=== PATIENT | female | born 1985 | race Caucasian/White ===

== ENCOUNTER 2016-07-07 12:25 | Emergency (ER) | payer OTHER ==
[~2016-07-07] VITALS: Ht 152.4 cm; Wt 105.0 kg
[~2016-07-07 12:25] MED LIST: ALBUAER19 INH; BUSP15TA70 PO; TIZA4CAP PO
[2016-07-07 12:39] VITALS: TEMP 36.7; Ht 152.4 cm; Wt 105.0 kg
[2016-07-07] MEDS ORDERED: SODIUM CHLORIDE 0.9% 1000ML 1,000 ML IV STA (13:09)
[2016-07-07] MEDS ORDERED: MoRPHine SULFATE 10 MG/ML CARP/VIAL IV STA (13:09)
[2016-07-07] MEDS ORDERED: ONDANSETRON INJ 2 MG/ML 2 ML VIAL IV STA (13:09)
[2016-07-07 13:36] LABS: BASO % 0.5 %; BASO ABS # 0.04 K/uL (0-0.2); COMPLETE YES; EOS % 1.3 %; HEMATOCRIT 38.7 % (37-47); IG% 0.3 %; LYMPH % 19.6 %; MEAN CELL VOLUME 88.6 fL (80-100); MEAN CORPUSCULAR HEMOGLOBIN 30.7 pg (25-34); MEAN CORPUSCULAR HGB CONC 34.6 g/dl (32-36); MEAN PLATELET VOLUME 9.7 fL (7.4-10.4); MONO % 5.7 %; NEUT % 72.6 %; PLATELET COUNT 280 K/uL (130-400); RED BLOOD COUNT 4.37 M/uL (4.2-5.4); WHITE BLOOD COUNT 7.66 K/uL (4.8-10.8)
[2016-07-07 14:03] LABS: BUN/CREATININE RATIO 12.2 (10-20); CALCIUM 9.2 mg/dl (8.5-10.1); CREATININE 0.72 mg/dl (0.60-1.20); POTASSIUM 3.5 mmol/L (3.5-5.1)
--- NOTE | 2016-07-07 14:11 | DIAGNOSTIC IMAGING REPORT ---
L-SPINE MIN 4 VIEWS ROUTINE CLINICAL HISTORY: Fall, back pain COMPARISON STUDY: 09/28/2015 FINDINGS: The bones are osteopenic. There is gaseous distention of the colon. There is an exaggerated lumbar lordosis. No acute fractures or traumatic subluxations are visualized. There are postsurgical changes of a presumed prior posterior spinal decompression. There is gaseous distention of the colon. IMPRESSION: 1. Exaggerated lumbar lordosis. No acute fractures or traumatic subluxations identified 2. Gaseous distention of the colon Electronically signed by: Jeff Oro M.D. 07/07/2016 2:09 PM Dictated Date/Time: 07/07/2016 2:07 PM
--- NOTE | 2016-07-07 14:13 | DIAGNOSTIC IMAGING REPORT ---
PELVIS/RIGHT HIP 2-3VIEWS CLINICAL HISTORY: Fall, back pain, right hip pain Right COMPARISON STUDY: None. FINDINGS: No fracture or dislocation within the pelvis or hips. The sacrum appears intact. Soft tissues are unremarkable. IMPRESSION: No fracture or dislocation within the pelvis or hips. Electronically signed by: Jonn Ling M.D. 07/07/2016 2:12 PM Dictated Date/Time: 07/07/2016 2:09 PM
--- NOTE | 2016-07-07 14:14 | DIAGNOSTIC IMAGING REPORT ---
THORACIC SPINE 3 VIEWS ROUTINE CLINICAL HISTORY: Fall, back pain COMPARISON STUDY: 05/02/2015 FINDINGS: The paraspinal line is not displaced. No acute fractures are visualized. There are no subluxations. There are minimal degenerative changes. There are surgical clips in the right upper quadrant consistent with a prior cholecystectomy. IMPRESSION: No acute fractures or subluxations identified. Electronically signed by: Jeff Oro M.D. 07/07/2016 2:12 PM Dictated Date/Time: 07/07/2016 2:11 PM
[2016-07-07] MEDS ORDERED: MoRPHine SULFATE 4 MG/ML 1 ML CARP\\VIAL IV STA (14:23)
--- NOTE | 2016-07-07 15:33 | DIAGNOSTIC IMAGING REPORT ---
LUMBAR SPINE CT CT DOSE: 3970.13 mGy.cm HISTORY: Fall, back pain, severe pain TECHNIQUE: Multiaxial CT images of the lumbar spine were performed and reformatted in the sagittal and coronal plane without the use of contrast. COMPARISON: Lumbar spine MRI 07/14/2013. Lumbar spine radiograph 07/07/2016. 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 Exaggeration of the lumbar lordosis. Partial fusion of the narrowed L5-S1 disc space remains unchanged. There are laminectomies at L3 and S1. There is fusion of the L5-S1 facets. Moderate facet degenerative changes within the mid to lower lumbar spine. No acute fracture or subluxation. Soft tissue density within the subcutaneous fat of the lower lumbar region favors postoperative change/scarring. IMPRESSION: 1. No acute fractures or subluxation within the lumbar spine. 2. Postoperative changes as described above. Electronically signed by: Jonn Ling M.D. 07/07/2016 3:31 PM Dictated Date/Time: 07/07/2016 3:25 PM
--- NOTE | 2016-07-07 15:34 | DIAGNOSTIC IMAGING REPORT ---
CT PELVIS NO IV/ORAL CONT (CT) CT DOSE: CLINICAL HISTORY: Severe pelvic pain status post trauma TECHNIQUE: Helical images were acquired in the transverse plane. Reformatted images were acquired COMPARISON STUDY: CT scan of the abdomen pelvis dated 06/03/2015 FINDINGS: There is no evidence of SI joint diastases. There is no evidence of symphysis diastases. No acute fractures are visualized. There is a stable spur/osteochondroma arising from the posterior aspect of the right iliac bone. The uterus is surgically absent. There is no free pelvic fluid. There is mild fecal retention. There are postsurgical changes present within the lumbar spine. IMPRESSION: 1. Postsurgical changes within the lumbar spine 2. No acute fractures or subluxations are visualized. Electronically signed by: Jeff Oro M.D. 07/07/2016 3:32 PM Dictated Date/Time: 07/07/2016 3:28 PM
--- NOTE | 2016-07-07 15:41 | DIAGNOSTIC IMAGING REPORT ---
THORACIC SPINE CT CT DOSE: HISTORY: Fall, back pain, severe pain TECHNIQUE: Multiaxial CT images of the thoracic spine were performed and reformatted in the sagittal and coronal plane without the use of contrast. COMPARISON: Thoracic spine 07/07/2016. FINDINGS: There is bilateral lower lobe subsegmental atelectasis. No pneumothorax. The paraspinal soft tissues are unremarkable. Mild degenerative disc disease throughout the thoracic spine with tiny endplate osteophytes. Vertebral body heights are maintained. No fracture or subluxation within the thoracic spine. IMPRESSION: No fractures within the thoracic spine. Electronically signed by: Jonn Ling M.D. 07/07/2016 3:40 PM Dictated Date/Time: 07/07/2016 3:31 PM
[2016-07-07] MEDS ORDERED: DiphenhydrAMINE HCL 50 MG/ML VIAL IV STA (16:34)
[2016-07-07] MEDS ORDERED: HYDROmorphone INJ 0.5 MG/0.5 ML SYR IV STA (17:04)
--- NOTE | 2016-07-07 17:17 | EMERGENCY ROOM VISIT NOTE ---
History First contact with patient: 12:56 Chief Complaint: BACK PAIN Stated Complaint: BACK AND HIP PAIN History of Present Illness The patient is a 30 year old female who presents to the Emergency Room with complaints of "back and hip pain". The patient states that around 8:30 AM she was at home, and was walking and believe her right leg gave out on her, causing her to slip and her legs buckled under her and she fell down, twisting her back and striking her right hip, buttock and right lower back off of the floor. She was able to stand up with help then. She points to her right lower back and right hip as a location of the pain. She states these regions feels that they are popping. She also has a shooting pain going down her leg on the right. She rates her pain as a 9/10 and notes she can take morphine or Dilaudid and usually takes Zofran for nausea. She notes she also has cervical palsy. The patient notes that she has not had any incontinence. She does believe that her leg does feel little weak and she doesn't believe that her genital region does feel a little numb. Review of Systems A complete 10-point Review of Systems was discussed with the patient, with pertinent positives and negatives listed in the History of Present Illness. All remaining Review of Systems questions can be considered negative unless otherwise specified. Past Medical/Surgical History Medical Problems: (1) Anxiety disorder (2) Asthma (3) Cerebral palsy (4) Depression (5) GERD (gastroesophageal reflux disease) (6) Hypertension (7) Insulin resistance (8) lysis of adhesions (9) MRSA (methicillin resistant Staphylococcus aureus) (10) Paralysis of both lower limbs (11) Suicidal ideations Surgical Problems: (1) H/O dilation and curettage (2) H/O shoulder surgery (3) History of hysterectomy (4) History of laminectomy (5) Hx of cholecystectomy (6) Hx of eye surgery (7) Hx of spinal fusion (8) S/P surgical manipulation of ankle joint Family History Diabetes mellitus FHx: gallbladder disease Hypertension Social History Smoking Status: Never Smoker Alcohol Use: none Drug Use: none Marital Status: single Housing Status: lives alone Occupation Status: employed, disabled Current/Historical Medications Scheduled Baclofen (Lioresal), 10 MG PO TID Buspirone Hcl (Buspar), 10 MG PO TID Cetirizine (Zyrtec), 10 MG PO QAM Diazepam (Valium), 5 MG PO BID Duloxetine Hcl (Cymbalta), 60 MG PO QAM Duloxetine Hcl (Cymbalta), 20 MG PO QAM Esomeprazole Magnesium (Nexium), 40 MG PO DAILY Fluticasone-Salmeterol 115/21 Mcg (Advair Hfa 115/21 Mcg), 1 PUFF INH BID Lactobacillus-Inulin (Culturelle), 1 CAP PO QAM Lisinopril (Lisinopril), 10 MG PO DAILY Mometasone Furoate-Formoterol (Dulera 200/5 Mcg), 2 PUFFS INH BID Montelukast Sodium (Singulair), 10 MG PO HS Topiramate (Topamax), 200 MG PO BID Scheduled PRN Albuterol Inhaler (Ventolin Inhaler), 2 PUFFS INH QID PRN for RESP SX Allergies Coded Allergies: Aztreonam (Verified Allergy, Severe, SHORTNESS OF BREATH, 07/07/16) Cephalosporins (Verified Allergy, Severe, SHORTNESS OF BREATH, 07/07/16) Linezolid (Verified Allergy, Severe, SHORTNESS OF BREATH, 07/07/16) Penicillins (Verified Allergy, Severe, SHORTNESS OF BREATH, 07/07/16) Sulfa Antibiotics (Verified Allergy, Severe, SHORTNESS OF BREATH, 07/07/16) TOLERATED TAMSULOSIN; REPORTS SOB WITH BACTRIM Fexofenadine (Verified Allergy, Intermediate, HIVES, 07/07/16) Oxycodone (Verified Allergy, Intermediate, HIVES-ABLE TO TAKE DILAUDID, ) Beta Adrenergic Blockers (Verified Allergy, Unknown, unknown, 07/07/16) Latex1 -Allergic Contact Dermititis (Verified Allergy, Unknown, RASH, 07/07) Meperidine (Verified Allergy, Unknown, RESPIRATORY DISTRESS, 07/07/16) Neomycin (Verified Allergy, Unknown, 07/07/16) Propoxyphene (Verified Allergy, Unknown, UNKNOWN, 07/07/16) Quinolones (Verified Allergy, Unknown, QUINOLONES-SOB, CAN TAKE CIPRO W/O PROBLEM, 07/07/16) Pt denies cipro allergy. States she has taken in the past Tetracycline (Verified Allergy, Unknown, 07/07/16) Verapamil (Verified Allergy, Unknown, UNKNOWN, 07/07/16) Physical Exam Vital Signs Date Time Temp Pulse Resp B/P Pulse Ox O2 Delivery O2 Flow Rate FiO2 07/07/16 17:51 65 20 107/73 94 07/07/16 16:49 110 21 107/73 94 Room Air 07/07/16 14:38 93 20 110/62 98 Room Air 07/07/16 12:39 36.7 101 18 132/83 98 Room Air Pain Rating (0-10): 10.0 Physical Exam VITAL SIGNS - Vital signs and nursing notes were reviewed. Patient is afebrile , normotensive, she is slightly tachycardic at a rate of 101 bpm, but saturating on room air 98%. GENERAL -30-year-old female appearing her stated age who is in no acute distress. Communicates well with provider and answers questions appropriately. SKIN - Without rashes. No breaks in the integument. HEAD - NC/AT. EYES - PERRL with EOMI bilaterally. Sclera anicteric. Palpebral conjunctiva pink and moist with no injection noted. EARS - No deformities of external structures noted on gross examination bilaterally. NOSE - Midline and without cyanosis. No epistaxis or purulent drainage noted. MOUTH/OROPHARYNX - Without perioral cyanosis. NECK/MUSUCULOSKEKETAL - Neck with FROM. No C-spine tenderness. There is tenderness to palpation overlying the thoracic, lumbar and right hip region. LUNGS - Chest wall symmetric without accessory muscle use, intercostals retractions, or central cyanosis. Normal vesicular breath sounds CTA B/L. No wheezes, rales, or rhonchi appreciated. CARDIAC - RRR with S1/S2. No murmur, rubs, or gallops appreciated. ABDOMEN - Abdominal contour without pulsations or visible masses. BS normoactive all four quadrants. No tenderness, palpable masses, hepatosplenomegaly, or ascites noted. EXTREMITIES - No clubbing or peripheral cyanosis. No pretibial edema present. Patient vascular intact in her extremities. +5/5 strength noted in UE/LE bilaterally. No evidence of cauda equina syndrome. NEUROLOGIC - Cranial nerves II through XII grossly intact. Sensory intact to light touch throughout. PSYCH - A&Ox3 and cooperates fully with examiner. Pt is very pleasant and interacts well with examiner. Medical Decision & Procedures ER Provider Diagnostic Interpretation: LUMBAR SPINE CT CT DOSE: 3970.13 mGy.cm HISTORY: Fall, back pain, severe pain TECHNIQUE: Multiaxial CT images of the lumbar spine were performed and reformatted in the sagittal and coronal plane without the use of contrast. COMPARISON: Lumbar spine MRI 07/14/2013. Lumbar spine radiograph 07/07/2016. 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 Exaggeration of the lumbar lordosis. Partial fusion of the narrowed L5-S1 disc space remains unchanged. There are laminectomies at L3 and S1. There is fusion of the L5-S1 facets. Moderate facet degenerative changes within the mid to lower lumbar spine. No acute fracture or subluxation. Soft tissue density within the subcutaneous fat of the lower lumbar region favors postoperative change/scarring. IMPRESSION: 1. No acute fractures or subluxation within the lumbar spine. 2. Postoperative changes as described above. Electronically signed by: Jonn Ling M.D. 07/07/2016 3:31 PM Dictated Date/Time: 07/07/2016 3:[address] PELVIS NO IV/ORAL CONT (CT) CT DOSE: CLINICAL HISTORY: Severe pelvic pain status post trauma TECHNIQUE: Helical images were acquired in the transverse plane. Reformatted images were acquired COMPARISON STUDY: CT scan of the abdomen pelvis dated 06/03/2015 FINDINGS: There is no evidence of SI joint diastases. There is no evidence of symphysis diastases. No acute fractures are visualized. There is a stable spur/osteochondroma arising from the posterior aspect of the right iliac bone. The uterus is surgically absent. There is no free pelvic fluid. There is mild fecal retention. There are postsurgical changes present within the lumbar spine. IMPRESSION: 1. Postsurgical changes within the lumbar spine 2. No acute fractures or subluxations are visualized. Electronically signed by: Jeff Oro M.D. 07/07/2016 3:32 PM Dictated Date/Time: 07/07/2016 3:[address] DOSE: HISTORY: Fall, back pain, severe pain TECHNIQUE: Multiaxial CT images of the thoracic spine were performed and reformatted in the sagittal and coronal plane without the use of contrast. COMPARISON: Thoracic spine 07/07/2016. FINDINGS: There is bilateral lower lobe subsegmental atelectasis. No pneumothorax. The paraspinal soft tissues are unremarkable. Mild degenerative disc disease throughout the thoracic spine with tiny endplate osteophytes. Vertebral body heights are maintained. No fracture or subluxation within the thoracic spine. IMPRESSION: No fractures within the thoracic spine. Electronically signed by: Jnon Ling M.D. 07/07/2016 3:40 PM Dictated Date/Time: 07/07/2016 3:31 PM PELVIS/RIGHT HIP 2-3VIEWS CLINICAL HISTORY: Fall, back pain, right hip pain Right COMPARISON STUDY: None. FINDINGS: No fracture or dislocation within the pelvis or hips. The sacrum appears intact. Soft tissues are unremarkable. IMPRESSION: No fracture or dislocation within the pelvis or hips. Electronically signed by: Jonn Ling M.D. 07/07/2016 2:12 PM Dictated Date/Time: 07/07/2016 2:09 PM L-SPINE MIN 4 VIEWS ROUTINE CLINICAL HISTORY: Fall, back pain COMPARISON STUDY: 09/28/2015 FINDINGS: The bones are osteopenic. There is gaseous distention of the colon. There is an exaggerated lumbar lordosis. No acute fractures or traumatic subluxations are visualized. There are postsurgical changes of a presumed prior posterior spinal decompression. There is gaseous distention of the colon. IMPRESSION: 1. Exaggerated lumbar lordosis. No acute fractures or traumatic subluxations identified 2. Gaseous distention of the colon Electronically signed by: Jeff Oro M.D. 07/07/2016 2:09 PM Dictated Date/Time: 07/07/2016 2:07 PM THORACIC SPINE 3 VIEWS ROUTINE CLINICAL HISTORY: Fall, back pain COMPARISON STUDY: 05/02/2015 FINDINGS: The paraspinal line is not displaced. No acute fractures are visualized. There are no subluxations. There are minimal degenerative changes. There are surgical clips in the right upper quadrant consistent with a prior cholecystectomy. IMPRESSION: No acute fractures or subluxations identified. Electronically signed by: Jeff Oro M.D. 07/07/2016 2:12 PM Dictated Date/Time: 07/07/2016 2:11 PM Laboratory Results 07/07/16 13:20 Red Blood Count 4.37, Mean Corpuscular Volume 88.6, Mean Corpuscular Hemoglobin 30.7, Mean Corpuscular Hemoglobin Concent 34.6, Mean Platelet Volume 9.7, Neutrophils (%) (Auto) 72.6, Lymphocytes (%) (Auto) 19.6, Monocytes (%) (Auto) 5.7, Eosinophils (%) (Auto) 1.3, Basophils (%) (Auto) 0.5, Neutrophils # (Auto) 5.56, Lymphocytes # (Auto) 1.50, Monocytes # (Auto) 0.44, Eosinophils # (Auto) 0.10, Basophils # (Auto) 0.04 07/07/16 13:20 Test 07/07/16 13:20 White Blood Count 7.66 K/uL (4.8-10.8) Red Blood Count 4.37 M/uL (4.2-5.4) Hemoglobin 13.4 g/dL (12.0-16.0) Hematocrit 38.7 % (37-47) Mean Corpuscular Volume 88.6 fL (80-100) Mean Corpuscular Hemoglobin 30.7 pg (25-34) Mean Corpuscular Hemoglobin Concent 34.6 g/dl (32-36) Platelet Count 280 K/uL (130-400) Mean Platelet Volume 9.7 fL (7.4-10.4) Neutrophils (%) (Auto) 72.6 % Lymphocytes (%) (Auto) 19.6 % Monocytes (%) (Auto) 5.7 % Eosinophils (%) (Auto) 1.3 % Basophils (%) (Auto) 0.5 % Neutrophils # (Auto) 5.56 K/uL (1.4-6.5) Lymphocytes # (Auto) 1.50 K/uL (1.2-3.4) Monocytes # (Auto) 0.44 K/uL (0.11-0.59) Eosinophils # (Auto) 0.10 K/uL (0-0.5) Basophils # (Auto) 0.04 K/uL (0-0.2) RDW Standard Deviation 49.6 fL (36.4-46.3) RDW Coefficient of Variation 15.3 % (11.5-14.5) Immature Granulocyte % (Auto) 0.3 % Immature Granulocyte # (Auto) 0.02 K/uL (0.00-0.02) Anion Gap 11.0 mmol/L (3-11) Est Creatinine Clear Calc Drug Dose 126.1 ml/min Estimated GFR () 131.2 Estimated GFR (Non- 113.2 BUN/Creatinine Ratio 12.2 (10-20) Calcium Level 9.2 mg/dl (8.5-10.1) Medications Administered Medications (Trade) Dose Ordered Sig/[place] Route Start Time Stop Time Status Last Admin Dose Admin Sodium Chloride (Nss 1000ml) 1,000 ml @ 999 mls/hr Q1H1M STAT IV 07/07/16 13:09 07/07/16 14:09 DC 07/07/16 13:22 999 MLS/HR Morphine Sulfate (MoRPHine SULFATE INJ) 6 mg NOW STAT IV 07/07/16 13:09 07/07/16 13:13 DC 07/07/16 13:22 6 MG Ondansetron HCl (Zofran Inj) 4 mg NOW STAT IV 07/07/16 13:09 07/07/16 13:13 DC 07/07/16 13:22 4 MG Morphine Sulfate (MoRPHine SULFATE INJ) 4 mg NOW STAT IV 07/07/16 14:23 07/07/16 14:25 DC 07/07/16 14:36 4 MG Diphenhydramine HCl (Benadryl Inj) 25 mg NOW STAT IV 07/07/16 16:34 07/07/16 16:35 DC 07/07/16 16:47 25 MG Hydromorphone HCl (Dilaudid Inj) 0.25 mg NOW STAT IV 07/07/16 17:04 07/07/16 17:05 DC 07/07/16 17:38 0.25 MG Medical Decision Patient was seen and evaluated as above. After obtaining a thorough history and physical examination IV access was obtained and a CBC, PRP, UA clean catch culture if indicated was ordered secondary to subjective and objective examination findings. For imaging thoracic spine, L-spine and pelvis with unilateral hip of the right was ordered secondary to subjective and objective examination findings. 6 mg of morphine and 4 mg of Zofran were ordered secondary to pain. 1000 mL of NSS secondary to her appearing to be slightly dehydrated. The Zofran was to help with any nausea. Results as above of the radiographs. I agree with the radiologists findings. In the absence of any fracture but with persistence of the patient's pain I was concerned for underlying occult fracture. CT scan of the lumbar, thoracic and pelvic region was ordered to rule out occult fracture. Results as above. Negative for acute findings. Incidental findings discussed with the patient. She then requested more pain medication therefore an additional 4 mg of morphine was provided to the patient as well as 25 mg of Benadryl per her request as she noted that she was experiencing itching but states this is a typical side effect of these medications and did request them. CBC reveals no leukocytosis or anemia. PRP revealed normal electrolytes with slight elevation in chloride at 111. No evidence of kidney failure. She was then reevaluated and still noted to be feeling pain and requested Dilaudid. I was very hesitant to do such but did agree to provide her with 0.25 mg of Dilaudid after a period of time and also to ensure that she did not have any respiratory depression. She initially wanted a voucher to go home or have the ambulance take her home but I started her that ambulance would not be able to take her home but I could perhaps request a voucher for taxi. She then noted that her mother would be coming to pick her up. The patient at this time I believe is stable for discharge and does not have any fractures and is likely experiencing musculoskeletal strain without emergent findings. The incidental findings she is to follow-up with her family doctor for. She was educated upon management of today's findings. She was educated upon worrisome symptoms in which to return. She had questions answered prior to discharge and was discharged home in good condition. In the evaluation and treatment of this patient the following differential diagnoses were entertained: Contusion of the spine, fracture of the thoracic, lumbar, pelvis and hip region, malingering, factitious disorder, drug-seeking behavior, among others. I do not suspect cauda equina syndrome in this case. [place] Drug Monitoring Program Search Results: patient reviewed within database, no issues identified Impression Primary Impression: Fall Additional Impression: Back pain due to injury Departure Information Dispostion Home / Self-Care Condition GOOD Referrals No Doctor, Assigned (PCP) Patient Instructions [facility] Additional Instructions You have been treated in the Emergency Department for Back Pain after a fall. You have received pain medicine in the emergency department which impairs your ability to operate a vehicle. It is illegal for you to drive after receiving these medicines. 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 PLEASE FOLLOW UP WITH YOUR FAMILY DOCTOR FOR THIS If this is an acute injury, ice can be applied to the area of pain for the first 3 days to help decrease pain and inflammation. After the first 3 days, a heating pad can be used over the area for continued soothing relief. You should schedule a follow-up appointment in 2-3 days with your Primary Care Provider for further evaluation and treatment of your back pain. Return to the Emergency Department if your current symptoms worsen despite treatment course outlined above, or if you develop any of the following symptoms : intractable pain despite aforementioned treatment course, loss of control of your bowel or bladder, numbness or tingling in your groin, or development of a fever. Problem Qualifiers Primary Impression: Fall Encounter type: initial encounter Qualified Codes: W19.XXXA - Unspecified fall, initial encounter
[2016-07-07 17:51] VITALS: BP 107/73; PULSE 65; O2SAT 94
[2016-07-11] MEDS ORDERED: NXM/40 PO (13:54)
[2016-07-11] MEDS ORDERED: DULO60CA44 PO (13:54)
[2016-08-18] MEDS ORDERED: DULO-24 PO (14:29)
[2016-12-17] MEDS ORDERED: NXM/40 PO (06:51)
[2016-12-17] MEDS ORDERED: CETI10TA84 PO (13:34)
[2016-12-17] MEDS ORDERED: LISI-461 PO (13:47)
[2016-12-17] MEDS ORDERED: LACT10CA3 PO (14:30)
[2016-12-17] MEDS ORDERED: FLUT115A INH (14:31)
[2016-12-17] MEDS ORDERED: ONDA4TAB10 SL (15:11)
[2016-12-17] MEDS ORDERED: VLM5CL PO (15:11)
[2016-12-17] MEDS ORDERED: PRVHFAIN INH (15:57)
[2016-12-17] MEDS ORDERED: CMP/10 PO (17:09)
== END 2016-07-07 17:52 | disposition home or self-care (01) ==
LOC: C.EDB 12:30 → C.EDC 17:52
DX: M54.9 Dorsalgia, unspecified (principal); W01.0XXA Fall on same level from slipping, tripping and stumbling without subsequent striking against object, initial encounter; F41.9 Anxiety disorder, unspecified; G80.9 Cerebral palsy, unspecified; F32.9 Major depressive disorder, single episode, unspecified; K21.9 Gastro-esophageal reflux disease without esophagitis; I10 Essential (primary) hypertension

== ENCOUNTER 2016-07-09 10:55 | Emergency (ER) | payer OTHER ==
[~2016-07-09] VITALS: Ht 152.4 cm; Wt 105.0 kg
[~2016-07-09 10:55] MED LIST changes: -TIZA4CAP PO
[2016-07-09 11:05] VITALS: Ht 152.4 cm; Wt 105.0 kg
[2016-07-09] MEDS ORDERED: HYDROmorphone INJ 2 MG/ML SYR/VIAL IM STA (11:42)
[2016-07-09] MEDS ORDERED: DiphenhydrAMINE HCL 50 MG/ML VIAL IM STA (12:19)
[2016-07-09] MEDS ORDERED: HYDROmorphone INJ 1 MG/ML SYR IV STA (14:10)
[2016-07-09] MEDS ORDERED: LORAZEPAM 2 MG/ML 1 ML VIAL IV STA (14:10)
[2016-07-09] MEDS ORDERED: LORAZEPAM 1 MG TAB PO STA (15:17)
[2016-07-09] MEDS ORDERED: HYDROmorphone INJ 1 MG/ML SYR IM STA ×2 (15:17→17:27)
--- NOTE | 2016-07-09 16:30 | DIAGNOSTIC IMAGING REPORT ---
MRI LUMBAR SPINE W/O CONTRAST CLINICAL HISTORY: Back pain, trauma, lower extremity numbness. TECHNIQUE: Sagittal and axial T1, T2 and STIR images were obtained. COMPARISON STUDY: CT scan dated 07/07/2016 OBSERVATIONS: The vertebral bodies and posterior elements appear intact. There is no abnormal bony signal present to suggest a marrow replacement process. L1-2: No disc protrusions or extrusions. No evidence of spinal canal or neural foraminal compromise. L2-3: No disc protrusions or extrusions. No evidence of spinal canal or neural foraminal compromise. Postlaminectomy changes are visualized. L3-4: There is a circumferential disc bulge. There are equivocal small foraminal disc protrusions. There is mild bilateral foraminal narrowing. There are postlaminectomy changes. There is no significant spinal stenosis L4-5: There is a mild circumferential disc bulge. There are postlaminectomy changes. There is no significant spinal or foraminal stenosis. L5-S1: There is an annular fissure. There are postlaminectomy changes. There is no significant spinal or foraminal stenosis. The conus medullaris and cauda equina appear normal. IMPRESSION: 1. There are no areas of marrow edema to indicate occult fracture 2. No lesions of the distal spinal cord are visualized. 3. Postlaminectomy changes at the L2-L5 level 4. L3-4 disc bulge/protrusion. No evidence of spinal stenosis. Mild bilateral foraminal narrowing. Electronically signed by: Jeff Oro M.D. 07/09/2016 4:29 PM Dictated Date/Time: 07/09/2016 4:22 PM
[2016-07-09 17:07] LABS: URINE APPEARANCE CLEAR (CLEAR); URINE BILIRUBIN NEG (NEG); URINE COLOR YELLOW; URINE EPITHELIAL CELL AUTO >30 /lpf (0-5); URINE NITRITE NEG (NEG); URINE PH 5.5 (4.5-7.5); URINE SPECIFIC GRAVITY 1.019 (1.000-1.030); UROBILINOGEN NEG (NEG); ZZURINE CULT IF INDIC CATH NO
[2016-07-09 17:11] LABS: MANUAL MICROSCOPIC REQUIRED? NO; REVIEW REQ? YES
[2016-07-09 17:23] VITALS: BP 126/78; PULSE 77; O2SAT 98
--- NOTE | 2016-07-09 17:27 | EMERGENCY ROOM VISIT NOTE ---
History First contact with patient: 11:27 Chief Complaint: BACK PAIN Stated Complaint: INCREASED BACK AND LEG PAIN History of Present Illness The patient is a 30 year old female who presents to the Emergency Room with complaints of low back pain. The patient reports that she fell 2 days ago and was seen here. She states that she had imaging done at that time which was negative. She states that her pain is worsening and while she was at physical therapy today her pain worsened significantly. She states the pain is in her low back and she rates it a 9/10. She reports that she is having difficulty walking and moving secondary to pain. The patient does have chronic back issues and states that she sees [facility] neurology for these problems. She has been taking ibuprofen without relief. She denies any new numbness, weakness , urinary retention or incontinence. Review of Systems A complete 10-point Review of Systems was discussed with the patient, with pertinent positives and negatives listed in the History of Present Illness. All remaining Review of Systems questions can be considered negative unless otherwise specified. Past Medical/Surgical History Medical Problems: (1) Anxiety disorder (2) Asthma (3) Cerebral palsy (4) Depression (5) GERD (gastroesophageal reflux disease) (6) Hypertension (7) Insulin resistance (8) lysis of adhesions (9) MRSA (methicillin resistant Staphylococcus aureus) (10) Paralysis of both lower limbs (11) Suicidal ideations Surgical Problems: (1) H/O dilation and curettage (2) H/O shoulder surgery (3) History of hysterectomy (4) History of laminectomy (5) Hx of cholecystectomy (6) Hx of eye surgery (7) Hx of spinal fusion (8) S/P surgical manipulation of ankle joint Family History Diabetes mellitus FHx: gallbladder disease Hypertension Social History Smoking Status: Never Smoker Alcohol Use: none Drug Use: none Marital Status: single Housing Status: lives alone Occupation Status: employed, disabled Current/Historical Medications Scheduled Baclofen (Lioresal), 10 MG PO TID Buspirone Hcl (Buspar), 10 MG PO TID Cetirizine (Zyrtec), 10 MG PO QAM Diazepam (Valium), 5 MG PO BID Duloxetine Hcl (Cymbalta), 60 MG PO QAM Duloxetine Hcl (Cymbalta), 20 MG PO QAM Esomeprazole Magnesium (Nexium), 40 MG PO DAILY Fluticasone-Salmeterol 115/21 Mcg (Advair Hfa 115/21 Mcg), 1 PUFF INH BID Lactobacillus-Inulin (Culturelle), 1 CAP PO QAM Lisinopril (Lisinopril), 10 MG PO DAILY Mometasone Furoate-Formoterol (Dulera 200/5 Mcg), 2 PUFFS INH BID Montelukast Sodium (Singulair), 10 MG PO HS Topiramate (Topamax), 200 MG PO BID Scheduled PRN Albuterol Inhaler (Ventolin Inhaler), 2 PUFFS INH QID PRN for RESP SX Allergies Coded Allergies: Aztreonam (Verified Allergy, Severe, SHORTNESS OF BREATH, 07/09/16) Cephalosporins (Verified Allergy, Severe, SHORTNESS OF BREATH, 07/09/16) Linezolid (Verified Allergy, Severe, SHORTNESS OF BREATH, 07/09/16) Penicillins (Verified Allergy, Severe, SHORTNESS OF BREATH, 07/09/16) Sulfa Antibiotics (Verified Allergy, Severe, SHORTNESS OF BREATH, 07/09/16) TOLERATED TAMSULOSIN; REPORTS SOB WITH BACTRIM Fexofenadine (Verified Allergy, Intermediate, HIVES, 07/09/16) Oxycodone (Verified Allergy, Intermediate, HIVES-ABLE TO TAKE DILAUDID, ) Beta Adrenergic Blockers (Verified Allergy, Unknown, unknown, 07/09/16) Latex1 -Allergic Contact Dermititis (Verified Allergy, Unknown, RASH, 07/09) Meperidine (Verified Allergy, Unknown, RESPIRATORY DISTRESS, 07/09/16) Neomycin (Verified Allergy, Unknown, 07/09/16) Propoxyphene (Verified Allergy, Unknown, UNKNOWN, 07/09/16) Quinolones (Verified Allergy, Unknown, QUINOLONES-SOB, CAN TAKE CIPRO W/O PROBLEM, 07/09/16) Pt denies cipro allergy. States she has taken in the past Tetracycline (Verified Allergy, Unknown, 07/09/16) Verapamil (Verified Allergy, Unknown, UNKNOWN, 07/09/16) Physical Exam Vital Signs Date Time Temp Pulse Resp B/P Pulse Ox O2 Delivery O2 Flow Rate FiO2 07/09/16 17:23 77 20 126/78 98 Room Air 07/09/16 15:28 90/60 NIBP 07/09/16 15:20 88/57 07/09/16 15:18 81 18 89/44 96 Room Air 07/09/16 12:55 100 132/71 94 07/09/16 11:05 36.6 88 18 130/89 98 Room Air Physical Exam VITALS: Vitals are noted on the nurse's note and reviewed by myself. Vital signs stable. GENERAL: This is a 30-year-old female, in no acute distress, nondiaphoretic, well-developed well-nourished. SKIN: Capillary reflex less than 2 seconds. HEENT: Normocephalic. PERRLA. EOMI. Nares patent. Mucous membranes moist. Neck is supple without nuchal rigidity. HEART: Regular rate and rhythm without murmurs gallops or rubs. LUNGS: Clear to auscultation bilaterally without wheezes, rales or rhonchi. No retractions or accessory muscle use. ABDOMEN: Positive bowel sounds x 4. Soft, nontender to palpation. MUSCULOSKELETAL: Minimal tenderness to palpation of the lumbar region without focal tenderness. Full range of motion of the spine. Full range of motion of bilateral lower extremity. Strength 5/5. NEURO: Patient was alert and oriented to person place and time. Normal sensation to light and sharp touch. Deep tendon reflexes 2+ throughout. No focal neurological deficits. Medical Decision & Procedures ER Provider Diagnostic Interpretation: MRI LUMBAR SPINE W/O CONTRAST CLINICAL HISTORY: Back pain, trauma, lower extremity numbness. TECHNIQUE: Sagittal and axial T1, T2 and STIR images were obtained. COMPARISON STUDY: CT scan dated 07/07/2016 OBSERVATIONS: The vertebral bodies and posterior elements appear intact. There is no abnormal bony signal present to suggest a marrow replacement process. L1-2: No disc protrusions or extrusions. No evidence of spinal canal or neural foraminal compromise. L2-3: No disc protrusions or extrusions. No evidence of spinal canal or neural foraminal compromise. Postlaminectomy changes are visualized. L3-4: There is a circumferential disc bulge. There are equivocal small foraminal disc protrusions. There is mild bilateral foraminal narrowing. There are postlaminectomy changes. There is no significant spinal stenosis L4-5: There is a mild circumferential disc bulge. There are postlaminectomy changes. There is no significant spinal or foraminal stenosis. L5-S1: There is an annular fissure. There are postlaminectomy changes. There is no significant spinal or foraminal stenosis. The conus medullaris and cauda equina appear normal. IMPRESSION: 1. There are no areas of marrow edema to indicate occult fracture 2. No lesions of the distal spinal cord are visualized. 3. Postlaminectomy changes at the L2-L5 level 4. L3-4 disc bulge/protrusion. No evidence of spinal stenosis. Mild bilateral foraminal narrowing. Laboratory Results Test 07/09/16 16:47 Urine Color YELLOW Urine Appearance CLEAR (CLEAR) Urine pH 5.5 (4.5-7.5) Urine Specific [place] 1.019 (1.000-1.030) Urine Protein NEG (NEG) Urine Glucose (UA) NEG (NEG) Urine Ketones NEG (NEG) Urine Occult Blood NEG (NEG) Urine Nitrite NEG (NEG) Urine Bilirubin NEG (NEG) Urine Urobilinogen NEG (NEG) Urine Leukocyte Esterase SMALL (NEG) Urine WBC (Auto) 1-5 /hpf (0-5) Urine RBC (Auto) 0-4 /hpf (0-4) Urine Hyaline Casts (Auto) 5-10 /lpf (0-5) Urine Epithelial Cells (Auto) >30 /lpf (0-5) Urine Bacteria (Auto) NEG (NEG) Urine Renal Epithelial Cells /lpf (0-5) Medications Administered Medications (Trade) Dose Ordered Sig/[place] Route Start Time Stop Time Status Last Admin Dose Admin Hydromorphone HCl (Dilaudid Inj) 2 mg NOW STAT IM 07/09/16 11:42 07/09/16 11:43 DC 07/09/16 11:50 2 MG Diphenhydramine HCl (Benadryl Inj) 25 mg NOW STAT IM 07/09/16 12:19 07/09/16 12:20 DC 07/09/16 12:24 25 MG Ondansetron HCl (Zofran Odt) 4 mg ONE ONCE PO 07/09/16 17:30 07/09/16 17:31 DC 07/09/16 17:35 4 MG Hydromorphone HCl (Dilaudid Inj) 1 mg NOW STAT IM 07/09/16 17:27 07/09/16 17:28 DC 07/09/16 17:35 1 MG Medical Decision Differential diagnosis includes lumbar radiculopathy, cauda equina syndrome, cord compression, metabolic abnormality, infection, malignancy, among others. The patient was evaluated as above. Previous records were reviewed. Initially , the patient's only complaint was lumbar back pain after a fall a few days ago. Her initial physical exam was within normal limits. She was given 2 mg Dilaudid IM with minimal relief of her pain. On reexamination of the patient, she was then complaining of bilateral lower leg numbness and weakness. He did take the patient's sensation with an 18-gauge needle and she was not able to feel sharp touch on either leg. She reported she was apparently not able to move either leg at all. At that time, I did choose to perform an MRI of the lumbar spine. The patient repeatedly requested additional doses of Dilaudid, however she was mildly hypotensive and I told her that I was not comfortable giving her any further pain medication. MRI was read by radiology with minimal findings. She does have a disc bulge at L3 to L4, but there is no evidence of cord compression. The patient complained of urinary retention. A straight cath was performed and did not show any evidence of UTI. The patient was then able to void on her own. Of note, I was informed by the nurses that the patient was able to swing her legs over the bed and sit up on her own, despite her complaints of lower leg numbness and weakness. I discussed this case with the on-call neurologist, Dr. Arellano, who was very familiar with this patient. Apparently, this patient has had multiple episodes of similar symptoms in the past few years and has had extensive workup with no significant findings. He did not feel the patient needed to be admitted for further evaluation at this time given her negative MRI. I discussed findings with the patient, who will be discharged home to follow-up with her neurologist and primary care provider this week. She was given 1 additional dose of 1 mg Dilaudid prior to discharge. She verbalized understanding of my assessment and treatment plan and was discharged home with a family member driving. Impression Primary Impression: Radicular low back pain Departure Information Dispostion Home / Self-Care Condition GOOD Referrals No Doctor, Assigned (PCP) Patient Instructions My [facility] Additional Instructions You have been treated in the Emergency Department for Back Pain. You have received pain medicine in the emergency department which impairs your ability to operate a vehicle. It is illegal for you to drive after receiving these medicines. For pain control, you can use the following [id number] medicines (if >12 yo): - Regular strength (325mg/tab) Tylenol (acetaminophen) 2 tabs every 4-6 hours as needed. Do not exceed 12 tablets in a 24 hour period. Avoid taking more than 4 grams (4000 mg) of Tylenol per day. This includes any other sources of acetaminophen you may take on a regular basis. - Regular strength (200 mg/tab) Advil (ibuprofen) 1-2 tabs every 4-6 hours as needed. Do not exceed a dose of 3200 mg per day. If this is an acute injury, ice can be applied to the area of pain for the first 3 days to help decrease pain and inflammation. After the first 3 days, a heating pad can be used over the area for continued soothing relief. You should schedule a follow-up appointment in 2-3 days with your Primary Care Provider for further evaluation and treatment of your back pain. You should follow-up with your neurologist next week for further evaluation of your symptoms. Return to the Emergency Department if your current symptoms worsen despite treatment course outlined above, or if you develop any of the following symptoms : intractable pain despite aforementioned treatment course, loss of control of your bowel or bladder, numbness or tingling in your groin, or development of a fever.
[2016-07-09] MEDS ORDERED: ONDANSETRON 4MG OD TAB PO ONE (17:30)
[2016-07-11] MEDS ORDERED: DULO60CA44 PO (13:54)
[2016-07-11] MEDS ORDERED: NXM/40 PO (13:54)
[2016-08-18] MEDS ORDERED: DULO-24 PO (14:29)
[2016-12-17] MEDS ORDERED: NXM/40 PO (06:51)
[2016-12-17] MEDS ORDERED: CETI10TA84 PO (13:34)
[2016-12-17] MEDS ORDERED: LISI-461 PO (13:47)
[2016-12-17] MEDS ORDERED: LACT10CA3 PO (14:30)
[2016-12-17] MEDS ORDERED: FLUT115A INH (14:31)
[2016-12-17] MEDS ORDERED: VLM5CL PO (15:11)
[2016-12-17] MEDS ORDERED: ONDA4TAB10 SL (15:11)
[2016-12-17] MEDS ORDERED: PRVHFAIN INH (15:57)
[2016-12-17] MEDS ORDERED: CMP/10 PO (17:09)
== END 2016-07-09 17:40 | disposition home or self-care (01) ==
LOC: C.EDB 10:56 → C.EDD 17:40
DX: M54.5 Low back pain (principal); F41.9 Anxiety disorder, unspecified; G80.9 Cerebral palsy, unspecified; F32.9 Major depressive disorder, single episode, unspecified; K21.9 Gastro-esophageal reflux disease without esophagitis; I10 Essential (primary) hypertension; E88.81 Metabolic syndrome and other insulin resistance; Z90.49 Acquired absence of other specified parts of digestive tract

== ENCOUNTER 2016-07-11 14:45 | Emergency (ER) | payer OTHER ==
[~2016-07-11] VITALS: Ht 152.4 cm; Wt 108.0 kg
[~2016-07-11 14:45] MED LIST changes: +DULO60CA44 PO; +NXM/40 PO
[2016-07-11 14:49] VITALS: TEMP 36.6; Ht 152.4 cm; Wt 108.0 kg
[2016-07-11] MEDS ORDERED: FENTANYL CITRATE INJ 50 MCG/1 ML 2 ML VIAL IM ONE (16:15)
[2016-07-11 16:50] VITALS: BP 136/65; PULSE 61; O2SAT 100
--- NOTE | 2016-07-11 16:51 | DIAGNOSTIC IMAGING REPORT ---
CHEST 2 VIEWS ROUTINE CLINICAL HISTORY: fall. Rt rib pain trauma. Pain. COMPARISON STUDY: 09/10/2015 FINDINGS: The bones soft tissues and hemidiaphragms are normal. The cardiomediastinal silhouette is normal. The lungs are clear. The pulmonary vasculature is normal. IMPRESSION: Negative chest. Electronically signed by: Lawrence Roberts M.D. 07/11/2016 4:49 PM Dictated Date/Time: 07/11/2016 4:48 PM
--- NOTE | 2016-07-11 16:53 | DIAGNOSTIC IMAGING REPORT ---
CERVICAL SPINE 7 VIEWS HISTORY: Pain. Trauma. neck pain after fall COMPARISON: None. FINDINGS: The cervical spine is visualized from C1 through the superior endplate of T1. There is no fracture. No subluxation. Disc spaces are preserved. Prevertebral soft tissues and the atlantodens interval are intact. IMPRESSION: No fracture or subluxation within the cervical spine. Mild cervical scoliosis possibly related to muscular spasm Electronically signed by: Lawrence Roberts M.D. 07/11/2016 4:52 PM Dictated Date/Time: 07/11/2016 4:49 PM
--- NOTE | 2016-07-11 16:59 | EMERGENCY ROOM VISIT NOTE ---
History Report prepared by [place]: Kirsten Lopez Under the Supervision of: Dr. Samson Burnett D.O. First contact with patient: 16:09 Chief Complaint: FALL Stated Complaint: FELL IN SHOWER History of Present Illness The patient is a 30 year old female who presents to the Emergency Room with complaints of constant pain from injuries following a fall in the shower occurring earlier today. The patient rates her pain as 8/10 in severity. She notes that she is experiencing rib pain that radiates to the right side of her back. The patient is also experiencing neck pain from the angle her fall occurred. Source of History: patient Onset: earlier today Position: other (global) Quality: other (injuries from fall) Timing: constant Associated Symptoms: + back pain, + neck pain Note: The patient is experiencing rib pain. Review of Systems See HPI for pertinent positives & negatives. A total of 10 systems reviewed and were otherwise negative. Past Medical & Surgical Medical Problems: (1) Anxiety disorder (2) Asthma (3) Cerebral palsy (4) Depression (5) GERD (gastroesophageal reflux disease) (6) Hypertension (7) Insulin resistance (8) lysis of adhesions (9) MRSA (methicillin resistant Staphylococcus aureus) (10) Paralysis of both lower limbs (11) Suicidal ideations Surgical Problems: (1) H/O dilation and curettage (2) H/O shoulder surgery (3) History of hysterectomy (4) History of laminectomy (5) Hx of cholecystectomy (6) Hx of eye surgery (7) Hx of spinal fusion (8) S/P surgical manipulation of ankle joint Family History Diabetes mellitus FHx: gallbladder disease Hypertension Social History Smoking Status: Never Smoker Alcohol Use: none Drug Use: none Marital Status: single Housing Status: lives alone Occupation Status: employed, disabled Current/Historical Medications Scheduled Baclofen (Lioresal), 10 MG PO TID Buspirone Hcl (Buspirone Hcl), 10 MG PO TID Cetirizine (Zyrtec), 10 MG PO QAM Diazepam (Valium), 5 MG PO BID Duloxetine Hcl (Cymbalta), 60 MG PO QAM Duloxetine Hcl (Cymbalta), 20 MG PO QAM Esomeprazole Magnesium (Nexium), 40 MG PO DAILY Fluticasone-Salmeterol 115/21 Mcg (Advair Hfa 115/21 Mcg), 1 PUFF INH BID Lactobacillus-Inulin (Culturelle), 1 CAP PO QAM Lisinopril (Lisinopril), 10 MG PO DAILY Montelukast Sodium (Singulair), 10 MG PO HS Topiramate (Topamax), 200 MG PO BID Scheduled PRN Albuterol (Ventolin Hfa), 2 PUFFS INH QID PRN for SOB/Wheezing Mometasone Furoate-Formoterol (Dulera 200/5 Mcg), 2 PUFFS INH BID PRN for In place of Advair Allergies Coded Allergies: Aztreonam (Verified Allergy, Severe, SHORTNESS OF BREATH, 07/09/16) Cephalosporins (Verified Allergy, Severe, SHORTNESS OF BREATH, 07/09/16) Linezolid (Verified Allergy, Severe, SHORTNESS OF BREATH, 07/09/16) Penicillins (Verified Allergy, Severe, SHORTNESS OF BREATH, 07/09/16) Sulfa Antibiotics (Verified Allergy, Severe, SHORTNESS OF BREATH, 07/09/16) TOLERATED TAMSULOSIN; REPORTS SOB WITH BACTRIM Fexofenadine (Verified Allergy, Intermediate, HIVES, 07/09/16) Oxycodone (Verified Allergy, Intermediate, HIVES-ABLE TO TAKE DILAUDID, ) Beta Adrenergic Blockers (Verified Allergy, Unknown, unknown, 07/09/16) Latex1 -Allergic Contact Dermititis (Verified Allergy, Unknown, RASH, 07/09) Meperidine (Verified Allergy, Unknown, RESPIRATORY DISTRESS, 07/09/16) Neomycin (Verified Allergy, Unknown, 07/09/16) Propoxyphene (Verified Allergy, Unknown, UNKNOWN, 07/09/16) Quinolones (Verified Allergy, Unknown, QUINOLONES-SOB, CAN TAKE CIPRO W/O PROBLEM, 07/09/16) Pt denies cipro allergy. States she has taken in the past Tetracycline (Verified Allergy, Unknown, 07/09/16) Verapamil (Verified Allergy, Unknown, UNKNOWN, 07/09/16) Physical Exam Vital Signs Date Time Temp Pulse Resp B/P Pulse Ox O2 Delivery O2 Flow Rate FiO2 07/11/16 16:50 61 18 136/65 100 Room Air 07/11/16 14:49 36.6 90 18 118/74 99 Room Air Physical Exam CONSTITUTIONAL/VITAL SIGNS: Reviewed / noted above. GENERAL: Non-toxic in appearance. INTEGUMENTARY: Warm, dry, and [place]. HEAD: Normocephalic. EYES: without scleral icterus or trauma. ENT/OROPHARYNX: clear and moist. LYMPHADENOPATHY/NECK: Is supple without lymphadenopathy or meningismus. Mild cervical tenderness posteriorly. RESPIRATORY: Lungs clear and equal. CARDIOVASCULAR: Regular rate and rhythm. GI/ABDOMEN: Soft and nontender. No organomegaly or pulsatile mass. No rebound or guarding. Normal bowel sounds. EXTREMITIES: Warm and well perfused. BACK: No CVA tenderness. NEUROLOGICAL: Intact without focal deficits. PSYCHIATRIC: normal affect. MUSCULOSKELETAL: Normally developed with good muscle tone. Right chest wall tender with small abrasion to the upper chest wall. Medical Decision & Procedures ER Provider Diagnostic Interpretation: X ray results and stated below per my interpretation and radiology interpretation. CHEST 2 VIEWS ROUTINE CLINICAL HISTORY: fall. Rt rib pain trauma. Pain. COMPARISON STUDY: 09/10/2015 FINDINGS: The bones soft tissues and hemidiaphragms are normal. The cardiomediastinal silhouette is normal. The lungs are clear. The pulmonary vasculature is normal. IMPRESSION: Negative chest. Electronically signed by: Lawrence Roberts M.D. 07/11/2016 4:49 PM Dictated Date/Time: 07/11/2016 4:48 PM CERVICAL SPINE 7 VIEWS HISTORY: Pain. Trauma. neck pain after fall COMPARISON: None. FINDINGS: The cervical spine is visualized from C1 through the superior endplate of T1. There is no fracture. No subluxation. Disc spaces are preserved. Prevertebral soft tissues and the atlantodens interval are intact. IMPRESSION: No fracture or subluxation within the cervical spine. Mild cervical scoliosis possibly related to muscular spasm Electronically signed by: Lawrence Roberts M.D. 07/11/2016 4:52 PM Dictated Date/Time: 07/11/2016 4:49 PM Medications Administered Medications (Trade) Dose Ordered Sig/[place] Route Start Time Stop Time Status Last Admin Dose Admin Fentanyl Citrate (Fentanyl Inj) 100 mcg NOW ONCE IM 07/11/16 16:15 07/11/16 16:16 DC 07/11/16 16:45 100 MCG ED Course 1611: Previous medical records were reviewed. The patient was evaluated in room A4. A complete history and physical examination was performed. 1615: Fentanyl Inj 100 mcg IM. 1706: On reevaluation, the patient is hemodynamically stable. I discussed the results and findings with the patient. She verbalized agreement of the treatment plan. She was discharged home. Medical Decision The patient is a 30 year old female who presents to the ED with complaints of injuries from fall. The patient complains of pain in the right ribs, has a small abrasion in the right upper anterior chest wall and complains of some neck pain. She denies loss of consciousness. She denies any other injuries. Chest x-ray did not show any acute disease. Cervical spine x-rays did not show any abnormalities. Her vital signs are normal. Her exam was suggestive of some mild discomfort in the right and her chest wall and cervical spine area. The patient was treated with fentanyl IM. She is felt to be stable for discharge. Differential includes close head injury, intracranial bleed, facial trauma, cervical spine trauma, chest and thoracic trauma, abdominal and intra-abdominal trauma, spine neurologic trauma, extremity trauma. Impression Primary Impression: Fall Additional Impression: Contusion of multiple sites Scribe Attestation The scribe's documentation has been prepared under my direction and personally reviewed by me in its entirety. I confirm that the note above accurately reflects all work, treatment, procedures, and medical decision making performed by me. Departure Information Dispostion Home / Self-Care Referrals No Doctor, Assigned (PCP) Forms HOME CARE DOCUMENTATION FORM, IMPORTANT VISIT INFORMATION Patient Instructions My [facility] Additional Instructions Follow-up with your doctor for further care and evaluation in 1-5 days. Return to the emergency department for worsening or new symptoms or any concerns. You have been examined and treated today on an emergency basis only. This is not a substitute for, or an effort to provide, complete comprehensive medical care. It is impossible to recognize and treat all injuries or illnesses in a single emergency department visit. It is therefore important that you follow up closely with your doctor. Call as soon as possible for an appointment. Problem Qualifiers
[2016-07-11] MEDS ORDERED: DIAZ-165 PO (19:13)
[2016-07-11] MEDS ORDERED: MOME200A INH (19:13)
[2016-08-18] MEDS ORDERED: DULO-24 PO (14:29)
[2016-12-17] MEDS ORDERED: NXM/40 PO (06:51)
[2016-12-17] MEDS ORDERED: CETI10TA84 PO (13:34)
[2016-12-17] MEDS ORDERED: LISI-461 PO (13:47)
[2016-12-17] MEDS ORDERED: LACT10CA3 PO (14:30)
[2016-12-17] MEDS ORDERED: FLUT115A INH (14:31)
[2016-12-17] MEDS ORDERED: ONDA4TAB10 SL (15:11)
[2016-12-17] MEDS ORDERED: VLM5CL PO (15:11)
[2016-12-17] MEDS ORDERED: PRVHFAIN INH (15:57)
[2016-12-17] MEDS ORDERED: CMP/10 PO (17:09)
== END 2016-07-11 17:20 | disposition home or self-care (01) ==
LOC: C.EDB 14:46 → C.EDA 17:20
DX: T14.8 Other injury of unspecified body region (principal); R07.81 Pleurodynia; M54.2 Cervicalgia; F41.9 Anxiety disorder, unspecified; G80.9 Cerebral palsy, unspecified; J45.909 Unspecified asthma, uncomplicated; K21.9 Gastro-esophageal reflux disease without esophagitis; I10 Essential (primary) hypertension; Z79.899 Other long term (current) drug therapy; Z88.0 Allergy status to penicillin; Z88.1 Allergy status to other antibiotic agents; Z88.2 Allergy status to sulfonamides; Z88.5 Allergy status to narcotic agent; Z88.8 Allergy status to other drugs, medicaments and biological substances; Z91.040 Latex allergy status; Z86.19 Personal history of other infectious and parasitic diseases; Z83.3 Family history of diabetes mellitus; Z82.49 Family history of ischemic heart disease and other diseases of the circulatory system; W16.212A Fall in (into) filled bathtub causing other injury, initial encounter

== ENCOUNTER 2016-07-17 13:59 | Emergency (ER) | payer OTHER ==
[~2016-07-17] VITALS: Ht 152.4 cm; Wt 107.0 kg
[~2016-07-17 13:59] MED LIST changes: -ALBUAER19 INH; -BUSP15TA70 PO; +DIAZ-165 PO; +MOME200A INH
[2016-07-17 14:14] VITALS: TEMP 36.3; Ht 152.4 cm; Wt 107.0 kg
[2016-07-17] MEDS ORDERED: KETOROLAC TROMETHAMINE 30 MG/ML VIAL IV STA (14:58)
[2016-07-17] MEDS ORDERED: SODIUM CHLORIDE 0.9% 1000ML 1,000 ML IV STA (14:58)
[2016-07-17] MEDS ORDERED: ONDANSETRON INJ 2 MG/ML 2 ML VIAL IV STA (14:58)
--- NOTE | 2016-07-17 15:01 | EMERGENCY ROOM VISIT NOTE ---
History Report prepared by Alma: Mekhi Purdy Under the Supervision of: Dr. Dionisio Mujica D.O. First contact with patient: 14:48 Chief Complaint: BACK PAIN Stated Complaint: NUMB FROM WAIST DOWN, CAN'T MOVE LEGS Nursing Triage Summary: pt c/o not being able to move legs and stabbing back pain started 1.5 hours ago. fallen 6 x in last 2 weeks. pt has hx of cerebral palsy History of Present Illness The patient is a 30 year old female who presents to the Emergency Room with complaints of persistent middle back pain all day. The pain is sharp. The patient also notes that she is having trouble moving her legs, which feel numb. The patient has been having frequent falls secondary to weakness. Her last fall was two days ago. The patient has not started any new medications. The patient is s/p back surgery. The patient is not on blood thinners. Source of History: patient Onset: today Position: back Quality: sharp Timing: other (persistent) Associated Symptoms: + numbness, + weakness Review of Systems See HPI for pertinent positives & negatives. A total of 10 systems reviewed and were otherwise negative. Past Medical & Surgical Medical Problems: (1) Anxiety disorder (2) Asthma (3) Cerebral palsy (4) Depression (5) GERD (gastroesophageal reflux disease) (6) Hypertension (7) Insulin resistance (8) lysis of adhesions (9) MRSA (methicillin resistant Staphylococcus aureus) (10) Paralysis of both lower limbs (11) Suicidal ideations Surgical Problems: (1) H/O dilation and curettage (2) H/O shoulder surgery (3) History of hysterectomy (4) History of laminectomy (5) Hx of cholecystectomy (6) Hx of eye surgery (7) Hx of spinal fusion (8) S/P surgical manipulation of ankle joint Family History Diabetes mellitus FHx: gallbladder disease Hypertension Social History Smoking Status: Never Smoker Alcohol Use: none Drug Use: none Marital Status: single Housing Status: lives alone Occupation Status: employed, disabled Current/Historical Medications Scheduled Baclofen (Lioresal), 10 MG PO TID Buspirone Hcl (Buspirone Hcl), 10 MG PO TID Cetirizine (Zyrtec), 10 MG PO QAM Diazepam (Valium), 5 MG PO BID Duloxetine Hcl (Cymbalta), 60 MG PO QAM Duloxetine Hcl (Cymbalta), 20 MG PO QAM Esomeprazole Magnesium (Nexium), 40 MG PO DAILY Fluticasone-Salmeterol 115/21 Mcg (Advair Hfa 115/21 Mcg), 1 PUFF INH BID Lactobacillus-Inulin (Culturelle), 1 CAP PO QAM Lisinopril (Lisinopril), 10 MG PO DAILY Montelukast Sodium (Singulair), 10 MG PO HS Topiramate (Topamax), 200 MG PO BID Scheduled PRN Albuterol (Ventolin Hfa), 2 PUFFS INH QID PRN for SOB/Wheezing Mometasone Furoate-Formoterol (Dulera 200/5 Mcg), 2 PUFFS INH BID PRN for In place of Advair Olanzapine (Zyprexa), 5 MG PO Q4 PRN for Anxiety Allergies Coded Allergies: Aztreonam (Verified Allergy, Severe, SHORTNESS OF BREATH, 07/17/16) Cephalosporins (Verified Allergy, Severe, SHORTNESS OF BREATH, 07/17/16) Linezolid (Verified Allergy, Severe, SHORTNESS OF BREATH, 07/17/16) Penicillins (Verified Allergy, Severe, SHORTNESS OF BREATH, 07/17/16) Sulfa Antibiotics (Verified Allergy, Severe, SHORTNESS OF BREATH, 07/17/16) TOLERATED TAMSULOSIN; REPORTS SOB WITH BACTRIM Fexofenadine (Verified Allergy, Intermediate, HIVES, 07/17/16) Oxycodone (Verified Allergy, Intermediate, HIVES-ABLE TO TAKE DILAUDID, 07/17/16) Beta Adrenergic Blockers (Verified Allergy, Unknown, unknown, 07/17/16) Latex1 -Allergic Contact Dermititis (Verified Allergy, Unknown, RASH, ) Meperidine (Verified Allergy, Unknown, RESPIRATORY DISTRESS, 07/17/16) Neomycin (Verified Allergy, Unknown, 07/09/16) Propoxyphene (Verified Allergy, Unknown, UNKNOWN, 07/17/16) Quinolones (Verified Allergy, Unknown, QUINOLONES-SOB, CAN TAKE CIPRO W/O PROBLEM, 07/17/16) Pt denies cipro allergy. States she has taken in the past Tetracycline (Verified Allergy, Unknown, 07/17/16) Verapamil (Verified Allergy, Unknown, UNKNOWN, 07/17/16) Physical Exam Vital Signs Date Time Temp Pulse Resp B/P Pulse Ox O2 Delivery O2 Flow Rate FiO2 07/17/16 18:51 70 16 106/74 99 07/17/16 17:15 90 20 125/70 99 Room Air 07/17/16 15:28 82 07/17/16 15:20 90 16 141/75 98 Room Air 07/17/16 14:14 36.3 95 18 143/80 98 Room Air Physical Exam GENERAL: Patient is awake, alert, and in no acute distress. Patient is resting comfortably and showing no signs of anxiety EYES: The conjunctivae are clear. The pupils are round and reactive. EARS, NOSE, MOUTH AND THROAT: The nose is without any evidence of any deformity. Mucous membranes are moist tongue is midline NECK: The neck is nontender and supple. RESPIRATORY: Normal respiratory effort is noted there is no evidence of wheezing rhonchi or rales CARDIOVASCULAR: Regular rate and rhythm noted there no murmurs rubs or gallops normal S1 normal S2 GASTROINTESTINAL: The abdomen is soft. Bowel sounds are present in all quadrants. Abdomen is nontender BACK: Lower thoracic and upper lumbar tenderness to palpation,no stepoff noted , range of motion appeared intact. MUSCULOSKELETAL/EXTREMITIES: There is no evidence of gross deformity full range of motion is noted in the hips and shoulders. Diffuse muscle rigidity noted in both lower extremities. SKIN: There is no obvious evidence of any rash. There are no petechiae, pallor or cyanosis noted. Trace pedal edema bilaterally. NEUROLOGIC: Patient is awake alert and oriented x3, patellar tendon reflex is 3 + bilaterally. Medical Decision & Procedures ER Provider Diagnostic Interpretation: X-ray results as stated below per interpretation by me and the radiologist. LUMBAR SPINE 5 VIEWS HISTORY: Pain fall COMPARISON: 07/07/2016 FINDINGS: No change from the prior study. No evidence for compression deformity. Mild scoliosis. IMPRESSION: Mild scoliosis. No acute process. Stable postoperative changes of the mid to lower lumbar region. No change from the prior study. Electronically signed by: Lawrence Roberts M.D. 07/17/2016 4:02 PM Dictated Date/Time: 07/17/2016 4:01 PM THORACIC SPINE 3 VIEWS HISTORY: Pain frequent falls COMPARISON: 07/07/2016 FINDINGS: There is no fracture. No subluxation. Disc spaces are preserved. IMPRESSION: No fracture or subluxation within the thoracic spine. No change from the prior study Electronically signed by: Lawrence Roberts M.D. 07/17/2016 4:01 PM Dictated Date/Time: 07/17/2016 3:59 PM Laboratory Results 07/17/16 15:15 Red Blood Count 4.59, Mean Corpuscular Volume 88.5, Mean Corpuscular Hemoglobin 30.5, Mean Corpuscular Hemoglobin Concent 34.5, Mean Platelet Volume 10.0, Neutrophils (%) (Auto) 60.9, Lymphocytes (%) (Auto) 31.3, Monocytes (%) (Auto) 5.0, Eosinophils (%) (Auto) 2.2, Basophils (%) (Auto) 0.3, Neutrophils # (Auto) 3.88, Lymphocytes # (Auto) 2.00, Monocytes # (Auto) 0.32, Eosinophils # (Auto) 0.14, Basophils # (Auto) 0.02 07/17/16 15:15 Test 07/17/16 15:15 White Blood Count 6.38 K/uL (4.8-10.8) Red Blood Count 4.59 M/uL (4.2-5.4) Hemoglobin 14.0 g/dL (12.0-16.0) Hematocrit 40.6 % (37-47) Mean Corpuscular Volume 88.5 fL (80-100) Mean Corpuscular Hemoglobin 30.5 pg (25-34) Mean Corpuscular Hemoglobin Concent 34.5 g/dl (32-36) Platelet Count 268 K/uL (130-400) Mean Platelet Volume 10.0 fL (7.4-10.4) Neutrophils (%) (Auto) 60.9 % Lymphocytes (%) (Auto) 31.3 % Monocytes (%) (Auto) 5.0 % Eosinophils (%) (Auto) 2.2 % Basophils (%) (Auto) 0.3 % Neutrophils # (Auto) 3.88 K/uL (1.4-6.5) Lymphocytes # (Auto) 2.00 K/uL (1.2-3.4) Monocytes # (Auto) 0.32 K/uL (0.11-0.59) Eosinophils # (Auto) 0.14 K/uL (0-0.5) Basophils # (Auto) 0.02 K/uL (0-0.2) RDW Standard Deviation 49.3 fL (36.4-46.3) RDW Coefficient of Variation 15.1 % (11.5-14.5) Immature Granulocyte % (Auto) 0.3 % Immature Granulocyte # (Auto) 0.02 K/uL (0.00-0.02) Anion Gap 10.0 mmol/L (3-11) Est Creatinine Clear Calc Drug Dose 116.3 ml/min Estimated GFR () 117.2 Estimated GFR (Non- 101.2 BUN/Creatinine Ratio 25.2 (10-20) Calcium Level 8.6 mg/dl (8.5-10.1) Total Bilirubin 0.2 mg/dl (0.2-1) Direct Bilirubin < 0.1 mg/dl (0-0.2) Aspartate Amino Transf (AST/SGOT) 17 U/L (15-37) Alanine Aminotransferase (ALT/SGPT) 26 U/L (12-78) Alkaline Phosphatase 128 U/L (45-117) Total Creatine Kinase 38 U/L (26-192) Total Protein 7.8 gm/dl (6.4-8.2) Albumin 3.6 gm/dl (3.4-5.0) Lipase 263 U/L (73-393) Human Chorionic Gonadotropin, Qual NEG (NEG) Laboratory results per my review. Medications Administered Medications (Trade) Dose Ordered Sig/[place] Route Start Time Stop Time Status Last Admin Dose Admin Ketorolac Tromethamine 30 mg 30 mg NOW STAT IV 07/17/16 14:58 07/17/16 15:00 DC 07/17/16 15:18 30 MG Sodium Chloride (Nss 1000ml) 1,000 ml @ 999 mls/hr Q1H1M STAT IV 07/17/16 14:58 07/17/16 15:58 DC 07/17/16 15:18 999 MLS/HR Ondansetron HCl (Zofran Inj) 4 mg NOW STAT IV 07/17/16 14:58 07/17/16 15:00 DC 07/17/16 15:17 4 MG Morphine Sulfate (MoRPHine SULFATE INJ) 4 mg Q15M PRN IV 07/17/16 15:00 07/17/16 19:20 DC 07/17/16 17:15 4 MG Diphenhydramine HCl (Benadryl Inj) 25 mg NOW STAT IV 07/17/16 16:07 07/17/16 16:08 DC 07/17/16 16:46 25 MG Oxycodone HCl (Roxicodone Immediate Rel 5MG Home Pack) 1 homepack UD ONCE PO 07/17/16 18:30 07/17/16 18:31 DC 07/17/16 18:56 1 HOMEPACK ED Course 1455: The patient was evaluated in room C7. A complete history and physical examination were performed. 1458: Zofran 4 mg IV, NSS 1000 ml @ 999 mls/hr, Toradol 30 mg IV. 1500: Morphine Sulfate 4 mg IV. 1607: Benadryl 25 mg IV. 1700: Updated the patient. 1830: Oxycodone IR 5 mg PO home pack. 1850: Reassessed the patient. Discussed the findings with her. She verbalized understanding and agreement of the treatment plan. The patient is ready for discharge. Medical Decision Etiologies such as musculoskeletal, disc herniation, fracture, aortic disease, metastatic disease, cord compression, discitis, infection, renal colic, gastrointestinal, acute exacerbation of chronic back pain, sciatica, cauda equina, as well as others were entertained. Nursing notes reviewed. Patient's previous electronic medical records reviewed. The patient is a 30-year-old female who presented to the emergency department for an evaluation back pain. The patient has mid back pain and upper lumbar pain. She states that she's had frequent falls recently. The patient has been seen in our facility recently for similar complaints. She's had multiple CAT scans as well as MRIs of her back. I did review these recent radiographic studies. The patient was treated with IV fluids IV pain medicine IV antiemetics. On subsequent reevaluation she was feeling much better. 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 They reviewed the patient's medications as well as her help that she has at home. At this time she does not meet any specific criteria for inpatient management. She was offered inpatient rehabilitation but this time does not wish to have that because she has not done well with that in the past. The patient was encouraged to rest and avoid any strenuous activity. She was encouraged to continue all medications as prescribed and follow-up with her primary care physician for further evaluation but return to emergency department immediately if symptoms change worsen or the need arises. Impression Primary Impression: Chronic back pain Additional Impressions: Falls Lumbar contusion Contusion of thoracic wall Scribe Attestation The scribe's documentation has been prepared under my direction and personally reviewed by me in its entirety. I confirm that the note above accurately reflects all work, treatment, procedures, and medical decision making performed by me. Departure Information Dispostion Home / Self-Care Referrals Naz Gordon PA-C (PCP) Forms HOME CARE DOCUMENTATION FORM, IMPORTANT VISIT INFORMATION Patient Instructions ED Back Pain Acute Chronic, My [facility] Additional Instructions Continue all medications as prescribed. Follow-up with your family this week for reevaluation. Avoid any strenuous activity. Problem Qualifiers
[2016-07-17] MEDS: MoRPHine SULFATE 4 MG/ML 1 ML CARP\\VIAL IV PRN ×2 (15:18→17:15)
[2016-07-17 15:31] LABS: HEMATOCRIT 40.6 % (37-47); MEAN CELL VOLUME 88.5 fL (80-100); MEAN CORPUSCULAR HEMOGLOBIN 30.5 pg (25-34); MEAN CORPUSCULAR HGB CONC 34.5 g/dl (32-36); PLATELET COUNT 268 K/uL (130-400); RED BLOOD COUNT 4.59 M/uL (4.2-5.4); WHITE BLOOD COUNT 6.38 K/uL (4.8-10.8)
[2016-07-17 15:47] LABS: ALT/SGPT 26 U/L (12-78); BLOOD UREA NITROGEN 20 mg/dl (7-18); BUN/CREATININE RATIO 25.2 (10-20); CALCIUM 8.6 mg/dl (8.5-10.1); CARBON DIOXIDE 21 mmol/L (21-32); CHLORIDE 113 mmol/L (98-107); CREATININE 0.79 mg/dl (0.60-1.20); GLUCOSE 72 mg/dl (70-99); POTASSIUM 3.9 mmol/L (3.5-5.1); SODIUM 144 mmol/L (136-145)
[2016-07-17 15:50] LABS: ALKALINE PHOSPHATASE 128 U/L (45-117); AST/SGOT 17 U/L (15-37)
[2016-07-17 15:55] LABS: PREG INTERNAL NEGATIVE QC NEG CLEAR BACKGROUND; PREG INTERNAL POSITIVE QC POS CONTROL LINE
[2016-07-17 15:58] LABS: BASO % 0.3 %; BASO ABS # 0.02 K/uL (0-0.2); COMPLETE YES; EOS % 2.2 %; IG% 0.3 %; LYMPH % 31.3 %; NEUT % 60.9 %
--- NOTE | 2016-07-17 16:02 | DIAGNOSTIC IMAGING REPORT ---
THORACIC SPINE 3 VIEWS HISTORY: Pain frequent falls COMPARISON: 07/07/2016 FINDINGS: There is no fracture. No subluxation. Disc spaces are preserved. IMPRESSION: No fracture or subluxation within the thoracic spine. No change from the prior study Electronically signed by: Lawrence Roberts M.D. 07/17/2016 4:01 PM Dictated Date/Time: 07/17/2016 3:59 PM
--- NOTE | 2016-07-17 16:03 | DIAGNOSTIC IMAGING REPORT ---
LUMBAR SPINE 5 VIEWS HISTORY: Pain fall COMPARISON: 07/07/2016 FINDINGS: No change from the prior study. No evidence for compression deformity. Mild scoliosis. IMPRESSION: Mild scoliosis. No acute process. Stable postoperative changes of the mid to lower lumbar region. No change from the prior study. Electronically signed by: Lawrence Roberts M.D. 07/17/2016 4:02 PM Dictated Date/Time: 07/17/2016 4:01 PM
[2016-07-17] MEDS ORDERED: DiphenhydrAMINE HCL 50 MG/ML VIAL IV STA (16:07)
[2016-07-17] MEDS ORDERED: OLAN-111 PO (17:43)
[2016-07-17] MEDS ORDERED: OXYCODONE IR HOME PACK PO ONE (18:30)
[2016-07-17 18:51] VITALS: BP 106/74; PULSE 70; O2SAT 99
[2016-08-18] MEDS ORDERED: DULO-24 PO (14:29)
[2016-12-17] MEDS ORDERED: NXM/40 PO (06:51)
[2016-12-17] MEDS ORDERED: CETI10TA84 PO (13:34)
[2016-12-17] MEDS ORDERED: LISI-461 PO (13:47)
[2016-12-17] MEDS ORDERED: LACT10CA3 PO (14:30)
[2016-12-17] MEDS ORDERED: FLUT115A INH (14:31)
[2016-12-17] MEDS ORDERED: ONDA4TAB10 SL (15:11)
[2016-12-17] MEDS ORDERED: VLM5CL PO (15:11)
[2016-12-17] MEDS ORDERED: PRVHFAIN INH (15:57)
[2016-12-17] MEDS ORDERED: CMP/10 PO (17:09)
== END 2016-07-17 19:04 | disposition home or self-care (01) ==
LOC: C.EDB 14:00 → C.EDC 19:04
DX: M54.9 Dorsalgia, unspecified (principal); G89.29 Other chronic pain; S30.0XXA Contusion of lower back and pelvis, initial encounter; S20.219A Contusion of unspecified front wall of thorax, initial encounter; W19.XXXA Unspecified fall, initial encounter; F41.9 Anxiety disorder, unspecified; G80.9 Cerebral palsy, unspecified; K21.9 Gastro-esophageal reflux disease without esophagitis; I10 Essential (primary) hypertension; Z90.49 Acquired absence of other specified parts of digestive tract

== ENCOUNTER 2016-07-19 11:40 | Emergency (ER) | payer OTHER ==
[~2016-07-19] VITALS: Ht 152.4 cm; Wt 103.0 kg
[~2016-07-19 11:40] MED LIST changes: +OLAN-111 PO
[2016-07-19 11:46] VITALS: TEMP 36.9; Ht 152.4 cm; Wt 103.0 kg
[2016-07-19] MEDS ORDERED: ONDANSETRON INJ 2 MG/ML 2 ML VIAL IV STA ×2 (12:19→13:46)
[2016-07-19] MEDS ORDERED: SODIUM CHLORIDE 0.9% 1000ML 1,000 ML IV STA ×2 (12:19→14:06)
--- NOTE | 2016-07-19 12:23 | EMERGENCY ROOM VISIT NOTE ---
History Report prepared by Alma: Martine Vides Under the Supervision of: Deejay ReddingO. First contact with patient: 12:04 Chief Complaint: VOMITING Stated Complaint: VOMITING, DIRREHEA, STOMACH JPAIN Nursing Triage Summary: Triage note: Pt reports nausea, vomitting, diarrhea, right abd pain since last night. History of Present Illness The patient is a 30 year old female who presents to the Emergency Room with complaints of persistent diarrhea that began last evening. She currently rates her discomfort as a 9/10 in severity. The patient additionally notes that she developed nausea and vomiting last night. She states that she took Compazine last evening for her nausea and additionally took a dose this morning. The patient states that this morning she developed right sided abdominal pain. She denies seeing her primary care physician for her symptoms. The patient states that she is currently on Azithromycin for bronchitis. She states that it was prescribed by her primary care physician and has been on it for the past five days. The patient additionally notes intermittent low-grade fevers and chills. She notes a history of a hysterectomy, cholecystectomy, and appendectomy. Source of History: patient Onset: last evening Position: other (global) Symptom Intensity: 9/10 Quality: other (diarrhea) Timing: other (persistent) Associated Symptoms: + abdominal pain, + chills, + fevers, + nausea, + vomiting Review of Systems See HPI for pertinent positives & negatives. A total of 10 systems reviewed and were otherwise negative. Past Medical & Surgical Medical Problems: (1) Anxiety disorder (2) Asthma (3) Cerebral palsy (4) Depression (5) GERD (gastroesophageal reflux disease) (6) Hypertension (7) Insulin resistance (8) lysis of adhesions (9) MRSA (methicillin resistant Staphylococcus aureus) (10) Paralysis of both lower limbs (11) Suicidal ideations Surgical Problems: (1) H/O dilation and curettage (2) H/O shoulder surgery (3) History of hysterectomy (4) History of laminectomy (5) Hx of cholecystectomy (6) Hx of eye surgery (7) Hx of spinal fusion (8) S/P surgical manipulation of ankle joint Family History Diabetes mellitus FHx: gallbladder disease Hypertension Social History Smoking Status: Never Smoker Alcohol Use: none Drug Use: none Marital Status: single Housing Status: lives alone Occupation Status: employed, disabled Current/Historical Medications Scheduled Baclofen (Lioresal), 10 MG PO TID Buspirone Hcl (Buspirone Hcl), 10 MG PO TID Cetirizine (Zyrtec), 10 MG PO QAM Diazepam (Valium), 5 MG PO BID Duloxetine Hcl (Cymbalta), 60 MG PO QAM Duloxetine Hcl (Cymbalta), 20 MG PO QAM Esomeprazole Magnesium (Nexium), 40 MG PO DAILY Fluticasone-Salmeterol 115/21 Mcg (Advair Hfa 115/21 Mcg), 1 PUFF INH BID Lactobacillus-Inulin (Culturelle), 1 CAP PO QAM Lisinopril (Lisinopril), 10 MG PO DAILY Montelukast Sodium (Singulair), 10 MG PO HS Ondasetron Odt (Zofran Odt), 4 MG SL Q6H Topiramate (Topamax), 200 MG PO BID Scheduled PRN Albuterol (Ventolin Hfa), 2 PUFFS INH QID PRN for SOB/Wheezing Olanzapine (Zyprexa), 5 MG PO Q4 PRN for Anxiety Allergies Coded Allergies: Aztreonam (Verified Allergy, Severe, SHORTNESS OF BREATH, 07/17/16) Cephalosporins (Verified Allergy, Severe, SHORTNESS OF BREATH, 07/17/16) Linezolid (Verified Allergy, Severe, SHORTNESS OF BREATH, 07/17/16) Penicillins (Verified Allergy, Severe, SHORTNESS OF BREATH, 07/17/16) Sulfa Antibiotics (Verified Allergy, Severe, SHORTNESS OF BREATH, 07/17/16) TOLERATED TAMSULOSIN; REPORTS SOB WITH BACTRIM Fexofenadine (Verified Allergy, Intermediate, HIVES, 07/17/16) Oxycodone (Verified Allergy, Intermediate, HIVES-ABLE TO TAKE DILAUDID, 07/17/16) Beta Adrenergic Blockers (Verified Allergy, Unknown, unknown, 07/17/16) Latex1 -Allergic Contact Dermititis (Verified Allergy, Unknown, RASH, ) Meperidine (Verified Allergy, Unknown, RESPIRATORY DISTRESS, 07/17/16) Neomycin (Verified Allergy, Unknown, 07/09/16) Propoxyphene (Verified Allergy, Unknown, UNKNOWN, 07/17/16) Quinolones (Verified Allergy, Unknown, QUINOLONES-SOB, CAN TAKE CIPRO W/O PROBLEM, 07/17/16) Pt denies cipro allergy. States she has taken in the past Tetracycline (Verified Allergy, Unknown, 07/17/16) Verapamil (Verified Allergy, Unknown, UNKNOWN, 07/17/16) Physical Exam Vital Signs Date Time Temp Pulse Resp B/P Pulse Ox O2 Delivery O2 Flow Rate FiO2 07/19/16 15:00 97 16 152/88 96 07/19/16 12:47 85 07/19/16 11:46 36.9 121 18 151/84 98 Room Air Physical Exam GENERAL: Patient is awake, alert, and in no acute distress. Patient is resting comfortably and showing no signs of anxiety EYES: The conjunctivae are clear. The pupils are round and reactive. EARS, NOSE, MOUTH AND THROAT: The nose is without any evidence of any deformity. Mucous membranes are moist tongue is midline NECK: The neck is nontender and supple. RESPIRATORY: Normal respiratory effort is noted there is no evidence of wheezing rhonchi or rales CARDIOVASCULAR: Tachycardic rate, but regular rhythm. No definite murmur noted to auscultation. GASTROINTESTINAL: Mildly distended, but soft. Diffuse tenderness to palpation with no definite guarding or rigidity. MUSCULOSKELETAL/EXTREMITIES: There is no evidence of gross deformity full range of motion is noted in the hips and shoulders SKIN: Pedal edema noted bilaterally. There is no obvious evidence of any rash. There are no petechiae, pallor or cyanosis noted. NEUROLOGIC: Patient is awake alert and oriented x3. Medical Decision & Procedures ER Provider Diagnostic Interpretation: CT results as stated below per my review and radiologist interpretation. CT SCAN OF THE ABDOMEN AND PELVIS WITHOUT IV CONTRAST CLINICAL HISTORY: Right-sided abdominal pain. COMPARISON STUDY: Abdominal CT dated 06/03/2015. TECHNIQUE: CT scan of the abdomen and pelvis is performed from the lung bases to the proximal femora. Images are reviewed in the axial, sagittal, and coronal planes. IV contrast was not administered for this examination as per the referring clinician. Note that the examination was performed in suboptimal fashion without oral and IV contrast. The examination is also degraded by large body habitus, and streak artifact from the body wall abutting the CT gantry. Automated dose control exposure was utilized. CT DOSE: 1567.32 mGy.cm FINDINGS: Lung bases: The heart is normal in size and without pericardial effusion. Linear scarring versus atelectasis is present in the lower lobe. The lung bases are otherwise clear. There is a tiny hiatal hernia. Liver: The unenhanced liver is enlarged, measuring 19.2 cm in length. The liver demonstrates diffusely diminished attenuation consistent with hepatic steatosis. There is no intrahepatic biliary ductal dilatation. Gallbladder: Surgically absent noting clips in the gallbladder fossa. Spleen: Normal in size and attenuation. Pancreas: Atrophic for age. Adrenal glands: Unremarkable. Kidneys: The unenhanced kidneys are normal in size and without hydronephrosis. There are no renal calculi identified. There is no evidence of contour deforming renal mass lesion. Abdominal vasculature: The abdominal aorta is normal in course and caliber. Bowel: The small bowel and colon are normal in course and caliber. Liquid stool is noted throughout the colon. There is no associated colonic wall thickening or pericolonic inflammation. The appendix is well-visualized and normal. Peritoneum: There is no intraperitoneal free air or abdominal ascites. Lymphadenopathy: None. Pelvic viscera: The bladder is normal as visualized. The uterus is surgically absent. No adnexal lesion is seen. Skeletal structures: There are postoperative changes from lumbar spinal fusion. A bone graft donor site is noted in the right ilium. There is minimal spondylotic change and scoliosis. No lytic or blastic lesions are seen. Postoperative change is identified in the posterior paraspinous soft tissues. IMPRESSION: 1. Suboptimal examination without oral and IV contrast. 2. Liquid stool is noted throughout the colon. Correlate clinically for evidence of a diarrheal illness. There is no colonic wall thickening or pericolonic inflammation. 3. Hepatomegaly and hepatic steatosis. 4. Additional findings as above. Electronically signed by: Derrell Uriarte M.D. 07/19/2016 1:39 PM Dictated Date/Time: 07/19/2016 1:34 PM Laboratory Results 07/19/16 12:22 Red Blood Count 4.44, Mean Corpuscular Volume 87.8, Mean Corpuscular Hemoglobin 30.2, Mean Corpuscular Hemoglobin Concent 34.4, Mean Platelet Volume 9.9, Neutrophils (%) (Auto) 59.0, Lymphocytes (%) (Auto) 30.7, Monocytes (%) (Auto) 6.5, Eosinophils (%) (Auto) 3.1, Basophils (%) (Auto) 0.2, Neutrophils # (Auto) 3.44, Lymphocytes # (Auto) 1.79, Monocytes # (Auto) 0.38, Eosinophils # (Auto) 0.18, Basophils # (Auto) 0.01 07/19/16 12:22 Test 07/19/16 12:22 White Blood Count 5.83 K/uL (4.8-10.8) Red Blood Count 4.44 M/uL (4.2-5.4) Hemoglobin 13.4 g/dL (12.0-16.0) Hematocrit 39.0 % (37-47) Mean Corpuscular Volume 87.8 fL (80-100) Mean Corpuscular Hemoglobin 30.2 pg (25-34) Mean Corpuscular Hemoglobin Concent 34.4 g/dl (32-36) Platelet Count 283 K/uL (130-400) Mean Platelet Volume 9.9 fL (7.4-10.4) Neutrophils (%) (Auto) 59.0 % Lymphocytes (%) (Auto) 30.7 % Monocytes (%) (Auto) 6.5 % Eosinophils (%) (Auto) 3.1 % Basophils (%) (Auto) 0.2 % Neutrophils # (Auto) 3.44 K/uL (1.4-6.5) Lymphocytes # (Auto) 1.79 K/uL (1.2-3.4) Monocytes # (Auto) 0.38 K/uL (0.11-0.59) Eosinophils # (Auto) 0.18 K/uL (0-0.5) Basophils # (Auto) 0.01 K/uL (0-0.2) RDW Standard Deviation 49.0 fL (36.4-46.3) RDW Coefficient of Variation 15.2 % (11.5-14.5) Immature Granulocyte % (Auto) 0.5 % Immature Granulocyte # (Auto) 0.03 K/uL (0.00-0.02) Anion Gap 13.0 mmol/L (3-11) Est Creatinine Clear Calc Drug Dose 110.8 ml/min Estimated GFR () 113.8 Estimated GFR (Non- 98.1 BUN/Creatinine Ratio 23.6 (10-20) Calcium Level 8.7 mg/dl (8.5-10.1) Total Bilirubin 0.3 mg/dl (0.2-1) Direct Bilirubin < 0.1 mg/dl (0-0.2) Aspartate Amino Transf (AST/SGOT) 17 U/L (15-37) Alanine Aminotransferase (ALT/SGPT) 24 U/L (12-78) Alkaline Phosphatase 127 U/L (45-117) Total Protein 7.5 gm/dl (6.4-8.2) Albumin 3.5 gm/dl (3.4-5.0) Lipase 133 U/L (73-393) Date/Time Source Procedure Growth Status 07/19/16 12:30 Stool C.difficile Toxin B Gene (PCR) - Final No C. difficile toxin B gene detected Complete Laboratory results per my review. Medications Administered Medications (Trade) Dose Ordered Sig/[place] Route Start Time Stop Time Status Last Admin Dose Admin Sodium Chloride (Nss 1000ml) 1,000 ml @ 999 mls/hr Q1H1M STAT IV 07/19/16 12:19 07/19/16 13:19 DC 07/19/16 12:30 999 MLS/HR Ondansetron HCl (Zofran Inj) 4 mg NOW STAT IV 07/19/16 12:19 07/19/16 12:21 DC 07/19/16 12:30 4 MG Diphenhydramine HCl (Benadryl Inj) 25 mg NOW STAT IV 07/19/16 13:46 07/19/16 13:47 DC 07/19/16 13:55 25 MG Ondansetron HCl 4 mg 4 mg NOW STAT IV 07/19/16 13:46 07/19/16 13:47 DC 07/19/16 13:55 4 MG Sodium Chloride (Nss 1000ml) 1,000 ml @ 999 mls/hr Q1H1M STAT IV 07/19/16 14:06 07/19/16 15:06 DC 07/19/16 14:06 999 MLS/HR Acetaminophen (Tylenol Tab) 1,000 mg NOW STAT PO 07/19/16 14:27 07/19/16 14:28 DC 07/19/16 14:42 1,000 MG ED Course 1217: The patient was evaluated in room C8. A complete history and physical examination were performed. 1219: Ordered Zofran Inj 4 mg IV, Sodium Chloride 1000 ml @ 999 mls/hr IV. 1346: Ordered Benadryl Inj 25 mg IV, Zofran Inj 4 mg IV. 1406: Ordered Sodium Chloride 1000 ml @ 999 mls/hr IV. 1427: Ordered Tylenol Tab 1000 mg PO. 1545: I reevaluated the patient and she is resting comfortably. I discussed the exam findings with her and I discussed the treatment plan. She verbalized complete understanding and agreement. She is ready to go home. Medical Decision Differential diagnosis: Etiologies such as gastroenteritis, food borne illness, infections, appendicitis , diverticulitis, inflammatory bowel disease, obstruction, GI bleed, biliary pathology, as well as others were entertained. Nursing notes reviewed. The patient's previous electronic medical records reviewed. The patient is a 30-year-old female who presented to the emergency department for an evaluation of nausea vomiting and diarrhea. She was found have dehydration on laboratory studies. Her abdominal exam was not consistent with an acute surgical abdomen but a CT was also obtained. She did not have signs of appendicitis. The patient was treated with IV fluids and IV antiemetics. On subsequent reevaluation she was somewhat improved. She was encouraged to rest and avoid any strenuous activity. She was encouraged to drink plenty clear liquids and continue all medications as prescribed. She was also encouraged to follow-up with her family doctor soon as possible but return to the emergency department immediately if symptoms change worsen or if the need arises. Impression Primary Impression: Diarrhea Additional Impressions: Dehydration Abdominal pain Scribe Attestation The scribe's documentation has been prepared under my direction and personally reviewed by me in its entirety. I confirm that the note above accurately reflects all work, treatment, procedures, and medical decision making performed by me. Departure Information Dispostion Home / Self-Care Prescriptions Ondasetron Odt (ZOFRAN ODT) 4 Mg Tab 4 MG SL Q6H for Nausea, #20 TAB Prov: Dionisio Mujica, 07/19/16 Referrals Naz Gordon PA-C (PCP) Forms HOME CARE DOCUMENTATION FORM, IMPORTANT VISIT INFORMATION Patient Instructions Dehydration, Diarrhea, My [facility] Additional Instructions Continue all medications as prescribed. Drink plenty of clear liquids. Call your family to schedule a follow-up appointment. Problem Qualifiers Primary Impression: Diarrhea Diarrhea type: unspecified type Qualified Codes: R19.7 - Diarrhea, unspecified Additional Impressions: Abdominal pain Abdominal location: right lower quadrant Qualified Codes: R10.31 - Right lower quadrant pain
[2016-07-19 12:41] LABS: BASO % 0.2 %; BASO ABS # 0.01 K/uL (0-0.2); COMPLETE YES; EOS % 3.1 %; IG% 0.5 %; LYMPH % 30.7 %; LYMPH ABS # 1.79 K/uL (1.2-3.4); MEAN CELL VOLUME 87.8 fL (80-100); MEAN CORPUSCULAR HEMOGLOBIN 30.2 pg (25-34); MEAN CORPUSCULAR HGB CONC 34.4 g/dl (32-36); MEAN PLATELET VOLUME 9.9 fL (7.4-10.4); MONO % 6.5 %; PLATELET COUNT 283 K/uL (130-400); RED BLOOD COUNT 4.44 M/uL (4.2-5.4); WHITE BLOOD COUNT 5.83 K/uL (4.8-10.8)
[2016-07-19 13:03] LABS: ALKALINE PHOSPHATASE 127 U/L (45-117); ALT/SGPT 24 U/L (12-78); AST/SGOT 17 U/L (15-37); BLOOD UREA NITROGEN 19 mg/dl (7-18); BUN/CREATININE RATIO 23.6 (10-20); CALCIUM 8.7 mg/dl (8.5-10.1); CARBON DIOXIDE 18 mmol/L (21-32); CHLORIDE 113 mmol/L (98-107); CREATININE 0.81 mg/dl (0.60-1.20); GLUCOSE 81 mg/dl (70-99); POTASSIUM 3.3 mmol/L (3.5-5.1); SODIUM 144 mmol/L (136-145)
--- NOTE | 2016-07-19 13:40 | DIAGNOSTIC IMAGING REPORT ---
CT SCAN OF THE ABDOMEN AND PELVIS WITHOUT IV CONTRAST CLINICAL HISTORY: Right-sided abdominal pain. COMPARISON STUDY: Abdominal CT dated 06/03/2015. TECHNIQUE: CT scan of the abdomen and pelvis is performed from the lung bases to the proximal femora. Images are reviewed in the axial, sagittal, and coronal planes. IV contrast was not administered for this examination as per the referring clinician. Note that the examination was performed in suboptimal fashion without oral and IV contrast. The examination is also degraded by large body habitus, and streak artifact from the body wall abutting the CT gantry. Automated dose control exposure was utilized. CT DOSE: 1567.32 mGy.cm FINDINGS: Lung bases: The heart is normal in size and without pericardial effusion. Linear scarring versus atelectasis is present in the lower lobe. The lung bases are otherwise clear. There is a tiny hiatal hernia. Liver: The unenhanced liver is enlarged, measuring 19.2 cm in length. The liver demonstrates diffusely diminished attenuation consistent with hepatic steatosis. There is no intrahepatic biliary ductal dilatation. Gallbladder: Surgically absent noting clips in the gallbladder fossa. Spleen: Normal in size and attenuation. Pancreas: Atrophic for age. Adrenal glands: Unremarkable. Kidneys: The unenhanced kidneys are normal in size and without hydronephrosis. There are no renal calculi identified. There is no evidence of contour deforming renal mass lesion. Abdominal vasculature: The abdominal aorta is normal in course and caliber. Bowel: The small bowel and colon are normal in course and caliber. Liquid stool is noted throughout the colon. There is no associated colonic wall thickening or pericolonic inflammation. The appendix is well-visualized and normal. Peritoneum: There is no intraperitoneal free air or abdominal ascites. Lymphadenopathy: None. Pelvic viscera: The bladder is normal as visualized. The uterus is surgically absent. No adnexal lesion is seen. Skeletal structures: There are postoperative changes from lumbar spinal fusion. A bone graft donor site is noted in the right ilium. There is minimal spondylotic change and scoliosis. No lytic or blastic lesions are seen. Postoperative change is identified in the posterior paraspinous soft tissues. IMPRESSION: 1. Suboptimal examination without oral and IV contrast. 2. Liquid stool is noted throughout the colon. Correlate clinically for evidence of a diarrheal illness. There is no colonic wall thickening or pericolonic inflammation. 3. Hepatomegaly and hepatic steatosis. 4. Additional findings as above. Electronically signed by: Derrell Uriarte M.D. 07/19/2016 1:39 PM Dictated Date/Time: 07/19/2016 1:34 PM
[2016-07-19] MEDS ORDERED: DiphenhydrAMINE HCL 50 MG/ML VIAL ONE (13:46)
[2016-07-19] MEDS ORDERED: DiphenhydrAMINE HCL 50 MG/ML VIAL IV STA (13:46)
[2016-07-19] MEDS ORDERED: ACETAMINOPHEN 500 MG TAB PO STA (14:27)
[2016-07-19 15:00] VITALS: BP 152/88; PULSE 97; O2SAT 96
[2016-07-19] MEDS ORDERED: ONDA4TAB10 SL (15:08)
[2016-08-18] MEDS ORDERED: DULO-24 PO (14:29)
[2016-12-17] MEDS ORDERED: NXM/40 PO (06:51)
[2016-12-17] MEDS ORDERED: CETI10TA84 PO (13:34)
[2016-12-17] MEDS ORDERED: LISI-461 PO (13:47)
[2016-12-17] MEDS ORDERED: LACT10CA3 PO (14:30)
[2016-12-17] MEDS ORDERED: FLUT115A INH (14:31)
[2016-12-17] MEDS ORDERED: ONDA4TAB10 SL (15:11)
[2016-12-17] MEDS ORDERED: VLM5CL PO (15:11)
[2016-12-17] MEDS ORDERED: PRVHFAIN INH (15:57)
[2016-12-17] MEDS ORDERED: CMP/10 PO (17:09)
== END 2016-07-19 22:19 | disposition home or self-care (01) ==
LOC: C.EDB 11:41 → C.EDC 22:19
DX: R19.7 Diarrhea, unspecified (principal); E86.0 Dehydration; R10.9 Unspecified abdominal pain; F41.9 Anxiety disorder, unspecified; J45.909 Unspecified asthma, uncomplicated; G80.9 Cerebral palsy, unspecified; E88.89 Other specified metabolic disorders; K21.9 Gastro-esophageal reflux disease without esophagitis; I10 Essential (primary) hypertension; Z90.710 Acquired absence of both cervix and uterus

== ENCOUNTER 2016-08-08 10:11 | Emergency (ER) | payer OTHER ==
[~2016-08-08] VITALS: Ht 152.4 cm; Wt 112.0 kg
[~2016-08-08 10:11] MED LIST changes: -MOME200A INH; +ONDA4TAB10 SL
[2016-08-08 10:16] VITALS: TEMP 36.7; Ht 152.4 cm; Wt 112.0 kg
[2016-08-08] MEDS ORDERED: SODIUM CHLORIDE 0.9% 1000ML 1,000 ML IV STA (10:48)
[2016-08-08] MEDS ORDERED: SODIUM CHLORIDE 0.9% 500ML 500 ML IV STA (10:48)
[2016-08-08] MEDS ORDERED: MoRPHine SULFATE 10 MG/ML CARP/VIAL IV STA (10:48)
--- NOTE | 2016-08-08 10:59 | EMERGENCY ROOM VISIT NOTE ---
History Report prepared by Alma: Martine Vides Under the Supervision of: Dr. Derrell Pardo M.D. First contact with patient: 10:43 Chief Complaint: FALL Stated Complaint: BACK PAIN History of Present Illness The patient is a 31 year old female who presents to the Emergency Room with complaints of a sudden fall that occurred yesterday morning. She currently rates her discomfort as a 9/10 in severity. Per records the patient arrives via ALS. The patient states that she has chronic low back issues, but states that since the fall, she has experienced worsened mid-upper back pain. She states that there is increased pain with breathing. The patient notes a previous lower back operation on the L5 and S1, but denies any hardware. She states that she has had previous MRIs. The patient states that she has taken ibuprofen without relief. She notes right leg numbness and difficulty urinating since the fall. The patient states that she has an appointment tomorrow to be set up with a nerve stimulator. The patient states that she has a history of cerebral palsy, noting that is the reason behind her falls. She states that she has a walker at home to assist with ambulation. The patient notes a decrease in appetite and fluid intake. Source of History: patient Onset: yesterday morning Position: other (global) Symptom Intensity: 9/10 Quality: other (fall) Timing: other (sudden) Modifying Factors (Worsening): breathing Associated Symptoms: + back pain (mid-upper), + numbness (right leg), + urinary symptoms (difficulty urinating) Review of Systems See HPI for pertinent positives & negatives. A total of 10 systems reviewed and were otherwise negative. Past Medical & Surgical Medical Problems: (1) Anxiety disorder (2) Asthma (3) Cerebral palsy (4) Depression (5) GERD (gastroesophageal reflux disease) (6) Hypertension (7) Insulin resistance (8) lysis of adhesions (9) MRSA (methicillin resistant Staphylococcus aureus) (10) Paralysis of both lower limbs (11) Suicidal ideations Surgical Problems: (1) H/O dilation and curettage (2) H/O shoulder surgery (3) History of hysterectomy (4) History of laminectomy (5) Hx of cholecystectomy (6) Hx of eye surgery (7) Hx of spinal fusion (8) S/P surgical manipulation of ankle joint Family History Diabetes mellitus FHx: gallbladder disease Hypertension Social History Smoking Status: Never Smoker Alcohol Use: none Drug Use: none Marital Status: single Housing Status: lives alone Occupation Status: employed, disabled Current/Historical Medications Scheduled Baclofen (Lioresal), 10 MG PO TID Buspirone Hcl (Buspirone Hcl), 10 MG PO TID Cetirizine (Zyrtec), 10 MG PO QAM Diazepam (Valium), 5 MG PO BID Duloxetine Hcl (Cymbalta), 60 MG PO QAM Duloxetine Hcl (Cymbalta), 20 MG PO QAM Esomeprazole Magnesium (Nexium), 40 MG PO DAILY Fluticasone-Salmeterol 115/21 Mcg (Advair Hfa 115/21 Mcg), 1 PUFF INH BID Lactobacillus-Inulin (Culturelle), 1 CAP PO QAM Lisinopril (Lisinopril), 10 MG PO DAILY Montelukast Sodium (Singulair), 10 MG PO HS Ondasetron Odt (Zofran Odt), 4 MG SL Q6H Topiramate (Topamax), 200 MG PO BID Scheduled PRN Albuterol (Ventolin Hfa), 2 PUFFS INH QID PRN for SOB/Wheezing Allergies Coded Allergies: Aztreonam (Verified Allergy, Severe, SHORTNESS OF BREATH, 07/17/16) Cephalosporins (Verified Allergy, Severe, SHORTNESS OF BREATH, 07/17/16) Linezolid (Verified Allergy, Severe, SHORTNESS OF BREATH, 07/17/16) Penicillins (Verified Allergy, Severe, SHORTNESS OF BREATH, 07/17/16) Sulfa Antibiotics (Verified Allergy, Severe, SHORTNESS OF BREATH, 07/17/16) TOLERATED TAMSULOSIN; REPORTS SOB WITH BACTRIM Fexofenadine (Verified Allergy, Intermediate, HIVES, 07/17/16) Oxycodone (Verified Allergy, Intermediate, HIVES-ABLE TO TAKE DILAUDID, 07/17/16) Beta Adrenergic Blockers (Verified Allergy, Unknown, unknown, 07/17/16) Latex1 -Allergic Contact Dermititis (Verified Allergy, Unknown, RASH, ) Meperidine (Verified Allergy, Unknown, RESPIRATORY DISTRESS, 07/17/16) Neomycin (Verified Allergy, Unknown, 07/09/16) Propoxyphene (Verified Allergy, Unknown, UNKNOWN, 07/17/16) Quinolones (Verified Allergy, Unknown, QUINOLONES-SOB, CAN TAKE CIPRO W/O PROBLEM, 07/17/16) Pt denies cipro allergy. States she has taken in the past Tetracycline (Verified Allergy, Unknown, 07/17/16) Verapamil (Verified Allergy, Unknown, UNKNOWN, 07/17/16) Physical Exam Vital Signs Date Time Temp Pulse Resp B/P Pulse Ox O2 Delivery O2 Flow Rate FiO2 08/08/16 14:32 78 16 129/77 08/08/16 13:15 103 16 117/83 94 Room Air 08/08/16 10:19 94 08/08/16 10:16 36.7 85 20 143/68 98 Physical Exam GENERAL: Patient is in no acute distress. HEENT: No acute trauma, normocephalic atraumatic, mucous membranes moist, no nasal congestion, no scleral icterus. NECK: No stridor, no adenopathy, no meningismus, trachea is midline. LUNGS: Clear to auscultation bilaterally, no wheeze, no rhonchi, breath sounds equal. HEART: Without murmurs gallops or rubs, regular rate and rhythm. ABDOMEN: Soft, nontender, bowel sounds positive, no hernias, no peritonitis. BACK: Tender to the mid and lower thoracic spine, no low step off, no contusion. EXTREMITIES: No cyanosis or edema, full range of motion of all the joints without pain or difficulty, no signs for acute trauma. NEUROLOGIC: Oriented x 3, no acute motor or sensory deficits, no focal weakness. Evidence for cerebral palsy noted. SKIN: No rash, no jaundice, no diaphoresis. Medical Decision & Procedures ER Provider Diagnostic Interpretation: X ray results and stated below per my interpretation and radiologist interpretation. Other radiology results and stated below per my review and radiologist interpretation: THORACIC SPINE MRI HISTORY: Fall with right leg numbness. Difficulty urinating. TECHNIQUE: Multiplanar multisequence MRI of the thoracic spine was performed without the use of contrast. COMPARISON: Thoracic spine 07/17/2016. Thoracic spine CT 07/07/2016. FINDINGS: Alignment and curvature are intact. No fracture or subluxation. No significant central canal or neural foraminal narrowing. Minimal disc space narrowing within the mid to lower thoracic spine. Paraspinal soft tissues are unremarkable. The thoracic spinal cord demonstrates a normal signal intensity. IMPRESSION: No fracture or subluxation within the thoracic spine. The thoracic spinal cord is within normal limits. Electronically signed by: Jonn Ling M.D. 08/08/2016 1:47 PM Dictated Date/Time: 08/08/2016 1:43 PM LUMBAR SPINE MRI HISTORY: Fall. Right leg numbness. Difficulty urinating. TECHNIQUE: Multiplanar multisequence MRI of the lumbar spine was performed without the use of contrast. COMPARISON: Lumbar spine MRI 07/09/2016. FINDINGS: For the purpose of the report the L5-S1 disc space will be located on axial image 29 of 33. Exaggerated lordosis within the lumbar spine. There is posterior decompression at L2-L5. Postoperative changes within the lumbar soft tissues remain unchanged. Moderately distended bladder. The bone harvesting defect within the right posterior iliac bone. Moderate disc space narrowing at L5-S1 with partial fusion. This remains unchanged. Remaining disc spaces are preserved. No fractures within the lumbar spine. The visualized sacrum appears intact. There is again noted a broad-based posterior disc bulge at L3-L4 without significant central canal narrowing. There is mild bilateral neural foraminal narrowing at this level. No new disc herniations. The conus terminates at the T12-L1 disc space level. IMPRESSION: 1. No significant change compared to the 07/09/2016 lumbar spine MRI. 2. No acute fracture or subluxation within the lumbar spine. 3. Degenerative changes as described above most pronounced at the L3-L4 level. There is no significant central canal narrowing. There is mild bilateral neural foraminal narrowing. 4. Postoperative changes as described above. 5. Moderate distention of the bladder. Electronically signed by: Jonn Ling M.D. 08/08/2016 1:52 PM Dictated Date/Time: 08/08/2016 1:47 PM Laboratory Results 08/08/16 11:15 08/08/16 11:15 Test 08/08/16 11:15 08/08/16 14:30 Red Blood Count 4.21 M/uL (4.2-5.4) Mean Corpuscular Volume 87.4 fL (80-100) Mean Corpuscular Hemoglobin 30.4 pg (25-34) Mean Corpuscular Hemoglobin Concent 34.8 g/dl (32-36) RDW Standard Deviation 49.3 fL (36.4-46.3) RDW Coefficient of Variation 15.3 % (11.5-14.5) Mean Platelet Volume 8.9 fL (7.4-10.4) Anion Gap 6.0 mmol/L (3-11) Est Creatinine Clear Calc Drug Dose 126.5 ml/min Estimated GFR () 126.0 Estimated GFR (Non- 108.7 BUN/Creatinine Ratio 24.2 (10-20) Calcium Level 8.7 mg/dl (8.5-10.1) Urine Color YELLOW Urine Appearance CLEAR (CLEAR) Urine pH 7.0 (4.5-7.5) Urine Specific [place] 1.014 (1.000-1.030) Urine Protein NEG (NEG) Urine Glucose (UA) NEG (NEG) Urine Ketones NEG (NEG) Urine Occult Blood NEG (NEG) Urine Nitrite NEG (NEG) Urine Bilirubin NEG (NEG) Urine Urobilinogen NEG (NEG) Urine Leukocyte Esterase NEG (NEG) Laboratory results reviewed by me. Medications Administered Medications (Trade) Dose Ordered Sig/[place] Route Start Time Stop Time Status Last Admin Dose Admin Sodium Chloride 1,000 ml @ 125 mls/hr Q8H STAT IV 08/08/16 10:48 08/08/16 18:47 08/08/16 11:32 125 MLS/HR Sodium Chloride (Nss 500ml) 500 ml @ 999 mls/hr Q31M STAT IV 08/08/16 10:48 08/08/16 11:18 DC 08/08/16 11:32 999 MLS/HR Morphine Sulfate (MoRPHine SULFATE INJ) 6 mg NOW STAT IV 08/08/16 10:48 08/08/16 10:56 DC 08/08/16 11:32 6 MG Lorazepam (Ativan Inj) 1 mg NOW STAT IV 08/08/16 11:37 08/08/16 11:38 DC 08/08/16 11:42 1 MG ED Course 1045: The patient was evaluated in room C3. A complete history and physical exam was performed. 1048: Ordered Morphine Sulfate 6 mg IV, Sodium Chloride 500 ml @ 999 mls/hr IV, Sodium Chloride 1000 ml @ 125 mls/hr IV. 1443: Per Case Management, the patient does not wish to discuss various outpatient treatment options. 1458: Per Case Management, the patient states that she is going to kill herself if she goes home. She is going to be evaluated by [facility]. 1500: The patient was signed out to Dr. Charles at change of shift. 1507: I reevaluated the patient and updated her on her exam findings. She is awaiting a psych evaluation. Medical Decision The patient is a 31 year old female who presents to the ED with complaints of a sudden fall. Differential diagnoses considered include urinary retention, UTI, thoracic or lumbar fracture, spinal cord compression, nerve root compression, electrolyte imbalance, anemia, dehydration, acute on chronic pain. There is a mild leukocytosis which could be consistent with infection or with the stress of her situation, no anemia. No significant electrolyte abnormality or kidney failure. Urinalysis does not show infection. Cath urine produced about 500 mL, mild to moderate urinary retention. Urine tox is pending. MRIs of the thoracic and lumbar spine do not show any cord compression or acute fracture. The patient was given IV Ativan in preparation for her MRI. She received IV saline. She received 1 dose of IV morphine for pain. No further narcotic was given as there have been previous concerns for drug-seeking behavior. Since the MRI is unrevealing, I do not think further narcotic injections are necessary. The patient was being readied for discharge when she said that she could not go home, she apparently had some issues with her family today. The patient was seen by our case briefer and really there were no other services that could be offered. She then stated that if she went home she would take all her pills and end her life. At this point, psychiatry was consulted and we await their evaluation. The patient is presently resting comfortably, she has no complaints other than the back pain for which she appears to have chronically. The patient's care was assumed by Dr. Cristobal Charles, he is the oncoming ER physician. Impression Primary Impression: Thoracic back pain Additional Impressions: Urinary retention Cerebral palsy Suicidal ideation Scribe Attestation The scribe's documentation has been prepared under my direction and personally reviewed by me in its entirety. I confirm that the note above accurately reflects all work, treatment, procedures, and medical decision making performed by me. Departure Information Dispostion Still a Patient Referrals Naz Gordon PA-C (PCP) Patient Instructions My [facility] Problem Qualifiers
[2016-08-08 11:28] LABS: HEMATOCRIT 36.8 % (37-47); MEAN CELL VOLUME 87.4 fL (80-100); MEAN CORPUSCULAR HEMOGLOBIN 30.4 pg (25-34); MEAN CORPUSCULAR HGB CONC 34.8 g/dl (32-36); MEAN PLATELET VOLUME 8.9 fL (7.4-10.4); PLATELET COUNT 310 K/uL (130-400); RED BLOOD COUNT 4.21 M/uL (4.2-5.4); WHITE BLOOD COUNT 13.77 K/uL (4.8-10.8)
[2016-08-08] MEDS ORDERED: LORAZEPAM 2 MG/ML 1 ML VIAL IV STA (11:37)
[2016-08-08 11:45] LABS: BUN/CREATININE RATIO 24.2 (10-20); CALCIUM 8.7 mg/dl (8.5-10.1); CREATININE 0.74 mg/dl (0.60-1.20); POTASSIUM 3.7 mmol/L (3.5-5.1)
--- NOTE | 2016-08-08 13:48 | DIAGNOSTIC IMAGING REPORT ---
THORACIC SPINE MRI HISTORY: Fall with right leg numbness. Difficulty urinating. TECHNIQUE: Multiplanar multisequence MRI of the thoracic spine was performed without the use of contrast. COMPARISON: Thoracic spine 07/17/2016. Thoracic spine CT 07/07/2016. FINDINGS: Alignment and curvature are intact. No fracture or subluxation. No significant central canal or neural foraminal narrowing. Minimal disc space narrowing within the mid to lower thoracic spine. Paraspinal soft tissues are unremarkable. The thoracic spinal cord demonstrates a normal signal intensity. IMPRESSION: No fracture or subluxation within the thoracic spine. The thoracic spinal cord is within normal limits. Electronically signed by: Jonn Ling M.D. 08/08/2016 1:47 PM Dictated Date/Time: 08/08/2016 1:43 PM
--- NOTE | 2016-08-08 13:53 | DIAGNOSTIC IMAGING REPORT ---
LUMBAR SPINE MRI HISTORY: Fall. Right leg numbness. Difficulty urinating. TECHNIQUE: Multiplanar multisequence MRI of the lumbar spine was performed without the use of contrast. COMPARISON: Lumbar spine MRI 07/09/2016. FINDINGS: For the purpose of the report the L5-S1 disc space will be located on axial image 29 of 33. Exaggerated lordosis within the lumbar spine. There is posterior decompression at L2-L5. Postoperative changes within the lumbar soft tissues remain unchanged. Moderately distended bladder. The bone harvesting defect within the right posterior iliac bone. Moderate disc space narrowing at L5-S1 with partial fusion. This remains unchanged. Remaining disc spaces are preserved. No fractures within the lumbar spine. The visualized sacrum appears intact. There is again noted a broad-based posterior disc bulge at L3-L4 without significant central canal narrowing. There is mild bilateral neural foraminal narrowing at this level. No new disc herniations. The conus terminates at the T12-L1 disc space level. IMPRESSION: 1. No significant change compared to the 07/09/2016 lumbar spine MRI. 2. No acute fracture or subluxation within the lumbar spine. 3. Degenerative changes as described above most pronounced at the L3-L4 level. There is no significant central canal narrowing. There is mild bilateral neural foraminal narrowing. 4. Postoperative changes as described above. 5. Moderate distention of the bladder. Electronically signed by: Jonn Ling M.D. 08/08/2016 1:52 PM Dictated Date/Time: 08/08/2016 1:47 PM
[2016-08-08 14:51] LABS: MANUAL MICROSCOPIC REQUIRED? NO; REVIEW REQ? NO; URINE APPEARANCE CLEAR (CLEAR); URINE BILIRUBIN NEG (NEG); URINE COLOR YELLOW; URINE NITRITE NEG (NEG); URINE SPECIFIC GRAVITY 1.014 (1.000-1.030); UROBILINOGEN NEG (NEG)
--- NOTE | 2016-08-08 15:43 | EMERGENCY ROOM VISIT NOTE ---
ED Visit Note First contact with patient: 15:42 Patient taken in sign out from Dr. Pardo. Case management met with the patient. She states that she does not want to hurt herself and only said that to get attention. The patient's family was called and she has no access to pills. They are comfortable with her going home. I spoke with the patient and she is feeling better and is comfortable with going home.
[2016-08-08 15:45] LABS: BENZODIAZEPINE, URINE POS (NEG); COCAINE,URINE NEG (NEG); PHENCYCLIDINE, URINE NEG (NEG)
[2016-08-08 17:34] VITALS: BP 152/81; PULSE 81; O2SAT 100
[2016-08-11 02:49] LABS: COD UR NEGATIVE NG/ML (CUTOFF=50); HYDROCOD UR NEGATIVE NG/ML (CUTOFF=50); HYDROMOR UR NEGATIVE NG/ML (CUTOFF=50); HYDROXYETHYLFLURAZEPAM CONF NEGATIVE NG/ML (CUTOFF=50); HYDROXYMIDAZOLAM NEGATIVE NG/ML (CUTOFF=50); HYDROXYTRIAZOLAM CONF NEGATIVE NG/ML (CUTOFF=50); MORPHINE UR 2960 NG/ML (CUTOFF=50); NORHYDROCODONE CONF UR NEGATIVE NG/ML (CUTOFF=50); OXYMORPH UR NEGATIVE NG/ML (CUTOFF=50); TEMAZEPAM CONF 1200 NG/ML (CUTOFF=50)
[2016-08-18] MEDS ORDERED: DULO-24 PO (14:29)
[2016-12-17] MEDS ORDERED: NXM/40 PO (06:51)
[2016-12-17] MEDS ORDERED: CETI10TA84 PO (13:34)
[2016-12-17] MEDS ORDERED: LISI-461 PO (13:47)
[2016-12-17] MEDS ORDERED: LACT10CA3 PO (14:30)
[2016-12-17] MEDS ORDERED: FLUT115A INH (14:31)
[2016-12-17] MEDS ORDERED: VLM5CL PO (15:11)
[2016-12-17] MEDS ORDERED: ONDA4TAB10 SL (15:11)
[2016-12-17] MEDS ORDERED: PRVHFAIN INH (15:57)
[2016-12-17] MEDS ORDERED: CMP/10 PO (17:09)
== END 2016-08-08 17:35 | disposition home or self-care (01) ==
LOC: EDBD 10:11 → C.EDC 10:12
DX: M54.6 Pain in thoracic spine (principal); R33.9 Retention of urine, unspecified; G80.9 Cerebral palsy, unspecified; R45.851 Suicidal ideations; F41.9 Anxiety disorder, unspecified; J45.909 Unspecified asthma, uncomplicated; I10 Essential (primary) hypertension; Z90.49 Acquired absence of other specified parts of digestive tract

== ENCOUNTER 2016-08-13 17:30 | Emergency (ER) | payer OTHER ==
[~2016-08-13] VITALS: Ht 152.4 cm; Wt 106.8 kg
[~2016-08-13 17:30] MED LIST changes: -OLAN-111 PO
[2016-08-13 17:37] VITALS: TEMP 37; Ht 152.4 cm; Wt 106.8 kg
--- NOTE | 2016-08-13 18:03 | EMERGENCY ROOM VISIT NOTE ---
History Report prepared by Alma: Martine Vides Under the Supervision of: Dr. Jacqueline Mendoza D.O. First contact with patient: 17:46 Chief Complaint: UNABLE TO VOID Stated Complaint: CAN'T PEE, KIDNEY PAIN Nursing Triage Summary: pt reports unable to void since 0500 today , reports low back pain and L flank pain X 3 days , pt reports dysuria History of Present Illness The patient is a 31 year old female who presents to the Emergency Room with complaints of persistent urinary retention that began 12 hours ago. She currently rates her discomfort as a 7/10 in severity. The patient states that this has happened in the past, noting that she previously had a suprapubic catheter. She states that she is additionally noticing left flank pain. The patient associates nausea, but denies any vomiting. She states that she had a recent fall one week ago. Source of History: patient Onset: 12 hours ago Position: other (global) Symptom Intensity: 7/10 Quality: other (urinary retention) Timing: other (persistent) Associated Symptoms: + nausea, No vomiting Note: Associated Symptoms: left flank pain Review of Systems See HPI for pertinent positives & negatives. A total of 10 systems reviewed and were otherwise negative. Past Medical & Surgical Medical Problems: (1) Anxiety disorder (2) Asthma (3) Cerebral palsy (4) Depression (5) GERD (gastroesophageal reflux disease) (6) Hypertension (7) Insulin resistance (8) lysis of adhesions (9) MRSA (methicillin resistant Staphylococcus aureus) (10) Paralysis of both lower limbs (11) Suicidal ideations Surgical Problems: (1) H/O dilation and curettage (2) H/O shoulder surgery (3) History of hysterectomy (4) History of laminectomy (5) Hx of cholecystectomy (6) Hx of eye surgery (7) Hx of spinal fusion (8) S/P surgical manipulation of ankle joint Family History Diabetes mellitus FHx: gallbladder disease Hypertension Social History Smoking Status: Never Smoker Alcohol Use: none Drug Use: none Marital Status: single Housing Status: lives alone Occupation Status: employed, disabled Current/Historical Medications Scheduled Baclofen (Lioresal), 10 MG PO TID Buspirone Hcl (Buspirone Hcl), 10 MG PO TID Cetirizine (Zyrtec), 10 MG PO QAM Diazepam (Valium), 5 MG PO BID Duloxetine Hcl (Cymbalta), 60 MG PO QAM Duloxetine Hcl (Cymbalta), 20 MG PO QAM Esomeprazole Magnesium (Nexium), 40 MG PO DAILY Fluticasone-Salmeterol 115/21 Mcg (Advair Hfa 115/21 Mcg), 1 PUFF INH BID Lactobacillus-Inulin (Culturelle), 1 CAP PO QAM Lisinopril (Lisinopril), 10 MG PO DAILY Montelukast Sodium (Singulair), 10 MG PO HS Ondasetron Odt (Zofran Odt), 4 MG SL Q6H Topiramate (Topamax), 200 MG PO BID Scheduled PRN Albuterol (Ventolin Hfa), 2 PUFFS INH QID PRN for SOB/Wheezing Allergies Coded Allergies: Aztreonam (Verified Allergy, Severe, SHORTNESS OF BREATH, 08/13/16) Cephalosporins (Verified Allergy, Severe, SHORTNESS OF BREATH, 08/13/16) Linezolid (Verified Allergy, Severe, SHORTNESS OF BREATH, 08/13/16) Penicillins (Verified Allergy, Severe, SHORTNESS OF BREATH, 08/13/16) Sulfa Antibiotics (Verified Allergy, Severe, SHORTNESS OF BREATH, 08/13/16) TOLERATED TAMSULOSIN; REPORTS SOB WITH BACTRIM Fexofenadine (Verified Allergy, Intermediate, HIVES, 08/13/16) Oxycodone (Verified Allergy, Intermediate, HIVES-ABLE TO TAKE DILAUDID, 08/13/16) Beta Adrenergic Blockers (Verified Allergy, Unknown, unknown, 08/13/16) Latex1 -Allergic Contact Dermititis (Verified Allergy, Unknown, RASH, ) Meperidine (Verified Allergy, Unknown, RESPIRATORY DISTRESS, 08/13/16) Neomycin (Verified Allergy, Unknown, 08/13/16) Propoxyphene (Verified Allergy, Unknown, UNKNOWN, 08/13/16) Quinolones (Verified Allergy, Unknown, QUINOLONES-SOB, CAN TAKE CIPRO W/O PROBLEM, 08/13/16) Pt denies cipro allergy. States she has taken in the past Tetracycline (Verified Allergy, Unknown, 08/13/16) Verapamil (Verified Allergy, Unknown, UNKNOWN, 08/13/16) Physical Exam Vital Signs Date Time Temp Pulse Resp B/P Pulse Ox O2 Delivery O2 Flow Rate FiO2 08/13/16 19:34 86 18 122/71 95 08/13/16 18:54 82 18 119/66 98 Room Air 08/13/16 17:37 37.0 112 20 136/87 98 Room Air Physical Exam HEENT: Head - normocephalic and atraumatic Pupils are equal, round, and reactive to light. Extraocular eye muscles are intact, and sclera are anicteric. Nose - moist nasal mucosa without discharge. Mouth - moist buccal mucosa. Oropharynx is nonerythematous and there is no tonsillar exudate or edema noted. Neck: Supple; no JVD, nuchal rigidity, cervical lymphadenopathy. Heart: Regular rate and rhythm. There is a normal S1 and S2 with no murmurs, clicks, or gallops appreciated. Lungs: Clear to auscultation bilaterally with no wheezes, rales, or rhonchi. Abdomen: Mild, suprapubic tenderness with palpation. Soft, nondistended, with good bowel sounds. There are no palpable pulsatile masses or hepatosplenomegaly. There is no guarding, rigidity, or rebound noted. Extremities: No evidence of cyanosis, clubbing, or edema. There are easily palpable peripheral pulses. Skin: warm and dry with good turgor and no rashes. Medical Decision & Procedures Laboratory Results Test 08/13/16 18:56 Urine Color YELLOW Urine Appearance CLEAR (CLEAR) Urine pH 6.5 (4.5-7.5) Urine Specific [place] 1.003 (1.000-1.030) Urine Protein NEG (NEG) Urine Glucose (UA) NEG (NEG) Urine Ketones NEG (NEG) Urine Occult Blood NEG (NEG) Urine Nitrite NEG (NEG) Urine Bilirubin NEG (NEG) Urine Urobilinogen NEG (NEG) Urine Leukocyte Esterase NEG (NEG) Laboratory results per my review. Medications Administered Medications (Trade) Dose Ordered Sig/[place] Route Start Time Stop Time Status Last Admin Dose Admin Ketorolac Tromethamine (Toradol Inj) 60 mg NOW STAT IM 08/13/16 19:00 08/13/16 19:01 DC 08/13/16 19:13 60 MG Procedure The patient was treated with Toradol Inj 60 mg IM. ED Course 1751: Past medical records reviewed. The patient was evaluated in room C4. A complete history and physical exam was performed. 181: Per nursing staff, the patient is refusing Rayo, wants a straight cath. 182: The patient refused the bladder scan and wants a straight cath, she wants to refuse the Rayo because it hurts too much. 183: Per nursing staff the patients bladder scan showed 900 cc of urine retained. 185: I reevaluated the patient and she argued with me about giving pain medications. 190: Ordered Toradol Inj 60 mg IM. I recommended that the patient having Rayo catheter placed and follow-up with urology for urinary retention. 192: I reevaluated the patient and she is doing fine. I discussed the exam findings with her and I discussed the treatment plan. She verbalized complete understanding and agreement. She is going to follow up with a urologist in [place]. She is ready to go home. Medical Decision The patient is a 31 year old female who presents to the ED with urinary retention. Differential diagnosis includes drug seeking behavior, urinary retention, UTI. Lab interpretation: Urinalysis is unremarkable The patient has had urinary retention for the past 12 hours. She is resting comfortably after the Rayo catheter was placed. Urinalysis was unremarkable and showed no signs of infection. I offered to refer the patient to a urologist here in [place] but she would rather follow with the urologist in [place]. Impression Primary Impression: Urinary retention Scribe Attestation The scribe's documentation has been prepared under my direction and personally reviewed by me in its entirety. I confirm that the note above accurately reflects all work, treatment, procedures, and medical decision making performed by me. Departure Information Dispostion Home / Self-Care Referrals No Doctor, Assigned (PCP) Forms HOME CARE DOCUMENTATION FORM, IMPORTANT VISIT INFORMATION, WORK / SCHOOL INSTRUCTIONS Patient Instructions ED Retention Urinary Female, My [facility] [employer] Additional Instructions leave rayo cath in place. Follow up with Urology by Tuesday Use ibuprofen for pain
[2016-08-13] MEDS ORDERED: KETOROLAC TROMETHAMINE 60 MG/2 ML VIAL IM STA (19:00)
[2016-08-13 19:14] LABS: URINE APPEARANCE CLEAR (CLEAR); URINE BILIRUBIN NEG (NEG); URINE COLOR YELLOW; URINE NITRITE NEG (NEG); URINE PH 6.5 (4.5-7.5); URINE SPECIFIC GRAVITY 1.003 (1.000-1.030); UROBILINOGEN NEG (NEG)
[2016-08-13 19:16] LABS: MANUAL MICROSCOPIC REQUIRED? NO; REVIEW REQ? NO
[2016-08-13 19:34] VITALS: BP 122/71; PULSE 86; O2SAT 95
[2016-08-18] MEDS ORDERED: DULO-24 PO (14:29)
[2016-12-17] MEDS ORDERED: NXM/40 PO (06:51)
[2016-12-17] MEDS ORDERED: CETI10TA84 PO (13:34)
[2016-12-17] MEDS ORDERED: LISI-461 PO (13:47)
[2016-12-17] MEDS ORDERED: LACT10CA3 PO (14:30)
[2016-12-17] MEDS ORDERED: FLUT115A INH (14:31)
[2016-12-17] MEDS ORDERED: ONDA4TAB10 SL (15:11)
[2016-12-17] MEDS ORDERED: VLM5CL PO (15:11)
[2016-12-17] MEDS ORDERED: PRVHFAIN INH (15:57)
[2016-12-17] MEDS ORDERED: CMP/10 PO (17:09)
== END 2016-08-13 19:34 | disposition home or self-care (01) ==
LOC: C.EDB 17:31 → C.EDC 19:34
DX: R33.9 Retention of urine, unspecified (principal); F41.9 Anxiety disorder, unspecified; J45.909 Unspecified asthma, uncomplicated; G80.9 Cerebral palsy, unspecified; F32.9 Major depressive disorder, single episode, unspecified; K21.9 Gastro-esophageal reflux disease without esophagitis; I10 Essential (primary) hypertension; E88.81 Metabolic syndrome and other insulin resistance; Z90.710 Acquired absence of both cervix and uterus

== ENCOUNTER 2016-08-15 16:14 | Emergency (ER) | payer OTHER ==
[~2016-08-15] VITALS: Ht 152.4 cm; Wt 107.0 kg
[2016-08-15 16:16] VITALS: TEMP 36.7; Ht 152.4 cm; Wt 107.0 kg
[2016-08-15] MEDS ORDERED: KETOROLAC TROMETHAMINE 60 MG/2 ML VIAL IM STA (16:47)
[2016-08-15] MEDS ORDERED: DiphenhydrAMINE HCL 50 MG/ML VIAL IM STA ×2 (17:09→17:43)
[2016-08-15 17:38] LABS: URINE APPEARANCE CLEAR (CLEAR); URINE BILIRUBIN NEG (NEG); URINE COLOR YELLOW; URINE EPITHELIAL CELL AUTO 0-5 /lpf (0-5); URINE NITRITE NEG (NEG); URINE PH 7.5 (4.5-7.5); URINE SPECIFIC GRAVITY 1.006 (1.000-1.030); UROBILINOGEN NEG (NEG); ZZURINE CULT IF INDIC CATH NO
[2016-08-15 17:39] LABS: MANUAL MICROSCOPIC REQUIRED? NO; REVIEW REQ? NO
--- NOTE | 2016-08-15 17:40 | DIAGNOSTIC IMAGING REPORT ---
HEAD CT NONCONTRAST CT DOSE: 1261.91 mGy.cm HISTORY: Trauma fall hit head TECHNIQUE: Multiaxial CT images of the head were performed without the use of intravenous contrast. Comparison: 09/11/2015 Findings: The paranasal sinuses and mastoid air cells are clear. The calvarium and skull base are intact. The ventricles and sulci are within normal limits. There is no mass, hematoma, midline shift, or acute infarct. Impression: No acute intracranial abnormality. Electronically signed by: Lawrence Roberts M.D. 08/15/2016 5:38 PM Dictated Date/Time: 08/15/2016 5:37 PM
--- NOTE | 2016-08-15 17:41 | DIAGNOSTIC IMAGING REPORT ---
CERVICAL SPINE CT CT DOSE: HISTORY: Trauma fall hit head TECHNIQUE: Multiaxial CT images of the cervical spine were performed and reformatted in the sagittal and coronal plane without the use of contrast. COMPARISON: 05/10/2015 FINDINGS: No fractures. No subluxation. Prevertebral soft tissues and the C1-C2 interval are intact. No pneumothorax. IMPRESSION: No fractures within the cervical spine. Electronically signed by: Lawrence Roberts M.D. 08/15/2016 5:39 PM Dictated Date/Time: 08/15/2016 5:38 PM
[2016-08-15] MEDS ORDERED: DEXAMETHASONE SOD INJ 10 MG/ML VIAL IM ONE (17:45)
--- NOTE | 2016-08-15 18:50 | DIAGNOSTIC IMAGING REPORT ---
CHEST ONE VIEW PORTABLE CLINICAL HISTORY: fall trauma COMPARISON STUDY: 07/11/2016 FINDINGS: The bones soft tissues and hemidiaphragms are normal. The cardiomediastinal silhouette is normal. The lungs are clear. The pulmonary vasculature is normal. IMPRESSION: Negative chest. Electronically signed by: Lawrence Roberts M.D. 08/15/2016 6:49 PM Dictated Date/Time: 08/15/2016 6:49 PM
--- NOTE | 2016-08-15 18:51 | DIAGNOSTIC IMAGING REPORT ---
THORACIC SPINE 3 VIEWS HISTORY: Trauma upper back pain s/p fall COMPARISON: None. FINDINGS: There is no fracture. No subluxation. Mild degenerative disc change throughout IMPRESSION: No acute process Electronically signed by: Lawrence Roberts M.D. 08/15/2016 6:50 PM Dictated Date/Time: 08/15/2016 6:49 PM
--- NOTE | 2016-08-15 18:52 | DIAGNOSTIC IMAGING REPORT ---
RIGHT PELVIS/UNILATERAL HIP 2-3VIEWS CLINICAL HISTORY: right hip pain Right trauma. Pain. COMPARISON: None. DISCUSSION: The bones and joint spaces appear intact. There is no evidence of fracture, dislocation or bony disease. There is no evidence for soft tissue swelling. Mild degenerative narrowing of the hip joint spaces bilaterally. No evidence for acetabular protrusion. IMPRESSION: No acute process Electronically signed by: Lawrence Roberts M.D. 08/15/2016 6:51 PM Dictated Date/Time: 08/15/2016 6:50 PM
[2016-08-15 19:39] VITALS: BP 115/79; PULSE 72; O2SAT 99
--- NOTE | 2016-08-15 20:32 | EMERGENCY ROOM VISIT NOTE ---
History Report prepared by Alma: Jayne Elizabeth Under the Supervision of: Dr. Nadir Fagan D.O. First contact with patient: 16:27 Chief Complaint: FALL Stated Complaint: FALL,CAN'T PEE History of Present Illness The patient is a 31 year old female who presents to the Emergency Room with complaints of an episode of a fall beginning 2 hours ago. The patient states that she has had difficulty urinating before and this has been going on since this past fall. She was seen here the other day for the same thing and had a catheter placed following a cath and bladder scan for 900 MLS. She reports that today she fell at her house walking to try to go in the bathroom and hit her head and upper back. She notes that she lives in [place] and came here today because the people are nice here. The patient complains of right hip pain, difficulty urinating and feeling like her bladder is going to "explode", headache, neck pain and back pain. She denies any change in vision, leg pain, and arm pain. Her headache is in the back of her head where she hit her head. The patient states that she can't take Tylenol because of her liver because she says that it reduces the function. Patient notes that she has diminished feelings in the legs which is unchanged. No new weakness or numbness. Source of History: patient Onset: 2 hours ago Position: other (global) Quality: other (fall) Timing: other (episode) Associated Symptoms: + back pain, + headache, + neck pain Note: The patient complains of right hip pain, difficulty urinating and feeling like her bladder is going to "explode". She denies any change in vision, leg pain, and arm pain. Review of Systems See HPI for pertinent positives & negatives. A total of 10 systems reviewed and were otherwise negative. Past Medical & Surgical Medical Problems: (1) Anxiety disorder (2) Asthma (3) Cerebral palsy (4) Depression (5) GERD (gastroesophageal reflux disease) (6) Hypertension (7) Insulin resistance (8) lysis of adhesions (9) MRSA (methicillin resistant Staphylococcus aureus) (10) Paralysis of both lower limbs (11) Suicidal ideations Surgical Problems: (1) H/O dilation and curettage (2) H/O shoulder surgery (3) History of hysterectomy (4) History of laminectomy (5) Hx of cholecystectomy (6) Hx of eye surgery (7) Hx of spinal fusion (8) S/P surgical manipulation of ankle joint Family History Diabetes mellitus FHx: gallbladder disease Hypertension Social History Smoking Status: Never Smoker Alcohol Use: none Drug Use: none Marital Status: single Housing Status: lives alone Occupation Status: employed, disabled Current/Historical Medications Scheduled Baclofen (Lioresal), 10 MG PO TID Buspirone Hcl (Buspirone Hcl), 10 MG PO TID Cetirizine (Zyrtec), 10 MG PO QAM Diazepam (Valium), 5 MG PO BID Duloxetine Hcl (Cymbalta), 60 MG PO QAM Duloxetine Hcl (Cymbalta), 20 MG PO QAM Esomeprazole Magnesium (Nexium), 40 MG PO DAILY Fluticasone-Salmeterol 115/21 Mcg (Advair Hfa 115/21 Mcg), 1 PUFF INH BID Lactobacillus-Inulin (Culturelle), 1 CAP PO QAM Lisinopril (Lisinopril), 10 MG PO DAILY Montelukast Sodium (Singulair), 10 MG PO HS Ondasetron Odt (Zofran Odt), 4 MG SL Q6H Topiramate (Topamax), 200 MG PO BID Scheduled PRN Albuterol (Ventolin Hfa), 2 PUFFS INH QID PRN for SOB/Wheezing Allergies Coded Allergies: Aztreonam (Verified Allergy, Severe, SHORTNESS OF BREATH, 08/13/16) Cephalosporins (Verified Allergy, Severe, SHORTNESS OF BREATH, 08/13/16) Linezolid (Verified Allergy, Severe, SHORTNESS OF BREATH, 08/13/16) Penicillins (Verified Allergy, Severe, SHORTNESS OF BREATH, 08/13/16) Sulfa Antibiotics (Verified Allergy, Severe, SHORTNESS OF BREATH, 08/13/16) TOLERATED TAMSULOSIN; REPORTS SOB WITH BACTRIM Fexofenadine (Verified Allergy, Intermediate, HIVES, 08/13/16) Oxycodone (Verified Allergy, Intermediate, HIVES-ABLE TO TAKE DILAUDID, 08/13/16) Latex (Verified Allergy, Mild, Itching, 08/15/16) Beta Adrenergic Blockers (Verified Allergy, Unknown, unknown, 08/13/16) Latex1 -Allergic Contact Dermititis (Verified Allergy, Unknown, RASH, ) Meperidine (Verified Allergy, Unknown, RESPIRATORY DISTRESS, 08/13/16) Neomycin (Verified Allergy, Unknown, 08/13/16) Propoxyphene (Verified Allergy, Unknown, UNKNOWN, 08/13/16) Quinolones (Verified Allergy, Unknown, QUINOLONES-SOB, CAN TAKE CIPRO W/O PROBLEM, 08/13/16) Pt denies cipro allergy. States she has taken in the past Tetracycline (Verified Allergy, Unknown, 08/13/16) Verapamil (Verified Allergy, Unknown, UNKNOWN, 08/13/16) Physical Exam Vital Signs Date Time Temp Pulse Resp B/P Pulse Ox O2 Delivery O2 Flow Rate FiO2 08/15/16 19:39 72 18 115/79 99 Room Air 08/15/16 18:06 77 18 122/81 99 Room Air 08/15/16 16:16 36.7 118 20 132/77 99 Room Air Physical Exam GENERAL: sitting up in bed, no distress, non-toxic EYE EXAM: normal conjunctiva OROPHARYNX: no exudate, no erythema, lips, buccal mucosa, and tongue normal and mucous membranes are moist NECK: supple, no nuchal rigidity, no adenopathy, non-tender. Midline cervical tenderness on palpation LUNGS: Clear to auscultation. Normal chest wall mechanics HEART: no murmurs, S1 normal and S2 normal ABDOMEN: abdomen soft, non-tender, normo-active bowel sounds, no masses, no rebound or guarding. BACK: Back is symmetrical on inspection and there is no deformity. Mild upper thoracic pain on patient SKIN: no rashes and no bruising UPPER EXTREMITIES: upper extremities are grossly normal. LOWER EXTREMITIES: No pitting edema. Minimal flexion at hips, able to lift heels off the bed. NEURO EXAM: Alert, cranial nerves II-XII grossly intact. No weakness of upper extremities or lower extremities with only slight flexion in the hip which is old per patient. Medical Decision & Procedures ER Provider Diagnostic Interpretation: Xray results per the radiologist and my interpretation. Other results have been interpreted by the radiologist and reviewed by me. HEAD CT NONCONTRAST Findings: The paranasal sinuses and mastoid air cells are clear. The calvarium and skull base are intact. The ventricles and sulci are within normal limits. There is no mass, hematoma, midline shift, or acute infarct. Impression: No acute intracranial abnormality. Electronically signed by: Lawrence Roberts M.D. 08/15/2016 5:38 PM Dictated Date/Time: 08/15/2016 5:[address] FINDINGS: No fractures. No subluxation. Prevertebral soft tissues and the C1-C2 interval are intact. No pneumothorax. IMPRESSION: No fractures within the cervical spine. Electronically signed by: Lawrence Roberts M.D. 08/15/2016 5:39 PM Dictated Date/Time: 08/15/2016 5:[address] FINDINGS: No fractures. No subluxation. Prevertebral soft tissues and the C1-C2 interval are intact. No pneumothorax. IMPRESSION: No fractures within the cervical spine. Electronically signed by: Lawrence Roberts M.D. 08/15/2016 5:39 PM Dictated Date/Time: 08/15/2016 5:38 PM RIGHT PELVIS/UNILATERAL HIP 2-3VIEWS DISCUSSION: The bones and joint spaces appear intact. There is no evidence of fracture, dislocation or bony disease. There is no evidence for soft tissue swelling. Mild degenerative narrowing of the hip joint spaces bilaterally. No evidence for acetabular protrusion. IMPRESSION: No acute process Electronically signed by: Lawrence Roberts M.D. 08/15/2016 6:51 PM Dictated Date/Time: 08/15/2016 6:50 PM RIGHT PELVIS/UNILATERAL HIP 2-3VIEWS DISCUSSION: The bones and joint spaces appear intact. There is no evidence of fracture, dislocation or bony disease. There is no evidence for soft tissue swelling. Mild degenerative narrowing of the hip joint spaces bilaterally. No evidence for acetabular protrusion. IMPRESSION: No acute process Electronically signed by: Lawrence Roberts M.D. 08/15/2016 6:51 PM Dictated Date/Time: 08/15/2016 6:50 PM Laboratory Results Test 08/15/16 16:57 Urine Color YELLOW Urine Appearance CLEAR (CLEAR) Urine pH 7.5 (4.5-7.5) Urine Specific [place] 1.006 (1.000-1.030) Urine Protein NEG (NEG) Urine Glucose (UA) NEG (NEG) Urine Ketones NEG (NEG) Urine Occult Blood NEG (NEG) Urine Nitrite NEG (NEG) Urine Bilirubin NEG (NEG) Urine Urobilinogen NEG (NEG) Urine Leukocyte Esterase NEG (NEG) Urine WBC (Auto) 0 /hpf (0-5) Urine RBC (Auto) 0-4 /hpf (0-4) Urine Hyaline Casts (Auto) 0 /lpf (0-5) Urine Epithelial Cells (Auto) 0-5 /lpf (0-5) Urine Bacteria (Auto) NEG (NEG) Laboratory results per my review. Medications Administered Medications (Trade) Dose Ordered Sig/[place] Route Start Time Stop Time Status Last Admin Dose Admin Ketorolac Tromethamine (Toradol Inj) 60 mg NOW STAT IM 08/15/16 16:47 08/15/16 16:48 DC 08/15/16 17:16 60 MG Diphenhydramine HCl (Benadryl Inj) 25 mg NOW STAT IM 08/15/16 17:09 08/15/16 17:11 DC 08/15/16 17:15 25 MG Diphenhydramine HCl (Benadryl Inj) 25 mg NOW STAT IM 08/15/16 17:43 08/15/16 17:44 DC 08/15/16 17:54 25 MG Dexamethasone Sodium Phosphate (Decadron Inj) 10 mg NOW ONCE IM 08/15/16 17:45 08/15/16 17:46 DC 08/15/16 17:54 10 MG ECG Indication: other (fall) Rate (beats per minute): 77 Rhythm: sinus rhythm Findings: no acute ischemic change, no ectopy, other (normal axis) ED Course ED COURSE: Vital signs were reviewed and showed tachycardia The patients medical record was reviewed The above diagnostic studies were performed and reviewed. ED treatments and interventions as stated above. 163: The patient was evaluated in room B12B. A complete history and physical examination was performed. The patient had an MRI of thoracic and lumbar spine that was unremarkable on 08/08. 1647: Toradol Inj 60mg IM. 170: I reevaluated and updated the patient. 1709: Benadryl Inj 25mg IM. 1723: On 08/08 the patient stated she has had trouble urinating since the fall. She had a lumbar MRI that showed distension of the bladder and cath urine removed 500mls. 1743: Benadryl Inj 25mg IM. 1745: Decadron Inj 10mg Im. 1757: I updated the patient. She is feeling itchy 1913: Upon reevaluation, the patient is hemodynamically stable.I discussed my findings with the patient and she understands and agrees with the treatment plan. Based on the patients age, coexisting illnesses, exam and lab findings the decision to treat as an outpatient was made. The patient remained stable while under my care. The patient appeared well at the time of discharge. Medical Decision Differential diagnoses include major intracranial, cervical, spinal, thoracic, abdominal, pelvic and neurologic injury. Fracture, contusion, sprain, strain, laceration, abrasions included as well. Patient is a 31-year-old female who is paralyzed in the lower extremities that presents following a fall. She notes that she fell backwards and hit her head. She did not pass out. She has a headache neck pain and upper thoracic pain along with right hip pain. CT of her head and cervical spine were negative. X- rays of the thoracic and pelvis/right hip were negative as well. Patient was also complaining of urinary retention which has been present since this past fall per the patient. On her multiple recent visits June she was bladder scanned and had a Pedraza placed. She removed the Perdaza at home. Again tonight she was cathed and Pedraza was placed that she had 900mls removed. This does appear to be a chronic issue per the patient and per review of her chart. I do not believe that this is acute secondary to the fall since it has been present and unchanged since the fall. Patient was updated regards to findings. Following her initial cath she notes that she is allergic to latex has been extremely itchy following the catheterization. She is given 2 doses of Benadryl with improvement. She was given Toradol with improvement of her pain. He did not resolve and she requests narcotics but I did not feel this is reasonable especially since she is under treatment plan and there is no acute injury. Patient was discharged to follow-up with urology and her PCP. Discussed with Pt concerning signs and symptoms to watch out for. Pt was instructed to follow up with their PCP and discussed with the patient their option to return to the ED at anytime for persistent or worsening symptoms. The appropriate anticipatory guidance and out-patient management, including indications for return to the emergency department, were explained at length to the patient and understood. Impression Primary Impression: Fall Additional Impressions: Headache Neck strain Urinary retention Scribe Attestation The scribe's documentation has been prepared under my direction and personally reviewed by me in its entirety. I confirm that the note above accurately reflects all work, treatment, procedures, and medical decision making performed by me. Departure Information Dispostion Home / Self-Care Referrals No Doctor, Assigned (PCP) Forms HOME CARE DOCUMENTATION FORM, IMPORTANT VISIT INFORMATION Patient Instructions ED Retention Urinary Female, ED Sprain Strain Neck, My [facility] Additional Instructions Please follow up with your primary care doctor with in the next 24 hours. Any worsening of your symptoms, please return to the ED immediately. This includes any fevers greater than 100.4, worsening pain, confusion, with new weakness or numbness, or any other concerning signs or symptoms from your standpoint. Any new pain or worsening of your pain should follow-up for repeat evaluation immediately. You currently have a Pedraza in place which is the catheter in your ureter. You must follow up with your primary care doctor tomorrow and a urologist within the week. The reason for this as this Pedraza cannot remain in for a prolonged period of time/greater than a week without it being followed by a physician as you are at a high risk for infection. Problem Qualifiers Primary Impression: Fall Encounter type: initial encounter Qualified Codes: W19.XXXA - Unspecified fall, initial encounter Additional Impressions: Headache Headache type: unspecified Headache chronicity pattern: acute headache Intractability: not intractable Qualified Codes: R51 - Headache Neck strain Encounter type: initial encounter Qualified Codes: S16.1XXA - Strain of muscle, fascia and tendon at neck level, initial encounter
[2016-08-18] MEDS ORDERED: DULO-24 PO (14:29)
[2016-12-17] MEDS ORDERED: NXM/40 PO (06:51)
[2016-12-17] MEDS ORDERED: CETI10TA84 PO (13:34)
[2016-12-17] MEDS ORDERED: LISI-461 PO (13:47)
[2016-12-17] MEDS ORDERED: LACT10CA3 PO (14:30)
[2016-12-17] MEDS ORDERED: FLUT115A INH (14:31)
[2016-12-17] MEDS ORDERED: ONDA4TAB10 SL (15:11)
[2016-12-17] MEDS ORDERED: VLM5CL PO (15:11)
[2016-12-17] MEDS ORDERED: PRVHFAIN INH (15:57)
[2016-12-17] MEDS ORDERED: CMP/10 PO (17:09)
== END 2016-08-15 19:41 | disposition home or self-care (01) ==
LOC: C.EDB 16:15
DX: R33.9 Retention of urine, unspecified (principal); S16.1XXA Strain of muscle, fascia and tendon at neck level, initial encounter; W19.XXXA Unspecified fall, initial encounter; R51 Headache; M25.551 Pain in right hip; F41.9 Anxiety disorder, unspecified; J45.909 Unspecified asthma, uncomplicated; G80.9 Cerebral palsy, unspecified; F32.9 Major depressive disorder, single episode, unspecified; K21.9 Gastro-esophageal reflux disease without esophagitis; I10 Essential (primary) hypertension; E88.81 Metabolic syndrome and other insulin resistance; Z90.710 Acquired absence of both cervix and uterus; Z90.49 Acquired absence of other specified parts of digestive tract; Z98.1 Arthrodesis status; Z83.3 Family history of diabetes mellitus; Z82.49 Family history of ischemic heart disease and other diseases of the circulatory system; Z79.4 Long term (current) use of insulin; Z79.899 Other long term (current) drug therapy

== ENCOUNTER 2016-08-18 14:33 | Emergency (ER) | payer OTHER ==
[~2016-08-18] VITALS: Ht 152.4 cm; Wt 110.0 kg
[~2016-08-18 14:33] MED LIST changes: +DULO-24 PO
[2016-08-18 14:39] VITALS: TEMP 37; Ht 152.4 cm; Wt 110.0 kg
[2016-08-18] MEDS ORDERED: ESOM1CAP34 PO (15:11)
[2016-08-18] MEDS ORDERED: ONDANSETRON INJ 2 MG/ML 2 ML VIAL IV STA (15:19)
[2016-08-18] MEDS ORDERED: SODIUM CHLORIDE 0.9% 500ML 500 ML IV STA (15:19)
[2016-08-18] MEDS ORDERED: OPTIRAY 320 IV PRN (15:30)
[2016-08-18] MEDS ORDERED: MORP15TA PO (15:41)
[2016-08-18] MEDS ORDERED: TOPI200T14 PO (15:45)
[2016-08-18 15:46] LABS: HEMATOCRIT 40.9 % (37-47); MEAN CELL VOLUME 86.8 fL (80-100); MEAN CORPUSCULAR HEMOGLOBIN 29.7 pg (25-34); MEAN CORPUSCULAR HGB CONC 34.2 g/dl (32-36); MEAN PLATELET VOLUME 8.8 fL (7.4-10.4); PLATELET COUNT 384 K/uL (130-400); RED BLOOD COUNT 4.71 M/uL (4.2-5.4); WHITE BLOOD COUNT 11.61 K/uL (4.8-10.8)
[2016-08-18 15:47] LABS: ISTAT CREATININE 0.6 mg/dl (0.6-1.3); ISTAT IONIZED CALCIUM 1.18 mmol/l (1.12-1.32)
[2016-08-18] MEDS ORDERED: BUSP-8 PO (16:02)
[2016-08-18 16:05] LABS: ALT/SGPT 30 U/L (12-78); BLOOD UREA NITROGEN 15 mg/dl (7-18); BUN/CREATININE RATIO 18.9 (10-20); CALCIUM 9.2 mg/dl (8.5-10.1); CARBON DIOXIDE 20 mmol/L (21-32); CHLORIDE 107 mmol/L (98-107); CREATININE 0.79 mg/dl (0.60-1.20); GLUCOSE 80 mg/dl (70-99); POTASSIUM 3.4 mmol/L (3.5-5.1); SODIUM 140 mmol/L (136-145)
[2016-08-18 16:08] LABS: ALKALINE PHOSPHATASE 144 U/L (45-117); AST/SGOT 14 U/L (15-37)
--- NOTE | 2016-08-18 16:15 | DIAGNOSTIC IMAGING REPORT ---
CT SCAN OF THE ABDOMEN AND PELVIS WITH IV CONTRAST CLINICAL HISTORY: Right lower quadrant abdominal pain. COMPARISON STUDY: Abdominal CT dated 07/19/2016. TECHNIQUE: Following the IV administration of 92 cc of Optiray 320, CT scan of the abdomen and pelvis is performed from the lung bases to the proximal femora. Images are reviewed in the axial, sagittal, and coronal planes. IV contrast was administered without complication. The examination is degraded by large body habitus, and streak artifact from the body wall abutting the CT gantry. Automated dose control exposure was utilized. CT DOSE: 1077.42 mGycm FINDINGS: Lung bases: The heart is normal in size and without pericardial effusion. Linear scarring versus atelectasis is present in the lower lobes. The lung bases are otherwise clear. There is a tiny hiatal hernia. Liver: The contrast-enhanced liver is enlarged, measuring 19.2 cm in length. The liver demonstrates diffusely diminished attenuation consistent with hepatic steatosis. There is no intrahepatic biliary ductal dilatation. Gallbladder: Surgically absent noting clips in the gallbladder fossa. Spleen: Normal in size and attenuation. Pancreas: Unremarkable. Adrenal glands: Unremarkable. Kidneys: The contrast-enhanced kidneys are normal in size and without hydronephrosis. The kidneys enhance symmetrically. Abdominal vasculature: The abdominal aorta is normal in course and caliber. Bowel: The small bowel and colon are normal in course and caliber. The appendix is well-visualized and normal. Peritoneum: There is no intraperitoneal free air or abdominal ascites. Lymphadenopathy: None. Pelvic viscera: The bladder is normal as visualized. The uterus is surgically absent. No adnexal lesion is seen. Skeletal structures: There are postoperative changes from lumbar spinal fusion. A bone graft donor site is noted in the right ilium. There is minimal spondylotic change and scoliosis. No lytic or blastic lesions are seen. Postoperative change is identified in the posterior paraspinous soft tissues. IMPRESSION: 1. There are no acute infectious or inflammatory findings in the abdomen or pelvis. 2. Postoperative changes as above. 3. Hepatomegaly and hepatic steatosis. Electronically signed by: Derrell Uriarte M.D. 08/18/2016 4:14 PM Dictated Date/Time: 08/18/2016 4:08 PM
[2016-08-18 16:31] LABS: BASO % 0.3 %; BASO ABS # 0.04 K/uL (0-0.2); COMPLETE YES; EOS % 1.1 %; IG% 0.6 %; LYMPH % 17.8 %; LYMPH ABS # 2.07 K/uL (1.2-3.4); MONO % 6.7 %; NEUT % 73.5 %
[2016-08-18 16:34] LABS: URINE APPEARANCE CLEAR (CLEAR); URINE BILIRUBIN NEG (NEG); URINE COLOR YELLOW; URINE EPITHELIAL CELL AUTO 20-30 /lpf (0-5); URINE NITRITE NEG (NEG); URINE PH 6.5 (4.5-7.5); URINE SPECIFIC GRAVITY 1.024 (1.000-1.030); UROBILINOGEN NEG (NEG); ZZUR CULT IF INDIC CLEAN CATCH NO
[2016-08-18] MEDS ORDERED: KETOROLAC TROMETHAMINE 30 MG/ML VIAL IV STA (16:41)
[2016-08-18 16:45] LABS: MANUAL MICROSCOPIC REQUIRED? NO; REVIEW REQ? NO
--- NOTE | 2016-08-18 16:50 | EMERGENCY ROOM VISIT NOTE ---
History Report prepared by Alma: Medhat Arroyo Under the Supervision of: Dr. Nadir Fagan D.O. First contact with patient: 15:12 Chief Complaint: ABDOMINAL PAIN Stated Complaint: HERE TO ROLE OUT APPENDICITIS Nursing Triage Summary: Triage note: Pt reports right lower abd since last night. pt reports nausea and "i have diarrhea too." pt reports she was seen at [facility] and sent for further testing. pt reports "i didn't go to [facility] they won't see me i got thrown out of their er." History of Present Illness The patient is a 31 year old female who presents to the Emergency Room with complaints of persistent right lower quadrant abdominal paint that began yesterday, one day prior to arrival. She describes the pain as a "stabbing" sensation. The patient is also complaining of nausea and diarrhea. She had 6 bowel movements of diarrhea. No vomiting. She recently had a Pedraza catheter placed, but removed it herself yesterday due to pain. She is now passing her urine fine on her own. Patient denies headache, change in vision, fevers, chest pain, shortness of breath, diarrhea, pain with urination, and melena. Patient denies any vaginal bleeding or vaginal discharge. She notes that she is completely emptying her bladder at this point. No exacerbating or remitting factors of abdominal pain. 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 A total of 10 systems reviewed and were otherwise negative. Past Medical & Surgical Medical Problems: (1) Anxiety disorder (2) Asthma (3) Cerebral palsy (4) Depression (5) GERD (gastroesophageal reflux disease) (6) Hypertension (7) Insulin resistance (8) lysis of adhesions (9) MRSA (methicillin resistant Staphylococcus aureus) (10) Paralysis of both lower limbs (11) Suicidal ideations Surgical Problems: (1) H/O dilation and curettage (2) H/O shoulder surgery (3) History of hysterectomy (4) History of laminectomy (5) Hx of cholecystectomy (6) Hx of eye surgery (7) Hx of spinal fusion (8) S/P surgical manipulation of ankle joint Family History Diabetes mellitus FHx: gallbladder disease Hypertension Social History Smoking Status: Never Smoker Alcohol Use: none Drug Use: none Marital Status: single Housing Status: lives alone Occupation Status: employed, disabled Current/Historical Medications Scheduled Baclofen (Lioresal), 10 MG PO TID Buspirone Hcl (Buspirone Hcl), 10 MG PO TID Cetirizine (Zyrtec), 10 MG PO QAM Diazepam (Diazepam), 5 MG PO BID Duloxetine Hcl (Cymbalta), 60 MG PO QAM Duloxetine Hcl (Cymbalta), 20 MG PO QAM Esomeprazole Magnesium (Esomeprazole Magnesium), 40 MG PO DAILY Fluticasone-Salmeterol 115/21 Mcg (Advair Hfa 115/21 Mcg), 1 PUFF INH BID Lactobacillus-Inulin (Culturelle), 1 CAP PO QAM Lisinopril (Lisinopril), 10 MG PO DAILY Montelukast Sodium (Singulair), 10 MG PO HS Topiramate (Topamax), 200 MG PO BID Scheduled PRN Albuterol (Ventolin Hfa), 2 PUFFS INH QID PRN for SOB/Wheezing Morphine Sulfate Ir (Morphine Sulfate Ir), 15 MG PO BID PRN for Pain Ondasetron Odt (Zofran Odt), 4 MG SL Q6H PRN for Nausea Allergies Coded Allergies: Aztreonam (Verified Allergy, Severe, SHORTNESS OF BREATH, 08/13/16) Cephalosporins (Verified Allergy, Severe, SHORTNESS OF BREATH, 08/13/16) Linezolid (Verified Allergy, Severe, SHORTNESS OF BREATH, 08/13/16) Penicillins (Verified Allergy, Severe, SHORTNESS OF BREATH, 08/13/16) Sulfa Antibiotics (Verified Allergy, Severe, SHORTNESS OF BREATH, 08/13/16) TOLERATED TAMSULOSIN; REPORTS SOB WITH BACTRIM Fexofenadine (Verified Allergy, Intermediate, HIVES, 08/13/16) Oxycodone (Verified Allergy, Intermediate, HIVES-ABLE TO TAKE DILAUDID, 08/13/16) Latex (Verified Allergy, Mild, Itching, 08/15/16) Beta Adrenergic Blockers (Verified Allergy, Unknown, unknown, 08/13/16) Latex1 -Allergic Contact Dermititis (Verified Allergy, Unknown, RASH, ) Meperidine (Verified Allergy, Unknown, RESPIRATORY DISTRESS, 08/13/16) Neomycin (Verified Allergy, Unknown, 08/13/16) Propoxyphene (Verified Allergy, Unknown, UNKNOWN, 08/13/16) Quinolones (Verified Allergy, Unknown, QUINOLONES-SOB, CAN TAKE CIPRO W/O PROBLEM, 08/13/16) Pt denies cipro allergy. States she has taken in the past Tetracycline (Verified Allergy, Unknown, 08/13/16) Verapamil (Verified Allergy, Unknown, UNKNOWN, 08/13/16) Physical Exam Vital Signs Date Time Temp Pulse Resp B/P Pulse Ox O2 Delivery O2 Flow Rate FiO2 08/18/16 17:28 78 18 131/86 99 08/18/16 16:23 83 18 120/95 99 Room Air 08/18/16 14:39 37.0 95 18 116/74 99 Room Air Physical Exam GENERAL: Patient is sitting up in bed, well appearing, well nourished, no distress, non-toxic EYE EXAM: normal conjunctiva OROPHARYNX: no exudate, no erythema, lips, buccal mucosa, and tongue normal and mucous membranes are moist NECK: supple, no nuchal rigidity, no adenopathy, non-tender LUNGS: Clear to auscultation. Normal chest wall mechanics HEART: no murmurs, S1 normal and S2 normal ABDOMEN: NO pain when distracted. abdomen soft, non-tender, normo-active bowel sounds, no masses, no rebound or guarding. BACK: Back is symmetrical on inspection and there is no deformity, no midline tenderness, no CVA tenderness. SKIN: no rashes and no bruising UPPER EXTREMITIES: upper extremities are grossly normal. LOWER EXTREMITIES: No pitting edema. NEURO EXAM: Normal sensorium. No movement of lower extremities. Medical Decision & Procedures ER Provider Diagnostic Interpretation: Xray results per the radiologist and my interpretation. Other results have been interpreted by the radiologist and reviewed by me. CT SCAN OF THE ABDOMEN AND PELVIS WITH IV CONTRAST CLINICAL HISTORY: Right lower quadrant abdominal pain. COMPARISON STUDY: Abdominal CT dated 07/19/2016. TECHNIQUE: Following the IV administration of 92 cc of Optiray 320, CT scan of the abdomen and pelvis is performed from the lung bases to the proximal femora. Images are reviewed in the axial, sagittal, and coronal planes. IV contrast was administered without complication. The examination is degraded by large body habitus, and streak artifact from the body wall abutting the CT gantry. Automated dose control exposure was utilized. CT DOSE: 1077.42 mGycm FINDINGS: Lung bases: The heart is normal in size and without pericardial effusion. Linear scarring versus atelectasis is present in the lower lobes. The lung bases are otherwise clear. There is a tiny hiatal hernia. Liver: The contrast-enhanced liver is enlarged, measuring 19.2 cm in length. The liver demonstrates diffusely diminished attenuation consistent with hepatic steatosis. There is no intrahepatic biliary ductal dilatation. Gallbladder: Surgically absent noting clips in the gallbladder fossa. Spleen: Normal in size and attenuation. Pancreas: Unremarkable. Adrenal glands: Unremarkable. Kidneys: The contrast-enhanced kidneys are normal in size and without hydronephrosis. The kidneys enhance symmetrically. Abdominal vasculature: The abdominal aorta is normal in course and caliber. Bowel: The small bowel and colon are normal in course and caliber. The appendix is well-visualized and normal. Peritoneum: There is no intraperitoneal free air or abdominal ascites. Lymphadenopathy: None. Pelvic viscera: The bladder is normal as visualized. The uterus is surgically absent. No adnexal lesion is seen. Skeletal structures: There are postoperative changes from lumbar spinal fusion. A bone graft donor site is noted in the right ilium. There is minimal spondylotic change and scoliosis. No lytic or blastic lesions are seen. Postoperative change is identified in the posterior paraspinous soft tissues. IMPRESSION: 1. There are no acute infectious or inflammatory findings in the abdomen or pelvis. 2. Postoperative changes as above. 3. Hepatomegaly and hepatic steatosis. Electronically signed by: Derrell Uriarte M.D. 08/18/2016 4:14 PM Dictated Date/Time: 08/18/2016 4:08 PM Laboratory Results 08/18/16 15:30 Red Blood Count 4.71, Mean Corpuscular Volume 86.8, Mean Corpuscular Hemoglobin 29.7, Mean Corpuscular Hemoglobin Concent 34.2, Mean Platelet Volume 8.8, Neutrophils (%) (Auto) 73.5, Lymphocytes (%) (Auto) 17.8, Monocytes (%) (Auto) 6.7, Eosinophils (%) (Auto) 1.1, Basophils (%) (Auto) 0.3, Neutrophils # (Auto) 8.52, Lymphocytes # (Auto) 2.07, Monocytes # (Auto) 0.78, Eosinophils # (Auto) 0.13, Basophils # (Auto) 0.04 08/18/16 15:30 Test 08/18/16 15:19 08/18/16 15:30 08/18/16 15:37 08/18/16 16:10 Urine Test NEG (NEG) White Blood Count 11.61 K/uL (4.8-10.8) Red Blood Count 4.71 M/uL (4.2-5.4) Hemoglobin 14.0 g/dL (12.0-16.0) Hematocrit 40.9 % (37-47) Mean Corpuscular Volume 86.8 fL (80-100) Mean Corpuscular Hemoglobin 29.7 pg (25-34) Mean Corpuscular Hemoglobin Concent 34.2 g/dl (32-36) Platelet Count 384 K/uL (130-400) Mean Platelet Volume 8.8 fL (7.4-10.4) Neutrophils (%) (Auto) 73.5 % Lymphocytes (%) (Auto) 17.8 % Monocytes (%) (Auto) 6.7 % Eosinophils (%) (Auto) 1.1 % Basophils (%) (Auto) 0.3 % Neutrophils # (Auto) 8.52 K/uL (1.4-6.5) Lymphocytes # (Auto) 2.07 K/uL (1.2-3.4) Monocytes # (Auto) 0.78 K/uL (0.11-0.59) Eosinophils # (Auto) 0.13 K/uL (0-0.5) Basophils # (Auto) 0.04 K/uL (0-0.2) RDW Standard Deviation 46.9 fL (36.4-46.3) RDW Coefficient of Variation 14.6 % (11.5-14.5) Immature Granulocyte % (Auto) 0.6 % Immature Granulocyte # (Auto) 0.07 K/uL (0.00-0.02) Est Creatinine Clear Calc Drug Dose 117.2 ml/min Estimated GFR () 116.4 Estimated GFR (Non- 100.5 BUN/Creatinine Ratio 18.9 (10-20) Calcium Level 9.2 mg/dl (8.5-10.1) Total Bilirubin 0.2 mg/dl (0.2-1) Direct Bilirubin < 0.1 mg/dl (0-0.2) Aspartate Amino Transf (AST/SGOT) 14 U/L (15-37) Alanine Aminotransferase (ALT/SGPT) 30 U/L (12-78) Alkaline Phosphatase 144 U/L (45-117) Total Protein 8.1 gm/dl (6.4-8.2) Albumin 3.8 gm/dl (3.4-5.0) Lipase 187 U/L (73-393) Bedside Hemoglobin 15.0 g/dl (12.0-16.0) Bedside Hematocrit 44 % (37-47) Bedside Sodium 141 mEq/L (135-144) Bedside Potassium 3.5 mEq/L (3.3-5.0) Bedside Chloride 106 mEq/L (101-112) Bedside Total CO2 19 mEq/l (24-31) Anion Gap 20.0 mmol/L (16-25) Bedside Blood Urea Nitrogen 16 mg/dl (7-18) Bedside Creatinine 0.6 mg/dl (0.6-1.3) Bedside Glucose (other) 84 mg/dl (70-99) Bedside Ionized Calcium (Jessi) 1.18 mmol/l (1.12-1.32) Urine Color YELLOW Urine Appearance CLEAR (CLEAR) Urine pH 6.5 (4.5-7.5) Urine Specific [place] 1.024 (1.000-1.030) Urine Protein NEG (NEG) Urine Glucose (UA) NEG (NEG) Urine Ketones NEG (NEG) Urine Occult Blood NEG (NEG) Urine Nitrite NEG (NEG) Urine Bilirubin NEG (NEG) Urine Urobilinogen NEG (NEG) Urine Leukocyte Esterase SMALL (NEG) Urine WBC (Auto) 1-5 /hpf (0-5) Urine RBC (Auto) 0-4 /hpf (0-4) Urine Hyaline Casts (Auto) 0 /lpf (0-5) Urine Epithelial Cells (Auto) 20-30 /lpf (0-5) Urine Bacteria (Auto) NEG (NEG) Laboratory results per my review. Medications Administered Medications (Trade) Dose Ordered Sig/[place] Route Start Time Stop Time Status Last Admin Dose Admin Sodium Chloride (Nss 500ml) 500 ml @ 999 mls/hr Q31M STAT IV 08/18/16 15:19 08/18/16 15:49 DC 08/18/16 16:08 999 MLS/HR Ondansetron HCl (Zofran Inj) 4 mg NOW STAT IV 08/18/16 15:19 08/18/16 15:22 DC 08/18/16 16:08 4 MG Ketorolac Tromethamine (Toradol Inj) 30 mg NOW STAT IV 08/18/16 16:41 08/18/16 16:42 DC 08/18/16 16:49 30 MG ED Course ED COURSE: Vital signs were reviewed and showed Normal Vitals The patients medical record was reviewed The above diagnostic studies were performed and reviewed. ED treatments and interventions as stated above. 1513: The patient was evaluated in room C3. A complete history and physical examination was performed. 1519: Ordered Zofran 4 mg IV, Sodium Chloride 500 mL @ 999 mL/hr IV. 1638: I checked on the patient and updated her on her visit so far. 1641: Ordered Toradol 30 mg IV. 1648: The patient was bladder scanned for 106 mL at this time. 1729: Upon reevaluation, the patient is resting in bed.I discussed my findings with the patient and she understands and agrees with the treatment plan. Based on the patients age, coexisting illnesses, exam and lab findings the decision to treat as an outpatient was made. The patient remained stable while under my care. The patient appeared well at the time of discharge. Medical Decision Differential diagnosis: Etiologies such as appendicitis, diverticulitis, PUD, biliary pathology, UTI, pancreatitis, obstruction, mesenteric ischemia, aortic pathology, infections, inflammatory bowel disease, renal colic, as well as others were entertained. 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 She notes that this started yesterday at associated with diarrhea. She denies any vaginal bleeding or vaginal discharge. Abdominal exam is unremarkable and distracted. Vitals are unremarkable. Labs show a mild leukocytosis of 11.6 thousand. BMP shows a CO2 of 20 which I favor secondary to the diarrhea. LFTs along with bilirubin and lipase are negative. UA was negative. CT of the abdomen and pelvis was unremarkable. Patient was given fluids along with Toradol. She requested to see patient excellence as she was not given narcotics. She was not given narcotics per the request of her neurologist and her frequent visits which do lead me to believe that she is drug-seeking. She also had no acute reproducible muscle tenderness. Urine was negative. Discussed with Pt concerning signs and symptoms to watch out for. Pt was instructed to follow up with their PCP and discussed with the patient their option to return to the ED at anytime for persistent or worsening symptoms. The appropriate anticipatory guidance and out-patient management, including indications for return to the emergency department, were explained at length to the patient and understood. Impression Primary Impression: Right lower quadrant abdominal pain Additional Impression: Diarrhea Scribe Attestation The scribe's documentation has been prepared under my direction and personally reviewed by me in its entirety. I confirm that the note above accurately reflects all work, treatment, procedures, and medical decision making performed by me. Departure Information Dispostion Home / Self-Care Referrals No Doctor, Assigned (PCP) Forms HOME CARE DOCUMENTATION FORM, IMPORTANT VISIT INFORMATION Patient Instructions [facility] Additional Instructions Please follow up with your primary care doctor with in the next 24 hours. Any worsening of your symptoms, please return to the ED immediately. This includes fevers greater than 100.4, persistent nausea vomiting, unable to urinate, worsening pain, or any other concerning signs or symptoms from your standpoint. Please take Motrin or Tylenol as needed for your pain. Problem Qualifiers Additional Impression: Diarrhea Diarrhea type: unspecified type Qualified Codes: R19.7 - Diarrhea, unspecified
[2016-08-18] MEDS ORDERED: BACL10TA PO (17:06)
[2016-08-18 17:28] VITALS: BP 131/86; PULSE 78; O2SAT 99
[2016-08-18] MEDS ORDERED: MONT1TAB3 PO (22:14)
[2016-12-17] MEDS ORDERED: NXM/40 PO (06:51)
[2016-12-17] MEDS ORDERED: CETI10TA84 PO (13:34)
[2016-12-17] MEDS ORDERED: LISI-461 PO (13:47)
[2016-12-17] MEDS ORDERED: LACT10CA3 PO (14:30)
[2016-12-17] MEDS ORDERED: FLUT115A INH (14:31)
[2016-12-17] MEDS ORDERED: VLM5CL PO (15:11)
[2016-12-17] MEDS ORDERED: ONDA4TAB10 SL (15:11)
[2016-12-17] MEDS ORDERED: PRVHFAIN INH (15:57)
[2016-12-17] MEDS ORDERED: CMP/10 PO (17:09)
== END 2016-08-18 17:29 | disposition home or self-care (01) ==
LOC: C.EDB 14:35 → C.EDC 17:29
DX: R19.7 Diarrhea, unspecified (principal); F41.9 Anxiety disorder, unspecified; G80.9 Cerebral palsy, unspecified; F32.9 Major depressive disorder, single episode, unspecified; K21.9 Gastro-esophageal reflux disease without esophagitis; I10 Essential (primary) hypertension; Z90.49 Acquired absence of other specified parts of digestive tract; Z90.710 Acquired absence of both cervix and uterus; Z98.1 Arthrodesis status; Z83.3 Family history of diabetes mellitus; Z82.49 Family history of ischemic heart disease and other diseases of the circulatory system; Z79.899 Other long term (current) drug therapy

== ENCOUNTER 2016-10-17 06:06 | Emergency (ER) | payer OTHER ==
[~2016-10-17] VITALS: Ht 152.4 cm; Wt 114.0 kg
[~2016-10-17 06:06] MED LIST changes: +BACL10TA PO; +BUSP-8 PO; -DIAZ-165 PO; +ESOM1CAP34 PO; +MONT1TAB3 PO; +MORP15TA PO; -NXM/40 PO; -ONDA4TAB10 SL; +TOPI200T14 PO
[2016-10-17 06:12] VITALS: TEMP 36.6; Ht 152.4 cm; Wt 114.0 kg
[2016-10-17] MEDS ORDERED: PROCHLORPERAZINE 5 MG/ML 2 ML VIAL IV STA (06:37)
[2016-10-17] MEDS ORDERED: DiphenhydrAMINE HCL 50 MG/ML VIAL IV STA ×2 (06:37→08:10)
[2016-10-17] MEDS ORDERED: KETOROLAC TROMETHAMINE 30 MG/ML VIAL IV STA (06:37)
[2016-10-17] MEDS ORDERED: SODIUM CHLORIDE 0.9% 1000ML 1,000 ML IV STA (06:37)
[2016-10-17 06:44] VITALS: O2SAT 97
--- NOTE | 2016-10-17 06:45 | EMERGENCY ROOM VISIT NOTE ---
History Report prepared by Alma: Nasir Mahajan Under the Supervision of: Dr. Samson Zuniga M.D. First contact with patient: 06:24 Chief Complaint: ABDOMINAL PAIN Stated Complaint: ABD PAIN,MOORE,NAUSEA Nursing Triage Summary: patient reports abd pain, chest pain, moore, and nausea History of Present Illness The patient is a 31 year old female who presents to the Emergency Room with complaints of a headache that began 3 days ago. She rates her pain a 9/10 in severity. She has had headaches like this in the past, which she received lumbar punctures for. She states that she does not want to receive one, but her pain is worse than it has ever been. She is experiencing neck pain, abdominal pain, chest pain, and nausea as well. She denies any abnormal urinary symptoms. Source of History: patient Onset: 3 days ago Position: head Symptom Intensity: 9/10 Quality: ache Timing: constant Associated Symptoms: + abdominal pain, + chest pain, + nausea, + neck pain, No urinary symptoms Review of Systems See HPI for pertinent positives & negatives. A total of 10 systems reviewed and were otherwise negative. Past Medical & Surgical Medical Problems: (1) Anxiety disorder (2) Asthma (3) Cerebral palsy (4) Depression (5) GERD (gastroesophageal reflux disease) (6) Hypertension (7) Insulin resistance (8) lysis of adhesions (9) MRSA (methicillin resistant Staphylococcus aureus) (10) Paralysis of both lower limbs (11) Suicidal ideations Surgical Problems: (1) H/O dilation and curettage (2) H/O shoulder surgery (3) History of hysterectomy (4) History of laminectomy (5) Hx of cholecystectomy (6) Hx of eye surgery (7) Hx of spinal fusion (8) S/P surgical manipulation of ankle joint Family History Diabetes mellitus FHx: gallbladder disease Hypertension Social History Smoking Status: Never Smoker Alcohol Use: none Drug Use: none Marital Status: single Housing Status: lives alone Occupation Status: employed, disabled Current/Historical Medications Scheduled Baclofen (Lioresal), 10 MG PO TID Buspirone Hcl (Buspirone Hcl), 10 MG PO TID Cetirizine (Zyrtec), 10 MG PO QAM Diazepam (Diazepam), 5 MG PO BID Duloxetine Hcl (Cymbalta), 60 MG PO QAM Duloxetine Hcl (Cymbalta), 30 MG PO QPM Esomeprazole Magnesium (Nexium), 40 MG PO QAM Fluticasone-Salmeterol 115/21 Mcg (Advair Hfa 115/21 Mcg), 1 PUFF INH BID Lactobacillus-Inulin (Culturelle), 1 CAP PO QAM Lisinopril (Lisinopril), 10 MG PO DAILY Montelukast Sodium (Singulair), 10 MG PO HS Topiramate (Topamax), 200 MG PO BID Scheduled PRN Albuterol (Ventolin Hfa), 2 PUFFS INH QID PRN for SOB/Wheezing Hydroxyzine Pamoate (Vistaril), 25 MG PO DAILY PRN for Anxiety Morphine Sulfate Ir (Morphine Sulfate Ir), 15 MG PO BID PRN for Pain Ondasetron Odt (Zofran Odt), 4 MG SL Q6H PRN for Nausea Allergies Coded Allergies: Aztreonam (Verified Allergy, Severe, SHORTNESS OF BREATH, 10/17/16) Cephalosporins (Verified Allergy, Severe, SHORTNESS OF BREATH, 10/17/16) Linezolid (Verified Allergy, Severe, SHORTNESS OF BREATH, 10/17/16) Penicillins (Verified Allergy, Severe, SHORTNESS OF BREATH, 10/17/16) Sulfa Antibiotics (Verified Allergy, Severe, SHORTNESS OF BREATH, 10/17/16) TOLERATED TAMSULOSIN; REPORTS SOB WITH BACTRIM Fexofenadine (Verified Allergy, Intermediate, HIVES, 10/17/16) Oxycodone (Verified Allergy, Intermediate, HIVES-ABLE TO TAKE DILAUDID, 10/17/16) Latex (Verified Allergy, Mild, Itching, 10/17/16) Beta Adrenergic Blockers (Verified Allergy, Unknown, unknown, 10/17/16) Latex1 -Allergic Contact Dermititis (Verified Allergy, Unknown, RASH, ) Meperidine (Verified Allergy, Unknown, RESPIRATORY DISTRESS, 10/17/16) Neomycin (Verified Allergy, Unknown, 10/17/16) Propoxyphene (Verified Allergy, Unknown, UNKNOWN, 10/17/16) Quinolones (Verified Allergy, Unknown, QUINOLONES-SOB, CAN TAKE CIPRO W/O PROBLEM, 10/17/16) Pt denies cipro allergy. States she has taken in the past Tetracycline (Verified Allergy, Unknown, 10/17/16) Verapamil (Verified Allergy, Unknown, UNKNOWN, 10/17/16) Physical Exam Vital Signs Date Time Temp Pulse Resp B/P Pulse Ox O2 Delivery O2 Flow Rate FiO2 10/17/16 08:55 80 10/17/16 08:00 80 16 111/64 10/17/16 07:17 115 20 126/82 10/17/16 06:44 97 Room Air 10/17/16 06:44 97 Room Air 10/17/16 06:37 96 10/17/16 06:12 36.6 107 16 124/72 99 Room Air Physical Exam GENERAL: Patient is a healthy-appearing well-nourished HEAD: Normocephalic atraumatic EYES: Ocular movements intact pupils equal and react to light OROPHARYNX mucous membranes are moist no exudates present no erythema or edema present NECK: Supple no nuchal rigidity. No evidence of meningitis or encephalitis on exam. CHEST: Good equal expansion LUNGS: Clear and equal to auscultation CARDIAC: Normal S1 and S2 ABDOMEN: Soft nontender no guarding BACK: No CVA tenderness EXTREMITIES: No pain upon palpation normal muscle strength in all groups no clubbing cyanosis or edema NEURO: Patient is following commands is answering questions appropriately. Alert and oriented x3 Cranial Nerves 2-12 grossly intact Medical Decision & Procedures ER Provider Diagnostic Interpretation: Radiology results as stated below per my review and radiologist interpretation: CHEST ONE VIEW PORTABLE CLINICAL HISTORY: Atypical chest pain COMPARISON STUDY: 08/15/2016 FINDINGS: The cardiac and mediastinal contours are normal. There is no evidence of focal pulmonary consolidation. There is no evidence of failure. No pleural effusions are visualized.[ There is mild right perihilar atelectasis/scarring IMPRESSION: No active disease in the chest. Electronically signed by: Jeff Oro M.D. 10/17/2016 7:13 AM Dictated Date/Time: 10/17/2016 7:13 AM Laboratory Results 10/17/16 06:55 Red Blood Count 4.27, Mean Corpuscular Volume 88.1, Mean Corpuscular Hemoglobin 30.2, Mean Corpuscular Hemoglobin Concent 34.3, Mean Platelet Volume 9.0, Neutrophils (%) (Auto) 69.0, Lymphocytes (%) (Auto) 20.3, Monocytes (%) (Auto) 6.3, Eosinophils (%) (Auto) 3.6, Basophils (%) (Auto) 0.4, Neutrophils # (Auto) 5.32, Lymphocytes # (Auto) 1.57, Monocytes # (Auto) 0.49, Eosinophils # (Auto) 0.28, Basophils # (Auto) 0.03 10/17/16 06:55 Test 10/17/16 06:55 White Blood Count 7.72 K/uL (4.8-10.8) Red Blood Count 4.27 M/uL (4.2-5.4) Hemoglobin 12.9 g/dL (12.0-16.0) Hematocrit 37.6 % (37-47) Mean Corpuscular Volume 88.1 fL (80-100) Mean Corpuscular Hemoglobin 30.2 pg (25-34) Mean Corpuscular Hemoglobin Concent 34.3 g/dl (32-36) Platelet Count 273 K/uL (130-400) Mean Platelet Volume 9.0 fL (7.4-10.4) Neutrophils (%) (Auto) 69.0 % Lymphocytes (%) (Auto) 20.3 % Monocytes (%) (Auto) 6.3 % Eosinophils (%) (Auto) 3.6 % Basophils (%) (Auto) 0.4 % Neutrophils # (Auto) 5.32 K/uL (1.4-6.5) Lymphocytes # (Auto) 1.57 K/uL (1.2-3.4) Monocytes # (Auto) 0.49 K/uL (0.11-0.59) Eosinophils # (Auto) 0.28 K/uL (0-0.5) Basophils # (Auto) 0.03 K/uL (0-0.2) RDW Standard Deviation 45.2 fL (36.4-46.3) RDW Coefficient of Variation 14.1 % (11.5-14.5) Immature Granulocyte % (Auto) 0.4 % Immature Granulocyte # (Auto) 0.03 K/uL (0.00-0.02) Anion Gap 9.0 mmol/L (3-11) Est Creatinine Clear Calc Drug Dose 119.8 ml/min Estimated GFR () 116.4 Estimated GFR (Non- 100.5 BUN/Creatinine Ratio 23.4 (10-20) Calcium Level 8.9 mg/dl (8.5-10.1) Total Bilirubin 0.2 mg/dl (0.2-1) Direct Bilirubin < 0.1 mg/dl (0-0.2) Aspartate Amino Transf (AST/SGOT) 12 U/L (15-37) Alanine Aminotransferase (ALT/SGPT) 22 U/L (12-78) Alkaline Phosphatase 152 U/L (45-117) Total Creatine Kinase 52 U/L (26-192) Creatine Kinase MB < 0.5 ng/ml (0.5-3.6) Creatine Kinase MB Ratio (0-3.0) Troponin I < 0.015 ng/ml (0-0.045) Total Protein 7.3 gm/dl (6.4-8.2) Albumin 3.5 gm/dl (3.4-5.0) Lipase 192 U/L (73-393) Labs reviewed by ED physician. Medications Administered Medications (Trade) Dose Ordered Sig/[place] Route Start Time Stop Time Status Last Admin Dose Admin Sodium Chloride (Nss 1000ml) 1,000 ml @ 999 mls/hr Q1H1M STAT IV 10/17/16 06:37 10/17/16 07:37 DC 10/17/16 07:14 999 MLS/HR Prochlorperazine Edisylate (Compazine Inj) 10 mg NOW STAT IV 10/17/16 06:37 10/17/16 06:40 DC 10/17/16 07:14 10 MG Diphenhydramine HCl (Benadryl Inj) 50 mg NOW STAT IV 10/17/16 06:37 10/17/16 06:40 DC 10/17/16 07:13 50 MG Ketorolac Tromethamine (Toradol Inj) 30 mg NOW STAT IV 10/17/16 06:37 10/17/16 06:40 DC 10/17/16 07:14 30 MG Dexamethasone Sodium Phosphate (Decadron Inj) 10 mg NOW ONCE IV 10/17/16 07:45 10/17/16 07:46 DC 10/17/16 07:57 10 MG Magnesium Sulfate (Magnesium Sulfate) 1 gm NOW STAT IV 10/17/16 07:31 10/17/16 07:32 DC 10/17/16 07:58 1 GM Dicyclomine HCl (Bentyl Inj) 20 mg NOW STAT IM 10/17/16 07:31 10/17/16 07:32 DC 10/17/16 07:57 20 MG Diphenhydramine HCl (Benadryl Inj) 50 mg NOW STAT IV 10/17/16 08:10 10/17/16 08:11 DC 10/17/16 08:37 50 MG ECG Indication: chest pain Rate (beats per minute): 87 Rhythm: normal sinus Findings: no acute ischemic change, no ectopy ED Course 0624: Past medical records reviewed. The patient was evaluated in room B8. A complete history and physical examination was performed. 0637: Ordered Toradol Inj 30 mg IV, Benadryl Inj 50 mg IV, Compazine Inj 10 mg IV, Sodium Chloride 1000 ml @ 999 mls/hr IV 0731: Ordered Bentyl Inj 20 mg IM, Magnesium Sulfate 1 mg IV 0745: Ordered Decadron Inj 10 mg IV 0810: Ordered Ranitidine HCl 50 mg IV, Diphenhydramine 50 mg IV 0910: Upon reexamination the patient is resting. I discussed results and treatment plan with the patient. She verbalizes agreement and understanding. The patient is ready for discharge. Medical Decision Differential diagnosis: Etiologies such as migraine headache, meningitis, sinusitis, CO exposure, ICH, SAH, infection, tumor, headache, sinus thrombosis, arterial dissection, as well as others were entertained. This is a 31-year-old female who is on the no narcotics treatment plan who is from the [facility] presents to the emergency department complaining of multiple complaints. The patient is complaining of headache, chest pain, abdominal pain. Serial abdominal examinations were performed on the patient in the emergency department and at no time did the patient exhibit abdominal tenderness or even a surgical abdomen. She has a normal EKG she has normal CK- MB and troponin she also has a normal CBC with no evidence of white blood cell count. The patient is allergic to a large amount of medications however an IV was established she was given normal saline bolus. The patient is more concerned about her headache. I gave my customary talk about meningitis and the use of a lumbar puncture to rule out meningitis. The patient is refusing a lumbar puncture at this time however she was encouraged to return to the emergency department if her symptoms worsened. She was given normal saline bolus, Toradol, Compazine, Benadryl. Repeat exam revealed improvement patient' s symptoms. She was also given Decadron as well as magnesium. She was given further Benadryl as well as Zantac as she is complaining of itchiness after the Decadron. The patient will be referred to neurology for continued headache pain. Patient was in agreement with the treatment plan. Impression Primary Impression: Abdominal pain Additional Impressions: Headache Chest pain Scribe Attestation The scribe's documentation has been prepared under my direction and personally reviewed by me in its entirety. I confirm that the note above accurately reflects all work, treatment, procedures, and medical decision making performed by me. Departure Information Dispostion Home / Self-Care Referrals Maureen Bowie M.D. Forms Call Back Authorization, HOME CARE DOCUMENTATION FORM, IMPORTANT VISIT INFORMATION, School Instructions, Work Instructions Patient Instructions Headache Migraine Meds Lifestyle, Headache Migraine Triggers Prevent, Headache Pain, My [facility] Additional Instructions Follow up with Dr Bowie's office You have been examined and treated today on an emergency basis only. This is not a substitute for, or an effort to provide, complete comprehensive medical care. It is impossible to recognize and treat all injuries or illnesses in a single emergency department visit. It is therefore important that you follow up closely with your PCP. Call as soon as possible for an appointment. Thank you for your time and consideration. I look forward to speaking with you again soon. Please don't hesitate to call us if you have any questions. Problem Qualifiers Primary Impression: Abdominal pain Abdominal location: generalized Qualified Codes: R10.84 - Generalized abdominal pain Additional Impressions: Headache Headache type: unspecified Headache chronicity pattern: unspecified pattern Intractability: not intractable Qualified Codes: R51 - Headache Chest pain Chest pain type: precordial pain Qualified Codes: R07.2 - Precordial pain
[2016-10-17] MEDS ORDERED: CYM/30 PO (06:51)
[2016-10-17] MEDS ORDERED: HYDR25CA PO (06:51)
[2016-10-17 07:04] LABS: BASO % 0.4 %; BASO ABS # 0.03 K/uL (0-0.2); COMPLETE YES; EOS % 3.6 %; HEMATOCRIT 37.6 % (37-47); IG% 0.4 %; LYMPH % 20.3 %; LYMPH ABS # 1.57 K/uL (1.2-3.4); MEAN CELL VOLUME 88.1 fL (80-100); MEAN CORPUSCULAR HEMOGLOBIN 30.2 pg (25-34); MEAN CORPUSCULAR HGB CONC 34.3 g/dl (32-36); MONO % 6.3 %; PLATELET COUNT 273 K/uL (130-400); RED BLOOD COUNT 4.27 M/uL (4.2-5.4); WHITE BLOOD COUNT 7.72 K/uL (4.8-10.8)
--- NOTE | 2016-10-17 07:15 | DIAGNOSTIC IMAGING REPORT ---
CHEST ONE VIEW PORTABLE CLINICAL HISTORY: Atypical chest pain COMPARISON STUDY: 08/15/2016 FINDINGS: The cardiac and mediastinal contours are normal. There is no evidence of focal pulmonary consolidation. There is no evidence of failure. No pleural effusions are visualized.[ There is mild right perihilar atelectasis/scarring IMPRESSION: No active disease in the chest. Electronically signed by: Jeff Oro M.D. 10/17/2016 7:13 AM Dictated Date/Time: 10/17/2016 7:13 AM
[2016-10-17 07:21] LABS: ALT/SGPT 22 U/L (12-78); AST/SGOT 12 U/L (15-37); BLOOD UREA NITROGEN 18 mg/dl (7-18); BUN/CREATININE RATIO 23.4 (10-20); CALCIUM 8.9 mg/dl (8.5-10.1); CARBON DIOXIDE 24 mmol/L (21-32); CHLORIDE 111 mmol/L (98-107); CREATININE 0.79 mg/dl (0.60-1.20); GLUCOSE 87 mg/dl (70-99); POTASSIUM 3.9 mmol/L (3.5-5.1); SODIUM 144 mmol/L (136-145)
[2016-10-17 07:26] LABS: ALKALINE PHOSPHATASE 152 U/L (45-117)
[2016-10-17] MEDS ORDERED: DICYCLOMINE HCL 10 MG/ML 2 ML AMP IM STA (07:31)
[2016-10-17] MEDS ORDERED: MAGNESIUM SULFATE 1GM / D5W 1 GM BAG IV STA (07:31)
[2016-10-17] MEDS ORDERED: DEXAMETHASONE SOD INJ 10 MG/ML VIAL IV ONE (07:45)
[2016-10-17] MEDS ORDERED: RANITIDINE HCL 50 MG/100 ML D5W IV STA (08:10)
[2016-10-17 09:13] VITALS: BP 107/62; PULSE 78; O2SAT 95
[2016-12-17] MEDS ORDERED: LACT10CA3 PO (14:30)
[2017-04-10] MEDS ORDERED: NXM/40 PO (06:51)
[2017-04-10] MEDS ORDERED: CETI10TA84 PO (13:34)
[2017-04-10] MEDS ORDERED: LISI-461 PO (13:47)
[2017-04-10] MEDS ORDERED: FLUT115A INH (14:31)
[2017-04-10] MEDS ORDERED: ONDA4TAB10 SL (15:11)
[2017-04-10] MEDS ORDERED: VLM5CL PO (15:11)
[2017-04-10] MEDS ORDERED: PRAZ2CAP2 PO (15:46)
[2017-04-10] MEDS ORDERED: PRVHFAIN INH (15:57)
[2017-04-10] MEDS ORDERED: ZLF50 PO (15:57)
[2017-04-10] MEDS ORDERED: CYM30 PO (16:45)
[2017-04-10] MEDS ORDERED: CMP/10 PO (17:09)
[2017-04-10] MEDS ORDERED: TOPI200T20 PO (19:08)
[2017-04-10] MEDS ORDERED: SNG10 PO (19:08)
[2017-04-10] MEDS ORDERED: BACL1TAB PO (19:08)
[2017-04-10] MEDS ORDERED: HYDR-3126 PO (19:08)
[2017-04-10] MEDS ORDERED: CYM60 PO (19:08)
[2017-04-10] MEDS ORDERED: BSP/10 PO (19:08)
== END 2016-10-17 09:14 | disposition home or self-care (01) ==
LOC: C.EDB 06:07
DX: R51 Headache (principal); R10.84 Generalized abdominal pain; R07.2 Precordial pain; F41.9 Anxiety disorder, unspecified; J45.909 Unspecified asthma, uncomplicated; G80.9 Cerebral palsy, unspecified; F32.9 Major depressive disorder, single episode, unspecified; K21.9 Gastro-esophageal reflux disease without esophagitis; I10 Essential (primary) hypertension; Z90.710 Acquired absence of both cervix and uterus; Z90.49 Acquired absence of other specified parts of digestive tract; Z98.1 Arthrodesis status; Z83.3 Family history of diabetes mellitus; Z82.49 Family history of ischemic heart disease and other diseases of the circulatory system; Z79.899 Other long term (current) drug therapy

== ENCOUNTER 2016-12-03 14:51 | Emergency (ER) | payer OTHER ==
[~2016-12-03] VITALS: Ht 152.4 cm; Wt 115.0 kg
[~2016-12-03 14:51] MED LIST changes: +CYM/30 PO; -DULO-24 PO; -ESOM1CAP34 PO; +HYDR25CA PO
[2016-12-03 14:59] VITALS: TEMP 36.7; Ht 152.4 cm; Wt 115.0 kg
[2016-12-03 17:00] VITALS: O2SAT 95
--- NOTE | 2016-12-03 17:24 | EMERGENCY ROOM VISIT NOTE ---
History Report prepared by Alma: Kirsten Lopez Under the Supervision of: Dr. Samson Zuniga M.D. First contact with patient: 17:18 Chief Complaint: CHEST PAIN Stated Complaint: CHEST PAIN, STOMACH PAIN, MOORE Nursing Triage Summary: abd pain since last night, L sided cp for 2 hours History of Present Illness The patient is a 31 year old female who presents to the Emergency Room with complaints of constant left sided chest pain beginning 2 hours prior to arrival. The patient also noted abdominal pain that began yesterday. She notes the abdominal pain is on both sides her of abdomen. The patient is nauseated. She denies vomiting. She has normal bowel movements and denies decreased appetite. The patient has had her gall bladder removed. She still has her appendix. 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 A total of 10 systems reviewed and were otherwise negative. Past Medical & Surgical Medical Problems: (1) Anxiety disorder (2) Asthma (3) Cerebral palsy (4) Depression (5) GERD (gastroesophageal reflux disease) (6) Hypertension (7) Insulin resistance (8) lysis of adhesions (9) MRSA (methicillin resistant Staphylococcus aureus) (10) Paralysis of both lower limbs (11) Suicidal ideations Surgical Problems: (1) H/O dilation and curettage (2) H/O shoulder surgery (3) History of hysterectomy (4) History of laminectomy (5) Hx of cholecystectomy (6) Hx of eye surgery (7) Hx of spinal fusion (8) S/P surgical manipulation of ankle joint Family History Diabetes mellitus FHx: gallbladder disease Hypertension Social History Smoking Status: Never Smoker Alcohol Use: none Drug Use: none Marital Status: single Housing Status: lives alone Occupation Status: employed, disabled Current/Historical Medications Scheduled Baclofen (Lioresal), 10 MG PO TID Buspirone Hcl (Buspirone Hcl), 10 MG PO TID Cetirizine (Zyrtec), 10 MG PO QAM Diazepam (Diazepam), 5 MG PO BID Duloxetine Hcl (Cymbalta), 60 MG PO QAM Duloxetine Hcl (Cymbalta), 30 MG PO QPM Esomeprazole Magnesium (Nexium), 40 MG PO QAM Fluticasone-Salmeterol 115/21 Mcg (Advair Hfa 115/21 Mcg), 1 PUFF INH BID Lactobacillus-Inulin (Culturelle), 1 CAP PO QAM Lisinopril (Lisinopril), 10 MG PO DAILY Montelukast Sodium (Singulair), 10 MG PO HS Topiramate (Topamax), 200 MG PO BID Scheduled PRN Albuterol (Ventolin Hfa), 2 PUFFS INH QID PRN for SOB/Wheezing Hydroxyzine Pamoate (Vistaril), 25 MG PO DAILY PRN for Anxiety Morphine Sulfate Ir (Morphine Sulfate Ir), 15 MG PO BID PRN for Pain Ondasetron Odt (Zofran Odt), 4 MG SL Q6H PRN for Nausea Prochlorperazine Maleate (Prochlorperazine Maleate), 10 MG PO Q8 PRN for Nausea Allergies Coded Allergies: Aztreonam (Verified Allergy, Severe, SHORTNESS OF BREATH, 10/17/16) Cephalosporins (Verified Allergy, Severe, SHORTNESS OF BREATH, 10/17/16) Linezolid (Verified Allergy, Severe, SHORTNESS OF BREATH, 10/17/16) Penicillins (Verified Allergy, Severe, SHORTNESS OF BREATH, 10/17/16) Sulfa Antibiotics (Verified Allergy, Severe, SHORTNESS OF BREATH, 10/17/16) TOLERATED TAMSULOSIN; REPORTS SOB WITH BACTRIM Fexofenadine (Verified Allergy, Intermediate, HIVES, 10/17/16) Oxycodone (Verified Allergy, Intermediate, HIVES-ABLE TO TAKE DILAUDID, 10/17/16) Latex (Verified Allergy, Mild, Itching, 10/17/16) Beta Adrenergic Blockers (Verified Allergy, Unknown, unknown, 10/17/16) Latex1 -Allergic Contact Dermititis (Verified Allergy, Unknown, RASH, ) Meperidine (Verified Allergy, Unknown, RESPIRATORY DISTRESS, 10/17/16) Neomycin (Verified Allergy, Unknown, 10/17/16) Propoxyphene (Verified Allergy, Unknown, UNKNOWN, 10/17/16) Quinolones (Verified Allergy, Unknown, QUINOLONES-SOB, CAN TAKE CIPRO W/O PROBLEM, 10/17/16) Pt denies cipro allergy. States she has taken in the past Tetracycline (Verified Allergy, Unknown, 10/17/16) Verapamil (Verified Allergy, Unknown, UNKNOWN, 10/17/16) Physical Exam Vital Signs Date Time Temp Pulse Resp B/P (MAP) Pulse Ox O2 Delivery O2 Flow Rate FiO2 12/03/16 21:05 85 138/78 97 12/03/16 21:02 118/75 12/03/16 20:51 85 17 12/03/16 20:38 142/81 12/03/16 20:38 70 20 142/81 95 Room Air 12/03/16 20:06 94 20 97 12/03/16 19:51 81 15 100 12/03/16 19:36 84 18 98 12/03/16 19:21 88 19 97 12/03/16 19:06 116 19 12/03/16 18:51 98 16 12/03/16 18:36 87 18 12/03/16 18:21 99 21 12/03/16 18:06 85 15 12/03/16 17:51 73 23 12/03/16 17:36 96 22 12/03/16 17:21 90 20 99 12/03/16 17:21 88 12/03/16 17:19 95 Room Air 12/03/16 17:15 156/90 12/03/16 17:00 95 Room Air 12/03/16 17:00 106 20 118/78 97 Room Air 12/03/16 15:08 100 Room Air 12/03/16 14:59 36.7 107 18 124/91 100 Room Air Physical Exam GENERAL: Patient is a healthy-appearing well-nourished female HEAD: Normocephalic atraumatic EYES: Ocular movements intact pupils equal and react to light OROPHARYNX mucous membranes are moist no exudates present no erythema or edema present NECK: Supple no nuchal rigidity CHEST: Good equal expansion LUNGS: Clear and equal to auscultation CARDIAC: Normal S1 and S2 ABDOMEN: Soft nontender no guarding BACK: No CVA tenderness EXTREMITIES: No pain upon palpation normal muscle strength in all groups no clubbing cyanosis or edema NEURO: Patient is following commands and answering questions appropriately. Alert and oriented x3 Cranial Nerves 2-12 grossly intact Medical Decision & Procedures ER Provider Diagnostic Interpretation: X-ray results as stated below per interpretation by me and the radiologist: ABDOMEN 2VIEW W/PA CHEST RTN CLINICAL HISTORY: Pt c/o chest, abd pain pain COMPARISON STUDY: No previous studies for comparison. FINDINGS: The soft tissues, psoas shadows, renal outlines and intestinal gas pattern appear normal. There is no evidence for bowel obstruction. There is no evidence for free intraperitoneal air. No abnormal abdominal calcifications are seen. A frontal view of the chest was performed and is unremarkable. IMPRESSION: Normal study. Electronically signed by: Lawrence Roberts M.D. 12/03/2016 8:50 PM Dictated Date/Time: 12/03/2016 8:49 PM Laboratory Results 12/03/16 19:20 Red Blood Count 4.58, Mean Corpuscular Volume 86.0, Mean Corpuscular Hemoglobin 29.5, Mean Corpuscular Hemoglobin Concent 34.3, Mean Platelet Volume 9.4, Neutrophils (%) (Auto) 62.4, Lymphocytes (%) (Auto) 27.5, Monocytes (%) (Auto) 7.6, Eosinophils (%) (Auto) 1.1, Basophils (%) (Auto) 0.5, Neutrophils # (Auto) 5.70, Lymphocytes # (Auto) 2.51, Monocytes # (Auto) 0.69, Eosinophils # (Auto) 0.10, Basophils # (Auto) 0.05 12/03/16 19:20 Test 12/03/16 19:20 White Blood Count 9.13 K/uL (4.8-10.8) Red Blood Count 4.58 M/uL (4.2-5.4) Hemoglobin 13.5 g/dL (12.0-16.0) Hematocrit 39.4 % (37-47) Mean Corpuscular Volume 86.0 fL (80-100) Mean Corpuscular Hemoglobin 29.5 pg (25-34) Mean Corpuscular Hemoglobin Concent 34.3 g/dl (32-36) Platelet Count 295 K/uL (130-400) Mean Platelet Volume 9.4 fL (7.4-10.4) Neutrophils (%) (Auto) 62.4 % Lymphocytes (%) (Auto) 27.5 % Monocytes (%) (Auto) 7.6 % Eosinophils (%) (Auto) 1.1 % Basophils (%) (Auto) 0.5 % Neutrophils # (Auto) 5.70 K/uL (1.4-6.5) Lymphocytes # (Auto) 2.51 K/uL (1.2-3.4) Monocytes # (Auto) 0.69 K/uL (0.11-0.59) Eosinophils # (Auto) 0.10 K/uL (0-0.5) Basophils # (Auto) 0.05 K/uL (0-0.2) RDW Standard Deviation 45.6 fL (36.4-46.3) RDW Coefficient of Variation 14.5 % (11.5-14.5) Immature Granulocyte % (Auto) 0.9 % Immature Granulocyte # (Auto) 0.08 K/uL (0.00-0.02) Anion Gap 12.0 mmol/L (3-11) Est Creatinine Clear Calc Drug Dose 112.0 ml/min Estimated GFR () 106.6 Estimated GFR (Non- 91.9 BUN/Creatinine Ratio 23.1 (10-20) Calcium Level 9.0 mg/dl (8.5-10.1) Total Bilirubin 0.2 mg/dl (0.2-1) Direct Bilirubin < 0.1 mg/dl (0-0.2) Aspartate Amino Transf (AST/SGOT) 12 U/L (15-37) Alanine Aminotransferase (ALT/SGPT) 26 U/L (12-78) Alkaline Phosphatase 107 U/L (45-117) Total Creatine Kinase 34 U/L (26-192) Creatine Kinase MB < 0.5 ng/ml (0.5-3.6) Creatine Kinase MB Ratio (0-3.0) Troponin I < 0.015 ng/ml (0-0.045) Total Protein 7.2 gm/dl (6.4-8.2) Albumin 3.7 gm/dl (3.4-5.0) Lipase 178 U/L (73-393) Labs reviewed by ED physician. Medications Administered Medications (Trade) Dose Ordered Sig/[place] Route Start Time Stop Time Status Last Admin Dose Admin Ketorolac Tromethamine (Toradol Inj) 30 mg NOW STAT IV 12/03/16 17:26 12/03/16 17:28 DC 12/03/16 18:51 30 MG Prochlorperazine Edisylate (Compazine Inj) 10 mg NOW STAT IV 12/03/16 17:26 12/03/16 17:28 DC 12/03/16 18:51 10 MG Diphenhydramine HCl (Benadryl Inj) 50 mg NOW STAT IV 12/03/16 17:26 12/03/16 17:28 DC 12/03/16 18:50 50 MG Diphenhydramine HCl (Benadryl Inj) 25 mg NOW STAT IV 12/03/16 19:59 12/03/16 20:00 DC 12/03/16 20:04 25 MG ECG Indication: abdominal pain, chest pain Rate (beats per minute): 106 Rhythm: sinus tachycardia Findings: no acute ischemic change, no ectopy ED Course 1719: Past medical records reviewed. The patient was evaluated in room C8. A complete history and physical examination was performed. 1725: Benadryl Inj 50 mg IV, Compazine Inj 10 mg IV, Toradol Inj 30 mg IV. 1958: Benadryl Inj 25 mg IV. 2119: The patient left against medical advice due to her ride being here. Medical Decision Differential diagnosis: Etiologies such as appendicitis, diverticulitis, PUD, biliary pathology, UTI, pancreatitis, obstruction, mesenteric ischemia, aortic pathology, infections, inflammatory bowel disease, renal colic, as well as others were entertained. Medication Reconciliation: I attest that I have personally reviewed the patient' s current medication list. This is a 31-year-old female who presents emergency Department with multiple complaints including chest pain and abdominal pain. I will note that the patient is on the no narcotics treatment plan. An IV was established, the patient was given Toradol, Compazine, Benadryl. Repeat examination revealed much improvement the patient's symptoms. The patient decided she wishes to leave AGAINST MEDICAL ADVICE before her laboratory work and x-rays were back. The patient has demonstrated no significant defect in the decision-making capacity to make choices. The encounter had a good level of communication with language the patient can easily understand. I feel trust was present and conveyed that our action/intentions were the best interest of the patient. The patient was given all relevant information and reiterated the explained risks and benefits. The patient explained the reasoning for refusing treatment clearly. The patient possesses and expresses a set of values and goals, the ability to communicate and understand, and an ability to reason and deliberate. Despite acting emphatically, attentively and with the utmost patient's the patient declined further treatment. I offered options, negotiated, and explored every reasonable choice. I must respect the patient's autonomy and that they feel that their choices are best for them despite the associated risks of leaving without completing the evaluation. The patient was informed about the findings as listed above. All questions were answered and he was pleased with the treatment. Return instructions were outlined and the patient was discharged in stable condition. Impression Primary Impression: Chest wall pain Additional Impression: Abdominal pain Scribe Attestation The scribe's documentation has been prepared under my direction and personally reviewed by me in its entirety. I confirm that the note above accurately reflects all work, treatment, procedures, and medical decision making performed by me. Departure Information Dispostion Against Medical Advice Referrals No Doctor, Assigned (PCP) Patient Instructions My [facility] Problem Qualifiers Additional Impression: Abdominal pain Abdominal location: generalized Qualified Codes: R10.84 - Generalized abdominal pain
[2016-12-03] MEDS ORDERED: PROCHLORPERAZINE 5 MG/ML 2 ML VIAL IV STA (17:26)
[2016-12-03] MEDS ORDERED: KETOROLAC TROMETHAMINE 30 MG/ML VIAL IV STA (17:26)
[2016-12-03] MEDS ORDERED: DiphenhydrAMINE HCL 50 MG/ML VIAL IV STA ×2 (17:26→19:59)
[2016-12-03 19:37] LABS: BASO % 0.5 %; BASO ABS # 0.05 K/uL (0-0.2); COMPLETE YES; EOS % 1.1 %; HEMATOCRIT 39.4 % (37-47); IG% 0.9 %; LYMPH % 27.5 %; LYMPH ABS # 2.51 K/uL (1.2-3.4); MEAN CORPUSCULAR HEMOGLOBIN 29.5 pg (25-34); MEAN CORPUSCULAR HGB CONC 34.3 g/dl (32-36); MEAN PLATELET VOLUME 9.4 fL (7.4-10.4); MONO % 7.6 %; NEUT % 62.4 %; PLATELET COUNT 295 K/uL (130-400); RED BLOOD COUNT 4.58 M/uL (4.2-5.4); WHITE BLOOD COUNT 9.13 K/uL (4.8-10.8)
[2016-12-03 20:00] LABS: ALT/SGPT 26 U/L (12-78); BLOOD UREA NITROGEN 20 mg/dl (7-18); BUN/CREATININE RATIO 23.1 (10-20); CARBON DIOXIDE 18 mmol/L (21-32); CHLORIDE 113 mmol/L (98-107); CREATININE 0.85 mg/dl (0.60-1.20); GLUCOSE 70 mg/dl (70-99); POTASSIUM 3.7 mmol/L (3.5-5.1); SODIUM 143 mmol/L (136-145)
[2016-12-03 20:06] LABS: ALKALINE PHOSPHATASE 107 U/L (45-117); AST/SGOT 12 U/L (15-37)
--- NOTE | 2016-12-03 20:51 | DIAGNOSTIC IMAGING REPORT ---
ABDOMEN 2VIEW W/PA CHEST RTN CLINICAL HISTORY: Pt c/o chest, abd pain pain COMPARISON STUDY: No previous studies for comparison. FINDINGS: The soft tissues, psoas shadows, renal outlines and intestinal gas pattern appear normal. There is no evidence for bowel obstruction. There is no evidence for free intraperitoneal air. No abnormal abdominal calcifications are seen. A frontal view of the chest was performed and is unremarkable. IMPRESSION: Normal study. Electronically signed by: Lawrence Roberts M.D. 12/03/2016 8:50 PM Dictated Date/Time: 12/03/2016 8:49 PM
[2016-12-03 21:05] VITALS: BP 138/78; PULSE 85; O2SAT 97
[2016-12-17] MEDS ORDERED: LACT10CA3 PO (14:30)
[2017-04-10] MEDS ORDERED: NXM/40 PO (06:51)
[2017-04-10] MEDS ORDERED: CETI10TA84 PO (13:34)
[2017-04-10] MEDS ORDERED: LISI-461 PO (13:47)
[2017-04-10] MEDS ORDERED: FLUT115A INH (14:31)
[2017-04-10] MEDS ORDERED: VLM5CL PO (15:11)
[2017-04-10] MEDS ORDERED: ONDA4TAB10 SL (15:11)
[2017-04-10] MEDS ORDERED: PRAZ2CAP2 PO (15:46)
[2017-04-10] MEDS ORDERED: ZLF50 PO (15:57)
[2017-04-10] MEDS ORDERED: PRVHFAIN INH (15:57)
[2017-04-10] MEDS ORDERED: CYM30 PO (16:45)
[2017-04-10] MEDS ORDERED: CMP/10 PO (17:09)
[2017-04-10] MEDS ORDERED: BACL1TAB PO (19:08)
[2017-04-10] MEDS ORDERED: SNG10 PO (19:08)
[2017-04-10] MEDS ORDERED: CYM60 PO (19:08)
[2017-04-10] MEDS ORDERED: HYDR-3126 PO (19:08)
[2017-04-10] MEDS ORDERED: BSP/10 PO (19:08)
[2017-04-10] MEDS ORDERED: TOPI200T20 PO (19:08)
== END 2016-12-03 21:08 | disposition left against medical advice (07) ==
LOC: C.EDB 14:53 → C.EDC 21:08
DX: R07.89 Other chest pain (principal); R10.84 Generalized abdominal pain; R11.0 Nausea; J45.909 Unspecified asthma, uncomplicated; G80.9 Cerebral palsy, unspecified; I10 Essential (primary) hypertension; F32.9 Major depressive disorder, single episode, unspecified; K21.9 Gastro-esophageal reflux disease without esophagitis; F41.9 Anxiety disorder, unspecified; Z86.14 Personal history of Methicillin resistant Staphylococcus aureus infection; Z90.710 Acquired absence of both cervix and uterus; Z90.49 Acquired absence of other specified parts of digestive tract; Z98.1 Arthrodesis status; Z98.890 Other specified postprocedural states; Z83.3 Family history of diabetes mellitus; Z82.49 Family history of ischemic heart disease and other diseases of the circulatory system; Z79.899 Other long term (current) drug therapy

== ENCOUNTER 2016-12-12 14:30 | Emergency (ER) | payer OTHER ==
[~2016-12-12] VITALS: Ht 152.4 cm; Wt 113.0 kg
[2016-12-12 14:34] VITALS: TEMP 36.8; Ht 152.4 cm; Wt 113.0 kg
[2016-12-12] MEDS ORDERED: KETOROLAC TROMETHAMINE 30 MG/ML VIAL IV STA (14:54)
[2016-12-12] MEDS ORDERED: PROCHLORPERAZINE 5 MG/ML 2 ML VIAL IV STA (14:54)
[2016-12-12] MEDS ORDERED: DiphenhydrAMINE HCL 50 MG/ML VIAL IV STA ×2 (14:54→17:10)
[2016-12-12] MEDS ORDERED: SODIUM CHLORIDE 0.9% 1000ML 1,000 ML IV STA (14:54)
[2016-12-12] MEDS ORDERED: NITR-5 PO (16:20)
[2016-12-12 16:26] LABS: BASO % 0.3 %; BASO ABS # 0.02 K/uL (0-0.2); COMPLETE YES; EOS % 1.7 %; HEMATOCRIT 39.3 % (37-47); IG% 0.6 %; LYMPH ABS # 2.09 K/uL (1.2-3.4); MEAN CELL VOLUME 86.2 fL (80-100); MEAN CORPUSCULAR HEMOGLOBIN 29.4 pg (25-34); MEAN CORPUSCULAR HGB CONC 34.1 g/dl (32-36); MEAN PLATELET VOLUME 9.3 fL (7.4-10.4); NEUT % 59.4 %; PLATELET COUNT 248 K/uL (130-400); RED BLOOD COUNT 4.56 M/uL (4.2-5.4); WHITE BLOOD COUNT 6.53 K/uL (4.8-10.8)
[2016-12-12 16:48] LABS: ALT/SGPT 27 U/L (12-78); AST/SGOT 13 U/L (15-37); BLOOD UREA NITROGEN 11 mg/dl (7-18); BUN/CREATININE RATIO 14.3 (10-20); CALCIUM 9.2 mg/dl (8.5-10.1); CARBON DIOXIDE 21 mmol/L (21-32); CHLORIDE 112 mmol/L (98-107); GLUCOSE 72 mg/dl (70-99); POTASSIUM 3.7 mmol/L (3.5-5.1); SODIUM 144 mmol/L (136-145)
--- NOTE | 2016-12-12 16:53 | DIAGNOSTIC IMAGING REPORT ---
AP CHEST WITH ABDOMINAL SERIES CLINICAL HISTORY: Nausea and vomiting. Diarrhea. Atypical chest pain and dyspnea. FINDINGS: An AP semierect chest radiograph is compared to study dated 12/03/2016. Examination is significantly degraded by patient rotation. The cardiomediastinal silhouette is unremarkable. The lungs and pleural spaces are clear. No pneumothorax is seen. The bony thorax is grossly intact. Supine and decubitus abdominal radiographs are compared to study dated 12/03/2016 and correlated with abdominal CT dated 08/18/2016. There is a nonobstructed abdominal bowel gas pattern. No evidence of intraperitoneal free air is seen. Moderate colonic fecal retention is observed. Cholecystectomy clips are noted in the right upper quadrant. There are no abnormal abdominal calcifications. The lumbosacral spine and bony pelvis appear intact. IMPRESSION: 1. No active disease in the chest. 2. Unremarkable abdominal radiographs. Electronically signed by: Derrell Uriarte M.D. 12/12/2016 4:52 PM Dictated Date/Time: 12/12/2016 4:49 PM
[2016-12-12 16:57] LABS: ALKALINE PHOSPHATASE 112 U/L (45-117); C-REACTIVE PROTEIN 1.03 mg/dl (0-0.29); PHOSPHORUS 2.3 mg/dl (2.5-4.9)
[2016-12-12] MEDS ORDERED: ONDANSETRON INJ 2 MG/ML 2 ML VIAL IV STA (17:10)
--- NOTE | 2016-12-12 18:23 | DIAGNOSTIC IMAGING REPORT ---
CT ANGIOGRAM OF THE CHEST CLINICAL HISTORY: Atypical chest pain. COMPARISON STUDY: Chest x-ray dated 12/12/2016. Chest CT dated 12/15/2007. TECHNIQUE: Following the IV administration of 107 cc of Optiray 320, CT angiogram of the chest was performed from the upper abdomen to the thoracic inlet utilizing the pulmonary embolus protocol. Images are reviewed in the axial, sagittal, and coronal planes. 3-D MIPS images are created and assessed. IV contrast was administered without complication. The examination is degraded by large body habitus, and by streak artifact from the body wall abutting the CT gantry. The examination is also degraded by motion artifact. CT DOSE: 681.36 mGy.cm FINDINGS: Thyroid: Imaged portions of the thyroid gland are normal in size and attenuation. Thoracic aorta: The thoracic aorta is normal in caliber and demonstrates standard 3-vessel arch anatomy. No dissection is seen. Pulmonary vasculature: The pulmonary trunk is normal in caliber. There are no filling defects identified in main, lobar, or proximal segmental pulmonary branches to suggest pulmonary embolus. Evaluation of the peripheral vessels is degraded by motion artifact. Heart: The heart is normal in size and configuration, and without pericardial effusion. Lungs and pleural spaces: Evaluation of the lung parenchyma is degraded by motion artifact. Foci of linear atelectasis are present in the lower lobes bilaterally. There is no airspace consolidation typical for pneumonia or pleural effusion. Subcentimeter cysts are incidentally noted in the right lung. The trachea and central airways are clear. Mediastinum: There is no mediastinal lymphadenopathy. Colleen: Clear. Axillae: There is no axillary lymphadenopathy. Upper abdomen: The liver is enlarged and steatotic. Cholecystectomy clips are noted. There is a tiny hiatal hernia. Skeletal structures: No lytic or blastic bony lesions are seen. IMPRESSION: 1. There is no evidence of pulmonary embolus in the main, lobar, or proximal segmental pulmonary arteries. 2. No airspace consolidation or pleural effusion is identified. 3. Hepatic steatosis. Electronically signed by: Derrell Uriarte M.D. 12/12/2016 6:22 PM Dictated Date/Time: 12/12/2016 6:18 PM
[2016-12-12] MEDS ORDERED: OPTIRAY 320 IV PRN (18:30)
--- NOTE | 2016-12-12 19:13 | EMERGENCY ROOM VISIT NOTE ---
ED Visit Note First contact with patient: 14:42 I did evaluate and examine this patient myself. I did guide management for the patient. I agree with the APC's assessment as discussed. Please see the APC's dictation for further details. I did independently review the x-ray, 12-lead EKG, CT scan and blood work. Her chest pain as well. She was advised to follow closely with her doctor for further evaluation.
[2016-12-12 19:33] VITALS: BP 133/88; PULSE 77; O2SAT 96
--- NOTE | 2016-12-12 20:29 | EMERGENCY ROOM VISIT NOTE ---
History First contact with patient: 14:42 Chief Complaint: CHEST PAIN Stated Complaint: CHEST PAIN,STOMACH PAIN, NAUSEA, HEADACHE Nursing Triage Summary: pt to the ED with c/o chest pain abd pain nausea and MOORE for 3 days History of Present Illness The patient is a 31 year old female who presents to the Emergency Room with complaints of persistent left-sided chest pain radiating into the left arm, mild shortness of breath, nausea, headache, vomiting and diarrhea. The patient reports that her chest pain has been intermittent and ongoing since her last ED evaluation 9 days ago. She did follow up with her PCP regarding her last visit on 12/03, and had no further workup or referrals. Her nausea, vomiting and diarrhea been ongoing for the past 24 hours. She denies eating any unusual foods, and has had no recent travel. She denies any recent sick contacts as well. The patient has a significant history of cerebral palsy. She also reports a history of asthma, but does not feel that this is an asthma exacerbation. She has had no fevers or chills. She rates her discomfort a 9 out of 10. Review of Systems HEENT: Denies dizziness, visual problems, hearing loss, tinnitus. Denies difficulty swallowing or oral lesions. PULMONARY: Denies cough, sputum production or hemoptysis. CARDIOVASCULAR: Denies palpitations, dyspnea on exertion, orthopnea or peripheral edema. GASTROINTESTINAL: See history of present illness. GENITOURINARY: Denies dysuria, frequency, urgency or nocturia. NEUROLOGIC: History of cerebral palsy. MUSCULOSKELETAL: Denies history of joint tenderness/swelling. SKIN: Denies rashes or lesions. PSYCHIATRIC: History of anxiety and depression. ENDOCRINE: Denies history of diabetes or thyroid disorders. Past Medical/Surgical History Medical Problems: (1) Anxiety disorder (2) Asthma (3) Cerebral palsy (4) Depression (5) GERD (gastroesophageal reflux disease) (6) Hypertension (7) Insulin resistance (8) lysis of adhesions (9) MRSA (methicillin resistant Staphylococcus aureus) (10) Paralysis of both lower limbs (11) Suicidal ideations Surgical Problems: (1) H/O dilation and curettage (2) H/O shoulder surgery (3) History of hysterectomy (4) History of laminectomy (5) Hx of cholecystectomy (6) Hx of eye surgery (7) Hx of spinal fusion (8) S/P surgical manipulation of ankle joint Family History Diabetes mellitus FHx: gallbladder disease Hypertension Social History Smoking Status: Never Smoker Alcohol Use: none Drug Use: none Marital Status: single Housing Status: lives alone Occupation Status: employed, disabled Current/Historical Medications Scheduled Baclofen (Lioresal), 10 MG PO TID Buspirone Hcl (Buspirone Hcl), 10 MG PO TID Cetirizine (Zyrtec), 10 MG PO QAM Diazepam (Diazepam), 5 MG PO BID Duloxetine Hcl (Cymbalta), 60 MG PO QAM Duloxetine Hcl (Cymbalta), 30 MG PO QPM Esomeprazole Magnesium (Nexium), 40 MG PO QAM Fluticasone-Salmeterol 115/21 Mcg (Advair Hfa 115/21 Mcg), 1 PUFF INH BID Lactobacillus-Inulin (Culturelle), 1 CAP PO QAM Lisinopril (Lisinopril), 10 MG PO DAILY Montelukast Sodium (Singulair), 10 MG PO HS Nitrofurantoin Monohyd Macrocr (Macrobid), 100 MG PO BID Topiramate (Topamax), 200 MG PO BID Scheduled PRN Albuterol (Ventolin Hfa), 2 PUFFS INH QID PRN for SOB/Wheezing Hydroxyzine Pamoate (Vistaril), 25 MG PO DAILY PRN for Anxiety Ondasetron Odt (Zofran Odt), 4 MG SL Q6H PRN for Nausea Prochlorperazine Maleate (Prochlorperazine Maleate), 10 MG PO Q8 PRN for Nausea Allergies Coded Allergies: Aztreonam (Verified Allergy, Severe, SHORTNESS OF BREATH, 10/17/16) Cephalosporins (Verified Allergy, Severe, SHORTNESS OF BREATH, 10/17/16) Linezolid (Verified Allergy, Severe, SHORTNESS OF BREATH, 10/17/16) Penicillins (Verified Allergy, Severe, SHORTNESS OF BREATH, 10/17/16) Sulfa Antibiotics (Verified Allergy, Severe, SHORTNESS OF BREATH, 10/17/16) TOLERATED TAMSULOSIN; REPORTS SOB WITH BACTRIM Fexofenadine (Verified Allergy, Intermediate, HIVES, 10/17/16) Oxycodone (Verified Allergy, Intermediate, HIVES-ABLE TO TAKE DILAUDID, 10/17/16) Latex (Verified Allergy, Mild, Itching, 10/17/16) Beta Adrenergic Blockers (Verified Allergy, Unknown, unknown, 10/17/16) Latex1 -Allergic Contact Dermititis (Verified Allergy, Unknown, RASH, ) Meperidine (Verified Allergy, Unknown, RESPIRATORY DISTRESS, 10/17/16) Neomycin (Verified Allergy, Unknown, 10/17/16) Propoxyphene (Verified Allergy, Unknown, UNKNOWN, 10/17/16) Quinolones (Verified Allergy, Unknown, QUINOLONES-SOB, CAN TAKE CIPRO W/O PROBLEM, 10/17/16) Pt denies cipro allergy. States she has taken in the past Tetracycline (Verified Allergy, Unknown, 10/17/16) Verapamil (Verified Allergy, Unknown, UNKNOWN, 10/17/16) Physical Exam Vital Signs Date Time Temp Pulse Resp B/P (MAP) Pulse Ox O2 Delivery O2 Flow Rate FiO2 12/12/16 19:33 77 16 133/88 96 12/12/16 17:33 89 17 127/79 99 Room Air 12/12/16 16:14 76 18 131/88 99 Room Air 12/12/16 14:49 97 12/12/16 14:34 36.8 90 18 116/72 99 Room Air Physical Exam CONSTITUTIONAL: Obese female, alert and oriented X 3. Patient does not appear in any acute distress on exam. PSYCHIATRIC: Positive affect. HEENT: Normocephalic, atraumatic. Pupils equal, round and reactive. Ears and nares are clear. OROPHARYNX: No posterior pharyngeal erythema, tonsillar hypertrophy, postnasal drip or exudates. NECK: No JVD or carotid bruits. RESPIRATORY: Clear to auscultation bilaterally with no wheezing, crackles, rhonchi or stridor. CARDIOVASCULAR: Regular rate and rhythm with no murmurs, rubs or gallops. GASTROINTESTINAL: Bowel sounds present in all quadrants. Patient has generalized nonfocal tenderness to palpation of the abdomen. Negative No sign. Negative McBurney's point tenderness. No rigidity, guarding or rebound. MUSCULOSKELETAL: Patient has no tenderness to palpation over the left anterior chest wall. She also has no significant worsening pain with passive range of motion of the left shoulder. Physical exam is otherwise difficult because of the patient's cerebral palsy. INTEGUMENTARY: No rash or other significant dermatologic conditions noted. HEMATOLOGIC: No ecchymosis or petechiae. NEUROLOGIC: Examination is difficult secondary to history of cerebral palsy. Ankle reflexes are 1+ and symmetric bilaterally. Medical Decision & Procedures ER Provider Diagnostic Interpretation: My interpretation of an ECG shows a normal sinus rhythm of [address] elevation or other conduction abnormalities. My interpretation of an abdomen obstruction series with a PA chest view does not show any lung consolidations, pneumothorax, widened mediastinum, cardiomegaly, bowel obstruction, significant constipation or free air. Radiologist report is as follows: AP CHEST WITH ABDOMINAL SERIES CLINICAL HISTORY: Nausea and vomiting. Diarrhea. Atypical chest pain and dyspnea. FINDINGS: An AP semierect chest radiograph is compared to study dated 12/03/2016. Examination is significantly degraded by patient rotation. The cardiomediastinal silhouette is unremarkable. The lungs and pleural spaces are clear. No pneumothorax is seen. The bony thorax is grossly intact. Supine and decubitus abdominal radiographs are compared to study dated 12/03/2016 and correlated with abdominal CT dated 08/18/2016. There is a nonobstructed abdominal bowel gas pattern. No evidence of intraperitoneal free air is seen. Moderate colonic fecal retention is observed. Cholecystectomy clips are noted in the right upper quadrant. There are no abnormal abdominal calcifications. The lumbosacral spine and bony pelvis appear intact. IMPRESSION: 1. No active disease in the chest. 2. Unremarkable abdominal radiographs. Chest CT angiography was performed because of an elevated d-dimer and clinical history. CT scan does not show any evidence for pulmonary emboli, consolidations or other acute findings. Radiologist report is as follows: CT ANGIOGRAM OF THE CHEST CLINICAL HISTORY: Atypical chest pain. COMPARISON STUDY: Chest x-ray dated 12/12/2016. Chest CT dated 12/15/2007. TECHNIQUE: Following the IV administration of 107 cc of Optiray 320, CT angiogram of the chest was performed from the upper abdomen to the thoracic inlet utilizing the pulmonary embolus protocol. Images are reviewed in the axial, sagittal, and coronal planes. 3-D MIPS images are created and assessed. IV contrast was administered without complication. The examination is degraded by large body habitus, and by streak artifact from the body wall abutting the CT gantry. The examination is also degraded by motion artifact. CT DOSE: 681.36 mGy.cm FINDINGS: Thyroid: Imaged portions of the thyroid gland are normal in size and attenuation. Thoracic aorta: The thoracic aorta is normal in caliber and demonstrates standard 3-vessel arch anatomy. No dissection is seen. Pulmonary vasculature: The pulmonary trunk is normal in caliber. There are no filling defects identified in main, lobar, or proximal segmental pulmonary branches to suggest pulmonary embolus. Evaluation of the peripheral vessels is degraded by motion artifact. Heart: The heart is normal in size and configuration, and without pericardial effusion. Lungs and pleural spaces: Evaluation of the lung parenchyma is degraded by motion artifact. Foci of linear atelectasis are present in the lower lobes bilaterally. There is no airspace consolidation typical for pneumonia or pleural effusion. Subcentimeter cysts are incidentally noted in the right lung. The trachea and central airways are clear. Mediastinum: There is no mediastinal lymphadenopathy. Colleen: Clear. Axillae: There is no axillary lymphadenopathy. Upper abdomen: The liver is enlarged and steatotic. Cholecystectomy clips are noted. There is a tiny hiatal hernia. Skeletal structures: No lytic or blastic bony lesions are seen. IMPRESSION: 1. There is no evidence of pulmonary embolus in the main, lobar, or proximal segmental pulmonary arteries. 2. No airspace consolidation or pleural effusion is identified. 3. Hepatic steatosis. Laboratory Results 12/12/16 16:06 Red Blood Count 4.56, Mean Corpuscular Volume 86.2, Mean Corpuscular Hemoglobin 29.4, Mean Corpuscular Hemoglobin Concent 34.1, Mean Platelet Volume 9.3, Neutrophils (%) (Auto) 59.4, Lymphocytes (%) (Auto) 32.0, Monocytes (%) (Auto) 6.0, Eosinophils (%) (Auto) 1.7, Basophils (%) (Auto) 0.3, Neutrophils # (Auto) 3.88, Lymphocytes # (Auto) 2.09, Monocytes # (Auto) 0.39, Eosinophils # (Auto) 0.11, Basophils # (Auto) 0.02 12/12/16 16:06 Test 12/12/16 16:06 White Blood Count 6.53 K/uL (4.8-10.8) Red Blood Count 4.56 M/uL (4.2-5.4) Hemoglobin 13.4 g/dL (12.0-16.0) Hematocrit 39.3 % (37-47) Mean Corpuscular Volume 86.2 fL (80-100) Mean Corpuscular Hemoglobin 29.4 pg (25-34) Mean Corpuscular Hemoglobin Concent 34.1 g/dl (32-36) Platelet Count 248 K/uL (130-400) Mean Platelet Volume 9.3 fL (7.4-10.4) Neutrophils (%) (Auto) 59.4 % Lymphocytes (%) (Auto) 32.0 % Monocytes (%) (Auto) 6.0 % Eosinophils (%) (Auto) 1.7 % Basophils (%) (Auto) 0.3 % Neutrophils # (Auto) 3.88 K/uL (1.4-6.5) Lymphocytes # (Auto) 2.09 K/uL (1.2-3.4) Monocytes # (Auto) 0.39 K/uL (0.11-0.59) Eosinophils # (Auto) 0.11 K/uL (0-0.5) Basophils # (Auto) 0.02 K/uL (0-0.2) RDW Standard Deviation 45.0 fL (36.4-46.3) RDW Coefficient of Variation 14.3 % (11.5-14.5) Immature Granulocyte % (Auto) 0.6 % Immature Granulocyte # (Auto) 0.04 K/uL (0.00-0.02) Erythrocyte Sedimentation Rate 24 mm/hr (0-21) D-Dimer 600 ug/L FEU (0-500) Anion Gap 11.0 mmol/L (3-11) Est Creatinine Clear Calc Drug Dose 117.7 ml/min Estimated GFR () 114.7 Estimated GFR (Non- 98.9 BUN/Creatinine Ratio 14.3 (10-20) Calcium Level 9.2 mg/dl (8.5-10.1) Phosphorus Level 2.3 mg/dl (2.5-4.9) Magnesium Level 2.0 mg/dl (1.8-2.4) Total Bilirubin 0.2 mg/dl (0.2-1) Direct Bilirubin < 0.1 mg/dl (0-0.2) Aspartate Amino Transf (AST/SGOT) 13 U/L (15-37) Alanine Aminotransferase (ALT/SGPT) 27 U/L (12-78) Alkaline Phosphatase 112 U/L (45-117) Total Creatine Kinase 68 U/L (26-192) Troponin I < 0.015 ng/ml (0-0.045) C-Reactive Protein 1.03 mg/dl (0-0.29) Total Protein 7.3 gm/dl (6.4-8.2) Albumin 3.6 gm/dl (3.4-5.0) Thyroid Stimulating Hormone (TSH) 3.220 uIu/ml (0.300-4.500) The above labs were reviewed. D-dimer is elevated. Sedimentation rate and CRP are also elevated. Troponin is normal. Medications Administered Medications (Trade) Dose Ordered Sig/[place] Route Start Time Stop Time Status Last Admin Dose Admin Sodium Chloride 1,000 ml @ 999 mls/hr Q1H1M STAT IV 12/12/16 14:54 12/12/16 15:54 DC 12/12/16 14:54 999 MLS/HR Diphenhydramine HCl (Benadryl Inj) 50 mg NOW STAT IV 12/12/16 14:54 12/12/16 14:58 DC 12/12/16 16:10 50 MG Ketorolac Tromethamine (Toradol Inj) 30 mg NOW STAT IV 12/12/16 14:54 12/12/16 14:58 DC 12/12/16 16:10 30 MG Prochlorperazine Edisylate (Compazine Inj) 10 mg NOW STAT IV 12/12/16 14:54 12/12/16 14:58 DC 12/12/16 16:10 10 MG Diphenhydramine HCl (Benadryl Inj) 25 mg NOW STAT IV 12/12/16 17:10 12/12/16 17:12 DC 12/12/16 17:29 25 MG Ondansetron HCl (Zofran Inj) 4 mg NOW STAT IV 12/12/16 17:10 12/12/16 17:12 DC 12/12/16 17:29 4 MG Procedure 1. IV hydration: The patient received a liter normal saline bolus 2. IV medications: The patient was initially administered Benadryl 50 mg, Toradol 30 mg and Compazine 10 mg IVP. She was administered an additional Benadryl 25 mg and Zofran 4 mg IVP. ED Course Patient history and physical exam were performed. Nurse's notes were reviewed. I did review prior medical records, including her ED notes from her last visit on 12/03/16. Her workup was normal. The patient left AMA as she reports that her sister got off from work and came to the emergency department to pick her up, and she could not wait. She reports that her sister does not get off work until 8:00 tonight, or 5 hours from now. IV access was established, and labs were drawn. The patient was hydrated with normal saline, and received IV medications as discussed in the previous Procedure section. Review medical records also shows that the patient is on our NO NARCOTICS list at the request of her neurologist for concerning narcotic seeking behavior. The patient asked for her typical treatment of Benadryl, Compazine and Toradol after my evaluation was completed. Review of labs shows no leukocytosis or major electrolyte abnormality. She does have an elevated sedimentation rate and CRP. Troponin is normal. ECG and an abdomen obstruction series with a PA chest view were both normal. After the medication treatment as described in the previous Procedure section, the patient did report significant relief of her symptoms. The patient was also seen and examined by Dr. Montoya, ED attending physician, who agrees with outpatient management. The patient was instructed to call her family doctor for further reevaluation in the next 2 or 3 days. She was instructed to seek further emergent reevaluation for any progressively worsening chest pain, shortness of breath, fever, bloody diarrhea or other concerning symptoms. The patient was happy with plan of care, and rated her discomfort a 2 out of 10 at the time of discharge. Medical Decision Patient presents with multiple symptoms, including symptoms consistent with gastroenteritis. The patient was here several days ago with a complete workup that was also normal. A chest CT angiography does not show any acute intrathoracic findings, including pulmonary embolus, pneumonia or other suspicious lesions. Impression Primary Impression: Left sided chest pain Additional Impressions: Headache Nausea, vomiting and diarrhea Departure Information Referrals No Doctor, Assigned (PCP) Patient Instructions My [facility] Problem Qualifiers Additional Impressions: Headache Headache type: unspecified Headache chronicity pattern: acute headache Intractability: not intractable Qualified Codes: R51 - Headache
[2016-12-17] MEDS ORDERED: NXM/40 PO (06:51)
[2016-12-17] MEDS ORDERED: CETI10TA84 PO (13:34)
[2016-12-17] MEDS ORDERED: LISI-461 PO (13:47)
[2016-12-17] MEDS ORDERED: LACT10CA3 PO (14:30)
[2016-12-17] MEDS ORDERED: FLUT115A INH (14:31)
[2016-12-17] MEDS ORDERED: ONDA4TAB10 SL (15:11)
[2016-12-17] MEDS ORDERED: VLM5CL PO (15:11)
[2016-12-17] MEDS ORDERED: PRVHFAIN INH (15:57)
[2016-12-17] MEDS ORDERED: CMP/10 PO (17:09)
== END 2016-12-12 19:33 | disposition home or self-care (01) ==
LOC: C.EDB 14:31 → C.EDC 19:33
DX: R07.89 Other chest pain (principal); R51 Headache; R11.2 Nausea with vomiting, unspecified; R19.7 Diarrhea, unspecified; Z91.19 Patient's noncompliance with other medical treatment and regimen; I10 Essential (primary) hypertension; F32.9 Major depressive disorder, single episode, unspecified; K21.9 Gastro-esophageal reflux disease without esophagitis; F41.9 Anxiety disorder, unspecified; J45.909 Unspecified asthma, uncomplicated; G80.9 Cerebral palsy, unspecified; Z86.14 Personal history of Methicillin resistant Staphylococcus aureus infection; Z90.710 Acquired absence of both cervix and uterus; Z90.49 Acquired absence of other specified parts of digestive tract; Z98.1 Arthrodesis status; Z98.890 Other specified postprocedural states; Z79.899 Other long term (current) drug therapy; Z88.0 Allergy status to penicillin; Z88.2 Allergy status to sulfonamides; Z88.5 Allergy status to narcotic agent; Z88.8 Allergy status to other drugs, medicaments and biological substances; Z83.3 Family history of diabetes mellitus; Z83.79 Family history of other diseases of the digestive system; Z82.49 Family history of ischemic heart disease and other diseases of the circulatory system

== ENCOUNTER 2016-12-17 18:03 | Emergency (ER) | payer OTHER ==
[~2016-12-17 18:03] MED LIST changes: +CETI10TA84 PO; +CMP/10 PO; +FLUT115A INH; +LACT10CA3 PO; +LISI-461 PO; -MORP15TA PO; +NITR-5 PO; +NXM/40 PO; +ONDA4TAB10 SL; +PRVHFAIN INH; +VLM5CL PO
[2016-12-17 18:06] VITALS: TEMP 36.7; Ht 152.4 cm
[2016-12-17] MEDS ORDERED: PROCHLORPERAZINE 5 MG/ML 2 ML VIAL IM STA (18:58)
[2016-12-17] MEDS ORDERED: DiphenhydrAMINE HCL 50 MG/ML VIAL IM STA (18:58)
[2016-12-17] MEDS ORDERED: KETOROLAC TROMETHAMINE 60 MG/2 ML VIAL IM STA (18:58)
[2016-12-17] MEDS ORDERED: ALBUT/IPRATROP 3MG/0.5MG NEB 3 ML VIAL INH STA (18:58)
[2016-12-17] MEDS ORDERED: ALBUTEROL HFA 8 GM INHALER INH ONE (19:00)
[2016-12-17] MEDS ORDERED: HYDR-3126 PO (19:08)
[2016-12-17] MEDS ORDERED: TOPI200T20 PO (19:08)
[2016-12-17] MEDS ORDERED: SNG10 PO (19:08)
[2016-12-17] MEDS ORDERED: BACL1TAB PO (19:08)
[2016-12-17] MEDS ORDERED: CYM60 PO (19:08)
[2016-12-17] MEDS ORDERED: CYM30 PO (19:08)
[2016-12-17] MEDS ORDERED: BSP/10 PO (19:08)
--- NOTE | 2016-12-17 19:27 | DIAGNOSTIC IMAGING REPORT ---
SINGLE VIEW CHEST CLINICAL HISTORY: Left-sided chest pain. FINDINGS: An AP, portable, semierect chest radiograph is compared to chest x-ray and chest CT dated 12/12/2016. The examination is degraded by portable technique, large body habitus, and patient rotation. The cardiomediastinal silhouette is unremarkable. The lungs and pleural spaces are clear. No pneumothorax is seen. The bony thorax is grossly intact. IMPRESSION: No active disease in the chest and no significant change from studies dated 12/12/2016. Electronically signed by: Derrell Uriarte M.D. 12/17/2016 7:25 PM Dictated Date/Time: 12/17/2016 7:24 PM
[2016-12-17] MEDS ORDERED: hydrOXYzine HCL 25 MG TAB PO STA (20:43)
[2016-12-17 22:09] VITALS: BP 145/78; PULSE 73; O2SAT 97
--- NOTE | 2016-12-17 22:53 | EMERGENCY ROOM VISIT NOTE ---
History Report prepared by Alma: Kelly Ames Under the Supervision of: Dr. Samson Zuniga M.D. First contact with patient: 18:47 Chief Complaint: PAIN (GENERALIZED) Stated Complaint: CHEST PAIN,NAUSEA,HEADACHE History of Present Illness The patient is a 31 year old female who presents to the Emergency Room with complaints of persistent chest pain starting at noon today. The patient was seen here 1 week ago for chest pain. She had a normal chest CT and elevated D dimer. She will see her PCP next week to follow up. Her current chest pain is different from her previous chest pain. It is now going down her arm. It started while she was walking around her apartment. She currently rates her discomfort as a 9/10 in severity. Her pain worsens when she walks around. She also complains of a headache. Source of History: patient Onset: noon today Position: chest Symptom Intensity: 9/10 Quality: other (pain) Timing: other (persistent) Modifying Factors (Worsening): other (walking) Associated Symptoms: + headache Note: Pt reports arm pain. Review of Systems See HPI for pertinent positives & negatives. A total of 10 systems reviewed and were otherwise negative. Past Medical & Surgical Medical Problems: (1) Anxiety disorder (2) Asthma (3) Cerebral palsy (4) Depression (5) GERD (gastroesophageal reflux disease) (6) Hypertension (7) Insulin resistance (8) lysis of adhesions (9) MRSA (methicillin resistant Staphylococcus aureus) (10) Paralysis of both lower limbs (11) Suicidal ideations Surgical Problems: (1) H/O dilation and curettage (2) H/O shoulder surgery (3) History of hysterectomy (4) History of laminectomy (5) Hx of cholecystectomy (6) Hx of eye surgery (7) Hx of spinal fusion (8) S/P surgical manipulation of ankle joint Family History Diabetes mellitus FHx: gallbladder disease Hypertension Social History Smoking Status: Never Smoker Alcohol Use: none Drug Use: none Marital Status: single Housing Status: lives alone Occupation Status: employed, disabled Current/Historical Medications Scheduled Baclofen (Lioresal), 10 MG PO TID Buspirone HCl (Buspirone HCl), 10 MG PO TID Cetirizine (Zyrtec), 10 MG PO QAM Diazepam (Diazepam), 5 MG PO BID Duloxetine HCl (Duloxetine HCl), 30 MG PO QPM Duloxetine HCl (Duloxetine HCl), 60 MG PO QAM Esomeprazole Magnesium (Nexium), 40 MG PO QAM Fluticasone-Salmeterol 115/21 Mcg (Advair Hfa 115/21 Mcg), 1 PUFF INH BID Lactobacillus-Inulin (Culturelle), 1 CAP PO QAM Lisinopril (Lisinopril), 10 MG PO DAILY Montelukast Sod (Montelukast Sodium), 10 MG PO HS Topiramate (Topamax), 200 MG PO BID Scheduled PRN Albuterol (Ventolin Hfa), 2 PUFFS INH QID PRN for SOB/Wheezing Hydroxyzine Hcl (Atarax), 50 MG PO DAILY PRN for Anxiety Ondasetron Odt (Zofran Odt), 4 MG SL Q6H PRN for Nausea Prochlorperazine Maleate (Prochlorperazine Maleate), 10 MG PO Q8 PRN for Nausea Allergies Coded Allergies: Aztreonam (Verified Allergy, Severe, SHORTNESS OF BREATH, 10/17/16) Cephalosporins (Verified Allergy, Severe, SHORTNESS OF BREATH, 10/17/16) Linezolid (Verified Allergy, Severe, SHORTNESS OF BREATH, 10/17/16) Penicillins (Verified Allergy, Severe, SHORTNESS OF BREATH, 10/17/16) Sulfa Antibiotics (Verified Allergy, Severe, SHORTNESS OF BREATH, 10/17/16) TOLERATED TAMSULOSIN; REPORTS SOB WITH BACTRIM Fexofenadine (Verified Allergy, Intermediate, HIVES, 10/17/16) Oxycodone (Verified Allergy, Intermediate, HIVES-ABLE TO TAKE DILAUDID, 10/17/16) Latex (Verified Allergy, Mild, Itching, 10/17/16) Beta Adrenergic Blockers (Verified Allergy, Unknown, unknown, 10/17/16) Latex1 -Allergic Contact Dermititis (Verified Allergy, Unknown, RASH, ) Meperidine (Verified Allergy, Unknown, RESPIRATORY DISTRESS, 10/17/16) Neomycin (Verified Allergy, Unknown, 10/17/16) Propoxyphene (Verified Allergy, Unknown, UNKNOWN, 10/17/16) Quinolones (Verified Allergy, Unknown, QUINOLONES-SOB, CAN TAKE CIPRO W/O PROBLEM, 10/17/16) Pt denies cipro allergy. States she has taken in the past Tetracycline (Verified Allergy, Unknown, 10/17/16) Verapamil (Verified Allergy, Unknown, UNKNOWN, 10/17/16) Physical Exam Vital Signs Date Time Temp Pulse Resp B/P (MAP) Pulse Ox O2 Delivery O2 Flow Rate FiO2 12/17/16 22:09 73 18 145/78 97 12/17/16 20:50 97 18 143/95 96 Room Air 12/17/16 20:15 80 18 12/17/16 18:06 36.7 75 18 126/83 95 Room Air Physical Exam GENERAL: Patient is a healthy-appearing well-nourished female HEAD: Normocephalic atraumatic EYES: Ocular movements intact pupils equal and react to light OROPHARYNX mucous membranes are moist no exudates present no erythema or edema present NECK: Supple no nuchal rigidity CHEST: Good equal expansion LUNGS: Clear and equal to auscultation CARDIAC: Normal S1 and S2 ABDOMEN: Soft nontender no guarding BACK: No CVA tenderness EXTREMITIES: No pain upon palpation normal muscle strength in all groups no clubbing cyanosis or edema NEURO: Patient is following commands and answering questions appropriately. Alert and oriented x3 Cranial Nerves 2-12 grossly intact Medical Decision & Procedures ER Provider Diagnostic Interpretation: X-ray results as stated below per interpretation by me and the radiologist: SINGLE VIEW CHEST CLINICAL HISTORY: Left-sided chest pain. FINDINGS: An AP, portable, semierect chest radiograph is compared to chest x-ray and chest CT dated 12/12/2016. The examination is degraded by portable technique, large body habitus, and patient rotation. The cardiomediastinal silhouette is unremarkable. The lungs and pleural spaces are clear. No pneumothorax is seen. The bony thorax is grossly intact. IMPRESSION: No active disease in the chest and no significant change from studies dated 12/12/2016. Electronically signed by: Derrell Uriarte M.D. 12/17/2016 7:25 PM Dictated Date/Time: 12/17/2016 7:24 PM Medications Administered Medications (Trade) Dose Ordered Sig/[place] Route Start Time Stop Time Status Last Admin Dose Admin Ketorolac Tromethamine (Toradol Inj) 60 mg NOW STAT IM 12/17/16 18:58 12/17/16 19:01 DC 12/17/16 18:58 60 MG Prochlorperazine Edisylate (Compazine Inj) 10 mg NOW STAT IM 12/17/16 18:58 12/17/16 19:01 DC 12/17/16 18:58 10 MG Diphenhydramine HCl (Benadryl Inj) 50 mg NOW STAT IM 12/17/16 18:58 12/17/16 19:01 DC 12/17/16 18:58 50 MG Albuterol/ Ipratropium (Duoneb) 3 ml NOW STAT INH 12/17/16 18:58 12/17/16 19:01 DC 12/17/16 18:58 3 ML Albuterol (Ventolin Hfa Inhaler) 2 puffs NOW ONCE INH 12/17/16 19:00 12/17/16 19:01 DC 12/17/16 19:00 2 PUFFS Hydroxyzine HCl (Vistaril Tab) 25 mg NOW STAT PO 12/17/16 20:43 12/17/16 20:44 DC 12/17/16 20:43 25 MG ECG Indication: chest pain Rate (beats per minute): 67 Rhythm: normal sinus Findings: no acute ischemic change, no ectopy ED Course 1854: Past medical records reviewed. The patient was evaluated in room B8. A complete history and physical examination was performed. 1857: Duoneb 3 ml INH, Benadryl Inj 50 mg IM, Compazine Inj 10 mg IM, Toradol Inj 60 mg IM. 1899: Albuterol 2 puffs INH. 2042: Vistaril Tab 25 mg PO. 2122: Upon reexamination the patient is resting comfortably. I discussed results and treatment plan with the patient. She verbalizes agreement and understanding. The patient is ready for discharge. Medical Decision Prior records/ancillary studies reviewed. Triage Nursing notes reviewed. The patient's history was concerning for chest pain. Differential diagnosis: Etiologies such as cardiac ischemia, aortic dissection, pulmonary embolism, pneumonia, pneumothorax, musculoskeletal, infections, pericarditis, myocarditis , esophageal rupture, gastrointestinal, as well as others were entertained. Medication Reconciliation: I attest that I have personally reviewed the patient' s current medication list Blood Pressure Screening: Patient was found to have normal blood pressure on screening and does not require follow up. This is a 31-year-old female who presents emergency department for chest pain. I will note that the patient has been here multiple times for chest pain at this point I recommended she follow up with her primary care physician. She does not appear to be in any acute distress. She was given here in the emergency department. Chest x-ray looks normal. She was given shots for her pain including Toradol Compazine and Benadryl. I do believe that this patient can safely discharged home for follow-up with her primary care physician. Impression Primary Impression: Chest wall pain Scribe Attestation The scribe's documentation has been prepared under my direction and personally reviewed by me in its entirety. I confirm that the note above accurately reflects all work, treatment, procedures, and medical decision making performed by me. Departure Information Dispostion Home / Self-Care Referrals No Doctor, Assigned (PCP) Forms HOME CARE DOCUMENTATION FORM, IMPORTANT VISIT INFORMATION, WORK / SCHOOL INSTRUCTIONS Patient Instructions My [facility] Additional Instructions Use inhaler twice every 6 hours Follow up with DR Fierro's office You have been examined and treated today on an emergency basis only. This is not a substitute for, or an effort to provide, complete comprehensive medical care. It is impossible to recognize and treat all injuries or illnesses in a single emergency department visit. It is therefore important that you follow up closely with your PCP. Call as soon as possible for an appointment. Thank you for your time and consideration. I look forward to speaking with you again soon. Please don't hesitate to call us if you have any questions.
== END 2016-12-17 22:00 | disposition home or self-care (01) ==
LOC: C.EDB 18:04
DX: R07.89 Other chest pain (principal); I10 Essential (primary) hypertension; J45.909 Unspecified asthma, uncomplicated; F41.9 Anxiety disorder, unspecified; K21.9 Gastro-esophageal reflux disease without esophagitis; F32.9 Major depressive disorder, single episode, unspecified; Z86.14 Personal history of Methicillin resistant Staphylococcus aureus infection; Z98.1 Arthrodesis status; Z90.49 Acquired absence of other specified parts of digestive tract; Z98.890 Other specified postprocedural states; Z79.899 Other long term (current) drug therapy; Z88.0 Allergy status to penicillin; Z88.2 Allergy status to sulfonamides; Z88.5 Allergy status to narcotic agent; Z88.8 Allergy status to other drugs, medicaments and biological substances; Z91.040 Latex allergy status; Z83.3 Family history of diabetes mellitus; Z83.79 Family history of other diseases of the digestive system; Z82.49 Family history of ischemic heart disease and other diseases of the circulatory system

== ENCOUNTER 2016-12-23 21:33 | Emergency (ER) | payer OTHER ==
[~2016-12-23] VITALS: Ht 152.4 cm; Wt 113.5 kg
[~2016-12-23 21:33] MED LIST changes: -BACL10TA PO; +BACL1TAB PO; +BSP/10 PO; -BUSP-8 PO; -CYM/30 PO; +CYM30 PO; +CYM60 PO; -DULO60CA44 PO; +HYDR-3126 PO; -HYDR25CA PO; -MONT1TAB3 PO; -NITR-5 PO; +SNG10 PO; -TOPI200T14 PO; +TOPI200T20 PO
[2016-12-23 21:35] VITALS: TEMP 36.4; Ht 152.4 cm; Wt 113.5 kg
[2016-12-23] MEDS ORDERED: KETOROLAC TROMETHAMINE 30 MG/ML VIAL IV STA (21:42)
[2016-12-23] MEDS ORDERED: DiphenhydrAMINE HCL 50 MG/ML VIAL IV STA (21:42)
[2016-12-23] MEDS ORDERED: LORAZEPAM 2 MG/ML 1 ML VIAL IV STA (21:56)
[2016-12-23] MEDS ORDERED: LORAZEPAM 2 MG/ML 1 ML VIAL ONE (21:57)
[2016-12-24] MEDS ORDERED: DIAZEPAM INJ 5 MG/ML 2 ML CARP IV STA (01:07)
--- NOTE | 2016-12-24 02:48 | EMERGENCY ROOM VISIT NOTE ---
ED Visit Note First contact with patient: 21:36 Patient seen and examined at bedside. Patient wanted to the emergency department here frequently with complaints of pain. Does see pain management as an outpatient and has a history of drug-seeking behavior. Patient complained of back pain today, different compared to prior. Stated that she couldn't walk because her "legs didn't work". Patient also complained of urinary incontinence. Physician reference assistant performed a thorough bedside exam was not highly suggestive of cauda equina, however given inability to walk and complaints of leg dysfunction and MRI was ordered. Patient then refused MRI due to persistent pain and claustrophobia, although several attempts were made to medicate the patient. Patient then refused transfer to rehabilitation facility as offered by case management. Upon my evaluation patient continued to request narcotic pain medication. Her our concerns over their use and her being a monitored on MRI machine for an extended period of time. We discussed a dose of a muscle relaxer similar patient takes at home to help with her comfort during the MRI. She was agreeable with the plan at that time. We will await MRI results to make final disposition. Of note patient did have a normal MRI of both her thoracic and lumbar spine in July.
[2016-12-24 04:59] VITALS: BP 125/76; PULSE 84; O2SAT 100
--- NOTE | 2016-12-24 05:06 | EMERGENCY ROOM VISIT NOTE ---
History First contact with patient: 21:36 Chief Complaint: BACK INJURY Stated Complaint: HURT BACK,CANT MOVE LEGS History of Present Illness The patient is a 31 year old female who presents to the Emergency Room with complaints of severe back pain after she heard a pop in the back when she is tried to sit up and unable to move her legs. Patient had difficulties moving her legs for quite some time. She ambulates with a walker. She's had leg paralysis before. Patient lives alone. Patient does have CP. Patient describe the pain as severe, 9 out of 10. Worse with movement and better with rest. Patient denies fevers, loss of bowel or bladder control, chest pain, dyspnea, IV drug abuse, abdominal pain, saddle anesthesia. Patient had imaging in the past. Patient states that she needs pain meds right away. Review of Systems See HPI for pertinent positives & negatives. A total of 10 systems reviewed and were otherwise negative. Past Medical/Surgical History Medical Problems: (1) Anxiety disorder (2) Asthma (3) Cerebral palsy (4) Depression (5) GERD (gastroesophageal reflux disease) (6) Hypertension (7) Insulin resistance (8) lysis of adhesions (9) MRSA (methicillin resistant Staphylococcus aureus) (10) Paralysis of both lower limbs (11) Suicidal ideations Surgical Problems: (1) H/O dilation and curettage (2) H/O shoulder surgery (3) History of hysterectomy (4) History of laminectomy (5) Hx of cholecystectomy (6) Hx of eye surgery (7) Hx of spinal fusion (8) S/P surgical manipulation of ankle joint Family History Diabetes mellitus FHx: gallbladder disease Hypertension Social History Smoking Status: Never Smoker Alcohol Use: none Drug Use: none Marital Status: single Housing Status: lives alone Occupation Status: employed, disabled Current/Historical Medications Scheduled Baclofen (Lioresal), 10 MG PO TID Buspirone HCl (Buspirone HCl), 10 MG PO TID Cetirizine (Zyrtec), 10 MG PO QAM Diazepam (Diazepam), 5 MG PO BID Duloxetine HCl (Duloxetine HCl), 30 MG PO QPM Duloxetine HCl (Duloxetine HCl), 60 MG PO QAM Esomeprazole Magnesium (Nexium), 40 MG PO QAM Fluticasone-Salmeterol 115/21 Mcg (Advair Hfa 115/21 Mcg), 1 PUFF INH BID Lactobacillus-Inulin (Culturelle), 1 CAP PO QAM Lisinopril (Lisinopril), 10 MG PO DAILY Montelukast Sod (Montelukast Sodium), 10 MG PO HS Topiramate (Topamax), 200 MG PO BID Scheduled PRN Albuterol (Ventolin Hfa), 2 PUFFS INH QID PRN for SOB/Wheezing Hydroxyzine Hcl (Atarax), 50 MG PO DAILY PRN for Anxiety Ondasetron Odt (Zofran Odt), 4 MG SL Q6H PRN for Nausea Prochlorperazine Maleate (Prochlorperazine Maleate), 10 MG PO Q8 PRN for Nausea Allergies Coded Allergies: Aztreonam (Verified Allergy, Severe, SHORTNESS OF BREATH, 10/17/16) Cephalosporins (Verified Allergy, Severe, SHORTNESS OF BREATH, 10/17/16) Linezolid (Verified Allergy, Severe, SHORTNESS OF BREATH, 10/17/16) Penicillins (Verified Allergy, Severe, SHORTNESS OF BREATH, 10/17/16) Sulfa Antibiotics (Verified Allergy, Severe, SHORTNESS OF BREATH, 10/17/16) TOLERATED TAMSULOSIN; REPORTS SOB WITH BACTRIM Fexofenadine (Verified Allergy, Intermediate, HIVES, 10/17/16) Oxycodone (Verified Allergy, Intermediate, HIVES-ABLE TO TAKE DILAUDID, 10/17/16) Latex (Verified Allergy, Mild, Itching, 10/17/16) Beta Adrenergic Blockers (Verified Allergy, Unknown, unknown, 10/17/16) Latex1 -Allergic Contact Dermititis (Verified Allergy, Unknown, RASH, ) Meperidine (Verified Allergy, Unknown, RESPIRATORY DISTRESS, 10/17/16) Neomycin (Verified Allergy, Unknown, 10/17/16) Propoxyphene (Verified Allergy, Unknown, UNKNOWN, 10/17/16) Quinolones (Verified Allergy, Unknown, QUINOLONES-SOB, CAN TAKE CIPRO W/O PROBLEM, 10/17/16) Pt denies cipro allergy. States she has taken in the past Tetracycline (Verified Allergy, Unknown, 10/17/16) Verapamil (Verified Allergy, Unknown, UNKNOWN, 10/17/16) Physical Exam Vital Signs Date Time Temp Pulse Resp B/P (MAP) Pulse Ox O2 Delivery O2 Flow Rate FiO2 12/24/16 04:59 84 125/76 100 12/24/16 03:37 89 122/76 100 Room Air 12/24/16 01:28 87 18 134/76 97 Room Air 12/23/16 23:45 84 18 133/71 97 Room Air 12/23/16 21:35 36.4 95 22 126/82 100 Room Air Physical Exam VITALS: Vitals are noted on the nurse's note and reviewed by myself. Vital signs stable. GENERAL: White female requesting narcotics immediately morbidly obese, in no acute distress, nondiaphoretic, well-developed well-nourished. SKIN: Capillary reflex less than 2 seconds. HEENT: Normocephalic. PERRLA. EOMI. Nares patent. Mucous membranes moist. Neck is supple without nuchal rigidity. HEART: Regular rate and rhythm without murmurs gallops or rubs. LUNGS: Clear to auscultation bilaterally without wheezes, rales or rhonchi. No retractions or accessory muscle use. ABDOMEN: Positive bowel sounds x 4. Normal tympanic percussion. Soft, protuberant, obese, nontender, without masses or organomegaly. No sign negative. No guarding or rebound tenderness. MUSCULOSKELETAL: No gross musculoskeletal defects. No calf tenderness. Patient states she is unable to lift her legs or plantarflex or dorsiflex her feet. Patient was then log rolled as she was unable to sit up to examine her back and was able to hold her legs up by herself when she was log rolled by nursing. Patient had minimal lumbar spinal tenderness on exam and had rectal tone present. NEURO: Patient was alert and oriented to person place and time. Normal sensation to light and sharp touch. Deep tendon reflexes 2+ patella bilaterally. No focal neurological deficits. Medical Decision & Procedures Medications Administered Medications (Trade) Dose Ordered Sig/[place] Route Start Time Stop Time Status Last Admin Dose Admin Ketorolac Tromethamine (Toradol Inj) 30 mg NOW STAT IV 12/23/16 21:42 12/23/16 21:48 DC 12/23/16 22:02 30 MG Diphenhydramine HCl (Benadryl Inj) 25 mg NOW STAT IV 12/23/16 21:42 12/23/16 21:48 DC 12/23/16 22:02 25 MG Lorazepam (Ativan Inj) 1 mg NOW STAT IV 12/23/16 21:56 12/23/16 21:57 DC 12/23/16 22:02 1 MG ED Course Prior records/ancillary studies reviewed. Triage Nursing notes reviewed. The patient's history was concerning for back pain. Differential diagnosis: Etiologies such as drug seeking behavior, musculoskeletal, disc herniation, fracture, aortic disease, metastatic disease, cord compression, discitis, infection, renal colic, gastrointestinal, acute exacerbation of chronic back pain, sciatica, cauda equina, as well as others were entertained. Physical findings: As above. ER treatment provided: Toradol, Benadryl, Ativan On reassessment the patient felt better. Diagnostics interpreted by me: Imaging studies: [] Patient refused to do MRI without narcotics. I explained to the patient multiple times that she is on no narcotic list. She has had ongoing back pain and leg weakness quite some time. She was in MRI and refused to do the test as she was not receiving any narcotics. She was informed multiple times she would not be receiving any narcotics tonight. She then requested to speak to another provider and my attending spoke with her and informed her that she would not be receiving any narcotics. We did offer to do the MRI for her. Patient states she would do this as long as she got 1 dose of Valium. Patient then started demanding for more narcotics. She was informed she would not be receiving anything else. I did observe the patient moving her legs multiple times. Her patellar reflexes were intact. She refused to plantarflex or dorsiflex her feet for me. She did have rectal tone present. Patient then refused the MRI and requested to leave. She then demanded her diet. She was informed that she just got sick adnexal with the Valium filled yesterday. She then got in the wheelchair and left the ER. She refused the MRI and understands that we cannot rule out any neurological deficits without this. She is advised to follow-up with her spine doctor home neurologist or family care doctor this week or here in the ER sooner for inability to walk, fevers, weakness, worsening signs or symptoms or as needed. Exam and history seem consistent with chronic back pain with chronic leg weakness and drug-seeking behavior. Patient sat in the ER for 7 hours demanding narcotics and refusing her MRI. She then requested to leave. She refused any more testing. By the evaluation outlined above emergent etiologies such as fracture, aortic disease, metastatic disease, infection, renal colic, gastrointestinal, cord compression, cauda equina, as well as others were deemed relatively unlikely. The pt informed about the findings as listed above. All questions were answered and displeased with the treatment. Return instructions were outlined and the patient was discharged in stable condition. Referral: The patient was referred back to pain management, orthopedic spine and primary care physician for follow-up in 2 to 3 days for a recheck of the current condition. Case reviewed with my attending Medical Decision As above [place] Drug Monitoring Program Search Results: patient reviewed within database, see additional documentation (multiple narcotic scripts) Impression Primary Impression: Chronic back pain Additional Impressions: Drug-seeking behavior Bilateral leg weakness Departure Information Dispostion Home / Self-Care Condition GOOD Referrals No Doctor, Assigned (PCP) Patient Instructions My [facility] Additional Instructions DO NOT drive, drink alcohol, operate machinery, or perform dangerous activities today. You were given medications in the ER that can affect your ability to safely function or operate a vehicle. Ibuprofen(Motrin, Advil) may be used for fever or pain. Use 600mg every six hours as needed. Take with food. Avoid using more than 2400mg in a 24 hour period. Do not use 2400mg per day for more than three consecutive days without physician direction. Prolonged inappropriate use can lead to stomach upset or ulcers. This medication can be taken if you need to drive, work, or perform activities which may be dangerous when taking narcotic pain medication. Rest and avoid heavy lifting until your symptoms resolve and then gradually return to full activity. A good rule of thumb is if it hurts your back to perform a certain activity, then it should be avoided until you are healthy again. A heating pad, warm compresses, or a hot shower may help with tight muscles and can be done several times a day as needed. Continue current medications. Return to the ER immediately for any numbness, tingling, severe pain, loss of control of your bowels or bladder, inability to walk, or as needed. Follow up with your primary care physician within 3-5 days for a recheck of your current condition. Problem Qualifiers Primary Impression: Chronic back pain Back pain location: low back pain Back pain laterality: bilateral Sciatica presence: unspecified whether sciatica present Qualified Codes: M54.5 - Low back pain; G89.29 - Other chronic pain
== END 2016-12-24 05:01 | disposition home or self-care (01) ==
LOC: C.EDB 21:34 → C.EDA 12-24 05:01
DX: M54.5 Low back pain (principal); G89.29 Other chronic pain; Z76.5 Malingerer [conscious simulation]; M62.81 Muscle weakness (generalized); F41.9 Anxiety disorder, unspecified; J45.909 Unspecified asthma, uncomplicated; G80.9 Cerebral palsy, unspecified; F32.9 Major depressive disorder, single episode, unspecified; K21.9 Gastro-esophageal reflux disease without esophagitis; I10 Essential (primary) hypertension; E88.81 Metabolic syndrome and other insulin resistance; Z83.3 Family history of diabetes mellitus; Z82.49 Family history of ischemic heart disease and other diseases of the circulatory system

== ENCOUNTER 2017-01-01 15:35 | Emergency (ER) | payer OTHER ==
[~2017-01-01] VITALS: Ht 165.1 cm; Wt 114.0 kg
[2017-01-01 15:37] VITALS: TEMP 36.7; Ht 165.1 cm; Wt 114.0 kg
[2017-01-01] MEDS ORDERED: ZLF50 PO (15:57)
[2017-01-01] MEDS ORDERED: DiphenhydrAMINE HCL 50 MG/ML VIAL IV STA (15:58)
[2017-01-01] MEDS ORDERED: KETOROLAC TROMETHAMINE 30 MG/ML VIAL IV STA (15:58)
--- NOTE | 2017-01-01 16:11 | DIAGNOSTIC IMAGING REPORT ---
CHEST ONE VIEW PORTABLE CLINICAL HISTORY: Chest pain. COMPARISON STUDY: Chest CT December 12, 2016 and chest radiograph December 17, 2016. FINDINGS: Lung volumes are normal. There is no pneumothorax or pleural effusion. Linear right perihilar opacities suggest atelectasis. Cardiac size is normal. Mediastinal contours are unremarkable. There is no evidence of pulmonary edema. IMPRESSION: No acute cardiopulmonary findings. Electronically signed by: Aaron Hernandez M.D. 01/01/2017 4:10 PM Dictated Date/Time: 01/01/2017 4:09 PM
[2017-01-01 17:51] VITALS: BP 156/67; PULSE 109; O2SAT 97
[2017-01-01 17:52] LABS: BASO % 0.6 %; BASO ABS # 0.05 K/uL (0-0.2); COMPLETE YES; EOS % 2.6 %; HEMATOCRIT 37.8 % (37-47); IG% 0.7 %; LYMPH % 25.2 %; LYMPH ABS # 2.12 K/uL (1.2-3.4); MEAN CELL VOLUME 87.5 fL (80-100); MEAN CORPUSCULAR HEMOGLOBIN 29.4 pg (25-34); MEAN CORPUSCULAR HGB CONC 33.6 g/dl (32-36); MONO % 8.9 %; PLATELET COUNT 315 K/uL (130-400); RED BLOOD COUNT 4.32 M/uL (4.2-5.4)
[2017-01-01 18:17] LABS: INR 0.9 (0.9-1.1); PROTHROMBIN TIME (PATIENT) 9.9 SECONDS (9.0-12.0)
--- NOTE | 2017-01-12 17:51 | EMERGENCY ROOM VISIT NOTE ---
History Report prepared by Alma: Nissa Barrera Under the Supervision of: Dr. Marielos Frankel D.O. First contact with patient: 15:42 Chief Complaint: PAIN (GENERALIZED) Stated Complaint: CHEST/BACK PAIN,LEG SWELLING History of Present Illness The patient is a 31 year old female who presents to the Emergency Room with complaints of an episode of generalized pain starting 3 days ago. The patient states that she noticed her legs were swelling and that is not normal. She states that she is having back pain that is worse than the times she has been here before. The patient notes that she is having chest pain that started 3 hours ago, but notes that she think it is associated with her back pain. She notes that she did follow up with her PCP after the last visit and states that they do not know what is wrong with her. The patient states that she is experiencing intermittent shortness of breath, nausea, chills, and diarrhea. She notes that her pain is worse when laying down. The patient denies ever having a blood clot. She denies the use of blood thinners, vomiting, and fevers. Denies recent trauma, change in meds, recent travel. Source of History: patient Onset: 3 days ago Position: other (global) Quality: other (global) Timing: other (episode) Modifying Factors (Worsening): other (laying down) Associated Symptoms: + chills, + chest pain, + SOB, + nausea, + back pain, + diarrhea, No fevers, No vomiting Note: The patient complains of leg swelling. Review of Systems Pt denies headache, change in vision, fevers, chest pain, shortness of breath, nausea, vomiting, diarrhea, pain with urination, and melena. Past Medical & Surgical Medical Problems: (1) Anxiety disorder (2) Asthma (3) Cerebral palsy (4) Depression (5) GERD (gastroesophageal reflux disease) (6) Hypertension (7) Insulin resistance (8) lysis of adhesions (9) MRSA (methicillin resistant Staphylococcus aureus) (10) Paralysis of both lower limbs (11) Suicidal ideations Surgical Problems: (1) H/O dilation and curettage (2) H/O shoulder surgery (3) History of hysterectomy (4) History of laminectomy (5) Hx of cholecystectomy (6) Hx of eye surgery (7) Hx of spinal fusion (8) S/P surgical manipulation of ankle joint Family History Diabetes mellitus FHx: gallbladder disease Hypertension Social History Smoking Status: Never Smoker Alcohol Use: none Drug Use: none Marital Status: single Housing Status: lives alone Occupation Status: employed, disabled Current/Historical Medications Scheduled Baclofen (Lioresal), 10 MG PO TID Buspirone HCl (Buspirone HCl), 10 MG PO TID Cetirizine (Zyrtec), 10 MG PO QAM Diazepam (Diazepam), 5 MG PO BID Duloxetine HCl (Duloxetine HCl), 60 MG PO QAM Esomeprazole Magnesium (Nexium), 40 MG PO QAM Fluticasone-Salmeterol 115/21 Mcg (Advair Hfa 115/21 Mcg), 1 PUFF INH BID Hydroxyzine Hcl (Atarax), 50 MG PO HS Lactobacillus-Inulin (Culturelle), 1 CAP PO QAM Lisinopril (Lisinopril), 10 MG PO DAILY Montelukast Sod (Montelukast Sodium), 10 MG PO HS Sertraline HCl (Sertraline HCl), 50 MG PO QAM Topiramate (Topamax), 200 MG PO BID Scheduled PRN Albuterol (Ventolin Hfa), 2 PUFFS INH QID PRN for SOB/Wheezing Ondasetron Odt (Zofran Odt), 4 MG SL Q6H PRN for Nausea Prochlorperazine Maleate (Prochlorperazine Maleate), 10 MG PO Q8 PRN for Nausea Allergies Coded Allergies: Aztreonam (Verified Allergy, Severe, SHORTNESS OF BREATH, 01/01/17) Cephalosporins (Verified Allergy, Severe, SHORTNESS OF BREATH, 01/01/17) Linezolid (Verified Allergy, Severe, SHORTNESS OF BREATH, 01/01/17) Penicillins (Verified Allergy, Severe, SHORTNESS OF BREATH, 01/01/17) Sulfa Antibiotics (Verified Allergy, Severe, SHORTNESS OF BREATH, 01/01/17) TOLERATED TAMSULOSIN; REPORTS SOB WITH BACTRIM Fexofenadine (Verified Allergy, Intermediate, HIVES, 01/01/17) Latex (Verified Allergy, Mild, Itching, 01/01/17) Beta Adrenergic Blockers (Verified Allergy, Unknown, unknown, 01/01/17) Latex1 -Allergic Contact Dermititis (Verified Allergy, Unknown, RASH, 01/01) Meperidine (Verified Allergy, Unknown, RESPIRATORY DISTRESS, 01/01/17) Neomycin (Verified Allergy, Unknown, 01/01/17) Propoxyphene (Verified Allergy, Unknown, UNKNOWN, 01/01/17) Quinolones (Verified Allergy, Unknown, QUINOLONES-SOB, CAN TAKE CIPRO W/O PROBLEM, 01/01/17) Pt denies cipro allergy. States she has taken in the past Tetracycline (Verified Allergy, Unknown, 01/01/17) Verapamil (Verified Allergy, Unknown, UNKNOWN, 01/01/17) Physical Exam Vital Signs Date Time Temp Pulse Resp B/P (MAP) Pulse Ox O2 Delivery O2 Flow Rate FiO2 01/01/17 17:51 109 20 156/67 97 Room Air 01/01/17 15:37 36.7 107 20 146/86 95 Room Air Physical Exam GENERAL: alert, well appearing, well nourished, no distress, non-toxic, morbidly obese, patient with chronic mobility issues appears at baseline EYE EXAM: normal conjunctiva, PERRL and EOM's grossly intact OROPHARYNX: no exudate, no erythema, lips, buccal mucosa, and tongue normal and mucous membranes are moist NECK: supple, no nuchal rigidity, no adenopathy, non-tender LUNGS: Clear to auscultation. Normal chest wall mechanics HEART: no murmurs, S1 normal and S2 normal,no reproducible chest pain ABDOMEN: abdomen soft, non-tender, normo-active bowel sounds, no masses, no rebound or guarding. BACK: Back is symmetrical on inspection and there is no deformity, no midline tenderness, no CVA tenderness. SKIN: no rashes and no bruising UPPER EXTREMITIES: upper extremities are grossly normal. LOWER EXTREMITIES: No pitting edema. Compression stockings present, no calf tenderness. NEURO EXAM: Normal sensorium, cranial nerves II-XII grossly intact, normal speech, no gross weakness of arms, no gross weakness of legs. Medical Decision & Procedures ER Provider Diagnostic Interpretation: Radiology results have been interpreted by the radiologist and reviewed by me. CHEST ONE VIEW PORTABLE CLINICAL HISTORY: Chest pain. COMPARISON STUDY: Chest CT December 12, 2016 and chest radiograph December 17, 2016. FINDINGS: Lung volumes are normal. There is no pneumothorax or pleural effusion. Linear right perihilar opacities suggest atelectasis. Cardiac size is normal. Mediastinal contours are unremarkable. There is no evidence of pulmonary edema. IMPRESSION: No acute cardiopulmonary findings. Electronically signed by: Aaron Hernandez M.D. 01/01/2017 4:10 PM Dictated Date/Time: 01/01/2017 4:09 PM Laboratory Results 01/01/17 17:37 Red Blood Count 4.32, Mean Corpuscular Volume 87.5, Mean Corpuscular Hemoglobin 29.4, Mean Corpuscular Hemoglobin Concent 33.6, Mean Platelet Volume 9.0, Neutrophils (%) (Auto) 62.0, Lymphocytes (%) (Auto) 25.2, Monocytes (%) (Auto) 8.9, Eosinophils (%) (Auto) 2.6, Basophils (%) (Auto) 0.6, Neutrophils # (Auto) 5.20, Lymphocytes # (Auto) 2.12, Monocytes # (Auto) 0.75, Eosinophils # (Auto) 0.22, Basophils # (Auto) 0.05 Test 01/01/17 17:37 01/01/17 17:58 White Blood Count 8.40 K/uL (4.8-10.8) Red Blood Count 4.32 M/uL (4.2-5.4) Hemoglobin 12.7 g/dL (12.0-16.0) Hematocrit 37.8 % (37-47) Mean Corpuscular Volume 87.5 fL (80-100) Mean Corpuscular Hemoglobin 29.4 pg (25-34) Mean Corpuscular Hemoglobin Concent 33.6 g/dl (32-36) Platelet Count 315 K/uL (130-400) Mean Platelet Volume 9.0 fL (7.4-10.4) Neutrophils (%) (Auto) 62.0 % Lymphocytes (%) (Auto) 25.2 % Monocytes (%) (Auto) 8.9 % Eosinophils (%) (Auto) 2.6 % Basophils (%) (Auto) 0.6 % Neutrophils # (Auto) 5.20 K/uL (1.4-6.5) Lymphocytes # (Auto) 2.12 K/uL (1.2-3.4) Monocytes # (Auto) 0.75 K/uL (0.11-0.59) Eosinophils # (Auto) 0.22 K/uL (0-0.5) Basophils # (Auto) 0.05 K/uL (0-0.2) RDW Standard Deviation 48.7 fL (36.4-46.3) RDW Coefficient of Variation 15.1 % (11.5-14.5) Immature Granulocyte % (Auto) 0.7 % Immature Granulocyte # (Auto) 0.06 K/uL (0.00-0.02) Troponin I < 0.015 ng/ml (0-0.045) Prothrombin Time 9.9 SECONDS (9.0-12.0) Prothromb Time International Ratio 0.9 (0.9-1.1) D-Dimer 600 ug/L FEU (0-500) Laboratory results per my review. Medications Administered Medications (Trade) Dose Ordered Sig/[place] Route Start Time Stop Time Status Last Admin Dose Admin Ketorolac Tromethamine (Toradol Inj) 30 mg NOW STAT IV 01/01/17 15:58 01/01/17 15:59 DC 01/01/17 16:25 30 MG Diphenhydramine HCl (Benadryl Inj) 25 mg NOW STAT IV 01/01/17 15:58 01/01/17 15:59 DC 01/01/17 16:25 25 MG ECG Indication: chest pain Rate (beats per minute): 93 Rhythm: sinus rhythm Findings: no acute ischemic change, other (normal axis, normal intervals) ED Course 1545: The patient was evaluated in room C2B. A complete history and physical exam was performed. 1558: Ordered Benadryl Inj 25 mg IV, Toradol Inj 30 mg IV. 1746: I reevaluated the patient and updated her on the test results we have back. 1814: The nurse called and said the patient does not want to proceed with the MRI and is trying to find someone to come get her home. 1818; The patient signed out AMA. I explained the risks of this and she still wants to leave. The patient will be discharged home. Medical Decision Differential diagnosis: Etiologies such as cardiac ischemia, aortic dissection, pulmonary embolism, pneumonia, pneumothorax, musculoskeletal, infections, pericarditis, myocarditis , esophageal rupture, gastrointestinal, as well as others were entertained. Discussed with pt ddx of chest pain/back pain. Labs and VS reassuring. Offered MRI to r/o other concerning causes of back pain and pt initially agreeable, then opted to leave AMA. Pt ambulated with a steady gait upon leaving. Low suspicion for cauda equina, epidural abscess/hematoma, acute discitis or nerve impingement. Doubt acute cardiac or vascular cause of chest pain. Pt well known to the ER. Doubt occult infectious etiology. Doubt other GI pathology related to diarrhea. Medication Reconcilliation Current Medication List: was personally reviewed by me Blood Pressure Screening Patient's blood pressure: Elevated blood pressure Blood pressure disposition: Elevated BP felt to be situational Impression Primary Impression: Chest pain Additional Impression: Chronic back pain Scribe Attestation The scribe's documentation has been prepared under my direction and personally reviewed by me in its entirety. I confirm that the note above accurately reflects all work, treatment, procedures, and medical decision making performed by me. Departure Information Dispostion Home / Self-Care Referrals No Doctor, Assigned (PCP) Forms HOME CARE DOCUMENTATION FORM, IMPORTANT VISIT INFORMATION, WORK / SCHOOL INSTRUCTIONS Patient Instructions My [facility] Problem Qualifiers Primary Impression: Chest pain Chest pain type: unspecified Qualified Codes: R07.9 - Chest pain, unspecified Additional Impression: Chronic back pain Back pain location: low back pain Back pain laterality: bilateral Sciatica presence: without sciatica Qualified Codes: M54.5 - Low back pain; G89.29 - Other chronic pain
== END 2017-01-01 18:22 | disposition left against medical advice (07) ==
LOC: C.EDB 15:36 → C.EDC 18:22
DX: R07.9 Chest pain, unspecified (principal); M54.5 Low back pain; G89.29 Other chronic pain; R06.02 Shortness of breath; R19.7 Diarrhea, unspecified; J45.909 Unspecified asthma, uncomplicated; G80.9 Cerebral palsy, unspecified; I10 Essential (primary) hypertension; F32.9 Major depressive disorder, single episode, unspecified; K21.9 Gastro-esophageal reflux disease without esophagitis; F41.9 Anxiety disorder, unspecified; Z90.710 Acquired absence of both cervix and uterus; Z90.49 Acquired absence of other specified parts of digestive tract; Z98.1 Arthrodesis status; Z98.890 Other specified postprocedural states; Z83.3 Family history of diabetes mellitus; Z82.49 Family history of ischemic heart disease and other diseases of the circulatory system; Z79.899 Other long term (current) drug therapy

== ENCOUNTER 2017-03-15 14:59 | Emergency (ER) | payer OTHER ==
[~2017-03-15] VITALS: Ht 152.4 cm; Wt 105.0 kg
[~2017-03-15 14:59] MED LIST changes: -CYM30 PO; +ZLF50 PO
[2017-03-15 15:11] VITALS: TEMP 37.2; Ht 152.4 cm; Wt 105.0 kg
[2017-03-15] MEDS ORDERED: FAMOTIDINE 20MG/102 ML D5W IV STA (16:19)
[2017-03-15] MEDS ORDERED: SODIUM CHLORIDE 0.9% 1000ML 1,000 ML IV STA (16:19)
[2017-03-15] MEDS ORDERED: FENTANYL CITRATE INJ 50 MCG/1 ML 2 ML VIAL IV STA (16:19)
[2017-03-15] MEDS ORDERED: ONDANSETRON INJ 2 MG/ML 2 ML VIAL IV STA (16:19)
[2017-03-15] MEDS ORDERED: OPTIRAY 320 IV PRN (16:30)
[2017-03-15] MEDS ORDERED: CYM30 PO (16:45)
--- NOTE | 2017-03-15 16:45 | EMERGENCY ROOM VISIT NOTE ---
History Report prepared by Alma: Kelly Ames Under the Supervision of: Dr. Isaiah Lomax M.D. First contact with patient: 16:15 Chief Complaint: ABDOMINAL PAIN Stated Complaint: STOMACH PAIN, NOT ABLE TO EAT OR DRINK History of Present Illness The patient is a 31 year old female who presents to the Emergency Room with complaints of persistent right sided abdominal pain starting 1 week ago. The pain worsens with eating. She also complains of nausea and vomiting. She has been unable to eat or drink. She has been having 2 episodes of diarrhea a day which is brown and watery. She has intermittent fever and chills. She has some burning with urination, but feels she is able to void completely. She is having back pain which started after she had a spinal cord stimulator placed 2 months ago. She denies any cough, congestion, chest pain, or SOB. She has been taking her medications as directed. She denies any recent antibiotic use. She has had a hysterectomy and cholecystectomy. She has a history of cerebral palsy. Source of History: patient Onset: 1 week ago Position: abdomen (right sided) Quality: other (pain) Timing: other (persistent) Modifying Factors (Worsening): eating Associated Symptoms: + fevers, + chills, + nausea, + vomiting, + back pain, + diarrhea, + urinary symptoms, No cough, No chest pain, No SOB Note: Pt denies congestion. Review of Systems See HPI for pertinent positives and negatives. A total of ten systems were reviewed and were otherwise negative. Past Medical & Surgical Medical Problems: (1) Anxiety disorder (2) Asthma (3) Cerebral palsy (4) Depression (5) GERD (gastroesophageal reflux disease) (6) Hypertension (7) Insulin resistance (8) lysis of adhesions (9) MRSA (methicillin resistant Staphylococcus aureus) (10) Paralysis of both lower limbs (11) Suicidal ideations Surgical Problems: (1) H/O dilation and curettage (2) H/O shoulder surgery (3) History of hysterectomy (4) History of laminectomy (5) Hx of cholecystectomy (6) Hx of eye surgery (7) Hx of spinal fusion (8) S/P surgical manipulation of ankle joint Family History Diabetes mellitus FHx: gallbladder disease Hypertension Social History Smoking Status: Never Smoker Alcohol Use: none Drug Use: none Marital Status: single Housing Status: lives alone Occupation Status: employed, disabled Current/Historical Medications Scheduled Baclofen (Lioresal), 10 MG PO TID Buspirone HCl (Buspirone HCl), 10 MG PO TID Cetirizine (Zyrtec), 10 MG PO QAM Diazepam (Diazepam), 5 MG PO BID Duloxetine HCl (Duloxetine HCl), 60 MG PO QAM Duloxetine HCl (Duloxetine HCl), 30 MG PO DAILY Esomeprazole Magnesium (Nexium), 40 MG PO QAM Fluticasone-Salmeterol 115/21 Mcg (Advair Hfa 115/21 Mcg), 1 PUFF INH BID Hydroxyzine Hcl (Atarax), 50 MG PO HS Lactobacillus-Inulin (Culturelle), 1 CAP PO QAM Lisinopril (Lisinopril), 10 MG PO DAILY Montelukast Sod (Montelukast Sodium), 10 MG PO HS Sertraline HCl (Sertraline HCl), 50 MG PO QAM Topiramate (Topamax), 200 MG PO BID Scheduled PRN Albuterol (Ventolin Hfa), 2 PUFFS INH QID PRN for SOB/Wheezing Ondasetron Odt (Zofran Odt), 4 MG SL Q6H PRN for Nausea Prochlorperazine Maleate (Prochlorperazine Maleate), 10 MG PO Q8 PRN for Nausea Allergies Coded Allergies: Aztreonam (Verified Allergy, Severe, SHORTNESS OF BREATH, 03/15/17) Cephalosporins (Verified Allergy, Severe, SHORTNESS OF BREATH, 03/15/17) Linezolid (Verified Allergy, Severe, SHORTNESS OF BREATH, 03/15/17) Penicillins (Verified Allergy, Severe, SHORTNESS OF BREATH, 03/15/17) Sulfa Antibiotics (Verified Allergy, Severe, SHORTNESS OF BREATH, 03/15/17) TOLERATED TAMSULOSIN; REPORTS SOB WITH BACTRIM Fexofenadine (Verified Allergy, Intermediate, HIVES, 03/15/17) Latex (Verified Allergy, Mild, Itching, 03/15/17) Beta Adrenergic Blockers (Verified Allergy, Unknown, unknown, 03/15/17) Latex1 -Allergic Contact Dermititis (Verified Allergy, Unknown, RASH, 03/15) Meperidine (Verified Allergy, Unknown, RESPIRATORY DISTRESS, 03/15/17) Neomycin (Verified Allergy, Unknown, 03/15/17) Propoxyphene (Verified Allergy, Unknown, UNKNOWN, 03/15/17) Quinolones (Verified Allergy, Unknown, QUINOLONES-SOB, CAN TAKE CIPRO W/O PROBLEM, 03/15/17) Pt denies cipro allergy. States she has taken in the past Tetracycline (Verified Allergy, Unknown, 03/15/17) Vancomycin (Unverified Allergy, Unknown, REDNESS, 03/15/17) Verapamil (Verified Allergy, Unknown, UNKNOWN, 03/15/17) Physical Exam Vital Signs Date Time Temp Pulse Resp B/P (MAP) Pulse Ox O2 Delivery O2 Flow Rate FiO2 03/15/17 20:01 76 18 128/88 98 03/15/17 18:58 58 18 127/75 96 Room Air 03/15/17 16:40 82 03/15/17 15:11 37.2 83 18 119/76 98 Room Air Physical Exam GENERAL: Awake, alert, well-appearing, in no distress HENT: Normocephalic, atraumatic. Dry mucous membranes. EYES: Normal conjunctiva. Sclera non-icteric. NECK: Supple. No nuchal rigidity. FROM. No JVD. RESPIRATORY: Clear to auscultation. CARDIAC: Regular rate, normal rhythm. Extremities warm and well perfused. Pulses equal. ABDOMEN: Soft, non-distended. Diffuse generalized abdominal tenderness to palpation, most tender in the RLQ. No rebound or guarding. No masses. RECTAL: Deferred. MUSCULOSKELETAL: Chest examination reveals no tenderness. Tenderness in the lumbar region of the back at baseline. No areas of fluctuance, erythema, or induration around the stimulator site or battery site. There is no CVA tenderness to palpation. No joint edema. LOWER EXTREMITIES: Calves are equal size bilaterally and non-tender. No edema. No discoloration. NEURO: Normal sensorium. No sensory or motor deficits noted. SKIN: No rash or jaundice noted. Medical Decision & Procedures Laboratory Results 03/15/17 18:27 Red Blood Count 4.48, Mean Corpuscular Volume 86.2, Mean Corpuscular Hemoglobin 28.6, Mean Corpuscular Hemoglobin Concent 33.2, Mean Platelet Volume 10.3, Neutrophils (%) (Auto) 58.8, Lymphocytes (%) (Auto) 30.4, Monocytes (%) (Auto) 8.9, Eosinophils (%) (Auto) 1.4, Basophils (%) (Auto) 0.4, Neutrophils # (Auto) 4.29, Lymphocytes # (Auto) 2.22, Monocytes # (Auto) 0.65, Eosinophils # (Auto) 0.10, Basophils # (Auto) 0.03 03/15/17 18:27 Test 03/15/17 18:27 03/15/17 18:33 White Blood Count 7.30 K/uL (4.8-10.8) Red Blood Count 4.48 M/uL (4.2-5.4) Hemoglobin 12.8 g/dL (12.0-16.0) Hematocrit 38.6 % (37-47) Mean Corpuscular Volume 86.2 fL (80-100) Mean Corpuscular Hemoglobin 28.6 pg (25-34) Mean Corpuscular Hemoglobin Concent 33.2 g/dl (32-36) Platelet Count 236 K/uL (130-400) Mean Platelet Volume 10.3 fL (7.4-10.4) Neutrophils (%) (Auto) 58.8 % Lymphocytes (%) (Auto) 30.4 % Monocytes (%) (Auto) 8.9 % Eosinophils (%) (Auto) 1.4 % Basophils (%) (Auto) 0.4 % Neutrophils # (Auto) 4.29 K/uL (1.4-6.5) Lymphocytes # (Auto) 2.22 K/uL (1.2-3.4) Monocytes # (Auto) 0.65 K/uL (0.11-0.59) Eosinophils # (Auto) 0.10 K/uL (0-0.5) Basophils # (Auto) 0.03 K/uL (0-0.2) RDW Standard Deviation 44.9 fL (36.4-46.3) RDW Coefficient of Variation 14.3 % (11.5-14.5) Immature Granulocyte % (Auto) 0.1 % Immature Granulocyte # (Auto) 0.01 K/uL (0.00-0.02) Est Creatinine Clear Calc Drug Dose 118.4 ml/min Estimated GFR () 122.0 Estimated GFR (Non- 105.3 BUN/Creatinine Ratio 8.9 (10-20) Lactic Acid Level 1.3 mmol/L (0.4-2.0) Calcium Level 9.1 mg/dl (8.5-10.1) Total Bilirubin 0.2 mg/dl (0.2-1) Direct Bilirubin < 0.1 mg/dl (0-0.2) Aspartate Amino Transf (AST/SGOT) 46 U/L (15-37) Alanine Aminotransferase (ALT/SGPT) 46 U/L (12-78) Alkaline Phosphatase 111 U/L (45-117) Total Protein 7.2 gm/dl (6.4-8.2) Albumin 3.5 gm/dl (3.4-5.0) Lipase 197 U/L (73-393) Bedside Hemoglobin 11.9 g/dl (12.0-16.0) Bedside Hematocrit 35 % (37-47) Bedside Sodium 141 mEq/L (135-144) Bedside Potassium 4.0 mEq/L (3.3-5.0) Bedside Chloride 111 mEq/L (101-112) Bedside Total CO2 20 mEq/l (24-31) Anion Gap 15.0 mmol/L (16-25) Bedside Blood Urea Nitrogen 6 mg/dl (7-18) Bedside Creatinine 0.7 mg/dl (0.6-1.3) Bedside Glucose (other) 79 mg/dl (70-99) Bedside Ionized Calcium (Jessi) 1.21 mmol/l (1.12-1.32) Laboratory results reviewed by me Medications Administered Medications (Trade) Dose Ordered Sig/[place] Route Start Time Stop Time Status Last Admin Dose Admin Sodium Chloride 1,000 ml @ 999 mls/hr Q1H1M STAT IV 03/15/17 16:19 03/15/17 17:19 DC 03/15/17 16:38 999 MLS/HR Ondansetron HCl (Zofran Inj) 4 mg NOW STAT IV 03/15/17 16:19 03/15/17 16:27 DC 03/15/17 16:38 4 MG Famotidine (Pepcid 20mg/100 ml) 20 mg ONE STAT IV 03/15/17 16:19 03/15/17 16:27 DC 03/15/17 16:38 20 MG Fentanyl Citrate (Fentanyl Inj) 50 mcg NOW STAT IV 03/15/17 16:19 10/3/17 16:27 DC 03/15/17 16:38 50 MCG Diphenhydramine HCl (Benadryl Inj) 25 mg NOW STAT IV 03/15/17 16:49 03/15/17 16:51 DC 03/15/17 16:59 25 MG Metoclopramide HCl (Reglan Inj) 10 mg STK-MED ONCE .ROUTE 03/15/17 18:16 03/15/17 18:17 DC 03/15/17 18:18 10 MG Acetaminophen (Tylenol Tab) 1,000 mg NOW STAT PO 03/15/17 19:47 03/15/17 19:50 DC 03/15/17 20:01 1,000 MG ED Course 161: The patient was evaluated in room B8. A complete history and physical exam was performed. 161: Fentanyl Inj 50 mcg IV, Zofran Inj 4 mg IV, NSS 1000 ml @ 999 mls/hr IV. 1648: Benadryl Inj 25 mg IV. 1815: Reglan Inj 10 mg IV. 1909: I reevaluated the patient. I discussed results and discharge instructions : she verbalized understanding and agreement. The patient is ready for discharge. 1946: Acetaminophen 1000 mg PO. Medical Decision I reviewed the patient's past medical history, medications, and the nursing notes as described above. Differential diagnosis: gastritis, gastroenteritis, diverticulitis, appendicitis , bowel obstruction, gastroparesis, retained gallstone, pancreatitis. The patient is a 31-year-old woman with a past medical history of cerebral palsy on baclofen, chronic pain status post lumbar neurostimulator, multiple ED visits to different EDs for varying pain complaints presents to the emergency department with nausea vomiting generalized abdominal pain and diarrhea for the past week that has worsened to the point that she cannot tolerate oral intake history of present illness. Arrival the patient appears uncomfortable but in no acute distress, afebrile with stable vital signs. Patient has diffuse generalized abdominal pain with particular discomfort in the right lower quadrant, no peritoneal signs. Of note the patient reports having had her neurostimulator placed in January and has had waxing and waning nausea and vomiting and diarrhea since then. CM assisting obtaining records from [facility] ED where patient had CT on 03/05 for same complaints that was unremarkable. Repeat ED visit on 03/10 with unremarkable labs and d/c with GI appointment set up for 03/18. Was seen by her SW/CM today on home visit and while review of patient's chronic complaints was documented, no mention of referral to ED was documented. Labs today unremarkable. given patient's report of sx, CT abd/pelvis ordered to further evaluate for new pathology however patient declining and preferring discharge as her ride was arriving to pick her up. Given labs not concerning at this time and patient has close GI f/u patient d/c'd. Findings and plan for follow-up d/w patient. Patient agreeable and d/c'd per discharge instructions. Medication Reconcilliation Current Medication List: was personally reviewed by me Blood Pressure Screening Patient's blood pressure: Normal blood pressure Blood pressure disposition: Did not require urgent referral Impression Primary Impression: Abdominal pain Additional Impression: Gastroenteritis Scribe Attestation The scribe's documentation has been prepared under my direction and personally reviewed by me in its entirety. I confirm that the note above accurately reflects all work, treatment, procedures, and medical decision making performed by me. Departure Information Dispostion Home / Self-Care Referrals No Doctor, Assigned (PCP) Patient Instructions Abdominal Pain, ED Food Poison Or Gastroenteritis, My [facility] Additional Instructions Please follow up with your primary care physician in the next 1-3 days as well as with gastroenterology on Tuesday as scheduled for re-evaluation. Otherwise, your exam and lab results did not show signs of an emergent condition at this time. Continue your current medications. Drink plenty of fluids to ensure hydration. Return to the emergency department for worsening symptoms as described in the accompanying instructions. Problem Qualifiers
[2017-03-15] MEDS ORDERED: DiphenhydrAMINE HCL 50 MG/ML VIAL IV STA (16:49)
[2017-03-15] MEDS ORDERED: METOCLOPRAMIDE HCL INJ 5 MG/ML 2 ML VIAL ONE (18:16)
[2017-03-15 18:39] LABS: BASO % 0.4 %; BASO ABS # 0.03 K/uL (0-0.2); COMPLETE YES; EOS % 1.4 %; HEMATOCRIT 38.6 % (37-47); IG% 0.1 %; LYMPH % 30.4 %; LYMPH ABS # 2.22 K/uL (1.2-3.4); MEAN CELL VOLUME 86.2 fL (80-100); MEAN CORPUSCULAR HEMOGLOBIN 28.6 pg (25-34); MEAN CORPUSCULAR HGB CONC 33.2 g/dl (32-36); MEAN PLATELET VOLUME 10.3 fL (7.4-10.4); MONO % 8.9 %; NEUT % 58.8 %; PLATELET COUNT 236 K/uL (130-400); RED BLOOD COUNT 4.48 M/uL (4.2-5.4)
[2017-03-15 18:49] LABS: ISTAT CREATININE 0.7 mg/dl (0.6-1.3); ISTAT HEMOGLOBIN 11.9 g/dl (12.0-16.0); ISTAT IONIZED CALCIUM 1.21 mmol/l (1.12-1.32)
[2017-03-15 19:00] LABS: ALT/SGPT 46 U/L (12-78); BLOOD UREA NITROGEN 7 mg/dl (7-18); BUN/CREATININE RATIO 8.9 (10-20); CALCIUM 9.1 mg/dl (8.5-10.1); CARBON DIOXIDE 19 mmol/L (21-32); CHLORIDE 112 mmol/L (98-107); CREATININE 0.76 mg/dl (0.60-1.20); GLUCOSE 81 mg/dl (70-99); POTASSIUM 4.1 mmol/L (3.5-5.1); SODIUM 141 mmol/L (136-145)
[2017-03-15 19:03] LABS: ALKALINE PHOSPHATASE 111 U/L (45-117); AST/SGOT 46 U/L (15-37)
[2017-03-15] MEDS ORDERED: ACETAMINOPHEN 500 MG TAB PO STA (19:47)
[2017-03-15 20:01] VITALS: BP 128/88; PULSE 76; O2SAT 98
== END 2017-03-15 20:02 | disposition home or self-care (01) ==
LOC: C.EDB 15:00
DX: K52.9 Noninfective gastroenteritis and colitis, unspecified (principal); I10 Essential (primary) hypertension; G80.9 Cerebral palsy, unspecified; F41.9 Anxiety disorder, unspecified; J45.909 Unspecified asthma, uncomplicated; F32.9 Major depressive disorder, single episode, unspecified; K21.9 Gastro-esophageal reflux disease without esophagitis; Z79.4 Long term (current) use of insulin; Z86.14 Personal history of Methicillin resistant Staphylococcus aureus infection; Z90.710 Acquired absence of both cervix and uterus; Z98.1 Arthrodesis status; Z90.49 Acquired absence of other specified parts of digestive tract; Z98.890 Other specified postprocedural states; Z79.899 Other long term (current) drug therapy; Z88.0 Allergy status to penicillin; Z88.2 Allergy status to sulfonamides; Z88.8 Allergy status to other drugs, medicaments and biological substances; Z91.040 Latex allergy status; Z83.3 Family history of diabetes mellitus; Z82.49 Family history of ischemic heart disease and other diseases of the circulatory system

== ENCOUNTER 2017-07-14 15:29 | Inpatient (IN) | payer OTHER ==
[~2017-07-14] VITALS: Ht 152.4 cm; Wt 109.1 kg
[~2017-07-14 15:29] MED LIST changes: -BSP/10 PO; -CYM60 PO; -HYDR-3126 PO; -LACT10CA3 PO; +METHYLPREDNISOLONE 4 MG TAB PO SCH; -PRVHFAIN INH; -SNG10 PO; -TOPI200T20 PO; -ZLF50 PO
[2017-07-14] MEDS ORDERED: PRAZ2CAP2 PO (15:46)
--- NOTE | 2017-07-14 15:54 | EMERGENCY ROOM VISIT NOTE ---
History Report prepared by Alma: Medhat Arroyo. Under the Supervision of: Dr. Isaiah Lomax M.D. First contact with patient: 15:40 Chief Complaint: BACK PAIN Stated Complaint: FALL/ LEG&BACK PAIN History of Present Illness The patient is a 31 year old female who presents to the Emergency Room with complaints of back pain that onset following a falling episode that occurred a couple hours prior to arrival. The patient states that she was walking and lost her balance. She fell directly backward, onto an extended reclining chair. She notes that she currently has no sensation in her lower extremities, and cannot move them at all. She states that she actually has no feeling below her chest, but she does have pain in her lower back. She has a history of Cerebral Palsy, and needs to walk with a walker. She has been feeling healthy recently, and denies any other fevers, chest pain, or coughs. Denies history of chronic back pain or similar episodes like this in the past. Source of History: patient Onset: A couple hours prior to arrival Position: back Timing: other (Falling episode) Associated Symptoms: No cough, No chest pain Review of Systems See HPI for pertinent positives and negatives. A total of ten systems were reviewed and were otherwise negative. Past Medical & Surgical Medical Problems: (1) Anxiety disorder (2) Asthma (3) Cerebral palsy (4) Depression (5) GERD (gastroesophageal reflux disease) (6) Hypertension (7) Insulin resistance (8) lysis of adhesions (9) MRSA (methicillin resistant Staphylococcus aureus) (10) Paralysis of both lower limbs (11) Suicidal ideations Surgical Problems: (1) H/O dilation and curettage (2) H/O shoulder surgery (3) History of hysterectomy (4) History of laminectomy (5) Hx of cholecystectomy (6) Hx of eye surgery (7) Hx of spinal fusion (8) S/P surgical manipulation of ankle joint Family History Diabetes mellitus FHx: gallbladder disease Hypertension Social History Smoking Status: Never Smoker Alcohol Use: none Drug Use: none Marital Status: single Housing Status: lives alone Occupation Status: employed, disabled Current/Historical Medications Scheduled Buspirone HCl (Buspirone HCl), 10 MG PO TID Cetirizine (Zyrtec), 10 MG PO QAM Cyclobenzaprine Hcl (Flexeril), 10 MG PO TID Diazepam (Diazepam), 5 MG PO BID Duloxetine HCl (Duloxetine HCl), 60 MG PO QAM Duloxetine HCl (Duloxetine HCl), 30 MG PO HS Esomeprazole Magnesium (Nexium), 40 MG PO QAM Fluticasone-Salmeterol 115/21 Mcg (Advair Hfa 115/21 Mcg), 1 PUFF INH BID Gabapentin (Gabapentin), 300 MG PO BID Hydroxyzine Hcl (Atarax), 50 MG PO HS Lisinopril (Lisinopril), 10 MG PO QAM Montelukast Sod (Montelukast Sodium), 10 MG PO HS Naproxen (Aleve), 440 MG PO PRN UD Prazosin Hcl (Prazosin), 2 MG PO DAILY Sertraline HCl (Sertraline HCl), 75 MG PO QAM Topiramate (Topamax), 200 MG PO BID Scheduled PRN Albuterol (Ventolin Hfa), 2 PUFFS INH QID PRN for SOB/Wheezing Ondasetron Odt (Zofran Odt), 4 MG SL Q6H PRN for Nausea Allergies Coded Allergies: Aztreonam (Verified Allergy, Severe, SHORTNESS OF BREATH, 04/04/17) Cephalosporins (Verified Allergy, Severe, SHORTNESS OF BREATH, 04/04/17) Ketorolac Tromethamine (Verified Allergy, Severe, ITCHY, 07/14/17) Linezolid (Verified Allergy, Severe, SHORTNESS OF BREATH, 04/04/17) Penicillins (Verified Allergy, Severe, SHORTNESS OF BREATH, 04/04/17) Sulfa Antibiotics (Verified Allergy, Severe, SHORTNESS OF BREATH, 04/04/17 ) TOLERATED TAMSULOSIN; REPORTS SOB WITH BACTRIM Fexofenadine (Verified Allergy, Intermediate, HIVES, 04/04/17) Latex (Verified Allergy, Mild, Itching, 04/04/17) Beta Adrenergic Blockers (Verified Allergy, Unknown, unknown, 04/04/17) Latex1 -Allergic Contact Dermititis (Verified Allergy, Unknown, RASH, ) Meperidine (Verified Allergy, Unknown, RESPIRATORY DISTRESS, 04/04/17) Neomycin (Verified Allergy, Unknown, ., 04/04/17) Propoxyphene (Verified Allergy, Unknown, UNKNOWN, 04/04/17) Quinolones (Verified Allergy, Unknown, QUINOLONES-SOB, CAN TAKE CIPRO W/O PROBLEM, 04/04/17) Pt denies cipro allergy. States she has taken in the past Tetracycline (Verified Allergy, Unknown, UNKNOWN, 04/04/17) Vancomycin (Unverified Allergy, Unknown, REDNESS, 04/04/17) Verapamil (Verified Allergy, Unknown, UNKNOWN, 04/04/17) Physical Exam Vital Signs Date Time Temp Pulse Resp B/P (MAP) Pulse Ox O2 Delivery O2 Flow Rate FiO2 07/14/17 21:08 110 18 98/57 97 Room Air 07/14/17 18:38 117 16 119/60 94 Room Air 07/14/17 16:34 63 18 149/89 99 Room Air 07/14/17 15:52 54 07/14/17 15:45 36.9 55 18 134/86 100 Room Air Physical Exam GENERAL: Awake, alert, uncomfortable c/o severe pain HENT: Normocephalic, atraumatic. Oropharynx unremarkable. EYES: Normal conjunctiva. Sclera non-icteric. NECK: Supple. No nuchal rigidity. FROM. No JVD. RESPIRATORY: Clear to auscultation. CARDIAC: Regular rate, normal rhythm. Extremities warm and well perfused. Pulses equal. ABDOMEN: Soft, non-distended. No tenderness to palpation. No rebound or guarding. No masses. RECTAL: resting rectal tone however no contraction when asked to contract sphincter. MUSCULOSKELETAL: Chest examination reveals no tenderness. The back is symmetrical on inspection without obvious abnormality. There is tenderness throughout the T-L spine. No Step offs appreciated. No joint edema. LOWER EXTREMITIES: There is 0/5 strength in the Bilateral lower extremities despite painful stimulus. Calves are equal size bilaterally. No edema. No discoloration. NEURO: Reports no sensation anteriorly from T4 distally. Pain sensation throughout thoracic and lumbar region. Equivocal Babinski. SKIN: No rash or jaundice noted. Medical Decision & Procedures ER Provider Diagnostic Interpretation: Radiology results as stated below per my review and radiologist interpretation: MRI OF THE CERVICAL SPINE WITHOUT CONTRAST CLINICAL HISTORY: Fall. Back pain. Bilateral lower extremity paralysis. Cerebral palsy. COMPARISON: MRI of the cervical spine September 13, 2015, CT of the cervical spine August 25, 2016 and cervical spine radiographs April 10, 2017. TECHNIQUE: Utilizing a 1.5 Carola magnet and dedicated coil, multiplanar, multiecho imaging of the cervical spine was performed without IV contrast. FINDINGS: Alignment of the cervical spine is anatomic. Vertebral body heights are maintained. No fracture or suspicious marrow replacement. No intracanalicular mass or fluid collection is present. There is no prevertebral edema. There is no MRI evidence for ligamentous injury within the cervical spine. The appearance of the cervical spine is similar to MRI of September 13, 2015. Paravertebral soft tissues are unremarkable. Mild inherent T1 hyperintensity within the cerebellum is unchanged since prior exam of September 13, 2015. C2-C3: The central canal and the neural foramen are patent. C3-C4: The central canal and the neural foramen are patent. C4-C5: There is mild disc bulge with annular tear and tiny central disc protrusion. Central canal and neural foramen are patent. C5-C6: There is minimal disc bulge. The central canal and neural foramen are patent. C6-C7: The central canal and neural from are patent. C7-T1: Central canal and neural foramen are patent. IMPRESSION: 1. No acute abnormality within the cervical spine. 2. Unchanged appearance of the cervical spine since MRI of September 13, 2015 with mild multilevel degenerative disc disease at C4-C5 and C5-C6. Patent central canal. 3. Normal cervical cord signal and caliber. Electronically signed by: Aaron Hernandez M.D. 07/14/2017 5:46 PM Dictated Date/Time: 07/14/2017 5:37 PM MRI OF THE LUMBAR SPINE WITHOUT CONTRAST CLINICAL HISTORY: Fall with back pain. Bilateral lower extremity paralysis. Multiple lumbar spinal surgeries. COMPARISON STUDY: Lumbar spine MRI August 08, 2016. TECHNIQUE: Utilizing a 1.5 Carola magnet and dedicated coil, multiplanar, multiecho imaging of the lumbar spine was performed without IV contrast. FINDINGS: For purposes of numbering on this exam, the L5-S1 disc space is assigned to axial image 23 of 25. Alignment of the lumbar spine is anatomic. Vertebral body heights are maintained. There is no intracanalicular mass or fluid collection. The conus terminates at the T12-L1 level. Posterior decompression at L2-L5 is noted. Signal abnormality within the operative bed is similar to MRI of August 08, 2016. Moderate disc space narrowing at L5-S1 is unchanged. Mild disc space narrowing at L3-L4 is unchanged. Susceptibility artifact within the right aspect of L5 vertebra is unchanged. L1-2: The central canal and neural foramen are patent. L2-3: The central canal neural foramen are patent. L3-4: A central disc protrusion is unchanged. There is no significant central canal stenosis. There is mild bilateral neural foraminal stenosis. L4-5: Central canal is patent. Neural foramen are patent. L5-S1: Central canal and neural foramen are patent. IMPRESSION: 1. No change in appearance of the lumbar spine since MRI of August 08, 2016. 2. No acute abnormality within the lumbar spine. 3. No change in a central disc protrusion at L3-L4 without central canal stenosis. Mild bilateral neural foraminal stenosis at this level. Electronically signed by: Aaron Hernandez M.D. 07/14/2017 6:32 PM Dictated Date/Time: 07/14/2017 6:25 PM THORACIC SPINE MRI HISTORY: Fall back pain, bilateral lower extremity paralysis TECHNIQUE: Multiplanar multisequence MRI of the thoracic spine was performed without the use of contrast. COMPARISON: Thoracic spine 04/10/2017. FINDINGS: Alignment and curvature are intact. No fracture or subluxation. No significant central canal or neural foraminal narrowing. The thoracic spinal cord is normal in course, caliber, and signal intensity. Paraspinal soft tissues are unremarkable. Minimal disc space narrowing within the mid thoracic spine. Normal marrow signal intensity seen throughout the visualized osseous structures. Evidence for prior posterior decompression within the lower thoracic spine. IMPRESSION: No fracture or subluxation within the thoracic spine. Electronically signed by: Jonn Ling M.D. 07/14/2017 6:12 PM Dictated Date/Time: 07/14/2017 6:08 PM Laboratory Results 07/14/17 16:35 Red Blood Count 4.18, Mean Corpuscular Volume 88.3, Mean Corpuscular Hemoglobin 29.4, Mean Corpuscular Hemoglobin Concent 33.3, Mean Platelet Volume 8.9, Neutrophils (%) (Auto) 65.6, Lymphocytes (%) (Auto) 25.1, Monocytes (%) (Auto) 6.1, Eosinophils (%) (Auto) 1.8, Basophils (%) (Auto) 0.5, Neutrophils # (Auto) 5.71, Lymphocytes # (Auto) 2.19, Monocytes # (Auto) 0.53, Eosinophils # (Auto) 0.16, Basophils # (Auto) 0.04 07/14/17 16:35 Test 07/14/17 16:35 07/14/17 16:46 White Blood Count 8.71 K/uL (4.8-10.8) Red Blood Count 4.18 M/uL (4.2-5.4) Hemoglobin 12.3 g/dL (12.0-16.0) Hematocrit 36.9 % (37-47) Mean Corpuscular Volume 88.3 fL (80-100) Mean Corpuscular Hemoglobin 29.4 pg (25-34) Mean Corpuscular Hemoglobin Concent 33.3 g/dl (32-36) Platelet Count 315 K/uL (130-400) Mean Platelet Volume 8.9 fL (7.4-10.4) Neutrophils (%) (Auto) 65.6 % Lymphocytes (%) (Auto) 25.1 % Monocytes (%) (Auto) 6.1 % Eosinophils (%) (Auto) 1.8 % Basophils (%) (Auto) 0.5 % Neutrophils # (Auto) 5.71 K/uL (1.4-6.5) Lymphocytes # (Auto) 2.19 K/uL (1.2-3.4) Monocytes # (Auto) 0.53 K/uL (0.11-0.59) Eosinophils # (Auto) 0.16 K/uL (0-0.5) Basophils # (Auto) 0.04 K/uL (0-0.2) RDW Standard Deviation 50.0 fL (36.4-46.3) RDW Coefficient of Variation 15.5 % (11.5-14.5) Immature Granulocyte % (Auto) 0.9 % Immature Granulocyte # (Auto) 0.08 K/uL (0.00-0.02) Anion Gap 6.0 mmol/L (3-11) Est Creatinine Clear Calc Drug Dose 102.9 ml/min Estimated GFR () 96.8 Estimated GFR (Non- 83.6 BUN/Creatinine Ratio 16.2 (10-20) Calcium Level 8.8 mg/dl (8.5-10.1) Total Bilirubin 0.2 mg/dl (0.2-1) Direct Bilirubin < 0.1 mg/dl (0-0.2) Aspartate Amino Transf (AST/SGOT) 19 U/L (15-37) Alanine Aminotransferase (ALT/SGPT) 38 U/L (12-78) Alkaline Phosphatase 110 U/L (45-117) Total Protein 7.5 gm/dl (6.4-8.2) Albumin 3.3 gm/dl (3.4-5.0) Lipase 225 U/L (73-393) Urine Color YELLOW Urine Appearance CLEAR (CLEAR) Urine pH 8.0 (4.5-7.5) Urine Specific [place] 1.011 (1.000-1.030) Urine Protein NEG (NEG) Urine Glucose (UA) NEG (NEG) Urine Ketones NEG (NEG) Urine Occult Blood NEG (NEG) Urine Nitrite NEG (NEG) Urine Bilirubin NEG (NEG) Urine Urobilinogen NEG (NEG) Urine Leukocyte Esterase NEG (NEG) Laboratory results reviewed by me Medications Administered Medications (Trade) Dose Ordered Sig/[place] Route Start Time Stop Time Status Last Admin Dose Admin Sodium Chloride 1,000 ml @ 999 mls/hr Q1H1M STAT IV 07/14/17 15:58 07/14/17 16:58 DC 07/14/17 16:31 999 MLS/HR Morphine Sulfate (MoRPHine SULFATE INJ) 6 mg NOW STAT IV 07/14/17 15:58 07/14/17 16:03 DC 07/14/17 16:31 6 MG Lorazepam (Ativan Inj) 0.5 mg NOW STAT IV 07/14/17 16:53 07/14/17 16:54 DC 07/14/17 16:57 0.5 MG Morphine Sulfate (MoRPHine SULFATE INJ) 6 mg NOW STAT IV 07/14/17 17:33 07/14/17 17:34 DC 07/14/17 17:33 6 MG Ondansetron HCl (Zofran Inj) 4 mg NOW STAT IV 07/14/17 18:38 07/14/17 18:40 DC 07/14/17 18:44 4 MG Diphenhydramine HCl (Benadryl Inj) 25 mg NOW STAT IV 07/14/17 18:38 07/14/17 18:40 DC 07/14/17 18:44 25 MG Acetaminophen 100 ml @ 400 mls/hr NOW STAT IV 07/14/17 19:55 07/14/17 20:09 DC 07/14/17 20:17 400 MLS/HR Dexamethasone Sodium Phosphate (Dexamethasone Inj Pf) 10 mg NOW ONCE IV 07/14/17 20:15 07/14/17 20:16 DC 07/14/17 20:27 10 MG Lidocaine (Lidoderm Patch 5%) 1 patch STK-MED ONCE .ROUTE 07/14/17 20:24 07/14/17 20:25 DC 07/14/17 20:27 1 PATCH Morphine Sulfate (MoRPHine SULFATE INJ) 1 mg Q4 PRN IV 07/14/17 21:15 07/28/17 21:14 07/14/17 22:42 1 MG ED Course 1543: The patient was evaluated in room C3. A complete history and physical exam was performed. 1558: Ordered Morphine Sulfate 6 mg IV, Sodium Chloride 1000 mL @ 999 mL/hr IV. 1602: Ordered Sodium Chloride 1000 mL @ 999 mL/hr IV. 1653: Ordered Lorazepam 0.5 mg IV. 1733: Ordered Morphine Sulfate 6 mg IV. 1838: Ordered Benadryl 25 mg IV, Zofran 4 mg IV. 1953: I reevaluated the patient at this time. She is still unable to move her lower extremities. She has no response to painful stimuli or rectal tone. 1956: I discussed the case with Dr. Angelia Sow Spine. He agrees that this case seem Psychogenic. The mechanism does not support a spinal shock, but it is possible. 2015: I reviewed a hospital admission report of the patient from 2015. She presented with similar symptoms with 0/5 strength in the lower extremities. She was exhibiting narcotic seeking behavior during this visit. 2016: I discussed the case with Dr. Adan Chung Neurology at this time. 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 He states The patient will need to be admitted if she is not moving her legs. 2023: Ordered Lidocaine Patch. 2041: I discussed the case with Dr. Dylon Chung Hospitalist. He will evaluate the patient for further treatment. Medical Decision I reviewed the patient's past medical history, medications, and the nursing notes as described above. Differential diagnosis: Etiologies such as musculoskeletal, disc herniation, fracture, aortic disease, metastatic disease, cord compression, discitis, infection, renal colic, gastrointestinal, acute exacerbation of chronic back pain, sciatica, cauda equina, as well as others were entertained. The patient is a 31-year-old woman with a past medical history of cerebral palsy , chronic back pain (though patient denies), muscle spasticity and lower extremity paresis with prior admission for lower extremity paralysis presents to emergency department with lower extremity paralysis and loss of sensation after having a mechanical fall hitting her back on a chair per hpi. On arrival , the patient reports/expresses severe mid to lower back pain, she is afebrile with stable vital signs. Patient will not move her lower extremities despite signficant painful stimulus. Equivocal babinski. The patient has some resting rectal tone however when asked to squeeze her rectum there is no muscle contraction despite her endorsing that she is "trying". Patient was given morphine given her presentation with severe pain in the setting of presumed trauma with neurologic symptoms. However, of note, the patient was frequently is requesting narcotic medication which upon review of prior admission in 2016 is similar in behavior. MRI was performed of the cervical thoracic and lumbar spine with findings unchanged from previous. Given the patients mechanism was minor and the patient has been hemodynamically stable it is unlikely that the patient is experiencing spinal shock. Moreover, given the patient has sensation throughout her back and thus there is inconsistency in her exam with her report of anterior loss of sensation. Prior to full chart review of prior episodes of similar symptoms, case was discussed with Dr. Galan, Ortho-spine on-call, who agrees that unlikely to require transfer given that there are no imaging findings. Upon review of patient's last 2016 admission, case was additionally d/ w Dr. Gramajo, neurology, who is familiar with the patients prior admission and additionally agrees that there is no indication for transfer at this time. Thus, will admit here. Moreover, I did discuss with the patient that we will limit narcotic medication going forward given her lack of objective findings. Case d/w Dr. Pereyra, who will admit the patient for further management. Of note, subsequent [place] documentation obtained by CM of recent 07/12/2017 pcp visit that documents recent d/c from [facility] on 06/30/2017 with MRI of Lspine that was unchanged. Subsquently, she went to the [facility] ED twice after her discharge. During her 07/12/2017 visit she reports to her PCP that she cannot move her legs and requested that she be given a letter so she may be permitted to receive narcotics in the ED. This request was denied. 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 Galan -- [facility] Returned Call: 1956 I discussed the case with Dr. Angelia Sow Spine. He agrees that this case appears Psychogenic. The mechanism does not support a spinal shock. Additional Consults: Time Called: 2010 Consulted Physician: Dr. Eduardo Chung Neurology Returned Call: 2016 Additional Comments: I discussed the case with Dr. Adan Chung Neurology at this time. 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 The patient will need to be admitted if she is not moving her legs. Time Called: 2034 Consulted Physician: Dr. Dylon Chung Hospitalist Returned Call: 2041 Additional Comments: I discussed the case with Dr. Dylon Chung Hospitalist. He will evaluate the patient for further treatment. Impression Primary Impression: Paraparesis of both lower limbs Additional Impressions: Thoracic back pain Lumbar back pain Scribe Attestation The scribe's documentation has been prepared under my direction and personally reviewed by me in its entirety. I confirm that the note above accurately reflects all work, treatment, procedures, and medical decision making performed by me. Departure Information Dispostion Being Evaluated By Hospitalist Referrals Williams Velásquez M.D. (PCP) Patient Instructions My [facility] Problem Qualifiers
[2017-07-14] MEDS ORDERED: ZLF50 PO (15:57)
[2017-07-14] MEDS ORDERED: PRVHFAIN INH (15:57)
[2017-07-14] MEDS ORDERED: MoRPHine SULFATE 4 MG/ML 1 ML CARP\\VIAL IV STA ×2 (15:58→17:33)
[2017-07-14] MEDS ORDERED: SODIUM CHLORIDE 0.9% 1000ML 1,000 ML IV STA ×2 (15:58→16:02)
[2017-07-14 16:41] LABS: BASO % 0.5 %; BASO ABS # 0.04 K/uL (0-0.2); EOS % 1.8 %; EOS ABS # 0.16 K/uL (0-0.5); HEMATOCRIT 36.9 % (37-47); HEMOGLOBIN 12.3 g/dL (12.0-16.0); IG# 0.08 K/uL (0.00-0.02); LYMPH % 25.1 %; LYMPH ABS # 2.19 K/uL (1.2-3.4); MEAN CELL VOLUME 88.3 fL (80-100); MEAN CORPUSCULAR HEMOGLOBIN 29.4 pg (25-34); MEAN CORPUSCULAR HGB CONC 33.3 g/dl (32-36); MEAN PLATELET VOLUME 8.9 fL (7.4-10.4); MONO % 6.1 %; MONO ABS # 0.53 K/uL (0.11-0.59); NEUT % 65.6 %; NEUT ABS # 5.71 K/uL (1.4-6.5); PLATELET COUNT 315 K/uL (130-400); RED CELL DISTRIBUTION WIDTH CV 15.5 % (11.5-14.5); WHITE BLOOD COUNT 8.71 K/uL (4.8-10.8)
[2017-07-14] MEDS ORDERED: CYM30 PO (16:45)
[2017-07-14] MEDS ORDERED: LORAZEPAM 2 MG/ML 1 ML VIAL IV STA (16:53)
[2017-07-14 17:05] LABS: ALBUMIN 3.3 gm/dl (3.4-5.0); ALT/SGPT 38 U/L (12-78); AST/SGOT 19 U/L (15-37); BLOOD UREA NITROGEN 15 mg/dl (7-18); CALCIUM 8.8 mg/dl (8.5-10.1); CARBON DIOXIDE 22 mmol/L (21-32); CREATININE 0.92 mg/dl (0.60-1.20); GLUCOSE 79 mg/dl (70-99); LIPASE 225 U/L (73-393); POTASSIUM 4.3 mmol/L (3.5-5.1); SODIUM 141 mmol/L (136-145)
[2017-07-14 17:08] LABS: ALKALINE PHOSPHATASE 110 U/L (45-117); TOTAL PROTEIN 7.5 gm/dl (6.4-8.2)
[2017-07-14] MEDS ORDERED: CYCL10TA6 PO (17:18)
[2017-07-14] MEDS ORDERED: GABA1CAP4 PO (17:18)
[2017-07-14] MEDS ORDERED: NAPR1TAB9 PO (17:18)
--- NOTE | 2017-07-14 17:47 | DIAGNOSTIC IMAGING REPORT ---
MRI OF THE CERVICAL SPINE WITHOUT CONTRAST CLINICAL HISTORY: Fall. Back pain. Bilateral lower extremity paralysis. Cerebral palsy. COMPARISON: MRI of the cervical spine September 13, 2015, CT of the cervical spine August 25, 2016 and cervical spine radiographs April 10, 2017. TECHNIQUE: Utilizing a 1.5 Carola magnet and dedicated coil, multiplanar, multiecho imaging of the cervical spine was performed without IV contrast. FINDINGS: Alignment of the cervical spine is anatomic. Vertebral body heights are maintained. No fracture or suspicious marrow replacement. No intracanalicular mass or fluid collection is present. There is no prevertebral edema. There is no MRI evidence for ligamentous injury within the cervical spine. The appearance of the cervical spine is similar to MRI of September 13, 2015. Paravertebral soft tissues are unremarkable. Mild inherent T1 hyperintensity within the cerebellum is unchanged since prior exam of September 13, 2015. C2-C3: The central canal and the neural foramen are patent. C3-C4: The central canal and the neural foramen are patent. C4-C5: There is mild disc bulge with annular tear and tiny central disc protrusion. Central canal and neural foramen are patent. C5-C6: There is minimal disc bulge. The central canal and neural foramen are patent. C6-C7: The central canal and neural from are patent. C7-T1: Central canal and neural foramen are patent. IMPRESSION: 1. No acute abnormality within the cervical spine. 2. Unchanged appearance of the cervical spine since MRI of September 13, 2015 with mild multilevel degenerative disc disease at C4-C5 and C5-C6. Patent central canal. 3. Normal cervical cord signal and caliber. Electronically signed by: Aaron Hernandez M.D. 07/14/2017 5:46 PM Dictated Date/Time: 07/14/2017 5:37 PM
--- NOTE | 2017-07-14 18:14 | DIAGNOSTIC IMAGING REPORT ---
THORACIC SPINE MRI HISTORY: Fall back pain, bilateral lower extremity paralysis TECHNIQUE: Multiplanar multisequence MRI of the thoracic spine was performed without the use of contrast. COMPARISON: Thoracic spine 04/10/2017. FINDINGS: Alignment and curvature are intact. No fracture or subluxation. No significant central canal or neural foraminal narrowing. The thoracic spinal cord is normal in course, caliber, and signal intensity. Paraspinal soft tissues are unremarkable. Minimal disc space narrowing within the mid thoracic spine. Normal marrow signal intensity seen throughout the visualized osseous structures. Evidence for prior posterior decompression within the lower thoracic spine. IMPRESSION: No fracture or subluxation within the thoracic spine. Electronically signed by: Jonn Ling M.D. 07/14/2017 6:12 PM Dictated Date/Time: 07/14/2017 6:08 PM
--- NOTE | 2017-07-14 18:33 | DIAGNOSTIC IMAGING REPORT ---
MRI OF THE LUMBAR SPINE WITHOUT CONTRAST CLINICAL HISTORY: Fall with back pain. Bilateral lower extremity paralysis. Multiple lumbar spinal surgeries. COMPARISON STUDY: Lumbar spine MRI August 08, 2016. TECHNIQUE: Utilizing a 1.5 Carola magnet and dedicated coil, multiplanar, multiecho imaging of the lumbar spine was performed without IV contrast. FINDINGS: For purposes of numbering on this exam, the L5-S1 disc space is assigned to axial image 23 of 25. Alignment of the lumbar spine is anatomic. Vertebral body heights are maintained. There is no intracanalicular mass or fluid collection. The conus terminates at the T12-L1 level. Posterior decompression at L2-L5 is noted. Signal abnormality within the operative bed is similar to MRI of August 08, 2016. Moderate disc space narrowing at L5-S1 is unchanged. Mild disc space narrowing at L3-L4 is unchanged. Susceptibility artifact within the right aspect of L5 vertebra is unchanged. L1-2: The central canal and neural foramen are patent. L2-3: The central canal neural foramen are patent. L3-4: A central disc protrusion is unchanged. There is no significant central canal stenosis. There is mild bilateral neural foraminal stenosis. L4-5: Central canal is patent. Neural foramen are patent. L5-S1: Central canal and neural foramen are patent. IMPRESSION: 1. No change in appearance of the lumbar spine since MRI of August 08, 2016. 2. No acute abnormality within the lumbar spine. 3. No change in a central disc protrusion at L3-L4 without central canal stenosis. Mild bilateral neural foraminal stenosis at this level. Electronically signed by: Aaron Hernandez M.D. 07/14/2017 6:32 PM Dictated Date/Time: 07/14/2017 6:25 PM
[2017-07-14] MEDS ORDERED: ONDANSETRON INJ 2 MG/ML 2 ML VIAL IV STA (18:38)
[2017-07-14] MEDS ORDERED: DiphenhydrAMINE HCL 50 MG/ML VIAL IV STA (18:38)
[2017-07-14] MEDS ORDERED: TOPI200T20 PO (19:08)
[2017-07-14] MEDS ORDERED: SNG10 PO (19:08)
[2017-07-14] MEDS ORDERED: BSP/10 PO (19:08)
[2017-07-14] MEDS ORDERED: HYDR-3126 PO (19:08)
[2017-07-14] MEDS ORDERED: CYM60 PO (19:08)
[2017-07-14] MEDS ORDERED: ACETAMINOPHEN IV 100 ML IV STA (19:55)
[2017-07-14] MEDS ORDERED: DEXAMETHASONE **PF** INJ 10 MG/ML VIAL IV ONE (20:15)
[2017-07-14] MEDS ORDERED: LIDODERM (LIDOCAINE) PATCH 5% ONE (20:24)
[2017-07-14] MEDS ORDERED: ALBUTEROL HFA 8 GM INHALER INH PRN (21:15)
[2017-07-14] MEDS ORDERED: METHYLPREDNISOLONE 4MG TAB, 6 DAY TAPER PO SCH (21:15)
[2017-07-14] MEDS ORDERED: ONDANSETRON INJ 2 MG/ML 2 ML VIAL IV PRN (21:30)
--- NOTE | 2017-07-14 21:51 | History and Physical ---
History & Physical Date & Time of Service: Jul 14, 2017 at 21:32 Chief Complaint: Fall/ Leg&Back Pain Primary Care Physician: Williams Velásquez M.D. History of Present Illness Source: patient, clinic records, hospital records This is a 31 year old female with a PMH of cerebral palsy/congenital paraparesis , depression/anxiety, asthma, HTN, chronic back pain - presents with low back pain and lower extremity weakness. Patient has had previous admissions related to this. MRI performed of cervical, thoracic and lumbar spine, with no acute findings. Patient has had a spinal cord stimulator in the past year, but that was removed due to it being defective. Currently, denies fevers/chills or any other symptoms besides the pain, weakness and numbness/tingling. At baseline: uses a walker for ambulation if short distances, uses a wheelchair for long distances. Past Medical/Surgical History Medical Problems: (1) Anxiety disorder Status: Chronic (2) Asthma Status: Chronic (3) Cerebral palsy Status: Chronic (4) Depression Status: Chronic (5) GERD (gastroesophageal reflux disease) Status: Chronic (6) Hypertension Status: Chronic (7) Insulin resistance Status: Chronic (8) lysis of adhesions Status: Chronic (9) MRSA (methicillin resistant Staphylococcus aureus) Status: Resolved (10) Paralysis of both lower limbs Status: Chronic (11) Suicidal ideations Status: Chronic Surgical Problems: (1) H/O dilation and curettage Status: Resolved (2) H/O shoulder surgery Status: Resolved (3) History of hysterectomy Status: Resolved (4) History of laminectomy Status: Resolved (5) Hx of cholecystectomy Status: Resolved (6) Hx of eye surgery Status: Resolved (7) Hx of spinal fusion Status: Resolved (8) S/P surgical manipulation of ankle joint Status: Resolved Family History Diabetes mellitus FHx: gallbladder disease Hypertension Social History Smoking Status: Never Smoker Drug Use: none Marital Status: single Occupational Status: employed, disabled Immunizations History of Influenza Vaccine: Yes Influenza Vaccine Date: Apr 12, 2007 History of Tetanus Vaccine?: No History of Pneumococcal: No History of Hepatitis B Vaccine: Yes Hepatitis Immunization Date: Aug 10, 2001 Multi-Drug Resistant Organisms History of MDRO: Yes Type of MDRO: MRSA Allergies Coded Allergies: Aztreonam (Verified Allergy, Severe, SHORTNESS OF BREATH, 04/04/17) Cephalosporins (Verified Allergy, Severe, SHORTNESS OF BREATH, 04/04/17) Ketorolac Tromethamine (Verified Allergy, Severe, ITCHY, 07/14/17) Linezolid (Verified Allergy, Severe, SHORTNESS OF BREATH, 04/04/17) Penicillins (Verified Allergy, Severe, SHORTNESS OF BREATH, 04/04/17) Sulfa Antibiotics (Verified Allergy, Severe, SHORTNESS OF BREATH, 04/04/17 ) TOLERATED TAMSULOSIN; REPORTS SOB WITH BACTRIM Fexofenadine (Verified Allergy, Intermediate, HIVES, 04/04/17) Latex (Verified Allergy, Mild, Itching, 04/04/17) Beta Adrenergic Blockers (Verified Allergy, Unknown, unknown, 04/04/17) Latex1 -Allergic Contact Dermititis (Verified Allergy, Unknown, RASH, ) Meperidine (Verified Allergy, Unknown, RESPIRATORY DISTRESS, 04/04/17) Neomycin (Verified Allergy, Unknown, ., 04/04/17) Propoxyphene (Verified Allergy, Unknown, UNKNOWN, 04/04/17) Quinolones (Verified Allergy, Unknown, QUINOLONES-SOB, CAN TAKE CIPRO W/O PROBLEM, 04/04/17) Pt denies cipro allergy. States she has taken in the past Tetracycline (Verified Allergy, Unknown, UNKNOWN, 04/04/17) Vancomycin (Unverified Allergy, Unknown, REDNESS, 04/04/17) Verapamil (Verified Allergy, Unknown, UNKNOWN, 04/04/17) Home Medications Scheduled Buspirone HCl (Buspirone HCl), 10 MG PO TID Cetirizine (Zyrtec), 10 MG PO QAM Cyclobenzaprine Hcl (Flexeril), 10 MG PO TID Diazepam (Diazepam), 5 MG PO BID Duloxetine HCl (Duloxetine HCl), 60 MG PO QAM Duloxetine HCl (Duloxetine HCl), 30 MG PO HS Esomeprazole Magnesium (Nexium), 40 MG PO QAM Fluticasone-Salmeterol 115/21 Mcg (Advair Hfa 115/21 Mcg), 1 PUFF INH BID Gabapentin (Gabapentin), 300 MG PO BID Hydroxyzine Hcl (Atarax), 50 MG PO HS Lisinopril (Lisinopril), 10 MG PO QAM Montelukast Sod (Montelukast Sodium), 10 MG PO HS Naproxen (Aleve), 440 MG PO PRN UD Prazosin Hcl (Prazosin), 2 MG PO DAILY Sertraline HCl (Sertraline HCl), 75 MG PO QAM Topiramate (Topamax), 200 MG PO BID Scheduled PRN Albuterol (Ventolin Hfa), 2 PUFFS INH QID PRN for SOB/Wheezing Ondasetron Odt (Zofran Odt), 4 MG SL Q6H PRN for Nausea Review of Systems Constitutional: + weakness, No fever, No chills Eyes: No worsening of vision ENT: No hearing loss Respiratory: No cough, No sputum, No shortness of breath, No dyspnea on exertion, No dyspnea at rest, No hemoptysis Cardiovascular: No chest pain, No edema, No palpitations Abdomen: No pain, No nausea, No vomiting, No diarrhea Musculoskeletal: + joint pain, + muscle pain, No swelling, No calf pain Genitourinary - Female: No dysuria, No urinary frequency Neurologic: + weakness, + numbness/tingling, + balance problems, No memory loss , No paralysis, No vertigo Endocrine: No fatigue, No excessive thirst, No excessive urination Hematologic / Lymphatic: No abnormal bleeding/bruising Integumentary: No rash Allergic / Immunologic: No environmental allergies, No seasonal allergies Physical Exam Vital Signs Date Time Temp Pulse Resp B/P (MAP) Pulse Ox O2 Delivery O2 Flow Rate FiO2 07/14/17 21:08 110 18 98/57 97 Room Air 07/14/17 18:38 117 16 119/60 94 Room Air 07/14/17 16:34 63 18 149/89 99 Room Air 07/14/17 15:52 54 07/14/17 15:45 36.9 55 18 134/86 100 Room Air General Appearance: WD/WN, no apparent distress, + obese Head: normocephalic, atraumatic Eyes: normal inspection ENT: hearing grossly normal Respiratory/Chest: lungs clear, normal breath sounds, no respiratory distress, no accessory muscle use Cardiovascular: regular rate, rhythm, no edema, no murmur Abdomen/GI: non tender, soft Extremities/Musculoskelatal: no pedal edema, + pertinent finding (chronic weakness of b/l LE; decreased/painful ROM of back/LE) Neurologic/Psych: no motor/sensory deficits, alert, normal mood/affect Skin: normal color Lymphatic: no adenopathy Diagnostics Laboratory Results Results Past 24 Hours Test 07/14/17 16:35 07/14/17 16:46 Range/Units White Blood Count 8.71 4.8-10.8 K/uL Red Blood Count 4.18 4.2-5.4 M/uL Hemoglobin 12.3 12.0-16.0 g/dL Hematocrit 36.9 37-47 % Mean Corpuscular Volume 88.3 80-100 fL Mean Corpuscular Hemoglobin 29.4 25-34 pg Mean Corpuscular Hemoglobin Concent 33.3 32-36 g/dl Platelet Count 315 130-400 K/uL Mean Platelet Volume 8.9 7.4-10.4 fL Neutrophils (%) (Auto) 65.6 % Lymphocytes (%) (Auto) 25.1 % Monocytes (%) (Auto) 6.1 % Eosinophils (%) (Auto) 1.8 % Basophils (%) (Auto) 0.5 % Neutrophils # (Auto) 5.71 1.4-6.5 K/uL Lymphocytes # (Auto) 2.19 1.2-3.4 K/uL Monocytes # (Auto) 0.53 0.11-0.59 K/uL Eosinophils # (Auto) 0.16 0-0.5 K/uL Basophils # (Auto) 0.04 0-0.2 K/uL RDW Standard Deviation 50.0 36.4-46.3 fL RDW Coefficient of Variation 15.5 11.5-14.5 % Immature Granulocyte % (Auto) 0.9 % Immature Granulocyte # (Auto) 0.08 0.00-0.02 K/uL Sodium Level 141 136-145 mmol/L Potassium Level 4.3 3.5-5.1 mmol/L Chloride Level 113 98-107 mmol/L Carbon Dioxide Level 22 21-32 mmol/L Anion Gap 6.0 3-11 mmol/L Blood Urea Nitrogen 15 7-18 mg/dl Creatinine 0.92 0.60-1.20 mg/dl Est Creatinine Clear Calc Drug Dose 102.9 ml/min Estimated GFR () 96.8 Estimated GFR (Non- 83.6 BUN/Creatinine Ratio 16.2 10-20 Random Glucose 79 70-99 mg/dl Calcium Level 8.8 8.5-10.1 mg/dl Total Bilirubin 0.2 0.2-1 mg/dl Direct Bilirubin < 0.1 0-0.2 mg/dl Aspartate Amino Transf (AST/SGOT) 19 15-37 U/L Alanine Aminotransferase (ALT/SGPT) 38 12-78 U/L Alkaline Phosphatase 110 45-117 U/L Total Protein 7.5 6.4-8.2 gm/dl Albumin 3.3 3.4-5.0 gm/dl Lipase 225 73-393 U/L Urine Color YELLOW Urine Appearance CLEAR CLEAR Urine pH 8.0 4.5-7.5 Urine Specific [place] 1.011 1.000-1.030 Urine Protein NEG NEG Urine Glucose (UA) NEG NEG Urine Ketones NEG NEG Urine Occult Blood NEG NEG Urine Nitrite NEG NEG Urine Bilirubin NEG NEG Urine Urobilinogen NEG NEG Urine Leukocyte Esterase NEG NEG Diagnostic Radiology THORACIC SPINE MRI HISTORY: Fall back pain, bilateral lower extremity paralysis TECHNIQUE: Multiplanar multisequence MRI of the thoracic spine was performed without the use of contrast. COMPARISON: Thoracic spine 04/10/2017. FINDINGS: Alignment and curvature are intact. No fracture or subluxation. No significant central canal or neural foraminal narrowing. The thoracic spinal cord is normal in course, caliber, and signal intensity. Paraspinal soft tissues are unremarkable. Minimal disc space narrowing within the mid thoracic spine. Normal marrow signal intensity seen throughout the visualized osseous structures. Evidence for prior posterior decompression within the lower thoracic spine. IMPRESSION: No fracture or subluxation within the thoracic spine. MRI OF THE LUMBAR SPINE WITHOUT CONTRAST CLINICAL HISTORY: Fall with back pain. Bilateral lower extremity paralysis. Multiple lumbar spinal surgeries. COMPARISON STUDY: Lumbar spine MRI August 08, 2016. TECHNIQUE: Utilizing a 1.5 Carola magnet and dedicated coil, multiplanar, multiecho imaging of the lumbar spine was performed without IV contrast. FINDINGS: For purposes of numbering on this exam, the L5-S1 disc space is assigned to axial image 23 of 25. Alignment of the lumbar spine is anatomic. Vertebral body heights are maintained. There is no intracanalicular mass or fluid collection. The conus terminates at the T12-L1 level. Posterior decompression at L2-L5 is noted. Signal abnormality within the operative bed is similar to MRI of August 08, 2016. Moderate disc space narrowing at L5-S1 is unchanged. Mild disc space narrowing at L3-L4 is unchanged. Susceptibility artifact within the right aspect of L5 vertebra is unchanged. L1-2: The central canal and neural foramen are patent. L2-3: The central canal neural foramen are patent. L3-4: A central disc protrusion is unchanged. There is no significant central canal stenosis. There is mild bilateral neural foraminal stenosis. L4-5: Central canal is patent. Neural foramen are patent. L5-S1: Central canal and neural foramen are patent. IMPRESSION: 1. No change in appearance of the lumbar spine since MRI of August 08, 2016. 2. No acute abnormality within the lumbar spine. 3. No change in a central disc protrusion at L3-L4 without central canal stenosis. Mild bilateral neural foraminal stenosis at this level. MRI OF THE CERVICAL SPINE WITHOUT CONTRAST CLINICAL HISTORY: Fall. Back pain. Bilateral lower extremity paralysis. Cerebral palsy. COMPARISON: MRI of the cervical spine September 13, 2015, CT of the cervical spine August 25, 2016 and cervical spine radiographs April 10, 2017. TECHNIQUE: Utilizing a 1.5 Carola magnet and dedicated coil, multiplanar, multiecho imaging of the cervical spine was performed without IV contrast. FINDINGS: Alignment of the cervical spine is anatomic. Vertebral body heights are maintained. No fracture or suspicious marrow replacement. No intracanalicular mass or fluid collection is present. There is no prevertebral edema. There is no MRI evidence for ligamentous injury within the cervical spine. The appearance of the cervical spine is similar to MRI of September 13, 2015. Paravertebral soft tissues are unremarkable. Mild inherent T1 hyperintensity within the cerebellum is unchanged since prior exam of September 13, 2015. C2-C3: The central canal and the neural foramen are patent. C3-C4: The central canal and the neural foramen are patent. C4-C5: There is mild disc bulge with annular tear and tiny central disc protrusion. Central canal and neural foramen are patent. C5-C6: There is minimal disc bulge. The central canal and neural foramen are patent. C6-C7: The central canal and neural from are patent. C7-T1: Central canal and neural foramen are patent. IMPRESSION: 1. No acute abnormality within the cervical spine. 2. Unchanged appearance of the cervical spine since MRI of September 13, 2015 with mild multilevel degenerative disc disease at C4-C5 and C5-C6. Patent central canal. 3. Normal cervical cord signal and caliber. Impression Assessment and Plan This is a 31 year old female with a PMH of cerebral palsy/congenital paraparesis , depression/anxiety, asthma, HTN, chronic back pain - presents with low back pain and lower extremity weakness. Low Back Pain/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 MRI of cervical, thoracic, lumbar spine negative for any acute process at this point; she will be observed in med/surg will need pain control; for now, will try IV morphine 1mg q4 PRN added medrol dosepak increase gabapentin lidocaine patch taper off narcotics as soon as possible consulted neurology PT/OT ordered HTN holding Lisinopril due to low BP monitor and adjust accordingly Depression/Anxiety continue home medications DVT ppx Lovenox FULL CODE VTE Prophylaxis VTE Risk Assessment Done? Y/N: Yes Risk Level: Moderate
[2017-07-14 22:28] VITALS: BP 135/67; PULSE 73; TEMP 36.7; O2SAT 95
[2017-07-14 22:42] VITALS: BP 135/67; PULSE 70; TEMP 36.7; O2SAT 95; Ht 152.4 cm; Wt 109.1 kg
[2017-07-14] MEDS: MoRPHine SULFATE 2 MG/ML CARP IV PRN (22:42)
[2017-07-14] MEDS: DiphenhydrAMINE HCL 50 MG/ML VIAL IV PRN (22:45)
[2017-07-14 23:31] LABS: INR 0.9 (0.9-1.1); PTT PATIENT 24.8 SECONDS (21.0-31.0)
[2017-07-15] MEDS ORDERED: IV FLUIDS COMPLETED PRN (00:30)
[2017-07-15] MEDS: MoRPHine SULFATE 2 MG/ML CARP IV PRN ×4 (02:59→18:06)
[2017-07-15 06:25] VITALS: BP 123/76; PULSE 55; TEMP 36.4; O2SAT 98
[2017-07-15] MEDS ORDERED: METHYLPREDNISOLONE 4 MG TAB PO SCH ×4 (07:00→21:00)
[2017-07-15] MEDS: DIAZEPAM 5MG TAB PO SCH ×2 (07:40→20:52)
[2017-07-15] MEDS: DiphenhydrAMINE HCL 50 MG/ML VIAL IV PRN (07:45)
[2017-07-15] MEDS: ENOXAPARIN 40 MG/0.4 ML SYR SQ SCH (07:48)
[2017-07-15] MEDS: DULOXETINE HCL 60 MG CAP PO SCH (07:50)
[2017-07-15] MEDS: GABAPENTIN 600 MG TAB PO SCH ×2 (07:51→20:55)
[2017-07-15] MEDS: CYCLOBENZAPRINE HCL 10 MG TAB PO SCH ×3 (07:51→20:56)
[2017-07-15] MEDS: TOPIRAMATE 100 MG TAB PO SCH ×2 (07:52→20:54)
[2017-07-15] MEDS: PANTOprazole SOD 40 MG TAB PO SCH (07:52)
[2017-07-15] MEDS: SERTRALINE HCL 50 MG TAB PO SCH (07:53)
[2017-07-15] MEDS: CETIRIZINE HCL 10 MG TAB PO SCH (07:54)
[2017-07-15 08:00] VITALS: O2SAT 98
[2017-07-15] MEDS ORDERED: [UNRECOGNIZED DRUG - OTHER] INH SCH (08:00)
[2017-07-15] MEDS ORDERED: PNEUMOCOCCAL POLYSACCHARIDES 25 MCG/0.5 ML VIAL/SYR IM. ONE (08:00)
[2017-07-15] MEDS ORDERED: PRAZOSIN HCL 1 MG CAP PO SCH (08:00)
[2017-07-15] MEDS ORDERED: FLUTICASONE SALMETEROL INH SCH (08:00)
[2017-07-15] MEDS ORDERED: LIDODERM (LIDOCAINE) PATCH 5% TD SCH (08:00)
[2017-07-15] MEDS ORDERED: PNEUMOCOCCAL ADMINISTRATION CHARGE ONE (08:00)
[2017-07-15] MEDS ORDERED: NURSING VERBAL MED ORDER ONE (08:15)
--- NOTE | 2017-07-15 12:29 | Neurology Consultation ---
Neurology Consultation Date of Consultation: Jul 15, 2017. Attending Physician: Kavya Vasquez M.D. Primary Care Physician: Williams Velásquez M.D. Reason for Consultation: cerebral palsy History of Present Illness Source: patient Gricel is a 31 year old female with a PMH of cerebral palsy/congenital paraparesis, depression/anxiety, asthma, HTN, chronic back pain - presents with low back pain and lower extremity weakness. There were no acute findings on the MRI performed of cervical, thoracic and lumbar spine. She has had a spinal cord stimulator in the past year, but that was removed due to it being defective. She states her ambulation now is around 50 feet with no assistive devices but currently she can not feel her legs. She is not sure what happen with the fall but she does not think she hit her head. She denies that she was dizzy, lightheaded or weak before the fall. She states they started gabapentin 100 mg BID and Flexeril recently but she states that does not make her dizzy. She has not been seeing a neurologist but is being managed by her PCP. She was having PT /OT come to the home to work with her but that has ended. denies CP, SOB, abdominal pain, headache, vision changes, N, V. +loss of feeling in her legs, back pain. Past Medical/Surgical History Medical Problems: (1) 19505 Status: Acute (2) Abdominal pain Status: Acute (3) Back pain Status: Acute (4) Back pain due to injury Status: Acute (5) Bilateral leg weakness Status: Acute (6) Bilateral paresis Status: Acute (7) Cervical strain, acute Status: Acute (8) Chest wall pain Status: Acute (9) Chest wall pain Status: Acute (10) Contusion of multiple sites Status: Acute (11) Dehydration Status: Acute (12) Diarrhea Status: Acute (13) Diarrhea Status: Acute (14) Diarrhea Status: Acute (15) Drug-seeking behavior Status: Acute (16) Fall Status: Acute (17) Flank pain Status: Acute (18) Frequent falls Status: Acute (19) Gastroenteritis Status: Acute (20) Left sided chest pain Status: Acute (21) Lumbar back pain Status: Acute (22) Lumbar strain Status: Acute (23) Lumbar strain Status: Acute (24) Migraine Status: Acute (25) Multiple contusions Status: Acute (26) Nausea Status: Acute (27) Nausea, vomiting and diarrhea Status: Acute (28) Neck muscle strain Status: Acute (29) Paraparesis of both lower limbs Status: Acute (30) Paresis of lower extremity Status: Acute (31) Right lower quadrant abdominal pain Status: Acute (32) Rigidity Status: Acute (33) Strain of left hip Status: Acute (34) Strain of thoracic spine Status: Acute (35) Suicidal ideation Status: Acute (36) Thoracic back pain Status: Acute (37) Thoracic back pain Status: Acute (38) Urinary retention Status: Acute (39) Urinary retention Status: Acute (40) Urinary retention Status: Acute (41) Weakness Status: Acute Social History Smoking Status: Never smoker Drug Use: none Marital Status: single Housing Status: lives alone Occupation Status: employed, disabled Allergies Coded Allergies: Aztreonam (Verified Allergy, Severe, SHORTNESS OF BREATH, 04/04/17) Cephalosporins (Verified Allergy, Severe, SHORTNESS OF BREATH, 04/04/17) Ketorolac Tromethamine (Verified Allergy, Severe, ITCHY, 07/14/17) Linezolid (Verified Allergy, Severe, SHORTNESS OF BREATH, 04/04/17) Penicillins (Verified Allergy, Severe, SHORTNESS OF BREATH, 04/04/17) Sulfa Antibiotics (Verified Allergy, Severe, SHORTNESS OF BREATH, 04/04/17 ) TOLERATED TAMSULOSIN; REPORTS SOB WITH BACTRIM Fexofenadine (Verified Allergy, Intermediate, HIVES, 04/04/17) Latex (Verified Allergy, Mild, Itching, 04/04/17) Beta Adrenergic Blockers (Verified Allergy, Unknown, unknown, 04/04/17) Latex1 -Allergic Contact Dermititis (Verified Allergy, Unknown, RASH, ) Meperidine (Verified Allergy, Unknown, RESPIRATORY DISTRESS, 04/04/17) Neomycin (Verified Allergy, Unknown, ., 04/04/17) Propoxyphene (Verified Allergy, Unknown, UNKNOWN, 04/04/17) Quinolones (Verified Allergy, Unknown, QUINOLONES-SOB, CAN TAKE CIPRO W/O PROBLEM, 04/04/17) Pt denies cipro allergy. States she has taken in the past Tetracycline (Verified Allergy, Unknown, UNKNOWN, 04/04/17) Vancomycin (Unverified Allergy, Unknown, REDNESS, 04/04/17) Verapamil (Verified Allergy, Unknown, UNKNOWN, 04/04/17) Current Inpatient Medications Current Inpatient Medications Medications (Trade) Dose Ordered Sig/[place] Route Start Time Stop Time Status Last Admin Dose Admin Acetaminophen (Tylenol Tab) 650 mg Q4H PRN PO 07/14/17 21:15 08/13/17 21:14 Buspirone HCl (Buspar Tab) 10 mg TID PO 07/15/17 08:00 08/14/17 08:59 07/15/17 07:49 10 MG Pantoprazole Sodium (Protonix Tab) 40 mg QAM PO 07/15/17 08:00 08/14/17 07:59 07/15/17 07:52 40 MG Albuterol (Ventolin Hfa Inhaler) 2 puffs QID PRN INH 07/14/17 21:15 08/13/17 21:14 Cetirizine HCl (zyrTEC TAB) 10 mg QAM PO 07/15/17 08:00 08/14/17 08:59 07/15/17 07:54 10 MG Cyclobenzaprine HCl (Flexeril Tab) 10 mg TID PO 07/15/17 08:00 08/14/17 08:59 07/15/17 07:51 10 MG Diazepam (Valium Tab) 5 mg BID PO 07/15/17 08:00 08/14/17 08:59 07/15/17 07:40 5 MG Duloxetine HCl (Cymbalta Cap) 30 mg HS PO 07/15/17 21:00 08/14/17 20:59 Duloxetine HCl (Cymbalta Cap) 60 mg QAM PO 07/15/17 08:00 08/14/17 08:59 07/15/17 07:50 60 MG Hydroxyzine HCl (Vistaril Tab) 50 mg HS PO 07/15/17 21:00 08/14/17 20:59 Montelukast Sodium (Singulair Tab) 10 mg HS PO 07/15/17 21:00 08/14/17 20:59 Ondansetron HCl (Zofran Odt) 4 mg Q6H PRN SL 07/14/17 21:15 08/13/17 21:14 Sertraline HCl (Zoloft Tab) 75 mg QAM PO 07/15/17 08:00 08/14/17 08:59 07/15/17 07:53 75 MG Topiramate (Topamax Tab) 200 mg BID PO 07/15/17 08:00 08/14/17 08:59 07/15/17 07:52 200 MG Gabapentin (Neurontin Tab) 600 mg BID PO 07/15/17 08:00 08/14/17 08:59 07/15/17 07:51 600 MG Morphine Sulfate (MoRPHine SULFATE INJ) 1 mg Q4 PRN IV 07/14/17 21:15 07/28/17 21:14 07/15/17 12:08 1 MG Enoxaparin Sodium (Lovenox Inj) 40 mg Q24H SQ 07/15/17 06:00 08/14/17 05:59 07/15/17 07:48 40 MG Ondansetron HCl (Zofran Inj) 4 mg Q6H PRN IV 07/14/17 21:30 08/13/17 21:29 Diphenhydramine HCl (Benadryl Inj) 50 mg TID PRN IV 07/14/17 21:30 08/13/17 21:29 07/15/17 07:45 50 MG Miscellaneous Information (Order Awaiting Action) 1 ea QS N/A 07/15/17 00:00 08/14/17 00:00 Miscellaneous (Iv Fluids Completed) 1 ea PRN PRN N/A 07/15/17 00:30 07/15/18 00:29 Prazosin HCl (Prazosin) 2 mg HS PO 07/15/17 21:00 08/14/17 20:59 Methylprednisolone (Medrol Tab) 8 mg 07,21 PO 07/15/17 21:00 07/15/17 21:01 Methylprednisolone (Medrol Tab) 4 mg 13,18 PO 07/15/17 13:00 07/15/17 18:01 Methylprednisolone (Medrol Tab) 4 mg 07,13,18 PO 07/16/17 07:00 07/16/17 18:01 Methylprednisolone (Medrol Tab) 8 mg HS PO 07/16/17 21:00 07/16/17 21:01 Methylprednisolone (Medrol Tab) 4 mg 07,13,18,21 PO 07/17/17 07:00 2/4/18 21:01 Methylprednisolone (Medrol Tab) 4 mg 07,13,21 PO 07/18/17 07:00 07/18/17 21:01 Methylprednisolone (Medrol Tab) 4 mg 07,21 PO 07/19/17 07:00 07/19/17 21:01 Methylprednisolone (Medrol Tab) 4 mg 07 PO 07/20/17 07:00 07/20/17 07:01 Physical Exam Vital Signs (Past 24 Hrs): Date Time Temp Pulse Resp B/P (MAP) Pulse Ox O2 Delivery O2 Flow Rate FiO2 07/15/17 06:25 36.4 55 18 123/76 (92) 98 Room Air 07/15/17 00:00 Room Air 07/14/17 22:42 36.7 70 16 135/67 95 Room Air 07/14/17 22:28 36.7 73 20 135/67 (89) 95 Room Air 07/14/17 22:02 75 18 129/70 95 07/14/17 21:08 110 18 98/57 97 Room Air 07/14/17 18:38 117 16 119/60 94 Room Air 07/14/17 16:34 63 18 149/89 99 Room Air 07/14/17 15:52 54 07/14/17 15:45 36.9 55 18 134/86 100 Room Air Physical Exam: Constitutional: appearance nourished, healthy and obese Ears, Nose, Mouth and Throat: mucous membranes moist, no injection and skin normal, eyes normal Cardiovascular: normal S-1 and S-2 and regular rate and rhythm Respiratory: clear to auscultation (CTA) and no rales, ronchi or wheeze Musculoskeletal: no peripheral edema and good distal pulses Skin: no stigmata of neurocutaneous disease noted and normal and intact Eyes: extraocular muscles intact (EOMI) and pupils equal, round and reactive to light (PERRL), left eye lateral ptosis NEUROLOGIC EXAMINATION: Mental status: Alert and interactive Oriented to full date and location Oriented to person Speech fluent with no evidence of aphasia Cranial Nerves no facial asymmetry Reflexes: Deep tendon reflexes were symmetrical and graded 2/5. patellar brisk bilaterally Sensory: loss of sensation to light touch Coordination: finger to nose no bipass Gait/Stance: lying in bed Motor: Negative for pronator drift of out stretched arms with eyes closed. 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 5/5, lower extremities with pointing toes distally only flex manually slightly Laboratory Results Past 24 Hours: 07/14/17 16:35 Red Blood Count 4.18, Mean Corpuscular Volume 88.3, Mean Corpuscular Hemoglobin 29.4, Mean Corpuscular Hemoglobin Concent 33.3, Mean Platelet Volume 8.9, Neutrophils (%) (Auto) 65.6, Lymphocytes (%) (Auto) 25.1, Monocytes (%) (Auto) 6.1, Eosinophils (%) (Auto) 1.8, Basophils (%) (Auto) 0.5, Neutrophils # (Auto) 5.71, Lymphocytes # (Auto) 2.19, Monocytes # (Auto) 0.53, Eosinophils # (Auto) 0.16, Basophils # (Auto) 0.04 07/14/17 16:35 Test 07/14/17 16:35 07/14/17 16:46 07/14/17 23:00 White Blood Count 8.71 K/uL (4.8-10.8) Red Blood Count 4.18 M/uL (4.2-5.4) Hemoglobin 12.3 g/dL (12.0-16.0) Hematocrit 36.9 % (37-47) Mean Corpuscular Volume 88.3 fL (80-100) Mean Corpuscular Hemoglobin 29.4 pg (25-34) Mean Corpuscular Hemoglobin Concent 33.3 g/dl (32-36) Platelet Count 315 K/uL (130-400) Mean Platelet Volume 8.9 fL (7.4-10.4) Neutrophils (%) (Auto) 65.6 % Lymphocytes (%) (Auto) 25.1 % Monocytes (%) (Auto) 6.1 % Eosinophils (%) (Auto) 1.8 % Basophils (%) (Auto) 0.5 % Neutrophils # (Auto) 5.71 K/uL (1.4-6.5) Lymphocytes # (Auto) 2.19 K/uL (1.2-3.4) Monocytes # (Auto) 0.53 K/uL (0.11-0.59) Eosinophils # (Auto) 0.16 K/uL (0-0.5) Basophils # (Auto) 0.04 K/uL (0-0.2) RDW Standard Deviation 50.0 fL (36.4-46.3) RDW Coefficient of Variation 15.5 % (11.5-14.5) Immature Granulocyte % (Auto) 0.9 % Immature Granulocyte # (Auto) 0.08 K/uL (0.00-0.02) Anion Gap 6.0 mmol/L (3-11) Est Creatinine Clear Calc Drug Dose 102.9 ml/min Estimated GFR () 96.8 Estimated GFR (Non- 83.6 BUN/Creatinine Ratio 16.2 (10-20) Calcium Level 8.8 mg/dl (8.5-10.1) Total Bilirubin 0.2 mg/dl (0.2-1) Direct Bilirubin < 0.1 mg/dl (0-0.2) Aspartate Amino Transf (AST/SGOT) 19 U/L (15-37) Alanine Aminotransferase (ALT/SGPT) 38 U/L (12-78) Alkaline Phosphatase 110 U/L (45-117) Total Protein 7.5 gm/dl (6.4-8.2) Albumin 3.3 gm/dl (3.4-5.0) Lipase 225 U/L (73-393) Urine Color YELLOW Urine Appearance CLEAR (CLEAR) Urine pH 8.0 (4.5-7.5) Urine Specific [place] 1.011 (1.000-1.030) Urine Protein NEG (NEG) Urine Glucose (UA) NEG (NEG) Urine Ketones NEG (NEG) Urine Occult Blood NEG (NEG) Urine Nitrite NEG (NEG) Urine Bilirubin NEG (NEG) Urine Urobilinogen NEG (NEG) Urine Leukocyte Esterase NEG (NEG) Prothrombin Time 9.7 SECONDS (9.0-12.0) Prothromb Time International Ratio 0.9 (0.9-1.1) Activated Partial Thromboplast Time 24.8 SECONDS (21.0-31.0) Partial Thromboplastin Ratio 1.0 Imaging MRIs c spine- No acute abnormality within the cervical spine. Unchanged appearance of the cervical spine since MRI of September 13, 2015 with mild multilevel degenerative disc disease at C4-C5 and C5-C6. Patent central canal. Normal cervical cord signal and caliber. lumbar spine- change in appearance of the lumbar spine since MRI of July. No acute abnormality within the lumbar spine. No change in a central disc protrusion at L3-L4 without central canal stenosis. Mild bilateral neural foraminal stenosis at this level. T spine- No fracture or subluxation within the thoracic spine. Impression 31 year old female with CP s/p fall -MRI negative for acute injury Plan 1. would not start narcotics treat with steroid taper etc 2. question why baclofen was changed to Flexeril -baclofen is more effective in spasms 3. gabapentin -was started as out patient and according to patient -300 mg BID this is a TID drug which may be more helpful would increase gradually 4. PT/OT for discharge needs 5. if unable to move legs should be considered for rehab will need to consider SNF if [facility] is unwilling to take her for rehab 6. psychiatry should be involved do to the past history of depression/anxiety- secondary gain from previous visits 7. will be available for further input if needed I have seen and discussed above patient with Dr Cristobal Painter, neurology Patient known to me from the prior stay in 2016 with a very similar presentation of subacute to acute worsening in her longstanding bilateral spastic paraparesis and urinary retention with no clear recent trauma ( [facility] now denises a significant fall as the precipitating event ) and neagative spinal imaging for cord compromise or increeased signal Now back to her prior desires for regular narcotic analgesics but we need to resist this if possible as in the past their use simply prolonged her rosd to recovery exam again shows the severe spasticity of both legs ( some of this however may well be volitional as the tome is variable and she can be to some degree distracted out of maintaining it and toes are at most neutral ) Management may well prove difficult but would suggest referral for rehab stay or ecf stay which ws offered lst visit and refused Would make no major medication changes at this time but consider restart of low dose baclofen or even zanaflex will follow up tomorrow Cristobal Painter MD
[2017-07-15] MEDS: METHYLPREDNISOLONE 4 MG TAB PO SCH ×2 (13:41→18:07)
--- NOTE | 2017-07-15 13:48 | Progress Note ---
Medicine Progress Note Date & Time of Visit: Jul 15, 2017 at 13:33. Subjective Pt was seen and examined Lying in bed with no distress Pt said that she continue to have numbness/ weakness in her lower extremity She said that she is having pain and the pain med help Denies any chest pain, palpitation, bladder and bowel loss Objective Last 8 Hrs Date Time Temp Pulse Resp B/P (MAP) Pulse Ox O2 Delivery O2 Flow Rate FiO2 07/15/17 08:00 98 Room Air 07/15/17 06:25 36.4 55 18 123/76 (92) 98 Room Air Physical Exam: General- no acute distress/obese Head- atraumatic Eyes- PERRL, EOMI ENT- oropharynx clear Neck- supple, no JVD Lungs- clear to auscultation Heart- regular rhythm; no murmur Abdomen- normal bowel sounds, soft Extremities- no calf tenderness, no edema Neuro- alert, oriented x 3; PERRL, EOMI; no facial palsy; no dysarthria; unable to move B/L LE, no sensation in b/L LE Skin- warm & dry Laboratory Results: Last 24 Hours Test 07/14/17 16:35 07/14/17 16:46 07/14/17 23:00 White Blood Count 8.71 K/uL Red Blood Count 4.18 M/uL Hemoglobin 12.3 g/dL Hematocrit 36.9 % Mean Corpuscular Volume 88.3 fL Mean Corpuscular Hemoglobin 29.4 pg Mean Corpuscular Hemoglobin Concent 33.3 g/dl Platelet Count 315 K/uL Mean Platelet Volume 8.9 fL Neutrophils (%) (Auto) 65.6 % Lymphocytes (%) (Auto) 25.1 % Monocytes (%) (Auto) 6.1 % Eosinophils (%) (Auto) 1.8 % Basophils (%) (Auto) 0.5 % Neutrophils # (Auto) 5.71 K/uL Lymphocytes # (Auto) 2.19 K/uL Monocytes # (Auto) 0.53 K/uL Eosinophils # (Auto) 0.16 K/uL Basophils # (Auto) 0.04 K/uL RDW Standard Deviation 50.0 fL RDW Coefficient of Variation 15.5 % Immature Granulocyte % (Auto) 0.9 % Immature Granulocyte # (Auto) 0.08 K/uL Sodium Level 141 mmol/L Potassium Level 4.3 mmol/L Chloride Level 113 mmol/L Carbon Dioxide Level 22 mmol/L Anion Gap 6.0 mmol/L Blood Urea Nitrogen 15 mg/dl Creatinine 0.92 mg/dl Est Creatinine Clear Calc Drug Dose 102.9 ml/min Estimated GFR () 96.8 Estimated GFR (Non- 83.6 BUN/Creatinine Ratio 16.2 Random Glucose 79 mg/dl Calcium Level 8.8 mg/dl Total Bilirubin 0.2 mg/dl Direct Bilirubin < 0.1 mg/dl Aspartate Amino Transf (AST/SGOT) 19 U/L Alanine Aminotransferase (ALT/SGPT) 38 U/L Alkaline Phosphatase 110 U/L Total Protein 7.5 gm/dl Albumin 3.3 gm/dl Lipase 225 U/L Urine Color YELLOW Urine Appearance CLEAR Urine pH 8.0 Urine Specific [place] 1.011 Urine Protein NEG Urine Glucose (UA) NEG Urine Ketones NEG Urine Occult Blood NEG Urine Nitrite NEG Urine Bilirubin NEG Urine Urobilinogen NEG Urine Leukocyte Esterase NEG Prothrombin Time 9.7 SECONDS Prothromb Time International Ratio 0.9 Activated Partial Thromboplast Time 24.8 SECONDS Partial Thromboplastin Ratio 1.0 Assessment & Plan Low Back Pain/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 MRI of cervical, thoracic, lumbar spine negative for any acute process No bladder/Bowel loss On pain control with morphine Continue gabapentin Case discussed with neuro recommended to avoid narcotic as possible Will transition to tramadol tomorrow On Lidocaine patch Continue PT/OT HTN Lisinopril on hold due to low BP BP stable Will resume lisinopril tomorrow Depression/Anxiety continue home medications DVT ppx Lovenox FULL CODE Current Inpatient Medications: Current Inpatient Medications Medications (Trade) Dose Ordered Sig/[place] Route Start Time Stop Time Status Last Admin Dose Admin Acetaminophen (Tylenol Tab) 650 mg Q4H PRN PO 07/14/17 21:15 08/13/17 21:14 Buspirone HCl (Buspar Tab) 10 mg TID PO 07/15/17 08:00 08/14/17 08:59 07/15/17 07:49 10 MG Pantoprazole Sodium (Protonix Tab) 40 mg QAM PO 07/15/17 08:00 08/14/17 07:59 07/15/17 07:52 40 MG Albuterol (Ventolin Hfa Inhaler) 2 puffs QID PRN INH 2/1/18 21:15 08/13/17 21:14 Cetirizine HCl (zyrTEC TAB) 10 mg QAM PO 07/15/17 08:00 08/14/17 08:59 07/15/17 07:54 10 MG Cyclobenzaprine HCl (Flexeril Tab) 10 mg TID PO 07/15/17 08:00 08/14/17 08:59 07/15/17 07:51 10 MG Diazepam (Valium Tab) 5 mg BID PO 07/15/17 08:00 08/14/17 08:59 07/15/17 07:40 5 MG Duloxetine HCl (Cymbalta Cap) 30 mg HS PO 07/15/17 21:00 08/14/17 20:59 Duloxetine HCl (Cymbalta Cap) 60 mg QAM PO 07/15/17 08:00 08/14/17 08:59 07/15/17 07:50 60 MG Hydroxyzine HCl (Vistaril Tab) 50 mg HS PO 07/15/17 21:00 08/14/17 20:59 Montelukast Sodium (Singulair Tab) 10 mg HS PO 07/15/17 21:00 08/14/17 20:59 Ondansetron HCl (Zofran Odt) 4 mg Q6H PRN SL 07/14/17 21:15 08/13/17 21:14 Sertraline HCl (Zoloft Tab) 75 mg QAM PO 07/15/17 08:00 08/14/17 08:59 07/15/17 07:53 75 MG Topiramate (Topamax Tab) 200 mg BID PO 07/15/17 08:00 08/14/17 08:59 07/15/17 07:52 200 MG Gabapentin (Neurontin Tab) 600 mg BID PO 07/15/17 08:00 08/14/17 08:59 07/15/17 07:51 600 MG Morphine Sulfate (MoRPHine SULFATE INJ) 1 mg Q4 PRN IV 07/14/17 21:15 07/28/17 21:14 07/15/17 12:08 1 MG Enoxaparin Sodium (Lovenox Inj) 40 mg Q24H SQ 07/15/17 06:00 08/14/17 05:59 07/15/17 07:48 40 MG Ondansetron HCl (Zofran Inj) 4 mg Q6H PRN IV 07/14/17 21:30 08/13/17 21:29 Diphenhydramine HCl (Benadryl Inj) 50 mg TID PRN IV 07/14/17 21:30 08/13/17 21:29 07/15/17 07:45 50 MG Miscellaneous Information (Order Awaiting Action) 1 ea QS N/A 07/15/17 00:00 08/14/17 00:00 Miscellaneous (Iv Fluids Completed) 1 ea PRN PRN N/A 07/15/17 00:30 07/15/18 00:29 Prazosin HCl (Prazosin) 2 mg HS PO 07/15/17 21:00 08/14/17 20:59 Methylprednisolone (Medrol Tab) 8 mg 07,21 PO 07/15/17 21:00 07/15/17 21:01 Methylprednisolone (Medrol Tab) 4 mg 13,18 PO 07/15/17 13:00 07/15/17 18:01 Methylprednisolone (Medrol Tab) 4 mg 07,13,18 PO 07/16/17 07:00 07/16/17 18:01 Methylprednisolone (Medrol Tab) 8 mg HS PO 07/16/17 21:00 07/16/17 21:01 Methylprednisolone (Medrol Tab) 4 mg 07,13,18,21 PO 07/17/17 07:00 07/17/17 21:01 Methylprednisolone (Medrol Tab) 4 mg 07,13,21 PO 07/18/17 07:00 07/18/17 21:01 Methylprednisolone (Medrol Tab) 4 mg 07,21 PO 07/19/17 07:00 07/19/17 21:01 Methylprednisolone (Medrol Tab) 4 mg 07 PO 07/20/17 07:00 07/20/17 07:01
[2017-07-15 15:47] VITALS: BP 148/89; PULSE 54; TEMP 36.5; O2SAT 100
[2017-07-15 16:00] VITALS: O2SAT 100
[2017-07-15 20:00] VITALS: O2SAT 100
[2017-07-15] MEDS: MONTELUKAST SOD 10 MG TAB PO SCH (20:54)
[2017-07-15] MEDS: hydrOXYzine HCL 25 MG TAB PO SCH (20:55)
[2017-07-15] MEDS: PRAZOSIN HCL 1 MG CAP PO SCH (20:56)
[2017-07-15] MEDS: DULOXETINE (CYMBALTA) 30 MG CAP PO SCH (20:56)
[2017-07-15] MEDS: ACETAMINOPHEN 325 MG TAB PO PRN (23:24)
[2017-07-16] VITALS: O2SAT 100
[2017-07-16] MEDS: MoRPHine SULFATE 2 MG/ML CARP IV PRN ×4 (00:23→18:34)
[2017-07-16 00:30] VITALS: BP 117/72; PULSE 95; TEMP 36.5; O2SAT 94
[2017-07-16] MEDS: METHYLPREDNISOLONE 4 MG TAB PO SCH ×3 (06:04→17:43)
[2017-07-16] MEDS: ENOXAPARIN 40 MG/0.4 ML SYR SQ SCH (06:04)
[2017-07-16] MEDS ORDERED: METHYLPREDNISOLONE 4 MG TAB PO SCH ×2 (07:00→21:00)
[2017-07-16 07:58] VITALS: BP 144/74; PULSE 53; TEMP 36.7; O2SAT 93
[2017-07-16] MEDS: DULOXETINE HCL 60 MG CAP PO SCH (08:37)
[2017-07-16] MEDS: PANTOprazole SOD 40 MG TAB PO SCH (08:38)
[2017-07-16] MEDS: GABAPENTIN 600 MG TAB PO SCH (08:38)
[2017-07-16] MEDS: CYCLOBENZAPRINE HCL 10 MG TAB PO SCH ×3 (08:38→20:50)
[2017-07-16] MEDS: DIAZEPAM 5MG TAB PO SCH ×2 (08:39→20:47)
[2017-07-16] MEDS: SERTRALINE HCL 50 MG TAB PO SCH (08:39)
[2017-07-16] MEDS: TOPIRAMATE 100 MG TAB PO SCH ×2 (08:39→20:49)
[2017-07-16] MEDS: CETIRIZINE HCL 10 MG TAB PO SCH (08:40)
[2017-07-16] MEDS: ACETAMINOPHEN 325 MG TAB PO PRN ×2 (10:57→17:43)
--- NOTE | 2017-07-16 13:35 | PROGRESS NOTE ---
DATE: 07/16/2017 SUBJECTIVE: Gricel is a 31-year-old woman with cerebral palsy, bilateral lower extremity chronic spasticity, diffuse bilateral leg weakness, chronic back pain, cervical pain, chest wall pain, history of dehydration and diarrhea, and drug seeking behavior. She has frequent falls. She lives at home in [facility] and requires a fair amount of assistance, and at best can walk perhaps 50 feet using her walker without having to rest. It sounds as though she has been declining over the past several weeks, although the initial history suggests that she had an acute fall but whatever the case, she had a sudden step off in her lower extremity weakness, presented to the ER with more pain and inability to use her lower extremities, increased spasticity of lower extremities and had imaging studies of spine; all of which were negative at least in terms revealing no evidence for compressive myelopathy or intrinsic cord lesion. She is now in the hospital. She has a lot of pain and is requesting narcotic analgesics frequently. I saw her yesterday with Maureen Bateman, and Dr. Vasquez and I discussed the case this morning. On exam, she appears awake, alert, oriented in 3 spheres, and while she claims to be in pain, her affect seems to be detached from this and she is actually smiling at times and quite pleasant when talking on the phone. She moves her upper extremities well. Cranial nerves are normal. Lower extremities are very stiff, held on extension with plantar flexion of both feet. She can wiggle her toes a little bit but cannot or will not raise her legs against gravity and I cannot break down the contractions at this time, although yesterday with some distraction I thought the tone did break a little bit ____ at least on the right leg. Reflexes are detectable because of the hypertonicity. Toe signs are neutral. There is no Ramon sign. Upper extremity reflexes are fine as a strength and sensation in the lower extremities is off to all modalities up to about the thighs. There is no real sensory level. There is no clear history for sphincter dysfunction, although she is catheterized at present, which often happens when she comes in to the hospital. She had a very similar presentation several years ago and was actually at [facility] for several weeks I believe with intractable pain. There was a lot of difficulty getting her placed, but she then suddenly turned around her lower extremity function, got back to old baseline. She was able to be discharged home and apparently has been free of neurologic care and attention for several years now. I believe that at one point she was on Zanaflex, which apparently was ineffective in the past. Baclofen was stopped. She is now on Flexeril and host of other medications as per the EMR. Right now we are going to try reintroducing Zanaflex in low doses 2 mg twice a day, we are going to move her Neurontin up to 300 mg 3 times a day rather than 600 twice a day, we are going to try to minimize the amount of narcotic analgesics and transition her over to tramadol which itself is also an opiate but of lesser long-term addictive potential, and we will try to get [facility] involved to see if some time the rehabilitation institution might help here. At some point, we may have to ask pain management to get involved but they had been involved in the past without any real added value to the case, and frankly she does not have a single point where an injection would be of value. I do not think she is a great candidate for baclofen pump or even a pain pump at this point in time. Hopefully, things will begin to turnaround tomorrow or Tuesday, but for now the plan is to gradually reintroduce Zanaflex and continue most of the other medications and go from there. JACOBY
[2017-07-16] MEDS: GABAPENTIN 300 MG CAP PO SCH ×2 (14:00→20:48)
[2017-07-16] MEDS ORDERED: NURSING VERBAL MED ORDER ONE (15:00)
[2017-07-16 15:51] VITALS: BP 136/76; PULSE 82; TEMP 36.7; O2SAT 96
--- NOTE | 2017-07-16 16:25 | Progress Note ---
Medicine Progress Note Date & Time of Visit: Jul 16, 2017 at 16:16. Subjective Pt was seen and examined Lying in bed with no distress when I entered the her room she has playing on her cell phone She is very comfortable in bed She said that she cannot move and feel her legs She continues to request for the narcotic she said that tramadol does not help. She said that she had Percocet in the past and worked She continues to worry about when I am going to D/C the IV morphine so she knows when to get the last dose Denies any chest pain, palpitation, SOB and dizziness Objective Last 8 Hrs Date Time Temp Pulse Resp B/P (MAP) Pulse Ox O2 Delivery O2 Flow Rate FiO2 07/16/17 15:51 36.7 82 18 136/76 (96) 96 Room Air Physical Exam: General- no acute distress/obese Head- atraumatic Eyes- PERRL, EOMI ENT- oropharynx clear Neck- supple, no JVD Lungs- clear to auscultation Heart- regular rhythm; no murmur Abdomen- normal bowel sounds, soft Extremities- no calf tenderness, no edema Neuro- alert, oriented x 3; PERRL, EOMI; no facial palsy; no dysarthria; unable to move B/L LE, no sensation in b/L LE, feet are hyperextended/contraction Skin- warm & dry Assessment & Plan Low Back Pain/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 MRI of cervical, thoracic, lumbar spine negative for any acute process No bladder/Bowel loss On pain control with morphine Gabapentin changed to 300mg TID Case discussed with neuro recommended to avoid narcotic as possible She said that tramadol does not help in the past' Will d/c morphine and start on Percocet and will titrate off by Tuesday starting on Zanaflex by neurology Baclofen discontinue On Lidocaine patch Continue PT/OT HTN Lisinopril was on hold due to low BP Resume lisinorpil BP stable Depression/Anxiety continue home medications stable DVT ppx Lovenox FULL CODE Current Inpatient Medications: Current Inpatient Medications Medications (Trade) Dose Ordered Sig/[place] Start Time Stop Time Status Last Admin Dose Admin Acetaminophen (Tylenol Tab) 650 mg Q4H PRN PO 07/14/17 21:15 08/13/17 21:14 07/16/17 10:57 650 MG Buspirone HCl (Buspar Tab) 10 mg TID PO 07/15/17 08:00 08/14/17 08:59 07/16/17 14:27 10 MG Pantoprazole Sodium (Protonix Tab) 40 mg QAM PO 07/15/17 08:00 08/14/17 07:59 07/16/17 08:38 40 MG Albuterol (Ventolin Hfa Inhaler) 2 puffs QID PRN INH 07/14/17 21:15 08/13/17 21:14 Cetirizine HCl (zyrTEC TAB) 10 mg QAM PO 07/15/17 08:00 08/14/17 08:59 07/16/17 08:40 10 MG Cyclobenzaprine HCl (Flexeril Tab) 10 mg TID PO 07/15/17 08:00 08/14/17 08:59 07/16/17 14:27 10 MG Diazepam (Valium Tab) 5 mg BID PO 07/15/17 08:00 08/14/17 08:59 07/16/17 08:39 5 MG Duloxetine HCl (Cymbalta Cap) 30 mg HS PO 07/15/17 21:00 08/14/17 20:59 07/15/17 20:56 30 MG Duloxetine HCl (Cymbalta Cap) 60 mg QAM PO 07/15/17 08:00 08/14/17 08:59 07/16/17 08:37 60 MG Hydroxyzine HCl (Vistaril Tab) 50 mg HS PO 07/15/17 21:00 08/14/17 20:59 07/15/17 20:55 50 MG Montelukast Sodium (Singulair Tab) 10 mg HS PO 07/15/17 21:00 08/14/17 20:59 07/15/17 20:54 10 MG Ondansetron HCl (Zofran Odt) 4 mg Q6H PRN SL 07/14/17 21:15 08/13/17 21:14 Sertraline HCl (Zoloft Tab) 75 mg QAM PO 07/15/17 08:00 08/14/17 08:59 07/16/17 08:39 75 MG Topiramate (Topamax Tab) 200 mg BID PO 07/15/17 08:00 08/14/17 08:59 07/16/17 08:39 200 MG Enoxaparin Sodium (Lovenox Inj) 40 mg Q24H SQ 07/15/17 06:00 08/14/17 05:59 07/16/17 06:04 40 MG Ondansetron HCl (Zofran Inj) 4 mg Q6H PRN IV 07/14/17 21:30 08/13/17 21:29 Miscellaneous Information (Order Awaiting Action) 1 ea QS N/A 07/15/17 00:00 08/14/17 00:00 Miscellaneous (Iv Fluids Completed) 1 ea PRN PRN N/A 07/15/17 00:30 07/15/18 00:29 Prazosin HCl (Prazosin) 2 mg HS PO 07/15/17 21:00 08/14/17 20:59 07/15/17 20:56 2 MG Methylprednisolone (Medrol Tab) 4 mg 07,13,18 PO 07/16/17 07:00 07/16/17 18:01 07/16/17 12:39 4 MG Methylprednisolone (Medrol Tab) 8 mg HS PO 07/16/17 21:00 07/16/17 21:01 Methylprednisolone (Medrol Tab) 4 mg 07,13,18,21 PO 07/17/17 07:00 07/17/17 21:01 Methylprednisolone (Medrol Tab) 4 mg 07,13,21 PO 07/18/17 07:00 07/18/17 21:01 Methylprednisolone (Medrol Tab) 4 mg 07,21 PO 07/19/17 07:00 07/19/17 21:01 Methylprednisolone (Medrol Tab) 4 mg 07 PO 07/20/17 07:00 07/20/17 07:01 Morphine Sulfate (MoRPHine SULFATE INJ) 1 mg Q6 PRN IV 07/15/17 13:45 07/28/17 21:14 07/16/17 12:36 1 MG Diphenhydramine HCl (Benadryl Cap) 50 mg Q8H PRN PO 07/15/17 13:45 08/14/17 13:44 07/15/17 16:51 50 MG Tizanidine HCl (Zanaflex Tab) 2 mg BID PO 07/16/17 20:00 08/15/17 19:59 Gabapentin (Neurontin Cap) 300 mg TID PO 07/16/17 14:00 08/15/17 13:59 Polyethylene (Miralax Powder Packet) 17 gm QAM PO 07/17/17 08:00 08/16/17 07:59
[2017-07-16] MEDS: hydrOXYzine HCL 25 MG TAB PO SCH (20:49)
[2017-07-16] MEDS: MONTELUKAST SOD 10 MG TAB PO SCH (20:51)
[2017-07-16] MEDS: DULOXETINE (CYMBALTA) 30 MG CAP PO SCH (20:52)
[2017-07-16] MEDS: TiZANIdine 1 MG TAB PO SCH (20:52)
[2017-07-16] MEDS: PRAZOSIN HCL 1 MG CAP PO SCH (20:53)
[2017-07-16 21:00] VITALS: O2SAT 100
[2017-07-16] MEDS: OXYCODONE/ACETAMINOPHEN 5-325 TAB PO PRN (21:44)
[2017-07-16 23:50] VITALS: BP 132/80; PULSE 81; TEMP 36.6; O2SAT 95
[2017-07-17] MEDS: OXYCODONE/ACETAMINOPHEN 5-325 TAB PO PRN ×3 (04:19→19:36)
[2017-07-17] MEDS: ENOXAPARIN 40 MG/0.4 ML SYR SQ SCH (06:36)
[2017-07-17] MEDS: METHYLPREDNISOLONE 4 MG TAB PO SCH ×4 (06:38→19:40)
[2017-07-17] MEDS ORDERED: METHYLPREDNISOLONE 4 MG TAB PO SCH (07:00)
[2017-07-17] MEDS: ONDANSETRON 4MG OD TAB SL PRN (07:47)
[2017-07-17 07:58] VITALS: BP 127/84; PULSE 87; TEMP 36.9; O2SAT 97
[2017-07-17] MEDS: DULOXETINE HCL 60 MG CAP PO SCH (08:29)
[2017-07-17] MEDS: CYCLOBENZAPRINE HCL 10 MG TAB PO SCH ×3 (08:29→19:40)
[2017-07-17] MEDS: TOPIRAMATE 100 MG TAB PO SCH ×2 (08:30→19:43)
[2017-07-17] MEDS: GABAPENTIN 300 MG CAP PO SCH ×3 (08:30→19:40)
[2017-07-17] MEDS: PANTOprazole SOD 40 MG TAB PO SCH (08:30)
[2017-07-17] MEDS: TiZANIdine 1 MG TAB PO SCH ×2 (08:31→19:44)
[2017-07-17] MEDS: DIAZEPAM 5MG TAB PO SCH ×2 (08:31→19:51)
[2017-07-17] MEDS: LISINOPRIL 10 MG TAB PO SCH (08:32)
[2017-07-17] MEDS: SERTRALINE HCL 50 MG TAB PO SCH (08:32)
[2017-07-17] MEDS: POLYETHYLENE (MIRALAX) 17 GM PACK PO SCH (08:33)
[2017-07-17] MEDS: CETIRIZINE HCL 10 MG TAB PO SCH (08:33)
--- NOTE | 2017-07-17 12:20 | PROGRESS NOTE ---
DATE: 07/17/2017 SUBJECTIVE: Gricel looks much the same today. Her legs are held in a very tense posture. I cannot break down the tone in the knees or the ankles. The left foot is now a little more dorsiflexed rather than plantar flexed and this is the change and she can wiggle her right toes, actually in relatively facile fashion when attention was diverted away from them. She still has a Pedraza catheter in place, she continues to have global back pain. Dr. Vasquez is going to back down on morphine and is going to switch her tramadol tomorrow. Thus far, this seems to be acceptable to her, she is not requesting updates from the nurses about what her next dose of morphine is due. She is on Neurontin 3 times a day and I started the Zanaflex 2 mg twice a day, I am not sure either one is going to make a change in any of this. Plans are to try to get into a rehabilitation facility, but it looks as though she is going to be turned down by most of them and an extended care facility with rehabilitation services might be what needs to be her destination. The patient; however, states she wants to go home as this is her long-term plan and my suspicions are she she will do pretty much which did last time and that her leg function will begin to improve over the next few days to the point that she will be able to be discharged. I am not sure what needs to be done with her catheter. My suspicions are her bladder function is normal, but she has had a catheter in place for some time and withdrawing it may prove to be a problem. Urology possibly could be consulted in this regard, but I believe she has seen them in the past and there has been no clearcut organic neurologic pathology found. I do not know how much of an upper motor neuron process is involved in her bladder dysfunction any way, but at baseline she is certainly not doing self catheterization, apparently does not get infections and sphincter function seems to be normal. 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 I am going to be off service tomorrow. Dr. Bowie who seen her in the past, will be assuming her care and Maureen Bateman will of course be back. 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 She certainly has gone several years without neurologic attention now, and I suspect this will happen again in the future. JACOBY
--- NOTE | 2017-07-17 15:00 | Progress Note ---
Medicine Progress Note Date & Time of Visit: Jul 17, 2017 at 14:50. Subjective Pt was seen and examined Lying in bed with no distress Pt was sleeping this morning I informed her that i am going to titrate percocet to q8h She continues to request the narcotic around the clock She said that she is starting to wiggle the toes slightly Continue unable to move or feels lower extremities Denies any chest pain, palpitation, dizziness and SOB Objective Last 8 Hrs Date Time Temp Pulse Resp B/P (MAP) Pulse Ox O2 Delivery O2 Flow Rate FiO2 07/17/17 08:00 Room Air 07/17/17 07:58 36.9 87 18 127/84 (98) 97 Room Air Physical Exam: General- no acute distress/obese Head- atraumatic Eyes- PERRL, EOMI ENT- oropharynx clear Neck- supple, no JVD Lungs- clear to auscultation Heart- regular rhythm; no murmur Abdomen- normal bowel sounds, soft Extremities- no calf tenderness, no edema Neuro- alert, oriented x 3; PERRL, EOMI; no facial palsy; no dysarthria; unable to move B/L LE, slightly wiggle the toes, no sensation in b/L LE, feet are hyperextended/contraction Skin- warm & dry Assessment & Plan Low Back Pain/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 MRI of cervical, thoracic, lumbar spine negative for any acute process No bladder/Bowel loss On pain control with morphine Gabapentin changed to 300mg TID Case discussed with neuro recommended to avoid narcotic as possible She said that tramadol does not help in the past' Morphine D/C On percocet 5mg q8hr Plan to transition to tramadol tomorrow Continue Zanaflex that was starting by neurology Continue Cymbalta Baclofen discontinued On Lidocaine patch Continue PT/OT Waiting for placement HTN Lisinopril was on hold due to low BP Resume lisinorpil BP stable Depression/Anxiety On Cymbalta and diazepam continue home medications stable DVT ppx Lovenox FULL CODE Consultants: Neuro Current Inpatient Medications: Current Inpatient Medications Medications (Trade) Dose Ordered Sig/[place] Start Time Stop Time Status Last Admin Dose Admin Acetaminophen (Tylenol Tab) 650 mg Q4H PRN PO 07/14/17 21:15 08/13/17 21:14 07/16/17 17:43 650 MG Buspirone HCl (Buspar Tab) 10 mg TID PO 07/15/17 08:00 08/14/17 08:59 07/17/17 13:44 10 MG Pantoprazole Sodium (Protonix Tab) 40 mg QAM PO 07/15/17 08:00 08/14/17 07:59 07/17/17 08:30 40 MG Albuterol (Ventolin Hfa Inhaler) 2 puffs QID PRN INH 07/14/17 21:15 08/13/17 21:14 Cetirizine HCl (zyrTEC TAB) 10 mg QAM PO 07/15/17 08:00 08/14/17 08:59 07/17/17 08:33 10 MG Cyclobenzaprine HCl (Flexeril Tab) 10 mg TID PO 07/15/17 08:00 08/14/17 08:59 07/17/17 13:45 10 MG Diazepam (Valium Tab) 5 mg BID PO 07/15/17 08:00 08/14/17 08:59 07/17/17 08:31 5 MG Duloxetine HCl (Cymbalta Cap) 30 mg HS PO 07/15/17 21:00 08/14/17 20:59 07/16/17 20:52 30 MG Duloxetine HCl (Cymbalta Cap) 60 mg QAM PO 07/15/17 08:00 08/14/17 08:59 07/17/17 08:29 60 MG Hydroxyzine HCl (Vistaril Tab) 50 mg HS PO 07/15/17 21:00 08/14/17 20:59 07/16/17 20:49 50 MG Montelukast Sodium (Singulair Tab) 10 mg HS PO 07/15/17 21:00 08/14/17 20:59 07/16/17 20:51 10 MG Ondansetron HCl (Zofran Odt) 4 mg Q6H PRN SL 07/14/17 21:15 08/13/17 21:14 07/17/17 07:47 4 MG Sertraline HCl (Zoloft Tab) 75 mg QAM PO 07/15/17 08:00 08/14/17 08:59 07/17/17 08:32 75 MG Topiramate (Topamax Tab) 200 mg BID PO 07/15/17 08:00 08/14/17 08:59 07/17/17 08:30 200 MG Enoxaparin Sodium (Lovenox Inj) 40 mg Q24H SQ 07/15/17 06:00 08/14/17 05:59 07/17/17 06:36 40 MG Ondansetron HCl (Zofran Inj) 4 mg Q6H PRN IV 07/14/17 21:30 08/13/17 21:29 Miscellaneous Information (Order Awaiting Action) 1 ea QS N/A 07/15/17 00:00 08/14/17 00:00 Miscellaneous (Iv Fluids Completed) 1 ea PRN PRN N/A 07/15/17 00:30 07/15/18 00:29 Prazosin HCl (Prazosin) 2 mg HS PO 07/15/17 21:00 08/14/17 20:59 07/16/17 20:53 2 MG Methylprednisolone (Medrol Tab) 4 mg 07,13,18,21 PO 07/17/17 07:00 07/17/17 21:01 07/17/17 13:44 4 MG Methylprednisolone (Medrol Tab) 4 mg 07,13,21 PO 07/18/17 07:00 07/18/17 21:01 Methylprednisolone (Medrol Tab) 4 mg 07,21 PO 07/19/17 07:00 07/19/17 21:01 Methylprednisolone (Medrol Tab) 4 mg 07 PO 07/20/17 07:00 07/20/17 07:01 Diphenhydramine HCl (Benadryl Cap) 50 mg Q8H PRN PO 07/15/17 13:45 08/14/17 13:44 07/15/17 16:51 50 MG Tizanidine HCl (Zanaflex Tab) 2 mg BID PO 07/16/17 20:00 08/15/17 19:59 07/17/17 08:31 2 MG Gabapentin (Neurontin Cap) 300 mg TID PO 07/16/17 14:00 08/15/17 13:59 07/17/17 13:45 300 MG Polyethylene (Miralax Powder Packet) 17 gm QAM PO 07/17/17 08:00 08/16/17 07:59 07/17/17 08:33 17 GM Lisinopril (Zestril Tab) 10 mg QAM PO 07/17/17 08:00 08/16/17 07:59 07/17/17 08:32 10 MG Oxycodone/ Acetaminophen (Percocet 5-325mg Tab) 1 tab Q8 PRN PO 07/17/17 11:15 07/30/17 21:14
[2017-07-17 16:40] VITALS: BP 136/79; PULSE 94; TEMP 36.6; O2SAT 97
[2017-07-17] MEDS ORDERED: PHENAZOPYRIDINE HCL 200 MG TAB PO PRN (17:30)
[2017-07-17] MEDS: PRAZOSIN HCL 1 MG CAP PO SCH (19:37)
[2017-07-17] MEDS: MONTELUKAST SOD 10 MG TAB PO SCH (19:41)
[2017-07-17] MEDS: DULOXETINE (CYMBALTA) 30 MG CAP PO SCH (19:42)
[2017-07-17] MEDS: hydrOXYzine HCL 25 MG TAB PO SCH (19:42)
[2017-07-17 20:00] VITALS: O2SAT 100
[2017-07-17 23:00] VITALS: BP 104/66; PULSE 89; TEMP 36.6; O2SAT 94
[2017-07-17] MEDS: ACETAMINOPHEN 325 MG TAB PO PRN (23:27)
[2017-07-18] VITALS: O2SAT 100
[2017-07-18] MEDS: ENOXAPARIN 40 MG/0.4 ML SYR SQ SCH (05:48)
[2017-07-18] MEDS: ACETAMINOPHEN 325 MG TAB PO PRN (05:48)
[2017-07-18] MEDS ORDERED: METHYLPREDNISOLONE 4 MG TAB PO SCH ×2 (07:00)
[2017-07-18] MEDS: OXYCODONE/ACETAMINOPHEN 5-325 TAB PO PRN (08:16)
[2017-07-18] MEDS: PANTOprazole SOD 40 MG TAB PO SCH (08:17)
[2017-07-18] MEDS: TiZANIdine 1 MG TAB PO SCH (08:17)
[2017-07-18] MEDS: DIAZEPAM 5MG TAB PO SCH (08:17)
[2017-07-18] MEDS: TOPIRAMATE 100 MG TAB PO SCH (08:17)
[2017-07-18] MEDS: CYCLOBENZAPRINE HCL 10 MG TAB PO SCH (08:18)
[2017-07-18] MEDS: SERTRALINE HCL 50 MG TAB PO SCH (08:18)
[2017-07-18] MEDS: POLYETHYLENE (MIRALAX) 17 GM PACK PO SCH (08:18)
[2017-07-18] MEDS: LISINOPRIL 10 MG TAB PO SCH (08:18)
[2017-07-18] MEDS: CETIRIZINE HCL 10 MG TAB PO SCH (08:19)
[2017-07-18] MEDS: GABAPENTIN 300 MG CAP PO SCH (08:19)
[2017-07-18] MEDS: DULOXETINE HCL 60 MG CAP PO SCH (08:19)
[2017-07-18 08:34] VITALS: BP 135/77; PULSE 86; TEMP 36.6; O2SAT 96
--- NOTE | 2017-07-18 11:11 | Progress Note ---
Medicine Progress Note Date & Time of Visit: Jul 18, 2017 at 10:57. Subjective Pt was seen and examined Sitting in chair with no distress eating her breakfast Pt said that she feels fine She said that her pain improves significantly She said that she is able to move and feel her lower extremities She said that she used her walker to us the bathroom Pt said that she is back to her baseline to go home I told the nurse to call physical therapy to walk with pt Denies any chest pain, palpitation, dizziness and SOB Objective Last 8 Hrs Date Time Temp Pulse Resp B/P (MAP) Pulse Ox O2 Delivery O2 Flow Rate FiO2 07/18/17 08:34 36.6 86 18 135/77 (96) 96 Room Air Physical Exam: General- no acute distress/obese Head- atraumatic Eyes- PERRL, EOMI ENT- oropharynx clear Neck- supple, no JVD Lungs- clear to auscultation Heart- regular rhythm; no murmur Abdomen- normal bowel sounds, soft Extremities- no calf tenderness, no edema Neuro- alert, oriented x 3; PERRL, EOMI; no facial palsy; no dysarthria; able to move lower extremities, normal sensation Skin- warm & dry Laboratory Results: Last 24 Hours Test 07/18/17 04:44 Assessment & Plan Low Back Pain/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 MRI of cervical, thoracic, lumbar spine negative for any acute process No bladder/Bowel loss On pain control with morphine Gabapentin changed to 300mg TID Case discussed with neuro recommended to avoid narcotic as possible She said that tramadol does not help in the past' Morphine D/C On percocet 5mg q8hr Plan to transition to tramadol tomorrow Continue Zanaflex that was starting by neurology Continue Cymbalta Baclofen discontinued On Lidocaine patch Continue PT/OT Waiting for placement 2/5 Back to her baseline Able to move and feel Lower extremities Back pain improves significantly Continue gabapentin 300mg TID and Zanaflex Case discussed with physical therapist and said that pt walked with her walker Follow up with neurology D/C Percocet Continue PT/OT Fall precaution Discharge with home services HTN Lisinopril was on hold due to low BP Continue lisinopril BP stable Depression/Anxiety On Cymbalta and diazepam Denies any suicidal ideation continue home medications stable DVT ppx Lovenox FULL CODE Consultants: Neuro Current Inpatient Medications: Current Inpatient Medications Medications (Trade) Dose Ordered Sig/[place] Start Time Stop Time Status Last Admin Dose Admin Acetaminophen (Tylenol Tab) 650 mg Q4H PRN PO 07/14/17 21:15 08/13/17 21:14 07/18/17 05:48 650 MG Buspirone HCl (Buspar Tab) 10 mg TID PO 07/15/17 08:00 08/14/17 08:59 07/18/17 08:18 10 MG Pantoprazole Sodium (Protonix Tab) 40 mg QAM PO 07/15/17 08:00 08/14/17 07:59 07/18/17 08:17 40 MG Albuterol (Ventolin Hfa Inhaler) 2 puffs QID PRN INH 07/14/17 21:15 08/13/17 21:14 Cetirizine HCl (zyrTEC TAB) 10 mg QAM PO 07/15/17 08:00 08/14/17 08:59 07/18/17 08:19 10 MG Cyclobenzaprine HCl (Flexeril Tab) 10 mg TID PO 07/15/17 08:00 08/14/17 08:59 07/18/17 08:18 10 MG Diazepam (Valium Tab) 5 mg BID PO 07/15/17 08:00 08/14/17 08:59 07/18/17 08:17 5 MG Duloxetine HCl (Cymbalta Cap) 30 mg HS PO 07/15/17 21:00 08/14/17 20:59 07/17/17 19:42 30 MG Duloxetine HCl (Cymbalta Cap) 60 mg QAM PO 07/15/17 08:00 08/14/17 08:59 07/18/17 08:19 60 MG Hydroxyzine HCl (Vistaril Tab) 50 mg HS PO 07/15/17 21:00 08/14/17 20:59 07/17/17 19:42 50 MG Montelukast Sodium (Singulair Tab) 10 mg HS PO 07/15/17 21:00 08/14/17 20:59 07/17/17 19:41 10 MG Ondansetron HCl (Zofran Odt) 4 mg Q6H PRN SL 07/14/17 21:15 08/13/17 21:14 07/17/17 07:47 4 MG Sertraline HCl (Zoloft Tab) 75 mg QAM PO 07/15/17 08:00 08/14/17 08:59 07/18/17 08:18 75 MG Topiramate (Topamax Tab) 200 mg BID PO 07/15/17 08:00 08/14/17 08:59 07/18/17 08:17 200 MG Enoxaparin Sodium (Lovenox Inj) 40 mg Q24H SQ 07/15/17 06:00 08/14/17 05:59 07/18/17 05:48 40 MG Ondansetron HCl (Zofran Inj) 4 mg Q6H PRN IV 07/14/17 21:30 08/13/17 21:29 Miscellaneous Information (Order Awaiting Action) 1 ea QS N/A 07/15/17 00:00 08/14/17 00:00 Miscellaneous (Iv Fluids Completed) 1 ea PRN PRN N/A 07/15/17 00:30 07/15/18 00:29 Prazosin HCl (Prazosin) 2 mg HS PO 07/15/17 21:00 08/14/17 20:59 07/17/17 19:37 2 MG Methylprednisolone (Medrol Tab) 4 mg 07,13,21 PO 07/18/17 07:00 07/18/17 21:01 07/18/17 05:48 4 MG Methylprednisolone (Medrol Tab) 4 mg 07,21 PO 07/19/17 07:00 07/19/17 21:01 Methylprednisolone (Medrol Tab) 4 mg 07 PO 07/20/17 07:00 07/20/17 07:01 Diphenhydramine HCl (Benadryl Cap) 50 mg Q8H PRN PO 07/15/17 13:45 08/14/17 13:44 07/15/17 16:51 50 MG Tizanidine HCl (Zanaflex Tab) 2 mg BID PO 07/16/17 20:00 08/15/17 19:59 07/18/17 08:17 2 MG Gabapentin (Neurontin Cap) 300 mg TID PO 07/16/17 14:00 08/15/17 13:59 07/18/17 08:19 300 MG Polyethylene (Miralax Powder Packet) 17 gm QAM PO 07/17/17 08:00 08/16/17 07:59 07/18/17 08:18 17 GM Lisinopril (Zestril Tab) 10 mg QAM PO 07/17/17 08:00 08/16/17 07:59 07/18/17 08:18 10 MG Oxycodone/ Acetaminophen (Percocet 5-325mg Tab) 1 tab Q8 PRN PO 07/17/17 11:15 07/30/17 21:14 07/18/17 08:16 1 TAB Phenazopyridine HCl (Pyridium Tab) 200 mg TID PRN PO 07/17/17 17:30 08/16/17 17:29 07/17/17 18:00 200 MG
[2017-07-18] MEDS ORDERED: GABA1CAP4 PO (11:24)
[2017-07-18] MEDS ORDERED: TIZANIDINE PO (11:24)
[2017-07-18] MEDS: ONDANSETRON 4MG OD TAB SL PRN (11:40)
[2017-07-18 11:43] VITALS: BP 135/77; PULSE 86; TEMP 36.6; O2SAT 96
--- NOTE | 2017-07-18 11:44 | Discharge Instructions ---
Discharge Instructions Date of Service Jul 18, 2017. Admission Reason for Admission: Back Pain, Paresis Of Lower Extremity Discharge Discharge Diagnosis / Problem: Low back Pain/ Lower extremities numbness and weakness Discharge Goals Goal(s): Decrease discomfort, Improve function, Increase independence, Improve disease control Activity Recommendations Activity Limitations: resume your previous activity (as tolerated) . Instructions / Follow-Up Instructions / Follow-Up Follow up with your primary care provider Dr. Harley on 07/25 @ 10:45 AM Follow up with neurology (Neurology office will call you to schedule the appointment) Take your medications as prescribed Continue PT/OT Fall precaution Use your walker to ambulate Current Hospital Diet Patient's current hospital diet: Regular Diet Discharge Diet Recommended Diet: Regular Diet Pending Studies Studies pending at discharge: no Medical Emergencies . Who to Call and When: Medical Emergencies: If at any time you feel your situation is an emergency, please call 911 immediately. . Non-Emergent Contact Non-Emergency issues call your: Primary Care Provider Call Non-Emergent contact if: your pain is not controlled, you have any medication questions . . "Provider Documentation" section prepared by Kavya Vasquez. . VTE Core Measure Inpt VTE Proph given/why not?: Enoxaparin (Lovenox)SQ
--- NOTE | 2017-07-18 19:06 | Discharge Summary ---
Discharge Summary Date of Service Jul 18, 2017. Discharge Summary Admission Date: Jul 16, 2017 at 17:26 Discharge Date: Jul 18, 2017 Discharge Disposition: Home with services Principal Diagnosis: Low back Pain Lower extremities numbness and weakness Secondary Diagnoses/Problems: Depression/Anxiety HTN Procedures: MRI OF THE CERVICAL SPINE WITHOUT CONTRAST CLINICAL HISTORY: Fall. Back pain. Bilateral lower extremity paralysis. Cerebral palsy. COMPARISON: MRI of the cervical spine September 13, 2015, CT of the cervical spine August 25, 2016 and cervical spine radiographs April 10, 2017. TECHNIQUE: Utilizing a 1.5 Carola magnet and dedicated coil, multiplanar, multiecho imaging of the cervical spine was performed without IV contrast. FINDINGS: Alignment of the cervical spine is anatomic. Vertebral body heights are maintained. No fracture or suspicious marrow replacement. No intracanalicular mass or fluid collection is present. There is no prevertebral edema. There is no MRI evidence for ligamentous injury within the cervical spine. The appearance of the cervical spine is similar to MRI of September 13, 2015. Paravertebral soft tissues are unremarkable. Mild inherent T1 hyperintensity within the cerebellum is unchanged since prior exam of September 13, 2015. C2-C3: The central canal and the neural foramen are patent. C3-C4: The central canal and the neural foramen are patent. C4-C5: There is mild disc bulge with annular tear and tiny central disc protrusion. Central canal and neural foramen are patent. C5-C6: There is minimal disc bulge. The central canal and neural foramen are patent. C6-C7: The central canal and neural from are patent. C7-T1: Central canal and neural foramen are patent. IMPRESSION: 1. No acute abnormality within the cervical spine. 2. Unchanged appearance of the cervical spine since MRI of September 13, 2015 with mild multilevel degenerative disc disease at C4-C5 and C5-C6. Patent central canal. 3. Normal cervical cord signal and caliber. Electronically signed by: Aaron Hernandez M.D. 07/14/2017 5:46 PM Dictated Date/Time: 07/14/2017 5:37 PM MRI OF THE LUMBAR SPINE WITHOUT CONTRAST CLINICAL HISTORY: Fall with back pain. Bilateral lower extremity paralysis. Multiple lumbar spinal surgeries. COMPARISON STUDY: Lumbar spine MRI August 08, 2016. TECHNIQUE: Utilizing a 1.5 Carola magnet and dedicated coil, multiplanar, multiecho imaging of the lumbar spine was performed without IV contrast. FINDINGS: For purposes of numbering on this exam, the L5-S1 disc space is assigned to axial image 23 of 25. Alignment of the lumbar spine is anatomic. Vertebral body heights are maintained. There is no intracanalicular mass or fluid collection. The conus terminates at the T12-L1 level. Posterior decompression at L2-L5 is noted. Signal abnormality within the operative bed is similar to MRI of August 08, 2016. Moderate disc space narrowing at L5-S1 is unchanged. Mild disc space narrowing at L3-L4 is unchanged. Susceptibility artifact within the right aspect of L5 vertebra is unchanged. L1-2: The central canal and neural foramen are patent. L2-3: The central canal neural foramen are patent. L3-4: A central disc protrusion is unchanged. There is no significant central canal stenosis. There is mild bilateral neural foraminal stenosis. L4-5: Central canal is patent. Neural foramen are patent. L5-S1: Central canal and neural foramen are patent. IMPRESSION: 1. No change in appearance of the lumbar spine since MRI of August 08, 2016. 2. No acute abnormality within the lumbar spine. 3. No change in a central disc protrusion at L3-L4 without central canal stenosis. Mild bilateral neural foraminal stenosis at this level. Electronically signed by: Aaron Hernandez M.D. 07/14/2017 6:32 PM Dictated Date/Time: 07/14/2017 6:25 PM THORACIC SPINE MRI HISTORY: Fall back pain, bilateral lower extremity paralysis TECHNIQUE: Multiplanar multisequence MRI of the thoracic spine was performed without the use of contrast. COMPARISON: Thoracic spine 04/10/2017. FINDINGS: Alignment and curvature are intact. No fracture or subluxation. No significant central canal or neural foraminal narrowing. The thoracic spinal cord is normal in course, caliber, and signal intensity. Paraspinal soft tissues are unremarkable. Minimal disc space narrowing within the mid thoracic spine. Normal marrow signal intensity seen throughout the visualized osseous structures. Evidence for prior posterior decompression within the lower thoracic spine. IMPRESSION: No fracture or subluxation within the thoracic spine. Electronically signed by: Jonn Lnig M.D. 07/14/2017 6:12 PM Dictated Date/Time: 07/14/2017 6:08 PM Consultations: Neuro Medication Reconciliation New Medications: [TiZANIdine TAB] () 1 MG TAB 2 MG PO BID for 15 Days Changed Medications: Gabapentin (Gabapentin) 300 Mg Cap 300 MG PO TID, #30 (Changed from: BID) Continued Medications: Albuterol (Ventolin Hfa) 60 Puffs/5400 Mcg Aers 2 PUFFS INH QID PRN for SOB/Wheezing Buspirone HCl (Buspirone HCl) 10 Mg Tab 10 MG PO TID Cetirizine (Zyrtec) 10 Mg Tab 10 MG PO QAM, TAB Diazepam (Diazepam) 5 Mg Tab 5 MG PO BID Duloxetine HCl (Duloxetine HCl) 60 Mg Cap 60 MG PO QAM Duloxetine HCl (Duloxetine HCl) 30 Mg Cap 30 MG PO HS Esomeprazole Magnesium (Nexium) 40 Mg Capcr 40 MG PO QAM, CAP Fluticasone-Salmeterol 115/21 Mcg (Advair Hfa 115/21 Mcg) 1 Aer Aer 1 PUFF INH BID, AER Hydroxyzine Hcl (Atarax) 50 Mg Tab 50 MG PO HS Lisinopril (Lisinopril) 10 Mg Tab 10 MG PO QAM Montelukast Sod (Montelukast Sodium) 10 Mg Tab 10 MG PO HS Naproxen (Aleve) 220 Mg Tab 440 MG PO PRN UD, TAB Ondasetron Odt (Zofran Odt) 4 Mg Tab 4 MG SL Q6H PRN for Nausea, TAB Prazosin Hcl (Prazosin) 2 Mg Cap 2 MG PO DAILY Sertraline HCl (Sertraline HCl) 50 Mg Tab 75 MG PO QAM, #10 Topiramate (Topamax) 200 Mg Tab 200 MG PO BID Discontinued Medications: Cyclobenzaprine Hcl (Flexeril) 10 Mg Tab 10 MG PO TID Admission Information HPI (per Admitting provider): This is a 31 year old female with a PMH of cerebral palsy/congenital paraparesis , depression/anxiety, asthma, HTN, chronic back pain - presents with low back pain and lower extremity weakness. Patient has had previous admissions related to this. MRI performed of cervical, thoracic and lumbar spine, with no acute findings. Patient has had a spinal cord stimulator in the past year, but that was removed due to it being defective. Currently, denies fevers/chills or any other symptoms besides the pain, weakness and numbness/tingling. At baseline: uses a walker for ambulation if short distances, uses a wheelchair for long distances. Physical Exam (per Admitting): General Appearance: WD/WN, no apparent distress, + obese Head: normocephalic, atraumatic Eyes: normal inspection ENT: hearing grossly normal Respiratory/Chest: lungs clear, normal breath sounds, no respiratory distress, no accessory muscle use Cardiovascular: regular rate, rhythm, no edema, no murmur Abdomen/GI: non tender, soft Extremities/Musculoskelatal: no pedal edema, + pertinent finding (chronic weakness of b/l LE; decreased/painful ROM of back/LE) Neurologic/Psych: no motor/sensory deficits, alert, normal mood/affect Skin: normal color Lymphatic: no adenopathy Hospital Course Low Back Pain/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 MRI of cervical, thoracic, lumbar spine negative for any acute process No bladder/Bowel loss On pain control with morphine Gabapentin changed to 300mg TID Case discussed with neuro recommended to avoid narcotic as possible She said that tramadol does not help in the past' Morphine D/C On percocet 5mg q8hr Plan to transition to tramadol tomorrow Continue Zanaflex that was starting by neurology Continue Cymbalta Baclofen discontinued On Lidocaine patch Continue PT/OT Waiting for placement 2/5 Back to her baseline Able to move and feel Lower extremities Back pain improves significantly Continue gabapentin 300mg TID and Zanaflex Case discussed with physical therapist and said that pt walked with her walker Follow up with neurology D/C Percocet Continue PT/OT Fall precaution Discharge with home services HTN Lisinopril was on hold due to low BP Continue lisinopril BP stable Depression/Anxiety On Cymbalta and diazepam Denies any suicidal ideation continue home medications stable DVT ppx Lovenox FULL CODE Total time spent on discharge = 35 minutes This includes examination of the patient, discharge planning, medication reconciliation, and communication with other providers. Discharge Instructions Discharge Instructions Date of Service Jul 18, 2017. Admission Reason for Admission: Back Pain, Paresis Of Lower Extremity Discharge Discharge Diagnosis / Problem: Low back Pain/ Lower extremities numbness and weakness Discharge Goals Goal(s): Decrease discomfort, Improve function, Increase independence, Improve disease control Activity Recommendations Activity Limitations: resume your previous activity (as tolerated) . Instructions / Follow-Up Instructions / Follow-Up Follow up with your primary care provider Dr. Harley on 07/25 @ 10:45 AM Follow up with neurology (Neurology office will call you to schedule the appointment) Take your medications as prescribed Continue PT/OT Fall precaution Use your walker to ambulate Current Hospital Diet Patient's current hospital diet: Regular Diet Discharge Diet Recommended Diet: Regular Diet Pending Studies Studies pending at discharge: no Medical Emergencies . Who to Call and When: Medical Emergencies: If at any time you feel your situation is an emergency, please call 911 immediately. . Non-Emergent Contact Non-Emergency issues call your: Primary Care Provider Call Non-Emergent contact if: your pain is not controlled, you have any medication questions . . "Provider Documentation" section prepared by Kavya Vasquez. . VTE Core Measure Inpt VTE Proph given/why not?: Enoxaparin (Lovenox)SQ Additional Copies To Williams Velásquez M.D.
[2017-07-19] MEDS ORDERED: METHYLPREDNISOLONE 4 MG TAB PO SCH ×2 (07:00)
[2017-07-20] MEDS ORDERED: METHYLPREDNISOLONE 4 MG TAB PO SCH (07:00)
== END 2017-07-18 12:55 | disposition home health service (06) | DRG 552 ==
LOC: C.EDC 15:29 → EDBD 15:29 → C.4E 21:24 → ENRESERV 21:52 → OBSVTOIN 07-16 17:26
PROVIDERS: ADMIT Family Medicine; ATTEND Internal Medicine
DX: M54.9 Dorsalgia, unspecified (principal); F41.9 Anxiety disorder, unspecified; J45.909 Unspecified asthma, uncomplicated; G80.9 Cerebral palsy, unspecified; F32.9 Major depressive disorder, single episode, unspecified; K21.9 Gastro-esophageal reflux disease without esophagitis; I10 Essential (primary) hypertension; E88.81 Metabolic syndrome and other insulin resistance; G89.29 Other chronic pain; Z90.710 Acquired absence of both cervix and uterus; Z90.49 Acquired absence of other specified parts of digestive tract; Z83.3 Family history of diabetes mellitus; R29.6 Repeated falls; Z88.0 Allergy status to penicillin; Z88.2 Allergy status to sulfonamides; Z88.5 Allergy status to narcotic agent; Z88.8 Allergy status to other drugs, medicaments and biological substances; Z82.49 Family history of ischemic heart disease and other diseases of the circulatory system

== ENCOUNTER 2017-07-22 04:26 | Emergency (ER) | payer OTHER ==
[~2017-07-22] VITALS: Ht 152.4 cm; Wt 111.2 kg
[~2017-07-22 04:26] MED LIST changes: -BACL1TAB PO; +BSP/10 PO; -CMP/10 PO; +CYM30 PO; +CYM60 PO; +GABA1CAP4 PO; +HYDR-3126 PO; -METHYLPREDNISOLONE 4 MG TAB PO SCH; +NAPR1TAB9 PO; +PRAZ2CAP2 PO; +PRVHFAIN INH; +SNG10 PO; +TIZANIDINE PO; +TOPI200T20 PO; +ZLF50 PO
[2017-07-22 04:37] VITALS: TEMP 36.5; Ht 152.4 cm; Wt 111.2 kg
[2017-07-22] MEDS ORDERED: ACETAMINOPHEN 500 MG TAB PO STA (05:30)
[2017-07-22] MEDS ORDERED: GABA-113 PO (06:12)
[2017-07-22] MEDS ORDERED: TIZA2CAP PO (06:13)
[2017-07-22] MEDS ORDERED: IBUPROFEN 800 MG TAB PO STA (06:17)
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
[2017-07-22 06:23] VITALS: BP 125/84; PULSE 65; O2SAT 98
== END 2017-07-22 06:43 | disposition home or self-care (01) ==
LOC: EDBD 04:26 → C.EDA 04:28
DX: M54.6 Pain in thoracic spine (principal); F41.9 Anxiety disorder, unspecified; J45.909 Unspecified asthma, uncomplicated; G80.9 Cerebral palsy, unspecified; F32.9 Major depressive disorder, single episode, unspecified; K21.9 Gastro-esophageal reflux disease without esophagitis; I10 Essential (primary) hypertension; A41.02 Sepsis due to Methicillin resistant Staphylococcus aureus; Z83.3 Family history of diabetes mellitus; Z82.49 Family history of ischemic heart disease and other diseases of the circulatory system

== ENCOUNTER 2017-10-11 13:11 | Emergency (ER) | payer OTHER ==
[~2017-10-11] VITALS: Ht 152.4 cm; Wt 112.2 kg
[~2017-10-11 13:11] MED LIST changes: +GABA-113 PO; -GABA1CAP4 PO; +TIZA2CAP PO; -TIZANIDINE PO
[2017-10-11 13:18] VITALS: TEMP 37.6; Ht 152.4 cm; Wt 112.2 kg
[2017-10-11] MEDS ORDERED: DiphenhydrAMINE HCL 50 MG/ML VIAL IV STA (14:20)
[2017-10-11] MEDS ORDERED: KETOROLAC TROMETHAMINE 30 MG/ML VIAL IV STA (14:20)
[2017-10-11] MEDS ORDERED: GABA-113 PO (15:06)
[2017-10-11] MEDS ORDERED: TIZA2CAP PO (15:06)
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
[2017-10-11 15:55] VITALS: BP 134/81; PULSE 86; O2SAT 96
== END 2017-10-11 16:08 | disposition home or self-care (01) ==
LOC: EDBD 13:11 → C.EDA 13:13
DX: T14.90XA Injury, unspecified, initial encounter (principal); M54.9 Dorsalgia, unspecified; M79.604 Pain in right leg; V89.0XXA Person injured in unspecified motor-vehicle accident, nontraffic, initial encounter; Y92.488 Other paved roadways as the place of occurrence of the external cause; F41.9 Anxiety disorder, unspecified; G80.9 Cerebral palsy, unspecified; F32.9 Major depressive disorder, single episode, unspecified; K21.9 Gastro-esophageal reflux disease without esophagitis; Z88.0 Allergy status to penicillin; Z88.8 Allergy status to other drugs, medicaments and biological substances; R19.7 Diarrhea, unspecified; Z82.49 Family history of ischemic heart disease and other diseases of the circulatory system; Z79.899 Other long term (current) drug therapy

== ENCOUNTER 2019-08-09 10:52 | Inpatient (IN) ==
[2019-08-09] MEDS ORDERED: ONDANSETRON INJ 2 MG/ML 2 ML VIAL IV STA ×2 (11:17→18:30)
[2019-08-09] MEDS ORDERED: MoRPHine SULFATE 4 MG/ML 1 ML CARP\\VIAL IV STA ×4 (11:17→17:08)
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
[2019-08-09] MEDS ORDERED: LORazepam 1 MG TAB SL STA (12:06)
[2019-08-09 12:23] LABS: Basophils # (auto) 0.03 K/uL (0-0.2); Basophils % (auto) 0.4 %; Eosinophils # (auto) 0.11 K/uL (0-0.5); Eosinophils % (auto) 1.4 %; Hematocrit (blood only) 44.3 % (37-47); Hemoglobin 14.9 g/dL (12.0-16.0); Immature Granulocytes # (auto) 0.02 K/uL (0.00-0.02); Immature Granulocytes % (auto) 0.2 %; Lymphocytes # (auto) 2.79 K/uL (1.2-3.4); Lymphocytes % (auto) 34.7 %; Mean Corpuscular Hemoglobin 29.5 pg (25-34); Mean Corpuscular Hgb Conc 33.6 g/dL (32-36); Mean Corpuscular Volume 87.7 fL (80-100); Mean Platelet Volume 9.5 fL (7.4-10.4); Monocytes # (auto) 0.37 K/uL (0.11-0.59); Monocytes % (auto) 4.6 %; Neutrophils # (auto) 4.73 K/uL (1.4-6.5); Neutrophils % (auto) 58.7 %; Platelet Count 263 K/uL (130-400); RDW Coefficient of Variation 14.6 % (11.5-14.5); RDW Standard Deviation 46.8 fL (36.4-46.3); Red Blood Count 5.05 M/uL (4.2-5.4); White Blood Count 8.05 K/uL (4.8-10.8)
[2019-08-09 12:38] LABS: Alanine Aminotransferase 26 U/L (12-78); Albumin Level 3.7 gm/dl (3.4-5.0); Aspartate Aminotransferase 15 U/L (15-37); BUN Creatinine Ratio 15.8 (10-20); Blood Urea Nitrogen 14 mg/dl (7-18); Calcium 9.7 mg/dl (8.5-10.1); Carbon Dioxide 22 mmol/L (21-32); Chloride 109 mmol/L (98-107); Est GFR (African American) 102.9; Est GFR (Non-African American) 88.8; Glucose 79 mg/dl (70-99); Potassium 4.1 mmol/L (3.5-5.1); Sodium 138 mmol/L (136-145)
[2019-08-09 12:41] LABS: Albumin Globulin Ratio 0.8 (0.9-2); Alkaline Phosphatase 85 U/L (45-117); Bilirubin,Total 0.3 mg/dl (0.2-1); Globulin 4.4 gm/dl (2.5-4.0); Total Protein 8.1 gm/dl (6.4-8.2)
[2019-08-09 13:55] LABS: Appearance Urine Cloudy (Clear); Bilirubin Urine Negative (Negative); Blood Urine Negative (Negative); Color Urine Yellow; Epithelial Cell Urine Auto >30 /lpf (0-5); Glucose Urine UA Negative (Negative); Ketones Urine Negative (Negative); Leukocyte Esterase Urine 2+ (Negative); Nitrite Urine Negative (Negative); Protein Urine Negative (Negative); RBC Urine Automated 0-4 /hpf (0-4); Urobilinogen Urine Negative (Negative)
[2019-08-09 14:10] LABS: Bacteria Urine Automated 1+ (Negative)
[2019-08-09] MEDS ORDERED: LORazepam 1 MG TAB ONE ×2 (14:43→14:49)
--- NOTE | 2019-08-09 15:43 | Magnetic Resonance Report ---
MR lumbar spine wo con HISTORY: Pain urinary incontinence, back pain TECHNIQUE: Multiplanar multisequence MRI of the lumbar spine was performed without the use of contras t. COMPARISON: 07/14/2017 FINDINGS: For the purpose of the report the L5-S1 disc space will be located on axial image 2126. This operative findings of the low lumbar spine are again noted. Posterior disc herniation L3-L4 base of the sagittal images is progressive. L1-L2: No significant central canal or neural foraminal narrowing. L2-L3: No significant central canal or neural foraminal narrowing. L3-L4: Broad-based posterior disc herniation L3-L4 considered mildly progressive from the prior exam. Operative changes consistent with posterior laminectomy and fusion are noted. L4-L5: No significant central canal or neural foraminal narrowing. L5-S1: No significant central canal or neural foraminal narrowing. IMPRESSION: 1. Mildly progressive disc herniation L3-L4 compared to the prior study. 2. The remainder the examination is similar ACT 112: Negative or not required by law. The above report was generated using voice recognition software. It may contain grammatical, syntax or spelling errors. Electronically signed by: Lawrence Roberts M.D. 08/09/2019 3:42 PM
[2019-08-09] MEDS ORDERED: DEXAMETHASONE **PF** INJ 10 MG/ML VIAL IV ONE (17:08)
[2019-08-09] MEDS ORDERED: ACETAMINOPHEN 325 MG TAB PO STA (17:08)
--- NOTE | 2019-08-09 18:25 | XRay Report ---
XR femur RT 2V routine CLINICAL HISTORY: Low back and leg pain COMPARISON: None. DISCUSSION: The bones and joint spaces appear intact. There is no evidence of fracture, dislocation o r bony disease. There is no evidence for soft tissue swelling. IMPRESSION: Negative study. ACT 112: Negative or not required by law. The above report was generated using voice recognition software. It may contain grammatical, syntax or spelling errors. Electronically signed by: Lawrence Roberts M.D. 08/09/2019 6:24 PM
--- NOTE | 2019-08-09 18:26 | XRay Report ---
XR pelvis 1-2V routine CLINICAL HISTORY: Low back and leg pain COMPARISON: None. DISCUSSION: The bones and joint spaces appear intact. There is no evidence of fracture, dislocation o r bony disease. Moderate degenerative change of the hips as well as sacroiliac joints bilaterally. IMPRESSION: Moderate degenerative change. No acute process. ACT 112: Negative or not required by law. The above report was generated using voice recognition software. It may contain grammatical, syntax or spelling errors. Electronically signed by: Lawrence Roberts M.D. 08/09/2019 6:25 PM
--- NOTE | 2019-08-09 18:27 | XRay Report ---
XR lumbar spine min 4V routine HISTORY: Pain Low back and leg pain COMPARISON: None. FINDINGS: Vertebral body stature is normal. There is degenerative disc changes throughout. No evidenc e for subluxation. Degenerative changes of posterior elements. Moderate scoliosis IMPRESSION: Moderate degenerative change. Scoliosis. No acute process. ACT 112: Negative or not required by law. The above report was generated using voice recognition software. It may contain grammatical, syntax or spelling errors. Electronically signed by: Lawrence Roberts M.D. 08/09/2019 6:26 PM
--- NOTE | 2019-08-09 18:28 | XRay Report ---
XR femur LT 2V routine CLINICAL HISTORY: Low back and leg pain pain COMPARISON: None. DISCUSSION: The bones and joint spaces appear intact. There is no evidence of fracture, dislocation o r bony disease. There is no evidence for soft tissue swelling. IMPRESSION: Negative study. ACT 112: Negative or not required by law. The above report was generated using voice recognition software. It may contain grammatical, syntax or spelling errors. Electronically signed by: Lawrence Roberts M.D. 08/09/2019 6:27 PM
[2019-08-09] MEDS ORDERED: IBUPROFEN 600 MG TAB PO STA (19:30)
[2019-08-09] MEDS ORDERED: BACLOFEN 20 MG TAB PO STA (19:30)
--- NOTE | 2019-08-09 19:40 | History & Physical Report ---
Date of Service August 09, 2019 Assessment & Plan (1) Acute radicular low back pain: (2) Lumbar disc herniation: (3) Ambulatory dysfunction: This is a 34-year-old male with a significant past medical history of cerebral palsy, bipolar depression, asthma, GERD, IBS, vitamin D deficiency, spina bifida, history of MRSA, migraines, chronic past pain, spastic HP, conversion disorder, history of narcotic abuse who presents to ED secondary to acute back pain prior to arrival. She has a history of chronic back pain requiring multiple lumbar surgeries in the past at [facility]. In ED MRI revealed Lumbar disc herniation L3-L4, mildly progressive from prior study Pt established with [facility], hx of previous lumbar surgeries, last 2013 B/L Lami L5-S1, L3-4 foraminotomy ED provider reviewed images with [facility] who felt were stable and unchanged Cauda equina r/o with report of incontinence, LANI done with good tone, PVR pending Pt requesting narcotics, but refusing steroids Hx of Narcotic abuse admit to med/surg conservative management PT/OT Ibuprofen 600mg TID tylenol #3 q6prn Limit narcotic use, pt with hx of abuse continue baclofen for spasticity (4) Cerebral palsy: supportive care PT/OT consulted (5) Hypertension: blood pressure elevated 2/2 to pain and anxiety continue lisinopril (6) Bipolar depression: continue latuda, buspar, cymbalta, prazosin (7) Migraine: continue topamax and ajovy (8) GERD (gastroesophageal reflux disease): continue PPI (9) DVT prophylaxis: SCD/TEDS for now if prolonged immobility consider lovenox Disposition: admit to med/surg, case management consulted - may need acute rehab Follow up: PCP Dr. Post upon discharge Pt was seen and examined in collaboration with Dr. New, please see addendum History of Present Illness Chief Complaint: Acute back pain prior to arrival. Primary Care Provider: Percy Post MD This is a 34-year-old male with a significant past medical history of cerebral palsy, bipolar depression, asthma, GERD, IBS, vitamin D deficiency, spina bifid a, history of MRSA, migraines, chronic past pain, spastic HP, conversion disorder, history of narcotic abuse who presents to ED secondary to acute back pain prior to arrival. She has a history of chronic back pain requiring multiple lumbar surgeries in the past at [facility]. She was on a transport van in route to Dr. Schafer office, pain management with [facility]. In route she they traveled over a bump and she felt a, "pop in her back causing acute pain and urinary incontinence. "She was seen and evaluated in Dr. Schafer's office in which she was supposed to receive a Botox injection and was transferred over to ED for further evaluation given symptoms. At the onset of the pop in her back she developed acute central low back pain with radiation down right lateral leg to foot with associated tingling. She had 2 episodes of urinary incontinence per patient. She further complains of generalized nausea. At baseline she does live alone and is able to ambulate with a walker. She has a scooter for longer distance. She denies any recent illness, fever, chills, sweats, lightheadedness, dizziness, chest pain, shortness, palpitations, emesis, abdominal pain. Last BM was yesterday. She has not urinated in ED. Her appetite has been okay. Of significance she recently did have left foot surgery by Dr. Hernández on 07/30/2019. She has been taking tylenol with codeine for this as well as tramadol. In ED patient underwent work-up to rule out cauda equina. She underwent lumbar spine MRI Which revealed mildly progressive stagnation L3-4 compared to prior study. Per Shiva Molina PA-C in ED he spoke with [facility] provider and reviewed images which felt images were similar and stable to prior. She further underwent pelvic xray and femur xray negative for fracture. Attempt was to discharge home; however pt unable to ambulate. per ED provider LANI was performed which revealed good sphincter tone, PVR was pending. CBC, CMP unremarkable. Urine + leuks, > 30 epis, likely contaminated specimen. Allergies Allergy/AdvReac Type Severity Reaction Status Date / Time aztreonam Allergy Severe SHORTNESS Verified 08/09/19 12:46 OF BREATH Cephalosporins Allergy Severe SHORTNESS Verified 08/09/19 12:46 OF BREATH ketorolac Allergy Severe ITCHY Verified 08/09/19 12:46 linezolid Allergy Severe SHORTNESS Verified 08/09/19 12:46 OF BREATH Penicillins Allergy Severe SHORTNESS Verified 02/27/20 12:46 OF BREATH propranolol Allergy Severe Anaphylaxis Verified 08/09/19 19:02 Sulfa (Sulfonamide Allergy Severe SHORTNESS Verified 08/09/19 12:46 Antibiotics) OF BREATH fexofenadine Allergy Intermediate HIVES Verified 08/09/19 12:46 latex Allergy Mild Itching Verified 08/09/19 12:46 Beta-Blockers Allergy Unknown unknown Verified 08/09/19 12:46 (Beta-Adrenergic Bloc meperidine Allergy Unknown RESPIRATORY Verified 08/09/19 12:46 DISTRESS neomycin Allergy Unknown . Verified 08/09/19 12:46 propoxyphene Allergy Unknown UNKNOWN Verified 08/09/19 12:46 Quinolones Allergy Unknown QUINOLONES-SOB, Verified 08/09/19 12:46 CAN TAKE CIPRO W/O PROBLEM tetracycline Allergy Unknown UNKNOWN Verified 08/09/19 12:46 vancomycin Allergy Unknown REDNESS Unverified 08/09/19 12:46 verapamil Allergy Unknown UNKNOWN Verified 08/09/19 12:46 aripiprazole [From Abilify] Allergy Verified 08/09/19 19:02 lithium Allergy Verified 08/09/19 19:02 Home Medications Home Medications Medication Instructions Recorded Confirmed Type albuterol sulfate [Ventolin HFA] 2 puff INHALATION QID PRN 04/13/18 08/09/19 History aspirin 81 mg PO QAM 04/13/18 08/09/19 History buspirone 15 mg PO TID 04/13/18 08/09/19 History cetirizine [Zyrtec] 10 mg PO QAM 04/13/18 08/09/19 History duloxetine [Cymbalta] 60 mg PO BID 04/13/18 08/09/19 History esomeprazole magnesium [Nexium] 40 mg PO QAM 04/13/18 08/09/19 History hydroxyzine HCl 50 mg PO HS PRN 04/13/18 08/09/19 History polyethylene glycol 3350 [Miralax] 17 g PO BID PRN 04/13/18 08/09/19 History prazosin 2 mg PO HS 04/13/18 08/09/19 History prochlorperazine maleate 10 mg PO Q8 PRN 04/13/18 08/09/19 History [Compazine] prazosin 1 mg PO HS 08/06/18 08/09/19 History cyclobenzaprine 10 mg PO HS PRN 12/15/18 08/09/19 History ibuprofen 200 mg PO Q6H PRN 02/22/19 08/09/19 History phenazopyridine [Pyridium] 100 mg PO Q8H PRN #6 tab 03/16/19 08/09/19 Rx baclofen 20 mg PO TID 08/09/19 08/09/19 History fremanezumab-vfrm [Ajovy] 225 mg SUBCUT MONTHLY 08/09/19 08/09/19 History lisinopril 5 mg PO QAM 08/09/19 08/09/19 History lurasidone [Latuda] 80 mg PO HS 08/09/19 08/09/19 History topiramate 100 mg PO BID 08/09/19 08/09/19 History Past Med/Surg History Medical History Anxiety disorder (Chronic) Asthma (Chronic) Cerebral palsy (Chronic) Depression (Chronic) GERD (gastroesophageal reflux disease) (Chronic) Hypertension (Chronic) Insulin resistance (Chronic) MRSA (methicillin resistant Staphylococcus aureus) (Resolved) Paralysis of both lower limbs (Chronic) Suicidal ideations Surgical History H/O dilation and curettage (Resolved) H/O shoulder surgery (Resolved) History of laminectomy (Resolved) Hx of cholecystectomy (Resolved) Hx of eye surgery (Resolved) Hx of spinal fusion (Resolved) S/P surgical manipulation of ankle joint (Resolved) Family History Father Alive and well Hypertension Mother Alive and well Hypertension Social History Preferred Language: Iranian Communication Ability: Effective Team Manager Required: No Beliefs That Will Affect Care: None Current Living Situation: Alone Current Living Situation Comment: caregivers come in daily, 8hr shifts Other Information That Helps Us Care for You: No Feels Safe at Home: Yes Safety Concerns: Feels Safe At This Time Smoking Status: Never smoker Hx Alcohol Use: No Hx Substance Use: No Review of Systems Review of Systems: All systems reviewed & are unremarkable except as noted in HPI & below Physical Exam Physical Exam: Constitutional: WD/WN, vitals as above, NAD, sitting up in bed, pleasant, conversing easily Head: Normocephalic, Atraumatic Eyes: PERRL, conjunctivae normal, anicteric sclerae ENMT: external ear and nose normal, oropharynx normal Neck: trachea midline, no thyromegaly normal visual inspection Respiratory: normal respiratory effort, lungs clear to auscultation, no wheeze, rales, rhonchi. Normal insp/exp effort, no accessory muscle use Cardiovascular: RRR, no murmur, no edema Vessels: no JVD or carotid bruit Chest: normal inspection of chest Abdomen: normal bowel sounds, soft, nontender, no hepatosplenomegaly Musculoskeletal: no cyanosis or clubbing, bilateral upper extremities good active range of motion, strength 5 out of 5. Bilateral lower extremities very spastic, limited active range of motion, difficult passive range of motion secondary to spasticity, bilateral patellar reflex intact +2, left foot dressing CDI Skin: no rashes, warm and dry normal turgor Neurologic: PERRL, EOMI, accommodation nl, no face palsy, no dysarthria CN's II-XI intact bilaterally and moves all extremities Psychiatric: A+Ox3, euthymic affect Lymphatic: no cervical or axillary lymphadenopathy : deferred Results & Data Vital Signs (Past 12 Hours) Vital Signs Temp Pulse Pulse Resp BP BP Pulse Ox 08/09/19 18:14 118 H 18 137/119 H 97 08/09/19 16:00 111 H 20 135/95 95 08/09/19 14:57 80 20 150/89 H 97 08/09/19 12:55 90 20 157/87 H 97 08/09/19 10:56 36.8 C 96 H 20 133/83 99 Laboratory Results Short CBC 08/09/19 Range/Units 12:10 WBC 8.05 (4.8-10.8) K/uL Hgb 14.9 (12.0-16.0) g/dL Hct 44.3 (37-47) % Plt Count 263 (130-400) K/uL BMP 08/09/19 12:10 Sodium 138 Potassium 4.1 Chloride 109 H Carbon Dioxide 22 BUN 14 Creatinine 0.86 Glucose 79 Calcium 9.7 Liver Function 08/09/19 Range/Units 12:10 Total Bilirubin 0.3 (0.2-1) mg/dl AST 15 (15-37) U/L ALT 26 (12-78) U/L Alkaline Phosphatase 85 (45-117) U/L Albumin 3.7 (3.4-5.0) gm/dl Urine 08/09/19 Range/Units 13:40 Urine Color Yellow Urine Appearance Cloudy A (Clear) Urine pH 5.0 (4.5-7.5) Ur Specific Boaz 1.020 (1.000-1.030) Urine Protein Negative (Negative) Urine Glucose (UA) Negative (Negative) Diagnostic Findings Lumbar MRI: FINDINGS: For the purpose of the report the L5-S1 disc space will be located on axial image 2126. This operative findings of the low lumbar spine are again noted. Posterior disc herniation L3-L4 base of the sagittal images is progressive. L1-L2: No significant central canal or neural foraminal narrowing. L2-L3: No significant central canal or neural foraminal narrowing. L3-L4: Broad-based posterior disc herniation L3-L4 considered mildly progressive from the prior exam. Operative changes consistent with posterior laminectomy and fusion are noted. L4-L5: No significant central canal or neural foraminal narrowing. L5-S1: No significant central canal or neural foraminal narrowing. IMPRESSION: 1. Mildly progressive disc herniation L3-L4 compared to the prior study. 2. The remainder the examination is similar Femur Xray b/l: IMPRESSION: Negative study. Lumbar Spine Xray: IMPRESSION: Moderate degenerative change. Scoliosis. No acute process. Pelvis Xray: IMPRESSION: Moderate degenerative change. No acute process. Medications Administered Discontinued Medications Acetaminophen (Tylenol) 650 mg PO NOW STA Stop: 08/09/19 17:09 Last Admin: 08/09/19 17:13 Dose: 650 mg Documented by: [id number] Dexamethasone Sodium Phosphate (Decadron Pf) 10 mg IV NOW ONE Stop: 08/09/19 17:09 Last Admin: 08/09/19 17:14 Dose: Not Given Documented by: [id number] Lorazepam (Ativan) 1 mg SL NOW STA Stop: 08/09/19 12:07 Last Admin: 08/09/19 14:49 Dose: 1 mg Documented by: [id number] Lorazepam (Ativan) Confirm Administered Dose 1 mg .ROUTE .STK-MED ONE Stop: 08/09/19 14:44 Last Admin: 08/09/19 14:50 Dose: Not Given Documented by: [id number] Lorazepam (Ativan) Confirm Administered Dose 1 mg .ROUTE .STK-MED ONE Stop: 08/09/19 14:50 Last Admin: 08/09/19 14:50 Dose: Not Given Documented by: [id number] Morphine Sulfate (Morphine Sulfate) 4 mg IV NOW STA Stop: 08/09/19 11:18 Last Admin: 08/09/19 12:18 Dose: 4 mg Documented by: [id number] Morphine Sulfate (Morphine Sulfate) 4 mg IV NOW STA Stop: 08/09/19 13:02 Last Admin: 08/09/19 14:49 Dose: 4 mg Documented by: [id number] Morphine Sulfate (Morphine Sulfate) 4 mg IV NOW STA Stop: 08/09/19 15:52 Last Admin: 08/09/19 15:56 Dose: 4 mg Documented by: [id number] Morphine Sulfate (Morphine Sulfate) 4 mg IV NOW STA Stop: 08/09/19 17:09 Last Admin: 08/09/19 17:13 Dose: 4 mg Documented by: [id number] Ondansetron HCl (Zofran) 4 mg IV NOW STA Stop: 08/09/19 11:18 Last Admin: 08/09/19 12:19 Dose: 4 mg Documented by: [id number] Ondansetron HCl (Zofran) 4 mg IV NOW STA Stop: 08/09/19 18:31 Last Admin: 08/09/19 18:43 Dose: 4 mg Documented by: [id number] Code Status & VTE Plan Code Status Full Code VTE Prophylaxis Plan VTE Prophylaxis will be ordered: Yes Supervising Physician Co-Signing Physician Notes Care coordinated with Taylor Moya PA-C on Aug 09 2019.. Agree with above note. Patient seen and examined. Please refer to her notes for full details. Vital signs reviewed. Physical exam: General exam: Alert and oriented. Not in acute distress. CVS: S1 and S2 heard, regular rate and rhythm, no murmurs. RS: Clear to auscultation, no wheezing or crackles. ABD: Soft, bowel sounds present, nontender, no distention. API DEVELOPER: lower extremity weakness, sensations intact. EXT: No edema, no erythema. Labs: Reviewed. Assessment and plan: 34F with PMH of cerebral palsy,Chronic pain, bipolar/depression, conversion disorder, hx of narcotic abuse, had multiple back surgeries at [facility], Lives aloe, ambulates with walker at home and uses scooter for long distances, Was on her way to pain clinic when the van bumped she seemed felt pop in her back and complained of pain in her lower extremities and urinary incontinence and was sent to Er from pain clinic. MRI done in ER showed slightly progressed disc bulge at L3-L4 compared to prior scan, otherwise unremarkable study. Pain control, pt/ot. Observe in medical floor. Other diagnosis and plan of care as per Taylor Moya PA-C. Ap bonilla MD.
[2019-08-09] MEDS ORDERED: POLYETHYLENE (MIRALAX) 17 GM PACK PO PRN (21:49)
[2019-08-09] MEDS ORDERED: ONDANSETRON INJ 2 MG/ML 2 ML VIAL IV PRN (21:49)
[2019-08-09] MEDS ORDERED: PRAZOSIN HCL 1 MG CAP PO SCH (21:49)
[2019-08-09] MEDS: BusPIRone 15 MG TAB PO SCH (22:43)
[2019-08-09] MEDS: LURASIDONE HCL 40 MG TAB PO SCH (22:43)
[2019-08-09] MEDS: DULOXETINE HCL 60 MG CAP PO SCH (22:43)
[2019-08-09] MEDS: TOPIRAMATE 100 MG TAB PO SCH (22:44)
[2019-08-09] MEDS: PRAZOSIN HCL 1 MG CAP PO SCH (22:44)
[2019-08-09] MEDS: ACETAMINOPHEN W/CODEINE #3 1 TAB PO PRN (22:57)
[2019-08-10] MEDS ORDERED: MAGNESIUM SULFATE / D5W 1 GM/100 ML BAG IV ONE (00:23)
[2019-08-10] MEDS ORDERED: SODIUM CHLORIDE 0.9% 1000ML 1,000 ML IV ONE (00:23)
[2019-08-10] MEDS: OXYCODONE HCL IR 5 MG TAB (IMMEDIATE RELEASE) PO PRN ×5 (00:54→23:32)
[2019-08-10] MEDS: LIDOCAINE 5% 1 PATCH TD SCH (00:56)
[2019-08-10 02:24] LABS: Basophils # (auto) 0.04 K/uL (0-0.2); Basophils % (auto) 0.6 %; Eosinophils # (auto) 0.13 K/uL (0-0.5); Eosinophils % (auto) 1.8 %; Hematocrit (blood only) 40.9 % (37-47); Hemoglobin 13.6 g/dL (12.0-16.0); Immature Granulocytes # (auto) 0.02 K/uL (0.00-0.02); Immature Granulocytes % (auto) 0.3 %; Lymphocytes % (auto) 40.5 %; Mean Corpuscular Hemoglobin 29.5 pg (25-34); Mean Corpuscular Hgb Conc 33.3 g/dL (32-36); Mean Corpuscular Volume 88.7 fL (80-100); Mean Platelet Volume 9.3 fL (7.4-10.4); Monocytes # (auto) 0.42 K/uL (0.11-0.59); Monocytes % (auto) 5.9 %; Neutrophils # (auto) 3.65 K/uL (1.4-6.5); Neutrophils % (auto) 50.9 %; Platelet Count 280 K/uL (130-400); RDW Coefficient of Variation 14.7 % (11.5-14.5); RDW Standard Deviation 47.8 fL (36.4-46.3); Red Blood Count 4.61 M/uL (4.2-5.4); White Blood Count 7.16 K/uL (4.8-10.8)
[2019-08-10 02:34] LABS: Partial Thromboplastin Ratio 0.9
[2019-08-10 02:45] LABS: Calcium 8.9 mg/dl (8.5-10.1); Creatinine Clr Calc Pharmacy 88.5 ml/min; Est GFR (African American) 80.8; Est GFR (Non-African American) 69.7; Magnesium 2.3 mg/dl (1.8-2.4); Potassium 3.2 mmol/L (3.5-5.1)
[2019-08-10 02:58] LABS: Thyroid Stimulating Hormone 7.13 uIu/ml (0.300-4.500)
[2019-08-10] MEDS ORDERED: POTASSIUM CHLORIDE 20 MEQ TABCR PO STA (03:20)
[2019-08-10] MEDS ORDERED: POTASSIUM CHLORIDE 40 MEQ in SODIUM CHLORIDE 0.9% 1000ML 1,000 ML IV ONE (03:21)
[2019-08-10] MEDS ORDERED: IBUPROFEN 600 MG TAB PO SCH (06:00)
--- NOTE | 2019-08-10 08:42 | Hospitalist Progress Note ---
Date of Service August 10, 2019 Assessment & Plan (1) Acute radicular low back pain: (2) Lumbar disc herniation: (3) Ambulatory dysfunction: This is a 34-year-old female with a significant past medical history of cerebral palsy, bipolar depression, asthma, GERD, IBS, vitamin D deficiency, spina bifida, history of MRSA, migraines, chronic past pain, spastic HP, conversion disorder, history of narcotic abuse who presents to ED secondary to acute back pain prior to arrival. She has a history of chronic back pain requiring multiple lumbar surgeries in the past at [facility]. In ED MRI revealed Lumbar disc herniation L3-L4, mildly progressive from prior study Pt established with [facility], hx of previous lumbar surgeries, last 2013 B/L Lami L5-S1, L3-4 foraminotomy ED provider reviewed images with [facility] who felt were stable and unchanged Cauda equina r/o with report of incontinence, LANI done with good tone, PVR pending Pt requesting narcotics, but refusing steroids Hx of Narcotic abuse admit to med/surg conservative management PT/OT Ibuprofen 600mg TID tylenol #3 q6prn Limit narcotic use, pt with hx of abuse continue baclofen for spasticity May try Elavil (4) Cerebral palsy: supportive care PT/OT consulted (5) Hypertension: blood pressure elevated 2/2 to pain and anxiety continue lisinopril (6) Bipolar depression: continue latuda, buspar, cymbalta, prazosin (7) Migraine: continue topamax and ajovy (8) GERD (gastroesophageal reflux disease): continue PPI (9) DVT prophylaxis: SCD/TEDS for now if prolonged immobility consider lovenox Disposition: admit to med/surg, case management consulted - may need acute rehab Follow up: PCP Dr. Post upon discharge Labs checked ROS-No Headache, No Visual Changes, No Nausea, No Vomiting, No Fever, No Chills, No Neck Pain or Stiffness, No Chest Pain, No Palpitations, No SOB, No COREAS, No Cough, No Sputum, No Wheezing, No Abdominal Pain, No Diarrhea, No Hematemesis, No Hemoptysis, No Unexpected Weight Loss, No Flank pain, No Melena, No Hematochezia, No Frequency, No Urgency, No Burning, No Hematuria, No Rashes, No Diaphoresis. Appetite is Normal, c/o back pain Physical Exam Gen-AAO x 3, NAD, Afebrile Head-NCAT, EOMI, PERRLA, Anicteric Sclera, No Posterior Pharyngeal Erythema Neck-Supple, No JVD, No Thyromegaly, No Masses, No LAD, No Bruits Lungs-Clear to Auscultation Bilaterally, No Rales, No Rhonchi, No Wheezing, No Crepitus Chest-No S4, +S1, +S2, No S3, No Murmurs, No Rubs, No Gallops, No Ectopy Abdomen-Soft, Bowel Sounds Present, Non Tender, Non Distended, No Hepatomegaly, No Splenomegaly, No Palpable Masses, No Rebound, No Rigidity, No Guarding Musculoskeletal-Full Range of Motion Bilaterally, No CVAT Extremities-No Cyanosis, No Clubbing, No Edema Nuero-Cranial Nerves II-XII grossly intact, Motor WNL, DTRs WNL, Strength WNL, Non Focal Psych-Normal Mood Admission and Anticipated Discharge Date Admission Date: August 09, 2019 Results & Data ([facility]) Vital Signs (Past 12 Hours) Vital Signs Temp Pulse Pulse Pulse Resp BP BP 08/10/19 07:18 36.5 C 108 H 18 08/10/19 06:09 107 H 08/10/19 03:08 113 H 08/10/19 01:17 124 H 08/09/19 23:55 122 H 08/09/19 23:31 36.6 C 120 H 18 08/09/19 22:03 37 C 100 H 20 118/82 08/09/19 20:56 98 H 19 137/96 BP Pulse Ox 08/10/19 07:18 121/79 96 08/10/19 06:09 08/10/19 03:08 08/10/19 01:17 08/09/19 23:55 08/09/19 23:31 105/64 93 08/09/19 22:03 95 08/09/19 20:56 98
[2019-08-10] MEDS: TOPIRAMATE 100 MG TAB PO SCH ×2 (08:51→20:49)
[2019-08-10] MEDS: lisinopriL 5 MG TAB PO SCH (08:51)
[2019-08-10] MEDS: CETIRIZINE HCL 10 MG TABLET PO SCH (08:51)
[2019-08-10] MEDS: DULOXETINE HCL 60 MG CAP PO SCH ×2 (08:51→20:48)
[2019-08-10] MEDS: PANTOprazole 40 MG TAB PO SCH (08:51)
[2019-08-10] MEDS: BusPIRone 15 MG TAB PO SCH ×3 (08:51→20:48)
[2019-08-10] MEDS: BACLOFEN 20 MG TAB PO SCH ×3 (08:52→20:49)
[2019-08-10] MEDS: ASPIRIN 81 MG ECTAB PO SCH (08:52)
[2019-08-10] MEDS: ACETAMINOPHEN 325 MG TAB PO PRN (15:56)
--- NOTE | 2019-08-10 18:29 | Electrocardiogram Report ---
Test Reason : Blood Pressure : / mmHG Vent. Rate : 110 BPM Atrial Rate : 110 BPM P-R Int : 140 ms QRS Dur : 084 ms QT Int : 360 ms P-R-T Axes : 050 044 051 degrees QTc Int : 487 ms Sinus tachycardia Otherwise normal ECG When compared with ECG of 15-DEC-2018 12:27, No significant change was found Confirmed by Luiz Huang ([id number]) on 08/10/2019 6:29:05 PM Referred By: REFERRED SELF Confirmed By:Ajith Huang
[2019-08-10] MEDS: IBUPROFEN 200 MG TAB PO PRN (19:06)
[2019-08-10] MEDS: ACETAMINOPHEN W/CODEINE #3 1 TAB PO PRN (20:39)
[2019-08-10] MEDS: LURASIDONE HCL 40 MG TAB PO SCH (20:48)
[2019-08-10] MEDS: PRAZOSIN HCL 1 MG CAP PO SCH (20:49)
[2019-08-10] MEDS: CYCLOBENZAPRINE HCL 10 MG TAB PO PRN (20:55)
[2019-08-11] MEDS: ACETAMINOPHEN W/CODEINE #3 1 TAB PO PRN ×2 (06:24→16:09)
--- NOTE | 2019-08-11 07:54 | Hospitalist Progress Note ---
Date of Service August 11, 2019 Assessment & Plan (1) Acute radicular low back pain: (2) Lumbar disc herniation: (3) Ambulatory dysfunction: This is a 34-year-old female with a significant past medical history of cerebral palsy, bipolar depression, asthma, GERD, IBS, vitamin D deficiency, spina bifida, history of MRSA, migraines, chronic past pain, spastic HP, conversion disorder, history of narcotic abuse who presents to ED secondary to acute back pain prior to arrival. She has a history of chronic back pain requiring multiple lumbar surgeries in the past at [facility]. In ED MRI revealed Lumbar disc herniation L3-L4, mildly progressive from prior study Pt established with [facility], hx of previous lumbar surgeries, last 2013 B/L Lami L5-S1, L3-4 foraminotomy ED provider reviewed images with [facility] who felt were stable and unchanged Cauda equina r/o with report of incontinence, LANI done with good tone, PVR pending Pt requesting narcotics, but refusing steroids Hx of Narcotic abuse admit to med/surg conservative management PT/OT Ibuprofen 600mg TID tylenol #3 q6prn Limit narcotic use, pt with hx of abuse continue baclofen for spasticity May try Elavil (4) Cerebral palsy: supportive care PT/OT consulted (5) Hypertension: blood pressure elevated 2/2 to pain and anxiety continue lisinopril (6) Bipolar depression: continue latuda, buspar, cymbalta, prazosin (7) Migraine: continue topamax and ajovy (8) GERD (gastroesophageal reflux disease): continue PPI (9) DVT prophylaxis: SCD/TEDS for now if prolonged immobility consider lovenox Disposition: DC to acute rehab when bed available Follow up: PCP Dr. Post upon discharge Labs checked ROS-No Headache, No Visual Changes, No Nausea, No Vomiting, No Fever, No Chills, No Neck Pain or Stiffness, No Chest Pain, No Palpitations, No SOB, No COREAS, No Cough, No Sputum, No Wheezing, No Abdominal Pain, No Diarrhea, No Hematemesis, No Hemoptysis, No Unexpected Weight Loss, No Flank pain, No Melena, No Hematochezia, No Frequency, No Urgency, No Burning, No Hematuria, No Rashes, No Diaphoresis. Appetite is Normal, c/o back pain Physical Exam Gen-AAO x 3, NAD, Afebrile Head-NCAT, EOMI, PERRLA, Anicteric Sclera, No Posterior Pharyngeal Erythema Neck-Supple, No JVD, No Thyromegaly, No Masses, No LAD, No Bruits Lungs-Clear to Auscultation Bilaterally, No Rales, No Rhonchi, No Wheezing, No Crepitus Chest-No S4, +S1, +S2, No S3, No Murmurs, No Rubs, No Gallops, No Ectopy Abdomen-Soft, Bowel Sounds Present, Non Tender, Non Distended, No Hepatomegaly, No Splenomegaly, No Palpable Masses, No Rebound, No Rigidity, No Guarding Musculoskeletal-Full Range of Motion Bilaterally, No CVAT Extremities-No Cyanosis, No Clubbing, No Edema Nuero-Cranial Nerves II-XII grossly intact, Motor WNL, DTRs WNL, Strength WNL, Non Focal Psych-Normal Mood Admission and Anticipated Discharge Date Admission Date: August 09, 2019 Results & Data ([facility]) Vital Signs (Past 12 Hours) Vital Signs Temp Pulse Resp BP Pulse Ox 08/11/19 07:41 36.8 C 93 H 18 130/78 95 08/10/19 23:12 36.7 C 108 H 16 142/80 H 95
[2019-08-11 08:18] LABS: Basophils # (auto) 0.02 K/uL (0-0.2); Basophils % (auto) 0.4 %; Eosinophils # (auto) 0.15 K/uL (0-0.5); Eosinophils % (auto) 2.8 %; Hematocrit (blood only) 37.6 % (37-47); Hemoglobin 12.4 g/dL (12.0-16.0); Immature Granulocytes # (auto) 0.02 K/uL (0.00-0.02); Immature Granulocytes % (auto) 0.4 %; Lymphocytes # (auto) 1.95 K/uL (1.2-3.4); Lymphocytes % (auto) 36.4 %; Mean Corpuscular Hemoglobin 29.1 pg (25-34); Mean Corpuscular Volume 88.3 fL (80-100); Mean Platelet Volume 9.4 fL (7.4-10.4); Monocytes # (auto) 0.35 K/uL (0.11-0.59); Monocytes % (auto) 6.5 %; Neutrophils # (auto) 2.86 K/uL (1.4-6.5); Neutrophils % (auto) 53.5 %; Platelet Count 231 K/uL (130-400); RDW Coefficient of Variation 14.4 % (11.5-14.5); RDW Standard Deviation 46.6 fL (36.4-46.3); Red Blood Count 4.26 M/uL (4.2-5.4); White Blood Count 5.35 K/uL (4.8-10.8)
[2019-08-11] MEDS: OXYCODONE HCL IR 5 MG TAB (IMMEDIATE RELEASE) PO PRN ×4 (08:26→22:25)
[2019-08-11] MEDS: CETIRIZINE HCL 10 MG TABLET PO SCH (08:26)
[2019-08-11] MEDS: TOPIRAMATE 100 MG TAB PO SCH ×2 (08:27→20:10)
[2019-08-11] MEDS: BACLOFEN 20 MG TAB PO SCH ×3 (08:27→20:01)
[2019-08-11] MEDS: PANTOprazole 40 MG TAB PO SCH (08:27)
[2019-08-11] MEDS: DULOXETINE HCL 60 MG CAP PO SCH ×2 (08:27→20:01)
[2019-08-11] MEDS: lisinopriL 5 MG TAB PO SCH (08:27)
[2019-08-11] MEDS: BusPIRone 15 MG TAB PO SCH ×3 (08:28→20:01)
[2019-08-11] MEDS: LIDOCAINE 5% 1 PATCH TD SCH (08:28)
[2019-08-11] MEDS: ASPIRIN 81 MG ECTAB PO SCH (08:28)
[2019-08-11 08:55] LABS: BUN Creatinine Ratio 20.3 (10-20); Calcium 9.1 mg/dl (8.5-10.1); Creatinine Clr Calc Pharmacy 113.3 ml/min; Potassium 4.1 mmol/L (3.5-5.1)
[2019-08-11] MEDS: ACETAMINOPHEN 325 MG TAB PO PRN (10:40)
[2019-08-11] MEDS: HEPARIN SOD 5,000 UNIT/0.5 ML VIAL SQ SCH ×2 (13:04→19:52)
[2019-08-11] MEDS: CYCLOBENZAPRINE HCL 10 MG TAB PO PRN (20:04)
[2019-08-11] MEDS: LURASIDONE HCL 40 MG TAB PO SCH (20:10)
[2019-08-11] MEDS: PRAZOSIN HCL 1 MG CAP PO SCH (20:10)
[2019-08-12] MEDS: ACETAMINOPHEN W/CODEINE #3 1 TAB PO PRN ×2 (02:34→15:39)
[2019-08-12] MEDS: HEPARIN SOD 5,000 UNIT/0.5 ML VIAL SQ SCH ×3 (06:29→22:22)
[2019-08-12] MEDS: ACETAMINOPHEN 325 MG TAB PO PRN (06:32)
[2019-08-12] MEDS: OXYCODONE HCL IR 5 MG TAB (IMMEDIATE RELEASE) PO PRN ×4 (07:31→22:22)
[2019-08-12] MEDS: BACLOFEN 20 MG TAB PO SCH ×3 (08:27→20:32)
[2019-08-12] MEDS: PANTOprazole 40 MG TAB PO SCH (08:27)
[2019-08-12] MEDS: TOPIRAMATE 100 MG TAB PO SCH ×2 (08:27→20:30)
[2019-08-12] MEDS: lisinopriL 5 MG TAB PO SCH (08:27)
[2019-08-12] MEDS: ASPIRIN 81 MG ECTAB PO SCH (08:27)
[2019-08-12] MEDS: CETIRIZINE HCL 10 MG TABLET PO SCH (08:27)
[2019-08-12] MEDS: BusPIRone 15 MG TAB PO SCH ×3 (08:27→20:31)
[2019-08-12] MEDS: LIDOCAINE 5% 1 PATCH TD SCH (08:28)
[2019-08-12] MEDS: DULOXETINE HCL 60 MG CAP PO SCH ×2 (08:28→20:31)
--- NOTE | 2019-08-12 09:14 | Hospitalist Progress Note ---
Date of Service August 12, 2019 Assessment & Plan (1) Acute radicular low back pain: (2) Lumbar disc herniation: (3) Ambulatory dysfunction: This is a 34-year-old female with a significant past medical history of cerebral palsy, bipolar depression, asthma, GERD, IBS, vitamin D deficiency, spina bifida, history of MRSA, migraines, chronic past pain, spastic HP, conversion disorder, history of narcotic abuse who presents to ED secondary to acute back pain prior to arrival. She has a history of chronic back pain requiring multiple lumbar surgeries in the past at [facility]. In ED MRI revealed Lumbar disc herniation L3-L4, mildly progressive from prior study Pt established with [facility], hx of previous lumbar surgeries, last 2013 B/L Lami L5-S1, L3-4 foraminotomy ED provider reviewed images with [facility] who felt were stable and unchanged Cauda equina r/o with report of incontinence, LANI done with good tone, PVR pending Pt requesting narcotics, but refusing steroids Hx of Narcotic abuse admit to med/surg conservative management PT/OT Ibuprofen 600mg TID tylenol #3 q6prn Limit narcotic use, pt with hx of abuse continue baclofen for spasticity (4) Cerebral palsy: supportive care PT/OT consulted (5) Hypertension: blood pressure elevated 2/2 to pain and anxiety continue lisinopril (6) Bipolar depression: continue latuda, buspar, cymbalta, prazosin (7) Migraine: continue topamax and ajovy (8) GERD (gastroesophageal reflux disease): continue PPI (9) DVT prophylaxis: SCD/TEDS for now if prolonged immobility consider lovenox Disposition: DC to SNF when bed available Follow up: PCP Dr. Post upon discharge Labs checked ROS-No Headache, No Visual Changes, No Nausea, No Vomiting, No Fever, No Chills, No Neck Pain or Stiffness, No Chest Pain, No Palpitations, No SOB, No COREAS, No Cough, No Sputum, No Wheezing, No Abdominal Pain, No Diarrhea, No Hematemesis, No Hemoptysis, No Unexpected Weight Loss, No Flank pain, No Melena, No Hematochezia, No Frequency, No Urgency, No Burning, No Hematuria, No Rashes, No Diaphoresis. Appetite is Normal, c/o back pain Physical Exam Gen-AAO x 3, NAD, Afebrile Head-NCAT, EOMI, PERRLA, Anicteric Sclera, No Posterior Pharyngeal Erythema Neck-Supple, No JVD, No Thyromegaly, No Masses, No LAD, No Bruits Lungs-Clear to Auscultation Bilaterally, No Rales, No Rhonchi, No Wheezing, No Crepitus Chest-No S4, +S1, +S2, No S3, No Murmurs, No Rubs, No Gallops, No Ectopy Abdomen-Soft, Bowel Sounds Present, Non Tender, Non Distended, No Hepatomegaly, No Splenomegaly, No Palpable Masses, No Rebound, No Rigidity, No Guarding Musculoskeletal-Full Range of Motion Bilaterally, No CVAT Extremities-No Cyanosis, No Clubbing, No Edema Nuero-Cranial Nerves II-XII grossly intact, Motor WNL, DTRs WNL, Strength WNL, Non Focal Psych-Normal Mood Admission and Anticipated Discharge Date Admission Date: August 11, 2019 Results & Data ([facility]) Vital Signs (Past 12 Hours) Vital Signs Temp Pulse Resp BP Pulse Ox 08/12/19 07:39 36.7 C 95 H 18 124/86 97 08/11/19 23:06 36.7 C 114 H 16 149/78 H 96
[2019-08-12] MEDS: CYCLOBENZAPRINE HCL 10 MG TAB PO PRN (20:30)
[2019-08-12] MEDS: LURASIDONE HCL 40 MG TAB PO SCH (20:31)
[2019-08-12] MEDS: PRAZOSIN HCL 1 MG CAP PO SCH (20:32)
[2019-08-13] MEDS: ACETAMINOPHEN W/CODEINE #3 1 TAB PO PRN ×3 (02:55→17:42)
[2019-08-13] MEDS: HEPARIN SOD 5,000 UNIT/0.5 ML VIAL SQ SCH ×3 (05:31→21:30)
[2019-08-13] MEDS: OXYCODONE HCL IR 5 MG TAB (IMMEDIATE RELEASE) PO PRN ×4 (07:50→23:21)
[2019-08-13] MEDS: LIDOCAINE 5% 1 PATCH TD SCH (08:35)
[2019-08-13] MEDS: DULOXETINE HCL 60 MG CAP PO SCH ×2 (08:35→20:15)
[2019-08-13] MEDS: PANTOprazole 40 MG TAB PO SCH (08:36)
[2019-08-13] MEDS: ASPIRIN 81 MG ECTAB PO SCH (08:36)
[2019-08-13] MEDS: CETIRIZINE HCL 10 MG TABLET PO SCH (08:37)
[2019-08-13] MEDS: BACLOFEN 20 MG TAB PO SCH ×3 (08:38→20:15)
[2019-08-13] MEDS: BusPIRone 15 MG TAB PO SCH ×3 (08:38→20:15)
[2019-08-13] MEDS: lisinopriL 5 MG TAB PO SCH (08:39)
[2019-08-13] MEDS: TOPIRAMATE 100 MG TAB PO SCH ×2 (08:41→20:15)
--- NOTE | 2019-08-13 08:54 | Hospitalist Progress Note ---
Date of Service August 13, 2019 Assessment & Plan (1) Acute radicular low back pain: (2) Lumbar disc herniation: (3) Ambulatory dysfunction: This is a 34-year-old female with a significant past medical history of cerebral palsy, bipolar depression, asthma, GERD, IBS, vitamin D deficiency, spina bifida, history of MRSA, migraines, chronic past pain, spastic HP, conversion disorder, history of narcotic abuse who presents to ED secondary to acute back pain prior to arrival. She has a history of chronic back pain requiring multiple lumbar surgeries in the past at [facility]. In ED MRI revealed Lumbar disc herniation L3-L4, mildly progressive from prior study Pt established with [facility], hx of previous lumbar surgeries, last 2013 B/L Lami L5-S1, L3-4 foraminotomy ED provider reviewed images with [facility] who felt were stable and unchanged Cauda equina r/o with report of incontinence, LANI done with good tone, PVR pending Pt requesting narcotics, but refusing steroids Hx of Narcotic abuse admit to med/surg conservative management PT/OT Ibuprofen 600mg TID tylenol #3 q6prn Limit narcotic use, pt with hx of abuse continue baclofen for spasticity (4) Cerebral palsy: supportive care PT/OT consulted (5) Hypertension: blood pressure elevated 2/2 to pain and anxiety continue lisinopril (6) Bipolar depression: continue latuda, buspar, cymbalta, prazosin (7) Migraine: continue topamax and ajovy (8) GERD (gastroesophageal reflux disease): continue PPI (9) DVT prophylaxis: SCD/TEDS for now if prolonged immobility consider lovenox Disposition: DC home 1-2 days Follow up: PCP Dr. Post upon discharge Labs checked ROS-No Headache, No Visual Changes, No Nausea, No Vomiting, No Fever, No Chills, No Neck Pain or Stiffness, No Chest Pain, No Palpitations, No SOB, No COREAS, No Cough, No Sputum, No Wheezing, No Abdominal Pain, No Diarrhea, No Hematemesis, No Hemoptysis, No Unexpected Weight Loss, No Flank pain, No Melena, No Hematochezia, No Frequency, No Urgency, No Burning, No Hematuria, No Rashes, No Diaphoresis. Appetite is Normal, c/o back pain, Moving a little better, able to stand Physical Exam Gen-AAO x 3, NAD, Afebrile Head-NCAT, EOMI, PERRLA, Anicteric Sclera, No Posterior Pharyngeal Erythema Neck-Supple, No JVD, No Thyromegaly, No Masses, No LAD, No Bruits Lungs-Clear to Auscultation Bilaterally, No Rales, No Rhonchi, No Wheezing, No Crepitus Chest-No S4, +S1, +S2, No S3, No Murmurs, No Rubs, No Gallops, No Ectopy Abdomen-Soft, Bowel Sounds Present, Non Tender, Non Distended, No Hepatomegaly, No Splenomegaly, No Palpable Masses, No Rebound, No Rigidity, No Guarding Musculoskeletal-Full Range of Motion Bilaterally, No CVAT Extremities-No Cyanosis, No Clubbing, No Edema Nuero-Cranial Nerves II-XII grossly intact, Motor WNL, DTRs WNL, Strength WNL, Non Focal Psych-Normal Mood Admission and Anticipated Discharge Date Admission Date: August 11, 2019 Anticipated date of discharge: 08/14/19 Results & Data ([facility]) Vital Signs (Past 12 Hours) Vital Signs Temp Pulse Resp BP Pulse Ox 08/13/19 08:13 36.9 C 88 18 130/88 98 08/12/19 22:58 37.0 C 107 H 16 127/77 94
[2019-08-13] MEDS: IBUPROFEN 200 MG TAB PO PRN (10:05)
[2019-08-13] MEDS: CYCLOBENZAPRINE HCL 10 MG TAB PO PRN (20:13)
[2019-08-13] MEDS: PRAZOSIN HCL 1 MG CAP PO SCH (20:14)
[2019-08-13] MEDS: LURASIDONE HCL 40 MG TAB PO SCH (20:16)
[2019-08-14] MEDS: OXYCODONE HCL IR 5 MG TAB (IMMEDIATE RELEASE) PO PRN (05:57)
[2019-08-14] MEDS: HEPARIN SOD 5,000 UNIT/0.5 ML VIAL SQ SCH (05:59)
[2019-08-14 08:03] LABS: Hematocrit (blood only) 38.9 % (37-47); Hemoglobin 12.9 g/dL (12.0-16.0); Mean Corpuscular Hemoglobin 29.3 pg (25-34); Mean Corpuscular Hgb Conc 33.2 g/dL (32-36); Mean Corpuscular Volume 88.2 fL (80-100); Platelet Count 245 K/uL (130-400); RDW Coefficient of Variation 14.8 % (11.5-14.5); RDW Standard Deviation 47.7 fL (36.4-46.3); Red Blood Count 4.41 M/uL (4.2-5.4); White Blood Count 5.24 K/uL (4.8-10.8)
[2019-08-14] MEDS: DULOXETINE HCL 60 MG CAP PO SCH (08:27)
[2019-08-14] MEDS: BusPIRone 15 MG TAB PO SCH (08:27)
[2019-08-14] MEDS: LIDOCAINE 5% 1 PATCH TD SCH (08:28)
[2019-08-14] MEDS: ASPIRIN 81 MG ECTAB PO SCH (08:28)
[2019-08-14] MEDS: BACLOFEN 20 MG TAB PO SCH (08:28)
[2019-08-14] MEDS: PANTOprazole 40 MG TAB PO SCH (08:28)
[2019-08-14] MEDS: CETIRIZINE HCL 10 MG TABLET PO SCH (08:29)
[2019-08-14] MEDS: TOPIRAMATE 100 MG TAB PO SCH (08:29)
[2019-08-14] MEDS: lisinopriL 5 MG TAB PO SCH (08:30)
[2019-08-14 08:37] LABS: BUN Creatinine Ratio 21.8 (10-20); Calcium 9.6 mg/dl (8.5-10.1); Creatinine Clr Calc Pharmacy 120.7 ml/min; Est GFR (African American) 117.6; Est GFR (Non-African American) 101.4; Potassium 3.5 mmol/L (3.5-5.1)
--- NOTE | 2019-08-14 08:49 | Discharge Summary ---
Date of Service August 14, 2019 Admission HPI Per Admitting Provider This is a 34-year-old male with a significant past medical history of cerebral palsy, bipolar depression, asthma, GERD, IBS, vitamin D deficiency, spina bifida, history of MRSA, migraines, chronic past pain, spastic HP, conversion disorder, history of narcotic abuse who presents to ED secondary to acute back pain prior to arrival. She has a history of chronic back pain requiring multiple lumbar surgeries in the past at [facility]. She was on a transport van in route to Dr. Schafer office, pain management with [facility]. In route she they traveled over a bump and she felt a, "pop in her back causing acute pain and urinary incontinence. "She was seen and evaluated in Dr. Schafer's office in which she was supposed to receive a Botox injection and was transferred over to ED for further evaluation given symptoms. At the onset of the pop in her back she developed acute central low back pain with radiation down right lateral leg to foot with associated tingling. She had 2 episodes of urinary incontinence per patient. She further complains of generalized nausea. At baseline she does live alone and is able to ambulate with a walker. She has a scooter for longer distance. She denies any recent illness, fever, chills, sweats, lightheadedness, dizziness, chest pain, shortness, palpitations, emesis, abdominal pain. Last BM was yesterday. She has not urinated in ED. Her appetite has been okay. Of significance she recently did have left foot surgery by Dr. Hernández on 07/30/2019. She has been taking tylenol with codeine for this as well as tramadol. In ED patient underwent work-up to rule out cauda equina. She underwent lumbar spine MRI Which revealed mildly progressive stagnation L3-4 compared to prior study. Per Shiva Molina PA-C in ED he spoke with [facility] provider and reviewed images which felt images were similar and stable to prior. She further underwent pelvic xray and femur xray negative for fracture. Attempt was to discharge home; however pt unable to ambulate. per ED provider LANI was performed which revealed good sphincter tone, PVR was pending. CBC, CMP unremarkable. Urine + leuks, > 30 epis, likely contaminated specimen. Admission Exam Per Admitting Provider Constitutional: WD/WN, vitals as above, NAD, sitting up in bed, pleasant, conversing easily Head: Normocephalic, Atraumatic Eyes: PERRL, conjunctivae normal, anicteric sclerae ENMT: external ear and nose normal, oropharynx normal Neck: trachea midline, no thyromegaly normal visual inspection Respiratory: normal respiratory effort, lungs clear to auscultation, no wheeze, rales, rhonchi. Normal insp/exp effort, no accessory muscle use Cardiovascular: RRR, no murmur, no edema Vessels: no JVD or carotid bruit Chest: normal inspection of chest Abdomen: normal bowel sounds, soft, nontender, no hepatosplenomegaly Musculoskeletal: no cyanosis or clubbing, bilateral upper extremities good active range of motion, strength 5 out of 5. Bilateral lower extremities very spastic, limited active range of motion, difficult passive range of motion secondary to spasticity, bilateral patellar reflex intact +2, left foot dressing CDI Skin: no rashes, warm and dry normal turgor Neurologic: PERRL, EOMI, accommodation nl, no face palsy, no dysarthria CN's II-XI intact bilaterally and moves all extremities Psychiatric: A+Ox3, euthymic affect Lymphatic: no cervical or axillary lymphadenopathy : deferred Principal Diagnosis (1) Acute radicular low back pain: (2) Lumbar disc herniation: (3) Ambulatory dysfunction: (4) Cerebral palsy: (5) Hypertension: (6) Bipolar depression: (7) Migraine: (8) GERD (gastroesophageal reflux disease) Discharge Data Allergies Allergy/AdvReac Type Severity Reaction Status Date / Time aztreonam Allergy Severe SHORTNESS Verified 08/09/19 12:46 OF BREATH Cephalosporins Allergy Severe SHORTNESS Verified 08/09/19 12:46 OF BREATH ketorolac Allergy Severe ITCHY Verified 08/09/19 12:46 linezolid Allergy Severe SHORTNESS Verified 08/09/19 12:46 OF BREATH Penicillins Allergy Severe SHORTNESS Verified 08/09/19 12:46 OF BREATH propranolol Allergy Severe Anaphylaxis Verified 08/09/19 19:02 Sulfa (Sulfonamide Allergy Severe SHORTNESS Verified 08/09/19 12:46 Antibiotics) OF BREATH fexofenadine Allergy Intermediate HIVES Verified 08/09/19 12:46 latex Allergy Mild Itching Verified 08/09/19 12:46 Beta-Blockers Allergy Unknown unknown Verified 08/09/19 12:46 (Beta-Adrenergic Bloc meperidine Allergy Unknown RESPIRATORY Verified 08/09/19 12:46 DISTRESS neomycin Allergy Unknown . Verified 08/09/19 12:46 propoxyphene Allergy Unknown UNKNOWN Verified 08/09/19 12:46 Quinolones Allergy Unknown QUINOLONES-SOB, Verified 08/09/19 12:46 CAN TAKE CIPRO W/O PROBLEM tetracycline Allergy Unknown UNKNOWN Verified 08/09/19 12:46 vancomycin Allergy Unknown REDNESS Unverified 08/09/19 12:46 verapamil Allergy Unknown UNKNOWN Verified 08/09/19 12:46 aripiprazole [From Abilify] Allergy Verified 08/09/19 19:02 lithium Allergy Verified 08/09/19 19:02 Consultations 08/09/19 18:59 ED Decision to Admit Stat 08/09/19 21:49 Consult Case Management - Discharge Planning Routine 08/11/19 08:05 Consult Case Management - Discharge Planning Routine 08/13/19 08:50 Consult Case Management - Discharge Planning Routine Ordered Studies 08/09/19 11:17 MR lumbar spine wo con Stat Hospital Course (1) Acute radicular low back pain: (2) Lumbar disc herniation: (3) Ambulatory dysfunction: This is a 34-year-old female with a significant past medical history of cerebral palsy, bipolar depression, asthma, GERD, IBS, vitamin D deficiency, spina bifida, history of MRSA, migraines, chronic past pain, spastic HP, conversion disorder, history of narcotic abuse who presents to ED secondary to acute back pain prior to arrival. She has a history of chronic back pain requiring multiple lumbar surgeries in the past at [facility]. In ED MRI revealed Lumbar disc herniation L3-L4, mildly progressive from prior study Pt established with [facility], hx of previous lumbar surgeries, last 2013 B/L Lami L5-S1, L3-4 foraminotomy ED provider reviewed images with [facility] who felt were stable and unchanged Cauda equina r/o with report of incontinence, LANI done with good tone, PVR pending Pt requesting narcotics, but refusing steroids Hx of Narcotic abuse admit to med/surg conservative management PT/OT Ibuprofen 600mg TID tylenol #3 q6prn Limit narcotic use, pt with hx of abuse continue baclofen for spasticity (4) Cerebral palsy: supportive care PT/OT consulted (5) Hypertension: blood pressure elevated 2/2 to pain and anxiety continue lisinopril (6) Bipolar depression: continue latuda, buspar, cymbalta, prazosin (7) Migraine: continue topamax and ajovy (8) GERD (gastroesophageal reflux disease): continue PPI (9) DVT prophylaxis: SCD/TEDS for now if prolonged immobility consider lovenox Disposition: DC home 1-2 days Follow up: PCP Dr. Post upon discharge Labs checked ROS-No Headache, No Visual Changes, No Nausea, No Vomiting, No Fever, No Chills, No Neck Pain or Stiffness, No Chest Pain, No Palpitations, No SOB, No COREAS, No Cough, No Sputum, No Wheezing, No Abdominal Pain, No Diarrhea, No Hematemesis, No Hemoptysis, No Unexpected Weight Loss, No Flank pain, No Melena, No Hematochezia, No Frequency, No Urgency, No Burning, No Hematuria, No Rashes, No Diaphoresis. Appetite is Normal, c/o back pain, Moving a little better, able to stand Physical Exam Gen-AAO x 3, NAD, Afebrile Head-NCAT, EOMI, PERRLA, Anicteric Sclera, No Posterior Pharyngeal Erythema Neck-Supple, No JVD, No Thyromegaly, No Masses, No LAD, No Bruits Lungs-Clear to Auscultation Bilaterally, No Rales, No Rhonchi, No Wheezing, No Crepitus Chest-No S4, +S1, +S2, No S3, No Murmurs, No Rubs, No Gallops, No Ectopy Abdomen-Soft, Bowel Sounds Present, Non Tender, Non Distended, No Hepatomegaly, No Splenomegaly, No Palpable Masses, No Rebound, No Rigidity, No Guarding Musculoskeletal-Full Range of Motion Bilaterally, No CVAT Extremities-No Cyanosis, No Clubbing, No Edema Nuero-Cranial Nerves II-XII grossly intact, Motor WNL, DTRs WNL, Strength WNL, Non Focal Psych-Normal Mood Total Time Total Time Spent Total Time Spent (In Minutes): 45 Discharge Plan Discharge Items Patient Disposition: Personal Usp Reason For Visit: BACK PAIN,L3-4 DISC HERNIATION Discharge Diagnosis: (1) Acute radicular low back pain: (2) Lumbar disc herniation: (3) Ambulatory dysfunction: (4) Cerebral palsy: (5) Hypertension: (6) Bipolar depression: (7) Migraine: (8) GERD (gastroesophageal reflux disease) Condition on Discharge: Good Activity: Resume your previous activity Lifting: None Bathing: No limitations Exercise/Sports: None Driving/Machine Use: None Weightbearing: Full weightbearing Non-emergency contact: Primary Care Provider Call non-emergency contact if: you have any medication questions Follow-up/Referrals: Percy Post MD [Primary Care Provider] - 08/17/19 10:45 am Diet: Carb Consistent or DM2 and Heart Healthy Addtl Attending Provider Instructions: Ambulate Ad Nano Pending Studies at Discharge: No Stand-Alone Forms: RSP Tooling, Smoking Cessation, Opioid Pain Management Skilled Items Patient informed of condition?: Yes DNR: No Discharge Level of Care: Other Communicable Disease: No Discharge Prognosis: Improving Lines: None Urinary Catheter: No Medications and DC Order Prescriptions: New acetaminophen-codeine 300-30 mg Tablet 1 tab PO Q6H PRN (Reason: pain) Qty: 45 RF: 0 lidocaine 5 % Adhesive Patch,Medicated 1 patch transdermal QAM Qty: 15 RF: 0 ibuprofen 200 mg Tablet 200 mg PO Q6H PRN (Reason: fever or pain) Qty: 90 RF: 0 amitriptyline 25 mg tablet 25 mg PO HS PRN (Reason: back pain) Qty: 14 RF: 0 Continued prazosin 1 mg Capsule 1 mg PO HS RF: 0 ibuprofen 200 mg Tablet 200 mg PO Q6H PRN (Reason: Pain) RF: 0 baclofen 20 mg Tablet 20 mg PO TID RF: 0 lisinopril 5 mg tablet 5 mg PO QAM RF: 0 topiramate 100 mg tablet 100 mg PO BID RF: 0 Latuda 80 mg tablet 80 mg PO HS RF: 0 Ajovy 225 mg/1.5 mL syringe 225 mg SUBCUT MONTHLY RF: 0 cetirizine [Zyrtec] 10 mg Tablet 10 mg PO QAM RF: 0 hydroxyzine HCl 50 mg Tablet 50 mg PO HS PRN (Reason: Anxiety) RF: 0 prochlorperazine maleate [Compazine] 10 mg Tablet 10 mg PO Q8 PRN (Reason: Nausea) RF: 0 aspirin 81 mg Tablet,Delayed Release (Dr/Ec) 81 mg PO QAM RF: 0 esomeprazole magnesium [Nexium] 40 mg Capsule,Delayed Release(Dr/Ec) 40 mg PO QAM RF: 0 polyethylene glycol 3350 [Miralax] 17 gram/dose Powder 17 g PO BID PRN (Reason: Constipation) RF: 0 albuterol sulfate [Ventolin HFA] 90 mcg/actuation Hfa Aerosol Inhaler 2 puff INHALATION QID PRN (Reason: Shortness Of Breath) RF: 0 prazosin 2 mg Capsule 2 mg PO HS RF: 0 buspirone 15 mg Tablet 15 mg PO TID RF: 0 duloxetine [Cymbalta] 60 mg Capsule,Delayed Release(Dr/Ec) 60 mg PO BID RF: 0 cyclobenzaprine 10 mg Tablet 10 mg PO HS PRN (Reason: Pain) RF: 0 phenazopyridine [Pyridium] 100 mg tablet 100 mg PO Q8H PRN (Reason: pain) Qty: 6 RF: 0 Discharge Orders: Discharge Order (Routine); Ordered 08/14/19 Ordered By: Jose Quevedo/Other Patient Handouts: Surgery Prevent DVT After Admission Data Admit Date/Time: 08/11/19 09:54 Attending Provider: Jose Robledo Admit Provider: Ap New Primary Care Provider: Percy Post Other Providers: [facility] ; Ap New ; Radha Jones ; Sesar Saleem [place] Other Interventions: Discharge Summary Assessment (RN) Last Done: 08/14/19 08:23
[2019-08-14] MEDS: ACETAMINOPHEN W/CODEINE #3 1 TAB PO PRN (09:01)
== END 2019-08-14 09:30 | disposition home or self-care (01) | DRG 552 ==
LOC: ED 10:52 → 3N 10:52 → SUATTDRO 19:36 → 3N 20:56

== ENCOUNTER 2023-11-10 09:23 | Inpatient (IN) ==
--- NOTE | 2023-11-10 10:11 | Emergency Department Note ---
Impression & Plan Complicated UTI (urinary tract infection), Neurogenic bladder ED Provider Note NAME: JEANNIE VUONG AGE: 38 SEX: F : 1985 ARRIVES VIA: Walk-In INFORMANT: Patient, ED PROVIDER(S): Trang Quiroz MD CHIEF COMPLAINT: Lower abdominal pain HPI: This is a 38-year-old female with history of diabetes, neurogenic bladder, frequent UTIs, suprapubic catheter presenting for lower abdominal pain. Patient states that she has pain similar to previous bladder infections where she is having bladder spasms. Her suprapubic Pedraza was recently changed on the , about 2 weeks ago, by urology. At the same time they replaced suprapubic Pedraza they also did bladder injections. She notes that her pain is not improving as she slightly worsened. She notes suprapubic pain radiating to bilateral flanks. She notes she started on Augmentin currently for a suspected UTI. She is over usp down and no notes no improvement as well. She notes nausea without vomiting. No fevers or chills. ROS: See above HPI for pertinent positives & negatives. A total of 10 systems reviewed and were otherwise negative. PHYSICAL EXAMINATION: General: Chronically ill-appearing Head: Normocephalic and atraumatic Eyes: Normal inspection, extraocular muscles intact Ear, nose, throat: Normal external exam Neck: Normal range of motion Respiratory: lungs clear to auscultation bilaterally Cardiovascular: Regular rate/rhythm, no murmur GI: Cipro Pedraza in place without surrounding erythema or discharge, no rebound or tenderness Extremities: nontender, moves all extremities Neuro: The patient awake and alert, appropriately conversive, no focal deficits, symmetric faces Skin: Warm, dry, and intact MEDICAL DECISION MAKING: This is a 38-year-old female with history of diabetes, neurogenic bladder, frequent UTIs, fever catheter presenting for lower abdominal pain. Will do check of urinalysis. Will do CBC, BMP, LFTs. -Blood work is reviewed showed leukocytosis or anemia. Her electrolytes within normal limits. Normal creatinine. Urinalysis continues to show signs of UTI at this time. -CT ab/pelvis reveals signs of bladder wall thickening. -Overall patient appears clinically well, will require admission for failed outpatient antibiotics with continued UTI symptoms, urinalysis showing positive signs UTI with CAT scan evidence of cystitis. -Will give Zosyn for empiric coverage based on patient's previous results found by pharmacist -[facility] Admitted under Dr. Stephens. Differential diagnosis: UTI, abscess, seroma, SBO, diverticulitis ER treatment provided: See below Diagnostics interpreted by me: ECG: None Cardiac Monitoring: An order was placed for continuous cardiac monitoring. The monitor shows a rate of 77 with sinus rhythm. Laboratory studies: As stated above and show below. Imaging studies: See below. Past Med/Surg History Problem List (Updated 11/10/23 @ 16:30 by Trang Quiroz MD) Complicated UTI (urinary tract infection) (Acute) Bladder spasms Allergy to multiple antibiotics Frequent UTI Chronic suprapubic catheter Neurogenic bladder (Acute) Chronic SP catheter Bipolar depression Ambulatory dysfunction (Acute) pt uses either wheelchair or walker, states she is able to stand and pivot herself Urinary retention (Acute) Right lower quadrant abdominal pain (Acute) Radicular low back pain (Acute) Neck strain (Acute) Muscle spasm of both lower legs (Acute) Lumbar contusion (Acute) Falls (Acute) Chronic back pain (Acute) Chest wall pain (Acute) Chest pain (Acute) Back pain due to injury (Acute) Abdominal pain (Acute) Suicidal ideations Paralysis of both lower limbs (Chronic) Insulin resistance (Chronic) Medical History (Updated 11/10/23 @ 16:30 by Trang Quiroz MD) History of COVID-19 diagnosed 06/2023--mild symptoms, no symptoms now Morbid obesity with BMI of 40.0-44.9, adult On anticoagulant therapy eliquis bid History of pulmonary embolism Around 2019 s/p surgery -on eliquis bid History of DVT (deep vein thrombosis) x2 Migraines Nausea and vomiting after administration of anesthetic agent NAUSEA Degenerative disc disease HARD TIME LYING ON STOMACH FOR EXTENDED PERIODS OF TIME GERD (gastroesophageal reflux disease) Depression Anxiety disorder Asthma WELL CONTROLLED, inhaler PRN Hypertension Cerebral palsy uses primarily wheelchair, sometimes walker, can stand and pivot self Surgical History (Updated 10/27/23 @ 11:01 by Blanca Isabel RN) H/O gastric bypass History of cystoscopy with exchange of suprapubic cath 04/2023 @ [facility] History of esophagogastroduodenoscopy (EGD) History of foot surgery right--hardware in place History of colonoscopy History of hysterectomy History of laminectomy H/O shoulder surgery S/P surgical manipulation of ankle joint H/O dilation and curettage Hx of eye surgery Hx of spinal fusion Hx of cholecystectomy Family History Father Alive and well Hypertension Mother Alive and well Hypertension Other No family history of adverse response to anesthesia Social History Smoking Status: Never smoker Second Hand Exposure: No; Do You Dip or Chew Tobacco: No; Hx Alcohol Use: No Hx Substance Use: No Preferred Language: Citizen Of [place] Communication Ability: Effective Visual Impairment: No Limitations Toll Testboard Worker Required: No Beliefs That Will Affect Care: None marital status: Single Current Living Situation: Alone Current Living Situation Comment: caregivers come in daily--8-8pm Feels Safe at Home: Yes Assistive Devices: Glasses and Wheelchair Allergies Allergies Allergy/AdvReac Type Severity Reaction Status Date / Time aripiprazole [From Abilify] Allergy Severe COULDN'T Verified 11/10/23 12:01 BREATHE aztreonam Allergy Severe SHORTNESS Verified 11/10/23 12:01 OF BREATH Beta-Blockers Allergy Severe COULDN'T Verified 11/10/23 12:01 (Beta-Adrenergic Bloc BREATHE Gadolinium-Containing Allergy Severe Swelling Verified 11/10/23 12:01 Contrast Medi of Lip/Tongue/Throat hydrocodone Allergy Severe Hives Verified 11/10/23 12:01 lithium Allergy Severe UNCONSCIOUS, Verified 11/10/23 12:01 UNRESPONSIVE meperidine Allergy Severe RESPIRATORY Verified 11/10/23 12:01 DISTRESS propranolol Allergy Severe Anaphylaxis Verified 11/10/23 12:01 verapamil Allergy Severe "Cant Verified 11/10/23 12:01 breathe" fexofenadine Allergy Intermediate HIVES Verified 11/10/23 12:01 linezolid Allergy Intermediate SHORTNESS Verified 11/10/23 12:01 OF BREATH propoxyphene Allergy Intermediate Hives Verified 11/10/23 12:01 Sulfa (Sulfonamide Allergy Intermediate SHORTNESS Verified 11/10/23 12:01 Antibiotics) OF BREATH ketorolac Allergy Mild ITCHY Verified 11/10/23 12:01 latex Allergy Mild Itching Verified 11/10/23 12:01 neomycin Allergy Mild ITCHY Verified 11/10/23 12:01 tetracycline Allergy Unknown UNKNOWN Verified 11/10/23 12:01 Home Meds Home Medications Medication Instructions Recorded Confirmed albuterol sulfate 90 mcg/actuation 2 puff inhalation QID PRN 04/13/18 11/10/23 aerosol inhaler (Ventolin HFA) Shortness Of Breath cetirizine 10 mg tablet (Zyrtec) 10 mg PO QAM 04/13/18 11/10/23 duloxetine 60 mg capsule,delayed 60 mg PO QAM 04/13/18 11/10/23 release (Cymbalta) hydroxyzine HCl 50 mg tablet 50 mg PO TID PRN Anxiety 04/13/18 11/10/23 polyethylene glycol 3350 17 17 g PO BID PRN Constipation 04/13/18 11/10/23 gram/dose oral powder (Miralax) prochlorperazine maleate 10 mg 10 mg PO Q8H PRN Nausea 04/13/18 11/10/23 tablet (Compazine) baclofen 20 mg tablet 20 mg PO TID 08/09/19 11/10/23 cyclobenzaprine 10 mg tablet 10 mg PO BID PRN Muscle Spasm 03/29/20 11/10/23 onabotulinumtoxinA 100 unit 200 unit IM Q90D 03/29/20 11/10/23 solution for injection (Botox) ondansetron 4 mg disintegrating 4 mg PO Q6H PRN Nausea And Vomiting 03/29/20 11/10/23 tablet acetaminophen 500 mg tablet 1,000 mg PO Q6H PRN Pain 09/11/20 11/10/23 (Tylenol Extra Strength) diazepam 2 mg tablet 2 mg PO TID 09/11/20 11/10/23 trazodone 100 mg tablet 100 mg PO HS PRN Sleep 08/13/21 11/10/23 fremanezumab-vfrm 225 mg/1.5 mL 225 mg subcut MONTHLY 02/03/23 11/10/23 subcutaneous auto-injector (Ajovy) pantoprazole 40 mg granules 40 mg PO BID 02/03/23 11/10/23 delayed-release for susp in packet (Protonix) ramelteon 8 mg tablet 8 mg PO HS PRN Sleep 02/03/23 11/10/23 apixaban 5 mg tablet (Eliquis) 5 mg PO BID 04/04/23 11/10/23 lurasidone 40 mg tablet (Latuda) 40 mg PO PM 04/04/23 11/10/23 acetaminophen 300 mg-codeine 30 mg 1 tab PO TID PRN Pain 04/21/23 11/10/23 tablet clotrimazole 1 % topical cream 1 applic topical UD PRN Rash 09/29/23 11/10/23 famotidine 20 mg tablet 20 mg PO DAILY PRN Acid Reflux 09/29/23 11/10/23 topiramate 50 mg tablet 50 mg PO BID 09/29/23 11/10/23 cholecalciferol (vitamin D3) 25 25 mcg PO QAM 10/14/23 11/10/23 mcg (1,000 unit) tablet (Vitamin D3) cyanocobalamin (vitamin B-12) 1,000 mcg IM UD 10/14/23 11/10/23 1,000 mcg/mL injection solution docusate sodium 100 mg capsule 200 mg PO DAILY PRN Constipation 10/14/23 11/10/23 (Colace) duloxetine 30 mg capsule,delayed 30 mg PO QAM 10/14/23 11/10/23 release (Cymbalta) mirabegron 50 mg tablet,extended 50 mg PO QAM 10/14/23 11/10/23 release 24 hr (Myrbetriq) multivitamin 1 tab PO QAM 10/14/23 11/10/23 tolterodine 2 mg capsule,extended 2 mg PO QAM 10/14/23 11/10/23 release 24 hr (Detrol LA) amoxicillin 875 mg-potassium 1 tab PO BID 11/10/23 11/10/23 clavulanate 125 mg tablet Previous Rx's Medication Instructions Recorded oxybutynin chloride 5 mg tablet 5 mg PO Q8H PRN bladder spasms #90 09/23/23 tabs phenazopyridine 200 mg tablet 200 mg PO Q8H PRN pain #10 tabs 10/27/23 (Pyridium) Results & Data (ED) Vital Signs Vital Signs - 24 hr 11/10/23 09:25 11/10/23 14:15 Temperature 36.7 C Temperature Source Temporal Artery Scan Pulse Rate 102 H Pulse Rate [Apical] 77 Respiratory Rate 18 16 Respiratory Effort / Characteristics Non-Labored Spontaneous Respiratory Depth Normal Blood Pressure 155/106 H Blood Pressure [Right Arm] 148/77 H Blood Pressure Mean 122 Blood Pressure Mean [Right Arm] 100 Blood Pressure Position Sitting Pulse Oximetry 97 94 Oxygen Delivery Method Room Air Room Air Sepsis Recent Fever Within 48 Hours No Sepsis New/Unexplained Change in Mental Status No Sepsis Action Taken by Nursing No Action Required Laboratory Data 11/10/23 10:12 11/10/23 10:12 Lab Results 11/10/23 11/10/23 Range/Units 10:12 11:04 WBC 5.39 (4.8-10.8) K/ul RBC 4.21 (4.20-5.40) M/uL Hgb 12.2 (12.0-16.0) g/dl Hct 37.5 (37.0-47.0) % MCV 89.1 (80.0-100.0) fL MCH 29.0 (25.0-34.0) pg MCHC 32.5 (32.0-36.0) g/dL RDW Std Deviation 45.1 (36.4-46.3) fL RDW Coeff of Jerald 14.0 (11.5-14.5) % Plt Count 274 (130-400) K/uL MPV 9.8 (9.4-12.4) fL Immature Gran % (Auto) 0.6 % Neut % (Auto) 63.3 % Lymph % (Auto) 27.1 % [place] % (Auto) 7.2 % Eos % (Auto) 0.9 % Baso % (Auto) 0.9 % Neut # (Auto) 3.41 (1.40-6.50) K/uL Lymph # (Auto) 1.46 (1.20-3.40) K/uL [place] # (Auto) 0.39 (0.11-0.59) K/uL Eos # (Auto) 0.05 (0.00-0.50) K/uL Baso # (Auto) 0.05 (0.00-0.20) K/uL Immature Gran # (Auto) 0.03 (0.01-0.20) K/uL Sodium 140 (136-145) mmol/L Potassium 3.8 (3.5-5.1) mmol/L Chloride 110 H (98-107) mmol/L Carbon Dioxide 22 (21-32) mmol/L Anion Gap 8 (3-11) BUN 11 (6-23) mg/dl Creatinine 0.57 L (0.6-1.2) mg/dl Est Cr Clr Drug Dosing Not Reportable Est GFR ( Amer) 137.3 ml/min Est GFR (Non-Af Amer) 118.4 ml/min BUN/Creatinine Ratio 19.3 (10-20) Glucose 127 H (70-99(Fasting)) mg/dl Calcium 8.7 (8.6-10.3) mg/dl Lipase 30 (11-82) U/L Urine Color Yellow Urine Appearance Cloudy A (Clear) Urine pH 7.0 (4.5-7.5) Ur Specific [place] 1.013 (1.000-1.030) Urine Protein Trace H (Negative) Urine Glucose (UA) Negative (Negative) Urine Ketones Negative (Negative) Urine Blood 2+ H (Negative) Urine Nitrite Negative (Negative) Urine Bilirubin Negative (Negative) Urine Urobilinogen Negative (Negative) Ur Leukocyte Esterase 2+ H (Negative) Urine WBC (Auto) 21-50 H (0-5) /hpf Urine RBC (Auto) >20 H (0-2) /hpf U Hyaline Cast (Auto) 3-5 H (0-2) /lpf U Epithel Cells (Auto) 0-2 (0-2) /hpf Urine Bacteria (Auto) None Seen (None Seen) Administered Medications Discontinued Medications Diphenhydramine HCl (Diphenhydramine 50 Mg/Ml Vial) 25 mg IV NOW STA Stop: 11/10/23 10:42 Last Admin: 11/10/23 10:45 Dose: 25 mg Documented By: BRITT Acetaminophen (Ofirmev) 1,000 mg in 100 mls @ 400 mls/hr IV NOW STA Stop: 11/10/23 10:19 Last Admin: 11/10/23 10:41 Dose: Not Given Documented By: BRITT Piperacillin Sod/Tazobactam Sod (Zosyn) 4.5 gm in 100 mls @ 200 mls/hr IV NOW ONE Stop: 11/10/23 15:33 Last Infusion: 11/10/23 15:55 Dose: Infused Documented By: Admin: 11/10/23 15:18 Dose: 200 mls/hr Documented By: ANGELINA Ioversol (Optiray 320 100ml) 94 ml IV ONCE ONE Stop: 11/10/23 13:26 Last Admin: 11/10/23 13:25 Dose: 94 ml Documented By: DORIE Ketorolac Tromethamine (Ketorolac Tromethamine 15 Mg/Ml Vial) 15 mg IV NOW ONE Stop: 11/10/23 10:42 Last Admin: 11/10/23 10:46 Dose: 15 mg Documented By: BRITT Methylprednisolone (Methylprednisolone 125 Mg/2 Ml Vial) 125 mg IV NOW STA Stop: 11/10/23 12:46 Last Admin: 11/10/23 13:03 Dose: 125 mg Documented By: BRITT Ondansetron HCl (Ondansetron Inj 2 Mg/Ml 2 Ml Vial) 4 mg IV NOW STA Stop: 11/10/23 10:06 Last Admin: 11/10/23 10:45 Dose: 4 mg Documented By: BRITT Oxycodone HCl (Oxycodone Hcl Ir 5 Mg Tab (Immediate Release)) 5 mg PO NOW STA Stop: 11/10/23 15:06 Last Admin: 11/10/23 15:19 Dose: 5 mg Documented By: ANGELINA Imaging Data Radiologist's Impression: Abdomen/Pelvis CT 11/10/23 10:04 CT OF THE ABDOMEN AND PELVIS WITH CONTRAST CLINICAL HISTORY: suprapubic pain/spasm, recent bladder injection COMPARISON STUDY: CT of the abdomen and pelvis March 15, 2023. TECHNIQUE: Following IV administration of 94 mL of Optiray, axial images of the abdomen and pelvis were obtained from the lung bases to the proximal femurs. Images were reviewed in the axial, sagittal, and coronal planes. IV contrast was administered without complication. Automated exposure control was utilized for the study. A dose lowering technique was utilized adhering to the principles of ALARA. CT DOSE: 1485.78 mGy.cm FINDINGS: Lung bases are unremarkable. No pneumatosis, free air or portal venous gas is present. There is no biliary ductal dilatation status post cholecystectomy. There are no hepatic lesions. Spleen, adrenal glands, kidneys and pancreas are unremarkable. Fat-containing 9 mm left renal lesion represents an angiomyolipoma. This is benign. There is no hydronephrosis. There is no biliary ductal dilatation status post cholecystectomy. No abdominal or pelvic lymphadenopathy is identified. There is no evidence for a bowel obstruction status post gastric bypass. Suprapubic catheter is in place. No hydronephrosis. There are no urinary calculi. There is a moderate amount of stool within the colon. No acute fractures within the visualized skeletal structures are present. No areas of bony erosion are identified. Stable postoperative findings within the spine. Bladder wall thickening is noted. IMPRESSION: 1. Suprapubic catheter in place. Bladder wall thickening which could be correlated with urinalysis. No hydronephrosis. No urinary calculi. 2. Moderate amount of stool within colon. No bowel thickening. No bowel wall thickening. Status post gastric bypass. ACT 112: Negative or not required by law. Electronically signed by: Aaron Hernandez M.D. 11/10/2023 1:47 PM Discharge Plan Visit Data Chief Complaint: Flank Pain Stated Complaint: [facility] ED Provider: Trang Quiroz Discharge Problem: Complicated UTI (urinary tract infection), Neurogenic bladder Forms Stand Alone Forms: [employer] Prescriptions Prescriptions: No Action oxybutynin chloride 5 mg tablet 5 mg PO Q8H PRN (Reason: bladder spasms) Qty: 90 1RF topiramate 50 mg tablet 50 mg PO BID famotidine 20 mg tablet 20 mg PO DAILY PRN (Reason: Acid Reflux) clotrimazole 1 % cream 1 applic topical UD PRN (Reason: Rash) acetaminophen-codeine 300-30 mg tablet 1 tab PO TID PRN (Reason: Pain) pantoprazole [Protonix] [address] for susp in packet 40 mg PO BID ramelteon 8 mg tablet 8 mg PO HS PRN (Reason: Sleep) Nickoovy Autoinjector 225 mg/1.5 mL auto-injector 225 mg subcut MONTHLY Rx Instructions: TAKES baclofen 20 mg Tablet 20 mg PO TID cetirizine [Zyrtec] 10 mg Tablet 10 mg PO QAM hydroxyzine HCl 50 mg Tablet 50 mg PO TID PRN (Reason: Anxiety) prochlorperazine maleate [Compazine] 10 mg Tablet 10 mg PO Q8H PRN (Reason: Nausea) polyethylene glycol 3350 [Miralax] 17 gram/dose Powder 17 g PO BID PRN (Reason: Constipation) albuterol sulfate [Ventolin HFA] 90 mcg/actuation Hfa Aerosol Inhaler 2 puff INHALATION QID PRN (Reason: Shortness Of Breath) duloxetine [Cymbalta] 60 mg Capsule,Delayed Release(Dr/Ec) 60 mg PO QAM Patient Comments: with 30mg to equal 90mg cyclobenzaprine 10 mg tablet 10 mg PO BID PRN (Reason: Muscle Spasm) Botox 100 unit recon soln 200 unit IM Q90D Patient Comments: EVERY 3 MONTHS last in september 2023 ondansetron 4 mg tablet,disintegrating 4 mg PO Q6H PRN (Reason: Nausea And Vomiting) acetaminophen [Tylenol Extra Strength] 500 mg Tablet 1,000 mg PO Q6H PRN (Reason: Pain) diazepam 2 mg tablet 2 mg PO TID trazodone 100 mg tablet 100 mg PO HS PRN (Reason: Sleep) lurasidone [Latuda] 40 mg Tablet 40 mg PO PM Rx Instructions: must administer with food (at least 350 calories) Eliquis 5 mg Tablet 5 mg PO BID docusate sodium [Colace] 100 mg Capsule 200 mg PO DAILY PRN (Reason: Constipation) duloxetine [Cymbalta] 30 mg Capsule,Delayed Release(Dr/Ec) 30 mg PO QAM tolterodine [Detrol LA] 2 mg capsule,extended release 24hr 2 mg PO QAM mirabegron [Myrbetriq] 50 mg tablet extended release 24 hr 50 mg PO QAM cyanocobalamin (vitamin B-12) 1,000 mcg/mL Solution 1,000 mcg IM UD Patient Comments: every 3 months multivitamin Tablet,Chewable 1 tab PO QAM cholecalciferol (vitamin D3) [Vitamin D3] 25 mcg (1,000 unit) Tablet 25 mcg PO QAM phenazopyridine [Pyridium] 200 mg tablet 200 mg PO Q8H PRN (Reason: pain) Qty: 10 0RF amoxicillin-pot clavulanate 875-125 mg tablet 1 tab PO BID Referrals Referrals: Yady Mcneill PA-C [Outside Practitioners] -
[2023-11-10] MEDS: ACETAMINOPHEN 1,000 MG/100 ML VIAL IV STA (10:41)
[2023-11-10] MEDS: diphenhydrAMINE 50 MG/ML VIAL IV STA ×2 (10:45→17:43)
[2023-11-10] MEDS: ONDANSETRON INJ 2 MG/ML 2 ML VIAL IV STA (10:45)
[2023-11-10] MEDS: KETOROLAC TROMETHAMINE 15 MG/ML VIAL IV ONE ×2 (10:46→17:41)
[2023-11-10 10:59] LABS: Basophils # (auto) 0.05 K/uL (0.00-0.20); Basophils % (auto) 0.9 %; Eosinophils # (auto) 0.05 K/uL (0.00-0.50); Eosinophils % (auto) 0.9 %; Hematocrit (blood only) 37.5 % (37.0-47.0); Hemoglobin 12.2 g/dl (12.0-16.0); Immature Granulocytes # (auto) 0.03 K/uL (0.01-0.20); Immature Granulocytes % (auto) 0.6 %; Lymphocytes # (auto) 1.46 K/uL (1.20-3.40); Lymphocytes % (auto) 27.1 %; Mean Corpuscular Hgb Conc 32.5 g/dL (32.0-36.0); Mean Corpuscular Volume 89.1 fL (80.0-100.0); Mean Platelet Volume 9.8 fL (9.4-12.4); Monocytes # (auto) 0.39 K/uL (0.11-0.59); Monocytes % (auto) 7.2 %; Neutrophils # (auto) 3.41 K/uL (1.40-6.50); Neutrophils % (auto) 63.3 %; Platelet Count 274 K/uL (130-400); RDW Standard Deviation 45.1 fL (36.4-46.3); Red Blood Count 4.21 M/uL (4.20-5.40); White Blood Count 5.39 K/ul (4.8-10.8)
[2023-11-10 11:40] LABS: Anion Gap 8 (3-11); BUN Creatinine Ratio 19.3 (10-20); Blood Urea Nitrogen 11 mg/dl (6-23); Calcium 8.7 mg/dl (8.6-10.3); Carbon Dioxide 22 mmol/L (21-32); Chloride 110 mmol/L (98-107); Est GFR (African American) 137.3 ml/min; Est GFR (Non-African American) 118.4 ml/min; Glucose 127 mg/dl (70-99(Fasting)); Lipase 30 U/L (11-82); Potassium 3.8 mmol/L (3.5-5.1); Sodium 140 mmol/L (136-145)
[2023-11-10 11:44] LABS: Appearance Urine Cloudy (Clear); Bacteria Urine Automated None Seen (None Seen); Bilirubin Urine Negative (Negative); Blood Urine 2+ (Negative); Color Urine Yellow; Epithelial Cell Urine Auto 0-2 /hpf (0-2); Glucose Urine UA Negative (Negative); Ketones Urine Negative (Negative); Leukocyte Esterase Urine 2+ (Negative); Nitrite Urine Negative (Negative); Protein Urine Trace (Negative); RBC Urine Automated >20 /hpf (0-2); Specific Gravity Urine 1.013 (1.000-1.030); Urobilinogen Urine Negative (Negative); WBC Urine Automated 21-50 /hpf (0-5)
[2023-11-10] MEDS: methylPREDNISolone 125 MG/2 ML VIAL IV STA (13:03)
[2023-11-10] MEDS: OPTIRAY 320 100ml IV ONE (13:25)
--- NOTE | 2023-11-10 13:48 | CT Scan Report ---
CT OF THE ABDOMEN AND PELVIS WITH CONTRAST CLINICAL HISTORY: suprapubic pain/spasm, recent bladder injection COMPARISON STUDY: CT of the abdomen and pelvis March 15, 2023. TECHNIQUE: Following IV administration of 94 mL of Optiray, axial images of the abdomen and pelvis we re obtained from the lung bases to the proximal femurs. Images were reviewed in the axial, sagittal, and coronal planes. IV contrast was administered without complication. Automated exposure control wa s utilized for the study. A dose lowering technique was utilized adhering to the principles of ALARA . CT DOSE: 1485.78 mGy.cm FINDINGS: Lung bases are unremarkable. No pneumatosis, free air or portal venous gas is present. Ther e is no biliary ductal dilatation status post cholecystectomy. There are no hepatic lesions. Spleen, adrenal glands, kidneys and pancreas are unremarkable. Fat-containing 9 mm left renal lesion represen ts an angiomyolipoma. This is benign. There is no hydronephrosis. There is no biliary ductal dilatati on status post cholecystectomy. No abdominal or pelvic lymphadenopathy is identified. There is no tasneem dence for a bowel obstruction status post gastric bypass. Suprapubic catheter is in place. No hydrone phrosis. There are no urinary calculi. There is a moderate amount of stool within the colon. No acute fractures within the visualized skeletal structures are present. No areas of bony erosion are identi fied. Stable postoperative findings within the spine. Bladder wall thickening is noted. IMPRESSION: 1. Suprapubic catheter in place. Bladder wall thickening which could be correlated with urinalysis. N o hydronephrosis. No urinary calculi. 2. Moderate amount of stool within colon. No bowel thickening. No bowel wall thickening. Status post gastric bypass. ACT 112: Negative or not required by law. Electronically signed by: Aaron Hernandez M.D. 11/10/2023 1:47 PM
[2023-11-10] MEDS: PIPERACILLIN/TAZOBACTAM 4.5 GM/100 ML BAG IV ONE (15:18)
[2023-11-10] MEDS: oxyCODONE HCL IR 5 MG TAB (IMMEDIATE RELEASE) PO STA (15:19)
[2023-11-10] MEDS ORDERED: VANCOMYCIN CONSULT ACTIVE PRN (15:22)
--- NOTE | 2023-11-10 15:45 | History & Physical Report ---
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 Labs performed in ED today are rather unremarkable, no evidence of leukocytosis. RBC 4.21, Hgb 12.2, Hct 37.5 --> No acute anemia process at play. Chloride slightly elevated at 110, but no other electrolyte abnormalities present. UA revealed evidence of blood, leukocyte Estrace, WBC and RBC. CT of abdomen/pelvis displayed the following: * Suprapubic catheter in place, bladder wall thickening, NO hydronephrosis or urinary calculi. * Moderate amount of stool within colon. No bowel wall thickening, s/p gastric bypass. Most recent urine culture 11/06/23 grew Enterococcus. 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 Will proceed with IV DAPTOMYCIN regimen. -IV daptomycin regimen, 4mg/kg daily. No need for cardiac monitoring at this time, vitals stable. -PRN IV Zofran and PO Tylenol orders in place. Urology consult placed given patient's hx. -Bowel regimen initiated given CT findings above, scheduled daily MiraLAX and Colace. -Holding AIRCRAFT COMMUNICATOR Compazine and Zofran while hospitalized. -Can continue AIRCRAFT COMMUNICATOR trazodone and ramelteon for sleep. (2) Chronic suprapubic catheter: (3) Neurogenic bladder: (4) Urinary retention: (5) Bladder spasms: Plan: She does follow / [facility] given hx of neurogenic bladder, chronic suprapubic catheter AIRCRAFT COMMUNICATOR. She had a cystoscopy w/ Botox injections on 10/26 w/ Dr. Olmos. Her suprapubic catheter was also changed at that time. -Urology consult placed as mentioned above, appreciate their recommendations/input at this time. -Will continue AIRCRAFT COMMUNICATOR mirabegron, oxybutynin, phenazopyridine and tolterodine. -Monitor I&O's, watch for any new potential development of hematuria. -Continue to monitor suprapubic catheter site, does not currently appear infected on examination. (6) Cerebral palsy: (7) Paralysis of both lower limbs: (8) Muscle spasm of both lower legs: (9) Ambulatory dysfunction: Plan: Patient does have 2 rotating caretakers at home to assist her throughout the day with ambulation/ADLs. -OOB w/ assistance activity order in place. -Will continue AIRCRAFT COMMUNICATOR baclofen, cyclobenzaprine and diazepam. (10) Vaginal yeast infection: (11) Intertriginous candidiasis: Plan: As per HPI, patient is complaining of vaginal yeast infection symptoms x few da ys. -Order placed for oral fluconazole therapy. Can continue AIRCRAFT COMMUNICATOR PRN topical clotrimazole therapy for intertriginous candidiasis. -Continue to reassess vaginal yeast infection symptoms throughout hos pitalization. (12) Bipolar depression: (13) Depression: (14) Anxiety disorder: Plan: -Will continue AIRCRAFT COMMUNICATOR psychiatric medications while hospitalized. (15) Hypertension: Plan: Appears to have been on anti-hypertensive medications in the past according to [facility] documentation, but is not currently on antihypertensive therapy. -Most recent BP in ED 135/75. Will continue to monitor throughout hospitalization, no need for anti-hypertensive medication intervention at this time. (16) GERD (gastroesophageal reflux disease): Plan: -Will continue AIRCRAFT COMMUNICATOR daily Protonix, PRN Pepcid therapy. (17) Asthma: Plan: Patient reports no recent acute exacerbations, has not had to use her albuterol inhaler at home. No respiratory concerns at this time, no recent SOB. Currently 95% O2 on RA. -Will continue with AIRCRAFT COMMUNICATOR PRN albuterol inhaler while hospitalized, she denies taking any other medications for her asthma at home. (18) History of DVT (deep vein thrombosis): (19) History of pulmonary embolism: (20) On anticoagulant therapy: Plan: -Will continue AIRCRAFT COMMUNICATOR Eliquis while hospitalized. (21) Chronic pain: Plan: -Will continue AIRCRAFT COMMUNICATOR chronic opioid therapy, which is managed in the outpatient setting by her PCP. (22) History of migraine headaches: (23) Headache: Plan: Patient does have a history of migraine headaches, takes Ajovy for preventative therapy and Ubrelvy for abortive therapy at home. Also takes topiramate. Follows with [facility]. She is currently complaining of a mild headache on admission. -Ordered her some Toradol, Compazine and Benadryl to be given in the ED to prevent any further progression to a migraine. -Could consider having patient bring in her Ubrelvy prescription from home to take while hospitalized, as this is a non-formulary medication. -Continue to monitor for any progression of headache symptoms. Will continue AIRCRAFT COMMUNICATOR topiramate. DVT Prophylaxis: Eliquis - As per above, pt on this medication AIRCRAFT COMMUNICATOR d/t hx of DVT/PE. Code Status: Full Code PCP: Sarah Saavedra PA-C Dispo: Observation --> Med/Surg Patient seen in collaboration with Dr. Stephens. Please see addendum. I spent a total of 75 minutes coordinating, documenting, and providing care for this patient excluding time spent in the performance of separately billed services. This included personally reviewing all current laboratories and imaging studies, medical reconciliation, outpatient chart review and discussion with specialists. This chart was completed in part utilizing Speech Voice Recognition Software. Grammatical errors, random word insertions, pronoun errors, and incomplete sentences are an occasional consequence of this system due to software limitations, ambient noise, and hardware issues. Any formal questions or concerns about the content, text, or information contained within the body of this dictation should be directly addressed to the provider for clarification. 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 History obtained from patient, and associated ED/PCP/specialist records. Patient seen at bedside, one of her caretakers [currently has 2 rotating caretakers at home] is present in the room with her and provides some additional hx. Patient reports that she has been experiencing suprapubic pain and b/l flank pain/tenderness for the past ~2 weeks. Patient has been seen at [facility] ED four times since 10/29/23, with the most recent visit being yesterday, for the same ongoing symptoms that she is presenting with today. During her ED visit @ [facility] on 11/06/23, she was prescribed oral Augmentin (875-125mg) therapy x 10 days for UTI findings. Urine culture was completed at that time, and grew Enterococcus. Patient states that she took her most recent dose this morning [totaling ~9 doses], and has not noticed any improvement in her symptoms since being on that ABX regimen. She does follow w/ [facility] given hx of neurogenic bladder, chronic suprapubic catheter AIRCRAFT COMMUNICATOR. She had a cystoscopy w/ Botox injections on 10/26 w/ Dr. Olmos. Her suprapubic catheter was also changed at that time. Patient reports a few incidences of malodorous brownish discharge from her suprapubic catheter site, and some bleeding as well a few days ago that has since resolved. She denies any current nausea, but does have a hx of chronically intermittent episodes of nausea [has Zofran and Compazine available at home]. No recent episodes of vomiting. She was given IV Zofran, IV Toradol and PO oxycodone in ED w/ some alleviation of her pain. She currently endorses 6/10 pain. She is reporting a mild headache, but denies any visual changes. She further denies any chest pain, SOB, bowel habit changes or decrease in urinary output. No issues with appetite or diet. Denies any recent fevers, chills, body aches. She is currently on chronic opioid therapy for chronic pain, which is managed in the outpatient setting by her PCP. 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 Labs performed in ED today are rather unremarkable, no evidence of leukocytosis. RBC 4.21, Hgb 12.2, Hct 37.5 --> No acute anemia process at play. Chloride slightly elevated at 110, but no other electrolyte abnormalities present. UA revealed evidence of blood, leukocyte Estrace, WBC and RBC. CT of abdomen/pelvis displayed the following: * Suprapubic catheter in place, bladder wall thickening, NO hydronephrosis or urinary calculi. * Moderate amount of stool within colon. No bowel wall thickening, s/p gastric bypass. Allergies Allergy/AdvReac Type Severity Reaction Status Date / Time aripiprazole [From Abilify] Allergy Severe COULDN'T Verified 11/10/23 12:01 BREATHE aztreonam Allergy Severe SHORTNESS Verified 11/10/23 12:01 OF BREATH Beta-Blockers Allergy Severe COULDN'T Verified 11/10/23 12:01 (Beta-Adrenergic Bloc BREATHE Gadolinium-Containing Allergy Severe Swelling Verified 11/10/23 12:01 Contrast Medi of Lip/Tongue/Throat hydrocodone Allergy Severe Hives Verified 11/10/23 12:01 lithium Allergy Severe UNCONSCIOUS, Verified 11/10/23 12:01 UNRESPONSIVE meperidine Allergy Severe RESPIRATORY Verified 11/10/23 12:01 DISTRESS propranolol Allergy Severe Anaphylaxis Verified 11/10/23 12:01 verapamil Allergy Severe "Cant Verified 11/10/23 12:01 breathe" fexofenadine Allergy Intermediate HIVES Verified 11/10/23 12:01 linezolid Allergy Intermediate SHORTNESS Verified 11/10/23 12:01 OF BREATH propoxyphene Allergy Intermediate Hives Verified 11/10/23 12:01 Sulfa (Sulfonamide Allergy Intermediate SHORTNESS Verified 11/10/23 12:01 Antibiotics) OF BREATH ketorolac Allergy Mild ITCHY Verified 11/10/23 12:01 latex Allergy Mild Itching Verified 11/10/23 12:01 neomycin Allergy Mild ITCHY Verified 11/10/23 12:01 tetracycline Allergy Unknown UNKNOWN Verified 11/10/23 12:01 Home Medications Medication Instructions Recorded Confirmed Type albuterol sulfate 90 mcg/actuation 2 puff inhalation QID PRN 04/13/18 11/10/23 History aerosol inhaler (Ventolin HFA) Shortness Of Breath cetirizine 10 mg tablet (Zyrtec) 10 mg PO QAM 04/13/18 11/10/23 History duloxetine 60 mg capsule,delayed 60 mg PO QAM 04/13/18 11/10/23 History release (Cymbalta) hydroxyzine HCl 50 mg tablet 50 mg PO TID PRN Anxiety 04/13/18 11/10/23 History polyethylene glycol 3350 17 17 g PO BID PRN Constipation 04/13/18 11/10/23 History gram/dose oral powder (Miralax) prochlorperazine maleate 10 mg 10 mg PO Q8H PRN Nausea 04/13/18 11/10/23 History tablet (Compazine) baclofen 20 mg tablet 20 mg PO TID 08/09/19 11/10/23 History cyclobenzaprine 10 mg tablet 10 mg PO BID PRN Muscle Spasm 03/29/20 11/10/23 History onabotulinumtoxinA 100 unit 200 unit IM Q90D 03/29/20 11/10/23 History solution for injection (Botox) ondansetron 4 mg disintegrating 4 mg PO Q6H PRN Nausea And Vomiting 03/29/20 11/10/23 History tablet acetaminophen 500 mg tablet 1,000 mg PO Q6H PRN Pain 09/11/20 11/10/23 History (Tylenol Extra Strength) diazepam 2 mg tablet 2 mg PO TID 09/11/20 11/10/23 History trazodone 100 mg tablet 100 mg PO HS PRN Sleep 08/13/21 11/10/23 History fremanezumab-vfrm 225 mg/1.5 mL 225 mg subcut MONTHLY 02/03/23 11/10/23 History subcutaneous auto-injector (Ajovy) pantoprazole 40 mg granules 40 mg PO BID 02/03/23 11/10/23 History delayed-release for susp in packet (Protonix) ramelteon 8 mg tablet 8 mg PO HS PRN Sleep 02/03/23 11/10/23 History apixaban 5 mg tablet (Eliquis) 5 mg PO BID 04/04/23 11/10/23 History lurasidone 40 mg tablet (Latuda) 40 mg PO PM 04/04/23 11/10/23 History acetaminophen 300 mg-codeine 30 mg 1 tab PO TID PRN Pain 04/21/23 11/10/23 History tablet oxybutynin chloride 5 mg tablet 5 mg PO Q8H PRN bladder spasms #90 09/23/23 11/10/23 Rx tabs clotrimazole 1 % topical cream 1 applic topical UD PRN Rash 09/29/23 11/10/23 History famotidine 20 mg tablet 20 mg PO DAILY PRN Acid Reflux 09/29/23 11/10/23 History topiramate 50 mg tablet 50 mg PO BID 09/29/23 11/10/23 History cholecalciferol (vitamin D3) 25 25 mcg PO QAM 10/14/23 11/10/23 History mcg (1,000 unit) tablet (Vitamin D3) cyanocobalamin (vitamin B-12) 1,000 mcg IM UD 10/14/23 11/10/23 History 1,000 mcg/mL injection solution docusate sodium 100 mg capsule 200 mg PO DAILY PRN Constipation 10/14/23 11/10/23 History (Colace) duloxetine 30 mg capsule,delayed 30 mg PO QAM 10/14/23 11/10/23 History release (Cymbalta) mirabegron 50 mg tablet,extended 50 mg PO QAM 10/14/23 11/10/23 History release 24 hr (Myrbetriq) multivitamin 1 tab PO QAM 10/14/23 11/10/23 History tolterodine 2 mg capsule,extended 2 mg PO QAM 10/14/23 11/10/23 History release 24 hr (Detrol LA) phenazopyridine 200 mg tablet 200 mg PO Q8H PRN pain #10 tabs 10/27/23 11/10/23 Rx (Pyridium) amoxicillin 875 mg-potassium 1 tab PO BID 11/10/23 11/10/23 History clavulanate 125 mg tablet Past Med/Surg History Problem List Headache Hypertension Intertriginous candidiasis Urinary retention Muscle spasm of both lower legs Ambulatory dysfunction Pt uses either wheelchair or walker, states she is able to stand and pivot herself. History of migraine headaches Paralysis of both lower limbs Chronic pain History of pulmonary embolism Around 2019 s/p surgery --> On Eliquis BID. On anticoagulant therapy Eliquis BID therapy in place. History of DVT (deep vein thrombosis) x2 per patient's medical records. Asthma WELL CONTROLLED, inhaler PRN. GERD (gastroesophageal reflux disease) Cerebral palsy Uses primarily wheelchair, sometimes walker, can stand and pivot self. Depression Anxiety disorder Vaginal yeast infection Complicated UTI (urinary tract infection) (Acute) Bladder spasms Chronic suprapubic catheter Neurogenic bladder (Acute) Chronic suprapubic catheter in place. Bipolar depression Medical History Allergy to multiple antibiotics Frequent UTI Radicular low back pain Falls Chronic back pain Abdominal pain Suicidal ideations Insulin resistance History of COVID-19 diagnosed 06/2023--mild symptoms, no symptoms now Morbid obesity with BMI of 40.0-44.9, adult Nausea and vomiting after administration of anesthetic agent NAUSEA ONLY. Degenerative disc disease HARD TIME LYING ON STOMACH FOR EXTENDED PERIODS OF TIME. Surgical History History of hysterectomy H/O gastric bypass History of cystoscopy with exchange of suprapubic cath 04/2023 @ [facility] History of esophagogastroduodenoscopy (EGD) History of foot surgery right--hardware in place History of colonoscopy History of hysterectomy History of laminectomy H/O shoulder surgery S/P surgical manipulation of ankle joint H/O dilation and curettage Hx of eye surgery Hx of spinal fusion Hx of cholecystectomy Family History Father Alive and well Hypertension Mother Alive and well Hypertension Other No family history of adverse response to anesthesia Social History Smoking Status: Never smoker Second Hand Exposure: No; Do You Dip or Chew Tobacco: No; Hx Alcohol Use: No Hx Substance Use: No Preferred Language: [place] Communication Ability: Effective Visual Impairment: No Limitations Technical Sales Representative Required: No Beliefs That Will Affect Care: None marital status: Single Current Living Situation: Alone Current Living Situation Comment: caregivers come in daily--8-8pm Feels Safe at Home: Yes Assistive Devices: Glasses and Wheelchair Review of Systems Review of Systems: At least ten systems reviewed and negative, except as noted in the HPI. Physical Exam Physical Exam: General Appearance: Chronically ill-appearing, conversing easily. Appears slightly anxious, but pleasant. No acute distress. Head: Normocephalic, atraumatic. Eyes: Normal inspection, PERRL, conjunctivae normal, anicteric sclerae. ENT: External ear and nose normal, oropharynx normal. Neck: Normal visual inspection, trachea midline, no thyromegaly. Respiratory: Normal respiratory effort, lungs clear to auscultation, no wheeze, rales, rhonchi. No accessory muscle use. Cardiovascular: Regular rate, rhythm, no murmur, normal peripheral pulses, no BLE edema. Vessels: No JVD. Chest: Normal inspection of chest. Abdomen/GI: Normal bowel sounds, tender to palpation in suprapubic region. Extremities/Musculoskeletal: No cyanosis or clubbing, nontender. Neurologic: PERRL, EOMI, accommodation nl, no face palsy, no dysarthria. Psychiatric: A+Ox3, euthymic affect. Skin: No rashes, normal color, warm/dry. Suprapubic catheter site w/out surrounding erythema or discharge, no bleeding present. Results & Data Results & Data Vital Signs (Past 12 Hours) Vital Signs Temp Pulse Pulse Resp BP BP Pulse Ox 11/10/23 14:15 77 16 148/77 H 94 11/10/23 09:25 36.7 C 102 H 18 155/106 H 97 O2 Del Method 11/10/23 14:15 Room Air 11/10/23 09:25 Room Air Laboratory Results Short CBC 11/10/23 Range/Units 10:12 WBC 5.39 (4.8-10.8) K/ul Hgb 12.2 (12.0-16.0) g/dl Hct 37.5 (37.0-47.0) % Plt Count 274 (130-400) K/uL BMP 11/10/23 10:12 Sodium 140 Potassium 3.8 Chloride 110 H Carbon Dioxide 22 BUN 11 Creatinine 0.57 L Glucose 127 H Calcium 8.7 Urine 11/10/23 Range/Units 11:04 Urine Color Yellow Urine Appearance Cloudy A (Clear) Urine pH 7.0 (4.5-7.5) Ur Specific [place] 1.013 (1.000-1.030) Urine Protein Trace H (Negative) Urine Glucose (UA) Negative (Negative) Diagnostic Findings Abdomen/Pelvis CT 11/10/23 10:04 CT OF THE ABDOMEN AND PELVIS WITH CONTRAST CLINICAL HISTORY: suprapubic pain/spasm, recent bladder injection COMPARISON STUDY: CT of the abdomen and pelvis March 15, 2023. TECHNIQUE: Following IV administration of 94 mL of Optiray, axial images of the abdomen and pelvis were obtained from the lung bases to the proximal femurs. Images were reviewed in the axial, sagittal, and coronal planes. IV contrast was administered without complication. Automated exposure control was utilized for the study. A dose lowering technique was utilized adhering to the principles of ALARA. CT DOSE: 1485.78 mGy.cm FINDINGS: Lung bases are unremarkable. No pneumatosis, free air or portal venous gas is present. There is no biliary ductal dilatation status post cholecystectomy. There are no hepatic lesions. Spleen, adrenal glands, kidneys and pancreas are unremarkable. Fat-containing 9 mm left renal lesion represents an angiomyolipoma. This is benign. There is no hydronephrosis. There is no biliary ductal dilatation status post cholecystectomy. No abdominal or pelvic lymphadenopathy is identified. There is no evidence for a bowel obstruction status post gastric bypass. Suprapubic catheter is in place. No hydronephrosis. There are no urinary calculi. There is a moderate amount of stool within the colon. No acute fractures within the visualized skeletal structures are present. No areas of bony erosion are identified. Stable postoperative findings within the spine. Bladder wall thickening is noted. IMPRESSION: 1. Suprapubic catheter in place. Bladder wall thickening which could be correlated with urinalysis. No hydronephrosis. No urinary calculi. 2. Moderate amount of stool within colon. No bowel thickening. No bowel wall thickening. Status post gastric bypass. ACT 112: Negative or not required by law. Electronically signed by: Aaron Hernandez M.D. 11/10/2023 1:47 PM Medications Administered Discontinued Medications Diphenhydramine HCl (Diphenhydramine 50 Mg/Ml Vial) 25 mg IV NOW STA Stop: 11/10/23 10:42 Last Admin: 11/10/23 10:45 Dose: 25 mg Documented By: BRITT Diphenhydramine HCl (Diphenhydramine 50 Mg/Ml Vial) 25 mg IV NOW STA Stop: 11/10/23 17:09 Last Admin: 11/10/23 17:43 Dose: 25 mg Documented By: LEONORA Acetaminophen (Ofirmev) 1,000 mg in 100 mls @ 400 mls/hr IV NOW STA Stop: 11/10/23 10:19 Last Admin: 11/10/23 10:41 Dose: Not Given Documented By: BRITT Piperacillin Sod/Tazobactam Sod (Zosyn) 4.5 gm in 100 mls @ 200 mls/hr IV NOW ONE Stop: 11/10/23 15:33 Last Infusion: 11/10/23 15:55 Dose: Infused Documented By: Admin: 11/10/23 15:18 Dose: 200 mls/hr Documented By: ANGELINA Ioversol (Optiray 320 100ml) 94 ml IV ONCE ONE Stop: 11/10/23 13:26 Last Admin: 11/10/23 13:25 Dose: 94 ml Documented By: DORIE Ketorolac Tromethamine (Ketorolac Tromethamine 15 Mg/Ml Vial) 15 mg IV NOW ONE Stop: 11/10/23 10:42 Last Admin: 11/10/23 10:46 Dose: 15 mg Documented By: BRITT Ketorolac Tromethamine (Ketorolac Tromethamine 15 Mg/Ml Vial) 15 mg IV NOW ONE Stop: 11/10/23 17:16 Last Admin: 11/10/23 17:41 Dose: 15 mg Documented By: LEONORA Methylprednisolone (Methylprednisolone 125 Mg/2 Ml Vial) 125 mg IV NOW STA Stop: 11/10/23 12:46 Last Admin: 11/10/23 13:03 Dose: 125 mg Documented By: BRITT Ondansetron HCl (Ondansetron Inj 2 Mg/Ml 2 Ml Vial) 4 mg IV NOW STA Stop: 11/10/23 10:06 Last Admin: 11/10/23 10:45 Dose: 4 mg Documented By: BRITT Oxycodone HCl (Oxycodone Hcl Ir 5 Mg Tab (Immediate Release)) 5 mg PO NOW STA Stop: 11/10/23 15:06 Last Admin: 11/10/23 15:19 Dose: 5 mg Documented By: ANGELINA ECG Additional Comments: No EKG performed in the ED today. Last EKG was done on 10/27/23 and revealed the following [interpreted by Dr Luiz Huang]: NSR w/ HR 68bpm, P-R Int 126ms, QT/QTc Int 404/429ms and QRS Dur 90ms. Code Status & VTE Plan Code Status FULL CODE VTE Prophylaxis Plan VTE Prophylaxis will be ordered: Yes Supervising Physician Co-Signing Physician Notes I have seen and discussed the case with the collaborating advanced practitioner. I agree with the above H&P. I have reviewed and confirmed the patients medical history, the findings on physical examination, and the patients diagnosis and treatment plan with JAY and agree with the information documented. In short, Ms. Mancini is a 38 year old woman with complex medical history admitted for evalaution of persistent suprapubic pain prompting multiple ED visits without resolution. Patient recently diagnoses with enterococcus UTI at [facility] and treated with Augmentin; however, no resolution of symptoms. Patient states she recent received botox to bladder with some improvement, however, the symptoms of "stabbing" and "spasms" returned after her UTI like symptoms started over a week ago. Patient has completed 6 days of medication. Denies fevers, chills. Labs unrevealing. Patient resting in bed. AOx3. RRR. Rhythmic facial movements. No focal deficits noted. Pedraza site with small gauze under cath with slight drainage noted, as well as slight surrounding erythema #Suprapubic pain #Recent Enterococcal complicated cystitis, catheter associated POA Start Dapto/Zosyn (dapto for habitus and reports of "really bad red man", no VRE on cultures previously noted) Urology consult Continue patient's home pain regimen Declined Pyridium trial Bowel regimen given moderate stool retention may be contributing follow UA Rest of plan as above I spent a total of 35 minutes coordinating, documenting, and providing care for this patient excluding time spent in the performance of separately billed serv ices. All of the aforementioned completed outside of collaborating with the assigned advanced practitioner for a full treatment plan. I have reviewed the advanced practitioner's documentation, and I agree with, and take responsibility for the plan of care (6) Cerebral palsy Cerebral palsy type: unspecified type Qualified Code(s): G80.9 - Cerebral palsy, unspecified (13) Depression Depression Type: unspecified Qualified Code(s): F32.A - Depression, unspecified (14) Anxiety disorder Anxiety disorder type: unspecified anxiety disorder Qualified Code(s): F41.9 - Anxiety disorder, unspecified (15) Hypertension Hypertension type: unspecified Qualified Code(s): I10 - Essential (primary) hypertension (16) GERD (gastroesophageal reflux disease) Esophagitis presence: without esophagitis Qualified Code(s): K21.9 - Gastro- esophageal reflux disease without esophagitis (17) Asthma Asthma complication type: uncomplicated Asthma persistence: unspecified Asthma severity: unspecified severity Qualified Code(s): J45.909 - Unspecified asthma, uncomplicated (21) Chronic pain Chronic pain type: other chronic pain Qualified Code(s): G89.29 - Other chronic pain (23) Headache Headache chronicity pattern: acute headache Headache type: unspecified Intractability: not intractable Qualified Code(s): R51.9 - Headache, unspecified
[2023-11-10] MEDS ORDERED: VANCOMYCIN HCL 2,250 MG in SODIUM CHLORIDE 0.9% 500 ML IV STA (17:31)
[2023-11-10] MEDS: PROCHLORPERAZINE 5 MG in SYRINGE 4 ML IV ONE (18:42)
[2023-11-10] MEDS ORDERED: ALUMINUM/MAGNESIUM SUSP 30 ML UDC PO PRN (19:56)
[2023-11-10] MEDS ORDERED: CLOTRIMAZOLE 1% CR 15 GM TUBE TOP PRN (19:56)
[2023-11-10] MEDS ORDERED: FAMOTIDINE 20 MG TAB PO PRN (19:56)
[2023-11-10] MEDS ORDERED: ALBUTEROL HFA 8 GM INHALER INH PRN (19:56)
[2023-11-10] MEDS: CYCLOBENZAPRINE HCL 10 MG TAB PO PRN (20:36)
[2023-11-10] MEDS: hydrOXYzine HCl 25 MG TAB PO PRN (20:36)
[2023-11-10] MEDS: diazePAM 2 MG TABLET PO SCH (20:36)
[2023-11-10] MEDS: ACETAMINOPHEN W/CODEINE #3 1 TAB PO PRN (20:37)
[2023-11-10] MEDS: DAPTOmycin 300 MG in SYRINGE 0 ML IV SCH (21:30)
[2023-11-10] MEDS: FLUCONAZOLE 50 MG TAB PO ONE (21:31)
[2023-11-10] MEDS: LURASIDONE HCL 20 MG TAB PO SCH (21:31)
[2023-11-10] MEDS: TOPIRAMATE 50 MG TAB PO SCH (21:32)
[2023-11-10] MEDS: APIXABAN 5 MG TABLET PO SCH (21:32)
[2023-11-10] MEDS: PANTOprazole 40 MG TAB PO SCH (21:32)
[2023-11-10] MEDS: BACLOFEN 20 MG TAB PO SCH (21:32)
[2023-11-10] MEDS ORDERED: MoRPHine SULFATE 4 MG/ML 1 ML CARP\\VIAL IV PRN (23:53)
[2023-11-11] MEDS: oxyCODONE HCL IR 5 MG TAB (IMMEDIATE RELEASE) PO PRN (00:14)
[2023-11-11] MEDS: diphenhydrAMINE Capsule 25 MG CAP PO PRN (01:50)
[2023-11-11] MEDS: LORATADINE 10 MG TAB PO ONE (01:53)
[2023-11-11] MEDS: KETOROLAC TROMETHAMINE 15 MG/ML VIAL IV ONE (04:24)
[2023-11-11] MEDS: ACETAMINOPHEN 325 MG TAB PO PRN (05:37)
[2023-11-11] MEDS: ONDANSETRON INJ 2 MG/ML 2 ML VIAL IV PRN (05:37)
[2023-11-11 06:33] LABS: Hematocrit (blood only) 37.1 % (37.0-47.0); Hemoglobin 12.2 g/dl (12.0-16.0); Mean Corpuscular Hemoglobin 28.8 pg (25.0-34.0); Mean Corpuscular Hgb Conc 32.9 g/dL (32.0-36.0); Mean Corpuscular Volume 87.5 fL (80.0-100.0); Mean Platelet Volume 9.5 fL (9.4-12.4); Platelet Count 261 K/uL (130-400); RDW Coefficient of Variation 13.6 % (11.5-14.5); RDW Standard Deviation 43.4 fL (36.4-46.3); Red Blood Count 4.24 M/uL (4.20-5.40); White Blood Count 7.05 K/ul (4.8-10.8)
[2023-11-11 06:49] LABS: BUN Creatinine Ratio 15.5 (10-20); Creatinine Clr Calc Pharmacy 139.5 ml/min; Est GFR (African American) 136.5 ml/min; Est GFR (Non-African American) 117.8 ml/min; Potassium 3.8 mmol/L (3.5-5.1)
--- OUTSIDE RECORDS SUMMARY | 2023-11-11 06:49 | External Medical Summary | Summary of Care ---
Author Name Unknown Organization [facility] Address [address] [place] [address] Phone [phone] Care Team Providers Care Calender Let Off Operator Name Role Phone Sarah Saavedra PA-C Primary Care Provider [phone] Encounter Details Date Type Department Care Team (Late st Contact Info) Description 11/10/2023 Population Health External Data Unspecified Department Allergies Active Allergy Reactions Criticality Noted Date Comments Aripiprazole Hives,Wheezing High 10/07/2014 Adhesive Tape 03/29/2018 Atenolol Other (Please comment) 09/08/2015 Difficulty breathing Aztreonam Other (Please comment) 03/13/2007 IV Chlorhexidine Gluconate Itching 03/02/2023 Chlorhexidine gluconate cloth 2% Dantrolene Liver complications (Please comment) 03/21/2016 Elevated LFTs Doxycycline Hyclate 08/23/2005 Severe nausea Fexofenadine Hydrochloride 11/24/2001 (annita) breathing difficulies Ziprasidone Hcl Other (Please comment) 10/12/2014 Hydrocodone 08/10/2016 nausea Iodinated Contrast Media Edema face/lips/tongue High 11/05/2022 Ketorolac Itching Medium 04/10/2017 Pt reports that she gets really itchy when this medication is administered. Pt reports that she also requires IV benadryl for said itching Latex Itching 09/26/2013 Linezolid 10/23/2014 El Veintiseis Other (Please comment) High 12/29/2014 Became unresponsive Meperidine Other (Please comment) 02/22/2016 Unable to talk or move Metronidazole Nausea/vomiting 10/23/2014 Neomycin 03/20/2002 cortisporin Propoxyphene Hives Medium 10/21/2006 Propranolol Anaphylaxis High 01/10/2017 Quinolones 04/19/2005 rapid heart rate and "chest hurt" Carisoprodol Other (Please comment) 05/03/2016 I couldn't breath Sulfa Antibiotics 02/21/2004 hives Sulfasalazine Itching 12/20/2012 Sympathomimetics 03/11/2009 Verapamil Itching 03/11/2009 documented as of this encounter (statuses as of 11/10/2023) Medications Medication Sig Dispensed Refills Start Date End Date Status docusate sodium (COLACE) 100 MG Capsule Take 1 Cap by mouth 2 times a day. 68 Cap 11/29/2017 Active Cymbalta 60 MG Oral Capsule Delayed Release Particles Take 1 Capsule by mouth in the morning. Active calcium CARBonate (TUMS E-X) 750 MG chewable tablet Take 1 Tab by mouth 2 times a day as needed for Heartburn. 90 Tab 12/09/2019 Active Polyethylene Glycol 3350 17 GM/SCOOP Oral Powder (MiraLax)Indicatio ns:Other constipation Take 17 g by mouth in the morning. Dissolve one heaping tablespoon in 8 ounces of water or juice.. 225 g 3 06/21/2022 Active Acetaminophen 500 MG Oral Tablet Take 2 Tablets by mouth every 6 hours. Active Oxybutynin Chloride 5 MG Oral Tablet (Ditropan) TAKE 1 TABLET BY MOUTH EVERY 8 HOURS NEEDED FOR BLADDER SPASMS 90 Tablet 6 09/01/2022 Active Tolterodine Tartrate ER 2 MG Oral Capsule Extended Release 24 Hour (Detrol LA) TAKE ONE CAPSULE BY MOUTH ONCE DAILY IN THE MORNING 30 Capsule 6 01/11/2023 Active Ramelteon 8 MG Oral Tablet Take 1 Tablet by mouth at bedtime. 01/27/2023 Active Lurasidone HCl 40 MG Oral Tablet (Latuda) Take 1 Tablet by mouth every evening. With a meal 03/04/2023 Active Topiramate 50 MG Oral Tablet (topAMAX) Take 1 Tablet by mouth in the morning and 1 Tablet before bedtime. Active Cetirizine HCl 10 MG Oral Tablet (ZyrTEC)Indication s:Seasonal allergies Take 1 Tablet by mouth in the morning. 90 Tablet 3 03/11/2023 Active Promethazine HCl 25 MG Oral Tablet (Phenergan)Indicat ions:Nausea Take 1 Tablet by mouth every 6 hours as needed for Nausea. 30 Tablet 1 04/04/2023 Active ZOLMitriptan 5 MG Oral Tablet (Zomig) One at onset migraine may repeat in 2 hours maximum 2 doses in 24 hours 10 Tablet 5 05/18/2023 Active Additional Information Patient not taking.Reported on 10/31/2023 Albuterol Sulfate HFA 108 (90 Base) MCG/ACT Inhalation Aerosol SolutionIndication s:Wheezing INHALE 2 puffs BY MOUTH EVERY 4 HOURS NEEDED FOR wheezing 8.5 g 1 06/21/2023 Active Additional Information Patient not taking.Reported on 10/31/2023 Baclofen 20 MG Oral Tablet TAKE 1 TABLET BY MOUTH IN THE MORNING, NOON, EVENING AND BEDTIME 360 Tablet 06/30/2023 Active Botox 100 UNIT Injection Solution Reconstituted (botulinum toxin type a) Inject 300 units intramuscularly into dytonic areas as well as head and neck for migraines every 3 months 3 Each 3 07/04/2023 Active Apixaban 5 MG Oral Tablet (Eliquis) Take 1 Tablet by mouth in the morning and 1 Tablet before bedtime. 180 Tablet 2 07/22/2023 Active Diclofenac Sodium 1 % External Gel (Voltaren)Indicati ons:Chronic pain of left knee Apply 4 g topically to affected area 4 times a day as needed for Pain. 100 g 07/22/2023 Active Naloxone HCl 4 MG/0.1ML Nasal Liquid (Narcan Nasal) Administer 1 spray into 1 nostril for suspected opioid overdose. Seek immediate medical attention. https://www.[email or web address] com/watch?v=[email or web address] AcI 1 Each 3 07/28/2023 Active Additional Information Patient not taking.Reported on 10/06/2023 Cyclobenzaprine HCl 10 MG Oral Tablet (Flexeril) Take 1 Tablet by mouth in the morning and 1 Tablet at noon and 1 Tablet before bedtime. 06/30/2023 Active hydrOXYzine HCl 50 MG Oral Tablet Take 1 Tablet by mouth 3 times a day as needed. 07/29/2023 Active diphenhydrAMINE-Zi nc Acetate 2-0.1 % External Cream (Benadryl Extra Strength) Apply topically to affected area 4 times a day as needed for Itching. 30 g 1 08/09/2023 Active Additional Information Patient not taking.Reported on 10/31/2023 Ipratropium-Albute rol 0.5-2.5 (3) MG/3ML Inhalation Solution (Duoneb)Indication s:Asthma in remission,COVID-19 virus infection Inhale 3 mL via nebulizer every 6 hours as needed for Shortness of Breath or Wheezing. 360 mL 1 08/10/2023 Active Additional Information Patient not taking.Reported on 10/31/2023 Pantoprazole Sodium 40 MG Oral Tablet Delayed Release (Protonix)Indicati ons:Abdominal pain, generalized TAKE 1 TABLET BY MOUTH IN THE MORNING & TAKE 1 TABLET IN THE EVENING 180 Tablet 1 08/30/2023 Active traZODone HCl 100 MG Oral Tablet (Desyrel) TAKE ONE TABLET BY MOUTH AT BEDTIME DIRECTED 08/29/2023 Active Clotrimazole 1 % External Cream (Lotrimin) Apply topically to affected area 2 times a day. Apply to abdominal crease, apply ONE Time per day x 14 days then stop 15 g 1 09/13/2023 Active Additional Information Patient not taking.Reported on 10/31/2023 Famotidine 20 MG Oral Tablet (Pepcid)Indication s:Gastroesophageal reflux disease without esophagitis Take 1 Tablet by mouth daily as needed for Heartburn. 90 Tablet 1 09/19/2023 Active Prochlorperazine Maleate 10 MG Oral Tablet (Compazine)Indicat ions:Nausea Take 1 Tablet by mouth every 6 hours as needed for Nausea. 30 Tablet 2 09/19/2023 Active Ajovy 225 MG/1.5ML Subcutaneous Solution Prefilled Syringe (Fremanezumab-vfrm ) Inject 1.5 mL under the skin every month. 1.5 mL 3 09/27/2023 Active DULoxetine HCl 30 MG Oral Capsule Delayed Release Particles (Cymbalta) Take 1 Capsule by mouth in the morning. Active Ubrelvy 50 MG Oral Tablet (Ubrogepant) Take 1 tablet at onset of migraine and may repeat in 2 hours if needed. Do not exceed 2 tablets in 24 hours. 10 Tablet 5 10/05/2023 Active Additional Information Patient not taking.Reported on 10/31/2023 diazePAM 2 MG Oral Tablet (Valium)Indication s:Spastic diplegic cerebral palsy (HCC) 1 Three times a day, may cause sedation 90 Tablet 1 10/13/2023 Active Fluconazole 150 MG Oral Tablet (Diflucan)Indicati ons:Yeast vaginitis Take 1 Tablet by mouth every 3 days. 3 Tablet 10/28/2023 Active Linzess 145 MCG Oral Capsule (linaCLOtide)Indic ations:Constipatio n, unspecified constipation type Take 1 Capsule by mouth daily before breakfast. 30 Capsule 11 10/28/2023 Active Phenazopyridine HCl 200 MG Oral Tablet (Pyridium) Take 1 Tablet by mouth every 8 hours as needed. For pain. 10/27/2023 Active Ondansetron HCl 4 MG Oral TabletIndications: Nausea Take 1 Tablet by mouth every 8 hours as needed for Nausea or Vomiting. 30 Tablet 1 10/31/2023 Active Sucralfate 1 GM Oral Tablet (Carafate)Indicati ons:Epigastric pain Take 1 Tablet by mouth 4 times a day before meals and at bedtime. half an hour before meals and at bedtime 120 Tablet 10/31/2023 Active Acetaminophen-Code ine 300-30 MG Oral TabletIndications: Cervicalgia,Lumbar radicular pain Take 1 Tablet by mouth 3 times a day as needed for Pain, Severe. On Physical Therapy days may take one extra tablet as needed for severe pain. Do not start before November 08, 2023. 23 Tablet 11/08/2023 Active Amoxicillin-Pot Clavulanate 875-125 MG Oral Tablet (Augmentin) Take 1 Tablet by mouth in the morning and 1 Tablet before bedtime. 20 Tablet 11/06/2023 Active OneTouch Verio w/Device KitIndications:Pre diabetes,Hypoglyce jose r Use up to 3 times per day E16.2 1 Kit 11/08/2023 Active Glucose Blood In Vitro Strip (OneTouch Ultra Blue)Indications:P rediabetes,Hypogly cemia E16.2 100 Strip 2 11/08/2023 Active oxyCODONE-Acetamin ophen 5-325 MG Oral Tablet (Percocet)Indicati ons:Bladder spasm Take 1 Tablet by mouth every 6 hours as needed for Pain, Severe. Skip two Tylenol# 3 tablet if taking Oxycodone. 2 Tablet 11/08/2023 Active OneTouch Delica Lancets 33G Use up to 3 times daily E16.2 11/08/2023 Active OneTouch Verio In Vitro Strip (Glucose Blood)Indications: Hypoglycemia Use up to 3 times daily E16.2 100 Strip 11 11/08/2023 Active Hospital, Clinic, or Other Facility Administered Medication Ordered Dose Route Frequency Start Date End Date Status vitamin b-12 (Cyanocobalamin) inj 1,000 mcgIndications:S/P gastric bypass 1000 mcg IM [id number] 08/30/2023 06/03/2026 Active documented as of this encounter (statuses as of 11/10/2023) Active Problems Problem Noted Date Diagnosed Date Postsurgical malabsorption, 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 07/12/2023 Chronic migraine without aur a, not intractable, without status migrainosus 06/26/2023 Morbid obesity with body mass index of 40.0-44.9 in adult 05/24/2023 Migraine 05/24/2023 Asthma in remission 03/21/2023 Vaginal candidiasis 03/02/2023 VRE (vancomycin resistant enterococcus) culture positive 02/27/2023 Localized osteoporosis witho ut current pathological fracture 11/16/2022 Intestinal postoperative nonabsorption 3 Dehydration 05/11/2022 Overview: historical S/P gastric bypass 05/07/2022 Bipolar disorder, curr episo de depressed, severe, w/psychotic features 05/03/2022 supervisor intermediates current use of anticoagulant therapy 0 08/28/2021 Recurrent chest pain 07/31/2021 Last Assessment & Plan: Referred to cardiology for workup--seen in Jul. [place] atypical for ACS. ED workup neg for ischemia. L chest tender to palpation. Advised to use tylenol for pain. Suspected pain MSK in nature. Had echo done 08/11/21 with EF 58% and mild diastolic dysfunction Osteoarthritis of left hip 07/18/2021 History of pulmonary embolism 03/09/2021 Last Assessment & Plan: On eliquis History of DVT (deep vein thrombosis) 03/09/2021 Last Assessment & Plan: On eliquis Chronic complete spastic paraplegia 09/26/2020 Herniation of lumbar intervertebral disc with ra diculopathy 11/07/2019 Impaired mobility and ADLs 09/06/2019 Chronic pain syndrome 09/06/2019 Degenerative lumbar spinal stenosis 06/18/2019 Spina bifida 10/23/2018 Last Assessment & Plan: Needs assist with adls--has caregivers in the home. PTSD (post-traumatic stress disorder) 12/31/2016 Adhesive arachnoiditis 08/03/2016 Factitious disorder 03/28/2016 Spasticity 03/21/2016 Overview: Bilateral lower extremities with some involvement of upper extremities. Suspected genetic disorder due to positive family history and EMG testing Hyperreflexia 03/21/2016 Congenital hypoplasia of left femur 10/30/2015 Cerebral palsy 08/21/2015 Last Assessment & Plan: Has caregivers in the home for adl and iadl assistance. Generalized anxiety disorder 12/30/2014 Spinal stenosis 06/10/2014 Overview: Last Assessment & Plan: Primary reason for transfer from [facility] C/o LE weakness and acute/chronic low back pain. Lumbar spine MRI reportedly performed @ [facility], not available for review Pt denies receiving steroid injections D/C IV dilaudid. Resume PO hydromorphone 4mg in setting of subjected acute on chronic low back pain, foot pain and now chest pain Encourage use of tylenol 1000mg or ibuprofen 600mg PRN Chronic suprapubic catheter 05/31/2014 Overview: Placed 05/[address] [facility] by interventional radiology for urinary retention and rayo intolerance; change every 3 months Vitamin D deficiency 04/05/2012 Premature menopause 10/23/2011 Overview: 2011 surgical [facility] BSO for benign reasons (menorrhagia) Hyperinsulinemia 09/27/2008 Overview: 09/20 held metformin due to anion Gap acidosis inpatient (multifactorial:cdiff, metfromin, vomitting) Irritable bowel syndrome wit h both constipation and diarrhea 08/29/2006 Overview: Dicyclomin qid started by [facility] Displacement of lumbar inter vertebral disc without myelopathy 03/03/2006 Overview: Rigth L5-S1. [place] injections. Did not help. For discectomy at [facility] 08/31/06. Had subsequent MRSA graft Remove rods 2007 MRI 07/22 post surgical changesno disc disease. Possilbe right foraminal narrowing L5S1 MRI 06/22 L4L5 sign enhancement rigth NF ?due to priro foraminotomy. Mod narrowing proximal left NF, increased 08/20 Pain clinic: start neruontin 100mg hs, increase to 100 mg bid , with goal 300 mg bid. TENSA, consider Cspine MICHELLE 11/20 MRI mod FN L4/5, L>R 2011 stable mri 01/23: sees Dr. Mock (spine surgeon) @ [facility] 10/24: lumbar spinal surgery by Dr. Bob Heard 09/11/15: bulging disc with moderate narrowing of neural foramen B L4-5 and R L5- S1 Gastroesophageal reflux disease without esophagi tis 08/15/2003 Overview: EGD 12/23: + small hiatal hernia, no gastritis; increase PPI to protonix 40 mg bid Egd 10/16 mild esophagitis and gastritis. Generic Scoliosis documented as of this encounter (statuses as of 11/10/2023) Resolved Problems Problem Noted Date Diagnosed Date Resolved Date Acute gastritis without hemorrhage 07/09/2023 08/06/2023 Uncomplicated asthma 07/04/2023 024 Depression, unspecified 06/26/202307/15 UTI (urinary tract infection ) due to urinary indwelling catheter 02/27/2023 04/04/2023 Spastic hemiplegia 07/31/2022 Uncomplicated asthma 07/31/2022 023 Overview: More specified condition in remission on pl Body mass index (BMI) 45.0-49.9, adult 07/12/2022 06/02/2023 Overview: historical Urinary tract infection asso ciated with indwelling urethral catheter 06/19/2022 07/31/2022 Epigastric pain 06/19/2022 01/04/2023 Post-op pain 04/07/2022 08/05/2022 Bipolar disorder, curr episo de depressed, severe, w/psychotic features 03/25/2022 03/25/2022 Pre-operative examination 03/16/2022 Osteomyelitis 02/25/2022 07/31/2022 Acute pyelonephritis 02/25/2022 023 Bladder spasm 10/12/2021 04/04/2023 Osteoporosis without current pathological fracture 08/28/2021 06/02/2023 Overview: More specified condition on pl Right foot pain 08/20/2021 08/28/2021 Contusion of right hip 08/20/202108/28 Age-related osteoporosis wit hout current pathological fracture 07/31/2021 08/28/2021 Hip pain, right 07/16/2021 08/28/2021 Intermittent asthma with rel iever use up to twice per week without complication 03/09/202107/15 Acute pulmonary embolism 01/30/2021 Cough variant asthma 08/17/2020 021 Encounter for long-term (cur rent) use of other medications 08/13/2020 04/04/2023 Overview: Managed by Maureen Bowie MD To view the Medication Usage Agreement, go to [employer], Patient Files. Agreement is for benzodiazepines to manage pt spasticity Acute low back pain with sciatica 04/30/2020 07/31/2021 Conversion disorder 02/19/2020 04/04/20 Last Assessment & Plan: Followed by psych/[facility] Ambulatory dysfunction 01/31/202001/04 Low back pain with right-sided sciatica 11/21/2019 12/12/2019 Unspecified urinary incontinence 09/20/2019 12/12/2019 Sprain and strain of shoulder and upper arm 09/06/2019 12/12/2019 Paresthesia 09/06/2019 01/04/2023 Panic disorder 08/27/2019 08/06/2022 Bipolar I disorder, most rec ent episode depressed, mild 08/27/2019 07/21/2021 Migraine without aura and wi thout status migrainosus, not intractable 07/12/2019 08/06/2022 Anxiety 06/28/2019 08/28/2021 Overview: Last Assessment & Plan: Cont outpatient meds: requested pharmacist to confirm outpatient meds. Unsure of reliability from patient-provided history. (patient states she takes ativan, and is prescribed regularly, but eventually questioned why no recent outpatient scripts and she admits then it was only as an inpatient @ rehab) Dysuria 05/31/2019 12/12/2019 Bipolar I disorder, current or most recent episode depressed, with psychotic features 02/01/2019 02/11/2020 Ambulatory dysfunction 01/12/201907/21 Left foot pain 01/12/2019 08/28/2021 Bipolar I, most recent episo de depressed, severe 01/04/2019 02/11/2020 COPD, group C, by GOLD 2017 classification 11/20/2018 12/12/2019 Overview: Per COPD GOLD Classification Spastic hemiplegia 10/23/2018 Body mass index (BMI) of 45. 0 to 49.9 in adult 10/23/2018 12/12/2019 Hypoglycemia associated with diabetes 10/23/2018 11/30/2018 Chronic complete spastic paraplegia 10/23/2018 08/17/2020 Quadriplegia 10/23/2018 07/12/2019 Major depressive disorder, r ecurrent episode, in partial remission 10/02/2018 04/18/2019 Polypharmacy 08/22/2018 04/21/2022 Dyspnea 07/28/2018 11/30/2018 Tachycardia 07/28/2018 05/09/2019 Abdominal pain 04/25/2018 07/10/2023 Hypoglycemia 07/26/2017 07/27/2017 Altered mental state 07/26/2017 018 Elevated WBC count 07/26/2017 8 Hypoglycemia 07/26/2017 11/30/2018 Rash 07/26/2017 02/02/2018 Morbid obesity with BMI of 50.0-59.9, adult 07/26/2017 08/05/2022 Overview: Per Obesity protocol #1 Failed spinal cord stimulator 05/02/2017 11/30/2018 Body mass index (BMI) of 40. 0 to 44.9 in adult 04/26/2017 08/03/2017 Overview: Per Obesity protocol #1 - Per Obesity protocol #1 Moderate malnutrition 03/31/20172018 Body mass index (BMI) of 45. 0 to 49.9 in adult 03/14/2017 04/29/2017 Overview: Per Obesity protocol #1 Chronic obstructive pulmonar y disease, unspecified 11/16/2016 11/22/2018 Overview: Per COPD GOLD Classification Other specified metabolic disorders 11/16/2016 04/18/2019 Quadriplegia, unspecified 11/16/2016 Unspecified convulsions 11/16/2016 07/0 06/2019 Opioid dependence, uncomplicated 11/16/2016 07/27/2019 Fall 11/09/2016 11/09/2016 Acute cystitis without hematuria 11/09/2016 09/26/2020 Multiple falls 11/01/2016 02/02/2018 Neurogenic bladder 11/01/2016 7 Acute right-sided low back p ain without sciatica 08/03/2016 03/31/2021 Inability to walk 07/01/2016 08/28/2021 Severe major depression with psychotic features 06/13/2016 06/13/2016 Gait difficulty 05/27/2016 04/04/2023 Hypokalemia 05/18/2016 06/13/2017 Joint pain, knee 05/18/2016 02/15/2019 Recurrent falls 04/15/2016 01/04/2023 Last Assessment & Plan: Continue outpatient PT at [facility] Muscle spasms of both lower extremities 03/22/2016 03/28/2016 Overview: The patient has muscle stiffness no responding to Bacolfen She is hyperreflexic. She has lost pin-prick inside oral oral mucosa and lips. She has urinary incontinence. 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 Acute otitis media with effusion of both ears 10/20/1902/02/2018 Bilateral chronic serous otitis media 10/19/2015 02/02/2018 Drug-seeking behavior 09/10/20152022 Overview: Pain management consult 09/05/15: do not give narcotics, "In addition,patient seems to drug seeking which is a contraindication to starting her on opioids." [facility] discharge 10/04/15: patient exhibiting behavior of narcotic dependency (requesting escalation of IV dilaudid) Weakness of both upper extremities 08/21/2015 12/12/2019 Generalized weakness 03/01/2015 018 Chronic back pain 03/01/2015 03/03/2022 Paraplegia 02/19/2015 03/25/2016 MEDICATION USE AGREEMENT 06/07/2014 Overview: Pain contract established with [facility] ED 05/26 - give valium 5 mg and dilaudid 1 mg IV or IM; repeat x 1 in 3 hours if needed Morbid obesity due to excess calories 01/09/2014 12/15/2021 Overview: Per Obesity protocol #1 Last Assessment & Plan: Followed by wt mgmt, per last notes from clinic yesterday pt wants to pursue surgical options for wt loss. Other abnormal glucose 01/09/201412/07 Urinary retention 05/18/2013 01/04/2023 Overview: Cysto neg 05/21/13. Following with [facility] urology Miri CERVANTES as of 09/26/2013. Resolved s/p laminectomy L4-S1 October [address] @ [facility] [address] Heard. Last Assessment & Plan: Rayo draining--currently being treated for UTI with keflex Hypertension goal BP (blood pressure) < 140/90 12/20/2012 02/02/2018 Bone spur 11/09/2012 02/02/2018 Intractable chronic migraine without aura and without status migrainosus 08/03/2011 08/06/2023 Overview: Topamax; nortriptyline in past. Headache is not her main problem. Main : Neurogenic bladder and spastic paraparesis. Rotator cuff syndrome 12/08/20102019 Overview: 11/21 rigth tendinosis and partial tear MRI shoulder 03/26: New small moderate grade undersurface partial-thickness rotator cuff tears and/or tendinopathy/tendinitis near the distal/humeral attachments of the RIGHT supraspinatus and infraspinatus tendons. Pain in limb 03/19/2010 12/12/2019 Asthma, mild persistent 12/08/200910/11 Overview: Per Asthma Taxonomy, Advair, singulair PFT 04/30/14: normal Acidosis 09/16/2009 02/02/2018 Overview: Admission 08/20 suspect multifactorial (diarrhea, metformin)--resolved 09/20. Hold metformin Internal derangement of knee 02/26/2009 04/18/2019 Overview: Left MRI tear ant horn lat meniscus, partial tear ACL. Dr Burgess Abnormal results of liver function studies 09/27/2008 02/02/2018 Overview: Suspect due to hyperinsulin and meds Ct liver fatty Infiltration. Methicillin resistant Staphy lococcus aureus infection 04/26/2007 03/12/2008 Overview: Iliac crest bone harvest site Major depressive disorder, r ecurrent episode, moderate 01/26/2006 08/06/2023 Overview: Psychiatry.Celexa changed to nortriptylene, sertraline, wellbutrin 01/21 increased wellbutrin, stopped sertraline. Zopidem. 01/23: Chaudrhy; increased prozac, on wellbutrin 03/27: followed by Mauricio THOMPSON @ [facility] [place] ADVANCE DIRECTIVE INFORMATION 11/17/2004 08/06/2022 Overview: No, Advance Directive brochure offered , patient declined. Allergic rhinitis 11/24/2001 11/30/2018 Overview: zyrtec Fatty liver 08/06/2022 Chronic sinusitis 11/30/2018 Overview: frequent documented as of this encounter (statuses as of 11/10/2023) Immunizations Name Administration Dates Next Due COVID-19 mRNA, LNP-s, No Pre serve, 2-Dose Series ([employer]) 06/25/2021,12/13/2020,11/15/2020 COVID-19, MRNA-LNP, 23-24, P F, 30 MCG/0.3 mL, 12 YRS AND ABOVE, IM ([employer]Comirnat) 03/29/2023 Covid-19, Mrna, Lnp-s, Pf, B ivalent, 30 Mcg, IM, 12 yrs and above ([employer]) 06/17/2022 H1N1 2009 Influenza, IM 05/27/2009 Pneumococcal Conjugate Vacci ne, 20-valent ([id number]) 12/15/2021 Pneumococcal Polysaccharide PPV23 (Pneumovax) 05/01/2008 Seasonal Influenza, PF, 6 M & above, IM , (FluLaval or Fluzone) 02/22/2023,03/03/2022,03/25/2021,03/18,02/15/2019,03/29/2018 Seasonal Influenza, Quadriva lent, No Preserve, IM 04/01/2016 Seasonal Influenza, Quadriva lent, No Preserve, Peds 04/27/2017 Seasonal Influenza, Split, I IV3, With Preserve, Inj 02/24/2015,03/05/2014,04/17/2013,04/05,03/26/2009,04/16/2008,04/26/2007 ,03/22/2006 TDAP (age 10 and older)(Boostrix) 04/23/2019 TDAP, Age 7 and older, IM (Adacel) 03/26/2009 documented as of this encounter Social History Tobacco Use Types Packs/Day Years Used Date Smoking Tobacco: Never Passive Smoke Exposure: Past Smokeless Tobacco: Never Comments:denies Alcohol Use Standard Drinks/Week Comments No 0 (1 standard drink = 0.6 oz pur e alcohol) denies PHQ-2 Answer Date Recorded PHQ Adult Total Score 0 05/24/2023 Hunger Vital Sign Answer Date Recorded Within the past 12 months, y ou worried that your food would run out before you got the money to buy more. Never true 09/28/19 Within the past 12 months, t he food you bought just didn't last and you didn't have money to get more. Never true 09/28/2023 Sex and Gender Information Value Date Recorded Sex Assigned at Female 10/23/2018 9:35 AM EDT Gender Identity Female 10/23/2018 9:35 AM EDT Sexual Orientation Straight 10/23/2018 9: 35 AM EDT Job Start Date Occupation Industry Not on file Not on file Not on file documented as of this encounter Functional Status Functional Status Response Date of Assess ment Are you deaf or do you have serious difficulty hearing? No 07/08/2023 Are you blind or do you have serious difficulty seeing, even when wearing glasses? No 07/08/19 Do you have serious difficul ty walking or climbing stairs? (5 years old or older) Yes-wheelchair bound 07/08/2023 Do you have difficulty dress ing or bathing? (5 years old or older) Yes 07/08/2023 Because of a physical, menta l, or emotional condition, do you have difficulty doing errands alone such as visiting a doctor s office or shopping? (15 years old or older) Yes 07/08/19 Cognitive Status Response Date of Assessm ent Because of a physical, menta l, or emotional condition, do you have serious difficulty concentrating, remembering, or making decisions? (5 years old or older) No 07/08/2023 documented as of this encounter Plan of Treatment Upcoming Encounters Date Type Department Care Team (Late st Contact Info) Description 11/11/2023 10:00 AM EDT Telemedicine Family [facility], [place] [address] [place] [phone] Cydney Moe MD 21 [facility] [place] [phone] 11/24/2023 9:00 AM EDT Therapy Psychology, [place] [address] [facility] [phone] Ghazal Best LCSW [address] [phone] 11/30/2023 8:40 AM EDT Nurse Only Ancillary 1st Floor, [place] [address] [place] [phone] Emma, Nurse Fp [address] [place] [place] [address] 12/27/2023 9:00 AM EDT Office Visit Psychiatry, [place] [phone] Cole, [facility] [address] 12/29/2023 10:13 AM EDT Hospital Encounter OR GL, Operating Room, [facility] - 4th Floor [address] [place] [address] Cristiano Alnaiz, DO [address] [place] [address] 12/29/2023 10:13 AM EDT - 12/29/2023 10:56 AM EDT Surgery OR GL, Operating Room, [facility] - 4th Floor [address] [place] [address] Cristiano Alaniz, DO [address] [place] [id number] COLONOSCOPY FLEXIBLE PROXIMAL DIAGNOSTIC 01/16/2024 12:00 PM EDT Office Visit [facility], [place] [address] [facility] [place] [phone] Sarah Saavedra PA-C 21 [facility] [place] [address] 02/02/2024 10:40 AM EDT Office Visit [facility] Angelia Ayala [address] [place] [address] Traci Ricardo MD [address] [facility] [place] [address] 03/01/2024 11:20 AM EDT Office Visit Neurology [facility] 200 [facility] [place] [address] Maureen Bowie MD [address] [place] [address] 03/05/2024 9:30 AM EDT Office Visit [facility] Angelia Ayala [address] [place] [address] Devon Damon PA-C [address] [place] [address] Scheduled Procedures Name Priority Associated Diagnoses Date/Ti me COLONOSCOPY FLEXIBLE PROXIMAL DIAGNOSTIC RLQ abdominal pain Constipation, unspecified constipation type Abnormal CT of the abdomen 12/29/2023 10:13 AM EDT Health Maintenance Due Date Last Done Comments DXA Scan 07/28/2024 07/28/2021 Diabetes Screening 11/08/2026 11/09/2023, 0 11/06/2023, 11/02/2023, Additional history exists DTaP,Tdap,and Td Vaccines (8 - Td or Tdap) 04/23/2029 04/23/2019, 03/26/2009, 03/03/1999, Additional history exists Hepatitis B Completed 04/04/1997, 10/12, 10/02/1996 MENINGOCOCCAL (MENACTRA/MENVEO) Aged Out 03/02/2005 No longer eligible based on patient's age to complete this topic Hepatitis C Screening Completed 09/26/2008 Pneumococcal Vaccine: Pediatrics (0 to 5 Years) and At-Risk Patients (6 to 64 Years) Completed 12/15/2021, 05/01/2008 Influenza Vaccine (FLU shot) Completed 05/2023, 03/03/2022, 03/25/2021, Additional history exists COVID-19 Vaccine Completed 03/29/2023, 10/2022, 06/25/2021, Additional history exists documented as of this encounter Medical Devices Implanted Type Area Primary Care Physician Device Identifier Shelf Expiration Date Model / Serial / Lot Plate Small Mtpj - [id number] Implanted:Qty: 1 on 11/15/2017 by Cristobal Calvillo MD at OR [facility] Left: Foot [id number] / / Screw Locking 2.7x14mm - [id number] Implanted:Qty: 1 on 11/15/2017 by Cristobal Calvillo MD at OR [facility] Left: Foot / / 2.7 X 16mm Locking Screw Implanted:Qty: 2 on 11/15/2017 by Cristobal Calvillo MD at OR [facility] Left: Foot [employer] [id number] / / 2.7 X 20 Locking Screw Implanted:Qty: 1 on 11/15/2017 by Cristobal Calvillo MD at OR [facility] Left: Foot [employer] [id number] / / 2.7 X 18mm Locking Screw Implanted:Qty: 1 on 11/15/2017 by Critsobal Calvillo MD at OR [facility] Left: Foot [employer] [id number] / / Screw Locking 2.7x10mm - [id number] Implanted:Qty: 1 on 11/15/2017 by Cristobal Calvillo MD at OR [facility] Left: Foot [employer] [id number] / / 4.0mm X 44 Mm Compression Screw Implanted:Qty: 1 on 10/09/2018 by Bao Hernández MD at OR [facility] Left: Foot AR-8740-44 H / / Description:Implant from set 2.5x30 Compression Screw Implanted:Qty: 1 on 10/09/2018 by Bao Hernández MD at OR [facility] Left: Foot [employer] AR-8725-30 H / / Screw [employer] 2.1zqm85ym - [id number] Implanted:Qty: 2 on 02/01/2022 by Bao Hernández MD at OR [facility] Right: Toe [employer] [id number] / / Plate Mtpj - [id number] Implanted:Qty: 1 on 02/01/2022 by Bao Hernández MD at OR [facility] Right: Foot [employer] [id number] / / Screw Locking 2.7x10mm - [id number] Implanted:Qty: 2 on 02/01/2022 by Bao Hernández MD at OR [facility] Right: Foot [employer] [id number] / / Screw Locking 2.7x12mm - [id number] Implanted:Qty: 3 on 02/01/2022 by Bao Hernández MD at OR [facility] Right: Foot [employer] 8419-5485 / / Screw Locking 2.7x14mm - [id number] Implanted:Qty: 1 on 02/01/2022 by Bao Hernández MD at OR [facility] Right: Foot [employer] [id number] / / Screw [employer] 2.7aqp97lk - [id number] Implanted:Qty: 1 on 02/01/2022 by Bao Hernández MD at OR [facility] Right: Toe [employer] [id number] / / Port Implant W/8f Poly Cath - [id number] Implanted:Qty: 1 on 06/02/2022 by Lawrence Cat DO at OR [facility] Right: Chest CR BARD : PERIPHERAL VASCULAR [id number] 05/12/2023 [id number] / / [id number] documented as of this encounter Advance Directives Documents on File Type Date Recorded Patient Collection Systems Consultant Expl anation POLST 12/03/2020 POLST PENNSYLVA ROSA ORDERS FOR LIFE-SUSTAINING TREATMENT * Full Code (Latest Code Status on File) Date Activated Date Inactivated Comments 07/08/2023 4:17 AM 07/10/2023 6:15 PM This order r eflects the patients wishes and were consensually agreed upon. Question Answer Comments Discussion of Advance Directives occurred with: Patient * Full Code Date Activated Date Inactivated Comments 02/26/2023 9:26 PM 03/03/2023 3:56 PM This order r eflects the patients wishes and were consensually agreed upon. Question Answer Comments Discussion of Advance Directives occurred with: Patient Does the patient have a Living Will? No Does the patient have Health Care Power of Attor tereso? No * Full Code Date Activated Date Inactivated Comments 11/29/2022 9:01 AM 11/29/2022 4:19 PM This order r eflects the patients wishes and were consensually agreed upon. Question Answer Comments Discussion of Advance Directives occurred with: Patient * Full Code Date Activated Date Inactivated Comments 09/23/2022 3:51 PM 09/23/2022 8:52 PM This order r eflects the patients wishes and were consensually agreed upon. Question Answer Comments Discussion of Advance Direct mikal occurred with: Not Discussed due to patient's condition * Full Code Date Activated Date Inactivated Comments 09/23/2022 3:50 PM 09/23/2022 3:51 PM This order r eflects the patients wishes and were consensually agreed upon. Question Answer Comments Discussion of Advance Direct mikal occurred with: Not Discussed due to patient's condition Healthcare Agents on File Name Relationship Healthcare Agent Relationship Communication Ni Drabilioemiller Grandparent [facility] Andria Addison Mother Emergency Contact Care Teams Calender Let Off Operator Relationship Specialty Start Date End Date Sarah Saavedra PA-C [address] [phone] PCP - General Physician Public Relations Director 09/06/23 documented as of this encounter
--- OUTSIDE RECORDS SUMMARY | 2023-11-11 06:49 | External Medical Summary | Summary of Care ---
Author Name Unknown Organization [facility] Address [address] [place] [address] Phone [phone] Care Team Providers Care Concrete Saw Operator Name Role Phone Sarah Saavedra PA-C Primary Care Provider [phone] Reason for Visit * Reason Comments Flank Pain * Auth/Cert Specialty Diagnoses / Procedures Referred By Lauro rinaldi Referred To Contact [facility] [address] [place] [address] Phone: [phone] Emergency Medicine [facility] [address] [place] [address] Referral ID Status Reason Start Date Expiration Date Visits Re quested Visits Authorized [id number] Encounter Details Date Type Department Care Team (Late st Contact Info) Description 11/09/2023 7:25 AM EDT - 11/09/2023 10:58 AM EDT Emergency [facility] Emergency Department ([facility]) [address] [place], [place] [phone] Manolo Adkins MD [address] [place] [address] Abdominal discomfort (Primary Dx) Discharge Disposition: Home - Self Care Allergies Active Allergy Reactions Criticality Noted Date [...] said itching Latex Itching 09/26/2013 Linezolid 10/23/2014 [place] Other (Please comment) High 12/29/2014 Became unresponsive [...] as of this encounter (statuses as of 11/09/2023) Medications Medication Sig Dispensed Refills Start Date [...] suspected opioid overdose. Seek immediate medical attention. [email or web address] 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 07/12/2023 Chronic migraine without aur a, not intractable, without status migrainosus 06/26/2023 Morbid obesity with body mass index of 40.0-44.9 in adult 05/24/2023 Migraine 05/24/2023 Asthma in remission 03/21/2023 Vaginal candidiasis 03/02/2023 VRE (vancomycin resistant enterococcus) culture positive 02/27/2023 Localized osteoporosis witho ut current pathological fracture 11/16/2022 Intestinal postoperative nonabsorption Dehydration 05/11/2022 Overview: historical S/P gastric bypass 05/07/2022 Bipolar disorder, curr episo de depressed, severe, w/psychotic features 05/03/2022 care home current use of anticoagulant therapy 0 08/28/2021 Recurrent chest pain 07/31/2021 Last Assessment & Plan: Referred to cardiology for workup--seen in Jul. [place] atypical for ACS. ED workup neg for [...] & Plan: Primary reason for transfer from [facility] C/o LE weakness and acute/chronic low back pain. Lumbar spine MRI reportedly performed @ [facility], not available for review Pt denies receiving steroid injections D/C IV dilaudid. Resume PO hydromorphone 4mg in setting of subjected acute on chronic low back pain, foot pain and now chest pain Encourage use of tylenol 1000mg or ibuprofen 600mg PRN Chronic suprapubic catheter 05/31/2014 Overview: Placed 05/26 @ [facility] by interventional radiology for urinary retention and rayo intolerance; change every 3 months Vitamin D deficiency 04/05/2012 Premature menopause 10/23/2011 Overview: 2012 surgical ADILSON BSO for benign reasons (menorrhagia) Hyperinsulinemia 09/27/2008 Overview: 09/20 held metformin due to anion Gap acidosis inpatient (multifactorial:cdiff, metfromin, vomitting) Irritable bowel syndrome wit h both constipation and diarrhea 08/29/2006 Overview: Dicyclomin qid started by [facility] Displacement of lumbar inter vertebral disc without myelopathy 03/03/2006 Overview: Rigth L5-S1. [place] injections. Did not help. For discectomy at [facility] 08/31/06. Had subsequent MRSA graft Remove rods [...] 01/23: sees Dr. Mock (spine surgeon) @ [facility] 10/24: lumbar spinal surgery by Dr. Bob Heard 09/11/15: bulging disc with moderate narrowing of neural foramen B L4-5 and R L5- S1 Gastroesophageal reflux disease without esophagi tis 08/15/2003 Overview: EGD 12/23: + small hiatal hernia, no gastritis; increase PPI to protonix 40 mg bid Egd 05/06 mild esophagitis and gastritis. Generic Scoliosis documented as of this encounter (statuses as of 11/09/2023) Resolved Problems Problem Noted Date Diagnosed Date [...] pulmonary embolism 01/30/2021 Cough variant asthma 08/17/2020 03/07/2 021 Encounter for long-term (cur rent) use [...] Per COPD GOLD Classification Spastic hemiplegia 10/23/2018 2 Body mass index (BMI) of 45. 0 [...] otitis media with effusion of both ears 10/20/19 16 02/02/2018 Bilateral chronic serous otitis media 10/19/2015 02/02/2018 Drug-seeking behavior 09/10/20152022 Overview: Pain management consult 09/05/15: do not give narcotics, "In addition,patient seems to drug seeking which is a contraindication to starting her on opioids." [facility] discharge 10/04/15: patient exhibiting behavior of narcotic dependency (requesting escalation of IV dilaudid) Weakness of both upper extremities 08/21/2015 12/12/2019 Generalized weakness 03/01/2015 018 Chronic back pain 03/01/2015 03/03/2022 Paraplegia 02/19/2015 03/25/2016 MEDICATION USE AGREEMENT 06/07/2014 Overview: Pain contract established with [facility] ED 05/26 - give valium 5 mg [...] 01/04/2023 Overview: Cysto neg 05/21/13. Following with [facility] urology Miri CERVANTES as of 09/26/2013. Resolved s/p laminectomy L4-S1 October 2013 @ [facility] [address] Dr[address] Heard. Last Assessment & Plan: [...] persistent 12/08/200910/11 Overview: Per Asthma Taxonomy, Advair, [email or web address] PFT 04/30/14: normal Acidosis 09/16/2009 02/02/2018 Overview: [...] wellbutrin 03/27: followed by Mauricio THOMPSON @ [facility] ADVANCE DIRECTIVE INFORMATION 11/17/2004 08/06/2022 Overview: No, Advance Directive brochure offered , patient declined. Allergic rhinitis 11/24/2001 11/30/2018 Overview: zyrtec Fatty liver 08/06/2022 Chronic sinusitis 11/30/2018 Overview: frequent documented as of this encounter (statuses as of 11/09/2023) Immunizations Name Administration Dates Next Due COVID-19 mRNA, LNP-s, No Pre serve, 2-Dose Series (SocStock) 06/25/2021,12/13/2020,11/15/2020 COVID-19, MRNA-LNP, 23-24, P F, 30 MCG/0.3 mL, 12 YRS AND ABOVE, IM (PFIZER-Comirnaty) 03/29/2023 Covid-19, Mrna, Lnp-s, Pf, B ivalent, 30 Mcg, IM, 12 yrs and above (Pfizer) 06/17/2022 H1N1 2009 Influenza, IM 05/27/2009 Pneumococcal Conjugate Vacci ne, 20-valent (Egkeepo08) 12/15/2021 Pneumococcal Polysaccharide PPV23 (Pneumovax) 05/01/2008 Seasonal [...] money to buy more. Never true 09/28/19 24 Within the past 12 months, t he [...] on file documented as of this encounter Last Filed Vital Signs Vital Sign Reading Time Taken Comments Blood Pressure 176/80 11/09/2023 10:12 AM EDT Pulse 86 11/09/2023 10:12 AM EDT Temperature 36.1 C (97 F) 11/09/2023 7:28 AM EDT Respiratory Rate 18 11/09/2023 10:12 AM EDT Oxygen Saturation 98% 11/09/2023 7:28 AM EDT Inhaled Oxygen Concentration - - Weight 95.7 kg (211 lb) 11/09/2023 7:28 AM EDT Height 152.4 cm (5') 11/09/2023 7:28 AM EDT Body Mass Index 41.21 11/09/2023 7:28 AM EDT documented in this encounter Functional Status Functional Status Response [...] No 07/08/2023 documented as of this encounter Discharge Instructions * Discharge Instructions* Manolo Adkins MD - 11/09/2023 10:46 AM EDT Your workup today was overall reassuring. Please continue take your antibiotics as prescribed. Return with worsening abdominal pain, persistent nausea or vomiting, inability eat or drink Please return to this Emergency Department or seek emergent care if your symptoms change, worsen significantly, or concern you in any way. Concerning symptoms that would require re-evaluation include, but are not necessarily limited to: - Fevers or shaking chills - Chest pain or difficulty breathing - Severe headache, numbness or tingling, or confusion - Persistent vomiting, severe abdominal pain, abdominal bloating, or bloody bowel movements - Inability to urinate or if your urine is significantly decreased Let us know if you have any questions regarding these instructions or the care you received here before leaving the Emergency Department. Please read the attached pamphlet for more information about your diagnosis and treatment. documented in this encounter ED Notes * Blanca Recinos RN - 11/09/2023 7:27 AM EDT Per EMS, pt c/o lower abd, kidney, and flank pain that started yesterday. +nausea. documented in this encounter Miscellaneous Notes * ED Director Of Acquisitions Note - Bobby Bass RN - 11/09/2023 10:57 AM EDT Pt provided DC instructions, verbalized understanding. Pt provided wheelchair and assistance off ofunit. * ED Director Of Acquisitions Note - Bobby Bass RN - 11/09/2023 8:30 AM EDT Pt states that she has been having bladder, and flank pain for quiet some time now. Pt reports thatshe now has some abdominal pain as well. Pt states nausea. Pt AOx4 conversational no signs of distress noted. Pt is asking for snacks. * ED Director Of Acquisitions Note - Blanca Recinos RN - 11/09/2023 7:59 AM EDT Chaperoned exam of suprapubic catheter done by Dr. Adkins. Pt tolerated well. documented in this encounter Plan of Treatment Upcoming Encounters Date Type Department Care Team (Late st Contact Info) Description 11/11/2023 9:20 AM EDT Telemedicine Nutrition & Weight Management, [place] [address] [place] [address] Gem Maher CRNP [address] [place] [address] 11/24/2023 9:00 AM EDT Therapy Psychology, [address] [phone] Ghazal Best LCSW [address] [place], [place] [phone] 11/30/2023 8:40 AM EDT Nurse Only Ancillary 1st Floor, [address] [place] [address] [place], Nurse [address] [place] [address] 12/27/2023 9:00 AM EDT Office Visit Psychiatry, [address] [place] [phone] Siomara Cole CRNP [facility] [place] [address] 12/29/2023 10:13 AM EDT Hospital Encounter OR [facility], Operating Room, [facility] - 4th Floor [facility] [place] [address] Cristiano Alaniz, DO [address] [place] [address] 12/29/2023 10:13 AM EDT - 12/29/2023 10:56 AM EDT Surgery OR [facility], Operating Room, [facility] - 4th Floor [facility] [address] Cristiano Alaniz, DO [address] [place] [address] COLONOSCOPY FLEXIBLE PROXIMAL DIAGNOSTIC 01/16/2024 12:00 PM EDT Office Visit [facility], [place] 21 [facility] [address] Sarah Saavedra PA-C 21 [place] [address] 02/02/2024 10:40 AM EDT Office Visit [facility] Jamie Angelia [address] [place] [address] Traci Ricardo MD 400 [facility] [place] [address] 03/01/2024 11:20 AM EDT Office Visit Neurology [facility] 200 [facility] [address] Maureen Bowie MD 200 [facility] [address] 03/05/2024 9:30 AM EDT Office Visit Interventional Pain Ctr Bow Angelia [address] [place] [address] Devon Damon PA-C [address] [place] [address] Scheduled Procedures Name Priority Associated Diagnoses Date/Ti [...] this encounter Medical Devices Implanted Type Area Food Editor Device Identifier Shelf Expiration Date Model / Serial / Lot Plate Small Mtpj - [id number] Implanted:Qty: 1 on 11/15/2017 by Cristobal Calvillo MD at OR [facility] Left: Foot [id number] / / Screw Locking 2.7x14mm - [id number] Implanted:Qty: 1 on 11/15/2017 by Cristobal Calvillo MD at OR [facility] Left: Foot [id number] / / 2.7 X 16mm Locking Screw Implanted:Qty: 2 on 11/15/2017 by Cristobal Calvillo MD at OR [facility] Left: Foot [employer] [id number] / / 2.7 X 20 Locking Screw Implanted:Qty: 1 on 11/15/2017 by Cristobal Calvillo MD at OR [facility] Left: Foot [employer] [id number] / / 2.7 X 18mm Locking Screw Implanted:Qty: 1 on 11/15/2017 by Cristobal Calvillo MD at OR [facility] Left: Foot [employer] [id number] / / Screw Locking 2.7x10mm - [id number] Implanted:Qty: 1 on 11/15/2017 by Cristobal Calvillo MD at OR [facility] Left: Foot [employer] [id number] / / 4.0mm X 44 Mm Compression Screw Implanted:Qty: 1 on 10/09/2018 by Bao Hernández MD at OR [facility] Left: Foot AR-8740-44 H / / Description:Implant from set 2.5x30 Compression Screw Implanted:Qty: 1 on 10/09/2018 by Bao Hernández MD at OR [facility] Left: Foot [employer] AR-8725-30 H / / Screw [employer] 2.7vyv64vg - [id number] Implanted:Qty: 2 on 02/01/2022 by Bao Hernández MD at OR [facility] Right: Toe [employer] [id number] / / Plate Mtpj - [id number] Implanted:Qty: 1 on 02/01/2022 by Bao Hernández MD at OR [facility] Right: Foot [employer] [id number] / / Screw Locking 2.7x10mm - [id number] Implanted:Qty: 2 on 02/01/2022 by Bao Hernández MD at OR [facility] Right: Foot [employer] 0529-8209 / / Screw Locking 2.7x12mm - [id number] Implanted:Qty: 3 on 02/01/2022 by Bao Hernández MD at OR [facility] Right: Foot [employer] [id number] / / Screw Locking 2.7x14mm - [id number] Implanted:Qty: 1 on 02/01/2022 by Bao Hernández MD at OR [facility] Right: Foot [employer] 2235-1867 / / Screw [employer] 2.0gkm06nt - [id number] Implanted:Qty: 1 on 02/01/2022 by Bao Hernández MD at OR [facility] Right: Toe [employer] [id number] / / Port Implant W/8f Poly Cath - [id number] Implanted:Qty: 1 on 06/02/2022 by Lawrence Cat DO at OR [facility] Right: Chest CR BARD : PERIPHERAL VASCULAR [id number] 05/12/2023 [id number] / / [id number] documented as of this encounter Procedures Procedure Name Priority Date/Time Associated Diagnosis Comments DIFFERENTIAL, AUTOMATED STAT 11/09/2023 8:19 AM EDT COMPREHENSIVE METABOLIC PANEL STAT 11/09/2023 8:19 AM EDT CBC STAT 11/09/2023 8:19 AM EDT LIPASE STAT 11/09/2023 8:19 AM EDT CBC STAT 11/09/2023 8:19 AM EDT documented in this encounter Results * DIFFERENTIAL, AUTOMATED (11/09/2023 8:19 AM EDT) WBC 5.65 4.00 - 10.80 K/uL 11/09/2023 10:09 AM EDT LAB[facility]ORY [facility] Neutrophils % 50.3 40.0 - 75.0 % 11/09/2023 10:09 AM EDT [facility] Lymphocytes % 39.1 18.0 - 42.0 % 11/09/2023 10:09 AM EDT [facility] Monocytes % 7.4 1.0 - 11.0 % 11/09/2023 10:09 AM EDT [facility] Eosinophils % 1.9 0.0 - 6.0 % 11/09/2023 10:09 AM EDT [facility] Basophils % 0.9 0.0 - 2.0 % 11/09/2023 10:09 AM EDT [facility] Immature Granulocytes % 0.4 0.0 - 2.0 % 11/09/2023 10:09 AM EDT [facility] Absolute Neutrophils 2.84 1.80 - 7.70 K/uL 11/09/2023 10:09 AM EDT LAB[facility] Absolute Lymphocytes 2.21 1.00 - 4.80 K/ul 11/09/2023 10:09 AM EDT [facility] Absolute Monocytes 0.42 0.00 - 1.10 K/uL 11/09/2023 10:09 AM EDT LAB[facility] Absolute Eosinophils 0.11 0.00 - 0.70 K/uL 11/09/2023 10:09 AM EDT [facility] Absolute Basophils 0.05 0.00 - 0.20 K/uL 11/09/2023 10:09 AM EDT [facility] Absolute Immature Granulocytes 0.02 0.00 - 0.20 K/uL 11/09/2023 10:09 AM EDT [facility] Blood Venous blood specimen / Unknown Venipuncture / Unknown 11/09/2023 8:19 AM EDT 11/09/2023 10:06 AM EDT Manolo Adkins MD LAB BLOOD ORDERA BLES Performing Organization Address City/[facility]/ZIP Co de Phone Number LABORATORY [facility] [address] [place], [place] [phone] * CBC (11/09/2023 8:19 AM EDT) WBC 5.65 4.00 - 10.80 K/uL 11/09/2023 10:09 AM EDT LABORATORY [facility] RBC 4.58 3.85 - 5.15 M/uL 11/09/2023 10:09 AM EDT LABORATORY [facility] HGB 13.8 12.0 - 15.3 g/dL 11/09/2023 10:09 AM EDT LABORATORY [facility] HCT 41.6 36.0 - 45.2 % 11/09/2023 10:09 AM EDT LABORATORY [facility] MCV 90.8 81.5 - 97.5 fL 11/09/2023 10:09 AM EDT LABORATORY [facility] MCH 30.1 27.0 - 34.0 pg 11/09/2023 10:09 AM EDT LABORATORY [facility] MCHC 33.2 32.0 - 36.0 g/dL 11/09/2023 10:09 AM EDT LABORATORY [facility] RDW 14.3 11.5 - 15.5 % 11/09/2023 10:09 AM EDT LABORATORY [facility] PLT 315 140 - 400 K/uL 11/09/2023 10:09 AM EDT LABORATORY [facility] MPV 9.7 6.6 - 11.1 fL 11/09/2023 10:09 AM EDT LABORATORY [facility] nRBCs 0 <=0 /100 WBCs 11/09/2023 10:09 AM EDT LABORATORY [facility] Blood Venous blood specimen / Unknown Venipuncture / Unknown 11/09/2023 8:19 AM EDT 11/09/2023 10:06 AM EDT Manolo Adkins MD LAB BLOOD ORDERA BLES Performing Organization Address City/[facility]/ZIP Co de Phone Number LABORATORY [address] [address] * LIPASE (11/09/2023 8:19 AM EDT) Lipase 32 13 - 60 U/L 11/09/2023 10:36 AM EDT LABORATORY [facility] Blood Venous blood specimen / Unknown Venipuncture / Unknown 11/09/2023 8:19 AM EDT 11/09/2023 10:06 AM EDT Manolo Adkins MD LAB BLOOD ORDERA BLES LABORATORY GL [address] [facility] [place] [address] * (ABNORMAL) COMPREHENSIVE METABOLIC PANEL (11/09/2023 8:19 AM EDT) BUN 11 6 - 20 mg/dL 11/09/2023 10:36 AM EDT [facility] Creatinine 0.6 0.5 - 1.0 mg/dL 11/09/2023 10:36 AM EDT LAB[facility] Estimated Glomerular Filtration Rate >90 >=60 mL/min 11/09/2023 10:36 AM EDT [facility] Comment:eGFR is calculated b ased on the CKD-EPI 2020 equation Sodium 141 135 - 146 mmol/L 11/09/2023 10:36 AM EDT [facility] Potassium 4.4 3.5 - 5.1 mmol/L 11/09/2023 10:36 AM EDT [facility] Comment:Result may be falsel y elevated due to hemolysis. Chloride 108(H) 98 - 107 mmol/L 11/09/2023 10:36 AM EDT LAB[facility] CO2 21(L) 22 - 32 mmol/L 11/09/2023 10:36 AM EDT [facility] Anion Gap 12 7 - 15 mmol/L 11/09/2023 10:36 AM EDT [facility] Glucose 84 70 - 120 mg/dL 11/09/2023 10:36 AM EDT [facility] Albumin 4.0 3.8 - 5.0 g/dL 11/09/2023 10:36 AM EDT [facility] AST 37(H) 10 - 35 U/L 11/09/2023 10:36 AM EDT [facility] Comment:Result may be falsel y elevated due to hemolysis. Alkaline Phosphatase 80 35 - 130 U/L 11/09/2023 10:36 AM EDT [facility] Bilirubin, Total 0.2 <=1.2 mg/dL 11/09/2023 10:36 AM EDT [facility] Calcium 9.3 8.4 - 10.2 mg/dL 11/09/2023 10:36 AM EDT [facility] Protein 7.3 6.0 - 8.3 g/dL 11/09/2023 10:36 AM EDT [facility] ALT 19 10 - 35 U/L 11/09/2023 10:36 AM EDT [facility] Blood Venous blood specimen / Unknown Venipuncture / Unknown 11/09/2023 8:19 AM EDT 11/09/2023 10:06 AM EDT Manolo Adkins MD LAB BLOOD ORDERA BLES Performing Organization Address City/State/[facility] Co de Phone Number [facility]ATORY [facility] [address] [place] [phone] documented in this encounter Visit Diagnoses Diagnosis Abdominal discomfort- Primary Abdominal pain, unspecified site RLQ abdominal pain Abdominal pain, right lower quadrant Constipation, unspecified constipation type Abnormal CT of the abdomen Nonspecific (abnormal) findings on radiological and other examination of abdominal area, including retroperitoneum documented in this encounter Administered Medications Inactive Administered Medications - up to 3 most recent administrations Medication Order MAR Action Action Date Dose Rate Site diphenhydrAMINE (Benadryl) inj 25 mg 25 mg, Intramuscular, ONCE, On Tue11/09/23 at 0900, For 1 dose Given 11/09/2023 8:27 AM EDT 25 mg Deltoid Right Lower droPERidol (Inapsine) inj 0.625 mg 0.625 mg, Intramuscular, ONCE, On Tue11/09/23 at 0845, For 1 dose Given 11/09/2023 8:26 AM EDT 0.625 mg Deltoid Right Upper droPERidol (Inapsine) inj 0.625 mg 0.625 mg, Intramuscular, ONCE, On Tue11/09/23 at 1030, For 1 dose Given 11/09/2023 10:09 AM EDT 0.625 mg Deltoid Left Upper Fluconazole (Diflucan) tab 150 mg 150 mg, Oral, ONCE, On Tue11/09/23 at 0845, For 1 dose Given 11/09/2023 8:24 AM EDT 150 mg ketorolac (Toradol) 30 MG/ML inj 15 mg 15 mg, Intramuscular, ONCE, On Tue11/09/23 at 0845, For 1 dose Given 11/09/2023 8:30 AM EDT 15 mg Deltoid Left Upper documented in this encounter Active and Recently Administered Medications Times are shown in EDT. Scheduled Medication Order 11/07/2023 11/08/2023 11/09/2023 diphenhydrAMINE (Benadryl) inj 25 mg (COMPLETED) 25 mg, Intramuscular, ONCE, On Tue11/09/23 at 0900, For 1 dose 0827 (Given - Provid er: Bobby Bass RN) droPERidol (Inapsine) inj 0.625 mg (COMPLETED) 0.625 mg, Intramuscular, ONCE, On Tue11/09/23 at 0845, For 1 dose 0826 (Given - Provid er: Bobby Bass RN) droPERidol (Inapsine) inj 0.625 mg (COMPLETED) 0.625 mg, Intramuscular, ONCE, On Tue11/09/23 at 1030, For 1 dose 1009 (Given - Provid er: Bobby Bass RN) Fluconazole (Diflucan) tab 150 mg (COMPLETED) 150 mg, Oral, ONCE, On Tue11/09/23 at 0845, For 1 dose 0824 (Given - Provid er: Bobby Bass RN) ketorolac (Toradol) 30 MG/ML inj 15 mg (COMPLETED) 15 mg, Intramuscular, ONCE, On Tue11/09/23 at 0845, For 1 dose 0830 (Given - Provid er: Bobby Bass RN) documented in this encounter Advance Directives Documents on File Type Date Recorded Patient Entry Level Sales Consultant Expl matyion KUSUM 12/03/2020 KUSUM LEE ORDERS FOR LIFE-SUSTAINING TREATMENT * Full Code [...] File Name Relationship Healthcare Agent Relationship Communication Nirosana Mancini Grandparent [facility] Care Agent Andria Addison Mother Emergency Contact Care Teams Concrete Saw Operator Relationship Specialty Start Date End Date Sarah Saavedra PA-C [address] [place] [id number] PCP - General Physician Boat Detailer 09/06/23 documented as of this encounter
--- OUTSIDE RECORDS SUMMARY | 2023-11-11 06:50 | External Medical Summary ---
Author Name Unknown Address Unknown Organization K1F:LABORATORY [facility] - [address] [place] [address] Laboratory Report Ordering Provider Test Date Status KHLOE LAM 11/09/2023 08:19:00 Final Observation Date Value Abnormality Reference (Units ) Status Lipase 11/09/2023 08:19:00 32 13-60 (U/L ) Final Performing Location [facility] - [address] [place] [address]
--- OUTSIDE RECORDS SUMMARY | 2023-11-11 06:50 | External Medical Summary ---
Author Name Unknown Address Unknown Organization K1F:LABORATORY [facility] - [address] [facility] [place] [address] Laboratory Report Ordering Provider Test Date Status KHLOE LAM 11/09/2023 08:19:00 Final Observation Date Value Abnormality Reference (Units ) Status SYNC LEUKOCYTES IN BLOOD BY AUTOMATED COUNT 11/09/2023 08:19:00 5.65 4.00-10.80 (K/uL) Final Segs 11/09/2023 08:19:00 50.3 40.0-75.0 (%) Final Lymphs % 11/09/2023 08:19:00 39.1 18.0-42.0 (%) Final Monos 11/09/2023 08:19:00 7.4 1.0-11.0 (%) Final Eosinophils 11/09/2023 08:19:00 1.9 0.0-6.0 (%) Final Basos 11/09/2023 08:19:00 0.9 0.0-2.0 (%) Final Immature Granulocyte, Percent 11/09/2023 08:19:00 0.4 0.0-2.0 (%) Final Absolute Segs 11/09/2023 08:19:00 2.84 1.80-7.70 (K/uL) Final Lymphs, absolute 11/09/2023 08:19:00 2.21 1.00-4.80 (K/ul) Final Monos, Abs 11/09/2023 08:19:00 0.42 0.00-1.10 (K/uL) Final Eos, Abs 11/09/2023 08:19:00 0.11 0.00-0.70 (K/uL) Final Basos, Abs 11/09/2023 08:19:00 0.05 0.00-0.20 (K/uL) Final Immature Granulocytes, Number 11/09/2023 08:19:00 0.02 0.00-0.20 (K/uL) Final Performing Location LAB[facility]ATORY [facility] - [address] [facility] [place] [address]
--- OUTSIDE RECORDS SUMMARY | 2023-11-11 06:50 | External Medical Summary ---
Author Name Unknown Address Unknown Organization K1F:[facility] - [address] [facility] [place] [id number] Laboratory Report Ordering Provider Test Date Status CAROLEKHLOE 11/09/2023 08:19:00 Final Observation Date Value Abnormality Reference (Units ) Status BUN 11/09/2023 08:19:00 11 6-20 (mg/dL) Final Creatinine 11/09/2023 08:19:00 0.6 0.5-1.0 (mg/dL) Final Glomerular filtration rate/1.73 sq M.predicted [Volume Rate/Area] in Serum, Plasma or Blood by Creatinine-based formula (CKD-EPI) 11/09/2023 08:19:00 >90 >=60 (mL/min) Final eGFR is calculated based on the CKD-EPI 2020 equation Sodium 11/09/2023 08:19:00 141 135-146 (m mol/L) Final Potassium 11/09/2023 08:19:00 4.4 3.5-5.1 (m mol/L) Final Result may be falsely elevat ed due to hemolysis. Cl 11/09/2023 08:19:00 108 Above high normal 98 -107 (mmol/L) Final CO2 11/09/2023 08:19:00 21 Below low normal 22- 32 (mmol/L) Final Anion gap 11/09/2023 08:19:00 12 7-15 (mmol /L) Final Glucose 11/09/2023 08:19:00 84 70-120 (mg /dL) Final Albumin 11/09/2023 08:19:00 4.0 3.8-5.0 (g /dL) Final AST (Aspartate aminotransferase) 11/09/2023 08:19:00 37 Above high normal 10-35 (U/L) Final Result may be falsely elevat ed due to hemolysis. Alk Phos 11/09/2023 08:19:00 80 35-130 (U/ L) Final Bilirubin, Total 11/09/2023 08:19:00 0.2 <=1 .2 (mg/dL) Final Calcium 11/09/2023 08:19:00 9.3 8.4-10.2 ( mg/dL) Final Protein 11/09/2023 08:19:00 7.3 6.0-8.3 (g /dL) Final ALT (Alanine aminotransferase) 11/09/2023 08:19:00 19 10-35 (U/L) Final Performing Location LAB[facility]ATORY [facility] - [address] [place], [place] [address]kareem Maharaj. [place] [id number]
--- OUTSIDE RECORDS SUMMARY | 2023-11-11 06:50 | External Medical Summary ---
Author Name Unknown Address Unknown Organization K1F:[facility]ATORY [facility] - [address] [place] [address] Laboratory Report Ordering Provider Test Date Status JONATAN LAMKAUR 11/09/2023 08:19:00 Final Observation Date Value Abnormality Reference (Units ) Status WBC, Total 11/09/2023 08:19:00 5.65 4.00-10.80 (K/uL) Final RBC 11/09/2023 08:19:00 4.58 3.85-5.15 (M/uL) Final Hemoglobin 11/09/2023 08:19:00 13.8 12.0-15.3 (g/dL) Final HCT 11/09/2023 08:19:00 41.6 36.0-45.2 (%) Final MCV 11/09/2023 08:19:00 90.8 81.5-97.5 (fL) Final MCH 11/09/2023 08:19:00 30.1 27.0-34.0 (pg) Final MCHC 11/09/2023 08:19:00 33.2 32.0-36.0 (g/dL) Final RDW 11/09/2023 08:19:00 14.3 11.5-15.5 (%) Final Platelets 11/09/2023 08:19:00 315 140-400 (K/uL) Final MPV 11/09/2023 08:19:00 9.7 6.6-11.1 (fL) Final Nucleated erythrocytes/100 leukocytes [Ratio] in Blood by Automated count 11/09/2023 08:19:00 0 <=0 (/100 WBCs) Final Performing Location LABORATORY [facility] - [address] [place] [id number]
--- OUTSIDE RECORDS SUMMARY | 2023-11-11 06:50 | External Medical Summary | Summary of Care ---
Author Name Unknown Organization [facility] Address [address] [place] [address] Phone [phone] Care Team Providers Care Semiconductor Development Technician Name Role Phone Sarah Saavedra PA-C Primary Care Provider [phone] Reason for Visit * Reason Comments Acute Encounter Details Date Type Department Care Team (Late st Contact Info) Description 11/08/2023 9:40 AM EDT Telemedicine [facility] [address] [facility] [place] [address] Cydney Moe MD 21 [facility] [place] [address] Urinary tract infection associated with catheterization of urinary tract, unspecified indwelling urinary catheter type, subsequent encounter*; Prediabetes; Hypoglycemia; Bladder spasm; S/P gastric bypass Allergies Active Allergy Reactions Criticality Noted Date [...] said itching Latex Itching 09/26/2013 Linezolid 10/23/2014 [place] Other (Please comment) High 12/29/2014 Became unresponsive [...] as of this encounter (statuses as of 11/08/2023) Medications Medication Sig Dispensed Refills Start Date End Date Status docusate sodium (COLACE) 100 MG Capsule Take 1 Cap by mouth 2 times a day. 68 Cap 11/30/19 18 Active Cymbalta 60 MG Oral Capsule Delayed Release Particles Take 1 Capsule by mouth in the morning. Active calcium CARBonate (TUMS E-X) 750 MG chewable tablet Take 1 Tab by mouth 2 times a day as needed for Heartburn. 90 Tab 12/09/19 20 Active Polyethylene Glycol 3350 17 GM/SCOOP Oral Powder (MiraLax)Indicati ons:Other constipation Take 17 g by mouth in the morning. Dissolve one heaping tablespoon in 8 ounces of water or juice.. 225 g 3 06/21/19 23 Active Acetaminophen 500 MG Oral Tablet Take 2 Tablets by mouth every 6 hours. Active Oxybutynin Chloride 5 MG Oral Tablet (Ditropan) TAKE 1 TABLET BY MOUTH EVERY 8 HOURS NEEDED FOR BLADDER SPASMS 90 Tablet 6 09/02/19 23 Active Tolterodine Tartrate ER 2 MG Oral Capsule Extended Release 24 Hour (Detrol LA) TAKE ONE CAPSULE BY MOUTH ONCE DAILY IN THE MORNING 30 Capsule 6 01/12/20 Active Ramelteon 8 MG Oral Tablet Take 1 Tablet by mouth at bedtime. 01/28/20 23 Active Lurasidone HCl 40 MG Oral Tablet (Latuda) Take 1 Tablet by mouth every evening. With a meal 03/04/20 Active Topiramate 50 MG Oral Tablet (topAMAX) Take 1 Tablet by mouth in the morning and 1 Tablet before bedtime. Active Cetirizine HCl 10 MG Oral Tablet (ZyrTEC)Indicatio ns:Seasonal allergies Take 1 Tablet by mouth in the morning. 90 Tablet 3 03/11/20 23 Active Promethazine HCl 25 MG Oral Tablet (Phenergan)Indica tions:Nausea Take 1 Tablet by mouth every 6 hours as needed for Nausea. 30 Tablet 1 04/04/20 23 Active ZOLMitriptan 5 MG Oral Tablet (Zomig) One at onset migraine may repeat in 2 hours maximum 2 doses in 24 hours 10 Tablet 5 05/18/20 Active Additional Information Patient not taking.Reported on 10/31/2023 Albuterol Sulfate HFA 108 (90 Base) MCG/ACT Inhalation Aerosol SolutionIndicatio ns:Wheezing INHALE 2 puffs BY MOUTH EVERY 4 HOURS NEEDED FOR wheezing 8.5 g 1 06/21/19 24 Active Additional Information Patient not taking.Reported on 10/31/2023 Baclofen 20 MG Oral Tablet TAKE 1 TABLET BY MOUTH IN THE MORNING, NOON, EVENING AND BEDTIME 360 Tablet 06/30/19 24 Active Botox 100 UNIT Injection Solution Reconstituted (botulinum toxin type a) Inject 300 units intramuscularly into dytonic areas as well as head and neck for migraines every 3 months 3 Each 3 07/04/19 24 Active Apixaban 5 MG Oral Tablet (Eliquis) Take 1 Tablet by mouth in the morning and 1 Tablet before bedtime. 180 Tablet 2 07/22/19 24 Active Diclofenac Sodium 1 % External Gel (Voltaren)Indicat ions:Chronic pain of left knee Apply 4 g topically to affected area 4 times a day as needed for Pain. 100 g 07/22/19 24 Active Naloxone HCl 4 MG/0.1ML Nasal Liquid (Narcan Nasal) Administer 1 spray into 1 nostril for suspected opioid overdose. Seek immediate medical attention. [email or web address]://[email or web address]/[email or web address]?v=[email or web address] 1 Each 3 07/28/19 24 Active Additional Information Patient not taking.Reported on 10/06/2023 Cyclobenzaprine HCl 10 MG Oral Tablet (Flexeril) Take 1 Tablet by mouth in the morning and 1 Tablet at noon and 1 Tablet before bedtime. 06/30/19 Active hydrOXYzine HCl 50 MG Oral Tablet Take 1 Tablet by mouth 3 times a day as needed. 07/29/19 24 Active diphenhydrAMINE-Z inc Acetate 2-0.1 % External Cream (Benadryl Extra Strength) Apply topically to affected area 4 times a day as needed for Itching. 30 g 1 08/09/19 Active Additional Information Patient not taking.Reported on 10/31/2023 Ipratropium-Albut marla 0.5-2.5 (3) MG/3ML Inhalation Solution (Duoneb)Indicatio ns:Asthma in remission,COVID-1 9 virus infection Inhale 3 mL via nebulizer every 6 hours as needed for Shortness of Breath or Wheezing. 360 mL 1 08/10/19 24 Active Additional Information Patient not taking.Reported on 10/31/2023 Pantoprazole Sodium 40 MG Oral Tablet Delayed Release (Protonix)Indicat ions:Abdominal pain, generalized TAKE 1 TABLET BY MOUTH IN THE MORNING & TAKE 1 TABLET IN THE EVENING 180 Tablet 1 08/30/19 24 Active traZODone HCl 100 MG Oral Tablet (Desyrel) TAKE ONE TABLET BY MOUTH AT BEDTIME DIRECTED 08/29/19 Active Clotrimazole 1 % External Cream (Lotrimin) Apply topically to affected area 2 times a day. Apply to abdominal crease, apply ONE Time per day x 14 days then stop 15 g 1 09/13/19 24 Active Additional Information Patient not taking.Reported on 10/31/2023 Famotidine 20 MG Oral Tablet (Pepcid)Indicatio ns:Gastroesophage al reflux disease without esophagitis Take 1 Tablet by mouth daily as needed for Heartburn. 90 Tablet 1 09/19/19 24 Active Prochlorperazine Maleate 10 MG Oral Tablet (Compazine)Indica tions:Nausea Take 1 Tablet by mouth every 6 hours as needed for Nausea. 30 Tablet 2 09/19/19 24 Active Ajovy 225 MG/1.5ML Subcutaneous Solution Prefilled Syringe (AlpaezLoandesk-vfr m) Inject 1.5 mL under the skin every month. 1.5 mL 3 09/27/19 24 Active DULoxetine HCl 30 MG Oral Capsule Delayed Release Particles (Cymbalta) Take 1 Capsule by mouth in the morning. Active Ubrelvy 50 MG Oral Tablet (Ubrogepant) Take 1 tablet at onset of migraine and may repeat in 2 hours if needed. Do not exceed 2 tablets in 24 hours. 10 Tablet 5 10/05/19 24 Active Additional Information Patient not taking.Reported on 10/31/2023 diazePAM 2 MG Oral Tablet (Valium)Indicatio ns:Spastic diplegic cerebral palsy (HCC) 1 Three times a day, may cause sedation 90 Tablet 1 10/13/19 24 Active Fluconazole 150 MG Oral Tablet (Diflucan)Indicat ions:Yeast vaginitis Take 1 Tablet by mouth every 3 days. 3 Tablet 10/28/19 24 Active Linzess 145 MCG Oral Capsule (linaCLOtide)Theresa cations:Constipat ion, unspecified constipation type Take 1 Capsule by mouth daily before breakfast. 30 Capsule 11 10/28/19 24 Active Phenazopyridine HCl 200 MG Oral Tablet (Pyridium) Take 1 Tablet by mouth every 8 hours as needed. For pain. 10/27/19 24 Active Ondansetron HCl 4 MG Oral TabletIndications :Nausea Take 1 Tablet by mouth every 8 hours as needed for Nausea or Vomiting. 30 Tablet 1 10/31/19 24 Active Sucralfate 1 GM Oral Tablet (Carafate)Indicat ions:Epigastric pain Take 1 Tablet by mouth 4 times a day before meals and at bedtime. half an hour before meals and at bedtime 120 Tablet 10/31/19 24 Active Acetaminophen-Cod eine 300-30 MG Oral TabletIndications :Cervicalgia,Lumb ar radicular pain Take 1 Tablet by mouth 3 times a day as needed for Pain, Severe. On Physical Therapy days may take one extra tablet as needed for severe pain. Do not start before November 08, 2023. 23 Tablet 11/08/19 24 Active Amoxicillin-Pot Clavulanate 875-125 MG Oral Tablet (Augmentin) Take 1 Tablet by mouth in the morning and 1 Tablet before bedtime. 20 Tablet 11/06/19 24 Active OneTouch Verio w/Device KitIndications:Pr ediabetes,Hypogly cemia Use up to 3 times per day E16.2 1 Kit 11/08/19 24 Active Glucose Blood In Vitro Strip (OneTouch Ultra Blue)Indications: Prediabetes,Hypog lycemia E16.2 100 Strip 2 11/08/19 24 Active oxyCODONE-Acetami nophen 5-325 MG Oral Tablet (Percocet)Indicat ions:Bladder spasm Take 1 Tablet by mouth every 6 hours as needed for Pain, Severe. Skip two Tylenol# 3 tablet if taking Oxycodone. 2 Tablet 11/08/19 24 Active oxyCODONE-Acetami nophen 5-325 MG Oral Tablet (Percocet) Take 1 Tablet by mouth every 6 hours as needed for Pain, Severe (Pain). Skip two Tylenol# 3 tablet if taking Oxycodone. 2 Tablet 11/04/19 24 024 Discontinued(Re fill) OneTouch UltraSoft LancetsIndication s:Prediabetes,Hyp oglycemia Use up to 3 times daily E16.2 100 Each 2 11/08/19 24 024 Discontinued OneTouch Delica Lancing DevIndications:Pr ediabetes,Hypogly cemia E 16.2 1 Each 11/08/19 24 024 Discontinued Hospital, Clinic, or Other Facility Administered Medication Ordered Dose Route Frequency Start Date End Date Status vitamin b-12 (Cyanocobalamin) inj 1,000 mcgIndications:S/P gastric bypass 1000 mcg IM [id number] 08/30/2023 06/03/2026 Active documented as of this encounter (statuses as of 11/08/2023) Active Problems Problem Noted Date Diagnosed Date Postsurgical malabsorption, 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 07/12/2023 Chronic migraine without aur a, not intractable, without status migrainosus 06/26/2023 Morbid obesity with body mass index of 40.0-44.9 in adult 05/24/2023 Migraine 05/24/2023 Asthma in remission 03/21/2023 Vaginal candidiasis 03/02/2023 VRE (vancomycin resistant enterococcus) culture positive 02/27/2023 Localized osteoporosis witho ut current pathological fracture 11/16/2022 Intestinal postoperative nonabsorption 02/01/202 3 Dehydration 05/11/2022 Overview: historical S/P gastric bypass 05/07/2022 Bipolar disorder, curr episo de depressed, severe, w/psychotic features 05/03/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 [place] atypical for ACS. ED workup neg for [...] & Plan: Primary reason for transfer from [facility]. C/o LE weakness and acute/chronic low back pain. Lumbar spine MRI reportedly performed @ [facility], not available for review Pt denies receiving steroid injections D/C IV dilaudid. Resume PO hydromorphone 4mg in setting of subjected acute on chronic low back pain, foot pain and now chest pain Encourage use of tylenol 1000mg or ibuprofen 600mg PRN Chronic suprapubic catheter 05/31/2014 Overview: Placed 05/26 @ [facility] by interventional radiology for urinary retention [...] disc without myelopathy 03/03/2006 Overview: Rigth L5-S1. [place] injections. Did not help. For discectomy at [facility] 08/31/06. Had subsequent MRSA graft Remove [...] 01/23: sees Dr. Mock (spine surgeon) @ [facility] 10/24: lumbar spinal surgery by Dr. Bob Heard 09/11/15: bulging disc with moderate narrowing of neural foramen B L4-5 and R L5- S1 Gastroesophageal reflux disease without esophagi tis 08/15/2003 Overview: EGD 12/23: + small hiatal hernia, no gastritis; increase PPI to protonix 40 mg bid Egd 10/16 mild esophagitis and gastritis. Generic Scoliosis documented as of this encounter (statuses as of 11/08/2023) Resolved Problems Problem Noted Date Diagnosed Date [...] up to twice per week without complication 03/09/2021 02/2 09/2022 Acute pulmonary embolism 01/30/2021 Cough variant asthma [...] contraindication to starting her on opioids." [facility] discharge 10/04/15: patient exhibiting behavior of narcotic dependency (requesting escalation of IV dilaudid) Weakness of both upper extremities 08/21/2015 12/12/2019 Generalized weakness 03/01/2015 018 Chronic back pain 03/01/2015 03/03/2022 Paraplegia 02/19/2015 03/25/2016 MEDICATION USE AGREEMENT 06/07/2014 Overview: Pain contract established with [facility] ED 05/26 - give valium 5 mg [...] 01/04/2023 Overview: Cysto neg 05/21/13. Following with [facility] urology Miri CERVANTES as of 09/26/2013. Resolved s/p laminectomy L4-S1 October 2013 @ [place] [address] Dr[address] Heard. Last Assessment & Plan: [...] mild persistent 12/08/200910/11 Overview: Per Asthma Taxonomy, yasmany Randhawa PFT 04/30/14: normal Acidosis 09/16/2009 02/02/2018 Overview: [...] wellbutrin 03/27: followed by Mauricio THOMPSON @ [facility] ADVANCE DIRECTIVE INFORMATION 11/17/2004 08/06/2022 Overview: No, Advance Directive brochure offered , patient declined. Allergic rhinitis 11/24/2001 11/30/2018 Overview: zyrtec Fatty liver 08/06/2022 Chronic sinusitis 11/30/2018 Overview: frequent documented as of this encounter (statuses as of 11/08/2023) Immunizations Name Administration Dates Next Due COVID-19 mRNA, LNP-s, No Pre serve, 2-Dose Series ([employer]) 06/25/2021,12/13/2020,11/15/2020 COVID-19, MRNA-LNP, 23-24, P F, 30 MCG/0.3 mL, 12 YRS AND ABOVE, IM (PFIZER-Comirnaty) 03/29/2023 Covid-19, Mrna, Lnp-s, Pf, B ivalent, 30 Mcg, IM, 12 yrs and above (Pfizer) 06/17/2022 H1N1 2009 Influenza, IM 05/27/2009 Pneumococcal Conjugate Vacci ne, 20-valent ([id number]) 12/15/2021 Pneumococcal Polysaccharide PPV23 (Pneumovax) 05/01/2008 Seasonal Influenza, PF, 6 M & above, IM , (FluLaval or Fluzone) 02/22/2023,03/03/2022,03/25/2021,03/18,02/15/2019,03/29/2018 Seasonal Influenza, Quadriva lent, No Preserve, IM 04/01/2016 Seasonal Influenza, Quadriva lent, No Preserve, Peds 04/27/2017 Seasonal Influenza, Split, I IV3, With Preserve, Inj 02/24/2015,03/05/2014,04/17/2013,04/05,03/26/2009,04/16/2008,04/26/2007 ,03/22/2006 TDAP (age 10 and older)(Boostrix) 04/23/2019 TDAP (age 11 and older)(Adacel) 03/26/2009 documented as of this encounter Social [...] No 07/08/2023 documented as of this encounter Progress Notes * Cydney Moe MD - 11/08/2023 9:54 AM EDT Images from the original note were not included. History of Present Illness Gricel Mancini is a 38 year old female that presents for No chief complaint on file. Acute visit. Patient reports bladder and right flank pain. ED visit 11/06/23 UTI , on Augmentin BID for 7 days No fevers/chills/no vomiting. Urology on , she will contact her urology provider. Pain level (bladder and flank pain) 9/10 With Tylenol 3 pain 7/10 With Percocet 3/10 In PT ( till 12/15/2023), getting better (back/legs), plan to rest and then to return to PT in January. Other: S/p bariatric surgery Intermittent hypoglycemia, BG gets low in 50. Patient eats 3 meals per day. Physical Exam There were no vitals filed for this visit. Physical Exam Constitutional: Appearance: Normal appearance. HENT: Head: Normocephalic and atraumatic. Nose: Nose normal. Pulmonary: Effort: Pulmonary effort is normal. Neurological: Mental Status: She is alert and oriented to person, place, and time. Psychiatric: Mood and Affect: Mood normal. Behavior: Behavior normal. I have reviewed the following results: Assessment and Plan 1. Prediabetes - OneTouch Verio w/Device Kit; Use up to 3 times per day E16.2 Dispense: 1 Kit; Refill: 0 - Glucose Blood In Vitro Strip (OneTouch Ultra Blue); E16.2 Dispense: 100 Strip; Refill: 2 2. Hypoglycemia - OneTouch Verio w/Device Kit; Use up to 3 times per day E16.2 Dispense: 1 Kit; Refill: 0 - Glucose Blood In Vitro Strip (OneTouch Ultra Blue); E16.2 Dispense: 100 Strip; Refill: 2 3. Urinary tract infection associated with catheterization of urinary tract, unspecified indwellingurinary catheter type, subsequent encounter - on Augmentin 4. Bladder spasm - oxyCODONE-Acetaminophen 5-325 MG Oral Tablet (Percocet); Take 1 Tablet by mouth every 6 hours as needed for Pain, Severe. Skip two Tylenol# 3 tablet if taking Oxycodone. Dispense: 2 Tablet; Refill:0 - patient will contact her urologist 5. S/P gastric bypass - diet discussed (small frequent meals, protein+ complex carb) - patient will contact her dietitian from weight management clinic Wrap-Up As needed Time: I spent a total of 10-19 minutes (exact time 15 mins) on the date of service in preparation, delivery, and documentation of the care provided to Gricel Mancini excluding any time spent in the performance of separately billed services. Telemedicine: Patient location: HOME. I was in a hospital or clinic location. After connecting through [employer],patient was verified with two unique identifiers. Patient (or authorized legal dermatology sales representative) was then informed that this was a Telemedicine visit and being conducted confidentially over secure lines. Methods to assure confidentiality were taken. Patient acknowledged consent and understanding of pr ivacy and security of the Telemedicine visit. The patient agreed to participate. documented in this encounter Plan of Treatment Upcoming Encounters Date Type Department Care Team (Late st Contact Info) Description 11/11/2023 9:20 AM EDT Telemedicine Nutrition & Weight Management, [place] [address] [place] [address] Gem Maher CRNP [address] [facility] [place] [address] 11/24/2023 9:00 AM EDT Therapy Psychology, [place] [address] [place] [phone] Ghazal Best LCSW [address] [place], [place] [id number] 11/30/2023 8:40 AM EDT Nurse Only Ancillary 1st Floor, [address] [place] [address] [place], Nurse 21 [facility] [place] [address] 12/27/2023 9:00 AM EDT Office Visit Psychiatry, [place] 21 [facility] [place] [address] Siomara Cole CRNP 200 [facility] [place] [address] 12/29/2023 10:13 AM EDT Hospital Encounter OR [facility], Operating Room, [facility] - 4th Floor [address] [facility] [place] [address] Cristiano Alaniz, DO [address] [place] [address] 12/29/2023 10:13 AM EDT - 12/29/2023 10:56 AM EDT Surgery OR [facility], Operating Room, [facility] - 4th Floor [address] [address] Cristiano Alaniz, DO [address] [place] [address] COLONOSCOPY FLEXIBLE PROXIMAL DIAGNOSTIC 01/16/2024 12:00 PM EDT Office Visit [facility], [place] 21 [facility] [place] [phone] Sarah Saavedra PA-C 21 [facility] [place] [address] 02/02/2024 10:40 AM EDT Office Visit [facility] [place] [address] [place] [address] Traci Ricardo MD 400 [facility] [place] [address] 03/01/2024 11:20 AM EDT Office Visit Neurology [facility] 200 [facility] [place] [address] Maureen Bowie MD 200 [facility] [place] [address] 03/05/2024 9:30 AM EDT Office Visit [facility] [place] [address] [place] [address] Devon Damon PA-C [address] [place] [address] Scheduled Procedures Name Priority Associated Diagnoses Date/Ti me COLONOSCOPY FLEXIBLE PROXIMAL DIAGNOSTIC RLQ abdominal pain Constipation, unspecified constipation type Abnormal CT of the abdomen 12/29/2023 10:13 AM EDT Health Maintenance Due Date Last Done Comments DXA Scan 07/28/2024 07/28/2021 Diabetes Screening 11/05/2026 11/06/2023, 0 11/02/2023, 10/29/2023, Additional history exists DTaP,Tdap,and Td Vaccines (8 [...] this encounter Medical Devices Implanted Type Area Psychological Tests Sales Agent Device Identifier Shelf Expiration Date Model / Serial / Lot Plate Small Mtpj - [id number] Implanted:Qty: 1 on 11/15/2017 by Cristobal Calvillo MD at OR [facility] Left: Foot [id number] / / Screw Locking 2.7x14mm - [id number] Implanted:Qty: 1 on 11/15/2017 by Cristobal Calvillo MD at OR [facility] Left: Foot / / 2.7 X 16mm Locking Screw Implanted:Qty: 2 on 11/15/2017 by Cristobal Calvillo MD at OR [facility] Left: Foot [employer] [id number] / / 2.7 X 20 Locking Screw Implanted:Qty: 1 on 11/15/2017 by Cristobal Calvillo MD at OR [facility] Left: Foot [employer] [id number] / / 2.7 X 18mm Locking Screw Implanted:Qty: 1 on 11/15/2017 by Cristobal Calvillo MD at OR [facility] Left: Foot [employer] [id number] / / Screw Locking 2.7x10mm - [id number] Implanted:Qty: 1 on 11/15/2017 by Cristobal Calvillo MD at OR [facility] Left: Foot [employer] [id number] / / 4.0mm X 44 Mm Compression Screw Implanted:Qty: 1 on 10/09/2018 by Bao Hernández MD at OR [facility] Left: Foot AR-[id number] H / / Description:Implant from set 2.5x30 Compression Screw Implanted:Qty: 1 on 10/09/2018 by Bao Hernández MD at OR [facility] Left: Foot [employer] AR-8725-30 H / / Screw [employer] 2.4whx31tc - [id number] Implanted:Qty: 2 on 02/01/2022 by Bao Hernández MD at OR [facility] Right: Toe [employer] 1486-1014 / / Plate Mtpj - [id number] Implanted:Qty: 1 on 02/01/2022 by Bao Hernández MD at OR [facility] Right: Foot [employer] [id number] / / Screw Locking 2.7x10mm - [id number] Implanted:Qty: 2 on 02/01/2022 by Bao Hernández MD at OR [facility] Right: Foot [employer] [id number] / / Screw Locking 2.7x12mm - [id number] Implanted:Qty: 3 on 02/01/2022 by Bao Hernández MD at OR [facility] Right: Foot [employer] [id number] / / Screw Locking 2.7x14mm - [id number] Implanted:Qty: 1 on 02/01/2022 by Bao Hernández MD at OR [facility] Right: Foot [employer] 2140-2978 / / Screw [employer] 2.5jke48sv - [id number] Implanted:Qty: 1 on 02/01/2022 by Bao Hernández MD at OR [facility] Right: Toe [employer] [id number] / / Port Implant W/8f Poly Cath - [id number] Implanted:Qty: 1 on 06/02/2022 by Lawrence Cat DO at OR [facility] Right: Chest CR BARD : PERIPHERAL VASCULAR [id number] 05/12/2023 [id number] / / [id number] documented as of this encounter Visit Diagnoses Diagnosis Urinary tract infection associated with catheterization of urinary tract, unspecified indwelling urinary catheter type, subsequent encounter- Primary Prediabetes Other abnormal glucose Hypoglycemia Hypoglycemia, unspecified Bladder spasm Other specified disorders of bladder S/P gastric bypass Bariatric surgery status RLQ abdominal pain Abdominal pain, right lower quadrant Constipation, unspecified constipation type Abnormal CT of the abdomen Nonspecific (abnormal) findings on radiological and other examination of abdominal area, including retroperitoneum documented in this encounter Advance Directives Documents on File Type Date Recorded 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
--- OUTSIDE RECORDS SUMMARY | 2023-11-11 06:51 | External Medical Summary | Summary of Care ---
Author Name Unknown Organization [facility] Address [address] [place] [address] Phone [phone] Care Team Providers Care Geek Squad Manager Name Role Phone Sarah Saavedra PA-C Primary Care Provider [phone] Reason for Visit * Reason Comments Abdominal Pain * Auth/Cert Specialty Diagnoses / Procedures Referred By Lauro t Referred To Contact [facility] [address] [place] [address] Phone: [phone] Emergency Medicine [facility] [address] [place] [address] Referral ID Status Reason Start Date Expiration Date Visits Re quested Visits Authorized [id number] Encounter Details Date Type Department Care Team (Late st Contact Info) Description 11/06/2023 7:39 AM EDT - 11/06/2023 10:05 AM EDT Emergency [facility] ([facility] [address] [place] [address] Mahnaz Ojeda MD [address] [place] [address] Urinary tract infection associated with catheterization of urinary tract, unspecified indwelling urinary catheter type, initial encounter (HCC) (Primary Dx) Discharge Disposition: Home - Self [...] said itching Latex Itching 09/26/2013 Linezolid 10/23/2014 Adeline Other (Please comment) High 12/29/2014 Became unresponsive [...] as of this encounter (statuses as of 11/06/2023) Medications Medication Sig Dispensed Refills Start Date End Date Status docusate sodium (COLACE) 100 MG Capsule Take 1 Cap by mouth 2 times a day. 68 Cap 8 Active Cymbalta 60 MG Oral Capsule Delayed Release Particles Take 1 Capsule by mouth in the morning. Active calcium CARBonate (TUMS E-X) 750 MG chewable tablet Take 1 Tab by mouth 2 times a day as needed for Heartburn. 90 Tab 0 Active Polyethylene Glycol 3350 17 GM/SCOOP Oral Powder (MiraLax)Indicatio ns:Other constipation Take 17 g by mouth in the morning. Dissolve one heaping tablespoon in 8 ounces of water or juice.. 225 g 3 3 Active Acetaminophen 500 MG Oral Tablet Take 2 Tablets by mouth every 6 hours. Active Oxybutynin Chloride 5 MG Oral Tablet (Ditropan) TAKE 1 TABLET BY MOUTH EVERY 8 HOURS NEEDED FOR BLADDER SPASMS 90 Tablet 6 3 Active Tolterodine Tartrate ER 2 MG Oral Capsule Extended Release 24 Hour (Detrol LA) TAKE ONE CAPSULE BY MOUTH ONCE DAILY IN THE MORNING 30 Capsule 6 3 Active Ramelteon 8 MG Oral Tablet Take 1 Tablet by mouth at bedtime. 3 Active Lurasidone HCl 40 MG Oral Tablet (Latuda) Take 1 Tablet by mouth every evening. With a meal 3 Active Topiramate 50 MG Oral Tablet (topAMAX) Take 1 Tablet by mouth in the morning and 1 Tablet before bedtime. Active Cetirizine HCl 10 MG Oral Tablet (ZyrTEC)Indication s:Seasonal allergies Take 1 Tablet by mouth in the morning. 90 Tablet 3 3 Active Promethazine HCl 25 MG Oral Tablet (Phenergan)Indicat ions:Nausea Take 1 Tablet by mouth every 6 hours as needed for Nausea. 30 Tablet 1 3 Active ZOLMitriptan 5 MG Oral Tablet (Zomig) One at onset migraine may repeat in 2 hours maximum 2 doses in 24 hours 10 Tablet 5 3 Active Additional Information Patient not taking.Reported on 10/31/2023 Albuterol Sulfate HFA 108 (90 Base) MCG/ACT Inhalation Aerosol SolutionIndication s:Wheezing INHALE 2 puffs BY MOUTH EVERY 4 HOURS NEEDED FOR wheezing 8.5 g 1 4 Active Additional Information Patient not taking.Reported on 10/31/2023 Baclofen 20 MG Oral Tablet TAKE 1 TABLET BY MOUTH IN THE MORNING, NOON, EVENING AND BEDTIME 360 Tablet 4 Active Botox 100 UNIT Injection Solution Reconstituted (botulinum toxin type a) Inject 300 units intramuscularly into dytonic areas as well as head and neck for migraines every 3 months 3 Each 3 4 Active Apixaban 5 MG Oral Tablet (Eliquis) Take 1 Tablet by mouth in the morning and 1 Tablet before bedtime. 180 Tablet 2 4 Active Diclofenac Sodium 1 % External Gel (Voltaren)Indicati ons:Chronic pain of left knee Apply 4 g topically to affected area 4 times a day as needed for Pain. 100 g 4 Active Naloxone HCl 4 MG/0.1ML Nasal Liquid (Narcan Nasal) Administer 1 spray into 1 nostril for suspected opioid overdose. Seek immediate medical attention. [email or web address]/[email or web address]?v=v26cDa [email or web address] 1 Each 3 4 Active Additional Information Patient not taking.Reported on 10/06/2023 Cyclobenzaprine HCl 10 MG Oral Tablet (Flexeril) Take 1 Tablet by mouth in the morning and 1 Tablet at noon and 1 Tablet before bedtime. 4 Active hydrOXYzine HCl 50 MG Oral Tablet Take 1 Tablet by mouth 3 times a day as needed. 4 Active diphenhydrAMINE-Zi nc Acetate 2-0.1 % External Cream (Benadryl Extra Strength) Apply topically to affected area 4 times a day as needed for Itching. 30 g 1 4 Active Additional Information Patient not taking.Reported on 10/31/2023 Ipratropium-Albute rol 0.5-2.5 (3) MG/3ML Inhalation Solution (Duoneb)Indication s:Asthma in remission,COVID-19 virus infection Inhale 3 mL via nebulizer every 6 hours as needed for Shortness of Breath or Wheezing. 360 mL 1 4 Active Additional Information Patient not taking.Reported on 10/31/2023 Pantoprazole Sodium 40 MG Oral Tablet Delayed Release (Protonix)Indicati ons:Abdominal pain, generalized TAKE 1 TABLET BY MOUTH IN THE MORNING & TAKE 1 TABLET IN THE EVENING 180 Tablet 1 4 Active traZODone HCl 100 MG Oral Tablet (Desyrel) TAKE ONE TABLET BY MOUTH AT BEDTIME DIRECTED 4 Active Clotrimazole 1 % External Cream (Lotrimin) Apply topically to affected area 2 times a day. Apply to abdominal crease, apply ONE Time per day x 14 days then stop 15 g 1 4 Active Additional Information Patient not taking.Reported on 10/31/2023 Famotidine 20 MG Oral Tablet (Pepcid)Indication s:Gastroesophageal reflux disease without esophagitis Take 1 Tablet by mouth daily as needed for Heartburn. 90 Tablet 1 4 Active Prochlorperazine Maleate 10 MG Oral Tablet (Compazine)Indicat ions:Nausea Take 1 Tablet by mouth every 6 hours as needed for Nausea. 30 Tablet 2 4 Active Ajovy 225 MG/1.5ML Subcutaneous Solution Prefilled Syringe (Synfor[employer].-vfrm ) Inject 1.5 mL under the skin every month. 1.5 mL 3 4 Active DULoxetine HCl 30 MG Oral Capsule Delayed Release Particles (Cymbalta) Take 1 Capsule by mouth in the morning. Active Ubrelvy 50 MG Oral Tablet (Ubrogepant) Take 1 tablet at onset of migraine and may repeat in 2 hours if needed. Do not exceed 2 tablets in 24 hours. 10 Tablet 5 4 Active Additional Information Patient not taking.Reported on 10/31/2023 diazePAM 2 MG Oral Tablet (Valium)Indication s:Spastic diplegic cerebral palsy (HCC) 1 Three times a day, may cause sedation 90 Tablet 1 4 Active Fluconazole 150 MG Oral Tablet (Diflucan)Indicati ons:Yeast vaginitis Take 1 Tablet by mouth every 3 days. 3 Tablet 4 Active Linzess 145 MCG Oral Capsule (linaCLOtide)Indic ations:Constipatio n, unspecified constipation type Take 1 Capsule by mouth daily before breakfast. 30 Capsule 11 4 Active Phenazopyridine HCl 200 MG Oral Tablet (Pyridium) Take 1 Tablet by mouth every 8 hours as needed. For pain. 4 Active Ondansetron HCl 4 MG Oral TabletIndications: Nausea Take 1 Tablet by mouth every 8 hours as needed for Nausea or Vomiting. 30 Tablet 1 4 Active Sucralfate 1 GM Oral Tablet (Carafate)Indicati ons:Epigastric pain Take 1 Tablet by mouth 4 times a day before meals and at bedtime. half an hour before meals and at bedtime 120 Tablet 4 Active oxyCODONE-Acetamin ophen 5-325 MG Oral Tablet (Percocet) Take 1 Tablet by mouth every 6 hours as needed for Pain, Severe (Pain). Skip two Tylenol# 3 tablet if taking Oxycodone. 2 Tablet 4 Active Acetaminophen-Code ine 300-30 MG Oral TabletIndications: Cervicalgia,Lumbar radicular pain Take 1 Tablet by mouth 3 times a day as needed for Pain, Severe. On Physical Therapy days may take one extra tablet as needed for severe pain. Do not start before November 08, 2023. 23 Tablet 4 Active Terconazole 0.8 % Vaginal CreamIndications:Y east vaginitis Administer 1 Applicator into the vagina at bedtime for 3 days. For 3 days. 20 g 4 11/07/19 24 Active Amoxicillin-Pot Clavulanate 875-125 MG Oral Tablet (Augmentin) Take 1 Tablet by mouth in the morning and 1 Tablet before bedtime. Do all this for 10 days. 20 Tablet 4 11/06/19 24 Discontinu ed(Refill) Hospital, Clinic, or Other Facility Administered Medication Ordered Dose Route Frequency Start Date End Date Status vitamin b-12 (Cyanocobalamin) inj 1,000 mcgIndications:S/P gastric bypass 1000 mcg IM [id number] 08/30/2023 06/03/2026 Active documented as of this encounter (statuses as of 11/06/2023) Active Problems Problem Noted Date Diagnosed Date [...] episo de depressed, severe, w/psychotic features 05/03/2022 USP current use of anticoagulant therapy 0 08/28/2021 Recurrent chest pain 07/31/2021 Last Assessment & Plan: Referred to cardiology for workup--seen in Jul. [place] atypical for ACS. ED workup neg for [...] & Plan: [place] [facility] [place] [facility] [place]. C/o LE weakness and acute/chronic low back pain. Lumbar spine [place] performed [place] [facility] [place] not available for review Pt denies receiving steroid injections D/C IV dilaudid. Resume PO hydromorphone 4mg in setting of subjected acute on chronic low back pain, foot pain and now chest pain Encourage use of tylenol 1000mg or ibuprofen 600mg PRN Chronic suprapubic catheter 05/31/2014 Overview: Pl[place]26 [place] [facility] [place] for [...] disc without myelopathy 03/03/2006 Overview: Rigth L5-S1. [place] injections. Did not help. For [place] [facility] [place]. Had subsequent MRSA [...] 01/23: [place] Dr. Mock (spine surgeon) [place] [facility] [place]: lumbar spinal surgery [...] as of this encounter (statuses as of 11/06/2023) Resolved Problems Problem Noted Date Diagnosed Date [...] a contraindication to starting her on opioids." [facility] discharge 10/04/15: patient exhibiting behavior of narcotic dependency (requesting escalation of IV dilaudid) Weakness of both upper extremities 08/21/2015 12/12/2019 Generalized weakness 03/01/2015 018 Chronic back pain 03/01/2015 03/03/2022 Paraplegia 02/19/2015 03/25/2016 MEDICATION USE AGREEMENT 06/07/2014 Overview: Pain contract established with [facility] ED 05/26 - give valium 5 [...] 01/04/2023 Overview: Cysto neg 05/21/13. [place] [facility] [place] Miri Dixon BILLY as of 09/26/2013. Resolved s/p laminectomy L4-S1 October 2013 @ [place] by Dr. Heard. Last Assessment & Plan: [...] wellbutrin 03/27: followed by Mauricio THOMPSON @ [facility] ADVANCE DIRECTIVE INFORMATION 11/17/2004 08/06/2022 Overview: No, Advance Directive brochure offered , patient declined. Allergic rhinitis 11/24/2001 11/30/2018 Overview: zyrtec Fatty liver 08/06/2022 Chronic sinusitis 11/30/2018 Overview: frequent documented as of this encounter (statuses as of 11/06/2023) Immunizations Name Administration Dates Next Due COVID-19 mRNA, LNP-s, No Pre serve, 2-Dose Series (Stylyt) 06/25/2021,12/13/2020,11/15/2020 COVID-19, MRNA-LNP, 23-24, P F, 30 MCG/0.3 mL, 12 YRS AND ABOVE, IM ([facility] 03/29/2023 Covid-19, Mrna, Lnp-s, Pf, B ivalent, 30 Mcg, IM, 12 yrs and above (Pfizer) 06/17/2022 H1N1 2009 Influenza, IM 05/27/2009 Pneumococcal Conjugate Vacci ne, 20-valent ([id number]) 12/15/2021 Pneumococcal Polysaccharide PPV23 (Pneumovax) 05/01/2008 Seasonal [...] Sign Reading Time Taken Comments Blood Pressure 157/96 11/06/2023 8:50 AM EDT Pulse 96 11/06/2023 8:50 AM EDT Temperature 35.9 C (96.6 F) 11/06/2023 7:41 AM ED T Respiratory Rate 16 11/06/2023 8:50 AM EDT Oxygen Saturation 100% 11/06/2023 7:41 AM EDT Inhaled Oxygen Concentration - - Weight 95.7 kg (211 lb) 11/06/2023 7:41 AM EDT Height 152.4 cm (5') 11/06/2023 7:41 AM EDT Body Mass Index 41.21 11/06/2023 7:41 AM EDT documented in this encounter Functional [...] this encounter Discharge Instructions * Discharge Instructions* Tri Menard PA-C - 11/06/2023 9:47 AM EDT Rest and remain well hydrated. Continue all at-home medications, no changes have been made. Take the Augmentin 2 times a day for a full 10 days. Take this medication with food and a daily probiotic. Use your pain medication, which is available to you at your home, as prescribed. Follow up with your PCP in 2-3 days. Keep your scheduled appointment with Urology. Return to the Emergency Deparment if symptoms return, persist, or worsen. documented in this encounter ED Notes * Mahnaz Ojeda MD - 11/06/2023 7:41 AM EDT HISTORY OF PRESENT ILLNESS Gricel Mancini is a 38 year old female who presents to the ED for evaluation of Abdominal Pain. The patient was seen at 11/06/23 0740. 38-year-old female with past medical history significant for spina bifida, GERD, PTSD presents to the emergency department complaining of suprapubic pain. Patient believes she may have a urinary tract infection. States that her suprapubic catheter was changed 6 days ago. Associated symptoms include pelvic pain and left flank pain Onset of symptoms was several days ago. No aggravating or alleviating factors. Patient states that she took some Tylenol at 4:30 a.m.. Denies associated fever, chills, nausea, vomiting. Review of Systems Constitutional: Negative for chills, diaphoresis, fatigue and fever. Respiratory: Negative for cough and shortness of breath. Cardiovascular: Negative for chest pain and palpitations. Gastrointestinal: Positive for abdominal pain. Negative for diarrhea and nausea. Genitourinary: Positive for flank pain. Negative for difficulty urinating, dysuria, frequency and urgency. Skin: Negative for rash. Neurological: Negative for dizziness and headaches. The patient's allergies, past history, and medications were reviewed. PHYSICAL EXAM Initial Vitals (see all): BP 147/90 | Pulse 86 | Resp 16 | Temp 96.6 | O2 100 %, Room Air, None | Weight 95.71 kg | Height 152.4 cm | BMI 41.21 kg/m2 Initial Pain Assessment (see all): 7 (severe pain)/10, location: lower abd ([facility] Adult Scale 0-10) Physical Exam Vitals and nursing note reviewed. Constitutional: General: She is awake. Appearance: She is not ill-appearing, toxic-appearing or diaphoretic. Cardiovascular: Rate and Rhythm: Normal rate and regular rhythm. Heart sounds: Normal heart sounds. Pulmonary: Effort: Pulmonary effort is normal. Breath sounds: Normal breath sounds and air entry. Abdominal: General: Bowel sounds are normal. Palpations: Abdomen is soft. Tenderness: There is abdominal tenderness in the suprapubic area. There is no right CVA tenderness,left CVA tenderness, guarding or rebound. Comments: Insertion site of suprapubic catheter without erythema, edema, significant drainage. Musculoskeletal: Thoracic back: Normal. Lumbar back: Normal. Skin: General: Skin is warm and dry. Capillary Refill: Capillary refill takes less than 2 seconds. Neurological: Mental Status: She is alert and oriented to person, place, and time. Psychiatric: Behavior: Behavior is cooperative. PROCEDURES AND TREATMENTS ED Orders | ED Results MEDICAL DECISION MAKING Nursing notes and vital signs were reviewed. ED Course as of 11/06/23 1851 Sun November 06, 2023 0745 ED attending physician note: Patient presents with "UTI "symptoms. She has bladder and left flank pain since she was last seen here apparently recently. Chills. She has suprapubic catheter in place. On exam patient is alert, moderate distress, has somewhat pale complexion. Lungs are clear withno respiratory distress. No midline point tenderness along the back, no step-offs, normal alignment, normal range of motion, no paraspinous spasm. No lower extremity edema. Suprapubic catheter in place with no surrounding erythema. Small amount of mucus drainage noted. Urine is slightly cloudy and appears to be draining well. Some tenderness of the suprapubic area. Bowel sounds are normal. Mahnaz Ojeda MD 11/06/2023 7:53 AM [] [id number] Chart review: + urine culture: 5/ Enterococcus + Corynebacterium Ampicillin susceptible. Urine culture: 4/6 Klebsiella + Corynebacterium Susceptible to all but Macrobid. [JT] 3509 Reviewed results and recommendations with the patient. Augmentin twice daily for 7 days. No evidence of pyelonephritis or kidney stone. Follow up with Urology as scheduled. Educated on strict return to ED instructions. Understanding verbalized by patient. [JT] ED Course User Index [DH] Mahnaz Ojeda MD [JT] Tri Menard PA-C Differential Diagnoses Based on my history, physical exam, and evaluation, the differential includes, but is not limited, to the following diagnoses: UTI, pyelonephritis, flank pain, kidney stone. Amount and/or Complexity of Data Reviewed Labs: ordered. Radiology: ordered. Risk Prescription drug management. Clinical Impressions Urinary tract infection associated with catheterization of urinary tract, unspecified indwelling urinary catheter type, initial encounter ([facility]) Disposition Discharged. The patient's condition at disposition was: stable. - reviewed results of lab work and ultrasound at today's ED visit. - discussed treatment options. - encourage rest and hydration and follow up with PCP in 2-3 days. - advised patient to keep scheduled appointment with the urologist. -Educated on strict return to ED instructions. Understanding verbalized by patient. Discharge Medications Disp Refills Start End Amoxicillin-Pot Clavulanate 875-125 MG Oral Tablet (Augmentin) (Discontinued) 20 Tablet 0 Sig - Route: Take 1 Tablet by mouth in the morning and 1 Tablet before bedtime. Do all this for 10 days. - Oral Class: ePrescribing Reason for Discontinue: Refill Renewals Renewal requests to authorizing provider (Tri Menard PA-C) <b>prohibited</b> -Educated on risks, benefits, side effects, and administration of medications. - Daily probiotic while taking medication - Take with food. Mahnaz Ojeda MD was the attending physician who supervised the care of this patient. Tri Menard PA-C ATTENDING ATTESTATION I have discussed the patient's management with the provider listed above and agree with the note, findings, and plan of care. I personally made/approved the management plan and take responsibility for patient management. I discussed management of the patient with professional shopper. We discussed evaluation plan and disposition. The result of our discussion was see attending note . Mahnaz Ojeda MD 11/06/2023 6:51 PM * Veena Barron RN - 11/06/2023 7:40 AM EDT Pt arrives via [facility] from home. Pt has 7/10 lower abdominal pain. Pt concerned for UTI. documented in this encounter Miscellaneous Notes * ED Admissions Clinician Note - Rosalba Wolff RN - 11/06/2023 10:03 AM EDT Pt discharge instructions, prescription and follow up reviewed with pt and pt verbalized understanding. Pt riding home with her sister. * Pt Handout (on AVS) - Tri Menard PA-C - 11/06/2023 9:47 AM EDT Images from the original note were not included. [id number] Catheter-Linked Urinary Tract Infections A catheter-linked urinary tract infection (CAUTI) is an infection of the urinary tract. It's causedby bacteria that get into the urinary tract when a urinary catheter is used. This is a tube that?s placed into the bladder to drain urine. The urinary tract This tract includes the kidneys, ureters, bladder, and urethra. The kidneys filter blood and make urine. The ureters carry urine from the kidneys to the bladder. The bladder stores urine. The urethracarries urine from the bladder to the outside of the body. What is a urinary catheter? A urinary catheter is a thin, flexible tube. It's placed in the bladder to drain urine. Urine flowsthrough the tube into a collecting bag outside of the body. There are different types of urinary catheters. The most common type is an indwelling catheter. This is also known as a urethral catheter. This is because it?s placed into the bladder through the urethra. It's also called a Rayo catheter. A small balloon keeps the catheter in place inside the bladder. Why is a urinary catheter needed? A urinary catheter is needed for any of these: You can't move around for a long time after surgery or injury. You have a surgery that requires you to be under anesthesia for a long time. You have a blockage in your urinary system. Your healthcare provider needs to precisely measure the amount of urine you pass. The function of your kidneys and bladder is being tested. In most cases, the urinary catheter is short term. You'll need it only until the problem that needsit is taken care of. How does a CAUTI develop? Bacteria can get into the urinary tract as the catheter is put into the urethra. Bacteria can also get into the urinary tract while the catheter is in place. The common bacteria that cause a CAUTI are ones that live in the intestine. These bacteria don?t normally cause problems in the intestine. But when they get into the urinary tract, an infection can occur. Why is a CAUTI of concern? Left untreated, a CAUTI can lead to health problems. These problems may include infections of the bladder, prostate, and kidney. A CAUTI can keep you in the hospital longer. If the infection is not treated in time, you may have serious health problems. What are the symptoms of a CAUTI? Tell a healthcare provider or seek medical care right away if you or a loved one has any of these symptoms: A burning feeling, pressure, or pain in your lower belly (abdomen) Fever or chills Urine in the collecting bag that is cloudy or bloody (pink or red) Burning feeling in the urethra or genital area Aching in your back (by the kidneys) Nausea and vomiting Confusion, sleepiness, or a change in behavior (mainly affects older people) Sometimes you may not have any symptoms. But you may still have a CAUTI. How is a CAUTI diagnosed? Your healthcare provider will order tests if you have symptoms of a CAUTI. These include a urine test and blood tests. How is a CAUTI treated? Treatment may involve any of these: Antibiotics. Your healthcare provider will likely prescribe antibiotics if you have symptoms. Beaware that if you don?t have symptoms, you may not be given antibiotics. This is to prevent an increase in bacteria that can?t be killed by certain antibiotics. Removing the catheter. The catheter will be taken out when your healthcare provider decides it?sno longer needed. This often helps stop the infection. Changing the catheter. If you still need a catheter, the old one will be taken out. A new one will be put in. This may help stop the infection. How do hospital and long-term facility staff prevent CAUTIs? To keep patients from getting a CAUTI, staff members take these steps: Prescribe a catheter only when it?s needed. It's taken out as soon as it?s no longer needed. Wash their hands or use an alcohol-based hand cleanser before doing catheter care. Use a clean (sterile) method when placing the catheter into the urinary tract. To do that, before putting the catheter in, the caregiver washes their hands with soap and water. Then they put on sterile gloves. A sterile catheter kit that has cleansers is used to cleanse the genital area. Hang the bag lower than your bladder. This helps stop urine from flowing back into your bladder. Check that the bag is emptied regularly. Do clean intermittent catheterization. This means a catheter is put in so you can urinate. It's then taken out right away. It may be done several times a day. What you can do as a patient to prevent a CAUTI You can help prevent a CAUTI by doing the following: Every day, ask your healthcare provider how long you need to have the catheter. The longer you have a catheter, the higher your chance of getting a CAUTI. Ask a caregiver to clean their hands and put on gloves before touching your catheter. If you?ve been taught how to care for your catheter, wash your hands before and after each session. Check that your bag is lower than your bladder. If it?s not, tell your caregiver. Don?t disconnect the catheter and drain tube. Doing so lets germs get into the catheter. Cleaning the genital and perineal areas is very important. It helps decrease bacteria around thecatheter. Ask your healthcare provider what you should use and how often to clean these areas. If you are discharged with an indwelling catheter Before you leave the hospital, make sure you know how to care for your catheter at home. Ask your healthcare provider how long you need the catheter. Also ask if you need to make a follow-up appointment to have the catheter taken out. Always use a clean (sterile) method when caring for your catheter. Wash your hands before and after doing any catheter care. Call your healthcare provider or seek medical care right away if you develop symptoms of a CAUTI(see above). Last Reviewed Date: 03/13/202219993506-6662 [employer]. All rights reserved. This information is not intended as a substitute for professional medical care. Always follow your healthcare professional's instructions. documented in this encounter Plan of Treatment Upcoming Encounters Date Type Department Care Team (Late st Contact Info) Description 11/24/2023 9:00 AM EDT Therapy Psychology, [place] [address] [place] [phone] Ghazal Best LCSW [address] [address] 11/30/2023 8:40 AM EDT Nurse Only Ancillary 1st Floor, [place] [phone] Emma, Nurse Fp [address] [place] [address] 12/27/2023 9:00 AM EDT Office Visit Psychiatry, [place] [address] [phone] [place], [facility]azcano [address] [facility] [address] 12/29/2023 10:13 AM EDT Hospital Encounter OR [facility], Operating Room, [facility] - 4th Floor [address] [place] [place] [address] Cristiano Alaniz, DO [address] [place] [place] [address] 12/29/2023 10:13 AM EDT - 12/29/2023 10:56 AM EDT Surgery OR [facility], Operating Room, [facility] - 4th Floor [address] [place] [place] [address] Cristiano Alaniz, DO [address] [place] [address] COLONOSCOPY FLEXIBLE PROXIMAL DIAGNOSTIC 01/16/2024 12:00 PM EDT Office Visit Family Practice, [place] [address] [phone] Sarah Saavedra PA-C [address] [address] 02/02/2024 10:40 AM EDT Office Visit Interventional Pain Ctr Angelia Ayala [address] [address] [facility]ardo [facility] [address] 03/01/2024 11:20 AM EDT Office Visit Neurology [employer] 200 [facility] [place] [address] Maureen Bowie MD 200 [facility] [place] [address] 03/05/2024 9:30 AM EDT Office Visit Interventional Pain Ctr [place] [address] [place] [address] Devon Damon PA-C [address] [place] [address] Pending Results Name Type Priority Associated Diagnoses Date /Time CULTURE, URINE, QUANTITATIVE Lab STAT 11/06/2023 8:01 AM EDT Scheduled Orders Name Type Priority Associated Diagnoses Orde r Schedule CULTURE, URINE, QUANTITATIVE Lab STAT Perform Now for 1 Occurrences starting 11/06/2023 until 11/06/2023 Scheduled Procedures Name Priority Associated Diagnoses Date/Ti [...] this encounter Medical Devices Implanted Type Area Hat And Cap Opener Device Identifier Shelf Expiration Date Model / Serial / Lot Plate Small Mtpj - [id number] Implanted:Qty: 1 on 11/15/2017 by Cristobal Calvillo MD at [facility] [place] Left: Foot 2214-0388 / / Screw Locking 2.7x14mm - [id number] Implanted:Qty: 1 on 11/15/2017 by Cristobal Calvillo MD at [facility] [place] Left: Foot [id number] / / 2.7 X 16mm Locking Screw Implanted:Qty: 2 on 11/15/2017 by Cristobal Calvillo MD at [facility] [place] Left: Foot [employer] [id number] / / 2.7 X 20 Locking Screw Implanted:Qty: 1 on 11/15/2017 by Cristobal Calvillo MD at [facility] [place] Left: Foot [employer] [id number] / / 2.7 X 18mm Locking Screw Implanted:Qty: 1 on 11/15/2017 by Cristobal Calvillo MD at [facility] [place] Left: Foot [employer] 5699-5875 / / Screw Locking 2.7x10mm - [id number] Implanted:Qty: 1 on 11/15/2017 by Cristobal Calvillo MD at [facility] [place] Left: Foot [employer] [id number] / / 4.0mm X 44 Mm Compression Screw Implanted:Qty: 1 on 10/09/2018 by Bao Hernández MD at [facility] [place] Left: Foot AR-8740-44 H / / Description:Implant from set 2.5x30 Compression Screw Implanted:Qty: 1 on 10/09/2018 by Bao Hernández MD at [facility] [place] Left: Foot [employer] AR-8725-30 H / / Screw [employer] 2.7tyg98mi - [id number] Implanted:Qty: 2 on 02/01/2022 by Bao Hernández MD at [facility] [place] Right: Toe [employer] 1966-2809 / / Plate Mtpj - [id number] Implanted:Qty: 1 on 02/01/2022 by Bao Hernández MD at [facility] [place] Right: Foot [employer] [id number] / / Screw Locking 2.7x10mm - [id number] Implanted:Qty: 2 on 02/01/2022 by Bao Hernández MD at [facility] [place] Right: Foot [employer] 6904-6393 / / Screw Locking 2.7x12mm - [id number] Implanted:Qty: 3 on 02/01/2022 by Bao Hernández MD at [facility] [place] Right: Foot [employer] 1363-4574 / / Screw Locking 2.7x14mm - [id number] Implanted:Qty: 1 on 02/01/2022 by Bao Hernández MD at [facility] [place] Right: Foot [employer] / / Screw [employer] 2.9eop37un - [id number] Implanted:Qty: 1 on 02/01/2022 by Bao Hernández MD at [facility] [place] Right: Toe [employer] [id number] / / Port Implant W/8f Poly Cath - [id number] Implanted:Qty: 1 on 06/02/2022 by Lawrence Cat DO at OR [facility] Right: Chest CR BARD : PERIPHERAL VASCULAR [id number] 05/12/2023 [id number] / / [id number] documented as of this encounter Procedures Procedure Name Priority Date/Time Associated Diagnosis Comments US RENAL STAT 11/06/2023 9:30 AM EDT DIFFERENTIAL, AUTOMATED STAT 11/06/2023 9:30 AM EDT CBC STAT 11/06/2023 9:30 AM EDT CBC STAT 11/06/2023 9:30 AM EDT COMPREHENSIVE METABOLIC PANEL STAT 11/06/2023 8:27 AM EDT MICROSCOPIC EXAM, URINE STAT 11/06/2023 8:01 AM EDT URINALYSIS, REFLEX TO MICROSCOPIC STAT 11/06/2023 8:01 AM EDT documented in this encounter Results * US RENAL (11/06/2023 9:30 AM EDT) Anatomical Region Laterality Modality Abdomen, Body Ultrasound 11/06/2023 9:07 AM EDT Impressions 11/06/2023 9:42 AM EDT IMPRESSION: Suprapubic catheter is noted within the bladder. Unremarkable evaluation of the kidneys. THIS DOCUMENT HAS BEEN ELECTRONICALLY SIGNED BY LOULOU CURRAN MD Narrative 11/06/2023 9:42 AM EDT PROCEDURE INFORMATION: Exam: US Retroperitoneal; Complete; Kidneys and Bladder Exam date and time: 11/06/2023 9:07 AM Age: 38 years old Clinical indication: Abdominal pain; Flank; Left; Additional info: Left flank pain TECHNIQUE: Imaging protocol: Real-time ultrasound of the retroperitoneum with image documentation. Complete exam focused on the kidneys and bladder. COMPARISON: US RENAL 09/25/2023 11:49 AM FINDINGS: Tubes, catheters and devices: Suprapubic catheter is noted within the bladder. Right kidney: The right kidney measures 8.9 x 4.2 x 4.7 cm. No evidence of hydronephrosis or stones. Left kidney: The left kidney measures 9.2 x 4.4 x 4.6 cm. No evidence of hydronephrosis or stones. Aorta: Aorta is not well-seen due to overlying bowel gas. Urinary bladder: Unremarkable. Procedure Note Loulou Curran MD - 11/06/2023 PROCEDURE INFORMATION: Exam: US Retroperitoneal; Complete; Kidneys and Bladder Exam date and time: 11/06/2023 9:07 AM Age: 38 years old Clinical indication: Abdominal pain; Flank; Left; Additional info: Leftflank pain TECHNIQUE: Imaging protocol: Real-time ultrasound of the retroperitoneum with image documentation. Complete exam focused on the kidneys and bladder. COMPARISON: US RENAL 09/25/2023 11:49 AM FINDINGS: Tubes, catheters and devices: Suprapubic catheter is noted within thebladder. Right kidney: The right kidney measures 8.9 x 4.2 x 4.7 cm. No evidence of hydronephrosis or stones. Left kidney: The left kidney measures 9.2 x 4.4 x 4.6 cm. No evidence of hydronephrosis or stones. Aorta: Aorta is not well-seen due to overlying bowel gas. Urinary bladder: Unremarkable. IMPRESSION IMPRESSION: Suprapubic catheter is noted within the bladder. Unremarkable evaluationof the kidneys. THIS DOCUMENT HAS BEEN ELECTRONICALLY SIGNED BY LOULOU CURRAN MD Tri Menard PA-C RAD ULTRASOUND * DIFFERENTIAL, AUTOMATED (11/06/2023 9:30 AM EDT) [facility] WBC 7.34 4.00 - 10.80 K/uL 11/06/2023 9:40 AM EDT LABORATORY [facility] Neutrophils % 64.8 40.0 - 75.0 % 11/06/2023 9:40 AM EDT LAB[facility]ATORY [facility] Lymphocytes % 24.9 18.0 - 42.0 % 11/06/2023 9:40 AM EDT LAB[facility]ORY [facility] Monocytes % 6.9 1.0 - 11.0 % 11/06/2023 9:40 AM EDT LAB[facility]ATORY [facility] Eosinophils % 2.0 0.0 - 6.0 % 11/06/2023 9:40 AM EDT LAB[facility]ATORY [facility] Basophils % 1.0 0.0 - 2.0 % 11/06/2023 9:40 AM EDT LABORATORY [facility] Immature Granulocytes % 0.4 0.0 - 2.0 % 11/06/2023 9:40 AM EDT LABORATORY [facility] Absolute Neutrophils 4.75 1.80 - 7.70 K/uL 11/06/2023 9:40 AM EDT LABORATORY [facility] Absolute Lymphocytes 1.83 1.00 - 4.80 K/ul 11/06/2023 9:40 AM EDT LABORATORY [facility] Absolute Monocytes 0.51 0.00 - 1.10 K/uL 11/06/2023 9:40 AM EDT LABORATORY [facility] Absolute Eosinophils 0.15 0.00 - 0.70 K/uL 11/06/2023 9:40 AM EDT LABORATORY [facility] Absolute Basophils 0.07 0.00 - 0.20 K/uL 11/06/2023 9:40 AM EDT LABORATORY [facility] Absolute Immature Granulocytes 0.03 0.00 - 0.20 K/uL 11/06/2023 9:40 AM EDT LABORATORY GL Blood Venous blood specimen / Unknown Venipuncture / Unknown 11/06/2023 9:30 AM EDT 11/06/2023 9:32 AM EDT Tri Menard PA-C LAB BLOOD ORDER DINH LABORATORY [facility] [address] [place] [address] * CBC (11/06/2023 9:30 AM EDT) WBC 7.34 4.00 - 10.80 K/uL 11/06/2023 9:40 AM EDT LABORATORY [facility] RBC 4.36 3.85 - 5.15 M/uL 11/06/2023 9:40 AM EDT LABORATORY [facility] HGB 13.2 12.0 - 15.3 g/dL 11/06/2023 9:40 AM EDT LABORATORY [facility] HCT 39.7 36.0 - 45.2 % 11/06/2023 9:40 AM EDT LABORATORY [facility] MCV 91.1 81.5 - 97.5 fL 11/06/2023 9:40 AM EDT LABORATORY [facility] MCH 30.3 27.0 - 34.0 pg 11/06/2023 9:40 AM EDT LABORATORY [facility] MCHC 33.2 32.0 - 36.0 g/dL 11/06/2023 9:40 AM EDT LABORATORY [facility] RDW 14.4 11.5 - 15.5 % 11/06/2023 9:40 AM EDT LABORATORY [facility] PLT 277 140 - 400 K/uL 11/06/2023 9:40 AM EDT LABORATORY [facility] MPV 9.5 6.6 - 11.1 fL 11/06/2023 9:40 AM EDT LABORATORY [facility] nRBCs 0 <=0 /100 WBCs 11/06/2023 9:40 AM EDT LABORATORY [facility] Blood Venous blood specimen / Unknown Venipuncture / Unknown 11/06/2023 9:30 AM EDT 11/06/2023 9:32 AM EDT Tri Menard PA-C LAB BLOOD ORDER DINH LABORATORY [facility] [address] [place] [address] * (ABNORMAL) COMPREHENSIVE METABOLIC PANEL (11/06/2023 8:27 AM EDT) BUN 10 6 - 20 mg/dL 11/06/2023 8:51 AM EDT LABORATORY [facility] Creatinine 0.6 0.5 - 1.0 mg/dL 11/06/2023 8:51 AM EDT LABORATORY [facility] Estimated Glomerular Filtration Rate >90 >=60 mL/min 11/06/2023 8:51 AM EDT LABORATORY [facility] Comment:eGFR is calculated b ased on the CKD-EPI 2020 equation Sodium 139 135 - 146 mmol/L 11/06/2023 8:51 AM EDT LABORATORY [facility] Potassium 4.5 3.5 - 5.1 mmol/L 11/06/2023 8:51 AM EDT LAB[facility]ATORY [facility] Chloride 108(H) 98 - 107 mmol/L 11/06/2023 8:51 AM EDT LAB[facility]ATORY [facility] CO2 18(L) 22 - 32 mmol/L 11/06/2023 8:51 AM EDT LAB[facility]ATORY [facility] Anion Gap 13 7 - 15 mmol/L 11/06/2023 8:51 AM EDT LAB[facility]ATORY [facility] Glucose 105 70 - 120 mg/dL 11/06/2023 8:51 AM EDT LABORATORY [facility] Albumin 3.5(L) 3.8 - 5.0 g/dL 11/06/2023 8:51 AM EDT LAB[facility]ATORY [facility] AST 26 10 - 35 U/L 11/06/2023 8:51 AM EDT LABORATORY [facility] Comment:Result may be falsel y elevated due to hemolysis. Alkaline Phosphatase 73 35 - 130 U/L 11/06/2023 8:51 AM EDT LABORATORY [facility] Bilirubin, Total 0.2 <=1.2 mg/dL 11/06/2023 8:51 AM EDT LABORATORY [facility] Calcium 9.1 8.4 - 10.2 mg/dL 11/06/2023 8:51 AM EDT LABORATORY [facility] Protein 6.4 6.0 - 8.3 g/dL 11/06/2023 8:51 AM EDT LABORATORY [facility] ALT 17 10 - 35 U/L 11/06/2023 8:51 AM EDT LABORATORY GL Blood Venous blood specimen / Unknown Venipuncture / Unknown 11/06/2023 8:27 AM EDT 11/06/2023 8:30 AM EDT Tri Menard PA-C LAB BLOOD ORDER DINH Performing Organization Address [facility] Co de Phone Number LABORATORY [address] [address] * (ABNORMAL) MICROSCOPIC EXAM, URINE (11/06/2023 8:01 AM EDT) RBC, Urine 6-9(A) 0 - 2 /HPF 11/06/2023 8:21 AM EDT LABORATORY GL WBC, Urine 20-29(A) 0 - 2 /HPF 11/06/2023 8:21 AM EDT LABORATORY GL Bacteria, Urine 51-100(A) 0 - 25 /HPF 11/06/2023 8:21 AM EDT LABORATORY GL WBC Clumps, Urine Present(A) None /HPF 11/06/2023 8:21 AM EDT LABORATORY [facility] Urine Non-blood Collection / Unknown 11/06/2023 8:01 AM EDT 11/06/2023 8:07 AM EDT Tri Menard PA-C LAB URINE ORDER DINH Performing Organization Address [facility] Co de Phone Number LABORATORY [address] [address] * (ABNORMAL) URINALYSIS, REFLEX TO MICROSCOPIC (11/06/2023 8:01 AM EDT) Color, Urine Yellow Light Yellow, Yellow, Dark Yellow 11/06/2023 8:12 AM EDT LABORATORY [facility] Clarity, Urine Clear Clear 11/06/2023 8:12 AM EDT LABORATORY GL Glucose, Urine Negative Negative mg/dL 11/06/2023 8:12 AM EDT LABORATORY GL Bilirubin, Urine Negative Negative 11/06/2023 8:12 AM EDT LABORATORY [facility] Ketone, Urine Negative Negative mg/dL 11/06/2023 8:12 AM EDT LABORATORY [facility] Specific [place], Urine 1.012 1.003 - 1.030 11/06/2023 8:12 AM EDT LABORATORY [facility] Blood, Urine Small(A) Negative 11/06/2023 8:12 AM EDT LABORATORY [facility] pH, Urine 7.5 5.0 - 7.5 Units 11/06/2023 8:12 AM EDT LABORATORY [facility] Protein, Urine 30(A) Negative mg/dL 11/06/2023 8:12 AM EDT LABORATORY [facility] Urobilinogen, Urine 0.2 0.2, 1.0 mg/dL 11/06/2023 8:12 AM EDT LABORATORY [facility] Nitrite, Urine Negative Negative 11/06/2023 8:12 AM EDT LABORATORY [facility] Esterase, Urine Moderate(A) Negative 11/06/2023 8:12 AM EDT LABORATORY [facility] Urine Non-blood Collection / Unknown 11/06/2023 8:01 AM EDT 11/06/2023 8:07 AM EDT Tri Menard PA-C LAB URINE ORDER DINH Performing Organization Address City/State/[facility] Co de Phone Number LABORATORY [address] [address] documented in this encounter Visit Diagnoses Diagnosis Urinary tract infection associated with catheterization of urinary tract, unspecified indwelling urinary catheter type, initial encounter ([facility])- Primary RLQ abdominal pain Abdominal pain, right lower quadrant Constipation, unspecified constipation type Abnormal CT of the abdomen Nonspecific (abnormal) findings on radiological and other examination of abdominal area, including retroperitoneum documented in this encounter Administered Medications Inactive Administered Medications - up to 3 most recent administrations Medication Order MAR Action Action Date Dose Rate Site ondansetron ODT (Zofran) tab 4 mg 4 mg, On Tongue, ONCE, On 11/06/23 at 0830, For 1 dose Given 11/06/2023 8:12 AM EDT 4 mg phenazopyridine (Pyridium) tab 100 mg 100 mg, Oral, ONCE, On 11/06/23 at 0830, For 1 dose Given 11/06/2023 8:11 AM EDT 100 mg documented in this encounter Active and Recently Administered Medications Times are shown in EDT. 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
--- OUTSIDE RECORDS SUMMARY | 2023-11-11 06:51 | External Medical Summary | Summary of Care ---
Author Name Unknown Organization [facility] Address [address] [place] [address] Phone [phone] Care Team Providers Care Information Receptionist Name Role Phone Sarah Saavedra PA-C Primary Care Provider [phone] Reason for Visit * Reason Onset Date Comments Test Results 11/08/2023 Encounter Details Date Type Department Care Team ([facility] st Contact Info) Description 11/08/2023 Telephone [facility] Emergency Department ([facility]) [address] [place] [address] Mahnaz Ojeda MD [address] [place], [place] [id number] Test Results Allergies Active Allergy Reactions Criticality Noted Date [...] said itching Latex Itching 09/26/2013 Linezolid 10/23/2014 [place] Other (Please comment) High 12/29/2014 Became unresponsive [...] opioid overdose. Seek immediate medical attention. [email or web address]://www.youtube. com/[email or web address]?v=[email or web address] AcI 1 Each 3 07/28/2023 Active Additional [...] Ajovy 225 MG/1.5ML Subcutaneous Solution Prefilled Syringe (Fremanezumab-[facility] ) Inject 1.5 mL under the skin [...] and at bedtime 120 Tablet 10/31/2023 Active oxyCODONE-Acetamin ophen 5-325 MG Oral Tablet (Percocet) Take 1 Tablet by mouth every 6 hours as needed for Pain, Severe (Pain). Skip two Tylenol# 3 tablet if taking Oxycodone. 2 Tablet 11/04/2023 Active Acetaminophen-Code ine 300-30 MG Oral TabletIndications: [...] Tablet before bedtime. 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 [place] atypical for ACS. ED workup neg for [...] & Plan: Primary reason for transfer from [facility] to [facility] rehab. C/o LE weakness and acute/chronic low back pain. Lumbar spine MRI reportedly performed @ [facility], not available for review Pt denies receiving steroid injections D/C IV dilaudid. Resume PO hydromorphone 4mg in setting of subjected acute on chronic low back pain, foot pain and now chest pain Encourage use of tylenol 1000mg or ibuprofen 600mg PRN Chronic suprapubic catheter 05/31/2014 Overview: Placed 05/26 @ [facility] by interventional radiology for urinary retention and [...] disc without myelopathy 03/03/2006 Overview: Rigth L5-S1. [place] injections. Did not help. For discectomy at [facility] 08/31/06. Had subsequent MRSA graft Remove rods [...] 01/23: sees Dr. Mock (spine surgeon) @ [facility] 10/24: lumbar spinal surgery by Dr. Bob [...] a contraindication to starting her on opioids." [facility] discharge 10/04/15: patient exhibiting behavior of narcotic dependency (requesting escalation of IV dilaudid) Weakness of both upper extremities 08/21/2015 12/12/2019 Generalized weakness 03/01/2015 018 Chronic back pain 03/01/2015 03/03/2022 Paraplegia 02/19/2015 03/25/2016 MEDICATION USE AGREEMENT 06/07/2014 Overview: Pain contract established with [facility] ED 05/26 - give valium [...] 01/04/2023 Overview: Cysto neg 05/21/13. Following with [facility] urology Miri CERVANTES as of 09/26/2013. Resolved s/p laminectomy L4-S1 October 2013 @ [place] [address] Dr. Heard. Last Assessment & Plan: [...] wellbutrin 03/27: followed by Mauricio THOMPSON @ [facility] ADVANCE DIRECTIVE INFORMATION 11/17/2004 08/06/2022 Overview: No, Advance Directive brochure offered , patient declined. Allergic rhinitis 11/24/2001 11/30/2018 Overview: zyrtec Fatty liver 08/06/2022 Chronic sinusitis 11/30/2018 Overview: frequent documented as of this encounter (statuses as of 11/08/2023) Immunizations Name Administration Dates Next Due COVID-19 mRNA, LNP-s, No Pre serve, 2-Dose Series (Valmarc) 06/25/2021,12/13/2020,11/15/2020 COVID-19, MRNA-LNP, 23-24, P F, 30 MCG/0.3 mL, 12 YRS AND ABOVE, IM ([employer]E [employer]-Comirnat) 03/29/2023 Covid-19, Mrna, Lnp-s, Pf, B ivalent, 30 Mcg, IM, 12 yrs and above (Pfizer) 06/17/2022 H1N1 2009 Influenza, IM 05/27/2009 Pneumococcal Conjugate Vacci ne, 20-valent ([id number]) 12/15/2021 Pneumococcal Polysaccharide PPV23 (Pneumovax) 05/01/2008 Seasonal [...] Description 11/24/2023 9:00 AM EDT Therapy [facility], [place] [facility] [phone] Ghazal Best LCSW [address] [place] [address] 11/30/2023 8:40 AM EDT Nurse Only Ancillary 1st Floor, [place] 21 [facility] [place] [address] Emma, Nurse [place] [facility] [place] [address] 12/27/2023 9:00 AM EDT Office Visit Psychiatry, [place] Kenia Vinhalvaro [place] [address] Cole, Siomara Hooker, NAIL MAKER 200 [facility], [place] [address] 12/29/2023 10:13 AM EDT Hospital Encounter OR GL, Operating Room, [facility] - 4th Floor [address] [place] [address] Cristiano Alaniz, DO [address] [place] [address] 12/29/2023 10:13 AM EDT - 12/29/2023 10:56 AM EDT Surgery OR [facility], Operating Room, [facility] - 4th Floor [address] [place] [place] [address] Cristiano Alaniz, DO [address] [place] [address] COLONOSCOPY FLEXIBLE PROXIMAL DIAGNOSTIC 01/16/2024 12:00 PM EDT Office Visit Family Practice, [place] [address] [place] [phone] Sarah Saavedra PA-C [facility] [place] [phone] 02/02/2024 10:40 AM EDT Office Visit Interventional Pain Ctr Angelia Ayala [address] [place] [address] Traic Ricardo MD 400 [facility] [place] [address] 03/01/2024 11:20 AM EDT Office Visit Neurology [facility] [address] [place] [address] Maureen Bowie MD 200 [facility] [address] 03/05/2024 9:30 AM EDT Office Visit Interventional Pain Ctr Angelia Ayala [address] [place] [address] Devon Damon PA-C [address] [place] [address] Scheduled Procedures Name Priority Associated Diagnoses Date/Ti [...] this encounter Medical Devices Implanted Type Area Funeral Service Apprentice Device Identifier Shelf Expiration Date Model / Serial / Lot Plate Small Mtpj - [id number] Implanted:Qty: 1 on 11/15/2017 by Cristobal Calvillo MD at OR [facility] Left: Foot [id number] / / Screw Locking 2.7x14mm - [id number] Implanted:Qty: 1 on 11/15/2017 by Cristobal Calvillo MD at OR [facility] [employer] Left: Foot 2802-9490 / / 2.7 X 16mm Locking Screw Implanted:Qty: 2 on 11/15/2017 by Cristobal Calvillo MD at [facility] Left: Foot [employer] 1014-3426 / / 2.7 X 20 Locking Screw Implanted:Qty: 1 on 11/15/2017 by Cristobal Calvillo MD at OR [facility] Left: Foot [employer] [id number] / / 2.7 X 18mm Locking Screw Implanted:Qty: 1 on 11/15/2017 by Cristobal Calvillo MD at OR [facility] Left: Foot [employer] 9611-4132 / / Screw Locking 2.7x10mm - [id number] Implanted:Qty: 1 on 11/15/2017 by Cristobal Calvillo MD at OR [facility] Left: Foot [employer] 0738-4270 / / 4.0mm X 44 Mm Compression Screw Implanted:Qty: 1 on 10/09/2018 by Bao Hernández MD at OR [facility] Left: Foot AR-8740-44 H / / Description:Implant from set 2.5x30 Compression Screw Implanted:Qty: 1 on 10/09/2018 by Bao Hernández MD at OR [facility] Left: Foot [employer] AR-8725-30 H / / Screw [employer] 2.8dlk89zo - [id number] Implanted:Qty: 2 on 02/01/2022 by Bao Hernández MD at OR [facility] Right: Toe EX[employer]ECH 2094-8209 / / Plate Mtpj - [id number] Implanted:Qty: 1 on 02/01/2022 by Bao Hernández MD at OR [facility] Right: Foot [employer] 6055-9451 / / Screw Locking 2.7x10mm - [id number] Implanted:Qty: 2 on 02/01/2022 by Bao Hernández MD at OR [facility] Right: Foot [employer] 2028-4340 / / Screw Locking 2.7x12mm - [id number] Implanted:Qty: 3 on 02/01/2022 by Bao Hernández MD at OR [facility] Right: Foot [employer] 9742-3698 / / Screw Locking 2.7x14mm - [id number] Implanted:Qty: 1 on 02/01/2022 by Bao Hernández MD at OR [facility] Right: Foot [employer] 6294-8860 / / Screw [employer] 2.5ofs85db - [id number] Implanted:Qty: 1 on 02/01/2022 by Bao Hernández MD at OR [facility] Right: Toe [employer]ECH 1884-9137 / / Port Implant W/8f Poly Cath - [id number] Implanted:Qty: 1 on 06/02/2022 by Lawrence Cat DO at OR [facility] Right: Chest CR BARD : PERIPHERAL VASCULAR [id number] 05/12/2023 [id number] / / [id number] documented as of this encounter Advance Directives Documents on File Type Date Recorded Patient Community Health Advisor Expl anation POLST 12/03/2020 POLST PENNSYLVA ROSA [...] Agent Relationship Communication Ni Mancini Grandparent First [facility] Health Care Agent Andria Addison Mother Emergency Contact Care Teams Information Receptionist Relationship Specialty Start Date End Date Sarah Saavedra PA-C [address] [place] [phone] PCP - General Physician Child Care Education Coordinator 09/06/23 documented as of this encounter
--- OUTSIDE RECORDS SUMMARY | 2023-11-11 06:51 | External Medical Summary | Summary of Care ---
Author Name Unknown Organization [facility] Address [address] [place] [address] Phone [phone] Care Team Providers Care Acoustical Logging Engineer Name Role Phone Sarah Saavedra PA-C Primary Care Provider [phone] [phone] Encounter Details Date Type Department Care Team (Late st Contact Info) Description 11/07/2023 Population Health External Data Unspecified Department Allergies [...] said itching Latex Itching 09/26/2013 Linezolid 10/23/2014 [place] Other (Please comment) High 12/29/2014 Became unresponsive [...] as of this encounter (statuses as of 11/07/2023) Medications Medication Sig Dispensed Refills Start Date [...] suspected opioid overdose. Seek immediate medical attention. [email or web address] [email or web address] AcI 1 Each 3 07/28/2023 Active Additional [...] November 08, 2023. 23 Tablet 11/08/2023 Active Terconazole 0.8 % Vaginal CreamIndications:Y east vaginitis Administer 1 Applicator into the vagina at bedtime for 3 days. For 3 days. 20 g 11/04/2023 Active Amoxicillin-Pot Clavulanate 875-125 MG Oral Tablet (Augmentin) Take 1 Tablet by mouth in the morning and 1 Tablet before bedtime. 20 Tablet 11/06/2023 Active Hospital, Clinic, or Other Facility Administered Medication Ordered Dose Route Frequency Start Date End Date Status vitamin b-12 (Cyanocobalamin) inj 1,000 mcgIndications:S/P gastric bypass 1000 mcg IM [id number] 08/30/2023 06/03/2026 Active documented as of this encounter (statuses as of 11/07/2023) Active Problems Problem Noted Date Diagnosed Date [...] de depressed, severe, w/psychotic features 05/03/2022 supervisor white sugar current use of anticoagulant therapy 0 08/28/2021 Recurrent chest pain 07/31/2021 Last Assessment & Plan: Referred to cardiology for workup--seen in Jul. [place] atypical for ACS. ED workup neg for [...] & Plan: Primary reason for transfer from [facility] to [facility] rehab. C/o LE weakness and acute/chronic low back pain. Lumbar spine MRI reportedly performed @ [facility], not available for review Pt denies receiving steroid injections D/C IV dilaudid. Resume PO hydromorphone 4mg in setting of subjected acute on chronic low back pain, foot pain and now chest pain Encourage use of tylenol 1000mg or ibuprofen 600mg PRN Chronic suprapubic catheter 05/31/2014 Overview: Placed 05/26 @ [facility] by interventional radiology for urinary retention and [...] disc without myelopathy 03/03/2006 Overview: Rigth L5-S1. [place] injections. Did not help. For discectomy at [facility] 08/31/06. Had subsequent MRSA graft Remove rods [...] 01/23: sees Dr. Mock (spine surgeon) @ [facility] 10/24: lumbar spinal surgery by Dr. Bob Heard 09/11/15: bulging disc with moderate narrowing of neural foramen B L4-5 and R L5- S1 Gastroesophageal reflux disease without esophagi tis 08/15/2003 Overview: EGD 12/23: + small hiatal hernia, no gastritis; increase PPI to protonix 40 mg bid Egd 10/16 mild esophagitis and gastritis. Generic Scoliosis documented as of this encounter (statuses as of 11/07/2023) Resolved Problems Problem Noted Date Diagnosed Date [...] a contraindication to starting her on opioids." [facility] discharge 10/04/15: patient exhibiting behavior of narcotic dependency (requesting escalation of IV dilaudid) Weakness of both upper extremities 08/21/2015 12/12/2019 Generalized weakness 03/01/2015 018 Chronic back pain 03/01/2015 03/03/2022 Paraplegia 02/19/2015 03/25/2016 MEDICATION USE AGREEMENT 06/07/2014 Overview: Pain contract established with [facility] ED 05/26 - give valium 5 [...] 01/04/2023 Overview: Cysto neg 05/21/13. Following with [facility] urology Miri CERVANTES as of 09/26/2013. Resolved s/p laminectomy L4-S1 October 2013 @ [place] [address] Dr. Heard. Last Assessment & Plan: [...] wellbutrin 03/27: followed by Mauricio THOMPSON @ [facility] ADVANCE DIRECTIVE INFORMATION 11/17/2004 08/06/2022 Overview: No, Advance Directive brochure offered , patient declined. Allergic rhinitis 11/24/2001 11/30/2018 Overview: zyrtec Fatty liver 08/06/2022 Chronic sinusitis 11/30/2018 Overview: frequent documented as of this encounter (statuses as of 11/07/2023) Immunizations Name Administration Dates Next Due COVID-19 mRNA, LNP-s, No Pre serve, 2-Dose Series (ADVIZE) 06/25/2021,12/13/2020,11/15/2020 COVID-19, MRNA-LNP, 23-24, P F, 30 MCG/0.3 mL, 12 YRS AND ABOVE, IM ([employer]Comirnat[employer] 03/29/2023 Covid-19, Mrna, Lnp-s, Pf, B ivalent, 30 Mcg, IM, 12 yrs and above (Pfizer) 06/17/2022 H1N1 2009 Influenza, IM 05/27/2009 Pneumococcal Conjugate Vacci ne, 20-valent (Szghyas17) 12/15/2021 Pneumococcal Polysaccharide PPV23 (Pneumovax) 05/01/2008 Seasonal [...] Info) Description 11/24/2023 9:00 [place] [phone] Ghazal Best LCSW [address] [place] [address] 11/30/2023 8:40 AM EDT Nurse Only Ancillary 1st Floor, [place] [address] [place] [address] Emma, Nurse Fp [address] [place] [address] 12/27/2023 9:00 AM EDT Office Visit Psychiatry, [place] [address] [place] [address] [place], B[facility] Lazcano [facility] [address] 12/29/2023 10:13 AM EDT Hospital Encounter OR GL, Operating Room, [facility] - 4th Floor [address] [place] [address] Cristiano Alaniz, DO [address] [place] [address] 12/29/2023 10:13 AM EDT - 12/29/2023 10:56 AM EDT Surgery OR [facility], Operating Room, [facility] - 4th Floor [address] [place] [place] [address] Cristiano Alaniz, DO [address] [place] [address] COLONOSCOPY FLEXIBLE PROXIMAL DIAGNOSTIC 01/16/2024 12:00 PM EDT Office Visit Family Practice, [place] [address] [place] [phone] Sarah Saavedra PA-C [facility] [place] [address] 02/02/2024 10:40 AM EDT Office Visit Interventional Pain Ctr Angelia Ayala [address] [place] [address] Traci Ricardo MD 400 [facility] [place] [address] 03/01/2024 11:20 AM EDT Office Visit Neurology [facility] 200 [place] [address] Maureen Bowie MD 200 [facility] [place] [address] 03/05/2024 9:30 AM EDT Office Visit Interventional Pain Ctr [facility] [address] [place] [address] Devon Damon PA-C [address] [place] [address] Scheduled Procedures Name Priority Associated Diagnoses Date/Ti [...] this encounter Medical Devices Implanted Type Area Private Tutors And Teachers Device Identifier Shelf Expiration Date Model / Serial / Lot Plate Small Mtpj - [id number] Implanted:Qty: 1 on 11/15/2017 by Cristobal Calvillo MD at OR [facility] Left: Foot 7908-3061 / / Screw Locking 2.7x14mm - [id number] Implanted:Qty: 1 on 11/15/2017 by Cristobal Calvillo MD at OR [facility] Left: Foot 9986-8996 / / 2.7 X 16mm Locking Screw Implanted:Qty: 2 on 11/15/2017 by Cristobal Calvillo MD at OR [facility] Left: Foot [employer] 3024-1912 / / 2.7 X 20 Locking Screw Implanted:Qty: 1 on 11/15/2017 by Cristobal Calvillo MD at OR [facility] Left: Foot [employer] 5079-4545 / / 2.7 X 18mm Locking Screw Implanted:Qty: 1 on 11/15/2017 by Cristobal Calvillo MD at OR [facility] Left: Foot [employer] 5546-3812 / / Screw Locking 2.7x10mm - [id number] Implanted:Qty: 1 on 11/15/2017 by Cristobal Calvillo MD at OR [facility] Left: Foot [employer] 2945-1737 / / 4.0mm X 44 Mm Compression Screw Implanted:Qty: 1 on 10/09/2018 by Bao Hernández MD at OR [facility] Left: Foot AR-8740-44 H / / Description:Implant from set 2.5x30 Compression Screw Implanted:Qty: 1 on 10/09/2018 by Bao Hernández MD at OR [facility] Left: Foot [employer] AR-8725-30 H / / Screw [employer] 2.4xzu35qm - [id number] Implanted:Qty: 2 on 02/01/2022 by Bao Hernández MD at OR [facility] Right: Toe EXACTECH 1416-2599 / / Plate Mtpj - [id number] Implanted:Qty: 1 on 02/01/2022 by Bao Hernández MD at OR [facility] Right: Foot EX[employer]ECH 7349-6058 / / Screw Locking 2.7x10mm - [id number] Implanted:Qty: 2 on 02/01/2022 by Bao Hernández MD at OR [facility] Right: Foot [employer]CH / / Screw Locking 2.7x12mm - [id number] Implanted:Qty: 3 on 02/01/2022 by Bao Hernández MD at OR [facility] Right: Foot [employer]CH / / Screw Locking 2.7x14mm - [id number] Implanted:Qty: 1 on 02/01/2022 by Bao Hernández MD at OR [facility] Right: Foot [employer] / / Screw [employer] 2.7pmp00vh - [id number] Implanted:Qty: 1 on 02/01/2022 by Bao Hernández MD at OR [facility] Right: Toe [employer]ECH 2442-9061 / / Port Implant W/8f Poly Cath - [id number] Implanted:Qty: 1 on 06/02/2022 by Lawrence Cat DO at OR [facility] Right: Chest CR BARD : PERIPHERAL VASCULAR [id number] 05/12/2023 [id number] / / [id number] documented as of this encounter Advance Directives Documents on File Type Date Recorded Patient Director Housekeeping Expl anation KUSUM 12/03/2020 POLST DIETRICH ROSA ORDERS FOR LIFE-SUSTAINING TREATMENT * Full [...] Agent Relationship Communication Nirosana Mancini Grandparent [facility] Health Care Agent Andria Addison Mother Emergency Contact Care Teams Acoustical Logging Engineer Relationship Specialty Start Date End Date Sarah Saavedra PA-C [address] [place] [phone] PCP - General Physician Traffic Rate Analyst 09/06/23 documented as of this encounter
--- OUTSIDE RECORDS SUMMARY | 2023-11-11 06:51 | External Medical Summary | Summary of Care ---
Author Name Unknown Organization [facility] Address [address] [place] [address] Phone [phone] Care Team Providers Care Mathematics Teacher Name Role Phone Sarah Saavedra PA-C Primary Care Provider [phone] Reason for Visit * Reason Onset Date Comments Filling Problem 11/08/2023 Encounter Details Date Type Department Care Team (Late st Contact Info) Description 11/08/2023 Telephone [facility] [address] [facility] [address] Cydney Moe MD 21 [facility] [place] [address] Filling Problem Allergies Active Allergy Reactions Criticality Noted Date [...] said itching Latex Itching 09/26/2013 Linezolid 10/23/2014 [place] Other (Please comment) High 12/29/2014 Became unresponsive [...] IN THE MORNING 30 Capsule 6 01/12/20 23 Active Ramelteon 8 MG Oral Tablet Take [...] needed for Nausea. 30 Tablet 1 04/04/20 Active ZOLMitriptan 5 MG Oral Tablet (Zomig) One at onset migraine may repeat in 2 hours maximum 2 doses in 24 hours 10 Tablet 5 05/18/20 23 Active Additional Information Patient not taking.Reported on [...] suspected opioid overdose. Seek immediate medical attention. [email or web address] 1 Each 3 07/28/19 24 Active Additional [...] needed for Itching. 30 g 1 08/09/19 24 Active Additional Information Patient not taking.Reported on 10/31/2023 Ipratropium-Albut marla 0.5-2.5 (3) MG/3ML Inhalation Solution (Duoneb)Indicatio ns:Asthma in remission,COVID-1 9 virus infection Inhale 3 mL via nebulizer every 6 hours as needed for Shortness of Breath or Wheezing. 360 mL 1 08/10/19 Active Additional Information Patient not taking.Reported on 10/31/2023 Pantoprazole Sodium 40 MG Oral Tablet Delayed Release (Protonix)Indicat ions:Abdominal pain, generalized TAKE 1 TABLET BY MOUTH IN THE MORNING & TAKE 1 TABLET IN THE EVENING 180 Tablet 1 08/30/19 Active traZODone HCl 100 MG Oral Tablet (Desyrel) TAKE ONE TABLET BY MOUTH AT BEDTIME DIRECTED 08/29/19 Active Clotrimazole 1 % External Cream (Lotrimin) Apply topically to affected area 2 times a day. Apply to abdominal crease, apply ONE Time per day x 14 days then stop 15 g 1 09/13/19 Active Additional Information Patient not taking.Reported on [...] Ajovy 225 MG/1.5ML Subcutaneous Solution Prefilled Syringe (FretatianaezPrimeAgain,Inc-vfr m) Inject 1.5 mL under the skin [...] taking Oxycodone. 2 Tablet 11/08/19 24 Active OneTouch Delica Lancets 33G Use up to 3 times daily E16.2 11/08/19 24 Active OneTouch Verio In Vitro Strip (Glucose Blood)Indications :Hypoglycemia Use up to 3 times daily E16.2 100 Strip 11 11/08/19 24 Active OneTouch UltraSoft LancetsIndication s:Prediabetes,Hyp oglycemia Use up to 3 times daily E16.2 100 Each 2 11/08/19 24 024 Discontinued OneTouch Delica Lancing DevIndications:Pr ediabetes,Hypogly cemia E 16.2 1 Each 11/08/19 24 024 Discontinued Hospital, Clinic, or Other Facility Administered Medication Ordered Dose Route Frequency Start Date End Date Status vitamin b-12 (Cyanocobalamin) inj 1,000 mcgIndications:S/P gastric bypass 1000 mcg IM [id number] 08/30/2023 06/03/2026 Active documented as of this [...] episo de depressed, severe, w/psychotic features 05/03/2022 alf current use of anticoagulant therapy 0 08/28/2021 Recurrent chest pain 07/31/2021 Last Assessment & Plan: Referred to cardiology for workup--seen in Jul. [place] atypical for ACS. ED workup neg for [...] & Plan: Primary reason for transfer from [facility]/o LE weakness and acute/chronic low back pain. Lumbar spine MRI reportedly performed @ [facility], not available for review Pt denies receiving steroid injections D/C IV dilaudid. Resume PO hydromorphone 4mg in setting of subjected acute on chronic low back pain, foot pain and now chest pain Encourage use of tylenol 1000mg or ibuprofen 600mg PRN Chronic suprapubic catheter 05/31/2014 Overview: Placed 05/26 @ [facility] by interventional radiology for urinary retention and [...] injections. Did not help. For discectomy at [facility] 08/31/06. Had subsequent MRSA graft Remove rods [...] 01/23: sees Dr. Mock (spine surgeon) @ [facility] 10/24: lumbar spinal surgery by Dr. Bob Headr 09/11/15: bulging disc with moderate narrowing of [...] a contraindication to starting her on opioids." [facility] discharge 10/04/15: patient exhibiting behavior of narcotic dependency (requesting escalation of IV dilaudid) Weakness of both upper extremities 08/21/2015 12/12/2019 Generalized weakness 03/01/2015 018 Chronic back pain 03/01/2015 03/03/2022 Paraplegia 02/19/2015 03/25/2016 MEDICATION USE AGREEMENT 06/07/2014 Overview: Pain contract established with [facility] ED 05/26 - give valium 5 mg [...] 01/04/2023 Overview: Cysto neg 05/21/13. Following with [facility] urology Miri CERVANTES as of 09/26/2013. Resolved s/p laminectomy L4-S1 October 2013 @ [place] by Dr. Heard. Last Assessment & Plan: [...] mild persistent 12/08/200910/11 Overview: Per Asthma Taxonomy, gabriel Randhawair PFT 04/30/14: normal Acidosis 09/16/2009 02/02/2018 Overview: [...] wellbutrin 03/27: followed by Mauricio THOMPSON @ [facility] ADVANCE DIRECTIVE INFORMATION 11/17/2004 08/06/2022 Overview: No, Advance Directive brochure offered , patient declined. Allergic rhinitis 11/24/2001 11/30/2018 Overview: zyrtec Fatty liver 08/06/2022 Chronic sinusitis 11/30/2018 Overview: frequent documented as of this encounter (statuses as of 11/08/2023) Immunizations Name Administration Dates Next Due COVID-19 mRNA, LNP-s, No Pre serve, 2-Dose Series (Mobil Oto Servis) 06/25/2021,12/13/2020,11/15/2020 COVID-19, MRNA-LNP, 23-24, P F, 30 MCG/0.3 mL, 12 YRS AND ABOVE, IM (PFIZER-Comirnaty) 03/29/2023 Covid-19, Mrna, Lnp-s, Pf, B ivalent, 30 Mcg, IM, 12 yrs and above (Pfizer) 06/17/2022 H1N1 2009 Influenza, IM 05/27/2009 Pneumococcal Conjugate Vacci ne, 20-valent ([id number]) 12/15/2021 Pneumococcal Polysaccharide PPV23 (Pneumovax) 05/01/2008 Seasonal [...] No 07/08/2023 documented as of this encounter Miscellaneous Notes * Telephone Encounter - Yeyo Oliveros LPN - 11/08/2023 12:42 PM EDT Lawrence at [facility] has been informed of below message and verbalized understanding. * Telephone Encounter - Cydney Moe MD - 11/08/2023 12:21 PM EDT New script for One touch strips sent. Ok to fill Percocet # 2 for severe pain only. Patient is aware to hold Tylenol #3 if taking Percocet. Patient reports severe bladder spasm/pain and flank pain since most recent urologic procedure. She has UTI now (seen in ED 11/06/23, urine culture positive) She is schedule with urology on . * Telephone Encounter - Radha Jiménez LPN - 11/08/2023 11:01 AM EDT [facility] states that the glucometer comes with a lancing device and pt does not need this order - cancelled Lancets - needs delica lancets and Lawrence changed the order to those - updated med list Needs new order for test strips - pended [facility] states that he just filled patients Tylenol 3 today Also has a script sent in for Percocet, had just filled a script for 2 tablets on Tuesday [facility] wants to make sure that provider is ok with this Pharm selected. Please advise. documented in this encounter Plan of Treatment Upcoming Encounters Date Type Department Care Team (Late st Contact Info) Description 11/11/2023 9:20 AM EDT Telemedicine Nutrition & Weight Management, [place] [address], [place] [id number] Gem Maher CRNP [address] [place] [address] 11/24/2023 9:00 AM EDT Therapy Psychology, [address] [place] [address] Ghazal Best [facility] [address] [facility] [id number] 11/30/2023 8:40 AM EDT Nurse Only Ancillary 1st Floor, [place] [address] [place] [address] [place], [address] [facility] [place] [address] 12/27/2023 9:00 AM EDT Office Visit Psychiatry, [place] [address] [place] [phone] Siomara Cole CRNP [address] [place] [address] 12/29/2023 10:13 AM EDT Hospital Encounter OR [facility], Operating Room, [facility] - 4th Floor [address] [place] [id number] Cristiano Alaniz, DO [address] [place] [address] 12/29/2023 10:13 AM EDT - 12/29/2023 10:56 AM EDT Surgery OR [facility], Operating Room, [facility] - 4th Floor [address] [place] [address] Cristiano Alaniz, DO [address] [place] [address] COLONOSCOPY FLEXIBLE PROXIMAL DIAGNOSTIC 01/16/2024 12:00 PM EDT Office Visit [facility] [address] [facility] [place] [id number] Sarah Saavedra PA-C [address] [facility] [place] [address] 02/02/2024 10:40 AM EDT Office Visit [facility]tr Angelia Ayala [address] [place] [address] Traci Ricardo MD [address] [facility] [place] [address] 03/01/2024 11:20 AM EDT Office Visit Neurology [facility] [address] [facility] [place] [place] [address] Maureen Bowie MD [address] [facility] [place] [address] 03/05/2024 9:30 AM EDT Office Visit Interventional Pain Ctr Angelia Ayala [address] [place] [address] Devon Damon PA-C [address] [place] [address] Scheduled Procedures Name Priority Associated Diagnoses Date/Ti [...] this encounter Medical Devices Implanted Type Area Jewelry Designer Device Identifier Shelf Expiration Date Model / Serial / Lot Plate Small Mtpj - [id number] Implanted:Qty: 1 on 11/15/2017 by Cristobal Calvillo MD at [facility] Left: Foot / / Screw Locking 2.7x14mm - [id number] Implanted:Qty: 1 on 11/15/2017 by Cristobal Calvillo MD at OR [facility] Left: Foot / / 2.7 X 16mm Locking Screw Implanted:Qty: 2 on 11/15/2017 by Cristobal Calvillo MD at [facility] Left: Foot [employer] / / 2.7 X 20 Locking Screw Implanted:Qty: 1 on 11/15/2017 by Cristobal Calvillo MD at [facility] Left: Foot [employer] / / 2.7 X 18mm Locking Screw Implanted:Qty: 1 on 11/15/2017 by Cristobal Calvillo MD at [facility] Left: Foot [employer] / / Screw Locking 2.7x10mm - [id number] Implanted:Qty: 1 on 11/15/2017 by Cristobal Calvillo MD at OR [facility] Left: Foot [employer] / / 4.0mm X 44 Mm Compression Screw Implanted:Qty: 1 on 10/09/2018 by Bao Hernández MD at OR [facility] Left: Foot AR-8740-44 H / / Description:Implant from set 2.5x30 Compression Screw Implanted:Qty: 1 on 10/09/2018 by Bao Hernández MD at OR [facility] Left: Foot [employer] AR-8725-30 H / / Screw [employer] 2.5hlg44wt - [id number] Implanted:Qty: 2 on 02/01/2022 by Bao Hernández MD at OR [facility] Right: Toe [employer] 7800-2840 / / Plate Mtpj - [id number] Implanted:Qty: 1 on 02/01/2022 by Bao Hernández MD at OR [facility] Right: Foot [employer] 8099-6310 / / Screw Locking 2.7x10mm - [id number] Implanted:Qty: 2 on 02/01/2022 by Bao Hernández MD at OR [facility] Right: Foot [employer] 0928-5303 / / Screw Locking 2.7x12mm - [id number] Implanted:Qty: 3 on 02/01/2022 by Bao Hernández MD at OR [facility] Right: Foot [employer] / / Screw Locking 2.7x14mm - [id number] Implanted:Qty: 1 on 02/01/2022 by Bao Hernández MD at OR [facility] Right: Foot [employer] / / Screw [employer] 2.4uiu48ye - [id number] Implanted:Qty: 1 on 02/01/2022 by Bao Hernández MD at OR [facility] Right: Toe [employer] [id number] / / Port Implant W/8f Poly Cath - [id number] Implanted:Qty: 1 on 06/02/2022 by Lawrence Cat DO at OR [facility] Right: Chest CR BARD : PERIPHERAL VASCULAR [id number] 05/12/2023 [id number] / / [id number] documented as of this encounter Visit Diagnoses Diagnosis Hypoglycemia- Primary Hypoglycemia, unspecified RLQ abdominal pain Abdominal pain, right lower quadrant Constipation, unspecified constipation type Abnormal CT of the abdomen Nonspecific (abnormal) findings on radiological and other examination of abdominal area, including retroperitoneum documented in this encounter Advance Directives Documents on File Type Date Recorded Patient Air Conditioning Specialist Expl anation POLST 12/03/2020 POLST PENNSYLVA ROSA [...] Name Relationship Healthcare Agent Relationship Communication Ni Live Grandparent [facility] Agent Andria Addison Mother Emergency Contact Care Teams Mathematics Teacher Relationship Specialty Start Date End Date Sarah Saavedra PA-C [address] [place] [phone] PCP - General Physician Guest Services Manager 09/06/23 documented as of this encounter
--- OUTSIDE RECORDS SUMMARY | 2023-11-11 06:52 | External Medical Summary | Summary of Care ---
Author Name Unknown Organization [facility] Address [address] [place] [address] Phone [phone] Care Team Providers Care Mortuary Technician Name Role Phone Sarah Saavedra PA-C Primary Care Provider [phone] Reason for Visit * Reason Onset Date Comments Med Request 11/04/2023 Encounter Details Date Type Department Care Team ([facility] st Contact Info) Description 11/04/2023 Telephone [facility] [place] [phone] Sarah Saavedra PA-C [facility] [place] [address] Med Request Allergies Active Allergy Reactions Criticality Noted Date [...] said itching Latex Itching 09/26/2013 Linezolid 10/23/[address] Other (Please comment) High 12/29/2014 Became unresponsive [...] as of this encounter (statuses as of 11/04/2023) Medications Medication Sig Dispensed Refills Start Date [...] opioid overdose. Seek immediate medical attention. [email or web address]://[email or web address] com/[email or web address]?[email or web address] [email or web address] 1 Each 3 07/28/2023 Active Additional [...] Ajovy 225 MG/1.5ML Subcutaneous Solution Prefilled Syringe (Fremanezumab-[facility] ) Inject 1.5 mL under the [...] For 3 days. 20 g 11/04/2023 Active Hospital, Clinic, or Other Facility Administered Medication Ordered Dose Route Frequency Start Date End Date Status vitamin b-12 (Cyanocobalamin) inj 1,000 mcgIndications:S/P gastric bypass 1000 mcg IM [id number] 08/30/2023 06/03/2026 Active documented as of this encounter (statuses as of 11/04/2023) Active Problems Problem Noted Date Diagnosed Date [...] episo de depressed, severe, w/psychotic features 05/03/2022 terminal clerk current use of anticoagulant therapy 0 08/28/2021 Recurrent chest pain 07/31/2021 Last Assessment & Plan: Referred to cardiology for workup--seen in Jul. [place] atypical for ACS. ED workup neg for [...] & Plan: Primary reason for transfer from [facility] to [facility] rehab. C/o LE weakness and acute/chronic low back pain. Lumbar spine MRI reportedly performed @ [facility], not available for review Pt denies receiving steroid injections D/C IV dilaudid. Resume PO hydromorphone 4mg in setting of subjected acute on chronic low back pain, foot pain and now chest pain Encourage use of tylenol 1000mg or ibuprofen 600mg PRN Chronic suprapubic catheter 05/31/2014 Overview: Placed 05/26 @ [facility] by interventional radiology for urinary retention and [...] injections. Did not help. For discectomy at [facility] 08/31/06. Had subsequent MRSA graft Remove rods [...] 01/23: sees Dr. Mock (spine surgeon) @ [facility] 10/24: lumbar spinal surgery by Dr. Bob Heard 09/11/15: bulging disc with moderate narrowing of neural foramen B L4-5 and R L5- S1 Gastroesophageal reflux disease without esophagi tis 08/15/2003 Overview: EGD 12/23: + small hiatal hernia, no gastritis; increase PPI to protonix 40 mg bid Egd 10/16 mild esophagitis and gastritis. Generic Scoliosis documented as of this encounter (statuses as of 11/04/2023) Resolved Problems Problem Noted Date Diagnosed Date [...] 04/18/2019 Quadriplegia, unspecified 11/16/2016 Unspecified convulsions 11/16/2016 0706/2019 Opioid dependence, uncomplicated 11/16/2016 07/27/2019 Fall 11/09/2016 [...] contraindication to starting her on opioids." [facility] discharge 10/04/15: patient exhibiting behavior of narcotic dependency (requesting escalation of IV dilaudid) Weakness of both upper extremities 08/21/2015 12/12/2019 Generalized weakness 03/01/2015 018 Chronic back pain 03/01/2015 03/03/2022 Paraplegia 02/19/2015 03/25/2016 MEDICATION USE AGREEMENT 06/07/2014 Overview: Pain contract established with [facility] ED 05/26 - give valium [...] 01/04/2023 Overview: Cysto neg 05/21/13. Following with [facility] urology Miri CERVANTES as of 09/26/2013. Resolved s/p laminectomy L4-S1 October 2013 @ [place] [address] Dr[address] Heard. Last Assessment & Plan: [...] wellbutrin 03/27: followed by Mauricio THOMPSON @ [facility] ADVANCE DIRECTIVE INFORMATION 11/17/2004 08/06/2022 Overview: No, Advance Directive brochure offered , patient declined. Allergic rhinitis 11/24/2001 11/30/2018 Overview: zyrtec Fatty liver 08/06/2022 Chronic sinusitis 11/30/2018 Overview: frequent documented as of this encounter (statuses as of 11/04/2023) Immunizations Name Administration Dates Next Due COVID-19 mRNA, LNP-s, No Pre serve, 2-Dose Series ([place]) 06/25/2021,12/13/2020,11/15/2020 COVID-19, MRNA-LNP, 23-24, P F, 30 MCG/0.3 mL, 12 YRS AND ABOVE, IM ([employer]) 03/29/2023 Covid-19, Mrna, Lnp-s, Pf, B ivalent, 30 Mcg, IM, 12 yrs and above (Pfizer) 06/17/2022 DT - Diptheria/Tetanus (PEDS) 07/15/1991, 988,02/27/1987 DTWP - Dipth/Tet/Whole Cell Pertussis 1986 DTWP HIB - Dipth/Tet/Whole C ell Pert/HIB 1986 H1N1 2009 Influenza, IM 05/27/2009 Haemophilius B (HIB), unspecified 03/04/1988 Hepatitis B, 0-19 yrs 04/04/1997,10/30/1996,09/12 MMR - Measles/Mumps/Rubella Vaccine 08/13/1991,0 10/27/1987 Meningococcal Polysaccharide Vaccine ([place]) 03/02/2005 OPV - Polio Virus Vaccine (Oral) 992,03/04/1988,02/27/1987,12/26,1986 PPD 07/24/1987 Pneumococcal Conjugate Vacci ne, 20-valent (Guilxyx34) 12/15/2021 Pneumococcal Polysaccharide PPV23 (Pneumovax) 05/01/2008 Seasonal Influenza, PF, 6 M & above, IM , (FluLaval or Fluzone) 02/22/2023,03/03/2022,03/25/2021,03/18,02/15/2019,03/29/2018 Seasonal Influenza, Quadriva lent, No Preserve, IM 04/01/2016 Seasonal Influenza, Quadriva lent, No Preserve, Peds 04/27/2017 Seasonal Influenza, Split, I IV3, With Preserve, Inj 02/24/2015,03/05/2014,04/17/2013,04/05,03/26/2009,04/16/2008,04/26/2007 ,03/22/2006 TD - Tetanus/Diptheria (ADULT) 03/03/1999 TDAP (age 10 and older)(Boostrix) 04/23/2019 TDAP (age 11 and older)(Adacel) 03/26/2009 Varicella Vaccine (Chicken Pox) 12/21/1994 documented as of this encounter Social History [...] encounter Miscellaneous Notes * Telephone Encounter - Omaira Ariza RN - 11/04/2023 2:10 PM EDT Call to pt to make aware, she received the cream today * Telephone Encounter - Cydney Moe MD - 11/04/2023 10:17 AM EDT Terconazole sent * Telephone Encounter - Omaira Ariza RN - 11/04/2023 9:53 AM EDT Spoke with pt Aware that Percocet and Tylenol #3 prescriptions have just been sent Will forward message to provider to request cream for yeast infection * Telephone Encounter - Kathrin Campuzano OSA - 11/04/2023 9:19 AM EDT Pt calling back in to see if medication is going to be sent over to pharmacy. She had a telemed visit yesterday. Needs medication for yeast infection, tylenol, and percocet documented in this encounter Plan of Treatment Upcoming Encounters Date Type Department Care Team (Late st Contact Info) Description 11/22/2023 1:00 PM EDT Therapy Psychology, [address] [phone] Ghazal Best LCSW [address] [facility] [place] [address] 12/01/2023 9:00 AM EDT Nurse Only Ancillary 1st Floor, [address] [place] [address] [place], Nurse Harlan 21 [facility] [place] [address] 12/13/2023 9:20 AM EDT Office Visit Nutrition & Weight Management, [facility] 132 [facility] [place] [address] Martine Mcelroy PA-C 132 [facility] [place] [address] 12/13/2023 10:00 AM EDT Nutrition Services Nutrition & Weight Management, [facility] 132 [facility] [place] [address] Perla Torres RDN 132 [facility] [place] [address] 12/27/2023 9:00 AM EDT Office Visit Psychiatry, [address] [place] [address] Siomara Cole CRNP 200 [place] [address] 12/29/2023 10:13 AM EDT Hospital Encounter OR [facility], Operating Room, [facility] - 4th Floor [address] [place] [address] Cristiano Alaniz, DO [address] [place] [address] 12/29/2023 10:13 AM EDT - 12/29/2023 10:56 AM EDT Surgery OR [facility], Operating Room, [facility] - 4th Floor [address] [place] [address] Cristiano Alaniz, DO [address] [place] [address] COLONOSCOPY FLEXIBLE PROXIMAL DIAGNOSTIC 01/16/2024 12:00 PM EDT Office Visit [facility] [address] [place] [address] Sarah Saavedra PA-C 21 [place] [address] 02/02/2024 10:40 AM EDT Office Visit Interventional Pain Ctr Angelia Ayala [address] [place] [address] Traci Ricardo MD 400 [facility] [place] [address] 03/01/2024 11:20 AM EDT Office Visit Neurology [facility] 200 [facility] [place] [address] Maureen Bowie MD 200 [facility] [place] [address] 03/05/2024 9:30 AM EDT Office Visit [facility] Pain Ctr Angelia Ayala [address] [place] [address] Devon Damon PARosaliaC [address] [place] [address] Scheduled Procedures Name Priority Associated Diagnoses Date/Ti me COLONOSCOPY FLEXIBLE PROXIMAL DIAGNOSTIC RLQ abdominal pain Constipation, unspecified constipation type Abnormal CT of the abdomen 12/29/2023 10:13 AM EDT Health Maintenance Due Date Last Done Comments DXA Scan 07/28/2024 07/28/2021 Diabetes Screening 11/01/2026 11/02/2023, 0 10/29/2023, 10/12/2023, Additional history exists DTaP,Tdap,and Td Vaccines (8 [...] this encounter Medical Devices Implanted Type Area County Assessor Device Identifier Shelf Expiration Date Model / Serial / Lot Plate Small Mtpj - [id number] Implanted:Qty: 1 on 11/15/2017 by Cristobal Calvillo MD [place] [facility] Left: Foot / / Screw Locking 2.7x14mm - [id number] Implanted:Qty: 1 on 11/15/2017 by Cristobal Calvillo MD [place] [facility] Left: Foot / / 2.7 X 16mm Locking Screw Implanted:Qty: 2 on 11/15/2017 by Cristobal Calvillo MD at [facility] Left: Foot [employer] / / 2.7 X 20 Locking Screw Implanted:Qty: 1 on 11/15/2017 by Cristobal Calvillo MD at [facility] Left: Foot [employer] / / 2.7 X 18mm Locking Screw Implanted:Qty: 1 on 11/15/2017 by Cristobal Calvillo [place] [facility] [place]: Foot [employer] / / Screw Locking 2.7x10mm - [id number] Implanted:Qty: 1 on 11/15/2017 by Cristobal Calvillo MD [place] [facility] Left: Foot [employer] / / 4.0mm X 44 Mm Compression Screw Implanted:Qty: 1 on 10/09/2018 by Bao Hernández MD [place] [facility] Left: Foot AR-8740-44 H / / Description:Implant from set 2.5x30 Compression Screw Implanted:Qty: 1 on 10/09/2018 by Bao Hernández MD at [place] [facility] Left: Foot [employer] AR-8725-30 H / / Screw [employer] [id number] - [id number] Implanted:Qty: 2 on 02/01/2022 by Bao Hernández MD at [place] [facility] Right: Toe EXACTECH [id number] / / Plate Mtpj - [id number] Implanted:Qty: 1 on 02/01/2022 by Bao Hernández MD at [place] [facility] Right: Foot [employer]ECH [id number] / / Screw Locking 2.7x10mm - [id number] Implanted:Qty: 2 on 02/01/2022 by Bao Hernández MD at [place] [facility] Right: Foot [employer] / / Screw Locking 2.7x12mm - [id number] Implanted:Qty: 3 on 02/01/2022 by Bao Hernández MD at [place] [facility] Right: Foot [employer] / / Screw Locking 2.7x14mm - [id number] Implanted:Qty: 1 on 02/01/2022 by Bao Hernánedz MD at [place] [facility] Right: Foot [employer] / / Screw [employer] 2.5tyr02kn - [id number] Implanted:Qty: 1 on 02/01/2022 by Bao Hernández MD at [place] [facility] Right: Toe EXACTECH [id number] / / Port Implant W/8f Poly Cath - [id number] Implanted:Qty: 1 on 06/02/2022 by Lawrence Cat, DO at OR [facility] Right: Chest CR BARD : PERIPHERAL VASCULAR [id number] 05/12/2023 [id number] / / [id number] documented as of this encounter Visit Diagnoses Diagnosis Yeast vaginitis- Primary Candidiasis of vulva and vagina RLQ abdominal pain Abdominal pain, right lower quadrant Constipation, unspecified constipation type Abnormal CT of the abdomen Nonspecific (abnormal) findings on radiological and other examination of abdominal area, including retroperitoneum documented in this encounter Advance Directives Documents on File Type Date Recorded Patient General Education Instructor Expl anation POLST 12/03/2020 POLST PENNSYLVA ROSA [...] Agent Relationship Communication Nirosana Mancini Grandparent [facility] Care Agent Andria Addison Mother Emergency Contact Care Teams Mortuary Technician Relationship Specialty Start Date End Date Sarah Saavedra PA-C 21 [facility] [place] [address] PCP - General Physician Plasma Cutting Machine Operator 09/06/23 documented as of this encounter
--- OUTSIDE RECORDS SUMMARY | 2023-11-11 06:52 | External Medical Summary | Summary of Care ---
Author Name Unknown Organization [facility] Address [address] [place] [address] Phone [phone] Care Team Providers Care Timber Hewer Name Role Phone Sarah Saavedra PA-C Primary Care Provider [phone] [phone] Reason for Visit * Reason Onset Date Comments Medication Problem 11/06/2023 Encounter Details Date Type Department Care Team ([facility] st Contact Info) Description 11/06/2023 Telephone [facility] Emergency Department ([facility]) [address] [place] [address] Tri Menard PA-C [address] [place], [place] [id number] Medication Problem Allergies Active Allergy Reactions Criticality Noted [...] said itching Latex Itching 09/26/2013 Linezolid 10/23/2014 Painter Other (Please comment) High 12/29/2014 Became unresponsive [...] attention. [email or web address]://[email or web address] .com/[email or web address]?v=[email or web address] 1 Each 3 4 Active [...] Ajovy 225 MG/1.5ML Subcutaneous Solution Prefilled Syringe (Fremanezumab-[facility] ) Inject 1.5 mL under the skin [...] and 1 Tablet before bedtime. 20 Tablet 4 Active Amoxicillin-Pot Clavulanate 875-125 MG Oral Tablet (Augmentin) Take 1 Tablet by mouth in the morning and 1 Tablet before bedtime. Do all this for 10 days. 20 Tablet 4 11/06/19 24 Discontinu ed(Refill) Hospital, Clinic, or Other Facility Administered Medication Ordered Dose Route Frequency Start Date End Date Status vitamin b-12 (Cyanocobalamin) inj 1,000 mcgIndications:S/P gastric bypass 1000 mcg IM [id number] 08/30/2023 06/03/2026 Active documented as of this [...] episo de depressed, severe, w/psychotic features 05/03/2022 jail current use of anticoagulant therapy 0 08/28/2021 Recurrent chest pain 07/31/2021 Last Assessment & Plan: Referred to cardiology for workup--seen in Jul. [place] atypical for ACS. ED workup neg for [...] & Plan: Primary [facility] C/o LE weakness and acute/chronic low back pain. Lumbar spine MRI reportedly performed @ [facility], not available for review Pt denies receiving steroid injections D/C IV dilaudid. Resume PO hydromorphone 4mg in setting of subjected acute on chronic low back pain, foot pain and now chest pain Encourage use of tylenol 1000mg or ibuprofen 600mg PRN Chronic suprapubic catheter 05/31/2014 Overview: Placed 05/26 @ [facility] by interventional radiology for urinary retention and [...] injections. Did not help. For discectomy at [facility] 08/31/06. Had subsequent MRSA graft Remove rods [...] 01/23: sees Dr. Mock (spine surgeon) @ [facility] 10/24: lumbar spinal surgery by Dr. Bob [...] a contraindication to starting her on opioids." [facility] discharge 10/04/15: patient exhibiting behavior of narcotic dependency (requesting escalation of IV dilaudid) Weakness of both upper extremities 08/21/2015 12/12/2019 Generalized weakness 03/01/2015 018 Chronic back pain 03/01/2015 03/03/2022 Paraplegia 02/19/2015 03/25/2016 MEDICATION USE AGREEMENT 06/07/2014 Overview: Pain contract established with [facility] ED 05/26 - give valium [...] 01/04/2023 Overview: Cysto neg 05/21/13. Following with [facility] urology Miri Dixon BILLY as of 09/26/2013. Resolved s/p laminectomy L4-S1 October 2013 @ [place] [address] Heard. Last Assessment & Plan: [...] wellbutrin 03/27: followed by Mauricio THOMPSON @ [facility] ADVANCE DIRECTIVE INFORMATION 11/17/2004 08/06/2022 Overview: No, Advance Directive brochure offered , patient declined. Allergic rhinitis 11/24/2001 11/30/2018 Overview: zyrtec Fatty liver 08/06/2022 Chronic sinusitis 11/30/2018 Overview: frequent documented as of this encounter (statuses as of 11/06/2023) Immunizations Name Administration Dates Next Due COVID-19 mRNA, LNP-s, No Pre serve, 2-Dose Series ([employer]) 06/25/2021,12/13/2020,11/15/2020 COVID-19, MRNA-LNP, 23-24, P F, 30 MCG/0.3 mL, 12 YRS AND ABOVE, IM (PFIZER-Comirnaty) 03/29/2023 Covid-19, Mrna, Lnp-s, Pf, B ivalent, 30 Mcg, IM, 12 yrs and above (Pfizer) 06/17/2022 H1N1 2009 Influenza, IM 05/27/2009 Pneumococcal Conjugate Vacci ne, 20-valent ([id number]) 12/15/2021 Pneumococcal Polysaccharide PPV23 (Pneumovax) 05/01/2008 Seasonal [...] (15 years old or older) Yes 07/08/19 24 Cognitive Status Response Date of Assessm ent Because of a physical, menta l, or emotional condition, do you have serious difficulty concentrating, remembering, or making decisions? (5 years old or older) No 07/08/2023 documented as of this encounter Plan of Treatment Upcoming Encounters Date Type Department Care Team (Late st Contact Info) Description 11/24/2023 9:00 AM EDT Therapy Psychology, [address] [phone] Ghazal Best LCSW [facility] [place] [address] 11/30/2023 8:40 AM EDT Nurse Only Ancillary 1st Floor, [address] [place] [address] [place], Nurse [address] [place] [address] 12/27/2023 9:00 AM EDT Office Visit Psychiatry, [place] [address] [place], BILLY [place] [facility] [address] 12/29/2023 10:13 AM EDT Hospital Encounter OR [facility], Operating Room, [facility] - 4th Floor [address] [place] [address] Cristiano Alaniz, DO [address] [place] [address] 12/29/2023 10:13 AM EDT - 12/29/2023 10:56 AM EDT Surgery OR [facility], Operating Room, [facility] - 4th Floor [address] [place] [address] Cristiano Alaniz, DO [address] [place] [address] COLONOSCOPY FLEXIBLE PROXIMAL DIAGNOSTIC 01/16/2024 12:00 PM EDT Office Visit [facility], [place] 21 [place] [address] Sarah Saavedra PA-C 21 [place] [address] 02/02/2024 10:40 AM EDT Office Visit Interventional Pain Ctr [place] [address] [place] [address] Traci Ricardo MD 400 [facility] [place] [address] 03/01/2024 11:20 AM EDT Office Visit Neurology [facility] 200 [place] [address] Maureen Bowie MD 200 [place] [address] 03/05/2024 9:30 AM EDT Office Visit [facility] [place] [address] [place] [address] Devon Damon PA-C 16 [place] [address] Scheduled Procedures Name Priority Associated Diagnoses Date/Ti [...] this encounter Medical Devices Implanted Type Area Residential Sales Device Identifier Shelf Expiration Date Model / Serial / Lot Plate Small Mtpj - [id number] Implanted:Qty: 1 on 11/15/2017 by Cristobal Calvillo MD at OR [facility] Left: Foot / / Screw Locking 2.7x14mm - [id number] Implanted:Qty: 1 on 11/15/2017 by Cristobal Calvillo MD at OR [facility] Left: Foot / / 2.7 X 16mm Locking Screw Implanted:Qty: 2 on 11/15/2017 by Cristobal Calvillo MD at OR [facility] Left: Foot [employer] [id number] / / 2.7 X 20 Locking Screw Implanted:Qty: 1 on 11/15/2017 by Cristobal Calvillo MD at OR [facility] Left: Foot [employer] / / 2.7 X 18mm Locking Screw Implanted:Qty: 1 on 11/15/2017 by Cristobal Calvillo MD at OR [facility] Left: Foot [employer] / / Screw Locking 2.7x10mm - [id number] Implanted:Qty: 1 on 11/15/2017 by Cristobal Calvillo MD at OR [facility] Left: Foot [employer] [id number] / / 4.0mm X 44 Mm Compression Screw Implanted:Qty: 1 on 10/09/2018 by Bao Hernández MD at OR [facility] Left: Foot AR-8740-44 H / / Description:Implant from set 2.5x30 Compression Screw Implanted:Qty: 1 on 10/09/2018 by Bao Hernández MD at OR [facility] Left: Foot [employer] AR-8725-30 H / / Screw [employer] [id number] - [id number] Implanted:Qty: 2 on 02/01/2022 by Bao Hernández MD at OR [facility] Right: Toe EXACTECH 1079-1703 / / Plate Mtpj - [id number] Implanted:Qty: 1 on 02/01/2022 by Bao Hernández MD at OR [facility] Right: Foot EXACTECH [id number] / / Screw Locking 2.7x10mm - [id number] Implanted:Qty: 2 on 02/01/2022 by Bao Hernández MD at OR [facility] Right: Foot EX[employer]ECH 9384-1720 / / Screw Locking 2.7x12mm - [id number] Implanted:Qty: 3 on 02/01/2022 by Bao Hernández MD at OR [facility] Right: Foot EXACTECH [id number] / / Screw Locking 2.7x14mm - [id number] Implanted:Qty: 1 on 02/01/2022 by Bao Hernández MD at OR [facility] Right: Foot EXACTECH 6079-2278 / / Screw [employer] 2.7kno33dl - [id number] Implanted:Qty: 1 on 02/01/2022 by Bao Hernández MD at OR [facility] Right: Toe EXACTECH 2808-3547 / / Port Implant W/8f Poly Cath - [id number] Implanted:Qty: 1 on 06/02/2022 by Lawrence Cat DO at OR [facility] Right: Chest CR BARD : PERIPHERAL VASCULAR [id number] 05/12/2023 [id number] / / [id number] documented as of this encounter Advance Directives Documents on File Type Date Recorded Patient Supervisor Fish Bait Processing Expl anation POL 12/03/2020 POLST KARLO LEE [...] Name Relationship Healthcare Agent Relationship Communication Ni Yazmintesfaye Grandparent [facility] Health Care Agent Andria Addison Mother Emergency Contact Care Teams Timber Hewer Relationship Specialty Start Date End Date Sarah Saavedra PA-C [address] [place] [address] PCP - General Physician Roll Handler 09/06/23 documented as of this encounter
--- OUTSIDE RECORDS SUMMARY | 2023-11-11 06:52 | External Medical Summary ---
Author Name Unknown Address Unknown Organization K1F:[facility] - [address] [place] [address] Laboratory Report Ordering Provider Test Date Status TADEO NAJERA 11/06/2023 09:30:00 Final Observation Date Value Abnormality Reference (Units ) Status WBC, Total 11/06/2023 09:30:00 7.34 4.00-10.80 (K/uL) Final RBC 11/06/2023 09:30:00 4.36 3.85-5.15 (M/uL) Final Hemoglobin 11/06/2023 09:30:00 13.2 12.0-15.3 (g/dL) Final HCT 11/06/2023 09:30:00 39.7 36.0-45.2 (%) Final MCV 11/06/2023 09:30:00 91.1 81.5-97.5 (fL) Final MCH 11/06/2023 09:30:00 30.3 27.0-34.0 (pg) Final MCHC 11/06/2023 09:30:00 33.2 32.0-36.0 (g/dL) Final RDW 11/06/2023 09:30:00 14.4 11.5-15.5 (%) Final Platelets 11/06/2023 09:30:00 277 140-400 (K/uL) Final MPV 11/06/2023 09:30:00 9.5 6.6-11.1 (fL) Final Nucleated erythrocytes/100 leukocytes [Ratio] in Blood by Automated count 11/06/2023 09:30:00 0 <=0 (/100 WBCs) Final Performing Location [facility] - [address] [place] [address]
--- OUTSIDE RECORDS SUMMARY | 2023-11-11 06:52 | External Medical Summary ---
Author Name Unknown Address Unknown Organization K1F:LABORATORY [facility] - [facility] [place] Alberto [place] [address] Laboratory Report Ordering Provider Test Date Status TADEO NAJERA 11/06/2023 08:01:38 Final Observation Date Value Abnormality Reference (Units ) Status RBC, Urine 11/06/2023 08:01:38 6-9 Abnormal 0-2 (/HPF) Final WBC, Urine 11/06/2023 08:01:38 20-29 Abnormal 0-2 (/HPF) Final Bacteria [#/area] in Urine sediment by Microscopy high power field 11/06/2023 08:01:38 51-100 Abnormal 0-25 (/HPF) Final Leukocyte clumps [#/area] in Urine sediment by Microscopy high power field 11/06/2023 08:01:38 Present Abnormal None (/HPF) Final Performing Location LABORATORY [facility] - [address] [place] [address]
--- OUTSIDE RECORDS SUMMARY | 2023-11-11 06:52 | External Medical Summary ---
Author Name Unknown Address Unknown Organization K1F:LABORATORY [facility] - [address] [facility] [place] [address] Laboratory Report Ordering Provider Test Date Status TADEO NAJERA 11/06/2023 08:27:00 Final Observation Date Value Abnormality Reference (Units ) Status BUN 11/06/2023 08:27:00 10 6-20 (mg/dL) Final Creatinine 11/06/2023 08:27:00 0.6 0.5-1.0 (mg/dL) Final Glomerular filtration rate/1.73 sq M.predicted [Volume Rate/Area] in Serum, Plasma or Blood by Creatinine-based formula (CKD-EPI) 11/06/2023 08:27:00 >90 >=60 (mL/min) Final eGFR is calculated based on the CKD-EPI 2020 equation Sodium 11/06/2023 08:27:00 139 135-146 (m mol/L) Final Potassium 11/06/2023 08:27:00 4.5 3.5-5.1 (m mol/L) Final Cl 11/06/2023 08:27:00 108 Above high normal 98 -107 (mmol/L) Final CO2 11/06/2023 08:27:00 18 Below low normal 22- 32 (mmol/L) Final Anion gap 11/06/2023 08:27:00 13 7-15 (mmol /L) Final Glucose 11/06/2023 08:27:00 105 70-120 (mg /dL) Final Albumin 11/06/2023 08:27:00 3.5 Below low normal 3.8 -5.0 (g/dL) Final AST (Aspartate aminotransferase) 11/06/2023 08:27:00 26 10-35 (U/L) Fin al Result may be falsely elevat ed due to hemolysis. Alk Phos 11/06/2023 08:27:00 73 35-130 (U/ L) Final Bilirubin, Total 11/06/2023 08:27:00 0.2 <=1 .2 (mg/dL) Final Calcium 11/06/2023 08:27:00 9.1 8.4-10.2 ( mg/dL) Final Protein 11/06/2023 08:27:00 6.4 6.0-8.3 (g /dL) Final ALT (Alanine aminotransferase) 11/06/2023 08:27:00 17 10-35 (U/L) Final Performing Location LABORATORY [facility] - [facility] [place] [address]
--- OUTSIDE RECORDS SUMMARY | 2023-11-11 06:52 | External Medical Summary ---
Author Name Unknown Address Unknown Organization K1F:LABORATORY [facility] - [address] [place] [address] Laboratory Report Ordering Provider Test Date Status TADEO NAJERA 11/06/2023 08:01:38 Final Observation Date Value Abnormality Reference (Units ) Status Color of Urine by Auto 11/06/2023 08:01:38 Yellow Light Yellow, Yellow, Dark Yellow Final Clarity, Urine 11/06/2023 08:01:38 Clear Clear Final Glucose [Mass/volume] in Urine by Automated test strip 11/06/2023 08:01:38 Negative Negative (mg/dL) Final Bilirubin.total [Presence] in Urine by Automated test strip 11/06/2023 08:01:38 Negative Negative Final Ketones [Mass/volume] in Urine by Automated test strip 11/06/2023 08:01:38 Negative Negative (mg/dL) Final Specific gravity, Urine 11/06/2023 08:01:38 1.012 1.003-1.030 Final Hemoglobin [Presence] in Urine by Automated test strip 11/06/2023 08:01:38 Small Abnormal Negative Final pH, Urine 11/06/2023 08:01:38 7.5 5.0-7.5 (Units) Final Protein [Mass/volume] in Urine by Automated test strip 11/06/2023 08:01:38 30 Abnormal Negative (mg/dL) Final Urobilinogen [Mass/volume] in Urine by Automated test strip 11/06/2023 08:01:38 0.2 0.2, 1.0 (mg/dL) Final Nitrite [Presence] in Urine by Automated test strip 11/06/2023 08:01:38 Negative Negative Final Leukocyte esterase [Presence] in Urine by Automated test strip 11/06/2023 08:01:38 Moderate Abnormal Negative Final Performing Location LABORATORY [facility] - [address] [facility] [place] [address]
--- OUTSIDE RECORDS SUMMARY | 2023-11-11 06:52 | External Medical Summary ---
Author Name Unknown Address Unknown Organization K01:LABORATORY [facility] - [address] [facility] [address] Laboratory Report Ordering Provider Test Date Status TADEO NAJERA 11/06/2023 08:01:38 Final Observation Date Value Abnormality Reference (Units ) Status Bacteria identified in Specimen by Culture 11/06/2023 08:01:38 [id number]^ENTEROC OCCUS SPECIES Abnormal Final >100,000 colonies/mL Enteroc occus species Performing Location LABORATORY [facility] - [address] [place] [address] Ordering Provider Test Date Status TADEO NAJERA 11/06/2023 08:01:38 Final Observation Date Value Abnormality Reference (Units ) Status Ampicillin 11/06/2023 08:01:38 <=2 Susceptible Final Nitrofurantoin susceptibility 11/06/2023 08:01:38 <=16 Susceptible Final Tetracyclinesusceptibility 11/06/2023 08:01:38 >=16 Resistant Final Vancomycinsusceptibility 11/06/2023 08:01:38 1 Susceptible Final Test: Culture, Urine, Quanti tative
Specimen Source: Urine, Catheter
Specimen Type: Urine
Specimen Date: 11/06/2023 08
Result Date: 11/08/2023 0939
Result Status: Final result
Abnormal: Yes
Resulting Lab: LABORATORY [facility]
[address]
[place] [address]

CULTURE

>100,000 colonies/mL Enterococcus species (Abnormal)

SUSCEPTIBILITY

Enterococcus
species
METHOD MICROBROTH
DILUTIONS

AMPICILLIN <=2 Susceptible
NITROFURANTOIN <=16 Susceptible
TETRACYCLINE >=16 Resistant
VANCOMYCIN 1 Susceptible

null Performing Location LABORATORY [facility] - [address] [facility] [address]
--- OUTSIDE RECORDS SUMMARY | 2023-11-11 06:52 | External Medical Summary ---
Author Name Unknown Address Unknown Organization K1F:LABORATORY [facility] - [address] [facility] [place] [address] Laboratory Report Ordering Provider Test Date Status TADEO NAJERA 11/06/2023 09:30:00 Final Observation Date Value Abnormality Reference (Units ) Status SYNC LEUKOCYTES IN BLOOD BY AUTOMATED COUNT 11/06/2023 09:30:00 7.34 4.00-10.80 (K/uL) Final Segs 11/06/2023 09:30:00 64.8 40.0-75.0 (%) Final Lymphs % 11/06/2023 09:30:00 24.9 18.0-42.0 (%) Final Monos 11/06/2023 09:30:00 6.9 1.0-11.0 (%) Final Eosinophils 11/06/2023 09:30:00 2.0 0.0-6.0 (%) Final Basos 11/06/2023 09:30:00 1.0 0.0-2.0 (%) Final Immature Granulocyte, Percent 11/06/2023 09:30:00 0.4 0.0-2.0 (%) Final Absolute Segs 11/06/2023 09:30:00 4.75 1.80-7.70 (K/uL) Final Lymphs, absolute 11/06/2023 09:30:00 1.83 1.00-4.80 (K/ul) Final Monos, Abs 11/06/2023 09:30:00 0.51 0.00-1.10 (K/uL) Final Eos, Abs 11/06/2023 09:30:00 0.15 0.00-0.70 (K/uL) Final Basos, Abs 11/06/2023 09:30:00 0.07 0.00-0.20 (K/uL) Final Immature Granulocytes, Number 11/06/2023 09:30:00 0.03 0.00-0.20 (K/uL) Final Performing Location LABORATORY [facility] - [address] [place] [address]
--- OUTSIDE RECORDS SUMMARY | 2023-11-11 06:53 | External Medical Summary | Summary of Care ---
Author Name Unknown Organization [facility] Address [address] [place] [address] Phone [phone] Care Team Providers Care Director Marketing Name Role Phone Sarah Saavedra PA-C Primary Care Provider [phone] Reason for Visit * Reason Comments Acute Encounter Details Date Type Department Care Team (Late st Contact Info) Description 11/03/2023 3:40 PM EDT Telemedicine [facility] [address] [facility] [place] [address] Cydney Moe MD [address] [place] [address] Bladder spasm*; Cervicalgia; Lumbar radicular pain Allergies Active Allergy Reactions Criticality Noted Date [...] said itching Latex Itching 09/26/2013 Linezolid 10/23/2014 [place] Other (Please comment) High 12/29/2014 Became unresponsive [...] Ajovy 225 MG/1.5ML Subcutaneous Solution Prefilled Syringe (Fremanezumab[facility] ) Inject 1.5 mL under the [...] November 08, 2023. 23 Tablet 4 Active Acetaminophen-Code ine 300-30 MG Oral TabletIndications: Cervicalgia,Lumbar radicular pain Take 1 Tablet by mouth 3 times a day as needed for Pain, Severe. On Physical Therapy days may take one extra tablet as needed for severe pain. 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 [place] atypical for ACS. ED workup neg for [...] & Plan: Primary reason for transfer from [facility] to [facility] rehab. C/o LE weakness and acute/chronic low back pain. Lumbar spine MRI reportedly performed @ [facility], not available for review Pt denies receiving steroid injections D/C IV dilaudid. Resume PO hydromorphone 4mg in setting of subjected acute on chronic low back pain, foot pain and now chest pain Encourage use of tylenol 1000mg or ibuprofen 600mg PRN Chronic suprapubic catheter 05/31/2014 Overview: Placed 05/26 @ [facility] by interventional radiology for urinary retention and [...] injections. Did not help. For discectomy at [facility] 08/31/06. Had subsequent MRSA graft Remove rods [...] 01/23: sees Dr. Mock (spine surgeon) @ [facility] 10/24: lumbar spinal surgery by Dr. Bob [...] contraindication to starting her on opioids." [facility] discharge 10/04/15: patient exhibiting behavior of narcotic dependency (requesting escalation of IV dilaudid) Weakness of both upper extremities 08/21/2015 12/12/2019 Generalized weakness 03/01/2015 018 Chronic back pain 03/01/2015 03/03/2022 Paraplegia 02/19/2015 03/25/2016 MEDICATION USE AGREEMENT 06/07/2014 Overview: Pain contract established with [facility] ED 05/26 - give valium 5 [...] 01/04/2023 Overview: Cysto neg 05/21/13. Following with [facility] urology Miri Dixon SURFACE SUPERVISOR as of 09/26/2013. Resolved s/p laminectomy L4-S1 October [address] @ [place] [address] Heard. Last Assessment & Plan: [...] wellbutrin 03/27: followed by Mauricio THOMPSON @ [facility] ADVANCE DIRECTIVE INFORMATION 11/17/2004 08/06/2022 Overview: No, Advance Directive brochure offered , patient declined. Allergic rhinitis 11/24/2001 11/30/2018 Overview: zyrtec Fatty liver 08/06/2022 Chronic sinusitis 11/30/2018 Overview: frequent documented as of this encounter (statuses as of 11/04/2023) Immunizations Name Administration Dates Next Due COVID-19 mRNA, LNP-s, No Pre serve, 2-Dose Series (ShareTracker) 06/25/2021,12/13/2020,11/15/2020 COVID-19, MRNA-LNP, 23-24, P F, 30 MCG/0.3 mL, 12 YRS AND ABOVE, IM (Sonics-Comirnat) 03/29/2023 Covid-19, Mrna, Lnp-s, Pf, B ivalent, 30 Mcg, IM, 12 yrs and above (ShareTracker) 06/17/2022 H1N1 2009 Influenza, IM 05/27/2009 Pneumococcal Conjugate Vacci ne, 20-valent ([id number]) 12/15/2021 Pneumococcal Polysaccharide PPV23 (Pneumovax) 05/01/2008 Seasonal [...] Progress Notes * Cydney Moe MD - 11/03/2023 3:18 PM EDT Images from the original note were not included. History of Present Illness Gricel Mancini is a 38 year old female that presents for No chief complaint on file. Acute visit. Patient needs pain medication refill - Tylenol 3, gets weekly (she will see urology next ). "Bladder pain is severe since Botox injection". Reports that suprapubic cath is draining well now, bladder pain is worse if moving cath. Patient was seen in ED yesterday, note reviewed, no medication change. Patient is asking for two Percocet pills as needed for severe pain. Physical Exam There were no vitals filed for this visit. I have reviewed the following results: None Assessment and Plan 1. Cervicalgia - Acetaminophen-Codeine 300-30 MG Oral Tablet; Take 1 Tablet by mouth 3 times a day as needed for Pain, Severe. On Physical Therapy days may take one extra tablet as needed for severe pain. Do not start before November 08, 2023. Dispense: 23 Tablet; Refill: 0 2. Lumbar radicular pain - Acetaminophen-Codeine 300-30 MG Oral Tablet; Take 1 Tablet by mouth 3 times a day as needed for Pain, Severe. On Physical Therapy days may take one extra tablet as needed for severe pain. Do not start before November 08, 2023. Dispense: 23 Tablet; Refill: 0 - refill sent 3. Bladder spasm - urology as scheduled Wrap-Up As needed Time: I spent a total of 10-19 minutes (exact time 8 mins) on the date of service in preparation, delivery, and documentation of the care provided to Gricel Mancini excluding any time spent in the performance of separately billed services. Telemedicine: Patient location: HOME. I was in a hospital or clinic location. After connecting through [employer],patient was verified with two unique identifiers. 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 that this [...] Description 11/22/2023 1:00 PM EDT Therapy Psychology, [address] [id number] Ghazal Best LCSW [address] [facility] [place] [address] 12/01/2023 9:00 AM EDT Nurse Only Ancillary 1st Floor, [address] [place] [address] [place], Nurse Harlan 21 [facility] [place] [address] 12/13/2023 9:20 AM EDT Office Visit Nutrition & Weight Management, [facility] [address] [facility] [place] [address] Martine Mcelroy PA-C [address] [facility] [place] [address] 12/13/2023 10:00 AM EDT Nutrition Services Nutrition & Weight Management, [facility] 132 [facility] [place] [address] Perla Torres RDN [address] [facility] [place] [address] 12/27/2023 9:00 AM EDT Office Visit Psychiatry, [place] [address] [address] [place] [address] Siomara Cole CRNP [address] [facility] [place] [address] 12/29/2023 10:13 AM EDT Hospital Encounter [facility], Operating Room, Main Hospital - 4th Floor 400 [place] [address] Cristiano Alaniz, DO [address] [place] [address] 12/29/2023 10:13 AM EDT - 12/29/2023 10:56 AM EDT Surgery OR [facility], Operating Room, [facility] - 4th Floor [address] [facility] [place] [address] Cristiano Alaniz, DO [address] [place] [address] COLONOSCOPY FLEXIBLE PROXIMAL DIAGNOSTIC 01/16/2024 12:00 PM EDT Office Visit [facility] [address] [place] [address] Sarah Saavedra PA-C [address] [place] [address] 02/02/2024 10:40 AM EDT Office Visit [facility] Angelia Ayala [address] [place] [address] Traci Ricardo MD [address] [place] [address] 03/01/2024 11:20 AM EDT [facility] [address] [place] [address] Maureen Bowie MD [address] [place] [address] 03/05/2024 9:30 AM EDT Office Visit [facility]tr Angelia Ayala [address] [place] [address] Devon Damon PA-C [address] [place], [place] [id number] Scheduled Procedures Name Priority Associated Diagnoses Date/Ti [...] this encounter Medical Devices Implanted Type Area Cardiology Clinical Consultant Device Identifier Shelf Expiration Date Model / Serial / Lot Plate Small Mtpj - [id number] Implanted:Qty: 1 on 11/15/2017 by Cristobal Calvillo MD at OR [facility] Left: Foot / / Screw Locking 2.7x14mm - [id number] Implanted:Qty: 1 on 11/15/2017 by Cristobal Calvillo MD at OR [facility] Left: Foot / / 2.7 X 16mm Locking Screw Implanted:Qty: 2 on 11/15/2017 by Cristobal Calvillo MD at [facility] Left: Foot [employer] / / 2.7 X 20 Locking Screw Implanted:Qty: 1 on 11/15/2017 by Cristobal Calvillo MD at [facility] Left: Foot [employer] / / 2.7 X 18mm Locking Screw Implanted:Qty: 1 on 11/15/2017 by Cristobal Calvillo MD at OR [facility] Left: Foot [employer] / / Screw Locking 2.7x10mm - [id number] Implanted:Qty: 1 on 11/15/2017 by Cristobal Calvillo MD at OR [facility] Left: Foot [employer] / / 4.0mm X 44 Mm Compression Screw Implanted:Qty: 1 on 10/09/2018 by Bao Hernández MD at OR [facility] Left: Foot AR-8740-44 H / / Description:Implant from set 2.5x30 Compression Screw Implanted:Qty: 1 on 10/09/2018 by Bao Hernández MD at OR [facility] Left: Foot [employer] AR-8725-30 H / / Screw [employer] 2.9yhq35dm - [id number] Implanted:Qty: 2 on 02/01/2022 by Bao Hernández MD at OR [facility] Right: Toe [employer] [id number] / / Plate Mtpj - [id number] Implanted:Qty: 1 on 02/01/2022 by Bao Hernández MD at OR [facility] Right: Foot [employer] 1419-6807 / / Screw Locking 2.7x10mm - [id number] Implanted:Qty: 2 on 02/01/2022 by Bao Hernández MD at OR [facility] Right: Foot [employer] [id number] / / Screw Locking 2.7x12mm - [id number] Implanted:Qty: 3 on 02/01/2022 by Bao Hernández MD at OR [facility] Right: Foot [employer] / / Screw Locking 2.7x14mm - [id number] Implanted:Qty: 1 on 02/01/2022 by Bao Hernández MD at OR [facility] Right: Foot [employer] / / Screw [employer] 2.4pai14dp - [id number] Implanted:Qty: 1 on 02/01/2022 by Bao Hernández MD at OR [facility] Right: Toe [employer] [id number] / / Port Implant W/8f Poly Cath - [id number] Implanted:Qty: 1 on 06/02/2022 by Lawrence Cat, DO at OR [facility] Right: Chest CR BARD : PERIPHERAL VASCULAR [id number] 05/12/2023 [id number] / / [id number] documented as of this encounter Visit Diagnoses Diagnosis Bladder spasm- Primary Other specified disorders of bladder Cervicalgia Lumbar radicular pain Thoracic or lumbosacral neuritis or radiculitis, unspecified RLQ abdominal pain Abdominal pain, right lower quadrant Constipation, unspecified constipation type Abnormal CT of the abdomen Nonspecific (abnormal) findings on radiological and other examination of abdominal area, including retroperitoneum documented in this encounter Advance Directives Documents on File Type Date Recorded 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
--- OUTSIDE RECORDS SUMMARY | 2023-11-11 06:53 | External Medical Summary | Summary of Care ---
Author Name Unknown Organization [facility] Address [address] [place] [address] Phone [phone] Care Team Providers Care Bundling Machine Operator Name Role Phone Sarah Saavedra PA-C Primary Care Provider [phone] [phone] Reason for Visit * Reason Onset Date Comments Medication Question 11/04/2023 Encounter Details Date Type Department Care Team ([facility] st Contact Info) Description 11/04/2023 Telephone [facility] 21 [facility] [place] [phone] Sarah Saavedra PA-C [address] [place] [address] Medication Question Allergies Active Allergy Reactions Criticality Noted Date [...] said itching Latex Itching 09/26/2013 Linezolid 10/23/2014 [place] Other (Please comment) High 12/29/2014 Became unresponsive [...] opioid overdose. Seek immediate medical attention. [email or web address].[email or web address] [email or web address]?[email or web address] AcI 1 Each 3 07/28/2023 Active Additional [...] Ajovy 225 MG/1.5ML Subcutaneous Solution Prefilled Syringe (Fremanezumab-[facility] ) Inject 1.5 mL under the [...] 1,000 mcgIndications:S/P gastric bypass 1000 mcg IM [id number] 08/30/2023 06/03/2026 Active documented as of this [...] episo de depressed, severe, w/psychotic features 05/03/2022 emt intermediate current use of anticoagulant therapy 0 08/28/2021 Recurrent chest pain 07/31/2021 Last Assessment & Plan: Referred to cardiology for workup--seen in Jul. [place] atypical for ACS. ED workup neg for [...] & Plan: Primary reason for transfer from [facility] to [facility] rehab. C/o LE weakness and acute/chronic low back pain. Lumbar spine MRI reportedly performed @ [facility], not available for review Pt denies receiving steroid injections D/C IV dilaudid. Resume PO hydromorphone 4mg in setting of subjected acute on chronic low back pain, foot pain and now chest pain Encourage use of tylenol 1000mg or ibuprofen 600mg PRN Chronic suprapubic catheter 05/31/2014 Overview: Placed 05/26 @ [facility] by interventional radiology for urinary retention and [...] disc without myelopathy 03/03/2006 Overview: Rigth L5-S1. [place] injections. Did not help. For discectomy at [facility] 08/31/06. Had subsequent MRSA graft Remove rods [...] 01/23: sees Dr. Mock (spine surgeon) @ [facility] 10/24: lumbar spinal surgery by Dr. Bob [...] starting her on opioids." [facility] discharge 10/04/15: patient exhibiting behavior of narcotic dependency (requesting escalation of IV dilaudid) Weakness of both upper extremities 08/21/2015 12/12/2019 Generalized weakness 03/01/2015 018 Chronic back pain 03/01/2015 03/03/2022 Paraplegia 02/19/2015 03/25/2016 MEDICATION USE AGREEMENT 06/07/2014 Overview: Pain contract established with [facility] ED 05/26 - give valium [...] 01/04/2023 Overview: Cysto neg 05/21/13. Following with [facility] urology Miri CERVANTES as of 09/26/2013. Resolved s/p laminectomy L4-S1 October 2013 @ [place] [address] Heard. Last Assessment & Plan: [...] wellbutrin 03/27: followed by Mauricio THOMPSON @ [facility] ADVANCE DIRECTIVE INFORMATION 11/17/2004 08/06/2022 Overview: No, Advance Directive brochure offered , patient declined. Allergic rhinitis 11/24/2001 11/30/2018 Overview: zyrtec Fatty liver 08/06/2022 Chronic sinusitis 11/30/2018 Overview: frequent documented as of this encounter (statuses as of 11/04/2023) Immunizations Name Administration Dates Next Due COVID-19 mRNA, LNP-s, No Pre serve, 2-Dose Series ([employer]) 06/25/2021,12/13/2020,11/15/2020 COVID-19, MRNA-LNP, 23-24, P F, 30 MCG/0.3 mL, 12 YRS AND ABOVE, IM ([employer]-Comirnat) 03/29/2023 Covid-19, Mrna, Lnp-s, Pf, B ivalent, 30 Mcg, IM, 12 yrs and above (Pfizer) 06/17/2022 H1N1 2009 Influenza, IM 05/27/2009 Pneumococcal Conjugate Vacci ne, 20-valent ([id number]) 12/15/2021 Pneumococcal Polysaccharide PPV23 (Pneumovax) 05/01/2008 Seasonal [...] encounter Miscellaneous Notes * Telephone Encounter - Deja Malik [facility] - 11/04/2023 10:39 AM EDT Provided codes from Telemed 11/04/23 Cervicalgia [M54.2] Lumbar radicular pain [M54.16] Thank you, Deja Malik PharmD, NIRMAL Clinical Pharmacist [facility] 11/04/23 10:39 AM [phone] * Telephone Encounter - Marni Perdomo PHARM Tech - 11/04/2023 10:37 AM EDT Patients pharmacy called here today stating that they need a dx code for oxycodone, warm transferred to kamila link Thank you, Marni Perdomo Print Manager I [facility] ([facility])(formerly Telepharmacy) 11/04/2023,10:38 AM' documented in this encounter Plan of Treatment Upcoming Encounters Date Type Department Care Team (Late st Contact Info) Description 11/22/2023 1:00 PM EDT Therapy [facility] [place] [facility] [phone] Ghazal Best LCSW 21 [address] [place] [address] 12/01/2023 9:00 AM EDT Nurse Only Ancillary 1st Floor, [place] 21 [place] [address] Emma, Nurse 21 [facility] MIC[place]EL [place]ares [address] 12/13/2023 9:20 AM EDT Office Visit Nutrition & Weight Management, [facility] 132 [address] [address] Martine Mcelroy PA-C [address] [place] [address] 12/13/2023 10:00 AM EDT Nutrition Services Nutrition & Weight Management, [facility] [address] [place] [address] Perla Torres RDN [address] [place] [address] 12/27/2023 9:00 AM EDT Office Visit Psychiatry, [place] 21 [place] [address] Cole, BILLY Lazcano [facility] [address] 12/29/2023 10:13 AM EDT Hospital Encounter OR GL, Operating Room, [facility] - 4th Floor [address] [place] [address] Cristiano Alaniz, DO [address] [place] [address] 12/29/2023 10:13 AM EDT - 12/29/2023 10:56 AM EDT Surgery OR [facility], Operating Room, [facility] - 4th Floor [address] [place] [address] Cristiano Alaniz, DO [address] [place] [address] COLONOSCOPY FLEXIBLE PROXIMAL DIAGNOSTIC 01/16/2024 12:00 PM EDT Office Visit Family Practice, [place] 21 [place] [phone] Sarah Saavedra PA-C [address] [place] [address] 02/02/2024 10:40 AM EDT Office Visit Interventional Pain Ctr Angelia Ayala 16 [place] [address] [facility] [place] [address] 03/01/2024 11:20 AM EDT Office Visit Neurology [facility] 200 [place] [address] Maureen Bowie MD 200 [facility] [id number] 03/05/2024 9:30 AM EDT Office Visit Interventional Pain Ctr [facility] [address] [place], [place] [phone] Devon Damon PA-C [address] [place] [address] Scheduled Procedures Name Priority Associated Diagnoses Date/Ti [...] this encounter Medical Devices Implanted Type Area Instrument Processing Tech Device Identifier Shelf Expiration Date Model / Serial / Lot Plate Small Mtpj - [id number] Implanted:Qty: 1 on 11/15/2017 by Cristobal Calvillo MD [place] [facility] Left: Foot [id number] / / Screw Locking 2.7x14mm - [id number] Implanted:Qty: 1 on 11/15/2017 by Cristobal Calvillo MD at [place] [facility] Left: Foot / / 2.7 X 16mm Locking Screw Implanted:Qty: 2 on 11/15/2017 by Cristobal Calvillo MD [place] [facility] Left: Foot [employer] [id number] / / 2.7 X 20 Locking Screw Implanted:Qty: 1 on 11/15/2017 by Cristobal Calvillo MD at [facility] Left: Foot [employer] [id number] / / 2.7 X 18mm Locking Screw Implanted:Qty: 1 on 11/15/2017 by Cristobal Calvillo MD at [place] [facility] Left: Foot [employer] [id number] / / Screw Locking 2.7x10mm - [id number] Implanted:Qty: 1 on 11/15/2017 by Cristobal Calvillo MD at [place] [facility] Left: Foot [employer] / / 4.0mm X 44 Mm Compression Screw Implanted:Qty: 1 on 10/09/2018 by Bao Hernández MD at [place] [facility] Left: Foot AR-8740-44 H / / Description:Implant from set 2.5x30 Compression Screw Implanted:Qty: 1 on 10/09/2018 by Bao Hernández MD at [place] [facility] Left: Foot [employer] AR-8725-30 H / / Screw [employer] 2.3ceu03qj - [id number] Implanted:Qty: 2 on 02/01/2022 by Bao Hernández MD at [place] [facility] Right: Toe [employer] 4096-8031 / / Plate Mtpj - [id number] Implanted:Qty: 1 on 02/01/2022 by Bao Hernández MD at [place] [facility] Right: Foot [employer] 2858-3077 / / Screw Locking 2.7x10mm - [id number] Implanted:Qty: 2 on 02/01/2022 by Bao Hernnádez MD at [place] [facility] Right: Foot [employer] / / Screw Locking 2.7x12mm - [id number] Implanted:Qty: 3 on 02/01/2022 by Bao Hernández MD at [place] [facility] Right: Foot [employer] / / Screw Locking 2.7x14mm - [id number] Implanted:Qty: 1 on 02/01/2022 by Bao Hernández MD at [place] [facility] Right: Foot [employer] / / Screw [employer] 2.6vkn65sh - [id number] Implanted:Qty: 1 on 02/01/2022 by Bao Hernández MD at [place] [facility] Right: Toe [employer] [id number] / / Port Implant W/8f Poly Cath - [id number] Implanted:Qty: 1 on 06/02/2022 by Lawrence Cat DO at OR [facility] Right: Chest CR BARD : PERIPHERAL VASCULAR [id number] 05/12/2023 [id number] / / [id number] documented as of this encounter Advance Directives Documents on File Type Date Recorded Patient Safe Deposit Attendant Expl anation POL 12/03/2020 POLST CHAIMA ROSA ORDERS FOR LIFE-SUSTAINING TREATMENT * Full [...] Agent Relationship Communication Nirosana Mancini Grandparent [facility] Health Care Agent Andria Addison Mother Emergency Contact Care Teams Bundling Machine Operator Relationship Specialty Start Date End Date Sarah Saavedra PA-C 21 [address] [phone] PCP - General Physician Vp Cardiovascular 09/06/23 documented as of this encounter
--- OUTSIDE RECORDS SUMMARY | 2023-11-11 06:53 | External Medical Summary | Summary of Care ---
Author Name Unknown Organization [facility] Address [address] [place] [address] Phone [phone] Care Team Providers Care Senior Integration Developer Name Role Phone Sarah Saavedra PA-C Primary Care Provider [phone] [phone] Reason for Visit * Reason Onset Date Comments Med Request 11/04/2023 Encounter Details Date Type Department Care Team ([facility] st Contact Info) Description 11/04/2023 Telephone [facility] 21 [facility] MICHAEL [place] [phone] Sarah Saavedra PA-C 21 [place] [address] Med Request Allergies Active Allergy Reactions [...] said itching Latex Itching 09/26/2013 Linezolid 10/23/2014 [place] Other (Please comment) High 12/29/2014 Became unresponsive [...] opioid overdose. Seek immediate medical attention. [email or web address] [email or web address] AcI 1 Each 3 07/28/2023 Active Additional [...] Ajovy 225 MG/1.5ML Subcutaneous Solution Prefilled Syringe (Fremanezumab-[facility] ) Inject 1.5 mL under the [...] 1,000 mcgIndications:S/P gastric bypass 1000 mcg IM [id number] 08/30/2023 06/03/2026 Active documented as of this [...] episo de depressed, severe, w/psychotic features 05/03/2022 felt puller current use of anticoagulant therapy 0 08/28/2021 Recurrent chest pain 07/31/2021 Last Assessment & Plan: Referred to cardiology for workup--seen in Jul. [place] atypical for ACS. ED workup neg for [...] Plan: Primary reason for transfer [place] [facility] [place] [facility] rehab. C/o LE weakness and acute/chronic low back pain. Lumbar spine MRI reportedly performed @ [facility], not available for review Pt denies receiving steroid injections D/C IV dilaudid. Resume PO hydromorphone 4mg in setting of subjected acute on chronic low back pain, foot pain and now chest pain Encourage use of tylenol 1000mg or ibuprofen 600mg PRN Chronic suprapubic catheter 05/31/2014 Overview: Placed 05/26 @ [facility] by interventional radiology for urinary retention and [...] disc without myelopathy 03/03/2006 Overview: Rigth L5-S1. Efrmin injections. Did not help. For discectomy at [facility] 08/31/06. Had subsequent MRSA graft Remove rods [...] sees Dr. Mock (spine surgeon) @ [facility] 10/24: lumbar spinal surgery by Dr. Bob [...] a contraindication to starting her on opioids." [facility] discharge 10/04/15: patient exhibiting behavior of narcotic dependency (requesting escalation of IV dilaudid) Weakness of both upper extremities 08/21/2015 12/12/2019 Generalized weakness 03/01/2015 018 Chronic back pain 03/01/2015 03/03/2022 Paraplegia 02/19/2015 03/25/2016 MEDICATION USE AGREEMENT 06/07/2014 Overview: Pain contract established with [facility] ED 05/26 - give valium [...] Overview: Cysto neg 05/21/13. Following with [facility] urology Miri CERVANTES as of 09/26/2013. Resolved s/p laminectomy L4-S1 October 2013 @ [place] [address] Heard. Last Assessment & Plan: [...] wellbutrin 03/27: followed by Mauricio THOMPSON @ [facility] ADVANCE DIRECTIVE INFORMATION 11/17/2004 08/06/2022 Overview: No, Advance Directive brochure offered , patient declined. Allergic rhinitis 11/24/2001 11/30/2018 Overview: zyrtec Fatty liver 08/06/2022 Chronic sinusitis 11/30/2018 Overview: frequent documented as of this encounter (statuses as of 11/04/2023) Immunizations Name Administration Dates Next Due COVID-19 mRNA, LNP-s, No Pre serve, 2-Dose Series ([employer]) 06/25/2021,12/13/2020,11/15/2020 COVID-19, MRNA-LNP, 23-24, P F, 30 MCG/0.3 mL, 12 YRS AND ABOVE, IM ([email or web address]-Comirnat) 03/29/2023 Covid-19, Mrna, Lnp-s, Pf, B ivalent, 30 Mcg, IM, 12 yrs and above (Pfizer) 06/17/2022 H1N1 2009 Influenza, IM 05/27/2009 Pneumococcal Conjugate Vacci ne, 20-valent ([id number]) 12/15/2021 Pneumococcal Polysaccharide PPV23 (Pneumovax) 05/01/2008 Seasonal [...] encounter Miscellaneous Notes * Telephone Encounter - Cydney Moe MD - 11/04/2023 10:17 AM EDT Terconazole sent * Telephone Encounter - Omaira Ariza, OLGA LIDIA - 11/04/2023 9:53 AM EDT Spoke with [...] Description 11/22/2023 1:00 PM EDT Therapy Psychology, [place] MIC[place]EL [place] [phone] Ghazal Best LCSW 21 [place] [address] 12/01/2023 9:00 AM EDT Nurse Only Ancillary 1st Floor, [place] [address] Nurse Harlan Carter 21 MICHAEL [place] [address] 12/13/2023 9:20 AM EDT Office Visit Nutrition & Weight Management, [facility] 132 [facility] [place] [address] Martine Mcelroy PA-C [address] [place] [address] 12/13/2023 10:00 AM EDT Nutrition Services Nutrition & Weight Management, [facility] [address] [place] [address] ePrla Torres RDN [address] [place]EL [place] [address] 12/27/2023 9:00 AM EDT Office Visit Psychiatry, [place] 21 [place] [address] Siomara Cole CRNP 200 [facility] [address] 12/29/2023 10:13 AM EDT Hospital Encounter OR GL, Operating Room, [facility] - 4th Floor [address] [place] [address] Cristiano Alaniz, DO [address] [place] [address] 12/29/2023 10:13 AM EDT - 12/29/2023 10:56 AM EDT Surgery OR [facility], Operating Room, [facility] - 4th Floor [address] [place] [address] Cristiano Alaniz, DO [address] [place] [address] COLONOSCOPY FLEXIBLE PROXIMAL DIAGNOSTIC 01/16/2024 12:00 PM EDT Office Visit Family Practice, [place] 21 [place] [phone] Sarah Saavedra PA-C [address] [place] [address] 02/02/2024 10:40 AM EDT Office Visit Interventional Pain Ctr Angelia Ayala 16 [place] [address] Traci Ricardo MD [address] [place] [address] MIC[place]EL [place] [address] 03/01/2024 11:20 AM EDT Office Visit [facility] 200 [facility] [place] [address] Maureen Bowie MD 200 [facility] [place] [address] 03/05/2024 9:30 AM EDT Office Visit Interventional Pain Ctr [place], [place] [address] [place] [address] Devon Damon PA-C 16 [place] [address] Scheduled Procedures Name Priority Associated Diagnoses Date/Ti [...] this encounter Medical Devices Implanted Type Area Payloader Machine Operator Device Identifier Shelf Expiration Date Model / Serial / Lot Plate Small Mtpj - [id number] Implanted:Qty: 1 on 11/15/2017 by Cristobal Calvillo MD at [place] [facility] Left: Foot [id number] / / Screw Locking 2.7x14mm - [id number] Implanted:Qty: 1 on 11/15/2017 by Cristobal Calvillo MD at OR [facility] Left: Foot 2054-5240 / / 2.7 X 16mm Locking Screw Implanted:Qty: 2 on 11/15/2017 by Cristobal Calvillo MD at OR [facility] Left: Foot [employer] [id number] / / 2.7 X 20 Locking Screw Implanted:Qty: 1 on 11/15/2017 by Cristobal Calvillo MD at OR [facility] Left: Foot [employer] [id number] / / 2.7 X 18mm Locking Screw Implanted:Qty: 1 on 11/15/2017 by Cristobal Calvillo MD at OR [facility] Left: Foot [employer] 7131-0841 / / Screw Locking 2.7x10mm - [id number] Implanted:Qty: 1 on 11/15/2017 by Cristobal Calvillo MD at OR [facility] Left: Foot [employer] 3407-4065 / / 4.0mm X 44 Mm Compression Screw Implanted:Qty: 1 on 10/09/2018 by Bao Hernández MD at OR [facility] Left: Foot AR-8740-44 H / / Description:Implant from set 2.5x30 Compression Screw Implanted:Qty: 1 on 10/09/2018 by Bao Hernández MD at OR [facility] Left: Foot [employer] AR-8725-30 H / / Screw [employer] 2.7urh82aw - [id number] Implanted:Qty: 2 on 02/01/2022 by Bao Hernández MD at OR [facility] Right: Toe EXACTECH 0130-7361 / / Plate Mtpj - [id number] Implanted:Qty: 1 on 02/01/2022 by Bao Hernández MD at OR [facility] Right: Foot [employer] 8663-1110 / / Screw Locking 2.7x10mm - [id number] Implanted:Qty: 2 on 02/01/2022 by Bao Hernández MD at OR [facility] Right: Foot [employer] 7864-4687 / / Screw Locking 2.7x12mm - [id number] Implanted:Qty: 3 on 02/01/2022 by Bao Hernández MD at OR [facility] Right: Foot [employer] / / Screw Locking 2.7x14mm - [id number] Implanted:Qty: 1 on 02/01/2022 by Bao Hernández MD at OR [facility] Right: Foot [employer] / / Screw [employer] 2.5vyu46pk - [id number] Implanted:Qty: 1 on 02/01/2022 by Bao Hernández MD at OR [facility] Right: Toe [employer] 9297-1109 / / Port Implant W/8f Poly Cath - [id number] Implanted:Qty: 1 on 06/02/2022 by Lawrence Cat DO at OR [facility] Right: Chest CR BARD : PERIPHERAL VASCULAR [id number] 05/12/2023 [id number] / / [id number] documented as of this encounter Visit Diagnoses Diagnosis Yeast vaginitis- Primary Candidiasis of vulva and vagina RLQ abdominal pain Abdominal pain, right lower quadrant Constipation, unspecified constipation type Abnormal CT of the abdomen Nonspecific (abnormal) findings on radiological and other examination of abdominal area, including retroperitoneum documented in this encounter Advance Directives Documents on File Type Date Recorded Patient Hide Worker Expl félix NOE 12/03/2020 KUSUM DIETRICH ROSA ORDERS FOR LIFE-SUSTAINING TREATMENT * [...] Name Relationship Healthcare Agent Relationship Communication Ni Donnyr Grandparent [facility] Health Care Agent Andria Addison Mother Emergency Contact Care Teams Senior Integration Developer Relationship Specialty Start Date End Date Sarah Saavedra PA-C 21 [address] [phone] PCP - General Physician Bean Picker 09/06/23 documented as of this encounter
--- OUTSIDE RECORDS SUMMARY | 2023-11-11 06:54 | External Medical Summary | Summary of Care ---
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 Seek immediate medical attention. [email or web address]://www.[email or web address] com/watch?v=[email or web address] AcI 1 Each 3 07/28/2023 Active Additional [...] or Vomiting. 30 Tablet 1 10/31/2023 Active Acetaminophen-Code ine 300-30 MG Oral TabletIndications: Cervicalgia,Lumbar radicular pain Take 1 Tablet by mouth 3 times a day as needed for Pain, Severe. On Physical Therapy days may take one extra tablet as needed for severe pain. 23 Tablet 10/31/2023 Active Sucralfate 1 GM Oral Tablet (Carafate)Indicati ons:Epigastric pain Take 1 Tablet by mouth 4 times a day before meals and at bedtime. 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 [place] atypical for ACS. ED workup neg for [...] [facility] to [facility] acute rehab. C/o LE weakness and acute/chronic [...] disc without myelopathy 03/03/2006 Overview: Rigth L5-S1. [place] injections. Did not help. For discectomy at [...] as of this encounter (statuses as of 11/03/2023) Resolved Problems Problem Noted Date Diagnosed Date [...] contraindication to starting her on opioids." [facility] discharge 10/04/15: patient exhibiting behavior of narcotic dependency (requesting escalation of IV dilaudid) Weakness of both upper extremities 08/21/2015 12/12/2019 Generalized weakness 03/01/2015 018 Chronic back pain 03/01/2015 03/03/2022 Paraplegia 02/19/2015 03/25/2016 MEDICATION USE AGREEMENT 06/07/2014 Overview: Pain contract established with [facility] ED 05/26 - give valium 5 mg [...] Resolved s/p laminectomy L4-S1 October [address] @ [place] [address] Heard. Last Assessment & Plan: [...] mild persistent 12/08/200910/11 Overview: Per Asthma Taxonomy, Advgenefredrickir PFT 04/30/14: normal Acidosis 09/16/2009 02/02/2018 Overview: [...] as of this encounter (statuses as of 11/03/2023) Immunizations Name Administration Dates Next Due COVID-19 mRNA, LNP-s, No Pre serve, 2-Dose Series (CogniFit) 06/25/2021,12/13/2020,11/15/2020 COVID-19, MRNA-LNP, 23-24, P F, 30 MCG/0.3 mL, 12 YRS AND ABOVE, IM (Origami Logic-Comirnaty) 03/29/2023 Covid-19, Mrna, Lnp-s, Pf, B ivalent, 30 Mcg, IM, 12 yrs and above (Pfizer) 06/17/2022 H1N1 2009 Influenza, IM 05/27/2009 Pneumococcal Conjugate Vacci ne, 20-valent ([id number]) 12/15/2021 Pneumococcal Polysaccharide PPV23 (Pneumovax) 05/01/2008 Seasonal [...] seeing, even when wearing glasses? No 07/08/19 24 Do you have serious difficul ty walking [...] Info) Description 11/03/2023 3:40 PM EDT Telemedicine [facility], [place] [address] [phone] Cydney Moe MD [address] [address] 11/22/2023 1:00 PM EDT Therapy Psychology, [place] [facility] [place] [phone] Ghazal Best LCSW [address] [address] 12/01/2023 9:00 AM EDT Nurse Only Ancillary 1st Floor, [place] [address] [place]ran[place] [address] [place] [address] [place] [place] [address] 12/13/2023 9:20 AM EDT Office Visit Nutrition & Weight Management, [facility] [address] [address] Martine Mcelroy PA-C [address] [place] [address] 12/13/2023 10:00 AM EDT Nutrition Services Nutrition & Weight Management, [facility] [address] [address] Perla Torres RDN [address] [place] [address] 12/27/2023 9:00 AM EDT Office Visit Psychiatry, [place] [address] [address] Siomara Cole CRNP [address] [facility] [place] [address] 12/29/2023 10:13 AM EDT Hospital Encounter OR [facility], Operating Room, [facility] - 4th Floor [address] [address] Cristiano Alaniz, DO [address] [place] [address] 12/29/2023 10:13 AM EDT - 12/29/2023 10:56 AM EDT Surgery OR [facility], Operating Room, [facility] - 4th Floor [address] [address] [address] Cristiano Alaniz, DO [address] [address] COLONOSCOPY FLEXIBLE PROXIMAL DIAGNOSTIC 01/16/2024 12:00 PM EDT Office Visit [facility] [address] [facility] [place] [phone] Sarah Saavedra PA-C [address] [place] [place] [address] 02/02/2024 10:40 AM EDT Office Visit Interventional Pain Ctr Angelia Ayala [address] [facility] [place] [address] Traci Ricardo MD [address] [facility] [place] [address] 03/01/2024 11:20 AM EDT Office Visit Neurology Louisa Katina [place] [address] [place] [address] Maureen Bowie MD [address] [facility] [place] [address] 03/05/2024 9:30 AM EDT Office Visit [facility]ventional Pain Ctr Angelia Ayala [address] [place] [address] Devon Damon PA-C [address] [place] [address] Scheduled Procedures Name Priority Associated Diagnoses Date/Ti [...] this encounter Medical Devices Implanted Type Area Tripe Washer Device Identifier Shelf Expiration Date Model / Serial / Lot Plate Small Mtpj - [id number] Implanted:Qty: 1 on 11/15/2017 by Cristobal Cal[place]illo [place] [facility] [place] Foot [id number] / / Screw Locking 2.7x14mm - [id number] Implanted:Qty: 1 on 11/15/2017 by Cristobal Calvillo [place] [facility] [place]: Foot / / 2.7 X 16mm Locking Screw Implanted:Qty: 2 on 11/15/2017 by Cristobal Cal[place]illo [place] [facility] [place] Foot [employer] [id number] / / 2.7 X 20 Locking Screw Implanted:Qty: 1 on 11/15/2017 by Cristobal Calvillo [place] [facility] [place] Foot [employer] [id number] / / 2.7 X 18mm Locking Screw Implanted:Qty: 1 on 11/15/2017 by Cristobal Calvillo [place] [facility] [place]: Foot [employer] 9812-3920 / / Screw Locking 2.7x10mm - [id number] Implanted:Qty: 1 on 11/15/2017 by Cristobal Calvillo [place] [facility] [place] Foot [employer] [id number] / / 4.0mm X 44 Mm Compression Screw Implanted:Qty: 1 on 10/09/2018 by Bao Hernández MD [place] [facility] [place]: Foot AR-8740-44 H / / Description:Implant from set 2.5x30 Compression Screw Implanted:Qty: 1 on 10/09/2018 by Bao Hernández MD [place] [facility] [place]: Foot [employer] AR-8725-30 H / / Screw [employer] 2.2wgn46vx - [id number] Implanted:Qty: 2 on 02/01/2022 by Bao Hernández MD [place] [facility] [place]: Toe [employer] 6677-5769 / / Plate Mtpj - [id number] Implanted:Qty: 1 on 02/01/2022 by Bao Hernández MD [place] [facility] [place]: Foot [employer] [id number] / / Screw Locking 2.7x10mm - [id number] Implanted:Qty: 2 on 02/01/2022 by Bao Hernández MD [place] [facility] [place]: Foot [employer] [id number] / / Screw Locking 2.7x12mm - [id number] Implanted:Qty: 3 on 02/01/2022 by Bao Hernández MD [place] [facility] [place]: Foot [employer] 6327-1181 / / Screw Locking 2.7x14mm - [id number] Implanted:Qty: 1 on 02/01/2022 by Bao Hernández MD [place] [facility] [place]: Foot [employer] 5433-8728 / / Screw [employer] 2.8uhc09nh - [id number] Implanted:Qty: 1 on 02/01/2022 by Bao Hernández MD [place] [facility] [place]: Toe [employer] 4822-1527 / / Port Implant W/8f Poly Cath - [id number] Implanted:Qty: 1 on 06/02/2022 by Lawrence Cat DO at OR [facility] Right: Chest CR BARD : PERIPHERAL VASCULAR [id number] 05/12/2023 [id number] / / [id number] documented as of this encounter Advance Directives Documents on File Type Date Recorded Patient Automotive Lot Attendant Expl anation POLST 12/03/2020 POLST PENNSYLVA ROSA [...] Name Relationship Healthcare Agent Relationship Communication Ni Yazminkathiekenndeyr Grandparent [facility] Health Care Agent Andria Addison Mother Emergency Contact Care Teams Concrete Pipe Plant Supervisor Relationship Specialty Start Date End Date Sarah Saavedra PA-C [address] [id number] PCP - General Physician Public Policy Professor 09/06/23 documented as of this encounter
--- OUTSIDE RECORDS SUMMARY | 2023-11-11 06:54 | External Medical Summary | Summary of Care ---
Author Name Unknown Organization [facility] Address [address] [place] [address] Phone [phone] Care Team Providers Care Straddle Bug Operator Name Role Phone Sarah Saavedra PA-C Primary Care Provider [phone] Reason for Visit * Reason Comments Catheter Change * Auth/Cert Specialty Diagnoses / Procedures Referred By Lauro t Referred To Contact [facility] [address] [place] [address] Phone: [phone] Emergency Medicine [facility] [address] [place] [address] Referral ID Status Reason Start Date Expiration Date Visits Re quested Visits Authorized [id number] Encounter Details Date Type Department Care Team (Late st Contact Info) Description 11/02/2023 8:08 PM EDT - 11/02/2023 9:39 PM EDT Emergency [facility] Emergency Department ([facility]) [address] [facility] [place] [id number] Dorothea Llanos MD [address] [place] [address] Bladder pain (Primary Dx) Discharge Disposition: Home - Self [...] said itching Latex Itching 09/26/2013 Linezolid 10/23/2014 [place] Other (Please comment) High 12/29/2014 Became unresponsive [...] opioid overdose. Seek immediate medical attention. [email or web address]://www.[email or web address] com/watch?[email or web address] AcI 1 Each 3 07/28/2023 Active Additional [...] Ajovy 225 MG/1.5ML Subcutaneous Solution Prefilled Syringe ([facility] ) Inject 1.5 mL under the [...] 1,000 mcgIndications:S/P gastric bypass 1000 mcg IM [id number] 08/30/2023 06/03/2026 Active documented as of this [...] episo de depressed, severe, w/psychotic features 05/03/2022 long-term current use of anticoagulant therapy 0 08/28/2021 Recurrent chest pain 07/31/2021 Last Assessment & Plan: Referred to cardiology for workup--seen in Jul. [place] atypical for ACS. ED workup neg for [...] & Plan: Primary [place] [facility] [facility] [place]. C/o LE weakness and acute/chronic low back pain. Lumbar spine MRI reportedly performed [place] [facility] [place] not available for review Pt denies receiving steroid injections D/C IV dilaudid. Resume PO hydromorphone 4mg in setting of subjected acute on chronic low back pain, foot pain and now chest pain Encourage use of tylenol 1000mg or ibuprofen 600mg PRN Chronic suprapubic catheter 05/31/2014 Overview: Placed 05/26 [place] [facility] [place] [...] injections. Did not help. For disce[place] at [facility] [place]/06. [...] 01/23: [place] Dr. Mock (spine surgeon) [place] [facility] [place] 10/24: [...] a contraindication to starting her on opioids." [facility] discharge 10/04/15: patient exhibiting behavior of narcotic dependency (requesting escalation of IV dilaudid) Weakness of both upper extremities 08/21/2015 12/12/2019 Generalized weakness 03/01/2015 018 Chronic back pain 03/01/2015 03/03/2022 Paraplegia 02/19/2015 03/25/2016 MEDICATION USE AGREEMENT 06/07/2014 Overview: Pain contract established with [facility] ED 05/26 - give valium 5 [...] 01/04/2023 Overview: Cysto neg 05/21/13. Following [place] [facility] [place] Miri CERVANTES as of 09/26/2013. Resolved s/p laminectomy L4-S1 October 2013 @ [place] [address] Dr[address] Heard. Last Assessment & Plan: [...] followed by Mauricio THOMPSON @ [facility] ADVANCE DIRECTIVE INFORMATION 11/17/2004 08/06/2022 Overview: No, Advance Directive brochure offered , patient declined. Allergic rhinitis 11/24/2001 11/30/2018 Overview: zyrtec Fatty liver 08/06/2022 Chronic sinusitis 11/30/2018 Overview: frequent documented as of this encounter (statuses as of 11/03/2023) Immunizations Name Administration Dates Next Due COVID-19 mRNA, LNP-s, No Pre serve, 2-Dose Series (Upstart) 06/25/2021,12/13/2020,11/15/2020 COVID-19, MRNA-LNP, 23-24, P F, 30 MCG/0.3 mL, 12 YRS AND ABOVE, IM (Kadoink-Comirnat) 03/29/2023 Covid-19, Mrna, Lnp-s, Pf, B ivalent, 30 Mcg, IM, 12 yrs and above (Pfizer) 06/17/2022 H1N1 2009 Influenza, IM 05/27/2009 Pneumococcal Conjugate Vacci ne, 20-valent ([id number]) 12/15/2021 Pneumococcal Polysaccharide PPV23 (Pneumovax) 05/01/2008 Seasonal [...] Sign Reading Time Taken Comments Blood Pressure 131/66 11/02/2023 9:01 PM EDT Pulse 85 11/02/2023 9:01 PM EDT Temperature - - Respiratory Rate 17 11/02/2023 9:01 PM EDT Oxygen Saturation 100% 11/02/2023 4:10 PM EDT Inhaled Oxygen Concentration - - Weight 95.7 kg (211 lb) 11/02/2023 4:10 PM EDT Height 152.4 cm (5') 11/02/2023 4:10 PM EDT Body Mass Index 41.21 11/02/2023 4:10 PM EDT documented in this encounter Functional Status [...] * Discharge Instructions* Tri Menard PA-C - 11/02/2023 9:29 PM EDT Rest and remain well hydrated. Continue all at-home medications, no changes have been made. At time of emergency department visit, you declined to have a CT scan. However, you may return to the emergency department at any time for additional care. Please contact your urologist tomorrow to schedule follow up appointment on an outpatient basis. Return to the Emergency Deparment if symptoms return, persist, or worsen. documented in this encounter Progress Notes * Dorothea Llanos MD - 11/02/2023 8:52 PM EDT Patient was seen in conjunction with the [facility]. Patient is a 38-year-old female presenting with lower abdominal pain and bladder pain. Patient reports that she was seen by Urology at [facility] 6 days ago. She states she had a cystoscopy and Botox injections into the wall of her bladder to relieve spasming. She also had a change in her suprapubic catheter. She states that she had significant lower abdominal pain and spasming today. Denies any fevers. Denies any nausea or vomiting. Reports she was only had 300 mL of urine today. Patient was bladder scanned by nursing staff and had 0 mL of urine in her bladder. Given patient's complaint of continued lower abdominal pain in the setting of a recent procedure, Idid offer an order a CT abdomen/pelvis without contrast and Tylenol for pain medication. However, the patient refused the CT scan and the Tylenol. She just wants to be discharged home and does not want to wait for any further results. Recommended that she follow up with her urologist. documented in this encounter ED Notes * Tri Menard PA-C - 11/02/2023 8:47 PM EDT HISTORY OF PRESENT ILLNESS Gricel Mancini is a 38 year old female who presents to the ED for evaluation of Catheter Change. The patient was seen at 11/02/232043. 38-year-old female with past medical history significantfor GERD, IBS, spina bifida patient emergency department complaining of bladder pain. Patient states that she was seen by Urology at [facility] 6 days ago. At that time, she had a cystoscopy, Botox injections to the wall of the bladder to relieve spasming, and a change in her suprapubic catheter. Onset of symptoms was today. Patient denies nausea, vomiting, diarrhea. No associated fever, chills, fatigue. Her concern is that the catheter is not draining appropriately. Review of Systems Constitutional: Negative for chills, diaphoresis, fatigue and fever. Gastrointestinal: Negative for abdominal pain. Genitourinary: Bladder pain Skin: Negative for wound. The patient's allergies, past history, and medications were reviewed. PHYSICAL EXAM Initial Vitals (see all): BP 142/94 | Pulse 92 | Resp 18 | O2 100 %Weight 95.71 kg | Height 152.4 cm | BMI 41.21 kg/m2 Initial Pain Assessment (see all): 9 (severe pain)/10, location: bladder ([facility] Adult Scale 0-10) Physical Exam Vitals and nursing note reviewed. Constitutional: General: She is awake. She is not in acute distress. Appearance: She is not ill-appearing, toxic-appearing or diaphoretic. Cardiovascular: Rate and Rhythm: Normal rate and regular rhythm. Heart sounds: Normal heart sounds. Pulmonary: Effort: Pulmonary effort is normal. Breath sounds: Normal breath sounds and air entry. Abdominal: General: Bowel sounds are normal. Palpations: Abdomen is soft. Tenderness: There is no abdominal tenderness. There is no right CVA tenderness, left CVA tenderness, guarding or rebound. Comments: Insertion site of suprapubic catheter without erythema, edema, drainage noted. Nontenderto palpation. Proximally 300 mL of urine is in the bag Skin: General: Skin is warm and dry. Capillary Refill: Capillary refill takes less than 2 seconds. Neurological: Mental Status: She is alert and oriented to person, place, and time. Psychiatric: Behavior: Behavior is cooperative. PROCEDURES AND TREATMENTS ED Orders | ED Results MEDICAL DECISION MAKING Nursing notes and vital signs were reviewed. ED Course as of 11/02/232128November 02, 20232048 Recommendations: bladder scan. If minimal urine in bladder, no need for cath exchange as cath is working appropriately. Patient in agreement with plan. [JT] 2116 Attending has evaluated the patient. Patient continues to complain of inadequate drainage/suprapubic catheter malfunction. CT scan without IV contrast ordered. Tylenol for pain. [JT] [address] of abd/pelv Advised her that is more specific in determining whether or not the bladder is for empty and therefore if her suprapubic catheter is functioning well. She states she understands but does not wish to wait another 2 hours for the results. She states she would rather just go home. Encouraged patient to continue all at-home medications. Encouraged patient to contact her urologist in the morning. Educated on strict return to ED instructions. Understanding verbalized by patient. [JT] ED Course User Index [JT] Tri Menard PA-C Differential Diagnoses Based on my history, physical exam, and evaluation, the differential includes, but is not limited, to the following diagnoses: Encounter for catheter evaluation, encounter for catheter exchange, UTI,bladder spasms. Amount and/or Complexity of Data Reviewed Radiology: ordered. Risk OTC drugs. Clinical Impressions Bladder pain Disposition Discharged. The patient's condition at disposition was: stable. - patient refused CT scan. - encouraged patient to rest, remain well hydrated, and continue all her at-home medications. - encouraged patient to follow up with her urologist. -Educated on strict return to ED instructions. Understanding verbalized by patient. Dorothea Llanos was the attending physician who supervised the care of this patient. Tri Menard PA-C * Bobby Bass RN - 11/02/2023 4:08 PM EDT Pt states last she had botox done at [facility] in her bladder and ever since she has hadpain and issues with her bladder and her catheter draining. Pt reports only has 300 ml urine out put all day. Pt has urine present in catheter drainage tubing at triage. documented in this encounter Miscellaneous Notes * ED Line Maintainer Note - Delia Mendoza RN - 11/02/2023 9:38 PM EDT Discharge and verbalized understanding. Left ed in wheelchair. FLACC 0 * ED Line Maintainer Note - Delia Mendoza RN - 11/02/2023 8:17 PM EDT Pt came to ED due to catheter issues. Pt reports on she had BOTOX and cystoscopy at [facility]. Reports they had issues taking catheter out and putting back in and reports since she's had issues with it. Reports she feels it is not draining her normal and states she puts out typically 3000cc a day and reports only a total of 600 cc currently today. Reports burning at suprapubic site, pressure, and "stabbing" pain. Reports she feels like she is full in the bladder. Family at bedside. Call gracia in reach 2050: bladder scanned pt 3 times. No noted urine in bladder. Provider aware. 2126: pt reports she wants to leave and does not want medications. Provider aware. Call gracia in reach documented in this encounter Plan of Treatment Upcoming Encounters Date Type Department Care Team (Late st Contact Info) Description 11/03/2023 3:40 PM EDT Telemedicine [address] [place] [address] [facility]yd[facility] Moe [facility] [phone] 11/22/2023 1:00 PM EDT Therapy Psychology, [address] [facility] [address] Ghazal Best CUSTOMER SERVICE COORDINATOR 21 [facility] [place] [phone] 12/01/2023 9:00 AM EDT Nurse Only Ancillary 1st Floor, [address] [place] [address] Nurse Harlan [place] [facility] [phone] 12/13/2023 9:20 AM EDT Office Visit Nutrition & Weight Management, [facility] [address] [facility] [place] [phone] Martine Mcelroy PA-C 132 [facility] [place] [address] 12/13/2023 10:00 AM EDT Nutrition Services Nutrition & Weight Management, [facility] [address] [facility] [place] [address] Perla Torres RDN 132 [facility] [place] [address] 12/27/2023 9:00 AM EDT Office Visit Psychiatry, [address] [place] [address] Siomara Cole CRNP [address] [place] [address] 12/29/2023 10:13 AM EDT Hospital Encounter OR [facility], Operating Room, [facility] - 4th Floor [address] [place] [address] Cristiano Alaniz, DO [address] [place] [address] 12/29/2023 10:13 AM EDT - 12/29/2023 10:56 AM EDT Surgery OR [facility], Operating Room, [facility] - 4th Floor [address] [place] [address] Cristiano Alaniz, DO [address] [place] [address] COLONOSCOPY FLEXIBLE PROXIMAL DIAGNOSTIC 01/16/2024 12:00 PM EDT Office Visit [facility] [address] [facility] [place] [id number] Sarah Saavedra PA-C 21 [facility] [place] [address] 02/02/2024 10:40 AM EDT Office Visit [facility]tr Angelia Ayala [address] [place] [address] Traci Ricardo MD 400 [facility] [place] [address] 03/01/2024 11:20 AM EDT Office Visit Neurology [place] [address] [place] [address] Maureen Bowie MD [address] [place] [address] 03/05/2024 9:30 AM EDT Office Visit [facility]ventional Pain Ctr Angelia Ayala [address] [place] [address] Devon Damon PA-C [address] [place] [address] Scheduled Procedures Name Priority Associated Diagnoses Date/Ti [...] this encounter Medical Devices Implanted Type Area Entertainment Dancer Device Identifier Shelf Expiration Date Model / Serial / Lot Plate Small Mtpj - [id number] Implanted:Qty: 1 on 11/15/2017 by Cristobal Calvillo MD at [place] [facility] [place] Left: Foot / / Screw Locking 2.7x14mm - [id number] Implanted:Qty: 1 on 11/15/2017 by Cristobal Calvillo MD at OR [facility] [place] Left: Foot / / 2.7 X 16mm Locking Screw Implanted:Qty: 2 on 11/15/2017 by Cristobal Calvillo MD at OR [facility] [place] Left: Foot [employer] / / 2.7 X 20 Locking Screw Implanted:Qty: 1 on 11/15/2017 by Cristobal Calvillo MD at OR [facility] [place] Left: Foot [employer] / / 2.7 X 18mm Locking Screw Implanted:Qty: 1 on 11/15/2017 by Cristobal Calvillo MD at OR [facility] [place] Left: Foot [employer] / / Screw Locking 2.7x10mm - [id number] Implanted:Qty: 1 on 11/15/2017 by Cristobal Calvillo MD at OR [facility] [place] Left: Foot [employer] / / 4.0mm X 44 Mm Compression Screw Implanted:Qty: 1 on 10/09/2018 by Bao Hernández MD at OR [facility] [place] Left: Foot AR-8740-44 H / / Description:Implant from set 2.5x30 Compression Screw Implanted:Qty: 1 on 10/09/2018 by Bao Hernández MD at OR [facility] [place] Left: Foot [employer] AR-8725-30 H / / Screw [employer] [id number] - [id number] Implanted:Qty: 2 on 02/01/2022 by Bao Hernández MD at OR [facility] [place] Right: Toe EXACTECH 1330-0463 / / Plate Mtpj - [id number] Implanted:Qty: 1 on 02/01/2022 by Bao Hernández MD at OR [facility] [place] Right: Foot [employer] [id number] / / Screw Locking 2.7x10mm - [id number] Implanted:Qty: 2 on 02/01/2022 by Bao Hernández MD at OR [facility] [place] Right: Foot [employer] / / Screw Locking 2.7x12mm - [id number] Implanted:Qty: 3 on 02/01/2022 by Bao Hernández MD at OR [facility] [place] Right: Foot [employer] / / Screw Locking 2.7x14mm - [id number] Implanted:Qty: 1 on 02/01/2022 by Bao Hernández MD at OR [facility] [place] Right: Foot [employer] / / Screw [employer] 2.2mqz32pr - [id number] Implanted:Qty: 1 on 02/01/2022 by Bao Hernández MD at OR [facility] [place] Right: Toe [employer] [id number] / / Port Implant W/8f Poly Cath - [id number] Implanted:Qty: 1 on 06/02/2022 by Lawrence Cat, at OR [facility] Right: Chest CR BARD : PERIPHERAL VASCULAR [id number] 05/12/2023 [id number] / / [id number] documented as of this encounter Visit Diagnoses Diagnosis Bladder pain- Primary Other symptoms involving urinary system RLQ abdominal pain Abdominal pain, right lower quadrant Constipation, unspecified constipation type Abnormal CT of the abdomen Nonspecific (abnormal) findings on radiological and other examination of abdominal area, including retroperitoneum documented in this encounter Administered Medications Inactive Administered Medications - up to 3 most recent administrations Medication Order MAR Action Action Date Dose Rate Site Acetaminophen (Tylenol) tab 650 mg 650 mg, Oral, ONCE, On Tue11/02/23 at 2200, For 1 dose, Maximum of 4 grams (4000 mg) per day. documented in this encounter Active and Recently Administered Medications Times are shown in EDT. Scheduled Medication Order 10/31/2023 11/01/2023 11/02/2023 Acetaminophen (Tylenol) tab 650 mg 650 mg, Oral, ONCE, On Tue11/02/23 at 2200, For 1 dose, Maximum of 4 grams (4000 mg) per day. 2200 (Not Given - Pr ovider: Delia Mendoza RN - Reason: Refused-Notify Provider) documented in this encounter Advance Directives Documents on File Type Date Recorded Patient Vp Production Cristian NOE 12/03/2020 POLST DIETRICH ROSA ORDERS FOR LIFE-SUSTAINING [...] Agent Relationship Communication Ni Yazmintesfaye Grandparent [facility] Agent Andria Addison Mother Emergency Contact Care Teams Straddle Bug Operator Relationship Specialty Start Date End Date Sarah Saavedra PA-C [address] [place] [place] [id number] PCP - General Physician Equipment Maint Tech 09/06/23 documented as of this encounter
--- OUTSIDE RECORDS SUMMARY | 2023-11-11 06:55 | External Medical Summary ---
Author Name Unknown Address Unknown Organization K01:[facility] [place] [facility] [address] [facility] [place] [address] Laboratory Report Ordering Provider Test Date Status MAKEDA ARGUETA 11/02/2023 08:10:12 Final Observation Date Value Abnormality Reference (Units ) Status Triglyceride 11/02/2023 08:10:12 114 <=174 ( mg/dL) Final Triglyceride Reference Range s (mg/dL):
<150 Acceptable
150-174 Borderline high
175-499 High
>=500 Very high Cholesterol 11/02/2023 08:10:12 180 <200 (mg /dL) Final Total Cholesterol Reference Ranges (mg/dL):
<200 Desirable
200-239 Borderline high
>=240 High HDL 11/02/2023 08:10:12 68 >49 (mg/dL ) Final HDL Cholesterol Reference Ra nges (mg/dL):
>=60 High (Desirable)
<50 Low (Undesirable) For Females
<40 Low (Undesirable) For Males NON-HDL CHOLESTEROL 11/02/2023 08:10:12 112 <=159 (mg/dL) Final Non-HDL Cholesterol Referenc e Range (mg/dL):
<100 Target level for high risk ASCVD patient
<130 Optimal for general population
130-159 Near optimal for general population
160-189 Borderline High
190-219 High
>=220 Very High LDL, (calculated) 11/02/2023 08:10:12 89 <= 129 (mg/dL) Final LDL Cholesterol Reference Ra nges (mg/dL):
<70 Target level for high risk ASCVD patient
<100 Optimal for general population
100-129 Near optimal for general population
130-159 Borderline high
160-189 High
>=190 Very high Performing Location [facility] [place] [address] [facility] [address]
--- OUTSIDE RECORDS SUMMARY | 2023-11-11 06:55 | External Medical Summary | Summary of Care ---
Author Name Unknown Organization [facility] Address [address] [place] [address] Phone [phone] Care Team Providers Care Pan Helper Name Role Phone Sarah Saavedra PA-C Primary Care Provider [phone] Reason for Visit * Reason Comments Outpatient Testing Encounter Details Date Type Department Care Team ([facility] st Contact Info) Description 11/02/2023 7:50 AM EDT Laboratory Laboratory, [place] [address] [place] [address] [facility] [address] [place] [address] Anxiety state; Prolonged posttraumatic stress disorder Allergies Active Allergy Reactions Criticality Noted Date [...] said itching Latex Itching 09/26/2013 Linezolid 10/23/2014 [place] Other (Please comment) High 12/29/2014 Became unresponsive [...] as of this encounter (statuses as of 11/02/2023) Medications Medication Sig Dispensed Refills Start Date [...] suspected opioid overdose. Seek immediate medical attention. [email or web address] [email or web address] AcI 1 Each 3 07/28/2023 Active Additional [...] Ajovy 225 MG/1.5ML Subcutaneous Solution Prefilled Syringe ([facility] [facility] ) Inject 1.5 mL under [...] 1,000 mcgIndications:S/P gastric bypass 1000 mcg IM [id number] 08/30/2023 06/03/2026 Active documented as of this encounter (statuses as of 11/02/2023) Active Problems Problem Noted Date Diagnosed Date [...] episo de depressed, severe, w/psychotic features 05/03/2022 prison current use of anticoagulant therapy 0 08/28/2021 Recurrent chest pain 07/31/2021 Last Assessment & Plan: Referred to cardiology for workup--seen in Jul. [place] atypical for ACS. ED workup neg for [...] & Plan: Primary reason for transfer from [facility] to [facility] rehab. C/o LE weakness and acute/chronic low back pain. Lumbar spine MRI reportedly performed @ [facility], not available for review Pt denies receiving steroid injections D/C IV dilaudid. Resume PO hydromorphone 4mg in setting of subjected acute on chronic low back pain, foot pain and now chest pain Encourage use of tylenol 1000mg or ibuprofen 600mg PRN Chronic suprapubic catheter 05/31/2014 Overview: Placed 05/26 @ [facility] by interventional radiology for urinary retention and [...] disc without myelopathy 03/03/2006 Overview: Rigth L5-S1. [place] injections. Did not help. For discectomy at [facility] 08/31/06. Had subsequent MRSA graft Remove rods [...] 01/23: sees Dr. Mock (spine surgeon) @ [facility] 10/24: lumbar spinal surgery by Dr. Bob Heard 09/11/15: bulging disc with moderate narrowing of neural foramen B L4-5 and R L5- S1 Gastroesophageal reflux disease without esophagi tis 08/15/2003 Overview: EGD 12/23: + small hiatal hernia, no gastritis; increase PPI to protonix 40 mg bid Egd 10/16 mild esophagitis and gastritis. Generic Scoliosis documented as of this encounter (statuses as of 11/02/2023) Resolved Problems Problem Noted Date Diagnosed Date [...] 04/18/2019 Quadriplegia, unspecified 11/16/2016 Unspecified convulsions 11/16/2016 070 06/2019 Opioid dependence, uncomplicated 11/16/2016 07/27/2019 Fall [...] AGREEMENT 06/07/2014 Overview: Pain contract established with [facility] ED 05/26 - give valium 5 [...] 01/04/2023 Overview: Cysto neg 05/21/13. Following with [facility] urology Miri CERVANTES as of 09/26/2013. Resolved s/p laminectomy L4-S1 October [address] @ [place] [address] Heard. Last Assessment & Plan: [...] wellbutrin 03/27: followed by Mauricio THOMPSON @ [facility] ADVANCE DIRECTIVE INFORMATION 11/17/2004 08/06/2022 Overview: No, Advance Directive brochure offered , patient declined. Allergic rhinitis 11/24/2001 11/30/2018 Overview: zyrtec Fatty liver 08/06/2022 Chronic sinusitis 11/30/2018 Overview: frequent documented as of this encounter (statuses as of 11/02/2023) Immunizations Name Administration Dates Next Due COVID-19 mRNA, LNP-s, No Pre serve, 2-Dose Series ([employer]) 06/25/2021,12/13/2020,11/15/2020 COVID-19, MRNA-LNP, 23-24, P F, 30 MCG/0.3 mL, 12 YRS AND ABOVE, IM (PFIZER-Comirnaty) 03/29/2023 Covid-19, Mrna, Lnp-s, Pf, B ivalent, 30 Mcg, IM, 12 yrs and above (Pfizer) 06/17/2022 H1N1 2009 Influenza, IM 05/27/2009 Pneumococcal Conjugate Vacci ne, 20-valent ([id number]) 12/15/2021 Pneumococcal Polysaccharide PPV23 (Pneumovax) 05/01/2008 Seasonal [...] Info) Description 11/03/2023 3:40 PM EDT Telemedicine Family [facility], [place] [phone] Cydney Moe MD [place] [id number] 11/22/2023 1:00 PM EDT Therapy Psychology, [place] [phone] Ghazal Best, MAGICIAN/ILLUSIONIST [address] [place] [address] 12/01/2023 9:00 AM EDT Nurse Only Ancillary 1st Floor, [place] [address] [place] [address] Emma, Nurse Fp [address] [place] [address] 12/13/2023 9:20 AM EDT Office Visit Nutrition & Weight Management, [facility] [address] [facility] [place] [address] Martine Mcelroy, JAY [address] [place] [address] 12/13/2023 10:00 AM EDT Nutrition Services Nutrition & Weight Management, [facility] [address] [facility] [place] [address] Perla Torres RDN [address] [facility] [place] [address] 12/27/2023 9:00 AM EDT Office Visit Psychiatry, [place] [address] [place] [address] Siomara Cole CRNP [address] [place] [address] 12/29/2023 10:13 AM EDT Hospital Encounter [facility], Operating Room, [facility] - 4th Floor [address] [place] [address] Cristiano Alaniz DO [address] [facility] [place] [address] 12/29/2023 10:13 AM EDT - 12/29/2023 10:56 AM EDT Surgery OR [facility], Operating Room, [facility] - 4th Floor [address] [place] [address] Cristiano Alaniz, [address] [place] [address] COLONOSCOPY FLEXIBLE PROXIMAL DIAGNOSTIC 01/16/2024 12:00 PM EDT Office Visit [facility], [place] [address] [place] [id number] Sarah Saavedra PA-C [address] [place] [address] 02/02/2024 10:40 AM EDT Office Visit [facility] Angelia Ayala [address] [place] [address] Traci Ricardo MD [address] [place] [address] 03/01/2024 11:20 AM EDT Office Visit Neurology [facility] [address] [place] [address] Maureen Bowie MD [address] [place] [address] 03/05/2024 9:30 AM EDT Office Visit [facility]tr Angelia Ayala [address] [place] [address] Devon Damon PA-C [address] [place] [address] Pending Results Name Type Priority Associated Diagnoses Date /Time LIPID PANEL WITH DIRECT LDL IF TG IS HIGH Lab Routine Anxiety state Prolonged posttraumatic stress disorder 11/02/2023 8:10 AM EDT COMPREHENSIVE METABOLIC PANEL Lab Routine Anxiety state Prolonged posttraumatic stress disorder 11/02/2023 8:10 AM EDT Scheduled Procedures Name Priority Associated Diagnoses Date/Ti me COLONOSCOPY FLEXIBLE PROXIMAL DIAGNOSTIC RLQ abdominal pain Constipation, unspecified constipation type Abnormal CT of the abdomen 12/29/2023 10:13 AM EDT Health Maintenance Due Date Last Done Comments DXA Scan 07/28/2024 07/28/2021 Diabetes Screening 10/28/2026 10/29/2023, 0 10/12/2023, 09/28/2023, Additional history exists DTaP,Tdap,and Td Vaccines (8 [...] this encounter Medical Devices Implanted Type Area Roller Die Cutting Machine Operator Device Identifier Shelf Expiration Date Model / Serial / Lot Plate Small Mtpj - [id number] Implanted:Qty: 1 on 11/15/2017 by Cristobal Calvillo MD at OR [facility] Left: Foot [id number] / / Screw Locking 2.7x14mm - [id number] Implanted:Qty: 1 on 11/15/2017 by Cristobal Calvillo MD at OR [facility] Left: Foot [id number] / / 2.7 X 16mm Locking Screw Implanted:Qty: 2 on 11/15/2017 by Cristobal Calvillo MD at [facility] Left: Foot [employer] [id number] / / 2.7 X 20 Locking Screw Implanted:Qty: 1 on 11/15/2017 by Cristobal Calvillo MD at [facility] Left: Foot [employer] [id number] / / 2.7 X 18mm Locking Screw Implanted:Qty: 1 on 11/15/2017 by Cristobal Calvillo MD at [facility] Left: Foot [employer] [id number] / / Screw Locking 2.7x10mm - [id number] Implanted:Qty: 1 on 11/15/2017 by Cristobal Calvillo MD at OR [facility] Left: Foot [employer] / / 4.0mm X 44 Mm Compression Screw Implanted:Qty: 1 on 10/09/2018 by Bao Hernández MD at OR [facility] Left: Foot AR-8740-44 H / / Description:Implant from set 2.5x30 Compression Screw Implanted:Qty: 1 on 10/09/2018 by Bao Hernández MD at OR [facility] Left: Foot [employer] AR-8725-30 H / / Screw [employer] 2.0lym48bb - [id number] Implanted:Qty: 2 on 02/01/2022 by Bao Hernández MD at OR [facility] Right: Toe [employer] [id number] / / Plate Mtpj - [id number] Implanted:Qty: 1 on 02/01/2022 by Bao Hernández MD at OR [facility] Right: Foot [employer] [id number] / / Screw Locking 2.7x10mm - [id number] Implanted:Qty: 2 on 02/01/2022 by Bao Hernández MD at OR [facility] Right: Foot [employer] / / Screw Locking 2.7x12mm - [id number] Implanted:Qty: 3 on 02/01/2022 by Bao Hernández MD at OR [facility] Right: Foot [employer] / / Screw Locking 2.7x14mm - [id number] Implanted:Qty: 1 on 02/01/2022 by Bao Hernández MD at OR [facility] Right: Foot [employer] / / Screw [employer] 2.4rqv89ws - [id number] Implanted:Qty: 1 on 02/01/2022 by Bao Hernández MD at OR [facility] Right: Toe [employer] [id number] / / Port Implant W/8f Poly Cath - [id number] Implanted:Qty: 1 on 06/02/2022 by Lawrence Cat DO at OR [facility] Right: Chest CR BARD : PERIPHERAL VASCULAR [id number] 05/12/2023 [id number] / / [id number] documented as of this encounter Visit Diagnoses Diagnosis Anxiety state Anxiety state, unspecified Prolonged posttraumatic stress disorder Posttraumatic stress disorder RLQ abdominal pain Abdominal pain, right lower quadrant Constipation, unspecified constipation type Abnormal CT of the abdomen Nonspecific (abnormal) findings on radiological and other examination of abdominal area, including retroperitoneum documented in this encounter Advance Directives Documents on File Type Date Recorded Patient Supervisor Labor Gang Expl anation POL 12/03/2020 POLST KARLO LEE [...] Relationship Communication Ni Live Grandparent [facility] Agent Andria [place] Mother Emergency Contact Care Teams Pan Helper Relationship Specialty Start Date End Date Sarah Saavedra PA-C [address] [place] [phone] PCP - General Physician Visitor Information Assistant 09/06/23 documented as of this encounter
--- OUTSIDE RECORDS SUMMARY | 2023-11-11 06:55 | External Medical Summary | Summary of Care ---
Author Name Unknown Organization [facility] Address [address] [place] [address] Phone [phone] Care Team Providers Care Public Relations Specialist Name Role Phone Sarah Saavedra PA-C Primary Care Provider [phone] Reason for Visit * Reason Onset Date Comments Medication Pre-auth 10/27/2023 Encounter Details Date Type Department Care Team (Late st Contact Info) Description 10/27/2023 Telephone [facility] 21 [facility] [place] [phone] Sarah Saavedra PA-C [facility] [place] [address] Medication Pre-auth Allergies Active Allergy Reactions Criticality Noted Date [...] said itching Latex Itching 09/26/2013 Linezolid 10/23/2014 [place] Other (Please comment) High 12/29/2014 Became unresponsive [...] as of this encounter (statuses as of 10/31/2023) Medications Medication Sig Dispensed Refills Start Date [...] Additional Information Patient not taking.Reported on 10/31/2023 Prazosin HCl 1 MG Oral Capsule (Minipress) Take 1 Capsule by mouth in the morning and 1 Capsule before bedtime. 60 Capsule 4 10/31/19 24 Active Famotidine 20 MG Oral Tablet (Pepcid)Indication s:Gastroesophageal reflux disease without esophagitis Take 1 Tablet by mouth daily as needed for Heartburn. 90 Tablet 1 4 Active Prochlorperazine Maleate 10 MG Oral Tablet (Compazine)Indicat ions:Nausea Take 1 Tablet by mouth every 6 hours as needed for Nausea. 30 Tablet 2 4 Active Ajovy 225 MG/1.5ML Subcutaneous Solution Prefilled Syringe (Jerzyumab-[facility] ) Inject 1.5 mL under the [...] cause sedation 90 Tablet 1 4 Active Ondansetron HCl 4 MG Oral TabletIndications: Nausea Take 1 Tablet by mouth every 8 hours as needed for Nausea or Vomiting. 30 Tablet 1 3 10/31/19 24 Discontinu ed(Refill) Fluconazole 150 MG Oral Tablet (Diflucan)Indicati ons:Yeast vaginitis Take 1 Tablet by mouth every 3 days. 3 Tablet 4 10/28/19 24 Discontinu ed(Refill) methylPREDNISolone 4 MG Oral Tablet Therapy Pack (Medrol Dosepack)Indicatio ns:Cervicalgia follow package directions Do not start before October 22, 2023. 21 Tablet 4 10/31/19 24 Discontinu ed(Medicat ion/Dose Changed) Acetaminophen-Code ine 300-30 MG Oral TabletIndications: Cervicalgia,Lumbar radicular pain Take 1 Tablet by mouth 3 times a day as needed for Pain, Severe. On Physical Therapy days may take one extra tablet as needed for severe pain. Do not start before October 24, 2023. 23 Tablet 4 10/31/19 24 Discontinu ed(Refill) Nitrofurantoin Monohyd Macro 100 MG Oral Capsule (Macrobid) TAKE ONE CAPSULE BY MOUTH TWICE DAILY WITH FOOD FOR 7 DAYS 4 10/31/19 24 Discontinu ed(Medicat ion/Dose Changed) oxyCODONE-Acetamin ophen 5-325 MG Oral Tablet (Percocet)Indicati ons:Bladder spasm Take 1 Tablet by mouth every 6 hours as needed for Pain, Severe (Pain). Take one tablet every 6 hours as needed for severe pain after procedure on 10/27/2023. Please skip two Tylenol # 3 tablets on 10/27/23 Do not start before October 27, 2023. 2 Tablet 4 10/31/19 Discontinu ed(Medicat ion/Dose Changed) Linzess 145 MCG Oral Capsule (linaCLOtide)Indic ations:Constipatio n, unspecified constipation type Take 2 Capsules by mouth in the morning. 60 Capsule 11 4 10/28/19 Discontinu ed(Medicat ion/Dose Changed) Hospital, Clinic, or Other Facility Administered Medication Ordered Dose Route Frequency Start Date End Date Status vitamin b-12 (Cyanocobalamin) inj 1,000 mcgIndications:S/P gastric bypass 1000 mcg IM [id number] 08/30/2023 06/03/2026 Active documented as of this encounter (statuses as of 10/31/2023) Active Problems Problem Noted Date Diagnosed Date [...] episo de depressed, severe, w/psychotic features 05/03/2022 salvage determiner current use of anticoagulant therapy 0 08/28/2021 Recurrent chest pain 07/31/2021 Last Assessment & Plan: Referred to cardiology for workup--seen in Jul. [place] atypical for ACS. ED workup neg [...] Plan: Primary [place] for [place] [facility] [place] [facility]hab. C/o LE weakness and acute/chronic low back pain. Lumbar spine MRI reportedly performed @ [facility], not available for review Pt denies receiving steroid injections D/C IV dilaudid. Resume PO hydromorphone 4mg in setting of subjected acute on chronic low back pain, foot pain and now chest pain Encourage use of tylenol 1000mg or ibuprofen 600mg PRN Chronic suprapubic catheter 05/31/2014 Overview: Placed 05/26 @ [facility] by interventional radiology for urinary retention and [...] Did not help. For discectomy at [facility] 08/31/06. Had subsequent MRSA graft Remove rods [...] sees Dr. Mock (spine surgeon) @ [facility] 10/24: lumbar spinal surgery by Dr. Bob Heard 09/11/15: bulging disc with moderate narrowing of neural foramen B L4-5 and R L5- S1 Gastroesophageal reflux disease without esophagi tis 08/15/2003 Overview: EGD 12/23: + small hiatal hernia, no gastritis; increase PPI to protonix 40 mg bid Egd 10/16 mild esophagitis and gastritis. Generic Scoliosis documented as of this encounter (statuses as of 10/31/2023) Resolved Problems Problem Noted Date Diagnosed Date [...] AGREEMENT 06/07/2014 Overview: Pain contract established with [facility] ED 05/26 - give valium [...] Overview: Cysto neg 05/21/13. Following with [facility] urology Miri Dixon BILLY as of 09/26/2013. Resolved s/p laminectomy L4-S1 October 2013 @ [place] [address] Dr. Heard. Last Assessment & Plan: [...] wellbutrin 03/27: followed by Mauricio THOMPSON @ [facility] ADVANCE DIRECTIVE INFORMATION 11/17/2004 08/06/2022 Overview: No, Advance Directive brochure offered , patient declined. Allergic rhinitis 11/24/2001 11/30/2018 Overview: zyrtec Fatty liver 08/06/2022 Chronic sinusitis 11/30/2018 Overview: frequent documented as of this encounter (statuses as of 10/31/2023) Immunizations Name Administration Dates Next Due COVID-19 mRNA, LNP-s, No Pre serve, 2-Dose Series (NJOY) 06/25/2021,12/13/2020,11/15/2020 COVID-19, MRNA-LNP, 23-24, P F, 30 MCG/0.3 mL, 12 YRS AND ABOVE, IM (Cmed-Comirnat) 03/29/2023 Covid-19, Mrna, Lnp-s, Pf, B ivalent, 30 Mcg, IM, 12 yrs and above (NJOY) 06/17/2022 DT - Diptheria/Tetanus (PEDS) 07/15/1991, 988,02/27/1987 DTWP - Dipth/Tet/Whole Cell Pertussis 1986 DTWP HIB - Dipth/Tet/Whole C ell Pert/HIB 1986 H1N1 2009 Influenza, IM 05/27/2009 Haemophilius B (HIB), unspecified 03/04/1988 Hepatitis B, 0-19 yrs 04/04/1997,10/30/1996,09/12 MMR - Measles/Mumps/Rubella Vaccine 08/13/1991,0 10/27/1987 Meningococcal Polysaccharide Vaccine ([place]) 03/02/2005 OPV - Polio Virus Vaccine (Oral) 992,03/04/1988,02/27/1987,12/26,1986 PPD 07/24/1987 Pneumococcal Conjugate Vacci ne, 20-valent ([id number]) 12/15/2021 Pneumococcal Polysaccharide PPV23 (Pneumovax) 05/01/2008 Seasonal [...] encounter Miscellaneous Notes * Telephone Encounter - Esperanza Cornelius PHARM Tech - 10/31/2023 3:06 PM EDT This is a new PA request. Upon review of this prior authorization request, I verified this request is appropriate. This is prescribed by a department for which [facility] is authorized to review prior authorizations This is not a duplicate encounter regarding the same prior authorization The patient is planning to use insurance The insurance information listed in previous note is correct and the plan that is requiring prior authorization The insurance does not cover either brand or generic forms of this script as written without prior authorization The insurance does not cover any NDCs of this script without prior authorization RX Estimate tool is unable to determine coverage of requested script Of note, there is nothing currently pending in [facility] for this request. Please advise how to proceed. Thank you, Esperanza Cornelius CPhT Manager Trust Trimming Assembler [facility] ([facility])(formerly Telepharmacy) 10/31/2023,3:06 PM * Telephone Encounter - Adele Lundberg PHARM Tech - 10/27/2023 9:09 AM EDT Pharmacy calling to inform doctor that the patient's insurance will not pay for this medication without a completed prior authorization. Did confirm this information with the pharmacy. Pt's current insurance information is as follows: Patient name: Gricel Mancini ID number: [id number] BIN number: [id number] PCN number: [id number] Group number: [id number] Subscriber name: Gricel Mancini Primary or Secondary Insurance:Primary Medication: Linzess Reason for Request: Insurance will cover 1 per day but not 2 Pharmacy and phone number: [facility] [phone] Rx plan and phone number: [facility] [phone] Is this a new medication for the patient? No patient was taking one per day and it was covered What alternative medications does the pharmacy have in stock?: n/a Thank you, Adele Lundberg Manager Trust I [facility] ([facility]) 10/27/2023,9:10 AM documented in this encounter Plan of Treatment Upcoming Encounters Date Type Department Care Team (Late st Contact Info) Description 11/22/2023 1:00 PM EDT Therapy Psychology, [place] [address] [facility] [phone] Ghazal Best LCSW 21 [place] [address] 12/01/2023 9:00 AM EDT Nurse Only Ancillary 1st Floor, [place] [phone] Nurse Harlan Carter 21 [place] [address] 12/13/2023 9:20 AM EDT Office Visit Nutrition & Weight Management, [facility] [address] [place] [address] Martine Mcelroy PA-C [address] [place] [address] 12/13/2023 10:00 AM EDT Nutrition Services Nutrition & Weight Management, [facility] 132 [facility] [place] [address] Perla Torres RDN [address] [place] [address] 12/27/2023 9:00 AM EDT Office Visit Psychiatry, [place] 21 [place] [address] Siomara Cole CRNP [address] [facility] [place] [address] 12/29/2023 10:13 AM EDT Hospital Encounter OR GL, Operating Room, [facility] - 4th Floor [address] [place] [address] Cristiano Alaniz, DO [address] [place] [address] 12/29/2023 10:13 AM EDT - 12/29/2023 10:56 AM EDT Surgery OR [facility], Operating Room, [facility] - 4th Floor [address] [place] [address] Cristiano Alaniz, DO [address] [place] [address] COLONOSCOPY FLEXIBLE PROXIMAL DIAGNOSTIC 01/16/2024 12:00 PM EDT Office Visit Family Practice, [place] 21 [facility] [place] [phone] Sarah Saavedra PA-C 21 [facility] [place] [address] 02/02/2024 10:40 AM EDT Office Visit Interventional Pain Ctr Angelia Ayala [address] [place] [address] Traci Ricardo MD 400 [facility] [place] [address] 03/01/2024 11:20 AM EDT Office Visit Neurology [facility] Katina [place] [address] [facility] [place] [place] [address] Maureen Bowie MD 200 [facility] [place] [place] [address] 03/05/2024 9:30 AM EDT Office Visit Interventional Pain Ctr Angelia Ayala [address] [place] [address] Dveon Damon PA-C 16 [place] [address] Scheduled Procedures Name Priority Associated Diagnoses Date/Ti [...] this encounter Medical Devices Implanted Type Area Motion Picture Photographer Device Identifier Shelf Expiration Date Model / Serial / Lot Plate Small Mtpj - [id number] Implanted:Qty: 1 on 11/15/2017 by Cristobal Calvillo MD at [place] [facility] Left: Foot [id number] / / Screw Locking 2.7x14mm - [id number] Implanted:Qty: 1 on 11/15/2017 by Cristobal Calvillo MD at [place] [facility] Left: Foot [id number] / / 2.7 X 16mm Locking Screw Implanted:Qty: 2 on 11/15/2017 by Cristobal Calvillo MD at [place] [facility] Left: Foot [employer] [id number] / / 2.7 X 20 Locking Screw Implanted:Qty: 1 on 11/15/2017 by Cristobal Calvillo MD at [place] [facility] Left: Foot [employer] [id number] / / 2.7 X 18mm Locking Screw Implanted:Qty: 1 on 11/15/2017 by Cristobal Calvillo MD at [place] [facility] Left: Foot [employer] 5141-2899 / / Screw Locking 2.7x10mm - [id number] Implanted:Qty: 1 on 11/15/2017 by Cristobal Calvillo MD at [place] [facility] Left: Foot [employer] [id number] / / 4.0mm X 44 Mm Compression Screw Implanted:Qty: 1 on 10/09/2018 by Bao Hernández MD at [place] [facility] Left: Foot AR-8740-44 H / / Description:Implant from set 2.5x30 Compression Screw Implanted:Qty: 1 on 10/09/2018 by Bao Hernández MD at [place] [facility] Left: Foot [employer] AR-8725-30 H / / Screw [employer] 2.7gpq17oq - [id number] Implanted:Qty: 2 on 02/01/2022 by Bao Hernández MD at [place] [facility] Right: Toe [employer] 5614-4513 / / Plate Mtpj - [id number] Implanted:Qty: 1 on 02/01/2022 by Bao Hernández MD at [place] [facility] Right: Foot [employer] 2447-6952 / / Screw Locking 2.7x10mm - [id number] Implanted:Qty: 2 on 02/01/2022 by Bao Hernández MD at [place] [facility] Right: Foot [employer] 8082-0887 / / Screw Locking 2.7x12mm - [id number] Implanted:Qty: 3 on 02/01/2022 by Bao Hernández MD at [place] [facility] Right: Foot [employer] 8133-3732 / / Screw Locking 2.7x14mm - [id number] Implanted:Qty: 1 on 02/01/2022 by Bao Hernández MD at [place] [facility] Right: Foot [employer] 9967-1947 / / Screw [employer] 2.2tqp34sp - [id number] Implanted:Qty: 1 on 02/01/2022 by Bao Hernández MD at [place] [facility] Right: Toe [employer] 1925-5258 / / Port Implant W/8f Poly Cath - [id number] Implanted:Qty: 1 on 06/02/2022 by Lawrence Cat DO at OR [facility] Right: Chest CR BARD : PERIPHERAL VASCULAR [id number] 05/12/2023 [id number] / / [id number] documented as of this encounter Advance Directives Documents on File Type Date Recorded Patient Oiler Bander Expl anation POLST 12/03/2020 POLST PENNSYLVA ROSA [...] Agent Relationship Communication Ni Live Grandparent [facility] Health Care Agent Andria Addison Mother Emergency Contact Care Teams Public Relations Specialist Relationship Specialty Start Date End Date Sarah Saavedra PA-C 21 [place] [phone] PCP - General Physician Protein Purification Scientist 09/06/23 documented as of this encounter
--- OUTSIDE RECORDS SUMMARY | 2023-11-11 06:55 | External Medical Summary ---
Author Name Unknown Address Unknown Organization K01:[facility] - [address] [facility] [place] [address] Laboratory Report Ordering Provider Test Date Status MAKEDA ARGUETA 11/02/2023 08:10:12 Final Observation Date Value Abnormality Reference (Units ) Status BUN 11/02/2023 08:10:12 10 6-20 (mg/dL) Final Creatinine 11/02/2023 08:10:12 0.6 0.5-1.0 (mg/dL) Final Glomerular filtration rate/1.73 sq M.predicted [Volume Rate/Area] in Serum, Plasma or Blood by Creatinine-based formula (CKD-EPI) 11/02/2023 08:10:12 >90 >=60 (mL/min) Final eGFR is calculated based on the CKD-EPI 2020 equation Sodium 11/02/2023 08:10:12 142 135-146 (m mol/L) Final Potassium 11/02/2023 08:10:12 5.7 Above high normal 3. 5-5.1 (mmol/L) Final Result may be falsely elevat ed due to hemolysis. Cl 11/02/2023 08:10:12 111 Above high normal 98 -107 (mmol/L) Final CO2 11/02/2023 08:10:12 16 Below low normal 22- 32 (mmol/L) Final Anion gap 11/02/2023 08:10:12 15 7-15 (mmol /L) Final Glucose 11/02/2023 08:10:12 75 70-120 (mg /dL) Final Albumin 11/02/2023 08:10:12 3.9 3.8-5.0 (g /dL) Final AST (Aspartate aminotransferase) 11/02/2023 08:10:12 44 Above high normal 10-35 (U/L) Final Result may be falsely elevat ed due to hemolysis. Alk Phos 11/02/2023 08:10:12 68 35-130 (U/ L) Final Result may be falsely elevat ed due to hemolysis. Bilirubin, Total 11/02/2023 08:10:12 0.2 <=1 .2 (mg/dL) Final Calcium 11/02/2023 08:10:12 9.1 8.4-10.2 ( mg/dL) Final Protein 11/02/2023 08:10:12 6.2 6.0-8.3 (g /dL) Final ALT (Alanine aminotransferase) 11/02/2023 08:10:12 17 10-35 (U/L) Final Result may be falsely elevat ed due to hemolysis. Performing Location [facility] - [facility] [address] [facility] [address]
--- OUTSIDE RECORDS SUMMARY | 2023-11-11 06:55 | External Medical Summary | Summary of Care ---
Author Name Unknown Organization [facility] Address [address] [place] [address] Phone [phone] Care Team Providers Care Outside Solar Sales Consultant Name Role Phone Sarah Saavedra PA-C Primary Care Provider [phone] Reason for Visit * Reason Onset Date Comments Medication Pre-auth 10/27/2023 Encounter Details Date Type Department Care Team (Late st Contact Info) Description 10/27/2023 Telephone [facility] 21 [facility] [place] [phone] Sarah Saavedra PA-C 21 [place] [address] Medication Pre-auth Allergies Active Allergy Reactions [...] said itching Latex Itching 09/26/2013 Linezolid 10/23/2014 [place] Other (Please comment) High 12/29/2014 Became unresponsive [...] the morning. 90 Tablet 3 3 Active Additional Information Patient not taking.Reported on 10/06/2023 Promethazine HCl 25 MG Oral Tablet (Phenergan)Indicat ions:Nausea Take 1 Tablet by mouth every 6 hours as needed for Nausea. 30 Tablet 1 3 Active ZOLMitriptan 5 MG Oral Tablet (Zomig) One at onset migraine may repeat in 2 hours maximum 2 doses in 24 hours 10 Tablet 5 3 Active Albuterol Sulfate HFA 108 (90 Base) MCG/ACT Inhalation Aerosol SolutionIndication s:Wheezing INHALE 2 puffs BY MOUTH EVERY 4 HOURS NEEDED FOR wheezing 8.5 g 1 4 Active Baclofen 20 MG Oral Tablet TAKE 1 [...] suspected opioid overdose. Seek immediate medical attention. [email or web address] 1 Each 3 4 Active [...] for Itching. 30 g 1 4 Active Ipratropium-Albute rol 0.5-2.5 (3) MG/3ML Inhalation Solution (Duoneb)Indication s:Asthma in remission,COVID-19 virus infection Inhale 3 mL via nebulizer every 6 hours as needed for Shortness of Breath or Wheezing. 360 mL 1 4 Active Pantoprazole Sodium 40 MG Oral Tablet Delayed [...] then stop 15 g 1 4 Active Prazosin HCl 1 MG Oral Capsule (Minipress) Take 1 Capsule by mouth in the morning and 1 Capsule before bedtime. 60 Capsule 4 10/31/19 24 Active Famotidine 20 MG Oral Tablet (Pepcid)Indication s:Gastroesophageal reflux disease without esophagitis Take 1 Tablet by mouth daily as needed for Heartburn. 90 Tablet 1 4 Active Additional Information Patient not taking.Reported on 10/06/2023 Prochlorperazine Maleate 10 MG Oral Tablet (Compazine)Indicat ions:Nausea Take 1 Tablet by mouth every 6 hours as needed for Nausea. 30 Tablet 2 4 Active Ajovy 225 MG/1.5ML Subcutaneous Solution Prefilled Syringe ([employer] ) Inject 1.5 mL under the skin [...] 24 hours. 10 Tablet 5 4 Active diazePAM 2 MG Oral Tablet (Valium)Indication s:Spastic [...] October 27, 2023. 2 Tablet 4 10/31/19 24 Discontinu ed(Medicat ion/Dose Changed) Linzess 145 MCG Oral Capsule (linaCLOtide)Indic ations:Constipatio n, unspecified constipation type Take 2 Capsules by mouth in the morning. 60 Capsule 11 4 10/28/19 24 Discontinu ed(Medicat ion/Dose Changed) Hospital, Clinic, or Other Facility Administered Medication Ordered Dose Route Frequency Start Date End Date Status vitamin b-12 (Cyanocobalamin) inj 1,000 mcgIndications:S/P gastric bypass 1000 mcg IM [id number] 08/30/2023 06/03/2026 Active documented as of this [...] episo de depressed, severe, w/psychotic features 05/03/2022 group home current use of anticoagulant therapy 0 08/28/2021 Recurrent chest pain 07/31/2021 Last Assessment & Plan: Referred to cardiology for workup--seen in Jul. [place] atypical for ACS. ED workup neg for [...] & Plan: Primary reason for transfer from [facility] to [facility] rehab. C/o LE weakness and acute/chronic low back pain. Lumbar spine MRI reportedly performed @ [facility], not available for review Pt denies receiving steroid injections D/C IV dilaudid. Resume PO hydromorphone 4mg in setting of subjected acute on chronic low back pain, foot pain and now chest pain Encourage use of tylenol 1000mg or ibuprofen 600mg PRN Chronic suprapubic catheter 05/31/2014 Overview: Placed 05/26 @ [facility] by interventional radiology for urinary retention and [...] injections. Did not help. For discectomy at [facility] 08/31/06. Had subsequent MRSA graft Remove rods [...] 01/23: sees Dr. Mock (spine surgeon) @ [facility] 10/24: lumbar spinal surgery by Dr. Bob [...] a contraindication to starting her on opioids." [facility] discharge 10/04/15: patient exhibiting behavior of [...] 01/04/2023 Overview: Cysto neg 05/21/13. Following with [facility] urology Miri CERVANTES as of 09/26/2013. Resolved s/p laminectomy L4-S1 October 2013 @ [place] [address] Dr. Heard. Last Assessment & Plan: [...] mild persistent 12/08/200910/11 Overview: Per Asthma Taxonomy, Advyasmany mayes PFT 04/30/14: normal Acidosis 09/16/2009 02/02/2018 Overview: [...] wellbutrin 03/27: followed by Mauricio THOMPSON @ [facility] ADVANCE DIRECTIVE INFORMATION 11/17/2004 08/06/2022 Overview: No, Advance Directive brochure offered , patient declined. Allergic rhinitis 11/24/2001 11/30/2018 Overview: zyrtec Fatty liver 08/06/2022 Chronic sinusitis 11/30/2018 Overview: frequent documented as of this encounter (statuses as of 10/31/2023) Immunizations Name Administration Dates Next Due COVID-19 mRNA, LNP-s, No Pre serve, 2-Dose Series ([employer]) 06/25/2021,12/13/2020,11/15/2020 COVID-19, MRNA-LNP, 23-24, P F, 30 MCG/0.3 mL, 12 YRS AND ABOVE, IM (Widdle-Comirnat) 03/29/2023 Covid-19, Mrna, Lnp-s, Pf, B ivalent, 30 Mcg, IM, 12 yrs and above (Pfizer) 06/17/2022 H1N1 2009 Influenza, IM 05/27/2009 Pneumococcal Conjugate Vacci ne, 20-valent ([id number]) 12/15/2021 Pneumococcal Polysaccharide PPV23 (Pneumovax) 05/01/2008 Seasonal [...] encounter Miscellaneous Notes * Telephone Encounter - Adele Lundberg, scholastic aptitude test grader - 10/27/2023 9:09 AM EDT Pharmacy calling to inform doctor that the patient's insurance will not pay for this medication without a completed prior authorization. Did confirm this information with the pharmacy. Pt's current insurance information is as follows: Patient name: Gricel Mancini ID number: [id number] BIN number: [id number] PCN number: [id number] Group number: [id number] Subscriber name: Gricel Mancini Primary or Secondary Insurance:Primary Medication: Linzess Reason for Request: Insurance will cover 1 per day but not 2 Pharmacy and phone number: [facility] [phone] Rx plan and phone number: [facility] [phone] Is this a new medication for the patient? No patient was taking one per day and it was covered What alternative medications does the pharmacy have in stock?: n/a Thank you, Adele Lundberg Gym Manager [facility] 10/27/2023,9:10 AM documented in this encounter Plan of Treatment Upcoming Encounters Date Type Department Care Team (Late st Contact Info) Description 11/22/2023 1:00 PM EDT Therapy [facility] [phone] Ghazal Best LCSW [address] [place] [address] 12/01/2023 9:00 AM EDT Nurse Only Ancillary 1st Floor, [place] [address] Nurse Harlan Carter 21 [place] [address] 12/13/2023 9:20 AM EDT Office Visit Nutrition & Weight Management, [facility] [address] [place] [address] Martine Mcelroy PA-C 132 [facility] [place] [address] 12/13/2023 10:00 AM EDT Nutrition Services Nutrition & Weight Management, [facility] [address] [place] [address] Perla Torres RDN [address] [place] [address] 12/27/2023 9:00 AM EDT Office Visit [facility], [facility] [address] [place] [address] Siomara Cole CRNP 200 [facility], [place] [address] 12/29/2023 10:13 AM EDT Hospital Encounter OR GL, Operating Room, [facility] - 4th Floor [address] [place] [address] Cristiano Alaniz, DO [address] [place] [address] 12/29/2023 10:13 AM EDT - 12/29/2023 10:56 AM EDT Surgery OR GL, Operating Room, [facility] - 4th Floor [address] [place] [address] Cristiano Alaniz, DO [address] [place] [address] COLONOSCOPY FLEXIBLE PROXIMAL DIAGNOSTIC 01/16/2024 12:00 PM EDT Office Visit [facility], [facility] [address] [place] [phone] Sarah Saavedra PA-C [address] [place] [address] 02/02/2024 10:40 AM EDT [facility] [place] [address] [place] [address] Traci Ricardo MD [address] [place] [address] [place] [address] 03/01/2024 11:20 AM EDT Office Visit Neurology [facility] 200 [facility] [place] [address] Maureen Bowie MD 200 [facility] [place] [address] 03/05/2024 9:30 AM EDT Office Visit [facility] [place] Ayala [address] [place] [address] Devon Damon PA-C [address] [place] [address] Scheduled Procedures Name Priority Associated Diagnoses Date/Ti [...] this encounter Medical Devices Implanted Type Area Predatory Animal Exterminator Device Identifier Shelf Expiration Date Model / Serial / Lot Plate Small Mtpj - [id number] Implanted:Qty: 1 on 11/15/2017 by Cristobal Calvillo MD at OR [facility] Left: Foot [id number] / / Screw Locking 2.7x14mm - [id number] Implanted:Qty: 1 on 11/15/2017 by Cristobal Calvillo MD at OR [facility] Left: Foot 7160-6694 / / 2.7 X 16mm Locking Screw Implanted:Qty: 2 on 11/15/2017 by Cristobal Calvillo MD at OR [facility] Left: Foot [employer] 0922-5573 / / 2.7 X 20 Locking Screw Implanted:Qty: 1 on 11/15/2017 by Cristobal Calvillo MD at OR [facility] Left: Foot [employer] 8952-1372 / / 2.7 X 18mm Locking Screw Implanted:Qty: 1 on 11/15/2017 by Cristobal Calvillo MD at OR [facility] Left: Foot [employer] 0930-4927 / / Screw Locking 2.7x10mm - [id number] Implanted:Qty: 1 on 11/15/2017 by Cristobal Calvillo MD at OR [facility] Left: Foot [employer] 0351-2096 / / 4.0mm X 44 Mm Compression Screw Implanted:Qty: 1 on 10/09/2018 by Bao Hernández MD at OR [facility] Left: Foot AR-8740-44 H / / Description:Implant from set 2.5x30 Compression Screw Implanted:Qty: 1 on 10/09/2018 by Bao Hernández MD at OR [facility] Left: Foot [employer] AR-8725-30 H / / Screw [employer] 2.4cre80dt - [id number] Implanted:Qty: 2 on 02/01/2022 by Bao Hernández MD at OR [facility] Right: Toe EXACTECH 4704-9544 / / Plate Mtpj - [id number] Implanted:Qty: 1 on 02/01/2022 by Bao Hernández MD at OR [facility] Right: Foot EXACTECH 1081-8628 / / Screw Locking 2.7x10mm - [id number] Implanted:Qty: 2 on 02/01/2022 by Bao Hernández MD at OR [facility] Right: Foot EXACTECH 6890-6551 / / Screw Locking 2.7x12mm - [id number] Implanted:Qty: 3 on 02/01/2022 by Bao Hernández MD at OR [facility] Right: Foot [employer]ACTECH 5456-7272 / / Screw Locking 2.7x14mm - [id number] Implanted:Qty: 1 on 02/01/2022 by Bao Hernández MD at OR [facility] Right: Foot EXACTECH 9921-2139 / / Screw [employer] 2.1xtr04sp - [id number] Implanted:Qty: 1 on 02/01/2022 by Bao Hernández MD at OR [facility] Right: Toe EXACTECH 8222-7058 / / Port Implant W/8f Poly Cath - [id number] Implanted:Qty: 1 on 06/02/2022 by Lawrence Cat DO at OR [facility] Right: Chest CR BARD : PERIPHERAL VASCULAR [id number] 05/12/2023 [id number] / / [id number] documented as of this encounter Advance Directives Documents on File Type Date Recorded Patient Topology Teacher Expl anation KUSUM 12/03/2020 POLST IDETRICH ROSA ORDERS FOR LIFE-SUSTAINING TREATMENT * Full [...] Name Relationship Healthcare Agent Relationship Communication Ni ryanr Grandparent [facility] Health Care Agent Andria Addison Mother Emergency Contact [phone] (Mobile) Care Teams Outside Solar Sales Consultant Relationship Specialty Start Date End Date Sarah Saavedra PA-C 21 [place] [phone] PCP - General Physician Weblogic Developer 09/06/23 documented as of this encounter
--- OUTSIDE RECORDS SUMMARY | 2023-11-11 06:55 | External Medical Summary | Summary of Care ---
Author Name Unknown Organization [facility] Address [address] [place] [address] Phone [phone] Care Team Providers Care Mail Machine Operator Name Role Phone Sarah Saavedra PA-C Primary Care Provider [phone] [phone] Reason for Visit * Reason Comments Outpatient Testing Encounter Details Date Type Department Care Team ([facility] st Contact Info) Description 11/02/2023 7:50 AM EDT Laboratory Laboratory, [place] [address] [place] [address] [facility] [address] [place] [address] Anxiety state; Prolonged posttraumatic stress [...] said itching Latex Itching 09/26/2013 Linezolid 10/23/2014 [place] Other (Please comment) High 12/29/2014 Became unresponsive [...] suspected opioid overdose. Seek immediate medical attention. [email or web address] AcI 1 Each 3 07/28/2023 Active Additional [...] Ajovy 225 MG/1.5ML Subcutaneous Solution Prefilled Syringe ([employer] ) Inject 1.5 mL under the skin [...] 1,000 mcgIndications:S/P gastric bypass 1000 mcg IM [id number] 08/30/2023 06/03/2026 Active documented as of this [...] Referred to cardiology for workup--seen in Jul. [place] atypical for ACS. ED workup neg for [...] [facility] to [facility] rehab. C/o LE weakness and acute/chronic low [...] disc without myelopathy 03/03/2006 Overview: [place] L5-S1. [place] injections. Did not help. For discectomy at [...] a contraindication to starting her on opioids." [facility] discharge 10/04/15: patient exhibiting behavior of narcotic dependency (requesting escalation of IV dilaudid) Weakness of both upper extremities 08/21/2015 12/12/2019 Generalized weakness 03/01/2015 018 Chronic back pain 03/01/2015 03/03/2022 Paraplegia 02/19/2015 03/25/2016 MEDICATION USE AGREEMENT 06/07/2014 Overview: Pain contract established with [facility] ED 05/26 - give valium 5 [...] s/p laminectomy L4-S1 October 2013 @ [place] by Dr. Heard. Last Assessment & Plan: [...] wellbutrin 03/27: followed by Mauricio THOMPSON @ [facility] ADVANCE DIRECTIVE INFORMATION 11/17/2004 08/06/2022 Overview: No, Advance Directive brochure offered , patient declined. Allergic rhinitis 11/24/2001 11/30/2018 Overview: zyrtec Fatty liver 08/06/2022 Chronic sinusitis 11/30/2018 Overview: frequent documented as of this encounter (statuses as of 11/02/2023) Immunizations Name Administration Dates Next Due COVID-19 mRNA, LNP-s, No Pre serve, 2-Dose Series ([employer]) 06/25/2021,12/13/2020,11/15/2020 COVID-19, MRNA-LNP, 23-24, P F, 30 MCG/0.3 mL, 12 YRS AND ABOVE, IM (PFIZER-Comirnaty) 03/29/2023 Covid-19, Mrna, Lnp-s, Pf, B ivalent, 30 Mcg, IM, 12 yrs and above (Pfizer) 06/17/2022 H1N1 2009 Influenza, IM 05/27/2009 Pneumococcal Conjugate Vacci ne, 20-valent ([id number]) 12/15/2021 Pneumococcal Polysaccharide PPV23 (Pneumovax) 05/01/2008 Seasonal [...] Description 11/03/2023 3:40 PM EDT Telemedicine Family [facility], [place] [address] Cydney Moe MD [place] [phone] 11/22/2023 1:00 PM EDT Therapy Psychology, [place] [address] Ghazal Best, WIRE STRIPPER [address] [place] [address] 12/01/2023 9:00 AM EDT Nurse Only Ancillary 1st Floor, [place] [address] [place] [address] Emma, Nurse Fp [address] [place] [address] 12/13/2023 9:20 AM EDT Office Visit Nutrition & Weight Management, [facility] [place] [address] Martine Mcelroy, JAY [address] [place] [address] 12/13/2023 10:00 AM EDT Nutrition Services Nutrition & Weight Management, [facility] 132 [facility] [place] [address] Perla Torres RDN [facility] [place] [address] 12/27/2023 9:00 AM EDT Office Visit Psychiatry, [place] [address] [place] [address] Siomara Cole CRNP 200 [place] [address] 12/29/2023 10:13 AM EDT Hospital Encounter OR GLH, Operating Room, [facility] - 4th Floor [address] [place] [address] Cristiano Alaniz DO [address] [place] [address] 12/29/2023 10:13 AM EDT - 12/29/2023 10:56 AM EDT Surgery OR GLH, Operating Room, [facility] - 4th Floor [address] [place] [address] Cristiano Alaniz, [address] [place] [address] COLONOSCOPY FLEXIBLE PROXIMAL DIAGNOSTIC 01/16/2024 12:00 PM EDT Office Visit [facility], [place] 21 [facility] [place] [phone] Sarah Saavedra PA-C 21 [facility] [place] [address] 02/02/2024 10:40 AM EDT Office Visit [facility] Angelia Ayala [address] [place] [address] Traci Ricardo MD 400 [place] [address] 03/01/2024 11:20 AM EDT Office Visit Neurology [facility] 200 [place] [address] Maureen Bowie MD 200 [facility] [address] 03/05/2024 9:30 AM EDT Office Visit [facility] Angelia Ayala [address] [place] [address] Devon Damon PA-C [address] [place] [address] Pending Results Name Type Priority Associated Diagnoses [...] this encounter Medical Devices Implanted Type Area Freight Car Repairer Device Identifier Shelf Expiration Date Model / Serial / Lot Plate Small Mtpj - [id number] Implanted:Qty: 1 on 11/15/2017 by Cristobal Calvillo MD at OR [facility] Left: Foot 1863[address] / / Screw Locking 2.7x14mm - [id number] Implanted:Qty: 1 on 11/15/2017 by Cristobal Calvillo MD at OR [facility] Left: Foot 6957-9536 / / 2.7 X 16mm Locking Screw Implanted:Qty: 2 on 11/15/2017 by Cristobal Calvillo MD at [facility] Left: Foot [employer] 1712-0786 / / 2.7 X 20 Locking Screw Implanted:Qty: 1 on 11/15/2017 by Cristobal Calvillo MD at [facility] Left: Foot [employer] 0529-1302 / / 2.7 X 18mm Locking Screw Implanted:Qty: 1 on 11/15/2017 by Cristobal Calvillo MD at [facility] Left: Foot [employer] 4929-2539 / / Screw Locking 2.7x10mm - [id number] Implanted:Qty: 1 on 11/15/2017 by Cristobal Calvillo MD at OR [facility] Left: Foot [employer] / / [...] AR-8725-30 H / / Screw [employer] 2.9yoz14iv - [id number] Implanted:Qty: 2 on 02/01/2022 by Bao Hernández MD at OR [facility] Right: Toe EXACTECH 8020-1494 / / Plate Mtpj - [id number] Implanted:Qty: 1 on 02/01/2022 by Bao Hernández MD at OR [facility] Right: Foot EXACTECH 4004-9987 / / Screw Locking 2.7x10mm - [id number] Implanted:Qty: 2 on 02/01/2022 by Bao Hernández MD at OR [facility] Right: Foot EXACTECH / / Screw Locking 2.7x12mm - [id number] Implanted:Qty: 3 on 02/01/2022 by Bao Hernández MD at OR [facility] Right: Foot EXACTECH / / Screw Locking 2.7x14mm - [id number] Implanted:Qty: 1 on 02/01/2022 by Bao Hernández MD at OR [facility] Right: Foot [employer]ECH / / Screw [employer] 2.2cai87pr - [id number] Implanted:Qty: 1 on 02/01/2022 by Bao Hernández MD at OR [facility] Right: Toe EXACTECH 5946-9239 / / Port Implant W/8f Poly Cath - [id number] Implanted:Qty: 1 on 06/02/2022 by Lawrence Cat DO at OR [facility] Right: Chest CR BARD : PERIPHERAL VASCULAR [id number] 05/12/2023 [id number] / / [id number] documented as of this encounter Visit Diagnoses Diagnosis Anxiety state Anxiety state, unspecified Prolonged posttraumatic stress disorder Posttraumatic stress disorder RLQ abdominal pain Abdominal pain, right lower quadrant Constipation, unspecified constipation type Abnormal CT of the abdomen Nonspecific (abnormal) findings on radiological and other examination of abdominal area, including retroperitoneum documented in this encounter Advance Directives Documents on File Type Date Recorded Patient Patternmaker Wood Expl anation POL 12/03/2020 POLST KARLO LEE [...] Relationship Communication Ni Live Grandparent [facility] Care Agent Andria Addison Mother Emergency Contact Care Teams Mail Machine Operator Relationship Specialty Start Date End Date Sarah Saavedra PA-C 21 [place] [phone] PCP - General Physician Town Planner 09/06/23 documented as of this encounter
--- OUTSIDE RECORDS SUMMARY | 2023-11-11 06:55 | External Medical Summary | Summary of Care ---
Author Name Unknown Organization [facility] Address [address] [place] [address] Phone [phone] Care Team Providers Care Bottom Liner Name Role Phone Sarah Saavedra PA-C Primary Care Provider [phone] Reason for Visit * Reason Onset Date Comments Medication Pre-auth 10/27/2023 Encounter Details Date Type Department Care Team (Late st Contact Info) Description 10/27/2023 Telephone [facility] 21 [facility] [place] [phone] Sarah Saavedra PA-C 21 [facility] [place] [address] Medication Pre-auth Allergies Active Allergy Reactions [...] said itching Latex Itching 09/26/2013 Linezolid 10/23/2014 Gandy Other (Please comment) High 12/29/2014 Became unresponsive [...] Ajovy 225 MG/1.5ML Subcutaneous Solution Prefilled Syringe ([facility] ) Inject 1.5 mL under the skin [...] 1,000 mcgIndications:S/P gastric bypass 1000 mcg IM [id number] 08/30/2023 06/03/2026 Active documented as of this [...] episo de depressed, severe, w/psychotic features 05/03/2022 intermediate frame tender current use of anticoagulant therapy 0 08/28/2021 Recurrent chest pain 07/31/2021 Last Assessment & Plan: Referred to cardiology for workup--seen in Jul. [place] atypical for ACS. ED workup neg for [...] a contraindication to starting her on opioids." [facility] discharge 10/04/15: patient exhibiting behavior of narcotic dependency (requesting escalation of IV dilaudid) Weakness of both upper extremities 08/21/2015 12/12/2019 Generalized weakness 03/01/2015 018 Chronic back pain 03/01/2015 03/03/2022 Paraplegia 02/19/2015 03/25/2016 MEDICATION USE AGREEMENT 06/07/2014 Overview: Pain contract established with [facility] ED 05/26 - give valium [...] [facility] urology Miri Dixon BILLY as of 09/26/2013. Resolved s/p laminectomy L4-S1 October 2013 @ [place] [address] Dr[address] Heard. Last Assessment & Plan: [...] wellbutrin 03/27: followed by Mauricio THOMPSON @ [facility] ADVANCE DIRECTIVE INFORMATION 11/17/2004 08/06/2022 Overview: No, Advance Directive brochure offered , patient declined. Allergic rhinitis 11/24/2001 11/30/2018 Overview: zyrtec Fatty liver 08/06/2022 Chronic sinusitis 11/30/2018 Overview: frequent documented as of this encounter (statuses as of 10/31/2023) Immunizations Name Administration Dates Next Due COVID-19 mRNA, LNP-s, No Pre serve, 2-Dose Series (Cons[employer] Point) 06/25/2021,12/13/2020,11/15/2020 COVID-19, MRNA-LNP, 23-24, P F, 30 MCG/0.3 mL, 12 YRS AND ABOVE, IM ([employer]Comirnat) 03/29/2023 Covid-19, Mrna, Lnp-s, Pf, B ivalent, 30 Mcg, IM, 12 yrs and above (Consensus Point) 06/17/2022 DT - Diptheria/Tetanus (PEDS) 07/15/1991, 988,02/27/1987 DTWP - Dipth/Tet/Whole Cell Pertussis 1986 DTWP HIB - Dipth/Tet/Whole C ell Pert/HIB 1986 H1N1 2009 Influenza, IM 05/27/2009 Haemophilius B (HIB), unspecified 03/04/1988 Hepatitis B, 0-19 yrs 04/04/1997,10/30/1996,09/12 MMR - Measles/Mumps/Rubella Vaccine 08/13/1991,0 10/27/1987 Meningococcal Polysaccharide Vaccine (Menommune) 03/02/2005 OPV - Polio Virus Vaccine (Oral) 992,03/04/1988,02/27/1987,12/26,1986 PPD 07/24/1987 Pneumococcal Conjugate Vacci ne, 20-valent (Hgvbofv07) 12/15/2021 Pneumococcal Polysaccharide PPV23 (Pneumovax) 05/01/2008 Seasonal [...] encounter Miscellaneous Notes * Telephone Encounter - Ramiro Ignacio RPh - 10/31/2023 3:23 PM EDT Medication changed to once daily on 10/28/2023. Thank You, Ramiro Ignacio, Pharm-D Clinical Pharmacist [facility] ([facility]PS) (Formerly Telepharmacy) [phone] 10/31/2023, 3:23 PM * Telephone Encounter - Esperanza Cornelius PHARM Tech - 10/31/2023 3:06 PM EDT This is a new PA request. Upon review of this prior authorization request, I verified this request is appropriate. This is prescribed by a department for which [facility] is authorized to review prior [...] note, there is nothing currently pending in [facility] for this request. Please advise how to proceed. Thank you, Esperanza Cornelius [facility] [employer] Supervisor Social Service Manager Centralized Clinical Pharmacy Services (CCPS)(formerly Telepharmacy) 10/31/2023,3:06 PM * Telephone Encounter - Adele Lundberg PHARM Tech - 10/27/2023 9:09 AM EDT Pharmacy calling to inform doctor that the patient's insurance will not pay for this medication without a completed prior authorization. Did confirm this information with the pharmacy. Pt's current insurance information is as follows: Patient name: Gricel Mancini ID number: [id number] BIN number: [id number] PCN number: [id number] Group number: [id number] Subscriber name: Gricel Mancini Primary or Secondary Insurance:Primary Medication: Linzess Reason for Request: Insurance will cover 1 per day but not 2 Pharmacy and phone number: [facility] [phone] Rx plan and phone number: [facility] [phone] Is this a new medication for the patient? No patient was taking one per day and it was covered What alternative medications does the pharmacy have in stock?: n/a Thank you, Adele Lundberg [employer] Supervisor I [facility] ([facility]PS) 10/27/2023,9:10 AM documented in this encounter Plan of Treatment Upcoming Encounters Date Type Department Care Team (Late st Contact Info) Description 11/22/2023 1:00 PM EDT Therapy [facility], [facility] [phone] Ghazal Best LCSW [address] [place] [address] 12/01/2023 9:00 AM EDT Nurse Only Ancillary 1st Floor, [address] [place] [address] Emma, Nurse Claros 21 [facility] [place] [address] 12/13/2023 9:20 AM EDT Office Visit Nutrition & Weight Management, [facility] [address] [facility] [place] [address] Martine Mcelroy PA-C 132 [facility] [place] [address] 12/13/2023 10:00 AM EDT Nutrition Services Nutrition & Weight Management, [facility] [address] [facility] [place] [address] Perla Torres RDN 132 [facility] [place] [address] 12/27/2023 9:00 AM EDT Office Visit [facility], [facility] [place] [address] Cole, BILLY Lazcano [address] [facility] [place] [address] 12/29/2023 10:13 AM EDT Hospital Encounter OR [facility], Operating Room, [facility] - 4th Floor 400 [facility] [place] [address] Cristiano Alaniz DO 132 [facility] [place] [address] 12/29/2023 10:13 AM EDT - 12/29/2023 10:56 AM EDT Surgery OR [facility], Operating Room, [facility] - 4th Floor [facility] [place] [address] Cristiano Alaniz, DO [address] [place] [address] COLONOSCOPY FLEXIBLE PROXIMAL DIAGNOSTIC 01/16/2024 12:00 PM EDT Office Visit [facility] 21 [place] [phone] Sarah Saavedra PA-C 21 [place] [address] 02/02/2024 10:40 AM EDT Office Visit Interventional Pain Ctr Angelia Ayala [address] [place] [address] Traci Ricardo MD 400 [facility] [place] [address] 03/01/2024 11:20 AM EDT Office Visit Neurology [facility] 200 [facility] [place] [address] Maureen Bowie MD 200 [facility] [place] [address] 03/05/2024 9:30 AM EDT Office Visit Interventional Pain Ctr Angelia Ayala [address] [place] [address] Devon Damon PA-C 16 [place] [address] Scheduled Procedures Name Priority Associated Diagnoses Date/Ti [...] this encounter Medical Devices Implanted Type Area Concert Pianist Device Identifier Shelf Expiration Date Model / Serial / Lot Plate Small Mtpj - [id number] Implanted:Qty: 1 on 11/15/2017 by Cristobal Calvillo MD at OR [facility] Left: Foot 5938-5061 / / Screw Locking 2.7x14mm - [id number] Implanted:Qty: 1 on 11/15/2017 by Cristobal Calvillo MD at OR [facility] Left: Foot 0947-0255 / / 2.7 X 16mm Locking Screw Implanted:Qty: 2 on 11/15/2017 by Cristobal Calvillo MD at OR [facility] Left: Foot [employer] 0985-0908 / / 2.7 X 20 Locking Screw Implanted:Qty: 1 on 11/15/2017 by Cristobal Calvillo MD at OR [facility] Left: Foot [employer] 3465-0954 / / 2.7 X 18mm Locking Screw Implanted:Qty: 1 on 11/15/2017 by Cristobal Calvillo MD at OR [facility] Left: Foot [employer] 9655-2287 / / Screw Locking 2.7x10mm - [id number] Implanted:Qty: 1 on 11/15/2017 by Cristobal Calvillo MD at OR [facility] Left: Foot [employer] [id number] / / 4.0mm X 44 Mm Compression Screw Implanted:Qty: 1 on 10/09/2018 by Bao Hernández MD at OR [facility] Left: Foot AR-8740-44 H / / Description:Implant from set 2.5x30 Compression Screw Implanted:Qty: 1 on 10/09/2018 by Bao Hernández MD at OR [facility] Left: Foot [employer] AR-8725-30 H / / Screw [employer] 2.6wps16as - [id number] Implanted:Qty: 2 on 02/01/2022 by Bao Hernández MD at OR [facility] Right: Toe EXACTECH 9937-0650 / / Plate Mtpj - [id number] Implanted:Qty: 1 on 02/01/2022 by Bao Hernández MD at OR [facility] Right: Foot [employer] 5594-6689 / / Screw Locking 2.7x10mm - [id number] Implanted:Qty: 2 on 02/01/2022 by Bao Hernández MD at OR [facility] Right: Foot [employer] 1319-5969 / / Screw Locking 2.7x12mm - [id number] Implanted:Qty: 3 on 02/01/2022 by Bao Hernández MD at OR [facility] Right: Foot [employer] 0170-8000 / / Screw Locking 2.7x14mm - [id number] Implanted:Qty: 1 on 02/01/2022 by Bao Hernández MD at OR [facility] Right: Foot [employer] 8301-9927 / / Screw [employer] 2.5bib08bs - [id number] Implanted:Qty: 1 on 02/01/2022 by Bao Hernández MD at OR [facility] Right: Toe EXACTECH 8395-9687 / / Port Implant W/8f Poly Cath - [id number] Implanted:Qty: 1 on 06/02/2022 by Lawrence Cat DO at OR [facility] Right: Chest CR BARD : PERIPHERAL VASCULAR [id number] 05/12/2023 [id number] / / [id number] documented as of this encounter Advance Directives Documents on File Type Date Recorded Patient Information Strategist Expl anation POLST 12/03/2020 POLST KARLO LEE ORDERS FOR LIFE-SUSTAINING [...] Relationship Communication Ni Drabilioemiller Grandparent [facility] Health Care Agent Andria [place] Mother Emergency Contact Care Teams Bottom Liner Relationship Specialty Start Date End Date Sarah Saavedra PA-C 21 MICHAEL [place] [address] PCP - General Physician Tail Puller 09/06/23 documented as of this encounter
--- OUTSIDE RECORDS SUMMARY | 2023-11-11 06:56 | External Medical Summary | Summary of Care ---
Author Name Unknown Organization [facility] Address [address] [place] [address] Phone [phone] Care Team Providers Care Qc Manager Name Role Phone Sarah Saavedra PA-C Primary Care Provider [phone] Reason for Visit * Reason Comments Acute Encounter Details Date Type Department Care Team ([facility] st Contact Info) Description 10/28/2023 9:40 AM EDT Telemedicine [facility] 21 [facility] [place] [address] Cydney Moe MD 21 [place] [address] Constipation, unspecified constipation type*; Yeast vaginitis Allergies Active Allergy Reactions Criticality Noted Date [...] said itching Latex Itching 09/26/2013 Linezolid 10/23/2014 Marsing Other (Please comment) High 12/29/2014 Became unresponsive [...] suspected opioid overdose. Seek immediate medical attention. [email or web address] 1 Each 3 4 Active [...] Ajovy 225 MG/1.5ML Subcutaneous Solution Prefilled Syringe ([employer] ) Inject 1.5 mL under [...] before breakfast. 30 Capsule 11 4 Active Ondansetron HCl 4 MG Oral [...] WITH FOOD FOR 7 DAYS 4 10/31/19 Discontinu ed(Medicat ion/Dose Changed) oxyCODONE-Acetamin ophen 5-325 [...] 1,000 mcgIndications:S/P gastric bypass 1000 mcg IM [id number] 08/30/2023 06/03/2026 Active documented as of this [...] episo de depressed, severe, w/psychotic features 05/03/2022 halfway current use of anticoagulant therapy 0 08/28/2021 Recurrent chest pain 07/31/2021 Last Assessment & Plan: Referred to cardiology for workup--seen in Jul. [place] atypical for ACS. ED workup neg for [...] reason for transfer [place] [facility]hab. C/o LE weakness and acute/chronic low back pain. Lumbar spine MRI reportedly performed @ [facility], not available for review Pt denies receiving steroid injections D/C IV dilaudid. Resume PO hydromorphone 4mg in setting of subjected acute on chronic low back pain, foot pain and now chest pain Encourage use of tylenol 1000mg or ibuprofen 600mg PRN Chronic suprapubic catheter 05/31/2014 Overview: Placed 05/26 @ [facility] by interventional radiology for urinary [...] disc without myelopathy 03/03/2006 Overview: Rigth L5-S1. Afton injections. Did not help. For discectomy at [facility] 08/31/06. Had subsequent MRSA graft [...] Mock (spine surgeon) @ [facility] 10/24: lumbar spinal surgery by [...] a contraindication to starting her on opioids." [facility] discharge 10/04/15: patient exhibiting behavior of narcotic dependency (requesting escalation of IV dilaudid) Weakness of both upper extremities 08/21/2015 12/12/2019 Generalized weakness 03/01/2015 018 Chronic back pain 03/01/2015 03/03/2022 Paraplegia 02/19/2015 03/25/2016 MEDICATION USE AGREEMENT 06/07/2014 Overview: Pain contract established with [facility] ED 05/26 - give valium [...] neg 05/21/13. Following with [facility] urology Miri Destiny CERVANTES as of 09/26/2013. Resolved s/p laminectomy L4-S1 October 2013 @ [place] by Dr. Heard. Last Assessment & Plan: [...] followed by Mauricio THOMPSON @ [facility] ADVANCE DIRECTIVE INFORMATION 11/17/2004 08/06/2022 Overview: No, Advance Directive brochure offered , patient declined. Allergic rhinitis 11/24/2001 11/30/2018 Overview: zyrtec Fatty liver 08/06/2022 Chronic sinusitis 11/30/2018 Overview: frequent documented as of this encounter (statuses as of 10/31/2023) Immunizations Name Administration Dates Next Due COVID-19 mRNA, LNP-s, No Pre serve, 2-Dose Series ([employer]) 06/25/2021,12/13/2020,11/15/2020 COVID-19, MRNA-LNP, 23-24, P F, 30 MCG/0.3 mL, 12 YRS AND ABOVE, IM (Fracture-Comirnat) 03/29/2023 Covid-19, Mrna, Lnp-s, Pf, B ivalent, 30 Mcg, IM, 12 yrs and above (Pfizer) 06/17/2022 H1N1 2009 Influenza, IM 05/27/2009 Pneumococcal Conjugate Vacci ne, 20-valent ([id number]) 12/15/2021 Pneumococcal Polysaccharide PPV23 (Pneumovax) 05/01/2008 Seasonal [...] Progress Notes * Cydney Moe MD - 10/28/2023 9:45 AM EDT Images from the original note were not included. History of Present Illness Gricel Mancini is a 38 year old female that presents for No chief complaint on file. Acute visit. Patient had urologic procedure yesterday. Had cath change, cystoscopy, Botox injections. Next follow up with urology yet (4 weeks?) Patient is on Pyridium and Cipro 500 mg for 3 days. No fever, no chills. Patient reports pain after procedure. She did not sleep well last night due to pain, bladder spasm.She took Percocet at 5:30 p.m. She took another Percocet this morning at 5:30 in a.m. She usually takes Tylenol 3 1/2 tab every 4 hours 6, 11, full tab 3 p.m, one 9 p.m. Patient had two Tylenol 3 tablets yesterday Pain level 7/10. She reports pain 4/10 after Percocet. Fells slightly better than yesterday. Tylenol#3 due next Tuesday. Patient needs Diflucan refill (recent ABX use) Needs new script for Linzess (insurance allows only once daily) Physical Exam There were no vitals filed for this visit. Physical Exam Constitutional: Appearance: Normal appearance. Neurological: Mental Status: She is alert. I have reviewed the following results: None Assessment and Plan 1. Yeast vaginitis - Fluconazole 150 MG Oral Tablet (Diflucan); Take 1 Tablet by mouth every 3 days. Dispense: 3 Tablet; Refill: 0 2. Constipation, unspecified constipation type - Linzess 145 MCG Oral Capsule (linaCLOtide); Take 1 Capsule by mouth daily before breakfast. Dispense: 30 Capsule; Refill: 11 Wrap-Up As needed Time: I spent a total of 10-19 minutes (exact time 10 mins) on the date of service in preparation, delivery, and documentation of the care provided to Gricel Mancini excluding any time spent in the performance of separately billed services. Telemedicine: Patient location: HOME. I was in a hospital or clinic location. After connecting through [facility],patient was verified with two unique identifiers. Patient (or authorized legal route service representative) was then informed that this was [...] Description 11/22/2023 1:00 PM EDT Therapy Psychology, [place] [address] [address] [facility] [phone] Ghazal Best LCSW [address] [place] [address] 12/01/2023 9:00 AM EDT Nurse Only Ancillary 1st Floor, [place] [address] [place] [address] Nurse Harlan [place] 21 MIC[place]EL [place] [address] 12/13/2023 9:20 AM EDT Office Visit Nutrition & Weight Management, [address] [place] [address] Martine Mcelroy PA-C [address] [place] [address] 12/13/2023 10:00 AM EDT Nutrition Services Nutrition & Weight Management, [facility] [address] [place] [address] Perla Torres RDN [address] [place] [address] 12/27/2023 9:00 AM EDT Office Visit Psychiatry, [place] 21 [place] [address] Siomara Cole CRNP [facility] [address] 12/29/2023 10:13 AM EDT Hospital Encounter OR [facility], Operating Room, [facility] - 4th Floor [address] [place] [address] Cristiano Alaniz, DO [address] [place] [address] 12/29/2023 10:13 AM EDT - 12/29/2023 10:56 AM EDT Surgery OR [facility], Operating Room, [facility] - 4th Floor [address] [place] [address] Cristiano Alaniz, DO [address] [place] [address] COLONOSCOPY FLEXIBLE PROXIMAL DIAGNOSTIC 01/16/2024 12:00 PM EDT Office Visit [facility] [place] 21 [place] [phone] Sarah Saavedra PA-C 21 [facility] [place] [address] 02/02/2024 10:40 AM EDT Office Visit Interventional Pain Ctr Angelia Ayala 16 [place] [address] Traci Ricardo MD 400 [facility] [place] [address] 03/01/2024 11:20 AM EDT Office Visit [facility] 200 [facility] [place] [address] Maureen Bowie MD 200 [facility] [place] [address] 03/05/2024 9:30 AM EDT Office Visit Interventional Pain Ctr Angelia Ayala [address] [place] [address] Devon Damon PA-C 16 [place] [address] Scheduled Procedures Name Priority Associated Diagnoses Date/Ti [...] this encounter Medical Devices Implanted Type Area Mechanical Test Engineer Device Identifier Shelf Expiration Date Model / Serial / Lot Plate Small Mtpj - [id number] Implanted:Qty: 1 on 11/15/2017 by Cristobal Calvillo MD [place] [facility] [place]: Foot 0376-0575 / / Screw Locking 2.7x14mm - [id number] Implanted:Qty: 1 on 11/15/2017 by Cristobal Calvillo MD [place] [facility] Left: Foot 3678-4416 / / 2.7 X 16mm Locking Screw Implanted:Qty: 2 on 11/15/2017 by Cristobal Calvillo MD at [facility] Left: Foot [employer] 2507-0452 / / 2.7 X 20 Locking Screw Implanted:Qty: 1 on 11/15/2017 by Cristobal Calvillo MD [place] [facility] Left: Foot [employer] 1436-0905 / / 2.7 X 18mm Locking Screw Implanted:Qty: 1 on 11/15/2017 by Cristobal Calvillo MD [place] [facility] Left: Foot [employer] 4669-7336 / / Screw Locking 2.7x10mm - [id number] Implanted:Qty: 1 on 11/15/2017 by Cristobal Calvillo MD at [place] [facility] Left: Foot [employer] 1556-4851 / / 4.0mm X 44 Mm Compression Screw Implanted:Qty: 1 on 10/09/2018 by Bao Hernández MD at [place] [facility] Left: Foot AR-8740-44 H / / Description:Implant from set 2.5x30 Compression Screw Implanted:Qty: 1 on 10/09/2018 by Bao Hernández MD at [place] [facility] Left: Foot [employer] AR-8725-30 H / / Screw [employer] 2.4pwc40gh - [id number] Implanted:Qty: 2 on 02/01/2022 by Bao Hernández MD at [place] [facility] Right: Toe EXACTECH 9988-1622 / / Plate Mtpj - [id number] Implanted:Qty: 1 on 02/01/2022 by Bao Hernández MD at [facility] Right: Foot EXACTECH 8725-8957 / / Screw Locking 2.7x10mm - [id number] Implanted:Qty: 2 on 02/01/2022 by Bao Hernández MD at [place] [facility] Right: Foot EXACTECH 0169-6536 / / Screw Locking 2.7x12mm - [id number] Implanted:Qty: 3 on 02/01/2022 by Bao Hernández MD at [place] [facility] Right: Foot [employer]ECH / / Screw Locking 2.7x14mm - [id number] Implanted:Qty: 1 on 02/01/2022 by Bao Hernández MD at [place] [facility] Right: Foot EXACTECH / / Screw [employer] 2.9hrb98ff - [id number] Implanted:Qty: 1 on 02/01/2022 by Bao Hernández MD at [place] [facility] Right: Toe EXACTECH 7432-8609 / / Port Implant W/8f Poly Cath - [id number] Implanted:Qty: 1 on 06/02/2022 by Lawrence Cat DO at OR [facility] Right: Chest CR BARD : PERIPHERAL VASCULAR [id number] 05/12/2023 [id number] / / [id number] documented as of this encounter Visit Diagnoses Diagnosis Constipation, unspecified constipation type- Primary Yeast vaginitis Candidiasis of vulva and vagina RLQ abdominal pain Abdominal pain, right lower quadrant Constipation, unspecified constipation type Abnormal CT of the abdomen Nonspecific (abnormal) findings on radiological and other examination of abdominal area, including retroperitoneum documented in this encounter Advance Directives Documents on File Type Date Recorded Patient Final Assembler Expl anation JOHN 12/03/2020 KUSUM LEE ORDERS FOR LIFE-SUSTAINING TREATMENT [...] Agent Relationship Communication Ni Donnyr Grandparent First [facility] Health Care Agent Andria [place] Mother Emergency Contact Care Teams Qc Manager Relationship Specialty Start Date End Date Sarah Saavedra PA-C 21 [place] [address] PCP - General Physician Reduction Plant Supervisor 09/06/23 documented as of this encounter
--- OUTSIDE RECORDS SUMMARY | 2023-11-11 06:56 | External Medical Summary | Summary of Care ---
Author Name Unknown Organization [facility] Address [address] [place] [address] Phone [phone] Care Team Providers Care Organ Tuner Electronic Name Role Phone Sarah Saavedra PA-C Primary Care Provider [phone] Reason for Visit * Reason Comments Pain Pt reports pain in g astric bypass site, especially after eating and drinking Encounter Details Date Type Department Care Team (Late st Contact Info) Description 10/31/2023 10:20 AM EDT Office Visit [facility] 21 [facility] [place] [phone] Cydney Moe MD 21 [facility] [place] [address] Epigastric pain*; Nausea; Cervicalgia; Lumbar radicular pain Allergies Active Allergy [...] said itching Latex Itching 09/26/2013 Linezolid 10/23/2014 Frederick Other (Please comment) High 12/29/2014 Became unresponsive [...] suspected opioid overdose. Seek immediate medical attention. [email or web address] 1 Each 3 4 Active [...] Ajovy 225 MG/1.5ML Subcutaneous Solution Prefilled Syringe (Fremanezumab-[facility] ) Inject 1.5 mL under the skin [...] or Vomiting. 30 Tablet 1 4 Active Acetaminophen-Code ine 300-30 MG Oral TabletIndications: Cervicalgia,Lumbar radicular pain Take 1 Tablet by mouth 3 times a day as needed for Pain, Severe. On Physical Therapy days may take one extra tablet as needed for severe pain. 23 Tablet 4 Active Sucralfate 1 GM Oral Tablet (Carafate)Indicati ons:Epigastric pain Take 1 Tablet by mouth 4 times a day before meals and at bedtime. half an hour before meals and at bedtime 120 Tablet 4 Active Ondansetron HCl 4 MG Oral TabletIndications: Nausea Take 1 Tablet by mouth every 8 hours as needed for Nausea or Vomiting. 30 Tablet 1 3 10/31/19 Discontinu ed(Refill) methylPREDNISolone 4 MG Oral Tablet Therapy Pack (Medrol Dosepack)Indicatio ns:Cervicalgia follow package directions Do not start before October 22, 2023. 21 Tablet 4 10/31/19 Discontinu ed(Medicat ion/Dose Changed) Acetaminophen-Code ine 300-30 MG Oral TabletIndications: Cervicalgia,Lumbar radicular pain Take 1 Tablet by mouth 3 times a day as needed for Pain, Severe. On Physical Therapy days may take one extra tablet as needed for severe pain. Do not start before October 24, 2023. 23 Tablet 4 10/31/19 Discontinu ed(Refill) Nitrofurantoin Monohyd Macro 100 MG [...] Tablet 4 10/31/19 Discontinu ed(Medicat ion/Dose Changed) Hospital, Clinic, or Other Facility Administered Medication Ordered Dose Route Frequency Start Date End Date Status vitamin b-12 (Cyanocobalamin) inj 1,000 mcgIndications:S/P gastric bypass 1000 mcg IM [id number] 08/30/2023 06/03/2026 Active documented as of this [...] episo de depressed, severe, w/psychotic features 05/03/2022 [facility] current use of anticoagulant therapy 0 08/28/2021 Recurrent chest pain 07/31/2021 Last Assessment & Plan: Referred to cardiology for workup--seen in Jul. [place] atypical for ACS. ED workup neg for [...] from [facility] to [facility] acute rehab. C/o LE [...] 04/04/20 Last Assessment & Plan: Followed by psych/[facility] Ambulatory dysfunction 01/31/202001/04 Low back pain with [...] a contraindication to starting her on opioids." [facility] discharge 10/04/15: patient exhibiting behavior of narcotic dependency (requesting escalation of IV dilaudid) Weakness of both upper extremities 08/21/2015 12/12/2019 Generalized weakness 03/01/2015 018 Chronic back pain 03/01/2015 03/03/2022 Paraplegia 02/19/2015 03/25/2016 MEDICATION USE AGREEMENT 06/07/2014 Overview: Pain contract established with [facility] ED [...] 03/27: followed by Mauricio THOMPSON @ [facility] ADVANCE DIRECTIVE INFORMATION 11/17/2004 08/06/2022 Overview: No, Advance Directive brochure offered , patient declined. Allergic rhinitis 11/24/2001 11/30/2018 Overview: zyrtec Fatty liver 08/06/2022 Chronic sinusitis 11/30/2018 Overview: frequent documented as of this encounter (statuses as of 10/31/2023) Immunizations Name Administration Dates Next Due COVID-19 mRNA, LNP-s, No Pre serve, 2-Dose Series ([employer] 06/25/2021,12/13/2020,11/15/2020 COVID-19, MRNA-LNP, 23-24, P F, 30 MCG/0.3 mL, 12 YRS AND ABOVE, IM (PFIZER-Comirnaty) 03/29/2023 Covid-19, Mrna, Lnp-s, Pf, B ivalent, 30 Mcg, IM, 12 yrs and above (Pfizer) 06/17/2022 H1N1 2009 Influenza, IM 05/27/2009 Pneumococcal Conjugate Vacci ne, 20-valent ([id number]) 12/15/2021 Pneumococcal Polysaccharide PPV23 (Pneumovax) 05/01/2008 Seasonal [...] Passive Smoke Exposure: Past Smokeless Tobacco: Never Tobacco Cessation:Counseling Given: Not Answered Comments:denies Alcohol Use Standard Drinks/Week Comments No [...] Sign Reading Time Taken Comments Blood Pressure 132/80 10/31/2023 10:06 AM EDT Pulse 97 10/31/2023 10:06 AM EDT Temperature 36.3 C (97.4 F) 10/31/2023 10:06 AM E DT Respiratory Rate 18 10/31/2023 10:06 AM EDT Oxygen Saturation 98% 10/31/2023 10:06 AM EDT Inhaled Oxygen Concentration - - Weight - - Height - - Body Mass Index - - documented in this encounter Functional Status Functional [...] Progress Notes * Cydney Moe MD - 10/31/2023 10:20 AM EDT Images from the original note were not included. History of Present Illness Gricel Mancini is a 38 year old female that presents for Pain (Pt reports pain in gastric bypass site, especially after eating and drinking) Acute visit. Patient reports epigastric pain for few days, no vomiting, + nausea. + heartburn, BM normal S/p gastric bypass 2021. No change in the diet. Seen in ED 10/29/2023, note reviewed. CT abd/pelvis stable Needs refills Physical Exam Vitals: 10/31/23 1006 Temp: 36.3 C (97.4 F) Pulse: 97 Resp: 18 SpO2: 98% BP: 132/80 BP Readings from Last 3 Encounters: 10/31/23 132/80 10/30/23 149/94 10/21/23 119/89 Wt Readings from Last 3 Encounters: 10/29/23 95.3 kg (210 lb) 10/21/23 95.3 kg (210 lb) 10/12/23 95.3 kg (210 lb) BMI Readings from Last 3 Encounters: 10/29/23 41.01 kg/m 10/21/23 41.01 kg/m 10/12/23 41.01 kg/m Physical Exam Constitutional: General: She is not in acute distress. Appearance: Normal appearance. HENT: Head: Normocephalic and atraumatic. Right Ear: External ear normal. Left Ear: External ear normal. Nose: Nose normal. Eyes: Conjunctiva/sclera: Conjunctivae normal. Cardiovascular: Rate and Rhythm: Normal rate and regular rhythm. Pulmonary: Effort: Pulmonary effort is normal. Breath sounds: Normal breath sounds. Abdominal: General: Bowel sounds are normal. There is no distension. Palpations: Abdomen is soft. Tenderness: There is abdominal tenderness in the epigastric area. There is no guarding or rebound. Comments: mild Musculoskeletal: Right lower leg: No edema. Left lower leg: No edema. Skin: General: Skin is warm and dry. Findings: No rash. Neurological: Mental Status: She is alert and oriented to person, place, and time. Comments: Electric scooter , Cerebral palsy Psychiatric: Mood and Affect: Mood normal. Behavior: Behavior normal. I have reviewed the following results: None Assessment and Plan 1. Nausea - Ondansetron HCl 4 MG Oral Tablet; Take 1 Tablet by mouth every 8 hours as needed for Nausea or Vomiting. Dispense: 30 Tablet; Refill: 1 2. Cervicalgia - Acetaminophen-Codeine 300-30 MG Oral Tablet; Take 1 Tablet by mouth 3 times a day as needed for Pain, Severe. On Physical Therapy days may take one extra tablet as needed for severe pain. Dispense:23 Tablet; Refill: 0 - refill only 3. Lumbar radicular pain - Acetaminophen-Codeine 300-30 MG Oral Tablet; Take 1 Tablet by mouth 3 times a day as needed for Pain, Severe. On Physical Therapy days may take one extra tablet as needed for severe pain. Dispense:23 Tablet; Refill: 0 - refill only 4. Epigastric pain - Sucralfate 1 GM Oral Tablet (Carafate); Take 1 Tablet by mouth 4 times a day before meals and at bedtime. half an hour before meals and at bedtime Dispense: 120 Tablet; Refill: 0 - continue PPI, message to GI sent Wrap-Up As needed Time: I spent a total of 10-19 minutes (exact time 15 mins) on the date of service in preparation, delivery, and documentation of the care provided to Gricel Mancini excluding any time spent in the performance of separately billed services. documented in this encounter Nursing Notes * Radha Graf LPN - 10/31/2023 10:00 AM EDT Chief Complaint Patient presents with Pain Pt reports pain in gastric bypass site, especially after eating and drinking documented in this encounter Plan of Treatment Upcoming Encounters Date Type Department Care Team (Late st Contact Info) Description 11/22/2023 1:00 PM EDT Therapy [facility], [place] [facility] [phone] Ghazal Best LCSW [address] [place] [place] [id number] 12/01/2023 9:00 AM EDT Nurse Only Ancillary 1st Floor, [place] [address] Nurse Harlan Carter 21 [place] [place] [address] 12/13/2023 9:20 AM EDT Office Visit Nutrition & Weight Management, [facility] [address] [place] [address] Martine Mcelroy PA-C [address] [place] [address] 12/13/2023 10:00 AM EDT Nutrition Services Nutrition & Weight Management, [facility] [address] [address] Perla Torres RDN [address] [place] [place] [address] 12/27/2023 9:00 AM EDT Office Visit [facility] 21 [place] [address] Siom[facility] Cole [facility] [address] [facility] [address] 12/29/2023 10:13 AM EDT Hospital Encounter OR [facility], Operating Room, [facility] - 4th Floor [address] [place] [address] Cristiano Alaniz, DO [address] [place] [address] 12/29/2023 10:13 AM EDT - 12/29/2023 10:56 AM EDT Surgery OR [facility], Operating Room, [facility] - 4th Floor [address] [place] [address] Cristiano Alaniz, DO [address] [place] [address] COLONOSCOPY FLEXIBLE PROXIMAL DIAGNOSTIC 01/16/2024 12:00 PM EDT Office Visit [facility] [place] [phone] Sarah Saavedra PA-C 21 [facility] [place] [place] [address] 02/02/2024 10:40 AM EDT Office Visit [facility] [place] [address] [place] [address] Traci Ricardo MD [address] [place] [address] [place] [address] 03/01/2024 11:20 AM EDT Office Visit Neurology [facility] 200 [facility] [place] [address] Maureen Bowie MD [address] [place] [address] 03/05/2024 9:30 AM EDT Office Visit [facility] [place] [address] [place] [address] Devon Damon PA-C [address] [place] [address] Scheduled Procedures Name Priority Associated Diagnoses Date/Ti [...] this encounter Medical Devices Implanted Type Area Shoe Salesperson Device Identifier Shelf Expiration Date Model / Serial / Lot Plate Small Mtpj - [id number] Implanted:Qty: 1 on 11/15/2017 by Cristobal Calvillo MD at OR [facility] Left: Foot [id number] / / Screw Locking 2.7x14mm - [id number] Implanted:Qty: 1 on 11/15/2017 by Cristobal Calvillo MD at OR [facility] Left: Foot [id number] / / 2.7 X 16mm Locking Screw Implanted:Qty: 2 on 11/15/2017 by Cristobal Calvillo MD at OR [facility] Left: Foot [employer] [id number] / / 2.7 X 20 Locking Screw Implanted:Qty: 1 on 11/15/2017 by Cristobal Calvillo MD at OR [facility] Left: Foot [employer] [id number] / / 2.7 X 18mm Locking Screw Implanted:Qty: 1 on 11/15/2017 by Cristobal Calvillo MD at OR [facility] Left: Foot [employer] [id number] / / Screw Locking 2.7x10mm - [id number] Implanted:Qty: 1 on 11/15/2017 by Cristobal Calvillo MD at OR [facility] Left: Foot [employer] [id number] / / 4.0mm X 44 Mm Compression Screw Implanted:Qty: 1 on 10/09/2018 by Bao Hernández MD at OR [facility] Left: Foot AR-8740-44 H / / Description:Implant from set 2.5x30 Compression Screw Implanted:Qty: 1 on 10/09/2018 by Bao Hernández MD at OR [facility] Left: Foot [employer] AR-8725-30 H / / Screw [employer] 2.7pji75my - [id number] Implanted:Qty: 2 on 02/01/2022 by Bao Hernández MD at OR [facility] Right: Toe [employer] [id number] / / Plate Mtpj - [id number] Implanted:Qty: 1 on 02/01/2022 by Bao Hernández MD at OR [facility] Right: Foot [employer] [id number] / / Screw Locking 2.7x10mm - [id number] Implanted:Qty: 2 on 02/01/2022 by Bao Hernández MD at OR [facility] Right: Foot [employer] [id number] / / Screw Locking 2.7x12mm - [id number] Implanted:Qty: 3 on 02/01/2022 by Bao Hernández MD at OR [facility] Right: Foot [employer] [id number] / / Screw Locking 2.7x14mm - [id number] Implanted:Qty: 1 on 02/01/2022 by Bao Hernández MD at OR [facility] Right: Foot [employer] 5551-6079 / / Screw [employer] 2.8uvr59bg - [id number] Implanted:Qty: 1 on 02/01/2022 by Bao Hernández MD at OR [facility] Right: Toe [employer] 6975-9012 / / Port Implant W/8f Poly Cath - [id number] Implanted:Qty: 1 on 06/02/2022 by Lawrence Cat DO at OR [facility] Right: Chest CR BARD : PERIPHERAL VASCULAR [id number] 05/12/2023 [id number] / / [id number] documented as of this encounter Visit Diagnoses Diagnosis Epigastric pain- Primary Abdominal pain, epigastric Nausea Nausea alone Cervicalgia Lumbar radicular pain Thoracic or lumbosacral neuritis or radiculitis, unspecified RLQ abdominal pain Abdominal pain, right lower quadrant Constipation, unspecified constipation type Abnormal CT of the abdomen Nonspecific (abnormal) findings on radiological and other examination of abdominal area, including retroperitoneum documented in this encounter Advance Directives Documents on File Type Date Recorded Patient Hemodialysis Lab Technician Expl anation POLST 12/03/2020 POLST PENNSYLVA ROSA [...] Relationship Communication Ni Drabilioemiller Grandparent [facility] Agent Andria Addison Mother Emergency Contact Care Teams Organ Tuner Electronic Relationship Specialty Start Date End Date Sarah Saavedra PA-C [address] [phone] PCP - General Physician Interventional Radiologist 09/06/23 documented as of this encounter
--- OUTSIDE RECORDS SUMMARY | 2023-11-11 06:57 | External Medical Summary | Summary of Care ---
Author Name Unknown Organization [facility] Address [address] [place] [address] Phone [phone] Care Team Providers Care Gear Machinist Name Role Phone Sarah Saavedra PA-C Primary Care Provider [phone] Encounter Details Date Type Department Care Team (Late st Contact Info) Description 10/31/2023 Population Health External Data Unspecified Department Allergies [...] said itching Latex Itching 09/26/2013 Linezolid 10/23/2014 [place] Other (Please comment) High 12/29/2014 Became unresponsive [...] the morning. 90 Tablet 3 03/11/2023 Active Additional Information Patient not taking.Reported on 10/06/2023 Promethazine HCl 25 MG Oral Tablet (Phenergan)Indicat ions:Nausea Take 1 Tablet by mouth every 6 hours as needed for Nausea. 30 Tablet 1 04/04/2023 Active ZOLMitriptan 5 MG Oral Tablet (Zomig) One at onset migraine may repeat in 2 hours maximum 2 doses in 24 hours 10 Tablet 5 05/18/2023 Active Ondansetron HCl 4 MG Oral TabletIndications: Nausea Take 1 Tablet by mouth every 8 hours as needed for Nausea or Vomiting. 30 Tablet 1 05/20/2023 Active Albuterol Sulfate HFA 108 (90 Base) MCG/ACT Inhalation Aerosol SolutionIndication s:Wheezing INHALE 2 puffs BY MOUTH EVERY 4 HOURS NEEDED FOR wheezing 8.5 g 1 06/21/2023 Active Baclofen 20 MG Oral Tablet TAKE [...] opioid overdose. Seek immediate medical attention. [email or web address]://[email or web address] [email or web address] AcI 1 Each 3 07/28/2023 Active Additional [...] for Itching. 30 g 1 08/09/2023 Active Ipratropium-Albute rol 0.5-2.5 (3) MG/3ML Inhalation Solution (Duoneb)Indication s:Asthma in remission,COVID-19 virus infection Inhale 3 mL via nebulizer every 6 hours as needed for Shortness of Breath or Wheezing. 360 mL 1 08/10/2023 Active Pantoprazole Sodium 40 MG Oral Tablet [...] then stop 15 g 1 09/13/2023 Active Famotidine 20 MG Oral Tablet (Pepcid)Indication s:Gastroesophageal reflux disease without esophagitis Take 1 Tablet by mouth daily as needed for Heartburn. 90 Tablet 1 09/19/2023 Active Additional Information Patient not taking.Reported on [...] 24 hours. 10 Tablet 5 10/05/2023 Active diazePAM 2 MG Oral Tablet (Valium)Indication s:Spastic diplegic cerebral palsy (HCC) 1 Three times a day, may cause sedation 90 Tablet 1 10/13/2023 Active methylPREDNISolone 4 MG Oral Tablet Therapy Pack (Medrol Dosepack)Indicatio ns:Cervicalgia follow package directions Do not start before October 22, 2023. 21 Tablet 10/22/2023 Active Acetaminophen-Code ine 300-30 MG Oral TabletIndications: Cervicalgia,Lumbar radicular pain Take 1 Tablet by mouth 3 times a day as needed for Pain, Severe. On Physical Therapy days may take one extra tablet as needed for severe pain. Do not start before October 24, 2023. 23 Tablet 10/24/2023 Active Nitrofurantoin Monohyd Macro 100 MG Oral Capsule (Macrobid) TAKE ONE CAPSULE BY MOUTH TWICE DAILY WITH FOOD FOR 7 DAYS 09/19/2023 Active oxyCODONE-Acetamin ophen 5-325 MG Oral Tablet (Percocet)Indicati ons:Bladder spasm Take 1 Tablet by mouth every 6 hours as needed for Pain, Severe (Pain). Take one tablet every 6 hours as needed for severe pain after procedure on 10/27/2023. Please skip two Tylenol # 3 tablets on 10/27/23 Do not start before October 27, 2023. 2 Tablet 10/27/2023 Active Fluconazole 150 MG Oral Tablet (Diflucan)Indicati ons:Yeast vaginitis Take 1 Tablet by mouth every 3 days. 3 Tablet 10/28/2023 Active Linzess 145 MCG Oral Capsule (linaCLOtide)Indic ations:Constipatio n, unspecified constipation type Take 1 Capsule by mouth daily before breakfast. 30 Capsule 11 10/28/2023 Active Hospital, Clinic, or Other Facility Administered Medication Ordered Dose Route Frequency Start Date End Date Status vitamin b-12 (Cyanocobalamin) inj 1,000 mcgIndications:S/P gastric bypass 1000 mcg IM [id number] 08/30/2023 06/03/2026 Active documented as of this [...] episo de depressed, severe, w/psychotic features 05/03/2022 [facility] current use of anticoagulant therapy 0 08/28/2021 Recurrent chest pain 07/31/2021 Last Assessment & Plan: Referred to cardiology for workup--seen in Jul. [place] atypical for ACS. ED workup neg for [...] & Plan: Primary reason for transfer from [facility] to [facility] rehab. C/o LE weakness and acute/chronic low back pain. Lumbar spine MRI reportedly performed @ [facility], not available for review Pt denies receiving steroid injections D/C IV dilaudid. Resume PO hydromorphone 4mg in setting of subjected acute on chronic low back pain, foot pain and now chest pain Encourage use of tylenol 1000mg or ibuprofen 600mg PRN Chronic suprapubic catheter 05/31/2014 Overview: Placed 05/26 @ [facility] by interventional radiology for urinary [...] injections. Did not help. For discectomy at [facility] 08/31/06. Had subsequent MRSA graft [...] 01/23: sees Dr. Mock (spine surgeon) @ [facility] 10/24: lumbar spinal surgery by [...] serous otitis media 10/19/2015 02/02/2018 Drug-seeking behavior 09/10/2015 10/23/ 2023 Overview: Pain management consult 09/05/15: do not give narcotics, "In addition,patient seems to drug seeking which is a contraindication to starting her on opioids." [facility] discharge 10/04/15: patient exhibiting behavior of narcotic dependency (requesting escalation of IV dilaudid) Weakness of both upper extremities 08/21/2015 12/12/2019 Generalized weakness 03/01/2015 018 Chronic back pain 03/01/2015 03/03/2022 Paraplegia 02/19/2015 03/25/2016 MEDICATION USE AGREEMENT 06/07/2014 Overview: Pain contract established with [facility] ED 05/26 - give valium 5 [...] 01/04/2023 Overview: Cysto neg 05/21/13. Following with [facility] urology Miri Dixon BILLY as of 09/26/2013. Resolved s/p laminectomy L4-S1 October 2013 @ [place] [address] Dr. Heard. Last Assessment & Plan: [...] wellbutrin 03/27: followed by Mauricio THOMPSON @ [facility] ADVANCE DIRECTIVE INFORMATION 11/17/2004 08/06/2022 Overview: No, Advance Directive brochure offered , patient declined. Allergic rhinitis 11/24/2001 11/30/2018 Overview: zyrtec Fatty liver 08/06/2022 Chronic sinusitis 11/30/2018 Overview: frequent documented as of this encounter (statuses as of 10/31/2023) Immunizations Name Administration Dates Next Due COVID-19 mRNA, LNP-s, No Pre serve, 2-Dose Series (Total Boox) 06/25/2021,12/13/2020,11/15/2020 COVID-19, MRNA-LNP, 23-24, P F, 30 MCG/0.3 mL, 12 YRS AND ABOVE, IM ([facility]) 03/29/2023 Covid-19, Mrna, Lnp-s, Pf, B ivalent, 30 Mcg, IM, 12 yrs and above (Total Boox) 06/17/2022 H1N1 2009 Influenza, IM 05/27/2009 Pneumococcal Conjugate Vacci ne, 20-valent ([id number]) 12/15/2021 Pneumococcal Polysaccharide PPV23 (Pneumovax) 05/01/2008 Seasonal [...] Team (Late st Contact Info) Description 10/31/2023 9:00 AM EDT Therapy Psychology, [place] [address] [facility] [place] [phone] Ghazal Best LCSW [place] [address] 10/31/2023 10:20 AM EDT Office Visit [facility] [place] [phone] Cydney Moe MD [place] [id number] 12/01/2023 9:00 AM EDT Nurse Only Ancillary 1st Floor, [place] [address] [place] [address] Nurse Harlan Carter [address] [place] [address] 12/13/2023 9:20 AM EDT Office Visit Nutrition & Weight Management, [facility] [address] [facility] [place] [address] Martine Mcelroy PA-C [address] [place] [address] 12/13/2023 10:00 AM EDT Nutrition Services Nutrition & Weight Management, [facility] [address] [facility] [place] [address] Perla Torres RDN [address] [facility] [place] [address] 12/27/2023 9:00 AM EDT Office Visit Psychiatry, [place] [address] [place] [address] Siomara Cole CRNP [address] [facility] [place] [address] 12/29/2023 10:13 AM EDT Hospital Encounter OR [facility], Operating Room, [facility] - 4th Floor [address] [place] [address] Cristiano Aalniz, DO [address] [place] [address] 12/29/2023 10:13 AM EDT - 12/29/2023 10:56 AM EDT Surgery OR GL, Operating Room, [facility] - 4th Floor [address] [place] [address] Cristiano Alaniz, DO [address] [place] [address] COLONOSCOPY FLEXIBLE PROXIMAL DIAGNOSTIC 01/16/2024 12:00 PM EDT Office Visit [facility], [place] [address] [facility] [place] [phone] Sarah Saavedra PA-C [address] [place] [address] 02/02/2024 10:40 AM EDT Office Visit [facility] Angelia [address] [place] [address] Traci Ricardo MD [address] [facility] [place] [address] 03/01/2024 11:20 AM EDT Office Visit Neurology [facility] [address] [facility] [place] [address] Maureen Bowie MD [address] [facility] [place] [address] 03/05/2024 9:30 AM EDT Office Visit [facility] [place] [place] [address] Devon Damon PA-C [address] [place] [address] Scheduled Procedures Name Priority Associated Diagnoses Date/Ti [...] this encounter Medical Devices Implanted Type Area Founder / Ceo Device Identifier Shelf Expiration Date Model / Serial / Lot Plate Small Mtpj - [id number] Implanted:Qty: 1 on 11/15/2017 by Cristobal Calvillo MD at OR [facility] Left: Foot / / Screw Locking 2.7x14mm - [id number] Implanted:Qty: 1 on 11/15/2017 by Cristobal Calvillo MD at OR [facility] Left: Foot / / 2.7 X 16mm Locking Screw Implanted:Qty: 2 on 11/15/2017 by Cristobal Calvillo MD at OR [facility] Left: Foot [employer] [id number] / / 2.7 X 20 Locking Screw Implanted:Qty: 1 on 11/15/2017 by Cristobal Calvillo MD at OR [facility] Left: Foot [employer] / / 2.7 X 18mm Locking Screw Implanted:Qty: 1 on 11/15/2017 by Cristobal Calvillo MD at OR [facility] Left: Foot [employer] / / Screw Locking 2.7x10mm - [id number] Implanted:Qty: 1 on 11/15/2017 by Cristobal Calvillo MD at OR [facility] Left: Foot [employer] / / 4.0mm X 44 Mm Compression Screw Implanted:Qty: 1 on 10/09/2018 by Bao Hernández MD at OR [facility] Left: Foot AR-8740-44 H / / Description:Implant from set 2.5x30 Compression Screw Implanted:Qty: 1 on 10/09/2018 by Bao Hernández MD at OR [facility] Left: Foot [employer] AR-8725-30 H / / Screw [employer] 2.7yeg12rf - [id number] Implanted:Qty: 2 on 02/01/2022 by Bao Hernández MD at OR [facility] Right: Toe [employer] [id number] / / Plate Mtpj - [id number] Implanted:Qty: 1 on 02/01/2022 by Bao Hernández MD at OR [facility] Right: Foot [employer] [id number] / / Screw Locking 2.7x10mm - [id number] Implanted:Qty: 2 on 02/01/2022 by Bao Hernández MD at OR [facility] Right: Foot [employer] [id number] / / Screw Locking 2.7x12mm - [id number] Implanted:Qty: 3 on 02/01/2022 by Bao Hernández MD at OR [facility] Right: Foot [employer] 5383-8938 / / Screw Locking 2.7x14mm - [id number] Implanted:Qty: 1 on 02/01/2022 by Bao Hernández MD at OR [facility] Right: Foot [employer] [id number] / / Screw [employer] 2.5bjp07jh - [id number] Implanted:Qty: 1 on 02/01/2022 by Bao Hernández MD at OR [facility] Right: Toe [employer] 5962-9365 / / Port Implant W/8f Poly Cath - [id number] Implanted:Qty: 1 on 06/02/2022 by Lawrence Cat DO at OR [facility] Right: Chest CR BARD : PERIPHERAL VASCULAR [id number] 05/12/2023 [id number] / / [id number] documented as of this encounter Advance Directives Documents on File Type Date Recorded Patient Supervisor Gluing Expl anation POL 12/03/2020 POLST KARLO LEE [...] Agent Relationship Communication Ni Donnyr Grandparent [facility] Health Care Agent Andria Addison Mother Emergency Contact Care Teams Gear Machinist Relationship Specialty Start Date End Date Sarah Saavedra PA-C [address] [place] [id number] PCP - General Physician Resource Forester 09/06/23 documented as of this encounter
--- OUTSIDE RECORDS SUMMARY | 2023-11-11 06:57 | External Medical Summary | Summary of Care ---
Author Name Unknown Organization [facility] Address [address] [place] [address] Phone [phone] Care Team Providers Care Area Plant Manager Name Role Phone Sarah Saavedra PA-C Primary Care Provider [phone] Reason for Visit * Reason Comments Anxiety * - Authorized Specialty Diagnoses / Procedures Referred By Lauro rinaldi Referred To Contact Referral ID Status Reason Start Date Expiration Date V isits Requested Visits Authorized [id number] Authorized 09/10/[phone] Encounter Details Date Type Department Care Team (Late st Contact Info) Description 10/31/2023 9:00 AM EDT Therapy Psychology, [place] [address] [place] [address] Ghazal Best HOTEL CUSTODIAN [address] [place], [place] [phone] JOSE (generalized anxiety disorder)* Allergies Active Allergy Reactions Criticality Noted Date [...] said itching Latex Itching 09/26/2013 Linezolid 10/23/2014 [place] Other (Please comment) High 12/29/2014 Became unresponsive [...] opioid overdose. Seek immediate medical attention. [email or web address]://www.youtube. com/watch?v=[email or web address] AcI 1 Each 3 07/28/2023 Active Additional [...] then stop 15 g 1 09/13/2023 Active Prazosin HCl 1 MG Oral Capsule (Minipress) Take 1 Capsule by mouth in the morning and 1 Capsule before bedtime. 60 Capsule 09/13/2023 Active Famotidine 20 MG Oral Tablet [...] Ajovy 225 MG/1.5ML Subcutaneous Solution Prefilled Syringe (Jerzyumab-[facility] ) Inject 1.5 mL under the [...] 1,000 mcgIndications:S/P gastric bypass 1000 mcg IM [id number] 08/30/2023 06/03/2026 Active documented as of this [...] episo de depressed, severe, w/psychotic features 05/03/2022 half-way current use of anticoagulant therapy 0 08/28/2021 Recurrent chest pain 07/31/2021 Last Assessment & Plan: Referred to cardiology for workup--seen in Jul. [place] atypical for ACS. ED workup neg for [...] Primary reason for [place] [facility] [place] [facility] rehab. C/o LE weakness and acute/chronic low back pain. Lumbar spine MRI reportedly performed @ [facility], not available for review Pt denies receiving steroid injections D/C IV dilaudid. Resume PO hydromorphone 4mg in setting of subjected acute on chronic low back pain, foot pain and now chest pain Encourage use of tylenol 1000mg or ibuprofen 600mg PRN Chronic suprapubic catheter 05/31/2014 Overview: Placed 05/26 @ [facility] by interventional radiology for urinary retention and [...] disc without myelopathy 03/03/2006 Overview: Rigth L5-S1. [place] injections. Did not help. For discectomy at [facility] 08/31/06. Had subsequent MRSA graft Remove rods [...] Dr. Mock (spine surgeon) @ [facility] 10/24: lumbar spinal surgery by Dr. Bob [...] a contraindication to starting her on opioids." [facility] discharge 10/04/15: patient exhibiting behavior of narcotic dependency (requesting escalation of IV dilaudid) Weakness of both upper extremities 08/21/2015 12/12/2019 Generalized weakness 03/01/2015 018 Chronic back pain 03/01/2015 03/03/2022 Paraplegia 02/19/2015 03/25/2016 MEDICATION USE AGREEMENT 06/07/2014 Overview: Pain contract established with [facility] ED 05/26 - give valium 5 [...] Cysto neg 05/21/13. Following with [facility] urology Miri CERVANTES as of 09/26/2013. Resolved s/p laminectomy L4-S1 October 2013 @ [place] by Dr. Heard. Last Assessment & Plan: [...] Asthma, mild persistent 12/08/200910/11 Overview: Per Asthma Sherif, yasmany Randhawa PFT 04/30/14: normal Acidosis 09/16/2009 [...] wellbutrin 03/27: followed by Mauricio THOMPSON @ [facility] ADVANCE DIRECTIVE INFORMATION 11/17/2004 08/06/2022 Overview: No, Advance Directive brochure offered , patient declined. Allergic rhinitis 11/24/2001 11/30/2018 Overview: zyrtec Fatty liver 08/06/2022 Chronic sinusitis 11/30/2018 Overview: frequent documented as of this encounter (statuses as of 10/31/2023) Immunizations Name Administration Dates Next Due COVID-19 mRNA, LNP-s, No Pre serve, 2-Dose Series (Inveshare) 06/25/2021,12/13/2020,11/15/2020 COVID-19, MRNA-LNP, 23-24, P F, 30 MCG/0.3 mL, 12 YRS AND ABOVE, IM ([employer]-ComirnatWhatser) 03/29/2023 Covid-19, Mrna, Lnp-s, Pf, B ivalent, 30 Mcg, IM, 12 yrs and above (Pfizer) 06/17/2022 H1N1 2009 Influenza, IM 05/27/2009 Pneumococcal Conjugate Vacci ne, 20-valent ([id number]) 12/15/2021 Pneumococcal Polysaccharide PPV23 (Pneumovax) 05/01/2008 Seasonal [...] as of this encounter Progress Notes * Ghazal Best LCSW - 10/31/2023 9:08 AM EDT PRIMARY CARE BEHAVIORAL HEALTH FOLLOW-UP 10/31/2023 Length of visit: 45 minutes (9:06am - 9:51am) Type of Visit: individual Treatment session number: 2 AGENDA & ACTION PLAN: 10/31/23- Gricel was oriented and engaged. Gricel reports that she has been having pain around her gastric bypass site. Gricel is worried about it but also feeling like a failure because she has gained ten pounds. Gricel reports that Depression has been improving with the increase in Cymbalta. Gricel states that she is not an immediate threat to herself or anyone else at this time. Reviewed progress with depression- Cymbalta has been increased. ProcessedX anxiety- anxiety triggers are a little with significant other, but has improved, crowds of people, and Bingo. Processed fear and threat of crowded people- Threat being killed. Processed feeling like a failure and being an emotional eater. Provided education on core beliefs Consequences to negative beliefs of failing Worked on putting into perspective the stress in putting all purpose of physical health to lose weight. Also discussed the benefits of working out to improve mental health Worked on putting into perspective black and white thinking with weight loss. Worked on putting into bigger picture overall how much Nargis has lost, her ability to do it, and the changes in behavior that has lead to weight gain due to thoughts and feelings about self. Plan: Gricel is going to work on challenging failure thoughts Optional: Interventions addressed in treatment thus far: Treatment/Intervention Visit 10/31/2023 1 2 3 4 5 6 Behavioral activation Behavior modification for poor health behaviors (e.g., smoking cessation) Breathing re-training mindfulness training Cognitive restructuring/diffusion X Exercise/physical activity Problem-solving Psychoeducation X Exposure and/or response prevention Supportive therapy Sleep hygiene Stimulus control Time in bed restriction Conduct WHO (BHCM,RIVAS,MTM) Adult [facility] Therapy Treatment Plan Treatment plan was developed on 09/14/23, treatment will continue to focus on goals below; Treatment update will occur when clinically indicated or by 03/12/2024. Reasons for deferring a goal or the objectives leading toward or related to a goal are documented in the progress note. Patient received copy of treatment plan: Patient seen in clinic, signature page signed electronically Patient's strengths and facilitating factors to care: Seeking help, Goal Oriented, Has hobbies, Good support system, Access to housing, and Cooperative Individuals responsible for carrying out plan: Patient Expected family or significant other involvement: Not applicable Treatment Barriers: none identified Crisis planning: What I can do if I ever experience a crisis (much worse symptoms, severe distress or thoughts of self-harm): Watching Show/Movie, Talking to loved one or friend or trusted person, and pet dog, go for a strole in the power chair People I can call in the event of a crisis: Friend: Alexandra Additional resources I can utilize if the previous steps are ineffective (e.g: ED, hotlines): Suicide and Crisis Lifeline - 988 and [facility] Crisis Contact Estimated frequency of treatment Estimated duration Estimated Completion Type of Service Interventions approximately every 2-4 weeks 8-11 sessions 6 months Individual Cognitive Behavioral Therapy (CBT),which includes psychoeducation, cognitive restructuring, relaxation/diaphragmatic breathing, problem-solving, and behavioral activation Patient was asked to rate how big of a problem each target symptom is, from 0 (not at all a problem) to 10 (a huge problem) Patient identified Goals/Needs "To learn strategies to cope with anxiety and depression" Objective/Discharge Criteria Need 1: Reduce symptoms of depression and anxiety as measured by the PHQ-9 and JOSE-7 (see below) JOSE<5 Please choose a method to track patient's improvement based on clinical assessment: Date 09/14/23 PHQ 6 JOSE-7 14 #9 0 Discharge Discussed with patient: Patient is not ready for discharge Is this the patients' initial treatment plan? Yes MENTAL STATUS EXAMINATION: No changes to mental status since last visit. No change in suicide or homicide risk status since last visit. Level of suicide completion risk:Low Risk (wish to or ideation without method, intent, plan, orbehavior; modifiable risk factors and strong protective factors; or no reported history of ideationor behavior): Pt has agreed to return for further psychotherapy. DIAGNOSES JOSE By report Major Depressive Disorder, PTSD, and Bipolar RETURN 2 WEEKS for individual cognitive behavioral therapy. Ghazal Best LCSW Primary Care Behavioral Health [address] [phone] documented in this encounter Plan of Treatment Upcoming Encounters Date Type Department Care Team (Late st Contact Info) Description 10/31/2023 10:20 AM EDT Office Visit Family [facility], [place] [address] [facility] [place] [phone] Cydney Moe MD [address] [facility] [place], [place] [phone] Arrived 11/22/2023 1:00 PM EDT Therapy Psychology, [place] [facility] [phone] Ghazal Best LCSW [address] [facility] [phone] 12/01/2023 9:00 AM EDT Nurse Only Ancillary 1st Floor, [place] [address] [facility] [place], [place] [phone] Emma Nurse Fp 21 [facility] [phone] 12/13/2023 9:20 AM EDT Office Visit Nutrition & Weight Management, [facility] [address] [address] Martine Mcelroy PA-C 132 [facility] [place] [address] 12/13/2023 10:00 AM EDT Nutrition Services Nutrition & Weight Management, [facility] [address] [place] [address] Perla Torres RDN [address] [place] [address] 12/27/2023 9:00 AM EDT Office Visit Psychiatry, [place] [address] [facility] [place] [address] [place], BILLY Lazcano [address] [place] [address] 12/29/2023 10:13 AM EDT Hospital Encounter OR [facility], Operating Room, [facility] - 4th Floor [address] [place] [address] Cristiano Alaniz, DO [address] [facility] [place] [address] 12/29/2023 10:13 AM EDT - 12/29/2023 10:56 AM EDT Surgery OR [facility], Operating Room, [facility] - 4th Floor [address] [place] [address] Cristiano Alaniz, DO [address] [place] [address] COLONOSCOPY FLEXIBLE PROXIMAL DIAGNOSTIC 01/16/2024 12:00 PM EDT Office Visit [facility], [place] [address] [place] [phone] Sarah Saavedra PA-C [address] [place] [address] 02/02/2024 10:40 AM EDT Office Visit [facility]ventional Pain Ctr Angelia Ayala [address] [facility] [place] [address] Traci Ricardo MD 400 [facility] [place] [address] 03/01/2024 11:20 AM EDT Office Visit Neurology [employer] [address] [place] [address] Maureen Bowie MD [address] [place] [address] 03/05/2024 9:30 AM EDT Office Visit Interventional Pain Ctr Angelia Ayala [address] [place] [address] Devon Damon PA-C [address] [place] [address] Scheduled Procedures Name Priority Associated Diagnoses Date/Ti [...] this encounter Medical Devices Implanted Type Area University Librarian Device Identifier Shelf Expiration Date Model / Serial / Lot Plate Small Mtpj - [id number] Implanted:Qty: 1 on 11/15/2017 by Cristobal Calvillo MD at [place] [facility] Left: Foot / / Screw Locking 2.7x14mm - [id number] Implanted:Qty: 1 on 11/15/2017 by Cristobal Calvillo MD at OR [facility] Left: Foot / / 2.7 X 16mm Locking Screw Implanted:Qty: 2 on 11/15/2017 by Cristobal Calvillo MD at OR [facility] Left: Foot [employer] / / 2.7 X 20 Locking Screw Implanted:Qty: 1 on 11/15/2017 by Cristobal Calvillo MD at OR [facility] Left: Foot [employer] / / 2.7 X 18mm Locking Screw Implanted:Qty: 1 on 11/15/2017 by Cristobal Calvillo MD at OR [facility] Left: Foot [employer] / / Screw Locking 2.7x10mm - [id number] Implanted:Qty: 1 on 11/15/2017 by Cristobal Calvillo MD at OR [facility] Left: Foot [employer] / / 4.0mm X 44 Mm Compression Screw Implanted:Qty: 1 on 10/09/2018 by Bao Hernández MD at OR [facility] Left: Foot AR-8740-44 H / / Description:Implant from set 2.5x30 Compression Screw Implanted:Qty: 1 on 10/09/2018 by Bao Hernández MD at OR [facility] Left: Foot [employer] AR-8725-30 H / / Screw [employer] 2.9bsx39ee - [id number] Implanted:Qty: 2 on 02/01/2022 by Bao Hernández MD at OR [facility] Right: Toe EXACTECH [id number] / / Plate Mtpj - [id number] Implanted:Qty: 1 on 02/01/2022 by Bao Hernández MD at OR [facility] Right: Foot [employer] 7414-7972 / / Screw Locking 2.7x10mm - [id number] Implanted:Qty: 2 on 02/01/2022 by Bao Hernández MD at OR [facility] Right: Foot [employer] 0547-3030 / / Screw Locking 2.7x12mm - [id number] Implanted:Qty: 3 on 02/01/2022 by Bao Hernández MD at OR [facility] Right: Foot [employer] 0087-0694 / / Screw Locking 2.7x14mm - [id number] Implanted:Qty: 1 on 02/01/2022 by Bao Hernández MD at OR [facility] Right: Foot [employer]CH [id number] / / Screw [employer] 2.0inn72ic - [id number] Implanted:Qty: 1 on 02/01/2022 by Bao Hernández MD at OR [facility] Right: Toe [employer]ECH [id number] / / Port Implant W/8f Poly Cath - [id number] Implanted:Qty: 1 on 06/02/2022 by Lawrence Cat DO at OR [facility] Right: Chest CR BARD : PERIPHERAL VASCULAR [id number] 05/12/2023 [id number] / / [id number] documented as of this encounter Visit Diagnoses Diagnosis JOSE (generalized anxiety disorder)- Primary Generalized anxiety disorder RLQ abdominal pain Abdominal pain, right lower quadrant Constipation, unspecified constipation type Abnormal CT of the abdomen Nonspecific (abnormal) findings on radiological and other examination of abdominal area, including retroperitoneum documented in this encounter Advance Directives Documents on File Type Date Recorded Patient Substance Addiction Coordinator Expl anation POLST 12/03/2020 POLST KARLO ROSA ORDERS FOR LIFE-SUSTAINING TREATMENT * Full [...] Relationship Communication Nirosana Mancini Grandparent [place] [facility] Health Care Agent Andria Addison Mother Emergency Contact Care Teams Area Plant Manager Relationship Specialty Start Date End Date Sarah Saavedra PA-C [address] [facility] [place] [address] PCP - General Physician Operator 09/06/23 documented as of this encounter
--- OUTSIDE RECORDS SUMMARY | 2023-11-11 06:58 | External Medical Summary ---
Author Name Unknown Address Unknown Organization K1F:[facility] [address] [facility] [place] [address] Laboratory Report Ordering Provider Test Date Status FRANSISCA JEROME 10/30/2023 01:16:05 Final Observation Date Value Abnormality Reference (Units ) Status Color of Urine by Auto 10/30/2023 01:16:05 Yellow Light Yellow, Yellow, Dark Yellow Final Clarity, Urine 10/30/2023 01:16:05 Clear Clear Final Glucose [Mass/volume] in Urine by Automated test strip 10/30/2023 01:16:05 Negative Negative (mg/dL) Final Bilirubin.total [Presence] in Urine by Automated test strip 10/30/2023 01:16:05 Negative Negative Final Ketones [Mass/volume] in Urine by Automated test strip 10/30/2023 01:16:05 Negative Negative (mg/dL) Final Specific gravity, Urine 10/30/2023 01:16:05 1.021 1.003-1.030 Final Hemoglobin [Presence] in Urine by Automated test strip 10/30/2023 01:16:05 Moderate Abnormal Negative Final pH, Urine 10/30/2023 01:16:05 5.5 5.0-7.5 (Units) Final Protein [Mass/volume] in Urine by Automated test strip 10/30/2023 01:16:05 Trace Abnormal Negative (mg/dL) Final Urobilinogen [Mass/volume] in Urine by Automated test strip 10/30/2023 01:16:05 0.2 0.2, 1.0 (mg/dL) Final Nitrite [Presence] in Urine by Automated test strip 10/30/2023 01:16:05 Negative Negative Final Leukocyte esterase [Presence] in Urine by Automated test strip 10/30/2023 01:16:05 Negative Negative Final RBC, Urine 10/30/2023 01:16:05 3-5 Abnormal 0-2 (/HPF) Final WBC, Urine 10/30/2023 01:16:05 6-9 Abnormal 0-2 (/HPF) Final Bacteria [#/area] in Urine sediment by Microscopy high power field 10/30/2023 01:16:05 51-100 Abnormal 0-25 (/HPF) Final CULTURE, URINE - [facility] 10/30/2023 01:16:05 Final Quantitative urine culture t o be performed Performing Location LABORATORY [facility] - [facility] [place] [address]
--- OUTSIDE RECORDS SUMMARY | 2023-11-11 06:58 | External Medical Summary ---
Author Name Unknown Address Unknown Organization K1F:LABORATORY [facility] - [address] [place] [address] Laboratory Report Ordering Provider Test Date Status FRANSISCA JEROME 10/29/2023 23:57:45 Final Observation Date Value Abnormality Reference (Units ) Status Lipase 10/29/2023 23:57:45 26 13-60 (U/L ) Final Performing Location LABORATORY [facility] - [address] [place] [address]
--- OUTSIDE RECORDS SUMMARY | 2023-11-11 06:58 | External Medical Summary ---
Author Name Unknown Address Unknown Organization K01:LABORATORY [facility] - [address] [place] [id number] Laboratory Report Ordering Provider Test Date Status FRANSISCA JEROME 10/30/2023 01:16:05 Final Observation Date Value Abnormality Reference (Units) Status Bacteria identified in Specimen by Culture 10/30/2023 01:16:05 No significant growth Final Test: Culture, Urine, Quanti tative
Specimen Source: Urine, Clean Catch
Specimen Type: Urine
Specimen Date: 10/30/2023 0116
Result Date: 10/31/2023 1012
Result Status: Final result
Resulting Lab: LABORATORY [facility]
[address]
[facility] [address]

CULTURE

No significant growth

null Performing Location LABORATORY [facility] - [address] [facility] [address]
--- OUTSIDE RECORDS SUMMARY | 2023-11-11 06:58 | External Medical Summary ---
Author Name Unknown Address Unknown Organization K1F:LABORATORY [facility] - [address] [place] [address] Laboratory Report Ordering Provider Test Date Status FRANSISCA JEROME 10/29/2023 23:57:45 Final hCG can serve as a screening assay for . However, early may not give a positive hCG test result. In addition, some non- women may have a hCG result slightly higher than the reference limit. Careful interpretation of the hCG with clinical history is required to determine whether the patient may be . Observation Date Value Abnormality Reference (Units ) Status Choriogonadotropin.intact +Beta subunit [Units/volume] in Serum or Plasma 10/29/2023 23:57:45 0.7 <=1.0 (mIU/mL) Final Performing Location LABORATORY [facility] - [address] [place] [address]
--- OUTSIDE RECORDS SUMMARY | 2023-11-11 06:58 | External Medical Summary ---
Author Name Unknown Address Unknown Organization K01:LABORATORY [facility] - [address] [facility] [place] [address] Laboratory Report Ordering Provider Test Date Status KANCHAN JEROMESILAS 10/29/2023 22:54:52 Final Observation Date Value Abnormality Reference (Units ) Status Bacterial vaginosis [Interpretation] in Vaginal fluid Qualitative 10/29/2023 22:54:52 Negative Negative Final Negative for Bacterial Vagin osis. Correlate results with other clinical findings. Tanna sp DNA [Presence] in Vaginal fluid by Probe 10/29/2023 22:54:52 Positive Abnormal Negative Final Tanna species group RNA de tected. Correlate results with other clinical findings. Tanna glabrata RNA [Presen ce] in Vaginal fluid by LISY with probe detection 10/29/2023 22:54:52 Positive Abnormal Negative Final Tanna glabrata RNA detecte d. Correlate results with other clinical findings. Trichomonas vaginalis DNA [P resence] in Vaginal fluid by Probe 10/29/2023 22:54:52 Negative Negative Final No Trichomonas vaginalis RNA detected. Performing Location LABORATORY [facility] - [address] [facility] [place] [address]
--- OUTSIDE RECORDS SUMMARY | 2023-11-11 06:58 | External Medical Summary ---
Author Name Unknown Address Unknown Organization K1F:LABORATORY [facility] - [address] [place] [address] Laboratory Report Ordering Provider Test Date Status QUEENIEFRANSISCA 10/29/2023 23:57:45 Final Less than 0.5 ng/mL: Low ris k for progression to sepsis. Review patients condition for localized infections.

0.5 to 2.0 ng/mL: Intermediate risk for progresion to sepsis. Review underlying conditions. Recommend repeat PCT after 6 hours has elapsed.

Greater than 2.0 ng/mL: high risk for progression to sepsis unless other causes are known. Observation Date Value Abnormality Reference (Units ) Status Procalcitonin [Mass/volume] in Serum or Plasma by Immunoassay 10/29/2023 23:57:45 0.06 <0.10 (ng/mL) Final Performing Location LABORATORY [facility] - [address] [place] [place] [address]
--- OUTSIDE RECORDS SUMMARY | 2023-11-11 06:58 | External Medical Summary | Summary of Care ---
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 Name Role Phone Sarah Saavedra PA-C Primary Care Provider [phone] Reason for Visit * Reason Comments Abdominal Pain * Auth/Cert Specialty Diagnoses / Procedures Referred By Lauro t Referred To Contact [facility] [address] [place] [address] Phone: [phone] Emergency Medicine [facility] [address] [place] [address] Referral ID Status Reason Start Date Expiration Date Visits Re quested Visits Authorized [id number] Encounter Details Date Type Department Care Team (Late st Contact Info) Description 10/29/2023 10:05 PM EDT - 10/30/2023 2:30 AM EDT Emergency [facility] Emergency Department ([facility]) [address] [place], [place] [id number] Jann Wilkins, [address] [place] [address] Lower abdominal pain (Primary Dx) Discharge Disposition: Home - [...] said itching Latex Itching 09/26/2013 Linezolid 10/23/2014 [place] Other (Please comment) High 12/29/2014 Became unresponsive [...] as of this encounter (statuses as of 10/30/2023) Medications Medication Sig Dispensed Refills Start Date [...] suspected opioid overdose. Seek immediate medical attention. https://[email or web address] [email or web address] com/watch?v=s59sVme2 AcI 1 Each 3 07/28/2023 Active Additional [...] Ajovy 225 MG/1.5ML Subcutaneous Solution Prefilled Syringe (TagTagCity-vfrm ) Inject 1.5 mL under the skin [...] 1,000 mcgIndications:S/P gastric bypass 1000 mcg IM [id number] 08/30/2023 06/03/2026 Active documented as of this encounter (statuses as of 10/30/2023) Active Problems Problem Noted Date Diagnosed Date [...] episo de depressed, severe, w/psychotic features 05/03/2022 skilled nursing current use of anticoagulant therapy 0 08/28/2021 Recurrent chest pain 07/31/2021 Last Assessment & Plan: Referred to cardiology for workup--seen in Jul. In[place] atypical for ACS. ED workup neg for [...] & Plan: Primary reason for transfer from [facility] to [facility]. C/o LE weakness and acute/chronic low back pain. Lumbar spine MRI reportedly performed @ [facility], not available for review Pt denies receiving steroid injections D/C IV dilaudid. Resume PO hydromorphone 4mg in setting of subjected acute on chronic low back pain, foot pain and now chest pain Encourage use of tylenol 1000mg or ibuprofen 600mg PRN Chronic suprapubic catheter 05/31/2014 Overview: Placed 05/26 @ [facility] by interventional radiology for [...] injections. Did not help. For discectomy at [facility] 08/31/06. Had subsequent MRSA [...] 01/23: sees Dr. Mock (spine surgeon) @ [facility] 10/24: lumbar spinal surgery [...] as of this encounter (statuses as of 10/30/2023) Resolved Problems Problem Noted Date Diagnosed Date [...] contraindication to starting her on opioids." [facility] discharge 10/04/15: patient exhibiting behavior of narcotic dependency (requesting escalation of IV dilaudid) Weakness of both upper extremities 08/21/2015 12/12/2019 Generalized weakness 03/01/2015 018 Chronic back pain 03/01/2015 03/03/2022 Paraplegia 02/19/2015 03/25/2016 MEDICATION USE AGREEMENT 06/07/2014 Overview: Pain contract established with [facility] ED 05/26 - give valium 5 [...] 01/04/2023 Overview: Cysto neg 05/21/13. Following with [facility] urology Miri Dixon BILLY as of 09/26/2013. Resolved s/p laminectomy L4-S1 October 2013 @ [place] [address] Dr[address] Heard. Last Assessment & Plan: [...] wellbutrin 03/27: followed by Mauricio THOMPSON @ [facility] ADVANCE DIRECTIVE INFORMATION 11/17/2004 08/06/2022 Overview: No, Advance Directive brochure offered , patient declined. Allergic rhinitis 11/24/2001 11/30/2018 Overview: zyrtec Fatty liver 08/06/2022 Chronic sinusitis 11/30/2018 Overview: frequent documented as of this encounter (statuses as of 10/30/2023) Immunizations Name Administration Dates Next Due COVID-19 mRNA, LNP-s, No Pre serve, 2-Dose Series (Brainient) 06/25/2021,12/13/2020,11/15/2020 COVID-19, MRNA-LNP, 23-24, P F, 30 MCG/0.3 mL, 12 YRS AND ABOVE, IM (SimpliField-Comirnat) 03/29/2023 Covid-19, Mrna, Lnp-s, Pf, B ivalent, 30 Mcg, IM, 12 yrs and above (Pfizer) 06/17/2022 H1N1 2009 Influenza, IM 05/27/2009 Pneumococcal Conjugate Vacci ne, 20-valent (Dedecnf39) 12/15/2021 Pneumococcal Polysaccharide PPV23 (Pneumovax) 05/01/2008 Seasonal [...] Sign Reading Time Taken Comments Blood Pressure 149/94 10/30/2023 1:30 AM EDT Pulse 94 10/30/2023 1:30 AM EDT Temperature 36 C (96.8 F) 10/29/2023 9:09 PM EDT Respiratory Rate 18 10/30/2023 1:30 AM EDT Oxygen Saturation 95% 10/30/2023 1:30 AM EDT Inhaled Oxygen Concentration - - Weight 95.3 kg (210 lb) 10/29/2023 9:09 PM EDT Height 152.4 cm (5') 10/29/2023 9:09 PM EDT Body Mass Index 41.01 10/29/2023 9:09 PM EDT documented in this encounter Functional [...] this encounter Discharge Instructions * Discharge Instructions* Mary Ann Conti PA-C - 10/30/2023 2:04 AM EDT You were seen and evaluated here in the ED for abdominal pain associated with your suprapubic catheter. Your imaging was overall reassuring. Your blood work was overall reassuring as well. Your vaginosis panel is still pending. I will call you with any positive results. I would like you to continue your previously prescribed pain medications involving Tylenol with codeine and please take these as instructed. At this time, I will not change any other medications. I encouraged you to finish your ciprofloxacin as previously prescribed as well. I would like you to follow up with your PCP for any continual symptoms. I would also like you to follow up with the provider who placed the suprapubic catheter by calling them tomorrow for an appointment. If you begin to notice any worsening abdominal pain, fevers, chills, drainage around the site of the suprapubic catheter, redness surrounding the suprapubic catheter site, decreased urinary output, blood in the urinary bag, or any new or worsening symptoms please report to the ED immediately for further evaluation. documented in this encounter ED Notes * Sang Pryor RN - 10/29/2023 9:09 PM EDT Patient arrives to the ED with complaints of "bladder pain" that has been ongoing since . Relates she had a cystoscopy on in which she has been having pain ever since. Verbalizes contacting the adjudication specialist urologist who referred patient to the ED for evaluation. Reports taking "T3" forpain about two hours prior to arrival. documented in this encounter Miscellaneous Notes * ED Crane Mechanic Note - Elly Vanessa RN - 10/30/2023 2:30 AM EDT 0230. Pt verbalized understanding of discharge instructions. Made aware of results. Advised to follow up with PCP and to return for any worsening symptoms. Pt wheeled out of unit by staff with belongings. * Pt Handout (on AVS) - Mary Ann Conti PA-C - 10/30/2023 2:03 AM EDT [id number] Unknown Causes of Abdominal Pain(Adult) The exact cause of your belly (abdominal) pain is not clear. Your exam and tests don't suggest a dangerous cause at this time. This does not mean that this is something to worry about. Everyone likesto know the exact cause of the problem. But sometimes with belly pain, there is no clear-cut cause,and this could be a good thing. Your symptoms can be treated, and you should feel better. Your condition does not seem serious now. But sometimes the signs of a serious problem may take more time to appear. For this reason, it's important for you to watch for any new symptoms, problems, or worsening of your condition. Over the next few days, the abdominal pain may come and go. Or it may be constant. Other common symptoms can include nausea and vomiting. Sometimes it can be difficult to tell if you feel nauseous. You may just feel bad and not connect that feeling to nausea. Constipation, diarrhea, and a fever maygo along with the pain. The pain may continue even if treated correctly over the following days. Depending on how things go, sometimes the cause can become clear and you may need more or different treatment. You may also need other evaluations, medicines, or tests. Home care Your healthcare provider may prescribe medicine for pain, symptoms, or an infection. Follow the healthcare provider's instructions for taking these medicines. General care Rest as much as you can until your next exam. No strenuous activities. Try to not do anything that may have caused your symptoms. This might be not taking any medicines unless otherwise directed by your healthcare provider. It might be not eating certain foods or doing certain activities. Find positions that ease discomfort. A small pillow placed on your belly may help relieve pain. Something warm on your belly such as a heating pad may help, but be careful not to burn yourself. Diet Don?t force yourself to eat, especially if having cramps, vomiting, or diarrhea. Water is important so you don't get dehydrated. Soup may also be good. Sports drinks may also help, especially if they are not too acidic. Don't drink sugary drinks as this can make things worse. Take liquids in small amounts. Don?t guzzle them. Caffeine sometimes makes the pain and cramping worse. Don?t take dairy products if you have vomiting or diarrhea. Don't eat large amounts at a time. Eat several small meals during the day instead of 2 or 3 larger meals. Wait a few minutes between bites. Eat a diet low in fiber (called a low-residue diet). Foods allowed include refined breads, whiterice, fruit and vegetable juices without pulp, tender meats. These foods will pass more easily through the intestine. Don?t have whole-grain foods, whole fruits and vegetables, meats, seeds and nuts, fried or fattyfoods, dairy, alcohol and spicy foods until your symptoms go away. Follow-up care Follow up with your healthcare provider, or as advised, if your pain does not begin to improve in the next 24 hours. Call 911 Call 911 if any of these occur: Trouble breathing Confusion Fainting or loss of consciousness Rapid heart rate Seizure When to seek medical advice Call your healthcare provider right away if any of these occur: Pain gets worse or moves to the right lower abdomen New or worsening vomiting or diarrhea Swelling of the abdomen Unable to pass stool for more than 3 days Fever of 100.4F (38C) or higher, or as directed by your healthcare provider Blood in vomit or bowel movements (dark red or black color) Yellow color of eyes and skin (jaundice) Weakness, dizziness Chest, arm, back, neck, or jaw pain Can't keep down medicines, liquids, or water because of too much vomiting If you have a vagina: unexpected vaginal bleeding or missed period Last Reviewed Date: 04/13/202119997825-0332 The [employer]. All rights reserved. This information is not intended as a substitute for professional medical care. Always follow your healthcare professional's instructions. * ED Crane Mechanic Note - Joselyn Solano RN - 10/29/2023 10:42 PM EDT Patient comes itno the ED for c/o lower abdominal pain. Patient explains that she had a cytoscopy with Botox on . Patient reports thaty she had initally a catheter bag full of blood and then it has cleared up since. Patient reports the pain in her bilateral lower abdomen comes up midline into the upper abdomen and then pain in her right flank. Patient reports brown smelly drainage from her cath site. Patient believes she may have a yeast infection. Patient reports nausea without vomiting. Patient was prescribed Cipro post-procedure and has been taking it. Patients abdomens is soft, non-distended, tender. Bowel sounds present in all quadrants. Patients lungs are clear in all kowalski. B reathing is equal and unlabored. Patient denies V/D, CP, SOB, fever or chills. documented in this encounter Plan of Treatment Upcoming Encounters Date Type Department Care Team (Late st Contact Info) Description 10/31/2023 9:00 AM EDT Therapy Emma Nick [address] [facility] [phone] Ghazal Best LCSW [address] [place] [place] [id number] 10/31/2023 10:20 AM EDT Office Visit Family [facility] [place] [address] [place] [phone] Cydney Moe MD [address] [place] [address] 12/01/2023 9:00 AM EDT Nurse Only Ancillary 1st Floor, [place] [address] [place] [address] Emma, Nurse Fp [facility] [place] [phone] 12/13/2023 9:20 AM EDT Office Visit Nutrition & Weight Management, [facility] [address] [facility] [place] [address] Martine Mcerloy PA-C 132 [facility] [place] [address] 12/13/2023 10:00 AM EDT Nutrition Services Nutrition & Weight Management, [facility] [address] [facility] [place] [address] Perla Torres RDN [address] [place] [address] 12/27/2023 9:00 AM EDT Office Visit Psychiatry, [place] [address] [place] [address] Cole, BILLY Lazcano 200 [facility] [place] [address] 12/29/2023 10:13 AM EDT Hospital Encounter OR [facility], Operating Room, Main Hospital - 4th Floor 400 [facility] [place] [address] Cristiano Alaniz DO [address] [place] [address] 12/29/2023 10:13 AM EDT - 12/29/2023 10:56 AM EDT Surgery OR [facility], Operating Room, [facility] - 4th Floor [address] [place] [address] Cristiano Alaniz, DO [address] [place] [address] COLONOSCOPY FLEXIBLE PROXIMAL DIAGNOSTIC 01/16/2024 12:00 PM EDT Office Visit [facility] [address] [facility] [place] [phone] Sarah Saavedra PA-C 21 [facility] [place] [address] 02/02/2024 10:40 AM EDT Office Visit [facility] [place] [address] [place] [address] Traci Ricardo MD 400 [facility] [place] [address] 03/01/2024 11:20 AM EDT Office Visit Neurology [facility] [address] [facility] [place] [address] Maureen Bowie MD [address] [facility] [place] [address] 03/05/2024 9:30 AM EDT Office Visit [facility] [place] [address] [place] [address] Devon Damon PA-C 16 [facility] [place] [address] Pending Results Name Type Priority Associated Diagnoses Date /Time VAGINOSIS PANEL, PCR Lab STAT 10/11 10:54 PM EDT CULTURE, URINE, QUANTITATIVE Lab STAT 10/30/2023 1:16 AM EDT Scheduled Orders Name Type Priority Associated Diagnoses Orde r Schedule VAGINOSIS PANEL, PCR Lab STAT Perf orm Now for 1 Occurrences starting 10/29/2023 until 10/29/2023 CULTURE, URINE, QUANTITATIVE Lab STAT One Time for 1 Occurrences starting 10/30/2023 until 10/30/2023 Scheduled Procedures Name Priority Associated Diagnoses Date/Ti [...] Devices Implanted Type Area Hat And Cap Drying Room Attendant Device Identifier Shelf Expiration Date Model / Serial / Lot Plate Small Mtpj - [id number] Implanted:Qty: 1 on 11/15/2017 by Cristobal Calvillo MD at [place] [facility] Left: Foot [id number] / / Screw Locking 2.7x14mm - [id number] Implanted:Qty: 1 on 11/15/2017 by Cristobal Calvillo MD at [facility] Left: Foot / / 2.7 X 16mm Locking Screw Implanted:Qty: 2 on 11/15/2017 by Cristobal Calvillo MD at OR [facility] Left: Foot [employer] / / 2.7 X 20 Locking Screw Implanted:Qty: 1 on 11/15/2017 by Cristobal Calvillo MD at OR [facility] Left: Foot [employer] / / 2.7 X 18mm Locking Screw Implanted:Qty: 1 on 11/15/2017 by Cristobal Calvillo MD at OR [facility] Left: Foot [employer] / / Screw Locking 2.7x10mm - [id number] Implanted:Qty: 1 on 11/15/2017 by Cristobal Calvillo MD at OR [facility] Left: Foot [employer] / / 4.0mm X 44 Mm Compression Screw Implanted:Qty: 1 on 10/09/2018 by Bao Hernández MD at OR [facility] Left: Foot AR-8740-44 H / / Description:Implant from set 2.5x30 Compression Screw Implanted:Qty: 1 on 10/09/2018 by Bao Hernández MD at OR [facility] Left: Foot [employer] AR-8725-30 H / / Screw [employer] 2.3chj81gu - [id number] Implanted:Qty: 2 on 02/01/2022 by Bao Hernández MD at OR [facility] Right: Toe EXACTECH 9840-2437 / / Plate Mtpj - [id number] Implanted:Qty: 1 on 02/01/2022 by Bao Hernández MD at OR [facility] Right: Foot [employer] [id number] / / Screw Locking 2.7x10mm - [id number] Implanted:Qty: 2 on 02/01/2022 by Bao Hernández MD at OR [facility] Right: Foot [employer] [id number] / / Screw Locking 2.7x12mm - [id number] Implanted:Qty: 3 on 02/01/2022 by Bao Hernández MD at OR [facility] Right: Foot [employer] / / Screw Locking 2.7x14mm - [id number] Implanted:Qty: 1 on 02/01/2022 by Bao Hernández MD at OR [facility] Right: Foot [employer] / / Screw [employer] 2.4fuc87hm - [id number] Implanted:Qty: 1 on 02/01/2022 by Bao Hernández MD at OR [facility] Right: Toe [employer] [id number] / / Port Implant W/8f Poly Cath - [id number] Implanted:Qty: 1 on 06/02/2022 by Lawrence Cat DO at OR [facility] Right: Chest CR BARD : PERIPHERAL VASCULAR [id number] 05/12/2023 [id number] / / [id number] documented as of this encounter Procedures Procedure Name Priority Date/Time Associated Diagnosis Comments URINALYSIS, REFLEX TO CULTURE STAT 10/30/2023 1:16 AM EDT URINALYSIS, REFLEX TO CULTURE (CUP ONLY) STAT 10/30/2023 1:16 AM EDT URINALYSIS, REFLEX TO CULTURE (NOT FOR NEUTROPENIC PATIENTS) STAT 10/30/2023 1:16 AM EDT DIFFERENTIAL, AUTOMATED STAT 10/29/2023 11:57 PM EDT PROCALCITONIN STAT 10/29/2023 11:57 PM EDT BETA-HCG, QUANTITATIVE STAT 11:57 PM EDT COMPREHENSIVE METABOLIC PANEL STAT 10/29/2023 11:57 PM EDT CBC STAT 10/29/2023 11:57 PM EDT LIPASE STAT 10/29/2023 11:57 PM EDT CBC STAT 10/29/2023 11:[address] ABD/PELVIS WO IV/ORAL CONTRAST STAT 10/29/2023 11:21 PM EDT documented in this encounter Results * (ABNORMAL) URINALYSIS, REFLEX TO CULTURE (10/30/2023 1:16 AM EDT) Color, Urine Yellow Light Yellow, Yellow, Dark Yellow 10/30/2023 1:38 AM EDT LABORATORY [facility] Clarity, Urine Clear Clear 10/30/2023 1:38 AM EDT LABORATORY [facility] Glucose, Urine Negative Negative mg/dL 10/30/2023 1:38 AM EDT LABORATORY [facility] Bilirubin, Urine Negative Negative 10/30/2023 1:38 AM EDT LABORATORY [facility] Ketone, Urine Negative Negative mg/dL 10/30/2023 1:38 AM EDT LABORATORY [facility] Specific [place], Urine 1.021 1.003 - 1.030 10/30/2023 1:38 AM EDT LABORATORY [facility] Blood, Urine Moderate(A) Negative 10/30/2023 1:38 AM EDT LABORATORY [facility] pH, Urine 5.5 5.0 - 7.5 Units 10/30/2023 1:38 AM EDT LABORATORY GL Protein, Urine Trace(A) Negative mg/dL 10/30/2023 1:38 AM EDT LABORATORY GL Urobilinogen, Urine 0.2 0.2, 1.0 mg/dL 10/30/2023 1:38 AM EDT LABORATORY [facility] Nitrite, Urine Negative Negative 10/30/2023 1:38 AM EDT LABORATORY [facility] Esterase, Urine Negative Negative 10/30/2023 1:38 AM EDT LABORATORY GL RBC, Urine 3-5(A) 0 - 2 /HPF 10/30/2023 1:38 AM EDT LABORATORY GL WBC, Urine 6-9(A) 0 - 2 /HPF 10/30/2023 1:38 AM EDT LABORATORY GL Bacteria, Urine 51-100(A) 0 - 25 /HPF 10/30/2023 1:38 AM EDT LABORATORY [facility] Culture, Urine 10/30/2023 1:38 AM EDT LABORATORY GL Comment:Quantitative urine c ulture to be performed Urine Urine specimen obtained by clean catch procedure / Unknown Non-blood Collection / Unknown 10/30/2023 1:16 AM EDT 10/30/2023 1:20 AM EDT Mary Ann Conti PA-C LAB URINE O RDERABLES LABORATORY [address] [id number] * URINALYSIS, REFLEX TO CULTURE (CUP ONLY) (10/30/2023 1:16 AM EDT) Urinalysis, Reflex to Culture Specimen Specimen collected and received 10/30/2023 3:51 AM EDT LABORATORY [facility] Urine Urine specimen obtained by clean catch procedure / Unknown Non-blood Collection / Unknown 10/30/2023 1:16 AM EDT 10/30/2023 1:20 AM EDT Mary Ann Conti PA-C LAB URINE O RDERABLES Performing Organization Address [facility] Co de Phone Number LABORATORY [address] [phone] * DIFFERENTIAL, AUTOMATED (10/29/2023 11:57 PM EDT) WBC 8.92 4.00 - 10.80 K/uL 10/30/2023 12:04 AM EDT LABORATORY [facility] Neutrophils % 53.4 40.0 - 75.0 % 10/30/2023 12:04 AM EDT LABORATORY [facility] Lymphocytes % 38.3 18.0 - 42.0 % 10/30/2023 12:04 AM EDT LABORATORY [facility] Monocytes % 5.5 1.0 - 11.0 % 10/30/2023 12:04 AM EDT LABORATORY [facility] Eosinophils % 1.3 0.0 - 6.0 % 10/30/2023 12:04 AM EDT LABORATORY [facility] Basophils % 0.9 0.0 - 2.0 % 10/30/2023 12:04 AM EDT LABORATORY [facility] Immature Granulocytes % 0.6 0.0 - 2.0 % 10/30/2023 12:04 AM EDT LABORATORY [facility] Absolute Neutrophils 4.76 1.80 - 7.70 K/uL 10/30/2023 12:04 AM EDT LABORATORY [facility] Absolute Lymphocytes 3.42 1.00 - 4.80 K/ul 10/30/2023 12:04 AM EDT LABORATORY [facility] Absolute Monocytes 0.49 0.00 - 1.10 K/uL 10/30/2023 12:04 AM EDT LABORATORY [facility] Absolute Eosinophils 0.12 0.00 - 0.70 K/uL 10/30/2023 12:04 AM EDT LABORATORY GL Absolute Basophils 0.08 0.00 - 0.20 K/uL 10/30/2023 12:04 AM EDT LABORATORY GL Absolute Immature Granulocytes 0.05 0.00 - 0.20 K/uL 10/30/2023 12:04 AM EDT LABORATORY GL Blood Venous blood specimen / Unknown Venipuncture / Unknown 10/29/2023 11:57 PM EDT 10/30/2023 12:01 AM EDT Mary Ann Conti PA-C LAB BLOOD O RDERABLES LABORATORY [facility] [address] [place] [address] * CBC (10/29/2023 11:57 PM EDT) WBC 8.92 4.00 - 10.80 K/uL 10/30/2023 12:04 AM EDT LABORATORY [facility] RBC 4.12 3.85 - 5.15 M/uL 10/30/2023 12:04 AM EDT LABORATORY [facility] HGB 12.6 12.0 - 15.3 g/dL 10/30/2023 12:04 AM EDT LABORATORY [facility] HCT 37.5 36.0 - 45.2 % 10/30/2023 12:04 AM EDT LABORATORY [facility] MCV 91.0 81.5 - 97.5 fL 10/30/2023 12:04 AM EDT LABORATORY GL MCH 30.6 27.0 - 34.0 pg 10/30/2023 12:04 AM EDT LABORATORY [facility] MCHC 33.6 32.0 - 36.0 g/dL 10/30/2023 12:04 AM EDT LABORATORY [facility] RDW 14.3 11.5 - 15.5 % 10/30/2023 12:04 AM EDT LABORATORY [facility] PLT 295 140 - 400 K/uL 10/30/2023 12:04 AM EDT LABORATORY [facility] MPV 9.1 6.6 - 11.1 fL 10/30/2023 12:04 AM EDT LABORATORY [facility] nRBCs 0 <=0 /100 WBCs 10/30/2023 12:04 AM EDT LABORATORY [facility] Blood Venous blood specimen / Unknown Venipuncture / Unknown 10/29/2023 11:57 PM EDT 10/30/2023 12:01 AM EDT Mary Ann Conti PA-C LAB BLOOD O RDERABLES Performing Organization Address [facility] Co de Phone Number LABORATORY [address] [address] * PROCALCITONIN (10/29/2023 11:57 PM EDT) Procalcitonin 0.06 <0.10 ng/mL 10/30/2023 12:32 AM EDT LABORATORY [facility] Blood Venous blood specimen / Unknown Venipuncture / Unknown 10/29/2023 11:57 PM EDT 10/30/2023 12:01 AM EDT Narrative LABORATORY [facility] - 10/30/2023 12:32 AM EDT Less than 0.5 ng/mL: Low risk for progression to sepsis. Review patients condition for localized infections. 0.5 to 2.0 ng/mL: Intermediate risk for progresion to sepsis. Review underlying conditions. Recommend repeat PCT after 6 hours has elapsed. Greater than 2.0 ng/mL: high risk for progression to sepsis unless other causes are known. Mary Ann Conti PA-C LAB BLOOD O RDERABLES Performing Organization Address [facility] de Phone Number LABORATORY [address] [address] * LIPASE (10/29/2023 11:57 PM EDT) Lipase 26 13 - 60 U/L 10/30/2023 12:47 AM EDT LABORATORY [facility] Blood Venous blood specimen / Unknown Venipuncture / Unknown 10/29/2023 11:57 PM EDT 10/30/2023 12:01 AM EDT Mary Ann Conti PA-C LAB BLOOD O RDERABLES [facility] [address] [place] [address] * (ABNORMAL) COMPREHENSIVE METABOLIC PANEL (10/29/2023 11:57 PM EDT) BUN 13 6 - 20 mg/dL 10/30/2023 12:47 AM EDT [facility] Creatinine 0.6 0.5 - 1.0 mg/dL 10/30/2023 12:47 AM EDT [facility] Estimated Glomerular Filtration Rate >90 >=60 mL/min 10/30/2023 12:47 AM EDT [facility] Comment:eGFR is calculated b ased on the CKD-EPI 2020 equation Sodium 140 135 - 146 mmol/L 10/30/2023 12:47 AM EDT [facility] Potassium 3.8 3.5 - 5.1 mmol/L 10/30/2023 12:47 AM EDT [facility] Chloride 108(H) 98 - 107 mmol/L 10/30/2023 12:47 AM EDT [facility] CO2 20(L) 22 - 32 mmol/L 10/30/2023 12:47 AM EDT [facility] Anion Gap 12 7 - 15 mmol/L 10/30/2023 12:47 AM EDT [facility] Glucose 88 70 - 120 mg/dL 10/30/2023 12:47 AM EDT [facility] Albumin 3.5(L) 3.8 - 5.0 g/dL 10/30/2023 12:47 AM EDT [facility] AST 14 10 - 35 U/L 10/30/2023 12:47 AM EDT [facility] Alkaline Phosphatase 65 35 - 130 U/L 10/30/2023 12:47 AM EDT [facility] Bilirubin, Total 0.2 <=1.2 mg/dL 10/30/2023 12:47 AM EDT [facility] Calcium 9.0 8.4 - 10.2 mg/dL 10/30/2023 12:47 AM EDT [facility] Protein 6.2 6.0 - 8.3 g/dL 10/30/2023 12:47 AM EDT [facility] ALT 18 10 - 35 U/L 10/30/2023 12:47 AM EDT [facility] Blood Venous blood specimen / Unknown Venipuncture / Unknown 10/29/2023 11:57 PM EDT 10/30/2023 12:01 AM EDT Mary Ann Conti PA-C LAB BLOOD O RDERABLES Performing Organization Address [facility] de Phone Number LABORATORY [address] [address] * BETA-HCG, QUANTITATIVE (10/29/2023 11:57 PM EDT) [facility] Beta-HCG, Quantitative 0.7 <=1.0 mIU/mL 10/30/2023 12:29 AM EDT [facility] Blood Venous blood specimen / Unknown Venipuncture / Unknown 10/29/2023 11:57 PM EDT 10/30/2023 12:01 AM EDT Narrative LAB[facility]AT[facility] - 10/30/2023 12:29 AM EDT hCG can serve as a screening assay for . However, early may not give a positive hCG test result. In addition, some non- women may have a hCG result slightly higher than the reference limit. Careful interpretation of the hCG with clinical history is required to determine whether the patient may be . Mary Ann Conti PA-C LAB BLOOD O MILLICENT Performing Organization Address [facility] de Phone Number LABORATORY [address] [address] * CT ABD/PELVIS WO IV/ORAL CONTRAST (10/29/2023 11:21 PM EDT) Anatomical Region Laterality Modality Body, Abdomen, Pelvis Computed T omography 10/29/2023 11:0 7 PM EDT Impressions 10/30/2023 12:07 AM EDT IMPRESSION: Mild inflammatory change associated with the skin entrance of the suprapubic catheter without fluid collection. THIS DOCUMENT HAS BEEN ELECTRONICALLY SIGNED BY JESIKA REYNOLDS MD Narrative 10/30/2023 12:07 AM EDT PROCEDURE INFORMATION: Exam: CT Abdomen And Pelvis Without Contrast Exam date and time: 10/29/2023 11:07 PM Age: 38 years old Clinical indication: Abdominal pain; Additional info: Had suprapubic catheter placed on , pain and redness around site, mild drainage TECHNIQUE: Imaging protocol: Computed tomography of the abdomen and pelvis without contrast. Radiation optimization: All CT scans at this facility use at least one of these dose optimization techniques: automated exposure control; mA and/or kV adjustment per patient size (includes targeted exams where dose is matched to clinical indication); or iterative reconstruction. COMPARISON: 1. CT ABD/PELVIS W IV CONTRAST - WO ORAL CONTRAST 07/08/2023 12:[address] ABD/PELVIS W IV CONTRAST - WO ORAL CONTRAST 04/25/2023 12:[address] ABD/PELVIS WO IV/ORAL CONTRAST 03/05/2023 4:38 PM FINDINGS: Tubes, catheters and devices: There is a suprapubic catheter in place. Small amount of inflammatory change noted associated with the skin entrance of the suprapubic catheter. Lungs: Scattered areas of bronchial wall thickening which are likely chronic inflammatory. A few areas of subpleural reticulation are noted, nonspecific. Scattered areas of bronchial wall thickening which are likely chronic inflammatory. A few areas of subpleural reticulation are noted, nonspecific. Liver: Normal. Gallbladder and bile ducts: The patient is status post cholecystectomy. Pancreas: Normal. Spleen: Normal. Adrenal glands: The adrenal glands appear normal. Kidneys and ureters: There are no soft tissue renal masses or hydronephrosis. Stomach and bowel: Prior Mark-en-Y gastric bypass. There is large volume stool throughout the colon. Appendix: No evidence of appendicitis. Intraperitoneal space: Unremarkable. Vasculature: There is atherosclerotic disease of the visualized aorta and its major branch vessels. There is atherosclerotic disease of the visualized aorta and its major branch vessels. Lymph nodes: No lymphadenopathy. Urinary bladder: Unremarkable as visualized. Reproductive: No acute process. Bones/joints: There is diffuse degenerative disease of the visualized osseous structures. There is diffuse degenerative disease of the visualized osseous structures. There is exaggeration of the spinal curvature. Soft tissues: Status post multilevel laminectomy with subcutaneous postsurgical changes of the back. There are calcifications within the buttocks which most likely reflect injection granulomas. Procedure Note Jesika Reynolds MD - 10/30/2023 PROCEDURE INFORMATION: Exam: CT Abdomen And Pelvis Without Contrast Exam date and time: 10/29/2023 11:07 PM Age: 38 years old Clinical indication: Abdominal pain; Additional info: Had suprapubiccatheter placed on , pain and redness around site, mild drainage TECHNIQUE: Imaging protocol: Computed tomography of the abdomen and pelvis without contrast. Radiation optimization: All CT scans at this facility use at least one ofthese dose optimization techniques: automated exposure control; mA and/or kV adjustment per patient size (includes targeted exams where dose is matchedto clinical indication); or iterative reconstruction. COMPARISON: 1. CT ABD/PELVIS W IV CONTRAST - WO ORAL CONTRAST 07/08/2023 12:[address] ABD/PELVIS W IV CONTRAST - WO ORAL CONTRAST 04/25/2023 12:[address] ABD/PELVIS WO IV/ORAL CONTRAST 03/05/2023 4:38 PM FINDINGS: Tubes, catheters and devices: There is a suprapubic catheter in place.Small amount of inflammatory change noted associated with the skin entrance ofthe suprapubic catheter. Lungs: Scattered areas of bronchial wall thickening which are likelychronic inflammatory. A few areas of subpleural reticulation are noted,nonspecific. Scattered areas of bronchial wall thickening which are likely chronic inflammatory. A few areas of subpleural reticulation are noted,nonspecific. Liver: Normal. Gallbladder and bile ducts: The patient is status post cholecystectomy. Pancreas: Normal. Spleen: Normal. Adrenal glands: The adrenal glands appear normal. Kidneys and ureters: There are no soft tissue renal masses orhydronephrosis. Stomach and bowel: Prior Mark-en-Y gastric bypass. There is large volumestool throughout the colon. Appendix: No evidence of appendicitis. Intraperitoneal space: Unremarkable. Vasculature: There is atherosclerotic disease of the visualized aorta andits major branch vessels. There is atherosclerotic disease of the visualizedaorta and its major branch vessels. Lymph nodes: No lymphadenopathy. Urinary bladder: Unremarkable as visualized. Reproductive: No acute process. Bones/joints: There is diffuse degenerative disease of the visualizedosseous structures. There is diffuse degenerative disease of the visualizedosseous structures. There is exaggeration of the spinal curvature. Soft tissues: Status post multilevel laminectomy with subcutaneouspostsurgical changes of the back. There are calcifications within the buttocks whichmost likely reflect injection granulomas. IMPRESSION IMPRESSION: Mild inflammatory change associated with the skin entrance of thesuprapubic catheter without fluid collection. THIS DOCUMENT HAS BEEN ELECTRONICALLY SIGNED BY JESIKA REYNOLDS MD Mary Ann Beltranjd Conti PA-Tressa RAD CT documented in this encounter Visit Diagnoses Diagnosis Lower abdominal pain- Primary Abdominal pain, other specified site RLQ abdominal pain Abdominal pain, right lower quadrant Constipation, unspecified constipation type Abnormal CT of the abdomen Nonspecific (abnormal) findings on radiological and other examination of abdominal area, including retroperitoneum documented in this encounter Administered Medications Inactive Administered Medications - up to 3 most recent administrations Medication Order MAR Action Action Date Dose Rate Site Morphine Sulfate (PF) inj 4 mg 4 mg, IV Push, ONCE, On 10/29/23 at 2330, For 1 dose Given 10/30/2023 12:30 AM EDT 4 mg NSS 0.9% 500 mL bolus infusion IV Piggyback, at 500 mL/hr Administer over 60 Minutes, Administer entire volume within 60 minutes or less., CONTINUOUS, Starting on 10/29/23 at 2330, Until 10/30/23 at 0747 New Bag 10/30/2023 12:29 AM EDT 500 mL 500 mL/hr ondansetron (Zofran) inj 4 mg 4 mg, Intravenous, ONCE, On 10/29/23 at 2330, For 1 dose Given 10/30/2023 12:30 AM EDT 4 mg oxyCODONE-acetaminophen 5-325 mg per tab (Percocet) 1 Tablet 1 Tablet, Oral, ONCE, On 10/30/23 at 0145, For 1 dose, Maximum of 4 grams (4000 mg) of acetaminophen per day Given 10/30/2023 1:11 AM EDT 1 Tablet documented in this encounter Active and Recently Administered Medications Times are shown in EDT. Scheduled Medication Order 10/28/2023 10/29/2023 10/30/2023 Morphine Sulfate (PF) inj 4 mg (COMPLETED) 4 mg, IV Push, ONCE, On 10/29/23 at 2330, For 1 dose 0030 (Given - Provid er: Sang Pryor RN) ondansetron (Zofran) inj 4 mg (COMPLETED) 4 mg, Intravenous, ONCE, On 10/29/23 at 2330, For 1 dose 0030 (Given - Provid er: Sang Pryor RN) oxyCODONE-acetaminophen 5-325 mg per tab (Percocet) 1 Tablet (COMPLETED) 1 Tablet, Oral, ONCE, On 10/30/23 at 0145, For 1 dose, Maximum of 4 grams (4000 mg) of acetaminophen per day 0111 (Given - Provid er: Sang Pryor RN) Continuous Medication Order 10/28/2023 10/29/2023 10/30/2023 NSS 0.9% 500 mL bolus infusion IV Piggyback, at 500 mL/hr Administer over 60 Minutes, Administer entire volume within 60 minutes or less., CONTINUOUS, Starting on 10/29/23 at 2330, Until 10/30/23 at 0747 0029 (New Bag - Prov ider: Sang Pryor RN)[id number] (Stopped - Provider: Elly Vanessa RN) documented in this encounter Advance Directives Documents on File Type Date Recorded 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
--- OUTSIDE RECORDS SUMMARY | 2023-11-11 06:58 | External Medical Summary ---
Author Name Unknown Address Unknown Organization K1F[facility] [address] [facility] [place] [address] Laboratory Report Ordering Provider Test Date Status FRANSISCA JEROME 10/29/2023 23:57:45 Final Observation Date Value Abnormality Reference (Units ) Status SYNC LEUKOCYTES IN BLOOD BY AUTOMATED COUNT 10/29/2023 23:57:45 8.92 4.00-10.80 (K/uL) Final Segs 10/29/2023 23:57:45 53.4 40.0-75.0 (%) Final Lymphs % 10/29/2023 23:57:45 38.3 18.0-42.0 (%) Final Monos 10/29/2023 23:57:45 5.5 1.0-11.0 (%) Final Eosinophils 10/29/2023 23:57:45 1.3 0.0-6.0 (%) Final Basos 10/29/2023 23:57:45 0.9 0.0-2.0 (%) Final Immature Granulocyte, Percent 10/29/2023 23:57:45 0.6 0.0-2.0 (%) Final Absolute Segs 10/29/2023 23:57:45 4.76 1.80-7.70 (K/uL) Final Lymphs, absolute 10/29/2023 23:57:45 3.42 1.00-4.80 (K/ul) Final Monos, Abs 10/29/2023 23:57:45 0.49 0.00-1.10 (K/uL) Final Eos, Abs 10/29/2023 23:57:45 0.12 0.00-0.70 (K/uL) Final Basos, Abs 10/29/2023 23:57:45 0.08 0.00-0.20 (K/uL) Final Immature Granulocytes, Number 10/29/2023 23:57:45 0.05 0.00-0.20 (K/uL) Final Performing Location [facility] [address] [facility] [address] [place] [address]
--- OUTSIDE RECORDS SUMMARY | 2023-11-11 06:58 | External Medical Summary ---
Author Name Unknown Address Unknown Organization K1F[facility] [address] [facility] [place] [address] Laboratory Report Ordering Provider Test Date Status FRANSISCA JEROME 10/29/2023 23:57:45 Final Observation Date Value Abnormality Reference (Units ) Status BUN 10/29/2023 23:57:45 13 6-20 (mg/dL) Final Creatinine 10/29/2023 23:57:45 0.6 0.5-1.0 (mg/dL) Final Glomerular filtration rate/1.73 sq M.predicted [Volume Rate/Area] in Serum, Plasma or Blood by Creatinine-based formula (CKD-EPI) 10/29/2023 23:57:45 >90 >=60 (mL/min) Final eGFR is calculated based on the CKD-EPI 2020 equation Sodium 10/29/2023 23:57:45 140 135-146 (m mol/L) Final Potassium 10/29/2023 23:57:45 3.8 3.5-5.1 (m mol/L) Final Cl 10/29/2023 23:57:45 108 Above high normal 98 -107 (mmol/L) Final CO2 10/29/2023 23:57:45 20 Below low normal 22- 32 (mmol/L) Final Anion gap 10/29/2023 23:57:45 12 7-15 (mmol /L) Final Glucose 10/29/2023 23:57:45 88 70-120 (mg /dL) Final Albumin 10/29/2023 23:57:45 3.5 Below low normal 3.8 -5.0 (g/dL) Final AST (Aspartate aminotransferase) 10/29/2023 23:57:45 14 10-35 (U/L) Fin al Alk Phos 10/29/2023 23:57:45 65 35-130 (U/ L) Final Bilirubin, Total 10/29/2023 23:57:45 0.2 <=1 .2 (mg/dL) Final Calcium 10/29/2023 23:57:45 9.0 8.4-10.2 ( mg/dL) Final Protein 10/29/2023 23:57:45 6.2 6.0-8.3 (g /dL) Final ALT (Alanine aminotransferase) 10/29/2023 23:57:45 18 10-35 (U/L) Karthik garcia Performing Location LABORATORY [facility] - [facility] [address]. [place] [address]
--- OUTSIDE RECORDS SUMMARY | 2023-11-11 06:58 | External Medical Summary ---
Author Name Unknown Address Unknown Organization K1F:LABORATORY [facility] - [address] [place] [address] Laboratory Report Ordering Provider Test Date Status FRANSISCA JEROME 10/29/2023 23:57:45 Final Observation Date Value Abnormality Reference (Units ) Status WBC, Total 10/29/2023 23:57:45 8.92 4.00-10.80 (K/uL) Final RBC 10/29/2023 23:57:45 4.12 3.85-5.15 (M/uL) Final Hemoglobin 10/29/2023 23:57:45 12.6 12.0-15.3 (g/dL) Final HCT 10/29/2023 23:57:45 37.5 36.0-45.2 (%) Final MCV 10/29/2023 23:57:45 91.0 81.5-97.5 (fL) Final MCH 10/29/2023 23:57:45 30.6 27.0-34.0 (pg) Final MCHC 10/29/2023 23:57:45 33.6 32.0-36.0 (g/dL) Final RDW 10/29/2023 23:57:45 14.3 11.5-15.5 (%) Final Platelets 10/29/2023 23:57:45 295 140-400 (K/uL) Final MPV 10/29/2023 23:57:45 9.1 6.6-11.1 (fL) Final Nucleated erythrocytes/100 leukocytes [Ratio] in Blood by Automated count 10/29/2023 23:57:45 0 <=0 (/100 WBCs) Final Performing Location [facility]ATORY [facility] - [address] [place] [address]
--- NOTE | 2023-11-11 08:09 | Urology Consultation ---
Date of Consultation November 11, 2023 Assessment & Plan (1) Complicated UTI (urinary tract infection): (2) Chronic suprapubic catheter: Plan 38-year-old female with a chronic suprapubic catheter admitted with complicated UTI -Afebrile and hemodynamically stable at present -Labs show no leukocytosis and creatinine stable 0.58. -Urine culture pending -She is on daptomycin. -Suprapubic catheter intact and draining appropriately. Continue to monitor. Was last exchanged 10/27/2023. -CT abd pelvis - Suprapubic catheter in place. Bladder wall thickening. No hydronephrosis. No urinary calculi. -No acute urological intervention warranted. -Continue antibiotic therapy and tailor as culture data becomes available. -Continue oxybutynin, Gemtesa, PRN Pyridium for bladder pain/spasms. -Continue bowel regimen. -Maintain suprapubic catheter. -Will arrange outpatient follow-up with our service. -Urology will sign off. Please call with any further questions or concerns. 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 On arrival she was afebrile and hemodynamically stable. Labs showing no leukocytosis and creatinine 0.57. Urinalysis with 2+ blood, 2+ LE, 21-50WBC, >20RBC, neg bacteria, neg nitrite CT abdomen pelvis Suprapubic catheter in place. Bladder wall thickening which could be correlated with urinalysis. No hydronephrosis. No urinary calculi. Urine culture collected. Patient admitted to medicine service. Patient is well-known to the urology service, follows with Dr. Olmos. She recently underwent cystoscopy, Botox injection, and suprapubic catheter exchange on 10/27/[address] Olmos. Patient seen at bedside today. Awake, resting in bed on arrival. No acute distress. Suprapubic catheter intact and draining yellow urine. No hematuria. She reports abdominal pain, flank pain, and bladder spasms. No fevers. Per patient, she was on Augmentin outpatient for treatment of Enterococcus UTI. Allergies Allergy/AdvReac Type Severity Reaction Status Date / Time aripiprazole [From Abilify] Allergy Severe COULDN'T Verified 11/10/23 12:01 BREATHE aztreonam Allergy Severe SHORTNESS Verified 11/10/23 12:01 OF BREATH Beta-Blockers Allergy Severe COULDN'T Verified 11/10/23 12:01 (Beta-Adrenergic Bloc BREATHE Gadolinium-Containing Allergy Severe Swelling Verified 11/10/23 12:01 Contrast Medi of Lip/Tongue/Throat hydrocodone Allergy Severe Hives Verified 11/10/23 12:01 lithium Allergy Severe UNCONSCIOUS, Verified 11/10/23 12:01 UNRESPONSIVE meperidine Allergy Severe RESPIRATORY Verified 11/10/23 12:01 DISTRESS propranolol Allergy Severe Anaphylaxis Verified 11/10/23 12:01 verapamil Allergy Severe "Cant Verified 11/10/23 12:01 breathe" fexofenadine Allergy Intermediate HIVES Verified 11/10/23 12:01 linezolid Allergy Intermediate SHORTNESS Verified 11/10/23 12:01 OF BREATH propoxyphene Allergy Intermediate Hives Verified 11/10/23 12:01 Sulfa (Sulfonamide Allergy Intermediate SHORTNESS Verified 11/10/23 12:01 Antibiotics) OF BREATH ketorolac Allergy Mild ITCHY Verified 11/10/23 12:01 latex Allergy Mild Itching Verified 11/10/23 12:01 neomycin Allergy Mild ITCHY Verified 11/10/23 12:01 tetracycline Allergy Unknown UNKNOWN Verified 11/10/23 12:01 Home Medications Medication Instructions Recorded Confirmed Type albuterol sulfate 90 mcg/actuation 2 puff inhalation QID PRN 04/13/18 11/10/23 History aerosol inhaler (Ventolin HFA) Shortness Of Breath cetirizine 10 mg tablet (Zyrtec) 10 mg PO QAM 04/13/18 11/10/23 History duloxetine 60 mg capsule,delayed 60 mg PO QAM 04/13/18 11/10/23 History release (Cymbalta) hydroxyzine HCl 50 mg tablet 50 mg PO TID PRN Anxiety 04/13/18 11/10/23 History polyethylene glycol 3350 17 17 g PO BID PRN Constipation 04/13/18 11/10/23 History gram/dose oral powder (Miralax) prochlorperazine maleate 10 mg 10 mg PO Q8H PRN Nausea 04/13/18 11/10/23 History tablet (Compazine) baclofen 20 mg tablet 20 mg PO TID 08/09/19 11/10/23 History cyclobenzaprine 10 mg tablet 10 mg PO BID PRN Muscle Spasm 03/29/20 11/10/23 History onabotulinumtoxinA 100 unit 200 unit IM Q90D 03/29/20 11/10/23 History solution for injection (Botox) ondansetron 4 mg disintegrating 4 mg PO Q6H PRN Nausea And Vomiting 03/29/20 11/10/23 History tablet acetaminophen 500 mg tablet 1,000 mg PO Q6H PRN Pain 09/11/20 11/10/23 History (Tylenol Extra Strength) diazepam 2 mg tablet 2 mg PO TID 09/11/20 11/10/23 History trazodone 100 mg tablet 100 mg PO HS PRN Sleep 08/13/21 11/10/23 History fremanezumab-vfrm 225 mg/1.5 mL 225 mg subcut MONTHLY 02/03/23 11/10/23 History subcutaneous auto-injector (Ajovy) pantoprazole 40 mg granules 40 mg PO BID 02/03/23 11/10/23 History delayed-release for susp in packet (Protonix) ramelteon 8 mg tablet 8 mg PO HS PRN Sleep 02/03/23 11/10/23 History apixaban 5 mg tablet (Eliquis) 5 mg PO BID 04/04/23 11/10/23 History lurasidone 40 mg tablet (Latuda) 40 mg PO PM 04/04/23 11/10/23 History acetaminophen 300 mg-codeine 30 mg 1 tab PO TID PRN Pain 04/21/23 11/10/23 History tablet oxybutynin chloride 5 mg tablet 5 mg PO Q8H PRN bladder spasms #90 09/23/23 11/10/23 Rx tabs clotrimazole 1 % topical cream 1 applic topical UD PRN Rash 09/29/23 11/10/23 History famotidine 20 mg tablet 20 mg PO DAILY PRN Acid Reflux 09/29/23 11/10/23 History topiramate 50 mg tablet 50 mg PO BID 09/29/23 11/10/23 History cholecalciferol (vitamin D3) 25 25 mcg PO QAM 10/14/23 11/10/23 History mcg (1,000 unit) tablet (Vitamin D3) cyanocobalamin (vitamin B-12) 1,000 mcg IM UD 10/14/23 11/10/23 History 1,000 mcg/mL injection solution docusate sodium 100 mg capsule 200 mg PO DAILY PRN Constipation 10/14/23 11/10/23 History (Colace) duloxetine 30 mg capsule,delayed 30 mg PO QAM 10/14/23 11/10/23 History release (Cymbalta) mirabegron 50 mg tablet,extended 50 mg PO QAM 10/14/23 11/10/23 History release 24 hr (Myrbetriq) multivitamin 1 tab PO QAM 10/14/23 11/10/23 History tolterodine 2 mg capsule,extended 2 mg PO QAM 10/14/23 11/10/23 History release 24 hr (Detrol LA) phenazopyridine 200 mg tablet 200 mg PO Q8H PRN pain #10 tabs 10/27/23 11/10/23 Rx (Pyridium) amoxicillin 875 mg-potassium 1 tab PO BID 11/10/23 11/10/23 History clavulanate 125 mg tablet Patient History Medical History Allergy to multiple antibiotics Frequent UTI Radicular low back pain Falls Chronic back pain Abdominal pain Suicidal ideations Insulin resistance History of COVID-19 diagnosed 06/2023--mild symptoms, no symptoms now Morbid obesity with BMI of 40.0-44.9, adult Nausea and vomiting after administration of anesthetic agent NAUSEA ONLY. Degenerative disc disease HARD TIME LYING ON STOMACH FOR EXTENDED PERIODS OF TIME. Surgical History History of hysterectomy H/O gastric bypass History of cystoscopy with exchange of suprapubic cath 04/2023 @ [facility] History of esophagogastroduodenoscopy (EGD) History of foot surgery right--hardware in place History of colonoscopy History of hysterectomy History of laminectomy H/O shoulder surgery S/P surgical manipulation of ankle joint H/O dilation and curettage Hx of eye surgery Hx of spinal fusion Hx of cholecystectomy Family History Father Alive and well Hypertension Mother Alive and well Hypertension Other No family history of adverse response to anesthesia Social History Smoking Status: Never smoker Second Hand Exposure: No; Do You Dip or Chew Tobacco: No; Hx Alcohol Use: No Hx Substance Use: No Preferred Language: Spanish Communication Ability: Effective Visual Impairment: No Limitations [employer] Required: No Beliefs That Will Affect Care: None marital status: Single Current Living Situation: Alone Current Living Situation Comment: 12 hour a day caregivers Other Information That Helps Us Care for You: No Feels Safe at Home: Yes Safety Concerns: Feels Safe At This Time Assistive Devices: Bedside Commode, Hospital Bed, Mechanical Lift, Walker, Wheelchair and Other Review of Systems Review of Systems: All systems reviewed & are unremarkable except as noted in HPI & below Physical Exam Constitutional: no acute distress Neck: normal visual inspection Respiratory: no respiratory distress and no labored breathing Musculoskeletal: Head/Neck/Chest: normocephalic Skin: No visible rashes or lesions to exposed skin areas Neurologic: awake Psychiatric: A+Ox3, euthymic affect Genitourinary: Suprapubic catheter intact and draining appropriately Results & Data Vital Signs (Past 12 Hours) Vital Signs Temp Pulse Pulse Resp BP BP Pulse Ox 11/11/23 07:15 36.7 C 110 H 18 137/78 95 11/10/23 20:12 36.7 C 76 18 135/76 95 O2 Del Method 11/11/23 07:15 Room Air 11/10/23 20:12 Room Air PG Care Time/CCT Total # of Minutes Spent Total Time Spent with Patient: Total time spent is greater than 50% in coordination of care (as documented) at patient's floor/unit and/or counseling patient: Coding Level of Care Code 25003 IN/OBS CONSULT LVL 3,45M Diagnoses Complicated UTI (urinary tract infection) N39.0 Chronic suprapubic catheter Z93.59
[2023-11-11] MEDS: DULoxetine HCL 60 MG CAP PO SCH (08:57)
[2023-11-11] MEDS: CETIRIZINE HCL 10 MG TABLET PO SCH (08:57)
[2023-11-11] MEDS: OXYBUTYNIN CHLORIDE XL 5 MG TABCR PO SCH (08:57)
[2023-11-11] MEDS: VIBEGRON 75 MG TAB PO SCH (08:57)
[2023-11-11] MEDS: DOCUSATE SODIUM 100 MG CAP PO SCH (08:57)
[2023-11-11] MEDS: POLYETHYLENE (MIRALAX) 17 GM PACK PO SCH (08:57)
[2023-11-11] MEDS: DULoxetine HCL 30 MG CAP PO SCH (08:57)
[2023-11-11] MEDS: METOCLOPRAMIDE HCL INJ 5 MG/ML 2 ML VIAL IV STA (08:58)
[2023-11-11] MEDS: PROCHLORPERAZINE 5 MG/ML 2 ML VIAL IV STA (08:58)
[2023-11-11] MEDS: diphenhydrAMINE 50 MG/ML VIAL IV STA (08:58)
[2023-11-11] MEDS: KETOROLAC TROMETHAMINE 15 MG/ML VIAL IV STA (08:58)
[2023-11-11] MEDS ORDERED: DAPTOMYCIN IV SCH (09:00)
[2023-11-11] MEDS: LINACLOTIDE 145 MCG CAPSULE PO SCH (14:14)
--- NOTE | 2023-11-11 15:51 | Hospitalist Progress Note ---
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 Admitting labs unremarkable, no leukocytosis, renal function WNL. UA suggestive of UTI. Admitting CTAP: Bladder wall thickening which could be correlated with urine analysis. Suprapubic catheter in place. Moderate amount of stool within the colon. Status post gastric bypass. No bowel thickening. Continue with daptomycin 11/10/2023. Follow admitting urine culture. Baseline CPK 28. Patient not on any statin. PRN IV Zofran and PO Tylenol orders in place. Urology consult placed given patient's hx. Bowel regimen initiated given CT findings above, scheduled daily MiraLAX and Colace. Linzes per pt request as she takes them at home. Can continue SENIOR APPLICATION PROGRAMMER trazodone and ramelteon for sleep. Chronic suprapubic catheter: Neurogenic bladder: Urinary retention: Bladder spasms: She does follow / [facility] Urology given hx of neurogenic bladder, chronic suprapubic catheter [employer]IOR APPLICATION PROGRAMMER. She had a cystoscopy w/ Botox injections on 10/26 w/ Dr. Olmos. Her suprapubic catheter was also changed at that time. Will continue SENIOR APPLICATION PROGRAMMER mirabegron, oxybutynin, phenazopyridine and tolterodine. Continue to monitor suprapubic catheter site, does not currently appear infected on examination. Urology evaled, OP f/u. Cerebral palsy: Paralysis of both lower limbs: Muscle spasm of both lower legs: Ambulatory dysfunction: Patient does have 2 rotating caretakers at home to assist her throughout the day with ambulation/ADLs. OOB w/ assistance activity order in place. Will continue SENIOR APPLICATION PROGRAMMER baclofen, cyclobenzaprine and diazepam. Vaginal yeast infection: Intertriginous candidiasis: Patient is complaining of vaginal yeast infection symptoms x few days. Fl uconazole x 1 dose 11/10/23. Topical clotrim for intertriginous candidiasis. Bipolar depression: Depression: Anxiety disorder: Will continue SENIOR APPLICATION PROGRAMMER psychiatric medications while hospitalized. Hypertension: Appears to have been on anti-hypertensive medications in the past according to [facility] documentation, but is not currently on antihypertensive therapy. BP fairly oK. Will continue to monitor throughout hospitalization. GERD (gastroesophageal reflux disease): Will continue S[employer]IOR APPLICATION PROGRAMMER daily Protonix, PRN Pepcid therapy. Asthma: Stable, not in exacerbation. History of PE/DVT: Continue S[employer]IOR APPLICATION PROGRAMMER Eliquis. Chronic pain: Will continue SENIOR [employer]PLICATION PROGRAMMER chronic opioid therapy, which is managed in the outpatient setting by her PCP. History of migraine headache: Patient does have a history of migraine headaches, takes Ajovy for preventative therapy and Ubrelvy for abortive therapy at home. Also takes topiramate. Follows with [facility]. -received Toradol, Compazine and Benadryl to be given in the ED to prevent any further progression to a migraine. -Could consider having patient bring in her Ubrelvy prescription from home to take while hospitalized, as this is a non-formulary medication. Pt states no help to bring those meds. -Continue to monitor for any progression of headache symptoms. Will continue SENIOR APPLICATION PROGRAMMER topiramate. DVT Prophylaxis: Eliquis Code Status: Full Code PCP: Sarah Saavedra PA-C Admission and Anticipated Discharge Date Admission Date: November 10, 2023 Subjective Patient was seen and examined at bedside. Patient was lying in bed, on room air, NAD. Patient reports improving lower abdominal pain, denies febrile illness. Patient reports eating okay, has usual bowel movement every 2 to 3 days, requesting Linzess which she uses at home, ordered. Physical Exam Physical Exam: General Appearance: Chronically ill-appearing, conversing easily. Appears slightly anxious, but pleasant. No acute distress. Head: Normocephalic, atraumatic. Eyes: Normal inspection, PERRL, conjunctivae normal, anicteric sclerae. ENT: External ear and nose normal, oropharynx normal. Neck: Normal visual inspection, trachea midline, no thyromegaly. Respiratory: Normal respiratory effort, lungs clear to auscultation, no wheeze, rales, rhonchi. No accessory muscle use. Cardiovascular: Regular rate, rhythm, no murmur, normal peripheral pulses, no BLE edema. Vessels: No JVD. Chest: Normal inspection of chest. Abdomen/GI: Normal bowel sounds, tender to palpation in suprapubic region x mild. Extremities/Musculoskeletal: No cyanosis or clubbing, nontender. Neurologic: PERRL, EOMI, accommodation nl, no face palsy, no dysarthria. Psychiatric: A+Ox3, euthymic affect. Skin: No rashes, normal color, warm/dry. Suprapubic catheter site w/out surrounding erythema or discharge, no bleeding present. Results & Data Results & Data Vital Signs (Past 12 Hours) Vital Signs Temp Pulse Resp BP Pulse Ox O2 Del Method 11/11/23 09:06 Room Air 11/11/23 07:15 36.7 C 110 H 18 137/78 95 Room Air
[2023-11-11] MEDS: oxyBUTYnin chloride 5 MG TAB PO PRN (21:54)
[2023-11-12] MEDS: bisacodyL 10 MG SUPP PR STA (03:41)
[2023-11-12] MEDS: DOCUSATE SODIUM/SENNA 50/8.6MG TAB PO SCH (03:45)
[2023-11-12] MEDS: LACTULOSE SYRUP 30 GM/45 ML UDP PO STA (04:01)
[2023-11-12 07:33] LABS: Hematocrit (blood only) 34.9 % (37.0-47.0); Hemoglobin 11.4 g/dl (12.0-16.0); Mean Corpuscular Hemoglobin 29.1 pg (25.0-34.0); Mean Corpuscular Hgb Conc 32.7 g/dL (32.0-36.0); Mean Platelet Volume 9.9 fL (9.4-12.4); Platelet Count 293 K/uL (130-400); RDW Coefficient of Variation 14.2 % (11.5-14.5); RDW Standard Deviation 46.3 fL (36.4-46.3); Red Blood Count 3.92 M/uL (4.20-5.40); White Blood Count 9.15 K/ul (4.8-10.8)
[2023-11-12 08:18] LABS: Calcium 7.9 mg/dl (8.6-10.3); Potassium 3.6 mmol/L (3.5-5.1)
[2023-11-12 08:24] LABS: BUN Creatinine Ratio 24.6 (10-20); Creatinine Clr Calc Pharmacy 117.3 ml/min; Est GFR (African American) 128.9 ml/min; Est GFR (Non-African American) 111.2 ml/min; Phosphorus 3.2 mg/dl (2.5-4.9)
[2023-11-12] MEDS: PHENAZOPYRIDINE HCL 200 MG TAB PO PRN (11:34)
--- NOTE | 2023-11-12 16:50 | Hospitalist Progress Note ---
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 Admitting labs unremarkable, no leukocytosis, renal function WNL. UA suggestive of UTI. Admitting CTAP: Bladder wall thickening which could be correlated with urine analysis. Suprapubic catheter in place. Moderate amount of stool within the colon. Status post gastric bypass. No bowel thickening. Continue with daptomycin 11/10/2023. Admitting urine culture - contaminated. Baseline CPK 28. Patient not on any statin. PRN IV Zofran and PO Tylenol orders in place. Urology evaled. Bowel regimen initiated given CT findings above, scheduled daily MiraLAX and Colace. Linzes per pt request as she takes them at home. Can continue YARD ASSISTANT trazodone and ramelteon for sleep. Chronic suprapubic catheter: Neurogenic bladder: Urinary retention: Bladder spasms: She does follow / [facility] given hx of neurogenic bladder, chronic suprapubic catheter YARD ASSISTANT. She had a cystoscopy w/ Botox injections on 10/26 w/ Dr. Olmos. Her suprapubic catheter was also changed at that time. Will continue YARD ASSISTANT mirabegron, oxybutynin, phenazopyridine and tolterodine. Continue to monitor suprapubic catheter site, does not currently appear infected on examination. Urology evaled, OP f/u. Cerebral palsy: Paralysis of both lower limbs: Muscle spasm of both lower legs: Ambulatory dysfunction: Patient does have 2 rotating caretakers at home to assist her throughout the day with ambulation/ADLs. OOB w/ assistance activity order in place. Will continue YARD ASSISTANT baclofen, cyclobenzaprine and diazepam. Vaginal yeast infection: Intertriginous candidiasis: Patient is complaining of vaginal yeast infection symptoms x few days. Fluconazole x 1 dose 11/10/23. Topical clotrim for intertriginous candidiasis. Repeat fluconazole on 11/11. PV clotrim x 7 days ordered 11/11. Bipolar depression: Depression: Anxiety disorder: Will continue YARD ASSISTANT psychiatric medications while hospitalized. Hypertension: Appears to have been on anti-hypertensive medications in the past according to [facility] documentation, but is not currently on antihypertensive therapy. BP fairly oK. Will continue to monitor throughout hospitalization. GERD (gastroesophageal reflux disease): Will continue YARD ASSISTANT daily Protonix, PRN Pepcid therapy. Asthma: Stable, not in exacerbation. History of PE/DVT: Continue YARD ASSISTANT Eliquis. Chronic pain: Will continue YARD ASSISTANT chronic opioid therapy, which is managed in the outpatient setting by her PCP. History of migraine headache: Patient does have a history of migraine headaches, takes Ajovy for preventative therapy and Ubrelvy for abortive therapy at home. Also takes topiramate. Follows with [facility]rology. -received Toradol, Compazine and Benadryl to be given in the ED to prevent any further progression to a migraine. -Could consider having patient bring in her Ubrelvy prescription from home to take while hospitalized, as this is a non-formulary medication. Pt states no help to bring those meds. -Continue to monitor for any progression of headache symptoms. Will continue YARD ASSISTANT topiramate. DVT Prophylaxis: Eliquis Code Status: Full Code PCP: Sarah Saavedra PA-C Admission and Anticipated Discharge Date Admission Date: November 10, 2023 Subjective Patient was seen and examined at bedside. Patient was lying in bed, on room air, NAD. Patient reports improving lower abdominal pain, but not satisfactorily, denies febrile illness. Patient reports eating okay, has usual bowel movement every 2 to 3 days, moved bowel. Report ongoing vulvovaginal candidiasis, repeat fluconazole dose, pt requesting topicl PV clotrim which she had found relief in the past, ordered. Physical Exam Physical Exam: General Appearance: Chronically ill-appearing, conversing easily. Appears slightly anxious, but pleasant. No acute distress. Head: Normocephalic, atraumatic. Eyes: Normal inspection, PERRL, conjunctivae normal, anicteric sclerae. ENT: External ear and nose normal, oropharynx normal. Neck: Normal visual inspection, trachea midline, no thyromegaly. Respiratory: Normal respiratory effort, lungs clear to auscultation, no wheeze, rales, rhonchi. No accessory muscle use. Cardiovascular: Regular rate, rhythm, no murmur, normal peripheral pulses, no BLE edema. Vessels: No JVD. Chest: Normal inspection of chest. Abdomen/GI: Normal bowel sounds, tender to palpation in suprapubic region x mild. Extremities/Musculoskeletal: No cyanosis or clubbing, nontender. Neurologic: PERRL, EOMI, accommodation nl, no face palsy, no dysarthria. Psychiatric: A+Ox3, euthymic affect. Skin: No rashes, normal color, warm/dry. Suprapubic catheter site w/out surrounding erythema or discharge, no bleeding present. Results & Data Results & Data Vital Signs (Past 12 Hours) Vital Signs Temp Pulse Resp BP Pulse Ox O2 Del Method 11/12/23 14:30 36.4 C L 92 H 16 135/79 95 Room Air 11/12/23 08:23 Room Air 11/12/23 06:59 36.6 C 73 16 145/86 H 97 Room Air
[2023-11-12] MEDS: FLUCONAZOLE 50 MG TAB PO ONE (17:25)
[2023-11-12] MEDS: CLOTRIMAZOLE VAGINAL CR 7 APPLN/45 GM TUBE PV SCH (20:11)
[2023-11-13 06:49] LABS: Hematocrit (blood only) 37.8 % (37.0-47.0); Hemoglobin 12.1 g/dl (12.0-16.0); Mean Corpuscular Hemoglobin 28.6 pg (25.0-34.0); Mean Corpuscular Volume 89.4 fL (80.0-100.0); Mean Platelet Volume 9.7 fL (9.4-12.4); Platelet Count 302 K/uL (130-400); RDW Coefficient of Variation 14.1 % (11.5-14.5); Red Blood Count 4.23 M/uL (4.20-5.40); White Blood Count 6.56 K/ul (4.8-10.8)
[2023-11-13 08:06] LABS: BUN Creatinine Ratio 24.6 (10-20); Calcium 8.5 mg/dl (8.6-10.3); Creatinine Clr Calc Pharmacy 132.7 ml/min; Est GFR (African American) 134.2 ml/min; Est GFR (Non-African American) 115.8 ml/min
[2023-11-13] MEDS ORDERED: PROCHLORPERAZINE 5 MG/ML 2 ML VIAL IV STA (11:38)
[2023-11-13] MEDS: PROCHLORPERAZINE 10 MG in SYRINGE 8 ML IV ONE (12:13)
[2023-11-13] MEDS: KETOROLAC TROMETHAMINE 15 MG/ML VIAL IV STA (12:13)
[2023-11-13] MEDS: diphenhydrAMINE 50 MG/ML VIAL IV STA (12:13)
--- NOTE | 2023-11-13 15:07 | Hospitalist Progress Note ---
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 Admitting labs unremarkable, no leukocytosis, renal function WNL. UA suggestive of UTI. Admitting CTAP: Bladder wall thickening which could be correlated with urine analysis. Suprapubic catheter in place. Moderate amount of stool within the colon. Status post gastric bypass. No bowel thickening. Continue with daptomycin 11/10/2023. Admitting urine culture - contaminated. Baseline CPK 28. Patient not on any statin. PRN IV Zofran and PO Tylenol orders in place. Urology evaled. Bowel regimen initiated given CT findings above, scheduled daily MiraLAX and Colace. Linzes per pt request as she takes them at home. Can continue MAKEUP INSTRUCTOR trazodone and ramelteon for sleep. UG guided iv line and iv dapto on discharge. Chronic suprapubic catheter: Neurogenic bladder: Urinary retention: Bladder spasms: She does follow / [facility] given hx of neurogenic bladder, chronic suprapubic catheter [employer]UP INSTRUCTOR. She had a cystoscopy w/ Botox injections on 10/26 w/ Dr. Olmos. Her suprapubic catheter was also changed at that time. Will continue MAKEUP INSTRUCTOR mirabegron, oxybutynin, phenazopyridine and tolterodine. Continue to monitor suprapubic catheter site, does not currently appear infected on examination. Urology evaled, OP f/u. Cerebral palsy: Paralysis of both lower limbs: Muscle spasm of both lower legs: Ambulatory dysfunction: Patient does have 2 rotating caretakers at home to assist her throughout the day with ambulation/ADLs. OOB w/ assistance activity order in place. Will continue MAKEUP INSTRUCTOR baclofen, cyclobenzaprine and diazepam. Vaginal yeast infection: Intertriginous candidiasis: Patient is complaining of vaginal yeast infection symptoms x few days. Fluconazole x 1 dose 11/10/23. Topical clotrim for intertriginous candidiasis. Repeat fluconazole on 11/11. PV clotrim x 7 days ordered 11/11. Bipolar depression: Depression: Anxiety disorder: Will continue MAKEUP INSTRUCTOR psychiatric medications while hospitalized. Hypertension: Appears to have been on anti-hypertensive medications in the past according to [facility] documentation, but is not currently on antihypertensive therapy. BP fairly oK. Will continue to monitor throughout hospitalization. GERD (gastroesophageal reflux disease): Will continue MAKEUP INSTRUCTOR daily Protonix, PRN Pepcid therapy. Asthma: Stable, not in exacerbation. History of PE/DVT: Continue MAKEUP INSTRUCTOR Eliquis. Chronic pain: Will continue MAKEUP INSTRUCTOR chronic opioid therapy, which is managed in the outpatient setting by her PCP. History of migraine headache: Patient does have a history of migraine headaches, takes Ajovy for preventative therapy and Ubrelvy for abortive therapy at home. Also takes topiramate. Follows with [facility]. -received Toradol, Compazine and Benadryl to be given in the ED to prevent any further progression to a migraine. -Could consider having patient bring in her Ubrelvy prescription from home to take while hospitalized, as this is a non-formulary medication. Pt states no help to bring those meds. -Continue to monitor for any progression of headache symptoms. Will continue MAKEUP INSTRUCTOR topiramate. DVT Prophylaxis: Eliquis Code Status: Full Code PCP: Sarah Saavedra PA-C Dispo: pt/ot, cm to assist w/ dc plan. Admission and Anticipated Discharge Date Admission Date: November 12, 2023 Subjective Patient was seen and examined at bedside. Patient was lying in bed, on room air, NAD. Patient reports improving lower abdominal pain, better than yesterday, denies febrile illness. Patient reports eating okay, has usual bowel movement every 2 to 3 days, moved bowel. Physical Exam Physical Exam: General Appearance: Chronically ill-appearing, conversing easily. Appears slightly anxious, but pleasant. No acute distress. Head: Normocephalic, atraumatic. Eyes: Normal inspection, PERRL, conjunctivae normal, anicteric sclerae. ENT: External ear and nose normal, oropharynx normal. Neck: Normal visual inspection, trachea midline, no thyromegaly. Respiratory: Normal respiratory effort, lungs clear to auscultation, no wheeze, rales, rhonchi. No accessory muscle use. Cardiovascular: Regular rate, rhythm, no murmur, normal peripheral pulses, no BLE edema. Vessels: No JVD. Chest: Normal inspection of chest. Abdomen/GI: Normal bowel sounds, tender to palpation in suprapubic region x mild. Extremities/Musculoskeletal: No cyanosis or clubbing, nontender. Neurologic: PERRL, EOMI, accommodation nl, no face palsy, no dysarthria. Psychiatric: A+Ox3, euthymic affect. Skin: No rashes, normal color, warm/dry. Suprapubic catheter site w/out surrounding erythema or discharge, no bleeding present. Results & Data Results & Data Vital Signs (Past 12 Hours) Vital Signs Temp Pulse Resp BP Pulse Ox O2 Del Method 11/13/23 07:11 36.6 C 88 14 131/77 97 Room Air
[2023-11-14] MEDS: LACTULOSE SYRUP 30 GM/45 ML UDP PO STA (02:15)
[2023-11-14] MEDS: bisacodyL 10 MG SUPP PR PRN (02:15)
[2023-11-14] MEDS: MAGNESIUM HYDROXIDE SUSP 30 ML UDC PO PRN (02:54)
[2023-11-14] MEDS ORDERED: PROCHLORPERAZINE 5 MG/ML 2 ML VIAL IV STA (06:21)
[2023-11-14] MEDS: diphenhydrAMINE 50 MG/ML VIAL IV STA (06:32)
[2023-11-14] MEDS: KETOROLAC 30 MG/ML VIAL IV ONE (06:32)
[2023-11-14] MEDS: PROCHLORPERAZINE 10 MG in SYRINGE 8 ML IV ONE (06:33)
--- NOTE | 2023-11-14 13:32 | Hospitalist Progress Note ---
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 Admitting labs unremarkable, no leukocytosis, renal function WNL. UA suggestive of UTI. Admitting CTAP: Bladder wall thickening which could be correlated with urine analysis. Suprapubic catheter in place. Moderate amount of stool within the colon. Status post gastric bypass. No bowel thickening. Continue with daptomycin 11/10/2023. Admitting urine culture - contaminated. Baseline CPK 28. Patient not on any statin. PRN IV Zofran and PO Tylenol orders in place. Urology evaled. Bowel regimen initiated given CT findings above, scheduled daily MiraLAX and Colace. Linzes per pt request as she takes them at home. Can continue PROGRESSIVE ASSEMBLER AND FITTER trazodone and ramelteon for sleep. Continue IV Dapto through 11/19 Discussed with CM who is arranging home services as soon as able Chronic suprapubic catheter: Neurogenic bladder: Urinary retention: Bladder spasms: She does follow / [facility] given hx of neurogenic bladder, chronic suprapubic catheter [employer]GRESSIVE ASSEMBLER AND FITTER. She had a cystoscopy w/ Botox injections on 10/26 w/ Dr. Olmos. Her suprapubic catheter was also changed at that time. Will continue PROGRESSIVE ASSEMBLER AND FITTER mirabegron, oxybutynin, phenazopyridine and tolterodine. Urology evaled, OP f/u. Cerebral palsy: Paralysis of both lower limbs: Muscle spasm of both lower legs: Ambulatory dysfunction: Patient does have 2 rotating caretakers at home to assist her throughout the day with ambulation/ADLs. OOB w/ assistance activity order in place. Will continue PROGRESSIVE ASSEMBLER AND [employer]TER baclofen, cyclobenzaprine and diazepam. Vaginal yeast infection: Intertriginous candidiasis: Patient is complaining of vaginal yeast infection symptoms x few days. Fluconazole x 1 dose 11/10/23. Topical clotrim for intertriginous candidiasis. Repeat fluconazole on 11/11. PV clotrim x 7 days ordered 11/11. Bipolar depression: Depression: Anxiety disorder: Will continue PROGRESSIVE ASSEM[employer]ER [employer]TER psychiatric medications while hospitalized. Hypertension: Appears to have been on anti-hypertensive medications in the past according to [facility] documentation, but is not currently on antihypertensive therapy. BP stable GERD (gastroesophageal reflux disease): Will continue PROGRESSIVE ASSEMBLER AND FITTER daily Protonix, PRN Pepcid therapy. Asthma: Stable, not in exacerbation. History of PE/DVT: Continue PROGRESSIVE ASSEMBLER [employer] FITTER Eliquis. Chronic pain: Will continue PROGR[employer]SEMBLER [employer]TER chronic opioid therapy, which is managed in the outpatient setting by her PCP. History of migraine headache: continue PROGRESSIVE ASSEMBL[employer]TER meds DVT Prophylaxis: Eliquis Code Status: Full Code PCP: Sarah Saavedra PA-C Dispo: pt/ot, cm to assist w/ dc plan. Medically stable for d/c A total of 45 minutes was spent coordinating, documenting, and providing care for this patient excluding time spent in the performance of separately billed services. This included personally viewing all current laboratories and imaging studies, medication reconciliation, outpatient chart review, and discussion with specialists. Admission and Anticipated Discharge Date Admission Date: November 12, 2023 Supervising Physician Co-Signing Physician Notes Patient was seen and examined at bedside. Stable. Reports improving lower abdominal pain. Reports feeling better. On examination, patient on room air, not in any acute distress, heart/lungs examination fairly WNL, lower abdominal mild tenderness. Rest of the examination as above. Possible discharge in 1 to 2 days. I have seen and examined the patient and have discussed the case with the provider above. I agree with the assessment and plan as stated. Subjective Patient was seen and examined in 381. Follow-up Enterococcus UTI. She feels well today and is hopeful to be discharged home. She denies fever, chills, sweats, lightheadedness, dizziness, chest pain, shortness breath, nausea vomiting or abdominal pain. She is tolerating diet. She denies any suprapubic catheter discomfort. She is requesting be discharged home on oral oxycodone for her chronic flank pain. Review of Systems Review of Systems: All systems reviewed & are unremarkable except as noted in HPI & below Physical Exam Physical Exam: Gen: WD/WN, F, paraplegia NAD, A&O x3 HEENT: Normocephalic, atraumatic, conjunctivae moist, sclerae anicteric, mucous membranes moist. Lung: Clear to Auscultation bilaterally, no wheezes/rales/rhonchi Heart: Regular rate, regular rhythm, no murmurs, rubs, or gallops Abdomen: obese, suprapubic cath, soft NT, ND +BS x 4 Extremities: No edema Skin: Warm, no rash, negative turgor. Results & Data Results & Data Vital Signs (Past 12 Hours) Vital Signs Temp Pulse Resp BP Pulse Ox O2 Del Method 11/14/23 07:15 36.6 C 91 H 14 131/79 97 Room Air Medications Administered Current Inpatient Medications Acetaminophen (Acetaminophen 325 Mg Tab) 650 mg PO Q4H PRN PRN Reason: pain/fever Stop: 12/10/23 19:55 Last Admin: 11/13/23 06:03 Dose: 650 mg Al Hydrox/Mg Hydrox/Simethicone (Aluminum/Magnesium Susp 30 Ml Udc) 30 ml PO Q6H PRN PRN Reason: Dyspepsia Stop: 12/10/23 19:55 Albuterol (Albuterol Hfa 8 Gm Inhaler) 2 puffs INH QID PRN PRN Reason: Shortness Of Breath Stop: 12/10/23 19:55 Apixaban (Apixaban 5 Mg Tablet) 5 mg PO BID [facility] Stop: 12/10/23 20:59 Last Admin: 11/14/23 07:40 Dose: 5 mg Baclofen (Baclofen 20 Mg Tab) 20 mg PO TID [facility] Stop: 12/10/23 20:59 Last Admin: 11/14/23 07:40 Dose: 20 mg Bisacodyl (Bisacodyl 10 Mg Supp) 10 mg SC DAILY PRN PRN Reason: Constipation Stop: 12/14/23 02:04 Last Admin: 11/14/23 02:15 Dose: 10 mg Cetirizine HCl (Cetirizine Hcl 10 Mg Tablet) 10 mg PO QAM [facility] Stop: 12/11/23 08:59 Last Admin: 11/14/23 07:40 Dose: 10 mg Clotrimazole (Clotrimazole 1% Cr 15 Gm Tube) 1 appln TOP UD PRN PRN Reason: Rash Stop: 12/10/23 19:55 Clotrimazole (Clotrimazole Vaginal Cr 7 Appln/45 Gm Tube) 1 appln PV HS [facility] Stop: 11/18/23 21:01 Last Admin: 11/13/23 20:09 Dose: 1 appln Cyclobenzaprine HCl (Cyclobenzaprine Hcl 10 Mg Tab) 10 mg PO BID PRN PRN Reason: Muscle Spasm Stop: 12/10/23 19:55 Last Admin: 11/13/23 02:12 Dose: 10 mg Diazepam (Diazepam 2 Mg Tablet) 2 mg PO TID [facility] Stop: 12/10/23 20:59 Last Admin: 11/14/23 07:40 Dose: 2 mg Diphenhydramine HCl (Diphenhydramine Capsule 25 Mg Cap) 25 mg PO Q4H PRN PRN Reason: Itching Stop: 12/11/23 01:20 Last Admin: 11/11/23 01:50 Dose: 25 mg Duloxetine HCl (Duloxetine Hcl 30 Mg Cap) [address] [facility] Stop: 12/11/23 08:59 Last Admin: 11/14/23 07:40 Dose: 30 mg Duloxetine HCl (Duloxetine Hcl 60 Mg Cap) [facility] Stop: 12/11/23 08:59 Last Admin: 11/14/23 07:40 Dose: 60 mg Famotidine (Famotidine 20 Mg Tab) 20 mg PO DAILY PRN PRN Reason: Acid Reflux Stop: 12/10/23 19:55 Heparin Sodium (Beef Lung) (Heparin 10 Unit/Ml 5 Ml Flush) 5 ml FLUSH PRN PRN PRN Reason: Flush Stop: 12/11/23 06:22 Last Admin: 11/13/23 17:38 Dose: 5 ml Hydroxyzine HCl (Hydroxyzine Hcl 25 Mg Tab) 50 mg PO TID PRN PRN Reason: Anxiety Stop: 12/10/23 19:55 Last Admin: 11/12/23 14:58 Dose: 50 mg Daptomycin 300 mg/ Syringe 6 mls @ 0 mls/min IV Q24H [facility]; Protocol Stop: 11/20/23 20:59 Last Admin: 11/13/23 20:09 Dose: 6 mls/min Linaclotide (Linaclotide 145 Mcg Capsule) 145 mcg PO DAILY [facility] Stop: 12/11/23 13:14 Last Admin: 11/14/23 07:39 Dose: 145 mcg Lurasidone HCl (Lurasidone Hcl 20 Mg Tab) 40 mg PO PM [facility] Stop: 12/10/23 20:59 Last Admin: 11/13/23 20:07 Dose: 40 mg Magnesium Hydroxide (Magnesium Hydroxide Susp 30 Ml Udc) 30 ml PO Q6H PRN PRN Reason: Constipation Stop: 12/10/23 19:55 Last Admin: 11/14/23 02:54 Dose: 30 ml Miscellaneous (Ramelteon--Order Awaiting Action) 1 each N/A QS [facility] Stop: 12/11/23 00:00 Last Admin: 11/11/23 11:58 Dose: Not Given Morphine Sulfate (Morphine Sulfate 4 Mg/Ml 1 Ml Carp\\Vial) 4 mg IV Q4H PRN PRN Reason: Pain Stop: 11/24/23 23:52 Ondansetron HCl (Ondansetron Inj 2 Mg/Ml 2 Ml Vial) 4 mg IV Q6H PRN PRN Reason: Nausea Stop: 12/10/23 19:55 Last Admin: 11/14/23 12:20 Dose: 4 mg Oxybutynin Chloride (Oxybutynin Chloride 5 Mg Tab) 5 mg PO Q8H PRN PRN Reason: bladder spasms Stop: 12/10/23 19:55 Last Admin: 11/12/23 20:25 Dose: 5 mg Oxybutynin Chloride (Oxybutynin Chloride Xl 5 Mg Tabcr) 5 mg PO QAM [facility] Stop: 12/11/23 08:59 Last Admin: 11/14/23 07:39 Dose: 5 mg Oxycodone HCl (Oxycodone Hcl Ir 5 Mg Tab (Immediate Release)) 5 - 10 mg PO QID PRN PRN Reason: Pain Stop: 11/24/23 23:51 Last Admin: 11/14/23 08:04 Dose: 10 mg Pantoprazole Sodium (Pantoprazole 40 Mg Tab) 40 mg PO BID [facility] Stop: 12/10/23 20:59 Last Admin: 11/14/23 07:40 Dose: 40 mg Phenazopyridine HCl (Phenazopyridine Hcl 200 Mg Tab) 200 mg PO Q8H PRN PRN Reason: pain Stop: 12/10/23 19:55 Last Admin: 11/12/23 11:34 Dose: 200 mg Polyethylene Glycol (Polyethylene (Miralax) 17 Gm Pack) 17 gm PO DAILY [facility] Stop: 12/11/23 08:59 Last Admin: 11/14/23 07:38 Dose: Not Given Senna/Docusate Sodium (Docusate Sodium/Senna 50/8.6mg Tab) 1 tab PO BID [facility] Stop: 12/12/23 03:34 Last Admin: 11/14/23 07:40 Dose: 1 tab Topiramate (Topiramate 50 Mg Tab) 50 mg PO BID [facility] Stop: 12/10/23 20:59 Last Admin: 11/14/23 07:39 Dose: 50 mg Trazodone HCl (Trazodone Hcl 100 Mg Tab) 100 mg PO HS PRN PRN Reason: Sleep Stop: 12/10/23 19:55 Vibegron (Vibegron 75 Mg Tab) 75 mg PO QAM [facility] Stop: 12/11/23 08:59 Last Admin: 11/14/23 07:39 Dose: 75 mg
[2023-11-14] MEDS: traZODone HCL 100 MG TAB PO PRN (22:43)
[2023-11-15] MEDS ORDERED: PROCHLORPERAZINE 5 MG/ML 2 ML VIAL IV STA (05:47)
[2023-11-15] MEDS: KETOROLAC TROMETHAMINE 15 MG/ML VIAL IV STA (06:14)
[2023-11-15] MEDS: diphenhydrAMINE 50 MG/ML VIAL IV STA (06:14)
[2023-11-15] MEDS: PROCHLORPERAZINE 10 MG in SYRINGE 8 ML IV STA (06:15)
--- NOTE | 2023-11-15 13:08 | Hospitalist Progress Note ---
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 Admitting labs unremarkable, no leukocytosis, renal function WNL. UA suggestive of UTI. Admitting CTAP: Bladder wall thickening which could be correlated with urine analysis. Suprapubic catheter in place. Moderate amount of stool within the colon. Status post gastric bypass. No bowel thickening. Continue with daptomycin 11/10/2023. Admitting urine culture - contaminated. Baseline CPK 28. Patient not on any statin. PRN IV Zofran and PO Tylenol orders in place. Urology evaled. Bowel regimen initiated given CT findings above, scheduled daily MiraLAX and Colace. Linzes per pt request as she takes them at home. Can continue [employer] SURGEON trazodone and ramelteon for sleep. Continue IV Dapto through 11/19 Discussed with CM who is arranging home services as soon as able Chronic suprapubic catheter: Neurogenic bladder: Urinary retention: Bladder spasms: She does follow / [facility] Urology given hx of neurogenic bladder, chronic suprapubic catheter [employer] SURGE[employer]. She had a cystoscopy w/ Botox injections on 10/26 w/ Dr. Olmos. Her suprapubic catheter was also changed at that time. Will continue [employer]ER[employer]GEON mirabegron, oxybutynin, phenazopyridine and tolterodine. Urology evaled, OP f/u. Cerebral palsy: Paralysis of both lower limbs: Muscle spasm of both lower legs: Ambulatory dysfunction: Patient does have 2 rotating caretakers at home to assist her throughout the day with ambulation/ADLs. OOB w/ assistance activity order in place. Will continue [employer]GEON baclofen, cyclobenzaprine and diazepam. Vaginal yeast infection: Intertriginous candidiasis: Patient is complaining of vaginal yeast infection symptoms x few days. Fluconazole x 1 dose 11/10/23. Topical clotrim for intertriginous candidiasis. Repeat fluconazole on 11/11. PV clotrim x 7 days ordered 11/11. Bipolar depression: Depression: Anxiety disorder: Will continue [employer]ER[employer] SURGEON psychiatric medications while hospitalized. Hypertension: Appears to have been on anti-hypertensive medications in the past according to [facility] documentation, but is not currently on antihypertensive therapy. BP stable GERD (gastroesophageal reflux disease): Will continue [employer]GEON daily Protonix, PRN Pepcid therapy. Asthma: Stable, not in exacerbation. History of PE/DVT: Continue [employer]GEON Eliquis. Chronic pain: Will continue [employer] SURGEON chronic opioid therapy, which is managed in the outpatient setting by her PCP. History of migraine headache: continue [employer] SURGEON meds DVT Prophylaxis: Eliquis Code Status: Full Code PCP: Sarah Saavedra PA-C Dispo: pt/ot, cm to assist w/ dc plan. Medically stable for d/c A total of 45 minutes was spent coordinating, documenting, and providing care for this patient excluding time spent in the performance of separately billed services. This included personally viewing all current laboratories and imaging studies, medication reconciliation, outpatient chart review, and discussion with specialists. Admission and Anticipated Discharge Date Admission Date: November 12, 2023 Supervising Physician Co-Signing Physician Notes Patient was seen and examined at bedside. Stable. Reports improving lower abdominal pain. Reports feeling better. On examination, patient on room air, not in any acute distress, heart/lungs examination fairly WNL, lower abdominal mild tenderness. Rest of the examination as above. Possible discharge in 1 to 2 days. I have seen and examined the patient and have discussed the case with the provider above. I agree with the assessment and plan as stated. Subjective Patient was seen and examined in 381. Follow-up Enterococcus UTI. SHe continues to have flank/suprapubic pain. She is hopeful for discharge today but unfortunately it may take a few days according to CM. She denies f/c/s, chest pain, sob, n/v/d. Review of Systems Review of Systems: All systems reviewed & are unremarkable except as noted in HPI & below Physical Exam Physical Exam: Gen: WD/WN, F, paraplegia NAD, A&O x3 HEENT: Normocephalic, atraumatic, conjunctivae moist, sclerae anicteric, mucous membranes moist. Lung: Clear to Auscultation bilaterally, no wheezes/rales/rhonchi Heart: Regular rate, regular rhythm, no murmurs, rubs, or gallops Abdomen: obese, suprapubic cath, soft NT, ND +BS x 4 Extremities: No edema Skin: Warm, no rash, negative turgor. Results & Data Results & Data Vital Signs (Past 12 Hours) Vital Signs Temp Pulse Resp BP Pulse Ox O2 Del Method 11/15/23 07:08 36.7 C 96 H 16 115/78 95 Room Air Medications Administered Current Inpatient Medications Acetaminophen (Acetaminophen 325 Mg Tab) 650 mg PO Q4H PRN PRN Reason: pain/fever Stop: 12/10/23 19:55 Last Admin: 11/15/23 10:49 Dose: 650 mg Al Hydrox/Mg Hydrox/Simethicone (Aluminum/Magnesium Susp 30 Ml Udc) 30 ml PO Q6H PRN PRN Reason: Dyspepsia Stop: 12/10/23 19:55 Albuterol (Albuterol Hfa 8 Gm Inhaler) 2 puffs INH QID PRN PRN Reason: Shortness Of Breath Stop: 12/10/23 19:55 Apixaban (Apixaban 5 Mg Tablet) 5 mg PO BID [facility] Stop: 12/10/23 20:59 Last Admin: 11/15/23 08:36 Dose: 5 mg Baclofen (Baclofen 20 Mg Tab) 20 mg PO TID [facility] Stop: 12/10/23 20:59 Last Admin: 11/15/23 08:36 Dose: 20 mg Bisacodyl (Bisacodyl 10 Mg Supp) 10 mg DE DAILY PRN PRN Reason: Constipation Stop: 12/14/23 02:04 Last Admin: 11/14/23 02:15 Dose: 10 mg Cetirizine HCl (Cetirizine Hcl 10 Mg Tablet) 10 mg PO QAM [facility] Stop: 12/11/23 08:59 Last Admin: 11/15/23 08:36 Dose: 10 mg Clotrimazole (Clotrimazole 1% Cr 15 Gm Tube) 1 appln TOP UD PRN PRN Reason: Rash Stop: 12/10/23 19:55 Clotrimazole (Clotrimazole Vaginal Cr 7 Appln/45 Gm Tube) 1 appln PV HS VAIBHAV Stop: 11/18/23 21:01 Last Admin: 11/14/23 20:00 Dose: 1 appln Cyclobenzaprine HCl (Cyclobenzaprine Hcl 10 Mg Tab) 10 mg PO BID PRN PRN Reason: Muscle Spasm Stop: 12/10/23 19:55 Last Admin: 11/13/23 02:12 Dose: 10 mg Diazepam (Diazepam 2 Mg Tablet) 2 mg PO TID VAIBHAV Stop: 12/10/23 20:59 Last Admin: 11/15/23 08:45 Dose: 2 mg Diphenhydramine HCl (Diphenhydramine Capsule 25 Mg Cap) 25 mg PO Q4H PRN PRN Reason: Itching Stop: 12/11/23 01:20 Last Admin: 11/14/23 15:41 Dose: 25 mg Duloxetine HCl (Duloxetine Hcl 30 Mg Cap) 30 mg PO QAM [facility] Stop: 12/11/23 08:59 Last Admin: 11/15/23 08:36 Dose: 30 mg Duloxetine HCl (Duloxetine Hcl 60 Mg Cap) 60 mg PO QAM [facility] Stop: 12/11/23 08:59 Last Admin: 11/15/23 08:36 Dose: 60 mg Famotidine (Famotidine 20 Mg Tab) 20 mg PO DAILY PRN PRN Reason: Acid Reflux Stop: 12/10/23 19:55 Heparin Sodium (Beef Lung) (Heparin 10 Unit/Ml 5 Ml Flush) 5 ml FLUSH PRN PRN PRN Reason: Flush Stop: 12/11/23 06:22 Last Admin: 11/15/23 13:06 Dose: 5 ml Hydroxyzine HCl (Hydroxyzine Hcl 25 Mg Tab) 50 mg PO TID PRN PRN Reason: Anxiety Stop: 12/10/23 19:55 Last Admin: 11/12/23 14:58 Dose: 50 mg Daptomycin 300 mg/ Syringe 6 mls @ 3 mls/min IV Q24H VAIBHAV; Protocol Stop: 11/20/23 20:59 Last Admin: 11/14/23 17:48 Dose: 3 mls/min Linaclotide (Linaclotide 145 Mcg Capsule) 145 mcg PO DAILY [facility] Stop: 12/11/23 13:14 Last Admin: 11/15/23 08:36 Dose: 145 mcg Lurasidone HCl (Lurasidone Hcl 20 Mg Tab) 40 mg PO PM VAIBHAV Stop: 12/10/23 20:59 Last Admin: 11/14/23 20:00 Dose: 40 mg Magnesium Hydroxide (Magnesium Hydroxide Susp 30 Ml Udc) 30 ml PO Q6H PRN PRN Reason: Constipation Stop: 12/10/23 19:55 Last Admin: 11/14/23 02:54 Dose: 30 ml Miscellaneous (Ramelteon--Order Awaiting Action) 1 each N/A QS [facility] Stop: 12/11/23 00:00 Last Admin: 11/11/23 11:58 Dose: Not Given Morphine Sulfate (Morphine Sulfate 4 Mg/Ml 1 Ml Carp\\Vial) 4 mg IV Q4H PRN PRN Reason: Pain Stop: 11/24/23 23:52 Ondansetron HCl (Ondansetron Inj 2 Mg/Ml 2 Ml Vial) 4 mg IV Q6H PRN PRN Reason: Nausea Stop: 12/10/23 19:55 Last Admin: 11/15/23 13:05 Dose: 4 mg Oxybutynin Chloride (Oxybutynin Chloride 5 Mg Tab) 5 mg PO Q8H PRN PRN Reason: bladder spasms Stop: 12/10/23 19:55 Last Admin: 11/12/23 20:25 Dose: 5 mg Oxybutynin Chloride (Oxybutynin Chloride Xl 5 Mg Tabcr) 5 mg PO QAM [facility] Stop: 12/11/23 08:59 Last Admin: 11/15/23 06:13 Dose: 5 mg Oxycodone HCl (Oxycodone Hcl Ir 5 Mg Tab (Immediate Release)) 5 - 10 mg PO QID PRN PRN Reason: Pain Stop: 11/24/23 23:51 Last Admin: 11/15/23 13:02 Dose: 10 mg Pantoprazole Sodium (Pantoprazole 40 Mg Tab) 40 mg PO BID [facility] Stop: 12/10/23 20:59 Last Admin: 11/15/23 08:36 Dose: 40 mg Phenazopyridine HCl (Phenazopyridine Hcl 200 Mg Tab) 200 mg PO Q8H PRN PRN Reason: pain Stop: 12/10/23 19:55 Last Admin: 11/15/23 11:58 Dose: 200 mg Polyethylene Glycol (Polyethylene (Miralax) 17 Gm Pack) 17 gm PO DAILY VAIBHAV Stop: 12/11/23 08:59 Last Admin: 11/15/23 08:37 Dose: 17 gm Senna/Docusate Sodium (Docusate Sodium/Senna 50/8.6mg Tab) 1 tab PO BID VAIBHAV Stop: 12/12/23 03:34 Last Admin: 11/15/23 08:36 Dose: 1 tab Topiramate (Topiramate 50 Mg Tab) 50 mg PO BID VAIBHAV Stop: 12/10/23 20:59 Last Admin: 11/15/23 08:36 Dose: 50 mg Trazodone HCl (Trazodone Hcl 100 Mg Tab) 100 mg PO HS PRN PRN Reason: Sleep Stop: 12/10/23 19:55 Last Admin: 11/14/23 22:43 Dose: 100 mg Vibegron (Vibegron 75 Mg Tab) 75 mg PO QAM [facility] Stop: 12/11/23 08:59 Last Admin: 11/15/23 08:36 Dose: 75 mg
[2023-11-16] MEDS ORDERED: HEPARIN 100 UNIT/ML 5ML FLUSH FLUSH PRN (02:30)
[2023-11-16] MEDS: PROCHLORPERAZINE 5 MG in SYRINGE 4 ML IV ONE (10:51)
[2023-11-16] MEDS: diphenhydrAMINE 50 MG/ML VIAL IV STA (10:51)
[2023-11-16] MEDS: KETOROLAC 30 MG/ML VIAL IV ONE (10:51)
--- NOTE | 2023-11-16 12:04 | Discharge Summary ---
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 Admitting labs unremarkable, no leukocytosis, renal function WNL. UA suggestive of UTI. Admitting CTAP: Bladder wall thickening which could be correlated with urine analysis. Suprapubic catheter in place. Moderate amount of stool within the colon. Status post gastric bypass. No bowel thickening. Continue with daptomycin 11/10/2023. Admitting urine culture - contaminated. Baseline CPK 28. Patient not on any statin. Urology evaled. Continue IV Dapto through 11/19 at [facility] Chronic suprapubic catheter: Neurogenic bladder: Urinary retention: Bladder spasms: She does follow / [facility] given hx of neurogenic bladder, chronic suprapubic catheter [employer]. She had a cystoscopy w/ Botox injections on 10/26 w/ Dr. Olmos. Her suprapubic catheter was also changed at that time. Will continue [employer] mirabegron, oxybutynin, phenazopyridine and tolterodine. Urology evaled and will follow up tomorrow as outpatient Cerebral palsy: Paralysis of both lower limbs: Muscle spasm of both lower legs: Ambulatory dysfunction: Patient does have 2 rotating caretakers at home to assist her throughout the day with ambulation/ADLs. OOB w/ assistance activity order in place. Will continue [employer] baclofen, cyclobenzaprine and diazepam. Vaginal yeast infection: Intertriginous candidiasis: Patient is complaining of vaginal yeast infection symptoms x few days. Fluconazole x 1 dose 11/10/23. Topical clotrim for intertriginous candidiasis. Repeat fluconazole on 11/11. PV clotrim x 7 days ordered 11/11. Constipation resolved, continue bowel regimen Bipolar depression: Depression: Anxiety disorder: Will continue [employer] psychiatric medications while hospitalized. Hypertension: Appears to have been on anti-hypertensive medications in the past according to [facility] documentation, but is not currently on antihypertensive therapy. BP stable GERD (gastroesophageal reflux disease): Will continue [employer] daily Protonix, PRN Pepcid therapy. Asthma: Stable, not in exacerbation. History of PE/DVT: Continue [employer] Eliquis. Chronic pain: Will continue [employer] chronic opioid therapy, which is managed in the outpatient setting by her PCP. History of migraine headache: continue [employer] meds, encouraged pt to f/u with neurology due to increased frequency DVT Prophylaxis: Eliquis Code Status: Full Code PCP: Sarah Saavedra PA-C Dispo:Discharge to home today to complete IV antibiotics as outpatient Notes For Next Care Provider CBC, CMP, CK, Mag at completion of antibiotics. A port will need de accessed upon completion of antibiotics. Medication Changes From Visit IV daptomycin 300 mg every 24 hours through 11/20/2023. You will receive this at [facility]. Clotrimazole 1% cream apply vaginally at bedtime for additional 4 days. Oxycodone 5 mg every 6 hours as needed for severe pain, quantity #6. Please follow-up with your PCP regarding further pain medication as you are under contract with them. 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 History obtained from patient, and associated ED/PCP/specialist records. Patient seen at bedside, one of her caretakers [currently has 2 rotating caretakers at home] is present in the room with her and provides some additional hx. Patient reports that she has been experiencing suprapubic pain and b/l flank pain/tenderness for the past ~2 weeks. Patient has been seen at [facility] ED four times since 10/29/23, with the most recent visit being yesterday, for the same ongoing symptoms that she is presenting with today. During her ED visit @ [facility] on 11/06/23, she was prescribed oral Augmentin (875-125mg) therapy x 10 days for UTI findings. Urine culture was completed at that time, and grew Enterococcus. Leslee ent states that she took her most recent dose this morning [totaling ~9 doses], and has not noticed any improvement in her symptoms since being on that ABX regimen. She does follow w/ [facility] given hx of neurogenic bladder, chronic suprapubic catheter [employer]. She had a cystoscopy w/ Botox injections on 10/26 w/ Dr. Olmos. Her suprapubic catheter was also changed at that time. Patient reports a few incidences of malodorous brownish discharge from her suprapubic catheter site, and some bleeding as well a few days ago that has since resolved. She denies any current nausea, but does have a hx of chronically intermittent episodes of nausea [has Zofran and Compazine available at home]. No recent episodes of vomiting. She was given IV Zofran, IV Toradol and PO oxycodone in ED w/ some alleviation of her pain. She currently endorses 6/10 pain. She is reporting a mild headache, but denies any visual changes. She further denies any chest pain, SOB, bowel habit changes or decrease in urinary output. No issues with appetite or diet. Denies any recent fevers, chills, body aches. She is currently on chronic opioid therapy for chronic pain, which is managed in the outpatient setting by her PCP. 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 Labs performed in ED today are rather unremarkable, no evidence of leukocytosis. RBC 4.21, Hgb 12.2, Hct 37.5 --> No acute anemia process at play. Chloride slightly elevated at 110, but no other electrolyte abnormalities present. UA revealed evidence of blood, leukocyte Estrace, WBC and RBC. CT of abdomen/pelvis displayed the following: * Suprapubic catheter in place, bladder wall thickening, NO hydronephrosis or urinary calculi. * Moderate amount of stool within colon. No bowel wall thickening, s/p gastric bypass. Admission Exam Per Admitting Provider General Appearance: Chronically ill-appearing, conversing easily. Appears slightly anxious, but pleasant. No acute distress. Head: Normocephalic, atraumatic. Eyes: Normal inspection, PERRL, conjunctivae normal, anicteric sclerae. ENT: External ear and nose normal, oropharynx normal. Neck: Normal visual inspection, trachea midline, no thyromegaly. Respiratory: Normal respiratory effort, lungs clear to auscultation, no wheeze, rales, rhonchi. No accessory muscle use. Cardiovascular: Regular rate, rhythm, no murmur, normal peripheral pulses, no BLE edema. Vessels: No JVD. Chest: Normal inspection of chest. Abdomen/GI: Normal bowel sounds, tender to palpation in suprapubic region. Extremities/Musculoskeletal: No cyanosis or clubbing, nontender. Neurologic: PERRL, EOMI, accommodation nl, no face palsy, no dysarthria. Psychiatric: A+Ox3, euthymic affect. Skin: No rashes, normal color, warm/dry. Suprapubic catheter site w/out surrounding erythema or discharge, no bleeding present. Discharge Exam Gen: WD/WN, F, paraplegia NAD, A&O x3 HEENT: Normocephalic, atraumatic, conjunctivae moist, sclerae anicteric, mucous membranes moist. Lung: Clear to Auscultation bilaterally, no wheezes/rales/rhonchi Heart: Regular rate, regular rhythm, no murmurs, rubs, or gallops Abdomen: obese, suprapubic cath, soft NT, ND +BS x 4 Extremities: No edema Skin: Warm, no rash, negative turgor. Updated Medication List Medication Instructions Recorded Confirmed Type albuterol sulfate 90 mcg/actuation 2 puff inhalation QID PRN 04/13/18 11/10/23 History aerosol inhaler (Ventolin HFA) Shortness Of Breath cetirizine 10 mg tablet (Zyrtec) 10 mg PO QAM 04/13/18 11/10/23 History duloxetine 60 mg capsule,delayed 60 mg PO QAM 04/13/18 11/10/23 History release (Cymbalta) hydroxyzine HCl 50 mg tablet 50 mg PO TID PRN Anxiety 04/13/18 11/10/23 History polyethylene glycol 3350 17 17 g PO BID PRN Constipation 04/13/18 11/10/23 History gram/dose oral powder (Miralax) prochlorperazine maleate 10 mg 10 mg PO Q8H PRN Nausea 04/13/18 11/10/23 History tablet (Compazine) baclofen 20 mg tablet 20 mg PO TID 08/09/19 11/10/23 History cyclobenzaprine 10 mg tablet 10 mg PO BID PRN Muscle Spasm 03/29/20 11/10/23 History onabotulinumtoxinA 100 unit 200 unit IM Q90D 03/29/20 11/10/23 History solution for injection (Botox) ondansetron 4 mg disintegrating 4 mg PO Q6H PRN Nausea And Vomiting 03/29/20 11/10/23 History tablet acetaminophen 500 mg tablet 1,000 mg PO Q6H PRN Pain 09/11/20 11/10/23 History (Tylenol Extra Strength) diazepam 2 mg tablet 2 mg PO TID 09/11/20 11/10/23 History trazodone 100 mg tablet 100 mg PO HS PRN Sleep 08/13/21 11/10/23 History fremanezumab-vfrm 225 mg/1.5 mL 225 mg subcut MONTHLY 02/03/23 11/10/23 History subcutaneous auto-injector (Ajovy) pantoprazole 40 mg granules 40 mg PO BID 02/03/23 11/10/23 History delayed-release for susp in packet (Protonix) ramelteon 8 mg tablet 8 mg PO HS PRN Sleep 02/03/23 11/10/23 History apixaban 5 mg tablet (Eliquis) 5 mg PO BID 04/04/23 11/10/23 History lurasidone 40 mg tablet (Latuda) 40 mg PO PM 04/04/23 11/10/23 History acetaminophen 300 mg-codeine 30 mg 1 tab PO TID PRN Pain 04/21/23 11/10/23 History tablet oxybutynin chloride 5 mg tablet 5 mg PO Q8H PRN bladder spasms #90 09/23/23 11/10/23 Rx tabs clotrimazole 1 % topical cream 1 applic topical UD PRN Rash 09/29/23 11/10/23 History famotidine 20 mg tablet 20 mg PO DAILY PRN Acid Reflux 09/29/23 11/10/23 History topiramate 50 mg tablet 50 mg PO BID 09/29/23 11/10/23 History cholecalciferol (vitamin D3) 25 25 mcg PO QAM 10/14/23 11/10/23 History mcg (1,000 unit) tablet (Vitamin D3) cyanocobalamin (vitamin B-12) 1,000 mcg IM UD 10/14/23 11/10/23 History 1,000 mcg/mL injection solution docusate sodium 100 mg capsule 200 mg PO DAILY PRN Constipation 10/14/23 11/10/23 History (Colace) duloxetine 30 mg capsule,delayed 30 mg PO QAM 10/14/23 11/10/23 History release (Cymbalta) mirabegron 50 mg tablet,extended 50 mg PO QAM 10/14/23 11/10/23 History release 24 hr (Myrbetriq) multivitamin 1 tab PO QAM 10/14/23 11/10/23 History tolterodine 2 mg capsule,extended 2 mg PO QAM 10/14/23 11/10/23 History release 24 hr (Detrol LA) phenazopyridine 200 mg tablet 200 mg PO Q8H PRN pain #10 tabs 10/27/23 11/10/23 Rx (Pyridium) clotrimazole 1 % vaginal cream 1 applic vaginal HS 3 days #45 11/15/23 Rx grams oxycodone 5 mg tablet 5 mg PO Q6H PRN severe pain (scale 11/15/23 Rx score 7-10) #6 tabs Hospital Stay Data Consultations 11/10/23 15:04 ED Decision to Admit Stat 11/10/23 17:12 Consult Urology Routine Diagnostic Imagining Performed Abdomen/Pelvis CT 11/10/23 10:04 CT OF THE ABDOMEN AND PELVIS WITH CONTRAST CLINICAL HISTORY: suprapubic pain/spasm, recent bladder injection COMPARISON STUDY: CT of the abdomen and pelvis March 15, 2023. TECHNIQUE: Following IV administration of 94 mL of Optiray, axial images of the abdomen and pelvis were obtained from the lung bases to the proximal femurs. Images were reviewed in the axial, sagittal, and coronal planes. IV contrast was administered without complication. Automated exposure control was utilized for the study. A dose lowering technique was utilized adhering to the principles of ALARA. CT DOSE: 1485.78 mGy.cm FINDINGS: Lung bases are unremarkable. No pneumatosis, free air or portal venous gas is present. There is no biliary ductal dilatation status post cholecystectomy. There are no hepatic lesions. Spleen, adrenal glands, kidneys and pancreas are unremarkable. Fat-containing 9 mm left renal lesion represents an angiomyolipoma. This is benign. There is no hydronephrosis. There is no biliary ductal dilatation status post cholecystectomy. No abdominal or pelvic lymphadenopathy is identified. There is no evidence for a bowel obstruction status post gastric bypass. Suprapubic catheter is in place. No hydronephrosis. There are no urinary calculi. There is a moderate amount of stool within the colon. No acute fractures within the visualized skeletal structures are present. No areas of bony erosion are identified. Stable postoperative findings within the spine. Bladder wall thickening is noted. IMPRESSION: 1. Suprapubic catheter in place. Bladder wall thickening which could be correlated with urinalysis. No hydronephrosis. No urinary calculi. 2. Moderate amount of stool within colon. No bowel thickening. No bowel wall thickening. Status post gastric bypass. ACT 112: Negative or not required by law. Electronically signed by: Aaron Hernandez M.D. 11/10/2023 1:47 PM Pending Results Patient Have Any Pending Studies at Discharge: No Discharge Instructions Given to Patient (Per Discharging Provider) MEDICATION CHANGES: IV daptomycin 300 mg every 24 hours through 11/20/2023. You will receive this at [facility]. Clotrimazole 1% cream apply vaginally at bedtime for additional 4 days. Oxycodone 5 mg every 6 hours as needed for severe pain, quantity #6. Please follow-up with your PCP regarding further pain medication as you are under contract with them. SUMMARY OF TEST RESULTS: You were admitted to hospital secondary to complicated urinary tract infection. Your outpatient urine culture grew Enterococcus. You are being treated with IV daptomycin. You were seen and evaluated by urology. You will follow-up with them in clinic tomorrow. PENDING TEST RESULTS: None RECOMMENDATIONS FOR FOLLOW-UP: Please follow-up with primary care provider as scheduled. Please follow-up with urology as scheduled. Please complete antibiotics in their entirety. Encourage continue to follow urology in regards to your chronic pain regarding your suprapubic catheter. Continue home physical therapy. OTHER INSTRUCTIONS: Seek medical attention if you have: * temperature above 101 * chest pain or trouble breathing * abdominal pain, nausea, vomiting * diarrhea, dark stools or bloody stools * any unanswered questions or concerns Call 911 if symptoms are severe. Please take good care of yourself. It has been a pleasure taking care of you. Please take care of yourself. If you have any questions regarding your recent hospitalization please contact [facility] and request Juliet Peraltaist @ [phone]. Total Time Total Time Spent Total Time Spent (In Minutes): 45 minutes Supervising Physician Co-Signing Physician Notes Patient seen and examined Agree with findings and plans as detailed by Advanced Provider and take full responsibility
[2023-11-16] MEDS: DAPTOmycin 300 MG in SYRINGE 0 ML IV ONE (14:20)
== END 2023-11-16 16:52 | disposition home or self-care (01) | DRG 699 ==
LOC: 3N 09:23 → ED 09:23 → SUATTDRO 15:28 → 3N 20:12 → SUATTDRO 11-12 19:45

== ENCOUNTER 2023-11-24 18:08 | Inpatient (IN) ==
[2023-11-24 19:00] LABS: Basophils # (auto) 0.07 K/uL (0.00-0.20); Eosinophils # (auto) 0.09 K/uL (0.00-0.50); Eosinophils % (auto) 1.3 %; Hematocrit (blood only) 38.3 % (37.0-47.0); Hemoglobin 12.4 g/dl (12.0-16.0); Immature Granulocytes # (auto) 0.07 K/uL (0.01-0.20); Lymphocytes # (auto) 3.29 K/uL (1.20-3.40); Lymphocytes % (auto) 46.1 %; Mean Corpuscular Hemoglobin 28.7 pg (25.0-34.0); Mean Corpuscular Hgb Conc 32.4 g/dL (32.0-36.0); Mean Corpuscular Volume 88.7 fL (80.0-100.0); Mean Platelet Volume 9.3 fL (9.4-12.4); Monocytes # (auto) 0.37 K/uL (0.11-0.59); Monocytes % (auto) 5.2 %; Neutrophils # (auto) 3.25 K/uL (1.40-6.50); Neutrophils % (auto) 45.4 %; Platelet Count 379 K/uL (130-400); RDW Coefficient of Variation 14.3 % (11.5-14.5); RDW Standard Deviation 45.6 fL (36.4-46.3); Red Blood Count 4.32 M/uL (4.20-5.40); White Blood Count 7.14 K/ul (4.8-10.8)
[2023-11-24 19:21] LABS: Alanine Aminotransferase 20 U/L (7-52); Albumin Globulin Ratio 1.2 (0.9-2); Alkaline Phosphatase 63 U/L (34-104); Anion Gap 9 (3-11); Aspartate Aminotransferase 20 U/L (13-39); BUN Creatinine Ratio 11.9 (10-20); Bilirubin,Total 0.3 mg/dl (0.2-1.0); Blood Urea Nitrogen 8 mg/dl (6-23); Calcium 9.2 mg/dl (8.6-10.3); Carbon Dioxide 20 mmol/L (21-32); Chloride 109 mmol/L (98-107); Est GFR (African American) 130.1 ml/min; Est GFR (Non-African American) 112.3 ml/min; Globulin 3.3 gm/dl (2.5-4.0); Glucose 91 mg/dl (70-99(Fasting)); Potassium 3.9 mmol/L (3.5-5.1); Sodium 138 mmol/L (136-145); Total Protein 7.3 gm/dl (6.0-8.3)
[2023-11-24] MEDS: HYDROmorphone INJ 1 MG/ML SYRINGE IV STA (20:05)
[2023-11-24] MEDS: CASPOFUNGIN 70 MG in SODIUM CHLORIDE 0.9% 250 ML IV STA (20:05)
[2023-11-24] MEDS: ONDANSETRON INJ 2 MG/ML 2 ML VIAL IV STA (20:05)
--- NOTE | 2023-11-24 20:17 | History & Physical Report ---
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 Catheter-associated urinary tract infection (CAUTI) Hx of chronic suprapubic catheter placement 2/2 neurogenic bladder -Most recent urine culture growing Tanna glabrata -CBC, BMP unremarkable -Procalcitonin negative -Lactate negative -No hematuria on admission -Received IV caspofungin in ED -Pharmacy consulted placed for IV amphotericin -Last catheter change 10/27/23 --> ? time to change it again ? -Urology consulted -Follows w/ [facility] Urology -ID consulted --> catheter insertion site w/ foul-smelling, pus-like discharge -Blood culture pending -Repeat UA (+/- culture) pending -Monitor I&O's -Continue oxybutynin, mirabegron, tolterodine -Repeat CBC and BMP in AM Suprapubic pain -Administered IV Dilaudid in ED -PRN Tylenol for mild pain -PRN acetaminophen-codeine for moderate pain -PRN oxycodone IR for severe pain Chronic, intermittent nausea -Currently nauseous on admission -Was administered IV Zofran in ED -Will continue PRN IV Zofran, [employer] prochlorperazine HTN -BP 120/72 on admission -Continue [employer] anti-hypertensive medication regimen History of DVT, PE -Continue Eliquis Hx of cerebral palsy, spina bifida Spasticity, hyperreflexia -Continue baclofen, cyclobenzaprine -OOB w/ assistance Anxiety/PTSD Depression -Continue [employer] psychiatric medication regimen Other chronic medical conditions: GERD, insomnia/trouble sleeping, seasonal allergies, hx of migraines --> Can continue [employer] medications for treatment of these conditions. DVT Prophylaxis: Eliquis Code Status: Full Code PCP: Sarah Saavedra PA-C Dispo: Admit to Med/Surg Patient seen in collaboration with Dr. Hare. Please see addendum. I spent a total of 75 minutes coordinating, documenting, and providing care for this patient excluding time spent in the performance of separately billed services. This included personally reviewing all current laboratories and imaging studies, medical reconciliation, outpatient chart review and discussion with specialists. This chart was completed in part utilizing Speech Voice Recognition Software. G rammatical errors, random word insertions, pronoun errors, and incomplete sentences are an occasional consequence of this system due to software limitations, ambient noise, and hardware issues. Any formal questions or concerns about the content, text, or information contained within the body of this dictation should be directly addressed to the provider for clarification. 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 History obtained from patient and associated chart review. Patient was seen in the ED on Tuesday (11/21) for evaluation of hematuria and suprapubic/bladder pain. CTAP performed at that time was unremarkable. Urine showed hematuria but no signs of any infection. Urine culture from that visit ultimately grew Tanna glabrata. She was going to be treated in the outpatient setting, but ultimately was still experiencing suprapubic/bladder pain and was feeling pretty rundown thus prompting her return to the ED for treatment. Today, patient is no longer having any hematuria. Still having this suprapubic/bladder pain. Has not been able to get this pain under control. Has noticed some pus-like discharge from her suprapubic catheter insertion site with an associated foul smelling odor. No bleeding from the insertion site. No recent fever or chills. Has had some ongoing nausea, but no episodes of vomiting. Maybe feeling a little bit more tired than usual. Denies any diarrhea, headaches, chest pain or SOB. Did start taking losartan since her most recent discharge. Patient was recently admitted here at [facility] 11/09-11/15 with a complicated UTI and was ultimately treated with IV daptomycin. Allergies Allergy/AdvReac Type Severity Reaction Status Date / Time aripiprazole [From Abilify] Allergy Severe COULDN'T Verified 11/17/23 09:22 BREATHE aztreonam Allergy Severe SHORTNESS Verified 11/17/23 09:22 OF BREATH Beta-Blockers Allergy Severe COULDN'T Verified 11/17/23 09:22 (Beta-Adrenergic Bloc BREATHE Gadolinium-Containing Allergy Severe Swelling Verified 11/17/23 09:22 Contrast Medi of Lip/Tongue/Throat hydrocodone Allergy Severe Hives Verified 11/17/23 09:22 lithium Allergy Severe UNCONSCIOUS, Verified 11/17/23 09:22 UNRESPONSIVE meperidine Allergy Severe RESPIRATORY Verified 11/17/23 09:22 DISTRESS propranolol Allergy Severe Anaphylaxis Verified 11/17/23 09:22 verapamil Allergy Severe "Cant Verified 11/17/23 09:22 breathe" fexofenadine Allergy Intermediate HIVES Verified 11/17/23 09:22 linezolid Allergy Intermediate SHORTNESS Verified 11/17/23 09:22 OF BREATH propoxyphene Allergy Intermediate Hives Verified 11/17/23 09:22 Sulfa (Sulfonamide Allergy Intermediate SHORTNESS Verified 11/17/23 09:22 Antibiotics) OF BREATH ketorolac Allergy Mild ITCHY Verified 11/17/23 09:22 latex Allergy Mild Itching Verified 11/17/23 09:22 neomycin Allergy Mild ITCHY Verified 11/17/23 09:22 tetracycline Allergy Unknown UNKNOWN Verified 11/17/23 09:22 Home Medications Medication Instructions Recorded Confirmed Type albuterol sulfate 90 mcg/actuation 2 puff inhalation QID PRN 04/13/18 11/24/23 History aerosol inhaler (Ventolin HFA) Shortness Of Breath cetirizine 10 mg tablet (Zyrtec) 10 mg PO QAM 04/13/18 11/24/23 History duloxetine 60 mg capsule,delayed 60 mg PO QAM 04/13/18 11/24/23 History release (Cymbalta) hydroxyzine HCl 50 mg tablet 50 mg PO TID PRN Anxiety 04/13/18 11/24/23 History polyethylene glycol 3350 17 17 g PO BID PRN Constipation 04/13/18 11/24/23 History gram/dose oral powder (Miralax) prochlorperazine maleate 10 mg 10 mg PO Q8H PRN Nausea 04/13/18 11/24/23 History tablet (Compazine) baclofen 20 mg tablet 20 mg PO TID 08/09/19 11/24/23 History cyclobenzaprine 10 mg tablet 10 mg PO BID PRN Muscle Spasm 03/29/20 11/24/23 History onabotulinumtoxinA 100 unit 200 unit IM Q90D 03/29/20 11/24/23 History solution for injection (Botox) ondansetron 4 mg disintegrating 4 mg PO Q6H PRN Nausea And Vomiting 03/29/20 11/24/23 History tablet acetaminophen 500 mg tablet 1,000 mg PO Q6H PRN Pain 09/11/20 11/24/23 History (Tylenol Extra Strength) diazepam 2 mg tablet 2 mg PO TID 09/11/20 11/24/23 History trazodone 100 mg tablet 100 mg PO HS PRN Sleep 08/13/21 11/24/23 History fremanezumab-vfrm 225 mg/1.5 mL 225 mg subcut MONTHLY 02/03/23 11/24/23 History subcutaneous auto-injector (Ajovy) pantoprazole 40 mg granules 40 mg PO BID 02/03/23 11/24/23 History delayed-release for susp in packet (Protonix) ramelteon 8 mg tablet 8 mg PO HS PRN Sleep 02/03/23 11/24/23 History apixaban 5 mg tablet (Eliquis) 5 mg PO BID 04/04/23 11/24/23 History lurasidone 40 mg tablet (Latuda) 40 mg PO PM 04/04/23 11/24/23 History acetaminophen 300 mg-codeine 30 mg 1 tab PO TID PRN Pain 04/21/23 11/24/23 History tablet clotrimazole 1 % topical cream 1 applic topical UD PRN Rash 09/29/23 11/24/23 History famotidine 20 mg tablet 20 mg PO DAILY PRN Acid Reflux 09/29/23 11/24/23 History topiramate 50 mg tablet 50 mg PO BID 09/29/23 11/24/23 History cholecalciferol (vitamin D3) 25 25 mcg PO QAM 10/14/23 11/24/23 History mcg (1,000 unit) tablet (Vitamin D3) cyanocobalamin (vitamin B-12) 1,000 mcg IM UD 10/14/23 11/24/23 History 1,000 mcg/mL injection solution docusate sodium 100 mg capsule 200 mg PO DAILY PRN Constipation 10/14/23 11/24/23 History (Colace) duloxetine 30 mg capsule,delayed 30 mg PO QAM 10/14/23 11/24/23 History release (Cymbalta) multivitamin 1 tab PO QAM 10/14/23 11/24/23 History phenazopyridine 200 mg tablet 200 mg PO Q8H PRN pain #10 tabs 10/27/23 11/24/23 Rx (Pyridium) fluconazole 150 mg tablet 150 mg PO Q3D 2 doses #2 tabs 11/17/23 11/24/23 Rx mirabegron 25 mg tablet,extended 25 mg PO DAILY #90 tabs 11/17/23 11/24/23 Rx release 24 hr (Myrbetriq) oxybutynin chloride 5 mg tablet 5 mg PO Q8H PRN bladder spasms #90 11/17/23 11/24/23 Rx tabs tolterodine 2 mg capsule,extended 2 mg PO DAILY #90 caps 11/17/23 11/24/23 Rx release 24 hr oxycodone 5 mg tablet 5 mg PO Q6H PRN severe pain (scale 11/20/23 11/24/23 Rx score 7-10) #10 tabs losartan 25 mg tablet 25 mg PO QAM 11/24/23 11/24/23 History Past Med/Surg History Problem List (Updated 11/24/23 @ 22:23 by Zeeshan Samuel MD) UTI (urinary tract infection) (Acute) Suprapubic pain Catheter-associated urinary tract infection Hematuria (Acute) Chronic pelvic pain in female Headache Hypertension Intertriginous candidiasis Urinary retention Muscle spasm of both lower legs Ambulatory dysfunction Pt uses either wheelchair or walker, states she is able to stand and pivot herself. History of migraine headaches Paralysis of both lower limbs Chronic pain History of pulmonary embolism Around 2019 s/p surgery --> On Eliquis BID. On anticoagulant therapy Eliquis BID therapy in place. History of DVT (deep vein thrombosis) x2 per patient's medical records. Asthma WELL CONTROLLED, inhaler PRN. GERD (gastroesophageal reflux disease) Cerebral palsy Uses primarily wheelchair, sometimes walker, can stand and pivot self. Depression Anxiety disorder Vaginal yeast infection Complicated UTI (urinary tract infection) (Acute) Bladder spasms Chronic suprapubic catheter (Chronic) Neurogenic bladder (Acute) Chronic suprapubic catheter in place. Bipolar depression Medical History Allergy to multiple antibiotics Frequent UTI Radicular low back pain Falls Chronic back pain Abdominal pain Suicidal ideations Insulin resistance History of COVID-19 diagnosed 06/2023--mild symptoms, no symptoms now Morbid obesity with BMI of 40.0-44.9, adult Nausea and vomiting after administration of anesthetic agent NAUSEA ONLY. Degenerative disc disease HARD TIME LYING ON STOMACH FOR EXTENDED PERIODS OF TIME. Surgical History History of hysterectomy H/O gastric bypass History of cystoscopy with exchange of suprapubic cath 04/2023 @ [facility] History of esophagogastroduodenoscopy (EGD) History of foot surgery right--hardware in place History of colonoscopy History of hysterectomy History of laminectomy H/O shoulder surgery S/P surgical manipulation of ankle joint H/O dilation and curettage Hx of eye surgery Hx of spinal fusion Hx of cholecystectomy Family History Father Alive and well Hypertension Mother Alive and well Hypertension Other No family history of adverse response to anesthesia Social History Smoking Status: Never smoker Second Hand Exposure: No; Do You Dip or Chew Tobacco: No; Tobacco Cessation Education Requested by Patient: No Hx Alcohol Use: No Hx Substance Use: No Preferred Language: Croatian Communication Ability: Effective Visual Impairment: No Limitations Hand Glove Cleaner Required: No Beliefs That Will Affect Care: None marital status: Single Current Living Situation: Alone Current Living Situation Comment: 12 hour a day caregivers. Other Information That Helps Us Care for You: No Feels Safe at Home: Yes Safety Concerns: Feels Safe At This Time Assistive Devices: Bedside Commode, Hospital Bed, Mechanical Lift, Walker, Wheelchair and Other Review of Systems Review of Systems: At least ten systems reviewed and negative, except as noted in the HPI. Physical Exam Physical Exam: Please refer to Dr. Hare's addendum as we saw the patient together and he personally performed the physical examination. Results & Data Results & Data Vital Signs (Past 12 Hours) Vital Signs Temp Pulse Pulse Resp BP BP Pulse Ox 11/24/23 19:43 78 11/24/23 19:43 82 19 98 11/24/23 19:42 80 20 139/87 98 11/24/23 18:15 36.9 C 99 H 16 145/95 H 97 O2 Del Method 11/24/23 19:43 11/24/23 19:43 Room Air 11/24/23 19:42 Room Air 11/24/23 18:15 Room Air Laboratory Results Short CBC 11/24/23 Range/Units 18:45 WBC 7.14 (4.8-10.8) K/ul Hgb 12.4 (12.0-16.0) g/dl Hct 38.3 (37.0-47.0) % Plt Count 379 (130-400) K/uL BMP 11/24/23 18:45 Sodium 138 Potassium 3.9 Chloride 109 H Carbon Dioxide 20 L BUN 8 Creatinine 0.67 Glucose 91 Calcium 9.2 Liver Function 11/24/23 Range/Units 18:45 Total Bilirubin 0.3 (0.2-1.0) mg/dl AST 20 (13-39) U/L ALT 20 (7-52) U/L Alkaline Phosphatase 63 (34-104) U/L Albumin 4.0 (3.4-5.0) gm/dl Medications Administered Discontinued Medications Hydromorphone HCl (Hydromorphone Inj 1 Mg/Ml Syringe) 1 mg IV NOW STA Stop: 11/24/23 19:50 Last Admin: 11/24/23 20:05 Dose: 1 mg Documented By: NINFA Caspofungin 70 mg/ Sodium (Chloride) 260 mls @ 260 mls/hr IV NOW STA Stop: 11/24/23 20:44 Last Admin: 11/24/23 20:05 Dose: 260 mls/hr Documented By: NINFA Ondansetron HCl (Ondansetron Inj 2 Mg/Ml 2 Ml Vial) 4 mg IV NOW STA Stop: 11/24/23 19:50 Last Admin: 11/24/23 20:05 Dose: 4 mg Documented By: NINFA Code Status & VTE Plan Code Status FULL CODE VTE Prophylaxis Plan VTE Prophylaxis will be ordered: Yes Supervising Physician Co-Signing Physician Notes 38y/o F with PMHx of GERD w/o esophagitis, IBS w/ both constipation+diarrhea, vit D deficiency, morbid obesity, 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 Patient with continued lower abdominal pain, foul-smelling puslike discharge from the suprapubic catheter insertion site. Patient reports some nausea, denies febrile illness. Other labs looks normal. Patient was started on caspofungin at ED, will initiate Amphotericin, ID consult, urology consult/likely will need catheter exchange. General Appearance: Chronically ill-appearing, conversing easily. pleasant. No acute distress. Head: Normocephalic, atraumatic. Eyes: Normal inspection, PERRL, conjunctivae normal, anicteric sclerae. ENT: External ear and nose normal, oropharynx normal. Neck: Normal visual inspection, trachea midline, no thyromegaly. Respiratory: Normal respiratory effort, lungs clear to auscultation, no wheeze, rales, rhonchi. No accessory muscle use. Cardiovascular: Regular rate, rhythm, no murmur, normal peripheral pulses, no BLE edema. Vessels: No JVD. Chest: Normal inspection of chest. Abdomen/GI: Normal bowel sounds, tender to palpation in suprapubic region x mild. Extremities/Musculoskeletal: No cyanosis or clubbing, nontender. Neurologic: PERRL, EOMI, accommodation nl, no face palsy, no dysarthria. Psychiatric: A+Ox3, euthymic affect. Skin: No rashes, normal color, warm/dry. Suprapubic catheter site w/ foul smelling discharge. I have seen and examined the patient and have discussed the case with the provider above. I agree with the assessment and plan as stated. (1) Catheter-associated urinary tract infection Encounter type: subsequent encounter Indwelling urinary catheter type: cystostomy catheter Qualified Code(s): T83.510D - Infection and inflammatory reaction due to cystostomy catheter, subsequent encounter; N39.0 - Urinary tract infection, site not specified
[2023-11-24] MEDS ORDERED: ACETAMINOPHEN 500 MG TAB PO PRN (20:51)
[2023-11-24] MEDS ORDERED: ALBUTEROL HFA 8 GM INHALER INH PRN (20:51)
[2023-11-24] MEDS ORDERED: PROCHLORPERAZINE MALEATE 10 MG TAB PO PRN (20:51)
[2023-11-24] MEDS ORDERED: CLOTRIMAZOLE 1% CR 15 GM TUBE TOP PRN (20:51)
[2023-11-24] MEDS ORDERED: CYCLOBENZAPRINE HCL 10 MG TAB PO PRN (20:51)
[2023-11-24] MEDS ORDERED: FAMOTIDINE 20 MG TAB PO PRN (20:56)
[2023-11-24] MEDS ORDERED: hydrOXYzine HCl 25 MG TAB PO PRN (20:56)
[2023-11-24] MEDS: APIXABAN 5 MG TABLET PO SCH (21:51)
[2023-11-24] MEDS: BACLOFEN 20 MG TAB PO SCH (21:51)
[2023-11-24] MEDS: TOPIRAMATE 50 MG TAB PO SCH (21:51)
[2023-11-24] MEDS: PANTOprazole 40 MG TAB PO SCH (21:51)
[2023-11-24] MEDS: LURASIDONE HCL 20 MG TAB PO SCH (21:51)
[2023-11-24] MEDS: oxyCODONE HCL IR 5 MG TAB (IMMEDIATE RELEASE) PO PRN (21:53)
--- NOTE | 2023-11-24 22:24 | Emergency Department Note ---
History of Present Illness General Chief complaint: Referred by Doctor Stated complaint: BLADDER AND KIDNEY INFECTION Time Seen by Provider: 11/24/23 19:05 History of Present Illness Provider complaint: Abdominal pain nausea Maximum Pain Intensity: 8 38-year-old female presents emergency department for abdominal pain and nausea. Patient was seen in the emergency department 2 days ago for hematuria abdominal pain and nausea. Patient reports her hematuria has resolved but she continues to have abdominal pain and nausea. No fevers. No hematemesis coffee-ground emesis or bilious vomiting. Patient reports she was told to come to the emergency department because her urine culture was positive. Home Medications Medication Instructions Recorded Confirmed Type albuterol sulfate 90 mcg/actuation 2 puff inhalation QID PRN 04/13/18 11/24/23 History aerosol inhaler (Ventolin HFA) Shortness Of Breath cetirizine 10 mg tablet (Zyrtec) 10 mg PO QAM 04/13/18 11/24/23 History duloxetine 60 mg capsule,delayed 60 mg PO QAM 04/13/18 11/24/23 History release (Cymbalta) hydroxyzine HCl 50 mg tablet 50 mg PO TID PRN Anxiety 04/13/18 11/24/23 History polyethylene glycol 3350 17 17 g PO BID PRN Constipation 04/13/18 11/24/23 History gram/dose oral powder (Miralax) prochlorperazine maleate 10 mg 10 mg PO Q8H PRN Nausea 04/13/18 11/24/23 History tablet (Compazine) baclofen 20 mg tablet 20 mg PO TID 08/09/19 11/24/23 History cyclobenzaprine 10 mg tablet 10 mg PO BID PRN Muscle Spasm 03/29/20 11/24/23 History onabotulinumtoxinA 100 unit 200 unit IM Q90D 03/29/20 11/24/23 History solution for injection (Botox) ondansetron 4 mg disintegrating 4 mg PO Q6H PRN Nausea And Vomiting 03/29/20 11/24/23 History tablet acetaminophen 500 mg tablet 1,000 mg PO Q6H PRN Pain 09/11/20 11/24/23 History (Tylenol Extra Strength) diazepam 2 mg tablet 2 mg PO TID 09/11/20 11/24/23 History trazodone 100 mg tablet 100 mg PO HS PRN Sleep 08/13/21 11/24/23 History fremanezumab-vfrm 225 mg/1.5 mL 225 mg subcut MONTHLY 02/03/23 11/24/23 History subcutaneous auto-injector (Ajovy) pantoprazole 40 mg granules 40 mg PO BID 02/03/23 11/24/23 History delayed-release for susp in packet (Protonix) ramelteon 8 mg tablet 8 mg PO HS PRN Sleep 02/03/23 11/24/23 History apixaban 5 mg tablet (Eliquis) 5 mg PO BID 04/04/23 11/24/23 History lurasidone 40 mg tablet (Latuda) 40 mg PO PM 04/04/23 11/24/23 History acetaminophen 300 mg-codeine 30 mg 1 tab PO TID PRN Pain 04/21/23 11/24/23 History tablet clotrimazole 1 % topical cream 1 applic topical UD PRN Rash 09/29/23 11/24/23 History famotidine 20 mg tablet 20 mg PO DAILY PRN Acid Reflux 09/29/23 11/24/23 History topiramate 50 mg tablet 50 mg PO BID 09/29/23 11/24/23 History cholecalciferol (vitamin D3) 25 25 mcg PO QAM 10/14/23 11/24/23 History mcg (1,000 unit) tablet (Vitamin D3) cyanocobalamin (vitamin B-12) 1,000 mcg IM UD 10/14/23 11/24/23 History 1,000 mcg/mL injection solution docusate sodium 100 mg capsule 200 mg PO DAILY PRN Constipation 10/14/23 11/24/23 History (Colace) duloxetine 30 mg capsule,delayed 30 mg PO QAM 10/14/23 11/24/23 History release (Cymbalta) multivitamin 1 tab PO QAM 10/14/23 11/24/23 History phenazopyridine 200 mg tablet 200 mg PO Q8H PRN pain #10 tabs 10/27/23 11/24/23 Rx (Pyridium) fluconazole 150 mg tablet 150 mg PO Q3D 2 doses #2 tabs 11/17/23 11/24/23 Rx mirabegron 25 mg tablet,extended 25 mg PO DAILY #90 tabs 11/17/23 11/24/23 Rx release 24 hr (Myrbetriq) oxybutynin chloride 5 mg tablet 5 mg PO Q8H PRN bladder spasms #90 11/17/23 11/24/23 Rx tabs tolterodine 2 mg capsule,extended 2 mg PO DAILY #90 caps 11/17/23 11/24/23 Rx release 24 hr oxycodone 5 mg tablet 5 mg PO Q6H PRN severe pain (scale 11/20/23 11/24/23 Rx score 7-10) #10 tabs losartan 25 mg tablet 25 mg PO QAM 11/24/23 11/24/23 History Allergies Allergy/AdvReac Type Severity Reaction Status Date / Time aripiprazole [From Abiliy] Allergy Severe COULDN'T Verified 11/17/23 09:22 BREATHE aztreonam Allergy Severe SHORTNESS Verified 11/17/23 09:22 OF BREATH Beta-Blockers Allergy Severe COULDN'T Verified 11/17/23 09:22 (Beta-Adrenergic Bloc BREATHE Gadolinium-Containing Allergy Severe Swelling Verified 11/17/23 09:22 Contrast Medi of Lip/Tongue/Throat hydrocodone Allergy Severe Hives Verified 11/17/23 09:22 lithium Allergy Severe UNCONSCIOUS, Verified 11/17/23 09:22 UNRESPONSIVE meperidine Allergy Severe RESPIRATORY Verified 11/17/23 09:22 DISTRESS propranolol Allergy Severe Anaphylaxis Verified 11/17/23 09:22 verapamil Allergy Severe "Cant Verified 11/17/23 09:22 breathe" fexofenadine Allergy Intermediate HIVES Verified 11/17/23 09:22 linezolid Allergy Intermediate SHORTNESS Verified 11/17/23 09:22 OF BREATH propoxyphene Allergy Intermediate Hives Verified 11/17/23 09:22 Sulfa (Sulfonamide Allergy Intermediate SHORTNESS Verified 11/17/23 09:22 Antibiotics) OF BREATH ketorolac Allergy Mild ITCHY Verified 11/17/23 09:22 latex Allergy Mild Itching Verified 11/17/23 09:22 neomycin Allergy Mild ITCHY Verified 11/17/23 09:22 tetracycline Allergy Unknown UNKNOWN Verified 11/17/23 09:22 Past Med/Surg History Problem List (Updated 11/24/23 @ 22:23 by Zeeshan Samuel MD) UTI (urinary tract infection) (Acute) Suprapubic pain Catheter-associated urinary tract infection Hematuria (Acute) Chronic pelvic pain in female Headache Hypertension Intertriginous candidiasis Urinary retention Muscle spasm of both lower legs Ambulatory dysfunction Pt uses either wheelchair or walker, states she is able to stand and pivot herself. History of migraine headaches Paralysis of both lower limbs Chronic pain History of pulmonary embolism Around 2019 s/p surgery --> On Eliquis BID. On anticoagulant therapy Eliquis BID therapy in place. History of DVT (deep vein thrombosis) x2 per patient's medical records. Asthma WELL CONTROLLED, inhaler PRN. GERD (gastroesophageal reflux disease) Cerebral palsy Uses primarily wheelchair, sometimes walker, can stand and pivot self. Depression Anxiety disorder Vaginal yeast infection Complicated UTI (urinary tract infection) (Acute) Bladder spasms Chronic suprapubic catheter (Chronic) Neurogenic bladder (Acute) Chronic suprapubic catheter in place. Bipolar depression Medical History Allergy to multiple antibiotics Frequent UTI Radicular low back pain Falls Chronic back pain Abdominal pain Suicidal ideations Insulin resistance History of COVID-19 diagnosed 06/2023--mild symptoms, no symptoms now Morbid obesity with BMI of 40.0-44.9, adult Nausea and vomiting after administration of anesthetic agent NAUSEA ONLY. Degenerative disc disease HARD TIME LYING ON STOMACH FOR EXTENDED PERIODS OF TIME. Surgical History History of hysterectomy H/O gastric bypass History of cystoscopy with exchange of suprapubic cath 04/2023 @ [facility] History of esophagogastroduodenoscopy (EGD) History of foot surgery right--hardware in place History of colonoscopy History of hysterectomy History of laminectomy H/O shoulder surgery S/P surgical manipulation of ankle joint H/O dilation and curettage Hx of eye surgery Hx of spinal fusion Hx of cholecystectomy Family History Father Alive and well Hypertension Mother Alive and well Hypertension Other No family history of adverse response to anesthesia Social History Smoking Status: Never smoker Second Hand Exposure: No; Do You Dip or Chew Tobacco: No; Hx Alcohol Use: No Hx Substance Use: No Preferred Language: Korean Communication Ability: Effective Visual Impairment: No Limitations 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 Required: No Beliefs That Will Affect Care: None marital status: Single Current Living Situation: Alone Current Living Situation Comment: 12 hour a day caregivers Feels Safe at Home: Yes Assistive Devices: Bedside Commode, Hospital Bed, Mechanical Lift, Walker, Wheelchair and Other Physical Exam Vital Signs Vital Signs - 24 hr 11/24/23 18:15 11/24/23 19:42 11/24/23 19:43 Temperature 36.9 C Temperature Source Temporal Artery Scan Pulse Rate 99 H 82 Pulse Rate [Apical] 80 Pulse Rate from SpO2 Sensor Pulse Rhythm Regular Pulse Rhythm [Apical] Regular Pulse Strength [Apical] Normal Respiratory Rate 16 20 19 Respiratory Effort / Characteristics Non-Labored Spontaneous Non-Labored Spontaneous Respiratory Depth Normal Normal Respiratory Pattern Regular Regular Blood Pressure 145/95 H Blood Pressure [Right Arm] 139/87 Blood Pressure Mean 111 Blood Pressure Mean [Right Arm] 104 Pulse Oximetry 97 98 98 Oxygen Delivery Method Room Air Room Air Room Air Sepsis Recent Fever Within 48 Hours No Sepsis New/Unexplained Change in Mental Status No Sepsis Action Taken by Nursing No Action Required 11/24/23 19:43 11/24/23 19:45 11/24/23 20:03 Temperature Temperature Source Pulse Rate 78 80 78 Pulse Rate [Apical] Pulse Rate from SpO2 Sensor 80 79 Pulse Rhythm Pulse Rhythm [Apical] Pulse Strength [Apical] Respiratory Rate 17 15 Respiratory Effort / Characteristics Respiratory Depth Respiratory Pattern Blood Pressure Blood Pressure [Right Arm] Blood Pressure Mean Blood Pressure Mean [Right Arm] Pulse Oximetry 97 97 Oxygen Delivery Method Sepsis Recent Fever Within 48 Hours Sepsis New/Unexplained Change in Mental Status Sepsis Action Taken by Nursing 11/24/23 20:24 11/24/23 20:51 11/24/23 21:00 Temperature Temperature Source Pulse Rate 94 H 83 Pulse Rate [Apical] Pulse Rate from SpO2 Sensor 90 84 Pulse Rhythm Pulse Rhythm [Apical] Pulse Strength [Apical] Respiratory Rate 19 24 Respiratory Effort / Characteristics Respiratory Depth Respiratory Pattern Blood Pressure 120/72 Blood Pressure [Right Arm] Blood Pressure Mean 93 Blood Pressure Mean [Right Arm] Pulse Oximetry 94 95 Oxygen Delivery Method Sepsis Recent Fever Within 48 Hours Sepsis New/Unexplained Change in Mental Status Sepsis Action Taken by Nursing 11/24/23 21:00 11/24/23 21:00 11/24/23 21:12 Temperature Temperature Source Pulse Rate 78 73 Pulse Rate [Apical] 92 H Pulse Rate from SpO2 Sensor 78 76 Pulse Rhythm Pulse Rhythm [Apical] Pulse Strength [Apical] Respiratory Rate 18 19 15 Respiratory Effort / Characteristics Non-Labored Spontaneous Respiratory Depth Normal Respiratory Pattern Regular Blood Pressure Blood Pressure [Right Arm] 120/72 Blood Pressure Mean Blood Pressure Mean [Right Arm] 88 Pulse Oximetry 96 94 95 Oxygen Delivery Method Room Air Sepsis Recent Fever Within 48 Hours Sepsis New/Unexplained Change in Mental Status Sepsis Action Taken by Nursing 11/24/23 21:27 11/24/23 21:36 11/24/23 21:42 Temperature Temperature Source Pulse Rate 88 96 H 92 H Pulse Rate [Apical] Pulse Rate from SpO2 Sensor 88 95 H 92 H Pulse Rhythm Pulse Rhythm [Apical] Pulse Strength [Apical] Respiratory Rate 15 19 23 Respiratory Effort / Characteristics Respiratory Depth Respiratory Pattern Blood Pressure Blood Pressure [Right Arm] Blood Pressure Mean Blood Pressure Mean [Right Arm] Pulse Oximetry 94 94 94 Oxygen Delivery Method Sepsis Recent Fever Within 48 Hours Sepsis New/Unexplained Change in Mental Status Sepsis Action Taken by Nursing 11/24/23 21:54 Temperature Temperature Source Pulse Rate 90 Pulse Rate [Apical] Pulse Rate from SpO2 Sensor 90 Pulse Rhythm Pulse Rhythm [Apical] Pulse Strength [Apical] Respiratory Rate 19 Respiratory Effort / Characteristics Respiratory Depth Respiratory Pattern Blood Pressure Blood Pressure [Right Arm] Blood Pressure Mean Blood Pressure Mean [Right Arm] Pulse Oximetry 95 Oxygen Delivery Method Sepsis Recent Fever Within 48 Hours Sepsis New/Unexplained Change in Mental Status Sepsis Action Taken by Nursing Physical Exam HENT: Exam performed. -Head: Normocephalic and atraumatic. NECK: Normal range of motion. Neck supple. No JVD present. No tracheal deviation and normal range of motion present. CV: Normal rate, regular rhythm, normal heart sounds and intact distal pulses. There is no peripheral edema. Palpable radial pulses bue. PULM/CHEST: Effort normal and breath sounds normal. No respiratory distress. No stridor. She has no wheezes. She has no rales. -Chest Wall: She exhibits no tenderness. ABD: The abdomen is soft. There is diffuse tenderness to palpation. There is no rebound, no guarding Course Course 1904: The patient was evaluated in room C3. A complete history and physical exam was performed Cardiac monitoring: An order was placed for continuous cardiac monitoring. The monitor shows a rate of 90 with sinus rhythm interpreted by me Administered Medications Apixaban (Apixaban 5 Mg Tablet) 5 mg PO BID VAIBHAV Stop: 12/24/23 20:59 Last Admin: 11/24/23 21:51 Dose: 5 mg Documented By: DAMARIS Baclofen (Baclofen 20 Mg Tab) 20 mg PO TID [facility] Stop: 12/24/23 20:59 Last Admin: 11/24/23 21:51 Dose: 20 mg Documented By: DAMARIS Lurasidone HCl (Lurasidone Hcl 20 Mg Tab) 40 mg PO QDD [facility] Stop: 12/24/23 20:59 Last Admin: 11/24/23 21:51 Dose: 40 mg Documented By: DAMARIS Oxycodone HCl (Oxycodone Hcl Ir 5 Mg Tab (Immediate Release)) 5 mg PO Q6H PRN PRN Reason: severe pain (scale score 7-10) Stop: 12/08/23 20:55 Last Admin: 11/24/23 21:53 Dose: 5 mg Documented By: DAMARIS Pantoprazole Sodium (Pantoprazole 40 Mg Tab) 40 mg PO BID [facility] Stop: 12/24/23 20:59 Last Admin: 11/24/23 21:51 Dose: 40 mg Documented By: DAMARIS Topiramate (Topiramate 50 Mg Tab) 50 mg PO BID [facility] Stop: 12/24/23 20:59 Last Admin: 11/24/23 21:51 Dose: 50 mg Documented By: DAMARIS Discontinued Medications Hydromorphone HCl (Hydromorphone Inj 1 Mg/Ml Syringe) 1 mg IV NOW STA Stop: 11/24/23 19:50 Last Admin: 11/24/23 20:05 Dose: 1 mg Documented By: NINFA Caspofungin 70 mg/ Sodium (Chloride) 260 mls @ 260 mls/hr IV NOW STA Stop: 11/24/23 20:44 Last Infusion: 11/24/23 21:08 Dose: Infused Documented By: Admin: 11/24/23 20:05 Dose: 260 mls/hr Documented By: NINFA Ondansetron HCl (Ondansetron Inj 2 Mg/Ml 2 Ml Vial) 4 mg IV NOW STA Stop: 11/24/23 19:50 Last Admin: 11/24/23 20:05 Dose: 4 mg Documented By: NINFA Medical Decision Making Medical Records Attestation: I reviewed the patient's medical records. External medical records reviewed. Patient's urine culture came back positive for Tanna giabrata Laboratory Data Attestation: I reviewed the patient's lab results. 11/24/23 18:45 11/24/23 18:45 Lab Results 11/24/23 Range/Units 18:45 WBC 7.14 (4.8-10.8) K/ul RBC 4.32 (4.20-5.40) M/uL Hgb 12.4 (12.0-16.0) g/dl Hct 38.3 (37.0-47.0) % MCV 88.7 (80.0-100.0) fL MCH 28.7 (25.0-34.0) pg MCHC 32.4 (32.0-36.0) g/dL RDW Std Deviation 45.6 (36.4-46.3) fL RDW Coeff of Jerald 14.3 (11.5-14.5) % Plt Count 379 (130-400) K/uL MPV 9.3 L (9.4-12.4) fL Immature Gran % (Auto) 1.0 % Neut % (Auto) 45.4 % Lymph % (Auto) 46.1 % [facility] % (Auto) 5.2 % Eos % (Auto) 1.3 % Baso % (Auto) 1.0 % Neut # (Auto) 3.25 (1.40-6.50) K/uL Lymph # (Auto) 3.29 (1.20-3.40) K/uL [facility] # (Auto) 0.37 (0.11-0.59) K/uL Eos # (Auto) 0.09 (0.00-0.50) K/uL Baso # (Auto) 0.07 (0.00-0.20) K/uL Immature Gran # (Auto) 0.07 (0.01-0.20) K/uL Sodium 138 (136-145) mmol/L Potassium 3.9 (3.5-5.1) mmol/L Chloride 109 H (98-107) mmol/L Carbon Dioxide 20 L (21-32) mmol/L Anion Gap 9 (3-11) BUN 8 (6-23) mg/dl Creatinine 0.67 (0.6-1.2) mg/dl Est Cr Clr Drug Dosing Not Reportable Est GFR ( Amer) 130.1 ml/min Est GFR (Non-Af Amer) 112.3 ml/min BUN/Creatinine Ratio 11.9 (10-20) Glucose 91 (70-99(Fasting)) mg/dl Lactate 1.4 (0.4-2.0) mmol/L Calcium 9.2 (8.6-10.3) mg/dl Total Bilirubin 0.3 (0.2-1.0) mg/dl AST 20 (13-39) U/L ALT 20 (7-52) U/L Alkaline Phosphatase 63 (34-104) U/L Total Protein 7.3 (6.0-8.3) gm/dl Albumin 4.0 (3.4-5.0) gm/dl Globulin 3.3 (2.5-4.0) gm/dl Albumin/Globulin Ratio 1.2 (0.9-2) Procalcitonin 0.03 (0-0.5) ng/ml ECG Data Attestation: I personally reviewed and interpreted this ECG as follows: Indication: + abdominal pain Rate (beats per minute): 86 Rhythm: + normal sinus ECG Intervals/blocks: + Normal QRS, + Normal MD and + Normal QT-c ECG ST segments: + Normal ST segments MDM Narrative Labs within normal limits. Discussed with pharmacy and they recommended treatment with Augmentin which was dosed by them. Patient be admitted to [facility] hospitalist team. Impression & Plan UTI (urinary tract infection) Discharge Plan Visit Data Chief Complaint: Referred by Doctor Stated Complaint: BLADDER AND KIDNEY INFECTION ED Provider: Zeeshan Samuel Discharge Problem: UTI (urinary tract infection) Patient Disposition: Being Evaluated by Hospitalist Forms Stand Alone Forms: My [facility] Prescriptions Prescriptions: No Action oxycodone 5 mg tablet 5 mg PO Q6H PRN (Reason: severe pain (scale score 7-10)) Qty: 10 0RF topiramate 50 mg tablet 50 mg PO BID famotidine 20 mg tablet 20 mg PO DAILY PRN (Reason: Acid Reflux) clotrimazole 1 % cream 1 applic topical UD PRN (Reason: Rash) acetaminophen-codeine 300-30 mg tablet 1 tab PO TID PRN (Reason: Pain) pantoprazole [Protonix] [address] for susp in packet 40 mg PO BID ramelteon 8 mg tablet 8 mg PO HS PRN (Reason: Sleep) Ajovy Autoinjector 225 mg/1.5 mL auto-injector 225 mg subcut MONTHLY Rx Instructions: TAKES oxybutynin chloride 5 mg tablet 5 mg PO Q8H PRN (Reason: bladder spasms) Qty: 90 4RF fluconazole 150 mg tablet 150 mg PO Q3D Qty: 2 0RF Rx Instructions: Do not take with diazepam, hydroxyzine, or percocet mirabegron [Myrbetriq] 25 mg tablet extended release 24 hr 25 mg PO DAILY Qty: 90 4RF tolterodine 2 mg capsule,extended release 24hr 2 mg PO DAILY Qty: 90 2RF baclofen 20 mg Tablet 20 mg PO TID cetirizine [Zyrtec] 10 mg Tablet 10 mg PO QAM hydroxyzine HCl 50 mg Tablet 50 mg PO TID PRN (Reason: Anxiety) prochlorperazine maleate [Compazine] 10 mg Tablet 10 mg PO Q8H PRN (Reason: Nausea) polyethylene glycol 3350 [Miralax] 17 gram/dose Powder 17 g PO BID PRN (Reason: Constipation) albuterol sulfate [Ventolin HFA] 90 mcg/actuation Hfa Aerosol Inhaler 2 puff INHALATION QID PRN (Reason: Shortness Of Breath) duloxetine [Cymbalta] 60 mg Capsule,Delayed Release(Dr/Ec) 60 mg PO QAM Patient Comments: with 30mg to equal 90mg cyclobenzaprine 10 mg tablet 10 mg PO BID PRN (Reason: Muscle Spasm) Botox 100 unit recon soln 200 unit IM Q90D Patient Comments: EVERY 3 MONTHS last in september 2023 ondansetron 4 mg tablet,disintegrating 4 mg PO Q6H PRN (Reason: Nausea And Vomiting) acetaminophen [Tylenol Extra Strength] 500 mg Tablet 1,000 mg PO Q6H PRN (Reason: Pain) diazepam 2 mg tablet 2 mg PO TID trazodone 100 mg tablet 100 mg PO HS PRN (Reason: Sleep) lurasidone [Latuda] 40 mg Tablet 40 mg PO PM Rx Instructions: must administer with food (at least 350 calories) Eliquis 5 mg Tablet 5 mg PO BID docusate sodium [Colace] 100 mg Capsule 200 mg PO DAILY PRN (Reason: Constipation) duloxetine [Cymbalta] 30 mg Capsule,Delayed Release(Dr/Ec) 30 mg PO QAM cyanocobalamin (vitamin B-12) 1,000 mcg/mL Solution 1,000 mcg IM UD Patient Comments: every 3 months multivitamin Tablet,Chewable 1 tab PO QAM cholecalciferol (vitamin D3) [Vitamin D3] 25 mcg (1,000 unit) Tablet 25 mcg PO QAM phenazopyridine [Pyridium] 200 mg tablet 200 mg PO Q8H PRN (Reason: pain) Qty: 10 0RF losartan 25 mg tablet 25 mg PO QAM Referrals Referrals: Sarah Saavedra PA-C [Primary Care Provider] - Discharge Problem: UTI (urinary tract infection) Qualifiers: Urinary tract infection type: site unspecified Hematuria presence: without hematuria Qualified Code(s): N39.0 - Urinary tract infection, site not specified
[2023-11-24] MEDS ORDERED: MAGNESIUM HYDROXIDE SUSP 30 ML UDC PO PRN (22:41)
[2023-11-24] MEDS ORDERED: AMPHOTERICIN B CONSULT ACTIVE SCH (22:41)
[2023-11-24] MEDS ORDERED: ALUMINUM/MAGNESIUM SUSP 30 ML UDC PO PRN (22:41)
[2023-11-25] MEDS: ACETAMINOPHEN W/CODEINE #3 1 TAB PO PRN (00:10)
[2023-11-25] MEDS ORDERED: AMPHOTERICIN B CONSULT ACTIVE **For IV Formulations PRN (00:15)
[2023-11-25] MEDS: oxyBUTYnin chloride 5 MG TAB PO PRN (00:31)
[2023-11-25] MEDS ORDERED: DEXTROSE 5% IV SCH (01:00)
[2023-11-25] MEDS ORDERED: [UNRECOGNIZED DRUG - OTHER] IV SCH (01:00)
[2023-11-25] MEDS: DEXTROSE 5% IV SCH (01:32)
[2023-11-25] MEDS: [UNRECOGNIZED DRUG - OTHER] IV SCH (01:32)
[2023-11-25 02:25] LABS: Appearance Urine Cloudy (Clear); Bacteria Urine Automated None Seen (None Seen); Bilirubin Urine Negative (Negative); Blood Urine 1+ (Negative); Calcium Oxalate Crystals Urine Present (None Prsent); Color Urine Yellow; Epithelial Cell Urine Auto 0-2 /hpf (0-2); Glucose Urine UA Negative (Negative); Ketones Urine Negative (Negative); Leukocyte Esterase Urine 3+ (Negative); Nitrite Urine Negative (Negative); Protein Urine Negative (Negative); RBC Urine Automated 0-2 /hpf (0-2); Specific Gravity Urine 1.012 (1.000-1.030); Urobilinogen Urine Negative (Negative); WBC Urine Automated >50 /hpf (0-5)
[2023-11-25] MEDS: POLYETHYLENE (MIRALAX) 17 GM PACK PO PRN (05:42)
[2023-11-25 07:35] LABS: Hematocrit (blood only) 35.8 % (37.0-47.0); Hemoglobin 11.3 g/dl (12.0-16.0); Mean Corpuscular Hemoglobin 28.9 pg (25.0-34.0); Mean Corpuscular Hgb Conc 31.6 g/dL (32.0-36.0); Mean Corpuscular Volume 91.6 fL (80.0-100.0); Mean Platelet Volume 9.6 fL (9.4-12.4); Platelet Count 372 K/uL (130-400); RDW Coefficient of Variation 14.4 % (11.5-14.5); Red Blood Count 3.91 M/uL (4.20-5.40); White Blood Count 11.26 K/ul (4.8-10.8)
[2023-11-25 07:41] LABS: BUN Creatinine Ratio 13.7 (10-20); Calcium 8.8 mg/dl (8.6-10.3); Creatinine Clr Calc Pharmacy 113.8 ml/min; Est GFR (African American) 121.9 ml/min; Est GFR (Non-African American) 105.2 ml/min; Potassium 3.6 mmol/L (3.5-5.1)
[2023-11-25] MEDS: ONDANSETRON INJ 2 MG/ML 2 ML VIAL IV PRN (07:46)
[2023-11-25] MEDS: DULoxetine HCL 60 MG CAP PO SCH (09:06)
[2023-11-25] MEDS: CETIRIZINE HCL 10 MG TABLET PO SCH (09:06)
[2023-11-25] MEDS: VIBEGRON 75 MG TAB PO SCH (09:06)
[2023-11-25] MEDS: LOSARTAN POTASSIUM 25 MG TAB PO SCH (09:07)
[2023-11-25] MEDS: OXYBUTYNIN CHLORIDE XL 5 MG TABCR PO SCH (09:07)
[2023-11-25] MEDS: DULoxetine HCL 30 MG CAP PO SCH (09:07)
[2023-11-25] MEDS: bisacodyL 10 MG SUPP PR PRN (10:34)
[2023-11-25] MEDS: SENNA 8.6 MG TAB PO SCH (10:40)
[2023-11-25] MEDS ORDERED: HYDROCORTISONE SOD 25 MG in SYRINGE 0 ML IV PRN (11:57)
--- NOTE | 2023-11-25 12:58 | Urology Consultation ---
Date of Consultation November 25, 2023 Assessment & Plan (1) UTI (urinary tract infection): (2) Chronic suprapubic catheter: (3) Suprapubic pain: Plan 38-year-old female with a chronic suprapubic catheter admitted with complicated UTI Pt afebrile, hemodynamically stable. Labs - WBC 11.26, Hemoglobin 11.3, Creatinine 0.73 Urine and blood cultures pending. Urine culture 11/21 grew deb glabrata. On IV Amphotericin B. ID consulted. SP tube intact and draining. Last exchanged 10/27/23. 20Fr Silicone catheter removed without difficulty. Using sterile technique, a new 20Fr silicone catheter was inserted without difficulty. Clear yellow urine visualized in the catheter tubing/bag. A drain sponge was placed around the insertion site per patient request. Patient tolerated procedure well and experienced minimal discomfort with procedure. Maintain suprapubic catheter. Follow cultures and tailor treatment per culture sensitivities. Continue supportive care. Continue oxybutynin, Gemtesa, PRN Pyridium for bladder pain/spasms. No further intervention warranted. Plan for outpatient follow-up with our service as scheduled. Urology will sign-off. Please call with any further questions, concerns, or changes in patient status. 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 She is admitted to medicine service. Urology was consulted for complicated UTI. Patient is well-known to the urology service, follows with Dr. Olmos. Has chronic suprapubic catheter, last exchanged 10/27/23. She recently underwent cystoscopy, Botox injection, and suprapubic catheter exchange on 10/27/[address] abd pelvis 11/22/23- 1. No urinary calculi or hydronephrosis. 2. Suprapubic catheter in place. Collapsed bladder. 3. Moderate amount of stool within the colon. 4. No evidence for a bowel obstruction status post Mark-en-Y gastric bypass. Pt seen at bedside today. Awake, resting in bed on arrival. No acute distress. SP tube draining clear yellow urine. Patient reports suprapubic pain. Reports drainage and odor from catheter insertion site. Denies f/c/n/v. Denies hematuria. Allergies Allergy/AdvReac Type Severity Reaction Status Date / Time aripiprazole [From Abilify] Allergy Severe COULDN'T Verified 11/17/23 09:22 BREATHE aztreonam Allergy Severe SHORTNESS Verified 11/17/23 09:22 OF BREATH Beta-Blockers Allergy Severe COULDN'T Verified 11/17/23 09:22 (Beta-Adrenergic Bloc BREATHE Gadolinium-Containing Allergy Severe Swelling Verified 11/17/23 09:22 Contrast Medi of Lip/Tongue/Throat hydrocodone Allergy Severe Hives Verified 11/17/23 09:22 lithium Allergy Severe UNCONSCIOUS, Verified 11/17/23 09:22 UNRESPONSIVE meperidine Allergy Severe RESPIRATORY Verified 11/17/23 09:22 DISTRESS propranolol Allergy Severe Anaphylaxis Verified 11/17/23 09:22 verapamil Allergy Severe "Cant Verified 11/17/23 09:22 breathe" fexofenadine Allergy Intermediate HIVES Verified 11/17/23 09:22 linezolid Allergy Intermediate SHORTNESS Verified 11/17/23 09:22 OF BREATH propoxyphene Allergy Intermediate Hives Verified 11/17/23 09:22 Sulfa (Sulfonamide Allergy Intermediate SHORTNESS Verified 11/17/23 09:22 Antibiotics) OF BREATH ketorolac Allergy Mild ITCHY Verified 11/17/23 09:22 latex Allergy Mild Itching Verified 11/17/23 09:22 neomycin Allergy Mild ITCHY Verified 11/17/23 09:22 tetracycline Allergy Unknown UNKNOWN Verified 11/17/23 09:22 Home Medications Medication Instructions Recorded Confirmed Type albuterol sulfate 90 mcg/actuation 2 puff inhalation QID PRN 04/13/18 11/24/23 History aerosol inhaler (Ventolin HFA) Shortness Of Breath cetirizine 10 mg tablet (Zyrtec) 10 mg PO QAM 04/13/18 11/24/23 History duloxetine 60 mg capsule,delayed 60 mg PO QAM 04/13/18 11/24/23 History release (Cymbalta) hydroxyzine HCl 50 mg tablet 50 mg PO TID PRN Anxiety 04/13/18 11/24/23 History polyethylene glycol 3350 17 17 g PO BID PRN Constipation 04/13/18 11/24/23 History gram/dose oral powder (Miralax) prochlorperazine maleate 10 mg 10 mg PO Q8H PRN Nausea 04/13/18 11/24/23 History tablet (Compazine) baclofen 20 mg tablet 20 mg PO TID 08/09/19 11/24/23 History cyclobenzaprine 10 mg tablet 10 mg PO BID PRN Muscle Spasm 03/29/20 11/24/23 History onabotulinumtoxinA 100 unit 200 unit IM Q90D 03/29/20 11/24/23 History solution for injection (Botox) ondansetron 4 mg disintegrating 4 mg PO Q6H PRN Nausea And Vomiting 03/29/20 11/24/23 History tablet acetaminophen 500 mg tablet 1,000 mg PO Q6H PRN Pain 09/11/20 11/24/23 History (Tylenol Extra Strength) diazepam 2 mg tablet 2 mg PO TID 09/11/20 11/24/23 History trazodone 100 mg tablet 100 mg PO HS PRN Sleep 08/13/21 11/24/23 History fremanezumab-vfrm 225 mg/1.5 mL 225 mg subcut MONTHLY 02/03/23 11/24/23 History subcutaneous auto-injector (Ajovy) pantoprazole 40 mg granules 40 mg PO BID 02/03/23 11/24/23 History delayed-release for susp in packet (Protonix) ramelteon 8 mg tablet 8 mg PO HS PRN Sleep 02/03/23 11/24/23 History apixaban 5 mg tablet (Eliquis) 5 mg PO BID 04/04/23 11/24/23 History lurasidone 40 mg tablet (Latuda) 40 mg PO PM 04/04/23 11/24/23 History acetaminophen 300 mg-codeine 30 mg 1 tab PO TID PRN Pain 04/21/23 11/24/23 History tablet clotrimazole 1 % topical cream 1 applic topical UD PRN Rash 09/29/23 11/24/23 History famotidine 20 mg tablet 20 mg PO DAILY PRN Acid Reflux 09/29/23 11/24/23 History topiramate 50 mg tablet 50 mg PO BID 09/29/23 11/24/23 History cholecalciferol (vitamin D3) 25 25 mcg PO QAM 10/14/23 11/24/23 History mcg (1,000 unit) tablet (Vitamin D3) cyanocobalamin (vitamin B-12) 1,000 mcg IM UD 10/14/23 11/24/23 History 1,000 mcg/mL injection solution docusate sodium 100 mg capsule 200 mg PO DAILY PRN Constipation 10/14/2311/11 History (Colace) duloxetine 30 mg capsule,delayed 30 mg PO QAM 10/14/23 11/24/23 History release (Cymbalta) multivitamin 1 tab PO QAM 10/14/23 11/24/23 History phenazopyridine 200 mg tablet 200 mg PO Q8H PRN pain #10 tabs 10/27/23 11/24/23 Rx (Pyridium) fluconazole 150 mg tablet 150 mg PO Q3D 2 doses #2 tabs 11/17/23 11/24/23 Rx mirabegron 25 mg tablet,extended 25 mg PO DAILY #90 tabs 11/17/23 11/24/23 Rx release 24 hr (Myrbetriq) oxybutynin chloride 5 mg tablet 5 mg PO Q8H PRN bladder spasms #90 11/17/23 11/24/23 Rx tabs tolterodine 2 mg capsule,extended 2 mg PO DAILY #90 caps 11/17/23 11/24/23 Rx release 24 hr oxycodone 5 mg tablet 5 mg PO Q6H PRN severe pain (scale 11/20/23 11/24/23 Rx score 7-10) #10 tabs losartan 25 mg tablet 25 mg PO QAM 11/24/23 11/24/23 History Patient History Medical History Allergy to multiple antibiotics Frequent UTI Radicular low back pain Falls Chronic back pain Abdominal pain Suicidal ideations Insulin resistance History of COVID-19 diagnosed 06/2023--mild symptoms, no symptoms now Morbid obesity with BMI of 40.0-44.9, adult Nausea and vomiting after administration of anesthetic agent NAUSEA ONLY. Degenerative disc disease HARD TIME LYING ON STOMACH FOR EXTENDED PERIODS OF TIME. Surgical History History of hysterectomy H/O gastric bypass History of cystoscopy with exchange of suprapubic cath 04/2023 @ [facility] History of esophagogastroduodenoscopy (EGD) History of foot surgery right--hardware in place History of colonoscopy History of hysterectomy History of laminectomy H/O shoulder surgery S/P surgical manipulation of ankle joint H/O dilation and curettage Hx of eye surgery Hx of spinal fusion Hx of cholecystectomy Family History Father Alive and well Hypertension Mother Alive and well Hypertension Other No family history of adverse response to anesthesia Social History Smoking Status: Never smoker Second Hand Exposure: No; Do You Dip or Chew Tobacco: No; Hx Alcohol Use: No Hx Substance Use: No Preferred Language: Macedonian Communication Ability: Effective Visual Impairment: No Limitations Button Cutter Required: No Beliefs That Will Affect Care: None marital status: Single Current Living Situation: Alone Current Living Situation Comment: 12 hour a day caregivers. Feels Safe at Home: Yes Assistive Devices: Bedside Commode, Hospital Bed and Wheelchair Review of Systems Review of Systems: All systems reviewed & are unremarkable except as noted in HPI & below Physical Exam Constitutional: no acute distress Neck: normal visual inspection Respiratory: no respiratory distress and no labored breathing Musculoskeletal: Head/Neck/Chest: normocephalic Skin: No visible rashes or lesions to exposed skin areas Neurologic: awake Psychiatric: Orientation: alert, oriented x 3 and cooperative Genitourinary: Suprapubic catheter intact and draining appropriately Results & Data Vital Signs (Past 12 Hours) Vital Signs Temp Pulse Resp BP Pulse Ox O2 Del Method 11/25/23 07:22 36.6 C 60 16 134/86 98 Room Air PG Care Time/CCT Total # of Minutes Spent Total Time Spent with Patient: Total time spent is greater than 50% in coordination of care (as documented) at patient's floor/unit and/or counseling patient: Coding Level of Care Code 16820 IN/OBS CONSULT LVL 3,45M Diagnoses UTI (urinary tract infection) N39.0 Hematuria presence: without hematuria Urinary tract infection type: site unspecified Chronic suprapubic catheter Z93.59 Suprapubic pain R10.2 (1) UTI (urinary tract infection) Hematuria presence: without hematuria Urinary tract infection type: site unspecified Qualified Code(s): N39.0 - Urinary tract infection, site not specified
[2023-11-25] MEDS ORDERED: PROCHLORPERAZINE 5 MG/ML 2 ML VIAL IV STA (13:08)
[2023-11-25] MEDS: KETOROLAC TROMETHAMINE 15 MG/ML VIAL IV STA (13:28)
[2023-11-25] MEDS: PROCHLORPERAZINE 10 MG in SYRINGE 8 ML IV STA (13:28)
[2023-11-25] MEDS: diphenhydrAMINE 50 MG/ML VIAL IV STA (13:29)
--- NOTE | 2023-11-25 15:30 | Electrocardiogram Report ---
Test Reason : Blood Pressure : / mmHG Vent. Rate : 086 BPM Atrial Rate : 086 BPM P-R Int : 122 ms QRS Dur : 094 ms QT Int : 386 ms P-R-T Axes : 024 006 020 degrees QTc Int : 461 ms Normal sinus rhythm Confirmed by Luiz Huang ([id number]) on 11/25/2023 3:29:19 PM Referred By: Sarah Saavedra Confirmed By:Ajith Huang
[2023-11-25] MEDS: oxyCODONE HCL IR 5 MG TAB (IMMEDIATE RELEASE) PO STA (15:31)
--- NOTE | 2023-11-25 16:47 | Hospitalist Progress Note ---
Date of Service November 25, 2023 Assessment & Plan (1) Catheter-associated urinary tract infection: (2) Chronic suprapubic catheter: (3) Cerebral palsy: (4) Chronic pain: (5) Yeast UTI: (6) Tanna glabrata infection: (7) Migraine: Plan Patient has chronic pain including chronic abdominal pain status post gastric bypass and irritable bowel syndrome presented with recurrent abdominal pain and suprapubic pain and a urine culture that was growing Tanna glabrata. Patient with a very complex past medical history that makes it difficult to determine true infection. Needs hospitalization for further monitoring, observation and specialty evaluation. Unclear if patient's symptoms are associated with urine culture. Communication with the urology team, lizzette Borreropubic catheter exchanged Communication with infectious disease, Dr. Puga, typically do not aggressively treat yeast UTIs especially in the setting of chronic catheter. Will evaluate patient's data and symptoms and determine if ongoing antifungals are needed Patient does have a history of chronic inguinal/genital/pelvic yeast infections Migraine cocktail x 1 for patient report of migraine headache Of note, reviewed records from alternate EMR, [employer]. Recently treated for suspected vaginal yeast infection with Diflucan 11/09/2023 Monitor laboratory studies Admission and Anticipated Discharge Date Admission Date: November 24, 2023 Subjective Patient complaining of headache, requesting stool medications for constipation, requesting migraine cocktail Physical Exam Physical Exam: Constitutional: Alert, nontoxic in appearance HEENT: Mucous membranes moist. Lungs: Clear to auscultation, decreased, no wheezes rales or rhonchi CV: S1-S2, regular Abdomen: Soft, suprapubic catheter. Minimal tenderness Extremities: No significant edema Neuro: Chronic deficits associated with her cerebral palsy Psych: Cooperative, normal mood Results & Data Results & Data Vital Signs (Past 12 Hours) Vital Signs Temp Pulse Resp BP Pulse Ox O2 Del Method 11/25/23 16:15 Room Air 11/25/23 14:56 36.6 C 82 16 133/73 99 Room Air 11/25/23 07:22 36.6 C 60 16 134/86 98 Room Air Diagnostic Findings Reviewed imaging, laboratory and diagnostic studies. Pertinent findings as below. WBCs 11.2, hemoglobin 11.3 (1) Catheter-associated urinary tract infection Indwelling urinary catheter type: cystostomy catheter Encounter type: subsequent encounter Qualified Code(s): T83.510D - Infection and inflammatory reaction due to cystostomy catheter, subsequent encounter; N39.0 - Urinary tract infection, site not specified (3) Cerebral palsy Cerebral palsy type: unspecified type Qualified Code(s): G80.9 - Cerebral palsy, unspecified (4) Chronic pain Chronic pain type: other chronic pain Qualified Code(s): G89.29 - Other chronic pain
--- NOTE | 2023-11-25 18:24 | Infectious Disease Consult ---
Date of Service November 25, 2023 Telehealth Information I performed this visit using a real-time telehealth connection between my location and the patients location ([facility]). After connecting through interactive tele-video, patient was identified by name and date of and/or wristband check.Patient (or authorized healthcare physician representative) was informed that this was a telemedicine visit and it was being conducted confidentially over secure lines. My office door was closed and no one else was present in the room with me.Patient (or authorized healthcare physician representative) provided consent to proceed with the visit, expressed an understanding of privacy and security of the telemedicine visit, and gave permission to have a hospital physician representative in the room in order to assist with the visit and to conduct portions of the visit, as needed. I informed the patient (or authorized healthcare physician representative) that I reviewed their record and presented the opportunity for them to ask any questions regarding the visit today. The patient agreed to participate. Assessment & Plan (1) Candiduria: Plan: The diagnosis of CAUTI in a patient with spinal cord injury is challenging and it is difficult to determine whether the patients current symptoms are attributable to a UTI. However, she has already been treated with amphotericin. Per the IDSA guidelines re: Tanna, the treatment of fluconazole-resistant UTI can be as short as one day. Given the patients clinical stability and the risk of nephrotoxicity with amphotericin, I think we can hold further doses of amphotericin and monitor clinically. If she has persistent symptoms and the isolate is susceptible, we may consider using fluconazole (provided that the QTc is acceptable). Of course, if the patient becomes fungemic or unstable before we know if the isolate is susceptible to fluconazole, then amphotericin should be restarted. History of Present Illness History of Present Illness The patient has a history of paraplegia and neurogenic bladder with SPT. She was was seen in the ED on 11/09 for bladder spasms and nausea. CT revealed bladder thickening. H&P noted that there was no sign of infection at the SPT site. On 11/21, the patient returned to the ED for nausea, abdominal pain and hematuria. Urine WBC listed as 0-5 per HPF. UCX grew C.glabrata and the patient was asked to return to the hospital. The patients catheter was exchanged. Allergies Allergy/AdvReac Type Severity Reaction Status Date / Time aripiprazole [From Abilify] Allergy Severe COULDN'T Verified 11/17/23 09:22 BREATHE aztreonam Allergy Severe SHORTNESS Verified 11/17/23 09:22 OF BREATH Beta-Blockers Allergy Severe COULDN'T Verified 11/17/23 09:22 (Beta-Adrenergic Bloc BREATHE Gadolinium-Containing Allergy Severe Swelling Verified 11/17/23 09:22 Contrast Medi of Lip/Tongue/Throat hydrocodone Allergy Severe Hives Verified 11/17/23 09:22 lithium Allergy Severe UNCONSCIOUS, Verified 11/17/23 09:22 UNRESPONSIVE meperidine Allergy Severe RESPIRATORY Verified 11/17/23 09:22 DISTRESS propranolol Allergy Severe Anaphylaxis Verified 11/17/23 09:22 verapamil Allergy Severe "Cant Verified 11/17/23 09:22 breathe" fexofenadine Allergy Intermediate HIVES Verified 11/17/23 09:22 linezolid Allergy Intermediate SHORTNESS Verified 11/17/23 09:22 OF BREATH propoxyphene Allergy Intermediate Hives Verified 11/17/23 09:22 Sulfa (Sulfonamide Allergy Intermediate SHORTNESS Verified 11/17/23 09:22 Antibiotics) OF BREATH ketorolac Allergy Mild ITCHY Verified 11/17/23 09:22 latex Allergy Mild Itching Verified 11/17/23 09:22 neomycin Allergy Mild ITCHY Verified 11/17/23 09:22 tetracycline Allergy Unknown UNKNOWN Verified 11/17/23 09:22 Home Medications Medication Instructions Recorded Confirmed Type albuterol sulfate 90 mcg/actuation 2 puff inhalation QID PRN 04/13/18 11/24/23 History aerosol inhaler (Ventolin HFA) Shortness Of Breath cetirizine 10 mg tablet (Zyrtec) 10 mg PO QAM 04/13/18 11/24/23 History duloxetine 60 mg capsule,delayed 60 mg PO QAM 04/13/18 11/24/23 History release (Cymbalta) hydroxyzine HCl 50 mg tablet 50 mg PO TID PRN Anxiety 04/13/18 11/24/23 History polyethylene glycol 3350 17 17 g PO BID PRN Constipation 04/13/18 11/24/23 History gram/dose oral powder (Miralax) prochlorperazine maleate 10 mg 10 mg PO Q8H PRN Nausea 04/13/18 11/24/23 History tablet (Compazine) baclofen 20 mg tablet 20 mg PO TID 08/09/19 11/24/23 History cyclobenzaprine 10 mg tablet 10 mg PO BID PRN Muscle Spasm 03/29/20 11/24/23 History onabotulinumtoxinA 100 unit 200 unit IM Q90D 03/29/20 11/24/23 History solution for injection (Botox) ondansetron 4 mg disintegrating 4 mg PO Q6H PRN Nausea And Vomiting 03/29/20 11/24/23 History tablet acetaminophen 500 mg tablet 1,000 mg PO Q6H PRN Pain 09/11/20 11/24/23 History (Tylenol Extra Strength) diazepam 2 mg tablet 2 mg PO TID 09/11/20 11/24/23 History trazodone 100 mg tablet 100 mg PO HS PRN Sleep 08/13/21 11/24/23 History fremanezumab-vfrm 225 mg/1.5 mL 225 mg subcut MONTHLY 02/03/23 11/24/23 History subcutaneous auto-injector (Ajovy) pantoprazole 40 mg granules 40 mg PO BID 02/03/23 11/24/23 History delayed-release for susp in packet (Protonix) ramelteon 8 mg tablet 8 mg PO HS PRN Sleep 02/03/23 11/24/23 History apixaban 5 mg tablet (Eliquis) 5 mg PO BID 04/04/23 11/24/23 History lurasidone 40 mg tablet (Latuda) 40 mg PO PM 04/04/23 11/24/23 History acetaminophen 300 mg-codeine 30 mg 1 tab PO TID PRN Pain 04/21/23 11/24/23 History tablet clotrimazole 1 % topical cream 1 applic topical UD PRN Rash 09/29/23 11/24/23 History famotidine 20 mg tablet 20 mg PO DAILY PRN Acid Reflux 09/29/23 11/24/23 History topiramate 50 mg tablet 50 mg PO BID 09/29/23 11/24/23 History cholecalciferol (vitamin D3) 25 25 mcg PO QAM 10/14/23 11/24/23 History mcg (1,000 unit) tablet (Vitamin D3) cyanocobalamin (vitamin B-12) 1,000 mcg IM UD 10/14/23 11/24/23 History 1,000 mcg/mL injection solution docusate sodium 100 mg capsule 200 mg PO DAILY PRN Constipation 10/14/23 0 11/24/23 History (Colace) duloxetine 30 mg capsule,delayed 30 mg PO QAM 10/14/23 11/24/23 History release (Cymbalta) multivitamin 1 tab PO QAM 10/14/23 11/24/23 History phenazopyridine 200 mg tablet 200 mg PO Q8H PRN pain #10 tabs 10/27/23 11/24/23 Rx (Pyridium) fluconazole 150 mg tablet 150 mg PO Q3D 2 doses #2 tabs 11/17/23 11/24/23 Rx mirabegron 25 mg tablet,extended 25 mg PO DAILY #90 tabs 11/17/23 11/24/23 Rx release 24 hr (Myrbetriq) oxybutynin chloride 5 mg tablet 5 mg PO Q8H PRN bladder spasms #90 11/17/23 11/24/23 Rx tabs tolterodine 2 mg capsule,extended 2 mg PO DAILY #90 caps 11/17/23 11/24/23 Rx release 24 hr oxycodone 5 mg tablet 5 mg PO Q6H PRN severe pain (scale 11/20/23 11/24/23 Rx score 7-10) #10 tabs losartan 25 mg tablet 25 mg PO QAM 11/24/23 11/24/23 History Patient History Medical History Allergy to multiple antibiotics Frequent UTI Radicular low back pain Falls Chronic back pain Abdominal pain Suicidal ideations Insulin resistance History of COVID-19 diagnosed 06/2023--mild symptoms, no symptoms now Morbid obesity with BMI of 40.0-44.9, adult Nausea and vomiting after administration of anesthetic agent NAUSEA ONLY. Degenerative disc disease HARD TIME LYING ON STOMACH FOR EXTENDED PERIODS OF TIME. Surgical History History of hysterectomy H/O gastric bypass History of cystoscopy with exchange of suprapubic cath 04/2023 @ [facility] History of esophagogastroduodenoscopy (EGD) History of foot surgery right--hardware in place History of colonoscopy History of hysterectomy History of laminectomy H/O shoulder surgery S/P surgical manipulation of ankle joint H/O dilation and curettage Hx of eye surgery Hx of spinal fusion Hx of cholecystectomy Family History Father Alive and well Hypertension Mother Alive and well Hypertension Other No family history of adverse response to anesthesia Social History Smoking Status: Never smoker Second Hand Exposure: No; Do You Dip or Chew Tobacco: No; Tobacco Cessation Education Requested by Patient: No Hx Alcohol Use: No Hx Substance Use: No Preferred Language: South Korean Communication Ability: Effective Visual Impairment: No Limitations Manager Intensive Care Required: No Beliefs That Will Affect Care: None marital status: Single Current Living Situation: Alone Current Living Situation Comment: 12 hour a day caregivers. Other Information That Helps Us Care for You: No Feels Safe at Home: Yes Safety Concerns: Feels Safe At This Time Assistive Devices: Bedside Commode, Hospital Bed and Wheelchair Physical Exam Vitals: as above (or see EMR) Exam limited due to constraints of telemedicine Gen/Constitutional: appears at stated age, NAD, nontoxic Head: AT, NC Eyes: sclera anicteric, no conjunctival injection ENT: MMM, trachea midline Card: appears to be well-perfused Resp: not tachypneic, nml effort, symmetric chest rise, no accessory muscle use Derm: no visible diaphoresis, no visible rash, no visible jaundice Results & Data Vital Signs (Past 12 Hours) Vital Signs Temp Pulse Resp BP Pulse Ox O2 Del Method 11/25/23 16:15 Room Air 11/25/23 14:56 36.6 C 82 16 133/73 99 Room Air 11/25/23 07:22 36.6 C 60 16 134/86 98 Room Air Laboratory Results SEE EMR Diagnostic Findings SEE EMR
[2023-11-25] MEDS: diazePAM 2 MG TABLET PO SCH (21:57)
[2023-11-25] MEDS: traZODone HCL 100 MG TAB PO PRN (23:11)
--- OUTSIDE RECORDS SUMMARY | 2023-11-25 23:31 | External Medical Summary | Summary of Care ---
Author Name Unknown Organization [facility] Address [address] [place] [address] Phone [phone] Care Team Providers Care Planning Aide Name Role Phone Sarah Saavedra PA-C Primary Care Provider [phone] Reason for Visit * Reason Comments Acute Encounter Details Date Type Department Care Team ([facility] st Contact Info) Description 11/22/2023 10:20 AM EDT Telemedicine [facility] [address] [facility] [place] [phone] Cydney Moe MD [address] [facility] [place] [address] Yeast vaginitis* Allergies Active Allergy Reactions Criticality Noted Date [...] said itching Latex Itching 09/26/2013 Linezolid 10/23/2014 [place] Other (Please comment) High 12/29/2014 Became unresponsive [...] as of this encounter (statuses as of 11/22/2023) Medications Medication Sig Dispensed Refills Start Date [...] before bedtime. 180 Tablet 2 07/22/2023 Active Naloxone HCl 4 MG/0.1ML Nasal Liquid (Narcan Nasal) Administer 1 spray into 1 nostril for suspected opioid overdose. Seek immediate medical attention. [email or web address]://www.[email or web address] com/watch?[email or web address] AcI 1 Each 3 07/28/2023 Active Additional Information Patient not taking.Reported on 10/06/2023 Cyclobenzaprine HCl 10 MG Oral Tablet (Flexeril) Take 1 Tablet by mouth in the morning and 1 Tablet at noon and 1 Tablet before bedtime. 06/30/2023 Active hydrOXYzine HCl 50 MG Oral Tablet Take 1 Tablet by mouth 3 times a day as needed. 07/29/2023 Active Ipratropium-Albute rol 0.5-2.5 (3) MG/3ML Inhalation [...] BY MOUTH AT BEDTIME DIRECTED 08/29/2023 Active Famotidine 20 MG Oral Tablet (Pepcid)Indication [...] every month. 1.5 mL 3 09/27/2023 Active Ubrelvy 50 MG Oral Tablet (Ubrogepant) Take 1 tablet at onset of migraine and may repeat in 2 hours if needed. Do not exceed 2 tablets in 24 hours. 10 Tablet 5 10/05/2023 Active diazePAM 2 MG Oral Tablet (Valium)Indication s:Spastic diplegic cerebral palsy (HCC) 1 Three times a day, may cause sedation 90 Tablet 1 10/13/2023 Active Linzess 145 MCG Oral Capsule (linaCLOtide)Indic [...] and at bedtime 120 Tablet 10/31/2023 Active OneTouch Verio w/Device KitIndications:Pre diabetes,Hypoglyce jose r Use up to 3 times per day E16.2 1 Kit 11/08/2023 Active Glucose Blood In Vitro Strip (OneTouch Ultra Blue)Indications:P rediabetes,Hypogly cemia E16.2 100 Strip 2 11/08/2023 Active OneTouch Delica Lancets 33G Use up to 3 times daily E16.2 11/08/2023 Active OneTouch Verio In Vitro Strip (Glucose Blood)Indications: Hypoglycemia Use up to 3 times daily E16.2 100 Strip 11 11/08/2023 Active oxyCODONE-Acetamin ophen 5-325 MG Oral Tablet (Percocet)Indicati ons:Bladder spasm Take 1 Tablet by mouth every 8 hours as needed for Pain, Severe. Do not take Tylenol# 3 tablets if taking Oxycodone. 8 Tablet 11/18/2023 Active Ampicillin 500 MG Oral Capsule 11/20/2023 Active Myrbetriq 25 MG Oral Tablet Extended Release 24 Hour Take 1 Tablet by mouth in the morning. 11/17/2023 Active Fluconazole 150 MG Oral Tablet (Diflucan)Indicati ons:Yeast vaginitis Take 1 Tablet by mouth every 3 days. 3 Tablet 11/21/2023 Active Diclofenac Sodium 1 % External Gel (Voltaren)Indicati ons:Chronic pain of left knee Apply 4 g topically to affected area 4 times a day as needed for Pain. 100 g 11/21/2023 Active Losartan Potassium 25 MG Oral Tablet (Cozaar)Indication s:HTN, goal below 140/90 Take 1 Tablet by mouth in the morning. 30 Tablet 5 11/21/2023 Active Acetaminophen-Code ine 300-30 MG Oral TabletIndications: Cervicalgia,Lumbar radicular pain Take 1 Tablet by mouth 3 times a day as needed for Pain, Severe. On Physical Therapy days may take one extra tablet as needed for severe pain. Do not start before November 25, 2023. 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 07/12/2023 Chronic migraine without aur a, not intractable, without status migrainosus 06/26/2023 Morbid obesity with body mass index of 40.0-44.9 in adult 05/24/2023 Asthma in remission 03/21/2023 Vaginal candidiasis 03/02/2023 VRE (vancomycin resistant enterococcus) culture positive 02/27/2023 Localized osteoporosis witho ut current pathological fracture 11/16/2022 Intestinal postoperative nonabsorption 3 Dehydration 05/11/2022 Overview: historical S/P gastric bypass 05/07/2022 Bipolar disorder, curr episo de depressed, severe, w/psychotic features 05/03/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 [place] atypical for ACS. ED workup neg for [...] & Plan: Primary reason for transfer from [facility] rehab. C/o LE weakness and acute/chronic low back pain. Lumbar spine MRI reportedly performed @ [facility], not available for review Pt denies receiving steroid injections D/C IV dilaudid. Resume PO hydromorphone 4mg in setting of subjected acute on chronic low back pain, foot pain and now chest pain Encourage use of tylenol 1000mg or ibuprofen 600mg PRN Chronic suprapubic catheter 05/31/2014 Overview: Placed 05/26 @ [facility] by interventional radiology for urinary retention and [...] injections. Did not help. For discectomy at [facility] 08/31/06. Had subsequent MRSA graft Remove rods [...] 01/23: sees Dr. Mock (spine surgeon) @ [facility] 10/24: lumbar spinal surgery by Dr. Bob Heard 09/11/15: bulging disc with moderate narrowing of neural foramen B L4-5 and R L5- S1 Gastroesophageal reflux disease without esophagi tis 08/15/2003 Overview: EGD 12/23: + small hiatal hernia, no gastritis; increase PPI to protonix 40 mg bid Egd 10/16 mild esophagitis and gastritis. Generic Scoliosis documented as of this encounter (statuses as of 11/22/2023) Resolved Problems Problem Noted Date Diagnosed Date Resolved Date Acute gastritis without hemorrhage 07/09/2023 08/06/2023 Uncomplicated asthma 07/04/2023 024 Depression, unspecified 06/26/202307/15 Migraine 05/24/2023 11/15/2023 UTI (urinary tract infection ) due to [...] her on opioids." [facility] discharge 10/04/15: patient exhibiting behavior of narcotic dependency (requesting escalation of IV dilaudid) Weakness of both upper extremities 08/21/2015 12/12/2019 Generalized weakness 03/01/2015 018 Chronic back pain 03/01/2015 03/03/2022 Paraplegia 02/19/2015 03/25/2016 MEDICATION USE AGREEMENT 06/07/2014 Overview: Pain contract established with [facility] ED 05/26 - give valium 5 [...] 01/04/2023 Overview: Cysto neg 05/21/13. Following with [facility] urology Miri CERVANTES as of 09/26/2013. Resolved s/p laminectomy L4-S1 October 2013 @ [place] [address] Heard. Last Assessment & Plan: [...] wellbutrin 03/27: followed by Mauricio THOMPSON @ [facility] ADVANCE DIRECTIVE INFORMATION 11/17/2004 08/06/2022 Overview: No, Advance Directive brochure offered , patient declined. Allergic rhinitis 11/24/2001 11/30/2018 Overview: zyrtec Fatty liver 08/06/2022 Chronic sinusitis 11/30/2018 Overview: frequent documented as of this encounter (statuses as of 11/22/2023) Immunizations Name Administration Dates Next Due COVID-19 mRNA, LNP-s, No Pre serve, 2-Dose Series ([employer]) 06/25/2021,12/13/2020,11/15/2020 COVID-19, MRNA-LNP, 23-24, P F, 30 MCG/0.3 mL, 12 YRS AND ABOVE, IM ([employer]ON Concierge-Comirnat) 03/29/2023 Covid-19, Mrna, Lnp-s, Pf, B ivalent, 30 Mcg, IM, 12 yrs and above (Pfizer) 06/17/2022 H1N1 2009 Influenza, IM 05/27/2009 Pneumococcal Conjugate Vacci ne, 20-valent ([id number]) 12/15/2021 Pneumococcal Polysaccharide PPV23 (Pneumovax) 05/01/2008 Seasonal [...] as of this encounter Progress Notes * AcCydney alfred MD - 11/22/2023 10:29 AM EDT Images from the original note were not included. History of Present Illness Gricel Mancini is a 38 year old female that presents for No chief complaint on file. Patient is requesting Diflucan refill, ongoing yeast infection, still on antibiotic for UTI. Most recent script sent on 11/21/2023 for 3 tabs Patient is asking about Tylenol 3 refill, advised medication will be due on Tuesday. Patient may use1/2 of oxycodone tab every 6-8 hours as needed for severe pain. Patient reports blood in the urine, she called urologist, awaiting return call from them. Advised to hold Eliquis today and tomorrow. ED if worsening symptoms. Physical Exam There were no vitals filed for this visit. Not done, phone call only I have reviewed the following results: None Assessment and Plan 1. Yeast vaginitis - Diflucan sent 11/21/2023 Wrap-Up As needed After connecting to the patient via telephone, the patient was identified by name and date of . Patient was then informed that this was a telephone call only visit. The patient agreed to participate. Visit Disposition: Routine follow-up Total call duration was 6 minutes. documented in this encounter Plan of Treatment Upcoming Encounters Date Type Department Care Team (Late st Contact Info) Description 11/24/2023 9:00 AM EDT Therapy [facility] [place] [facility] [phone] Ghazal Best LCSW [address] [place] [phone] 11/30/2023 8:40 AM EDT Nurse Only Ancillary 1st Floor, [place] [address] Nurse Harlan Carter 21 [place] [phone] 12/27/2023 9:00 AM EDT Office Visit [facility], [place] [facility] [address] Siomara Cole CRNP [address] [place] [address] 12/29/2023 8:45 AM EDT Hospital Encounter OR [facility], Operating Room, [facility] - 4th Floor [address] [place] [address] Cristiano Alaniz, DO [address] [place] [address] 12/29/2023 8:45 AM EDT - 12/29/2023 9:28 AM EDT Surgery OR [facility], Operating Room, [facility] - 4th Floor [address] [place] [address] Cristiano Alaniz, DO [address] [place] [address] COLONOSCOPY FLEXIBLE PROXIMAL DIAGNOSTIC 01/16/2024 12:00 PM EDT Office Visit [facility] [place] [address] [facility] [place] [phone] Sarah Saavedra PA-C [address] [facility] [place] [address] 02/02/2024 10:40 AM EDT Office Visit [facility] [place] [place] [facility] [place] [address] Traci Ricardo MD [address] [place], [place] [address] [address] 02/08/2024 10:00 AM EDT Telemedicine Rheumatology, [address] [place] [address] Mj Dowell PAAlonso [address] [place] [address] [place] [address] 03/01/2024 11:20 AM EDT Office Visit Neurology [facility] [address] [facility] [place] [address] Maureen Bowie MD [address] [facility] [place] [address] 03/05/2024 9:30 AM EDT [facility] [place] [address] [place] [address] Devon Damon PA-C [address] [place] [address] 06/08/2024 8:00 AM EST Telemedicine Nutrition & Weight Management, [facility] [address] [facility] [place] [address] Martine Mcelroy PA-C [facility] [place] [address] Scheduled Procedures Name Priority Associated Diagnoses Date/Ti me COLONOSCOPY FLEXIBLE PROXIMAL DIAGNOSTIC RLQ abdominal pain Constipation, unspecified constipation type Abnormal CT of the abdomen 12/29/2023 8:45 AM EDT Health Maintenance Due Date Last Done Comments Depression Monitoring 05/24/2024 05/24/2023 DXA Scan 07/28/2024 07/28/2021 Diabetes Screening 11/19/2026 11/20/2023, 0 11/09/2023, 11/06/2023, Additional history exists DTaP,Tdap,and Td Vaccines (8 [...] this encounter Medical Devices Implanted Type Area Driver License Agent Device Identifier Shelf Expiration Date Model / Serial / Lot Plate Small Mtpj - [id number] Implanted:Qty: 1 on 11/15/2017 by Cristobal Calvillo MD at OR [facility] Left: Foot 8359-3855 / / Screw Locking 2.7x14mm - [id number] Implanted:Qty: 1 on 11/15/2017 by Cristobal Calvillo MD at [facility] Left: Foot [id number] / / 2.7 X 16mm Locking Screw Implanted:Qty: 2 on 11/15/2017 by Cristobal Calvillo MD at [facility] Left: Foot [employer] [id number] / / 2.7 X 20 Locking Screw Implanted:Qty: 1 on 11/15/2017 by Cristobal Calvillo MD at OR [facility] Left: Foot [employer] [id number] / / 2.7 X 18mm Locking Screw Implanted:Qty: 1 on 11/15/2017 by Cristobal Calvillo MD at OR [facility] Left: Foot [employer] [id number] / / Screw Locking 2.7x10mm - [id number] Implanted:Qty: 1 on 11/15/2017 by Cristobal Calvillo MD at OR [facility] Left: Foot [employer] [id number] / / 4.0mm X 44 Mm Compression Screw Implanted:Qty: 1 on 10/09/2018 by Bao Hernández MD at OR [facility] Left: Foot AR-8740-44 H / / Description:Implant from set 2.5x30 Compression Screw Implanted:Qty: 1 on 10/09/2018 by Bao Hernández MD at OR [facility] Left: Foot [employer] AR-8725-30 H / / Screw [employer] 2.2txj39zw - [id number] Implanted:Qty: 2 on 02/01/2022 by Bao Hernández MD at OR [facility] Right: Toe [employer] 6775-1004 / / Plate Mtpj - [id number] Implanted:Qty: 1 on 02/01/2022 by Bao Hernández MD at OR [facility] Right: Foot [employer] 8614-5780 / / Screw Locking 2.7x10mm - [id number] Implanted:Qty: 2 on 02/01/2022 by Bao Hernández MD at OR [facility] Right: Foot [employer] 8977-3199 / / Screw Locking 2.7x12mm - [id number] Implanted:Qty: 3 on 02/01/2022 by Bao Hernández MD at OR [facility] Right: Foot [employer] 9129-5742 / / Screw Locking 2.7x14mm - [id number] Implanted:Qty: 1 on 02/01/2022 by Bao Hernández MD at OR [facility] Right: Foot [employer] 0964-5536 / / Screw [employer] 2.3jnd78vl - [id number] Implanted:Qty: 1 on 02/01/2022 by Bao Hernández MD at OR [facility] Right: Toe [employer] 7745-7771 / / Port Implant W/8f Poly Cath - [id number] Implanted:Qty: 1 on 06/02/2022 by Lawrence Cat DO at OR [facility] Right: Chest CR BARD : PERIPHERAL VASCULAR [id number] 05/12/2023 [id number] / / [id number] documented as of this encounter Visit Diagnoses Diagnosis Yeast vaginitis- Primary Candidiasis of vulva and vagina RLQ abdominal pain Abdominal pain, right lower quadrant Constipation, unspecified constipation type Abnormal CT of the abdomen Nonspecific (abnormal) findings on radiological and other examination of abdominal area, including retroperitoneum documented in this encounter Advance Directives Documents on File Type Date Recorded 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
--- OUTSIDE RECORDS SUMMARY | 2023-11-25 23:31 | External Medical Summary | Summary of Care ---
Author Name Unknown Organization [facility] Address [address] [place] [address] Phone [phone] Care Team Providers Care Practical Nursing Instructor Name Role Phone Sarah Saavedra PA-C Primary Care Provider [phone] Reason for Visit * Reason Onset Date Comments TRIAGE 11/21/2023 Encounter Details Date Type Department Care Team (Late st Contact Info) Description 11/21/2023 Telephone Access Center, [place] [address] [facility] *DO NOT REMOVE THIS DEPARTMENT* [place] [address] Services, Scheduling [address] [place] [address] TRIAGE Allergies Active Allergy Reactions Criticality Noted Date [...] said itching Latex Itching 09/26/2013 Linezolid 10/23/2014 [place] Other (Please comment) High 12/29/2014 Became unresponsive [...] opioid overdose. Seek immediate medical attention. [email or web address]://www.youtube. 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 [place] atypical for ACS. ED workup neg for [...] Primary reason for [place] [facility] [place] [facility] [place]. C/o LE weakness and acute/chronic low back pain. Lumbar spine MRI reportedly performed @ [facility], not available for review Pt denies receiving steroid injections D/C IV dilaudid. Resume PO hydromorphone 4mg in setting of subjected acute on chronic low back pain, foot pain and now chest pain Encourage use of tylenol 1000mg or ibuprofen 600mg PRN Chronic suprapubic catheter 05/31/2014 Overview: Placed 05/26 @ [facility] by interventional radiology for urinary retention and [...] disc without myelopathy 03/03/2006 Overview: Rigth L5-S1. [place] injections. Did not help. For discectomy at [facility] 08/31/06. Had subsequent MRSA graft Remove rods [...] Dr. Mock (spine surgeon) @ [facility] 10/24: lumbar spinal surgery by Dr. Bob [...] contraindication to starting her on opioids." [facility] discharge 10/04/15: patient exhibiting behavior of narcotic dependency (requesting escalation of IV dilaudid) Weakness of both upper extremities 08/21/2015 12/12/2019 Generalized weakness 03/01/2015 018 Chronic back pain 03/01/2015 03/03/2022 Paraplegia 02/19/2015 03/25/2016 MEDICATION USE AGREEMENT 06/07/2014 Overview: Pain contract established with [facility] ED 05/26 - give valium 5 [...] Cysto neg 05/21/13. Following with [facility] urology Miri CERVANTES as of 09/26/2013. Resolved s/p laminectomy L4-S1 October 2013 @ [place] [address] Dr. Heard. Last Assessment & Plan: [...] mild persistent 12/08/200910/11 Overview: Per Asthma Taxonomy, Advairgabrielir PFT 04/30/14: normal Acidosis 09/16/2009 02/02/2018 Overview: [...] wellbutrin 03/27: followed by Mauricio THOMPSON @ [facility] ADVANCE DIRECTIVE INFORMATION 11/17/2004 08/06/2022 Overview: No, Advance Directive brochure offered , patient declined. Allergic rhinitis 11/24/2001 11/30/2018 Overview: zyrtec Fatty liver 08/06/2022 Chronic sinusitis 11/30/2018 Overview: frequent documented as of this encounter (statuses as of 11/22/2023) Immunizations Name Administration Dates Next Due COVID-19 mRNA, LNP-s, No Pre serve, 2-Dose Series ([employer]) 06/25/2021,12/13/2020,11/15/2020 COVID-19, MRNA-LNP, 23-24, P F, 30 MCG/0.3 mL, 12 YRS AND ABOVE, IM ([employer]) 03/29/2023 Covid-19, Mrna, Lnp-s, Pf, B ivalent, 30 Mcg, IM, 12 yrs and above (Pfizer) 06/17/2022 H1N1 2009 Influenza, IM 05/27/2009 Pneumococcal Conjugate Vacci ne, 20-valent ([id number]) 12/15/2021 Pneumococcal Polysaccharide PPV23 (Pneumovax) 05/01/2008 Seasonal [...] encounter Miscellaneous Notes * Telephone Encounter - Ronel Rhoades OSA - 11/21/2023 5:57 PM EDT Please triage new referral for return procedure scheduled in January with Devon Damon documented in this encounter Plan of Treatment Upcoming Encounters Date Type Department Care Team (Late st Contact Info) Description 11/24/2023 9:00 AM EDT Therapy Psychology, [address] [place] [phone] Ghazal Best LCSW [facility] [address] 11/30/2023 8:40 AM EDT Nurse Only Ancillary [address]st Floor[address] [address] [place], Nurse Fp 21 [place] [address] 12/27/2023 9:00 AM EDT Office Visit Psychiatry, [address] [place] [address] Cole, BILLY Lazcano 200 [facility], [place] [address] 12/29/2023 8:45 AM EDT Hospital Encounter OR [facility], Operating Room, [facility] - 4th Floor [address] [place] [address] Cristiano Alaniz, DO [address] [place] [address] 12/29/2023 8:45 AM EDT - 12/29/2023 9:28 AM EDT Surgery OR [facility], Operating Room, [facility] - 4th Floor [address] [place] [address] Cristiano Alaniz, DO [address] [place] [address] COLONOSCOPY FLEXIBLE PROXIMAL DIAGNOSTIC 01/16/2024 12:00 PM EDT Office Visit [facility] [address] [facility] [place] [phone] Sarah Saavedra PA-C [address] [facility] [place] [address] 02/02/2024 10:40 AM EDT Office Visit [facility]tr Angelia Ayala [address] [place] [address] Traci Ricadro MD [address] [place] [address] 02/08/2024 10:00 AM EDT Telemedicine Rheumatology, [facility] [address] [place] [address] Mj Dowell PARosaliaC [address] [place] [address] [place] [address] 03/01/2024 11:20 AM EDT Office Visit Neurology [facility] [address] [facility] [place] [address] Maureen Bowie [facility] [address] 03/05/2024 9:30 AM EDT Office Visit [facility]tr Angelia Ayala [address] [place] [address] Devon Damon PA-C [address] [place] [address] 06/08/2024 8:00 AM EST Telemedicine Nutrition & Weight Management, [facility] [address] [facility] [place] [address] Martine Mcelroy PA-C 132 [facility] [place] [address] Scheduled Procedures Name Priority Associated Diagnoses Date/Ti [...] this encounter Medical Devices Implanted Type Area Visual Associate Device Identifier Shelf Expiration Date Model / Serial / Lot Plate Small Mtpj - [id number] Implanted:Qty: 1 on 11/15/2017 by Cristobal Calvillo MD at [place] [facility] Left: Foot / / Screw Locking 2.7x14mm - [id number] Implanted:Qty: 1 on 11/15/2017 by Cristobal Calvillo MD at OR [facility] Left: Foot / / 2.7 X 16mm Locking Screw Implanted:Qty: 2 on 11/15/2017 by Cristobal Calvillo MD at OR [facility] Left: Foot [employer] / / 2.7 X 20 Locking Screw Implanted:Qty: 1 on 11/15/2017 by Cristobal Calvillo MD at OR [facility] Left: Foot [employer] / / 2.7 X 18mm Locking Screw Implanted:Qty: 1 on 11/15/2017 by Cristobal Calvillo MD at OR [facility] Left: Foot [employer] / / Screw Locking 2.7x10mm - [id number] Implanted:Qty: 1 on 11/15/2017 by Cristobal Calvillo MD at OR [facility] Left: Foot [employer] / / 4.0mm X 44 Mm Compression Screw Implanted:Qty: 1 on 10/09/2018 by Bao Hernández MD at OR [facility] Left: Foot AR-8740-44 H / / Description:Implant from set 2.5x30 Compression Screw Implanted:Qty: 1 on 10/09/2018 by Bao Hernández MD at OR [facility] Left: Foot [employer] AR-8725-30 H / / Screw [employer] 2.3wfp78ew - [id number] Implanted:Qty: 2 on 02/01/2022 by Bao Hernández MD at OR [facility] Right: Toe [employer] [id number] / / Plate Mtpj - [id number] Implanted:Qty: 1 on 02/01/2022 by Bao Hernández MD at OR [facility] Right: Foot [employer] [id number] / / Screw Locking 2.7x10mm - [id number] Implanted:Qty: 2 on 02/01/2022 by Bao Hernández MD at OR [facility] Right: Foot [employer] / / Screw Locking 2.7x12mm - [id number] Implanted:Qty: 3 on 02/01/2022 by Bao Hernández MD at OR [facility] Right: Foot [employer] / / Screw Locking 2.7x14mm - [id number] Implanted:Qty: 1 on 02/01/2022 by Bao Hernández MD at OR [facility] Right: Foot [employer] / / Screw [employer] 2.1vht82tc - [id number] Implanted:Qty: 1 on 02/01/2022 by Bao Hernández MD at OR [facility] Right: Toe [employer] [id number] / / Port Implant W/8f Poly Cath - [id number] Implanted:Qty: 1 on 06/02/2022 by Lawrence Cat, DO at OR [facility] Right: Chest CR BARD : PERIPHERAL VASCULAR [id number] 05/12/2023 [id number] / / [id number] documented as of this encounter Advance Directives Documents on File Type Date Recorded Patient Privacy Manager Expl anation POLST 12/03/2020 POLST PENNSYLVA ROSA [...] Relationship Communication Ni Live Grandparent First Alte rnate Health Care Agent Andria Addison Mother Emergency Contact Care Teams Practical Nursing Instructor Relationship Specialty Start Date End Date Sarah Saavedra PA-C [address] [place] [phone] PCP - General Physician [employer] Gener[employer] Inspector 09/06/23 documented as of this encounter
--- OUTSIDE RECORDS SUMMARY | 2023-11-25 23:31 | External Medical Summary | Summary of Care ---
Author Name Unknown Organization [facility] Address [address] [place] [address] Phone [phone] Care Team Providers Care Truck Supervisor Name Role Phone Sarah Saavedra PA-C Primary Care Provider [phone] Reason for Visit * Reason Onset Date Comments Medication Refill 11/21/202311/20 Encounter Details Date Type Department Care Team (Late st Contact Info) Description 11/21/[address] [facility] [address] [place] [address] Cydney Moe MD [address] [place] [address] Medication Refill (11/20) Allergies Active Allergy Reactions Criticality Noted Date [...] said itching Latex Itching 09/26/2013 Linezolid 10/23/2014 [place] Other (Please comment) High 12/29/2014 Became unresponsive [...] before bedtime. 180 Tablet 2 4 Active Naloxone HCl 4 MG/0.1ML Nasal Liquid (Narcan Nasal) Administer 1 spray into 1 nostril for suspected opioid overdose. Seek immediate medical attention. [email or web address] 1 Each 3 4 Active Additional Information Patient not taking.Reported on 10/06/2023 Cyclobenzaprine HCl 10 MG Oral Tablet (Flexeril) Take 1 Tablet by mouth in the morning and 1 Tablet at noon and 1 Tablet before bedtime. 4 Active hydrOXYzine HCl 50 MG Oral Tablet Take 1 Tablet by mouth 3 times a day as needed. 4 Active Ipratropium-Albut marla 0.5-2.5 (3) MG/3ML Inhalation Solution [...] BY MOUTH AT BEDTIME DIRECTED 4 Active Famotidine 20 MG Oral Tablet (Pepcid)Indicatio ns:Gastroesophage al reflux disease without esophagitis Take 1 Tablet by mouth daily as needed for Heartburn. 90 Tablet 1 4 Active Prochlorperazine Maleate 10 MG Oral Tablet (Compazine)Indica tions:Nausea Take 1 Tablet by mouth every 6 hours as needed for Nausea. 30 Tablet 2 4 Active Ajovy 225 MG/1.5ML Subcutaneous Solution Prefilled Syringe (Fremanezumab-vfr m) Inject 1.5 mL under the skin every month. 1.5 mL 3 4 Active Ubrelvy 50 MG Oral Tablet (Ubrogepant) Take 1 tablet at onset of migraine and may repeat in 2 hours if needed. Do not exceed 2 tablets in 24 hours. 10 Tablet 5 4 Active diazePAM 2 MG Oral Tablet (Valium)Indicatio ns:Spastic diplegic cerebral palsy (HCC) 1 Three times a day, may cause sedation 90 Tablet 1 4 Active Linzess 145 MCG Oral Capsule (linaCLOtide)Theresa cations:Constipat ion, unspecified constipation type Take 1 Capsule by mouth daily before breakfast. 30 Capsule 11 4 Active Phenazopyridine HCl 200 MG Oral Tablet (Pyridium) Take 1 Tablet by mouth every 8 hours as needed. For pain. 4 Active Ondansetron HCl 4 MG Oral TabletIndications :Nausea Take 1 Tablet by mouth every 8 hours as needed for Nausea or Vomiting. 30 Tablet 1 4 Active Sucralfate 1 GM Oral Tablet (Carafate)Indicat ions:Epigastric pain Take 1 Tablet by mouth 4 times a day before meals and at bedtime. half an hour before meals and at bedtime 120 Tablet 4 Active OneTouch Verio w/Device KitIndications:Pr ediabetes,Hypogly cemia Use up to 3 times per day E16.2 1 Kit 4 Active Glucose Blood In Vitro Strip (OneTouch Ultra Blue)Indications: Prediabetes,Hypog lycemia E16.2 100 Strip 2 4 Active OneTouch Delica Lancets 33G Use up to 3 times daily E16.2 4 Active OneTouch Verio In Vitro Strip (Glucose Blood)Indications :Hypoglycemia Use up to 3 times daily E16.2 100 Strip 11 4 Active oxyCODONE-Acetami nophen 5-325 MG Oral Tablet (Percocet)Indicat ions:Bladder spasm Take 1 Tablet by mouth every 8 hours as needed for Pain, Severe. Do not take Tylenol# 3 tablets if taking Oxycodone. 8 Tablet 4 Active Ampicillin 500 MG Oral Capsule 4 Active Myrbetriq 25 MG Oral Tablet Extended Release 24 Hour Take 1 Tablet by mouth in the morning. 4 Active Fluconazole 150 MG Oral Tablet (Diflucan)Indicat ions:Yeast vaginitis Take 1 Tablet by mouth every 3 days. 3 Tablet 4 Active Diclofenac Sodium 1 % External Gel (Voltaren)Indicat ions:Chronic pain of left knee Apply 4 g topically to affected area 4 times a day as needed for Pain. 100 g 4 Active Losartan Potassium 25 MG Oral Tablet (Cozaar)Indicatio ns:HTN, goal below 140/90 Take 1 Tablet by mouth in the morning. 30 Tablet 5 4 Active Acetaminophen-Cod eine 300-30 MG Oral TabletIndications :Cervicalgia,Lumb ar radicular pain Take 1 Tablet by mouth 3 times a day as needed for Pain, Severe. On Physical Therapy days may take one extra tablet as needed for severe pain. Do not start before November 25, 2023. 23 Tablet 4 Active Prazosin HCl 1 MG Oral Capsule (Minipress) Take 1 Capsule by mouth in the morning and 1 Capsule before bedtime. 60 Capsule 4 11/21/19 24 Acetaminophen-Cod eine 300-30 MG Oral TabletIndications :Cervicalgia,Lumb ar radicular pain Take 1 Tablet by mouth 3 times a day as needed for Pain, Severe. On Physical Therapy days may take one extra tablet as needed for severe pain. Do not start before November 08, 2023. 23 Tablet 4 11/21/19 24 Discontinue d(Refill) Hospital, Clinic, or Other Facility Administered Medication Ordered Dose Route Frequency Start Date End Date Status vitamin b-12 (Cyanocobalamin) inj 1,000 mcgIndications:S/P gastric bypass 1000 mcg IM [id number] 08/30/2023 06/03/2026 Active documented as of this [...] Referred to cardiology for workup--seen in Jul. [place] atypical for ACS. ED workup neg for [...] & Plan: Primary reason for [facility]/o LE weakness and acute/chronic low back pain. Lumbar spine MRI reportedly performed @ [facility], not available for review Pt denies receiving steroid injections D/C IV dilaudid. Resume PO hydromorphone 4mg in setting of subjected acute on chronic low back pain, foot pain and now chest pain Encourage use of tylenol 1000mg or ibuprofen 600mg PRN Chronic suprapubic catheter 05/31/2014 Overview: Placed 05/[address] [facility] by interventional radiology for urinary [...] injections. Did not help. For discectomy at [facility] 08/31/06. Had subsequent MRSA graft [...] 01/23: sees Dr. Mock (spine surgeon) @ [facility] 10/24: lumbar spinal surgery by [...] a contraindication to starting her on opioids." [facility] discharge 10/04/15: patient exhibiting behavior [...] 01/04/2023 Overview: Cysto neg 05/21/13. Following with [facility] urology Miri CERVANTES as of 09/26/2013. Resolved s/p laminectomy L4-S1 October 2013 @ [facility] [address] Dr. Heard. Last Assessment & Plan: [...] wellbutrin 03/27: followed by Mauricio THOMPSON @ [facility] ADVANCE DIRECTIVE INFORMATION 11/17/2004 08/06/2022 Overview: No, Advance Directive brochure offered , patient declined. Allergic rhinitis 11/24/2001 11/30/2018 Overview: zyrtec Fatty liver 08/06/2022 Chronic sinusitis 11/30/2018 Overview: frequent documented as of this encounter (statuses as of 11/22/2023) Immunizations Name Administration Dates Next Due COVID-19 mRNA, LNP-s, No Pre serve, 2-Dose Series (HeatGear) 06/25/2021,12/13/2020,11/15/2020 COVID-19, MRNA-LNP, 23-24, P F, 30 MCG/0.3 mL, 12 YRS AND ABOVE, IM (PFIZER-Comirnaty) 03/29/2023 Covid-19, Mrna, Lnp-s, Pf, B ivalent, 30 Mcg, IM, 12 yrs and above (HeatGear) 06/17/2022 DT - Diptheria/Tetanus (PEDS) 07/15/1991, 988,02/27/1987 DTWP - Dipth/Tet/Whole Cell Pertussis 1986 DTWP HIB - Dipth/Tet/Whole C ell Pert/HIB 1986 H1N1 2009 Influenza, IM 05/27/2009 Haemophilius B (HIB), unspecified 03/04/1988 Hepatitis B, 0-19 yrs 04/04/1997,10/30/1996,04/2 07/1996 MMR - Measles/Mumps/Rubella Vaccine 08/13/1991,0 10/27/1987 Meningococcal Polysaccharide Vaccine ([place]mune) 03/02/2005 OPV - Polio Virus Vaccine (Oral) 992,03/04/1988,02/27/1987,12/26,1986 PPD 07/24/1987 Pneumococcal Conjugate Vacci ne, 20-valent (Qpagshq25) 12/15/2021 Pneumococcal Polysaccharide PPV23 (Pneumovax) 05/01/2008 Seasonal Influenza, PF, 6 M & above, IM , (FluLaval or Fluzone) 02/22/2023,03/03/2022,03/25/2021,03/18,02/15/2019,03/29/2018 Seasonal Influenza, Quadriva lent, No Preserve, IM 04/01/2016 Seasonal Influenza, Quadriva lent, No Preserve, Peds 04/27/2017 Seasonal Influenza, Split, I IV3, With Preserve, Inj 02/24/2015,03/05/2014,04/17/2013,04/05,03/26/2009,04/16/2008,04/26/2007 ,03/22/2006 TD - Tetanus/Diptheria (ADULT) 03/03/1999 TDAP (age 10 and older)(Boostrix) 04/23/2019 TDAP, Age 7 and older, IM (Adacel) 03/26/2009 Varicella Vaccine (Chicken Pox) 12/21/1994 documented [...] Telephone Encounter - Yeyo Oliveros LPN - 11/21/2023 12:53 PM EDT Attempted to contact pt to relay below message. No answer, left message requesting a return call to [phone]. * Telephone Encounter - Cydney Moe MD - 11/21/2023 12:10 PM EDT Called patient re: pain medication refill. She reports getting 10 Oxycodone tablets from [facility] yesterday (urology), confirmed with the pharmacist "to take one tablet every 6 hours for severe pain 7/10 only". Last Tylenol 3 refill was on 11/08/23 one week supply. Patient was in the hospital 11/11- 11/15/23, discharged on 11/16/23 She had Oxycodone # 6 on 11/16/23 at discharge and Oxycodone/APAP # 8 on 11/18/23 from us. Next script for Tylenol 3 can be filled on 11/25/2023, sent. Please notify the patient. documented in this encounter Plan of Treatment Upcoming Encounters Date Type Department Care Team (Late st Contact Info) Description 11/24/2023 9:00 AM EDT Therapy [facility] [place] [facility] [phone] Ghazal Best LCSW [address] [place] [address] 11/30/2023 8:40 AM EDT Nurse Only Ancillary 1st Floor, [place] [address] [place] [address] [place] [address] [place] [address] 12/27/2023 9:00 AM EDT Office Visit Psychiatry, [place] [address] [phone] Cole, BILLY [facility]cano [facility] [address] 12/29/2023 8:45 AM EDT Hospital Encounter OR GL, Operating Room, [facility] - 4th Floor [address] [facility] [place] [phone] Cristiano Alaniz, DO [address] [place] [address] 12/29/2023 8:45 AM EDT - 12/29/2023 9:28 AM EDT Surgery OR GL, Operating Room, [facility] - 4th Floor [address] [place] [address] Cristiano Alaniz, DO [address] [place] [address] COLONOSCOPY FLEXIBLE PROXIMAL DIAGNOSTIC 01/16/2024 12:00 PM EDT Office Visit [facility] [address] [place] [id number] Sarah Saavedra PA-C [address] [place] [address] 02/02/2024 10:40 AM EDT Office Visit [facility] [address] [address] Traci Ricardo MD [address] [place] [address] 02/08/2024 10:00 AM EDT Telemedicine Rheumatology, [facility] [address] [place] [address] Mj Dowell PARosaliaC [address] [place] [address] [place] [address] 03/01/2024 11:20 AM EDT Office Visit Neurology Bernadette Ambriz [place] [address] [facility] [place] [address] Maureen Bowie MD [address] [facility] [place] [address] 03/05/2024 9:30 AM EDT Office Visit Interventional [facility] Ctr [facility] [address] [place] [address] Devon Damon PAAlonso [address] [place] [address] 06/08/2024 8:00 AM EST Telemedicine Nutrition & Weight Management, [facility] [address] [place] [address] Martine Mcelroy PA-C [address] [place] [address] Scheduled Procedures Name Priority Associated Diagnoses Date/Ti [...] this encounter Medical Devices Implanted Type Area Wildlife Photographer Device Identifier Shelf Expiration Date Model / Serial / Lot Plate Small Mtpj - [id number] Implanted:Qty: 1 on 11/15/2017 by Cristobal Calvillo MD at OR [facility] Left: Foot [id number] / / Screw Locking 2.7x14mm - [id number] Implanted:Qty: 1 on 11/15/2017 by Cristobal Calvillo MD at OR [facility] Left: Foot / / 2.7 X 16mm Locking Screw Implanted:Qty: 2 on 11/15/2017 by Cristobal Calvillo MD at OR [facility] Left: Foot [employer] [id number] / / 2.7 X 20 Locking Screw Implanted:Qty: 1 on 11/15/2017 by Cristobal Calvillo MD at OR [facility] Left: Foot [employer] [id number] / / 2.7 X 18mm Locking Screw Implanted:Qty: 1 on 11/15/2017 by Cristobal Calvillo MD at OR [facility] Left: Foot [employer] / / Screw Locking 2.7x10mm - [id number] Implanted:Qty: 1 on 11/15/2017 by Cristobal Calvillo [...] AR-8725-30 H / / Screw [employer] 2.2pyc93pk - [id number] Implanted:Qty: 2 on 02/01/2022 by Bao Hernández MD at OR [facility] Right: Toe [employer] [id number] / / Plate Mtpj - [id number] Implanted:Qty: 1 on 02/01/2022 by Bao Hernández MD at OR [facility] Right: Foot [employer] [id number] / / Screw Locking 2.7x10mm - [id number] Implanted:Qty: 2 on 02/01/2022 by Bao Hernández MD at OR [facility] Right: Foot [employer] [id number] / / Screw Locking 2.7x12mm - [id number] Implanted:Qty: 3 on 02/01/2022 by Bao Hernández MD at OR [facility] Right: Foot [employer] / / Screw Locking 2.7x14mm - [id number] Implanted:Qty: 1 on 02/01/2022 by Bao Hernández MD at OR [facility] Right: Foot [employer] / / Screw [employer] 2.8lwt21gp - [id number] Implanted:Qty: 1 on 02/01/2022 by Bao Hernández MD at OR [facility] Right: Toe [employer] [id number] / / Port Implant W/8f Poly Cath - [id number] Implanted:Qty: 1 on 06/02/2022 by Lawrence Cat DO at OR [facility] Right: Chest CR BARD : PERIPHERAL VASCULAR [id number] 05/12/2023 [id number] / / [id number] documented as of this encounter Visit Diagnoses Diagnosis Cervicalgia Lumbar radicular pain Thoracic or lumbosacral neuritis or radiculitis, unspecified RLQ abdominal pain Abdominal pain, right lower quadrant Constipation, unspecified constipation type Abnormal CT of the abdomen Nonspecific (abnormal) findings on radiological and other examination of abdominal area, including retroperitoneum documented in this encounter Advance Directives Documents on File Type Date Recorded Patient Cable Tender Expl anation JOHN 12/03/2020 KUSUM LEE ORDERS [...] Agent Relationship Communication Ni Live Grandparent First [facility] Health Care Agent Andria Addison Mother Emergency Contact Care Teams Truck Supervisor Relationship Specialty Start Date End Date Sarah Saavedra PA-C [address] [place] [phone] PCP - General Physician Ip Architect 09/06/23 documented as of this encounter
[2023-11-26] MEDS: SODIUM CHLORIDE 0.9% 1,000 ML IV SCH (00:16)
[2023-11-26] MEDS: diphenhydrAMINE Capsule 25 MG CAP PO SCH (00:17)
[2023-11-26] MEDS: ACETAMINOPHEN 325 MG TAB PO SCH (00:17)
[2023-11-26 06:14] LABS: Basophils # (auto) 0.06 K/uL (0.00-0.20); Basophils % (auto) 0.9 %; Eosinophils # (auto) 0.12 K/uL (0.00-0.50); Eosinophils % (auto) 1.8 %; Hematocrit (blood only) 32.3 % (37.0-47.0); Hemoglobin 10.3 g/dl (12.0-16.0); Immature Granulocytes # (auto) 0.06 K/uL (0.01-0.20); Immature Granulocytes % (auto) 0.9 %; Lymphocytes # (auto) 2.18 K/uL (1.20-3.40); Mean Corpuscular Hemoglobin 28.4 pg (25.0-34.0); Mean Corpuscular Hgb Conc 31.9 g/dL (32.0-36.0); Mean Platelet Volume 9.4 fL (9.4-12.4); Monocytes # (auto) 0.47 K/uL (0.11-0.59); Monocytes % (auto) 6.9 %; Neutrophils # (auto) 3.93 K/uL (1.40-6.50); Neutrophils % (auto) 57.5 %; Platelet Count 327 K/uL (130-400); RDW Coefficient of Variation 14.3 % (11.5-14.5); RDW Standard Deviation 46.3 fL (36.4-46.3); Red Blood Count 3.63 M/uL (4.20-5.40); White Blood Count 6.82 K/ul (4.8-10.8)
[2023-11-26 06:17] LABS: Albumin Level 3.2 gm/dl (3.4-5.0); BUN Creatinine Ratio 12.9 (10-20); Bilirubin Direct 0.1 mg/dl (0-0.2); Bilirubin,Total 0.3 mg/dl (0.2-1.0); Calcium 8.2 mg/dl (8.6-10.3); Creatinine Clr Calc Pharmacy 97.7 ml/min; Est GFR (African American) 101.5 ml/min; Est GFR (Non-African American) 87.5 ml/min; Phosphorus 3.9 mg/dl (2.5-4.9); Potassium 3.4 mmol/L (3.5-5.1); Total Protein 5.8 gm/dl (6.0-8.3)
[2023-11-26] MEDS: HEPARIN 100 UNIT/ML 5ML FLUSH FLUSH PRN (07:47)
[2023-11-26] MEDS: POTASSIUM CHLORIDE CRTAB 20 MEQ TABCR PO SCH (09:17)
[2023-11-26] MEDS ORDERED: PROCHLORPERAZINE 5 MG/ML 2 ML VIAL IV STA (09:42)
--- NOTE | 2023-11-26 09:48 | Hospitalist Progress Note ---
Date of Service November 26, 2023 Assessment & Plan (1) Catheter-associated urinary tract infection: (2) Chronic suprapubic catheter: (3) Cerebral palsy: (4) Chronic pain: (5) Yeast UTI: (6) Tanna glabrata infection: (7) Migraine: Plan Patient with acute on chronic abdominal/pelvic discomfort with Tanna UTI, question if symptomatic Reviewed infectious disease consultation, discontinue oral antifungals, often times single dose treatment with Amphotericin is adequate. Continue to monitor off of antifungals and anti-infectives Encourage activity Replace potassium aggressively orally Encourage activity Spent some time explaining to the patient that I suspect that her abdominal discomfort may not be entirely from her bladder, she has chronic pain and multiple etiologies for abdominal discomfort. Repeat migraine cocktail which was effective for her yesterday. Continue to monitor cultures, instructed patient to anticipate discharge tomorrow if she remains improved. Admission and Anticipated Discharge Date Admission Date: November 24, 2023 Subjective Patient had good result from migraine cocktail yesterday. However recurrent migraine today. States that she gets these is on a daily basis at home as well. Still with some abdominal discomfort Physical Exam Physical Exam: Constitutional: Alert, sitting in chair, nontoxic HEENT: Mucous membranes moist. Lungs: Normal respirations CV: Regular rate Abdomen: Soft, suprapubic catheter, urine clear in Pedraza bag Extremities: No significant edema Neuro: Chronic deficits, nothing acute Psych: Cooperative, normal mood Results & Data Results & Data Vital Signs (Past 12 Hours) Vital Signs Temp Pulse Pulse Resp BP Pulse Ox O2 Del Method 11/26/23 07:15 36.4 C L 65 16 132/77 97 Room Air 11/25/23 22:30 36.4 C L 68 14 114/73 94 Room Air Diagnostic Findings [facility] Potassium 3.4 (1) Catheter-associated urinary tract infection Indwelling urinary catheter type: cystostomy catheter Encounter type: subsequent encounter Qualified Code(s): T83.510D - Infection and inflammatory reaction due to cystostomy catheter, subsequent encounter; N39.0 - Urinary tract infection, site not specified (3) Cerebral palsy Cerebral palsy type: unspecified type Qualified Code(s): G80.9 - Cerebral palsy, unspecified (4) Chronic pain Chronic pain type: other chronic pain Qualified Code(s): G89.29 - Other chronic pain
[2023-11-26] MEDS: KETOROLAC TROMETHAMINE 15 MG/ML VIAL IV STA (10:12)
[2023-11-26] MEDS: diphenhydrAMINE 50 MG/ML VIAL IV STA (10:14)
[2023-11-26] MEDS: PROCHLORPERAZINE 10 MG in SYRINGE 8 ML IV STA (10:16)
[2023-11-27 06:22] LABS: BUN Creatinine Ratio 16.5 (10-20); Calcium 8.7 mg/dl (8.6-10.3); Creatinine Clr Calc Pharmacy 80.6 ml/min; Est GFR (African American) 80.4 ml/min; Est GFR (Non-African American) 69.4 ml/min; Potassium 3.8 mmol/L (3.5-5.1)
--- NOTE | 2023-11-27 09:17 | Discharge Summary ---
Discharge Summary Date of Service November 27, 2023 Principal Dx & Hospital Course #1 = Principal Diagnosis (1) Catheter-associated urinary tract infection: (2) Chronic suprapubic catheter: (3) Cerebral palsy: (4) Chronic pain: (5) Yeast UTI: (6) Tanna glabrata infection: (7) Migraine: Plan Patient was cared for in the hospital. She presented to the emergency room with known Tanna glabrata and her urine presenting for possible treatment. She was aggressively treated with Amphotericin IV. She was seen by infectious disease the following day. After their evaluation recommended discontinuing Amphotericin, reporting that often times single dose treatment is effective for Tanna urinary tract infection. With this treatment the patient's abdominal symptoms has significantly improved. She did require treatment for migraines x 2 while here in the hospital. This is not unusual for her and she is on chronic migraine therapy at home. Patient also has multiple other etiologies for possible abdominal pain. Reportedly irritable bowel syndrome, status post gastric bypass, chronic bowel issues associated with her cerebral palsy. 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 This very well could be the source of her urine and she may be colonized as well. On the day of discharge headaches completely resolved. Abdominal pain is resolved. She completed a course of treatment for Tanna urinary tract infection here in the hospital. She will be discharged home to continue her usual home care and follow-up with her outpatient providers. 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 History obtained from patient and associated chart review. Patient was seen in the ED on Tuesday (11/21) for evaluation of hematuria and suprapubic/bladder pain. CTAP performed at that time was unremarkable. Urine showed hematuria but no signs of any infection. Urine culture from that visit ultimately grew Tanna glabrata. She was going to be treated in the outpatient setting, but ultimately was still experiencing suprapubic/bladder pain and was feeling pretty rundown thus prompting her return to the ED for treatment. Today, patient is no longer having any hematuria. Still having this suprapubic/bladder pain. Has not been able to get this pain under control. Has noticed some pus-like discharge from her suprapubic catheter insertion site with an associated foul smelling odor. No bleeding from the insertion site. No recent fever or chills. Has had some ongoing nausea, but no episodes of vomiting. Maybe feeling a little bit more tired than usual. Denies any diarrhea, headaches, chest pain or SOB. Did start taking losartan since her most recent discharge. Patient was recently admitted here at [facility] 11/09-11/15 with a complicated UTI and was ultimately treated with IV daptomycin. Admission Exam Per Admitting Provider See H&P Discharge Exam Constitutional: Alert, nontoxic HEENT: Mucous membranes moist. Lungs: Clear to auscultation, decreased, no wheezes rales or rhonchi CV: S1-S2, regular Abdomen: Soft, nontender, nondistended Extremities: No significant edema : Suprapubic cath in place, urine clear Neuro: Chronic deficits associated with her cerebral palsy Psych: Cooperative, normal mood Updated Medication List Medication Instructions Recorded Confirmed Type albuterol sulfate 90 mcg/actuation 2 puff inhalation QID PRN 04/13/18 11/24/23 History aerosol inhaler (Ventolin HFA) Shortness Of Breath cetirizine 10 mg tablet (Zyrtec) 10 mg PO QAM 04/13/18 11/24/23 History duloxetine 60 mg capsule,delayed 60 mg PO QAM 04/13/18 11/24/23 History release (Cymbalta) hydroxyzine HCl 50 mg tablet 50 mg PO TID PRN Anxiety 04/13/18 11/24/23 History polyethylene glycol 3350 17 17 g PO BID PRN Constipation 04/13/18 11/24/23 History gram/dose oral powder (Miralax) prochlorperazine maleate 10 mg 10 mg PO Q8H PRN Nausea 04/13/18 11/24/23 History tablet (Compazine) baclofen 20 mg tablet 20 mg PO TID 08/09/19 11/24/23 History cyclobenzaprine 10 mg tablet 10 mg PO BID PRN Muscle Spasm 03/29/20 11/24/23 History onabotulinumtoxinA 100 unit 200 unit IM Q90D 03/29/20 11/24/23 History solution for injection (Botox) ondansetron 4 mg disintegrating 4 mg PO Q6H PRN Nausea And Vomiting 03/29/20 11/24/23 History tablet acetaminophen 500 mg tablet 1,000 mg PO Q6H PRN Pain 09/11/20 11/24/23 History (Tylenol Extra Strength) diazepam 2 mg tablet 2 mg PO TID 09/11/20 11/24/23 History trazodone 100 mg tablet 100 mg PO HS PRN Sleep 08/13/21 11/24/23 History fremanezumab-vfrm 225 mg/1.5 mL 225 mg subcut MONTHLY 02/03/23 11/24/23 History subcutaneous auto-injector (Ajovy) pantoprazole 40 mg granules 40 mg PO BID 02/03/23 11/24/23 History delayed-release for susp in packet (Protonix) ramelteon 8 mg tablet 8 mg PO HS PRN Sleep 02/03/23 11/24/23 History apixaban 5 mg tablet (Eliquis) 5 mg PO BID 04/04/23 11/24/23 History lurasidone 40 mg tablet (Latuda) 40 mg PO PM 04/04/23 11/24/23 History acetaminophen 300 mg-codeine 30 mg 1 tab PO TID PRN Pain 04/21/23 11/24/23 History tablet clotrimazole 1 % topical cream 1 applic topical UD PRN Rash 09/29/23 11/24/23 History famotidine 20 mg tablet 20 mg PO DAILY PRN Acid Reflux 09/29/23 11/24/23 History topiramate 50 mg tablet 50 mg PO BID 09/29/23 11/24/23 History cholecalciferol (vitamin D3) 25 25 mcg PO QAM 10/14/23 11/24/23 History mcg (1,000 unit) tablet (Vitamin D3) cyanocobalamin (vitamin B-12) 1,000 mcg IM UD 10/14/23 11/24/23 History 1,000 mcg/mL injection solution docusate sodium 100 mg capsule 200 mg PO DAILY PRN Constipation 10/14/23 11/24/23 History (Colace) duloxetine 30 mg capsule,delayed 30 mg PO QAM 10/14/23 11/24/23 History release (Cymbalta) multivitamin 1 tab PO QAM 10/14/23 11/24/23 History phenazopyridine 200 mg tablet 200 mg PO Q8H PRN pain #10 tabs 10/27/23 11/24/23 Rx (Pyridium) fluconazole 150 mg tablet 150 mg PO Q3D 2 doses #2 tabs 11/17/23 11/24/23 Rx mirabegron 25 mg tablet,extended 25 mg PO DAILY #90 tabs 11/17/23 11/24/23 Rx release 24 hr (Myrbetriq) oxybutynin chloride 5 mg tablet 5 mg PO Q8H PRN bladder spasms #90 11/17/23 11/24/23 Rx tabs tolterodine 2 mg capsule,extended 2 mg PO DAILY #90 caps 11/17/23 11/24/23 Rx release 24 hr oxycodone 5 mg tablet 5 mg PO Q6H PRN severe pain (scale 11/20/23 11/24/23 Rx score 7-10) #10 tabs losartan 25 mg tablet 25 mg PO QAM 11/24/23 11/24/23 History Hospital Stay Data Consultations 11/24/23 19:40 ED Decision to Admit Stat 11/24/23 20:42 Consult Urology Routine 11/24/23 20:42 Consult Infectious Diseases Routine Diagnostic Imagining Performed Reviewed imaging, laboratory and diagnostic studies. Pertinent findings as below. Repeat urine culture Only showing pinpoint growth, Blood cultures no growth to date Potassium 3.8, improved WBCs 6.8 improved Pending Results Patient Have Any Pending Studies at Discharge: No Discharge Instructions Given to Patient (Per Discharging Provider) Continue to keep prior scheduled appointments Total Time Total Time Spent Total Time Spent (In Minutes): 25
== END 2023-11-27 12:30 | disposition home or self-care (01) | DRG 699 ==
LOC: ED 18:08 → 3E 20:14 → SUATTDRO 20:14 → 3E 22:45
DX: G47.00 Insomnia, unspecified; G80.9 Cerebral palsy, unspecified; G89.29 Other chronic pain; Z88.2 Allergy status to sulfonamides; B37.49 Other urogenital candidiasis; Z86.711 Personal history of pulmonary embolism; Z88.5 Allergy status to narcotic agent; G43.909 Migraine, unspecified, not intractable, without status migrainosus; F31.9 Bipolar disorder, unspecified; K58.0 Irritable bowel syndrome with diarrhea; K58.1 Irritable bowel syndrome with constipation; J30.2 Other seasonal allergic rhinitis; Z86.718 Personal history of other venous thrombosis and embolism; T83.518A Infection and inflammatory reaction due to other urinary catheter, initial encounter; R31.0 Gross hematuria; Y84.6 Urinary catheterization as the cause of abnormal reaction of the patient, or of later complication, without mention of misadventure at the time of the procedure; Z88.8 Allergy status to other drugs, medicaments and biological substances; N31.9 Neuromuscular dysfunction of bladder, unspecified; M19.90 Unspecified osteoarthritis, unspecified site; Z88.1 Allergy status to other antibiotic agents; E66.01 Morbid (severe) obesity due to excess calories; F43.10 Post-traumatic stress disorder, unspecified; Z98.84 Bariatric surgery status; Z79.899 Other long term (current) drug therapy; G82.21 Paraplegia, complete; Z91.040 Latex allergy status; Z79.01 Long term (current) use of anticoagulants; Q05.9 Spina bifida, unspecified; Z68.41 Body mass index [BMI] 40.0-44.9, adult; F41.1 Generalized anxiety disorder

== ENCOUNTER 2024-08-22 13:18 | Inpatient (IN) ==
--- NOTE | 2024-08-22 13:35 | Emergency Department Note ---
Impression & Plan Recurrent UTI, Chronic suprapubic catheter, Constipation, Right flank pain ED Provider Note CHIEF COMPLAINT: UTI, right flank pain HISTORY OF PRESENTING ILLNESS: This 39-year-old female patient presents to the emergency department with her friend for evaluation of a UTI and right flank pain. The patient was seen in the ER on 08/19/24 and diagnosed with UTI. She was started on Macrobid. The patient states she received a phone call from the ER today to come back in for IV antibiotics based on the urine culture results. The patient states she has also not had any improvement of her symptoms. She is having increasing right flank pain and decreased urine output. The patient also states that she is having some bladder spasms. She had a low-grade fever yesterday, but no fever today. Her suprapubic Pedraza catheter is due to be changed on 08/27/2024. She also states that she had an EGD done on Tuesday. Her throat is sore and initially she thought it was just from the EGD, but now she has nasal congestion as well and is concerned that she is getting sick. She denies any trouble swallowing, just the pain in her throat. Denies any cough. No chest pain or SOB. Nausea, but no vomiting. She is on Eliquis for history of DVT and PE. CT scan of the abdomen pelvis without contrast on 08/19/2024 shows the suprapubic catheter in normal position without fluid along the tract. Incompletely distended urinary bladder which is grossly unremarkable. Moderate amount of stool in the right colon and rectum without obstruction. No other acute abnormalities. White blood cell count was normal and renal functions were normal. No concerning abnormalities on laboratory studies other than the UTI. Her urine culture grew Enterococcus faecalis. Per pharmacy note, the patient was to switch to amoxicillin. However, the patient refused the amoxicillin due to history of GI intolerance to amoxicillin. The patient also declined Augmentin for treatment. Therefore, the patient was advised to return to the ER for IV antibiotics since she refused the minimal p.o. options available based on sensitivity. REVIEW OF SYSTEMS: See HPI for pertinent positives and pertinent negatives. ALLERGIES: See below MEDICATIONS: See below PAST MEDICAL HISTORY: See below PHYSICAL EXAM: VITALS: Vitals are noted on the nurse's note and reviewed by myself. GENERAL: Non toxic, in no acute distress, non-diaphoretic. SKIN: Capillary refill <2 sec. EYES: PERRLA. EOMI. Conjunctivae without injection, sclerae without icterus. NOSE: Patent without discharge. MOUTH: Mucous membranes moist. Uvula midline. Airway patent. NECK: Supple without nuchal rigidity. HEART: Regular rate and rhythm without murmurs gallops or rubs. LUNGS: Clear to auscultation bilaterally without wheezes, rales or rhonchi. No retractions or accessory muscle use. ABDOMEN: Suprapubic catheter in place without signs of infection surrounding the catheter. Positive bowel sounds x 4. Normal tympanic percussion. Soft, mildly tender to palpation in the right flank and right side of the abdomen. No masses or hepatosplenomegaly. No sign negative. No CVA tenderness. No guarding, rigidity, or rebound tenderness. No focal RLQ or LLQ tenderness. MUSCULOSKELETAL: No gross musculoskeletal defects. NEURO: Patient was alert and oriented. No focal neurological deficits. DIFFERENTIAL DIAGNOSIS: Differential diagnosis includes hepatitis, pancreatitis, cholecystitis, cholelithiasis, appendicitis, kidney stone, pyelonephritis, UTI, gastritis, gastroenteritis, mesenteric adenitis, obstruction, constipation, hernia, abdominal abscess, perforation, diverticulitis, IBD, ischemic colitis, abdominal aortic aneurysm, , ectopic , ovarian cyst, ovarian torsion, acute salpingitis, or others. ED COURSE AND MEDICAL DECISION MAKING: HISTORY FROM INDEPENDENT HISTORIAN: Additional history obtained from the patient's friend MEDICATIONS GIVEN: 1 L normal saline solution bolus. Tylenol 1000 mg IV. Zofran 4 mg IV. Morphine 4 mg IV. Benadryl 50 mg IV and Solu-Medrol 40 mg IV for pretreatment for the CT scan. Ampicillin 2 g IV. MONITOR: Continuous hospital monitor: Order was placed for continuous hospital monitor. Patient was placed on the hospital monitor and continuous pulse ox. Patient was noted to be in normal sinus rhythm at an initial rate of 80 bpm per my interpretation. INTERPRETATION OF LABS: I interpreted the labs with full lab results as below in the lab section of this note. Laboratory results pertinent to the emergent complaint are discussed in the MDM section below. The patient was advised to follow up with their PCP and/or specialist(s) for further outpatient monitoring and management of any abnormal results. INTERPRETATION OF IMAGING: Imaging studies were interpreted by myself and read by radiology as per the imaging section of this note. The patient was advised to follow up with their PCP and/or specialist(s) for further outpatient management of any non-emergent abnormal findings. CT scan of the abdomen and pelvis with IV contrast shows no acute process within the abdomen or pelvis. No evidence of pyelonephritis, urinary calculi, or hydronephrosis. The suprapubic catheter is in place. There is a moderate to large amount of stool within the colon. EXTERNAL RECORDS REVIEWED: I reviewed the patient's previous ER visit note and culture report. CHRONIC MEDICAL/SOCIAL CONDITIONS AFFECTING CARE: Indwelling suprapubic Pedraza catheter CONSULTATIONS: ED pharmacist, on-call hospitalist MDM SUMMARY: I examined the patient. The patient was seen in the ER on 08/19/2024 and diagnosed with a UTI. She was started on Macrobid. CT scan of the abdomen and pelvis without contrast did not reveal any acute abnormalities. The patient's urine culture came back today resistant to the Macrobid. The ED pharmacist wanted to switch the patient to either amoxicillin or Augmentin that was sensitive to the Enterococcus faecalis that grew on her culture. However, the patient states that she is unable to tolerate the amoxicillin and Augmentin due to GI upset. She does not have a true allergy to these medications. Due to the multiple oral medications the culture was resistant to and the patient's continued/worsening right flank pain, the patient was advised to come to the ER for IV antibiotics. An IV lock was placed and labs were drawn. The patient was given 1 L normal saline solution bolus, Tylenol 1000 mg IV, and Zofran 4 mg IV. The patient complained of continued pain. Since there was concern for possible pyelonephritis, the patient was given a dose of morphine 4 mg IV pending the results of the CT scan. The patient was given Benadryl 50 mg IV and Solu-Medrol 40 mg IV for pretreatment for the IV contrast which she states has worked well for her in the past. White blood cell count normal at 10.50. Hemoglobin normal at 12.5. Platelet count normal at 298. Coags were normal. CMP was normal. Lactate and procalcitonin normal. Lipase normal. Magnesium normal. Serum hCG negative. Urinalysis with trace leukocyte Estrace, 6-10 white blood cells, and 2+ bacteria. Urine culture and blood cultures are pending. Group A strep PCR negative. Respiratory BioFire negative. CT scan of the abdomen and pelvis with IV contrast shows no acute process within the abdomen or pelvis. No evidence of pyelonephritis, urinary calculi, or hydronephrosis. The suprapubic catheter is in place. There is a moderate to large amount of stool within the colon. The patient asked for additional pain medication after the results of the CT scan. However, I explained to the patient that her pain may be secondary to her moderate to large amount of stool within the colon and that narcotic pain medication would make her symptoms worse. I also advised the patient that I would not recommend Toradol or NSAIDs due to her history of itchiness with Toradol and being on Eliquis. I advised the patient that if she would be admitted, a bowel regimen may be of most benefit for her pain and discomfort. I had a meaningful discussion about this patient with Dr. Lomax who agrees with my assessment and the treatment plan. After speaking with the ED pharmacist at length, the only oral medications the culture is sensitive to that would penetrate the urine appropriately to treat the UTI are amoxicillin and Augmentin. I asked the patient again if she would take amoxicillin or Augmentin as an outpatient even with Zofran or other medications to help the GI side effects. The patient again refused to take the amoxicillin and Augmentin since she states that she has uncontrolled vomiting whenever she takes these medications. Therefore, the patient will require admission for IV antibiotics. The patient had already been given a dose of ampicillin 2 g IV. I spoke with the on-call hospitalist who agreed to admit the patient for further evaluation and treatment. Please refer to their dictation for further details. The patient's care was transferred in stable condition. DIAGNOSIS: Recurrent UTI Chronic suprapubic catheter Constipation Right flank pain Past Med/Surg History Problem List Right flank pain (Acute) Constipation (Acute) Chronic pain syndrome Spastic diplegic cerebral palsy Bipolar disorder PTSD (post-traumatic stress disorder) JOSE (generalized anxiety disorder) Recurrent UTI (Acute) UTI (urinary tract infection) (Acute) Suprapubic pain Catheter-associated urinary tract infection History of migraine headaches Bladder spasms (Acute) Chronic suprapubic catheter (Chronic) Neurogenic bladder (Acute) History of pulmonary embolism History of DVT (deep vein thrombosis) Chronic pain Bipolar depression Ambulatory dysfunction Urinary retention Muscle spasm of both lower legs GERD (gastroesophageal reflux disease) Depression Anxiety disorder Paralysis of both lower limbs Asthma Hypertension Cerebral palsy Medical History COPD (chronic obstructive pulmonary disease) Spina bifida per chart review Muscle spasticity Gastric ulcer following with [facility]; had EGD 06/04/24 and scheduled for f/u in 3months Anemia History of chest pain [facility] ED visit 06/17/24; acute cardiopulmonary cause r/o; pt anemic; told to f/u with PCP and Cardio Urinary retention Paralysis of both lower limbs 2/2 Cerebral palsy; pt states has limited sensation and strength in b/l legs; states that she can stand with 1 person assist to pivot to chair/toilet but cannot walk; uses WC Depression Anxiety disorder Morbid obesity Bladder spasms Hematuria Hx MRSA infection (2007) Urine 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) Approximately 02/2023 (urine) Hx of migraines History of pulmonary embolism (2019) Approximately 2019 post-op - no issues since Taking Eliquis History of deep vein thrombosis (2019) x2 Taking Eliquis Asthma GERD (gastroesophageal reflux disease) 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; uses walker; needs 1 person assist to stand and pivot Hypertension Neurogenic bladder Chronic suprapubic catheter in place Bipolar depression Frequent UTI frequent s/p suprapubic catheter placement; currently with UTI and on ampicillin Radicular low back pain Chronic back pain Insulin resistance States blood sugar will drop when NPO, requests earlier OR time for all procedures History of COVID-19 (06/2023) mild symptoms, resolved Degenerative disc disease Surgical History History of transurethral resection of bladder tumor (TURBT) (2022) Postoperative nausea +hx PONV Chronic suprapubic catheter mutliple changes in OR History of hysterectomy H/O gastric bypass History of cystoscopy multiple with suprapubic catheter exchange; most recent 01/2024: MAC without issue History of esophagogastroduodenoscopy (EGD) History of foot surgery R/L (+ hardware) History of colonoscopy most recent 12/29/23 History of laminectomy H/O shoulder surgery right S/P surgical manipulation of ankle joint H/O dilation and curettage Hx of eye surgery Hx of spinal fusion Hx of cholecystectomy Family History Father Alive and well Hypertension Mother Alive and well Hypertension Other No family history of adverse response to anesthesia Social History Smoking Status: Never smoker Second Hand Exposure: No; Do You Dip or Chew Tobacco: No; Hx Alcohol Use: No Hx Substance Use: No Preferred Language: Surinamese Communication Ability: Effective Visual Impairment: No Limitations Electronic Maintenance Supervisor Required: No Beliefs That Will Affect Care: None marital status: Single Current Living Situation: Alone Current Living Situation Comment: Has home health Other Information That Helps Us Care for You: No Feels Safe at Home: Yes Safety Concerns: Feels Safe At This Time Assistive Devices: Hospital Bed, Mechanical Lift, Walker and Wheelchair Allergies Allergies Allergy/AdvReac Type Severity Reaction Status Date / Time aripiprazole [From Abilify] Allergy Severe "Couldn't Verified 08/19/24 17:06 breathe" aztreonam Allergy Severe Dyspnea Verified 08/19/24 17:06 Beta-Blockers Allergy Severe "Couldn't Verified 08/19/24 17:06 (Beta-Adrenergic Bloc breathe" Gadolinium-Containing Allergy Severe Swelling Verified 08/19/24 17:06 Contrast Medi of Lip/Tongue/Throat hydrocodone Allergy Severe Hives Verified 08/19/24 17:06 lithium Allergy Severe Unconscious, Verified 08/19/24 17:06 unresponsive meperidine Allergy Severe Respiratory Verified 08/19/24 17:06 distress propranolol Allergy Severe Anaphylaxis Verified 08/19/24 17:06 verapamil Allergy Severe "Cant Verified 08/19/24 17:06 breathe" fexofenadine Allergy Intermediate Hives Verified 08/19/24 17:06 linezolid Allergy Intermediate Dyspnea Verified 08/19/24 17:06 propoxyphene Allergy Intermediate Hives Verified 08/19/24 17:06 Sulfa (Sulfonamide Allergy Intermediate Dyspnea Verified 08/19/24 17:06 Antibiotics) ketorolac Allergy Mild Itchy Verified 08/19/24 17:06 latex Allergy Mild contact Verified 08/19/24 17:06 dermatitis neomycin Allergy Mild Itchy Verified 08/19/24 17:06 tetracycline Allergy Unknown Unknown Verified 08/19/24 17:06 Iodinated Contrast Media Allergy Itching Verified 08/19/24 17:06 Home Meds Home Medications Medication Instructions Recorded Confirmed albuterol sulfate 90 mcg/actuation 2 puff inhalation QID PRN 04/13/18 08/22/24 aerosol inhaler (Ventolin HFA) Shortness Of Breath cetirizine 10 mg tablet (Zyrtec) 10 mg PO QAM 04/13/18 08/22/24 hydroxyzine HCl 50 mg tablet 50 mg PO TID PRN Anxiety 04/13/18 08/22/24 polyethylene glycol 3350 17 17 g PO BID PRN Constipation 04/13/18 08/22/24 gram/dose oral powder (Miralax) prochlorperazine maleate 10 mg 10 mg PO Q8H PRN Nausea 04/13/18 08/22/24 tablet (Compazine) baclofen 20 mg tablet 20 mg PO TID 08/09/19 08/22/24 cyclobenzaprine 10 mg tablet 10 mg PO BID PRN Muscle Spasm 03/29/20 08/22/24 onabotulinumtoxinA 100 unit 200 unit IM Q90D 03/29/20 08/22/24 solution for injection (Botox) acetaminophen 500 mg tablet 1,000 mg PO Q6H PRN Pain 09/11/20 08/22/24 (Tylenol Extra Strength) apixaban 5 mg tablet (Eliquis) 5 mg PO BID 04/04/23 08/22/24 lurasidone 40 mg tablet (Latuda) 40 mg PO PM 04/04/23 08/22/24 famotidine 20 mg tablet 20 mg PO DAILY PRN Acid Reflux 09/29/23 08/22/24 topiramate 50 mg tablet 50 mg PO BID 09/29/23 08/22/24 cholecalciferol (vitamin D3) 25 25 mcg PO QAM 10/14/23 08/22/24 mcg (1,000 unit) tablet (Vitamin D3) cyanocobalamin (vitamin B-12) 1,000 mcg IM Q3M 10/14/23 08/22/24 1,000 mcg/mL injection solution docusate sodium 100 mg capsule 200 mg PO DAILY PRN Constipation 10/14/23 08/22/24 (Colace) losartan 25 mg tablet 25 mg PO QAM 11/24/23 08/22/24 buspirone 7.5 mg tablet 7.5 mg PO BID 06/17/24 08/22/24 fluoxetine 60 mg tablet 60 mg PO QAM 06/17/24 08/22/24 galcanezumab-gnlm 120 mg/mL 120 mg subcut MONTHLY 06/17/24 08/22/24 subcutaneous syringe (Emgality) ondansetron HCl 4 mg tablet 4 mg PO Q8H PRN n/v 06/17/24 08/22/24 sucralfate 1 gram tablet 1 g PO QID 06/17/24 08/22/24 zolmitriptan 5 mg tablet 5 mg PO DIRECTED PRN Migraine 06/17/24 08/22/24 Headache tolterodine 2 mg capsule,extended 2 mg PO QAM 06/20/24 08/22/24 release 24 hr mirabegron 50 mg tablet,extended 50 mg PO QAM 08/05/24 08/22/24 release 24 hr (Myrbetriq) multivitamin with minerals-folic 1 tab PO QAM 08/05/24 08/22/24 acid 200 mcg chewable tablet (Multivitamin Gummies) omeprazole 20 mg capsule,delayed 20 mg PO BID 08/05/24 08/22/24 release dicyclomine 10 mg capsule 10 mg PO QID PRN Indigestion/Abd 08/19/24 08/22/24 pain fluticasone propionate 50 2 spray intranasal QAM 08/19/24 08/22/24 mcg/actuation nasal spray,suspension loperamide 2 mg capsule 2 mg PO QID PRN Diarrhea 08/19/24 08/22/24 oxycodone 5 mg tablet 5 mg PO Q4H PRN Severe Pain (Scale 08/19/24 08/22/24 Score 7-10) prazosin 1 mg capsule 2 mg PO HS 08/19/24 08/22/24 trazodone 100 mg tablet 100 mg PO HS 08/19/24 08/22/24 Previous Rx's Medication Instructions Recorded oxybutynin chloride 5 mg tablet 5 mg PO Q8H PRN bladder spasms #90 05/09/24 tabs phenazopyridine 200 mg tablet 200 mg PO Q8H PRN pain #10 tabs 07/05/24 (Pyridium) nitrofurantoin 100 mg PO BID 7 days #14 caps 08/19/24 monohydrate/macrocrystals 100 mg capsule (Macrobid) Results & Data (ED) Vital Signs Vital Signs - 24 hr 08/22/24 16:09 08/22/24 16:33 08/22/24 16:48 Pulse Rate 94 H 83 89 Pulse Rate [Apical] Pulse Rhythm [Apical] Pulse Strength [Apical] Respiratory Rate 20 15 16 Respiratory Effort / Characteristics Respiratory Depth Respiratory Pattern Blood Pressure Blood Pressure Mean 08/22/24 16:57 08/22/24 17:00 08/22/24 17:00 Pulse Rate 85 94 H Pulse Rate [Apical] 88 Pulse Rhythm [Apical] Regular Pulse Strength [Apical] Normal Respiratory Rate 13 19 24 Respiratory Effort / Characteristics Non-Labored Spontaneous Respiratory Depth Normal Respiratory Pattern Regular Blood Pressure Blood Pressure Mean 08/22/24 17:27 08/22/24 17:36 08/22/24 17:39 Pulse Rate 96 H 92 H 94 H Pulse Rate [Apical] Pulse Rhythm [Apical] Pulse Strength [Apical] Respiratory Rate 20 17 17 Respiratory Effort / Characteristics Respiratory Depth Respiratory Pattern Blood Pressure Blood Pressure Mean 08/22/24 18:00 08/22/24 18:00 08/22/24 18:00 Pulse Rate Pulse Rate [Apical] Pulse Rhythm [Apical] Pulse Strength [Apical] Respiratory Rate Respiratory Effort / Characteristics Respiratory Depth Respiratory Pattern Blood Pressure 103/77 103/77 103/77 Blood Pressure Mean 83 83 83 08/22/24 18:00 08/22/24 18:00 08/22/24 18:00 Pulse Rate Pulse Rate [Apical] Pulse Rhythm [Apical] Pulse Strength [Apical] Respiratory Rate Respiratory Effort / Characteristics Respiratory Depth Respiratory Pattern Blood Pressure 103/77 103/77 103/77 Blood Pressure Mean 83 83 83 08/22/24 18:00 08/22/24 18:00 08/22/24 18:00 Pulse Rate Pulse Rate [Apical] Pulse Rhythm [Apical] Pulse Strength [Apical] Respiratory Rate Respiratory Effort / Characteristics Respiratory Depth Respiratory Pattern Blood Pressure 103/77 103/77 103/77 Blood Pressure Mean 83 83 83 08/22/24 18:00 08/22/24 18:00 08/22/24 18:00 Pulse Rate Pulse Rate [Apical] Pulse Rhythm [Apical] Pulse Strength [Apical] Respiratory Rate Respiratory Effort / Characteristics Respiratory Depth Respiratory Pattern Blood Pressure 103/77 103/77 103/77 Blood Pressure Mean 83 83 83 08/22/24 18:00 08/22/24 18:00 08/22/24 18:00 Pulse Rate Pulse Rate [Apical] Pulse Rhythm [Apical] Pulse Strength [Apical] Respiratory Rate Respiratory Effort / Characteristics Respiratory Depth Respiratory Pattern Blood Pressure 103 Blood Pressure Mean 83 83 83 08/22/24 18:03 Pulse Rate 91 H Pulse Rate [Apical] Pulse Rhythm [Apical] Pulse Strength [Apical] Respiratory Rate 17 Respiratory Effort / Characteristics Respiratory Depth Respiratory Pattern Blood Pressure Blood Pressure Mean Laboratory Data 08/23/24 07:22 08/23/24 07:22 Lab Results 08/22/24 08/22/24 08/22/24 Range/Units 14:06 14:24 14:32 WBC 10.50 (4.8-10.8) K/ul RBC 4.75 (4.20-5.40) M/uL Hgb 12.5 (12.0-16.0) g/dl Hct 39.4 (37.0-47.0) % MCV 82.9 (80.0-100.0) fL MCH 26.3 (25.0-34.0) pg MCHC 31.7 L (32.0-36.0) g/dL RDW Std Deviation 69.8 H (36.4-46.3) fL RDW Coeff of Jerald 23.9 H (11.5-14.5) % Plt Count 298 (130-400) K/uL MPV 10.1 (9.4-12.4) fL Immature Gran % (Auto) 0.6 % Neut % (Auto) 65.4 % Lymph % (Auto) 24.0 % Jewell % (Auto) 7.0 % Eos % (Auto) 2.0 % Baso % (Auto) 1.0 % Neut # (Auto) 6.88 H (1.40-6.50) K/uL Lymph # (Auto) 2.52 (1.20-3.40) K/uL Jewell # (Auto) 0.73 H (0.11-0.59) K/uL Eos # (Auto) 0.21 (0.00-0.50) K/uL Baso # (Auto) 0.10 (0.00-0.20) K/uL Immature Gran # (Auto) 0.06 (0.01-0.20) K/uL Anisocytosis Present PT 10.9 (9.0-12.0) Seconds INR 1.0 (0.9-1.1) APTT 29 (21-31) Seconds PTT Ratio 1.1 Sodium 138 (136-145) mmol/L Potassium 3.6 (3.5-5.1) mmol/L Chloride 107 (98-107) mmol/L Carbon Dioxide 22 (21-32) mmol/L Anion Gap 9 (3-11) BUN 12 (6-23) mg/dl Creatinine 0.68 (0.6-1.2) mg/dl Est Cr Clr Drug Dosing 117.1 ml/min eGFR 114.25 BUN/Creatinine Ratio 17.6 (10-20) Glucose 86 (70-99(Fasting)) mg/dl Lactate 1.3 (0.4-2.0) mmol/L Calcium 9.5 (8.6-10.3) mg/dl Magnesium 1.9 (1.7-2.4) mg/dl Total Bilirubin 0.3 (0.2-1.0) mg/dl AST 14 (13-39) U/L ALT 12 (7-52) U/L Alkaline Phosphatase 71 (34-104) U/L Total Protein 7.1 (6.0-8.3) gm/dl Albumin 4.3 (3.4-5.0) gm/dl Globulin 2.8 (2.5-4.0) gm/dl Albumin/Globulin Ratio 1.5 (0.9-2) Lipase 40 (11-82) U/L Procalcitonin 0.03 (0-0.5) ng/ml HCG, Qual Negative (Negative) Urine Color Urine Appearance (Clear) Urine pH (4.5-7.5) Ur Specific [place] (1.000-1.030) Urine Protein (Negative) Urine Glucose (UA) (Negative) Urine Ketones (Negative) Urine Blood (Negative) Urine Nitrite (Negative) Urine Bilirubin (Negative) Urine Urobilinogen (Negative) Ur Leukocyte Esterase (Negative) Urine WBC (Auto) (0-5) /hpf Urine RBC (Auto) (0-2) /hpf U Hyaline Cast (Auto) (0-2) /lpf U Epithel Cells (Auto) (0-2) /hpf Urine Bacteria (Auto) (None Seen) Adenovirus (PCR) Not Detected (NotDetected) B. pertussis DNA (PCR) Not Detected (NotDetected) B.parapertussis DNA PCR Not Detected (NotDetected) C. pneumoniae DNA (PCR) Not Detected (NotDetected) Coronavirus OC43 (PCR) Not Detected (NotDetected) Coronavirus HKU1 (PCR) Not Detected (NotDetected) Coronavirus 229E (PCR) Not Detected (NotDetected) SARS-CoV-2 (PCR) Not Detected (NotDetected) Coronavirus NL63 (PCR) Not Detected (NotDetected) Human Metapneumovir PCR Not Detected (NotDetected) Influenza Type A (PCR) Not Detected (NotDetected) Influenza Type B (PCR) Not Detected (NotDetected) M. pneumoniae (PCR) Not Detected (NotDetected) Parainfluenza 1 (PCR) Not Detected (NotDetected) Parainfluenza 2 (PCR) Not Detected (NotDetected) Parainfluenza 3 (PCR) Not Detected (NotDetected) Parainfluenza 4 (PCR) Not Detected (NotDetected) RSV (PCR) Not Detected (NotDetected) Entero/Rhino (PCR) Not Detected (NotDetected) Group A Strep (PCR) NOT DETECTED (NotDetected) 08/22/24 Range/Units 15:07 WBC (4.8-10.8) K/ul RBC (4.20-5.40) M/uL Hgb (12.0-16.0) g/dl Hct (37.0-47.0) % MCV (80.0-100.0) fL MCH (25.0-34.0) pg MCHC (32.0-36.0) g/dL RDW Std Deviation (36.4-46.3) fL RDW Coeff of Jerald (11.5-14.5) % Plt Count (130-400) K/uL MPV (9.4-12.4) fL Immature Gran % (Auto) % Neut % (Auto) % Lymph % (Auto) % Jewell % (Auto) % Eos % (Auto) % Baso % (Auto) % Neut # (Auto) (1.40-6.50) K/uL Lymph # (Auto) (1.20-3.40) K/uL Jewell # (Auto) (0.11-0.59) K/uL Eos # (Auto) (0.00-0.50) K/uL Baso # (Auto) (0.00-0.20) K/uL Immature Gran # (Auto) (0.01-0.20) K/uL Anisocytosis PT (9.0-12.0) Seconds INR (0.9-1.1) APTT (21-31) Seconds PTT Ratio Sodium (136-145) mmol/L Potassium (3.5-5.1) mmol/L Chloride (98-107) mmol/L Carbon Dioxide (21-32) mmol/L Anion Gap (3-11) BUN (6-23) mg/dl Creatinine (0.6-1.2) mg/dl Est Cr Clr Drug Dosing ml/min eGFR BUN/Creatinine Ratio (10-20) Glucose (70-99(Fasting)) mg/dl Lactate (0.4-2.0) mmol/L Calcium (8.6-10.3) mg/dl Magnesium (1.7-2.4) mg/dl Total Bilirubin (0.2-1.0) mg/dl AST (13-39) U/L ALT (7-52) U/L Alkaline Phosphatase (34-104) U/L Total Protein (6.0-8.3) gm/dl Albumin (3.4-5.0) gm/dl Globulin (2.5-4.0) gm/dl Albumin/Globulin Ratio (0.9-2) Lipase (11-82) U/L Procalcitonin (0-0.5) ng/ml HCG, Qual (Negative) Urine Color Dark Yellow Urine Appearance Clear (Clear) Urine pH 6.0 (4.5-7.5) Ur Specific [place] 1.012 (1.000-1.030) Urine Protein Negative (Negative) Urine Glucose (UA) Negative (Negative) Urine Ketones Negative (Negative) Urine Blood Negative (Negative) Urine Nitrite Negative (Negative) Urine Bilirubin Negative (Negative) Urine Urobilinogen Negative (Negative) Ur Leukocyte Esterase Trace H (Negative) Urine WBC (Auto) 6-10 H (0-5) /hpf Urine RBC (Auto) 0-2 (0-2) /hpf U Hyaline Cast (Auto) 0-2 (0-2) /lpf U Epithel Cells (Auto) 0-2 (0-2) /hpf Urine Bacteria (Auto) 2+ H (None Seen) Adenovirus (PCR) (NotDetected) B. pertussis DNA (PCR) (NotDetected) B.parapertussis DNA PCR (NotDetected) C. pneumoniae DNA (PCR) (NotDetected) Coronavirus OC43 (PCR) (NotDetected) Coronavirus HKU1 (PCR) (NotDetected) Coronavirus 229E (PCR) (NotDetected) SARS-CoV-2 (PCR) (NotDetected) Coronavirus NL63 (PCR) (NotDetected) Human Metapneumovir PCR (NotDetected) Influenza Type A (PCR) (NotDetected) Influenza Type B (PCR) (NotDetected) M. pneumoniae (PCR) (NotDetected) Parainfluenza 1 (PCR) (NotDetected) Parainfluenza 2 (PCR) (NotDetected) Parainfluenza 3 (PCR) (NotDetected) Parainfluenza 4 (PCR) (NotDetected) RSV (PCR) (NotDetected) Entero/Rhino (PCR) (NotDetected) Group A Strep (PCR) (NotDetected) Administered Medications Apixaban (Apixaban 5 Mg Tablet) 5 mg PO BID [facility] Stop: 09/21/24 20:59 Last Admin: 08/23/24 08:03 Dose: 5 mg Documented By: Admin: 08/22/24 21:40 Dose: 5 mg Documented By: ADRIÁN Baclofen (Baclofen 20 Mg Tab) 20 mg PO TID [facility] Stop: 09/21/24 20:59 Last Admin: 08/23/24 13:33 Dose: 20 mg Documented By: Admin: 08/23/24 08:03 Dose: 20 mg Documented By: Admin: 08/22/24 21:40 Dose: 20 mg Documented By: ADRIÁN Buspirone HCl (Buspirone 7.5 Mg Tab) 7.5 mg PO BID [facility] Stop: 09/21/24 20:59 Last Admin: 08/23/24 08:03 Dose: 7.5 mg Documented By: Admin: 08/22/24 21:37 Dose: 7.5 mg Documented By: DARIÁN Cetirizine HCl (Cetirizine Hcl 10 Mg Tablet) 10 mg PO QAM [facility] Stop: 09/22/24 08:59 Last Admin: 08/23/24 08:03 Dose: 10 mg Documented By: JULIANNA Docusate Sodium (Docusate Sodium 100 Mg Cap) 100 mg PO BID [facility] Stop: 09/21/24 20:59 Last Admin: 08/23/24 08:04 Dose: Not Given Documented By: Admin: 08/22/24 22:06 Dose: 100 mg Documented By: ADRIÁN Fluoxetine HCl (Fluoxetine Hcl 20 Mg Cap) [facility] [place] [facility]: 09/22/24 08:59 Last Admin: 08/23/24 08:03 Dose: 60 mg Documented By: JULIANNA Fluticasone Propionate (Fluticasone Propionate Na Spr 16 Gm Btl) 2 sprays [facility] [place] Stop: 09/22/24 08:59 Last Admin: 08/23/24 08:02 Dose: 2 sprays Documented By: JULIANNA Ampicillin Sodium 2,000 mg/ (Sodium Chloride) 100 mls @ 200 mls/hr IV Q6H [facility] Stop: 09/01/24 20:59 Last Infusion: 08/23/24 15:43 Dose: Infused Documented By: [facility] Admin: 08/23/24 14:49 Dose: 200 mls/hr Documented By: Infusion: 08/23/24 08:50 Dose: Infused Documented By: Admin: 08/23/24 08:10 Dose: 200 mls/hr Documented By: Infusion: 08/23/24 02:55 Dose: Infused Documented By: Admin: 08/23/24 02:25 Dose: 200 mls/hr Documented By: Infusion: 08/22/24 22:15 Dose: Infused Documented By: Admin: 08/22/24 21:41 Dose: 200 mls/hr Documented By: ADRIÁN Lactobacillus Acidophilus (Advanced Probiotic 625 Mg Capsule) 1,250 mg PO DAILY [facility] Stop: 09/22/24 08:59 Last Admin: 08/23/24 08:02 Dose: 1,250 mg Documented By: JULIANNA Losartan Potassium (Losartan Potassium 25 Mg Tab) [facility] [place] Stop: 09/22/24 08:59 Last Admin: 08/23/24 08:03 Dose: 25 mg Documented By: JULIANNA Lurasidone HCl (Lurasidone Hcl 20 Mg Tab) 40 mg PO DAILYBD [facility] Stop: 09/21/24 20:59 Last Admin: 08/22/24 21:37 Dose: 40 mg Documented By: ADRIÁN Multivitamins/Minerals (Cerovite Adv Formula Tab) 1 tab [facility] [place] Stop: 09/22/24 08:59 Last Admin: 08/23/24 08:08 Dose: Not Given Documented By: JULIANNA Ondansetron HCl (Ondansetron Inj 2 Mg/Ml 2 Ml Vial) 4 mg IV Q6H PRN PRN Reason: Nausea Stop: 09/21/24 20:28 Last Admin: 08/23/24 10:23 Dose: 4 mg Documented By: JULIANNA Oxybutynin Chloride (Oxybutynin Chloride Xl 5 Mg Tabcr) 5 mg PO [facility] Stop: 09/22/24 08:59 Last Admin: 08/23/24 10:23 Dose: 5 mg Documented By: JULIANNA Oxybutynin Chloride (Oxybutynin Chloride 5 Mg Tab) 5 mg PO Q8H PRN PRN Reason: bladder spasms Stop: 09/21/24 18:36 Last Admin: 08/23/24 00:58 Dose: 5 mg Documented By: ADRIÁN Oxycodone HCl (Oxycodone Hcl Ir 5 Mg Tab (Immediate Release)) 5 mg PO Q4H PRN PRN Reason: Severe Pain (Scale Score 7-10) Stop: 09/05/24 18:36 Last Admin: 08/23/24 13:56 Dose: 5 mg Documented By: Admin: 08/23/24 09:21 Dose: 5 mg Documented By: Admin: 08/23/24 05:11 Dose: 5 mg Documented By: Admin: 08/22/24 23:55 Dose: 5 mg Documented By: Admin: 08/22/24 19:43 Dose: 5 mg Documented By: ADRIÁN Pantoprazole Sodium (Pantoprazole 40 Mg Tab) 40 mg PO BID [facility] Stop: 09/21/24 20:59 Last Admin: 08/23/24 08:03 Dose: 40 mg Documented By: Admin: 08/22/24 21:40 Dose: 40 mg Documented By: ADRIÁN Polyethylene Glycol (Polyethylene (Miralax) 17 Gm Pack) 17 gm PO DAILY [facility] Stop: 09/21/24 20:28 Last Admin: 08/23/24 08:04 Dose: Not Given Documented By: Admin: 08/22/24 21:48 Dose: 17 gm Documented By: ADRIÁN Prazosin HCl (Prazosin Hcl 1 Mg Cap) 2 mg PO HS [facility] Stop: 09/21/24 20:59 Last Admin: 08/22/24 21:39 Dose: 2 mg Documented By: ADRIÁN Sucralfate (Sucralfate 1 Gm Tab) 1 gm PO QID [facility] Stop: 09/21/24 20:59 Last Admin: 08/23/24 12:04 Dose: Not Given Documented By: Admin: 08/23/24 08:02 Dose: Not Given Documented By: Admin: 08/22/24 21:40 Dose: Not Given Documented By: ADRIÁN Sumatriptan Succinate (Sumatriptan Succinate 25 Mg Tab) 25 mg PO BID PRN PRN Reason: Migraine Headache Stop: 09/22/24 13:01 Last Admin: 08/23/24 13:57 Dose: 25 mg Documented By: JULIANNA Topiramate (Topiramate 50 Mg Tab) 50 mg PO BID [facility] Stop: 09/21/24 20:59 Last Admin: 08/23/24 08:03 Dose: 50 mg Documented By: Admin: 08/22/24 21:37 Dose: 50 mg Documented By: ADRIÁN Trazodone HCl (Trazodone Hcl 100 Mg Tab) 100 mg PO HS [facility] Stop: 09/21/24 20:59 Last Admin: 08/22/24 21:38 Dose: 100 mg Documented By: ADRIÁN Vibegron (Vibegron 75 Mg Tab) 75 mg PO DAILY [facility] Stop: 09/22/24 08:59 Last Admin: 08/23/24 08:03 Dose: 75 mg Documented By: JULIANNA Vitamin D (Cholecalciferol 25 Mcg (1000 Units) Tab) 25 mcg PO QAM [facility] Stop: 09/22/24 08:59 Last Admin: 08/23/24 08:03 Dose: 25 mcg Documented By: JULIANNA Discontinued Medications Diphenhydramine HCl (Diphenhydramine 50 Mg/Ml Vial) 50 mg IV ONE ONE Stop: 08/22/24 13:42 Last Admin: 08/22/24 14:32 Dose: 50 mg Documented By: SHARIF Diphenhydramine HCl (Diphenhydramine 50 Mg/Ml Vial) 25 mg IV NOW STA Stop: 08/22/24 21:05 Last Admin: 08/22/24 21:52 Dose: 25 mg Documented By: ADRIÁN Sodium Chloride (Nss) 1,000 mls @ 999 mls/hr IV .Q1H1M ONE Stop: 08/22/24 14:41 Last Infusion: 08/22/24 15:30 Dose: Infused Documented By: Admin: 08/22/24 14:28 Dose: 999 mls/hr Documented By: SHARIF Acetaminophen (Ofirmev) 1,000 mg in 100 mls @ 400 mls/hr IV NOW STA Stop: 08/22/24 13:58 Last Infusion: 08/22/24 14:43 Dose: Infused Documented By: Admin: 08/22/24 14:28 Dose: 400 mls/hr Documented By: SHARIF Ampicillin Sodium 2,000 mg/ (Sodium Chloride) 100 mls @ 200 mls/hr IV NOW STA Stop: 08/22/24 14:16 Last Infusion: 08/22/24 15:21 Dose: Infused Documented By: Admin: 08/22/24 14:49 Dose: 200 mls/hr Documented By: SHARIF Promethazine HCl (Phenergan) 12.5 mg in 50.5 mls @ 202 mls/hr IV NOW STA Stop: 08/22/24 21:18 Last Infusion: 08/22/24 22:10 Dose: Infused Documented By: Admin: 08/22/24 21:52 Dose: 202 mls/hr Documented By: ADRIÁN Ioversol (Optiray 320 100ml) 94 ml IV ONCE ONE Stop: 08/22/24 15:24 Last Admin: 08/22/24 15:24 Dose: 94 ml Documented By: APARNA Ketorolac Tromethamine (Ketorolac Tromethamine 15 Mg/Ml Vial) 10 mg IV NOW STA Stop: 08/22/24 21:05 Last Admin: 08/22/24 21:52 Dose: 10 mg Documented By: ADRIÁN Methylprednisolone (Methylprednisolone 125 Mg/2 Ml Vial) 40 mg IV NOW ONE Stop: 08/22/24 13:42 Last Admin: 08/22/24 14:31 Dose: 40 mg Documented By: SHARIF Morphine Sulfate (Morphine Sulfate 4 Mg/Ml 1 Ml Carp\\Vial) 4 mg IV NOW STA Stop: 08/22/24 15:03 Last Admin: 08/22/24 15:04 Dose: 4 mg Documented By: SHARIF Ondansetron HCl (Ondansetron Inj 2 Mg/Ml 2 Ml Vial) 4 mg IV NOW STA Stop: 08/22/24 13:45 Last Admin: 08/22/24 14:32 Dose: 4 mg Documented By: SHARIF Imaging Data Radiologist's Impression: Abdomen/Pelvis CT 08/22/24 13:42 CT OF THE ABDOMEN AND PELVIS WITH CONTRAST CLINICAL HISTORY: Right flank pain, UTI, eval pyelo COMPARISON STUDY: CT of the abdomen and pelvis August 16, 2024. TECHNIQUE: Following IV administration of 94 mL of Optiray, axial images of the abdomen and pelvis were obtained from the lung bases to the proximal femurs. Images were reviewed in the axial, sagittal, and coronal planes. IV contrast was administered without complication. Automated exposure control was utilized for the study. A dose lowering technique was utilized adhering to the principles of ALARA. CT DOSE: 1410.83 mGy.cm FINDINGS: No pneumatosis, free air or portal venous gas is present. There is no biliary ductal dilatation status post cholecystectomy. Spleen, adrenal glands and kidneys are unremarkable with the exception of a 1.1 cm fat-containing left renal lesion consistent with an angiomyolipoma. Nephrograms are symmetric. There is no hydronephrosis. There are no urinary calculi. A suprapubic catheter is in place. There is trace gas within the bladder. There is no evidence for a bowel obstruction. There is a moderate to large amount stool within the colon. A small amount of stool within the rectum is present. There is no lymphadenopathy. There are no fluid collections. Major vasculature is patent. Postoperative is within the lumbar spine are unchanged. Status post Mark-en-Y gastric bypass. IMPRESSION: 1. No acute process within the abdomen or pelvis. 2. No CT evidence for acute pyelonephritis. No urinary calculi or hydronephrosis. Suprapubic catheter in place. 3. Moderate to large amount of stool within the colon. ACT 112: Negative or not required by law. Electronically signed by: Aaron Hernandez M.D. 08/22/2024 3:46 PM Discharge Plan Visit Data Chief Complaint: Urinary Symptoms Stated Complaint: IV ABTIBIOTICS,UTI, ABDOMINAL PAIN, RT FLANK ED Provider: Isaiah Lomax ED Midlevel Provider: Noni Murray Discharge Problem: Recurrent UTI, Chronic suprapubic catheter, Constipation, Right flank pain Patient Disposition: Admitted As Inpatient Condition: Good Discharge Instructions Interventions: ED Discharge Assessment Last Done: 08/22/24 20:30 Addendum August 23, 2024 16:05 I was consulted by the Advanced Practice Provider and was substantively involved in the patient's visit.This includes aspects of the HPI, MDM, diagnostic interpretations, and disposition/plan. I discussed the case with the HESHAM and agree with the findings and plan as documented in HESHAM Trevor's note. Discharge Problem: Constipation Qualifiers: Constipation type: unspecified constipation type Qualified Code(s): K59.00 - Constipation, unspecified
[2024-08-22] MEDS: ACETAMINOPHEN 1,000 MG/100 ML VIAL IV STA (14:28)
[2024-08-22] MEDS: SODIUM CHLORIDE 0.9% 1,000 ML IV ONE (14:28)
[2024-08-22] MEDS: methylPREDNISolone 125 MG/2 ML VIAL IV ONE (14:31)
[2024-08-22] MEDS: diphenhydrAMINE 50 MG/ML VIAL IV ONE (14:32)
[2024-08-22] MEDS: ONDANSETRON INJ 2 MG/ML 2 ML VIAL IV STA (14:32)
[2024-08-22] MEDS: AMPICILLIN 2,000 MG in SODIUM CHLOR 0.9% MINI-B 100 ML IV STA (14:49)
[2024-08-22 14:54] LABS: Eosinophils # (auto) 0.21 K/uL (0.00-0.50); Hematocrit (blood only) 39.4 % (37.0-47.0); Hemoglobin 12.5 g/dl (12.0-16.0); Immature Granulocytes # (auto) 0.06 K/uL (0.01-0.20); Immature Granulocytes % (auto) 0.6 %; Lymphocytes # (auto) 2.52 K/uL (1.20-3.40); Mean Corpuscular Hemoglobin 26.3 pg (25.0-34.0); Mean Corpuscular Hgb Conc 31.7 g/dL (32.0-36.0); Mean Corpuscular Volume 82.9 fL (80.0-100.0); Mean Platelet Volume 10.1 fL (9.4-12.4); Monocytes # (auto) 0.73 K/uL (0.11-0.59); Neutrophils # (auto) 6.88 K/uL (1.40-6.50); Neutrophils % (auto) 65.4 %; Platelet Count 298 K/uL (130-400); RDW Coefficient of Variation 23.9 % (11.5-14.5); RDW Standard Deviation 69.8 fL (36.4-46.3); Red Blood Count 4.75 M/uL (4.20-5.40)
[2024-08-22 15:04] LABS: Albumin Globulin Ratio 1.5 (0.9-2); Albumin Level 4.3 gm/dl (3.4-5.0); BUN Creatinine Ratio 17.6 (10-20); Bilirubin,Total 0.3 mg/dl (0.2-1.0); Calcium 9.5 mg/dl (8.6-10.3); Creatinine Clr Calc Pharmacy 117.1 ml/min; Globulin 2.8 gm/dl (2.5-4.0); Magnesium 1.9 mg/dl (1.7-2.4); Potassium 3.6 mmol/L (3.5-5.1); Total Protein 7.1 gm/dl (6.0-8.3)
[2024-08-22] MEDS: MoRPHine SULFATE 4 MG/ML 1 ML CARP\\VIAL IV STA (15:04)
[2024-08-22 15:08] LABS: Pregnancy Test, Serum Negative (Negative)
[2024-08-22 15:20] LABS: Partial Thromboplastin Ratio 1.1; Partial Thromboplastin Time 29 Seconds (21-31); Prothrombin Time 10.9 Seconds (9.0-12.0)
[2024-08-22] MEDS: OPTIRAY 320 100ml IV ONE (15:24)
[2024-08-22 15:26] LABS: Anisocytosis Present
[2024-08-22 15:29] LABS: Appearance Urine Clear (Clear); Bacteria Urine Automated 2+ (None Seen); Bilirubin Urine Negative (Negative); Blood Urine Negative (Negative); Cast Urine Automated 0-2 /lpf (0-2); Color Urine Dark Yellow; Epithelial Cell Urine Auto 0-2 /hpf (0-2); Glucose Urine UA Negative (Negative); Ketones Urine Negative (Negative); Leukocyte Esterase Urine Trace (Negative); Nitrite Urine Negative (Negative); Protein Urine Negative (Negative); RBC Urine Automated 0-2 /hpf (0-2); Specific Gravity Urine 1.012 (1.000-1.030); Urobilinogen Urine Negative (Negative)
[2024-08-22 15:33] LABS: Adenovirus PCR Not Detected (NotDetected); Bordetella parapertussis PCR Not Detected (NotDetected); Bordetella pertussis PCR Not Detected (NotDetected); Chlamydia pneumoniae PCR Not Detected (NotDetected); Coronavirus 229E PCR Not Detected (NotDetected); Coronavirus CoV-2 (COVID19)PCR Not Detected (NotDetected); Coronavirus HKU1 PCR Not Detected (NotDetected); Coronavirus NL63 PCR Not Detected (NotDetected); Coronavirus OC43PCR Not Detected (NotDetected); Human Metapneumovirus PCR Not Detected (NotDetected); Influenza A PCR Not Detected (NotDetected); Influenza B PCR Not Detected (NotDetected); Mycoplasma pneumoniae PCR Not Detected (NotDetected); Parainfluenza Virus 1 PCR Not Detected (NotDetected); Parainfluenza Virus 2 PCR Not Detected (NotDetected); Parainfluenza Virus 3 PCR Not Detected (NotDetected); Parainfluenza Virus 4 PCR Not Detected (NotDetected); Respiratory Syncytial VirusPCR Not Detected (NotDetected); Rhinovirus/Enterovirus PCR Not Detected (NotDetected)
--- NOTE | 2024-08-22 15:48 | CT Scan Report ---
CT OF THE ABDOMEN AND PELVIS WITH CONTRAST CLINICAL HISTORY: Right flank pain, UTI, eval pyelo COMPARISON STUDY: CT of the abdomen and pelvis August 16, 2024. TECHNIQUE: Following IV administration of 94 mL of Optiray, axial images of the abdomen and pelvis we re obtained from the lung bases to the proximal femurs. Images were reviewed in the axial, sagittal, and coronal planes. IV contrast was administered without complication. Automated exposure control wa s utilized for the study. A dose lowering technique was utilized adhering to the principles of ALARA . CT DOSE: 1410.83 mGy.cm FINDINGS: No pneumatosis, free air or portal venous gas is present. There is no biliary ductal dilata tion status post cholecystectomy. Spleen, adrenal glands and kidneys are unremarkable with the except ion of a 1.1 cm fat-containing left renal lesion consistent with an angiomyolipoma. Nephrograms are s ymmetric. There is no hydronephrosis. There are no urinary calculi. A suprapubic catheter is in place . There is trace gas within the bladder. There is no evidence for a bowel obstruction. There is a mod erate to large amount stool within the colon. A small amount of stool within the rectum is present. T here is no lymphadenopathy. There are no fluid collections. Major vasculature is patent. Postoperativ e is within the lumbar spine are unchanged. Status post Mark-en-Y gastric bypass. IMPRESSION: 1. No acute process within the abdomen or pelvis. 2. No CT evidence for acute pyelonephritis. No urinary calculi or hydronephrosis. Suprapubic catheter in place. 3. Moderate to large amount of stool within the colon. ACT 112: Negative or not required by law. Electronically signed by: Aaron Hernandez M.D. 08/22/2024 3:46 PM
--- NOTE | 2024-08-22 17:21 | History & Physical Report ---
Date of Service August 22, 2024 Assessment & Plan (1) Recurrent UTI: (2) Chronic suprapubic catheter: Plan: Gricel Mancini is a medically complex 38y/o F with extensive PMHx including spina bifida, spastic diplegic cerebral palsy with baseline restricted mobility, chronic indwelling suprapubic catheter due to neurogenic bladder, history of recurrent UTIs, bladder spasms, asthma, GERD without esophagitis, IBS with both constipation and diarrhea, vitamin D deficiency, morbid obesity, intestinal postoperative nonabsorption s/p gastric bypass in 2021, vitamin B12 deficiency, congenital hypoplasia of left femur, osteoarthritis of left hip, chronic pain s yndrome, migraines, iron deficiency anemia, JOSE, PTSD, bipolar disorder and 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 Previously seen in the [facility] ED on 08/19/24 due to suprapubic abdominal pain and right flank pain. Extensive history of recurrent UTIs. UA at that time revealed 2+ leukocyte esterase, 11-20 WBC and 1+ bacteria; urine culture grew Enterococcus faecalis and she was discharged home on a course of Macrobid. She was made aware of the urine culture results above earlier today. Noticed minimal improvement in her suprapubic abdominal pain and right flank pain since last being seen in the ED therefore she was told to come back into the ED for further evaluation. Due for suprapubic catheter exchange on 08/27/24. She is requesting to have this changed sooner if possible. Appreciate urology consult. UA with trace leukocyte esterase, 6-10 WBC and 2+ bacteria. CTAP grossly unremarkable with no identifiable acute process. Initial laboratory evaluation reviewed. No leukocytosis. Procalcitonin negative. Lactate negative. No evidence of sepsis on admission. S/p dose of IV ampicillin in ED. Will continue IV ampicillin for now pending repeat urine culture results. Follow blood cultures. Appreciate ID consult given recurrent UTIs. (3) Hypertension: Plan: Normotensive on admission. Can continue home antihypertensive regimen. Routine BP monitoring. (4) Bladder spasms: Plan: Continue Myrbetriq, Ditropan XL, prazosin and tolterodine. Notes increased bladder spasms as of lately. Appreciate urology input in this regard. (5) Bipolar disorder: (6) JOSE (generalized anxiety disorder): (7) PTSD (post-traumatic stress disorder): Plan: Chronic, stable. Continue home psychiatric medication regimen. (8) Spastic diplegic cerebral palsy: Plan: Has rotating caretakers at home to assist her throughout the day with ambulation/ADLs. Will continue home baclofen and PRN cyclobenzaprine for muscle spasms. Mostly wheelchair bound at baseline but able to pivot with transfers. (9) Chronic pain syndrome: Plan: On PRN oxycodone therapy at home. She is requesting to continue this. Noted constipation on CTAP. Will start on routine bowel regimen. Suspect opioid- induced constipation. Other Chronic Medical Conditions: Asthma - Stable, no acute exacerbation. GERD/Migraine - Can continue home meds for these specific conditions. DVT Prophylaxis: On Eliquis [employer] given history of DVT/PE - continue. Code Status: FULL CODE PCP: Sarah Saavedra PA-C Disposition: Admit to med/telemetry for further inpatient evaluation and management. Patient seen in collaboration with Dr. Edwards. Please see addendum. I spent a total of 50 minutes coordinating, documenting, and providing care for this patient excluding time spent in the performance of separately billed services or time spent by another provider/QHP. This included personally reviewing all current laboratories and imaging studies, medical reconciliation, outpatient chart review and discussion with specialists. This chart was completed in part utilizing Speech Voice Recognition Software. Grammatical errors, random word insertions, pronoun errors, and incomplete sentences are an occasional consequence of this system due to software limitations, ambient noise, and hardware issues. Any formal questions or co ncerns about the content, text, or information contained within the body of this dictation should be directly addressed to the provider for clarification. History of Present Illness Chief Complaint: Worsening UTI symptoms, positive urine culture result Primary Care Provider: Sarah Saavedra PA-C Gricel Mancini is a medically complex 38y/o F with extensive PMHx including spina bifida, spastic diplegic cerebral palsy with baseline restricted mobility, chronic indwelling suprapubic catheter due to neurogenic bladder, history of recurrent UTIs, bladder spasms, asthma, GERD without esophagitis, IBS with both constipation and diarrhea, vitamin D deficiency, morbid obesity, intestinal postoperative nonabsorption s/p gastric bypass in 2021, vitamin B12 deficiency, congenital hypoplasia of left femur, osteoarthritis of left hip, chronic pain syndrome, migraines, iron deficiency anemia, JOSE, PTSD, bipolar disorder and 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 History obtained from the patient, discussion with ED provider and associated chart review. Patient seen at bedside in the ED with Dr. Edwards. Patient was previously seen in the [facility] ED on 08/19/24 due to suprapubic abdominal pain and right flank pain. Extensive history of recurrent UTIs. UA at that time revealed 2+ leukocyte esterase, 11-20 WBC and 1+ bacteria; urine culture grew Enterococcus faecalis sensitive to ampicillin, daptomycin, gentamicin, tetracycline and vancomycin. She was prescribed a course of Macrobid per pharmacy's recommendation upon discharge from the ED at that time which she notes compliance with taking since being home. She was made aware of the urine culture results above earlier today. Noticed minimal improvement in her suprapubic abdominal pain and right flank pain since last being seen in the ED on 08/19/24, therefore she was told to come back into the ED for further evaluation. Has chronic bladder spasms although notes these seem to have increased in frequency over the past few days. Endorses low-grade fever yesterday but none today. Has chronic drainage from the site where her suprapubic catheter is inserted which is unchanged in coloration. Has not noticed any erythema surrounding her suprapubic catheter insertion site. Feels her urine output may be slightly decreased however denies any hematuria or changes in her appetite. Does occasionally become nauseated when she has UTIs but no recent episodes of vomiting. Denies any chest pain or SOB. She is on Eliquis given her history of DVT/PE. Endorses compliance with her home medications. She is also on chronic oxycodone therapy as needed for chronic pain syndrome. Follows with Dr. Brian Schafer, physical medicine and rehabilitation physician from [facility]. No tobacco or alcohol use. No recreational drug use. Restricted mobility at baseline. Can stand and pivot but mostly wheelchair bound. Primary urologist is Dr. Johnny Olmos. Due for suprapubic catheter exchange on 08/27/24. She is requesting to have this changed sooner if possible. Initial laboratory evaluation reviewed. No leukocytosis. Hemoglobin stable. Procalcitonin negative. Respiratory BioFire panel negative. UA with trace leukocyte esterase, 6-10 WBC and 2+ bacteria. Urine and blood cultures pending. CTAP grossly unremarkable with no identifiable acute process; does though note moderate to large amount of stool within the colon. Allergies Allergy/AdvReac Type Severity Reaction Status Date / Time aripiprazole [From Abilify] Allergy Severe "Couldn't Verified 08/19/24 17:06 breathe" aztreonam Allergy Severe Dyspnea Verified 08/19/24 17:06 Beta-Blockers Allergy Severe "Couldn't Verified 08/19/24 17:06 (Beta-Adrenergic Bloc breathe" Gadolinium-Containing Allergy Severe Swelling Verified 08/19/24 17:06 Contrast Medi of Lip/Tongue/Throat hydrocodone Allergy Severe Hives Verified 08/19/24 17:06 lithium Allergy Severe Unconscious, Verified 08/19/24 17:06 unresponsive meperidine Allergy Severe Respiratory Verified 08/19/24 17:06 distress propranolol Allergy Severe Anaphylaxis Verified 08/19/24 17:06 verapamil Allergy Severe "Cant Verified 08/19/24 17:06 breathe" fexofenadine Allergy Intermediate Hives Verified 08/19/24 17:06 linezolid Allergy Intermediate Dyspnea Verified 08/19/24 17:06 propoxyphene Allergy Intermediate Hives Verified 08/19/24 17:06 Sulfa (Sulfonamide Allergy Intermediate Dyspnea Verified 08/19/24 17:06 Antibiotics) ketorolac Allergy Mild Itchy Verified 08/19/24 17:06 latex Allergy Mild contact Verified 08/19/24 17:06 dermatitis neomycin Allergy Mild Itchy Verified 08/19/24 17:06 tetracycline Allergy Unknown Unknown Verified 08/19/24 17:06 Iodinated Contrast Media Allergy Itching Verified 08/19/24 17:06 Home Medications Medication Instructions Recorded Confirmed Type albuterol sulfate 90 mcg/actuation 2 puff inhalation QID PRN 04/13/18 08/22/24 History aerosol inhaler (Ventolin HFA) Shortness Of Breath cetirizine 10 mg tablet (Zyrtec) 10 mg PO QAM 04/13/18 08/22/24 History hydroxyzine HCl 50 mg tablet 50 mg PO TID PRN Anxiety 04/13/18 08/22/24 History polyethylene glycol 3350 17 17 g PO BID PRN Constipation 04/13/18 08/22/24 History gram/dose oral powder (Miralax) prochlorperazine maleate 10 mg 10 mg PO Q8H PRN Nausea 04/13/18 08/22/24 History tablet (Compazine) baclofen 20 mg tablet 20 mg PO TID 08/09/19 08/22/24 History cyclobenzaprine 10 mg tablet 10 mg PO BID PRN Muscle Spasm 03/29/20 08/22/24 History onabotulinumtoxinA 100 unit 200 unit IM Q90D 03/29/20 08/22/24 History solution for injection (Botox) acetaminophen 500 mg tablet 1,000 mg PO Q6H PRN Pain 09/11/20 08/22/24 History (Tylenol Extra Strength) apixaban 5 mg tablet (Eliquis) 5 mg PO BID 04/04/23 08/22/24 History lurasidone 40 mg tablet (Latuda) 40 mg PO PM 04/04/23 08/22/24 History famotidine 20 mg tablet 20 mg PO DAILY PRN Acid Reflux 09/29/23 08/22/24 History topiramate 50 mg tablet 50 mg PO BID 09/29/23 08/22/24 History cholecalciferol (vitamin D3) 25 25 mcg PO QAM 10/14/23 08/22/24 History mcg (1,000 unit) tablet (Vitamin D3) cyanocobalamin (vitamin B-12) 1,000 mcg IM Q3M 10/14/23 08/22/24 History 1,000 mcg/mL injection solution docusate sodium 100 mg capsule 200 mg PO DAILY PRN Constipation 10/14/23 08/22/24 History (Colace) losartan 25 mg tablet 25 mg PO QAM 11/24/23 08/22/24 History oxybutynin chloride 5 mg tablet 5 mg PO Q8H PRN bladder spasms #90 05/09/24 08/22/24 Rx tabs buspirone 7.5 mg tablet 7.5 mg PO BID 06/17/24 08/22/24 History fluoxetine 60 mg tablet 60 mg PO QAM 06/17/24 08/22/24 History galcanezumab-gnlm 120 mg/mL 120 mg subcut MONTHLY 06/17/24 08/22/24 History subcutaneous syringe (Emgality) ondansetron HCl 4 mg tablet 4 mg PO Q8H PRN n/v 06/17/24 08/22/24 History sucralfate 1 gram tablet 1 g PO QID 06/17/24 08/22/24 History zolmitriptan 5 mg tablet 5 mg PO DIRECTED PRN Migraine 06/17/24 08/22/24 History Headache tolterodine 2 mg capsule,extended 2 mg PO QAM 06/20/24 08/22/24 History release 24 hr phenazopyridine 200 mg tablet 200 mg PO Q8H PRN pain #10 tabs 07/05/24 08/22/24 Rx (Pyridium) mirabegron 50 mg tablet,extended 50 mg PO QAM 08/05/24 08/22/24 History release 24 hr (Myrbetriq) multivitamin with minerals-folic 1 tab PO QAM 08/05/24 08/22/24 History acid 200 mcg chewable tablet (Multivitamin Gummies) omeprazole 20 mg capsule,delayed 20 mg PO BID 08/05/24 08/22/24 History release dicyclomine 10 mg capsule 10 mg PO QID PRN Indigestion/Abd 08/19/24 08/22/24 History pain fluticasone propionate 50 2 spray intranasal QAM 08/19/24 08/22/24 History mcg/actuation nasal spray,suspension loperamide 2 mg capsule 2 mg PO QID PRN Diarrhea 08/19/24 08/22/24 History nitrofurantoin 100 mg PO BID 7 days #14 caps 08/19/24 08/22/24 Rx monohydrate/macrocrystals 100 mg capsule (Macrobid) oxycodone 5 mg tablet 5 mg PO Q4H PRN Severe Pain (Scale 08/19/24 08/22/24 History Score 7-10) prazosin 1 mg capsule 2 mg PO HS 08/19/24 08/22/24 History trazodone 100 mg tablet 100 mg PO HS 08/19/24 08/22/24 History Past Med/Surg History Problem List (Updated 08/22/24 @ 21:30 by Noni Murray PA-C) Right flank pain (Acute) Constipation (Acute) Chronic pain syndrome Spastic diplegic cerebral palsy Bipolar disorder PTSD (post-traumatic stress disorder) JOSE (generalized anxiety disorder) Recurrent UTI (Acute) UTI (urinary tract infection) (Acute) Suprapubic pain Catheter-associated urinary tract infection History of migraine headaches Bladder spasms (Acute) Chronic suprapubic catheter (Chronic) Neurogenic bladder (Acute) History of pulmonary embolism History of DVT (deep vein thrombosis) Chronic pain Bipolar depression Ambulatory dysfunction Urinary retention Muscle spasm of both lower legs GERD (gastroesophageal reflux disease) Depression Anxiety disorder Paralysis of both lower limbs Asthma Hypertension Cerebral palsy Medical History COPD (chronic obstructive pulmonary disease) Spina bifida per chart review Muscle spasticity Gastric ulcer following with [facility]; had EGD 06/04/24 and scheduled for f/u in 3months Anemia History of chest pain [facility] ED visit 06/17/24; acute cardiopulmonary cause r/o; pt anemic; told to f/u with PCP and Cardio Urinary retention Paralysis of both lower limbs 2/2 Cerebral palsy; pt states has limited sensation and strength in b/l legs; states that she can stand with 1 person assist to pivot to chair/toilet but cannot walk; uses WC Depression Anxiety disorder Morbid obesity Bladder spasms Hematuria Hx MRSA infection (2007) Urine 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) Approximately 02/2023 (urine) Hx of migraines History of pulmonary embolism (2019) Approximately 2019 post-op - no issues since Taking Eliquis History of deep vein thrombosis (2019) x2 Taking Eliquis Asthma GERD (gastroesophageal reflux disease) 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; uses walker; needs 1 person assist to stand and pivot Hypertension Neurogenic bladder Chronic suprapubic catheter in place Bipolar depression Frequent UTI frequent s/p suprapubic catheter placement; currently with UTI and on ampicillin Radicular low back pain Chronic back pain Insulin resistance States blood sugar will drop when NPO, requests earlier OR time for all procedures History of COVID-19 (06/2023) mild symptoms, resolved Degenerative disc disease Surgical History History of transurethral resection of bladder tumor (TURBT) (2022) Postoperative nausea +hx PONV Chronic suprapubic catheter mutliple changes in OR History of hysterectomy H/O gastric bypass History of cystoscopy multiple with suprapubic catheter exchange; most recent 01/2024: MAC without issue History of esophagogastroduodenoscopy (EGD) History of foot surgery R/L (+ hardware) History of colonoscopy most recent 12/29/23 History of laminectomy H/O shoulder surgery right S/P surgical manipulation of ankle joint H/O dilation and curettage Hx of eye surgery Hx of spinal fusion Hx of cholecystectomy Family History Father Alive and well Hypertension Mother Alive and well Hypertension Other No family history of adverse response to anesthesia Social History Smoking Status: Never smoker Second Hand Exposure: No; Do You Dip or Chew Tobacco: No; Hx Alcohol Use: No Hx Substance Use: No Preferred Language: Chinese Communication Ability: Effective Visual Impairment: No Limitations Manager Community Development Required: No Beliefs That Will Affect Care: None marital status: Single Current Living Situation: Alone Current Living Situation Comment: has caregivers 12 hours per day Feels Safe at Home: Yes Assistive Devices: Glasses, Hospital Bed, Raised Toilet Seat and Wheelchair Review of Systems Review of Systems: At least ten systems reviewed and negative, except as noted in the HPI. Physical Exam Physical Exam: Gen: A&O 3 NAD HEENT: NCAT, EOMI, not icteric. External ears normal. No rhinorrhea. Moist mucous membranes. Neck: Supple, full range of motion, no observable masses, No meningeal sign. Lungs: No Respiratory distress. CV: RRR, no edema. Abdomen: suprapubic catheter site clean MSK: No joint swelling, no redness. Skin: No rashes, petechiae, lesions. Normal color per patient. Neuro: chronic spasticity and weakness in bilateral LE, mild contractures in bilateral UE Psych: Appropriate for situation. Results & Data Results & Data Vital Signs (Past 12 Hours) Vital Signs Temp Pulse Pulse Resp BP BP Pulse Ox 08/22/24 17:00 88 19 08/22/24 15:32 88 16 160/95 H 99 08/22/24 14:37 101 H 20 97 08/22/24 14:30 85 08/22/24 13:25 36.4 C L 97 H 16 145/91 H 97 O2 Del Method 08/22/24 17:00 08/22/24 15:32 Room Air 08/22/24 14:37 Room Air 08/22/24 14:30 08/22/24 13:25 Room Air Laboratory Results Short CBC 08/22/24 Range/Units 14:32 WBC 10.50 (4.8-10.8) K/ul Hgb 12.5 (12.0-16.0) g/dl Hct 39.4 (37.0-47.0) % Plt Count 298 (130-400) K/uL BMP 08/22/24 14:32 Sodium 138 Potassium 3.6 Chloride 107 Carbon Dioxide 22 BUN 12 Creatinine 0.68 Glucose 86 Calcium 9.5 Liver Function 08/22/24 Range/Units 14:32 Total Bilirubin 0.3 (0.2-1.0) mg/dl AST 14 (13-39) U/L ALT 12 (7-52) U/L Alkaline Phosphatase 71 (34-104) U/L Albumin 4.3 (3.4-5.0) gm/dl Urine 08/22/24 Range/Units 15:07 Urine Color Dark Yellow Urine Appearance Clear (Clear) Urine pH 6.0 (4.5-7.5) Ur Specific Brandon 1.012 (1.000-1.030) Urine Protein Negative (Negative) Urine Glucose (UA) Negative (Negative) Diagnostic Findings Abdomen/Pelvis CT 08/22/24 13:42 CT OF THE ABDOMEN AND PELVIS WITH CONTRAST CLINICAL HISTORY: Right flank pain, UTI, eval pyelo COMPARISON STUDY: CT of the abdomen and pelvis August 16, 2024. TECHNIQUE: Following IV administration of 94 mL of Optiray, axial images of the abdomen and pelvis were obtained from the lung bases to the proximal femurs. Images were reviewed in the axial, sagittal, and coronal planes. IV contrast was administered without complication. Automated exposure control was utilized for the study. A dose lowering technique was utilized adhering to the principles of ALARA. CT DOSE: 1410.83 mGy.cm FINDINGS: No pneumatosis, free air or portal venous gas is present. There is no biliary ductal dilatation status post cholecystectomy. Spleen, adrenal glands and kidneys are unremarkable with the exception of a 1.1 cm fat-containing left renal lesion consistent with an angiomyolipoma. Nephrograms are symmetric. There is no hydronephrosis. There are no urinary calculi. A suprapubic catheter is in place. There is trace gas within the bladder. There is no evidence for a bowel obstruction. There is a moderate to large amount stool within the colon. A small amount of stool within the rectum is present. There is no lymphadenopathy. There are no fluid collections. Major vasculature is patent. Postoperative is within the lumbar spine are unchanged. Status post Mark-en-Y gastric bypass. IMPRESSION: 1. No acute process within the abdomen or pelvis. 2. No CT evidence for acute pyelonephritis. No urinary calculi or hydronephrosis. Suprapubic catheter in place. 3. Moderate to large amount of stool within the colon. ACT 112: Negative or not required by law. Electronically signed by: Aaron Hernandez M.D. 08/22/2024 3:46 PM Medications Administered Discontinued Medications Diphenhydramine HCl (Diphenhydramine 50 Mg/Ml Vial) 50 mg IV ONE ONE Stop: 08/22/24 13:42 Last Admin: 08/22/24 14:32 Dose: 50 mg Documented By: SHARIF Sodium Chloride (Nss) 1,000 mls @ 999 mls/hr IV .Q1H1M ONE Stop: 08/22/24 14:41 Last Infusion: 08/22/24 15:30 Dose: Infused Documented By: Admin: 08/22/24 14:28 Dose: 999 mls/hr Documented By: SHARIF Acetaminophen (Ofirmev) 1,000 mg in 100 mls @ 400 mls/hr IV NOW STA Stop: 08/22/24 13:58 Last Infusion: 08/22/24 14:43 Dose: Infused Documented By: Admin: 08/22/24 14:28 Dose: 400 mls/hr Documented By: SHARIF Ampicillin Sodium 2,000 mg/ (Sodium Chloride) 100 mls @ 200 mls/hr IV NOW STA Stop: 08/22/24 14:16 Last Infusion: 08/22/24 15:21 Dose: Infused Documented By: Admin: 08/22/24 14:49 Dose: 200 mls/hr Documented By: SHARIF Ioversol (Optiray 320 100ml) 94 ml IV ONCE ONE Stop: 08/22/24 15:24 Last Admin: 08/22/24 15:24 Dose: 94 ml Documented By: APARNA Methylprednisolone (Methylprednisolone 125 Mg/2 Ml Vial) 40 mg IV NOW ONE Stop: 08/22/24 13:42 Last Admin: 08/22/24 14:31 Dose: 40 mg Documented By: SNS Morphine Sulfate (Morphine Sulfate 4 Mg/Ml 1 Ml Carp\\Vial) 4 mg IV NOW STA Stop: 08/22/24 15:03 Last Admin: 08/22/24 15:04 Dose: 4 mg Documented By: SNS Ondansetron HCl (Ondansetron Inj 2 Mg/Ml 2 Ml Vial) 4 mg IV NOW STA Stop: 08/22/24 13:45 Last Admin: 08/22/24 14:32 Dose: 4 mg Documented By: SHARIF Code Status & VTE Plan Code Status FULL CODE Supervising Physician Co-Signing Physician Notes Patient seen and examined at bedside. Patient presenting with flank pain and burning with urination. Difficult case given growth of Enterococcus on recent culture, however treated with significant improvement in UA and CT imaging unremarkable. Of note, patient states CP symptoms, including bladder spasms, have been worsening over the past few months. Concern for colonization of suprapubic catheter and high risk for severe MDRO with continued treatment. Concern that bladder spasms and worsening spasticity are cause of discomfort, as symptoms do not seem to fully attributable to a ur inary tract infection. Suspect that symptoms are likely multifactorial given unremarkable UA, labs, imaging, hemodynamics, and presentation. Plan is as follows: consult urology, replace suprapubic catheter (due for change on Tuesday), treat with ampicillin for now, ID consult for consideration of colonization and stopping antibiotics, and consideration of neurology consult for worsening spasticity. I have seen and discussed the case with the collaborating advanced practitioner. I agree with the above H&P. I have reviewed and confirmed the patients medical history, the findings on physical examination, and the patients diagnosis and treatment plan with Matheus THOMPSON and agree with the information documented. I spent a total of 20 minutes coordinating, documenting, and providing care for this patient excluding time spent in the performance of separately billed services. All of the aforementioned completed outside of collaborating with the assigned advanced practitioner for a full treatment plan. I have reviewed the advanced practitioner's documentation, and I agree with, and take responsibility for the plan of care (3) Hypertension Hypertension type: unspecified Qualified Code(s): I10 - Essential (primary) hypertension (5) Bipolar disorder Active/Remission status: remission status unspecified Qualified Code(s): F31.9 - Bipolar disorder, unspecified
[2024-08-22] MEDS ORDERED: DICYCLOMINE HCL 10 MG CAP PO PRN (18:37)
[2024-08-22] MEDS: oxyCODONE HCL IR 5 MG TAB (IMMEDIATE RELEASE) PO PRN (19:43)
[2024-08-22] MEDS ORDERED: SOD PHOSPHATE/SOD BIPHOSPHATE ENEMA 132 ML BTL PR PRN (20:29)
[2024-08-22] MEDS ORDERED: bisacodyL 10 MG SUPP PR PRN (20:29)
[2024-08-22] MEDS ORDERED: MAGNESIUM HYDROXIDE SUSP 30 ML UDC PO PRN (20:29)
[2024-08-22] MEDS ORDERED: MAGNESIUM CITRATE 296 ML/BTL PO PRN (20:29)
--- OUTSIDE RECORDS SUMMARY | 2024-08-22 20:49 | External Medical Summary | Summary of Care ---
Author Name Unknown Organization [facility] Address [address] [place] [address] Phone [phone] Care Team Providers Care Peanut Blancher Name Role Phone Sarah Miranda PA-C Primary Care Provider [phone] Reason for Referral * Medication Prior Authorization - Closed Specialty Diagnoses / Procedures Referred By Lauro rinaldi Referred To Contact Diagnoses Chronic pain syndrome Spina bifida of lumbar region, unspecified hydrocephalus presence (HCC) Bladder spasm Chronic complete spastic paraplegia (HCC) Spinal stenosis of lumbosacral region Sarah Miranda PA-C [place] [id number] Phone: tel: fax: Referral ID Status Reason Start Date Expiration Date Visits Re quested Visits Authorized [id number] Closed 999 999 Reason for Visit * Reason Onset Date Comments Medication Refill 08/21/2024 Encounter Details Date Type Department Care Team (Late st Contact Info) Description [facility] [place] [phone] Sarah Miranda PA-C [address] [place] [phone] Chronic pain syndrome; Spina bifida of lumbar region, unspecified hydrocephalus presence (HCC); Bladder spasm; Chronic complete spastic paraplegia (HCC); Spinal stenosis of lumbosacral region Allergies Active Allergy Reactions Criticality Noted Date Comments Aripiprazole Hives,Wheezing High 10/07/2014 Adhesive Tape 03/29/2018 Amoxicillin Nausea/vomiting 07/29/2001 Atenolol Other (Please comment) 09/08/2015 Difficulty breathing Aztreonam Other (Please comment) 03/13/2007 IV Dantrolene Liver complications (Please comment) 03/21/2016 Elevated [...] said itching Latex Itching 09/26/2013 Linezolid 10/23/2014 [place] Other (Please comment) High 12/29/2014 Became unresponsive [...] as of this encounter (statuses as of 08/22/2024) Medications docusate sodium (COLACE) 100 MG Capsule Take 1 Cap by mouth 2 times a day. 68 Cap 11/30/19 18 Active Additional Information Patient not taking.Informant: Patient, Reported on 08/20/2024 calcium CARBonate (TUMS E-X) 750 MG chewable tablet Take 1 Tab by mouth 2 times a day as needed for Heartburn. 90 Tab 12/09/19 Active Additional Information Patient not taking.Informant: Patient, Reported on 08/20/2024 Acetaminophen 500 MG Oral Tablet Take 2 [...] MORNING 30 Capsule 6 01/12/20 23 Active Lurasidone HCl 40 MG Oral Tablet (Latuda) Take 1 Tablet by mouth every evening. With a meal 03/04/20 Active Topiramate 50 MG Oral Tablet (topAMAX) Take 1 Tablet by mouth in the morning and 1 Tablet before bedtime. Active Baclofen 20 MG Oral Tablet TAKE 1 TABLET BY MOUTH IN THE MORNING, NOON, EVENING AND BEDTIME 360 Tablet 06/30/19 24 Active Naloxone HCl 4 MG/0.1ML Nasal Liquid (Narcan Nasal) Administer 1 spray into 1 nostril for suspected opioid overdose. Seek immediate medical attention. [email or web address] 1 Each 3 07/28/19 24 Active Additional Information Patient not taking.Reported on 08/20/2024 Cyclobenzaprine HCl 10 MG Oral Tablet (Flexeril) Take 1 Tablet by mouth in the morning and 1 Tablet at noon and 1 Tablet before bedtime. 06/30/19 24 Active hydrOXYzine HCl 50 MG Oral Tablet Take 1 Tablet by mouth 3 times a day as needed. 07/29/19 24 Active Linzess 145 MCG Oral Capsule (linaCLOtide)Ind ications:Constip ation, unspecified constipation type Take 1 Capsule by mouth daily before breakfast. 30 Capsule 11 10/28/19 24 Active OneTouch Verio w/Device KitIndications:P rediabetes,Hypog lycemia Use up to 3 times per day E16.2 1 Kit 11/08/19 24 Active Glucose Blood In Vitro Strip (OneTouch Ultra Blue)Indications :Prediabetes,Hyp oglycemia E16.2 100 Strip 2 11/08/19 24 Active OneTouch Delica Lancets 33G Use up to 3 times daily E16.2 11/08/19 24 Active OneTouch Verio In Vitro Strip (Glucose Blood)Indication s:Hypoglycemia Use up to 3 times daily E16.2 100 Strip 11 11/08/19 24 Active Diclofenac Sodium 1 % External Gel (Voltaren)Indica tions:Chronic pain of left knee Apply 4 g topically to affected area 4 times a day as needed for Pain. 100 g 11/21/19 Active Additional Information Patient not taking.Reported on 08/20/2024 Phenazopyridine HCl 200 MG Oral Tablet (Pyridium)Indica tions:Bladder spasm Take 1 Tablet by mouth in the morning and 1 Tablet at noon and 1 Tablet before bedtime. For pain.. 30 Tablet 12/07/19 24 Active Additional Information Patient not taking.Reported on 08/20/2024 Glucose 4 GM Oral Tablet ChewableIndicati ons:Postsurgical malabsorption, not elsewhere classified Take one tablet by mouth as directed for low blood glucose < 80 100 Tablet 12/13/19 Active Additional Information Patient not taking.Reported on 08/20/2024 Polyethylene Glycol 3350 17 GM/SCOOP Oral Powder (MiraLax) Take 17 g by mouth in the morning. 255 g 1 03/11/20 24 Active Additional Information Patient not taking.Reported on 08/20/2024 busPIRone HCl 7.5 MG Oral Tablet (Buspar)Indicati ons:Anxiety Take 1 Tablet by mouth in the morning and 1 Tablet in the evening. 04/24/20 24 Active Onabotulinumtoxi nA 100 UNIT Injection Solution Reconstituted (Botox) 2 Each 3 05/12/20 24 025 Active Alum & Mag Hydroxide-Simeth 200-200-20 MG/5ML Oral Suspension (Maalox Max)Indications: Abdominal pain, generalized Take 10 mL by mouth every 6 hours as needed for Indigestion. 355 mL 1 05/12/20 24 Active Additional Information Patient not taking.Reported on 08/20/2024 Apixaban 5 MG Oral Tablet (Eliquis)Indicat ions:History of DVT (deep vein thrombosis),Hist ory of pulmonary embolism Take 1 Tablet by mouth in the morning and 1 Tablet before bedtime. 180 Tablet 2 05/17/20 24 Active FLUoxetine HCl 60 MG Oral Tablet Take 1 Tablet by mouth in the morning. In the morning.. 06/04/20 24 Active Mirtazapine 15 MG Oral Tablet (Remeron) Take 1 Tablet by mouth every night at bedtime. 05/21/20 24 Active Myrbetriq 50 MG Oral Tablet Extended Release 24 Hour TAKE ONE TABLET (50 MG) BY MOUTH ONCE DAILY IN THE MORNING 05/01/20 24 Active Omeprazole 40 MG Oral Capsule Delayed Release (PriLOSEC)Indica tions:Gastroesop hageal reflux disease with esophagitis without hemorrhage Take 1 Capsule by mouth in the morning and 1 Capsule in the evening. 180 Capsule 1 06/11/20 24 Active Emgality 120 MG/ML Subcutaneous Solution Auto-injector (Galcanezumab-gn lm) Inject 1 mL (1 pen) under the skin Every Month. After completion of loading dose. 1 mL 4 5 7:47 AM EDT 06/15/19 25 Active Nystatin 381124 UNIT/GM External Powder (Nystop) Apply topically to affected area 3 times a day. 60 g 1 06/23/19 25 Active Additional Information Patient not taking.Reported on 08/20/2024 Sucralfate 1 GM Oral Tablet (Carafate) Take 1 Tablet by mouth in the morning and 1 Tablet at noon and 1 Tablet in the evening and 1 Tablet before bedtime. Crush and dissolve tablet in 1 Tbsp (15 mL) of Maalox before ingestion.. 360 Tablet 06/28/19 25 Active Cetirizine HCl 10 MG Oral Tablet (ZyrTEC)Indicati ons:Seasonal allergies Take 1 Tablet by mouth in the morning. 90 Tablet 3 07/04/19 25 Active Onabotulinumtoxi nA 100 UNIT Injection Solution Reconstituted (Botox) Inject 300 units intramuscularly into dytonic areas as well as head and neck for migraines every 3 months 3 Each 3 07/09/19 25 Active Ipratropium-Albu terol 0.5-2.5 (3) MG/3ML Inhalation Solution (Duoneb)Indicati ons:Intermittent asthma with reliever use up to twice per week with acute exacerbation Inhale 3 mL via nebulizer every 6 hours as needed for Shortness of Breath or Wheezing. 360 mL 1 07/11/19 25 Active Additional Information Patient not taking.Reported on 08/20/2024 Albuterol Sulfate HFA 108 (90 Base) MCG/ACT Inhalation Aerosol SolutionIndicati ons:Intermittent asthma with reliever use up to twice per week with acute exacerbation,Whe ezing INHALE 2 puffs BY MOUTH EVERY 4 HOURS NEEDED FOR wheezing 8.5 g 1 07/11/19 25 Active Additional Information Patient not taking.Reported on 08/20/2024 Benzonatate 100 MG Oral Capsule (Tessalon Perlitalo)Indicatio ns:Intermittent asthma with reliever use up to twice per week with acute exacerbation,Inf luenza A Take 1 Capsule by mouth 3 times a day as needed for Cough. Do not cut, crush, or chew. 30 Capsule 07/11/19 25 Active Additional Information Patient not taking.Reported on 08/20/2024 Prazosin HCl 1 MG Oral Capsule (Minipress)Indic ations:HTN, goal below 140/90 Take 2 Capsules by mouth at bedtime. 180 Capsule 3 07/20/19 25 Active Prochlorperazine Maleate 10 MG Oral Tablet (Compazine)Indic ations:Nausea Take 1 Tablet by mouth 2 times a day as needed for Nausea. 60 Tablet 1 07/27/19 25 Active Additional Information Patient not taking.Reported on 08/20/2024 Ondansetron HCl 4 MG Oral Tablet (Zofran)Indicati ons:Nausea Take 1 Tablet by mouth every 8 hours as needed for Nausea or Vomiting. 30 Tablet 1 07/27/19 25 Active Additional Information Patient not taking.Reported on 08/20/2024 Fluticasone Propionate 50 MCG/ACT Nasal Suspension (Flonase)Indicat ions:Nasal congestion Administer 2 Sprays into each nostril in the morning. 18.2 mL 1 08/03/19 25 Active ZOLMitriptan 5 MG Oral Tablet TAKE ONE TABLET BY MOUTH AT ONSET of migraine AND MAY REPEAT in 2 HOURS if needed - Maximum 2 doses in 24 HOURS 10 Tablet 2 08/09/19 25 Active Additional Information Patient not taking.Reported on 08/20/2024 predniSONE 10 MG Oral Tablet (Deltasone)Indic ations:Chronic pain syndrome,Spinal stenosis of lumbosacral region,Chronic complete spastic paraplegia (HCC) Take 3 Tablets by mouth daily for 3 days, THEN 2 Tablets daily for 3 days, THEN 1 Tablet daily for 3 days. 18 Tablet 08/14/19 25 025 Active Additional Information Patient not taking.Reported on 08/20/2024 Losartan Potassium 25 MG Oral Tablet (Cozaar)Indicati ons:HTN, goal below 140/90 Take 1 Tablet by mouth in the morning. 90 Tablet 1 08/16/19 25 Active Loperamide HCl 2 MG Oral Capsule (Imodium)Indicat ions:Diarrhea, unspecified type Take 1 Capsule by mouth 4 times a day as needed for Diarrhea. 20 Capsule 08/16/19 25 Active traZODone HCl 100 MG Oral Tablet (Desyrel) TAKE ONE TABLET BY MOUTH EVERY night AT BEDTIME 08/15/19 25 Active Dicyclomine HCl 10 MG Oral Capsule (Bentyl)Indicati ons:Diarrhea, unspecified type,Abdominal pain, generalized Take 1 Capsule by mouth 4 times a day as needed for Indigestion (abdominal pain). For abdominal pain 30 Capsule 08/16/19 25 Active Nitrofurantoin Monohyd Macro 100 MG Oral Capsule (Macrobid) Take 1 Capsule by mouth in the morning and 1 Capsule before bedtime. For 7 days. 08/21/19 25 Active oxyCODONE HCl 5 MG Oral Tablet (Oxy IR)Indications:C hronic pain syndrome,Spina bifida of lumbar region, unspecified hydrocephalus presence (HCC),Bladder spasm,Chronic complete spastic paraplegia (HCC),Spinal stenosis of lumbosacral region Take 1 Tablet by mouth every 4 hours as needed for Pain, Severe. Do not start before August 27, 2024. 42 Tablet 08/28/19 25 Active oxyCODONE HCl 5 MG Oral Tablet (Oxy IR)Indications:C hronic pain syndrome,Spina bifida of lumbar region, unspecified hydrocephalus presence (HCC),Bladder spasm,Chronic complete spastic paraplegia (HCC),Spinal stenosis of lumbosacral region Take 1 Tablet by mouth every 4 hours as needed for Pain, Severe. 42 Tablet 08/16/19 25 025 Disconti nued(Ref ill) Hospital, Clinic, or Other Facility Administered Medication Ordered Dose Route Frequency Start Date End Date Status vitamin b-12 (Cyanocobalamin) inj 1,000 mcgIndications:S/P gastric bypass 1000 mcg IM [id number] 08/30/2023 06/03/2026 Active cefTRIAXone (Rocephin) (350 mg/mL) inj dilution 1,000 mgIndications:Urinary tract infection without hematuria, site unspecified 1000 mg IM Q24H 06/01/2024 Active cefTRIAXone (Rocephin) (350 mg/mL) inj dilution 1,000 mgIndications:Urinary tract infection associated with catheterization of urinary tract, unspecified indwelling urinary catheter type, subsequent encounter 1000 mg IM Q24H 06/02/2024 Active documented as of this encounter (statuses as of 08/22/2024) Active Problems Problem Noted Date Diagnosed Date Controlled substance agreement signed 08/03/2024 Iron deficiency anemia due to chronic blood loss 07/24/2024 Spastic diplegic cerebral palsy 06/23/2024 B12 deficiency 06/20/2024 Anemia 06/20/2024 Urinary tract infection 11/15/2023 Chronic migraine without aur a, not intractable, without status migrainosus 06/26/2023 Assessment & Plan (04/19/2024 11:08 AM EST): Patient is following with Neurology in about to start ajovy. It is okay for patient to take ibuprofen/Compazine/Benadryl. Counseled patient on how to take these in the appropriateness, dosing, duration. If not improving suggest she follow up with Neurology. Morbid obesity with body mass index of 40.0-44.9 in adult 05/24/2023 Asthma in remission 03/21/2023 Vaginal candidiasis 03/02/2023 Localized osteoporosis witho ut current pathological fracture 11/16/2022 Intestinal postoperative nonabsorption Dehydration 05/11/2022 Overview (10/19/2022): historical S/P gastric bypass 05/07/2022 Bipolar disorder, curr episo de depressed, severe, w/psychotic features 05/03/2022 [facility] current use of anticoagulant therapy 0 08/28/2021 Recurrent chest pain 07/31/2021 Assessment & Plan (09/02/2021 2:44 PM EDT): Referred to cardiology for workup--seen in Jul. [place] atypical for ACS. ED workup neg for ischemia. L chest tender to palpation. Advised to use tylenol for pain. Suspected pain MSK in nature. Had echo done 08/11/21 with EF 58% and mild diastolic dysfunction Osteoarthritis of left hip 07/18/2021 History of pulmonary embolism 03/09/2021 Assessment & Plan (09/02/2021 2:49 PM EDT): On eliquis History of DVT (deep vein thrombosis) 03/09/2021 Assessment & Plan (09/02/2021 2:49 PM EDT): On eliquis Chronic complete spastic paraplegia 09/26/2020 Herniation of lumbar intervertebral disc with ra diculopathy 11/07/2019 Impaired mobility and ADLs 09/06/2019 Chronic pain syndrome 09/06/2019 Spina bifida 10/23/2018 Assessment & Plan (09/02/2021 2:30 PM EDT): Needs assist with adls--has caregivers in the home. PTSD (post-traumatic stress disorder) 12/31/2016 Adhesive arachnoiditis 08/03/2016 Factitious disorder 03/28/2016 Spasticity 03/21/2016 Overview (04/15/2016): Bilateral lower extremities with some involvement of upper extremities. 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 C/o LE weakness and acute/chronic low back pain. Lumbar spine MRI reportedly performed @ [facility], not available for review Pt denies receiving steroid injections D/C IV dilaudid. Resume PO hydromorphone 4mg in setting of subjected acute on chronic low back pain, foot pain and now chest pain Encourage use of tylenol 1000mg or ibuprofen 600mg PRN Chronic suprapubic catheter 05/31/2014 Overview (05/31/2014): Placed 05/26 @ [facility] by interventional radiology for urinary retention and rayo intolerance; change every 3 months Vitamin D deficiency 04/05/2012 Premature menopause 10/23/2011 Overview (01/31/2013): 2012 surgical [facility] BSO for benign reasons (menorrhagia) Hyperinsulinemia 09/27/2008 Overview (09/16/2009): 09/20 held metformin due to anion Gap acidosis inpatient (multifactorial:cdiff, metfromin, vomitting) Irritable bowel syndrome wit h both constipation and diarrhea 08/29/2006 Overview (08/29/2006): Dicyclomin qid started by [facility] Displacement of lumbar inter vertebral disc without myelopathy 03/03/2006 Overview (09/15/2015): Rigth L5-S1. Fermin injections. Did not help. For discectomy at [facility] 08/31/06. Had subsequent MRSA graft Remove rods [...] sees Dr. Mock (spine surgeon) @ [facility] 10/24: lumbar spinal surgery by Dr. Bob Heard 09/11/15: bulging disc with moderate narrowing of neural foramen B L4-5 and R L5- S1 Gastroesophageal reflux disease without esophagi tis 08/15/2003 Overview (06/18/2020): EGD 12/23: + small hiatal hernia, no gastritis; increase PPI to protonix 40 mg bid Egd 10/16 mild esophagitis and gastritis. Generic Scoliosis documented as of this encounter (statuses as of 08/22/2024) Resolved Problems Problem Noted Date Diagnosed Date Resolved Date Postsurgical malabsorption, not elsewhere classified 07/12/2023 01/02/2024 Overview (01/02/2024): duplicate Acute gastritis without hemorrhage 07/09/2023 08/06/2023 Uncomplicated asthma 07/04/2023 024 Depression, unspecified 06/26/202307/15 Migraine 05/24/2023 11/15/2023 UTI (urinary tract infection ) due to urinary indwelling catheter 02/27/2023 04/04/2023 VRE (vancomycin resistant en terococcus) culture positive 02/27/2023 04/19/2024 Spastic hemiplegia 07/31/2022 Uncomplicated asthma 07/31/2022 023 Overview (06/02/2023): More specified condition in remission on pl Body mass index (BMI) 45.0-49.9, adult 07/12/2022 06/02/2023 Overview (06/02/2023): historical Urinary tract infection asso ciated with indwelling urethral catheter 06/19/2022 07/31/2022 Epigastric pain 06/19/2022 01/04/2023 Post-op pain 04/07/2022 08/05/2022 Bipolar disorder, curr episo de depressed, severe, w/psychotic features 03/25/2022 03/25/2022 Pre-operative examination 03/16/2022 Osteomyelitis 02/25/2022 07/31/2022 Acute pyelonephritis 02/25/2022 023 Bladder spasm 10/12/2021 04/04/2023 Osteoporosis without current pathological fracture 08/28/2021 06/02/2023 Overview (06/02/2023): More specified condition on pl Right foot pain 08/20/2021 08/28/2021 Contusion of right hip 08/20/202108/28 Age-related osteoporosis wit hout current pathological fracture 07/31/2021 08/28/2021 Hip pain, right 07/16/2021 08/28/2021 Intermittent asthma with rel iever use up to twice per week without complication 03/09/202107/15 Acute pulmonary embolism 01/30/2021 Cough variant asthma 08/17/2020 021 Encounter for long-term curr ent use of medication 08/13/2020 04/04/2023 Overview (03/13/2024): Managed by Maureen Bowie MD To view the Medication Usage Agreement, go to Action, Patient Files. 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 04/04/20 Assessment & Plan (09/02/2021 5:47 PM EDT): Followed by psych/[facility] Ambulatory dysfunction 01/31/202001/04 Low back pain with right-sided sciatica 11/21/2019 12/12/2019 Unspecified urinary incontinence 09/20/2019 12/12/2019 Sprain and strain of shoulder and upper arm 09/06/2019 12/12/2019 Paresthesia 09/06/2019 01/04/2023 Panic disorder 08/27/2019 08/06/2022 Bipolar I disorder, most rec ent episode depressed, mild 08/27/2019 07/21/2021 Migraine without aura and wi thout status migrainosus, not intractable 07/12/2019 08/06/2022 Anxiety 06/28/2019 08/28/2021 Overview (09/06/2019): Last Assessment & Plan: Cont outpatient meds: requested pharmacist to confirm outpatient meds. Unsure of reliability from patient-provided history. (patient states she takes ativan, and is prescribed regularly, but eventually questioned why no recent outpatient scripts and she admits then it was only as an inpatient @ rehab) Degenerative lumbar spinal stenosis 06/18/2019 04/19/2024 Dysuria 05/31/2019 12/12/2019 Bipolar I disorder, current [...] knee 05/18/2016 02/15/2019 Recurrent falls 04/15/2016 01/04/2023 Assessment & Plan (09/02/2021 5:46 PM EDT): Continue outpatient PT at [facility] Muscle spasms of both lower extremities 03/22/2016 03/28/2016 Overview (03/22/2016): The patient has muscle stiffness no responding to [place] She is hyperreflexic. She has lost pin-prick inside oral oral mucosa and lips. She has urinary incontinence. 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 Acute otitis media with effusion of both ears 10/20/1902/02/2018 Bilateral chronic serous otitis media 10/19/2015 02/02/2018 Drug-seeking behavior 09/10/20152022 Overview (10/06/2015): Pain management consult 09/05/15: do not give narcotics, "In addition,patient seems to drug seeking which is a contraindication to starting her on opioids." [facility] discharge 10/04/15: patient exhibiting behavior of narcotic dependency (requesting escalation of IV dilaudid) Cerebral palsy 08/21/2015 05/12/2024 Assessment & Plan (09/23/2021 11:55 AM EDT): Has caregivers in the home for adl and iadl assistance. Assessment & Plan (09/02/2021 2:46 PM EDT): Has caregivers in the home for adl and iadl assistance. Weakness of both upper extremities 08/21/2015 12/12/2019 Generalized weakness 03/01/2015 018 Chronic back pain 03/01/2015 03/03/2022 Paraplegia 02/19/2015 03/25/2016 MEDICATION USE AGREEMENT 06/07/2014 Overview (06/07/2014): Pain contract established with [facility] ED 05/26 - give valium 5 mg and dilaudid 1 mg IV or IM; repeat x 1 in 3 hours if needed Morbid obesity due to excess calories 01/09/2014 12/15/2021 Overview: Per Obesity protocol #1 Assessment & Plan (09/02/2021 2:29 PM EDT): Followed by wt mgmt, per last notes from clinic yesterday pt wants to pursue surgical options for wt loss. Other abnormal glucose 01/09/201412/07 Urinary retention 05/18/2013 01/04/2023 Overview (01/04/2014): Cysto neg 05/21/13. Following with [facility] [place] Miri CERVANTES as of 09/26/2013. Resolved s/p laminectomy L4-S1 October 2013 @ [place] [address] Heard. Assessment & Plan (05/07/2022 12:02 PM EST): Rayo draining--currently being treated for UTI with keflex Assessment & Plan (09/23/2021 12:07 PM EDT): Called urology and verified that she has nurse appt 10/05 to remove rayo/voiding trial. Hypertension goal BP (blood pressure) < 140/90 12/20/2012 02/02/2018 Bone spur 11/09/2012 02/02/2018 Intractable chronic migraine without aura and without status migrainosus 08/03/2011 08/06/2023 Overview (03/22/2016): Topamax; nortriptyline in past. Headache is not her main problem. Main : Neurogenic bladder and spastic paraparesis. Rotator cuff syndrome 12/08/20102019 Overview (04/15/2014): 11/21 rigth tendinosis and partial tear MRI shoulder 03/26: New small moderate grade undersurface partial-thickness rotator cuff tears and/or tendinopathy/tendinitis near the distal/humeral attachments of the RIGHT supraspinatus and infraspinatus tendons. Pain in limb 03/19/2010 12/12/2019 Asthma, mild persistent 12/08/200910/11 Overview (05/31/2014): Per Asthma Taxonomy, yasmany Randhawa PFT 04/30/14: normal Acidosis 09/16/2009 02/02/2018 Overview (09/20/2009): Admission 08/20 suspect multifactorial (diarrhea, metformin)--resolved 09/20. Hold metformin Internal derangement of knee 02/26/2009 04/18/2019 Overview (02/26/2009): Left MRI tear ant horn lat meniscus, partial tear ACL. Dr Burgess Abnormal results of liver function studies 09/27/2008 02/02/2018 Overview (08/07/2010): Suspect due to hyperinsulin and meds Ct liver fatty Infiltration. Methicillin resistant Staphy lococcus aureus infection 04/26/2007 03/12/2008 Overview (05/08/2007): Iliac crest bone harvest site Major depressive disorder, r ecurrent episode, moderate 01/26/2006 08/06/2023 Overview (03/31/2015): Psychiatry.Celexa changed to nortriptylene, sertraline, wellbutrin 01/21 increased wellbutrin, stopped sertraline. Zopidem. 01/23: Chaudrhy; increased prozac, on wellbutrin 03/27: followed by Mauricio THOMPSON @ [facility] ADVANCE DIRECTIVE INFORMATION 11/17/2004 08/06/2022 Overview (11/17/2004): No, Advance Directive brochure offered , patient declined. Allergic rhinitis 11/24/2001 11/30/2018 Overview (08/03/2011): zyrtec Fatty liver 08/06/2022 Chronic sinusitis 11/30/2018 Overview (10/20/2015): frequent documented as of this encounter (statuses as of 08/22/2024) Immunizations Name Administration Dates Next Due COVID-19 mRNA, LNP-s, No Pre serve, 2-Dose Series ([employer]) 06/25/2021,12/13/2020,11/15/2020 COVID-19, MRNA-LNP, PF, 30 M CG/0.3 mL, 12 YRS AND ABOVE, IM ([employer]-Com[employer]) 03/29/2023 Covid-19, Mrna, Lnp-s, Pf, B ivalent, 30 Mcg, IM, 12 yrs and above (Pfizer) 06/17/2022 H1N1 2009 Influenza, IM 05/27/2009 Pneumococcal Conjugate Vacci ne, 20-valent ([id number]) 12/15/2021 Pneumococcal Polysaccharide PPV23 (Pneumovax) 05/01/2008 Seasonal Influenza Vac., MDV , IM, 0.5 mL (Fluzone) 02/24/2015,03/05/2014,04/17/2013,04/05,03/26/2009,04/16/2008,04/26/2007 ,03/22/2006 Seasonal Influenza, PF, 6 M & above, IM , (FluLaval or Fluzone) 02/22/2023,03/03/2022,03/25/2021,03/18,02/15/2019,03/29/2018 Seasonal Influenza, Quadriva lent, No Preserve, IM 04/01/2016 Seasonal Influenza, Quadriva lent, No Preserve, Peds 04/27/2017 TDAP (age 10 and older)(Boostrix) 04/23/2019 TDAP, [...] Date Recorded PHQ Adult Total Score 0 08/16/2024 Hunger Vital Sign Answer Date Recorded Within the past 12 months, y ou worried that your food would run out before you got the money to buy more. Never true 08/17/19 25 Within the past 12 months, t he food you bought just didn't last and you didn't have money to get more. Never true 08/16/2024 Childcare Answer Date Recorded Do you feel overwhelmed with taking care of a child, family member or friend? No 08/16/2024 Does your family need help f inding childcare? (Household - for ages 0-17 years) Not on file 08/16/2024 Clothing Answer Date Recorded Have you been unable to get clothing when it was really needed? No 08/16/2024 Is your family able to get c lothes or diapers when needed? (Household - for ages 0-17 years) Not on file 08/16/2024 Personal Safety Answer Date Recorded Do you feel unsafe or have concerns for your saf ety? No 08/16/2024 Do you have concerns for you r family's safety? (Household - for ages 0-17 years) Not on file 08/16/2024 Utilities Answer Date Recorded Do you have trouble paying y our heating, water, or electric bill? No 08/16/2024 Is your family able to pay t he heat, water, or electric bill? (Household - for ages 0-17 years) Not on file 08/16/2024 Does your family have access to good internet? (Household - for ages 0-17 years) Not on file 08/16/2024 Employment Status Answer Date Recorded Are you unemployed or without regular income? No 08/16/2024 Does the household have a re lar source of income? (Household - for ages 0-17 years) Not on file 08/16/2024 Social Connections Answer Date Recorded How often do you feel lonely or isolated from th ose around you? Never 08/16/2024 Financial Resource Strain Answer Date R ecorded Do you have any trouble payi ng for your medications, or do you think you might in the future? No 08/16/2024 Does your family have troubl e paying for medicine? (Household - for ages 0-17 years) Not on file 08/16/2024 Transportation Needs Answer Date Record ed READ ONLY Do you have troubl e getting a ride to medical visits or work? Never True 08/16/2024 Does your family have a hard time getting a ride to doctors visits? (Household - for ages 0-17 years) Not on file 08/16/2024 Has lack of transportation k ept you from medical appointments, meetings, work, or from getting things needed for daily living? Check all that apply. No 08/16/2024 Do you (or your family) have trouble finding or paying for a ride (transportation)? (Household - for ages 0-17 years) Not on file 08/16/2024 Housing Stability Answer Date Recorded Do you currently live in a s helter or have no steady place to sleep at night? No 08/16/2024 READ ONLY Do you think you a re at risk of becoming homeless? No 08/16/2024 Does your family worry about paying for your home or becoming homeless? (Household - for ages 0-17 years) Not on file 0 08/16/2024 Are you homeless or worried that you might be in the future? No 08/16/2024 Are you (or your family) chris eless or worried that you might be in the future? (Household - for ages 0-17 years) Not on file Food Insecurity Answer Date Recorded Do you need food for this week? No 11/14/2023 Are you able to get enough f ood for your family? (Household - for ages 0-17 years) Not on file 11/14/2023 Does your family need food t his week? (Household - for ages 0-17 years) Not on file 11/14/2023 Do you always have enough fo od for your family? (Household - for ages 0-17 years) Not on file 11/14/2023 Food Insecurity Answer Date Recorded Within the past 12 months, y ou worried that your food would run out before you got the money to buy more. Never true 08/17/19 25 Within the past 12 months, t he food you bought just didn't last and you didn't have money to get more. Never true 08/16/2024 Do you need food for this week? No 08/16/2024 Comments No Sex and Gender Information Value Date Recorded Sex Assigned at Female 10/23/2018 9:35 AM EDT Legal Sex Female 5:22 AM EST Gender Identity Female 10/23/2018 9:35 AM EDT Sexual Orientation Straight 10/23/2018 9: 35 AM EDT Occupation Industry Job Start Date Job End Date [employer] Not on file Not on file Not o n file documented as of this encounter Functional Status * Are you deaf or do you have serious difficulty hearing? Answer Date of Assessment Author No 07/08/2023 5:35 AM Heather Valle RN * Are you blind or do you have serious difficulty seeing, even when wearing glasses? Answer Date of Assessment Author No 07/08/2023 5:35 AM Heather Valle RN * Do you have serious difficulty walking or climbing stairs? (5 years old or older) Answer Date of Assessment Author Yes 07/08/2023 5:35 AM Heather Valle RN * Do you have difficulty dressing or bathing? (5 years old or older) Answer Date of Assessment Author Yes 07/08/2023 5:35 AM Heather Valle RN * Because of a physical, mental, or emotional condition, do you have difficulty doing errands alone such as visiting a doctors office or shopping? (15 years old or older) Answer Date of Assessment Author Yes 07/08/2023 5:35 AM Heather Valle RN documented as of this encounter Mental Status * Because of a physical, mental, or emotional condition, do you have serious difficulty concentrating, remembering, or making decisions? (5 years old or older) Answer Entry Date Author No 07/08/2023 5:35 AM Heather Valle RN documented in this encounter Miscellaneous Notes * Telephone Encounter - Sarah Miranda PA-C - 08/21/2024 5:41 PM EDTSigned Prescriptions: Disp Refills oxyCODONE HCl 5 MG Oral Tablet (Oxy IR) 42 Tab*0 Sig: Take 1 Tablet by mouth every 4 hours as needed for Pain, Severe. Do not start before August 27, 2024. Authorizing Provider: SARAH MIRANDA * Telephone Encounter - Omaira Ariza RN - 08/21/2024 4:07 PM EDT Pt requesting refill for 08/27 as she will not be seen by PCP until 08/29 documented in this encounter Plan of Treatment Upcoming Encounters Date Type Department Care Team (Late st Contact Info) Description 08/23/2024 9:20 AM EDT Telemedicine [facility] [address] [phone] Kong Areavlo PA-C [address] [phone] 08/29/2024 1:00 PM EDT Office Visit [facility] [address] [place] [phone] Sarah Miranda PA-C [address] [place] [address] 08/30/2024 10:45 AM EDT Office Visit Orthopaedics [facility] [address] [place] [phone] Windy Haley PA-C [address] [place], [place] [phone] 09/12/2024 10:22 AM EDT Hospital Encounter [facility] [address] [place] [phone] Edwardo Arias, [address] [phone] 09/12/2024 10:22 AM EDT - 09/12/2024 10:41 AM EDT Surgery [facility], Operating Room [address] [phone] Edwardo Arias, [address] [phone] INJECTION SPINE LUMBAR OR SACRAL 09/18/2024 10:20 AM EDT Office Visit Infectious Disease, [address] [phone] Radha Fuentes MD [address] [place] [facility] [place] [address] 10/03/2024 10:40 AM EDT Office Visit [facility] [address] [phone] Lizet Briseno MD [address] [place] [address] 10/03/2024 3:40 PM EDT Office Visit Neurology, [address] [address] Maureen Bowie MD [address] [place] [address] 10/12/2024 10:30 AM EDT Nurse Only Hematology/Oncolog y Treatment, [address] [phone] Gl, Chair10 Hem Onc [address] [place] [address] 10/15/2024 3:00 PM EDT [facility]medicine [facility], [address] [address] Amadou Rene CRNP [address] [place] [phone] 10/16/2024 2:30 PM EDT Office Visit Hematology/Oncolog y, [address] [phone] Radha Espinoza CRNP [address] [place] [address] 01/21/2025 8:30 AM EDT Office Visit Urology, [place] [address] [facility] [place] [address] Nadir Foy MD [address] [facility] [place] [address] 03/28/2025 9:45 AM EDT Office Visit General Surgery, [facility] [address] [facility] [address] [address] Manolo Beckett MD [address] [place] [address] Scheduled Procedures Name Priority Associated Diagnoses Date/Ti me INJECTION SPINE LUMBAR OR SACRAL Lumbar radiculopathy 09/12/2024 10:22 AM EDT Health Maintenance Due Date Last Done Comments COVID-19 Vaccine ( season) 2024 03/29/2023, 06/17/2022, 06/25/2021, Additional history exists Influenza Vaccine (FLU shot) (#1) 2024 02/22/2023, 03/03/2022, 03/25/2021, Additional history exists Depression Monitoring 08/16/2025 08/16/2024 DXA Scan 02/23/2027 02/24/2024, 07/28/2021 Diabetes Screening 08/13/2027 08/12/2024, 0 08/07/2024, 07/30/2024, Additional history exists DTap/Tdap Vaccines (8 - Td or Tdap) 04/23/2029 04/23/2019, 03/26/2009, 03/03/1999, Additional history exists Hepatitis B Vaccine Completed 04/04/1997, 10/30/1996, 10/02/1996 MENINGOCOCCAL (MENACTRA/MENVEO) Aged Out 03/02/2005 No longer eligible based on patient's age to complete this topic Hepatitis C Screening Completed 09/26/2008 Pneumococcal Vaccine: Pediatrics (0 to 5 Years) and At-Risk Patients (6 to 18 Years and 19+ Years) Completed 12/15/2021, 05/01/2008 Meningitis B Vaccine (Bexsero/Trumemba) Aged Out No longer eligible based on patient's age to complete this topic documented as of this encounter Medical Devices Implanted Type Area Medical Radiation Tech Device Identifier Shelf Expiration Date Model / Serial / Lot Plate Small Mtpj - [id number] Implanted:Qty: 1 on 11/15/2017 by Cristobal Calvillo MD [place] [facility] [place]: Foot [id number] / / Screw Locking 2.7x14mm - [id number] Implanted:Qty: 1 on 11/15/2017 by Cristobal Calvillo MD [place] [facility] [place]: Foot / / 2.7 X 16mm Locking Screw Implanted:Qty: 2 on 11/15/2017 by Cristobal Calvillo MD [place] [facility] [place]: Foot [employer] / / 2.7 X 20 Locking Screw Implanted:Qty: 1 on 11/15/2017 by Cristobal Calvillo MD [place] [facility] [place]: Foot [employer] / / 2.7 X 18mm Locking Screw Implanted:Qty: 1 on 11/15/2017 by Cristobal Calvillo MD [place] [facility] [place]: Foot [employer] / / Screw Locking 2.7x10mm - [id number] Implanted:Qty: 1 on 11/15/2017 by Cristobal Calvillo MD [place] [facility] [place]: Foot [employer] / / 4.0mm X 44 Mm Compression Screw Implanted:Qty: 1 on 10/09/2018 by Bao Hernández MD [place] [facility] [place]: Foot AR-8740-44 H / / Description:Implant from set 2.5x30 Compression Screw Implanted:Qty: 1 on 10/09/2018 by Bao Hernández MD [place] [facility] [place]: Foot [employer] AR-8725-30 H / / Screw [employer] 2.6sdn21ds - [id number] Implanted:Qty: 2 on 02/01/2022 by Bao Hernández MD [place] [facility] [place]: Toe [employer] [id number] / / Plate Mtpj - [id number] Implanted:Qty: 1 on 02/01/2022 by Bao Hernández MD [place] [facility] Right: Foot [employer] [id number] / / Screw Locking 2.7x10mm - [id number] Implanted:Qty: 2 on 02/01/2022 by Bao Hernández MD at [place] [facility] [place]: Foot [employer] [id number] / / Screw Locking 2.7x12mm - [id number] Implanted:Qty: 3 on 02/01/2022 by Bao Hernández MD at [place] [facility] [place]: Foot [employer] [id number] / / Screw Locking 2.7x14mm - [id number] Implanted:Qty: 1 on 02/01/2022 by Bao Hernández MD at [place] [facility] Right: Foot [employer] [id number] / / Screw [employer] 2.3bgg60mj - [id number] Implanted:Qty: 1 on 02/01/2022 by Bao Hernández MD [place] [facility] Right: Toe [employer] [id number] / / Port Implant W/8f Poly Cath - [id number] Implanted:Qty: 1 on 06/02/2022 by Lawrence Cat DO at OR [facility] Right: Chest CR BARD : PERIPHERAL VASCULAR [id number] 05/12/2023 [id number] / / [id number] documented as of this encounter Visit Diagnoses Diagnosis Morbid obesity due to excess calories (HCC)- Primary Recurrent falls Personal history of fall Recurrent chest pain Chest pain, unspecified 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 Conversion disorder History of DVT (deep vein thrombosis) Personal history of venous thrombosis and embolism History of pulmonary embolism Personal history of pulmonary embolism Toe infection Unspecified local infection of skin and subcutaneous tissue Chronic migraine without aura, not intractable, without status migrainosus- Primary Chronic pain syndrome Spina bifida of lumbar region, unspecified hydrocephalus presence (HCC) Bladder spasm Other specified disorders of bladder Chronic complete spastic paraplegia (HCC) Spinal stenosis of lumbosacral region Spinal stenosis, lumbar region, without neurogenic claudication Lumbar radiculopathy Thoracic or lumbosacral neuritis or radiculitis, unspecified documented in this encounter Advance Directives Documents on File Type Date Recorded Patient Medicaid Collection Specialist Expl anation KUSUM 12/03/2020 KUSUM DIETRICH ROSA ORDERS FOR LIFE-SUSTAINING TREATMENT * Full Code (Latest Code Status on File) Date Activated Date Inactivated Comments 12/29/2023 7:29 AM 12/29/2023 2:15 PM This order r eflects the patients wishes and were consensually agreed upon. Question Answer Comments Discussion of Advance Direct mikal occurred with: Not Discussed due to patient's condition * Full Code Date Activated Date Inactivated Comments 07/08/2023 4:17 [...] Relationship Communication Nirosana Mancini Grandparent [facility] Health Care Agent Andria Addison Mother Emergency Contact Care Teams Peanut Blancher Relationship Specialty Start Date End Date Sarah Miranda PA-C [address] [phone] PCP - General Physician Fitness Coach 09/06/23 documented as of this encounter
--- OUTSIDE RECORDS SUMMARY | 2024-08-22 20:50 | External Medical Summary | Summary of Care ---
Author Name Unknown Organization 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 FE DERISOMALTOSE 10 MG Radha Espinoza CRNP [address] [place] [address] Phone: tel: fax: Hematology/Oncology Treatment, [address] [address] Phone: tel: fax: Referral ID Status Reason Start Date Expiration Date V isits Requested Visits Authorized [id number] Authorized 07/24/2024 07/24/2025 [id number] Encounter Details Date Type Department Care Team (Latest Contact Info) Description 07/27/2024 11:30 AM EST Hem/Onc Treatment Hematology/Oncology Treatment, [facility] [address] [facility] LUCYMICHAEL FELDMAN [address] [facility], Chair5 Hem Onc [address] [place] [address] [place] [address] Vaginal candidiasis*; Iron deficiency anemia due to chronic blood loss Allergies Active Allergy Reactions Criticality Noted Date [...] said itching Latex Itching 09/26/2013 Linezolid 10/23/2014 [place] Other (Please comment) High 12/29/2014 Became unresponsive [...] as of this encounter (statuses as of 08/21/2024) Medications docusate sodium (COLACE) 100 MG Capsule Take 1 Cap by mouth 2 times a day. 68 Cap 018 Active calcium CARBonate (TUMS E-X) 750 MG chewable tablet Take 1 Tab by mouth 2 times a day as needed for Heartburn. 90 Tab 020 Active Acetaminophen 500 MG Oral Tablet Take 2 Tablets by mouth every 6 hours. Active Oxybutynin Chloride 5 MG Oral Tablet (Ditropan) TAKE 1 TABLET BY MOUTH EVERY 8 HOURS NEEDED FOR BLADDER SPASMS 90 Tablet 6 023 Active Tolterodine Tartrate ER 2 MG Oral Capsule Extended Release 24 Hour (Detrol LA) TAKE ONE CAPSULE BY MOUTH ONCE DAILY IN THE MORNING 30 Capsule 6 023 Active Lurasidone HCl 40 MG Oral Tablet (Latuda) Take 1 Tablet by mouth every evening. With a meal 023 Active Topiramate 50 MG Oral Tablet (topAMAX) Take 1 Tablet by mouth in the morning and 1 Tablet before bedtime. Active Baclofen 20 MG Oral Tablet TAKE 1 TABLET BY MOUTH IN THE MORNING, NOON, EVENING AND BEDTIME 360 Tablet 024 Active Naloxone HCl 4 MG/0.1ML Nasal Liquid (Narcan Nasal) Administer 1 spray into 1 nostril for suspected opioid overdose. Seek immediate medical attention. [email or web address] 1 Each 3 024 Active Cyclobenzaprine HCl 10 MG Oral Tablet (Flexeril) Take 1 Tablet by mouth in the morning and 1 Tablet at noon and 1 Tablet before bedtime. 024 Active hydrOXYzine HCl 50 MG Oral Tablet Take 1 Tablet by mouth 3 times a day as needed. 024 Active Linzess 145 MCG Oral Capsule (linaCLOtide)In dications:Const ipation, unspecified constipation type Take 1 Capsule by mouth daily before breakfast. 30 Capsule 11 024 Active OneTouch Verio w/Device KitIndications: Prediabetes,Hyp oglycemia Use up to 3 times per day E16.2 1 Kit 024 Active Glucose Blood In Vitro Strip (OneTouch Ultra Blue)Indication s:Prediabetes,H ypoglycemia E16.2 100 Strip 2 024 Active OneTouch Delica Lancets 33G Use up to 3 times daily E16.2 024 Active OneTouch Verio In Vitro Strip (Glucose Blood)Indicatio ns:Hypoglycemia Use up to 3 times daily E16.2 100 Strip 11 024 Active Diclofenac Sodium 1 % External Gel (Voltaren)Indic ations:Chronic pain of left knee Apply 4 g topically to affected area 4 times a day as needed for Pain. 100 g Active Phenazopyridine HCl 200 MG Oral Tablet (Pyridium)Indic ations:Bladder spasm Take 1 Tablet by mouth in the morning and 1 Tablet at noon and 1 Tablet before bedtime. For pain.. 30 Tablet Active Glucose 4 GM Oral Tablet ChewableIndicat ions:Postsurgic al malabsorption, not elsewhere classified Take one tablet by mouth as directed for low blood glucose < 80 100 Tablet Active Polyethylene Glycol 3350 17 GM/SCOOP Oral Powder (MiraLax) Take 17 g by mouth in the morning. 255 g 1 Active busPIRone HCl 7.5 MG Oral Tablet (Buspar)Indicat ions:Anxiety Take 1 Tablet by mouth in the morning and 1 Tablet in the evening. Active Onabotulinumtox Eladio 100 UNIT Injection Solution Reconstituted (Botox) 2 Each 3 024 2024 Active Alum & Mag Hydroxide-Simet h 200-200-20 MG/5ML Oral Suspension (Maalox Max)Indications :Abdominal pain, generalized Take 10 mL by mouth every 6 hours as needed for Indigestion. 355 mL 1 Active Additional Information Patient not taking.Reported on 07/20/2024 Apixaban 5 MG Oral Tablet (Eliquis)Indica tions:History of DVT (deep vein thrombosis),His tory of pulmonary embolism Take 1 Tablet by mouth in the morning and 1 Tablet before bedtime. 180 Tablet 2 Active FLUoxetine HCl 60 MG Oral Tablet Take 1 Tablet by mouth in the morning. In the morning.. Active Mirtazapine 15 MG Oral Tablet (Remeron) Take 1 Tablet by mouth every night at bedtime. Active Myrbetriq 50 MG Oral Tablet Extended Release 24 Hour TAKE ONE TABLET (50 MG) BY MOUTH ONCE DAILY IN THE MORNING Active Omeprazole 40 MG Oral Capsule Delayed Release (PriLOSEC)Indic ations:Gastroes ophageal reflux disease with esophagitis without hemorrhage Take 1 Capsule by mouth in the morning and 1 Capsule in the evening. 180 Capsule 1 024 Active Emgality 120 MG/ML Subcutaneous Solution Auto-injector (Galcanezumab-g [employer]) Inject 1 mL (1 pen) under the skin Every Month. After completion of loading dose. 1 mL 4 07/26/19 25 7:47 AM EST 025 Active Nystatin 525662 UNIT/GM External Powder (Nystop) Apply topically to affected area 3 times a day. 60 g 1 025 Active Sucralfate 1 GM Oral Tablet (Carafate) Take 1 Tablet by mouth in the morning and 1 Tablet at noon and 1 Tablet in the evening and 1 Tablet before bedtime. Crush and dissolve tablet in 1 Tbsp (15 mL) of Maalox before ingestion.. 360 Tablet 025 Active Cetirizine HCl 10 MG Oral Tablet (ZyrTEC)Indicat ions:Seasonal allergies Take 1 Tablet by mouth in the morning. 90 Tablet 3 025 Active Onabotulinumtox Eladio 100 UNIT Injection Solution Reconstituted (Botox) Inject 300 units intramuscularly into dytonic areas as well as head and neck for migraines every 3 months 3 Each 3 025 Active Ipratropium-Alb uterol 0.5-2.5 (3) MG/3ML Inhalation Solution (Duoneb)Indicat ions:Intermitte nt asthma with reliever use up to twice per week with acute exacerbation Inhale 3 mL via nebulizer every 6 hours as needed for Shortness of Breath or Wheezing. 360 mL 1 025 Active Albuterol Sulfate HFA 108 (90 Base) MCG/ACT Inhalation Aerosol SolutionIndicat ions:Intermitte nt asthma with reliever use up to twice per week with acute exacerbation,Wh eezing INHALE 2 puffs BY MOUTH EVERY 4 HOURS NEEDED FOR wheezing 8.5 g 1 025 Active Benzonatate 100 MG Oral Capsule (Tessalon Perltialo)Indicati ons:Intermitten t asthma with reliever use up to twice per week with acute exacerbation,In fluenza A Take 1 Capsule by mouth 3 times a day as needed for Cough. Do not cut, crush, or chew. 30 Capsule 025 Active Prazosin HCl 1 MG Oral Capsule (Minipress)Theresa cations:HTN, goal below 140/90 Take 2 Capsules by mouth at bedtime. 180 Capsule 3 025 Active ZOLMitriptan 5 MG Oral Tablet (Zomig) 1 at onset of migraine may repeat in 2 hours max 2 doses in 24 hours 10 Tablet 5 024 2024 Discontinued Potassium Chloride ER 10 MEQ Oral Tablet Extended Release (Klor-Con 10) Take 1 Tablet by mouth daily as needed (if taking Lasix). 20 Tablet 024 2024 Discontinued Loperamide HCl 2 MG Oral Capsule (Imodium)Indica tions:Diarrhea, unspecified type Take 1 Capsule by mouth 4 times a day as needed for Diarrhea. 20 Capsule 04/09/20 24 5:22 PM EDT 024 2024 Discontinued(R efill) Losartan Potassium 25 MG Oral Tablet (Cozaar)Indicat ions:HTN, goal below 140/90 TAKE 1 TABLET BY MOUTH IN THE MORNING 30 Tablet 5 024 2024 Discontinued(R efill) diazePAM 2 MG Oral Tablet (Valium) Take 1 tablet three times daily. 90 Tablet 024 2024 Discontinued Fluticasone Propionate 50 MCG/ACT Nasal Suspension (Flonase)Indica tions:Nasal congestion Administer 2 Sprays into each nostril in the morning. 18.2 mL 1 024 2024 Discontinued(R efill) Galcanezumab-gn lm 120 MG/ML Subcutaneous Solution Auto-injector (Emgality) Inject 240 mg (2 pens) under the skin once for loading dose. 2 mL 06/26/19 25 7:55 AM EST 2024 Discontinued(P atient preference/dis continuation) Ondansetron HCl 4 MG Oral Tablet (Zofran)Indicat ions:Nausea Take 1 Tablet by mouth every 8 hours as needed for Nausea or Vomiting. 30 Tablet 1 025 2024 Discontinued(R efill) Oseltamivir Phosphate 75 MG Oral Capsule (Tamiflu)Indica tions:Influenza A Take 1 Capsule by mouth in the morning and 1 Capsule before bedtime. Do all this for 5 days. For 5 days.. 10 Capsule 025 2024 Discontinued(P atient preference/dis continuation) Micafungin IV (AMBULATORY)Ind ications:Vagina l candidiasis Administer 100 mg intravenously daily for 10 days. 100 mg 9 025 2024 Discontinued(P atient preference/dis continuation) Prochlorperazin e Maleate 5 MG Oral Tablet (Compazine)Theresa cations:Nausea Take 1 Tablet by mouth every 6 hours as needed for Nausea. 30 Tablet 025 2024 Discontinued(R efill) oxyCODONE HCl 5 MG Oral Tablet (Oxy IR)Indications: Chronic pain syndrome,Spina bifida of lumbar region, unspecified hydrocephalus presence (HCC),Bladder spasm,Chronic complete spastic paraplegia (HCC),Spinal stenosis of lumbosacral region Take 1 Tablet by mouth every 4 hours as needed for Pain, Severe. 42 Tablet 025 2024 Discontinued(R efill) Hospital, Clinic, or Other Facility Administered Medication Ordered Dose Route Frequency Start Date End Date Status vitamin b-12 (Cyanocobalamin) inj 1,000 mcgIndications:S/P gastric bypass 1000 mcg IM [id number] 08/30/2023 06/03/2026 Active cefTRIAXone (Rocephin) (350 mg/mL) inj dilution 1,000 mgIndications:Urinary tract infection without hematuria, site unspecified 1000 mg IM Q24H 06/01/2024 Active cefTRIAXone (Rocephin) (350 mg/mL) inj dilution 1,000 mgIndications:Urinary tract infection associated with catheterization of urinary tract, unspecified indwelling urinary catheter type, subsequent encounter 1000 mg IM Q24H 06/02/2024 Active documented as of this encounter (statuses as of 08/21/2024) Active Problems Problem Noted Date Diagnosed Date Iron deficiency anemia due to chronic blood [...] 11/16/2022 Intestinal postoperative nonabsorption 3 Dehydration 05/11/2022 Overview (10/19/2022): historical S/P gastric bypass 05/07/2022 Bipolar disorder, curr episo de depressed, severe, w/psychotic features 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 [place] atypical for ACS. ED workup neg for [...] & Plan: Primary reason for transfer from [facility] to [facility] rehab. C/o LE weakness and acute/chronic low back pain. Lumbar spine MRI reportedly performed @ [facility], not available for review Pt denies receiving steroid injections D/C IV dilaudid. Resume PO hydromorphone 4mg in setting of subjected acute on chronic low back pain, foot pain and now chest pain Encourage use of tylenol 1000mg or ibuprofen 600mg PRN Chronic suprapubic catheter 05/31/2014 Overview (05/31/2014): Placed 05/26 @ [facility] by interventional radiology for urinary retention and rayo intolerance; change every 3 months Vitamin D deficiency 04/05/2012 Premature menopause 10/23/2011 Overview (01/31/2013): 2011 surgical [facility] BSO for benign reasons (menorrhagia) Hyperinsulinemia 09/27/2008 Overview (09/16/2009): 09/20 held metformin due to anion Gap acidosis inpatient (multifactorial:cdiff, metfromin, vomitting) Irritable bowel syndrome wit h both constipation and diarrhea 08/29/2006 Overview (08/29/2006): Dicyclomin qid started by [place] Displacement of lumbar inter vertebral disc without myelopathy 03/03/2006 Overview (09/15/2015): Rigth L5-S1. [place] injections. Did not help. For discectomy at [facility] 08/31/06. Had subsequent MRSA graft [...] 01/23: sees Dr. Mock (spine surgeon) @ [facility] 10/24: lumbar spinal surgery by [...] as of this encounter (statuses as of 08/21/2024) Resolved Problems Problem Noted Date Diagnosed Date [...] contraindication to starting her on opioids." [facility] discharge 10/04/15: patient exhibiting behavior [...] 06/07/2014 Overview (06/07/2014): Pain contract established with [facility] 05/26 - give valium 5 mg [...] Overview (01/04/2014): Cysto neg 05/21/13. Following with [facility] urology Miri CERVANTES as of 09/26/2013. Resolved s/p laminectomy L4-S1 October 2013 @ [facility] [address] Dr. Heard. Assessment & Plan (05/07/2022 [...] persistent 12/08/200910/11 Overview (05/31/2014): Per Asthma Taxonomy, Advair, yasmany PFT 04/30/14: normal Acidosis 09/16/2009 02/02/2018 Overview [...] 03/27: followed by Mauricio THOMPSON @ [facility] DIRECTIVE INFORMATION 11/17/2004 08/06/2022 Overview (11/17/2004): No, Advance Directive brochure offered , patient declined. Allergic rhinitis 11/24/2001 11/30/2018 Overview (08/03/2011): zyrtec Fatty liver 08/06/2022 Chronic sinusitis 11/30/2018 Overview (10/20/2015): frequent documented as of this encounter (statuses as of 08/21/2024) Immunizations Name Administration Dates Next Due COVID-19 mRNA, LNP-s, No Pre serve, 2-Dose Series (Pfizer) 06/25/2021,12/13/2020,11/15/2020 COVID-19, MRNA-LNP, PF, 30 M CG/0.3 mL, 12 YRS AND ABOVE, IM (PFIZER-Comirnaty) 03/29/2023 Covid-19, Mrna, Lnp-s, Pf, B ivalent, 30 Mcg, IM, 12 yrs and above (Pfizer) 06/17/2022 H1N1 2009 Influenza, IM 05/27/2009 Pneumococcal Conjugate Vacci ne, 20-valent ([id number]) 12/15/2021 Pneumococcal Polysaccharide PPV23 (Pneumovax) 05/01/2008 Seasonal [...] Date Recorded PHQ Adult Total Score 0 06/29/2024 Hunger Vital Sign Answer Date Recorded Within the past 12 months, y ou worried that your food would run out before you got the money to buy more. Never true 11/14/19 24 Within the past 12 months, t he food you bought just didn't last and you didn't have money to get more. Never true 11/14/2023 Childcare Answer Date Recorded Do you feel overwhelmed with taking care of a child, family member or friend? No 11/14/2023 Does your family need help f inding childcare? (Household - for ages 0-17 years) Not on file 11/14/2023 Clothing Answer Date Recorded Have you been unable to get clothing when it was really needed? No 11/14/2023 Is your family able to get c lothes or diapers when needed? (Household - for ages 0-17 years) Not on file 11/14/2023 Personal Safety Answer Date Recorded Do you feel unsafe or have concerns for your saf ety? No 11/14/2023 Do you have concerns for you r family's safety? (Household - for ages 0-17 years) Not on file 11/14/2023 Utilities Answer Date Recorded Do you have trouble paying y our heating, water, or electric bill? No 11/14/2023 Is your family able to pay t he heat, water, or electric bill? (Household - for ages 0-17 years) Not on file 11/14/2023 Does your family have access to good internet? (Household - for ages 0-17 years) Not on file 11/14/2023 Employment Status Answer Date Recorded Are you unemployed or without regular income? No 11/14/2023 Does the household have a re gular source of income? (Household - for ages 0-17 years) Not on file 11/14/2023 Social Connections Answer Date Recorded How often do you feel lonely or isolated from th ose around you? Never 11/14/2023 Financial Resource Strain Answer Date R ecorded Do you have any trouble payi ng for your medications, or do you think you might in the future? No 11/14/2023 Does your family have troubl e paying for medicine? (Household - for ages 0-17 years) Not on file 11/14/2023 Transportation Needs Answer Date Record ed READ ONLY Do you have troubl e getting a ride to medical visits or work? Never True 11/14/2023 Does your family have a hard time getting a ride to doctors visits? (Household - for ages 0-17 years) Not on file 11/14/2023 Has lack of transportation k ept you from medical appointments, meetings, work, or from getting things needed for daily living? Check all that apply. (Adult - for ages 18 years and over) Not on file 11/14/2023 Do you (or your family) have trouble finding or paying for a ride (transportation)? (Household - for ages 0-17 years) Not on file 11/14/2023 Housing Stability Answer Date Recorded Do you currently live in a s helter or have no steady place to sleep at night? No 11/14/2023 READ ONLY Do you think you a re at risk of becoming homeless? No 11/14/2023 Does your family worry about paying for your home or becoming homeless? (Household - for ages 0-17 years) Not on file 0 11/14/2023 Are you homeless or worried that you might be in the future? (Adult - for ages 18 years and over) Not on file Are you (or your family) chris eless [...] the money to buy more. Never true 11/14/19 24 Within the past 12 months, t he food you bought just didn't last and you didn't have money to get more. Never true 11/14/2023 Do you need food for this week? No 11/14/2023 Comments No Sex and Gender Information Value [...] n file documented as of this encounter Last Filed Vital Signs Vital Sign Reading Time Taken Comments Blood Pressure 132/76 07/27/2024 1:11 PM EST Pulse 87 07/27/2024 1:11 PM EST Temperature 37.1 C (98.8 F) 07/27/2024 1:11 PM ES T Respiratory Rate 18 07/27/2024 1:11 PM EST Oxygen Saturation 97% 07/27/2024 11:31 AM EST Inhaled Oxygen Concentration - - Weight - - Height - - Body Mass Index - - documented in this encounter Functional Status * Are you [...] Heather Valle RN documented in this encounter Nursing Notes * Blanca Younger RN - 07/27/2024 1:50 PM EST VAD flushed with 10 ml NSS and Heparin 5 ml (100 units/ml). Zuniga needle removed intact. Patient left IVC by wheelchair. Accompanied by caregiver. Voiced no complaints. Blanca Younger RN 07/27/2024 1:50 PM * Yudith Wadsworth RN - 07/27/2024 1:12 PM EST Pt tolerated monoferric infusion without any reported reaction or side effects. Vss. Pt on 30 minute observation period Yudith Navarro RN - 07/27/2024 11:45 AM EST Pt in bay#8 present for micofungin and monoferric infusion. Patient instructed on use of heat and massage functions where applicable. Patient shown how to operate the heat function of the chair and to alert nursing staff if the chair feels too warm. Patient instructed on the risk of potential brothers while using the heat function. [facility] Nursing Care Plan ID is not set. 07/27/2024 Knowledge Deficit Patient and Caregiver will demonstrate understanding. Assess current knowledge base. Assess level of understanding. Complete patient and caregiver learning assessment. Document Education in EHR. Reinforce education. Teach at level of understanding. Teach via preferred learning methods. Utilize teach back methodology. Goals: pt will be able to verbalize side effects of monoferric infusion Possible barriers to meeting goals: none Stability of the patient: Moderately stable - low risk of patient condition declining or worsening Summary regarding today's goals: Met: pt able to verbalize side effects of monoferric Yudith R Treaster, RN documented in this encounter Plan of Treatment Upcoming Encounters Date Type Department Care Team (Late st Contact Info) Description 08/29/2024 1:00 PM EDT Office Visit [facility] [address] [place] [phone] Sarah Saavedra PA-C [address] [place] [address] 09/12/2024 10:22 AM EDT Hospital Encounter [facility], Operating Room [facility] [address] [place] [phone] Edwardo Arias, [address] [phone] 09/12/2024 10:22 AM EDT - 09/12/2024 10:41 AM EDT Surgery [facility], Operating Room [facility] [address] [place] [phone] Edwardo Arias, [address] [phone] INJECTION SPINE LUMBAR OR SACRAL 09/17/2024 1:15 PM EDT Office Visit [facility] [address] [place] [phone] Windy Haley PA-C [address] [place] [address] 09/18/2024 10:20 AM EDT Office Visit Infectious Disease, [address] [phone] Radha Fuentes MD [address] [place] [address] 10/03/2024 10:40 AM EDT Office Visit Family [facility] [address] [place] [address] Lizet Briseno MD [address] [place] [address] 10/03/2024 3:40 PM EDT [facility] [address] [place] [address] Maureen Bowie MD [address] [place] [address] 10/12/2024 10:30 AM EDT Nurse Only Hematology/Oncolog y Treatment, [address] [phone] Glh, Chair10 Hem Onc [address] [place] [address] [phone] 10/15/2024 3:00 PM EDT Telemedicine [facility], [address] [phone] Amadou Rene CRNP [address] [place] [address] 10/16/2024 2:30 PM EDT Office Visit Hematology/Oncolog y, [address] [phone] Rdaha Espinoza CRNP [address] [place], [place] [phone] 01/21/2025 8:30 AM EDT Office Visit Urology, [place] [address] [place] [address] Nadir Foy MD [address] [place] [address] 03/28/2025 9:45 AM EDT Office Visit General Surgery, [facility] [address] [place] [address] Manolo Beckett MD [address] [facility] [place] [address] Scheduled Procedures Name Priority Associated Diagnoses Date/Ti me INJECTION SPINE LUMBAR OR SACRAL Lumbar radiculopathy 09/12/2024 10:22 AM EDT Health Maintenance Due Date Last Done Comments COVID-19 Vaccine (2023- season) 2024 03/29/2023, 06/17/2022, 06/25/2021, Additional history [...] this encounter Medical Devices Implanted Type Area Supplier Quality Specialist Device Identifier Shelf Expiration Date Model / Serial / Lot Plate Small Mtpj - [id number] Implanted:Qty: 1 on 11/15/2017 by Cristobal Calvillo MD at [facility] Left: Foot [id number] / / Screw Locking 2.7x14mm - [id number] Implanted:Qty: 1 on 11/15/2017 by Cristobal Calvillo MD at [place] [facility] Left: Foot / / 2.7 X 16mm Locking Screw Implanted:Qty: 2 on 11/15/2017 by Cristobal Calvillo MD at OR [facility] Left: Foot [employer] / / 2.7 X 20 Locking Screw Implanted:Qty: 1 on 11/15/2017 by Cristobal Calvillo MD at OR [facility] Left: Foot [employer] / / 2.7 X 18mm Locking Screw Implanted:Qty: 1 on 11/15/2017 by Cristobal Calvillo MD at OR [facility] Left: Foot [employer] / / Screw Locking 2.7x10mm - [id number] Implanted:Qty: 1 on 11/15/2017 by Cristobal Calvillo MD at OR [facility] Left: Foot [employer] / / 4.0mm X 44 Mm Compression Screw Implanted:Qty: 1 on 10/09/2018 by Bao Hernández MD at OR [facility] Left: Foot AR-8740-44 H / / Description:Implant from set 2.5x30 Compression Screw Implanted:Qty: 1 on 10/09/2018 by Bao Hernández MD at OR [facility] Left: Foot [employer] AR-8725-30 H / / Screw [employer] 2.8mud90ph - [id number] Implanted:Qty: 2 on 02/01/2022 by Bao Hernández MD at OR [facility] Right: Toe [employer] [id number] / / Plate Mtpj - [id number] Implanted:Qty: 1 on 02/01/2022 by Bao Hernández MD at OR [facility] Right: Foot [employer] [id number] / / Screw Locking 2.7x10mm - [id number] Implanted:Qty: 2 on 02/01/2022 by Bao Hernández MD at OR [facility] Right: Foot [employer] [id number] / / Screw Locking 2.7x12mm - [id number] Implanted:Qty: 3 on 02/01/2022 by Bao Hernández MD at OR [facility] Right: Foot [employer] / / Screw Locking 2.7x14mm - [id number] Implanted:Qty: 1 on 02/01/2022 by Bao Hernández MD at OR [facility] Right: Foot [employer] / / Screw [employer] [id number] - [id number] Implanted:Qty: 1 on 02/01/2022 by Bao Hernández MD at OR [facility] [place] [facility] Right: Toe EXACTECH [id number] / / Port Implant W/8f Poly Cath - [id number] Implanted:Qty: 1 on 06/02/2022 by Lawrence Cat DO at OR [facility] Right: Chest CR BARD : PERIPHERAL VASCULAR [id number] 05/12/2023 [id number] / / [id number] documented as of this encounter Visit Diagnoses [...] aura, not intractable, without status migrainosus- Primary Vaginal candidiasis- Primary Candidiasis of vulva and vagina Iron deficiency anemia due to chronic blood loss Iron deficiency anemia secondary to blood loss (chronic) Lumbar radiculopathy Thoracic or lumbosacral neuritis or radiculitis, unspecified documented in this encounter Administered Medications Inactive Administered Medications - up to 3 most recent administrations Medication Order MAR Action Action Date Dose Rate Site Ferric derisomaltose (Monoferric) 1,000 mg in NSS 250 mL ivpb 1,000 mg, IV Piggyback, ONCE, 1 dose, On Tue07/27/24 at 1200, Administer over 30 Minutes, DOSING GUIDELINES: For patient weight LESS THAN 50 kg: Dose 20 mg/kg For patient weight 50 Kg or greater: Dose 1000 mgIndications:Iron deficiency anemia due to chronic blood loss Start Infusion 07/27/2024 12:39 PM EST 1,000 mg 530 mL/hr hEParin 100 UNIT/ML Lock Flush inj 500 Units 500 Units (5 mL), IV Lock, PRN Other, IV Flush, Starting on Tue07/27/24 at 1127, Until Tue07/27/24 at 1751, For 24 hours, Do not flush if lock, PICC, or central line not in place; IV infusing or unable to flush.Indications:Vaginal candidiasis Given 07/27/2024 1:49 PM EST 500 Units Micafungin sodium (Mycamine) 100 mg in NSS 100 mL ivpb 100 mg, IV Piggyback, ONCE, 1 dose, On Tue07/27/24 at 1200, Administer over 60 Minutes, +++ IVC for Thursday 07/27 +++Indications:Vaginal candidiasis Start Infusion 07/27/2024 11:37 AM EST 100 mg 105 mL/hr NSS infusion Intravenous, at 50 mL/hr, PRN, Starting on Tue07/27/24 at 1230, Until Tue07/27/24 at 1751, Maintenance lineIndications:Iron deficiency anemia due to chronic blood loss Start Infusion 07/27/2024 11:33 AM EST 50 mL/hr sodium chloride 0.9 % flush central line 10 mL 10 mL, IV Push, PRN Other, IV Flush, Starting on Tue07/27/24 at 1127, Until Tue07/27/24 at 1751, For 24 hours, Do not flush if lock, PICC, or central line not in place; IV infusing or unable to flush.Indications:Vaginal candidiasis Given 07/27/2024 1:47 PM EST 10 mL sodium chloride 0.9 % flush central line 10 mL 10 mL, IV Push, PRN Other, IV Flush, Starting on Tue07/27/24 at 1128, Until Tue07/27/24 at 1751, For 24 hours, Do not flush if lock, PICC, or central line not in place; IV infusing or unable to flush.Indications:Iron deficiency anemia due to chronic blood loss Given 07/27/2024 11:30 AM EST 10 mL documented in this encounter Advance Directives Documents on File Type Date Recorded 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
--- OUTSIDE RECORDS SUMMARY | 2024-08-22 20:50 | External Medical Summary | Summary of Care ---
Author Name Unknown Organization [facility] Address [address] [place] [address] Phone [phone] Care Team Providers Care Pulmonary Function Technologist Name Role Phone Sarah Saavedra PA-C Primary Care Provider [phone] Encounter Details Date Type Department Care Team (Latest Contact Info) Description 08/03/2024 1:15 PM EST Hem/Onc Treatment Hematology/Oncology Treatment, [address] [phone] [facility], Chair Hem Onc [address] [place] [id number] Vaginal candidiasis* Allergies Active Allergy Reactions Criticality Noted Date [...] said itching Latex Itching 09/26/2013 Linezolid 10/23/2014 [place] Other (Please comment) High 12/29/2014 Became unresponsive [...] suspected opioid overdose. Seek immediate medical attention. [email or web address] 1 Each 3 024 Active Cyclobenzaprine HCl [...] day as needed for Pain. 100 g 024 Active Phenazopyridine HCl 200 MG Oral Tablet (Pyridium)Indic ations:Bladder spasm Take 1 Tablet by mouth in the morning and 1 Tablet at noon and 1 Tablet before bedtime. For pain.. 30 Tablet 024 Active Glucose 4 GM Oral Tablet ChewableIndicat ions:Postsurgic al malabsorption, not elsewhere classified Take one tablet by mouth as directed for low blood glucose < 80 100 Tablet 024 Active Polyethylene Glycol 3350 17 GM/SCOOP Oral Powder (MiraLax) Take 17 g by mouth in the morning. 255 g 1 024 Active busPIRone HCl 7.5 MG Oral Tablet [...] Capsule in the evening. 180 Capsule 1 Active Emgality 120 MG/ML Subcutaneous Solution Auto-injector (Galcanezumab-g [facility]) Inject 1 mL (1 pen) under the skin Every Month. After completion of loading dose. 1 mL 4 07/26/19 25 7:47 AM EST 025 Active Nystatin 974385 UNIT/GM External Powder (Nystop) Apply topically to affected area 3 times a day. 60 g 1 Active Sucralfate 1 GM Oral Tablet (Carafate) [...] 025 Active Benzonatate 100 MG Oral Capsule (Tessalfelecia Sherwood)Indicati ons:Intermitten t asthma with reliever use up to twice per week with acute exacerbation,In fluenza A Take 1 Capsule by mouth 3 times a day as needed for Cough. Do not cut, crush, or chew. 30 Capsule 025 Active Prazosin HCl 1 MG Oral Capsule (Minipress)Theresa cations:HTN, goal below 140/90 Take 2 Capsules by mouth at bedtime. 180 Capsule 3 025 Active Prochlorperazin e Maleate 10 MG Oral Tablet (Compazine)Theresa cations:Nausea Take 1 Tablet by mouth 2 times a day as needed for Nausea. 60 Tablet 1 025 Active Ondansetron HCl 4 MG Oral Tablet (Zofran)Indicat ions:Nausea Take 1 Tablet by mouth every 8 hours as needed for Nausea or Vomiting. 30 Tablet 1 025 Active ZOLMitriptan 5 MG Oral Tablet (Zomig) 1 at onset of migraine may repeat in 2 hours max 2 doses in 24 hours 10 Tablet 5 12/05/ 024 2024 Discontinued Loperamide HCl 2 MG Oral Capsule (Imodium)Indica tions:Diarrhea, unspecified type Take 1 Capsule by mouth 4 times a day as needed for Diarrhea. 20 Capsule 04/09/20 24 5:22 PM EDT 024 2024 Discontinued(R efill) Losartan Potassium 25 MG Oral Tablet (Cozaar)Indicat ions:HTN, goal below 140/90 TAKE 1 TABLET BY MOUTH IN THE MORNING 30 Tablet 5 024 2024 Discontinued(R efill) Nitrofurantoin Monohyd Macro 100 MG Oral Capsule (Macrobid) TAKE 1 CAPSULE BY MOUTH TWICE DAILY FOR 7 days - must administer with a meal/food 025 2024 Discontinued(P atient preference/dis continuation) Hospital, Clinic, or Other Facility Administered Medication Ordered Dose Route Frequency Start Date End Date Status vitamin b-12 (Cyanocobalamin) inj 1,000 mcgIndications:S/P gastric bypass 1000 mcg IM [id number] 08/30/2023 06/03/2026 Active cefTRIAXone (Rocephin) (350 mg/mL) [...] episo de depressed, severe, w/psychotic features 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 [place] atypical for ACS. ED workup neg for [...] from [facility] to [facility] rehab. C/o LE weakness and acute/chronic [...] catheter 05/31/2014 Overview (05/31/2014): Placed 05/26 @ [facility] 08/13/2020 04/04/2023 Overview (03/13/2024): Managed by Maureen Bowei MD To view the Medication Usage Agreement, [...] a contraindication to starting her on opioids." [facility] discharge 10/04/15: patient exhibiting behavior of [...] 06/07/2014 Overview (06/07/2014): Pain contract established with [facility] ED 05/26 - give valium 5 [...] Overview (01/04/2014): Cysto neg 05/21/13. Following with [facility] urology Miri CERVANTES as of 09/26/2013. Resolved s/p laminectomy L4-S1 October 2013 @ [place] [address] Heard. Assessment & Plan (05/07/2022 [...] 12/08/200910/11 Overview (05/31/2014): Per Asthma Taxonomy, Advair, singulair PFT 04/30/14: normal Acidosis 09/16/2009 02/02/2018 Overview [...] wellbutrin 03/27: followed by Mauricio THOMPSON @ [facility] DIRECTIVE INFORMATION 11/17/2004 08/06/2022 Overview (11/17/2004): [...] IM 05/27/2009 Pneumococcal Conjugate Vacci ne, 20-valent (Queyekd21) 12/15/2021 Pneumococcal Polysaccharide PPV23 (Pneumovax) 05/01/2008 Seasonal [...] 11/14/2023 Does the household have a re lar [...] Sign Reading Time Taken Comments Blood Pressure 130/74 08/03/2024 1:29 PM EST Pulse 82 08/03/2024 1:29 PM EST Temperature 36.4 C (97.5 F) 08/03/2024 1:29 PM ES T Respiratory Rate 18 08/03/2024 1:29 PM EST Oxygen Saturation - - Inhaled Oxygen Concentration - - Weight - [...] documented in this encounter Nursing Notes * Jing Vila RN - 08/03/2024 2:54 PM EST Patient tolerated infusion today without any difficulty. Her PCP had instructed patient to go to the ER after her infusion to see if they thought she neededmore IV antibiotics. VAD flushed with 10 ml NSS and Heparin 5 ml (100 units/ml). Zuniga needle left intact for patient togo down to the ER. Green cap placed on the end. Patient left IVC by wheelchair. Accompanied by Friend. Voiced no complaints. Jing Vila RN 08/03/2024 2:55 PM documented in this encounter Plan of Treatment Upcoming Encounters Date Type Department Care Team (Late st Contact Info) Description 08/29/2024 1:00 PM EDT Office Visit [facility] [address] [place] [phone] Sarah Saavedra PA-C 21 [facility] [place] [address] 09/12/2024 10:22 AM EDT Hospital Encounter [facility] Operating Room [facility] [address] [place] [phone] Edwardo Arias, DO 400 [facility] [place] [phone] 09/12/2024 10:22 AM EDT - 09/12/2024 10:41 AM EDT Surgery OR [facility], Operating Room [facility] [address] [place], [place] [address] [address] Edwardo Arias, DO [facility] [phone] INJECTION SPINE LUMBAR OR [facility] 09/17/2024 1:15 PM EDT Office Visit Orthopaedics Angelia Ayala [address] [phone] Windy Haley PA-C 16 [place] [address] 09/18/2024 10:20 AM EDT Office Visit Infectious Disease, [address] [phone] Radha Fuentes MD 100 [place] [address] 10/03/2024 10:40 AM EDT Office Visit [facility] [address] [place] [address] Lizet Briseno MD [address] [place] [phone] 10/03/2024 3:40 PM EDT Office Visit Neurology[address] [address] Maureen Bowie MD 200 [place] [address] 10/12/2024 10:30 AM EDT Nurse Only Hematology/Oncolog y Treatment, [address] [address] Glh, Chair10 Hem Onc [address] [place] [address] 10/15/2024 3:00 PM EDT Telemedicine [facility], [address] [address] Amadou Rene CRNP [address] [place] [phone] 10/16/2024 2:30 PM EDT Office Visit Hematology/Oncolog y, [address] [address] Radha Espinoza CRNP 400 [place] [address] 01/21/2025 8:30 AM EDT Office Visit Urology, [place] [address] [place] [address] Nadir Foy MD [address] [place], [place] [phone] 03/28/2025 9:45 AM EDT Office Visit General Surgery, [facility] [address] [place] [address] Manolo Beckett MD [address] [place] [address] Scheduled Procedures Name Priority Associated Diagnoses [...] this encounter Medical Devices Implanted Type Area Inspector Missile Device Identifier Shelf Expiration Date Model / Serial / Lot Plate Small Mtpj - [id number] Implanted:Qty: 1 on 11/15/2017 by Cristobal Calvillo MD [place] [facility] [place] Foot [id number] / / Screw Locking 2.7x14mm - [id number] Implanted:Qty: 1 on 11/15/2017 by Cristobal Calvillo MD [place] [facility] [place]: Foot / / 2.7 X 16mm Locking Screw Implanted:Qty: 2 on 11/15/2017 by Cristobal Calvillo MD at [facility] Left: Foot [employer] [id number] / / 2.7 X 20 Locking Screw Implanted:Qty: 1 on 11/15/2017 by Cristobal Calvillo MD at [facility] Left: Foot [employer] [id number] / / 2.7 X 18mm Locking Screw Implanted:Qty: 1 on 11/15/2017 by Cristobal Calvillo MD [place] [facility] [place] Foot [employer] [id number] / / Screw Locking 2.7x10mm - [id number] Implanted:Qty: 1 on 11/15/2017 by Cristobal Calvillo MD at [place] [facility] [place]: Foot [employer] [id number] / / 4.0mm X 44 Mm Compression Screw Implanted:Qty: 1 on 10/09/2018 by Bao Hernández MD at [place] [facility] [place]: Foot AR-8740-44 H / / Description:Implant from set 2.5x30 Compression Screw Implanted:Qty: 1 on 10/09/2018 by Bao Hernández MD at [place] [facility] [place]: Foot [employer] AR-8725-30 H / / Screw [employer] 2.5inz87te - [id number] Implanted:Qty: 2 on 02/01/2022 by Bao Hernández MD at [place] [facility] Right: Toe EX[employer]ECH [id number] / / Plate Mtpj - [id number] Implanted:Qty: 1 on 02/01/2022 by Bao Hernández MD at [place] [facility] Right: Foot EX[employer]ECH [id number] / / Screw Locking 2.7x10mm - [id number] Implanted:Qty: 2 on 02/01/2022 by Bao Hernández MD at [place] [facility] [place]: Foot EX[employer]ECH [id number] / / Screw Locking 2.7x12mm - [id number] Implanted:Qty: 3 on 02/01/2022 by Bao Hernández MD at [place] [facility] [place]: Foot EX[employer]ECH 8107-9767 / / Screw Locking 2.7x14mm - [id number] Implanted:Qty: 1 on 02/01/2022 by Bao Hernández MD at [place] [facility] [place]: Foot EX[employer]ECH 9778-1499 / / Screw [employer] 2.3lru57ds - [id number] Implanted:Qty: 1 on 02/01/2022 by Bao Hernández MD at [place] [facility] [place]: Toe EX[employer]ECH [id number] / / Port Implant W/8f Poly Cath - [id number] Implanted:Qty: 1 on 06/02/2022 by Lawrence Cat DO at OR [facility] Right: Chest CR BARD : PERIPHERAL VASCULAR [id number] 05/12/2023 [id number] / / [id number] documented as of this encounter Visit Diagnoses [...] candidiasis- Primary Candidiasis of vulva and vagina Lumbar radiculopathy Thoracic or lumbosacral neuritis or radiculitis, unspecified documented in this encounter Administered Medications Inactive Administered Medications - up to 3 most recent administrations Medication Order MAR Action Action Date Dose Rate Site Micafungin sodium (Mycamine) 100 mg in NSS 100 mL ivpb 100 mg, IV Piggyback, ONCE, 1 dose, On Tue08/03/24 at 1345, Administer over 60 Minutes, +++ IVC for Thursday 08/03 +++Indications:Vaginal candidiasis Start Infusion 08/03/2024 1:35 PM EST 100 mg 105 mL/hr NSS infusion FOR HYDRATION Intravenous, at 50 mL/hr Administer over 10 Hours, CONTINUOUS, Starting on Tue08/03/24 at 1400, Until Tue08/03/24 at 1856Indications:Vaginal candidiasis Start Infusion 08/03/2024 1:33 PM EST 500 mL 50 mL/hr documented in this encounter Advance Directives Documents on File Type Date Recorded 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
--- OUTSIDE RECORDS SUMMARY | 2024-08-22 20:50 | External Medical Summary | Summary of Care ---
Author Name Unknown Organization [facility] Address [address] [place] [address] Phone [phone] Care Team Providers Care Linux Server Administrator Name Role Phone Sarah Saavedra PA-C Primary Care Provider [phone] [phone] Reason for Visit * Reason Comments Treatment micafungin Encounter Details Date Type Department Care Team (Latest Contact Info) Description 07/31/2024 12:45 PM EST Hem/Onc Treatment Hematology/Oncology Treatment, [address] [address] [facility] [employer], Chair6 Hem Onc [address] [place] [address] [phone] Hypoglycemia*; Vaginal candidiasis Allergies Active Allergy Reactions Criticality Noted Date [...] said itching Latex Itching 09/26/2013 Linezolid 10/23/2014 [place] Other (Please comment) High 12/29/2014 Became unresponsive [...] suspected opioid overdose. Seek immediate medical attention. https://[email or web address] [email or web address]/watch?v=[email or web address] [email or web address] 1 Each 3 024 Active Cyclobenzaprine HCl [...] Emgality 120 MG/ML Subcutaneous Solution Auto-injector (Galcanezumab-g [facility]) Inject 1 mL (1 pen) under the skin Every Month. After completion of loading dose. 1 mL 4 07/26/19 25 7:47 AM EST 025 Active Nystatin 250933 UNIT/GM External Powder (Nystop) Apply topically to affected area 3 times a day. 60 g 1 Active Sucralfate 1 GM Oral Tablet (Carafate) Take 1 Tablet by mouth in the morning and 1 Tablet at noon and 1 Tablet in the evening and 1 Tablet before bedtime. Crush and dissolve tablet in 1 Tbsp (15 mL) of Maalox before ingestion.. 360 Tablet Active Cetirizine HCl 10 MG Oral Tablet [...] Active Benzonatate 100 MG Oral Capsule (Tessalon Perlitalo)Indicati ons:Intermitten t asthma with reliever use up [...] 30 Tablet 5 024 2024 Discontinued(R efill) Fluticasone Propionate 50 MCG/ACT Nasal Suspension (Flonase)Indica tions:Nasal congestion Administer 2 Sprays into each nostril in the morning. 18.2 mL 1 024 2024 Discontinued(R efill) Galcanezumab-gn lm 120 MG/ML Subcutaneous Solution Auto-injector (Emgality) Inject 240 mg (2 pens) under the skin once for loading dose. 2 mL 06/26/19 25 7:55 AM EST 025 2024 Discontinued(P atient preference/dis continuation) Nitrofurantoin Monohyd Macro 100 MG Oral Capsule (Macrobid) TAKE 1 CAPSULE BY MOUTH TWICE DAILY FOR 7 days - must administer with a meal/food 025 2024 Discontinued(P atient preference/dis continuation) oxyCODONE HCl 5 MG Oral Tablet (Oxy [...] 1,000 mcgIndications:S/P gastric bypass 1000 mcg IM [id number] 08/30/2023 06/03/2026 Active cefTRIAXone (Rocephin) (350 mg/mL) [...] Referred to cardiology for workup--seen in Jul. [place] atypical for ACS. ED workup neg for [...] & Plan: Primary reason for transfer from [facility] to [facility] rehab. C/o LE weakness and acute/chronic low back pain. Lumbar spine MRI reportedly performed @ [facility], not available for review Pt denies receiving steroid injections D/C IV dilaudid. Resume PO hydromorphone 4mg in setting of subjected acute on chronic low back pain, foot pain and now chest pain Encourage use of tylenol 1000mg or ibuprofen 600mg PRN Chronic suprapubic catheter 05/31/2014 Overview (05/31/2014): Placed 05/26 @ [facility] by interventional radiology for urinary retention and [...] without myelopathy 03/03/2006 Overview (09/15/2015): Rigth L5-S1. [place] injections. Did not help. For discectomy at [facility] 08/31/06. Had subsequent MRSA graft Remove rods [...] 01/23: sees Dr. Mock (spine surgeon) @ [facility] 10/24: lumbar spinal surgery by Dr. Bob [...] a contraindication to starting her on opioids." [facility] discharge 10/04/15: patient exhibiting behavior of [...] 06/07/2014 Overview (06/07/2014): Pain contract established with [facility] ED 05/26 - give valium [...] Overview (01/04/2014): Cysto neg 05/21/13. Following with [facility] urology Miri CERVANTES as of 09/26/2013. Resolved s/p laminectomy L4-S1 October 2013 @ [place] by Dr. Heard. Assessment & Plan (05/07/2022 [...] wellbutrin 03/27: followed by Mauricio THOMPSON @ [facility] DIRECTIVE INFORMATION 11/17/2004 08/06/2022 Overview (11/17/2004): No, Advance Directive brochure offered , patient declined. Allergic rhinitis 11/24/2001 11/30/2018 Overview (08/03/2011): zyrtec Fatty liver 08/06/2022 Chronic sinusitis 11/30/2018 Overview (10/20/2015): frequent documented as of this encounter (statuses as of 08/21/2024) Immunizations Name Administration Dates Next Due COVID-19 mRNA, LNP-s, No Pre serve, 2-Dose Series (Dafiti) 06/25/2021,12/13/2020,11/15/2020 COVID-19, MRNA-LNP, PF, 30 M CG/0.3 mL, 12 YRS AND ABOVE, IM ([facility] 03/29/2023 Covid-19, Mrna, Lnp-s, Pf, B ivalent, 30 Mcg, IM, 12 yrs and above (Dafiti) 06/17/2022 H1N1 2009 Influenza, IM 05/27/2009 Pneumococcal Conjugate Vacci ne, 20-valent ([id number]) 12/15/2021 Pneumococcal Polysaccharide PPV23 (Pneumovax) 05/01/2008 Seasonal [...] Sign Reading Time Taken Comments Blood Pressure 137/82 07/31/2024 12:32 PM EST Pulse 84 07/31/2024 12:32 PM EST Temperature 36.9 C (98.4 F) 07/31/2024 12:[address] Respiratory Rate 18 07/31/2024 12:32 PM EST Oxygen Saturation - - Inhaled [...] documented in this encounter Nursing Notes * Lisa Elaine LPN - 07/31/2024 2:07 PM EST Pt requested BS taken, felt like it was a little low. BS 155, pt states "I feel the same way when it runs high". Tolerated infusion well. No distress. VSS. Patient left IVC by wheelchair. Accompanied by friend. Voiced no complaints. Lisa Elaine LPN 07/31/2024 2:10 PM documented in this encounter Plan of Treatment Upcoming Encounters Date Type Department Care Team (Late st Contact Info) Description 08/29/2024 1:00 PM EDT Office Visit [facility] [place] [phone] Sarah Saavedra PA-C [address] [address] 09/12/2024 10:22 AM EDT Hospital Encounter [facility], Operating Room [facility] [address] [place] [address] [place] [phone] Edwardo Arias, DO [address] [place] [phone] 09/12/2024 10:22 AM EDT - 09/12/2024 10:41 AM EDT Surgery OR [facility], Operating Room [facility] [address] [place] [phone] Edwardo Arias, DO [address] [place] [phone] INJECTION SPINE LUMBAR OR SACRAL 09/17/2024 1:15 PM EDT Office Visit Orthopaedics [facility] [address] [place] [phone] Windy Haley PA-C [address] [place], [place] [phone] 09/18/2024 10:20 AM EDT Office Visit Infectious Disease, [address] [phone] Radha Fuentes MD [address] [place], [place] [phone] 10/03/2024 10:40 AM EDT Office Visit Family [facility] [address] [place] [address] Lizet Briseno MD [address] [place] [phone] 10/03/2024 3:40 PM EDT Office Visit Neurology, [facility] [address] [place] [address] Maureen Bowie MD [address] [place] [address] 10/12/2024 10:30 AM EDT Nurse Only Hematology/Oncolog y Treatment, [address] [place] [address] [facility], Chair10 Hem Onc [address] [place] [address] 10/15/2024 3:00 PM EDT Telemedicine Interventional Pain Center, [facility] 400 [place] [address] Amadou Rene CRNP [address] [place] [address] 10/16/2024 2:30 PM EDT Office Visit Hematology/Oncolog y, [facility] [address] [facility], [place] [phone] Radha Espinoza CRNP [address] [place], [place] [phone] 01/21/2025 8:30 AM EDT Office Visit Urology, [place] [address] [place], [place] [phone] Nadir Foy MD [address] [place], [place] [phone] 03/28/2025 9:45 AM EDT Office Visit General Surgery, [facility] [address] [facility] [place] [address] Manolo Beckett MD [address] [place], [place] [phone] Scheduled Procedures Name Priority Associated Diagnoses Date/Ti [...] this encounter Medical Devices Implanted Type Area Ice Carver Device Identifier Shelf Expiration Date Model / Serial / Lot Plate Small Mtpj - [id number] Implanted:Qty: 1 on 11/15/2017 by Cristobal Calvillo MD at OR [facility] Left: Foot / / Screw Locking 2.7x14mm - [id number] Implanted:Qty: 1 on 11/15/2017 by Cristobal Calvillo MD at OR [facility] Left: Foot / / 2.7 X 16mm Locking Screw Implanted:Qty: 2 on 11/15/2017 by Cristobal Calvillo MD at OR [facility] Left: Foot [employer] / / 2.7 X 20 Locking Screw Implanted:Qty: 1 on 11/15/2017 by Cristobal Calvillo MD at [facility] Left: Foot [employer] / / 2.7 X 18mm Locking Screw Implanted:Qty: 1 on 11/15/2017 by Cristobal Calvillo MD at OR [facility] Left: Foot [employer] / / Screw Locking 2.7x10mm - [id number] Implanted:Qty: 1 on 11/15/2017 by Cristobal Calvillo MD at OR [facility] Left: Foot [employer] [id number] / / 4.0mm X 44 Mm Compression Screw Implanted:Qty: 1 on 10/09/2018 by Bao Hernández MD at OR [facility] Left: Foot AR-8740-44 H / / Description:Implant from set 2.5x30 Compression Screw Implanted:Qty: 1 on 10/09/2018 by Bao Hernández MD at OR [facility] Left: Foot [employer] AR-8725-30 H / / Screw [employer] 2.0yty06gi - [id number] Implanted:Qty: 2 on 02/01/2022 by Bao Hernández MD at OR [facility] Right: Toe EXACTECH 7299-9545 / / Plate Mtpj - [id number] Implanted:Qty: 1 on 02/01/2022 by Bao Hernández MD at OR [facility] Right: Foot [employer] 6086-3903 / / Screw Locking 2.7x10mm - [id number] Implanted:Qty: 2 on 02/01/2022 by Bao Hernández MD at OR [facility] Right: Foot [employer]CH [id number] / / Screw Locking 2.7x12mm - [id number] Implanted:Qty: 3 on 02/01/2022 by Bao Hernández MD at OR [facility] Right: Foot [employer] 1162-0594 / / Screw Locking 2.7x14mm - [id number] Implanted:Qty: 1 on 02/01/2022 by Bao Hernández MD at OR [facility] Right: Foot [employer] / / Screw [employer] 2.9eqr16li - [id number] Implanted:Qty: 1 on 02/01/2022 by Bao Hernández MD at OR [facility] Right: Toe EXACTECH [id number] / / Port Implant W/8f Poly Cath - [id number] Implanted:Qty: 1 on 06/02/2022 by Lawrence Cat DO at OR [facility] Right: Chest CR BARD : PERIPHERAL VASCULAR [id number] 05/12/2023 [id number] / / [id number] documented as of this encounter Procedures Procedure Name Priority Date/Time Associated Diagnosis Comments GLUCOSE METER, POINT OF CARE Routine 07/31/2024 1:59 PM EST Hypoglycemia documented in this encounter Results * (ABNORMAL) GLUCOSE METER, POINT OF CARE (07/31/2024 1:59 PM EST) Glucose - POCT 155(H) 70 - 120 mg/dL 07/31/2024 3:21 PM EST [facility] Blood 07/31/2024 1:59 PM EST 07/31/2024 3:21 PM EST us Brian Fuentes MD LAB POINT OF CARE TEST DOCKED DEVICE UNSOLICITED RESULTS Final Result [facility] [address] [place] [address] documented in this encounter Visit Diagnoses Diagnosis Morbid obesity [...] aura, not intractable, without status migrainosus- Primary Hypoglycemia- Primary Hypoglycemia, unspecified Vaginal candidiasis Candidiasis of vulva and vagina Lumbar radiculopathy Thoracic or lumbosacral neuritis or radiculitis, unspecified documented in this encounter Administered Medications Inactive Administered Medications - up to 3 most recent administrations Medication Order MAR Action Action Date Dose Rate Site hEParin 100 UNIT/ML Lock Flush inj 500 Units 500 Units (5 mL), IV Lock, PRN Other, IV Flush, Starting on Tue07/31/24 at 1224, Until Tue07/31/24 at 1811, For 24 hours, Do not flush if lock, PICC, or central line not in place; IV infusing or unable to flush.Indications:Vaginal candidiasis Given 07/31/2024 2:01 PM EST 500 Units Micafungin sodium (Mycamine) 100 mg in NSS 100 mL ivpb 100 mg, IV Piggyback, ONCE, 1 dose, On Tue07/31/24 at 1300, Administer over 60 Minutes, +++ IVC for Monday 07/31 +++Indications:Vaginal candidiasis Start Infusion 07/31/2024 12:40 PM EST 100 mg 105 mL/hr NSS infusion FOR HYDRATION Intravenous, at 50 mL/hr Administer over 10 Hours, CONTINUOUS, Starting on Tue07/31/24 at 1315, Until Tue07/31/24 at 1811Indications:Vaginal candidiasis Start Infusion 07/31/2024 12:38 PM EST 500 mL 50 mL/hr sodium chloride 0.9 % flush central line 10 mL 10 mL, IV Push, PRN Other, IV Flush, Starting on Tue07/31/24 at 1224, Until Tue07/31/24 at 181, For 24 hours, Do not flush if lock, PICC, or central line not in place; IV infusing or unable to flush.Indications:Vaginal candidiasis Given 07/31/2024 2:01 PM EST 10 mL documented in this encounter Advance Directives Documents on File Type Date Recorded Patient Mountain Services Manager Expl anation POL 12/03/2020 POLST KARLO ROSA ORDERS FOR LIFE-SUSTAINING [...] Agent Relationship Communication Nirosana Mancini Grandparent First [facility] Care Agent Andria Addison Mother Emergency Contact Care Teams Linux Server Administrator Relationship Specialty Start Date End Date Sarah Saavedra PA-C [address] [id number] PCP - General Physician Makeup Sales Consultant 09/06/23 documented as of this encounter
--- OUTSIDE RECORDS SUMMARY | 2024-08-22 20:50 | External Medical Summary | Summary of Care ---
Author Name Unknown Organization [facility] Address [address] [place] [address] Phone [phone] Care Team Providers Care Fitter/Welder Name Role Phone Sarah Saavedra PA-C Primary Care Provider [phone] [phone] Reason for Visit * Reason Comments Infusion Monoferric &micofung in * Episode Based Medications (Routine) - Authorized Specialty Diagnoses / Procedures Referred By Contman t Referred To Contact Diagnoses Iron deficiency anemia due to chronic blood loss Procedures PA INJ. FE DERISOMALTOSE 10 MG Radha Espinoza CRNP 400 [place] [address] Phone: tel: fax: Hematology/Oncology Treatment, [address] [address] Phone: tel: fax: Referral ID Status Reason Start Date Expiration Date V isits Requested Visits Authorized [id number] Authorized 07/24/2024 07/24/2025 999 [id number] Encounter Details Date Type Department Care Team (Latest Contact Info) Description 07/27/2024 11:30 AM EST Hem/Onc Treatment Hematology/Oncology Treatment, [facility] [address] [facility] [place] [address] [facility], Chair5 Hem Onc [address] [place] [address] [place] [address] Vaginal candidiasis*; Iron deficiency anemia [...] said itching Latex Itching 09/26/2013 Linezolid 10/23/2014 [place] Other (Please comment) High 12/29/2014 Became unresponsive [...] suspected opioid overdose. Seek immediate medical attention. [email or web address]?v=[email or web address] 1 Each 3 024 Active Cyclobenzaprine HCl [...] Emgality 120 MG/ML Subcutaneous Solution Auto-injector (Galcanezumab-g [facility]) Inject 1 mL (1 pen) under the skin Every Month. After completion of loading dose. 1 mL 4 07/26/19 25 7:47 AM EST 025 Active Nystatin 366090 UNIT/GM External Powder (Nystop) Apply topically to [...] 1,000 mcgIndications:S/P gastric bypass 1000 mcg IM [id number] 08/30/2023 06/03/2026 Active cefTRIAXone (Rocephin) (350 mg/mL) [...] episo de depressed, severe, w/psychotic features 05/03/2022 staff nurse current use of anticoagulant therapy 0 08/28/2021 Recurrent chest pain 07/31/2021 Assessment & Plan (09/02/2021 2:44 PM EDT): Referred to cardiology for workup--seen in Jul. [place] atypical for ACS. ED workup neg for [...] & Plan: Primary reason for transfer from [facility] to [facility] rehab. C/o LE weakness and acute/chronic low back pain. Lumbar spine MRI reportedly performed @ [facility], not available for review Pt denies receiving steroid injections D/C IV dilaudid. Resume PO hydromorphone 4mg in setting of subjected acute on chronic low back pain, foot pain and now chest pain Encourage use of tylenol 1000mg or ibuprofen 600mg PRN Chronic suprapubic catheter 05/31/2014 Overview (05/31/2014): Placed 05/26 @ [facility] by interventional radiology for urinary retention and [...] without myelopathy 03/03/2006 Overview (09/15/2015): Rigth L5-S1. [place] injections. Did not help. For discectomy at [facility] 08/31/06. Had subsequent MRSA graft Remove rods [...] 01/23: sees Dr. Mock (spine surgeon) @ [facility] 10/24: lumbar spinal surgery by Dr. Bob [...] a contraindication to starting her on opioids." [facility] discharge 10/04/15: patient exhibiting behavior [...] 06/07/2014 Overview (06/07/2014): Pain contract established with [facility] ED 05/26 - give valium 5 [...] Overview (01/04/2014): Cysto neg 05/21/13. Following with [facility] urology Miri CERVANTES as of 09/26/2013. Resolved s/p laminectomy L4-S1 October [address] @ [place] [address] Heard. Assessment & Plan (05/07/2022 [...] wellbutrin 03/27: followed by Mauricio THOMPSON @ [facility] DIRECTIVE INFORMATION 11/17/2004 08/06/2022 Overview [...] IM 05/27/2009 Pneumococcal Conjugate Vacci ne, 20-valent ([id number]) 12/15/2021 Pneumococcal Polysaccharide PPV23 (Pneumovax) 05/01/2008 Seasonal [...] Vss. Pt on 30 minute observation period Yudtih Navarro RN - 07/27/2024 11:45 AM EST Pt in bay#8 present for micofungin and monoferric infusion. Patient instructed on use of heat and massage functions where applicable. Patient shown how to operate the heat function of the chair and to alert nursing staff if the chair feels too warm. Patient instructed on the risk of potential brothers while using the heat function. [facility] Nursing Care Plan ID is not [...] Description 08/29/2024 1:00 PM EDT Office Visit [facility] [address] [place] [address] Sarah Saavedra PA-C [address] [place] [address] 09/12/2024 10:22 AM EDT Hospital Encounter [facility], Operating Room OSHP [address] [place] [phone] Edwardo Arias, [address] [phone] 09/12/2024 10:22 AM EDT - 09/12/2024 10:41 AM EDT Surgery OR [facility], Operating Room O[facility] [address] [place] [phone] Edwardo Arias, [address] [phone] INJECTION SPINE LUMBAR OR [facility]CRAL 09/17/2024 1:15 PM EDT Office [place] [facility] [address] [place] [phone] Windy Haley PA-C 16 [place] [address] 09/18/2024 10:20 AM EDT Office Visit Infectious Disease, [address] [phone] Radha Fuentes MD [address] [place] [address] 10/03/2024 10:40 AM EDT Office Visit Family [facility] [address] [place] [address] Lizet Briseno MD [address] [place] [address] 10/03/2024 3:40 PM EDT [facility] [address] [place] [address] Maureen Bowie MD [address] [place] [address] 10/12/2024 10:30 AM EDT Nurse Only Hematology/Oncolog y Treatment, [address] [phone] [facility], Chair10 Hem Onc [address] [place] [phone] 10/15/2024 3:00 PM EDT Telemedicine Interventional Pain Center, [address] [phone] Amadou Rene CRNP [address] [place] [address] 10/16/2024 2:30 PM EDT Office Visit Hematology/Oncolog y, [address] [phone] Radha Espinoza CRNP [address] [place], [place] [phone] 01/21/2025 8:30 AM EDT Office Visit Urology, [place] [address] [place] [address] Nadir Foy MD [address] [place] [address] 03/28/2025 9:45 AM EDT Office Visit General Surgery, [facility] [address] [place] [address] Manolo Beckett MD [address] [facility] [place] [address] Scheduled Procedures Name [...] this encounter Medical Devices Implanted Type Area Senior Research Scientist Device Identifier Shelf Expiration Date Model / Serial / Lot Plate Small Mtpj - [id number] Implanted:Qty: 1 on 11/15/2017 by Cristobal Calvillo MD at [facility] Left: Foot [id number] / / Screw Locking 2.7x14mm - [id number] Implanted:Qty: 1 on 11/15/2017 by Cristobal Calvillo [...] LLC / / Screw Locking 2.7x10mm - [id number] Implanted:Qty: 1 on 11/15/2017 by Cristobal Calvillo [...] AR-8725-30 H / / Screw [employer] 2.8pqd35fd - [id number] Implanted:Qty: 2 on 02/01/2022 by Bao Hernández MD at OR [facility] Right: Toe EXACTECH 6588-4187 / / Plate Mtpj - [id number] Implanted:Qty: 1 on 02/01/2022 by Bao Hernández MD at OR [facility] Right: Foot [employer]ECH 1646-9379 / / Screw Locking 2.7x10mm - [id number] Implanted:Qty: 2 on 02/01/2022 by Bao Hernández MD at OR [facility] Right: Foot EXACTECH 6025-7500 / / Screw Locking 2.7x12mm - [id number] Implanted:Qty: 3 on 02/01/2022 by Bao Hernández MD at OR [facility] Right: Foot [employer] / / Screw Locking 2.7x14mm - [id number] Implanted:Qty: 1 on 02/01/2022 by Bao Hernández MD at OR [facility] Right: Foot [employer] / / Screw [employer] 2.8sxz87lz - [id number] Implanted:Qty: 1 on 02/01/2022 by Bao Hernández MD at OR [facility] Right: Toe EXACTECH 0450-0728 / / Port Implant W/8f Poly Cath - [id number] Implanted:Qty: 1 on 06/02/2022 by Lawrence Cat DO at OR [facility] Right: Chest CR BARD : PERIPHERAL VASCULAR [id number] 05/12/2023 [id number] / / [id number] documented as of this encounter Visit Diagnoses [...] Documents on File Type Date Recorded Patient Prefitter Expl anation POLST 12/03/2020 POLST KARLO LEE [...] Agent Relationship Communication Ni Yazminkathiekennedyr Grandparent First [facility] Health Care Agent Andria Addison Mother Emergency Contact Care Teams Fitter/Welder Relationship Specialty Start Date End Date Sarah Saavedra PA-C [address] [place] [place] [address] PCP - General Physician Adult Literacy Teacher 09/06/23 documented as of this encounter
--- OUTSIDE RECORDS SUMMARY | 2024-08-22 20:50 | External Medical Summary | Summary of Care ---
Author Name Unknown Organization [facility] Address [address] [place] [address] Phone [phone] Care Team Providers Care Right Of Way Manager Name Role Phone Sarah Saavedra PA-C Primary Care Provider [phone] Reason for Visit * Reason Comments Medication Administration Micafungin Encounter Details Date Type Department Care Team (Latest Contact Info) Description 08/02/2024 1:15 PM EST Hem/Onc Treatment Hematology/Oncology Treatment, [address] [address] [facility], Chair2 Hem Onc [address] [place] [address] Vaginal candidiasis* Allergies Active Allergy Reactions [...] said itching Latex Itching 09/26/2013 Linezolid 10/23/2014 [place] Other (Please comment) High 12/29/2014 Became unresponsive [...] suspected opioid overdose. Seek immediate medical attention. [email or web address] 1 Each 3 024 Active Cyclobenzaprine HCl [...] Emgality 120 MG/ML Subcutaneous Solution Auto-injector (Galcanezumab-g [facility]) Inject 1 mL (1 pen) under the skin Every Month. After completion of loading dose. 1 mL 4 07/26/19 25 7:47 AM EST 025 Active Nystatin 099765 UNIT/GM External Powder (Nystop) Apply topically to [...] 1,000 mcgIndications:S/P gastric bypass 1000 mcg IM [id number] 08/30/2023 06/03/2026 Active cefTRIAXone (Rocephin) (350 mg/mL) [...] Referred to cardiology for workup--seen in Jul. Am[place] atypical for ACS. ED workup neg for [...] & Plan: Primary reason for transfer from [facility] to [facility] rehab. C/o LE weakness and acute/chronic low back pain. Lumbar spine MRI reportedly performed @ [facility], not available for review Pt denies receiving steroid injections D/C IV dilaudid. Resume PO hydromorphone 4mg in setting of subjected acute on chronic low back pain, foot pain and now chest pain Encourage use of tylenol 1000mg or ibuprofen 600mg PRN Chronic suprapubic catheter 05/31/2014 Overview (05/31/2014): Placed 05/26 @ [facility] by interventional radiology for urinary retention and [...] without myelopathy 03/03/2006 Overview (09/15/2015): Rigth L5-S1. Kennett injections. Did not help. For discectomy at [facility] 08/31/06. Had subsequent MRSA graft Remove rods [...] 01/23: sees Dr. Mock (spine surgeon) @ [facility] 10/24: lumbar spinal surgery by Dr. Bob [...] behavior 09/10/20152022 Overview (10/06/2015): Pain management consult 3/25/16: do not give narcotics, "In addition,patient seems to drug seeking which is a contraindication to starting her on opioids." [facility] discharge 10/04/15: patient exhibiting behavior of narcotic [...] 06/07/2014 Overview (06/07/2014): Pain contract established with [facility] ED 05/26 - give valium 5 [...] Overview (01/04/2014): Cysto neg 05/21/13. Following with [facility] urology Miri CERVANTES as of 09/26/2013. Resolved s/p laminectomy L4-S1 October 2013 @ [place] [address] Heard. Assessment & Plan (05/07/2022 [...] 03/27: followed by Mauricio THOMPSON @ [facility] ADVANCE DIRECTIVE INFORMATION 11/17/2004 08/06/2022 Overview (11/17/2004): No, Advance Directive brochure offered , patient declined. Allergic rhinitis 11/24/2001 11/30/2018 Overview (08/03/2011): zyrtec Fatty liver 08/06/2022 Chronic sinusitis 11/30/2018 Overview (10/20/2015): frequent documented as of this encounter (statuses as of 08/21/2024) Immunizations Name Administration Dates Next Due COVID-19 mRNA, LNP-s, No Pre serve, 2-Dose Series (Tangled) 06/25/2021,12/13/2020,11/15/2020 COVID-19, MRNA-LNP, PF, 30 M CG/0.3 mL, 12 YRS AND ABOVE, IM ([employer]Comirnat) 03/29/2023 Covid-19, Mrna, Lnp-s, Pf, B ivalent, 30 Mcg, IM, 12 yrs and above (Tangled) 06/17/2022 H1N1 2009 Influenza, IM 05/27/2009 Pneumococcal Conjugate Vacci ne, 20-valent ([id number]) 12/15/2021 Pneumococcal Polysaccharide PPV23 (Pneumovax) 05/01/2008 Seasonal [...] Sign Reading Time Taken Comments Blood Pressure 128/72 08/02/2024 12:53 PM EST Pulse 90 08/02/2024 12:53 PM EST Temperature 36.5 C (97.7 F) 08/02/2024 12:[address] Respiratory Rate 18 08/02/2024 12:53 PM EST Oxygen Saturation - - Inhaled Oxygen Concentration - - Weight - - Height - - Body Mass Index - - documented in this encounter Functional Status * Are you deaf or do you have serious difficulty hearing? Answer Date of Assessment Author No 07/08/2023 5:35 AM EST Heather Denney RN * Are you blind or do you have serious difficulty seeing, even when wearing glasses? Answer Date of Assessment Author No 07/08/2023 5:35 AM EST Heather Denney RN * Do you have serious difficulty [...] Nursing Notes * Lisa Elaine LPN - 08/02/2024 2:45 PM EST Tolerated infusion well. Patient left IVC by wheelchair. Accompanied by Friend. Voiced no complaints. Lisa Elaine LPN 08/02/2024 2:46 PM * Lisa Elaine LPN - 08/02/2024 12:54 PM EST Pt in chair 3 for Micafungin infusion. Patient instructed on use of heat and massage functions where applicable. Patient shown how to operate the heat function of the chair and to alert nursing staff if the chair feels too warm. Patient instructed on the risk of potential brothers while using the heat function. documented in this encounter Plan of Treatment Upcoming Encounters Date Type Department Care Team (Late st Contact Info) Description 08/29/2024 1:00 PM EDT Office Visit [facility] Emma Jacobs [address] [phone] Sarah Saavedra PA-C [address] [place] [address] 09/12/2024 10:22 AM EDT Hospital Encounter [facility], Operating Room [facility] [address] [place] [phone] Edwardo Arias, [address] [phone] 09/12/2024 10:22 AM EDT - 09/12/2024 10:41 AM EDT Surgery OR [facility], Operating Room [address] [phone] Edwardo Arias, [address] [phone] INJECTION SPINE LUMBAR OR [facility]AL 09/17/2024 1:15 PM EDT Office Visit Orthopaedics [facility] [address] [place] [phone] Windy Haley PA-C [address] [place] [address] 09/18/2024 10:20 AM EDT Office Visit Infectious Disease, [address] [phone] Radha Fuentes MD [address] [place] [address] 10/03/2024 10:40 AM EDT Office Visit Family [facility] [address] [place] [phone] Lizet Briseno MD [address] [place] [phone] 10/03/2024 3:40 PM EDT Office Visit Neurology, [place] [address] [facility] [place] [phone] Maureen Bowie MD [address] [facility] [place] [address] 10/12/2024 10:30 AM EDT Nurse Only Hematology/Oncolog y Treatment, [address] [address] [facility], Chair10 Hem Onc [address] [place] [address] [phone] 10/15/2024 3:00 PM EDT Telemedicine [facility], [address] [phone] Amadou Rene CRNP [address] [place] [address] 10/16/2024 2:30 PM EDT Office Visit Hematology/Oncolog y, [address] [address] Radha Espinoza CRNP [address] [place] [address] [phone] 01/21/2025 8:30 AM EDT Office Visit Urology, [place] [address] [place] [address] Nadir Foy MD [address] [place] [address] 03/28/2025 9:45 AM EDT Office Visit General Surgery, [facility] [address] [facility] [address] [place] [address] Manolo Beckett MD [address] [place] [address] Scheduled Procedures Name Priority Associated [...] this encounter Medical Devices Implanted Type Area Home Health Occupational Therapist Device Identifier Shelf Expiration Date Model / Serial / Lot Plate Small Mtpj - [id number] Implanted:Qty: 1 on 11/15/2017 by Cristobal Calvillo MD at OR [facility] Left: Foot / / Screw Locking 2.7x14mm - [id number] Implanted:Qty: 1 on 11/15/2017 by Cristobal Calvillo [...] LLC / / Screw Locking 2.7x10mm - [id number] Implanted:Qty: 1 on 11/15/2017 by Cristobal Calvillo MD at OR [facility] Left: Foot [employer] [id number] / / 4.0mm X 44 Mm Compression Screw Implanted:Qty: 1 on 10/09/2018 by Bao Hernández MD at OR [facility] Left: Foot AR-8740-44 H / / Description:Implant from set 2.5x30 Compression Screw Implanted:Qty: 1 on 10/09/2018 by Bao Hernández MD at OR [facility] Left: Foot [employer] AR-8725-30 H / / Screw [employer] 2.8zvd69no - [id number] Implanted:Qty: 2 on 02/01/2022 by Bao Hernández MD at OR [facility] Right: Toe [employer] 7236-7880 / / Plate Mtpj - [id number] Implanted:Qty: 1 on 02/01/2022 by Bao Hernández MD at OR [facility] Right: Foot [employer] 6639-9916 / / Screw Locking 2.7x10mm - [id number] Implanted:Qty: 2 on 02/01/2022 by Bao Hernández MD at OR [facility] Right: Foot [employer] [id number] / / Screw Locking 2.7x12mm - [id number] Implanted:Qty: 3 on 02/01/2022 by Bao Hernández MD at OR [facility] Right: Foot [employer] 8786-0515 / / Screw Locking 2.7x14mm - [id number] Implanted:Qty: 1 on 02/01/2022 by Bao Hernández MD at OR [facility] Right: Foot [employer] [id number] / / Screw [employer] 2.1ufc82jx - [id number] Implanted:Qty: 1 on 02/01/2022 by Bao Hernández MD at OR [facility] Right: Toe [employer] 9045-1745 / / Port Implant W/8f Poly Cath - [id number] Implanted:Qty: 1 on 06/02/2022 by Lawrence Cat DO at OR [facility] Right: Chest CR BARD : PERIPHERAL VASCULAR [id number] 05/12/2023 [id number] / / [id number] documented as of this encounter Visit Diagnoses [...] mg, IV Piggyback, ONCE, 1 dose, On Josefina 08/02/24 at 1330, Administer over 60 MinutesIndications:Vaginal candidiasis Start Infusion 08/02/2024 1:16 PM EST 100 mg 105 mL/hr NSS infusion FOR HYDRATION Intravenous, at 50 mL/hr Administer over 10 Hours, CONTINUOUS, Starting on Josefina 08/02/24 at 1345, Until Josefina 08/02/24 at 1847Indications:Vaginal candidiasis Start Infusion 08/02/2024 1:01 PM EST 500 mL 50 mL/hr documented in this encounter Advance Directives Documents on File Type Date Recorded Patient [employer] Expl anation POLST 12/03/2020 POLST CHAIMA ROSA ORDERS FOR LIFE-SUSTAINING [...] Relationship Communication Ni Donnyr Grandparent [facility] Agent Andria Addison Mother Emergency Contact Care Teams Right Of Way Manager Relationship Specialty Start Date End Date Sarah Saavedra PA-C [address] [phone] PCP - General Physician Body Former 09/06/23 documented as of this encounter
--- OUTSIDE RECORDS SUMMARY | 2024-08-22 20:51 | External Medical Summary | Summary of Care ---
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] Acute marginal ulcer [K28.3] Procedures EGD, FLEXIBLE, DIAGNOSTIC ESOPHAGOGASTRODUODENOSCOPY (EGD), FLEXIBLE, TRANSORAL, DIAGNOSTIC Manolo Beckett MD [address] [place] [address] Phone: tel: fax: ENDO C, Endoscopy Suite, [facility] [address], [address] [place] [address] Phone: tel: Referral ID Status Reason Start Date Expiration Date Visits Re quested Visits Authorized [id number] Encounter Details Date Type Department Care Team (Latest Contact Info) Description 08/20/2024 11:08 AM EDT - 08/20/2024 2:10 PM EDT Hospital Encounter ENDO [facility], Endoscopy Suite, [facility], [address] [place] [address] Yesica Rivera MD [address] [place] [address] Upper GI Endoscopy Discharge Disposition: Home - Self Care Allergies [...] itching Latex Itching 09/26/2013 Linezolid 10/23/2014 [place] Other (Please comment) High 12/29/2014 Became [...] mouth every evening. With a meal 03/04/20 23 Active Topiramate 50 MG Oral Tablet (topAMAX) [...] suspected opioid overdose. Seek immediate medical attention. https://[email or web address]/watch?v=v26c Ngs0CcZ 1 Each 3 07/28/19 24 Active Additional [...] dose. 1 mL 4 5 7:47 AM EST 06/15/19 25 Active Nystatin 115308 UNIT/GM External Powder (Nystop) Apply topically to [...] on 08/20/2024 Benzonatate 100 MG Oral Capsule (Tessalfelecia Perlitalo)Indicatio ns:Intermittent asthma with reliever use up [...] morning. 90 Tablet 1 08/16/19 25 Active oxyCODONE HCl 5 MG Oral Tablet (Oxy IR)Indications:C hronic pain syndrome,Spina bifida of lumbar region, unspecified hydrocephalus presence (HCC),Bladder spasm,Chronic complete spastic paraplegia (HCC),Spinal stenosis of lumbosacral region Take 1 Tablet by mouth every 4 hours as needed for Pain, Severe. 42 Tablet 08/16/19 25 Active Loperamide HCl 2 MG Oral Capsule (Imodium)Indicat ions:Diarrhea, unspecified type Take 1 Capsule by mouth 4 times a day as needed for Diarrhea. 20 Capsule 4 5:22 PM EDT 04/09/20 24 025 Disconti nued(Ref ill) Losartan Potassium 25 MG Oral Tablet (Cozaar)Indicati ons:HTN, goal below 140/90 TAKE 1 TABLET BY MOUTH IN THE MORNING 30 Tablet 5 05/09/20 24 025 Disconti nued(Ref ill) traZODone HCl 50 MG Oral Tablet (Desyrel) TAKE 1 to 2 TABLETS BY MOUTH EVERY night AT BEDTIME 07/31/19 25 025 Disconti nued(Pat ient preferen ce/disco ntinuati on) Ampicillin 500 MG Oral CapsuleIndicatio ns:Acute cystitis without hematuria Take 1 Capsule by mouth in the morning and 1 Capsule at noon and 1 Capsule in the evening and 1 Capsule before bedtime. Do all this for 7 days. 28 Capsule 08/08/19 25 025 Disconti nued(Med ication List Clean Up) oxyCODONE HCl 5 MG Oral Tablet (Oxy IR)Indications:C hronic pain syndrome,Spina bifida of lumbar region, unspecified hydrocephalus presence (HCC),Bladder spasm,Chronic complete spastic paraplegia (HCC),Spinal stenosis of lumbosacral region Take 1 Tablet by mouth every 4 hours as needed for Pain, Severe. 42 Tablet 08/08/19 25 025 Disconti nued(Ref ill) documented as of this encounter (statuses as [...] episo de depressed, severe, w/psychotic features 05/03/2022 senior care current use of anticoagulant therapy 0 08/28/2021 Recurrent chest pain 07/31/2021 Assessment & Plan (09/02/2021 2:44 PM EDT): Referred to cardiology for workup--seen in Jul. [place] atypical for ACS. ED workup neg for [...] [facility] to [facility] rehab. C/o LE weakness and acute/chronic low [...] catheter 05/31/2014 Overview (05/31/2014): Placed 05/26 @ [facility] culture positive 02/27/2023 04/19/2024 Spastic hemiplegia 07/31/2022 4 Uncomplicated asthma 07/31/2022 023 Overview (06/02/2023): More [...] 06/07/2014 Overview (06/07/2014): [facility] with [facility] [...] Overview (01/04/2014): Cysto neg 05/21/13. Following with [facility] urology Miri CERVANTES as of 09/26/2013. Resolved s/p laminectomy L4-S1 October 2013 @ [facility] by Dr. Heard. Assessment & Plan (05/07/2022 12:02 PM EST): Rayo draining--currently being treated for UTI with keflex Assessment & Plan (09/23/2021 12:07 PM EDT): Called urology and verified that she has nurse appt 10/05 to remove raoy/voiding trial. Hypertension goal BP (blood pressure) < [...] 12/08/200910/11 Overview (05/31/2014): Per Asthma Taxonomy, Advair, [email or web address] PFT 04/30/14: normal Acidosis 09/16/2009 02/02/2018 Overview [...] followed by Mauricio THOMPSON @ [facility] ADVANCE DIRECTIVE INFORMATION 11/17/2004 08/06/2022 Overview (11/17/2004): No, Advance Directive brochure offered , patient declined. Allergic rhinitis 11/24/2001 11/30/2018 Overview (08/03/2011): zyrtec Fatty liver 08/06/2022 Chronic sinusitis 11/30/2018 Overview (10/20/2015): frequent documented as of this encounter (statuses as of 08/21/2024) Immunizations Name Administration Dates Next Due COVID-19 mRNA, LNP-s, No Pre serve, 2-Dose Series ([employer]) 06/25/2021,12/13/2020,11/15/2020 COVID-19, MRNA-LNP, PF, 30 M CG/0.3 mL, 12 YRS AND ABOVE, IM ([employer] [facility]) 03/29/2023 Covid-19, Mrna, Lnp-s, Pf, B ivalent, 30 Mcg, IM, 12 yrs and above ([employer]) 06/17/2022 H1N1 2009 Influenza, IM 05/27/2009 Pneumococcal Conjugate Vacci ne, 20-valent ([id number]) 12/15/2021 Pneumococcal Polysaccharide PPV23 (Pneumovax) 05/01/2008 Seasonal [...] 08/16/2024 Does the household have a re gular [...] Sign Reading Time Taken Comments Blood Pressure 148/84 08/20/2024 2:00 PM EDT Pulse 93 08/20/2024 2:00 PM EDT Temperature 37.3 C (99.1 F) 08/20/2024 1:25 PM ED T Respiratory Rate 17 08/20/2024 2:00 PM EDT Oxygen Saturation 98% 08/20/2024 2:00 PM EDT Inhaled Oxygen Concentration - - Weight 101.6 kg (224 lb) 08/20/2024 11:45 AM EDT Height - - Body Mass Index 43.75 08/12/2024 2:58 AM EST documented in this encounter Functional Status * [...] Date Author No 07/08/2023 5:35 AM Heather Braga RN documented in this encounter Procedure Notes * Sarah Saavedra PA-C - 08/20/2024 11:58 AM EDTAssociated Order(s): UPPER GI ENDOSCOPY [facility] Patient Name: Gricel Mancini Procedure Date: 08/20/2024 11:58 AM Date of : 1985 Admit Type: Outpatient Note Status: Finalized Date of : 1985 Admit Type: Outpatient Age: 39 Gender: Female Note Status: Finalized Procedure: Upper GI endoscopy Indications: Epigastric abdominal pain, Follow-up of chronic gastrojejunal ulcer, Assessment following Mark-en-Y gastrojejunostomy Providers: Yesica Rivera MD (Doctor), Jose G Figueroa MD (Fellow) Referring MD: Sarah Saavedra Complications: No immediate complications. Procedure: Pre-Anesthesia Assessment: - Prior to the procedure, a History and Physical was performed, and patient medications, allergies and sensitivities were reviewed. The patient's tolerance of previous anesthesia was reviewed. - The risks and benefits of the procedure and the sedation options and risks were discussed with the patient. All questions were answered and informed consent was obtained. - Patient identification and proposed procedure were verified prior to the procedure by the physician. The procedure was verified in the pre-procedure area. - Pre-procedure physical examination revealed no contraindications to sedation. - The heart rate, respiratory rate, oxygen saturations, blood pressure, adequacy of pulmonary ventilation, and response to care were monitored throughout the procedure. - The supervising physician was present for the entire procedure from scope insertion until scope withdrawal. After obtaining informed consent, the endoscope was passed under direct vision. All instruments were visually inspected immediately before and after removal from the patient to ensure they are fully intact. Throughout the procedure, the patient's blood pressure, pulse, and oxygen saturations were monitored continuously. The GIF-H180 Endoscope ([id number]) was introduced through the mouth, and advanced to the efferent jejunal loop. The upper GI endoscopy was accomplished without difficulty. Findings & Specimens: The Z-line was irregular and was found 39 cm from the incisors. Evidence of a gastric bypass was found. A gastric pouch with a 4 cm length from the GE junction to the gastrojejunal anastomosis was found. The staple line appeared intact. The gastrojejunal anastomosiswas characterized by healthy appearing mucosa, visible sutures and the presence of no stomal ulceration. This was traversed. Impression: - Z-line regular, 39 cm from the incisors. - Gastric bypass with a pouch 4 cm in length and intact staple line. Gastrojejunal anastomosis characterized by healthy appearing mucosa, visible sutures and no stomal ulceration. - No specimens collected. Recommendation: - Discharge patient to home (ambulatory). - Return to my office in 4 weeks. Yesica Rivera MD 08/20/2024 12:33:34 PM This report has been signed electronically. Jose G Figueroa MD documented in this encounter Nursing Notes * Aisha Kim RN - 08/20/2024 2:05 PM EDT Per verbal order, the physician and/or designant examined the patient, prescribed and verified the charted medications and certify that she is recovered for safe discharge from Endoscopy. Seen by anesthesia, may be discharged. Patient is discharged under the care of : Care Givers Report called to N/A Means of transportation: wheelchair Discharge instructions reviewed by: Physician and Nurse Special discharge instructions given for: Post Op EGD/Anesthesia Bronchoscopy: N/A Patient verbalized understanding of discharge instructions: YES * Aisha Kim RN - 08/20/2024 1:32 PM EDT Patient out of bed to Wheelchair with assist of caregivers at bedside. Pt stands and pivots to chair. No complaints at this time. * Alexandra Rm RN - 08/20/2024 1:22 PM EDT Patient sitting up in stretcher. Patient offered drink, and is tolerating P.O. fluids well. * Naz Marie RN - 08/20/2024 11:55 AM EDT Patient does not meet criteria for testing - hysterectomy. * Wandy Smith RN - 08/20/2024 11:51 AM EDT Procedure being completed under general anesthesia. Please see anesthesia record for medications and vital signs. documented in this encounter Plan of Treatment Upcoming Encounters Date Type Department Care Team (Late st Contact Info) Description 08/29/2024 1:00 PM EDT Office Visit [facility] [address] [place] [address] [place] [phone] Sarah Saavedra PA-C [place] [phone] 09/12/2024 10:22 AM EDT Hospital Encounter [facility], Operating Room [facility] [address] [place] [phone] Edwardo Arias, DO [address] [place] [phone] 09/12/2024 10:22 AM EDT - 09/12/2024 10:41 AM EDT Surgery [facility], Operating Room [facility] [address] [place] [phone] Edwardo Arias, DO [address] [place] [phone] INJECTION SPINE LUMBAR OR SACRAL 09/17/2024 1:15 PM EDT Office Visit [facility] [address] [place] [phone] Windy Haley PA-C [address] [place], [place] [phone] 09/18/2024 10:20 AM EDT Office Visit Infectious Disease, [facility] [address] [place] [phone] Radha Fuentes MD [address] [place], [place] [phone] 10/03/2024 10:40 AM EDT [facility] [address] [address] Lizet Briseno MD [address] [place] [phone] 10/03/2024 3:40 PM EDT Office Visit Neurology, [address] [phone] Maureen Bowie MD [address] [place] [address] 10/12/2024 10:30 AM EDT Nurse Only Hematology/Oncolog y Treatment, [address], [place] [address] [facility], [address] Onc [address] [place] [address] 10/15/2024 3:00 PM EDT Telemedicine [facility], [address], [place] [address] Amadou Rene CRNP [address] [place] [address] 10/16/2024 2:30 PM EDT Office Visit Hematology/Oncolog y, [address] [place] [address] Radha Espinoza CRNP [address] [place] [address] 01/21/2025 8:30 AM EDT Office Visit Urology, [place] [address] [place], [place] [phone] Nadir Foy MD [address] [place] [address] 03/28/2025 9:45 AM EDT Office Visit General Surgery, [facility] [address] [facility] [place] [address] Manolo Beckett MD [address] [place] [address] Scheduled Procedures Name Priority Associated [...] this encounter Medical Devices Implanted Type Area Supply Chain Assistant Device Identifier Shelf Expiration Date Model / Serial / Lot Plate Small Mtpj - [id number] Implanted:Qty: 1 on 11/15/2017 by Cristobal Calvillo MD at [place] [facility] Left: Foot [id number] / / Screw Locking 2.7x14mm - [id number] Implanted:Qty: 1 on 11/15/2017 by Cristobal Calvillo MD at [place] [facility] Left: Foot / / 2.7 X 16mm Locking Screw Implanted:Qty: 2 on 11/15/2017 by Cristobal Calvillo MD at [place] [facility] Left: Foot [employer] [id number] / / 2.7 X 20 Locking Screw Implanted:Qty: 1 on 11/15/2017 by Cristobal Calvillo MD at [facility] Left: Foot [employer] [id number] / / 2.7 X 18mm Locking Screw Implanted:Qty: 1 on 11/15/2017 by Cristobal Calvillo MD at [place] [facility] Left: Foot [employer] / / Screw Locking 2.7x10mm - [id number] Implanted:Qty: 1 on 11/15/2017 by Cristobal Calvillo MD at [place] [facility] Left: Foot [employer] / / 4.0mm X 44 Mm Compression Screw Implanted:Qty: 1 on 10/09/2018 by Bao Hernández MD at OR [facility] Left: Foot AR-8740-44 H / / Description:Implant from set 2.5x30 Compression Screw Implanted:Qty: 1 on 10/09/2018 by Bao Hernández MD at OR [facility] Left: Foot [employer] AR-8725-30 H / / Screw [employer] 2.8nmu93vo - [id number] Implanted:Qty: 2 on 02/01/2022 by Bao Hernández MD at OR [facility] Right: Toe [employer] 3004-0408 / / Plate Mtpj - [id number] Implanted:Qty: 1 on 02/01/2022 by Bao Hernández MD at OR [facility] Right: Foot [employer] [id number] / / Screw Locking 2.7x10mm - [id number] Implanted:Qty: 2 on 02/01/2022 by Bao Hernández MD at OR [facility] Right: Foot [employer] [id number] / / Screw Locking 2.7x12mm - [id number] Implanted:Qty: 3 on 02/01/2022 by Bao Hernández MD at OR [facility] Right: Foot [employer] / / Screw Locking 2.7x14mm - [id number] Implanted:Qty: 1 on 02/01/2022 by Bao Hernández MD at [place] [facility] Right: Foot [employer] 6519-8550 / / Screw [employer] 2.7der91qs - [id number] Implanted:Qty: 1 on 02/01/2022 by Bao Hernández MD at OR [facility] Right: Toe [employer] 0340-4774 / / Port Implant W/8f Poly Cath - [id number] Implanted:Qty: 1 on 06/02/2022 by Lawrence Cat DO at OR [facility] Right: Chest CR BARD : PERIPHERAL VASCULAR [id number] 05/12/2023 [id number] / / [id number] documented as of this encounter Procedures Procedure Name Priority Date/Time Associated Diagnosis Comments GLUCOSE METER, POINT OF CARE RASHID 08/20/2024 12:45 PM EDT UPPER GI ENDOSCOPY 08/20/2024 11 :58 AM EDT documented in this encounter Results * GLUCOSE METER, POINT OF CARE (08/20/2024 12:45 PM EDT) [facility] Glucose - POCT 87 70 - 120 mg/dL 08/20/2024 12:47 PM EDT [facility] Blood Whole blood specimen / Unknown 08/20/2024 12:45 PM EDT 08/20/2024 12:47 PM EDT us Yesica Rivera MD LAB POINT OF CARE TEST DOCKED DEVICE UNSOLICITED RESULTS Final Result [facility] [address] [place] [address] * UPPER GI ENDOSCOPY (08/20/2024 11:58 AM EDT) 08/20/2024 11:5 8 AM EDT Narrative Procedure Note Sarah Saavedra PA-C - 08/20/2024 11:58 AM EDT [facility] Patient Name: Gricel Mancini Procedure Date: 08/20/2024 11:58 AMMRN: [id number] Date of : 1985 Admit Type: Outpatient Note Status:Finalized Date of : 1985 Admit Type: Outpatient Age: 39 Gender: Female Note Status: Finalized Procedure: Upper GI endoscopy Indications: Epigastric abdominal pain, Follow-up of chronicgastrojejunal ulcer, Assessment following Mark-en-Y gastrojejunostomy Providers: Yesica Rivera MD (Doctor), Jose G Figueroa MD(Fellow) Referring MD: Sarah Saavedra Complications: No immediate complications. Procedure: Pre-Anesthesia Assessment: - Prior to the procedure, a History and Physicalwas performed, and patient medications, allergies and sensitivities werereviewed. The patient's tolerance of previous anesthesia was reviewed. - The risks and benefits of the procedure and thesedation options and risks were discussed with the patient. All questions wereanswered and informed consent was obtained. - Patient identification and proposed procedurewere verified prior to the procedure by the physician. The procedure was verified in thepre-procedure area. - Pre-procedure physical examination revealed nocontraindications to sedation. - The heart rate, respiratory rate, oxygensaturations, blood pressure, adequacy of pulmonary ventilation, and response to care weremonitored throughout the procedure. - The supervising physician was present for theentire procedure from scope insertion until scope withdrawal. After obtaining informed consent, the endoscope waspassed under direct vision. All instruments were visually inspected immediatelybefore and after removal from the patient to ensure they are fully intact. Throughout the procedure, the patient's bloodpressure, pulse, and oxygen saturations were monitored continuously. The GIF-H180 Endoscope([id number]) was introduced through the mouth, and advanced to the efferent jejunalloop. The upper GI endoscopy was accomplished without difficulty. Findings & Specimens: The Z-line was irregular and was found 39 cm from the incisors. Evidence of a gastric bypass was found. A gastric pouch with a 4 cmlength from the GE junction to the gastrojejunal anastomosis was found. The staple line appeared intact.The gastrojejunal anastomosis was characterized by healthy appearing mucosa, visible sutures and thepresence of no stomal ulceration. This was traversed. Impression: - Z-line regular, 39 cm from the incisors. - Gastric bypass with a pouch 4 cm in length andintact staple line. Gastrojejunal anastomosis characterized by healthy appearingmucosa, visible sutures and no stomal ulceration. - No specimens collected. Recommendation: - Discharge patient to home (ambulatory). - Return to my office in 4 weeks. Yesica Rivera MD 08/20/2024 12:33:34 PM This report has been signed electronically. Jose G Figueroa MD us Sarah Saavedra PA-C GASTRO UPPER Final Resul t documented in this encounter Administered Medications Inactive Administered Medications - up to 3 most recent administrations Medication Order MAR Action Action Date Dose Rate Site fentaNYL (PF) inj 25 mcg 25 mcg, IV Push, ONCE, On Tue08/20/24 at 1330, For 1 dose, When given IV Push its recommended that the dose be given over 3 to 5 minutes., Post-op Given 08/20/2024 1:11 PM EDT 25 mcg Isolyte-S pH 7.4 infusion Intravenous, at 75 mL/hr, for Outpatient patient Plasma-LYTE 148, isolyte-S, and isolyte-S pH 7.4 are considered equivalent - including for MAR barcode scanning., CONTINUOUS, Starting on Tue08/20/24 at 1215, Until Tue08/20/24 at 1810, Pre-Op New Bag 08/20/2024 12:13 PM EDT ondansetron (Zofran) inj 4 mg 4 mg, IV Push, ONCE, On Tue08/20/24 at 1345, For 1 dose, PACU Given 08/20/2024 1:10 PM EDT 4 mg oxygen GAS Inhalation, OXYGEN, 3 doses, First dose on Tue08/20/24 at 1600, Last dose on Tue08/21/24 at 0800, Device/Managed by: Low Flow Device, Goal SPO2 (%): 91-95, Starting Device: Nasal Cannula, Initial Flow Rate (LPM): 2, Lowest Support: Nasal Cannula: Flow 0-6 LPM. Titrate up/down by 1 LPM., Higher Support: Non-Rebreather (NRB) Mask: Minimum of 10 LPM. Titrate to maintain bag inflation., Titration Interval: Q2 minutes and as needed., Notify Provider: For sudden DECREASE in resting SPO2 to less than 85% and when escalating delivery device., Wean patient off Oxygen when the oxygen saturation is greater than or equal to 93% documented in this encounter Active and Recently Administered Medications Due to Daylight Saving Time, this section may contain times in both EST and EDT. Scheduled Medication Order 08/18/2024 08/19/2024 08/20/2024 fentaNYL (PF) inj 25 mcg (COMPLETED) 25 mcg, IV Push, ONCE, On Tue08/20/24 at 1330, For 1 dose, When given IV Push its recommended that the dose be given over 3 to 5 minutes., Post-op 1311 (Given - Provid er: Alexandra Rm, RN) ondansetron (Zofran) inj 4 mg (COMPLETED) 4 mg, IV Push, ONCE, On Tue08/20/24 at 1345, For 1 dose, PACU 1310 (Given - Provid er: Alexandra Rm, RN) oxygen GAS Inhalation, OXYGEN, 3 doses, First dose on Tue08/20/24 at 1600, Last dose on Tue08/21/24 at 0800, Device/Managed by: Low Flow Device, Goal SPO2 (%): 91-95, Starting Device: Nasal Cannula, Initial Flow Rate (LPM): 2, Lowest Support: Nasal Cannula: Flow 0-6 LPM. Titrate up/down by 1 LPM., Higher Support: Non-Rebreather (NRB) Mask: Minimum of 10 LPM. Titrate to maintain bag inflation., Titration Interval: Q2 minutes and as needed., Notify Provider: For sudden DECREASE in resting SPO2 to less than 85% and when escalating delivery device., Wean patient off Oxygen when the oxygen saturation is greater than or equal to 93% Continuous Medication Order 08/18/2024 08/19/2024 08/20/2024 Isolyte-S pH 7.4 infusion Intravenous, at 75 mL/hr, for Outpatient patient Plasma-LYTE 148, isolyte-S, and isolyte-S pH 7.4 are considered equivalent - including for MAR barcode scanning., CONTINUOUS, Starting on Tue08/20/24 at 1215, Until Tue08/20/24 at 1810, Pre-Op 1213 (New Bag - Prov ider: Cheri Carver CRNA)1238 (Anes Intra-Op Fluid - Provider: Cheri Carver CRNA)1810 (Due: Stopped) documented in this encounter Advance Directives Documents on File Type Date Recorded 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
--- OUTSIDE RECORDS SUMMARY | 2024-08-22 20:51 | External Medical Summary | Summary of Care ---
Author Name Unknown Organization [facility] Address [address] [place] [address] Phone [phone] Care Team Providers Care Addiction Specialist Name Role Phone Sarah Saavedra PA-C Primary Care Provider [phone] Reason for Visit * Reason Comments Treatment micafungin Encounter Details Date Type Department Care Team (Latest Contact Info) Description 07/24/2024 2:00 PM EST Hem/Onc Treatment Hematology/Oncology Treatment, [address] [address] [facility], Chair10 Hem Onc [address] [place] [address] [phone] Vaginal candidiasis*; Iron deficiency anemia due to [...] said itching Latex Itching 09/26/2013 Linezolid 10/23/2014 [place] Other (Please comment) High 12/29/2014 Became unresponsive [...] suspected opioid overdose. Seek immediate medical attention. [email or web address] 1 Each 3 024 Active Cyclobenzaprine HCl [...] Emgality 120 MG/ML Subcutaneous Solution Auto-injector (Galcanezumab-g [facility]) Inject 1 mL (1 pen) under the skin Every Month. After completion of loading dose. 1 mL 4 07/26/19 25 7:47 AM EST 025 Active Nystatin 319614 UNIT/GM External Powder (Nystop) Apply topically to affected area 3 times a day. 60 g 1 Active Sucralfate 1 GM Oral Tablet (Carafate) Take 1 Tablet by mouth in the morning and 1 Tablet at noon and 1 Tablet in the evening and 1 Tablet before bedtime. Crush and dissolve tablet in 1 Tbsp (15 mL) of Maalox before ingestion.. 360 Tablet 01/16/2 025 Active Cetirizine HCl 10 MG Oral Tablet (ZyrTEC)Indicat ions:Seasonal allergies Take 1 Tablet by mouth in the morning. 90 Tablet 3 025 Active Onabotulinumtox [place] 100 UNIT Injection Solution Reconstituted (Botox) Inject [...] 025 Active Benzonatate 100 MG Oral Capsule (Teszana Sherwood)Indicati ons:Intermitten t asthma with reliever use [...] EST 025 2024 Discontinued(P atient preference/dis continuation) Ondansetron HCl [...] 1,000 mcgIndications:S/P gastric bypass 1000 mcg IM [id number] 08/30/2023 06/03/2026 Active cefTRIAXone (Rocephin) (350 mg/mL) [...] episo de depressed, severe, w/psychotic features 05/03/2022 [facility] current use of anticoagulant therapy 0 08/28/2021 Recurrent chest pain 07/31/2021 Assessment & Plan (09/02/2021 2:44 PM EDT): Referred to cardiology for workup--seen in Jul. [place] atypical for ACS. ED workup neg for [...] Plan: Primary reason for transfer from [facility] to [facility] rehab. C/o LE weakness and acute/chronic low back pain. Lumbar spine MRI reportedly performed @ [facility], not available for review Pt denies receiving steroid injections D/C IV dilaudid. Resume PO hydromorphone 4mg in setting of subjected acute on chronic low back pain, foot pain and now chest pain Encourage use of tylenol 1000mg or ibuprofen 600mg PRN Chronic suprapubic catheter 05/31/2014 Overview (05/31/2014): Placed 05/26 @ [facility] by interventional radiology for urinary retention and [...] without myelopathy 03/03/2006 Overview (09/15/2015): Rigth L5-S1. Blackey injections. Did not help. For discectomy at [facility] 08/31/06. Had subsequent MRSA graft Remove rods [...] sees Dr. Mock (spine surgeon) @ [facility] 10/24: lumbar spinal surgery by Dr. Bob [...] contraindication to starting her on opioids." [facility] discharge 10/04/15: patient exhibiting behavior of narcotic [...] 06/07/2014 Overview (06/07/2014): Pain contract established with [facility] ED 05/26 - give valium [...] Overview (01/04/2014): Cysto neg 05/21/13. Following with [facility] urology Miri Dixon BILLY as of 09/26/2013. Resolved s/p laminectomy L4-S1 October [address] @ [facility] [address] Heard. Assessment & Plan (05/07/2022 [...] persistent 12/08/200910/11 Overview (05/31/2014): Per Asthma Taxonomy, Advyasmany mayes PFT 04/30/14: normal Acidosis 09/16/2009 02/02/2018 Overview [...] followed by Mauricio THOMPSON @ [facility] ADVANCE DIRECTIVE INFORMATION 11/17/2004 08/06/2022 Overview (11/17/2004): No, Advance Directive brochure offered , patient declined. Allergic rhinitis 11/24/2001 11/30/2018 Overview (08/03/2011): zyrtec Fatty liver 08/06/2022 Chronic sinusitis 11/30/2018 Overview (10/20/2015): frequent documented as of this encounter (statuses as of 08/21/2024) Immunizations Name Administration Dates Next Due COVID-19 mRNA, LNP-s, No Pre serve, 2-Dose Series ([employer]) 06/25/2021,12/13/2020,11/15/2020 COVID-19, MRNA-LNP, PF, 30 M CG/0.3 [...] PPD 07/24/1987 Pneumococcal Conjugate Vacci ne, 20-valent (Lgozzej44) 12/15/2021 Pneumococcal Polysaccharide PPV23 (Pneumovax) 05/01/2008 Seasonal Influenza Vac., MDV , IM, 0.5 mL (Fluzone) 02/24/2015,03/05/2014,04/17/2013,04/05,03/26/2009,04/16/2008,04/26/2007 ,03/22/2006 Seasonal Influenza, PF, 6 M & above, IM , (FluLaval or Fluzone) 02/22/2023,03/03/2022,03/25/2021,03/18,02/15/2019,03/29/2018 Seasonal Influenza, Quadriva lent, No Preserve, IM 04/01/2016 Seasonal Influenza, Quadriva lent, No Preserve, Peds 04/27/2017 TD - Tetanus/Diptheria (ADULT) 03/03/1999 TDAP (age [...] Nursing Notes * Jing Vila RN - 07/24/2024 3:07 PM EST Patient tolerated infusion today without any difficulty. No side effects noted. Right chest port left accessed for consecutive tx days. VAD flushed with 10 ml NSS and Heparin 5 ml (100 units/ml). Green cap placed on the end. Patient left IVC by wheelchair. Accompanied by Friend. Voiced no complaints. Jing Vila RN 07/24/2024 3:08 PM * Malu Rodriguez RN - 07/24/2024 2:10 PM EST Chair 5 for Micafungin. Patient states she has had before and denies previous reactions. Right chest port accessed. Patient requesting port remain in for following treatments this week. Patient instructed on use of heat and massage functions where applicable. Patient shown how to operate the heat function of the chair and to alert nursing staff if the chair feels too warm. Patient instructed on the risk of potential brothers while using the heat function. [facility] Nursing Care Plan ID is not set. 07/24/24 Safety and Risk for Injury Patient will remain free from injury. Assess patient's risk for falls per policy. Perform safety rounds per policy. Provide and maintain safe environment. Goals: Pt will be free of falls. Possible barriers to meeting goals: IV pole and ambulation. Stability of the patient: Moderately stable - low risk of patient condition declining or worsening Summary regarding today's goals: Met: Pt was free of falls in the clinic. Malu Rodriguez RN documented in this encounter Plan of Treatment Upcoming Encounters Date Type Department Care Team (Late st Contact Info) Description 08/29/2024 1:00 PM EDT Office Visit Emma Abbott [address] [phone] Sarah Saavedra PA-C [address] [phone] 09/12/2024 10:22 AM EDT Hospital Encounter [facility], Operating Room [facility] [address] [place] [phone] Edwardo Arias, [address] [phone] 09/12/2024 10:22 AM EDT - 09/12/2024 10:41 AM EDT Surgery [facility], Operating Room [facility] [address] [place] [phone] Edwardo Arias, DO [address] [place] [phone] INJECTION SPINE LUMBAR OR SACRAL 09/17/2024 1:15 PM EDT Office Visit Orthopaedics [facility] [address] [place] [phone] Windy Haley PA-C [address] [place] [address] 09/18/2024 10:20 AM EDT Office Visit Infectious Disease, [facility] [address] [place] [address] Radha Fuentes MD [address] [place] [address] 10/03/2024 10:40 AM EDT [facility] [address] [place] [phone] Lizet Briseno MD [address] [place] [address] 10/03/2024 3:40 PM EDT Office Visit Neurology[address] [address] Maureen Bowie MD [address] [place] [address] 10/12/2024 10:30 AM EDT Nurse Only Hematology/Oncolog y Treatment, [address], [place] [phone] [facility], Chair10 Hem Onc [address] [place] [phone] 10/15/2024 3:00 PM EDT Telemedicine [facility], [address] [place] [address] Amadou Rene CRNP [address] [place] [phone] 10/16/2024 2:30 PM EDT Office Visit Hematology/Oncolog y, [address] [phone] Radha Espinoza CRNP [address] [place], [place] [phone] 01/21/2025 8:30 AM EDT Office Visit Urology, [place] [address] [place] [address] Nadir Foy MD [address] [place] [address] 03/28/2025 9:45 AM EDT Office Visit General Surgery, [facility] [address] [facility] [place] [address] Manolo Beckett MD [address] [place], [place] [phone] Scheduled Procedures Name Priority Associated Diagnoses Date/Ti [...] this encounter Medical Devices Implanted Type Area Criminal Psychologist Device Identifier Shelf Expiration Date Model / Serial / Lot Plate Small Mtpj - [id number] Implanted:Qty: 1 on 11/15/2017 by Cristobal Calvillo MD [place] [facility] Left: Foot [id number] / / Screw Locking 2.7x14mm - [id number] Implanted:Qty: 1 on 11/15/2017 by Cristobal Calvillo MD [place] [facility] [place]: Foot / / 2.7 X 16mm Locking Screw Implanted:Qty: 2 on 11/15/2017 by Cristobal Calvillo MD [place] [facility] [place]: Foot [employer] [id number] / / 2.7 X 20 Locking Screw Implanted:Qty: 1 on 11/15/2017 by Cristobal Calvillo MD [place] [facility] [place]: Foot [employer] / / 2.7 X 18mm Locking Screw Implanted:Qty: 1 on 11/15/2017 by Cristobal Calvillo MD [place] [facility] [place]: Foot [employer] / / Screw Locking 2.7x10mm - [id number] Implanted:Qty: 1 on 11/15/2017 by Cristobal Calvillo MD [place] [facility] [place]: Foot [employer] / / 4.0mm X 44 Mm Compression Screw Implanted:Qty: 1 on 10/09/2018 by Bao Hernández MD at [place] [facility] Left: Foot AR-8740-44 H / / Description:Implant from set 2.5x30 Compression Screw Implanted:Qty: 1 on 10/09/2018 by Bao Hernández MD [place] [facility] [place]: Foot [employer] AR-8725-30 H / / Screw [employer] 2.5lws81jx - [id number] Implanted:Qty: 2 on 02/01/2022 by Bao Hernández MD [place] [facility] Right: Toe [employer] [id number] / / Plate Mtpj - [id number] Implanted:Qty: 1 on 02/01/2022 by Bao Hernández MD at [place] [facility] Right: Foot [employer] [id number] / / Screw Locking 2.7x10mm - [id number] Implanted:Qty: 2 on 02/01/2022 by Bao Hernández MD [place] [facility] Right: Foot [employer] [id number] / / Screw Locking 2.7x12mm - [id number] Implanted:Qty: 3 on 02/01/2022 by Bao Hernández MD at [place] [facility] Right: Foot [employer] / / Screw Locking 2.7x14mm - [id number] Implanted:Qty: 1 on 02/01/2022 by Bao Hernández MD at [place] [facility] Right: Foot [employer] [id number] / / Screw [employer] 2.2ofn92nl - [id number] Implanted:Qty: 1 on 02/01/2022 by Bao Hernández MD [place] [facility] Right: Toe [employer] [id number] / / Port Implant W/8f Poly Cath - [id number] Implanted:Qty: 1 on 06/02/2022 by Lawrence Cat DO at OR [facility] Right: Chest CR BARD : PERIPHERAL VASCULAR [id number] 05/12/2023 [id number] / / [id number] documented as of this encounter Procedures Procedure Name Priority Date/Time Associated Diagnosis Comments DIFFERENTIAL, AUTOMATED Routine 07/24/2024 1:31 PM EST Iron deficiency anemia due to chronic blood loss RETICULOCYTE PANEL Routine 07/24/2024 1: 31 PM EST Iron deficiency anemia due to chronic blood loss FOLIC ACID Routine 07/24/2024 1:31 PM EST Iron deficiency anemia due to chronic blood loss CBC Routine 07/24/2024 1:31 PM EST Iron deficiency anemia due to chronic blood loss CBC Routine 07/24/2024 1:31 PM EST Iron deficiency anemia due to chronic blood loss documented in this encounter Results * DIFFERENTIAL, AUTOMATED (07/24/2024 1:31 PM EST) WBC 9.50 4.00 - 10.80 K/uL 07/24/2024 1:56 PM EST LAB[facility] Neutrophils % 57.0 40.0 - 75.0 % 07/24/2024 1:56 PM EST [facility] Lymphocytes % 34.6 18.0 - 42.0 % 07/24/2024 1:56 PM EST [facility] Monocytes % 6.0 1.0 - 11.0 % 07/24/2024 1:56 PM EST [facility] Eosinophils % 1.3 0.0 - 6.0 % 07/24/2024 1:56 PM EST [facility] Basophils % 0.7 0.0 - 2.0 % 07/24/2024 1:56 PM EST [facility] Immature Granulocytes % 0.4 0.0 - 2.0 % 07/24/2024 1:56 PM EST [facility] Absolute Neutrophils 5.41 1.80 - 7.70 K/uL 07/24/2024 1:56 PM EST [facility] Absolute Lymphocytes 3.29 1.00 - 4.80 K/ul 07/24/2024 1:56 PM EST LABORATORY [facility] Absolute Monocytes 0.57 0.00 - 1.10 K/uL 07/24/2024 1:56 PM EST [facility] Absolute Eosinophils 0.12 0.00 - 0.70 K/uL 07/24/2024 1:56 PM EST LABORATORY [facility] Absolute Basophils 0.07 0.00 - 0.20 K/uL 07/24/2024 1:56 PM EST LABORATORY [facility] Absolute Immature Granulocytes 0.04 0.00 - 0.20 K/uL 07/24/2024 1:56 PM EST LABORATORY [facility] Blood Blood sample taken from central line / Unknown Central Line / Unknown 07/24/2024 1:31 PM EST 07/24/2024 1:53 PM EST us Radha CERVANTES LAB BLOOD ORDERABLES Louise delcid Result LABORATORY [address] [address] * (ABNORMAL) CBC (07/24/2024 1:31 PM EST) WBC 9.50 4.00 - 10.80 K/uL 07/24/2024 1:56 PM EST LABORATORY [facility] RBC 4.28 3.85 - 5.15 M/uL 07/24/2024 1:56 PM EST LABORATORY [facility] HGB 9.9(L) 12.0 - 15.3 g/dL 07/24/2024 1:56 PM EST LABORATORY GL HCT 33.2(L) 36.0 - 45.2 % 07/24/2024 1:56 PM EST LABORATORY [facility] MCV 77.6 81.5 - 97.5 fL 07/24/2024 1:56 PM EST LABORATORY GL MCH 23.1 27.0 - 34.0 pg 07/24/2024 1:56 PM EST LABORATORY GL MCHC 29.8 32.0 - 36.0 g/dL 07/24/2024 1:56 PM EST LABORATORY [facility] RDW 18.4 11.5 - 15.5 % 07/24/2024 1:56 PM EST LABORATORY [facility] PLT 476(H) 140 - 400 K/uL 07/24/2024 1:56 PM EST LABORATORY [facility] MPV 9.0 6.6 - 11.1 fL 07/24/2024 1:56 PM EST LABORATORY [facility] nRBCs 0 <=0 /100 WBCs 07/24/2024 1:56 PM EST LABORATORY [facility] Blood Blood sample taken from central line / Unknown Central Line / Unknown 07/24/2024 1:31 PM EST 07/24/2024 1:53 PM EST Radha CERVANTES LAB BLOOD ORDERABLES Louise l Result LABORATORY [facility] [address] [place] [address] * FOLIC ACID (07/24/2024 1:31 PM EST) Pathologist [facility] Folic Acid 9.4 >4.5 ng/mL 07/24/2024 10:51 PM EST LAB[facility]ATORY [facility] Blood Blood sample taken from central line / Unknown Central Line / Unknown 07/24/2024 1:31 PM EST 07/24/2024 1:53 PM EST Radha CERVANTES LAB BLOOD ORDERABLES Luoise l Result [facility] [address] [place] [address] * (ABNORMAL) RETICULOCYTE PANEL (07/24/2024 1:31 PM EST) Reticulocyte Percent 1.99(H) 0.80 - 1.90 % 07/24/2024 1:56 PM EST LABORATORY [facility] Absolute Reticulocyte 85.2 31.3 - 100.1 K/uL 07/24/2024 1:56 PM EST LABORATORY [facility] Immature Reticulocyte Fraction 30.2(H) 2.5 - 20.6 % 07/24/2024 1:56 PM EST LABORATORY [facility] Reticulocyte Hemoglobin 24.6(L) 29.7 - 37.4 pg 07/24/2024 1:56 PM EST LABORATORY [facility] Blood Blood sample taken from central line / Unknown Central Line / Unknown 07/24/2024 1:31 PM EST 07/24/2024 1:53 PM EST Radha Young CERVANTES LAB BLOOD ORDERABLES Louise farhana Result LABORATORY [facility] [address] [place] [address] documented in this encounter Visit Diagnoses [...] Lock, PRN Other, IV Flush, Starting on Tue07/24/24 at 1326, Until Tue07/24/24 at 1909, For 24 hours, Do not flush if lock, PICC, or central line not in place; IV infusing or unable to flush.Indications:Vaginal candidiasis Given 07/24/2024 3:06 PM EST 500 Units Micafungin sodium (Mycamine) 100 mg in NSS 100 mL ivpb 100 mg, IV Piggyback, ONCE, 1 dose, On Tue07/24/24 at 1400, Administer over 60 MinutesIndications:Vagina l candidiasis Start Infusion 07/24/2024 1:47 PM EST 100 mg 105 mL/hr NSS infusion FOR HYDRATION Intravenous, at 50 mL/hr Administer over 10 Hours, CONTINUOUS, Starting on Tue07/24/24 at 1415, Until Tue07/24/24 at 1909Indications:Vaginal candidiasis Start Infusion 07/24/2024 1:44 PM EST 500 mL 50 mL/hr sodium chloride 0.9 % flush central line 10 mL 10 mL, IV Push, PRN Other, IV Flush, Starting on Tue07/24/24 at 1326, Until Tue07/24/24 at 1909, For 24 hours, Do not flush if lock, PICC, or central line not in place; IV infusing or unable to flush.Indications:Vaginal candidiasis Given 07/24/2024 3:06 PM EST 10 mL documented in this encounter Advance Directives Documents on File Type Date Recorded Patient Top Cager Expl anation POLST 12/03/2020 POLST PENNSYLVA ROSA [...] Agent Relationship Communication Ni Druckemiller Grandparent [place] Health Care Agent Andria Addison Mother Emergency Contact Care Teams Addiction Specialist Relationship Specialty Start Date End Date Sarah Saavedra PA-C [address] [address] PCP - General Physician Billboard Erector Helper 09/06/23 documented as of this encounter
--- OUTSIDE RECORDS SUMMARY | 2024-08-22 20:51 | External Medical Summary | Summary of Care ---
Author Name Unknown Organization [facility] Address [address] [place] [address] Phone [phone] Care Team Providers Care Smash Fixer Name Role Phone Sarah Saavedra PA-C Primary Care Provider [phone] [phone] Reason for Visit * Reason Comments Infusion Monoferric &micofung in * Episode Based Medications (Routine) - Authorized Specialty Diagnoses / Procedures Referred By Contman t Referred To Contact Diagnoses Iron deficiency anemia due to chronic blood loss Procedures MS INJ. FE DERISOMALTOSE 10 MG Radha Espinoza CRNP [address] [place] [address] Phone: tel: fax: Hematology/Oncology Treatment, [address] [address] Phone: tel: fax: Referral ID Status Reason Start Date Expiration Date V isits Requested Visits Authorized [id number] Authorized 07/24/2024 07/24/2025 [id number] Encounter Details Date Type Department Care Team (Latest Contact Info) Description 07/27/2024 11:30 AM EST Hem/Onc Treatment Hematology/Oncology Treatment, [facility] [address] [facility] LUCYMICHAEL FELDMAN [address] [facility], Chair5 Hem Onc [address] [place] [address] [place] [address] Vaginal candidiasis*; Iron deficiency anemia [...] said itching Latex Itching 09/26/2013 Linezolid 10/23/2014 Sewell Other (Please comment) High 12/29/2014 Became unresponsive [...] suspected opioid overdose. Seek immediate medical attention. [email or web address]?v=[email or web address] 1 Each 3 024 Active Cyclobenzaprine HCl [...] Emgality 120 MG/ML Subcutaneous Solution Auto-injector (Galcanezumab-g [employer] [facility]) Inject 1 mL (1 pen) under the skin Every Month. After completion of loading dose. 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 [place] atypical for ACS. ED workup neg for [...] & Plan: Primary reason for transfer from [facility] to [facility] rehab. C/o LE weakness and acute/chronic low back pain. Lumbar spine MRI reportedly performed @ [facility], not available for review Pt denies receiving steroid injections D/C IV dilaudid. Resume PO hydromorphone 4mg in setting of subjected acute on chronic low back pain, foot pain and now chest pain Encourage use of tylenol 1000mg or ibuprofen 600mg PRN Chronic suprapubic catheter 05/31/2014 Overview (05/31/2014): Placed 05/26 @ [facility] by interventional radiology [...] without myelopathy 03/03/2006 Overview (09/15/2015): Rigth L5-S1. Mcadoo injections. Did not help. For discectomy at [facility] 08/31/06. Had subsequent [...] 01/23: sees Dr. Mock (spine surgeon) @ [facility] 10/24: lumbar spinal [...] a contraindication to starting her on opioids." [facility] discharge 10/04/15: patient exhibiting behavior [...] 06/07/2014 Overview (06/07/2014): Pain contract established with [facility] ED 05/26 - give valium [...] Overview (01/04/2014): Cysto neg 05/21/13. Following with [facility] urology Miri CERVANTES as of 09/26/2013. Resolved s/p laminectomy L4-S1 October [address] @ [facility] [address] Heard. Assessment & Plan (05/07/2022 [...] wellbutrin 03/27: followed by Mauricio THOMPSON @ [facility] ADVANCE DIRECTIVE INFORMATION 11/17/2004 08/06/2022 Overview [...] IM 05/27/2009 Pneumococcal Conjugate Vacci ne, 20-valent ([id number]) 12/15/2021 Pneumococcal Polysaccharide PPV23 (Pneumovax) 05/01/2008 Seasonal [...] potential brothers while using the heat function. [facility] Nursing Care Plan ID is not [...] Description 08/29/2024 1:00 PM EDT Office Visit [facility] [address] [place] [address] Sarah Saavedra PA-C [address] [place] [address] 09/12/2024 10:22 AM EDT Hospital Encounter [place] [facility], Operating Room [facility] [address] [place] [phone] Edwardo Arias, [address] [phone] 09/12/2024 10:22 AM EDT - 09/12/2024 10:41 AM EDT Surgery [place] [facility], Operating Room O[facility] [address] [place] [phone] Edwardo Arias, [address] [phone] INJECTION SPINE LUMBAR OR SACRAL 09/17/2024 1:15 PM EDT [facility] [place] [facility] [address] [place] [phone] Windy Haley PA-C [address] [place] [address] 09/18/2024 10:20 AM EDT Office Visit Infectious Disease, [address] [phone] Radha Fuentes MD [address] [place] [address] 10/03/2024 10:40 AM EDT Office Visit Family [facility] [address] [place] [address] Lizet Briseno MD [address] [place] [address] 10/03/2024 3:40 PM EDT [facility] [address] [place] [address] Maureen Bowie MD [address] [place] [address] 10/12/2024 10:30 AM EDT Nurse Only Hematology/Oncolog y Treatment, [address] [phone] Glh, Chair10 Hem Onc [address] [place] [phone] 10/15/2024 3:00 PM EDT Telemedicine Interventional [facility] Center, [address] [phone] Amadou Rene CRNP [address] [place] [address] 10/16/2024 2:30 PM EDT Office Visit Hematology/Oncolog y, [address] [phone] Radha Espinoza CRNP [address] [place], [place] [phone] 01/21/2025 8:30 AM EDT Office Visit Urology, [place] [address] [place] [address] Nadir Foy MD [address] [place] [address] 03/28/2025 9:45 AM EDT Office Visit General Surgery, [facility] [address] [place] [address] Manolo Beckett MD [address] [facility] [place] [address] Scheduled Procedures Name [...] this encounter Medical Devices Implanted Type Area Instrumentation And Control Technician Device Identifier Shelf Expiration Date Model / Serial / Lot Plate Small Mtpj - [id number] Implanted:Qty: 1 on 11/15/2017 by Cristobal Calvillo MD at [facility] Left: Foot [id number] / / Screw Locking 2.7x14mm - [id number] Implanted:Qty: 1 on 11/15/2017 by Cristobal Calvillo MD at OR [facility] Left: Foot / / 2.7 X 16mm Locking Screw Implanted:Qty: 2 on 11/15/2017 by Cristobal Calvillo MD at OR [facility] Left: Foot [employer] / / 2.7 X 20 Locking Screw Implanted:Qty: 1 on 11/15/2017 by Cristobal Calvillo MD at OR [facility] Left: Foot [employer] / / 2.7 X 18mm Locking Screw Implanted:Qty: 1 on 11/15/2017 by Cristobal Calvillo MD at OR [facility] Left: Foot [employer] / / Screw Locking 2.7x10mm - [id number] Implanted:Qty: 1 on 11/15/2017 by Cristobal Calvillo MD at OR [facility] Left: Foot [employer] / / 4.0mm X 44 Mm Compression Screw Implanted:Qty: 1 on 10/09/2018 by Bao Hernández MD at OR [facility] Left: Foot AR-8740-44 H / / Description:Implant from set 2.5x30 Compression Screw Implanted:Qty: 1 on 10/09/2018 by Bao Hernández MD at OR [facility] Left: Foot [employer] AR-8725-30 H / / Screw [employer] 2.2wbi51jc - [id number] Implanted:Qty: 2 on 02/01/2022 by Bao Hernández MD at OR [facility] Right: Toe EXACTECH 2053-7350 / / Plate Mtpj - [id number] Implanted:Qty: 1 on 02/01/2022 by Bao eHrnández MD at OR [facility] Right: Foot [employer] 1808-2959 / / Screw Locking 2.7x10mm - [id number] Implanted:Qty: 2 on 02/01/2022 by Bao Hernández MD at OR [facility] Right: Foot [employer] 0511-7099 / / Screw Locking 2.7x12mm - [id number] Implanted:Qty: 3 on 02/01/2022 by Bao Hernández MD at OR [facility] Right: Foot [employer] / / Screw Locking 2.7x14mm - [id number] Implanted:Qty: 1 on 02/01/2022 by Bao Hernández MD at OR [facility] Right: Foot [employer] / / Screw [employer] 2.0sgm69hr - [id number] Implanted:Qty: 1 on 02/01/2022 by Bao Hernández MD at OR [facility] Right: Toe [employer]CH 7526-3700 / / Port Implant W/8f Poly Cath - [id number] Implanted:Qty: 1 on 06/02/2022 by Lawrence Cat DO at OR [facility] Right: Chest CR BARD : PERIPHERAL VASCULAR [id number] 05/12/2023 [id number] / / [id number] documented as of this encounter Visit Diagnoses [...] Documents on File Type Date Recorded Patient Foster Winder Expl anation POLST 12/03/2020 POLST KARLO LEE [...] Relationship Communication Ni Yazminkathiekennedyr Grandparent First [facility] Health Care Agent Andria Addison Mother Emergency Contact Care Teams Smash Fixer Relationship Specialty Start Date End Date Sarah Saavedra PA-C [address] [place] [phone] PCP - General Physician Door Patcher 09/06/23 documented as of this encounter
--- OUTSIDE RECORDS SUMMARY | 2024-08-22 20:51 | External Medical Summary | Summary of Care ---
Author Name Unknown Organization [facility] Address [address] [place] [address] Phone [phone] Care Team Providers Care Environmental Property Assessor Name Role Phone Sarah Saavedra PA-C Primary Care Provider [phone] [phone] Reason for Visit * Reason Comments Medication Administration Micafungin Encounter Details Date Type Department Care Team (Latest Contact Info) Description 07/26/2024 1:15 PM EST Hem/Onc Treatment Hematology/Oncology Treatment, [address] [address] [facility], Chair6 Hem Onc [address] [place] [address] [phone] Vaginal candidiasis* Allergies Active Allergy Reactions Criticality [...] said itching Latex Itching 09/26/2013 Linezolid 10/23/2014 Converse Other (Please comment) High 12/29/2014 Became unresponsive [...] suspected opioid overdose. Seek immediate medical attention. [email or web address] 1 Each 3 024 Active Cyclobenzaprine HCl [...] Emgality 120 MG/ML Subcutaneous Solution Auto-injector (Galcanezumab-g [facility]) Inject 1 mL (1 pen) under the skin Every Month. After completion of loading dose. 1 mL 4 07/26/19 25 7:47 AM EST 025 Active Nystatin 032678 UNIT/GM External Powder (Nystop) Apply topically to [...] mouth in the morning. 90 Tablet 3 Active Onabotulinumtox Eladio 100 UNIT Injection Solution [...] 1,000 mcgIndications:S/P gastric bypass 1000 mcg IM [id number] 08/30/2023 06/03/2026 Active cefTRIAXone (Rocephin) (350 mg/mL) [...] episo de depressed, severe, w/psychotic features 05/03/2022 [facility] current use of anticoagulant therapy 0 08/28/2021 Recurrent chest pain 07/31/2021 Assessment & Plan (09/02/2021 2:44 PM EDT): Referred to cardiology for workup--seen in Jul. [place] atypical for ACS. ED workup neg for [...] & Plan: Primary reason for transfer from [facility] to [facility] rehab. C/o LE weakness and acute/chronic low back pain. Lumbar spine MRI reportedly performed @ [facility], not available for review Pt denies receiving steroid injections D/C IV dilaudid. Resume PO hydromorphone 4mg in setting of subjected acute on chronic low back pain, foot pain and now chest pain Encourage use of tylenol 1000mg or ibuprofen 600mg PRN Chronic suprapubic catheter 05/31/2014 Overview (05/31/2014): Placed 05/26 @ [facility] by interventional radiology for urinary retention and [...] injections. Did not help. For discectomy at [facility] 08/31/06. Had subsequent MRSA graft Remove rods [...] 01/23: sees Dr. Mock (spine surgeon) @ [facility] 10/24: lumbar spinal surgery by Dr. Bob [...] a contraindication to starting her on opioids." [facility] discharge 10/04/15: patient exhibiting behavior of narcotic [...] 06/07/2014 Overview (06/07/2014): Pain contract established with [facility] ED 05/26 - give valium [...] Overview (01/04/2014): Cysto neg 05/21/13. Following with [facility] urology Miri Dixon BILLY as of 09/26/2013. Resolved s/p laminectomy L4-S1 October 2013 @ [place] [address] Dr[address] Heard. Assessment & Plan (05/07/2022 [...] wellbutrin 03/27: followed by Mauricio THOMPSON @ [facility] ADVANCE DIRECTIVE INFORMATION 11/17/2004 08/06/2022 Overview (11/17/2004): No, Advance Directive brochure offered , patient declined. Allergic rhinitis 11/24/2001 11/30/2018 Overview (08/03/2011): zyrtec Fatty liver 08/06/2022 Chronic sinusitis 11/30/2018 Overview (10/20/2015): frequent documented as of this encounter (statuses as of 08/21/2024) Immunizations Name Administration Dates Next Due COVID-19 mRNA, LNP-s, No Pre serve, 2-Dose Series (We[employer]ar[employer]) 06/25/2021,12/13/2020,11/15/2020 COVID-19, MRNA-LNP, PF, 30 M CG/0.3 mL, 12 YRS AND ABOVE, IM ([employer]-Comirnaty) 03/29/2023 Covid-19, Mrna, Lnp-s, Pf, B ivalent, 30 Mcg, IM, 12 yrs and above (Pfizer) 06/17/2022 H1N1 2008 Influenza, IM 05/27/2009 Pneumococcal Conjugate Vacci ne, 20-valent ([id number]) 12/15/2021 Pneumococcal Polysaccharide PPV23 (Pneumovax) 05/01/2008 Seasonal [...] No 11/14/2023 Does the household have a [facility] liv[facility] source of income? (Household - for ages [...] Sign Reading Time Taken Comments Blood Pressure 134/82 07/26/2024 1:20 PM EST Pulse 93 07/26/2024 1:20 PM EST Temperature 36.6 C (97.8 F) 07/26/2024 1:20 PM ES T Respiratory Rate 18 07/26/2024 1:20 PM EST Oxygen Saturation - - Inhaled [...] Nursing Notes * Lisa Elaine LPN - 07/26/2024 2:42 PM EST Completed infusion without problems. Port flushed with 10ml NSS, 5 ml heparin and green capped. Patient left IVC by wheelchair. Accompanied by Friend. Voiced no complaints. Lisa Elaine LPN 07/26/2024 2:44 PM documented in this encounter Plan of Treatment Upcoming Encounters Date Type Department Care Team (Late st Contact Info) Description 08/29/2024 1:00 PM EDT Office Visit [facility] [address] [place] [phone] Sarah Saavedra PA-C [address] [place] [address] 09/12/2024 10:22 AM EDT Hospital Encounter OR OSHP, Operating Room OSHP [address] [place] [phone] Edwardo Arias, [address] [phone] 09/12/2024 10:22 AM EDT - 09/12/2024 10:41 AM EDT Surgery [facility], Operating Room OSHP [address] [place] [phone] Edwardo Arias, [address] [phone] INJECTION SPINE LUMBAR OR [facility]CRAL 09/17/2024 1:15 PM EDT Office Visit [place]ed[facility] [place] [address] [place] [phone] Windy Haley PA-C [address] [place], [place] [phone] 09/18/2024 10:20 AM EDT Office Visit Infectious Disease, [facility] [address] [place] [address] Radha Fuentes MD [address] [place] [address] 10/03/2024 10:40 AM EDT Office Visit [facility] [address] [place] [address] Lizet Briseno MD [address] [place] [address] 10/03/2024 3:40 PM EDT Office Visit Neurology, [address] [address] Maureen Bowie MD [address] [place] [address] 10/12/2024 10:30 AM EDT Nurse Only Hematology/Oncolog y Treatment, [address] [address] Gl, Chair10 Hem Onc [address] [place] [address] 10/15/2024 3:00 PM EDT Telemedicine Interventional Pain Center, [address] [phone] Amadou Rene CRNP [address] [place] [address] 10/16/2024 2:30 PM EDT Office Visit Hematology/Oncolog y, [address] [address] Radha Espinoza CRNP [address] [place], [place] [phone] 01/21/2025 8:30 AM EDT Office Visit Urology, [place] [address] [place] [address] Nadir Foy MD [address] [facility], [place] [phone] 03/28/2025 9:45 AM EDT Office Visit General Surgery, [facility] [address] [facility] [place] [address] Manolo Beckett MD [address] [place] [address] Scheduled Procedures Name Priority Associated Diagnoses Date/Ti [...] this encounter Medical Devices Implanted Type Area Tile Decorator Device Identifier Shelf Expiration Date Model / Serial / Lot Plate Small Mtpj - [id number] Implanted:Qty: 1 on 11/15/2017 by Cristobal Calvillo MD at [place] [facility] Left: Foot / / Screw Locking 2.7x14mm - [id number] Implanted:Qty: 1 on 11/15/2017 by Cristobal Calvillo MD at [place] [facility] Left: Foot [id number] / / 2.7 X 16mm Locking Screw Implanted:Qty: 2 on 11/15/2017 by Cristobal Calvillo MD at [place] [facility] Left: Foot [employer] / / 2.7 X 20 Locking Screw Implanted:Qty: 1 on 11/15/2017 by Cristobal Calvillo MD at [facility] Left: Foot [employer] / / 2.7 X 18mm Locking Screw Implanted:Qty: 1 on 11/15/2017 by Cristobal Calvillo MD at [place] [facility] Left: Foot [employer] / / Screw Locking 2.7x10mm - [id number] Implanted:Qty: 1 on 11/15/2017 by Cristobal Calvillo MD at [place] [facility] Left: Foot [employer] / / 4.0mm X 44 Mm Compression Screw Implanted:Qty: 1 on 10/09/2018 by Bao Hernández MD at [place] [facility] Left: Foot AR-8740-44 H / / Description:Implant from set 2.5x30 Compression Screw Implanted:Qty: 1 on 10/09/2018 by Bao Hernández MD at [place] [facility] Left: Foot [employer] AR-8725-30 H / / Screw [employer] 2.1zor18kg - [id number] Implanted:Qty: 2 on 02/01/2022 by Bao Hernández MD at [place] [facility] Right: Toe EXACTECH 2149-9117 / / Plate Mtpj - [id number] Implanted:Qty: 1 on 02/01/2022 by Bao Hernández MD at OR [facility] Right: Foot EXACTECH 9241-6039 / / Screw Locking 2.7x10mm - [id number] Implanted:Qty: 2 on 02/01/2022 by Bao Hernández MD at OR [facility] Right: Foot EXACTECH 3705-1361 / / Screw Locking 2.7x12mm - [id number] Implanted:Qty: 3 on 02/01/2022 by Bao Hernández MD at [facility] Right: Foot EX[employer]ECH 9768-1720 / / Screw Locking 2.7x14mm - [id number] Implanted:Qty: 1 on 02/01/2022 by Bao Hernández MD at [place] [facility] Right: Foot EXACTECH 2432-9226 / / Screw [employer] 2.6zri25bg - [id number] Implanted:Qty: 1 on 02/01/2022 by Bao Hernández MD at [place] [facility] Right: Toe EXACTECH 3974-3887 / / Port Implant W/8f Poly Cath - [id number] Implanted:Qty: 1 on 06/02/2022 by Lawrence Cat DO at OR [facility] Right: Chest CR BARD : PERIPHERAL VASCULAR [id number] 05/12/2023 [id number] / / [id number] documented as of this encounter Visit Diagnoses [...] mg, IV Piggyback, ONCE, 1 dose, On Tue07/26/24 at 1345, Administer over 60 Minutes, +++ IVC for 07/26 +++Indications:Vaginal candidiasis Start Infusion 07/26/2024 1:25 PM EST 100 mg 105 mL/hr NSS infusion FOR HYDRATION Intravenous, at 50 mL/hr Administer over 10 Hours, CONTINUOUS, Starting on Tue07/26/24 at 1400, Until Tue07/26/24 at 1846Indications:Vaginal candidiasis Start Infusion 07/26/2024 1:24 PM EST 500 mL 50 mL/hr documented in this encounter Advance Directives Documents on File Type Date Recorded Patient Supply Chain Coordinator Expl anation POLST 12/03/2020 POLST PENNSYLVA ROSA [...] Name Relationship Healthcare Agent Relationship Communication Ni Drholgeriller Grandparent [facility] Agent Andria Addison Mother Emergency Contact Care Teams Environmental Property Assessor Relationship Specialty Start Date End Date Sarah Saavedra PA-C [address] [place] [phone] PCP - General Physician Hypo Splasher 09/06/23 documented as of this encounter
--- OUTSIDE RECORDS SUMMARY | 2024-08-22 20:52 | External Medical Summary ---
Author Name Unknown Address Unknown Organization : Laboratory Report Ordering Provider Test Date Status VIVIANA FRANCOIS 08/20/2024 12:45:28 Final Observation Date Value Abnormality Reference (Units ) Status Glucose Point of Care 08/20/2024 12:45:28 87 70-120 (mg/dL) Final Performing Location
--- OUTSIDE RECORDS SUMMARY | 2024-08-22 20:52 | External Medical Summary | Summary of Care ---
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 Name Role Phone Sarah Saavedra PA-C Primary Care Provider [phone] Encounter Details Date Type Department Care Team (Latest Contact Info) Description 08/07/2024 1:30 PM EST Hem/Onc Treatment Hematology/Oncolog y Treatment, [address] [address] [facility] [place] [facility] Hem Onc [address] [place] [id number] Vaginal candidiasis*; Tolerance to properly prescribed and administered drug, subsequent encounter Allergies Active Allergy Reactions Criticality Noted Date [...] said itching Latex Itching 09/26/2013 Linezolid 10/23/2014 [place] Other (Please comment) High 12/29/2014 Became unresponsive [...] as of this encounter (statuses as of 08/20/2024) Medications docusate sodium (COLACE) 100 MG Capsule [...] overdose. Seek immediate medical attention. [email or web address] 1 Each 3 024 Active Cyclobenzaprine HCl [...] Emgality 120 MG/ML Subcutaneous Solution Auto-injector (Galcanezumab-g [facility]) Inject 1 mL (1 pen) under the skin Every Month. After completion of loading dose. 1 mL 4 07/26/19 25 7:47 AM EST 025 Active Nystatin 093452 UNIT/GM External Powder (Nystop) Apply topically to [...] or Vomiting. 30 Tablet 1 025 Active Fluticasone Propionate 50 MCG/ACT Nasal Suspension (Flonase)Indica tions:Nasal congestion Administer 2 Sprays into each nostril in the morning. 18.2 mL 1 025 Active ZOLMitriptan 5 MG Oral Tablet (Zomig) 1 at onset of migraine may repeat in 2 hours max 2 doses in 24 hours 10 Tablet 5 024 2024 Discontinued Loperamide HCl 2 MG [...] Severe. 42 Tablet 025 2024 Discontinued(R efill) Amoxicillin 500 MG Oral Capsule (Amoxil)Indicat ions:Suspected UTI Take 1 Capsule by mouth in the morning and 1 Capsule at noon and 1 Capsule before bedtime. 30 Capsule 025 2024 Discontinued Hospital, Clinic, or Other Facility Administered Medication Ordered Dose Route Frequency Start Date End Date Status vitamin b-12 (Cyanocobalamin) inj 1,000 mcgIndications:S/P gastric bypass 1000 mcg IM [id number] 08/30/2023 06/03/2026 Active cefTRIAXone (Rocephin) (350 mg/mL) inj dilution 1,000 mgIndications:Urinary tract infection without hematuria, site unspecified 1000 mg IM Q24H 06/01/2024 Active cefTRIAXone (Rocephin) (350 mg/mL) inj dilution 1,000 mgIndications:Urinary tract infection associated with catheterization of urinary tract, unspecified indwelling urinary catheter type, subsequent encounter 1000 mg IM Q24H 06/02/2024 Active documented as of this encounter (statuses as of 08/20/2024) Active Problems Problem Noted Date Diagnosed Date [...] episo de depressed, severe, w/psychotic features 05/03/2022 shelter current use of anticoagulant therapy 0 08/28/2021 Recurrent chest pain 07/31/2021 Assessment & Plan (09/02/2021 2:44 PM EDT): Referred to cardiology for workup--seen in Jul. [place] atypical for ACS. ED workup neg for [...] & Plan: Primary reason for transfer from [facility] to [facility] rehab. C/o LE weakness and acute/chronic low back pain. Lumbar spine MRI reportedly performed @ [facility], not available for review Pt denies receiving steroid injections D/C IV dilaudid. Resume PO hydromorphone 4mg in setting of subjected acute on chronic low back pain, foot pain and now chest pain Encourage use of tylenol 1000mg or ibuprofen 600mg PRN Chronic suprapubic catheter 05/31/2014 Overview (05/31/2014): Placed 05/26 @ [facility] by interventional radiology for urinary retention and [...] without myelopathy 03/03/2006 Overview (09/15/2015): Rigth L5-S1. [place] injections. Did not help. For discectomy at [facility] 08/31/06. Had subsequent MRSA graft Remove rods [...] 01/23: sees Dr. Mock (spine surgeon) @ [facility] 10/24: lumbar spinal surgery by Dr. Bob Headr 09/11/15: bulging disc with moderate narrowing of neural foramen B L4-5 and R L5- S1 Gastroesophageal reflux disease without esophagi tis 08/15/2003 Overview (06/18/2020): EGD 12/23: + small hiatal hernia, no gastritis; increase PPI to protonix 40 mg bid Egd 10/16 mild esophagitis and gastritis. Generic Scoliosis documented as of this encounter (statuses as of 08/20/2024) Resolved Problems Problem Noted Date Diagnosed Date Resolved Date Postsurgical malabsorption, not elsewhere classified 07/12/2023 01/02/2024 Overview (01/02/2024): duplicate Acute gastritis without hemorrhage 07/09/2023 08/06/2023 Uncomplicated asthma 07/04/2023 024 Depression, unspecified 06/26/2023 0209/2023 Migraine 05/24/2023 11/15/2023 UTI (urinary tract infection [...] a contraindication to starting her on opioids." [facility] discharge 10/04/15: patient exhibiting behavior of [...] 06/07/2014 Overview (06/07/2014): Pain contract established with [facility] ED 05/26 - give valium 5 [...] Overview (01/04/2014): Cysto neg 05/21/13. Following with [facility] urology Miri CERVANTES as of 09/26/2013. Resolved s/p laminectomy L4-S1 October 2013 @ [place] [address] Heard. Assessment & Plan (05/07/2022 [...] followed by Mauricio THOMPSON @ [facility] ADVANCE DIRECTIVE INFORMATION 11/17/2004 08/06/2022 Overview (11/17/2004): No, Advance Directive brochure offered , patient declined. Allergic rhinitis 11/24/2001 11/30/2018 Overview (08/03/2011): zyrtec Fatty liver 08/06/2022 Chronic sinusitis 11/30/2018 Overview (10/20/2015): frequent documented as of this encounter (statuses as of 08/20/2024) Immunizations Name Administration Dates Next Due COVID-19 mRNA, LNP-s, No Pre serve, 2-Dose Series (Retention Education) 06/25/2021,12/13/2020,11/15/2020 COVID-19, MRNA-LNP, PF, 30 M CG/0.3 mL, 12 YRS AND ABOVE, IM (PFIZER-Comirnat) 03/29/2023 Covid-19, Mrna, Lnp-s, Pf, B ivalent, 30 Mcg, IM, 12 yrs and above (Pfizer) 06/17/2022 H1N1 2009 Influenza, IM 05/27/2009 Pneumococcal Conjugate Vacci ne, 20-valent ([id number]) 12/15/2021 Pneumococcal Polysaccharide PPV23 (Pneumovax) 05/01/2008 Seasonal [...] Sign Reading Time Taken Comments Blood Pressure 149/80 08/07/2024 1:34 PM EST Pulse 76 08/07/2024 1:34 PM EST Temperature 35.1 C (95.2 F) 08/07/2024 1:34 PM ES T Respiratory Rate 18 08/07/2024 1:34 PM EST Oxygen Saturation - - Inhaled [...] Nursing Notes * Blanca Younger RN - 08/07/2024 3:02 PM EST Patient in chair 8 for her Micofungin infusion today. Patient stayed in her wheelchair for infusiontoday. Patient left IVC by wheelchair. Accompanied by Friend. Voiced no complaints. Blanac Younger RN 08/07/2024 3:03 PM documented in this encounter Plan of Treatment Upcoming Encounters Date Type Department Care Team (Late st Contact Info) Description 08/21/2024 9:00 AM EDT Telemedicine Psychology [place] [address] [phone] Farhana Cabrera PsyD [address] [place] [address] 08/29/2024 1:00 PM EDT Office Visit [facility] Emma Jacobs [address] [phone] Sarah Saavedra PA-C [address] [phone] 09/12/2024 10:22 AM EDT Hospital Encounter [facility], Operating Room [facility] [address] [place] [phone] Edwardo Arias, DO [address] [place] [phone] 09/12/2024 10:22 AM EDT - 09/12/2024 10:41 AM EDT Surgery [facility], Operating Room [facility] [address] [place] [phone] Edwardo Arias, DO [address] [place] [phone] INJECTION SPINE LUMBAR OR SACRAL 09/17/2024 1:15 PM EDT Office Visit Orthopaedics [facility] [address] [place] [phone] Windy Haley PA-C [address] [place] [address] 09/18/2024 10:20 AM EDT Office Visit Infectious Disease, [facility] [address] [place] [phone] Radha Fuentes MD [address] [place] [address] 10/03/2024 10:40 AM EDT [facility] [address] [phone] Lizet Briseno MD [address] [place] [address] 10/03/2024 3:40 PM EDT Office Visit Neurology, [address] [phone] Maureen Bowie MD [address] [place] [address] 10/12/2024 10:30 AM EDT Nurse Only Hematology/Oncolog y Treatment, [address] [phone] Glh, Chair10 Hem Onc [address] [place] [address] 10/15/2024 3:00 PM EDT Telemedicine [facility], [address] [place] [address] Amadou Rene CRNP [address] [place] [phone] 10/16/2024 2:30 PM EDT Office Visit Hematology/Oncolog y, [address] [phone] Radha Espinoza CRNP [address] [place], [place] [phone] 01/21/2025 8:30 AM EDT Office Visit Urology, [place] [address] [place] [address] Nadir Foy MD [address], [place] [phone] 03/28/2025 9:45 AM EDT Office Visit General Surgery, [facility] [address] [facility] [place] [address] Manolo Beckett MD [address] [place] [address] Scheduled Procedures Name Priority Associated Diagnoses Date/Ti me ESOPHAGOGASTRODUODENOSCOPY ( EGD), FLEXIBLE, TRANSORAL, DIAGNOSTIC Postgastric surgery syndrome Acute marginal ulcer 08/20/2024 1:00 PM EDT INJECTION SPINE LUMBAR OR SACRAL Lumbar radiculopathy [...] encounter Medical Devices Implanted Type Area Mechanical Assembler Device Identifier Shelf Expiration Date Model / Serial / Lot Plate Small Mtpj - [id number] Implanted:Qty: 1 on 11/15/2017 by Cristobal Calvillo MD at OR [facility] Left: Foot / / Screw Locking 2.7x14mm - [id number] Implanted:Qty: 1 on 11/15/2017 by Cristobal Calvillo MD at OR [facility] Left: Foot / / 2.7 X 16mm Locking Screw Implanted:Qty: 2 on 11/15/2017 by Cristobal Calvillo MD at OR [facility] Left: Foot [employer] / / 2.7 X 20 Locking Screw Implanted:Qty: 1 on 11/15/2017 by Cristobal Calvillo MD at OR [facility] Left: Foot [employer] / / 2.7 X 18mm Locking Screw Implanted:Qty: 1 on 11/15/2017 by Cristobal Calvillo MD at OR [facility] Left: Foot [employer] / / Screw Locking 2.7x10mm - [id number] Implanted:Qty: 1 on 11/15/2017 by Cristobal Calvillo MD at OR [facility] Left: Foot [employer] / / 4.0mm X 44 Mm Compression Screw Implanted:Qty: 1 on 10/09/2018 by Bao Hernández MD at OR [facility] Left: Foot AR-8740-44 H / / Description:Implant from set 2.5x30 Compression Screw Implanted:Qty: 1 on 10/09/2018 by Bao Hernández MD at OR [facility] Left: Foot [employer] AR-8725-30 H / / Screw [employer] 2.9wkm45xm - [id number] Implanted:Qty: 2 on 02/01/2022 by Bao Hernández MD at OR [facility] Right: Toe EXACTECH 9870-8751 / / Plate Mtpj - [id number] Implanted:Qty: 1 on 02/01/2022 by Bao Hernández MD at OR [facility] Right: Foot [employer] 7031-3200 / / Screw Locking 2.7x10mm - [id number] Implanted:Qty: 2 on 02/01/2022 by Bao Hernández MD at OR [facility] Right: Foot [employer] 7813-2539 / / Screw Locking 2.7x12mm - [id number] Implanted:Qty: 3 on 02/01/2022 by Bao Hernández MD at OR [facility] Right: Foot [employer] 1258-2345 / / Screw Locking 2.7x14mm - [id number] Implanted:Qty: 1 on 02/01/2022 by Bao Hernández MD at OR [facility] Right: Foot [employer] 4893-0099 / / Screw [employer] 2.4dmk75ro - [id number] Implanted:Qty: 1 on 02/01/2022 by Bao Hernández MD at OR [facility] Right: Toe [employer] 8670-6965 / / Port Implant W/8f Poly Cath - [id number] Implanted:Qty: 1 on 06/02/2022 by Lawrenec Cat DO at OR [facility] Right: Chest CR BARD : PERIPHERAL VASCULAR [id number] 05/12/2023 [id number] / / [id number] documented as of this encounter Procedures Procedure Name Priority Date/Time Associated Diagnosis Comments DIFFERENTIAL, AUTOMATED Routine 08/07/2024 1:45 PM EST Tolerance to properly prescribed and administered drug, subsequent encounter COMPREHENSIVE METABOLIC PANEL Routine 08/07/2024 1:45 PM EST Tolerance to properly prescribed and administered drug, subsequent encounter CBC Routine 08/07/2024 1:45 PM EST Tolerance to properly prescribed and administered drug, subsequent encounter CBC Routine 08/07/2024 1:45 PM EST Tolerance to properly prescribed and administered drug, subsequent encounter DIFFERENTIAL, TECHNOLOGIST REVIEW Routine 08/07/2024 1:45 PM EST Tolerance to properly prescribed and administered drug, subsequent encounter GLUCOSE METER, POINT OF CARE RASHID 08/07/2024 1:41 PM EST documented in this encounter Results * DIFFERENTIAL, TECHNOLOGIST REVIEW (08/07/2024 1:45 PM EST) Blood Venous blood specimen / Unknown Central Line / Unknown 08/07/2024 1:45 PM EST 08/07/2024 1:54 PM EST us Radha Fuentes MD LAB BLOOD ORDERABLES Final Resul t LABORATORY [facility] [address] [place] [address] * (ABNORMAL) DIFFERENTIAL, AUTOMATED (08/07/2024 1:45 PM EST) WBC 5.57 4.00 - 10.80 K/uL 08/07/2024 10:50 PM EST LABORATORY [facility] Neutrophils % 45.7 40.0 - 75.0 % 08/07/2024 10:50 PM EST [facility] Lymphocytes % 35.9 18.0 - 42.0 % 08/07/2024 10:50 PM EST [facility] Monocytes % 11.5(H) 1.0 - 11.0 % 08/07/2024 10:50 PM EST [facility] Eosinophils % 4.7 0.0 - 6.0 % 08/07/2024 10:50 PM EST [facility] Basophils % 1.3 0.0 - 2.0 % 08/07/2024 10:50 PM EST [facility] Immature Granulocytes % 0.9 0.0 - 2.0 % 08/07/2024 10:50 PM EST [facility] Absolute Neutrophils 2.55 1.80 - 7.70 K/uL 08/07/2024 10:50 PM EST [facility] Absolute Lymphocytes 2.00 1.00 - 4.80 K/ul 08/07/2024 10:50 PM EST [facility] Absolute Monocytes 0.64 0.00 - 1.10 K/uL 08/07/2024 10:50 PM EST [facility] Absolute Eosinophils 0.26 0.00 - 0.70 K/uL 08/07/2024 10:50 PM EST [facility] Absolute Basophils 0.07 0.00 - 0.20 K/uL 08/07/2024 10:50 PM EST [facility] Absolute Immature Granulocytes 0.05 0.00 - 0.20 K/uL 08/07/2024 10:50 PM EST [facility] Blood Venous blood specimen / Unknown Central Line / Unknown 08/07/2024 1:45 PM EST 08/07/2024 1:54 PM EST us Radha Fuentes MD LAB BLOOD ORDERABLES Final Resul t [facility] [address] [place] [address] * (ABNORMAL) CBC (08/07/2024 1:45 PM EST) WBC 5.57 4.00 - 10.80 K/uL 08/07/2024 9:52 PM EST [facility] RBC 4.54 3.85 - 5.15 M/uL 08/07/2024 9:52 PM EST [facility] HGB 11.3(L) 12.0 - 15.3 g/dL 08/07/2024 9:52 PM EST [facility] HCT 39.2 36.0 - 45.2 % 08/07/2024 9:52 PM EST [facility] MCV 86.3 81.5 - 97.5 fL 08/07/2024 9:52 PM EST [facility] MCH 24.9 27.0 - 34.0 pg 08/07/2024 9:52 PM EST [facility] MCHC 28.8 32.0 - 36.0 g/dL 08/07/2024 9:52 PM EST [facility] RDW 25.2 11.5 - 15.5 % 08/07/2024 9:52 PM EST [facility] PLT 308 140 - 400 K/uL 08/07/2024 9:52 PM EST [facility] MPV 10.7 6.6 - 11.1 fL 08/07/2024 9:52 PM EST [facility] nRBCs 0 <=0 /100 WBCs 08/07/2024 9:52 PM EST [facility] Blood Venous blood specimen / Unknown Central Line / Unknown 08/07/2024 1:45 PM EST 08/07/2024 1:54 PM EST us Radha Fuentes MD LAB BLOOD ORDERABLES Final Resul t [facility] [address] [place] [address] * (ABNORMAL) COMPREHENSIVE METABOLIC PANEL (08/07/2024 1:45 PM EST) BUN 8 6 - 20 mg/dL 08/07/2024 8:55 PM EST [facility] CREATININE 0.6 0.5 - 1.0 mg/dL 08/07/2024 8:55 PM EST [facility] EGFR >90 >=60 mL/min 08/07/2024 8:55 PM EST [facility] Comment:eGFR is calculated b ased on the CKD-EPI 2020 equation. SODIUM 140 135 - 146 mmol/L 08/07/2024 8:55 PM EST [facility] POTASSIUM 3.7 3.5 - 5.1 mmol/L 08/07/2024 8:55 PM EST [facility] CHLORIDE 107 98 - 107 mmol/L 08/07/2024 8:55 PM EST [facility] CO2 20(L) 22 - 32 mmol/L 08/07/2024 8:55 PM EST [facility] ANION GAP 13 7 - 15 mmol/L 08/07/2024 8:55 PM EST [facility] GLUCOSE 116 70 - 120 mg/dL 08/07/2024 8:55 PM EST [facility] Albumin 4.2 3.8 - 5.0 g/dL 08/07/2024 8:55 PM EST [facility] AST 28 10 - 35 U/L 08/07/2024 8:55 PM EST [facility] Alkaline Phosphatase 86 35 - 130 U/L 08/07/2024 8:55 PM EST [facility] Bilirubin, Total <0.2 <=1.2 mg/dL 08/07/2024 8:55 PM EST [facility] CALCIUM 9.5 8.4 - 10.2 mg/dL 08/07/2024 8:55 PM EST [facility] Protein 7.4 6.0 - 8.3 g/dL 08/07/2024 8:55 PM EST [facility] ALT 25 10 - 35 U/L 08/07/2024 8:55 PM EST [facility] Blood Venous blood specimen / Unknown Central Line / Unknown 08/07/2024 1:45 PM EST 08/07/2024 1:54 PM EST us Radha Fuentes MD LAB BLOOD ORDERABLES Final Resul t LABORATORY [facility] [address] [place] [address] * GLUCOSE METER, POINT OF CARE (08/07/2024 1:41 PM EST) [facility] Glucose - POCT 94 70 - 120 mg/dL 08/07/2024 1:43 PM EST [facility] Blood Whole blood specimen / Unknown 08/07/2024 1:41 PM EST 08/07/2024 1:43 PM EST us Chair7 Hem Onc Glh LAB POINT OF CARE TE ST DOCKED DEVICE UNSOLICITED RESULTS Final Result [facility] [address] [place] [address] documented in this encounter Visit Diagnoses Diagnosis [...] candidiasis- Primary Candidiasis of vulva and vagina Tolerance to properly prescribed and administered drug, subsequent encounter Lumbar radiculopathy Thoracic or lumbosacral neuritis or radiculitis, unspecified documented in this encounter Administered Medications Inactive Administered Medications - up to 3 most recent administrations Medication Order MAR Action Action Date Dose Rate Site Micafungin sodium (Mycamine) 100 mg in NSS 100 mL ivpb 100 mg, IV Piggyback, ONCE, 1 dose, On Tue08/07/24 at 1430, Administer over 60 Minutes, +++ IVC for Monday 08/07 +++Indications:Vaginal candidiasis Start Infusion 08/07/2024 1:51 PM EST 100 mg 105 mL/hr NSS infusion FOR HYDRATION Intravenous, at 50 mL/hr Administer over 10 Hours, CONTINUOUS, Starting on Tue08/07/24 at 1445, Until Tue08/07/24 at 1903Indications:Vaginal candidiasis Start Infusion 08/07/2024 1:49 PM EST 500 mL 50 mL/hr documented in this encounter Advance Directives Documents on File Type Date Recorded Patient Principal Investigator Expl anation POLST 12/03/2020 POLST KARLO LEE [...] Agent Relationship Communication Ni Jaiiller Grandparent First Alte rnate Health Care Agent Andria Addison Mother Emergency Contact Care Teams Bicycle Repairman Relationship Specialty Start Date End Date Sarah Saavedra PA-C [address] [phone] PCP - General Physician Heel Cutter 09/06/23 documented as of this encounter
--- OUTSIDE RECORDS SUMMARY | 2024-08-22 20:52 | External Medical Summary | Summary of Care ---
Author Name Unknown Organization [facility] Address [address] [place] [address] Phone [phone] Care Team Providers Care Miter Sawyer Name Role Phone Sarah Saavedra PA-C Primary Care Provider [phone] Reason for Visit * Reason Comments Infusion micafungin Encounter Details Date Type Department Care Team (Latest Contact Info) Description 08/06/2024 1:00 PM EST Hem/Onc Treatment Hematology/Oncology Treatment, [address] [address] [facility], Chair4 Hem Onc [address] [place] [place] [address] Vaginal candidiasis* Allergies Active Allergy Reactions [...] said itching Latex Itching 09/26/2013 Linezolid 10/23/2014 [place] Other (Please comment) High 12/29/2014 Became unresponsive [...] overdose. Seek immediate medical attention. [email or web address]://www.youtu [email or web address]/watch?v=[email or web address] 1 Each 3 024 Active Cyclobenzaprine HCl [...] Emgality 120 MG/ML Subcutaneous Solution Auto-injector (Galcanezumab-g [facility]) Inject 1 mL (1 pen) under the skin Every Month. After completion of loading dose. 1 mL 4 07/26/19 25 7:47 AM EST 025 Active Nystatin [id number] UNIT/GM External Powder (Nystop) Apply topically to [...] Active Benzonatate 100 MG Oral Capsule (Tessalfelecia Perlitalo)Indicati ons:Intermitten t asthma with reliever use [...] 1,000 mcgIndications:S/P gastric bypass 1000 mcg IM [id number] 08/30/2023 06/03/2026 Active cefTRIAXone (Rocephin) (350 mg/mL) [...] Referred to cardiology for workup--seen in Jul. [place] atypical for ACS. ED workup neg for [...] [facility] to [facility] rehab. C/o LE weakness and [...] without myelopathy 03/03/2006 Overview (09/15/2015): Rigth L5-S1. Ribera injections. Did not help. For discectomy at [...] Plan (09/02/2021 5:47 PM EDT): Followed by psych/John[facility] Ambulatory dysfunction 01/31/202001/04 Low [...] a contraindication to starting her on opioids." [facility] discharge 10/04/15: patient exhibiting behavior of [...] 06/07/2014 Overview (06/07/2014): Pain contract established with [facility] ED 05/26 - give valium 5 [...] [facility] urology Miri CERVANTES as of 09/26/2013. Resolved s/p laminectomy L4-S1 October 2013 @ [place] [address] Heard. Assessment & Plan (05/07/2022 [...] wellbutrin 03/27: followed by Mauricio THOMPSON @ [facility] ADVANCE DIRECTIVE INFORMATION 11/17/2004 08/06/2022 Overview (11/17/2004): No, Advance Directive brochure offered , patient declined. Allergic rhinitis 11/24/2001 11/30/2018 Overview (08/03/2011): zyrtec Fatty liver 08/06/2022 Chronic sinusitis 11/30/2018 Overview (10/20/2015): frequent documented as of this encounter (statuses as of 08/20/2024) Immunizations Name Administration Dates Next Due COVID-19 mRNA, LNP-s, No Pre serve, 2-Dose Series ([employer]) 06/25/2021,12/13/2020,11/15/2020 COVID-19, MRNA-LNP, PF, 30 M CG/0.3 mL, 12 YRS AND ABOVE, IM ([employer]) 03/29/2023 Covid-19, Mrna, Lnp-s, Pf, B ivalent, 30 Mcg, IM, 12 yrs and above ([email or web address]) 06/17/2022 H1N1 2009 Influenza, IM 05/27/2009 Pneumococcal Conjugate Vacci ne, 20-valent ([id number]) 12/15/2021 Pneumococcal Polysaccharide PPV23 (Pneumovax) 05/01/2008 Seasonal [...] Sign Reading Time Taken Comments Blood Pressure 149/82 08/06/2024 2:33 PM EST Pulse 101 08/06/2024 2:33 PM EST Temperature 37.1 C (98.8 F) 08/06/2024 2:33 PM ES T Respiratory Rate 18 08/06/2024 2:33 PM EST Oxygen Saturation - - Inhaled [...] documented in this encounter Nursing Notes * Yudith Wadsworth RN - 08/06/2024 2:44 PM EST [facility] Nursing Care Plan ID is not set. 08/06/2024 Safety and Risk for Injury Patient will remain free from injury. Assess patient's risk for falls per policy. Encourage activity as ordered per policy. Ensure appropriate safety devices are available. Implement fall prevention plan of care per policy. Include patient and caregiver in decisions related to safety. Perform safety rounds per policy. Provide and maintain safe environment. Use appropriate transfer methods. Goals: pt will not fall while in iv clinic Possible barriers to meeting goals: iv pole, pt is wheelchair bound w/assist of 1 Stability of the patient: Moderately stable - low risk of patient condition declining or worsening Summary regarding today's goals: Met: pt did not fall while in iv clinic Pt tolerared micafungin without any reported reaction or side effects. Patient left IVC by electric wheelchair Accompanied by Friend. Voiced no complaints. Yudith Wadsworth RN 08/06/2024 2:46 PM Yudith Wadsworth RN * Yudith Wadsworth RN - 08/06/2024 1:49 PM EST Pt in bay#11 Patient instructed on use of heat and massage functions where applicable. Patient shown how to operate the heat function of the chair and to alert nursing staff if the chair feels too warm. Patient instructed on the risk of potential brothers while using the heat function. Pt denies any reported reaction or side effects from micafungin. Vss. Pt states she has one more day of antibiotic treatment. Pt also states she has labs for 08/07/24 ordered from . documented in this encounter Plan of Treatment Upcoming Encounters Date Type Department Care Team (Late st Contact Info) Description 08/21/2024 9:00 AM EDT Telemedicine Psychology [place] [address] [phone] Farhana Cabrera PsyD [address] [place] [facility] [place] [address] 08/29/2024 1:00 PM EDT Office Visit [facility] [address] [place] [phone] Sarah Saavedra PA-C [address] [place] [address] 09/12/2024 10:22 AM EDT Hospital Encounter [facility], Operating Room [facility] [address] [place] [phone] Edwardo Arias, DO [address] [place] [phone] 09/12/2024 10:22 AM EDT - 09/12/2024 10:41 AM EDT Surgery [facility], Operating Room [facility] [address] [place] [phone] Edwardo Arias, DO [address] [place] [phone] INJECTION SPINE LUMBAR OR [facility] 09/17/2024 1:15 PM EDT Office Visit Orthopaedics Angelia Ayala [address] [phone] Windy Haley PA-C [address] [place] [address] 09/18/2024 10:20 AM EDT Office Visit Infectious Disease, [address] [phone] Radha Fuentes MD [address] [place] [address] 10/03/2024 10:40 AM EDT Office Visit Family [facility] [address] [place] [address] Lizet Briseno MD [address] [place] [address] 10/03/2024 3:40 PM EDT Office Visit Neurology[address] [phone] Maureen Bowie MD [address] [place] [address] 10/12/2024 10:30 AM EDT Nurse Only Hematology/Oncolog y Treatment, [address] [address] [facility], Chair10 Hem Onc [address] [address] 10/15/2024 3:00 PM EDT Telemedicine [facility], [address] [address] Amadou Rene CRNP [address] [place] [phone] 10/16/2024 2:30 PM EDT Office Visit Hematology/Oncolog y, [address] [phone] Radha Espinoza CRNP [address] [place], [place] [phone] [address] 01/21/2025 8:30 AM EDT Office Visit Urology, [place] [address] [place] [address] Nadir Foy MD [address] [place] [address] 03/28/2025 9:45 AM EDT Office Visit General Surgery, [facility] [address] [place] [address] Manolo Beckett MD [address], [place] [phone] Scheduled Procedures Name Priority Associated Diagnoses Date/Ti [...] this encounter Medical Devices Implanted Type Area Tutoring Assistant Device Identifier Shelf Expiration Date Model / Serial / Lot Plate Small Mtpj - [id number] Implanted:Qty: 1 on 11/15/2017 by Cristobal Cal[place]illo [place] [facility] [place]: Foot [id number] / / Screw Locking 2.7x14mm - [id number] Implanted:Qty: 1 on 11/15/2017 by Cristobal Calvillo MD at [facility] Left: Foot [id number] / / 2.7 X 16mm Locking Screw Implanted:Qty: 2 on 11/15/2017 by Cristobal Calvillo MD at [facility] Left: Foot [employer] [id number] / / 2.7 X 20 Locking Screw Implanted:Qty: 1 on 11/15/2017 by Cristobal Calvillo [place] [facility] [place]: Foot [employer] [id number] / / 2.7 X 18mm Locking Screw Implanted:Qty: 1 on 11/15/2017 by Cristobal Calvillo [place] [facility] [place]: Foot [employer] 1668-1005 / / Screw Locking 2.7x10mm - [id number] Implanted:Qty: 1 on 11/15/2017 by Cristobal Calvillo MD [place] [facility] [place] [place]: Foot [employer] [id number] / / 4.0mm X 44 Mm Compression Screw Implanted:Qty: 1 on 10/09/2018 by Bao Hernández MD at [place] [facility] [place] [place]: Foot AR-8740-44 H / / Description:Implant from set 2.5x30 Compression Screw Implanted:Qty: 1 on 10/09/2018 by Bao Hernández MD [place] [facility] [place]: Foot [employer] AR-8725-30 H / / Screw [employer] 2.7zta69ag - [id number] Implanted:Qty: 2 on 02/01/2022 by Bao Hernández MD [place] [facility] [place]: Toe [employer] [id number] / / Plate Mtpj - [id number] Implanted:Qty: 1 on 02/01/2022 by Bao Hernández MD [place] [facility] [place]: Foot [employer] [id number] / / Screw Locking 2.7x10mm - [id number] Implanted:Qty: 2 on 02/01/2022 by Bao Hernández MD [place] [facility] [place]: Foot [employer] [id number] / / Screw Locking 2.7x12mm - [id number] Implanted:Qty: 3 on 02/01/2022 by Bao Hernández MD [place] [facility] [place]: Foot [employer] [id number] / / Screw Locking 2.7x14mm - [id number] Implanted:Qty: 1 on 02/01/2022 by Bao Hernández MD [place] [facility] [place]: Foot [employer] 8129-6727 / / Screw [employer] 2.8iev56fj - [id number] Implanted:Qty: 1 on 02/01/2022 by Bao Hernández MD [place] [facility] [place]: Toe [employer] [id number] / / Port Implant W/8f Poly Cath - [id number] Implanted:Qty: 1 on 06/02/2022 by Lawrence Cat DO at OR [facility] Right: Chest CR BARD : PERIPHERAL VASCULAR [id number] 05/12/2023 [id number] / / [id number] documented as of this encounter Visit Diagnoses [...] Lock, PRN Other, IV Flush, Starting on Tue08/06/24 at 1329, Until Tue08/06/24 at 1847, For 24 hours, Do not flush if lock, PICC, or central line not in place; IV infusing or unable to flush.Indications:Vaginal candidiasis Given 08/06/2024 2:44 PM EST 500 Units Micafungin sodium (Mycamine) 100 mg in NSS 100 mL ivpb 100 mg, IV Piggyback, ONCE, 1 dose, On Tue08/06/24 at 1400, Administer over 60 MinutesIndications:Vagina l candidiasis Start Infusion 08/06/2024 1:42 PM EST 100 mg 105 mL/hr NSS infusion FOR HYDRATION Intravenous, at 50 mL/hr Administer over 10 Hours, CONTINUOUS, Starting on Tue08/06/24 at 1415, Until Tue08/06/24 at 1847Indications:Vaginal candidiasis Start Infusion 08/06/2024 1:38 PM EST 500 mL 50 mL/hr sodium chloride 0.9 % flush central line 10 mL 10 mL, IV Push, PRN Other, IV Flush, Starting on Tue08/06/24 at 1329, Until Tue08/06/24 at 1847, For 24 hours, Do not flush if lock, PICC, or central line not in place; IV infusing or unable to flush.Indications:Vaginal candidiasis Given 08/06/2024 2:44 PM EST 10 mL Given 08/06/2024 1:37 PM EST 10 mL documented in this encounter Advance Directives Documents on File Type Date Recorded Patient Logging Specialist Expl anation KUSUM 12/03/2020 KUSUM LEE ORDERS FOR LIFE-SUSTAINING [...] Agent Relationship Communication Nirosana Mancini Grandparent [facility] Health Care Agent Andria Addison Mother Emergency Contact Care Teams Miter Sawyer Relationship Specialty Start Date End Date Sarah Saavedra PA-C [address] [id number] PCP - General Physician Incubator Machine Operator 09/06/23 documented as of this encounter
[2024-08-22] MEDS: LURASIDONE HCL 20 MG TAB PO SCH (21:37)
[2024-08-22] MEDS: busPIRone 7.5 MG TAB PO SCH (21:37)
[2024-08-22] MEDS: TOPIRAMATE 50 MG TAB PO SCH (21:37)
[2024-08-22] MEDS: traZODone HCL 100 MG TAB PO SCH (21:38)
[2024-08-22] MEDS: PRAZOSIN HCL 1 MG CAP PO SCH (21:39)
[2024-08-22] MEDS: APIXABAN 5 MG TABLET PO SCH (21:40)
[2024-08-22] MEDS: SUCRALFATE 1 GM TAB PO SCH (21:40)
[2024-08-22] MEDS: PANTOprazole 40 MG TAB PO SCH (21:40)
[2024-08-22] MEDS: BACLOFEN 20 MG TAB PO SCH (21:40)
[2024-08-22] MEDS: AMPICILLIN 2,000 MG in SODIUM CHLOR 0.9% MINI-B 100 ML IV SCH (21:41)
[2024-08-22] MEDS: POLYETHYLENE (MIRALAX) 17 GM PACK PO SCH (21:48)
[2024-08-22] MEDS: KETOROLAC TROMETHAMINE 15 MG/ML VIAL IV STA (21:52)
[2024-08-22] MEDS: PROMETHAZINE 12.5 MG/50.5 ML BAG IV STA (21:52)
[2024-08-22] MEDS: diphenhydrAMINE 50 MG/ML VIAL IV STA (21:52)
[2024-08-22] MEDS: DOCUSATE SODIUM 100 MG CAP PO SCH (22:06)
[2024-08-23] MEDS: oxyBUTYnin chloride 5 MG TAB PO PRN (00:58)
--- NOTE | 2024-08-23 07:41 | Hospitalist Progress Note ---
Date of Service August 23, 2024 Assessment & Plan (1) Recurrent UTI: (2) Chronic suprapubic catheter: Plan: Gricel Mancini is a medically complex 38y/o F with extensive PMHx including spina bifida, spastic diplegic cerebral palsy with baseline restricted mobility, chronic indwelling suprapubic catheter due to neurogenic bladder, history of recurrent UTIs, bladder spasms, asthma, GERD without esophagitis, IBS with both constipation and diarrhea, vitamin D deficiency, morbid obesity, intestinal postoperative nonabsorption s/p gastric bypass in 2021, vitamin B12 deficiency, congenital hypoplasia of left femur, osteoarthritis of left hip, chronic pain syndrome, migraines, iron deficiency anemia, JOSE, PTSD, bipolar disorder and 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 Previously seen in the [facility] ED on 08/19/24 due to suprapubic abdominal pain and right flank pain. Extensive history of recurrent UTIs. UA at that time revealed 2+ leukocyte esterase, 11-20 WBC and 1+ bacteria; urine culture grew Enterococcus faecalis and she was discharged home on a course of Macrobid. She was made aware of the urine culture results above earlier today. Noticed minimal improvement in her suprapubic abdominal pain and right flank pain since last being seen in the ED therefore she was told to come back into the ED for further evaluation. Due for suprapubic catheter exchange on 08/27/24. She is requesting to have this changed sooner if possible. Appreciate urology consult. UA with trace leukocyte esterase, 6-10 WBC and 2+ bacteria. CTAP grossly unremarkable with no identifiable acute process. Initial laboratory evaluation reviewed. No leukocytosis. Procalcitonin negative. Lactate negative. No evidence of sepsis on admission. S/p dose of IV ampicillin in ED. Will continue IV ampicillin for now pending repeat urine culture results. Follow blood cultures. Appreciate ID consult given recurrent UTIs. (3) Hypertension: Plan: Normotensive on admission. Can continue home antihypertensive regimen. Routine BP monitoring. (4) Bladder spasms: Plan: Continue Myrbetriq, Ditropan XL, prazosin and tolterodine. Notes increased bladder spasms as of lately. Appreciate urology input in this regard. (5) Bipolar disorder: (6) JOSE (generalized anxiety disorder): (7) PTSD (post-traumatic stress disorder): Plan: Chronic, stable. Continue home psychiatric medication regimen. (8) Spastic diplegic cerebral palsy: Plan: Has rotating caretakers at home to assist her throughout the day with ambulation/ADLs. Will continue home baclofen and PRN cyclobenzaprine for muscle spasms. Mostly wheelchair bound at baseline but able to pivot with transfers. (9) Chronic pain syndrome: Plan: On PRN oxycodone therapy at home. She is requesting to continue this. Noted constipation on CTAP. Will start on routine bowel regimen. Suspect opioid- induced constipation. Other Chronic Medical Conditions: Asthma - Stable, no acute exacerbation. GERD/Migraine - Can continue home meds for these specific conditions. DVT Prophylaxis: On Eliquis [employer] given history of DVT/PE - continue. Code Status: FULL CODE PCP: Sarah Saavedra PA-C Disposition: Admit to med/telemetry for further inpatient evaluation and management. Admission and Anticipated Discharge Date Admission Date: August 22, 2024 Subjective Pt seen in follow up of recurrent UTIs, SPC, bladder spasms Currently lying in bed in NAD, but reports having a migraine MOORE currently says bladder spasms improved no chest pain, shortness of breath Reports ID already saw her, and urology plans to exchange catheter tmrw Review of Systems Review of Systems: All systems reviewed & are unremarkable except as noted in Subjective Physical Exam Physical Exam: Gen: A&O 3 NAD HEENT: NCAT, EOMI Neck: Supple Lungs: No Respiratory distress.decreased breath sounds CV: RRR, no edema. Abdomen: suprapubic catheter site noted w/ some dry blood around Skin: warm, dry Neuro: chronic spasticity and weakness in bilateral LE, mild contractures in bilateral UE Psych: Appropriate for situation. Results & Data Results & Data Vital Signs (Past 12 Hours) Vital Signs Temp Pulse Pulse Resp BP BP Pulse Ox 08/23/24 02:55 71 08/23/24 01:31 36.4 C L 78 16 123/73 94 08/23/24 01:00 129/80 98 08/23/24 01:00 129/80 08/23/24 01:00 129/80 08/23/24 01:00 129/80 08/23/24 01:00 129/80 08/23/24 01:00 129/80 08/23/24 01:00 129/80 08/23/24 01:00 77 18 96 08/23/24 00:36 88 17 08/23/24 00:21 84 18 08/23/24 00:18 92 H 18 08/23/24 00:00 137/82 08/23/24 00:00 137/82 08/23/24 00:00 137/82 08/23/24 00:00 137/82 08/23/24 00:00 137/82 08/23/24 00:00 137/82 08/23/24 00:00 137/82 08/23/24 00:00 137/82 08/23/24 00:00 137/82 08/23/24 00:00 137/82 08/23/24 00:00 137/82 08/23/24 00:00 137/82 08/23/24 00:00 137/82 08/23/24 00:00 137/82 08/23/24 00:00 137/82 08/23/24 00:00 137/82 08/23/24 00:00 137/82 08/22/24 23:54 91 H 15 08/22/24 23:51 90 14 08/22/24 23:45 75 18 08/22/24 23:39 89 16 08/22/24 23:06 88 14 08/22/24 23:00 132/82 08/22/24 23:00 132/82 08/22/24 23:00 132/82 08/22/24 23:00 132/82 08/22/24 23:00 132/82 08/22/24 23:00 132/82 08/22/24 23:00 132/82 08/22/24 23:00 132/82 08/22/24 23:00 132/82 08/22/24 23:00 132/82 08/22/24 23:00 132/82 08/22/24 23:00 132/82 08/22/24 23:00 132/82 08/22/24 23:00 132/82 08/22/24 23:00 132/82 08/22/24 22:48 91 H 14 08/22/24 22:42 91 H 20 131/92 08/22/24 22:30 86 16 08/22/24 22:24 82 17 08/22/24 22:12 87 17 08/22/24 22:00 87 17 08/22/24 22:00 166/89 H 08/22/24 22:00 166/89 H 08/22/24 22:00 166/89 H 08/22/24 22:00 166/89 H 08/22/24 22:00 166/89 H 08/22/24 22:00 166/89 H 08/22/24 21:54 79 16 08/22/24 21:45 71 18 08/22/24 21:30 78 19 08/22/24 21:24 79 18 08/22/24 21:12 85 19 08/22/24 21:00 138/83 08/22/24 21:00 138/83 08/22/24 21:00 138/83 08/22/24 21:00 138/83 08/22/24 21:00 138/83 08/22/24 21:00 138/83 08/22/24 21:00 138/83 08/22/24 21:00 138/83 08/22/24 21:00 138/83 08/22/24 21:00 138/83 08/22/24 21:00 138/83 08/22/24 21:00 138/83 08/22/24 21:00 138/83 08/22/24 21:00 138/83 08/22/24 21:00 138/83 08/22/24 21:00 138/83 08/22/24 21:00 138/83 08/22/24 21:00 138/83 08/22/24 21:00 138/83 08/22/24 21:00 138/83 08/22/24 21:00 138/83 08/22/24 21:00 138/83 08/22/24 21:00 138/83 08/22/24 20:52 80 08/22/24 20:48 81 16 08/22/24 20:42 82 14 08/22/24 20:33 81 19 08/22/24 20:29 08/22/24 20:21 83 14 08/22/24 20:12 87 18 08/22/24 20:00 87 21 96 08/22/24 20:00 135/77 08/22/24 20:00 135/77 03/12/25 20:00 135/77 08/22/24 20:00 135/77 08/22/24 20:00 135/77 08/22/24 20:00 135/77 08/22/24 20:00 135/77 08/22/24 19:48 136/85 08/22/24 19:48 136/85 08/22/24 19:48 136/85 Pulse Ox O2 Del Method O2 Del Method 08/23/24 02:55 08/23/24 01:31 Room Air 08/23/24 01:00 08/23/24 01:00 08/23/24 01:00 08/23/24 01:00 08/23/24 01:00 08/23/24 01:00 08/23/24 01:00 08/23/24 01:00 08/23/24 00:36 08/23/24 00:21 08/23/24 00:18 08/23/24 00:00 08/23/24 00:00 08/23/24 00:00 08/23/24 00:00 08/23/24 00:00 08/23/24 00:00 08/23/24 00:00 08/23/24 00:00 08/23/24 00:00 08/23/24 00:00 08/23/24 00:00 08/23/24 00:00 08/23/24 00:00 08/23/24 00:00 08/23/24 00:00 08/23/24 00:00 08/23/24 00:00 08/22/24 23:54 08/22/24 23:51 08/22/24 23:45 08/22/24 23:39 08/22/24 23:06 08/22/24 23:00 08/22/24 23:00 08/22/24 23:00 08/22/24 23:00 08/22/24 23:00 08/22/24 23:00 08/22/24 23:00 08/22/24 23:00 08/22/24 23:00 08/22/24 23:00 08/22/24 23:00 08/22/24 23:00 08/22/24 23:00 08/22/24 23:00 08/22/24 23:00 08/22/24 22:48 08/22/24 22:42 08/22/24 22:30 08/22/24 22:24 08/22/24 22:12 08/22/24 22:00 08/22/24 22:00 08/22/24 22:00 08/22/24 22:00 08/22/24 22:00 08/22/24 22:00 08/22/24 22:00 08/22/24 21:54 08/22/24 21:45 08/22/24 21:30 08/22/24 21:24 08/22/24 21:12 08/22/24 21:00 08/22/24 21:00 08/22/24 21:00 08/22/24 21:00 08/22/24 21:00 08/22/24 21:00 08/22/24 21:00 08/22/24 21:00 08/22/24 21:00 08/22/24 21:00 08/22/24 21:00 08/22/24 21:00 08/22/24 21:00 08/22/24 21:00 08/22/24 21:00 08/22/24 21:00 08/22/24 21:00 08/22/24 21:00 08/22/24 21:00 08/22/24 21:00 08/22/24 21:00 08/22/24 21:00 08/22/24 21:00 08/22/24 20:52 08/22/24 20:48 08/22/24 20:42 08/22/24 20:33 08/22/24 20:29 97 Room Air 08/22/24 20:21 08/22/24 20:12 08/22/24 20:00 08/22/24 20:00 08/22/24 20:00 08/22/24 20:00 08/22/24 20:00 08/22/24 20:00 08/22/24 20:00 08/22/24 20:00 08/22/24 19:48 08/22/24 19:48 08/22/24 19:48 Laboratory Results 08/22/24 08/22/24 08/22/24 Range/Units 15:07 14:32 14:24 WBC 10.50 (4.8-10.8) K/ul RBC 4.75 (4.20-5.40) M/uL Hgb 12.5 (12.0-16.0) g/dl Hct 39.4 (37.0-47.0) % MCV 82.9 (80.0-100.0) fL MCH 26.3 (25.0-34.0) pg MCHC 31.7 L (32.0-36.0) g/dL RDW Std Deviation 69.8 H (36.4-46.3) fL RDW Coeff of Jerald 23.9 H (11.5-14.5) % Plt Count 298 (130-400) K/uL MPV 10.1 (9.4-12.4) fL Immature Gran % (Auto) 0.6 % Neut % (Auto) 65.4 % Lymph % (Auto) 24.0 % Stanley % (Auto) 7.0 % Eos % (Auto) 2.0 % Baso % (Auto) 1.0 % Neut # (Auto) 6.88 H (1.40-6.50) K/uL Lymph # (Auto) 2.52 (1.20-3.40) K/uL Stanley # (Auto) 0.73 H (0.11-0.59) K/uL Eos # (Auto) 0.21 (0.00-0.50) K/uL Baso # (Auto) 0.10 (0.00-0.20) K/uL Immature Gran # (Auto) 0.06 (0.01-0.20) K/uL Anisocytosis Present PT 10.9 (9.0-12.0) Seconds INR 1.0 (0.9-1.1) APTT 29 (21-31) Seconds PTT Ratio 1.1 Sodium 138 (136-145) mmol/L Potassium 3.6 (3.5-5.1) mmol/L Chloride 107 (98-107) mmol/L Carbon Dioxide 22 (21-32) mmol/L Anion Gap 9 (3-11) BUN 12 (6-23) mg/dl Creatinine 0.68 (0.6-1.2) mg/dl Est Cr Clr Drug Dosing 117.1 ml/min eGFR 114.25 BUN/Creatinine Ratio 17.6 (10-20) Glucose 86 (70-99(Fasting)) mg/dl Lactate 1.3 (0.4-2.0) mmol/L Calcium 9.5 (8.6-10.3) mg/dl Magnesium 1.9 (1.7-2.4) mg/dl Total Bilirubin 0.3 (0.2-1.0) mg/dl AST 14 (13-39) U/L ALT 12 (7-52) U/L Alkaline Phosphatase 71 (34-104) U/L Total Protein 7.1 (6.0-8.3) gm/dl Albumin 4.3 (3.4-5.0) gm/dl Globulin 2.8 (2.5-4.0) gm/dl Albumin/Globulin Ratio 1.5 (0.9-2) Lipase 40 (11-82) U/L Procalcitonin 0.03 (0-0.5) ng/ml HCG, Qual Negative (Negative) Urine Color Dark Yellow Urine Appearance Clear (Clear) Urine pH 6.0 (4.5-7.5) Ur Specific [place] 1.012 (1.000-1.030) Urine Protein Negative (Negative) Urine Glucose (UA) Negative (Negative) Urine Ketones Negative (Negative) Urine Blood Negative (Negative) Urine Nitrite Negative (Negative) Urine Bilirubin Negative (Negative) Urine Urobilinogen Negative (Negative) Ur Leukocyte Esterase Trace H (Negative) Urine WBC (Auto) 6-10 H (0-5) /hpf Urine RBC (Auto) 0-2 (0-2) /hpf U Hyaline Cast (Auto) 0-2 (0-2) /lpf U Epithel Cells (Auto) 0-2 (0-2) /hpf Urine Bacteria (Auto) 2+ H (None Seen) Adenovirus (PCR) (NotDetected) B. pertussis DNA (PCR) (NotDetected) B.parapertussis DNA PCR (NotDetected) C. pneumoniae DNA (PCR) (NotDetected) Coronavirus OC43 (PCR) (NotDetected) Coronavirus HKU1 (PCR) (NotDetected) Coronavirus 229E (PCR) (NotDetected) SARS-CoV-2 (PCR) (NotDetected) Coronavirus NL63 (PCR) (NotDetected) Human Metapneumovir PCR (NotDetected) Influenza Type A (PCR) (NotDetected) Influenza Type B (PCR) (NotDetected) M. pneumoniae (PCR) (NotDetected) Parainfluenza 1 (PCR) (NotDetected) Parainfluenza 2 (PCR) (NotDetected) Parainfluenza 3 (PCR) (NotDetected) Parainfluenza 4 (PCR) (NotDetected) RSV (PCR) (NotDetected) Entero/Rhino (PCR) (NotDetected) Group A Strep (PCR) (NotDetected) 08/22/24 Range/Units 14:06 WBC (4.8-10.8) K/ul RBC (4.20-5.40) M/uL Hgb (12.0-16.0) g/dl Hct (37.0-47.0) % MCV (80.0-100.0) fL MCH (25.0-34.0) pg MCHC (32.0-36.0) g/dL RDW Std Deviation (36.4-46.3) fL RDW Coeff of Jerald (11.5-14.5) % Plt Count (130-400) K/uL MPV (9.4-12.4) fL Immature Gran % (Auto) % Neut % (Auto) % Lymph % (Auto) % Stanley % (Auto) % Eos % (Auto) % Baso % (Auto) % Neut # (Auto) (1.40-6.50) K/uL Lymph # (Auto) (1.20-3.40) K/uL Stanley # (Auto) (0.11-0.59) K/uL Eos # (Auto) (0.00-0.50) K/uL Baso # (Auto) (0.00-0.20) K/uL Immature Gran # (Auto) (0.01-0.20) K/uL Anisocytosis PT (9.0-12.0) Seconds INR (0.9-1.1) APTT (21-31) Seconds PTT Ratio Sodium (136-145) mmol/L Potassium (3.5-5.1) mmol/L Chloride (98-107) mmol/L Carbon Dioxide (21-32) mmol/L Anion Gap (3-11) BUN (6-23) mg/dl Creatinine (0.6-1.2) mg/dl Est Cr Clr Drug Dosing ml/min eGFR BUN/Creatinine Ratio (10-20) Glucose (70-99(Fasting)) mg/dl Lactate (0.4-2.0) mmol/L Calcium (8.6-10.3) mg/dl Magnesium (1.7-2.4) mg/dl Total Bilirubin (0.2-1.0) mg/dl AST (13-39) U/L ALT (7-52) U/L Alkaline Phosphatase (34-104) U/L Total Protein (6.0-8.3) gm/dl Albumin (3.4-5.0) gm/dl Globulin (2.5-4.0) gm/dl Albumin/Globulin Ratio (0.9-2) Lipase (11-82) U/L Procalcitonin (0-0.5) ng/ml HCG, Qual (Negative) Urine Color Urine Appearance (Clear) Urine pH (4.5-7.5) Ur Specific [place] (1.000-1.030) Urine Protein (Negative) Urine Glucose (UA) (Negative) Urine Ketones (Negative) Urine Blood (Negative) Urine Nitrite (Negative) Urine Bilirubin (Negative) Urine Urobilinogen (Negative) Ur Leukocyte Esterase (Negative) Urine WBC (Auto) (0-5) /hpf Urine RBC (Auto) (0-2) /hpf U Hyaline Cast (Auto) (0-2) /lpf U Epithel Cells (Auto) (0-2) /hpf Urine Bacteria (Auto) (None Seen) Adenovirus (PCR) Not Detected (NotDetected) B. pertussis DNA (PCR) Not Detected (NotDetected) B.parapertussis DNA PCR Not Detected (NotDetected) C. pneumoniae DNA (PCR) Not Detected (NotDetected) Coronavirus OC43 (PCR) Not Detected (NotDetected) Coronavirus HKU1 (PCR) Not Detected (NotDetected) Coronavirus 229E (PCR) Not Detected (NotDetected) SARS-CoV-2 (PCR) Not Detected (NotDetected) Coronavirus NL63 (PCR) Not Detected (NotDetected) Human Metapneumovir PCR Not Detected (NotDetected) Influenza Type A (PCR) Not Detected (NotDetected) Influenza Type B (PCR) Not Detected (NotDetected) M. pneumoniae (PCR) Not Detected (NotDetected) Parainfluenza 1 (PCR) Not Detected (NotDetected) Parainfluenza 2 (PCR) Not Detected (NotDetected) Parainfluenza 3 (PCR) Not Detected (NotDetected) Parainfluenza 4 (PCR) Not Detected (NotDetected) RSV (PCR) Not Detected (NotDetected) Entero/Rhino (PCR) Not Detected (NotDetected) Group A Strep (PCR) NOT DETECTED (NotDetected) Medications Administered Current Inpatient Medications Acetaminophen (Acetaminophen 325 Mg Tab) 650 mg PO Q4H PRN PRN Reason: Pain or Fever Stop: 09/21/24 20:28 Apixaban (Apixaban 5 Mg Tablet) 5 mg PO BID PENDING SALE TO [facility] Stop: 09/21/24 20:59 Last Admin: 08/22/24 21:40 Dose: 5 mg Baclofen (Baclofen 20 Mg Tab) 20 mg PO TID PENDING SALE TO [facility] Stop: 09/21/24 20:59 Last Admin: 08/22/24 21:40 Dose: 20 mg Bisacodyl (Bisacodyl 10 Mg Supp) 10 mg AK DAILY PRN PRN Reason: Constipation Stop: 09/21/24 20:28 Buspirone HCl (Buspirone 7.5 Mg Tab) 7.5 mg PO BID PENDING SALE TO [facility] Stop: 09/21/24 20:59 Last Admin: 08/22/24 21:37 Dose: 7.5 mg Cetirizine HCl (Cetirizine Hcl 10 Mg Tablet) 10 mg PO QAM PENDING SALE TO [facility] Stop: 09/22/24 08:59 Cyclobenzaprine HCl (Cyclobenzaprine Hcl 10 Mg Tab) 10 mg PO BID PRN PRN Reason: Muscle Spasm Stop: 09/21/24 18:36 Dicyclomine HCl (Dicyclomine Hcl 10 Mg Cap) 10 mg PO QID PRN PRN Reason: Indigestion/Abd pain Stop: 09/21/24 18:36 Docusate Sodium (Docusate Sodium 100 Mg Cap) 100 mg PO BID PENDING SALE TO [facility] Stop: 09/21/24 20:59 Last Admin: 08/22/24 22:06 Dose: 100 mg Famotidine (Famotidine 20 Mg Tab) 20 mg PO DAILY PRN PRN Reason: Acid Reflux Stop: 09/21/24 18:36 Fluoxetine HCl (Fluoxetine Hcl 20 Mg Cap) 60 mg PO QAM PENDING SALE TO [facility] Stop: 09/22/24 08:59 Fluticasone Propionate (Fluticasone Propionate Na Spr 16 Gm Btl) 2 sprays NA QAM PENDING SALE TO [facility] Stop: 09/22/24 08:59 Hydroxyzine HCl (Hydroxyzine Hcl 25 Mg Tab) 50 mg PO TID PRN PRN Reason: Anxiety Stop: 09/21/24 18:36 Ampicillin Sodium 2,000 mg/ (Sodium Chloride) 100 mls @ 200 mls/hr IV Q6H PENDING SALE TO [facility] Stop: 09/01/24 20:59 Last Infusion: 08/23/24 02:55 Dose: Infused Lactobacillus Acidophilus (Advanced Probiotic 625 Mg Capsule) 1,250 mg PO DAILY PENDING SALE TO [facility] Stop: 09/22/24 08:59 Losartan Potassium (Losartan Potassium 25 Mg Tab) [facility] [place] Stop: 09/22/24 08:59 Lurasidone HCl (Lurasidone Hcl 20 Mg Tab) 40 mg PO DAILYBD PENDING SALE TO [facility] Stop: 09/21/24 20:59 Last Admin: 08/22/24 21:37 Dose: 40 mg Magnesium Citrate (Magnesium Citrate 296 Ml/Btl) 50 ml PO DAILY PRN PRN Reason: No BM w/in 48 hours Stop: 09/21/24 20:28 Magnesium Hydroxide (Magnesium Hydroxide Susp 30 Ml Udc) 30 ml PO Q12H PRN PRN Reason: Constipation Stop: 09/21/24 20:28 Multivitamins/Minerals (Cerovite Adv Formula Tab) 1 [facility] [place] Stop: 09/22/24 08:59 Ondansetron HCl (Ondansetron Inj 2 Mg/Ml 2 Ml Vial) 4 mg IV Q6H PRN PRN Reason: Nausea Stop: 09/21/24 20:28 Oxybutynin Chloride (Oxybutynin Chloride Xl 5 Mg Tabcr) 5 [facility] [place] Stop: 09/22/24 08:59 Oxybutynin Chloride (Oxybutynin Chloride 5 Mg Tab) 5 mg PO Q8H PRN PRN Reason: bladder spasms Stop: 09/21/24 18:36 Last Admin: 08/23/24 00:58 Dose: 5 mg Oxycodone HCl (Oxycodone Hcl Ir 5 Mg Tab (Immediate Release)) 5 mg PO Q4H PRN PRN Reason: Severe Pain (Scale Score 7-10) Stop: 09/05/24 18:36 Last Admin: 08/23/24 05:11 Dose: 5 mg Pantoprazole Sodium (Pantoprazole 40 Mg Tab) 40 mg PO BID [facility]IB[facility] Stop: 09/21/24 20:59 Last Admin: 08/22/24 21:40 Dose: 40 mg Phenazopyridine HCl (Phenazopyridine Hcl 200 Mg Tab) 200 mg PO Q8H PRN PRN Reason: pain Stop: 09/21/24 18:36 Polyethylene Glycol (Polyethylene (Miralax) 17 Gm Pack) 17 gm PO DAILY PENDING SALE TO [facility] Stop: 09/21/24 20:28 Last Admin: 08/22/24 21:48 Dose: 17 gm Prazosin HCl (Prazosin Hcl 1 Mg Cap) 2 mg PO HS PENDING SALE TO [facility] Stop: 09/21/24 20:59 Last Admin: 08/22/24 21:39 Dose: 2 mg Sodium Biphosphate/Sodium Phosphate (Sod Phosphate/Sod Biphosphate Enema 132 Ml Btl) 132 ml AK DAILY PRN PRN Reason: Constipation Stop: 09/21/24 20:28 Sucralfate (Sucralfate 1 Gm Tab) 1 gm PO QID PENDING SALE TO [facility] Stop: 09/21/24 20:59 Last Admin: 08/22/24 21:40 Dose: Not Given Topiramate (Topiramate 50 Mg Tab) 50 mg PO BID PENDING SALE TO [facility] Stop: 09/21/24 20:59 Last Admin: 08/22/24 21:37 Dose: 50 mg Trazodone HCl (Trazodone Hcl 100 Mg Tab) 100 mg PO HS PENDING SALE TO [facility] Stop: 09/21/24 20:59 Last Admin: 08/22/24 21:38 Dose: 100 mg Vibegron (Vibegron 75 Mg Tab) 75 mg PO DAILY PENDING SALE TO [facility] Stop: 09/22/24 08:59 Vitamin D (Cholecalciferol 25 Mcg (1000 Units) Tab) 25 mcg PO QAM PENDING SALE TO [facility] Stop: 09/22/24 08:59 (3) Hypertension Hypertension type: unspecified Qualified Code(s): I10 - Essential (primary) hypertension (5) Bipolar disorder Active/Remission status: remission status unspecified Qualified Code(s): F31.9 - Bipolar disorder, unspecified
[2024-08-23] MEDS: ADVANCED PROBIOTIC 625 MG CAPSULE PO SCH (08:02)
[2024-08-23] MEDS: FLUTICASONE PROPIONATE NA SPR 16 GM BTL SCH (08:02)
[2024-08-23] MEDS: FLUoxetine HCL 20 MG CAP PO SCH (08:03)
[2024-08-23] MEDS: VIBEGRON 75 MG TAB PO SCH (08:03)
[2024-08-23] MEDS: CETIRIZINE HCL 10 MG TABLET PO SCH (08:03)
[2024-08-23] MEDS: CHOLECALCIFEROL 25 MCG (1000 UNITS) TAB PO SCH (08:03)
[2024-08-23] MEDS: LOSARTAN POTASSIUM 25 MG TAB PO SCH (08:03)
[2024-08-23 08:08] LABS: Hematocrit (blood only) 32.8 % (37.0-47.0); Hemoglobin 10.7 g/dl (12.0-16.0); Mean Corpuscular Hgb Conc 32.6 g/dL (32.0-36.0); Mean Corpuscular Volume 82.6 fL (80.0-100.0); Mean Platelet Volume 10.2 fL (9.4-12.4); Platelet Count 288 K/uL (130-400); RDW Coefficient of Variation 23.8 % (11.5-14.5); Red Blood Count 3.97 M/uL (4.20-5.40); White Blood Count 6.97 K/ul (4.8-10.8)
[2024-08-23] MEDS: CEROVITE ADV FORMULA TAB PO SCH (08:08)
[2024-08-23 08:16] LABS: BUN Creatinine Ratio 18.9 (10-20); Calcium 8.8 mg/dl (8.6-10.3); Potassium 3.4 mmol/L (3.5-5.1)
[2024-08-23] MEDS: OXYBUTYNIN CHLORIDE XL 5 MG TABCR PO SCH (10:23)
[2024-08-23] MEDS: ONDANSETRON INJ 2 MG/ML 2 ML VIAL IV PRN (10:23)
[2024-08-23] MEDS: SUMAtriptan succinate 25 MG TAB PO PRN (13:57)
--- NOTE | 2024-08-23 15:52 | Urology Consultation ---
<Statement entered by Kurtis Lucas MD - 08/23/24 16:40> 39-year-old female with neurogenic bladder and SP tube. She is already on multiple medications for bladder spasms. This may be exacerbated by infection and hopefully spasms will improve as infection is treated. Reasonable to exchange SP tube after 24 hours of antibiotics. Date of Consultation August 23, 2024 Assessment & Plan (1) Recurrent UTI: (2) UTI (urinary tract infection): (3) Chronic suprapubic catheter: (4) Bladder spasms: 39-year-old female with history of neurogenic bladder managed with suprapubic catheter admitted for IV antibiotics for urinary tract infection. Patient is afebrile, hemodynamically stable Labs reviewedcreatinine 0.53, WBC 6.97, hemoglobin 10.7 Urine culture 08/19 with Enterococcus, UC 08/22 prelim with Enterococcus Continue antibiotics per previous culture and follow culture data Blood cultures with no growth x 24 hours Patient is due for suprapubic catheter exchange in urology office on Tuesday Suprapubic catheter can be exchanged by nursing per protocol while she is inpati ent, recommend change SP after 24 hours of appropriate IV antibiotics Then plan to resume monthly exchanges in the urology office Continue Gemtesa and oxybutynin for bladder spasms She has follow-up with urology in September to set up next Botox injection Continue supportive care and antibiotics per hospital medicine service will sign off, please contact our service with any additional questions or concerns History of Present Illness Attending Physician: Ramiro Arnett MD History of Present Illness This is a 39-year-old female who follows with urology for neurogenic bladder managed with indwelling suprapubic catheter, incontinence, history of Botox injection for severe bladder spasms (last Botox on 07/05/2024) and history of recurrent UTIs who presented to the ED on 08/22/2024 for evaluation of UTI and right flank pain. She was recently seen in the ER on 08/19/2024 and diagnosed with UTI and was started on Macrobid. She was referred back to the ED for IV antibiotics based on previous urine culture results. Urology is consulted for suprapubic catheter, recurrent UTIs Urinalysis 08/22/2024 showed trace LE, 6-10 WBC, 2+ bacteria Blood cultures 08/22/2024 pending Urine culture 08/22/2024 prelim with Enterococcus faecalis Prior urine culture on 08/19/2024 grew out greater than 100 K CFU of Enterococcus faecalis Labs today reviewedcreatinine 0.53, WBC 6.97, hemoglobin 10.7 Patient seen and examined at bedside this afternoon. She reports she is feeling a little better since arrival. She reports her urine had increased sediment prior to arrival as well as increased bladder spasms and SP site discomfort. Suprapubic catheter intact. She denies fever or chills. Reports mild nausea. She is awaiting appointment with reconstructive urologist at [place] in November 2024. She is scheduled for SP catheter exchange in the urology office on 08/27/2024. Allergies Allergy/AdvReac Type Severity Reaction Status Date / Time aripiprazole [From Abilify] Allergy Severe "Couldn't Verified 08/19/24 17:06 breathe" aztreonam Allergy Severe Dyspnea Verified 08/19/24 17:06 Beta-Blockers Allergy Severe "Couldn't Verified 08/19/24 17:06 (Beta-Adrenergic Bloc breathe" Gadolinium-Containing Allergy Severe Swelling Verified 08/19/24 17:06 Contrast Medi of Lip/Tongue/Throat hydrocodone Allergy Severe Hives Verified 08/19/24 17:06 lithium Allergy Severe Unconscious, Verified 08/19/24 17:06 unresponsive meperidine Allergy Severe Respiratory Verified 08/19/24 17:06 distress propranolol Allergy Severe Anaphylaxis Verified 08/19/24 17:06 verapamil Allergy Severe "Cant Verified 08/19/24 17:06 breathe" fexofenadine Allergy Intermediate Hives Verified 08/19/24 17:06 linezolid Allergy Intermediate Dyspnea Verified 08/19/24 17:06 propoxyphene Allergy Intermediate Hives Verified 08/19/24 17:06 Sulfa (Sulfonamide Allergy Intermediate Dyspnea Verified 08/19/24 17:06 Antibiotics) ketorolac Allergy Mild Itchy Verified 08/19/24 17:06 latex Allergy Mild contact Verified 08/19/24 17:06 dermatitis neomycin Allergy Mild Itchy Verified 08/19/24 17:06 tetracycline Allergy Unknown Unknown Verified 08/19/24 17:06 Iodinated Contrast Media Allergy Itching Verified 08/19/24 17:06 Home Medications Medication Instructions Recorded Confirmed Type albuterol sulfate 90 mcg/actuation 2 puff inhalation QID PRN 04/13/18 08/22/24 History aerosol inhaler (Ventolin HFA) Shortness Of Breath cetirizine 10 mg tablet (Zyrtec) 10 mg PO QAM 04/13/18 08/22/24 History hydroxyzine HCl 50 mg tablet 50 mg PO TID PRN Anxiety 04/13/18 08/22/24 History polyethylene glycol 3350 17 17 g PO BID PRN Constipation 04/13/18 08/22/24 History gram/dose oral powder (Miralax) prochlorperazine maleate 10 mg 10 mg PO Q8H PRN Nausea 04/13/18 08/22/24 History tablet (Compazine) baclofen 20 mg tablet 20 mg PO TID 08/09/19 08/22/24 History cyclobenzaprine 10 mg tablet 10 mg PO BID PRN Muscle Spasm 03/29/20 08/22/24 History onabotulinumtoxinA 100 unit 200 unit IM Q90D 03/29/20 08/22/24 History solution for injection (Botox) acetaminophen 500 mg tablet 1,000 mg PO Q6H PRN Pain 09/11/20 08/22/24 History (Tylenol Extra Strength) apixaban 5 mg tablet (Eliquis) 5 mg PO BID 04/04/23 08/22/24 History lurasidone 40 mg tablet (Latuda) 40 mg PO PM 04/04/23 08/22/24 History famotidine 20 mg tablet 20 mg PO DAILY PRN Acid Reflux 09/29/23 08/22/24 History topiramate 50 mg tablet 50 mg PO BID 09/29/23 08/22/24 History cholecalciferol (vitamin D3) 25 25 mcg PO QAM 10/14/23 08/22/24 History mcg (1,000 unit) tablet (Vitamin D3) cyanocobalamin (vitamin B-12) 1,000 mcg IM Q3M 10/14/23 08/22/24 History 1,000 mcg/mL injection solution docusate sodium 100 mg capsule 200 mg PO DAILY PRN Constipation 10/14/23 08/22/24 History (Colace) losartan 25 mg tablet 25 mg PO QAM 11/24/23 08/22/24 History oxybutynin chloride 5 mg tablet 5 mg PO Q8H PRN bladder spasms #90 05/09/24 08/22/24 Rx tabs buspirone 7.5 mg tablet 7.5 mg PO BID 06/17/24 08/22/24 History fluoxetine 60 mg tablet 60 mg PO QAM 06/17/24 08/22/24 History galcanezumab-gnlm 120 mg/mL 120 mg subcut MONTHLY 06/17/24 08/22/24 History subcutaneous syringe (Emgality) ondansetron HCl 4 mg tablet 4 mg PO Q8H PRN n/v 06/17/24 08/22/24 History sucralfate 1 gram tablet 1 g PO QID 06/17/24 08/22/24 History zolmitriptan 5 mg tablet 5 mg PO DIRECTED PRN Migraine 06/17/24 08/22/24 History Headache tolterodine 2 mg capsule,extended 2 mg PO QAM 06/20/24 08/22/24 History release 24 hr phenazopyridine 200 mg tablet 200 mg PO Q8H PRN pain #10 tabs 07/05/24 08/22/24 Rx (Pyridium) mirabegron 50 mg tablet,extended 50 mg PO QAM 08/05/24 08/22/24 History release 24 hr (Myrbetriq) multivitamin with minerals-folic 1 tab PO QAM 08/05/24 08/22/24 History acid 200 mcg chewable tablet (Multivitamin Gummies) omeprazole 20 mg capsule,delayed 20 mg PO BID 08/05/24 08/22/24 History release dicyclomine 10 mg capsule 10 mg PO QID PRN Indigestion/Abd 08/19/24 08/22/24 History pain fluticasone propionate 50 2 spray intranasal QAM 08/19/24 08/22/24 History mcg/actuation nasal spray,suspension loperamide 2 mg capsule 2 mg PO QID PRN Diarrhea 08/19/24 08/22/24 History nitrofurantoin 100 mg PO BID 7 days #14 caps 08/19/24 08/22/24 Rx monohydrate/macrocrystals 100 mg capsule (Macrobid) oxycodone 5 mg tablet 5 mg PO Q4H PRN Severe Pain (Scale 08/19/24 08/22/24 History Score 7-10) prazosin 1 mg capsule 2 mg PO HS 08/19/24 08/22/24 History trazodone 100 mg tablet 100 mg PO HS 08/19/24 08/22/24 History Patient History Medical History COPD (chronic obstructive pulmonary disease) Spina bifida per chart review Muscle spasticity Gastric ulcer following with [facility]; had EGD 06/04/24 and scheduled for f/u in 3months Anemia History of chest pain [facility] ED visit 06/17/24; acute cardiopulmonary cause r/o; pt anemic; told to f/u with PCP and Cardio Urinary retention Paralysis of both lower limbs 2/2 Cerebral palsy; pt states has limited sensation and strength in b/l legs; states that she can stand with 1 person assist to pivot to chair/toilet but cannot walk; uses WC Depression Anxiety disorder Morbid obesity Bladder spasms Hematuria Hx MRSA infection (2007) Urine 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) Approximately 02/2023 (urine) Hx of migraines History of pulmonary embolism (2019) Approximately 2019 post-op - no issues since Taking Eliquis History of deep vein thrombosis (2019) x2 Taking Eliquis Asthma GERD (gastroesophageal reflux disease) 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; uses walker; needs 1 person assist to stand and pivot Hypertension Neurogenic bladder Chronic suprapubic catheter in place Bipolar depression Frequent UTI frequent s/p suprapubic catheter placement; currently with UTI and on ampicillin Radicular low back pain Chronic back pain Insulin resistance States blood sugar will drop when NPO, requests earlier OR time for all procedures History of COVID-19 (06/2023) mild symptoms, resolved Degenerative disc disease Surgical History History of transurethral resection of bladder tumor (TURBT) (2022) Postoperative nausea +hx PONV Chronic suprapubic catheter mutliple changes in OR History of hysterectomy H/O gastric bypass History of cystoscopy multiple with suprapubic catheter exchange; most recent 01/2024: MAC without issue History of esophagogastroduodenoscopy (EGD) History of foot surgery R/L (+ hardware) History of colonoscopy most recent 12/29/23 History of laminectomy H/O shoulder surgery right S/P surgical manipulation of ankle joint H/O dilation and curettage Hx of eye surgery Hx of spinal fusion Hx of cholecystectomy Family History Father Alive and well Hypertension Mother Alive and well Hypertension Other No family history of adverse response to anesthesia Social History Smoking Status: Never smoker Second Hand Exposure: No; Do You Dip or Chew Tobacco: No; Hx Alcohol Use: No Hx Substance Use: No Preferred Language: Citizen Of [place] Communication Ability: Effective Visual Impairment: No Limitations [employer] Consultant Required: No Beliefs That Will Affect Care: None marital status: Single Current Living Situation: Alone Current Living Situation Comment: Has home health Other Information That Helps Us Care for You: No Feels Safe at Home: Yes Safety Concerns: Feels Safe At This Time Assistive Devices: Hospital Bed, Mechanical Lift, Walker and Wheelchair Review of Systems Review of Systems: All systems reviewed & are unremarkable except as noted in HPI & below Physical Exam Physical Exam: Constitutional: obese, in no acute distress, nontoxic Pulmonary: No increased work of breathing or signs of respiratory distress Cardiovascular: No edema noted Neurologic: oriented x 3 Mood and affect: Normal : SP catheter draining clear yellow Results & Data Vital Signs (Past 12 Hours) Vital Signs Temp Pulse Pulse Resp BP Pulse Ox O2 Del Method 08/23/24 11:32 36.5 C 83 18 127/83 95 Room Air 08/23/24 11:12 66 08/23/24 07:44 36.6 C 72 18 153/86 H 97 Room Air PG Care Time/CCT Total # of Minutes Spent Total Time Spent with Patient: Total time spent is greater than 50% in coordination of care (as documented) at patient's floor/unit and/or counseling patient: Coding Level of Care Code 20907 IN/OBS CONSULT LVL 4,60M Diagnoses Recurrent UTI N39.0 UTI (urinary tract infection) N39.0 Chronic suprapubic catheter Z93.59 Bladder spasms N32.89
--- NOTE | 2024-08-23 15:56 | Infectious Disease Consult ---
<Statement entered by Benny Lee II, DO - 08/24/24 12:30> I saw and evaluated the patient on 08/23/2024. I have reviewed the trainee note and agree. Date of Service August 23, 2024 Telehealth Information I performed this visit using a real-time telehealth connection between my lo cation and the patients location ([facility]). After connecting through interactive tele-video, patient was identified by name and date of and/or wristband check.Patient (or authorized healthcare sales representative groceries) was informed that this was a telemedicine visit and it was being conducted confidentially over secure lines. My office door was closed and no one else was present in the room with me.Patient (or authorized healthcare sales representative groceries) provided consent to proceed with the visit, expressed an understanding of privacy and security of the telemedicine visit, and gave permission to have a hospital sales representative groceries in the room in order to assist with the visit and to conduct portions of the visit, as needed. I informed the patient (or authorized healthcare sales representative groceries) that I reviewed their record and presented the opportunity for them to ask any questions regarding the visit today. The patient agreed to participate. Assessment & Plan (1) UTI (urinary tract infection): (2) Right flank pain: Plan It is unclear whether her allergies represent true allergic reactions or side effects, I am unaware of linezolid causing respiratory paralysis although patient states she stops breathing. She is tolerating ampicillin without difficulty, which goes against true amoxicillin allergy, she may have an easily upset stomach which is quite possible. Unfortunately she also states she has severe vomiting with doxycycline as well. Would recommend continuing with IV ampicillin for the duration of her treatment as unfortunately this does seem our best option. She is not willing to try oral amoxicillin / doxycycline. - ampicillin IV 2 g q.6 hours for a total of 7 days - if oral ampicillin is available, reasonable for also oral ampicillin 500 mg q.6 hours for a total of 7 days Appreciate consultation, Infectious Disease will sign off at this time. please do not hesitate to reach out for any further questions or concerns. Jose G Jonas MD PGY5 Infectious Disease History of Present Illness History of Present Illness 39 F w Spina bifida, spastic plegic cerebral palsy, neurogenic bladder s/p chronic suprapubic catheter, IBS, morbid obesity s/p gastric bypass 2021, DVT/PE on Eliquis. Previously seen in [facility] ED 3/9/25 w suprapubic abd pain and right flank pain diagnosed w UTI sent home on macrobid, urine cultures with Enterococcus faecalis and was called back to hospital. Patient has since had minimal improvement. UA w trace esterase 6-[address] w/o signs of Pylonephritis. No wbc elevation. Received IV ampicillin in ER. She states she has vomitting with amoxicillin/augmentin and is unable to take linezolid d/t difficulty breathing. Allergies Allergy/AdvReac Type Severity Reaction Status Date / Time aripiprazole [From Abilify] Allergy Severe "Couldn't Verified 08/19/24 17:06 breathe" aztreonam Allergy Severe Dyspnea Verified 08/19/24 17:06 Beta-Blockers Allergy Severe "Couldn't Verified 08/19/24 17:06 (Beta-Adrenergic Bloc breathe" Gadolinium-Containing Allergy Severe Swelling Verified 08/19/24 17:06 Contrast Medi of Lip/Tongue/Throat hydrocodone Allergy Severe Hives Verified 08/19/24 17:06 lithium Allergy Severe Unconscious, Verified 08/19/24 17:06 unresponsive meperidine Allergy Severe Respiratory Verified 08/19/24 17:06 distress propranolol Allergy Severe Anaphylaxis Verified 08/19/24 17:06 verapamil Allergy Severe "Cant Verified 08/19/24 17:06 breathe" fexofenadine Allergy Intermediate Hives Verified 08/19/24 17:06 linezolid Allergy Intermediate Dyspnea Verified 08/19/24 17:06 propoxyphene Allergy Intermediate Hives Verified 08/19/24 17:06 Sulfa (Sulfonamide Allergy Intermediate Dyspnea Verified 08/19/24 17:06 Antibiotics) ketorolac Allergy Mild Itchy Verified 08/19/24 17:06 latex Allergy Mild contact Verified 08/19/24 17:06 dermatitis neomycin Allergy Mild Itchy Verified 08/19/24 17:06 tetracycline Allergy Unknown Unknown Verified 08/19/24 17:06 Iodinated Contrast Media Allergy Itching Verified 08/19/24 17:06 Home Medications Medication Instructions Recorded Confirmed Type albuterol sulfate 90 mcg/actuation 2 puff inhalation QID PRN 04/13/18 08/22/24 History aerosol inhaler (Ventolin HFA) Shortness Of Breath cetirizine 10 mg tablet (Zyrtec) 10 mg PO QAM 04/13/18 08/22/24 History hydroxyzine HCl 50 mg tablet 50 mg PO TID PRN Anxiety 04/13/18 08/22/24 History polyethylene glycol 3350 17 17 g PO BID PRN Constipation 04/13/18 08/22/24 History gram/dose oral powder (Miralax) prochlorperazine maleate 10 mg 10 mg PO Q8H PRN Nausea 04/13/18 08/22/24 History tablet (Compazine) baclofen 20 mg tablet 20 mg PO TID 08/09/19 08/22/24 History cyclobenzaprine 10 mg tablet 10 mg PO BID PRN Muscle Spasm 03/29/20 08/22/24 History onabotulinumtoxinA 100 unit 200 unit IM Q90D 03/29/20 08/22/24 History solution for injection (Botox) acetaminophen 500 mg tablet 1,000 mg PO Q6H PRN Pain 09/11/20 08/22/24 History (Tylenol Extra Strength) apixaban 5 mg tablet (Eliquis) 5 mg PO BID 04/04/23 08/22/24 History lurasidone 40 mg tablet (Latuda) 40 mg PO PM 04/04/23 08/22/24 History famotidine 20 mg tablet 20 mg PO DAILY PRN Acid Reflux 09/29/23 08/22/24 History topiramate 50 mg tablet 50 mg PO BID 09/29/23 08/22/24 History cholecalciferol (vitamin D3) 25 25 mcg PO QAM 10/14/23 08/22/24 History mcg (1,000 unit) tablet (Vitamin D3) cyanocobalamin (vitamin B-12) 1,000 mcg IM Q3M 10/14/23 08/22/24 History 1,000 mcg/mL injection solution docusate sodium 100 mg capsule 200 mg PO DAILY PRN Constipation 10/14/23 08/22/24 History (Colace) losartan 25 mg tablet 25 mg PO QAM 11/24/23 08/22/24 History oxybutynin chloride 5 mg tablet 5 mg PO Q8H PRN bladder spasms #90 05/09/24 08/22/24 Rx tabs buspirone 7.5 mg tablet 7.5 mg PO BID 06/17/24 08/22/24 History fluoxetine 60 mg tablet 60 mg PO QAM 06/17/24 08/22/24 History galcanezumab-gnlm 120 mg/mL 120 mg subcut MONTHLY 06/17/24 08/22/24 History subcutaneous syringe (Emgality) ondansetron HCl 4 mg tablet 4 mg PO Q8H PRN n/v 06/17/24 08/22/24 History sucralfate 1 gram tablet 1 g PO QID 06/17/24 08/22/24 History zolmitriptan 5 mg tablet 5 mg PO DIRECTED PRN Migraine 06/17/24 08/22/24 History Headache tolterodine 2 mg capsule,extended 2 mg PO QAM 06/20/24 08/22/24 History release 24 hr phenazopyridine 200 mg tablet 200 mg PO Q8H PRN pain #10 tabs 07/05/24 08/22/24 Rx (Pyridium) mirabegron 50 mg tablet,extended 50 mg PO QAM 08/05/24 08/22/24 History release 24 hr (Myrbetriq) multivitamin with minerals-folic 1 tab PO QAM 08/05/24 08/22/24 History acid 200 mcg chewable tablet (Multivitamin Gummies) omeprazole 20 mg capsule,delayed 20 mg PO BID 08/05/24 08/22/24 History release dicyclomine 10 mg capsule 10 mg PO QID PRN Indigestion/Abd 08/19/24 08/22/24 History pain fluticasone propionate 50 2 spray intranasal QAM 08/19/24 08/22/24 History mcg/actuation nasal spray,suspension loperamide 2 mg capsule 2 mg PO QID PRN Diarrhea 08/19/24 08/22/24 History nitrofurantoin 100 mg PO BID 7 days #14 caps 08/19/24 08/22/24 Rx monohydrate/macrocrystals 100 mg capsule (Macrobid) oxycodone 5 mg tablet 5 mg PO Q4H PRN Severe Pain (Scale 08/19/24 08/22/24 History Score 7-10) prazosin 1 mg capsule 2 mg PO HS 08/19/24 08/22/24 History trazodone 100 mg tablet 100 mg PO HS 08/19/24 08/22/24 History Patient History Medical History COPD (chronic obstructive pulmonary disease) Spina bifida per chart review Muscle spasticity Gastric ulcer following with [facility]; had EGD 06/04/24 and scheduled for f/u in 3months Anemia History of chest pain [facility] ED visit 06/17/24; acute cardiopulmonary cause r/o; pt anemic; told to f/u with PCP and Cardio Urinary retention Paralysis of both lower limbs 2/2 Cerebral palsy; pt states has limited sensation and strength in b/l legs; states that she can stand with 1 person assist to pivot to chair/toilet but cannot walk; uses WC Depression Anxiety disorder Morbid obesity Bladder spasms Hematuria Hx MRSA infection (2007) Urine 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) Approximately 02/2023 (urine) Hx of migraines History of pulmonary embolism (2019) Approximately 2019 post-op - no issues since Taking Eliquis History of deep vein thrombosis (2019) x2 Taking Eliquis Asthma GERD (gastroesophageal reflux disease) 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; uses walker; needs 1 person assist to stand and pivot Hypertension Neurogenic bladder Chronic suprapubic catheter in place Bipolar depression Frequent UTI frequent s/p suprapubic catheter placement; currently with UTI and on ampi cillin Radicular low back pain Chronic back pain Insulin resistance States blood sugar will drop when NPO, requests earlier OR time for all procedures History of COVID-19 (06/2023) mild symptoms, resolved Degenerative disc disease Surgical History History of transurethral resection of bladder tumor (TURBT) (2022) Postoperative nausea +hx PONV Chronic suprapubic catheter mutliple changes in OR History of hysterectomy H/O gastric bypass History of cystoscopy multiple with suprapubic catheter exchange; most recent 01/2024: MAC without issue History of esophagogastroduodenoscopy (EGD) History of foot surgery R/L (+ hardware) History of colonoscopy most recent 12/29/23 History of laminectomy H/O shoulder surgery right S/P surgical manipulation of ankle joint H/O dilation and curettage Hx of eye surgery Hx of spinal fusion Hx of cholecystectomy Family History Father Alive and well Hypertension Mother Alive and well Hypertension Other No family history of adverse response to anesthesia Social History Smoking Status: Never smoker Second Hand Exposure: No; Do You Dip or Chew Tobacco: No; Hx Alcohol Use: No Hx Substance Use: No Preferred Language: [place] Communication Ability: Effective Visual Impairment: No Limitations Tsa Screener Required: No Beliefs That Will Affect Care: None marital status: Single Current Living Situation: Alone Current Living Situation Comment: Has home health Other Information That Helps Us Care for You: No Feels Safe at Home: Yes Safety Concerns: Feels Safe At This Time Assistive Devices: Hospital Bed, Mechanical Lift, Walker and Wheelchair Review of Systems CONSTITUTIONAL: Denies weight loss, fever and chills. HEENT: Denies changes in vision and hearing. RESPIRATORY: Denies SOB and cough. CV: Denies palpitations and CP. GI: Denies abdominal pain, nausea, vomiting and diarrhea. : Denies dysuria and urinary frequency. MSK: Denies myalgia and joint pain. SKIN: Denies rash and pruritus. NEUROLOGICAL: Denies headache and syncope PSYCHIATRIC: Denies recent changes in mood. Denies anxiety and depression. Physical Exam GENERAL: Appears as stated age. No acute distress. NEUROLOGIC: No focal neurological deficits. Cranial nerves grossly intact. Results & Data Vital Signs (Past 12 Hours) Vital Signs Temp Pulse Pulse Resp BP Pulse Ox O2 Del Method 08/23/24 11:32 36.5 C 83 18 127/83 95 Room Air 08/23/24 11:12 66 08/23/24 07:44 36.6 C 72 18 153/86 H 97 Room Air Laboratory Results 08/22/24 14:32 Aerobic Blood Culture - Preliminary Blood No growth in Aerobic bottle after 24 hours. Anaerobic Blood Culture - Preliminary No growth in Anaerobic bottle after 24 hours. 08/22/24 15:07 Urine Culture - Preliminary Urine,Clean Catch Enterococcus faecalis 08/22/24 16:40 Aerobic Blood Culture - Pending Blood Anaerobic Blood Culture - Pending 08/23/24 07:22 WBC 6.97 RBC 3.97 L Hgb 10.7 L Hct 32.8 L MCV 82.6 MCH 27.0 MCHC 32.6 RDW Std Deviation 70.0 H RDW Coeff of Jerald 23.8 H Plt Count 288 MPV 10.2 Sodium 142 Potassium 3.4 L Chloride 112 H Carbon Dioxide 24 Anion Gap 6 BUN 10 Creatinine 0.53 L Est Cr Clr Drug Dosing 126.0 eGFR 121.33 BUN/Creatinine Ratio 18.9 Glucose 77 Calcium 8.8 Magnesium 2.0 Diagnostic Findings n/a
[2024-08-23] MEDS: diphenhydrAMINE 50 MG/ML VIAL IV STA (16:29)
[2024-08-23] MEDS: KETOROLAC TROMETHAMINE 15 MG/ML VIAL IV ONE (16:29)
[2024-08-23] MEDS: PROCHLORPERAZINE 10 MG in SYRINGE 8 ML IV ONE (16:30)
[2024-08-24] MEDS: HEPARIN 100 UNIT/ML 5ML FLUSH FLUSH PRN (05:37)
[2024-08-24] MEDS: ACETAMINOPHEN 325 MG TAB PO PRN (05:47)
[2024-08-24 05:59] LABS: Hematocrit (blood only) 33.2 % (37.0-47.0); Hemoglobin 10.6 g/dl (12.0-16.0); Mean Corpuscular Hemoglobin 26.6 pg (25.0-34.0); Mean Corpuscular Hgb Conc 31.9 g/dL (32.0-36.0); Mean Corpuscular Volume 83.2 fL (80.0-100.0); Mean Platelet Volume 9.7 fL (9.4-12.4); Platelet Count 251 K/uL (130-400); RDW Coefficient of Variation 24.3 % (11.5-14.5); RDW Standard Deviation 72.4 fL (36.4-46.3); Red Blood Count 3.99 M/uL (4.20-5.40); White Blood Count 7.42 K/ul (4.8-10.8)
[2024-08-24 06:13] LABS: BUN Creatinine Ratio 18.8 (10-20); Calcium 8.8 mg/dl (8.6-10.3); Creatinine Clr Calc Pharmacy 96.8 ml/min; Phosphorus 3.5 mg/dl (2.5-4.9); Potassium 3.4 mmol/L (3.5-5.1)
--- NOTE | 2024-08-24 08:26 | Hospitalist Progress Note ---
Date of Service August 24, 2024 Assessment & Plan (1) Recurrent UTI: (2) Chronic suprapubic catheter: Plan: Gricel Mancini is a medically complex 38y/o F with extensive PMHx including spina bifida, spastic diplegic cerebral palsy with baseline restricted mobility, chronic indwelling suprapubic catheter due to neurogenic bladder, history of recurrent UTIs, bladder spasms, asthma, GERD without esophagitis, IBS with both constipation and diarrhea, vitamin D deficiency, morbid obesity, intestinal postoperative nonabsorption s/p gastric bypass in 2021, vitamin B12 deficiency, congenital hypoplasia of left femur, osteoarthritis of left hip, chronic pain syndrome, migraines, iron deficiency anemia, JOSE, PTSD, bipolar disorder and 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 Previously seen in the [facility] ED on 08/19/24 due to suprapubic abdominal pain and right flank pain. Extensive history of recurrent UTIs. UA at that time revealed 2+ leukocyte esterase, 11-20 WBC and 1+ bacteria; urine culture grew Enterococcus faecalis and she was discharged home on a course of Macrobid. She was made aware of the urine culture results above earlier today. Noticed minimal improvement in her suprapubic abdominal pain and right flank pain since last being seen in the ED therefore she was told to come back into the ED for further evaluation. Due for suprapubic catheter exchange on 08/27/24. She is requesting to have this changed sooner if possible. Appreciate urology consult. UA with trace leukocyte esterase, 6-10 WBC and 2+ bacteria. CTAP grossly unremarkable with no identifiable acute process. Initial laboratory evaluation reviewed. No leukocytosis. Procalcitonin negative. Lactate negative. No evidence of sepsis on admission. S/p dose of IV ampicillin in ED. which is continued Ucultx positive [place] E. faecalis Cont. IV ampicillin Follow blood cultures. ID consult given recurrent UTIs - cont. IV ampicillin, plan for 7 days. may not have po option (3) Hypertension: Plan: Normotensive on admission. Can continue home antihypertensive regimen. Routine BP monitoring. (4) Bladder spasms: Plan: Continue Myrbetriq, Ditropan XL, prazosin and tolterodine. Notes increased bladder spasms as of lately. Appreciate urology input in this regard. (5) Bipolar disorder: (6) JOSE (generalized anxiety disorder): (7) PTSD (post-traumatic stress disorder): Plan: Chronic, stable. Continue home psychiatric medication regimen. (8) Spastic diplegic cerebral palsy: Plan: Has rotating caretakers at home to assist her throughout the day with ambulation/ADLs. Will continue home baclofen and PRN cyclobenzaprine for muscle spasms. Mostly wheelchair bound at baseline but able to pivot with transfers. (9) Chronic pain syndrome: Plan: On PRN oxycodone therapy at home. She is requesting to continue this. Noted constipation on CTAP. Will start on routine bowel regimen. Suspect opioid- induced constipation. Other Chronic Medical Conditions: Asthma - Stable, no acute exacerbation. GERD/Migraine - Can continue home meds for these specific conditions. DVT Prophylaxis: On Eliquis [employer] given history of DVT/PE - continue. Code Status: FULL CODE PCP: Sarah Saavedra PA-C Disposition: Admit to med/telemetry for further inpatient evaluation and management. Admission and Anticipated Discharge Date Admission Date: August 22, 2024 Subjective Pt seen in follow up of recurrent UTIs, SPC, bladder spasms Currently lying in bed in NAD catheter exchanged today, says she has pain with that no chest pain, shortness of breath ID consulted - cont. IV abx Review of Systems Review of Systems: All systems reviewed & are unremarkable except as noted in Subjective Physical Exam Physical Exam: Gen: A&O 3 NAD HEENT: NCAT, EOMI Neck: Supple Lungs: No Respiratory distress.decreased breath sounds CV: RRR, no edema. Abdomen: suprapubic catheter site noted (just exchanged) Skin: warm, dry Neuro: chronic spasticity and weakness in bilateral LE, mild contractures in bilateral UE Psych: Appropriate for situation. Results & Data Results & Data Vital Signs (Past 12 Hours) Vital Signs Temp Pulse Resp BP Pulse Ox O2 Del Method 08/24/24 06:53 36.3 C L 68 18 120/77 96 Room Air 08/24/24 01:45 36.5 C 78 18 151/91 H 97 Room Air 08/23/24 23:54 36.5 C 90 20 117/65 95 Room Air Laboratory Results 08/24/24 08/24/24 Range/Units 05:52 05:34 WBC 7.42 (4.8-10.8) K/ul RBC 3.99 L (4.20-5.40) M/uL Hgb 10.6 L (12.0-16.0) g/dl Hct 33.2 L (37.0-47.0) % MCV 83.2 (80.0-100.0) fL MCH 26.6 (25.0-34.0) pg MCHC 31.9 L (32.0-36.0) g/dL RDW Std Deviation 72.4 H (36.4-46.3) fL RDW Coeff of Jerald 24.3 H (11.5-14.5) % Plt Count 251 (130-400) K/uL MPV 9.7 (9.4-12.4) fL Sodium 142 (136-145) mmol/L Potassium 3.4 L (3.5-5.1) mmol/L Chloride 112 H (98-107) mmol/L Carbon Dioxide 24 (21-32) mmol/L Anion Gap 6 (3-11) BUN 13 (6-23) mg/dl Creatinine 0.69 (0.6-1.2) mg/dl Est Cr Clr Drug Dosing 96.8 ml/min eGFR 113.85 BUN/Creatinine Ratio 18.8 (10-20) Glucose 82 (70-99(Fasting)) mg/dl POC Glucose 97 (70-99) mg/dl Calcium 8.8 (8.6-10.3) mg/dl Phosphorus 3.5 (2.5-4.9) mg/dl Magnesium 2.0 (1.7-2.4) mg/dl Medications Administered Current Inpatient Medications Acetaminophen (Acetaminophen 325 Mg Tab) 650 mg PO Q4H PRN PRN Reason: Pain or Fever Stop: 09/21/24 20:28 Last Admin: 08/24/24 05:47 Dose: 650 mg Apixaban (Apixaban 5 Mg Tablet) 5 mg PO BID [facility] Stop: 09/21/24 20:59 Last Admin: 08/23/24 22:20 Dose: 5 mg Baclofen (Baclofen 20 Mg Tab) 20 mg PO TID [facility] Stop: 09/21/24 20:59 Last Admin: 08/23/24 22:19 Dose: 20 mg Bisacodyl (Bisacodyl 10 Mg Supp) 10 mg DC DAILY PRN PRN Reason: Constipation Stop: 09/21/24 20:28 Buspirone HCl (Buspirone 7.5 Mg Tab) 7.5 mg PO BID [facility] Stop: 09/21/24 20:59 Last Admin: 08/23/24 22:19 Dose: 7.5 mg Cetirizine HCl (Cetirizine Hcl 10 Mg Tablet) 10 mg PO QAM [facility] Stop: 09/22/24 08:59 Last Admin: 08/23/24 08:03 Dose: 10 mg Cyclobenzaprine HCl (Cyclobenzaprine Hcl 10 Mg Tab) 10 mg PO BID PRN PRN Reason: Muscle Spasm Stop: 09/21/24 18:36 Dicyclomine HCl (Dicyclomine Hcl 10 Mg Cap) 10 mg PO QID PRN PRN Reason: Indigestion/Abd pain Stop: 09/21/24 18:36 Docusate Sodium (Docusate Sodium 100 Mg Cap) 100 mg PO BID [facility] Stop: 09/21/24 20:59 Last Admin: 08/23/24 22:19 Dose: 100 mg Famotidine (Famotidine 20 Mg Tab) 20 mg PO DAILY PRN PRN Reason: Acid Reflux Stop: 09/21/24 18:36 Fluoxetine HCl ([facility] Hcl 20 Mg Cap) [facility]: 09/22/24 08:59 Last Admin: 08/23/24 08:03 Dose: 60 mg Fluticasone Propionate (Fluticasone Propionate Na Spr 16 Gm Btl) 2 sprays NA QAM [facility] Stop: 09/22/24 08:59 Last Admin: 08/23/24 08:02 Dose: 2 sprays Heparin Sodium (Porcine) (Heparin 100 Unit/Ml 5ml Flush) 5 ml FLUSH PRN PRN PRN Reason: Flush Stop: 09/23/24 03:23 Last Admin: 08/24/24 05:37 Dose: 5 ml Hydroxyzine HCl (Hydroxyzine Hcl 25 Mg Tab) 50 mg PO TID PRN PRN Reason: Anxiety Stop: 09/21/24 18:36 Ampicillin Sodium 2,000 mg/ (Sodium Chloride) 100 mls @ 200 mls/hr IV Q6H [facility] Stop: 09/01/24 20:59 Last Infusion: 08/24/24 02:54 Dose: Infused Lactobacillus Acidophilus (Advanced Probiotic 625 Mg Capsule) 1,250 mg PO DAILY [facility] Stop: 09/22/24 08:59 Last Admin: 08/23/24 08:02 Dose: 1,250 mg Losartan Potassium (Losartan Potassium 25 Mg Tab) 25 mg PO QAM [facility] Stop: 09/22/24 08:59 Last Admin: 08/23/24 08:03 Dose: 25 mg Lurasidone HCl (Lurasidone Hcl 20 Mg Tab) 40 mg PO DAILYBD [facility] Stop: 09/21/24 20:59 Last Admin: 08/23/24 17:46 Dose: 40 mg Magnesium Citrate (Magnesium Citrate 296 Ml/Btl) 50 ml PO DAILY PRN PRN Reason: No BM w/in 48 hours Stop: 09/21/24 20:28 Magnesium Hydroxide (Magnesium Hydroxide Susp 30 Ml Udc) 30 ml PO Q12H PRN PRN Reason: Constipation Stop: 09/21/24 20:28 Multivitamins/Minerals (Cerovite Adv Formula Tab) 1 tab PO [facility] Stop: 09/22/24 08:59 Last Admin: 08/23/24 08:08 Dose: Not Given Ondansetron HCl (Ondansetron Inj 2 Mg/Ml 2 Ml Vial) 4 mg IV Q6H PRN PRN Reason: Nausea Stop: 09/21/24 20:28 Last Admin: 08/23/24 10:23 Dose: 4 mg Oxybutynin Chloride (Oxybutynin Chloride Xl 5 Mg Tabcr) [facility]: 09/22/24 08:59 Last Admin: 08/23/24 10:23 Dose: 5 mg Oxybutynin Chloride (Oxybutynin Chloride 5 Mg Tab) 5 mg PO Q8H PRN PRN Reason: bladder spasms Stop: 09/21/24 18:36 Last Admin: 08/23/24 00:58 Dose: 5 mg Oxycodone HCl (Oxycodone Hcl Ir 5 Mg Tab (Immediate Release)) 5 mg PO Q4H PRN PRN Reason: Severe Pain (Scale Score 7-10) Stop: 09/05/24 18:36 Last Admin: 08/24/24 06:24 Dose: 5 mg Pantoprazole Sodium (Pantoprazole 40 Mg Tab) 40 mg PO BID [facility] Stop: 09/21/24 20:59 Last Admin: 08/23/24 22:19 Dose: 40 mg Phenazopyridine HCl (Phenazopyridine Hcl 200 Mg Tab) 200 mg PO Q8H PRN PRN Reason: pain Stop: 09/21/24 18:36 Polyethylene Glycol (Polyethylene (Miralax) 17 Gm Pack) 17 gm PO DAILY [facility] Stop: 09/21/24 20:28 Last Admin: 08/23/24 08:04 Dose: Not Given Prazosin HCl (Prazosin Hcl 1 Mg Cap) 2 mg PO HS [facility] Stop: 09/21/24 20:59 Last Admin: 08/23/24 22:22 Dose: 2 mg Sodium Biphosphate/Sodium Phosphate (Sod Phosphate/Sod Biphosphate Enema 132 Ml Btl) 132 ml DC DAILY PRN PRN Reason: Constipation Stop: 09/21/24 20:28 Sucralfate (Sucralfate 1 Gm Tab) 1 gm PO QID [facility] Stop: 09/21/24 20:59 Last Admin: 08/23/24 22:20 Dose: Not Given Sumatriptan Succinate (Sumatriptan Succinate 25 Mg Tab) 25 mg PO BID PRN PRN Reason: Migraine Headache Stop: 09/22/24 13:01 Last Admin: 08/23/24 13:57 Dose: 25 mg Topiramate (Topiramate 50 Mg Tab) 50 mg PO BID [facility] Stop: 09/21/24 20:59 Last Admin: 08/23/24 22:20 Dose: 50 mg Trazodone HCl (Trazodone Hcl 100 Mg Tab) 100 mg PO HS [facility] Stop: 09/21/24 20:59 Last Admin: 08/23/24 22:19 Dose: 100 mg Vibegron (Vibegron 75 Mg Tab) 75 mg PO DAILY [facility] Stop: 09/22/24 08:59 Last Admin: 08/23/24 08:03 Dose: 75 mg Vitamin D (Cholecalciferol 25 Mcg (1000 Units) Tab) 25 mcg PO QAM [facility] Stop: 09/22/24 08:59 Last Admin: 08/23/24 08:03 Dose: 25 mcg (3) Hypertension Hypertension type: unspecified Qualified Code(s): I10 - Essential (primary) hypertension (5) Bipolar disorder Active/Remission status: remission status unspecified Qualified Code(s): F31.9 - Bipolar disorder, unspecified
[2024-08-24] MEDS: NYSTATIN POWDER 15GM BTL EXT SCH (12:14)
[2024-08-24] MEDS: PHENAZOPYRIDINE HCL 200 MG TAB PO PRN (13:53)
[2024-08-24] MEDS: guaiFENesin 600 MG TABCR PO SCH (13:53)
[2024-08-24] MEDS ORDERED: Nursing to Pharmacy Communication SCH (15:15)
[2024-08-24] MEDS ORDERED: LURASIDONE HCL 20 MG TAB PO SCH (15:30)
[2024-08-24] MEDS: LURASIDONE HCL 20 MG TAB PO SCH (17:03)
[2024-08-24] MEDS: POTASSIUM CHLORIDE CRTAB 20 MEQ TABCR PO STA (17:09)
[2024-08-24] MEDS ORDERED: guaiFENesin 600 MG TABCR PO SCH (21:00)
[2024-08-24] MEDS: diphenhydrAMINE 50 MG/ML VIAL IV STA (22:58)
[2024-08-24] MEDS: KETOROLAC TROMETHAMINE 15 MG/ML VIAL IV STA (22:59)
[2024-08-24] MEDS: ONDANSETRON INJ 2 MG/ML 2 ML VIAL IV STA (23:01)
[2024-08-25 06:40] LABS: Hematocrit (blood only) 34.2 % (37.0-47.0); Hemoglobin 10.8 g/dl (12.0-16.0); Mean Corpuscular Hemoglobin 26.5 pg (25.0-34.0); Mean Corpuscular Hgb Conc 31.6 g/dL (32.0-36.0); Mean Corpuscular Volume 83.8 fL (80.0-100.0); Mean Platelet Volume 9.9 fL (9.4-12.4); Platelet Count 242 K/uL (130-400); RDW Coefficient of Variation 24.2 % (11.5-14.5); RDW Standard Deviation 72.6 fL (36.4-46.3); Red Blood Count 4.08 M/uL (4.20-5.40); White Blood Count 6.05 K/ul (4.8-10.8)
[2024-08-25 07:22] LABS: Albumin Globulin Ratio 1.6 (0.9-2); Albumin Level 3.6 gm/dl (3.4-5.0); Bilirubin,Total 0.2 mg/dl (0.2-1.0); Calcium 8.8 mg/dl (8.6-10.3); Creatinine Clr Calc Pharmacy 107.7 ml/min; Globulin 2.3 gm/dl (2.5-4.0); Potassium 3.8 mmol/L (3.5-5.1); Total Protein 5.9 gm/dl (6.0-8.3)
[2024-08-25] MEDS: COUGH DROP (SUGAR FREE) LOZ 24 LOZ/1 BOX BUCCAL STA (17:30)
[2024-08-25] MEDS: MoRPHine SULFATE 2 MG/ML CARP IV STA (17:35)
[2024-08-25] MEDS: guaiFENesin 600 MG TABCR PO SCH (20:01)
[2024-08-26] MEDS: LINACLOTIDE 145 MCG CAPSULE PO SCH (07:23)
--- NOTE | 2024-08-26 08:24 | Hospitalist Progress Note ---
Date of Service August 25, 2024 (late entry) Assessment & Plan (1) Recurrent UTI: (2) Chronic suprapubic catheter: Plan: Gricel Mancini is a medically complex 38y/o F with extensive PMHx including spina bifida, spastic diplegic cerebral palsy with baseline restricted mobility, chronic indwelling suprapubic catheter due to neurogenic bladder, history of recurrent UTIs, bladder spasms, asthma, GERD without esophagitis, IBS with both constipation and diarrhea, vitamin D deficiency, morbid obesity, intestinal postoperative nonabsorption s/p gastric bypass in 2021, vitamin B12 deficiency, congenital hypoplasia of left femur, osteoarthritis of left hip, chronic pain syndrome, migraines, iron deficiency anemia, JOSE, PTSD, bipolar disorder and 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 Previously seen in the [facility] ED on 08/19/24 due to suprapubic abdominal pain and right flank pain. Extensive history of recurrent UTIs. UA at that time revealed 2+ leukocyte esterase, 11-20 WBC and 1+ bacteria; urine culture grew Enterococcus faecalis and she was discharged home on a course of Macrobid. She was made aware of the urine culture results above earlier today. Noticed minimal improvement in her suprapubic abdominal pain and right flank pain since last being seen in the ED therefore she was told to come back into the ED for further evaluation. Due for suprapubic catheter exchange on 08/27/24. She is requesting to have this changed sooner if possible. Appreciate urology consult - Suprapubic catheter was exchanged. Pt continues to have pain. UA with trace leukocyte esterase, 6-10 WBC and 2+ bacteria. CTAP grossly unremarkable with no identifiable acute process. Initial laboratory evaluation reviewed. No leukocytosis. Procalcitonin negative. Lactate negative. No evidence of sepsis on admission. S/p dose of IV ampicillin in ED. which is continued Ucultx positive foe E. faecalis Cont. IV ampicillin Follow blood cultures. ID consult given recurrent UTIs - cont. IV ampicillin, plan for 7 days. may not have po option Pt now reports vaginal pain Says she has hx of yeast infection , that is persistent, reports she was treated for this previously and mentioned this to ID doc on consult, however there is no mention of it in their note Discussed w RN - will obtain culture Will likely discuss w/ Clinical Geneticist tmrw (3) Hypertension: Plan: Normotensive on admission. Can continue home antihypertensive regimen. Routine BP monitoring. (4) Bladder spasms: Plan: Continue Myrbetriq, Ditropan XL, prazosin and tolterodine. Notes increased bladder spasms as of lately. Appreciate urology input in this regard. (5) Bipolar disorder: (6) JOSE (generalized anxiety disorder): (7) PTSD (post-traumatic stress disorder): Plan: Chronic, stable. Continue home psychiatric medication regimen. (8) Spastic diplegic cerebral palsy: Plan: Has rotating caretakers at home to assist her throughout the day with am bulation/ADLs. Will continue home baclofen and PRN cyclobenzaprine for muscle spasms. Mostly wheelchair bound at baseline but able to pivot with transfers. (9) Chronic pain syndrome: Plan: On PRN oxycodone therapy at home. She is requesting to continue this. Noted constipation on CTAP. Will start on routine bowel regimen. Suspect opioid- induced constipation. Other Chronic Medical Conditions: Asthma - Stable, no acute exacerbation. GERD/Migraine - Can continue home meds for these specific conditions. 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 Code Status: FULL CODE PCP: Sarah Saavedra PA-C Disposition: Admit to med/telemetry for further inpatient evaluation and manag ement. Admission and Anticipated Discharge Date Admission Date: August 22, 2024 Subjective Pt seen in follow up of recurrent UTIs, SPC, bladder spasms Currently lying in bed in NAD catheter was exchanged, says she still has pain now reports on and off severe vaginal pain - says she has hx of "yeast infection". Reports she mentioned this to ID doc on consults - but nothing is mentioned in ID note about that. Discussed w/ RN and will obtain culture. Will likely discuss w/ Clinical Geneticist tomorrow no chest pain, shortness of breath ID consulted - cont. IV abx for now Review of Systems Review of Systems: All systems reviewed & are unremarkable except as noted in Subjective Physical Exam Physical Exam: Gen: A&O 3 NAD HEENT: NCAT, EOMI Neck: Supple Lungs: No Respiratory distress.decreased breath sounds CV: RRR, no edema. Abdomen: suprapubic catheter site noted (catheter was already exchanged) Skin: warm, dry Neuro: chronic spasticity and weakness in bilateral LE, mild contractures in bilateral UE Psych: Appropriate for situation. Results & Data Results & Data Vital Signs (Past 12 Hours) Vital Signs Temp Pulse Resp BP Pulse Ox O2 Del Method 08/25/24 20:57 36.9 C 71 16 115/73 94 Room Air (3) Hypertension Hypertension type: unspecified Qualified Code(s): I10 - Essential (primary) hypertension (5) Bipolar disorder Active/Remission status: remission status unspecified Qualified Code(s): F31.9 - Bipolar disorder, unspecified
--- NOTE | 2024-08-26 08:46 | Hospitalist Progress Note ---
Date of Service August 26, 2024 Assessment & Plan (1) Recurrent UTI: (2) Chronic suprapubic catheter: Plan: Gricel Mancini is a medically complex 38y/o F with extensive PMHx including spina bifida, spastic diplegic cerebral palsy with baseline restricted mobility, chronic indwelling suprapubic catheter due to neurogenic bladder, history of recurrent UTIs, bladder spasms, asthma, GERD without esophagitis, IBS with both constipation and diarrhea, vitamin D deficiency, morbid obesity, intestinal postoperative nonabsorption s/p gastric bypass in 2021, vitamin B12 deficiency, congenital hypoplasia of left femur, osteoarthritis of left hip, chronic pain syndrome, migraines, iron deficiency anemia, JOSE, PTSD, bipolar disorder and 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 Previously seen in the [facility] ED on 08/19/24 due to suprapubic abdominal pain and right flank pain. Extensive history of recurrent UTIs. UA at that time revealed 2+ leukocyte esterase, 11-20 WBC and 1+ bacteria; urine culture grew Enterococcus faecalis and she was discharged home on a course of Macrobid. She was made aware of the urine culture results above earlier today. Noticed minimal improvement in her suprapubic abdominal pain and right flank pain since last being seen in the ED therefore she was told to come back into the ED for further evaluation. Due for suprapubic catheter exchange on 08/27/24. She is requesting to have this changed sooner if possible. Appreciate urology consult - Suprapubic catheter was exchanged. Pt continues to have pain. UA with trace leukocyte esterase, 6-10 WBC and 2+ bacteria. CTAP grossly unremarkable with no identifiable acute process. Initial laboratory evaluation reviewed. No leukocytosis. Procalcitonin negative. Lactate negative. No evidence of sepsis on admission. S/p dose of IV ampicillin in ED. which is continued Ucultx positive for E. faecalis Cont. IV ampicillin Follow blood cultures. ID consult given recurrent UTIs - cont. IV ampicillin, plan for 7 days. may not have po option Pt now reports vaginal pain Says she has hx of yeast infection , that is persistent Discussed w RN - obtained culture Will consult w/ Cup Trimming Machine Operator (3) Hypertension: Plan: Normotensive on admission. Can continue home antihypertensive regimen. Routine BP monitoring. (4) Bladder spasms: Plan: Continue Myrbetriq, Ditropan XL, prazosin and tolterodine. Notes increased bladder spasms as of lately. Appreciate urology input in this regard. (5) Bipolar disorder: (6) JOSE (generalized anxiety disorder): (7) PTSD (post-traumatic stress disorder): Plan: Chronic, stable. Continue home psychiatric medication regimen. (8) Spastic diplegic cerebral palsy: Plan: Has rotating caretakers at home to assist her throughout the day with ambulation/ADLs. Will continue home baclofen and PRN cyclobenzaprine for muscle spasms. Mostly wheelchair bound at baseline but able to pivot with transfers. (9) Chronic pain syndrome: Plan: On PRN oxycodone therapy at home. She is requesting to continue this. Noted constipation on CTAP. Will start on routine bowel regimen. Suspect opioid- induced constipation. Other Chronic Medical Conditions: Asthma - Stable, no acute exacerbation. GERD/Migraine - Can continue home meds for these specific conditions. DVT Prophylaxis: On Eliquis HUB CUTTER given history of DVT/PE - continue. Code Status: FULL CODE PCP: Sarah Saavedra PA-C Disposition: med/telemetry for further inpatient evaluation and management. Admission and Anticipated Discharge Date Admission Date: August 22, 2024 Subjective Pt seen in follow up of recurrent UTIs, SPC, bladder spasms Currently lying in bed in NAD catheter was exchanged, says she still has pain reports on and off severe vaginal pain - says she has hx of "yeast infection". Reports she mentioned this to ID doc on consults - but nothing is mentioned in ID note about that. Discussed w/ RN and obtained culture. Will also consult w/ Cup Trimming Machine Operator no chest pain, shortness of breath ID consulted - cont. IV abx for now Review of Systems Review of Systems: All systems reviewed & are unremarkable except as noted in Subjective Physical Exam Physical Exam: Gen: A&O 3 NAD HEENT: NCAT, EOMI Neck: Supple Lungs: No Respiratory distress.decreased breath sounds CV: RRR, no edema. Abdomen: suprapubic catheter site noted (catheter was already exchanged) Skin: warm, dry Neuro: chronic spasticity and weakness in bilateral LE, mild contractures in bilateral UE Psych: Appropriate for situation. Results & Data Results & Data Vital Signs (Past 12 Hours) Vital Signs Temp Pulse Resp BP Pulse Ox O2 Del Method 08/26/24 08:15 37.1 C 88 20 132/85 96 Room Air 08/25/24 20:57 36.9 C 71 16 115/73 94 Room Air Medications Administered Current Inpatient Medications Acetaminophen (Acetaminophen 325 Mg Tab) 650 mg PO Q4H PRN PRN Reason: Pain or Fever Stop: 09/21/24 20:28 Last Admin: 08/26/24 03:34 Dose: 650 mg Apixaban (Apixaban 5 Mg Tablet) 5 mg PO BID [facility] Stop: 09/21/24 20:59 Last Admin: 08/26/24 07:24 Dose: 5 mg Baclofen (Baclofen 20 Mg Tab) 20 mg PO TID [facility] Stop: 09/21/24 20:59 Last Admin: 08/26/24 07:26 Dose: 20 mg Bisacodyl (Bisacodyl 10 Mg Supp) 10 mg TN DAILY PRN PRN Reason: Constipation Stop: 09/21/24 20:28 Buspirone HCl (Buspirone 7.5 Mg Tab) 7.5 mg PO BID [facility] Stop: 09/21/24 20:59 Last Admin: 08/26/24 07:24 Dose: 7.5 mg Cetirizine HCl (Cetirizine Hcl 10 Mg Tablet) 10 mg PO QAM [facility] Stop: 09/22/24 08:59 Last Admin: 08/26/24 07:25 Dose: 10 mg Cyclobenzaprine HCl (Cyclobenzaprine Hcl 10 Mg Tab) 10 mg PO BID PRN PRN Reason: Muscle Spasm Stop: 09/21/24 18:36 Dicyclomine HCl (Dicyclomine Hcl 10 Mg Cap) 10 mg PO QID PRN PRN Reason: Indigestion/Abd pain Stop: 09/21/24 18:36 Docusate Sodium (Docusate Sodium 100 Mg Cap) 100 mg PO BID [facility] Stop: 09/21/24 20:59 Last Admin: 08/26/24 07:35 Dose: 100 mg Famotidine (Famotidine 20 Mg Tab) 20 mg PO DAILY PRN PRN Reason: Acid Reflux Stop: 09/21/24 18:36 Fluoxetine HCl (Fluoxetine Hcl 20 Mg Cap) 60 mg PO QAM [facility] Stop: 09/22/24 08:59 Last Admin: 08/26/24 07:25 Dose: 60 mg Fluticasone Propionate (Fluticasone Propionate Na Spr 16 Gm Btl) 2 sprays NA QAM [facility] Stop: 09/22/24 08:59 Last Admin: 08/26/24 07:27 Dose: 2 sprays Guaifenesin (Guaifenesin 600 Mg Tabcr) 600 mg PO Q12 [facility] Stop: 09/23/24 13:24 Last Admin: 08/26/24 07:23 Dose: 600 mg Guaifenesin (Guaifenesin 600 Mg Tabcr) 600 mg PO Q12 [facility] Stop: 09/24/24 20:59 Last Admin: 08/26/24 07:28 Dose: Not Given Heparin Sodium (Porcine) (Heparin 100 Unit/Ml 5ml Flush) 5 ml FLUSH PRN PRN PRN Reason: Flush Stop: 09/23/24 03:23 Last Admin: 08/25/24 09:14 Dose: 5 ml Hydroxyzine HCl (Hydroxyzine Hcl 25 Mg Tab) 50 mg PO TID PRN PRN Reason: Anxiety Stop: 09/21/24 18:36 Ampicillin Sodium 2,000 mg/ (Sodium Chloride) 100 mls @ 200 mls/hr IV Q6H [facility] Stop: 09/01/24 20:59 Last Infusion: 08/26/24 08:05 Dose: Infused Lactobacillus Acidophilus (Advanced Probiotic 625 Mg Capsule) 1,250 mg PO DAILY [facility] Stop: 09/22/24 08:59 Last Admin: 08/26/24 07:24 Dose: 1,250 mg Linaclotide (Linaclotide 145 Mcg Capsule) 145 mcg PO DAILY [facility] Stop: 09/25/24 08:59 Last Admin: 08/26/24 07:23 Dose: 145 mcg Losartan Potassium (Losartan Potassium 25 Mg Tab) 25 mg PO QAM [facility] Stop: 09/22/24 08:59 Last Admin: 08/26/24 07:26 Dose: 25 mg Lurasidone HCl (Lurasidone Hcl 20 Mg Tab) 40 mg PO Q24H [facility] Stop: 09/23/24 16:59 Last Admin: 08/25/24 17:40 Dose: 40 mg Magnesium Citrate (Magnesium Citrate 296 Ml/Btl) 50 ml PO DAILY PRN PRN Reason: No BM w/in 48 hours Stop: 09/21/24 20:28 Magnesium Hydroxide (Magnesium Hydroxide Susp 30 Ml Udc) 30 ml PO Q12H PRN PRN Reason: Constipation Stop: 09/21/24 20:28 Multivitamins/Minerals (Cerovite Adv Formula Tab) 1 tab PO QAM [facility] Stop: 09/22/24 08:59 Last Admin: 08/26/24 07:24 Dose: 1 tab Nystatin (Nystatin Powder 15gm Btl) 1 appln EXT BID [facility] Stop: 09/23/24 10:50 Last Admin: 08/26/24 07:26 Dose: 1 appln Ondansetron HCl (Ondansetron Inj 2 Mg/Ml 2 Ml Vial) 4 mg IV Q6H PRN PRN Reason: Nausea Stop: 09/21/24 20:28 Last Admin: 08/25/24 17:35 Dose: 4 mg Oxybutynin Chloride (Oxybutynin Chloride Xl 5 Mg Tabcr) 5 mg PO QAM [facility] Stop: 09/22/24 08:59 Last Admin: 08/26/24 07:26 Dose: 5 mg Oxybutynin Chloride (Oxybutynin Chloride 5 Mg Tab) 5 mg PO Q8H PRN PRN Reason: bladder spasms Stop: 09/21/24 18:36 Last Admin: 08/25/24 18:34 Dose: 5 mg Oxycodone HCl (Oxycodone Hcl Ir 5 Mg Tab (Immediate Release)) 5 mg PO Q4H PRN PRN Reason: Severe Pain (Scale Score 7-10) Stop: 09/05/24 18:36 Last Admin: 08/26/24 06:51 Dose: 5 mg Pantoprazole Sodium (Pantoprazole 40 Mg Tab) 40 mg PO BID [facility] Stop: 09/21/24 20:59 Last Admin: 08/26/24 07:25 Dose: 40 mg Phenazopyridine HCl (Phenazopyridine Hcl 200 Mg Tab) 200 mg PO Q8H PRN PRN Reason: pain Stop: 09/21/24 18:36 Last Admin: 08/25/24 02:30 Dose: 200 mg Polyethylene Glycol (Polyethylene (Miralax) 17 Gm Pack) 17 gm PO DAILY [facility] Stop: 09/21/24 20:28 Last Admin: 08/26/24 07:35 Dose: 17 gm Prazosin HCl (Prazosin Hcl 1 Mg Cap) 2 mg PO HS [facility] Stop: 09/21/24 20:59 Last Admin: 08/25/24 19:58 Dose: 2 mg Sodium Biphosphate/Sodium Phosphate (Sod Phosphate/Sod Biphosphate Enema 132 Ml Btl) 132 ml TN DAILY PRN PRN Reason: Constipation Stop: 09/21/24 20:28 Sucralfate (Sucralfate 1 Gm Tab) 1 gm PO QID [facility] Stop: 09/21/24 20:59 Last Admin: 08/26/24 07:28 Dose: Not Given Sumatriptan Succinate (Sumatriptan Succinate 25 Mg Tab) 25 mg PO BID PRN PRN Reason: Migraine Headache Stop: 09/22/24 13:01 Last Admin: 08/26/24 03:53 Dose: 25 mg Topiramate (Topiramate 50 Mg Tab) 50 mg PO BID [facility] Stop: 09/21/24 20:59 Last Admin: 08/26/24 07:23 Dose: 50 mg Trazodone HCl (Trazodone Hcl 100 Mg Tab) 100 mg PO HS [facility] Stop: 09/21/24 20:59 Last Admin: 08/26/24 00:51 Dose: Not Given Vibegron (Vibegron 75 Mg Tab) 75 mg PO DAILY [facility] Stop: 09/22/24 08:59 Last Admin: 08/26/24 07:24 Dose: 75 mg Vitamin D (Cholecalciferol 25 Mcg (1000 Units) Tab) 25 mcg PO QAM [facility] Stop: 09/22/24 08:59 Last Admin: 08/26/24 07:24 Dose: 25 mcg (3) Hypertension Hypertension type: unspecified Qualified Code(s): I10 - Essential (primary) hypertension (5) Bipolar disorder Active/Remission status: remission status unspecified Qualified Code(s): F31.9 - Bipolar disorder, unspecified
[2024-08-26] MEDS: diphenhydrAMINE 50 MG/ML VIAL IV ONE (10:55)
[2024-08-26] MEDS: PROCHLORPERAZINE 10 MG in SYRINGE 8 ML IV ONE (10:55)
--- NOTE | 2024-08-26 12:37 | OB/GYN Consultation ---
Date of Consultation August 26, 2024 Assessment & Plan (1) Chronic vaginitis: follow up in manager administrative services office when discharged for management of chronic vaginitis and vaginal pain History of Present Illness Reason for Consultation: vaginal pain yeast infection Requesting Physician: Hospitalist Attending Physician: Ramiro Arnett MD History of Present Illness 39 F P0000 s/p hysterectomy/bso with chronic UTI on IV antibiotics for supra- pubic catheter use for neurogenic bladder. Patient states has long standing vaginal pain and chronic yeast in vagina. Says Diflucan and other meds don't work. Has never been sexually active. Allergies Allergy/AdvReac Type Severity Reaction Status Date / Time aripiprazole [From Abilify] Allergy Severe "Couldn't Verified 08/19/24 17:06 breathe" aztreonam Allergy Severe Dyspnea Verified 08/19/24 17:06 Beta-Blockers Allergy Severe "Couldn't Verified 08/19/24 17:06 (Beta-Adrenergic Bloc breathe" Gadolinium-Containing Allergy Severe Swelling Verified 08/19/24 17:06 Contrast Medi of Lip/Tongue/Throat hydrocodone Allergy Severe Hives Verified 08/19/24 17:06 lithium Allergy Severe Unconscious, Verified 08/19/24 17:06 unresponsive meperidine Allergy Severe Respiratory Verified 08/19/24 17:06 distress propranolol Allergy Severe Anaphylaxis Verified 08/19/24 17:06 verapamil Allergy Severe "Cant Verified 08/19/24 17:06 breathe" fexofenadine Allergy Intermediate Hives Verified 08/19/24 17:06 linezolid Allergy Intermediate Dyspnea Verified 08/19/24 17:06 propoxyphene Allergy Intermediate Hives Verified 08/19/24 17:06 Sulfa (Sulfonamide Allergy Intermediate Dyspnea Verified 08/19/24 17:06 Antibiotics) ketorolac Allergy Mild Itchy Verified 08/19/24 17:06 latex Allergy Mild contact Verified 08/19/24 17:06 dermatitis neomycin Allergy Mild Itchy Verified 08/19/24 17:06 tetracycline Allergy Unknown Unknown Verified 08/19/24 17:06 Iodinated Contrast Media Allergy Itching Verified 08/19/24 17:06 Home Medications Medication Instructions Recorded Confirmed Type albuterol sulfate 90 mcg/actuation 2 puff inhalation QID PRN 04/13/18 08/22/24 History aerosol inhaler (Ventolin HFA) Shortness Of Breath cetirizine 10 mg tablet (Zyrtec) 10 mg PO QAM 04/13/18 08/22/24 History hydroxyzine HCl 50 mg tablet 50 mg PO TID PRN Anxiety 04/13/18 08/22/24 History polyethylene glycol 3350 17 17 g PO BID PRN Constipation 04/13/18 08/22/24 History gram/dose oral powder (Miralax) prochlorperazine maleate 10 mg 10 mg PO Q8H PRN Nausea 04/13/18 08/22/24 History tablet (Compazine) baclofen 20 mg tablet 20 mg PO TID 08/09/19 08/22/24 History cyclobenzaprine 10 mg tablet 10 mg PO BID PRN Muscle Spasm 03/29/20 08/22/24 His tory onabotulinumtoxinA 100 unit 200 unit IM Q90D 03/29/20 08/22/24 History solution for injection (Botox) acetaminophen 500 mg tablet 1,000 mg PO Q6H PRN Pain 09/11/20 08/22/24 History (Tylenol Extra Strength) apixaban 5 mg tablet (Eliquis) 5 mg PO BID 04/04/23 08/22/24 History lurasidone 40 mg tablet (Latuda) 40 mg PO PM 04/04/23 08/22/24 History famotidine 20 mg tablet 20 mg PO DAILY PRN Acid Reflux 09/29/23 08/22/24 History topiramate 50 mg tablet 50 mg PO BID 09/29/23 08/22/24 History cholecalciferol (vitamin D3) 25 25 mcg PO QAM 10/14/23 08/22/24 History mcg (1,000 unit) tablet (Vitamin D3) cyanocobalamin (vitamin B-12) 1,000 mcg IM Q3M 10/14/23 08/22/24 History 1,000 mcg/mL injection solution docusate sodium 100 mg capsule 200 mg PO DAILY PRN Constipation 10/14/23 08/22/24 History (Colace) losartan 25 mg tablet 25 mg PO QAM 11/24/23 08/22/24 History oxybutynin chloride 5 mg tablet 5 mg PO Q8H PRN bladder spasms #90 05/09/2406/06 Rx tabs buspirone 7.5 mg tablet 7.5 mg PO BID 06/17/24 08/22/24 History fluoxetine 60 mg tablet 60 mg PO QAM 06/17/24 08/22/24 History galcanezumab-gnlm 120 mg/mL 120 mg subcut MONTHLY 06/17/24 08/22/24 History subcutaneous syringe (Emgality) ondansetron HCl 4 mg tablet 4 mg PO Q8H PRN n/v 06/17/24 08/22/24 History sucralfate 1 gram tablet 1 g PO QID 06/17/24 08/22/24 History zolmitriptan 5 mg tablet 5 mg PO DIRECTED PRN Migraine 06/17/24 08/22/24 History Headache tolterodine 2 mg capsule,extended 2 mg PO QAM 06/20/24 08/22/24 History release 24 hr phenazopyridine 200 mg tablet 200 mg PO Q8H PRN pain #10 tabs 07/05/24 08/22/24 Rx (Pyridium) mirabegron 50 mg tablet,extended 50 mg PO QAM 08/05/24 08/22/24 History release 24 hr (Myrbetriq) multivitamin with minerals-folic 1 tab PO QAM 08/05/24 08/22/24 History acid 200 mcg chewable tablet (Multivitamin Gummies) omeprazole 20 mg capsule,delayed 20 mg PO BID 08/05/24 08/22/24 History release dicyclomine 10 mg capsule 10 mg PO QID PRN Indigestion/Abd 08/19/24 08/22/24 History pain fluticasone propionate 50 2 spray intranasal QAM 08/19/24 08/22/24 History mcg/actuation nasal spray,suspension loperamide 2 mg capsule 2 mg PO QID PRN Diarrhea 08/19/24 08/22/24 History nitrofurantoin 100 mg PO BID 7 days #14 caps 08/19/24 08/22/24 Rx monohydrate/macrocrystals 100 mg capsule (Macrobid) oxycodone 5 mg tablet 5 mg PO Q4H PRN Severe Pain (Scale 08/19/24 08/22/24 History Score 7-10) prazosin 1 mg capsule 2 mg PO HS 08/19/24 08/22/24 History trazodone 100 mg tablet 100 mg PO HS 08/19/24 08/22/24 History Patient History Medical History COPD (chronic obstructive pulmonary disease) Spina bifida per chart review Muscle spasticity Gastric ulcer following with [facility]; had EGD 06/04/24 and scheduled for f/u in 3months Anemia History of chest pain [facility] ED visit 06/17/24; acute cardiopulmonary cause r/o; pt anemic; told to f/u with PCP and Cardio Urinary retention Paralysis of both lower limbs 2/2 Cerebral palsy; pt states has limited sensation and strength in b/l legs; states that she can stand with 1 person assist to pivot to chair/toilet but cannot walk; uses WC Depression Anxiety disorder Morbid obesity Bladder spasms Hematuria Hx MRSA infection (2007) Urine 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) Approximately 02/2023 (urine) Hx of migraines History of pulmonary embolism (2019) Approximately 2019 post-op - no issues since Taking Eliquis History of deep vein thrombosis (2019) x2 Taking Eliquis Asthma GERD (gastroesophageal reflux disease) 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; uses walker; needs 1 person assist to stand and pivot Hypertension Neurogenic bladder Chronic suprapubic catheter in place Bipolar depression Frequent UTI frequent s/p suprapubic catheter placement; currently with UTI and on ampicillin Radicular low back pain Chronic back pain Insulin resistance States blood sugar will drop when NPO, requests earlier OR time for all procedures History of COVID-19 (06/2023) mild symptoms, resolved Degenerative disc disease Surgical History History of transurethral resection of bladder tumor (TURBT) (2022) Postoperative nausea +hx PONV Chronic suprapubic catheter mutliple changes in OR History of hysterectomy H/O gastric bypass History of cystoscopy multiple with suprapubic catheter exchange; most recent 01/2024: MAC without issue History of esophagogastroduodenoscopy (EGD) History of foot surgery R/L (+ hardware) History of colonoscopy most recent 12/29/23 History of laminectomy H/O shoulder surgery right S/P surgical manipulation of ankle joint H/O dilation and curettage Hx of eye surgery Hx of spinal fusion Hx of cholecystectomy Family History Father Alive and well Hypertension Mother Alive and well Hypertension Other No family history of adverse response to anesthesia Social History Smoking Status: Never smoker Second Hand Exposure: No; Do You Dip or Chew Tobacco: No; Hx Alcohol Use: No Hx Substance Use: No Preferred Language: Amharic Communication Ability: Effective Visual Impairment: No Limitations Roping Machine Tender Required: No Beliefs That Will Affect Care: None marital status: Single Current Living Situation: Alone Current Living Situation Comment: Has home health Other Information That Helps Us Care for You: No Feels Safe at Home: Yes Safety Concerns: Feels Safe At This Time Assistive Devices: Hospital Bed, Mechanical Lift, Walker and Wheelchair Review of Systems Review of Systems: All systems reviewed & are unremarkable except as noted in HPI & below Physical Exam Constitutional: WD/WN, vitals as above Eyes: PERRL, conjunctivae normal, anicteric sclerae Respiratory: normal respiratory effort, lungs clear to auscultation Cardiovascular: RRR, no murmur, no edema Gastrointestinal (Abdomen): Inspection/Auscultation: abdomen normal to inspection supra-pubic catheter site examined and found to be without redness or induration . no pain at site. Musculoskeletal: Extremities: extremities normal to inspection Skin: no rashes, warm and dry Psychiatric: A+Ox3, euthymic affect Results & Data Vital Signs (Past 12 Hours) Vital Signs Temp Pulse Resp BP Pulse Ox O2 Del Method 08/26/24 11:06 Room Air 08/26/24 08:15 37.1 C 88 20 132/85 96 Room Air Laboratory Results Laboratory Results - last 48 hr 08/25/24 06:11 WBC 6.05 RBC 4.08 L Hgb 10.8 L Hct 34.2 L MCV 83.8 MCH 26.5 MCHC 31.6 L RDW Std Deviation 72.6 H RDW Coeff of Jerald 24.2 H Plt Count 242 MPV 9.9 Sodium 140 Potassium 3.8 Chloride 111 H Carbon Dioxide 24 Anion Gap 5 BUN 13 Creatinine 0.62 Est Cr Clr Drug Dosing 107.7 eGFR 116.82 BUN/Creatinine Ratio 21.0 H Glucose 80 Calcium 8.8 Phosphorus 3.0 Magnesium 2.0 Total Bilirubin 0.2 AST 11 L ALT 10 Alkaline Phosphatase 58 Total Protein 5.9 L Albumin 3.6 Globulin 2.3 L Albumin/Globulin Ratio 1.6
[2024-08-26] MEDS ORDERED: NYSTATIN/TRIAMCIN CR 15 GM TUBE EXT PRN (13:06)
[2024-08-26] MEDS: CYCLOBENZAPRINE HCL 10 MG TAB PO PRN (19:52)
[2024-08-27 07:34] LABS: Hematocrit (blood only) 35.5 % (37.0-47.0); Hemoglobin 11.2 g/dl (12.0-16.0); Mean Corpuscular Hemoglobin 26.5 pg (25.0-34.0); Mean Corpuscular Hgb Conc 31.5 g/dL (32.0-36.0); Mean Corpuscular Volume 83.9 fL (80.0-100.0); Platelet Count 254 K/uL (130-400); Red Blood Count 4.23 M/uL (4.20-5.40); White Blood Count 7.14 K/ul (4.8-10.8)
[2024-08-27 08:28] LABS: BUN Creatinine Ratio 18.3 (10-20); Creatinine Clr Calc Pharmacy 111.3 ml/min; Magnesium 1.9 mg/dl (1.7-2.4); Phosphorus 3.5 mg/dl (2.5-4.9); Potassium 3.8 mmol/L (3.5-5.1)
--- NOTE | 2024-08-27 10:43 | Hospitalist Progress Note ---
Date of Service August 27, 2024 Assessment & Plan (1) Recurrent UTI: (2) Chronic suprapubic catheter: Plan: Gricel Mancini is a medically complex 38y/o F with extensive PMHx including spina bifida, spastic diplegic cerebral palsy with baseline restricted mobility, chronic indwelling suprapubic catheter due to neurogenic bladder, history of recurrent UTIs, bladder spasms, asthma, GERD without esophagitis, IBS with both constipation and diarrhea, vitamin D deficiency, morbid obesity, intestinal postoperative nonabsorption s/p gastric bypass in 2021, vitamin B12 deficiency, congenital hypoplasia of left femur, osteoarthritis of left hip, chronic pain syndrome, migraines, iron deficiency anemia, JOSE, PTSD, bipolar disorder and 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 Previously seen in the [facility] ED on 08/19/24 due to suprapubic abdominal pain and right flank pain. Extensive history of recurrent UTIs. UA at that time revealed 2+ leukocyte esterase, 11-20 WBC and 1+ bacteria; urine culture grew Enterococcus faecalis and she was discharged home on a course of Macrobid. She was made aware of the urine culture results above earlier today. Noticed minimal improvement in her suprapubic abdominal pain and right flank pain since last being seen in the ED therefore she was told to come back into the ED for further evaluation. Due for suprapubic catheter exchange on 08/27/24. She is requesting to have this changed sooner if possible. Appreciate urology consult - Suprapubic catheter was exchanged. Pt continues to have pain. UA with trace leukocyte esterase, 6-10 WBC and 2+ bacteria. CTAP grossly unremarkable with no identifiable acute process. Initial laboratory evaluation reviewed. No leukocytosis. Procalcitonin negative. Lactate negative. No evidence of sepsis on admission. S/p dose of IV ampicillin in ED. which is continued Ucultx positive for E. faecalis Cont. IV ampicillin Follow blood cultures. blood cultx negat. for 48 hrs ID consult given recurrent UTIs - cont. IV ampicillin, plan for 7 days. may not have po option Pt now reports vaginal pain Says she has hx of yeast infection , that is persistent Discussed w RN - obtained culture [employer] consulted - follow up in corporate receptionist office when discharged for management of chronic vaginitis and vaginal pain (3) Hypertension: Plan: Normotensive on admission. Can continue home antihypertensive regimen. Routine BP monitoring. (4) Bladder spasms: Plan: Continue Myrbetriq, Ditropan XL, prazosin and tolterodine. Notes increased bladder spasms as of lately. Appreciate urology input in this regard. (5) Bipolar disorder: (6) JOSE (generalized anxiety disorder): (7) PTSD (post-traumatic stress disorder): Plan: Chronic, stable. Continue home psychiatric medication regimen. (8) Spastic diplegic cerebral palsy: Plan: Has rotating caretakers at home to assist her throughout the day with ambulation/ADLs. Will continue home baclofen and PRN cyclobenzaprine for muscle spasms. Mostly wheelchair bound at baseline but able to pivot with transfers. (9) Chronic pain syndrome: Plan: On PRN oxycodone therapy at home. She is requesting to continue this. Noted constipation on CTAP. Will start on routine bowel regimen. Suspect opioid-induced constipation. Other Chronic Medical Conditions: Asthma - Stable, no acute exacerbation. GERD/Migraine - Can continue home meds for these specific conditions. 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 Code Status: FULL CODE PCP: Sarah Saavedra PA-C Disposition: med/telemetry for further inpatient evaluation and management. Admission and Anticipated Discharge Date Admission Date: August 22, 2024 Subjective Pt seen in follow up of recurrent UTIs, SPC, bladder spasms Currently lying in bed in NAD, but reports having a migraine and asking for 'migraine cocktail" catheter was exchanged, says she still has pain reports on and off severe vaginal pain - reports hx of "yeast infection". culture obtained and [employer] consulted -> recommend outpt corporate receptionist follow up for vaginitis/pain no chest pain, shortness of breath ID consulted - cont. IV abx for now Review of Systems Review of Systems: All systems reviewed & are unremarkable except as noted in Subjective Physical Exam Physical Exam: Gen: A&O 3 NAD HEENT: NCAT, EOMI Neck: Supple Lungs: No Respiratory distress.decreased breath sounds CV: RRR, no edema. Abdomen: suprapubic catheter site noted (catheter was already exchanged) Skin: warm, dry Neuro: chronic spasticity and weakness in bilateral LE, mild contractures in bilateral UE Psych: Appropriate for situation. Results & Data Results & Data Vital Signs (Past 12 Hours) Vital Signs Temp Pulse Resp BP Pulse Ox O2 Del Method 08/27/24 07:16 36.4 C L 58 L 18 125/73 98 Room Air Laboratory Results 08/27/24 Range/Units 07:09 WBC 7.14 (4.8-10.8) K/ul RBC 4.23 (4.20-5.40) M/uL Hgb 11.2 L (12.0-16.0) g/dl Hct 35.5 L (37.0-47.0) % MCV 83.9 (80.0-100.0) fL MCH 26.5 (25.0-34.0) pg MCHC 31.5 L (32.0-36.0) g/dL Plt Count 254 (130-400) K/uL MPV 10.0 (9.4-12.4) fL Sodium 139 (136-145) mmol/L Potassium 3.8 (3.5-5.1) mmol/L Chloride 109 H (98-107) mmol/L Carbon Dioxide 24 (21-32) mmol/L Anion Gap 6 (3-11) BUN 11 (6-23) mg/dl Creatinine 0.60 (0.6-1.2) mg/dl Est Cr Clr Drug Dosing 111.3 ml/min eGFR 117.75 BUN/Creatinine Ratio 18.3 (10-20) Glucose 83 (70-99(Fasting)) mg/dl Calcium 9.0 (8.6-10.3) mg/dl Phosphorus 3.5 (2.5-4.9) mg/dl Magnesium 1.9 (1.7-2.4) mg/dl Medications Administered Current Inpatient Medications Acetaminophen (Acetaminophen 325 Mg Tab) 650 mg PO Q4H PRN PRN Reason: Pain or Fever Stop: 09/21/24 20:28 Last Admin: 08/27/24 07:42 Dose: 650 mg Apixaban (Apixaban 5 Mg Tablet) 5 mg PO BID [facility] Stop: 09/21/24 20:59 Last Admin: 08/27/24 08:36 Dose: 5 mg Baclofen (Baclofen 20 Mg Tab) 20 mg PO TID [facility] Stop: 09/21/24 20:59 Last Admin: 08/27/24 08:35 Dose: 20 mg Bisacodyl (Bisacodyl 10 Mg Supp) 10 mg AR DAILY PRN PRN Reason: Constipation Stop: 09/21/24 20:28 Buspirone HCl (Buspirone 7.5 Mg Tab) 7.5 mg PO BID [facility] Stop: 09/21/24 20:59 Last Admin: 08/27/24 09:54 Dose: 7.5 mg Cetirizine HCl (Cetirizine Hcl 10 Mg Tablet) 10 mg PO QAM [facility] Stop: 09/22/24 08:59 Last Admin: 08/27/24 08:36 Dose: 10 mg Cyclobenzaprine HCl (Cyclobenzaprine Hcl 10 Mg Tab) 10 mg PO BID PRN PRN Reason: Muscle Spasm Stop: 09/21/24 18:36 Last Admin: 08/26/24 19:52 Dose: 10 mg Dicyclomine HCl (Dicyclomine Hcl 10 Mg Cap) 10 mg PO QID PRN PRN Reason: Indigestion/Abd pain Stop: 09/21/24 18:36 Docusate Sodium (Docusate Sodium 100 Mg Cap) 100 mg PO BID [facility] Stop: 09/21/24 20:59 Last Admin: 08/27/24 07:43 Dose: Not Given Famotidine (Famotidine 20 Mg Tab) 20 mg PO DAILY PRN PRN Reason: Acid Reflux Stop: 09/21/24 18:36 Fluoxetine HCl (Fluoxetine Hcl 20 Mg Cap) [facility] Stop: 09/22/24 08:59 Last Admin: 08/27/24 08:35 Dose: 60 mg Fluticasone Propionate (Fluticasone Propionate Na Spr 16 Gm Btl) 2 sprays NA QAM [facility] Stop: 09/22/24 08:59 Last Admin: 08/27/24 08:33 Dose: 2 sprays Guaifenesin (Guaifenesin 600 Mg Tabcr) 600 mg PO Q12 [facility] Stop: 09/23/24 13:24 Last Admin: 08/27/24 08:33 Dose: 600 mg Guaifenesin (Guaifenesin 600 Mg Tabcr) 600 mg PO Q12 [facility] Stop: 09/24/24 20:59 Last Admin: 08/27/24 08:34 Dose: Not Given Heparin Sodium (Porcine) (Heparin 100 Unit/Ml 5ml Flush) 5 ml FLUSH PRN PRN PRN Reason: Flush Stop: 09/23/24 03:23 Last Admin: 08/27/24 10:39 Dose: 5 ml Hydroxyzine HCl (Hydroxyzine Hcl 25 Mg Tab) 50 mg PO TID PRN PRN Reason: Anxiety Stop: 09/21/24 18:36 Ampicillin Sodium 2,000 mg/ (Sodium Chloride) 100 mls @ 200 mls/hr IV Q6H [facility] Stop: 09/01/24 20:59 Last Infusion: 08/27/24 10:38 Dose: Infused Magnesium Sulfate/Dextrose (Magnesium Sulfate / D5w) 1 gm in 100 mls @ 50 mls/hr IV ONE ONE Stop: 08/27/24 12:40 Ketorolac Tromethamine (Ketorolac Tromethamine 15 Mg/Ml Vial) 15 mg IV NOW ONE Stop: 08/27/24 10:41 Lactobacillus Acidophilus (Advanced Probiotic 625 Mg Capsule) 1,250 mg PO DAILY [facility] Stop: 09/22/24 08:59 Last Admin: 08/27/24 09:53 Dose: 1,250 mg Linaclotide (Linaclotide 145 Mcg Capsule) 145 mcg PO DAILY [facility] Stop: 09/25/24 08:59 Last Admin: 08/27/24 07:43 Dose: Not Given Losartan Potassium (Losartan Potassium 25 Mg Tab) 25 mg PO QAM [facility] Stop: 09/22/24 08:59 Last Admin: 08/27/24 08:36 Dose: 25 mg Lurasidone HCl (Lurasidone Hcl 20 Mg Tab) 40 mg PO Q24H [facility] Stop: 09/23/24 16:59 Last Admin: 08/26/24 16:33 Dose: 40 mg Magnesium Citrate (Magnesium Citrate 296 Ml/Btl) 50 ml PO DAILY PRN PRN Reason: No BM w/in 48 hours Stop: 09/21/24 20:28 Magnesium Hydroxide (Magnesium Hydroxide Susp 30 Ml Udc) 30 ml PO Q12H PRN PRN Reason: Constipation Stop: 09/21/24 20:28 Multivitamins/Minerals (Cerovite Adv Formula Tab) 1 tab PO QAM [facility] Stop: 09/22/24 08:59 Last Admin: 08/27/24 07:44 Dose: Not Given Nystatin (Nystatin Powder 15gm Btl) 1 appln EXT BID [facility] Stop: 09/23/24 10:50 Last Admin: 08/27/24 08:33 Dose: 1 appln Nystatin/Triamcinolone Acetonide (Nystatin/Triamcin Cr 15 Gm Tube) 1 appln EXT BID PRN PRN Reason: Itching Stop: 09/25/24 13:05 Ondansetron HCl (Ondansetron Inj 2 Mg/Ml 2 Ml Vial) 4 mg IV Q6H PRN PRN Reason: Nausea Stop: 09/21/24 20:28 Last Admin: 08/25/24 17:35 Dose: 4 mg Oxybutynin Chloride (Oxybutynin Chloride Xl 5 Mg Tabcr) 5 mg PO QAM [facility] Stop: 09/22/24 08:59 Last Admin: 08/27/24 08:34 Dose: 5 mg Oxybutynin Chloride (Oxybutynin Chloride 5 Mg Tab) 5 mg PO Q8H PRN PRN Reason: bladder spasms Stop: 09/21/24 18:36 Last Admin: 08/25/24 18:34 Dose: 5 mg Oxycodone HCl (Oxycodone Hcl Ir 5 Mg Tab (Immediate Release)) 5 mg PO Q4H PRN PRN Reason: Severe Pain (Scale Score 7-10) Stop: 09/05/24 18:36 Last Admin: 08/27/24 10:19 Dose: 5 mg Pantoprazole Sodium (Pantoprazole 40 Mg Tab) 40 mg PO BID [facility] Stop: 09/21/24 20:59 Last Admin: 08/27/24 08:36 Dose: 40 mg Phenazopyridine HCl (Phenazopyridine Hcl 200 Mg Tab) 200 mg PO Q8H PRN PRN Reason: pain Stop: 09/21/24 18:36 Last Admin: 08/25/24 02:30 Dose: 200 mg Polyethylene Glycol (Polyethylene (Miralax) 17 Gm Pack) 17 gm PO DAILY [facility] Stop: 09/21/24 20:28 Last Admin: 08/27/24 07:44 Dose: Not Given Prazosin HCl (Prazosin Hcl 1 Mg Cap) 2 mg PO HS [facility] Stop: 09/21/24 20:59 Last Admin: 08/26/24 20:24 Dose: 2 mg Sodium Biphosphate/Sodium Phosphate (Sod Phosphate/Sod Biphosphate Enema 132 Ml Btl) 132 ml AR DAILY PRN PRN Reason: Constipation Stop: 09/21/24 20:28 Sucralfate (Sucralfate 1 Gm Tab) 1 gm PO QID [facility] Stop: 09/21/24 20:59 Last Admin: 08/27/24 07:44 Dose: Not Given Sumatriptan Succinate (Sumatriptan Succinate 25 Mg Tab) 25 mg PO BID PRN PRN Reason: Migraine Headache Stop: 09/22/24 13:01 Last Admin: 08/27/24 10:20 Dose: 25 mg Topiramate (Topiramate 50 Mg Tab) 50 mg PO BID [facility] Stop: 09/21/24 20:59 Last Admin: 08/27/24 08:37 Dose: 50 mg Trazodone HCl (Trazodone Hcl 100 Mg Tab) 100 mg PO HS [facility] Stop: 09/21/24 20:59 Last Admin: 08/26/24 20:26 Dose: 100 mg Vibegron (Vibegron 75 Mg Tab) 75 mg PO DAILY [facility] Stop: 09/22/24 08:59 Last Admin: 08/27/24 08:34 Dose: 75 mg Vitamin D (Cholecalciferol 25 Mcg (1000 Units) Tab) 25 mcg PO QAM [facility] Stop: 09/22/24 08:59 Last Admin: 08/27/24 08:34 Dose: 25 mcg (3) Hypertension Hypertension type: unspecified Qualified Code(s): I10 - Essential (primary) hypertension (5) Bipolar disorder Active/Remission status: remission status unspecified Qualified Code(s): F31.9 - Bipolar disorder, unspecified
[2024-08-27] MEDS: MAGNESIUM SULFATE / D5W 1 GM/100 ML BAG IV ONE (11:09)
[2024-08-27] MEDS: diphenhydrAMINE 50 MG/ML VIAL IV STA ×2 (11:09→18:04)
[2024-08-27] MEDS: KETOROLAC TROMETHAMINE 15 MG/ML VIAL IV ONE (11:09)
[2024-08-27] MEDS: ALBUT/IPRATROP 3MG/0.5MG NEB 3 ML VIAL NEB PRN (15:50)
[2024-08-27] MEDS: PROCHLORPERAZINE 10 MG in SYRINGE 8 ML IV ONE (18:04)
[2024-08-27] MEDS: hydrOXYzine HCl 25 MG TAB PO PRN (22:27)
[2024-08-28] MEDS: FAMOTIDINE 20 MG TAB PO PRN (00:36)
[2024-08-28] MEDS: CALCIUM CARBONATE 500 MG CHEWABLE TAB PO PRN (02:47)
[2024-08-28] MEDS ORDERED: PROCHLORPERAZINE IV ONE (09:55)
[2024-08-28] MEDS: PROCHLORPERAZINE 10 MG in SYRINGE 8 ML IV ONE ×2 (10:33→15:14)
[2024-08-28] MEDS: diphenhydrAMINE 50 MG/ML VIAL IV ONE (10:33)
[2024-08-28] MEDS: GALCANEZUMAB GNLM 120 MG/ML SQ SCH (14:17)
--- NOTE | 2024-08-28 14:37 | Hospitalist Progress Note ---
Date of Service August 28, 2024 Assessment & Plan (1) Recurrent UTI: (2) Chronic suprapubic catheter: Plan: Gricel Mancini is a medically complex 38y/o F with extensive PMHx including spina bifida, spastic diplegic cerebral palsy with baseline restricted mobility, chronic indwelling suprapubic catheter due to neurogenic bladder, history of recurrent UTIs, bladder spasms, asthma, GERD without esophagitis, IBS with both constipation and diarrhea, vitamin D deficiency, morbid obesity, intestinal postoperative nonabsorption s/p gastric bypass in 2021, vitamin B12 deficiency, congenital hypoplasia of left femur, osteoarthritis of left hip, chronic pain syndrome, migraines, iron deficiency anemia, JOSE, PTSD, bipolar disorder and 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 Previously seen in the [facility] ED on 08/19/24 due to suprapubic abdominal pain and right flank pain. Extensive history of recurrent UTIs. UA at that time revealed 2+ leukocyte esterase, 11-20 WBC and 1+ bacteria; urine culture grew Enterococcus faecalis and she was discharged home on a course of Macrobid. She was made aware of the urine culture results above earlier today. Noticed minimal improvement in her suprapubic abdominal pain and right flank pain since last being seen in the ED therefore she was told to come back into the ED for further evaluation. Due for suprapubic catheter exchange on 08/27/24. She is requesting to have this changed sooner if possible. Appreciate urology consult - Suprapubic catheter was exchanged. Pt continued to have pain. Now seems improved. UA with trace leukocyte esterase, 6-10 WBC and 2+ bacteria. CTAP grossly unremarkable with no identifiable acute process. Initial laboratory evaluation reviewed. No leukocytosis. Procalcitonin negative. Lactate negative. No evidence of sepsis on admission. S/p dose of IV ampicillin in ED. which is continued Ucultx positive for E. faecalis Cont. IV ampicillin Follow blood cultures. blood cultx negat. for 48 hrs ID consult given recurrent UTIs - cont. IV ampicillin, plan for 7 days. 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 Can continue home antihypertensive regimen. Routine BP monitoring. (4) Bladder spasms: Plan: Continue Myrbetriq, Ditropan XL, prazosin and tolterodine. Notes increased bladder spasms as of lately. Appreciate urology input in this regard. (5) Bipolar disorder: (6) JOSE (generalized anxiety disorder): (7) PTSD (post-traumatic stress disorder): Plan: Chronic, stable. Continue home psychiatric medication regimen. (8) Spastic diplegic cerebral palsy: Plan: Has rotating caretakers at home to assist her throughout the day with ambulation/ADLs. Will continue home baclofen and PRN cyclobenzaprine for muscle spasms. Mostly wheelchair bound at baseline but able to pivot with transfers. (9) Chronic pain syndrome: Plan: On PRN oxycodone therapy at home. She is requesting to continue this. Noted constipation on CTAP. Will start on routine bowel regimen. Suspect opioid- induced constipation. Other Chronic Medical Conditions: Asthma - Stable, no acute exacerbation. GERD/Migraine - Can continue home meds for these specific conditions. 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 Code Status: FULL CODE PCP: Sarah Saavedra PA-C Disposition: med/telemetry for further inpatient evaluation and management. Admission and Anticipated Discharge Date Admission Date: August 22, 2024 Subjective Pt seen in follow up of recurrent UTIs, SPC, bladder spasms Currently lying in bed in NAD, reports recurring migraine, nasal congestion catheter was exchanged no chest pain, shortness of breath ID consulted - cont. IV abx Review of Systems Review of Systems: All systems reviewed & are unremarkable except as noted in Subjective Physical Exam Physical Exam: Gen: A&O 3 NAD HEENT: NCAT, EOMI Neck: Supple Lungs: No Respiratory distress.decreased breath sounds CV: RRR, no edema. Abdomen: suprapubic catheter site noted (catheter was already exchanged) Skin: warm, dry Neuro: chronic spasticity and weakness in bilateral LE, mild contractures in bilateral UE Psych: Appropriate for situation. Results & Data Results & Data Vital Signs (Past 12 Hours) Vital Signs Temp Pulse Resp BP Pulse Ox O2 Del Method 08/28/24 07:32 71 18 98 Room Air 08/28/24 07:02 36.6 C 71 16 130/75 98 Room Air Medications Administered Current Inpatient Medications Acetaminophen (Acetaminophen 325 Mg Tab) 650 mg PO Q4H PRN PRN Reason: Pain or Fever Stop: 09/21/24 20:28 Last Admin: 08/28/24 13:31 Dose: 650 mg Albuterol (Albut/Ipratrop 3mg/0.5mg Neb 3 Ml Vial) 3 ml NEB Q6R PRN; Protocol PRN Reason: Wheezing Stop: 09/26/24 15:16 Last Admin: 08/28/24 07:32 Dose: 3 ml Apixaban (Apixaban 5 Mg Tablet) 5 mg PO BID [facility] Stop: 09/21/24 20:59 Last Admin: 08/28/24 08:58 Dose: 5 mg Baclofen (Baclofen 20 Mg Tab) 20 mg PO TID [facility] Stop: 09/21/24 20:59 Last Admin: 08/28/24 14:16 Dose: 20 mg Bisacodyl (Bisacodyl 10 Mg Supp) 10 mg CA DAILY PRN PRN Reason: Constipation Stop: 09/21/24 20:28 Buspirone HCl (Buspirone 7.5 Mg Tab) 7.5 mg PO BID [facility] Stop: 09/21/24 20:59 Last Admin: 08/28/24 09:01 Dose: 7.5 mg Calcium Carbonate (Calcium Carbonate 500 Mg Chewable Tab) 500 mg PO BID PRN PRN Reason: Heartburn Stop: 09/27/24 02:33 Last Admin: 08/28/24 02:47 Dose: 500 mg Cetirizine HCl (Cetirizine Hcl 10 Mg Tablet) 10 mg PO QAM [facility] Stop: 09/22/24 08:59 Last Admin: 08/28/24 08:56 Dose: 10 mg Cyclobenzaprine HCl (Cyclobenzaprine Hcl 10 Mg Tab) 10 mg PO BID PRN PRN Reason: Muscle Spasm Stop: 09/21/24 18:36 Last Admin: 08/26/24 19:52 Dose: 10 mg Dicyclomine HCl (Dicyclomine Hcl 10 Mg Cap) 10 mg PO QID PRN PRN Reason: Indigestion/Abd pain Stop: 09/21/24 18:36 Docusate Sodium (Docusate Sodium 100 Mg Cap) 100 mg PO BID [facility] Stop: 09/21/24 20:59 Last Admin: 08/28/24 08:53 Dose: 100 mg Famotidine (Famotidine 20 Mg Tab) 20 mg PO DAILY PRN PRN Reason: Acid Reflux Stop: 09/21/24 18:36 Last Admin: 08/28/24 00:36 Dose: 20 mg Fluoxetine HCl (Fluoxetine Hcl 20 Mg Cap) 60 mg PO QAM [facility] Stop: 09/22/24 08:59 Last Admin: 08/28/24 08:56 Dose: 60 mg Fluticasone Propionate (Fluticasone Propionate Na Spr 16 Gm Btl) 2 sprays NA QAM [facility] Stop: 09/22/24 08:59 Last Admin: 08/28/24 09:02 Dose: 2 sprays Galcanezumab-gnlm (Galcanezumab-Gnlm 120 Mg/Ml Syringe) 120 mg SQ TODAY@1400 [facility] Stop: 09/27/24 13:59 Last Admin: 08/28/24 14:17 Dose: 120 mg Guaifenesin (Guaifenesin 600 Mg Tabcr) 600 mg PO Q12 [facility] Stop: 09/23/24 13:24 Last Admin: 08/28/24 08:57 Dose: 600 mg Guaifenesin (Guaifenesin 600 Mg Tabcr) 600 mg PO Q12 [facility] Stop: 09/24/24 20:59 Last Admin: 08/28/24 09:00 Dose: Not Given Heparin Sodium (Porcine) (Heparin 100 Unit/Ml 5ml Flush) 5 ml FLUSH PRN PRN PRN Reason: Flush Stop: 09/23/24 03:23 Last Admin: 08/28/24 10:36 Dose: 5 ml Hydroxyzine HCl (Hydroxyzine Hcl 25 Mg Tab) 50 mg PO TID PRN PRN Reason: Anxiety Stop: 09/21/24 18:36 Last Admin: 08/27/24 22:27 Dose: 50 mg Ampicillin Sodium 2,000 mg/ (Sodium Chloride) 100 mls @ 200 mls/hr IV Q6H [facility] Stop: 09/01/24 20:59 Last Infusion: 08/28/24 10:20 Dose: Infused Lactobacillus Acidophilus (Advanced Probiotic 625 Mg Capsule) 1,250 mg PO DAILY [facility] Stop: 09/22/24 08:59 Last Admin: 08/28/24 08:48 Dose: Not Given Linaclotide (Linaclotide 145 Mcg Capsule) 145 mcg PO DAILY [facility] Stop: 09/25/24 08:59 Last Admin: 08/28/24 08:59 Dose: Not Given Losartan Potassium (Losartan Potassium 25 Mg Tab) 25 mg PO QAM [facility] Stop: 09/22/24 08:59 Last Admin: 08/28/24 09:02 Dose: 25 mg Lurasidone HCl (Lurasidone Hcl 20 Mg Tab) 40 mg PO Q24H [facility] Stop: 09/23/24 16:59 Last Admin: 08/27/24 16:51 Dose: 40 mg Magnesium Citrate (Magnesium Citrate 296 Ml/Btl) 50 ml PO DAILY PRN PRN Reason: No BM w/in 48 hours Stop: 09/21/24 20:28 Magnesium Hydroxide (Magnesium Hydroxide Susp 30 Ml Udc) 30 ml PO Q12H PRN PRN Reason: Constipation Stop: 09/21/24 20:28 Multivitamins/Minerals (Cerovite Adv Formula Tab) [facility] [place] Stop: 09/22/24 08:59 Last Admin: 08/28/24 08:48 Dose: Not Given Nystatin (Nystatin Powder 15gm Btl) 1 appln EXT BID [facility] Stop: 09/23/24 10:50 Last Admin: 08/28/24 08:58 Dose: 1 appln Nystatin/Triamcinolone Acetonide (Nystatin/Triamcin Cr 15 Gm Tube) 1 appln EXT BID PRN PRN Reason: Itching Stop: 09/25/24 13:05 Ondansetron HCl (Ondansetron Inj 2 Mg/Ml 2 Ml Vial) 4 mg IV Q6H PRN PRN Reason: Nausea Stop: 09/21/24 20:28 Last Admin: 08/25/24 17:35 Dose: 4 mg Oxybutynin Chloride (Oxybutynin Chloride Xl 5 Mg Tabcr) [facility] [place] Stop: 09/22/24 08:59 Last Admin: 08/28/24 08:58 Dose: 5 mg Oxybutynin Chloride (Oxybutynin Chloride 5 Mg Tab) 5 mg PO Q8H PRN PRN Reason: bladder spasms Stop: 09/21/24 18:36 Last Admin: 08/25/24 18:34 Dose: 5 mg Oxycodone HCl (Oxycodone Hcl Ir 5 Mg Tab (Immediate Release)) 5 mg PO Q4H PRN PRN Reason: Severe Pain (Scale Score 7-10) Stop: 09/05/24 18:36 Last Admin: 08/28/24 10:26 Dose: 5 mg Pantoprazole Sodium (Pantoprazole 40 Mg Tab) 40 mg PO BID [facility] Stop: 09/21/24 20:59 Last Admin: 08/28/24 08:58 Dose: 40 mg Phenazopyridine HCl (Phenazopyridine Hcl 200 Mg Tab) 200 mg PO Q8H PRN PRN Reason: pain Stop: 09/21/24 18:36 Last Admin: 08/25/24 02:30 Dose: 200 mg Polyethylene Glycol (Polyethylene (Miralax) 17 Gm Pack) 17 gm PO DAILY [facility] Stop: 09/21/24 20:28 Last Admin: 08/28/24 08:48 Dose: Not Given Prazosin HCl (Prazosin Hcl 1 Mg Cap) 2 mg PO HS [facility] Stop: 09/21/24 20:59 Last Admin: 08/27/24 19:45 Dose: 2 mg Sodium Biphosphate/Sodium Phosphate (Sod Phosphate/Sod Biphosphate Enema 132 Ml Btl) 132 ml CA DAILY PRN PRN Reason: Constipation Stop: 09/21/24 20:28 Sucralfate (Sucralfate 1 Gm Tab) 1 gm PO QID [facility] Stop: 09/21/24 20:59 Last Admin: 08/28/24 12:07 Dose: Not Given Sumatriptan Succinate (Sumatriptan Succinate 25 Mg Tab) 25 mg PO BID PRN PRN Reason: Migraine Headache Stop: 09/22/24 13:01 Last Admin: 08/28/24 08:54 Dose: 25 mg Topiramate (Topiramate 50 Mg Tab) 50 mg PO BID [facility] Stop: 09/21/24 20:59 Last Admin: 08/28/24 08:57 Dose: 50 mg Trazodone HCl (Trazodone Hcl 100 Mg Tab) 100 mg PO HS [facility] Stop: 09/21/24 20:59 Last Admin: 08/27/24 19:34 Dose: Not Given Vibegron (Vibegron 75 Mg Tab) 75 mg PO DAILY [facility] Stop: 09/22/24 08:59 Last Admin: 08/28/24 08:55 Dose: 75 mg Vitamin D (Cholecalciferol 25 Mcg (1000 Units) Tab) 25 mcg PO QAM [facility] Stop: 09/22/24 08:59 Last Admin: 08/28/24 09:01 Dose: 25 mcg (3) Hypertension Hypertension type: unspecified Qualified Code(s): I10 - Essential (primary) hypertension (5) Bipolar disorder Active/Remission status: remission status unspecified Qualified Code(s): F31.9 - Bipolar disorder, unspecified
[2024-08-28] MEDS: diphenhydrAMINE 50 MG/ML VIAL IV STA (15:14)
[2024-08-28] MEDS: BENZONATATE 100 MG CAPSULE PO PRN (20:13)
[2024-08-29 07:13] LABS: Hematocrit (blood only) 34.6 % (37.0-47.0); Hemoglobin 11.1 g/dl (12.0-16.0); Mean Corpuscular Hemoglobin 26.7 pg (25.0-34.0); Mean Corpuscular Hgb Conc 32.1 g/dL (32.0-36.0); Mean Corpuscular Volume 83.2 fL (80.0-100.0); Platelet Count 244 K/uL (130-400); RDW Coefficient of Variation 23.9 % (11.5-14.5); RDW Standard Deviation 71.2 fL (36.4-46.3); Red Blood Count 4.16 M/uL (4.20-5.40); White Blood Count 5.52 K/ul (4.8-10.8)
[2024-08-29 07:30] LABS: BUN Creatinine Ratio 17.2 (10-20); Calcium 8.9 mg/dl (8.6-10.3); Creatinine Clr Calc Pharmacy 115.1 ml/min; Magnesium 1.9 mg/dl (1.7-2.4); Phosphorus 3.3 mg/dl (2.5-4.9); Potassium 3.6 mmol/L (3.5-5.1)
--- NOTE | 2024-08-29 08:05 | Hospitalist Progress Note ---
Date of Service August 29, 2024 Assessment & Plan (1) Recurrent UTI: (2) Chronic suprapubic catheter: Plan: Gricel Mancini is a medically complex 38y/o F with extensive PMHx including spina bifida, spastic diplegic cerebral palsy with baseline restricted mobility, chronic indwelling suprapubic catheter due to neurogenic bladder, history of recurrent UTIs, bladder spasms, asthma, GERD without esophagitis, IBS with both constipation and diarrhea, vitamin D deficiency, morbid obesity, intestinal postoperative nonabsorption s/p gastric bypass in 2021, vitamin B12 deficiency, congenital hypoplasia of left femur, osteoarthritis of left hip, chronic pain syndrome, migraines, iron deficiency anemia, JOSE, PTSD, bipolar disorder and 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 Previously seen in the [facility] ED on 08/19/24 due to suprapubic abdominal pain and right flank pain. Extensive history of recurrent UTIs. UA at that time revealed 2+ leukocyte esterase, 11-20 WBC and 1+ bacteria; urine culture grew Enterococcus faecalis and she was discharged home on a course of Macrobid. She was made aware of the urine culture results above earlier today. Noticed minimal improvement in her suprapubic abdominal pain and right flank pain since last being seen in the ED therefore she was told to come back into the ED for further evaluation. Due for suprapubic catheter exchange on 08/27/24. She is requesting to have this changed sooner if possible. Appreciate urology consult - Suprapubic catheter was exchanged. Pt continued to have pain. Now seems improved. UA with trace leukocyte esterase, 6-10 WBC and 2+ bacteria. CTAP grossly unremarkable with no identifiable acute process. Initial laboratory evaluation reviewed. No leukocytosis. Procalcitonin negative. Lactate negative. No evidence of sepsis on admission. S/p dose of IV ampicillin in ED. which is continued Ucultx positive for E. faecalis Cont. IV ampicillin Follow blood cultures. blood cultx negat. for 48 hrs ID consult given recurrent UTIs - cont. IV ampicillin, plan for 7 days. may not have po option. 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 Can continue home antihypertensive regimen. Routine BP monitoring. (4) Bladder spasms: Plan: Continue Myrbetriq, Ditropan XL, prazosin and tolterodine. Notes increased bladder spasms as of lately. Appreciate urology input in this regard. (5) Bipolar disorder: (6) JOSE (generalized anxiety disorder): (7) PTSD (post-traumatic stress disorder): Plan: Chronic, stable. Continue home psychiatric medication regimen. (8) Spastic diplegic cerebral palsy: Plan: Has rotating caretakers at home to assist her throughout the day with ambulation/ADLs. Will continue home baclofen and PRN cyclobenzaprine for muscle spasms. Mostly wheelchair bound at baseline but able to pivot with transfers. (9) Chronic pain syndrome: Plan: On PRN oxycodone therapy at home. She is requesting to continue this. Noted constipation on CTAP. Will start on routine bowel regimen. Suspect opioid- induced constipation. Other Chronic Medical Conditions: Asthma - Stable, no acute exacerbation. GERD/Migraine - Can continue home meds for these specific conditions. 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 Code Status: FULL CODE PCP: Sarah Saavedra PA-C Disposition: med/telemetry for further inpatient evaluation and management. Admission and Anticipated Discharge Date Admission Date: August 22, 2024 Subjective Pt seen in follow up of recurrent UTIs, SPC, bladder spasms Currently lying in bed in NAD, reports recurring migraine, nasal congestion catheter was exchanged no chest pain, shortness of breath ID consulted - cont. IV abx Review of Systems Review of Systems: All systems reviewed & are unremarkable except as noted in Subjective Physical Exam Physical Exam: Gen: A&O 3 NAD HEENT: NCAT, EOMI Neck: Supple Lungs: No Respiratory distress.decreased breath sounds CV: RRR, no edema. Abdomen: suprapubic catheter site noted (catheter was already exchanged) Skin: warm, dry Neuro: chronic spasticity and weakness in bilateral LE, mild contractures in bilateral UE Psych: Appropriate for situation. Results & Data Results & Data Vital Signs (Past 12 Hours) Vital Signs Temp Pulse Resp BP Pulse Ox O2 Del Method 08/29/24 07:31 36.6 C 64 16 133/78 98 Room Air Laboratory Results 08/29/24 Range/Units 06:38 WBC 5.52 (4.8-10.8) K/ul RBC 4.16 L (4.20-5.40) M/uL Hgb 11.1 L (12.0-16.0) g/dl Hct 34.6 L (37.0-47.0) % MCV 83.2 (80.0-100.0) fL MCH 26.7 (25.0-34.0) pg MCHC 32.1 (32.0-36.0) g/dL RDW Std Deviation 71.2 H (36.4-46.3) fL RDW Coeff of Jerald 23.9 H (11.5-14.5) % Plt Count 244 (130-400) K/uL MPV 10.0 (9.4-12.4) fL Sodium 140 (136-145) mmol/L Potassium 3.6 (3.5-5.1) mmol/L Chloride 110 H (98-107) mmol/L Carbon Dioxide 23 (21-32) mmol/L Anion Gap 7 (3-11) BUN 10 (6-23) mg/dl Creatinine 0.58 L (0.6-1.2) mg/dl Est Cr Clr Drug Dosing 115.1 ml/min eGFR 118.72 BUN/Creatinine Ratio 17.2 (10-20) Glucose 84 (70-99(Fasting)) mg/dl Calcium 8.9 (8.6-10.3) mg/dl Phosphorus 3.3 (2.5-4.9) mg/dl Magnesium 1.9 (1.7-2.4) mg/dl Medications Administered Current Inpatient Medications Acetaminophen (Acetaminophen 325 Mg Tab) 650 mg PO Q4H PRN PRN Reason: Pain or Fever Stop: 09/21/24 20:28 Last Admin: 08/28/24 13:31 Dose: 650 mg Albuterol (Albut/Ipratrop 3mg/0.5mg Neb 3 Ml Vial) 3 ml NEB Q6R PRN; Protocol PRN Reason: Wheezing Stop: 09/26/24 15:16 Last Admin: 08/28/24 07:32 Dose: 3 ml Apixaban (Apixaban 5 Mg Tablet) 5 mg PO BID VAIBHAV Stop: 09/21/24 20:59 Last Admin: 08/28/24 19:46 Dose: 5 mg Baclofen (Baclofen 20 Mg Tab) 20 mg PO TID [facility] Stop: 09/21/24 20:59 Last Admin: 08/28/24 19:47 Dose: 20 mg Benzonatate (Benzonatate 100 Mg Capsule) 100 mg PO TID PRN PRN Reason: cough Stop: 09/27/24 20:59 Last Admin: 08/28/24 20:13 Dose: 100 mg Bisacodyl (Bisacodyl 10 Mg Supp) 10 mg GA DAILY PRN PRN Reason: Constipation Stop: 09/21/24 20:28 Buspirone HCl (Buspirone 7.5 Mg Tab) 7.5 mg PO BID [facility] Stop: 09/21/24 20:59 Last Admin: 08/28/24 19:48 Dose: 7.5 mg Calcium Carbonate (Calcium Carbonate 500 Mg Chewable Tab) 500 mg PO BID PRN PRN Reason: Heartburn Stop: 09/27/24 02:33 Last Admin: 08/28/24 02:47 Dose: 500 mg Cetirizine HCl (Cetirizine Hcl 10 Mg Tablet) 10 mg PO QAM [facility] Stop: 09/22/24 08:59 Last Admin: 08/28/24 08:56 Dose: 10 mg Cyclobenzaprine HCl (Cyclobenzaprine Hcl 10 Mg Tab) 10 mg PO BID PRN PRN Reason: Muscle Spasm Stop: 09/21/24 18:36 Last Admin: 08/26/24 19:52 Dose: 10 mg Dicyclomine HCl (Dicyclomine Hcl 10 Mg Cap) 10 mg PO QID PRN PRN Reason: Indigestion/Abd pain Stop: 09/21/24 18:36 Docusate Sodium (Docusate Sodium 100 Mg Cap) 100 mg PO BID [facility] Stop: 09/21/24 20:59 Last Admin: 08/28/24 20:13 Dose: 100 mg Famotidine (Famotidine 20 Mg Tab) 20 mg PO DAILY PRN PRN Reason: Acid Reflux Stop: 09/21/24 18:36 Last Admin: 08/28/24 00:36 Dose: 20 mg Fluoxetine HCl (Fluoxetine Hcl 20 Mg Cap) 60 mg PO QAM [facility] Stop: 09/22/24 08:59 Last Admin: 08/28/24 08:56 Dose: 60 mg Fluticasone Propionate (Fluticasone Propionate Na Spr 16 Gm Btl) 2 sprays NA QAM [facility] Stop: 09/22/24 08:59 Last Admin: 08/28/24 09:02 Dose: 2 sprays Galcanezumab-gnlm (Galcanezumab-Gnlm 120 Mg/Ml Syringe) 120 mg SQ TODAY@1400 VAIBHAV Stop: 09/27/24 13:59 Last Admin: 08/28/24 14:17 Dose: 120 mg Guaifenesin (Guaifenesin 600 Mg Tabcr) 600 mg PO Q12 VAIBHAV Stop: 09/23/24 13:24 Last Admin: 08/28/24 19:46 Dose: 600 mg Guaifenesin (Guaifenesin 600 Mg Tabcr) 600 mg PO Q12 VAIBHAV Stop: 09/24/24 20:59 Last Admin: 08/28/24 19:46 Dose: 600 mg Heparin Sodium (Porcine) (Heparin 100 Unit/Ml 5ml Flush) 5 ml FLUSH PRN PRN PRN Reason: Flush Stop: 09/23/24 03:23 Last Admin: 08/29/24 02:38 Dose: 5 ml Hydroxyzine HCl (Hydroxyzine Hcl 25 Mg Tab) 50 mg PO TID PRN PRN Reason: Anxiety Stop: 09/21/24 18:36 Last Admin: 08/27/24 22:27 Dose: 50 mg Ampicillin Sodium 2,000 mg/ (Sodium Chloride) 100 mls @ 200 mls/hr IV Q6H VAIBHAV Stop: 09/01/24 20:59 Last Infusion: 08/29/24 02:37 Dose: Infused Lactobacillus Acidophilus (Advanced Probiotic 625 Mg Capsule) 1,250 mg PO DAILY VAIBHAV Stop: 09/22/24 08:59 Last Admin: 08/28/24 08:48 Dose: Not Given Linaclotide (Linaclotide 145 Mcg Capsule) 145 mcg PO DAILY VAIBHAV Stop: 09/25/24 08:59 Last Admin: 08/28/24 08:59 Dose: Not Given Losartan Potassium (Losartan Potassium 25 Mg Tab) 25 mg PO QAM VAIBHAV Stop: 09/22/24 08:59 Last Admin: 08/28/24 09:02 Dose: 25 mg Lurasidone HCl (Lurasidone Hcl 20 Mg Tab) 40 mg PO Q24H [facility] Stop: 09/23/24 16:59 Last Admin: 08/28/24 17:18 Dose: 40 mg Magnesium Citrate (Magnesium Citrate 296 Ml/Btl) 50 ml PO DAILY PRN PRN Reason: No BM w/in 48 hours Stop: 09/21/24 20:28 Magnesium Hydroxide (Magnesium Hydroxide Susp 30 Ml Udc) 30 ml PO Q12H PRN PRN Reason: Constipation Stop: 09/21/24 20:28 Multivitamins/Minerals (Cerovite Adv Formula Tab) 1 tab PO QAM [facility] Stop: 09/22/24 08:59 Last Admin: 08/28/24 08:48 Dose: Not Given Nystatin (Nystatin Powder 15gm Btl) 1 appln EXT BID [facility] Stop: 09/23/24 10:50 Last Admin: 08/28/24 19:46 Dose: 1 appln Nystatin/Triamcinolone Acetonide (Nystatin/Triamcin Cr 15 Gm Tube) 1 appln EXT BID PRN PRN Reason: Itching Stop: 09/25/24 13:05 Ondansetron HCl (Ondansetron Inj 2 Mg/Ml 2 Ml Vial) 4 mg IV Q6H PRN PRN Reason: Nausea Stop: 09/21/24 20:28 Last Admin: 08/29/24 07:28 Dose: 4 mg Oxybutynin Chloride (Oxybutynin Chloride Xl 5 Mg Tabcr) [facility] [place] Stop: 09/22/24 08:59 Last Admin: 08/28/24 08:58 Dose: 5 mg Oxybutynin Chloride (Oxybutynin Chloride 5 Mg Tab) 5 mg PO Q8H PRN PRN Reason: bladder spasms Stop: 09/21/24 18:36 Last Admin: 08/28/24 19:45 Dose: 5 mg Oxycodone HCl (Oxycodone Hcl Ir 5 Mg Tab (Immediate Release)) 5 mg PO Q4H PRN PRN Reason: Severe Pain (Scale Score 7-10) Stop: 09/05/24 18:36 Last Admin: 08/29/24 04:34 Dose: 5 mg Pantoprazole Sodium (Pantoprazole 40 Mg Tab) 40 mg PO BID [facility] Stop: 09/21/24 20:59 Last Admin: 08/28/24 19:48 Dose: 40 mg Phenazopyridine HCl (Phenazopyridine Hcl 200 Mg Tab) 200 mg PO Q8H PRN PRN Reason: pain Stop: 09/21/24 18:36 Last Admin: 08/25/24 02:30 Dose: 200 mg Polyethylene Glycol (Polyethylene (Miralax) 17 Gm Pack) 17 gm PO DAILY VAIBHAV Stop: 09/21/24 20:28 Last Admin: 08/28/24 08:48 Dose: Not Given Prazosin HCl (Prazosin Hcl 1 Mg Cap) 2 mg PO HS VAIBHAV Stop: 09/21/24 20:59 Last Admin: 08/28/24 19:47 Dose: 2 mg Sodium Biphosphate/Sodium Phosphate (Sod Phosphate/Sod Biphosphate Enema 132 Ml Btl) 132 ml GA DAILY PRN PRN Reason: Constipation Stop: 09/21/24 20:28 Sucralfate (Sucralfate 1 Gm Tab) 1 gm PO QID VAIBHAV Stop: 09/21/24 20:59 Last Admin: 08/28/24 19:42 Dose: Not Given Sumatriptan Succinate (Sumatriptan Succinate 25 Mg Tab) 25 mg PO BID PRN PRN Reason: Migraine Headache Stop: 09/22/24 13:01 Last Admin: 08/28/24 08:54 Dose: 25 mg Topiramate (Topiramate 50 Mg Tab) 50 mg PO BID VAIBHAV Stop: 09/21/24 20:59 Last Admin: 08/28/24 19:45 Dose: 50 mg Trazodone HCl (Trazodone Hcl 100 Mg Tab) 100 mg PO HS [facility] Stop: 09/21/24 20:59 Last Admin: 08/28/24 19:41 Dose: Not Given Vibegron (Vibegron 75 Mg Tab) 75 mg PO DAILY VAIBHAV Stop: 09/22/24 08:59 Last Admin: 08/28/24 08:55 Dose: 75 mg Vitamin D (Cholecalciferol 25 Mcg (1000 Units) Tab) 25 mcg PO QAM VAIBHAV Stop: 09/22/24 08:59 Last Admin: 08/28/24 09:01 Dose: 25 mcg (3) Hypertension Hypertension type: unspecified Qualified Code(s): I10 - Essential (primary) hypertension (5) Bipolar disorder Active/Remission status: remission status unspecified Qualified Code(s): F31.9 - Bipolar disorder, unspecified
[2024-08-29] MEDS: PROCHLORPERAZINE 10 MG in SYRINGE 8 ML IV ONE ×2 (10:29→16:16)
[2024-08-29] MEDS: diphenhydrAMINE 50 MG/ML VIAL IV STA ×2 (10:29→15:31)
[2024-08-29] MEDS: MAGNESIUM SULFATE / D5W 1 GM/100 ML BAG IV ONE (15:31)
[2024-08-29] MEDS: POTASSIUM CHLORIDE CRTAB 20 MEQ TABCR PO STA (15:35)
[2024-08-29 19:18] VITALS: O2SAT 94
[2024-08-30 07:35] VITALS: RESP 18; TEMP 98.4
[2024-08-30] MEDS: POTASSIUM CHLORIDE CRTAB 20 MEQ TABCR PO STA ×2 (10:29→10:50)
[2024-08-30] MEDS ORDERED: Nursing to Pharmacy Communication SCH (10:30)
[2024-08-30] MEDS: diphenhydrAMINE 50 MG/ML VIAL IV STA (10:30)
[2024-08-30] MEDS: PROCHLORPERAZINE 10 MG in SYRINGE 8 ML IV ONE (10:33)
--- NOTE | 2024-08-30 11:01 | Discharge Summary ---
Date of Service August 30, 2024 Admission HPI Per Admitting Provider Gricel Mancini is a medically complex 38y/o F with extensive PMHx including spina bifida, spastic diplegic cerebral palsy with baseline restricted mobility, chronic indwelling suprapubic catheter due to neurogenic bladder, history of recurrent UTIs, bladder spasms, asthma, GERD without esophagitis, IBS with both constipation and diarrhea, vitamin D deficiency, morbid obesity, intestinal postoperative nonabsorption s/p gastric bypass in 2021, vitamin B12 deficiency, congenital hypoplasia of left femur, osteoarthritis of left hip, chronic pain syndrome, migraines, iron deficiency anemia, JOSE, PTSD, bipolar disorder and 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 History obtained from the patient, discussion with ED provider and associated chart review. Patient seen at bedside in the ED with Dr. Edwards. Patient was previously seen in the [facility] ED on 08/19/24 due to suprapubic abdominal pain and right flank pain. Extensive history of recurrent UTIs. UA at that time revealed 2+ leukocyte esterase, 11-20 WBC and 1+ bacteria; urine culture grew Enterococcus faecalis sensitive to ampicillin, daptomycin, gentamicin, tetracycline and vancomycin. She was prescribed a course of Macrobid per pharmacy's recommendation upon discharge from the ED at that time which she notes compliance with taking since being home. She was made aware of the urine culture results above earlier today. Noticed minimal improvement in her suprapubic abdominal pain and right flank pain since last being seen in the ED on 08/19/24, therefore she was told to come back into the ED for further evaluation. Has chronic bladder spasms although notes these seem to have increased in frequency over the past few days. Endorses low-grade fever yesterday but none today. Has chronic drainage from the site where her suprapubic catheter is inserted which is unchanged in coloration. Has not notic ed any erythema surrounding her suprapubic catheter insertion site. Feels her urine output may be slightly decreased however denies any hematuria or changes in her appetite. Does occasionally become nauseated when she has UTIs but no recent episodes of vomiting. Denies any chest pain or SOB. She is on Eliquis given her history of DVT/PE. Endorses compliance with her home medications. She is also on chronic oxycodone therapy as needed for chronic pain syndrome. Follows with Dr. Brian Schafer, physical medicine and rehabilitation physician from [facility]. No tobacco or alcohol use. No recreational drug use. Restricted mobility at baseline. Can stand and pivot but mostly wheelchair bound. Primary urologist is Dr. Johnny Olmos. Due for suprapubic catheter exchange on 08/27/24. She is requesting to have this changed sooner if possible. Initial laboratory evaluation reviewed. No leukocytosis. Hemoglobin stable. Procalcitonin negative. Respiratory BioFire panel negative. UA with trace leukocyte esterase, 6-10 WBC and 2+ bacteria. Urine and blood cultures pending. CTAP grossly unremarkable with no identifiable acute process; does though note moderate to large amount of stool within the colon. Admission Exam Per Admitting Provider Gen: A&O 3 NAD HEENT: NCAT, EOMI, not icteric. External ears normal. No rhinorrhea. Moist mucous membranes. Neck: Supple, full range of motion, no observable masses, No meningeal sign. Lungs: No Respiratory distress. CV: RRR, no edema. Abdomen: suprapubic catheter site clean MSK: No joint swelling, no redness. Skin: No rashes, petechiae, lesions. Normal color per patient. Neuro: chronic spasticity and weakness in bilateral LE, mild contractures in bilateral UE Psych: Appropriate for situation. Principal Diagnosis Recurrent UTI, suprapubic catheter migraine headache Discharge Exam Gen: A&O 3 NAD HEENT: NCAT, EOMI Neck: Supple Lungs: No Respiratory distress.decreased breath sounds CV: RRR, no edema. Abdomen: suprapubic catheter site noted (catheter was already exchanged) Skin: warm, dry Neuro: chronic spasticity and weakness in bilateral LE, mild contractures in bilateral UE Psych: Appropriate for situation. Discharge Data Allergies Allergy/AdvReac Type Severity Reaction Status Date / Time aripiprazole [From Abilify] Allergy Severe "Couldn't Verified 08/19/24 17:06 breathe" aztreonam Allergy Severe Dyspnea Verified 08/19/24 17:06 Beta-Blockers Allergy Severe "Couldn't Verified 08/19/24 17:06 (Beta-Adrenergic Bloc breathe" Gadolinium-Containing Allergy Severe Swelling Verified 08/19/24 17:06 Contrast Medi of Lip/Tongue/Throat hydrocodone Allergy Severe Hives Verified 08/19/24 17:06 lithium Allergy Severe Unconscious, Verified 08/19/24 17:06 unresponsive meperidine Allergy Severe Respiratory Verified 08/19/24 17:06 distress propranolol Allergy Severe Anaphylaxis Verified 08/19/24 17:06 verapamil Allergy Severe "Cant Verified 08/19/24 17:06 breathe" fexofenadine Allergy Intermediate Hives Verified 08/19/24 17:06 linezolid Allergy Intermediate Dyspnea Verified 08/19/24 17:06 propoxyphene Allergy Intermediate Hives Verified 08/19/24 17:06 Sulfa (Sulfonamide Allergy Intermediate Dyspnea Verified 08/19/24 17:06 Antibiotics) ketorolac Allergy Mild Itchy Verified 08/19/24 17:06 latex Allergy Mild contact Verified 08/19/24 17:06 dermatitis neomycin Allergy Mild Itchy Verified 08/19/24 17:06 tetracycline Allergy Unknown Unknown Verified 08/19/24 17:06 Iodinated Contrast Media Allergy Itching Verified 08/19/24 17:06 Consultations 08/22/24 17:13 ED Decision to Admit Stat 08/22/24 18:11 Consult Infectious Diseases Routine 08/22/24 18:11 Consult Urology Routine 08/26/24 08:35 Consult Gynecology Routine Ordered Studies 08/22/24 13:42 CT abd pelvis IV con only Stat FINDINGS: No pneumatosis, free air or portal venous gas is present. There is no biliary ductal dilatation status post cholecystectomy. Spleen, adrenal glands and kidneys are unremarkable with the exception of a 1.1 cm fat-containing left renal lesion consistent with an angiomyolipoma. Nephrograms are symmetric. There is no hydronephrosis. There are no urinary calculi. A suprapubic catheter is in place. There is trace gas within the bladder. There is no evidence for a bowel obstruction. There is a moderate to large amount stool within the colon. A small amount of stool within the rectum is present. There is no lymphadenopathy. There are no fluid collections. Major vasculature is patent. Postoperative is within the lumbar spine are unchanged. Status post Mark-en-Y gastric bypass. IMPRESSION: 1. No acute process within the abdomen or pelvis. 2. No CT evidence for acute pyelonephritis. No urinary calculi or hydronephrosis. Suprapubic catheter in place. 3. Moderate to large amount of stool within the colon. Hospital Course (1) Recurrent UTI: (2) Chronic suprapubic catheter: Gricel Mancini is a medically complex 38y/o F with extensive PMHx including spina bifida, spastic diplegic cerebral palsy with baseline restricted mobility, chronic indwelling suprapubic catheter due to neurogenic bladder, history of recurrent UTIs, bladder spasms, asthma, GERD without esophagitis, IBS with both constipation and diarrhea, vitamin D deficiency, morbid obesity, intestinal postoperative nonabsorption s/p gastric bypass in 2021, vitamin B12 deficiency, congenital hypoplasia of left femur, osteoarthritis of left hip, chronic pain syndrome, migraines, iron deficiency anemia, JOSE, PTSD, bipolar disorder and 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 Previously seen in the [facility] ED on 08/19/24 due to suprapubic abdominal pain and right flank pain. Extensive history of recurrent UTIs. UA at that time revealed 2+ leukocyte esterase, 11-20 WBC and 1+ bacteria; urine culture grew Enterococcus faecalis and she was discharged home on a course of Macrobid. She was made aware of the urine culture results above earlier today. Noticed minimal improvement in her suprapubic abdominal pain and right flank pain since last being seen in the ED therefore she was told to come back into the ED for further evaluation. Due for suprapubic catheter exchange on 08/27/24. She is requesting to have this changed sooner if possible. Appreciate urology consult - Suprapubic catheter was exchanged. Pt continued to have pain. Now seems improved. UA with trace leukocyte esterase, 6-10 WBC and 2+ bacteria. CTAP grossly unremarkable with no identifiable acute process. Initial laboratory evaluation reviewed. No leukocytosis. Procalcitonin negative. Lactate negative. No evidence of sepsis on admission. S/p dose of IV ampicillin in ED. which is continued Ucultx positive for E. faecalis Cont. IV ampicillin Follow blood cultures. blood cultx negat. for 48 hrs ID consult given recurrent UTIs - cont. IV ampicillin, plan for 7 days - abx course finished Vaginal pain Says she has hx of yeast infection , that is persistent Discussed w RN - obtained culture - light normal marysol Mesh Man consulted - follow up in robot designer office when discharged for management of chronic vaginitis and vaginal pain (3) Hypertension: Normotensive on admission. Can continue home antihypertensive regimen. Routine BP monitoring. (4) Bladder spasms: Continue Myrbetriq, Ditropan XL, prazosin and tolterodine. Notes increased bladder spasms as of lately. Appreciate urology input in this regard. (5) Bipolar disorder: (6) JOSE (generalized anxiety disorder): (7) PTSD (post-traumatic stress disorder): Chronic, stable. Continue home psychiatric medication regimen. (8) Spastic diplegic cerebral palsy: Has rotating caretakers at home to assist her throughout the day with ambu lation/ADLs. Will continue home baclofen and PRN cyclobenzaprine for muscle spasms. Mostly wheelchair bound at baseline but able to pivot with transfers. (9) Chronic pain syndrome: On PRN oxycodone therapy at home. She is requesting to continue this. Noted constipation on CTAP. Will start on routine bowel regimen. Suspect opioid- induced constipation. Other Chronic Medical Conditions: Asthma - Stable, no acute exacerbation. GERD/Migraine - Can continue home meds for these specific conditions. Total Time Total Time Spent Total Time Spent (In Minutes): 40 Discharge Plan Discharge Items Patient Disposition: Home - Self-Care Reason For Visit: RECURRENT UTI Discharge Diagnosis: Recurrent UTI, suprapubic catheter migraine headache Condition on Discharge: Good Activity: Per Instructions section Non-emergency contact: Primary Care Provider, Specialist, Neurologist and Urologist Call non-emergency contact if: you have any medication questions and your symptoms worsen Follow-up/Referrals: Maureen Bowie MD [Physician] - (Date & Time 10/03/2024 3:40 PM Provider: Maureen Bowie MD Neurology, [place] ) Radha Fuentes MD [Physician] - (Date & Time 09/18/2024 10:20 AM Provider: Radha Fuentes MD Infectious Disease, [facility] ) Sarah Saavedra PA-C [Primary Care Provider] - (Date & Time 08/30/2024 4:20 PM Provider: Sarah Saavedra PA-C [facility] ) Diet: Regular Addtl Attending Provider Instructions: Follow up with your health care providers - primary care doctor, urology, infectious disease, neurology. Also make sure to follow up with gynecology. Pending Studies at Discharge: No Stand-Alone Forms: My [facility], Smoking Cessation Medications and DC Order Prescriptions: New Advanced Probiotic 625 mg (10 billion cell) Capsule 1 cap PO DAILY Qty: 7 0RF guaifenesin [Mucinex] 600 mg Tablet Extended Release 12hr 600 mg PO Q12 Qty: 10 0RF Continued oxybutynin chloride 5 mg tablet 5 mg PO Q8H PRN (Reason: bladder spasms) Qty: 90 1RF topiramate 50 mg tablet 50 mg PO BID famotidine 20 mg tablet 20 mg PO DAILY PRN (Reason: Acid Reflux) baclofen 20 mg Tablet 20 mg PO TID cetirizine [Zyrtec] 10 mg Tablet 10 mg PO QAM hydroxyzine HCl 50 mg Tablet 50 mg PO TID PRN (Reason: Anxiety) prochlorperazine maleate [Compazine] 10 mg Tablet 10 mg PO Q8H PRN (Reason: Nausea) polyethylene glycol 3350 [Miralax] 17 gram/dose Powder 17 g PO BID PRN (Reason: Constipation) albuterol sulfate [Ventolin HFA] 90 mcg/actuation Hfa Aerosol Inhaler 2 puff INHALATION QID PRN (Reason: Shortness Of Breath) cyclobenzaprine 10 mg tablet 10 mg PO BID PRN (Reason: Muscle Spasm) Botox 100 unit recon soln 200 unit IM Q90D Patient Comments: EVERY 3 MONTHS last in september 2023 acetaminophen [Tylenol Extra Strength] 500 mg Tablet 1,000 mg PO Q6H PRN (Reason: Pain) lurasidone [Latuda] 40 mg Tablet 40 mg PO PM Rx Instructions: must administer with food (at least 350 calories) Eliquis 5 mg Tablet 5 mg PO BID docusate sodium [Colace] 100 mg Capsule 200 mg PO DAILY PRN (Reason: Constipation) cyanocobalamin (vitamin B-12) 1,000 mcg/mL Solution 1,000 mcg IM Q3M Patient Comments: every 3 months cholecalciferol (vitamin D3) [Vitamin D3] 25 mcg (1,000 unit) Tablet 25 mcg PO QAM losartan 25 mg tablet 25 mg PO QAM sucralfate 1 gram tablet 1 g PO QID ondansetron HCl 4 mg tablet 4 mg PO Q8H PRN (Reason: n/v) zolmitriptan 5 mg tablet 5 mg PO DIRECTED PRN (Reason: Migraine Headache) buspirone 7.5 mg tablet 7.5 mg PO BID fluoxetine 60 mg tablet 60 mg PO QAM Emgality Syringe 120 mg/mL Syringe 120 mg SUBCUT MONTHLY omeprazole 20 mg capsule,delayed release(DR/EC) 20 mg PO BID mirabegron [Myrbetriq] 50 mg tablet extended release 24 hr 50 mg PO QAM multivit with min-folic acid [Multivitamin Gummies] 200 mcg Tablet,Chewable 1 tab PO QAM loperamide 2 mg capsule 2 mg PO QID PRN (Reason: Diarrhea) prazosin 1 mg capsule 2 mg PO HS trazodone 100 mg tablet 100 mg PO HS fluticasone propionate 50 mcg/actuation spray,suspension 2 spray INTRANASAL QAM dicyclomine 10 mg capsule 10 mg PO QID PRN (Reason: Indigestion/Abd pain) oxycodone 5 mg tablet 5 mg PO Q4H PRN (Reason: Severe Pain (Scale Score 7-10)) nitrofurantoin monohyd/m-cryst [Macrobid] 100 mg capsule 100 mg PO BID 7 Days Qty: 14 0RF Rx Instructions: must administer with a meal/food tolterodine 2 mg capsule,extended release 24hr 2 mg PO QAM phenazopyridine [Pyridium] 200 mg tablet 200 mg PO Q8H PRN (Reason: pain) Qty: 10 0RF Discharge Orders: Discharge Order (Routine); Ordered 08/30/24 Ordered By: Ramiro Arnett Admission Data Admit Date/Time: 08/22/24 18:11 Attending Provider: Ramiro Arnett Admit Provider: Fabian Edwards Primary Care Provider: Sarah Saavedra Other Providers: Fabian Edwards; Nixon Davalos; Radha Fuentes; Tal Wilson I.; Benny Lee II; Diana Wise; Lawrence Lock; Danilo Conn; Miguel Ángel Contreras; Jose G Jonas; Yunior Orourke
[2024-08-30 12:33] VITALS: BP 142/84; PULSE 88
== END 2024-08-30 14:10 | disposition home or self-care (01) | DRG 690 ==
LOC: ED 13:18 → SUATTDRO 18:11 → EDINP 18:11 → 2N 20:30 → 3W 08-24 01:32